=== PATIENT | male | born 1960 | race Caucasian/White ===

== ENCOUNTER 2018-05-17 08:20 | Inpatient (IN) | payer MEDICAID, SELFPAY ==
[2018-05-17] VITALS (22 sets, daily range): BP systolic 118–176; BP diastolic 56–88; PULSE 43–91; RESP 16–23; TEMP 36.3–37.1; O2SAT 90–100; BMI 31.3
--- NOTE | 2018-05-17 08:39 | EKG12_ITS ---
Test Reason : SOB Blood Pressure : / mmHG Vent. Rate : 043 BPM Atrial Rate : 043 BPM P-R Int : 154 ms QRS Dur : 098 ms QT Int : 516 ms P-R-T Axes : 062 030 045 degrees QTc Int : 436 ms Marked sinus bradycardia with 2:[address] abnormality Abnormal ECG Confirmed by IMANI GILLILAND, RADHA ([id number]), story editor MACIEL FOLEY ([id number]) on 05/21/2018 1:29:59 PM Referred By: MIKALA Confirmed By:RADHA DIALLO MD
[2018-05-17] MEDS: Ipratropium/Albuterol Sulfate 3 ML AMPUL.NEB INHALATION (08:52)
[2018-05-17 08:58] LABS: Absolute Lymphocyte Count 1.37 X10^3/ul (0.83-4.51); Absolute Neutrophil Count 6.4 X10^3/uL (2.0-7.7); Basophil# 0.03 X10^3/uL; Basophil% 0.4 % (0-1); Eosinophil# 0.07 X10^3/uL; Eosinophils% 0.8 % (0-5); Hematocrit 31.2 % (40-54); Hemoglobin 11.1 g/dl (13.0-16.5); Lymphocyte # 1.37 X10^3/ul (4.0); Lymphocyte % 16.1 % (19-41); Mean Corp Hgb Conc 35.6 g/gl (32-36); Mean Corpuscular Hgb 31.3 pg (27.0-32.0); Mean Corpuscular Volume 87.9 fL (80-94); Mean Platelet Vol. 10.1 fl (6.2-12.0); Monocyte# 0.55 X10^3/uL; Monocyte% 6.5 % (0-10); Neutrophil # 6.41 X10^3/uL (2.7-7.7); Neutrophil % 75.4 % (47-70); POSITIVE COUNT NO; POSITIVE DIFFERENTIAL NO; POSITIVE MORPHOLOGY NO; Platelet Count 255 K/mm3 (150-450); RBC Distribution Width CV 11.5 % (11.6-14.6); RBC Distribution Width SD 37.2 fl (35.1-43.9); Red Blood Count 3.55 M/mm3 (4.6-6.2); White Blood Count 8.5 K/mm3 (4.4-11.0)
--- NOTE | 2018-05-17 09:10 | RAD_ITS ---
STUDY: X-RAY CHEST REASON FOR EXAM: Male, 57 years old. Dyspnea TECHNIQUE: PA and lateral views of the chest. COMPARISON: None. FINDINGS: Parenchymal airspace process of the right posterior lower lobe. Minimal blunting of the right costophrenic angle. There is mild cardiac enlargement. Normal mediastinum and sg. Mild central pulmonary vascular congestion and interstitial densities suggesting chronic CHF. EKG leads project over the chest. There is atherosclerotic calcification of the aortic arch with tortuosity. There are diffuse degenerative changes of the visualized thoracic spine. Old compression deformity of L1 is noted. There is no demonstrated abnormality of the visualized soft tissue structures of the upper abdomen. RAD/Chest PA and Lateral IMPRESSION: Right lower lobe airspace disease with trace effusion, suggesting pneumonia. Suspect underlying chronic CHF. Electronically Signed: Dylan Garrett MD at 9:28 EST , Service support ,
[2018-05-17 09:19] LABS: Anion Gap 13 (5-15); BUN 21 mg/dL (7-18); BUN/Creat Ratio 15.3 RATIO (10-20); Calcium,Total 7.9 mg/dL (8.5-10.1); Chloride 82 mmol/L (98-107); Creatinine, Serum 1.37 mg/dL (0.70-1.30); EST Glomerular Filtration Rate 56 mL/min (>60); Est Glom Filt Rate - Afr Amer 68 mL/min (>60); Estimated Creatinine Clearance 65.61 ml/min; Glucose 127 mg/dL (74-106); Potassium 4.4 mmol/L (3.5-5.1); Sodium Level 115 mmol/L (136-145)
[2018-05-17 09:20] LABS: D-Dimer Quantitative (DVT/PE) 2.49 FEU/ug/m (0.27-0.49)
--- NOTE | 2018-05-17 09:23 | CT_ITS ---
STUDY: CTA CHEST REASON FOR EXAM: Male, 57 years old. Dyspnea RADIATION DOSAGE (If Supplied By Facility): CTDIvol = ( 18.38 ) mGy, DLP = ( 771.10 ) mGycm TECHNIQUE: The examination was performed with the intravenous administration of 100 ml of Isovue 370 contrast material. Post-processing of the angiographic images was performed, with multiplanar reformation and 3D reconstruction. Individualized dose optimization techniques were used for this CT. COMPARISON: None. FINDINGS: Normal enhancement of the main pulmonary artery and right and left pulmonary arteries. Normal enhancement of the bilateral peripheral pulmonary arteries. There is no demonstrated pulmonary embolism. Mild atherosclerosis without evidence of aneurysm. There is no demonstrated aortic dissection. There is mild cardiomegaly. There are calcifications of the coronary arteries. Normal mediastinum. Mildly prominent lymph nodes of the right hilum likely reactive with largest lymph node measuring 1.4 cm in short axis. There is peribronchial thickening. The lungs are well expanded. There is airspace consolidation involving the right lower lobe, as suggested on x-ray from earlier today. Minimal reticulation and opacity in the posterior left lower lobe may represent atelectasis versus localized pneumonitis/infection. No cavitating process. Small right and trace left pleural effusions are demonstrated. Normal chest wall structures. There are degenerative changes of thoracic spine. Normal visualized upper abdomen. CT/CTA Chest W/WO Contrast IMPRESSION: 1. No central or segmental pulmonary embolism. 2. Right more than left lower lobe infiltrates compatible with pneumonia or localized pulmonary edema or atelectasis. 3. Small right and trace left pleural effusions. Mild cardiomegaly. Suspect chronic CHF. Electronically Signed: Dylan Garrett MD at 10:09 EST , Service support ,
[2018-05-17 09:29] LABS: BNP,B-Type NATRIURETIC PEPTIDE 555.8 pg/mL (0-100)
--- NOTE | 2018-05-17 10:31 | ED.DCSUM_ITS ---
- ER Visit Summary Date of Service: 05/17/18 Chief Complaint: [Shortness of breath] History of Present Illness: The patient is a 57 M [presents to the emergency department with worsening shortness of breath over the last 3 days. Patient states that he has been using his girlfriends inhaler without much relief. Patient's been coughing up some white phlegm at times. He is not had a fever. Patient did have travel to [place] by airplane around Nieves time. Patient denies any chest pain other than just some heaviness from his lungs and feeling like he cannot breathe. Patient does not have a history of asthma or COPD. Patient has not had CHF. He does have a history of diabetes and hypertension.] Physical Examination: [HEENT-PERRLA, EOMI. Cranial nerves II through XII grossly intact. TMs clear. Mucous membranes moist. No adenopathy. Patient is noted to have JVD. Cardiovascular-regular and bradycardic with heart rate in the 40s. No murmurs auscultated. Lungs-few rales noted in the bases. No accessory muscle use or retractions. No wheezing noted. Abdomen-normoactive bowel sounds, soft, nontender, no rebound or rigidity, no peritoneal signs. Extremities-intact ?4, normal range of motion, normal pulses, atraumatic. Patient has +2 edema both lower extremities but symmetric.] Test Results: [EKG obtained showed sinus tachycardia with a ventricular rate of 43 bpm with some nonspecific ST changes. CBC with differential showing of 8.5, hemoglobin 11, hematocrit 31, placed 255. Chemistry showed a sodium of 115, potassium 4.4, chloride 82, CO2 20, BUN 21, creatinine 1.37, glucose 127, d- dimer 2.49, troponin 0.034. Chest x-ray showed some cardiomegaly and suspected chronic CHF. Could not rule out pneumonia. Patient had a CTA given the elevated d-dimer which showed no evidence for PE and again was noted to have increased markings in both lungs and cannot rule out CHF versus pneumonia versus atelectasis.] Emergency Department Course and Treatment: [Given patient's hyponatremia and peripheral edema I suspect CHF as the etiology of his symptomatology.] Treatment Plan: [Admit for diuresis and further evaluation of CHF] Disposition: [Admit] Impression: [CHF Hypoxia Hyponatremia] This note was generated with Dragon dictation software. It may contain incorrect words, spelling, and punctuation that were not noted in review of the chart prior to signing ED Disposition - Plan for ED Patient: Referrals: Delgado Smith [Primary Care Provider] -
--- NOTE | 2018-05-17 10:59 | HP.PCM_ITS ---
Problem List (1) Dyspnea Status: Acute Qualifiers: Dyspnea type: dyspnea on exertion Qualified Code(s): R06.09 - Other forms of dyspnea (2) CHF (congestive heart failure) Status: Acute Qualifiers: Heart failure chronicity: unspecified (3) Essential hypertension Status: Chronic (4) DM2 (diabetes mellitus, type 2) Status: Chronic History of Present Illness Date of Admission: 05/17/18 Chief Complaint: Shortness of breath The patient is a 57 year old M past medical history significant for hypertension, diabetes mellitus type 2 who presented with shortness of breath. Patient symptoms started 4 days prior to his admission. He is noticed increasin g shortness of breath with minimal activity. Patient also did notice swelling involving both lower extremities. Patient did report noticing intermittent swelling involving both lower extremities. On further questioning patient denied any recent travel. Denies any fever no chills had a cough which is nonproductive. In view of worsening symptoms patient presented to the emergency department. She was found to have a an elevated d-dimer CTA of the chest obtained subsequently demonstrated Mo central or segmental pulmonary embolism. Right more than left lower lobe infiltrates compatible with pneumonia or localized pulmonary edema or atelectasis. Small right and trace left pleural effusions. Mild cardiomegaly. Patient was also found to be hyponatremic with sodium level of 127 admitted to a monitored bed for subsequent management. Past Medical History Past Medical History (Chronic Problems): Chronic Problems Essential hypertension (Chronic) DM2 (diabetes mellitus, type 2) (Chronic) Allergies Penicillins [PCN] Allergy (Verified 05/17/18 08:20) Unknown Home Medications: Ambulatory Orders Medication Instructions Recorded Amlodipine [Norvasc] 5 mg PO DAILY 05/17/18 Benazepril/Hydrochlorothiazide 1 each PO BID 05/17/18 [Benazepril-Hctz 10-12.5 mg Tab] Glimepiride [Amaryl] 2 mg PO DAILY 05/17/18 Smoking Status: Never smoker - *Family History Maternal History Items: Diabetes Review of Systems Constitutional: Denies: Anorexia, Chills, Fever, Night Sweats, Weight Change HEENT: Denies: Head Aches, Sinus Congestion, Sinus Drainage Cardiovascular: Reports: Edema. Denies: Chest Pain, Orthopnea Respiratory: Reports: Cough, Shortness of Breath Gastrointestinal: Denies: Abdominal Pain, Hematemesis, Hematochezia, Nausea, Melena, Vomiting Genitourinary: Denies: Dysuria, Frequency, Hematuria, Urgency Musculoskeletal: Denies: Joint Pain, Joint Tenderness Skin: Denies: Rash Neurological: Denies: Focal weakness, Numbness, Tingling Psychiatric: Denies: Homicidal Ideations, Suicidal Ideations Hematologic/ Lymphatic: Denies: Easy Bruising, Easy Bleeding VTE Information - Inpt Only VTE Present on Admission: No VTE Mechan Device Prophylaxis: Knee High OPAL Hose VTE Pharm Prophylaxis ordered?: Yes Patient Problems: Active and Suspected Problems Dyspnea (Acute) CHF (congestive heart failure) (Acute) Objective: GENERAL: cooperative HEENT: Atraumatic; moist oral mucosa EYES; Anicteric, Normal Conjunctiva NECK; supple, normal thyroid, RESPIRATORY: Diminished to auscultation bilaterally, CARDIOVASCULAR: Regular S1 S2, no audible murmurs GI: soft, non-tender, normoactive bowel sounds, : No Renal angle tenderness; EXTREMITIES: 1+ bipedal edema, no clubbing, no cyanosis. MUSCULOSKELETAL: No Joint Tenderness; NEURO: Awake; no lateralizing signs. SKIN: No Rash PSYCH; Normal affect - Physical Exam Vital Signs Temp Pulse Resp BP Pulse Ox 98.3 F 46 L 20 H 174/79 H 96 05/17/18 10:31 05/17/18 10:31 05/17/18 10:31 05/17/18 10:31 05/17/18 10:31 Oxygen Flow Rate (L/min) 4 Oxygen Delivery Method Nasal Cannula Weight: 107.8 kg Body Mass Index (BMI) 31.3 Laboratory Tests Past 24 Hrs 05/17/18 05/17/18 05/17/18 08:40 08:40 08:40 WBC 8.5 RBC 3.55 L Hgb 11.1 L Hct 31.2 L MCV 87.9 MCH 31.3 MCHC 35.6 RDW 11.5 L RDW Differential 37.2 Plt Count 255 MPV 10.1 Immature Gran % (Auto) 0.800 Neut % (Auto) 75.4 H Lymph % (Auto) 16.1 L [place] % (Auto) 6.5 Eos % (Auto) 0.8 Baso % (Auto) 0.4 Absolute Neuts (auto) 6.4 Absolute Lymphs (auto) 1.37 Total Counted Not Reportable D-Dimer Quant (PE/DVT) 2.49 H* Sodium 115 L* Potassium 4.4 Chloride 82 L Carbon Dioxide 20.0 L Anion Gap 13 BUN 21 H Creatinine 1.37 H Estim Creat Clear Calc 65.61 Est GFR (MDRD) Af Amer 68 Est GFR (MDRD) Non-Af 56 L BUN/Creatinine Ratio 15.3 Glucose 127 H Calcium 7.9 L Troponin I 0.034 B-Natriuretic Peptide 05/17/18 08:40 WBC RBC Hgb Hct MCV MCH MCHC RDW RDW Differential Plt Count MPV Immature Gran % (Auto) Neut % (Auto) Lymph % (Auto) [place] % (Auto) Eos % (Auto) Baso % (Auto) Absolute Neuts (auto) Absolute Lymphs (auto) Total Counted D-Dimer Quant (PE/DVT) Sodium Potassium Chloride Carbon Dioxide Anion Gap BUN Creatinine Estim Creat Clear Calc Est GFR (MDRD) Af Amer Est GFR (MDRD) Non-Af BUN/Creatinine Ratio Glucose Calcium Troponin I B-Natriuretic Peptide 555.8 H Assessment/Plan All Active Problems Dyspnea (Acute) CHF (congestive heart failure) (Acute) Patient is a 57-year-old gentleman presented with progressive shortness of breath and peripheral edema 1. Suspected acute congestive heart failure (unspecified at this point). Patient has been admitted to a monitored bed placed on strict input and output, daily weight, fluid restriction and IV Lasix. Echo ordered for EF assessment 2. Essential hypertension: In view of patient peripheral edema his amlodipine was held. Patient also had hyponatremia HCTZ held and did continue with lisinopril 3. Hyponatremia attributed to his fluid overload status as well as patient being on HCTZ. Patient has been placed on fluid restriction, Lasix and HCTZ held as a result 4. History of basal cell carcinoma involving the forehead as well as left cheek with previous excision 5. Diabetes mellitus type II: Controlled, patient's oral hypoglycemics held. Placed ON Accu-Cheks a.c. and at bedtime and covered with sliding scale insulin 6. DVT prophylaxis SC Lovenox Code Visit Inpatient E&M: 53936 Init Hosp L3
--- NOTE | 2018-05-17 11:22 | ECHOD_ITS ---
Reason For Study: CHF Procedure This was a 2D Doppler, Color Flow transthoracic echocardiogram. Exam performed portable in ICU/CCU. Left Ventricle Normal LV size. Moderate concentric left ventricular hypertrophy. Left ventricular systolic function is normal. The estimated ejection fraction is 65 %. Transmitral diastolic flow velocities suggest severe (stage 3) diastolic dysfunction. No regional wall motion abnormalities noted. Right Ventricle Normal RV size. Normal systolic function. Atria The left atrium is moderately enlarged. The right atrium is moderately enlarged. Mitral Valve There is mild mitral annular calcification. Mild (1+) eccentric mitral valve insufficiency. Tricuspid Valve Normal tricuspid valve. Unable to estimate RV systolic pressure due to inadequate jet, pulmonary artery pressure probably normal. Aortic Valve Trisinus/trileaflet aortic valve. Mild focal aortic valve calcification. Pulmonic Valve Normal pulmonic valve. Great Vessels Normal aortic root. The pulmonary artery is normal size. Normal inferior vena cava. Pericardium/Pleural No pericardial effusion. MMode/2D Measurements & Calculations LVIDd: 5.0 cm IVSd: 1.5 cm LVOT diam: 2.1 cm LVIDs: 3.1 cm LVPWd: 1.2 cm LVOT area: 3.4 cm2 RVDd: 4.5 cm FS: 38.5 % Ao root diam: 3.6 cm LAV(MOD-bp): 103.5 ml LA A4 area: 28.8 cm2 LA dimension: 4.9 cm LAV(MOD-bp) Indexed: 44.7 ml/m2 LAV(MOD-sp2): 100.3 ml LAV(MOD-sp4): 90.4 ml RA A4 area: 29.1 cm2 Time Measurements MV dec time: 0.20 sec Doppler Measurements & Calculations MV E max [place]: 186.1 cm/sec Lat Peak E' [place]: 13.6 cm/sec Med Peak E' [place]: 8.1 cm/sec MV A max [place]: 97.3 cm/sec E/E' lat: 13.7 E/E' med: 23.0 MV E/A: 1.9 Ao V2 max: 169.5 cm/sec LV V1 max: 142.3 cm/sec SV(LVOT): 109.2 ml Ao max P.5 mmHg LV V1 max P.1 mmHg Ao V2 mean: 106.2 cm/sec LV V1 mean P.6 mmHg Ao mean P.3 mmHg LV V1 mean: 86.6 cm/sec Ao V2 VTI: 33.9 cm LV V1 VTI: 32.2 cm ROSELINE(I,D): 3.2 cm2 ROSELINE(V,D): 2.8 cm2 PA V2 max: 103.8 cm/sec Interpretation Summary Normal LV size. Moderate concentric left ventricular hypertrophy. Left ventricular systolic function is normal. The estimated ejection fraction is 65 %. Transmitral diastolic flow velocities suggest severe (stage 3) diastolic dysfunction Mild focal aortic valve calcification. Ordering Physician: Ruslan Enciso Referring Physician: Delgado Smith Performed By: Victor Manuel South RCS
[2018-05-17 12:30] LABS: Magnesium 1.3 mg/dL (1.6-2.6); Thyroid Stim Hormone (TSH) 1.62 uIU/mL (0.358-3.74)
[2018-05-17] MEDS: Insulin Lispro 100 UNIT/ML INSULN.PEN SQ ×2 (12:31→21:10)
[2018-05-17 12:32] LABS: BNP,B-Type NATRIURETIC PEPTIDE 615.7 pg/mL (0-100)
[2018-05-17] MEDS: Furosemide 40 MG/4 ML Vial IV ×2 (12:32→21:10)
[2018-05-17 12:41] LABS: Bedside Glucose 158 mg/dL (70-110)
--- NOTE | 2018-05-17 15:23 | CM.UR ---
software developer intern completed. Met face to face with patient, introduced myself and explained my role. They were preparing to transfer him to ICU d/t heart block. He anticipated going home without any needs. Instructed cm will remain available and follow him throughout hosp stay for an needs that may arise. Currently on o2 and has no o2 at home. Manish Collier RN, CCM.
[2018-05-17] MEDS: Sodium Chloride 3% 500 ML 50 ML IV (15:44)
[2018-05-17 15:49] LABS: Anion Gap 13 (5-15); BUN 23 mg/dL (7-18); BUN/Creat Ratio 16.4 RATIO (10-20); Calcium,Total 7.8 mg/dL (8.5-10.1); Chloride 85 mmol/L (98-107); EST Glomerular Filtration Rate 55 mL/min (>60); Est Glom Filt Rate - Afr Amer 67 mL/min (>60); Estimated Creatinine Clearance 64.21 ml/min; Glucose 165 mg/dL (74-106); Potassium 4.5 mmol/L (3.5-5.1); Sodium Level 119 mmol/L (136-145)
--- NOTE | 2018-05-17 16:57 | CON.PCM_ITS ---
Problem List (1) Dyspnea Status: Acute Qualifiers: Dyspnea type: dyspnea on exertion Qualified Code(s): R06.09 - Other forms of dyspnea Reason for Consult Date of Consultation: 05/17/18 History of Present Illness: The patient is a 57 year old M past medical history significant for hypertension and diabetes mellitus. He presented to the emergency room with complaints of increasing shortness of breath over the last 2-3 days. According to the patient, he is also been having some cough with production of whitish phlegm. Has any fevers or chills. Denies any orthopnea however he does report some paroxysmal nocturnal dyspnea. Also complaining of increasing ankle edema. No cold or flulike symptoms. He denies any chest pains. He has occasional pressure with his shortness of breath. According to the patient, he has been feeling increasingly fatigued over the last 6 months. No heat or cold intolerance. Denies any exertional angina. [] Past Medical History Allergies/Adverse Reactions: Allergies Penicillins [PCN] Allergy (Verified 05/17/18 08:20) Unknown Home Medications: Ambulatory Orders Medication Instructions Recorded Amlodipine [Norvasc] 5 mg PO DAILY 05/17/18 Benazepril/Hydrochlorothiazide 1 each PO BID 05/17/18 [Benazepril-Hctz 10-12.5 mg Tab] Glimepiride [Amaryl] 2 mg PO DAILY 05/17/18 Past Medical History (Chronic Problems): Chronic Problems Essential hypertension (Chronic) DM2 (diabetes mellitus, type 2) (Chronic) - *Family History Maternal History Items: Diabetes Smoking Status: Never smoker Tobacco Use: Non-smoker, Secondhand Review of Systems - Review of Systems General: Reports: Fatigue. Denies: Fever, Chills, Weight Loss Cardiovascular: Reports: Chest Pressure, Shortness of Breath, Shortness of Breath at Rest, Shortness of Breath with Exertion, PND, Peripheral Edema. Denies: Orthopnea, Palpitations, Lightheadedness, Dizziness, Near Syncope, Syncope Respiratory: Reports: Cough, Shortness of Breath. Denies: Hemoptysis, Wheezing Gastrointestinal: Denies: Abdominal Discomfort, Jaundice, Nausea, Hematemesis Muscoloskeletal: Denies: Myalgias Skin: Denies: Rash Neurological: Denies: Dizziness, Vertigo, History of TIA, History of CVA Endocrine: Denies: Heat Intolerance, Cold Intolerance Hematologic/ Lymphatic: Denies: Easy Brusing, Easy Bleeding Subjectve: Appears comfortable. No apparent distress. Objective: Vital Signs Temp Pulse Resp BP Pulse Ox 98.5 F 55 L 19 H 173/70 H 92 05/17/18 15:45 05/17/18 16:30 05/17/18 16:30 05/17/18 16:30 05/17/18 16:30 Oxygen Flow Rate (L/min) 2 Oxygen Delivery Method Nasal Cannula Weight: 107.683 kg Body Mass Index (BMI) 31.3 Intake and Output for Last 24 Hours 05/15/18 05/16/18 05/17/18 23:59 23:59 23:59 Output Total 700 / 700 Balance -700 / -700 General: Healthy Appearing, Awake, Alert, Oriented x 3, No Acute Distress HEENT: Atraumatic, Normocephalic Oral: Moist Mucosa Neck: Positive JVD Lungs: Rales - Brian Bases Cardiovascular: Irregular Rhythm, Normal S1, Normal S2 Abdomen: Bowel Sounds Present, Soft, Non Tender Extremities: Bilateral Edema +3 Neurological: No Focal Motor or Sensory Deficit Psych/Mental Status: Appropriate 05/17/18 08:40: WBC 8.5, RBC 3.55 L, Hgb 11.1 L, Hct 31.2 L, MCV 87.9, MCH 31.3, MCHC 35.6, RDW 11.5 L, RDW Differential 37.2, Plt Count 255, MPV 10.1, Immature Gran % (Auto) 0.800, Neut % (Auto) 75.4 H, Lymph % (Auto) 16.1 L, [place] % (Auto) 6.5, Eos % (Auto) 0.8, Baso % (Auto) 0.4, Absolute Neuts (auto) 6.4, Total Counted Not Reportable 05/17/18 08:40: D-Dimer Quant (PE/DVT) 2.49 H* 05/17/18 08:40: Sodium 115 L*, Potassium 4.4, Chloride 82 L, Carbon Dioxide 20.0 L, Anion Gap 13, BUN 21 H, Creatinine 1.37 H, Est GFR (MDRD) Af Amer 68, Est GFR (MDRD) Non-Af 56 L, BUN/Creatinine Ratio 15.3, Glucose 127 H, Calcium 7.9 L, Troponin I 0.034 05/17/18 08:40: B-Natriuretic Peptide 555.8 H 05/17/18 11:51: Magnesium 1.3 L 05/17/18 11:51: B-Natriuretic Peptide 615.7 H 05/17/18 11:51: Troponin I 0.035 05/17/18 14:40: Troponin I 0.033 05/17/18 14:40: Sodium 119 L*, Potassium 4.5, Chloride 85 L, Carbon Dioxide 21.0, Anion Gap 13, BUN 23 H, Creatinine 1.40 H, Est GFR (MDRD) Af Amer 67, Est GFR (MDRD) Non-Af 55 L, BUN/Creatinine Ratio 16.4, Glucose 165 H, Calcium 7.8 L Rhythm: Normal sinus rhythm. Second-degree AV block type I [place]. EKG: Normal sinus rhythm with second-degree type I [place] AV block. Nonspecific ST changes ECHO: Stress Test: Cardiac Cath: PCI: CT Surgery: Holter monitor: EPS: PPM: CXR: Suggestive of chronic CHF. Also right-sided consolidation. Chest CT Scan: Right-sided consolidation. No PE. Assessment/Plan 1. Dyspnea. Multifactorial. CHF with possible pneumonia. Next 2. Congestive heart failure. Agree with diuresis. Echocardiogram already ordered. Further workup in light of echocardiographic results. 3. Sick sinus syndrome. Initial EKG in the emergency room showed second-degree AV block type II. However the conduction has improved to second-degree type I [place] block. Amlodipine could certainly cause conduction abnormalities. Stop amlodipine. Monitor. Check TSH. Correct electrolyte abnormalities. Avoid negative chronotropic agents. 4. Pneumonia. Both x-ray and CT scan suggestive of right-sided consolidation. Consider starting on antibiotics. Follow as per internal medicine. 5. Coronary artery disease. CT scan of the same chest shows coronary arterial calcifications. Start on aspirin. If the LV function is normal on echocardiography, then will recommend a stress test. However if the LV function is compromised, then will consider cardiac catheterization with coronary angiography. 6. Hypertension. Hold amlodipine. Agree with holding hydrochlorothiazide. St arted on furosemide. Monitor sodium. 7. Marked hyponatremia. Could be result of pneumonia versus fluid volume overload with congestive heart failure. Started on furosemide. Monitor potassium. 8. Diabetes mellitus. 9. Start on statins in view of coronary artery disease with coronary calcifications noted on CT scan of the chest. Target LDL cholesterol less than 100 mg/dL. 10. Mild renal insufficiency
--- NOTE | 2018-05-17 17:16 | EKG12_ITS ---
Test Reason : Blood Pressure : / mmHG Vent. Rate : 065 BPM Atrial Rate : 065 BPM P-R Int : 226 ms QRS Dur : 098 ms QT Int : 438 ms P-R-T Axes : 036 029 067 degrees QTc Int : 455 ms Sinus rhythm with 1st degree A-V block Otherwise normal ECG When compared with ECG of 18-MAY-2018 07:38, MANUAL COMPARISON REQUIRED, DATA IS UNCONFIRMED Confirmed by IMANI GILLILAND, RADHA ([id number]), editor dictionary MACIEL FOLEY ([id number]) on 05/21/2018 2:35:53 PM Referred By: Confirmed By:RADHA DIALLO MD
[2018-05-17 17:46] LABS: Bedside Glucose 141 mg/dL (70-110)
[2018-05-17 17:57] LABS: ALB/GLOB Ratio 0.8 RATIO (0.9-2.4); AST(SGOT) 43 U/L (15-37); Alanine Aminotransfer ALT/SGPT 35 U/L (16-61); Alkaline Phosphatase 109 U/L (45-117); Globulin 3.9 g/dL (2.2-4.2); Protein, Total 6.9 g/dL (6.4-8.2)
[2018-05-17] MEDS: Aspirin E.C. 81 MG Tablet PO (18:46)
[2018-05-17] MEDS: 0.9% NaCl Peripheral Flush Adult/Peds IV ×2 (18:46→21:11)
[2018-05-17 19:35] LABS: Anion Gap 10 (5-15); BUN 24 mg/dL (7-18); BUN/Creat Ratio 16.7 RATIO (10-20); Calcium,Total 7.8 mg/dL (8.5-10.1); Chloride 88 mmol/L (98-107); Creatinine, Serum 1.44 mg/dL (0.70-1.30); EST Glomerular Filtration Rate 53 mL/min (>60); Est Glom Filt Rate - Afr Amer 64 mL/min (>60); Estimated Creatinine Clearance 62.42 ml/min; Glucose 175 mg/dL (74-106); Potassium 4.4 mmol/L (3.5-5.1); Sodium Level 121 mmol/L (136-145)
[2018-05-17] MEDS: Lisinopril 5 MG Tablet PO (21:10)
[2018-05-17] MEDS: Atorvastatin Calcium 20 MG Tablet PO (21:10)
[2018-05-17 21:26] LABS: Bedside Glucose 160 mg/dL (70-110)
[2018-05-18] VITALS (35 sets, daily range): BP systolic 132–200; BP diastolic 42–91; PULSE 44–91; RESP 13–67; TEMP 36.8–37; O2SAT 84–98
[2018-05-18 00:06] LABS: Anion Gap 11 (5-15); BUN 23 mg/dL (7-18); BUN/Creat Ratio 18.3 RATIO (10-20); Calcium,Total 6.9 mg/dL (8.5-10.1); Chloride 98 mmol/L (98-107); Creatinine, Serum 1.26 mg/dL (0.70-1.30); EST Glomerular Filtration Rate 62 mL/min (>60); Est Glom Filt Rate - Afr Amer 75 mL/min (>60); Estimated Creatinine Clearance 71.34 ml/min; Glucose 104 mg/dL (74-106); Potassium 3.9 mmol/L (3.5-5.1); Sodium Level 130 mmol/L (136-145)
[2018-05-18 03:34] LABS: Hematocrit 27.8 % (40-54); Mean Corpuscular Volume 89.4 fL (80-94); Mean Platelet Vol. 10.3 fl (6.2-12.0); Platelet Count 247 K/mm3 (150-450); RBC Distribution Width CV 11.2 % (11.6-14.6); RBC Distribution Width SD 35.2 fl (35.1-43.9); Red Blood Count 3.11 M/mm3 (4.6-6.2); White Blood Count 9.3 K/mm3 (4.4-11.0)
[2018-05-18 03:48] LABS: Hemoglobin 10.2 g/dl (13.0-16.5); Mean Corp Hgb Conc 36.7 g/gl (32-36); Mean Corpuscular Hgb 32.8 pg (27.0-32.0); Scan Indicated on CBC? Y/N NO
[2018-05-18 03:57] LABS: Anion Gap 12 (5-15); BUN 25 mg/dL (7-18); BUN/Creat Ratio 18.5 RATIO (10-20); Calcium,Total 8.3 mg/dL (8.5-10.1); Chloride 90 mmol/L (98-107); Creatinine, Serum 1.35 mg/dL (0.70-1.30); EST Glomerular Filtration Rate 57 mL/min (>60); Est Glom Filt Rate - Afr Amer 69 mL/min (>60); Estimated Creatinine Clearance 66.58 ml/min; Glucose 116 mg/dL (74-106); Potassium 4.4 mmol/L (3.5-5.1); Sodium Level 128 mmol/L (136-145)
[2018-05-18] MEDS: 0.9% NaCl Peripheral Flush Adult/Peds IV ×5 (05:54→16:38)
[2018-05-18] MEDS: Furosemide 40 MG/4 ML Vial IV ×3 (05:54→21:20)
[2018-05-18 06:41] LABS: Bedside Glucose 132 mg/dL (70-110)
[2018-05-18 07:56] LABS: Anion Gap 12 (5-15); BUN 22 mg/dL (7-18); BUN/Creat Ratio 16.5 RATIO (10-20); Calcium,Total 8.6 mg/dL (8.5-10.1); Chloride 93 mmol/L (98-107); Creatinine, Serum 1.33 mg/dL (0.70-1.30); EST Glomerular Filtration Rate 58 mL/min (>60); Est Glom Filt Rate - Afr Amer 71 mL/min (>60); Estimated Creatinine Clearance 67.58 ml/min; Glucose 122 mg/dL (74-106); Potassium 4.6 mmol/L (3.5-5.1); Sodium Level 129 mmol/L (136-145)
--- NOTE | 2018-05-18 08:36 | PCM.PN.HOSP ---
Patient Problems: Active and Suspected Problems Dyspnea (Acute) CHF (congestive heart failure) (Acute) Subjective: Patient is a 57-year-old gentleman presented with progressive shortness of breath and peripheral edema. An assessment of acute congestive heart failure was made patient admitted to a monitored bed for subsequent management. Patient was also found to have significant electrolyte abnormalities including hyponatremia with sodium level of 119 which was attributed to patient fluid overload status as well as patient being on HCTZ. Was on telemetry patient was found to have developed high degree AV block cardiology consulted patient transferred to intensive care unit. Plans to initiate hypertonic saline following development of patient high degree AV block was discontinued since patient sodium levels did improve with diuresis. Objective: GENERAL: cooperative HEENT: Atraumatic; moist oral mucosa EYES; Anicteric, Normal Conjunctiva NECK; supple, normal thyroid, RESPIRATORY: Diminished to auscultation bilaterally, CARDIOVASCULAR: Regular S1 S2, no audible murmurs GI: soft, non-tender, normoactive bowel sounds, : No Renal angle tenderness; EXTREMITIES: 1+ bipedal edema, no clubbing, no cyanosis. MUSCULOSKELETAL: No Joint Tenderness; NEURO: Awake; no lateralizing signs. SKIN: No Rash PSYCH; Normal affect Vitals/I&O's: Vital Signs Temp Pulse Resp BP Pulse Ox 98.3 F 44 L 16 147/60 H 98 05/18/18 04:00 05/18/18 07:00 05/18/18 06:00 05/18/18 06:00 05/18/18 06:00 Oxygen Flow Rate (L/min) 2 Oxygen Delivery Method Nasal Cannula Weight: 103.5 kg Body Mass Index (BMI) 31.3 Intake and Output for Last 24 Hours 05/16/18 05/17/18 05/18/18 23:59 23:59 23:59 Intake Total 775 / 775 Output Total 2900 / 2900 1725 / 1725 Balance -2125 / -2125 -1725 / -1725 Laboratory Results 05/17/18 08:40: WBC 8.5, RBC 3.55 L, Hgb 11.1 L, Hct 31.2 L, MCV 87.9, MCH 31.3, MCHC 35.6, RDW 11.5 L, RDW Differential 37.2, Plt Count 255, MPV 10.1, Immature Gran % (Auto) 0.800, Neut % (Auto) 75.4 H, Lymph % (Auto) 16.1 L, [place] % (Auto) 6.5, Eos % (Auto) 0.8, Baso % (Auto) 0.4, Absolute Neuts (auto) 6.4, Absolute Lymphs (auto) 1.37, Total Counted Not Reportable 05/17/18 08:40: D-Dimer Quant (PE/DVT) 2.49 H* 05/17/18 08:40: Sodium 115 L*, Potassium 4.4, Chloride 82 L, Carbon Dioxide 20.0 L, Anion Gap 13, BUN 21 H, Creatinine 1.37 H, Estim Creat Clear Calc 65.61, Est GFR (MDRD) Af Amer 68, Est GFR (MDRD) Non-Af 56 L, BUN/Creatinine Ratio 15.3, Glucose 127 H, Calcium 7.9 L, Troponin I 0.034 05/17/18 08:40: B-Natriuretic Peptide 555.8 H 05/17/18 11:51: Magnesium 1.3 L, TSH 1.62 05/17/18 11:51: B-Natriuretic Peptide 615.7 H 05/17/18 11:51: Troponin I 0.035 05/17/18 12:30: POC Glucose 158 H 05/17/18 14:40: Troponin I 0.033 05/17/18 14:40: Sodium 119 L*, Potassium 4.5, Chloride 85 L, Carbon Dioxide 21.0, Anion Gap 13, BUN 23 H, Creatinine 1.40 H, Estim Creat Clear Calc 64.21, Est GFR (MDRD) Af Amer 67, Est GFR (MDRD) Non-Af 55 L, BUN/Creatinine Ratio 16.4, Glucose 165 H, Calcium 7.8 L, Total Bilirubin 0.60, AST 43 H, ALT 35, Alkaline Phosphatase 109, Total Protein 6.9, Albumin 3.0 L, Globulin 3.9, Albumin/Globulin Ratio 0.8 L 05/17/18 17:42: POC Glucose 141 H 05/17/18 19:00: Sodium 121 L, Potassium 4.4, Chloride 88 L, Carbon Dioxide 23.0, Anion Gap 10, BUN 24 H, Creatinine 1.44 H, Estim Creat Clear Calc 62.42, Est GFR (MDRD) Af Amer 64, Est GFR (MDRD) Non-Af 53 L, BUN/Creatinine Ratio 16.7, Glucose 175 H, Calcium 7.8 L 05/17/18 21:09: POC Glucose 160 H 05/17/18 23:00: Sodium 130 L, Potassium 3.9, Chloride 98, Carbon Dioxide 21.0, Anion Gap 11, BUN 23 H, Creatinine 1.26, Estim Creat Clear Calc 71.34, Est GFR (MDRD) Af Amer 75, Est GFR (MDRD) Non-Af 62, BUN/Creatinine Ratio 18.3, Glucose 104, Calcium 6.9 L 05/18/18 03:05: WBC 9.3, RBC 3.11 L, Hgb 10.2 L, Hct 27.8 L, MCV 89.4, MCH 32.8 H, MCHC 36.7 H, RDW 11.2 L, RDW Differential 35.2, Plt Count 247, MPV 10.3 05/18/18 03:05: Sodium 128 L, Potassium 4.4, Chloride 90 L, Carbon Dioxide 26.0, Anion Gap 12, BUN 25 H, Creatinine 1.35 H, Estim Creat Clear Calc 66.58, Est GFR (MDRD) Af Amer 69, Est GFR (MDRD) Non-Af 57 L, BUN/Creatinine Ratio 18.5, Glucose 116 H, Calcium 8.3 L 05/18/18 06:35: POC Glucose 132 H 05/18/18 07:10: Sodium 129 L, Potassium 4.6, Chloride 93 L, Carbon Dioxide 24.0, Anion Gap 12, BUN 22 H, Creatinine 1.33 H, Estim Creat Clear Calc 67.58, Est GFR (MDRD) Af Amer 71, Est GFR (MDRD) Non-Af 58 L, BUN/Creatinine Ratio 16.5, Glucose 122 H, Calcium 8.6 Current Medications Acetaminophen (Tylenol) 650 mg PO Q6H PRN PRN PRN Reason: Mild Pain (scale 0-3)/T>100.7 Al Hydroxide/Mg Hydroxide (Mylanta Ii) 30 ml PO Q6H PRN PRN PRN Reason: Gastric burning Aspirin (Ecotrin) 81 mg PO DAILY@0800 [facility] Last Admin: 05/17/18 18:46 Dose: 81 mg Atorvastatin Calcium (Lipitor) 20 mg PO QHS [facility] Last Admin: 05/17/18 21:10 Dose: 20 mg Dextrose (D50w Syringe) 0 gm IV X1 PRN; Protocol PRN Reason: Hypoglycemia Enoxaparin Sodium (Lovenox) 40 mg SC DAILY@1000 PENNIE Furosemide (Lasix) 40 mg IV Q8 [facility] Last Admin: 05/18/18 05:54 Dose: 40 mg Glucagon () 1 mg IM .X1 PRN PRN Reason: Hypoglycemia Hydralazine HCl (Apresoline Iv) 10 mg IV Q4H PRN PRN PRN Reason: for SBP > 150 Insulin Human Lispro (Humalog Kwikpen (Bkc)) 0 unit SQ ACHS [facility]; Protocol Last Admin: 05/18/18 08:16 Dose: Not Given Lisinopril (Zestril) 10 mg PO BID [facility] Magnesium Hydroxide (Milk Of Magnesia) 30 ml PO DAILY PRN PRN Reason: Constipation Morphine Sulfate () 2 - 4 mg IV Q3H PRN PRN PRN Reason: Severe Pain (pain scale 6-10) Morphine Sulfate () 2 - 4 mg IV Q3H PRN PRN PRN Reason: Severe Pain (pain scale 6-10) Oxycodone HCl (Oxyir) 5 mg PO Q4H PRN PRN PRN Reason: Moderate Pain (pain scale 4-5) Psyllium Hydrophilic Mucilloid (Metamucil) 1 packet PO DAILY PRN PRN PRN Reason: CONSTIPATION Sodium Chloride () 5 - 15 ml IV UD PRN PRN Reason: SALINE FLUSH Last Admin: 05/18/18 05:54 Dose: 10 ml Zolpidem Tartrate (Ambien (Generic)) 5 mg PO QHS PRN PRN PRN Reason: INSOMNIA Medical Necessity - Tobacco Use Smoking Status: Never smoker Tobacco Use: Non-smoker, Secondhand Assessment/Plan All Active Problems Dyspnea (Acute) CHF (congestive heart failure) (Acute) Patient is a 57-year-old gentleman presented with progressive shortness of breath and peripheral edema 1. Acute congestive heart failure (unspecified at this point). Patient has been admitted to a monitored bed placed on strict input and output, daily weight, fluid restriction and IV Lasix. Echo ordered for EF assessment 2. High degree AV block with 2-1 conduction. This was attributed to patient electrolyte abnormalities. Transferred to the intensive care unit for close monitoring. Consultation was placed to cardiology patient was being seen by Dr. Galvan had his notes and recommendations reviewed. 2. Essential hypertension: In view of patient peripheral edema his amlodipine was held. Patient also had hyponatremia HCTZ held and did continue with lisinopril. Added as needed hydralazine on the morning of 05/18/2018. 4. Hyponatremia attributed to his fluid overload status as well as patient being on HCTZ. Patient has been placed on fluid restriction, Lasix and HCTZ held as a result. Sodium levels improving. 5. History of basal cell carcinoma involving the forehead as well as left cheek with previous excision 6. Diabetes mellitus type II: Controlled, patient's oral hypoglycemics held. Placed ON Accu-Cheks a.c. and at bedtime and covered with sliding scale insulin 7. Renal failure do suspect some chronicity probably from diabetic nephropathy as well as hypertensive nephrosclerosis renal ultrasound ordered for subsequent evaluation. 8. Obesity with BMI of 30.1 lifestyle modification including weight loss advised 9. DVT prophylaxis SC Lovenox Code Visit Inpatient E&M: [id number] [facility] Hosp L3
--- NOTE | 2018-05-18 08:40 | PN_ITS ---
Patient Problems: Active and Suspected Problems Dyspnea (Acute) CHF (congestive heart failure) (Acute) Subjective: Patient is a 57-year-old gentleman presented with progressive shortness of breath and peripheral edema. An assessment of acute congestive heart failure was made patient admitted to a monitored bed for subsequent management. Patient was also found to have significant electrolyte abnormalities including hyponatremia with sodium level of 119 which was attributed to patient fluid overload status as well as patient being on HCTZ. Was on telemetry patient was found to have developed high degree AV block cardiology consulted patient transferred to intensive care unit. Plans to initiate hypertonic saline following development of patient high degree AV block was discontinued since patient sodium levels did improve with diuresis. Objective: GENERAL: cooperative HEENT: Atraumatic; moist oral mucosa EYES; Anicteric, Normal Conjunctiva NECK; supple, normal thyroid, RESPIRATORY: Diminished to auscultation bilaterally, CARDIOVASCULAR: Regular S1 S2, no audible murmurs GI: soft, non-tender, normoactive bowel sounds, : No Renal angle tenderness; EXTREMITIES: 1+ bipedal edema, no clubbing, no cyanosis. MUSCULOSKELETAL: No Joint Tenderness; NEURO: Awake; no lateralizing signs. SKIN: No Rash PSYCH; Normal affect Vitals/I&O's: Vital Signs Temp Pulse Resp BP Pulse Ox 98.3 F 44 L 16 147/60 H 98 05/18/18 04:00 05/18/18 07:00 05/18/18 06:00 05/18/18 06:00 05/18/18 06:00 Oxygen Flow Rate (L/min) 2 Oxygen Delivery Method Nasal Cannula Weight: 103.5 kg Body Mass Index (BMI) 31.3 Intake and Output for Last 24 Hours 05/16/18 05/17/18 05/18/18 23:59 23:59 23:59 Intake Total 775 / 775 Output Total 2900 / 2900 1725 / 1725 Balance -2125 / -2125 -1725 / -1725 Laboratory Results 05/17/18 08:40: WBC 8.5, RBC 3.55 L, Hgb 11.1 L, Hct 31.2 L, MCV 87.9, MCH 31.3, MCHC 35.6, RDW 11.5 L, RDW Differential 37.2, Plt Count 255, MPV 10.1, Immature Gran % (Auto) 0.800, Neut % (Auto) 75.4 H, Lymph % (Auto) 16.1 L, [place] % (Auto) 6.5, Eos % (Auto) 0.8, Baso % (Auto) 0.4, Absolute Neuts (auto) 6.4, Absolute Lymphs (auto) 1.37, Total Counted Not Reportable 05/17/18 08:40: D-Dimer Quant (PE/DVT) 2.49 H* 05/17/18 08:40: Sodium 115 L*, Potassium 4.4, Chloride 82 L, Carbon Dioxide 20.0 L, Anion Gap 13, BUN 21 H, Creatinine 1.37 H, Estim Creat Clear Calc 65.61, Est GFR (MDRD) Af Amer 68, Est GFR (MDRD) Non-Af 56 L, BUN/Creatinine Ratio 15.3, Glucose 127 H, Calcium 7.9 L, Troponin I 0.034 05/17/18 08:40: B-Natriuretic Peptide 555.8 H 05/17/18 11:51: Magnesium 1.3 L, TSH 1.62 05/17/18 11:51: B-Natriuretic Peptide 615.7 H 05/17/18 11:51: Troponin I 0.035 05/17/18 12:30: POC Glucose 158 H 05/17/18 14:40: Troponin I 0.033 05/17/18 14:40: Sodium 119 L*, Potassium 4.5, Chloride 85 L, Carbon Dioxide 21.0, Anion Gap 13, BUN 23 H, Creatinine 1.40 H, Estim Creat Clear Calc 64.21, Est GFR (MDRD) Af Amer 67, Est GFR (MDRD) Non-Af 55 L, BUN/Creatinine Ratio 16.4, Glucose 165 H, Calcium 7.8 L, Total Bilirubin 0.60, AST 43 H, ALT 35, Alkaline Phosphatase 109, Total Protein 6.9, Albumin 3.0 L, Globulin 3.9, Albumin/Globulin Ratio 0.8 L 05/17/18 17:42: POC Glucose 141 H 05/17/18 19:00: Sodium 121 L, Potassium 4.4, Chloride 88 L, Carbon Dioxide 23.0, Anion Gap 10, BUN 24 H, Creatinine 1.44 H, Estim Creat Clear Calc 62.42, Est GFR (MDRD) Af Amer 64, Est GFR (MDRD) Non-Af 53 L, BUN/Creatinine Ratio 16.7, Glucose 175 H, Calcium 7.8 L 05/17/18 21:09: POC Glucose 160 H 05/17/18 23:00: Sodium 130 L, Potassium 3.9, Chloride 98, Carbon Dioxide 21.0, Anion Gap 11, BUN 23 H, Creatinine 1.26, Estim Creat Clear Calc 71.34, Est GFR (MDRD) Af Amer 75, Est GFR (MDRD) Non-Af 62, BUN/Creatinine Ratio 18.3, Glucose 104, Calcium 6.9 L 05/18/18 03:05: WBC 9.3, RBC 3.11 L, Hgb 10.2 L, Hct 27.8 L, MCV 89.4, MCH 32.8 H, MCHC 36.7 H, RDW 11.2 L, RDW Differential 35.2, Plt Count 247, MPV 10.3 05/18/18 03:05: Sodium 128 L, Potassium 4.4, Chloride 90 L, Carbon Dioxide 26.0, Anion Gap 12, BUN 25 H, Creatinine 1.35 H, Estim Creat Clear Calc 66.58, Est GFR (MDRD) Af Amer 69, Est GFR (MDRD) Non-Af 57 L, BUN/Creatinine Ratio 18.5, Glucose 116 H, Calcium 8.3 L 05/18/18 06:35: POC Glucose 132 H 05/18/18 07:10: Sodium 129 L, Potassium 4.6, Chloride 93 L, Carbon Dioxide 24.0, Anion Gap 12, BUN 22 H, Creatinine 1.33 H, Estim Creat Clear Calc 67.58, Est GFR (MDRD) Af Amer 71, Est GFR (MDRD) Non-Af 58 L, BUN/Creatinine Ratio 16.5, Glucose 122 H, Calcium 8.6 Current Medications Acetaminophen (Tylenol) 650 mg PO Q6H PRN PRN PRN Reason: Mild Pain (scale 0-3)/T>100.7 Al Hydroxide/Mg Hydroxide (Mylanta Ii) 30 ml PO Q6H PRN PRN PRN Reason: Gastric burning Aspirin (Ecotrin) 81 mg PO DAILY@0800 [facility] Last Admin: 05/17/18 18:46 Dose: 81 mg Atorvastatin Calcium (Lipitor) 20 mg PO QHS [facility] Last Admin: 05/17/18 21:10 Dose: 20 mg Dextrose (D50w Syringe) 0 gm IV X1 PRN; Protocol PRN Reason: Hypoglycemia Enoxaparin Sodium (Lovenox) 40 mg SC DAILY@1000 PENNIE Furosemide (Lasix) 40 mg IV Q8 [facility] Last Admin: 05/18/18 05:54 Dose: 40 mg Glucagon () 1 mg IM .X1 PRN PRN Reason: Hypoglycemia Hydralazine HCl (Apresoline Iv) 10 mg IV Q4H PRN PRN PRN Reason: for SBP > 150 Insulin Human Lispro (Humalog Kwikpen (Bkc)) 0 unit SQ ACHS [facility]; Protocol Last Admin: 05/18/18 08:16 Dose: Not Given Lisinopril (Zestril) 10 mg PO BID [facility] Magnesium Hydroxide (Milk Of Magnesia) 30 ml PO DAILY PRN PRN Reason: Constipation Morphine Sulfate () 2 - 4 mg IV Q3H PRN PRN PRN Reason: Severe Pain (pain scale 6-10) Morphine Sulfate () 2 - 4 mg IV Q3H PRN PRN PRN Reason: Severe Pain (pain scale 6-10) Oxycodone HCl (Oxyir) 5 mg PO Q4H PRN PRN PRN Reason: Moderate Pain (pain scale 4-5) Psyllium Hydrophilic Mucilloid (Metamucil) 1 packet PO DAILY PRN PRN PRN Reason: CONSTIPATION Sodium Chloride () 5 - 15 ml IV UD PRN PRN Reason: SALINE FLUSH Last Admin: 05/18/18 05:54 Dose: 10 ml Zolpidem Tartrate (Ambien (Generic)) 5 mg PO QHS PRN PRN PRN Reason: INSOMNIA Medical Necessity - Tobacco Use Smoking Status: Never smoker Tobacco Use: Non-smoker, Secondhand Assessment/Plan All Active Problems Dyspnea (Acute) CHF (congestive heart failure) (Acute) Patient is a 57-year-old gentleman presented with progressive shortness of breath and peripheral edema 1. Acute congestive heart failure (unspecified at this point). Patient has been admitted to a monitored bed placed on strict input and output, daily weight, fluid restriction and IV Lasix. Echo ordered for EF assessment 2. High degree AV block with 2-1 conduction. This was attributed to patient electrolyte abnormalities. Transferred to the intensive care unit for close monitoring. Consultation was placed to cardiology patient was being seen by Dr. Galvan had his notes and recommendations reviewed. 2. Essential hypertension: In view of patient peripheral edema his amlodipine was held. Patient also had hyponatremia HCTZ held and did continue with lisinopril. Added as needed hydralazine on the morning of 05/18/2018. 4. Hyponatremia attributed to his fluid overload status as well as patient being on HCTZ. Patient has been placed on fluid restriction, Lasix and HCTZ held as a result. Sodium levels improving. 5. History of basal cell carcinoma involving the forehead as well as left cheek with previous excision 6. Diabetes mellitus type II: Controlled, patient's oral hypoglycemics held. Placed ON Accu-Cheks a.c. and at bedtime and covered with sliding scale insulin 7. Renal failure do suspect some chronicity probably from diabetic nephropathy as well as hypertensive nephrosclerosis renal ultrasound ordered for subsequent evaluation. 8. Obesity with BMI of 30.1 lifestyle modification including weight loss advise d 9. DVT prophylaxis SC Lesvia Code Visit Inpatient E&M: [id number] [facility] Hosp L3
--- NOTE | 2018-05-18 08:40 | US_ITS ---
STUDY: RENAL ULTRASOUND - COMPLETE REASON FOR EXAM: Male, 57 years old. Chronic kidney disease. TECHNIQUE: Ultrasound evaluation of the kidneys was performed with real-time and static bo-scale imaging. COMPARISON: None. FINDINGS: RIGHT KIDNEY: Normal location of the right kidney, which is enlarged in size. The right kidney measures 14.2 cm. There is a normal cortex of the right kidney. The renal cortex measures 2.2 cm. There is no right renal mass or cyst. There are no right renal calculi. There is no right hydronephrosis. DISTAL RIGHT URETER: There is non-visualization of the distal right ureter. There is no demonstrated right ureterovesical junction calculus. There is a visualized right ureteral jet. LEFT KIDNEY: Normal location of the left kidney, which is normal in size. The left kidney measures 12.4 cm. There is a normal cortex of the left kidney. The renal cortex measures 1.8 cm. There is no left renal mass or cyst. There are no left renal calculi. There is no left hydronephrosis. DISTAL LEFT URETER: There is non-visualization of the distal left ureter. There is no demonstrated left ureterovesical junction calculus. There is a visualized left ureteral jet. BLADDER: The distended urinary bladder has a volume of 258 ml. There is a normal wall thickness of the distended urinary bladder. There is no demonstrated mass within the urinary bladder. There are no demonstrated bladder calculi. US/Kidney and Bladder IMPRESSION: 1. Prominent kidneys without other abnormality. 2. Normal urinary bladder. Electronically Signed: Jaswinder Tello DO at 22:32 EST Tel [phone], Service support ,
[2018-05-18 08:54] LABS: Magnesium 1.7 mg/dL (1.6-2.6)
[2018-05-18] MEDS: Enoxaparin 40 MG/0.4 ML Syringe SC (09:06)
[2018-05-18] MEDS: Lisinopril 10 MG Tablet PO ×2 (09:06→21:20)
[2018-05-18] MEDS: Aspirin E.C. 81 MG Tablet PO (09:08)
--- NOTE | 2018-05-18 11:06 | PCM.PN.CARD ---
Subjectve: Feels better. No complaints. Objective: Vital Signs Temp Pulse Resp BP Pulse Ox 98.5 F 61 26 H 150/64 H 93 05/18/18 08:00 05/18/18 10:00 05/18/18 10:00 05/18/18 10:00 05/18/18 10:00 Oxygen Flow Rate (L/min) 2 Oxygen Delivery Method Room Air Weight: 103.5 kg Body Mass Index (BMI) 31.3 Intake and Output for Last 24 Hours 05/16/18 05/17/18 05/18/18 23:59 23:59 23:59 Intake Total 775 / 775 240 / 240 Output Total 2900 / 2900 1725 / 1725 Balance -2125 / -2125 -1485 / -1485 General: Awake, Alert, Oriented x 3, No Acute Distress HEENT: Atraumatic Neck: Positive JVD Lungs: Rales - Brian Bases Cardiovascular: Regular Rhythm, Normal S1, Normal S2 Extremities: Bilateral Edema +2 Psych/Mental Status: Appropriate 05/17/18 11:51: Magnesium 1.3 L 05/17/18 11:51: B-Natriuretic Peptide 615.7 H 05/17/18 11:51: Troponin I 0.035 05/17/18 14:40: Troponin I 0.033 05/17/18 14:40: Sodium 119 L*, Potassium 4.5, Chloride 85 L, Carbon Dioxide 21.0, Anion Gap 13, BUN 23 H, Creatinine 1.40 H, Est GFR (MDRD) Af Amer 67, Est GFR (MDRD) Non-Af 55 L, BUN/Creatinine Ratio 16.4, Glucose 165 H, Calcium 7.8 L, Total Bilirubin 0.60 05/17/18 19:00: Sodium 121 L, Potassium 4.4, Chloride 88 L, Carbon Dioxide 23.0, Anion Gap 10, BUN 24 H, Creatinine 1.44 H, Est GFR (MDRD) Af Amer 64, Est GFR (MDRD) Non-Af 53 L, BUN/Creatinine Ratio 16.7, Glucose 175 H, Calcium 7.8 L 05/17/18 23:00: Sodium 130 L, Potassium 3.9, Chloride 98, Carbon Dioxide 21.0, Anion Gap 11, BUN 23 H, Creatinine 1.26, Est GFR (MDRD) Af Amer 75, Est GFR (MDRD) Non-Af 62, BUN/Creatinine Ratio 18.3, Glucose 104, Calcium 6.9 L 05/18/18 03:05: WBC 9.3, RBC 3.11 L, Hgb 10.2 L, Hct 27.8 L, MCV 89.4, MCH 32.8 H, MCHC 36.7 H, RDW 11.2 L, RDW Differential 35.2, Plt Count 247, MPV 10.3 05/18/18 03:05: Sodium 128 L, Potassium 4.4, Chloride 90 L, Carbon Dioxide 26.0, Anion Gap 12, BUN 25 H, Creatinine 1.35 H, Est GFR (MDRD) Af Amer 69, Est GFR (MDRD) Non-Af 57 L, BUN/Creatinine Ratio 18.5, Glucose 116 H, Calcium 8.3 L 05/18/18 07:10: Sodium 129 L, Potassium 4.6, Chloride 93 L, Carbon Dioxide 24.0, Anion Gap 12, BUN 22 H, Creatinine 1.33 H, Est GFR (MDRD) Af Amer 71, Est GFR (MDRD) Non-Af 58 L, BUN/Creatinine Ratio 16.5, Glucose 122 H, Calcium 8.6 05/18/18 07:10: Magnesium 1.7 Rhythm: Normal sinus rhythm. Second-degree AV block alternating between type I and type II. Likely sick sinus syndrome. EKG: ECHO: Stress Test: Cardiac Cath: PCI: CT Surgery: Holter monitor: EPS: PPM: CXR: Chest CT Scan: Medical Necessity - Tobacco Use Smoking Status: Never smoker Tobacco Use: Non-smoker, Secondhand Assessment/Plan 1. Congestive heart failure. Agree with diuresis. Echocardiogram already ordered. Further workup in light of echocardiographic results. 3. Sick sinus syndrome. Initial EKG in the emergency room showed second-degree AV block type II. However the conduction has improved to second-degree type I Mobitz block. Amlodipine could certainly cause conduction abnormalities. Stop amlodipine. Monitor. Check TSH. Correct electrolyte abnormalities. Avoid negative chronotropic agents. Patient may need a permanent pacemaker in view of his high degree AV block. We will continue to monitor for now. 3. Coronary artery disease. CT scan of the same chest shows coronary arterial calcifications. Start on aspirin. If the LV function is normal on echocardiography, then will recommend a stress test. However if the LV function is compromised, then will consider cardiac catheterization with coronary angiography. 4. Hypertension. Hold amlodipine. Agree with holding hydrochlorothiazide. Started on furosemide. Monitor sodium. 5. Marked hyponatremia. Could be result of pneumonia versus fluid volume overload with congestive heart failure. Started on furosemide. Monitor potassium. 6. Diabetes mellitus. 7. Start on statins in view of coronary artery disease with coronary calcifications noted on CT scan of the chest. Target LDL cholesterol less than 100 mg/dL. 8. Mild renal insufficiency
[2018-05-18 11:31] LABS: Bedside Glucose 192 mg/dL (70-110)
[2018-05-18] MEDS: hydrALAZINE 20 MG/ML Vial 10 MG IV ×3 (12:11→20:07)
[2018-05-18] MEDS: Insulin Lispro 100 UNIT/ML INSULN.PEN SQ ×2 (13:19→21:19)
[2018-05-18] MEDS: Pantoprazole Sodium 40 MG Tablet PO (17:58)
[2018-05-18 18:06] LABS: Bedside Glucose 137 mg/dL (70-110)
[2018-05-18] MEDS: Atorvastatin Calcium 20 MG Tablet PO (21:24)
[2018-05-18 21:36] LABS: Bedside Glucose 164 mg/dL (70-110)
[2018-05-19] VITALS (32 sets, daily range): BP systolic 134–181; BP diastolic 45–113; PULSE 55–93; RESP 11–20; TEMP 36.9–37.7; O2SAT 91–98
[2018-05-19] MEDS: hydrALAZINE 20 MG/ML Vial 10 MG IV ×2 (05:47→15:14)
[2018-05-19] MEDS: Furosemide 40 MG/4 ML Vial IV ×3 (05:47→22:13)
[2018-05-19 06:16] LABS: Hematocrit 29.8 % (40-54); Hemoglobin 10.3 g/dl (13.0-16.5); Mean Corp Hgb Conc 34.6 g/gl (32-36); Mean Corpuscular Volume 92.5 fL (80-94); Mean Platelet Vol. 10.1 fl (6.2-12.0); Platelet Count 246 K/mm3 (150-450); RBC Distribution Width CV 11.6 % (11.6-14.6); RBC Distribution Width SD 38.3 fl (35.1-43.9); Red Blood Count 3.22 M/mm3 (4.6-6.2); White Blood Count 6.7 K/mm3 (4.4-11.0)
[2018-05-19 06:17] LABS: Scan Indicated on CBC? Y/N NO
[2018-05-19 06:18] LABS: Anion Gap 10 (5-15); BUN 20 mg/dL (7-18); BUN/Creat Ratio 17.9 RATIO (10-20); Calcium,Total 8.1 mg/dL (8.5-10.1); Chloride 97 mmol/L (98-107); Creatinine, Serum 1.12 mg/dL (0.70-1.30); EST Glomerular Filtration Rate 71 mL/min (>60); Est Glom Filt Rate - Afr Amer 86 mL/min (>60); Estimated Creatinine Clearance 80.26 ml/min; Glucose 130 mg/dL (74-106); Potassium 4.2 mmol/L (3.5-5.1); Sodium Level 133 mmol/L (136-145)
[2018-05-19 07:06] LABS: Bedside Glucose 105 mg/dL (70-110)
[2018-05-19] MEDS: Lisinopril 10 MG Tablet PO ×2 (09:13→11:58)
[2018-05-19] MEDS: Aspirin E.C. 81 MG Tablet PO (09:17)
[2018-05-19] MEDS: Pantoprazole Sodium 40 MG Tablet PO (09:17)
--- NOTE | 2018-05-19 10:04 | PCM.PN.HOSP ---
Patient Problems: Active and Suspected Problems Dyspnea (Acute) CHF (congestive heart failure) (Acute) Subjective: Feels well. No complaints at this time. Vitals/I&O's: Vital Signs Temp Pulse Resp BP Pulse Ox 36.9 C 66 18 165/74 H 98 05/19/18 09:00 05/19/18 09:00 05/19/18 09:00 05/19/18 09:00 05/19/18 09:00 Oxygen Flow Rate (L/min) 2 Oxygen Delivery Method Room Air Weight: 101.2 kg Body Mass Index (BMI) 31.3 Intake and Output for Last 24 Hours 05/17/18 05/18/18 05/19/18 23:59 23:59 23:59 Intake Total 775 / 775 1000 / 1000 560 / 560 Output Total 2900 / 2900 5725 / 5725 1525 / 1525 Balance -2125 / -2125 -4725 / -4725 -965 / -965 General: Alert, No apparent distress HEENT: Atraumatic, Normocephalic Oral: Moist Mucosa, No Gingival or Mucosal Lesions/ Ulcerations Neck: No Nodes, Thyroid Normal Size and Texture Lungs: Clear to auscultation, Normal air movement, No rhonchi, No wheeze Cardiovascular: Regular rate, Regular Rhythm, Normal S1, Normal S2, No murmurs Abdomen: Bowel Sounds Present, Soft, Non Tender, Non-Distended, No Hepato-splenomegaly Extremities: No edema, No Calf Tenderness Skin: No rashes, No breakdown Psych/Mental Status: Normal Affect, Appropriate Laboratory Results 05/18/18 11:25: POC Glucose 192 H 05/18/18 17:55: POC Glucose 137 H 05/18/18 21:17: POC Glucose 164 H 05/19/18 05:55: WBC 6.7, RBC 3.22 L, Hgb 10.3 L, Hct 29.8 L, MCV 92.5, MCH 32.0, MCHC 34.6, RDW 11.6, RDW Differential 38.3, Plt Count 246, MPV 10.1 05/19/18 05:55: Sodium 133 L, Potassium 4.2, Chloride 97 L, Carbon Dioxide 26.0, Anion Gap 10, BUN 20 H, Creatinine 1.12, Estim Creat Clear Calc 80.26, Est GFR (MDRD) Af Amer 86, Est GFR (MDRD) Non-Af 71, BUN/Creatinine Ratio 17.9, Glucose 130 H, Calcium 8.1 L 05/19/18 06:57: POC Glucose 105 Current Medications Acetaminophen (Tylenol) 650 mg PO Q6H PRN PRN PRN Reason: Mild Pain (scale 0-3)/T>100.7 Al Hydroxide/Mg Hydroxide (Mylanta Ii) 30 ml PO Q6H PRN PRN PRN Reason: Gastric burning Aspirin (Ecotrin) 81 mg PO DAILY@0800 [facility] Last Admin: 05/19/18 09:17 Dose: 81 mg Atorvastatin Calcium (Lipitor) 20 mg PO QHS [facility] Last Admin: 05/18/18 21:24 Dose: 20 mg Dextrose (D50w Syringe) 0 gm IV X1 PRN; Protocol PRN Reason: Hypoglycemia Enoxaparin Sodium (Lovenox) 40 mg SC DAILY@1000 [facility] Last Admin: 05/18/18 09:06 Dose: 40 mg Furosemide (Lasix) 40 mg IV Q8 [facility] Last Admin: 05/19/18 05:47 Dose: 40 mg Glucagon () 1 mg IM .X1 PRN PRN Reason: Hypoglycemia Hydralazine HCl (Apresoline Iv) 10 mg IV Q4H PRN PRN PRN Reason: for SBP > 150 Last Admin: 05/19/18 05:47 Dose: 10 mg Insulin Human Lispro (Humalog Kwikpen (Bkc)) 0 unit SQ ACHS [facility]; Protocol Last Admin: 05/19/18 08:03 Dose: Not Given Lisinopril (Zestril) 10 mg PO BID [facility] Last Admin: 05/19/18 09:13 Dose: 10 mg Magnesium Hydroxide (Milk Of Magnesia) 30 ml PO DAILY PRN PRN Reason: Constipation Morphine Sulfate () 2 - 4 mg IV Q3H PRN PRN PRN Reason: Severe Pain (pain scale 6-10) Morphine Sulfate () 2 - 4 mg IV Q3H PRN PRN PRN Reason: Severe Pain (pain scale 6-10) Oxycodone HCl (Oxyir) 5 mg PO Q4H PRN PRN PRN Reason: Moderate Pain (pain scale 4-5) Pantoprazole Sodium (Protonix) 40 mg PO DAILY [facility] Last Admin: 05/19/18 09:17 Dose: 40 mg Psyllium Hydrophilic Mucilloid (Metamucil) 1 packet PO DAILY PRN PRN PRN Reason: CONSTIPATION Sodium Chloride () 5 - 15 ml IV UD PRN PRN Reason: SALINE FLUSH Last Admin: 05/18/18 16:38 Dose: 10 ml Zolpidem Tartrate (Ambien (Generic)) 5 mg PO QHS PRN PRN PRN Reason: INSOMNIA Medical Necessity - Tobacco Use Smoking Status: Never smoker Tobacco Use: Non-smoker, Secondhand Assessment/Plan All Active Problems Dyspnea (Acute) CHF (congestive heart failure) (Acute) 1. suspected acute HFpEF improved: weight down 6.6kg on IV lasix and lisinopril follow up echocardiogram 2. Second degree AV block initially, appeared type II, now type I cardiology following Amlodipine held No imminent need for PPM 3. Hyponatremia improved suspect due to HCTZ, which has been held. 4. DVT proph: LMWH Code Visit Inpatient E&M: 94587 Subs Hosp L2
--- NOTE | 2018-05-19 10:11 | PN_ITS ---
Patient Problems: Active and Suspected Problems Dyspnea (Acute) CHF (congestive heart failure) (Acute) Subjective: Feels well. No complaints at this time. Vitals/I&O's: Vital Signs Temp Pulse Resp BP Pulse Ox 36.9 C 66 18 165/74 H 98 05/19/18 09:00 05/19/18 09:00 05/19/18 09:00 05/19/18 09:00 05/19/18 09:00 Oxygen Flow Rate (L/min) 2 Oxygen Delivery Method Room Air Weight: 101.2 kg Body Mass Index (BMI) 31.3 Intake and Output for Last 24 Hours 05/17/18 05/18/18 05/19/18 23:59 23:59 23:59 Intake Total 775 / 775 1000 / 1000 560 / 560 Output Total 2900 / 2900 5725 / 5725 1525 / 1525 Balance -2125 / -2125 -4725 / -4725 -965 / -965 General: Alert, No apparent distress HEENT: Atraumatic, Normocephalic Oral: Moist Mucosa, No Gingival or Mucosal Lesions/ Ulcerations Neck: No Nodes, Thyroid Normal Size and Texture Lungs: Clear to auscultation, Normal air movement, No rhonchi, No wheeze Cardiovascular: Regular rate, Regular Rhythm, Normal S1, Normal S2, No murmurs Abdomen: Bowel Sounds Present, Soft, Non Tender, Non-Distended, No Hepato- splenomegaly Extremities: No edema, No Calf Tenderness Skin: No rashes, No breakdown Psych/Mental Status: Normal Affect, Appropriate Laboratory Results 05/18/18 11:25: POC Glucose 192 H 05/18/18 17:55: POC Glucose 137 H 05/18/18 21:17: POC Glucose 164 H 05/19/18 05:55: WBC 6.7, RBC 3.22 L, Hgb 10.3 L, Hct 29.8 L, MCV 92.5, MCH 32.0, MCHC 34.6, RDW 11.6, RDW Differential 38.3, Plt Count 246, MPV 10.1 05/19/18 05:55: Sodium 133 L, Potassium 4.2, Chloride 97 L, Carbon Dioxide 26.0, Anion Gap 10, BUN 20 H, Creatinine 1.12, Estim Creat Clear Calc 80.26, Est GFR (MDRD) Af Amer 86, Est GFR (MDRD) Non-Af 71, BUN/Creatinine Ratio 17.9, Glucose 130 H, Calcium 8.1 L 05/19/18 06:57: POC Glucose 105 Current Medications Acetaminophen (Tylenol) 650 mg PO Q6H PRN PRN PRN Reason: Mild Pain (scale 0-3)/T>100.7 Al Hydroxide/Mg Hydroxide (Mylanta Ii) 30 ml PO Q6H PRN PRN PRN Reason: Gastric burning Aspirin (Ecotrin) 81 mg PO DAILY@0800 [facility] Last Admin: 05/19/18 09:17 Dose: 81 mg Atorvastatin Calcium (Lipitor) 20 mg PO QHS [facility] Last Admin: 05/18/18 21:24 Dose: 20 mg Dextrose (D50w Syringe) 0 gm IV X1 PRN; Protocol PRN Reason: Hypoglycemia Enoxaparin Sodium (Lovenox) 40 mg SC DAILY@1000 [facility] Last Admin: 05/18/18 09:06 Dose: 40 mg Furosemide (Lasix) 40 mg IV Q8 [facility] Last Admin: 05/19/18 05:47 Dose: 40 mg Glucagon () 1 mg IM .X1 PRN PRN Reason: Hypoglycemia Hydralazine HCl (Apresoline Iv) 10 mg IV Q4H PRN PRN PRN Reason: for SBP > 150 Last Admin: 05/19/18 05:47 Dose: 10 mg Insulin Human Lispro (Humalog Kwikpen (Bkc)) 0 unit SQ ACHS [facility]; Protocol Last Admin: 05/19/18 08:03 Dose: Not Given Lisinopril (Zestril) 10 mg PO BID [facility] Last Admin: 05/19/18 09:13 Dose: 10 mg Magnesium Hydroxide (Milk Of Magnesia) 30 ml PO DAILY PRN PRN Reason: Constipation Morphine Sulfate () 2 - 4 mg IV Q3H PRN PRN PRN Reason: Severe Pain (pain scale 6-10) Morphine Sulfate () 2 - 4 mg IV Q3H PRN PRN PRN Reason: Severe Pain (pain scale 6-10) Oxycodone HCl (Oxyir) 5 mg PO Q4H PRN PRN PRN Reason: Moderate Pain (pain scale 4-5) Pantoprazole Sodium (Protonix) 40 mg PO DAILY [facility] Last Admin: 05/19/18 09:17 Dose: 40 mg Psyllium Hydrophilic Mucilloid (Metamucil) 1 packet PO DAILY PRN PRN PRN Reason: CONSTIPATION Sodium Chloride () 5 - 15 ml IV UD PRN PRN Reason: SALINE FLUSH Last Admin: 05/18/18 16:38 Dose: 10 ml Zolpidem Tartrate (Ambien (Generic)) 5 mg PO QHS PRN PRN PRN Reason: INSOMNIA Medical Necessity - Tobacco Use Smoking Status: Never smoker Tobacco Use: Non-smoker, Secondhand Assessment/Plan All Active Problems Dyspnea (Acute) CHF (congestive heart failure) (Acute) 1. suspected acute HFpEF improved: weight down 6.6kg on IV lasix and lisinopril follow up echocardiogram 2. Second degree AV block initially, appeared type II, now type I cardiology following Amlodipine held No imminent need for PPM 3. Hyponatremia improved suspect due to HCTZ, which has been held. 4. DVT proph: LMWH Code Visit Inpatient E&M: 81738 Subs Hosp L2
[2018-05-19 11:56] LABS: Bedside Glucose 149 mg/dL (70-110)
[2018-05-19] MEDS: Enoxaparin 40 MG/0.4 ML Syringe SC (13:18)
[2018-05-19] MEDS: hydrALAZINE 50 MG Tablet PO ×2 (13:18→22:12)
[2018-05-19 17:32] LABS: Bedside Glucose 179 mg/dL (70-110)
[2018-05-19] MEDS: Insulin Lispro 100 UNIT/ML INSULN.PEN SQ ×2 (17:58→22:13)
[2018-05-19] MEDS: Acetaminophen 325 MG Tablet 650 MG PO (22:11)
[2018-05-19] MEDS: Lisinopril 20 MG Tablet PO (22:12)
[2018-05-19] MEDS: Atorvastatin Calcium 20 MG Tablet PO (22:12)
[2018-05-19 22:32] LABS: Bedside Glucose 205 mg/dL (70-110)
[2018-05-20] VITALS (31 sets, daily range): BP systolic 108–189; BP diastolic 57–94; PULSE 54–96; RESP 10–19; TEMP 36.4–37; O2SAT 91–98
--- NOTE | 2018-05-20 05:00 | EKG12_ITS ---
Test Reason : Blood Pressure : / mmHG Vent. Rate : 045 BPM Atrial Rate : 045 BPM P-R Int : 128 ms QRS Dur : 102 ms QT Int : 506 ms P-R-T Axes : 071 025 069 degrees QTc Int : 437 ms Sinus bradycardia with 2:1 heart block Otherwise normal ECG When compared with ECG of 17-MAY-2018 16:45, MANUAL COMPARISON REQUIRED, DATA IS UNCONFIRMED Reconfirmed by IMANI GILLILAND, RADHA ([id number]), newspaper photo editor MAICEL FOLEY ([id number]) on 05/22/2018 8:31:35 AM Referred By: Confirmed By:RADHA DIALLO MD
[2018-05-20] MEDS: Lisinopril 20 MG Tablet PO ×2 (05:10→21:15)
[2018-05-20] MEDS: Aspirin E.C. 81 MG Tablet PO (05:10)
[2018-05-20] MEDS: Pantoprazole Sodium 40 MG Tablet PO (05:10)
[2018-05-20] MEDS: 0.9% NaCl Peripheral Flush Adult/Peds IV ×2 (05:11→18:36)
[2018-05-20 05:16] LABS: Bedside Glucose 130 mg/dL (70-110)
[2018-05-20 08:23] LABS: Absolute Lymphocyte Count 1.36 X10^3/ul (0.83-4.51); Absolute Neutrophil Count 6.4 X10^3/uL (2.0-7.7); Basophil# 0.03 X10^3/uL; Basophil% 0.3 % (0-1); Eosinophil# 0.29 X10^3/uL; Eosinophils% 3.1 % (0-5); Hematocrit 36.8 % (40-54); Lymphocyte # 1.36 X10^3/ul (4.0); Lymphocyte % 14.4 % (19-41); Mean Corp Hgb Conc 32.6 g/gl (32-36); Mean Corpuscular Hgb 30.8 pg (27.0-32.0); Mean Corpuscular Volume 94.6 fL (80-94); Mean Platelet Vol. 10.5 fl (6.2-12.0); Monocyte# 1.36 X10^3/uL; Monocyte% 14.4 % (0-10); Neutrophil # 6.36 X10^3/uL (2.7-7.7); Neutrophil % 67.3 % (47-70); Platelet Count 324 K/mm3 (150-450); RBC Distribution Width CV 11.6 % (11.6-14.6); RBC Distribution Width SD 39.8 fl (35.1-43.9); Red Blood Count 3.89 M/mm3 (4.6-6.2); White Blood Count 9.5 K/mm3 (4.4-11.0)
[2018-05-20 08:24] LABS: POSITIVE COUNT NO; POSITIVE DIFFERENTIAL NO; POSITIVE MORPHOLOGY NO
[2018-05-20 08:36] LABS: Anion Gap 9 (5-15); BUN 18 mg/dL (7-18); BUN/Creat Ratio 15.9 RATIO (10-20); Calcium,Total 8.6 mg/dL (8.5-10.1); Chloride 95 mmol/L (98-107); Creatinine, Serum 1.13 mg/dL (0.70-1.30); EST Glomerular Filtration Rate 70 mL/min (>60); Est Glom Filt Rate - Afr Amer 85 mL/min (>60); Estimated Creatinine Clearance 79.55 ml/min; Glucose 119 mg/dL (74-106); Potassium 3.9 mmol/L (3.5-5.1); Sodium Level 132 mmol/L (136-145)
[2018-05-20 08:42] LABS: Prothrombin Time (Protime)PT. 13.6 SECONDS (11.7-14.9)
--- NOTE | 2018-05-20 08:58 | PCM.PN.HOSP ---
Patient Problems: Active and Suspected Problems Dyspnea (Acute) CHF (congestive heart failure) (Acute) Subjective: Feels good. No shortness of breath. Decreased edema of LE. Vitals/I&O's: Vital Signs Temp Pulse Resp BP Pulse Ox 37.0 C 72 10 L 166/80 H 93 05/20/18 04:00 05/20/18 07:00 05/20/18 05:00 05/20/18 05:00 05/20/18 06:50 Oxygen Flow Rate (L/min) 2 Oxygen Delivery Method Room Air Weight: 98.8 kg Body Mass Index (BMI) 31.3 Intake and Output for Last 24 Hours 05/18/18 05/19/18 05/20/18 23:59 23:59 23:59 Intake Total 1000 / 1000 1557 / 1557 30 / 30 Output Total 5725 / 5725 4600 / 4600 1275 / 1275 Balance -4725 / -4725 -3043 / -3043 -1245 / -1245 General: Alert, No apparent distress HEENT: Atraumatic, Normocephalic Oral: Moist Mucosa, No Gingival or Mucosal Lesions/ Ulcerations Neck: No Nodes, Thyroid Normal Size and Texture Lungs: Clear to auscultation, Normal air movement, No rhonchi, No wheeze Cardiovascular: Regular rate, Regular Rhythm, Normal S1, Normal S2, No murmurs Abdomen: Bowel Sounds Present, Soft, Non Tender, Non-Distended, No Hepato-splenomegaly Extremities: No edema, No Calf Tenderness Laboratory Results 05/19/18 11:53: POC Glucose 149 H 05/19/18 17:20: POC Glucose 179 H 05/19/18 22:04: POC Glucose 205 H 05/20/18 05:04: POC Glucose 130 H 05/20/18 05:35: Sodium 132 L, Potassium 3.9, Chloride 95 L, Carbon Dioxide 28.0, Anion Gap 9, BUN 18, Creatinine 1.13, Estim Creat Clear Calc 79.55, Est GFR (MDRD) Af Amer 85, Est GFR (MDRD) Non-Af 70, BUN/Creatinine Ratio 15.9, Glucose 119 H, Calcium 8.6 05/20/18 05:35: WBC 9.5, RBC 3.89 L, Hgb 12.0 L, Hct 36.8 L, MCV 94.6 H, MCH 30.8, MCHC 32.6, RDW 11.6, RDW Differential 39.8, Plt Count 324, MPV 10.5, Immature Gran % (Auto) 0.500, Neut % (Auto) 67.3, Lymph % (Auto) 14.4 L, [place] % (Auto) 14.4 H, Eos % (Auto) 3.1, Baso % (Auto) 0.3, Absolute Neuts (auto) 6.4, Absolute Lymphs (auto) 1.36, Total Counted Not Reportable 05/20/18 05:35: PT 13.6, INR 1.0, APTT 37.0 H Current Medications Acetaminophen (Tylenol) 650 mg PO Q6H PRN PRN PRN Reason: Mild Pain (scale 0-3)/T>100.7 Last Admin: 05/19/18 22:11 Dose: 650 mg Al Hydroxide/Mg Hydroxide (Mylanta Ii) 30 ml PO Q6H PRN PRN PRN Reason: Gastric burning Aspirin (Ecotrin) 81 mg PO DAILY@0800 [facility] Last Admin: 05/20/18 05:10 Dose: 81 mg Atorvastatin Calcium (Lipitor) 20 mg PO QHS [facility] Last Admin: 05/19/18 22:12 Dose: 20 mg Dextrose (D50w Syringe) 0 gm IV X1 PRN; Protocol PRN Reason: Hypoglycemia Enoxaparin Sodium (Lovenox) 40 mg SC DAILY@1000 [facility] Last Admin: 05/19/18 13:18 Dose: 40 mg Furosemide (Lasix) 40 mg IV Q8 [facility] Last Admin: 05/19/18 22:13 Dose: 40 mg Glucagon () 1 mg IM .X1 PRN PRN Reason: Hypoglycemia Hydralazine HCl (Apresoline Iv) 10 mg IV Q4H PRN PRN PRN Reason: for SBP > 150 Last Admin: 05/19/18 15:14 Dose: 10 mg Hydralazine HCl (Apresoline) 50 mg PO TID [facility] Last Admin: 05/19/18 22:12 Dose: 50 mg Insulin Human Lispro (Humalog Kwikpen (Bkc)) 0 unit SQ ACHS [facility]; Protocol Last Admin: 05/20/18 05:10 Dose: Not Given Lisinopril (Zestril) 20 mg PO BID [facility] Last Admin: 05/20/18 05:10 Dose: 20 mg Magnesium Hydroxide (Milk Of Magnesia) 30 ml PO DAILY PRN PRN Reason: Constipation Morphine Sulfate () 2 - 4 mg IV Q3H PRN PRN PRN Reason: Severe Pain (pain scale 6-10) Morphine Sulfate () 2 - 4 mg IV Q3H PRN PRN PRN Reason: Severe Pain (pain scale 6-10) Oxycodone HCl (Oxyir) 5 mg PO Q4H PRN PRN PRN Reason: Moderate Pain (pain scale 4-5) Pantoprazole Sodium (Protonix) 40 mg PO DAILY [facility] Last Admin: 05/20/18 05:10 Dose: 40 mg Psyllium Hydrophilic Mucilloid (Metamucil) 1 packet PO DAILY PRN PRN PRN Reason: CONSTIPATION Sodium Chloride () 5 - 15 ml IV UD PRN PRN Reason: SALINE FLUSH Last Admin: 05/20/18 05:11 Dose: 10 ml Zolpidem Tartrate (Ambien (Generic)) 5 mg PO QHS PRN PRN PRN Reason: INSOMNIA Medical Necessity - Tobacco Use Smoking Status: Never smoker Tobacco Use: Non-smoker, Secondhand Assessment/Plan All Active Problems Dyspnea (Acute) CHF (congestive heart failure) (Acute) 1. acute HFpEF improved: weight down to 98.8kg on IV lasix and lisinopril change to lasix 40 daily stress test ordered 2. Second degree AV block initially, appeared type II, now type I cardiology following Amlodipine held No imminent need for PPM 3. Hyponatremia improved suspect due to HCTZ, which has been held. 4.Elevated creatinine improved slightly elevated from what may be his baseline (1.1) on admission. Cannot qualify as RAFA, however. Renal US, showed enlarged kidneys but no other acute process. 5. DVT proph: LMWH 6. Dispo: anticipate discharge today Code Visit Inpatient E&M: 16497 Subs Hosp L2
--- NOTE | 2018-05-20 09:02 | PN_ITS ---
Patient Problems: Active and Suspected Problems Dyspnea (Acute) CHF (congestive heart failure) (Acute) Subjective: Feels good. No shortness of breath. Decreased edema of LE. Vitals/I&O's: Vital Signs Temp Pulse Resp BP Pulse Ox 37.0 C 72 10 L 166/80 H 93 05/20/18 04:00 05/20/18 07:00 05/20/18 05:00 05/20/18 05:00 05/20/18 06:50 Oxygen Flow Rate (L/min) 2 Oxygen Delivery Method Room Air Weight: 98.8 kg Body Mass Index (BMI) 31.3 Intake and Output for Last 24 Hours 05/18/18 05/19/18 05/20/18 23:59 23:59 23:59 Intake Total 1000 / 1000 1557 / 1557 30 / 30 Output Total 5725 / 5725 4600 / 4600 1275 / 1275 Balance -4725 / -4725 -3043 / -3043 -1245 / -1245 General: Alert, No apparent distress HEENT: Atraumatic, Normocephalic Oral: Moist Mucosa, No Gingival or Mucosal Lesions/ Ulcerations Neck: No Nodes, Thyroid Normal Size and Texture Lungs: Clear to auscultation, Normal air movement, No rhonchi, No wheeze Cardiovascular: Regular rate, Regular Rhythm, Normal S1, Normal S2, No murmurs Abdomen: Bowel Sounds Present, Soft, Non Tender, Non-Distended, No Hepato-splenomegaly Extremities: No edema, No Calf Tenderness Laboratory Results 05/19/18 11:53: POC Glucose 149 H 05/19/18 17:20: POC Glucose 179 H 05/19/18 22:04: POC Glucose 205 H 05/20/18 05:04: POC Glucose 130 H 05/20/18 05:35: Sodium 132 L, Potassium 3.9, Chloride 95 L, Carbon Dioxide 28.0, Anion Gap 9, BUN 18, Creatinine 1.13, Estim Creat Clear Calc 79.55, Est GFR (MDRD) Af Amer 85, Est GFR (MDRD) Non-Af 70, BUN/Creatinine Ratio 15.9, Glucose 119 H, Calcium 8.6 05/20/18 05:35: WBC 9.5, RBC 3.89 L, Hgb 12.0 L, Hct 36.8 L, MCV 94.6 H, MCH 30.8, MCHC 32.6, RDW 11.6, RDW Differential 39.8, Plt Count 324, MPV 10.5, Immature Gran % (Auto) 0.500, Neut % (Auto) 67.3, Lymph % (Auto) 14.4 L, [place] % (Auto) 14.4 H, Eos % (Auto) 3.1, Baso % (Auto) 0.3, Absolute Neuts (auto) 6.4, Absolute Lymphs (auto) 1.36, Total Counted Not Reportable 05/20/18 05:35: PT 13.6, INR 1.0, APTT 37.0 H Current Medications Acetaminophen (Tylenol) 650 mg PO Q6H PRN PRN PRN Reason: Mild Pain (scale 0-3)/T>100.7 Last Admin: 05/19/18 22:11 Dose: 650 mg Al Hydroxide/Mg Hydroxide (Mylanta Ii) 30 ml PO Q6H PRN PRN PRN Reason: Gastric burning Aspirin (Ecotrin) 81 mg PO DAILY@0800 [facility] Last Admin: 05/20/18 05:10 Dose: 81 mg Atorvastatin Calcium (Lipitor) 20 mg PO QHS [facility] Last Admin: 05/19/18 22:12 Dose: 20 mg Dextrose (D50w Syringe) 0 gm IV X1 PRN; Protocol PRN Reason: Hypoglycemia Enoxaparin Sodium (Lovenox) 40 mg SC DAILY@1000 [facility] Last Admin: 05/19/18 13:18 Dose: 40 mg Furosemide (Lasix) 40 mg IV Q8 [facility] Last Admin: 05/19/18 22:13 Dose: 40 mg Glucagon () 1 mg IM .X1 PRN PRN Reason: Hypoglycemia Hydralazine HCl (Apresoline Iv) 10 mg IV Q4H PRN PRN PRN Reason: for SBP > 150 Last Admin: 05/19/18 15:14 Dose: 10 mg Hydralazine HCl (Apresoline) 50 mg PO TID [facility] Last Admin: 05/19/18 22:12 Dose: 50 mg Insulin Human Lispro (Humalog Kwikpen (Bkc)) 0 unit SQ ACHS [facility]; Protocol Last Admin: 05/20/18 05:10 Dose: Not Given Lisinopril (Zestril) 20 mg PO BID [facility] Last Admin: 05/20/18 05:10 Dose: 20 mg Magnesium Hydroxide (Milk Of Magnesia) 30 ml PO DAILY PRN PRN Reason: Constipation Morphine Sulfate () 2 - 4 mg IV Q3H PRN PRN PRN Reason: Severe Pain (pain scale 6-10) Morphine Sulfate () 2 - 4 mg IV Q3H PRN PRN PRN Reason: Severe Pain (pain scale 6-10) Oxycodone HCl (Oxyir) 5 mg PO Q4H PRN PRN PRN Reason: Moderate Pain (pain scale 4-5) Pantoprazole Sodium (Protonix) 40 mg PO DAILY [facility] Last Admin: 05/20/18 05:10 Dose: 40 mg Psyllium Hydrophilic Mucilloid (Metamucil) 1 packet PO DAILY PRN PRN PRN Reason: CONSTIPATION Sodium Chloride () 5 - 15 ml IV UD PRN PRN Reason: SALINE FLUSH Last Admin: 05/20/18 05:11 Dose: 10 ml Zolpidem Tartrate (Ambien (Generic)) 5 mg PO QHS PRN PRN PRN Reason: INSOMNIA Medical Necessity - Tobacco Use Smoking Status: Never smoker Tobacco Use: Non-smoker, Secondhand Assessment/Plan All Active Problems Dyspnea (Acute) CHF (congestive heart failure) (Acute) 1. acute HFpEF improved: weight down to 98.8kg on IV lasix and lisinopril change to lasix 40 daily stress test ordered 2. Second degree AV block initially, appeared type II, now type I cardiology following Amlodipine held No imminent need for PPM 3. Hyponatremia improved suspect due to HCTZ, which has been held. 4.Elevated creatinine improved slightly elevated from what may be his baseline (1.1) on admission. Cannot qualify as RAFA, however. Renal US, showed enlarged kidneys but no other acute process. 5. DVT proph: LMWH 6. Dispo: anticipate discharge today Code Visit Inpatient E&M: 59365 Subs Hosp L2
[2018-05-20] MEDS: hydrALAZINE 50 MG Tablet PO ×2 (12:24→21:15)
[2018-05-20 12:31] LABS: Bedside Glucose 158 mg/dL (70-110)
--- NOTE | 2018-05-20 12:36 | PCM.PN.BLA ---
Progress Note Patient underwent exercise stress Cardiolite this morning. No heart blocks. No EKG changes suggestive of ischemia. Nuclear imaging shows moderate apical ischemia. Discussed with the patient. With his coronary calcifications on CT scan and risk factors, I recommended cardiac catheterization with coronary angiography and possible revascularization if indicated. Risks benefits and alternatives explained. Patient understands and agrees to proceed with coronary angiography. Further recommendations to follow.
--- NOTE | 2018-05-20 12:41 | STRESSREP_ITS ---
Stress Test Report Exercise myocardial perfusion stress test. 57-year-old man with a history of chest pain and coronary calcification. Stress protocol: Resting EKG demonstrates normal sinus rhythm with a first-degree AV block a rate of 91 bpm is noted. The patient exercised according to the regular Davon protocol for total duration of 4 minutes and 35 seconds. The patient maintained sinus rhythm with a first-degree AV block. There were occasional blocked PACs noted. There was also occasional Wenckebach periodicity noted. At rest there were no ST or T wave changes noted suggest ischemia at peak exercise upsloping ST changes only were noted with normally the criteria for ischemia. The maximum heart rate was 144 bpm which was 89% of maximum predicted heart rate the maximum workload was 6.5 metabolic equivalents. No clinical angina was noted the test was terminated due to leg fatigue. Myocardial perfusion protocol. 14.8 mCi of technetium 99m sestamibi was injected at rest. Patient exercised according to regular Davon protocol for 4 minutes and 35 seconds. At peak exercise 44.4 mg of technetium 99m sestamibi was injected. Stress and rest images were reconstructed and compared in the short axis vertical long horizontal long axis. Gated images were also obtained per Perfusion SPECT analysis: Review of the stress images demonstrate a small to medium sized focal area of apical defect noted on the stress images with near complete reversibility noted on the resting images. The above is likely secondary to apical ischemia presen t. No previous infarct is noted. Gated SPECT analysis: The gated ejection fraction is noted to be normal. Conclusion: Abnormal myocardial perfusion stress test with small to medium apical ischemia noted no clinical angina noted. Preserved ejection fraction
--- NOTE | 2018-05-20 13:30 | CASEMGMT ---
Insurance review for [facility] facilities for [place] [employer] (from their website) [facility], [place], CINDY, , [facility], [facility]
--- NOTE | 2018-05-20 13:45 | EKG12_ITS ---
Test Reason : ARRYTHMIA Blood Pressure : / mmHG Vent. Rate : 055 BPM Atrial Rate : 081 BPM P-R Int : 000 ms QRS Dur : 098 ms QT Int : 474 ms P-R-T Axes : 057 024 073 degrees QTc Int : 453 ms Sinus rhythm with 2nd degree A-V block (Mobitz I) Abnormal ECG When compared with ECG of 17-MAY-2018 08:49, MANUAL COMPARISON REQUIRED, DATA IS UNCONFIRMED Confirmed by IMANI GILLILAND, RADHA ([id number]), video effects editor MACIEL FOLEY ([id number]) on 05/21/2018 2:37:20 PM Referred By: CIARAN GIANG Confirmed By:RADHA DIALLO MD
--- NOTE | 2018-05-20 13:46 | CL.D_ITS ---
Patient Name: CLAY RUBIO Study Date: 05/20/2018 Performing: Apolonia Paul MD Ht: 72.83 inches 185 cm : 1960 Wt: 218.26 lbs 99 kg Age: 57 Gender: male BSA: 2.23 PROCEDURE(S) PERFORMED [id number] CLINICAL PROFILE AND INDICATIONS Heart Failure: NYHA Class: 3, Newly Diagnosed: Yes, Heart Failure Type: Diastolic Stress/Imaging Stress Test w/SPECT MPI: Yes Result: Positive Intermediate RiskStress Test with SP ECT MPI: Positive Intermediate Risk CAD Presentations: No Sxs, no angina. CONCLUSIONS Severe multi-vessel CAD 90% ostial D1 80% Prox OM1 70-80% distal RCA RECOMMENDATIONS CABG DESCRIPTION OF PROCEDURE The patient arrived to the procedure lab. The risks and benefits of the procedure as well as a full d escription of our services here and current unavailability of surgical backup were fully explained to the patient and/or their significant other prior to the catheterization. The Timeout was completed, verifying the correct patient and procedure. The patient's procedural site was prepped and draped in the usual fashion. Local anesthetic was given subcutaneously to right radial region with Lidocaine 2% . Using a modified Seldinger technique, arterial access was obtained via the right radial artery, a 6 Fr sheath was inserted. Right Coronary Artery selective angiography was then performed in multiple v iews using a 5 Fr. 4.0 [place] catheter. Left Coronary Artery selective angiography was performed in mu ltiple views using a 5 Fr. 4.0 [place] catheter.The arterial sheath was pulled and a TR Band was applie d for hemostasis w/ 15ml air CORONARY ANGIOGRAPHY DOMINANCE: Right Dominant LEFT HEART ASSESSMENT Left Ventricular Ejection Fraction: Not assessed LEFT MAIN: 30% distal LEFT ANTERIOR DECENDING ARTERY: Calcified. 80% Proximal. 100% Mid. 90% ostial D1. LAD filling retrogr adely from Right system CIRCUMFLEX ARTERY: 80% Prox OM1 RIGHT CORONARY ARTERY: 30% Mid. 80% distal COLLATERAL FLOW: Collateral flow from Right to Left COMPLICATIONS No Complications PROCEDURE MEDICATIONS Versed 1 mg IV Fentanyl 50 mcg IV Versed 1 mg IV Oxygen: 2 L/min via nasal cannula Heparin 4000 unit(s) IV 05/20/2018 13:12:20 SUMMARY OF HEMODYNAMIC DATA Time AIR REST ECG 12:52:44 AO 151/72 (104) SA 13:13:55 Signed By Apolonia Paul MD On 05/20/2018 13:44:14 Apolonia Paul MD
--- NOTE | 2018-05-20 13:52 | PCM.PN.BLA ---
Progress Note Coronary angiography performed through the right radial artery. Please see cardiac catheterization report for complete details. Severe multivessel coronary artery disease with total occlusion of the mid left anterior descending artery. Filling retrogradely via collaterals from the right coronary artery. Severe RCA and left circumflex disease. Recommend CABG. Patient wishes to follow-up as outpatient with surgery for CABG. If remains stable, may discharge in the morning. Follow-up with cardiothoracic surgery as outpatient.
[2018-05-20] MEDS: Insulin Lispro 100 UNIT/ML INSULN.PEN SQ (15:24)
[2018-05-20] MEDS: Isosorbide Mononitrate 60 MG Tablet PO (15:24)
[2018-05-20 15:31] LABS: Bedside Glucose 199 mg/dL (70-110)
--- NOTE | 2018-05-20 17:15 | NURSING ---
This RN recieved report from Florencia AERIAL ERECTOR.
[2018-05-20] MEDS: Furosemide 40 MG/4 ML Vial IV (18:36)
[2018-05-20] MEDS: Atorvastatin Calcium 20 MG Tablet PO (21:15)
[2018-05-20 21:26] LABS: Bedside Glucose 149 mg/dL (70-110)
[2018-05-21] VITALS (8 sets, daily range): BP systolic 151–166; BP diastolic 69–94; PULSE 74–96; RESP 16–18; TEMP 36.6–37.2; O2SAT 94–95
[2018-05-21] MEDS: hydrALAZINE 50 MG Tablet PO (05:42)
[2018-05-21 05:52] LABS: Anion Gap 10 (5-15); BUN 18 mg/dL (7-18); Calcium,Total 8.4 mg/dL (8.5-10.1); Chloride 96 mmol/L (98-107); Creatinine, Serum 1.06 mg/dL (0.70-1.30); EST Glomerular Filtration Rate 76 mL/min (>60); Est Glom Filt Rate - Afr Amer 92 mL/min (>60); Glucose 130 mg/dL (74-106); Potassium 3.9 mmol/L (3.5-5.1); Sodium Level 134 mmol/L (136-145)
[2018-05-21 07:11] LABS: Bedside Glucose 144 mg/dL (70-110)
--- NOTE | 2018-05-21 08:59 | PCM.PN.CARD ---
Subjectve: Ambulating. No chest pains or shortness of breath. Objective: Vital Signs Temp Pulse Resp BP Pulse Ox 97.9 F 96 16 156/70 H 95 05/21/18 05:40 05/21/18 07:00 05/21/18 05:40 05/21/18 05:42 05/21/18 07:44 Oxygen Flow Rate (L/min) 2 Oxygen Delivery Method Room Air Weight: 96.4 kg Body Mass Index (BMI) 31.3 Intake and Output for Last 24 Hours 05/19/18 05/20/18 05/21/18 23:59 23:59 23:59 Intake Total 1557 / 1557 690 / 690 240 / 240 Output Total 4600 / 4600 2950 / 2950 Balance -3043 / -3043 -2260 / -2260 240 / 240 General: Healthy Appearing, Awake, Alert, Oriented x 3, No Acute Distress HEENT: Atraumatic Neck: No JVD Lungs: Clear to auscultation Cardiovascular: Regular Rhythm, Normal S1, Normal S2 Vascular: - - Right radial pulse 2+ Extremities: Bilateral Edema +1 05/21/18 05:05: Sodium 134 L, Potassium 3.9, Chloride 96 L, Carbon Dioxide 28.0, Anion Gap 10, BUN 18, Creatinine 1.06, Est GFR (MDRD) Af Amer 92, Est GFR (MDRD) Non-Af 76, BUN/Creatinine Ratio 17.0, Glucose 130 H, Calcium 8.4 L Rhythm: EKG: ECHO: Stress Test: Cardiac Cath: PCI: CT Surgery: Holter monitor: EPS: PPM: CXR: Chest CT Scan: Medical Necessity - Tobacco Use Smoking Status: Never smoker Tobacco Use: Non-smoker, Secondhand Assessment/Plan 1. Congestive heart failure. Acute. Diastolic. Improved with diuresis. Asymptomatic. 3. Sick sinus syndrome. Improved after stopping amlodipine. Presently normal sinus rhythm with borderline prolonged CO interval. Avoid negative chronotropic agents. 3. Coronary artery disease. Severe multivessel CAD. For CABG. Patient has appointment to see cardiothoracic surgery early next week. Patient was advised to avoid strenuous physical activity in the interim. Counseled to seek medical help if any chest pain or shortness of breath. 4. Hypertension. Pressure better but still not optimal. Monitor and adjust medications accordingly. 5. Hyponatremia. Resolved. 6. Diabetes mellitus. 7. Started on statins in view of coronary artery disease with coronary calcifications noted on CT scan of the chest. Target LDL cholesterol less than 70 mg/dL. Okay to discharge home from a cardiac standpoint
[2018-05-21] MEDS: Lisinopril 20 MG Tablet PO (09:56)
[2018-05-21] MEDS: Furosemide 40 MG Tablet PO (09:56)
[2018-05-21] MEDS: Enoxaparin 40 MG/0.4 ML Syringe SC (09:56)
[2018-05-21] MEDS: Pantoprazole Sodium 40 MG Tablet PO (09:56)
[2018-05-21] MEDS: Isosorbide Mononitrate 60 MG Tablet PO (09:56)
[2018-05-21] MEDS: Aspirin E.C. 81 MG Tablet PO (09:57)
--- NOTE | 2018-05-21 10:00 | EKG12_ITS ---
Test Reason : AM EKG Blood Pressure : / mmHG Vent. Rate : 074 BPM Atrial Rate : 074 BPM P-R Int : 212 ms QRS Dur : 096 ms QT Int : 430 ms P-R-T Axes : 055 043 043 degrees QTc Int : 477 ms Sinus rhythm with 1st degree A-V block Otherwise normal ECG When compared with ECG of 20-MAY-2018 05:26, MANUAL COMPARISON REQUIRED, DATA IS UNCONFIRMED Confirmed by IMANI GILLILAND, RADHA ([id number]), offline editor MACIEL FOLEY ([id number]) on 05/21/2018 2:26:01 PM Referred By: JERED Confirmed By:RADHA DIALLO MD
--- NOTE | 2018-05-21 10:50 | DCINST_ITS ---
- Discharge Diagnoses Current Active Problems: Current Active and Chronic Problems Dyspnea (Acute) CHF (congestive heart failure) (Acute) Essential hypertension (Chronic) DM2 (diabetes mellitus, type 2) (Chronic) You will use the following diet at home:: Calorie/Carbohydrate Controlled (specify 1200, 1400, etc) - 1800 calories/day, Cardiac Your food should be the consistency of: Regular Discharge Activity: - - walking ok. no lifting weight greater than 20 pounds. Call your doctor if you observe: Fever of 101 or Higher, Shortness of breath, Chest pain Instructions: Taking CAMILA Inhibitors, Taking Medication to Control Heart Failure, Controlling High Blood Pressure, What Is Heart Failure?, Low-Salt Choices, Heart Failure: Tracking Your Weight, Your High Blood Pressure Risk Factors, What Is High Blood Pressure?, Heart Failure: Making Changes to Your Diet, Heart Failure: Evaluating Your Heart, Heart Failure: Medications to Help Your Heart, Discharge Instructions for Heart Failure, Discharge Instructions for High Blood Pressure (Hypertension), Discharge Instructions: Eating a Low-Salt Diet, Discharge Instructions: Limiting Fluids, Discharge Instructions: Taking Blood Pressure Medications, Discharge Instructions: Taking Diuretics, Discharge Instructions: Taking Your Blood Pressure Allergies/Adverse Reactions: Allergies Penicillins [PCN] Allergy (Verified 05/17/18 08:20) Unknown Medications to take at Discharge Glimepiride [Amaryl] 2 mg PO DAILY 05/17/18 Omeprazole [Prilosec] 40 mg PO DAILY 05/18/18 Aspirin E.C. [Ecotrin] 81 mg PO DAILY@0800 tablet 05/21/18 Atorvastatin Calcium [Lipitor] 20 mg PO QHS #30 tablet 05/21/18 Furosemide [Lasix] 40 mg PO DAILY #30 tablet 05/21/18 Isosorbide Mononitrate [Imdur] 60 mg PO DAILY #30 tablet 05/21/18 Lisinopril [Zestril] 20 mg PO BID #60 tablet 05/21/18 Nitroglycerin [Nitrostat] 0.4 mg SUBLINGUAL Q5M PRN #20 tablet 05/21/18 hydrALAZINE [Apresoline] 50 mg PO TID #90 tablet 05/21/18 The following prescriptions were given: Atorvastatin Calcium [Lipitor] 20 mg PO QHS #30 tablet Furosemide [Lasix] 40 mg PO DAILY #30 tablet Isosorbide Mononitrate [Imdur] 60 mg PO DAILY #30 tablet Nitroglycerin [Nitrostat] 0.4 mg SUBLINGUAL Q5M PRN #20 tablet PRN Reason: Cardiac/Chest Pain Lisinopril [Zestril] 20 mg PO BID #60 tablet hydrALAZINE [Apresoline] 50 mg PO TID #90 tablet Primary Care Physician: Delgado Smith [Primary Care Provider] - Within 2 Weeks Test Results: Test results from this visit will be discussed in further detail at your follow- up appointment, if applicable. Please Follow Up With: Fredo Rodriguez MD - Cardiology When: 4 weeks Please Follow Up With: Hang Parker - Cardiothoracic surgery When: 1 week Proposed Discharge Date: 05/21/18
--- NOTE | 2018-05-21 10:50 | PCM.DC.SUM ---
Discharge Date and Diagnosis - Problem List Patient Problems: Active and Suspected Problems CAD (coronary artery disease) (Acute) Dyspnea (Acute) CHF (congestive heart failure) (Acute) Date of Admission: 05/17/18 Date of Discharge: 05/21/18 - Primary Discharge Diagnosis Active and Suspected Problems CAD (coronary artery disease) (Acute) Dyspnea (Acute) CHF (congestive heart failure) (Acute) - Secondary Discharge Diagnosis Chronic Problems Essential hypertension (Chronic) DM2 (diabetes mellitus, type 2) (Chronic) Hospital Course and Treatment Imaging Results: Clinical Impression(s) from Imaging Studies Chest X-Ray 05/17/18 09:10 IMPRESSION: Right lower lobe airspace disease with trace effusion, suggesting pneumonia. Suspect underlying chronic CHF. Electronically Signed: Dylan Garrett MD at 9:28 EST , Service support , Chest CTA 05/17/18 09:23 IMPRESSION: 1. No central or segmental pulmonary embolism. 2. Right more than left lower lobe infiltrates compatible with pneumonia or localized pulmonary edema or atelectasis. 3. Small right and trace left pleural effusions. Mild cardiomegaly. Suspect chronic CHF. Electronically Signed: Dylan Garrett MD at 10:09 EST , Service support , Renal Ultrasound 05/18/18 08:40 IMPRESSION: 1. Prominent kidneys without other abnormality. 2. Normal urinary bladder. Electronically Signed: Jaswinder Tello DO at 22:32 EST Tel [phone], Service support , MD Humberto: cardiology. Procedures: 2-D Echocardiogram, Cardiac catheterization, Stress test Summary of Care Provided: The patient is a 57 year old M presents with shortness of breath. Was found to be in heart failure. He was started on IV lasix. He improved and he lost 11.4 kg with diuresis. Echocardiogram showed an EF of 65%. His CHF was HFpEF. To further evaluate his CHF, he had had a stress test done and it was abnormal. Later, he underwent a LHC by Dr. Paul, and it showed multi-vessel disease: 80% stenosis of the and 100% stenosis of the mid LAD. The mid and distal LAD filled retrogradely via collaterals from the RCA. 90% stenosis of the ostial D1, 80% stenosis of the proximal obtuse marginal, and 78% stenosis of the distal RCA. Cardiology discussed with him and recommended cardiothoracic surgery evaluation. Patient wishes to do that as outpatient. Patient has arranged for follow-up with Dr. Osborne. In the meantime, patient will be on a statin, aspirin, Plavix, lisinopril. Patient also developed and AV block. Initially, it appeared to be a second-degree AV block, type II. But may been a conduction delay associated with amlodipine, which was held. 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 No need for permanent pacemaker. Patient did have some issues with hyponatremia. Patient's initial sodium was 115. Is felt to be related with HCTZ which was discontinued. Today, his sodium is 134. Patient also had issues with hypertension cardiac condition, hydralazine as well as Imdur were added and blood pressure is much improved at this time. [] Patient Problems: Active and Suspected Problems CAD (coronary artery disease) (Acute) Dyspnea (Acute) CHF (congestive heart failure) (Acute) - Physical Exam General: Alert, Cooperative, No apparent distress HEENT: Atraumatic, Normocephalic Oral: Moist Mucosa, No Gingival or Mucosal Lesions/ Ulcerations Neck: No Nodes, Thyroid Normal Size and Texture Lungs: Clear to auscultation, Normal air movement, No rhonchi, No wheeze Cardiovascular: Regular rate, Regular Rhythm, Normal S1, Normal S2, No murmurs Abdomen: Bowel Sounds Present, Soft, Non Tender, Non-Distended, No Hepato-splenomegaly Extremities: No edema, No Calf Tenderness Vital Signs Temp Pulse Resp BP Pulse Ox 37.2 C 88 16 151/69 H 95 05/21/18 09:54 05/21/18 09:54 05/21/18 09:54 05/21/18 09:54 05/21/18 09:54 Oxygen Flow Rate (L/min) 2 Oxygen Delivery Method Room Air Weight: 96.4 kg Body Mass Index (BMI) 31.3 Intake and Output for Last 24 Hours 05/19/18 05/20/18 05/21/18 23:59 23:59 23:59 Intake Total 1557 / 1557 690 / 690 240 / 240 Output Total 4600 / 4600 2950 / 2950 Balance -3043 / -3043 -2260 / -2260 240 / 240 Laboratory Tests Past 24 Hrs 05/21/18 05:05 Sodium 134 L Potassium 3.9 Chloride 96 L Carbon Dioxide 28.0 Anion Gap 10 BUN 18 Creatinine 1.06 Estim Creat Clear Calc 84.80 Est GFR (MDRD) Af Amer 92 Est GFR (MDRD) Non-Af 76 BUN/Creatinine Ratio 17.0 Glucose 130 H Calcium 8.4 L POC Glucose 05/21/18 05/20/18 05/20/18 06:58 21:12 15:20 POC Glucose 144 H 149 H 199 H 05/20/18 12:28 POC Glucose 158 H Discharge Diet: Low fat/ Low Cholesterol, 1800 Calorie Control Diet, 6 Cup Fluid Restriction, 2000 mg Sodium Diet Discharge Activity: - - walking ok. no lifting weight greater than 20 pounds. Call your doctor if you observe: Fever of 101 or Higher, Shortness of breath, Chest pain Home Medications: Medications to take at Discharge Glimepiride [Amaryl] 2 mg PO DAILY 05/17/18 Omeprazole [Prilosec] 40 mg PO DAILY 05/18/18 Aspirin E.C. [Ecotrin] 81 mg PO DAILY@0800 tablet 05/21/18 Atorvastatin Calcium [Lipitor] 20 mg PO QHS #30 tablet 05/21/18 Furosemide [Lasix] 40 mg PO DAILY #30 tablet 05/21/18 Isosorbide Mononitrate [Imdur] 60 mg PO DAILY #30 tablet 05/21/18 Lisinopril [Zestril] 20 mg PO BID #60 tablet 05/21/18 Nitroglycerin [Nitrostat] 0.4 mg SUBLINGUAL Q5M PRN #20 tablet 05/21/18 hydrALAZINE [Apresoline] 50 mg PO TID #90 tablet 05/21/18 Following Prescrptions Were Given to Patient: Atorvastatin Calcium [Lipitor] 20 mg PO QHS #30 tablet Furosemide [Lasix] 40 mg PO DAILY #30 tablet Isosorbide Mononitrate [Imdur] 60 mg PO DAILY #30 tablet Nitroglycerin [Nitrostat] 0.4 mg SUBLINGUAL Q5M PRN #20 tablet PRN Reason: Cardiac/Chest Pain Lisinopril [Zestril] 20 mg PO BID #60 tablet hydrALAZINE [Apresoline] 50 mg PO TID #90 tablet Primary Care Physician: Delgado Smith [Primary Care Provider] - Within 2 Weeks Please Follow Up With: Fredo Rodriguez MD - Cardiology When: 4 weeks Please Follow Up With: Hang Osborne - Cardiothoracic surgery When: 1 week Patient Instructions: Taking CAMILA Inhibitors, Taking Medication to Control Heart Failure, Controlling High Blood Pressure, What Is Heart Failure?, Low-Salt Choices, Heart Failure: Tracking Your Weight, Your High Blood Pressure Risk Factors, What Is High Blood Pressure?, Heart Failure: Making Changes to Your Diet, Heart Failure: Evaluating Your Heart, Heart Failure: Medications to Help Your Heart, Discharge Instructions for Heart Failure, Discharge Instructions for High Blood Pressure (Hypertension), Discharge Instructions: Eating a Low-Salt Diet, Discharge Instructions: Limiting Fluids, Discharge Instructions: Taking Blood Pressure Medications, Discharge Instructions: Taking Diuretics, Discharge Instructions: Taking Your Blood Pressure Disposition: Home Minutes spent on discharge:: 35 Patient Condition:: Fair Medical Necessity - Tobacco Use Smoking Status: Never smoker Tobacco Use: Non-smoker, Secondhand Meaningful Use Info Meaningful Use Diagnoses (Choose all that apply): CHF - CHF CAMILA/ARB ordered at discharge?: Yes Documented LVEF (%): 65 Code Visit Inpatient E&M: 47136 Disch Hosp
--- NOTE | 2018-05-21 10:58 | DS.PCM_ITS ---
Discharge Date and Diagnosis - Problem List Patient Problems: Active and Suspected Problems CAD (coronary artery disease) (Acute) Dyspnea (Acute) CHF (congestive heart failure) (Acute) Date of Admission: 05/17/18 Date of Discharge: 05/21/18 - Primary Discharge Diagnosis Active and Suspected Problems CAD (coronary artery disease) (Acute) Dyspnea (Acute) CHF (congestive heart failure) (Acute) - Secondary Discharge Diagnosis Chronic Problems Essential hypertension (Chronic) DM2 (diabetes mellitus, type 2) (Chronic) Hospital Course and Treatment Imaging Results: Clinical Impression(s) from Imaging Studies Chest X-Ray 05/17/18 09:10 IMPRESSION: Right lower lobe airspace disease with trace effusion, suggesting pneumonia. Suspect underlying chronic CHF. Electronically Signed: Dylan Garrett MD at 9:28 EST , Service support , Chest CTA 05/17/18 09:23 IMPRESSION: 1. No central or segmental pulmonary embolism. 2. Right more than left lower lobe infiltrates compatible with pneumonia or localized pulmonary edema or atelectasis. 3. Small right and trace left pleural effusions. Mild cardiomegaly. Suspect chronic CHF. Electronically Signed: Dylan Garrett MD at 10:09 EST , Service support , Renal Ultrasound 05/18/18 08:40 IMPRESSION: 1. Prominent kidneys without other abnormality. 2. Normal urinary bladder. Electronically Signed: Jaswinder Tello DO at 22:32 EST Tel [phone], Service support , MD Humberto: cardiology. Procedures: 2-D Echocardiogram, Cardiac catheterization, Stress test Summary of Care Provided: The patient is a 57 year old M presents with shortness of breath. Was found to be in heart failure. He was started on IV lasix. He improved and he lost 11.4 kg with diuresis. Echocardiogram showed an EF of 65%. His CHF was HFpEF. To further evaluate his CHF, he had had a stress test done and it was abnormal. Later, he underwent a LHC by Dr. Paul, and it showed multi-vessel disease: 80% stenosis of the and 100% stenosis of the mid LAD. The mid and distal LAD filled retrogradely via collaterals from the RCA. 90% stenosis of the ostial D1, 80% stenosis of the proximal obtuse marginal, and 78% stenosis of the distal RCA. Cardiology discussed with him and recommended cardiothoracic surgery evaluation. Patient wishes to do that as outpatient. Patient has arranged for follow-up with Dr. Osborne. In the meantime, patient will be on a statin, aspirin, Plavix, lisinopril. Patient also developed and AV block. Initially, it appeared to be a second- degree AV block, type II. But may been a conduction delay associated with amlodipine, which was held. 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 No need for permanent pacemaker. Patient did have some issues with hyponatremia. Patient's initial sodium was 115. Is felt to be related with HCTZ which was discontinued. Today, his sodium is 134. Patient also had issues with hypertension cardiac condition, hydralazine as well as Imdur were added and blood pressure is much improved at this time. [] Patient Problems: Active and Suspected Problems CAD (coronary artery disease) (Acute) Dyspnea (Acute) CHF (congestive heart failure) (Acute) - Physical Exam General: Alert, Cooperative, No apparent distress HEENT: Atraumatic, Normocephalic Oral: Moist Mucosa, No Gingival or Mucosal Lesions/ Ulcerations Neck: No Nodes, Thyroid Normal Size and Texture Lungs: Clear to auscultation, Normal air movement, No rhonchi, No wheeze Cardiovascular: Regular rate, Regular Rhythm, Normal S1, Normal S2, No murmurs Abdomen: Bowel Sounds Present, Soft, Non Tender, Non-Distended, No Hepato- splenomegaly Extremities: No edema, No Calf Tenderness Vital Signs Temp Pulse Resp BP Pulse Ox 37.2 C 88 16 151/69 H 95 05/21/18 09:54 05/21/18 09:54 05/21/18 09:54 05/21/18 09:54 05/21/18 09:54 Oxygen Flow Rate (L/min) 2 Oxygen Delivery Method Room Air Weight: 96.4 kg Body Mass Index (BMI) 31.3 Intake and Output for Last 24 Hours 05/19/18 05/20/18 05/21/18 23:59 23:59 23:59 Intake Total 1557 / 1557 690 / 690 240 / 240 Output Total 4600 / 4600 2950 / 2950 Balance -3043 / -3043 -2260 / -2260 240 / 240 Laboratory Tests Past 24 Hrs 05/21/18 05:05 Sodium 134 L Potassium 3.9 Chloride 96 L Carbon Dioxide 28.0 Anion Gap 10 BUN 18 Creatinine 1.06 Estim Creat Clear Calc 84.80 Est GFR (MDRD) Af Amer 92 Est GFR (MDRD) Non-Af 76 BUN/Creatinine Ratio 17.0 Glucose 130 H Calcium 8.4 L POC Glucose 05/21/18 05/20/18 05/20/18 06:58 21:12 15:20 POC Glucose 144 H 149 H 199 H 05/20/18 12:28 POC Glucose 158 H Discharge Diet: Low fat/ Low Cholesterol, 1800 Calorie Control Diet, 6 Cup Fluid Restriction, 2000 mg Sodium Diet Discharge Activity: - - walking ok. no lifting weight greater than 20 pounds. Call your doctor if you observe: Fever of 101 or Higher, Shortness of breath, Chest pain Home Medications: Medications to take at Discharge Glimepiride [Amaryl] 2 mg PO DAILY 05/17/18 Omeprazole [Prilosec] 40 mg PO DAILY 05/18/18 Aspirin E.C. [Ecotrin] 81 mg PO DAILY@0800 tablet 05/21/18 Atorvastatin Calcium [Lipitor] 20 mg PO QHS #30 tablet 05/21/18 Furosemide [Lasix] 40 mg PO DAILY #30 tablet 05/21/18 Isosorbide Mononitrate [Imdur] 60 mg PO DAILY #30 tablet 05/21/18 Lisinopril [Zestril] 20 mg PO BID #60 tablet 05/21/18 Nitroglycerin [Nitrostat] 0.4 mg SUBLINGUAL Q5M PRN #20 tablet 05/21/18 hydrALAZINE [Apresoline] 50 mg PO TID #90 tablet 05/21/18 Following Prescrptions Were Given to Patient: Atorvastatin Calcium [Lipitor] 20 mg PO QHS #30 tablet Furosemide [Lasix] 40 mg PO DAILY #30 tablet Isosorbide Mononitrate [Imdur] 60 mg PO DAILY #30 tablet Nitroglycerin [Nitrostat] 0.4 mg SUBLINGUAL Q5M PRN #20 tablet PRN Reason: Cardiac/Chest Pain Lisinopril [Zestril] 20 mg PO BID #60 tablet hydrALAZINE [Apresoline] 50 mg PO TID #90 tablet Primary Care Physician: Delgado Smith [Primary Care Provider] - Within 2 Weeks Please Follow Up With: Fredo Rodriguez MD - Cardiology When: 4 weeks Please Follow Up With: Hang Osborne - Cardiothoracic surgery When: 1 week Patient Instructions: Taking CAMILA Inhibitors, Taking Medication to Control Heart Failure, Controlling High Blood Pressure, What Is Heart Failure?, Low-Salt Choices, Heart Failure: Tracking Your Weight, Your High Blood Pressure Risk Factors, What Is High Blood Pressure?, Heart Failure: Making Changes to Your Diet, Heart Failure: Evaluating Your Heart, Heart Failure: Medications to Help Your Heart, Discharge Instructions for Heart Failure, Discharge Instructions for High Blood Pressure (Hypertension), Discharge Instructions: Eating a Low-Salt Diet, Discharge Instructions: Limiting Fluids, Discharge Instructions: Taking Blood Pressure Medications, Discharge Instructions: Taking Diuretics, Discharge Instructions: Taking Your Blood Pressure Disposition: Home Minutes spent on discharge:: 35 Patient Condition:: Fair Medical Necessity - Tobacco Use Smoking Status: Never smoker Tobacco Use: Non-smoker, Secondhand Meaningful Use Info Meaningful Use Diagnoses (Choose all that apply): CHF - CHF CAMILA/ARB ordered at discharge?: Yes Documented LVEF (%): 65 Code Visit Inpatient E&M: 99614 Disch Hosp
--- NOTE | 2018-05-21 12:14 | PHA.DC.MC ---
Pharmacy Service has performed discharge medication reconciliation and counseling for this patient. The patient's discharge medication list was reviewed for discrepancies and discrepancies were resolved. The patient was counseled on the following discharge medications and changes in medications for homegoing were reviewed. 1. Aspirin E.C. [Ecotrin] 81 mg PO DAILY@0800 tablet 05/21/18 2. Atorvastatin Calcium [Lipitor] 20 mg PO QHS #30 tablet 05/21/18 3. Furosemide [Lasix] 40 mg PO DAILY #30 tablet 05/21/18 4. Isosorbide Mononitrate [Imdur] 60 mg PO DAILY #30 tablet 05/21/18 5. Lisinopril [Zestril] 20 mg PO BID #60 tablet 05/21/18 6. Nitroglycerin [Nitrostat] 0.4 mg SUBLINGUAL Q5M PRN #20 tablet 05/21/18 7. hydrALAZINE [Apresoline] 50 mg PO TID #90 tablet 05/21/18 The Reason for Use, instructions for use, and potential side effects were reviewed for all new medications. The patient's questions regarding all of their medications were answered. The patient was able to verbally demonstrate an understanding of their discharge medications. Home Medications Glimepiride [Amaryl] 2 mg PO DAILY 05/17/18 Omeprazole [Prilosec] 40 mg PO DAILY 05/18/18 Aspirin E.C. [Ecotrin] 81 mg PO DAILY@0800 tablet 05/21/18 Atorvastatin Calcium [Lipitor] 20 mg PO QHS #30 tablet 05/21/18 Furosemide [Lasix] 40 mg PO DAILY #30 tablet 05/21/18 Isosorbide Mononitrate [Imdur] 60 mg PO DAILY #30 tablet 05/21/18 Lisinopril [Zestril] 20 mg PO BID #60 tablet 05/21/18 Nitroglycerin [Nitrostat] 0.4 mg SUBLINGUAL Q5M PRN #20 tablet 05/21/18 hydrALAZINE [Apresoline] 50 mg PO TID #90 tablet 05/21/18
== END 2018-05-21 12:34 | disposition home or self-care (01) | DRG 192 ==
LOC: ED 09:06 → PCU 11:01 → ICU 15:03 → PCU 05-20 18:07
PROVIDERS: Internal Medicine Cardiovascular Disease; Admitting Provider Internal Medicine; Emergency Provider Emergency Medicine; Family Provider Family Medicine; PCP Family Medicine
DX: I11.0 Hypertensive heart disease with heart failure (principal); I50.31 Acute diastolic (congestive) heart failure; E87.1 Hypo-osmolality and hyponatremia; E66.9 Obesity, unspecified; I44.1 Atrioventricular block, second degree; Z77.22 Contact with and (suspected) exposure to environmental tobacco smoke (acute) (chronic); E11.9 Type 2 diabetes mellitus without complications; I25.10 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of native coronary artery without angina pectoris; Z68.31 Body mass index [BMI] 31.0-31.9, adult; Z85.828 Personal history of other malignant neoplasm of skin; Z79.84 Long term (current) use of oral hypoglycemic drugs
CPT/HCPCS: 36415; 71046; 71275; 76770; 78452; 80048; 80053; 82962; 83735; 83880; 84443; 84484; 85025; 85027; 85379; 85610; 85730; 93005; 93017; 93306; 93454; 94640; 99152; 99153; 99251; 99283; A9500; Q9967; A4216; C1769; C1894; G0463; J1940

== ENCOUNTER → 2018-08-07 | Outpatient (CLI) | payer MEDICAID, SELFPAY ==
[2018-07-25 07:14] VITALS: BMI 27.8
--- NOTE | 2018-08-07 11:57 | CR.ITP_ITS ---
General Information - General Information Admitting Diagnosis: CABG - Education/Goals Barriers to Learning: Vision Impairment - wears glasses Individual Counseling: Initial Assessment: Abnormal Cholesterol Levels, High Blood Pressure, Overweight/Obesity, Diabetes, Hypertension, Stress Cardiac Rehabilitation Goals: 1. Maintain the individual as the primary focus of care. 2. To improve the patient's quality of life. 3. Identification of cardiac risk factors and provide cardiac risk factor management. 4. Enhance the psychosocial status of the patient. 5. Reconditioning enough to allow the patient to resume customary activities. 6. Control symptoms of cardiac disease Scale for measuring improvement of personal goals: Enter appropriate number in Comments. 2 = Unchanged. 3 = Slightly Better. 4 = Moderate Improvement. 5 = Met my Goal Personal Goals: Initial Assessment: Improve management of stress and emotions, Improve energy level, Get back to work, or to resume activities faster, Improve muscle strength and endurance, Improve diet and eating habits (eat healthier), Control risk factors (learn risk factor modification), Other goal: Nutrition - Initial Assessment - Program Goals Nutrition Program Goals: LDL <70. Total Cholesterol <200. HDL >45. Triglycerides <150. HgbA1C <7%. BMI <25 - Visit Date of Assessment:: 08/07/18 - Stages of Change Stages of Change:: Action - Lipids Total Cholesterol (mg/dL) Goal = less than 200 mg/dL: 129 HDL Cholesterol (mg/dL) Goal = less than 45 mg/dL: 63 LDL Cholesterol (mg/dL) Goal = less than 70 mg/dL: 51 Triglycerides (mg/dL) Goal = less than 150 mg/dL: 76 Lipid Medication: Atorvastatin - Diabetes Diabetes:: Yes Fasting blood glucose:: 120 Hgb A1C: 6.1 Insulin: No Non-Insulin Dependent?: Yes Do you monitor your blood sugar at home?: Yes - Weight Management Height: 6 ft 1 in Weight:: 211 lb Weight Goal (kg):: 200 lb Body Fat %:: 27.2 Goal % Body Fat:: 24 - Intervention Referral to dietitian:: Yes Referral to Diabetic Clinic:: Yes Will attend diet classes:: Yes - Education Gave educational materials for:: Signs & symptoms of hypoglycemia, Signs & symptoms of hyperglycemia, Relate diabetes to coronary artery disease, Healthy eating Tobacco - Initial Assessment - Program Goals Tobacco Program Goals: Complete smoking cessation. Attend education classes. Improve Knowledge Test score - Stage of Change Stages of Change:: Maintenance - Learning Barriers Learning Barriers: Vision, Ready to Learn Total Score:: 20 - Family Support Do you have family support?: Yes - Tobacco Use Tobacco Use: Non-smoker - Intervention Smoking Cessation Referral:: No Individual Education/Counseling:: No Education Schedule Given:: Yes - Education Gave educational material for:: Coronary artery disease, Risk factors, Sexuality, Medical compliance, Cardiac A&P, Angina signs & symptoms Psychosocial - Initial Assess - Target Goals Target Goals: Assess presence or absence of depression. Using a valid screening tool, maximizes coping skills. Positive support system - Stages of Change Stages of Change:: Action - Psychosocial Test Tool Used:: HANDS Depression Questionnaire Self-reported stress:: work Tests Completed: SF - 36 survey completed, Mood Scale Test Total Mood Screening Score:: 9 Self-Efficacy Score:: 7 - Intervention PS - Interventions: Yes Attend Stress Management Classes, Yes Uses Stress Management Skills, No Referral to Mental Health, No Referral to [facility] Case Management, No Referral to Physician - Education Gave educational materials for:: Coping techniques, Signs & symptoms of depression, Stress management, Relaxation techniques - Patient/Program Goal Preventative Medication(s):: Aspirin, CAMILA inhibitor, Clopidogrel, Beta leonardo, Statin/lipid - Assistive Devices Assistive Devices:: None Fall Risk Assessed:: Yes Patient Health Questionnaire Initial Assessment 1. Little interest or pleasure in doing things: Several days 2. Feeling down, depressed, or hopeless: Several days 3. Trouble falling or staying asleep, or sleeping too much: More than half the days 4. Feeling tired or having little energy: Several days 5. Poor appetite or overeating: Several days 6. Feeling bad about yourself -- or that you are a failure or have let yourself or your family down: Several days 7. Trouble concentrating on things, such as reading the newspaper or watching television: Several days 8. Moving or speaking so slowly that other people could have noticed. Or the opposite - being so fidgety or restless that you have been moving around a lot more than usual: Several days 9. Thoughts that you would be better off , or of hurting yourself in some way: Not at all How difficult have these problems made it for you to do your work, take care of things at home, or get along with other people?: Somewhat difficult Total Score: 9 DIEGO-Q SV Test - Statements CAD is a disease of the arteries in the heart: False Examples of risk factors for heart disease: True Angina is chest pain or discomfort: True The benefits of resistance training include: True Eating more meat and dairy products: False Anti-platelet medications such as aspirin are important: True The only effective way to manage stress: False An exercise warm-up slowly increases heart rate: True Prepared, processed foods usually have high sodium: True Depression is common after a heart attack: True The statin medications lower cholesterol: True To control blood pressure, lower the amount of sodium: True If someone gets chest discomfort during walking: False Transfats are partially hydrogenated vegetable oils: True Sleep apnea that is not treated increases the risk: False To control cholesterol, one should become a vegetarian: False Someone knows if he/she is exercising at the right level: True Diabetes cannot be prevented with exercise & health eating: False Stress is a large risk for heart attack: True A diet that can help lower blood pressure is rich in: True - Total Score Total Correct Responses: 20 Self-Efficacy Initial Assessment We would like to know how confident you are in doing certain activities. Please select your confidence level for:: Select your confidence level for the following using the scale 1-10 where 1 is not at all confident and 10 is totally confident. Your score is the average of all 6 responses. Fatigue: How confident are you that you can keep the fatigue caused by your disease from interfering with the things you want to do? Select Number: 7 Physical Discomfort or Pain: How confident are you that you can keep the physical discomfort or pain of your disease from interfering with the things you want to do? Select Number: 8 Emotional Distress: How confident are you that you can keep the emotional distress caused by your disease from interfering with the things you want to do? Select Number: 8 Other Symptoms or Health Problems: How confident are you that you can keep other symptoms or health problems from interfering with the things you want to do? Select Number: 6 Different Tasks and Activities: How confident are you that you can do the different tasks and activities needed to manage your health condition so as to reduce your need to see a doctor? Select Number: 8 Medication: How confident are you that you can do things other than just taking medication to reduce how much your illness affects your everyday life? Select Number: 7 Total Score:: 7 Nutrition Survey - Nutrition Survey Instructions Scoring Instructions: Scoring is as follows: Yes = 1 points. No = 0 point. Patient score that is >/=12 is considered to be at potential nutritional risk and could benefit from a referral to a registered dietitian. - Nutrition Survey Initial Have you lost >10 lbs over the past 2 months without trying?: No Are you following a special diet at home for diabetes, low fat, or low salt?: Yes Are you interested in meeting with a dietitian for help understanding your diet?: Yes Do you eat less than 3 meals a day?: No Do you eat fatty meats (lorenzo, sausage, ribs, etc), fried foods, desserts, large amounts of salad dressings, margarine, butter, or cheese most days?: No Do you have food allergies? [Enter types in comment field]: No Do you eat in restaurants more than 3 times a week?: No Do you season food with salt, seasoning salt, or garlic salt?: No Do you used canned, boxed, frozen meals, or soups, seasoning packets?: No Total Score:: 2
--- NOTE | 2018-08-07 12:03 | CR.HP_ITS ---
CR - History & Physical - General Arrival date:: 08/07/18 Arrival time:: 11:53 Date of Referral:: 08/07/18 Date of CR Evaluation:: 08/07/18 Referring Physician: Dr. Sada Rodriguez Primary Diagnosis: CABG - History of Present Cardiac Event Onset Date: Enter Onset Date of cardiac illnesses in Comment field below Current stable Angina Pectoris:: Yes - 05/26/18 Acute Myocardial Infarction within 12 months:: No Coronary Artery Bypass Graft:: Yes - 06/12/18 Heart valve replacement or repair:: No PTCA or coronary stenting:: No Heart or Heart-Lung Transplant:: No Heart Failure EF <35%:: No Type of Symptoms:: SOB and legs swelling, gaining weight. Interventions with present event:: heart cath Were there any complications?: block, afib - Medications Home Medications: Ambulatory Orders Medication Instructions Recorded Aspirin E.C. [Ecotrin] 81 mg PO DAILY@0800 tab 05/21/18 Lisinopril [Zestril] 20 mg PO BID #60 tab 05/21/18 Nitroglycerin [Nitrostat] 0.4 mg SUBLINGUAL Q5M PRN #20 tab 05/21/18 atorvastatin 80 mg tablet 80 mg PO QHS 07/24/18 glimepiride 2 mg tablet 1 mg PO DAILY tab 07/24/18 pantoprazole 40 mg tablet,delayed 40 mg PO DAILY 07/24/18 release amlodipine 5 mg tablet 5 mg PO DAILY #90 tab 07/25/18 furosemide 20 mg tablet 20 mg PO DAILY PRN 07/25/18 - Allergies Allergies/Adverse Reactions: Allergies Penicillins [PCN] Allergy (Verified 07/25/18 07:15) Unknown - Sleep Disorder Evaluation Hx of Sleep Apnea: No Do you snore loudly (louder than talking or can be heard through closed doors)?: Yes Do you often feel tired/ fatigued/ sleepy during daytime?: No Has anyone observed you stop breathing during sleep?: No History of Hypertension (for STOP score): Yes STOP Results: Positive Advanced Directives - Advanced Directives Power of Supportability Engineer: No Living Will: No Advance Directives Information Provided: Yes Advance Directives on File: No DNR Order?:: Yes Past Medical History - Past Medical Illness Medical History: Past Medical History (Last Reviewed 07/25/18 @ 08:52 by Fredo Rodriguez MD) Postoperative atrial fibrillation (Chronic) Onset Date: 06/12/18 I97.89, I48.91 Sinus bradycardia (Chronic) R00.1 Diastolic dysfunction with acute on chronic heart failure (Chronic) I50.33 Atherosclerosis of coronary artery without angina pectoris (Chronic) I25.10 CABG x 3 WALL-LAD, Free MAIK-OM, SVG-RPDA 06/12/18 Essential hypertension (Chronic) I10 Cataracts, both eyes H26.9 Diabetic retinopathy E11.319 GERD (gastroesophageal reflux disease) K21.9 Normocytic anemia D64.9 Obesity (BMI 30.0-34.9) E66.9 Type 2 diabetes mellitus E11.9 - Past Surgical History Surgical History: Past Surgical History (Last Reviewed 07/25/18 @ 08:52 by Fredo Rodriguez MD) H/O coronary artery bypass surgery (Resolved) Onset Date: 06/12/18 Z95.1 CABG x 3 WALL-LAD, Free MAIK-OM, SVG-RPDA 06/12/18 Amputated toe S98.139A History of left heart catheterization Onset Date: 05/20/18 Z98.890 Hx of cholecystectomy Z90.49 S/P meniscectomy Z98.890 Surgical History: cataract, cholecystectomy, coronary bypass surgery, total knee arthroplasty, - - toe partial amputation, skin cancer facial - Family History Summary Family History: Family History (Last Reviewed 07/25/18 @ 08:52 by Fredo Rodriguez MD) Mother Diabetes Social History - Smoking History Smoking Status: Never smoker Hx Tobacco Use: No Hx Smoking Exposure: Yes - friends - Alcohol Use Alcohol Usage: Yes - beers ~10 weekly - Substance Abuse Hx Substance Use: No - Occupation Occupation (List type of work in comments):: 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 Left click = Reports ([place]incon) Review of Present Symptoms: Reports: PVD, Operative Discomfort, Wound Healing, Heart Arrhythmia/Irregularities - occas when blood sugar goes low., Appetite - Normal, Appetite - Special Diet, Sleep - Normal. Denies: Shortness of Breath at Rest, Shortness of Breath with Exertion, Angina, Dizziness/Lightheadedness, Fatigue, Sexual Changes - Pain Is Patient Pain Free?: Yes Previous experience dealing with pain?: pain meds, positional Risk Factor Assessment - Chief Complaint Chief Complaint: CR s/p CABG - Vital Signs Pulse Ox: 100 - Pulse Pulse Rate: 69 Pulse Rhythm: Regular - Hypertension How long have you been treated?: 2002 On medication(s)?: yes Blood Pressure Sitting - Right Arm: 160/84 Blood Pressure Sitting - Left Arm: 142/80 - Stress Stress: Recent, Work-related - Blood Cholesterol/Lipids Total Cholesterol (mg/dL) Goal = less than 200 mg/dL: 129 HDL Cholesterol (mg/dL) Goal = less than 40 mg/dL: 63 LDL Cholesterol (mg/dL) Goal = less than 70 mg/dL: 51 Triglycerides (mg/dL) Goal = less than 150 mg/dL: 76 - Diabetes Diabetic History: Type II, Medication Dependent Nutrition Referral for Diabetes: Yes - Obesity Height: 6 ft 2 in Weight:: 211 lb Weight in Pounds: 211.0 lbs Weight Source: Stated by Patient Body Mass Index (BMI): 27.1 Desired Body Weight: 200 Realistic Weight Goal (Loss of 1-2 lbs/week): 200 Nutritional Referral for Obesity: Yes - Physical Inactivity Physical Inactivity: Reg Exercise 30 min/day - Risk Stratification Risk Guidelines: Lowest Risk: Risk Factor for Smoking, Risk Factor for Dyslipidemia, Risk Factor for Sedentary Lifestyle, Moderate Risk: Risk Factor for Obesity, Risk Factor for Hypertension, Risk Factor for Depression, Highest Risk: Risk Factor for Diabetes - For Smoking Smoking Risk Guidelines: Smoking Low Risk: None or quit greater than 6 months ago. Smoking Moderate Risk: Smoker or quit 6 months or less ago. Smoking High Risk: Smoker - For Dyslipidemia Dyslipidemia Risk Guidelines: Low Risk: Moderate Risk: High Risk: 15-25% fat 25.1-29% fat >/= 30% fat. <7% sat fat 7-9% sat fat >9% sat fat. <150 mg chol 150-299 mg chol >/= 300 mg chol. LDL <100 LDL 100-129 LDL >/= 130. Chol/HDL ratio <5.0 Chol/HDL ratio 5.0-6.0 Chol/HDL ratio >6.0. Triglycerides <100 Triglycerides 100- 149 Triglycerides >/= 150 - For Diabetes Mellitus Diabetes Risk Guidelines: Diabetes Low Risk: HgA1c <6.5% and/or FBG <120. Diabetes Moderate Risk: HgA1c 6.6-7.9% and/or FBG 120-180. Diabetes High Risk: HgA1c >/= 8% and/or FBG >180 - For Obesity/Overweight Obesity/Overweight Risk Guidelines: Obesity Low Risk: BMI <25.0. Obesity Moderate Risk: BMI 25-29.9. Obesity High Risk: BMI >/= 30.0 - For Hypertension Hypertension Risk Guidelines: Hypertension Low Risk: Systolic <120 and Diastolic <80. Hypertension Moderate Risk: Systolic 120-139 and Diastolic 80-89. Hypertension High Risk: Systolic >/= 140 and Diastolic >/= 90 - For Sedentary Lifestyle Sedentary Lifestyle Risk Guidelines: Sedentary Lifestyle Low Risk: >/= 1,500 kcal/week. Sedentary Lifestyle Moderate Risk: 700-1,499 kcal/week. Sedentary Lifestyle High Risk: < 700 kcal/week - For Depression Depression Risk Guidelines: Depression Low Risk: Not clinically depressed. Depression Moderate Risk: Mildly depressed. Depression High Risk: Clinically depressed - Family History Family History: Family History (Last Reviewed 07/25/18 @ 08:52 by Fredo Rodriguez MD) Mother Diabetes Motivation - Motivation to Participate On a scale of 1 to 10, how prepared are you to commit to attending program?: 10
[2018-08-07 13:08] VITALS: BP 142/80; BP 160/84; PULSE 69; O2SAT 100; BMI 27.1
== END | disposition home or self-care (01) ==
LOC: CR 11:46
PROVIDERS: Family Provider Family Medicine; PCP Family Medicine; Referring Provider Internal Medicine Cardiovascular Disease; Visit Provider Internal Medicine Cardiovascular Disease
DX: Z95.1 Presence of aortocoronary bypass graft (principal)

== ENCOUNTER 2018-08-11 06:37 | Outpatient (RCR) | payer MEDICAID, SELFPAY ==
[2018-08-07 13:08] VITALS: BMI 27.1
== END 2018-08-12 23:59 ==
LOC: CR 06:37
PROVIDERS: Family Provider Family Medicine; PCP Family Medicine; Referring Provider Internal Medicine Cardiovascular Disease; Visit Provider Internal Medicine Cardiovascular Disease
DX: I11.0 Hypertensive heart disease with heart failure (principal); I50.33 Acute on chronic diastolic (congestive) heart failure; Z95.1 Presence of aortocoronary bypass graft
CPT/HCPCS: 93798

== ENCOUNTER 2018-09-03 11:30 | Outpatient (RCR) | payer MEDICAID, SELFPAY ==
[2018-08-07 13:08] VITALS: BMI 27.1
--- NOTE | 2018-09-05 08:55 | PCM.CR.ITP ---
Exercise - 30-day Assessment - Visit Date of Eval: 09/05/18 Session #:: 12 - Stages of Change Stages of Change:: Action - Physician Prescribed Exercise Modalities: Treadmill, Rower, Airdyne Frequency (days/week): 3 Duration (Minutes):: 30-45 Intensity: 60-80% age predicted maximum heart rate reserve METs - Progression: 0.5-1.0 MET, RPE 11-14 WEEK: 4.5 Target Heart Rate:: 127-139 - Hypertension Resting Blood Pressure:: 120/70 Peak Exercise Blood Pressure:: 160/70 Medication Changes:: No - Intervention Home Exercise/Activity Goal:: Moderate Exercise 30 min/day x 5 days/wk - Education Goals:: Warm-up, RPE PETER Scale, S/S, Safe Exercise, Self-Monitoring - Exercise Program Goals Exercise Program Goals: Aerobic Activity >30 min Nutrition - Initial Assessment - Program Goals Nutrition Program Goals: LDL <70. Total Cholesterol <200. HDL >45. Triglycerides <150. HgbA1C <7%. BMI <25 - Diabetes Do you monitor your blood sugar at home?: Yes Nutrition - 30-Day Assessment - Program Goals Nutrition Program Goals: LDL <70. Total Cholesterol <200. HDL >45. Triglycerides <150. HgbA1C <7%. BMI <25 - Visit Date of Eval: 09/05/18 - Stages of Change Stages of Change:: Action - Lipids Has the patient seen the dietitian?: No - Diabetes Diabetes:: No Insulin: No Non-Insulin Dependent?: No - Weight Management Weight:: 217 lb - up 6 pounds - Intervention Referral to dietitian:: No Referral to Diabetic Clinic:: No Will attend diet classes:: Yes - Education Attended class for:: Healthy eating Tobacco - Initial Assessment - Program Goals Tobacco Program Goals: Complete smoking cessation. Attend education classes. Improve Knowledge Test score - Learning Barriers Learning Barriers: Vision, Ready to Learn Tobacco - 30-Day Assessment - Program Goals Tobacco Program Goals: Complete smoking cessation. Attend education classes. Improve Knowledge Test score - Stage of Change Stages of Change:: Action - Learning Barriers Learning Barriers: Participates in education - Family Support Do you have family support?: Yes - Tobacco Use Tobacco Use: Non-smoker Do you use smokeless tobacco?: No - Intervention Smoking Cessation Referral:: No Individual Education/Counseling:: No Education Schedule Given:: Yes - Education Attended class for:: Coronary artery disease, Risk factors, Sexuality, Medical compliance, Cardiac A&P, Angina signs & symptoms Psychosocial - Initial Assess - Target Goals Target Goals: Assess presence or absence of depression. Using a valid screening tool, maximizes coping skills. Positive support system - Psychosocial Test Tool Used:: HANDS Depression Questionnaire - Assistive Devices Fall Risk Assessed:: Yes Psychosocial - 30-Day Assess - Target Goals Target Goals: Assess presence or absence of depression. Using a valid screening tool, maximizes coping skills. Positive support system - Stages of Change Stages of Change:: Action - Psychosocial Test Tool Used:: HANDS Depression Questionnaire - Intervention PS - Interventions: Yes Attend Stress Management Classes, Yes Uses Stress Management Skills, No Referral to Mental Health, No Referral to [facility] Case Management, No Referral to Physician - Education Attended classes for:: Coping techniques, Signs & symptoms of depression, Stress management, Relaxation techniques - Patient/Program Goal Preventative Medication(s):: Aspirin, Clopidogrel, Beta leonardo - Assistive Devices Assistive Devices:: None Fall Risk Assessed:: Yes Patient Health Questionnaire 30-Day Re-eval Assessment 1. Little interest or pleasure in doing things: Several days 2. Feeling down, depressed, or hopeless: Several days 3. Trouble falling or staying asleep, or sleeping too much: More than half the days 4. Feeling tired or having little energy: Not at all 5. Poor appetite or overeating: Not at all 6. Feeling bad about yourself -- or that you are a failure or have let yourself or your family down: Several days 7. Trouble concentrating on things, such as reading the newspaper or watching television: Several days 8. Moving or speaking so slowly that other people could have noticed. Or the opposite - being so fidgety or restless that you have been moving around a lot more than usual: Not at all 9. Thoughts that you would be better off , or of hurting yourself in some way: Not at all How difficult have these problems made it for you to do your work, take care of things at home, or get along with other people?: Somewhat difficult Total Score: 6 Self-Efficacy 30-Day Re-eval Assessment We would like to know how confident you are in doing certain activities. Please select your confidence level for:: Select your confidence level for the following using the scale 1-10 where 1 is not at all confident and 10 is totally confident. Your score is the average of all 6 responses. Fatigue: How confident are you that you can keep the fatigue caused by your disease from interfering with the things you want to do? Select Number: 7 Physical Discomfort or Pain: How confident are you that you can keep the physical discomfort or pain of your disease from interfering with the things you want to do? Select Number: 8 Emotional Distress: How confident are you that you can keep the emotional distress caused by your disease from interfering with the things you want to do? Select Number: 8 Other Symptoms or Health Problems: How confident are you that you can keep other symptoms or health problems from interfering with the things you want to do? Select Number: 6 Different Tasks and Activities: How confident are you that you can do the different tasks and activities needed to manage your health condition so as to reduce your need to see a doctor? Select Number: 8 Medication: How confident are you that you can do things other than just taking medication to reduce how much your illness affects your everyday life? Select Number: 7 Total Score:: 7
[2018-09-05 09:00] VITALS: BP 120/70; BP 160/70
== END 2018-09-12 23:59 ==
LOC: CR 11:30
PROVIDERS: Family Provider Family Medicine; PCP Family Medicine; Referring Provider Internal Medicine Cardiovascular Disease; Visit Provider Internal Medicine Cardiovascular Disease
DX: I11.0 Hypertensive heart disease with heart failure (principal); I50.33 Acute on chronic diastolic (congestive) heart failure; I25.10 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of native coronary artery without angina pectoris; Z95.1 Presence of aortocoronary bypass graft
CPT/HCPCS: 93798

== ENCOUNTER 2018-09-09 10:52 | Inpatient (IN) | payer MEDICAID, SELFPAY ==
[2018-08-07 13:08] VITALS: BMI 27.1
[2018-09-09] VITALS (12 sets, daily range): BP systolic 179–197; BP diastolic 85–102; PULSE 85–113; RESP 16–22; TEMP 37.2–39.5; O2SAT 85–98; BMI 28.2; BMI 29.0; BMI 29.1
--- NOTE | 2018-09-09 11:17 | EKG12_ITS ---
Test Reason : FEVER Blood Pressure : / mmHG Vent. Rate : 088 BPM Atrial Rate : 088 BPM P-R Int : 180 ms QRS Dur : 088 ms QT Int : 388 ms P-R-T Axes : 035 032 058 degrees QTc Int : 469 ms Normal sinus rhythm Normal ECG Confirmed by TRESA SPENCER ([id number]), sound editor GALINDO BECKFORD ([id number]) on 09/11/2018 8:38:56 AM Referred By: Fredo Rodriguez Confirmed By:TRESA SPENCER
--- NOTE | 2018-09-09 11:18 | CT_ITS ---
STUDY: CTA CHEST REASON FOR EXAM: Male, 58 years old. Pleuritic chest pain. Recent CABG. RADIATION DOSAGE (If Supplied By Facility): CTDIvol = ( 13.61 ) mGy, DLP = ( 550.88 ) mGycm TECHNIQUE: The examination was performed with the intravenous administration of 100 IV Isovue 370. Post-processing of the angiographic images was performed, with multiplanar reformation and 3D reconstruction. Individualized dose optimization techniques were used for this CT. COMPARISON: Comparison is made with prior study dated May 17, 2018. FINDINGS: Normal enhancement of the main pulmonary artery and right and left pulmonary arteries. Normal enhancement of the bilateral peripheral pulmonary arteries. There is no demonstrated pulmonary embolism. Normal thoracic aorta and visualized great vessels. There is no demonstrated aortic dissection. Sternal cerclage wires and vascular clips are present from a prior sternotomy and coronary artery bypass graft procedure (CABG). Normal mediastinum. Normal hilar regions. Normal visualized trachea and bronchi. The lungs are well expanded. Normal pulmonary parenchyma. Normal pleura. Normal chest wall structures. There are degenerative changes of thoracic spine. Normal visualized upper abdomen. CT/CTA Chest W/WO Contrast IMPRESSION: Mild degree of increased markings at the lung bases suggestive of scarring. Electronically Signed: Emir Kwan, at 12:53 EDT , Service support ,
[2018-09-09] MEDS: Morphine 4 MG/ML Syringe IV (11:49)
[2018-09-09] MEDS: Ondansetron 4 MG/2 ML Vial IV (11:49)
[2018-09-09] MEDS: 0.9% Normal Saline 1,000 ML 150 ML IV (11:49)
[2018-09-09 11:57] LABS: Absolute Lymphocyte Count 0.37 X10^3/ul (0.83-4.51); Absolute Neutrophil Count 7.3 X10^3/uL (2.0-7.7); Basophil# 0.02 X10^3/uL; Basophil% 0.2 % (0-1); Hematocrit 31.5 % (40-54); Hemoglobin 10.9 g/dl (13.0-16.5); Lymphocyte # 0.37 X10^3/ul (4.0); Lymphocyte % 4.2 % (19-41); Mean Corp Hgb Conc 34.6 g/gl (32-36); Mean Corpuscular Hgb 29.8 pg (27.0-32.0); Mean Corpuscular Volume 86.1 fL (80-94); Mean Platelet Vol. 9.5 fl (6.2-12.0); Monocyte# 1.18 X10^3/uL; Monocyte% 13.2 % (0-10); Neutrophil # 7.33 X10^3/uL (2.7-7.7); Neutrophil % 82.3 % (47-70); Platelet Count 219 K/mm3 (150-450); RBC Distribution Width CV 13.2 % (11.6-14.6); RBC Distribution Width SD 41.9 fl (35.1-43.9); Red Blood Count 3.66 M/mm3 (4.6-6.2); White Blood Count 8.9 K/mm3 (4.4-11.0)
[2018-09-09 12:02] LABS: Differential Indicated SCAN CRITERIA MET; POSITIVE COUNT NO; POSITIVE DIFFERENTIAL YES; POSITIVE MORPHOLOGY NO
[2018-09-09 12:06] LABS: ALB/GLOB Ratio 0.8 RATIO (0.9-2.4); AST(SGOT) 29 U/L (15-37); Alanine Aminotransfer ALT/SGPT 27 U/L (16-61); Albumin, Serum 3.5 g/dL (3.2-5.0); Alkaline Phosphatase 117 U/L (45-117); Anion Gap 11 (5-15); BUN 15 mg/dL (7-18); Calcium,Total 8.6 mg/dL (8.5-10.1); Chloride 91 mmol/L (98-107); Creatinine, Serum 1.15 mg/dL (0.70-1.30); EST Glomerular Filtration Rate 69 mL/min (>60); Est Glom Filt Rate - Afr Amer 83 mL/min (>60); Globulin 4.3 g/dL (2.2-4.2); Glucose 164 mg/dL (74-106); Potassium 3.9 mmol/L (3.5-5.1); Protein, Total 7.8 g/dL (6.4-8.2); Sodium Level 127 mmol/L (136-145)
[2018-09-09 12:16] LABS: Lactic Acid 1.2 mmol/L (0.4-2.0)
[2018-09-09 13:27] LABS: Bacteria 0 SEEN /hpf (None Seen); Mucous, Urine 0 SEEN /hpf (<or=2+); White Blood Cells 0 SEEN /hpf (0-5)
--- NOTE | 2018-09-09 13:36 | ED.DCSUM_ITS ---
- ER Visit Summary Date of Service: 09/09/18 Chief Complaint: [Right side pain and shortness of breath] History of Present Illness: The patient is a 58 M [since the emergency department with pain in his right side x2 days. Patient also has a cough with some clear phlegm. Patient developed a fever yesterday. Patient tells me that he had a three-vessel CABG 3 months ago at [facility]. Patient had been on Eliquis but was taken off in mid July. Patient also has noted some swelling in his left lower extremity where they took his veins from. He denies any recent travel.] Physical Examination: [HEENT-PERRLA, EOMI. Cranial nerves II through XII grossly intact. TMs clear. Mucous membranes moist. No adenopathy. Cardiovascular-regular rate and rhythm without murmur or ectopy Lungs-clear to auscultation, chest wall stable without crepitus or subcu emphysema Abdomen-normoactive bowel sounds, soft, nontender, no rebound or rigidity, no peritoneal signs. Extremities-intact ?4, normal range of motion, normal pulses, atraumatic. Left leg edema of +2] Test Results: [EKG obtained showed sinus rhythm with a ventricular rate of 88 bpm. CBC with differential showed a white of 8.9, hemoglobin 10.9, hematocrit 31, placed 219. Chemistry showed a sodium 127, potassium 3.9, chloride 91, CO2 25, glucose 164, BUN 15, creatinine 1.15. Lactate was 1.2. CT scan of the chest with IV contrast showed no evidence for PE but there was some some scarring of both lung bases. Blood cultures were ordered and pending.] Emergency Department Course and Treatment: [Patient was started on Levaquin 7050 mg IV. Patient was medicated with narcotic pain medication.] Treatment Plan: [While in the emergency department patient's O2 saturation dropped into the mid 80s on room air. My concern is patient may be developing a early pneumonia.] Disposition: [Admit] Impression: [Hypoxemia Clinical pneumonia This note was generated with [employer] dictation software. It may contain incorrect words, spelling, and punctuation that were not noted in review of the chart prior to signing ED Disposition - Plan for ED Patient: Referrals: Delgado Smith [Primary Care Provider] -
[2018-09-09 13:41] LABS: Color, Urine Yellow (Yellow); Glucose, Dipstick Normal (Normal); Ketone-Dipstick Negative (Negative); Leukocyte Esterase-Dipstick Negative /ul (Negative); Nitrite-Dipstick Negative (Negative); Occult Blood-Urine 50 /ul (Negative); Protein-Dipstick 500 mg/dl (Negative); Urine Bilirubin Dipstick Negative (Negative); Urine Clarity Clear (Clear); Urine Urobilinogen 1 mg/dl (Normal)
--- NOTE | 2018-09-09 13:41 | PCM.HP.STD ---
Problem List (1) Atherosclerosis of coronary artery without angina pectoris Status: Chronic Qualifiers: Coronary Disease-Associated Artery/Lesion type: [place] artery [place] vs. transplanted heart: [place] heart Qualified Code(s): I25.10 - 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of [place] coronary artery without angina pectoris Comment: CABG x 3 WALL-LAD, Free MAIK-OM, SVG-RPDA 06/12/18 (2) H/O coronary artery bypass surgery Status: Chronic Comment: CABG x 3 WALL-LAD, Free MAIK-OM, SVG-RPDA 06/12/18 (3) Essential hypertension Status: Chronic History of Present Illness Date of Admission: 09/09/18 Chief Complaint: Shortness of breath - 2 days. Chest pain- 2 days The patient is a 58 year old M with recent past medical history of coronary artery bypass surgery x3, complicated by postop atrial fibrillation and hyponatremia who comes in with complaints of shortness of breath and fever. Patient was on Eliquis for 3 weeks and was taken off it. He complains of severe shortness of breath and right lower chest wall/abdominal wall tenderness, which is worse when he lies on his side, with no relieving factors. He has a cough productive of whitish sputum. Denied any orthopnea or PND. No sick contacts. Vitals in the ED show temperature of 100 point 1F, blood pressure is 189/96, respiratory rate was 19, SPO2 was 85% on room air. Admitting blood work showed WBC count of 8.9, hemoglobin 10.9, sodium 127, chloride 91, potassium 3.9, BUN 15, creatinine 1.15, T is unremarkable except for slight elevation in bilirubin to 1.30, UA is unremarkable CTA of the chest shows mild degree of increased marking at the lung bases suggestive of scarring. No PE seen. Past Medical History Past Medical History (Chronic Problems): Chronic Problems (Last Reviewed 07/25/18 @ 08:52 by Fredo Rodriguez MD) Postoperative atrial fibrillation (Chronic 06/12/18) Sinus bradycardia (Chronic) Diastolic dysfunction with acute on chronic heart failure (Chronic) Atherosclerosis of coronary artery without angina pectoris (Chronic) CABG x 3 WALL-LAD, Free MAIK-OM, SVG-RPDA 06/12/18 H/O coronary artery bypass surgery (Chronic 06/12/18) CABG x 3 WALL-LAD, Free MAIK-OM, SVG-RPDA 06/12/18 Essential hypertension (Chronic) Medical History: Medical History (Last Reviewed 07/25/18 @ 08:52 by Fredo Rodriguez MD) Postoperative atrial fibrillation (Chronic) Onset Date: 06/12/18 I97.89, I48.91 Sinus bradycardia (Chronic) R00.1 Diastolic dysfunction with acute on chronic heart failure (Chronic) I50.33 Atherosclerosis of coronary artery without angina pectoris (Chronic) I25.10 CABG x 3 WALL-LAD, Free MAIK-OM, SVG-RPDA 06/12/18 Essential hypertension (Chronic) I10 Cataracts, both eyes H26.9 Diabetic retinopathy E11.319 GERD (gastroesophageal reflux disease) K21.9 Normocytic anemia D64.9 Obesity (BMI 30.0-34.9) E66.9 Type 2 diabetes mellitus E11.9 Allergies Penicillins [PCN] Allergy (Verified 09/09/18 10:52) Unknown Home Medications: Ambulatory Orders Medication Instructions Recorded Nitroglycerin (INPATIENT USE) 0.4 mg SUBLINGUAL Q5M PRN #20 tab 05/21/18 [Nitrostat] atorvastatin 80 mg tablet 80 mg PO QHS 07/24/18 glimepiride 2 mg tablet 1 mg PO DAILY tab 07/24/18 pantoprazole 40 mg tablet,delayed 40 mg PO DAILY 07/24/18 release furosemide 20 mg tablet 20 mg PO DAILY PRN PRN 07/25/18 Amlodipine Besylate 10 mg PO DAILY 09/09/18 Aspirin E.C. [Ecotrin] 81 mg PO DAILY@0800 09/09/18 Lisinopril [Zestril] 20 mg PO BID 09/09/18 Surgical History: Surgical History (Last Reviewed 07/25/18 @ 08:52 by Fredo Rodriguez MD) H/O coronary artery bypass surgery (Resolved) Onset Date: 06/12/18 Z95.1 CABG x 3 WALL-LAD, Free MAIK-OM, SVG-RPDA 06/12/18 Amputated toe S98.139A History of left heart catheterization Onset Date: 05/20/18 Z98.890 Hx of cholecystectomy Z90.49 S/P meniscectomy Z98.890 Surgical History: cataract, cholecystectomy, coronary bypass surgery, total knee arthroplasty, - - toe partial amputation, skin cancer facial Psychiatric History: No pertinent psych hx Lives: With Family Smoking Status: Never smoker Tobacco Use: Non-smoker Alcohol: None - *Family History Maternal Family History: Family History (Last Reviewed 07/25/18 @ 08:52 by Fredo Rodriguez MD) Mother Diabetes History Items: Diabetes Paternal Family History: Family History (Last Reviewed 07/25/18 @ 08:52 by Fredo Rodriguez MD) Mother Diabetes History Items: No pertinent history Review of Systems Constitutional: Reports: Anorexia, Chills, Fever, Weakness, Fatigue. Denies: Night Sweats, Malaise, Weight Change Eyes: Denies: Blurred vision, Cataracts, Conjunctivae Inflammation, Double vision, Pain, Redness, Vision Change HEENT: Denies: Difficulty Hearing, Difficulty Swallowing, Dysphasia Cardiovascular: Reports: Chest Pain. Denies: Claudication Respiratory: Reports: Cough, Shortness of Breath, Shortness of breath at rest, Shortness of breath upon exertion, Sputum production. Denies: Hemoptysis Gastrointestinal: Denies: Abdominal Pain, Constipation, Hematemesis, Hematochezia, Nausea, Vomiting Genitourinary: Denies: Dysuria, Frequency Musculoskeletal: Denies: Joint stiffness, Joint swelling Skin: Denies: Pruritis, Rash Neurological: Denies: Balance problems, Blurred vision, Difficulty swallowing, Focal weakness Psychiatric: Denies: Anxiety, Depression Endocrine: Denies: Change in Body Habitus, Heat/ Cold Intolerance Hematologic/ Lymphatic: Denies: Adenopathy, Anemia VTE Information - Inpt Only VTE Present on Admission: No VTE Pharm Prophylaxis ordered?: Yes - Physical Exam General: Alert, Oriented x3, Cooperative, - - Looks unwell, on 4 L of oxygen HEENT: Atraumatic, PERRLA, EOMI, Normocephalic Oral: Moist Mucosa Neck: Supple Lungs: Clear to auscultation, Normal air movement Cardiovascular: Regular rate, Regular Rhythm, Normal S1, Normal S2, No murmurs, Tachycardic Abdomen: Bowel Sounds Present, Soft, Non Tender, Non-Distended, No Hepato-splenomegaly, Tender - over the right flank and RUQ, with guarding and no rebound tenderness. Extremities: No edema Skin: - - Scarring of the right side of face and forehead Musculoskeletal: No Tenderness to Palpation of Joints or Extremities Lymphatic: No Cervical, Supraclavicular, or Inguinal Adenopathy Neurological: Cranial nerves II-XII grossly intact, Neuro grossly intact Psych/Mental Status: Normal Affect, Appropriate Vital Signs Temp Pulse Resp BP Pulse Ox 100.2 F H 102 H 19 H 195/93 H 95 09/09/18 12:54 09/09/18 12:54 09/09/18 12:54 09/09/18 12:54 09/09/18 12:54 Oxygen Flow Rate (L/min) 4 Oxygen Delivery Method Nasal Cannula Weight: 97.069 kg Body Mass Index (BMI) 28.2 Laboratory Tests Past 24 Hrs 09/09/18 09/09/18 09/09/18 11:35 11:35 11:35 WBC 8.9 RBC 3.66 L Hgb 10.9 L Hct 31.5 L MCV 86.1 MCH 29.8 MCHC 34.6 RDW 13.2 RDW Differential 41.9 Plt Count 219 MPV 9.5 Immature Gran % (Auto) 0.100 Neut % (Auto) 82.3 H Lymph % (Auto) 4.2 L [place] % (Auto) 13.2 H Eos % (Auto) 0.0 Baso % (Auto) 0.2 Absolute Neuts (auto) 7.3 Absolute Lymphs (auto) 0.37 L Total Counted Not Reportable Differential Comment COMMENT Sodium 127 L Potassium 3.9 Chloride 91 L Carbon Dioxide 25.0 Anion Gap 11 BUN 15 Creatinine 1.15 Estim Creat Clear Calc 77.20 Est GFR (MDRD) Af Amer 83 Est GFR (MDRD) Non-Af 69 BUN/Creatinine Ratio 13.0 Glucose 164 H Lactic Acid 1.2 Calcium 8.6 Total Bilirubin 1.30 H AST 29 ALT 27 Alkaline Phosphatase 117 Total Protein 7.8 Albumin 3.5 Globulin 4.3 H Albumin/Globulin Ratio 0.8 L Urine Color Urine Clarity Urine pH Ur Specific [place] Urine Protein Urine Glucose (UA) Urine Ketones Urine Occult Blood Urine Nitrite Urine Bilirubin Urine Urobilinogen Ur Leukocyte Esterase Urine RBC Urine WBC Ur Squamous Epith Cells Urine Bacteria Urine Mucus 09/09/18 13:15 WBC RBC Hgb Hct MCV MCH MCHC RDW RDW Differential Plt Count MPV Immature Gran % (Auto) Neut % (Auto) Lymph % (Auto) [place] % (Auto) Eos % (Auto) Baso % (Auto) Absolute Neuts (auto) Absolute Lymphs (auto) Total Counted Differential Comment Sodium Potassium Chloride Carbon Dioxide Anion Gap BUN Creatinine Estim Creat Clear Calc Est GFR (MDRD) Af Amer Est GFR (MDRD) Non-Af BUN/Creatinine Ratio Glucose Lactic Acid Calcium Total Bilirubin AST ALT Alkaline Phosphatase Total Protein Albumin Globulin Albumin/Globulin Ratio Urine Color Pending Urine Clarity Pending Urine pH Pending Ur Specific [place] Pending Urine Protein Pending Urine Glucose (UA) Pending Urine Ketones Pending Urine Occult Blood Pending Urine Nitrite Pending Urine Bilirubin Pending Urine Urobilinogen Pending Ur Leukocyte Esterase Pending Urine RBC Pending Urine WBC Pending Ur Squamous Epith Cells Pending Urine Bacteria Pending Urine Mucus Pending Assessment/Plan 58 year old M with recent past medical history of coronary artery bypass surgery x3, complicated by postop atrial fibrillation and hyponatremia who comes in with complaints of shortness of breath and fever. 1. Acute hypoxic respiratory failure secondary to possible community-acquired pneumonia, patient is admitting SPO2 was 85% on 4 L of oxygen Plan: Admit patient, continue on oxygen, breathing treatment, incentive spirometer, started empirically on Levaquin, will continue Repeat chest x-ray in a.m. to confirm possible pneumonia, may discontinue antibiotics if there is no pneumonia ID and pulmonology consult 2. Right lower chest wall/flank pain, unclear etiology for now, likely secondary to kidney stones, will get CT of the abdomen without contrast 3. CAD status post recent CABG, stable, continue on aspirin, statin, lisinopril 4. Hyponatremia is secondary to use Lasix, will hold Lasix, recheck BMP in a.m. 5. Type II DM 2, blood sugars are stable, on glimepiride, hold glimepiride for now, will continue with Accu-Cheks with insulin sliding scale 6. Hypertension, controlled, continue on amlodipine, lisinopril, Continue to monitor vitals. 7. Chronic diastolic CHF, no signs of acute exacerbation, will monitor with start of IV fluids 8. DVT PPx - Heparin SC Code Visit Inpatient E&M: 33440 Init Hosp L3
[2018-09-09 13:53] LABS: Red Blood Cells-Urine 0-5 SEEN /hpf (0-5); Squamous Epithelial Cells - UA 0-5 SEEN /hpf (0-5)
[2018-09-09] MEDS: levoFLOXacin IV 750 MG/150 ML BAG 100 MG IV (14:07)
[2018-09-09] MEDS: Acetaminophen 500 MG Tablet 1000 MG PO (14:24)
--- NOTE | 2018-09-09 14:25 | ED.RN ---
SPO2 85 ON ROOM AIR, 90% ON 2L NC, 94 ON 4L NC. AWARE.
[2018-09-09] MEDS: 0.9% Normal Saline 1,000 ML 75 ML IV (15:47)
[2018-09-09] MEDS: Heparin Injection (Vial) 5,000 UNIT/ML VIAL 5000 UNIT SC ×2 (16:11→21:42)
[2018-09-09] MEDS: Insulin Lispro 100 UNIT/ML INSULN.PEN SQ ×2 (16:13→21:41)
[2018-09-09 16:16] LABS: Bedside Glucose 164 mg/dL (70-110)
--- NOTE | 2018-09-09 17:12 | CT_ITS ---
STUDY: CT ABDOMEN AND PELVIS WITHOUT CONTRAST REASON FOR EXAM: Male, 58 years old. Pain RADIATION DOSAGE (If Supplied By Facility): DLP = ( 799.17 ) mGycm TECHNIQUE: Transaxial images were obtained from the dome of the diaphragm to the symphysis pubis without oral contrast, and without intravenous contrast. Sagittal and coronal images were reconstructed. Individualized dose optimization techniques were used for this CT. COMPARISON: None. FINDINGS: Evaluation of the abdominal viscera is limited in the absence of intravenous contrast. Bibasilar atelectasis is present. The visualized portions of the heart and pericardium are within normal limits. The gallbladder has been removed. The liver demonstrates an unremarkable unenhanced appearance. The spleen is normal in size. The pancreas demonstrates an unremarkable unenhanced appearance. The adrenal glands are within normal limits. There are no obstructing renal stones. There is no hydronephrosis. Normal visualized stomach. There is no bowel obstruction or inflammation. The appendix is normal. The aorta is normal in caliber. There is no abdominal or pelvic free air, free fluid, fluid collection or lymphadenopathy. There are no destructive osseous lesions. CT/Abdomen/Pelvis without Cont IMPRESSION: No acute abdominal or pelvic pathology demonstrated on this noncontrast CT. Electronically Signed: Ezekiel Lozano, at 17:57 EDT Tel , Service support ,
[2018-09-09] MEDS: Acetaminophen 325 MG Tablet 650 MG PO (18:26)
[2018-09-09] MEDS: Ipratropium/Albuterol Sulfate 3 ML AMPUL.NEB INHALATION ×2 (18:50→21:50)
[2018-09-09] MEDS: Lisinopril 20 MG Tablet PO (21:43)
[2018-09-09] MEDS: Atorvastatin Calcium 80 MG Tablet PO (21:43)
[2018-09-09] MEDS: MELATONIN 3 MG TABLET PO (21:48)
[2018-09-09] MEDS: 0.9% NaCl Peripheral Flush Adult/Peds IV (22:07)
[2018-09-09 22:26] LABS: Bedside Glucose 166 mg/dL (70-110)
[2018-09-10] VITALS (15 sets, daily range): BP systolic 159–177; BP diastolic 81–96; PULSE 82–103; RESP 16–20; TEMP 36.7–38.2; O2SAT 92–99
[2018-09-10] MEDS: oxyCODONE 5 MG Tablet PO ×2 (01:28→07:51)
[2018-09-10 05:37] LABS: Absolute Lymphocyte Count 0.52 X10^3/ul (0.83-4.51); Absolute Neutrophil Count 9.7 X10^3/uL (2.0-7.7); Basophil# 0.01 X10^3/uL; Basophil% 0.1 % (0-1); Differential Indicated SCAN CRITERIA MET; Hematocrit 27.9 % (40-54); Hemoglobin 9.7 g/dl (13.0-16.5); Lymphocyte # 0.52 X10^3/ul (4.0); Lymphocyte % 4.4 % (19-41); Mean Corp Hgb Conc 34.8 g/gl (32-36); Mean Corpuscular Hgb 29.9 pg (27.0-32.0); Mean Corpuscular Volume 86.1 fL (80-94); Mean Platelet Vol. 9.1 fl (6.2-12.0); Monocyte# 1.69 X10^3/uL; Monocyte% 14.1 % (0-10); Neutrophil # 9.72 X10^3/uL (2.7-7.7); Neutrophil % 81.3 % (47-70); POSITIVE COUNT NO; POSITIVE DIFFERENTIAL YES; POSITIVE MORPHOLOGY NO; Platelet Count 169 K/mm3 (150-450); RBC Distribution Width CV 13.3 % (11.6-14.6); RBC Distribution Width SD 42.5 fl (35.1-43.9); Red Blood Count 3.24 M/mm3 (4.6-6.2)
[2018-09-10 06:11] LABS: Differential Comment SCANNED
[2018-09-10 06:12] LABS: Anion Gap 11 (5-15); BUN 22 mg/dL (7-18); BUN/Creat Ratio 12.6 RATIO (10-20); Calcium,Total 7.8 mg/dL (8.5-10.1); Chloride 90 mmol/L (98-107); Creatinine, Serum 1.74 mg/dL (0.70-1.30); EST Glomerular Filtration Rate 43 mL/min (>60); Est Glom Filt Rate - Afr Amer 52 mL/min (>60); Estimated Creatinine Clearance 51.02 ml/min; Glucose 156 mg/dL (74-106); Potassium 4.1 mmol/L (3.5-5.1); Sodium Level 124 mmol/L (136-145)
[2018-09-10] MEDS: Insulin Lispro 100 UNIT/ML INSULN.PEN SQ ×4 (06:45→22:03)
[2018-09-10] MEDS: Heparin Injection (Vial) 5,000 UNIT/ML VIAL 5000 UNIT SC ×3 (06:46→21:52)
--- NOTE | 2018-09-10 07:02 | PCM.RX.CS ---
Consult Pharmacy has been consulted to manage selected antiobiotic: Vancomycin Type of Consult: New start Suspected Infection: Pneumonia Labs: Sodium 124 mmol/L (136-145) L 09/10/18 05:18 Potassium 4.1 mmol/L (3.5-5.1) 09/10/18 05:18 Chloride 90 mmol/L (98-107) L 09/10/18 05:18 Carbon Dioxide 23.0 mmol/L (21.0-32.0) 09/10/18 05:18 Anion Gap 11 (5-15) 09/10/18 05:18 BUN 22 mg/dL (7-18) H 09/10/18 05:18 Creatinine 1.74 mg/dL (0.70-1.30) H 09/10/18 05:18 Est GFR (MDRD) Af Amer 52 mL/min (>60) L 09/10/18 05:18 Est GFR (MDRD) Non-Af 43 mL/min (>60) L 09/10/18 05:18 BUN/Creatinine Ratio 12.6 RATIO (10-20) 09/10/18 05:18 Glucose 156 mg/dL (74-106) H 09/10/18 05:18 Microbiology: Microbiology 09/09/18 11:45 Blood Culture (Wb) - Anticubital Right Blood Culture - Preliminary 09/09/18 11:35 Blood Culture (Wb) - Left Forearm Blood Culture - Preliminary 09/09/18 13:15 Urine, Clean Catch Legionella Antigen - Final 09/09/18 13:15 Urine, Clean Catch Streptococcus pneumoniae Antigen (M - Final Weight used for dosin kg Estimated Creatinine Clearance: 56 ML/MIN Goal Trough: 15-20 mcg/mL Pharmacy Plan for Drug Dosing: Give initial standard dose of 1500mg IV x1, then continue with 1000mg IV q12h. Note that the patient's CrCl of 56 ml/min was calculated using an adjusted body weight of 87.9 kg. A trough will be ordered to be drawn before the 4th total dose. Pharmacy Service will continue to monitor and adjust dosing as required. Follow-Up Labs: Trough Vancomycin Labs to be done on [date and time ordered]: 09/11/18 16:30
[2018-09-10] MEDS: Ipratropium/Albuterol Sulfate 3 ML AMPUL.NEB INHALATION ×4 (07:09→19:02)
[2018-09-10 07:30] LABS: Bedside Glucose 164 mg/dL (70-110)
[2018-09-10] MEDS: amLODIPine 10 MG Tablet PO (07:46)
[2018-09-10] MEDS: Pantoprazole Sodium 40 MG Tablet PO (07:46)
[2018-09-10] MEDS: Aspirin E.C. 81 MG Tablet PO (07:46)
[2018-09-10] MEDS: Lisinopril 20 MG Tablet PO ×2 (07:47→21:52)
[2018-09-10] MEDS: Acetaminophen 325 MG Tablet 650 MG PO ×3 (07:51→21:15)
--- NOTE | 2018-09-10 09:29 | PCM.CONS.PUL ---
Problem List (1) Postoperative atrial fibrillation Status: Chronic (2) Diastolic dysfunction with acute on chronic heart failure Status: Chronic (3) Atherosclerosis of coronary artery without angina pectoris Status: Chronic Qualifiers: Coronary Disease-Associated Artery/Lesion type: enterprise artery [place] vs. transplanted heart: enterprise heart Qualified Code(s): I25.10 - 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of enterprise coronary artery without angina pectoris Comment: CABG x 3 WALL-LAD, Free MAIK-OM, SVG-RPDA 06/12/18 (4) H/O coronary artery bypass surgery Status: Chronic Comment: CABG x 3 WALL-LAD, Free MAIK-OM, SVG-RPDA 06/12/18 (5) Essential hypertension Status: Chronic Reason for Consult Date of Consultation: 09/10/18 Reason for Consultation: Possible pneumonia History of Present Illness: The patient is a 58 year old M, with past medical history listed below, who presented to [facility] on 09/09/2018 secondary to progressive shortness of breath and right-sided pain. Patient had reported progressive shortness of breath and a cough productive of clear sputum for the last 2 days. Patient did report a history of cardiac bypass surgery in June that was reportedly unremarkable. Patient did state that he was around his grandchildren and thought I caught something from them. In the emergency room, patient was noted to be hypoxic at 84% on room air. Patient's lactate was within normal limits. Patient did have a CAT scan with IV contrast showing no acute pulmonary embolism with possible fibrosis. There was some concern for developing pneumonia, so patient was admitted to the floor and initiated on antibiotics. Overnight, patient did have significant fever and has come back positive for staph aureus in all blood cultures. Patient denies any pulmonary history. Patient denies a history of asthma, COPD or tobacco exposure. Patient does drink approximately 1-12 pack/week. Patient denies any illicit drug use. Patient denies ever being admitted with respiratory complaints before. Patient has never used an inhaler. Patient denies exposure to asbestos or TB. Patient did report a sharp type pain in the right flank. This was not associated with any dysuria. Patient did report lower extremity neuropathy and had recently tore off his nail of the third toe of his left foot. Patient did report some bleeding, but no excessive pain or exudate. Patient states this was done probably 1 week ago. Patient states it is been years since he has been seen by dentist. Past Medical History Past Medical History (Chronic Problems): Chronic Problems (Last Reviewed 07/25/18 @ 08:52 by Fredo Rodriguez MD) Postoperative atrial fibrillation (Chronic 06/12/18) Sinus bradycardia (Chronic) Diastolic dysfunction with acute on chronic heart failure (Chronic) Atherosclerosis of coronary artery without angina pectoris (Chronic) CABG x 3 WALL-LAD, Free MAIK-OM, SVG-RPDA 06/12/18 H/O coronary artery bypass surgery (Chronic 06/12/18) CABG x 3 WALL-LAD, Free MAIK-OM, SVG-RPDA 06/12/18 Essential hypertension (Chronic) Medical History: Medical History (Last Reviewed 07/25/18 @ 08:52 by Fredo Rodriguez MD) Postoperative atrial fibrillation (Chronic) Onset Date: 06/12/18 I97.89, I48.91 Sinus bradycardia (Chronic) R00.1 Diastolic dysfunction with acute on chronic heart failure (Chronic) I50.33 Atherosclerosis of coronary artery without angina pectoris (Chronic) I25.10 CABG x 3 WALL-LAD, Free MAIK-OM, SVG-RPDA 06/12/18 Essential hypertension (Chronic) I10 Cataracts, both eyes H26.9 Diabetic retinopathy E11.319 GERD (gastroesophageal reflux disease) K21.9 Normocytic anemia D64.9 Obesity (BMI 30.0-34.9) E66.9 Type 2 diabetes mellitus E11.9 Allergies Penicillins [PCN] Allergy (Verified 09/09/18 10:52) Unknown Home Medications: Ambulatory Orders Medication Instructions Recorded Nitroglycerin (INPATIENT USE) 0.4 mg SUBLINGUAL Q5M PRN #20 tab 05/21/18 [Nitrostat] atorvastatin 80 mg tablet 80 mg PO QHS 07/24/18 glimepiride 2 mg tablet 1 mg PO DAILY tab 07/24/18 pantoprazole 40 mg tablet,delayed 40 mg PO DAILY 07/24/18 release furosemide 20 mg tablet 20 mg PO DAILY PRN PRN 07/25/18 Amlodipine Besylate 10 mg PO DAILY 09/09/18 Aspirin E.C. [Ecotrin] 81 mg PO DAILY@0800 09/09/18 Lisinopril [Zestril] 20 mg PO BID 09/09/18 Surgical History: Surgical History (Last Reviewed 07/25/18 @ 08:52 by Fredo Rodriguez MD) H/O coronary artery bypass surgery (Chronic) Onset Date: 06/12/18 Z95.1 CABG x 3 WALL-LAD, Free MAIK-OM, SVG-RPDA 06/12/18 Amputated toe S98.139A History of left heart catheterization Onset Date: 05/20/18 Z98.890 Hx of cholecystectomy Z90.49 S/P meniscectomy Z98.890 Surgical History: cataract, cholecystectomy, coronary bypass surgery, total knee arthroplasty, - - toe partial amputation, skin cancer facial Psychiatric History: No pertinent psych hx Lives: With Family Smoking Status: Never smoker Tobacco Use: Non-smoker Alcohol: None - *Family History Maternal Family History: Family History (Last Reviewed 07/25/18 @ 08:52 by Fredo Rodriguez MD) Mother Diabetes History Items: Diabetes Paternal Family History: Family History (Last Reviewed 07/25/18 @ 08:52 by Fredo Rodriguez MD) Mother Diabetes History Items: No pertinent history Review of Systems Comment: See HPI, otherwise negative x10 systems. Objective: CT scan of the chest was personally reviewed. Patient does not have any emphysematous changes. No masses were noted. Patient did have some basilar atelectasis. Patient does have 2+ blood cultures for staph aureus less than 12 hours after drawing. - Physical Exam General: Alert, Oriented x3, Cooperative, No apparent distress, Well developed, Well nourished, - - Speaking in full sentences. HEENT: Atraumatic, PERRLA, EOMI, Normocephalic, - - No scleral icterus or injection noted. Oral: Moist Mucosa, No Gingival or Mucosal Lesions/ Ulcerations, - - Appears to have a broken left mandibular molar. No fluctuance or exudate appreciated. No tenderness to palpation. Neck: Supple, No JVD, No Nodes, Trachea Midline Lungs: No rhonchi, No wheeze, No rales, Diminished, - - Symmetric expansion. No dullness to percussion. Cardiovascular: Regular rate, Regular Rhythm, Normal S1, Normal S2, No murmurs, No rub noted, No Gallop Abdomen: Bowel Sounds Present, Soft, Non Tender, Non-Distended Extremities: No clubbing, No cyanosis, No edema, - - Left third toe does not have any fluctuance or exudate. Some thickened skin noted. Skin: No rashes, No breakdown Musculoskeletal: No Tenderness to Palpation of Joints or Extremities Lymphatic: No Cervical, Supraclavicular, or Inguinal Adenopathy Neurological: Cranial nerves II-XII grossly intact, Neuro grossly intact, Motor Exam 5/5 strength throughout Psych/Mental Status: Alert and oriented to time, place, person, mood and affect Vital Signs Temp Pulse Resp BP Pulse Ox 37.6 C H 102 H 18 165/96 H 93 09/10/18 07:40 09/10/18 08:02 09/10/18 07:40 09/10/18 07:40 09/10/18 07:40 Oxygen Flow Rate (L/min) 5 Oxygen Delivery Method Nasal Cannula Weight: 100 kg Body Mass Index (BMI) 29.0 Intake and Output for Last 24 Hours 09/08/18 09/09/18 09/10/18 23:59 23:59 23:59 Intake Total 1374 / 1374 Output Total 480 / 480 Balance 894 / 894 Microbiology Past 72 Hours 09/09/18 11:35 Bacteria Detection (PCR) - Final Blood Culture (Wb) - Left Forearm Staphylococcus aureus Blood Culture - Preliminary 09/09/18 11:45 Blood Culture - Preliminary Blood Culture (Wb) - Anticubital Right 09/09/18 13:15 Legionella Antigen - Final Urine, Clean Catch 09/09/18 13:15 Streptococcus pneumoniae Antigen (M - Final Urine, Clean Catch Laboratory Tests Past 24 Hrs 09/09/18 09/09/18 09/09/18 11:35 11:35 11:35 WBC 8.9 RBC 3.66 L Hgb 10.9 L Hct 31.5 L MCV 86.1 MCH 29.8 MCHC 34.6 RDW 13.2 RDW Differential 41.9 Plt Count 219 MPV 9.5 Immature Gran % (Auto) 0.100 Neut % (Auto) 82.3 H Lymph % (Auto) 4.2 L [place] % (Auto) 13.2 H Eos % (Auto) 0.0 Baso % (Auto) 0.2 Absolute Neuts (auto) 7.3 Absolute Lymphs (auto) 0.37 L Total Counted Not Reportable Differential Comment COMMENT Diff Path Review Sodium 127 L Potassium 3.9 Chloride 91 L Carbon Dioxide 25.0 Anion Gap 11 BUN 15 Creatinine 1.15 Estim Creat Clear Calc 77.20 Est GFR (MDRD) Af Amer 83 Est GFR (MDRD) Non-Af 69 BUN/Creatinine Ratio 13.0 Glucose 164 H Lactic Acid 1.2 Calcium 8.6 Total Bilirubin 1.30 H AST 29 ALT 27 Alkaline Phosphatase 117 Total Protein 7.8 Albumin 3.5 Globulin 4.3 H Albumin/Globulin Ratio 0.8 L Urine Color Urine Clarity Urine pH Ur Specific [place] Urine Protein Urine Glucose (UA) Urine Ketones Urine Occult Blood Urine Nitrite Urine Bilirubin Urine Urobilinogen Ur Leukocyte Esterase Urine RBC Urine WBC Ur Squamous Epith Cells Urine Bacteria Urine Mucus 09/09/18 09/10/18 09/10/18 13:15 05:18 05:18 WBC 12.0 H RBC 3.24 L Hgb 9.7 L Hct 27.9 L MCV 86.1 MCH 29.9 MCHC 34.8 RDW 13.3 RDW Differential 42.5 Plt Count 169 MPV 9.1 Immature Gran % (Auto) 0.100 Neut % (Auto) 81.3 H Lymph % (Auto) 4.4 L [place] % (Auto) 14.1 H Eos % (Auto) 0.0 Baso % (Auto) 0.1 Absolute Neuts (auto) 9.7 H Absolute Lymphs (auto) 0.52 L Total Counted Not Reportable Differential Comment SCANNED Diff Path Review August foll Sodium 124 L Potassium 4.1 Chloride 90 L Carbon Dioxide 23.0 Anion Gap 11 BUN 22 H Creatinine 1.74 H Estim Creat Clear Calc 51.02 Est GFR (MDRD) Af Amer 52 L Est GFR (MDRD) Non-Af 43 L BUN/Creatinine Ratio 12.6 Glucose 156 H Lactic Acid Calcium 7.8 L Total Bilirubin AST ALT Alkaline Phosphatase Total Protein Albumin Globulin Albumin/Globulin Ratio Urine Color Yellow Urine Clarity Clear Urine pH 7.0 Ur Specific [place] 1.010 Urine Protein 500 H Urine Glucose (UA) Normal Urine Ketones Negative Urine Occult Blood 50 H Urine Nitrite Negative Urine Bilirubin Negative Urine Urobilinogen 1 H Ur Leukocyte Esterase Negative Urine RBC 0-5 SEEN Urine WBC 0 SEEN Ur Squamous Epith Cells 0-5 SEEN Urine Bacteria 0 SEEN Urine Mucus 0 SEEN POC Glucose 09/10/18 09/09/18 09/09/18 06:44 21:39 16:10 POC Glucose 164 H 166 H 164 H Clinical Impression(s) from Imaging Studies Chest CTA 09/09/18 11:18 IMPRESSION: Mild degree of increased markings at the lung bases suggestive of scarring. Electronically Signed: Emir Jorgebacilioamanda, at 12:53 EDT , Service support , Abdomen/Pelvis CT 09/09/18 17:12 IMPRESSION: No acute abdominal or pelvic pathology demonstrated on this noncontrast CT. Electronically Signed: Ezekiel Marta, at 17:57 EDT Tel , Service support , ADDENDUM: 09/09/18 [id number] Assessment/Plan RECOMMENDATIONS: 1. Consider infectious disease consult 2. Monitor blood pressures closely 3. Aggressive incentive spirometer 4. Increase activity as tolerated 5. Outpatient dental evaluation IMPRESSIONS: 1. Severe sepsis secondary to staph aureus Exact nidus is unclear at this time. Patient does appear to have a fractured molar, which may be a source. Patient did have trauma to his left foot, but no fluctuance or erythema is noted. Lab was called and asked for a PCR. Patient should continue on vancomycin. Consider infectious disease evaluation. Low clinical suspicion for acute pneumonia at this time. CT scan appears more consistent with atelectasis in my opinion. Continue to watch blood pressure closely. Patient does not appear to require fluid boluses at this time. 2. Coronary artery disease status post recent CABG/diabetes mellitus type 2/hypertension/chronic diastolic CHF Complicates care, management, recovery and prognosis. Do not believe patient requires any steroids at this time. Reasonable to hold Lasix given positive blood cultures. Agree with sliding scale insulin for blood sugars. Code Visit Inpatient E&M: 98743 Init Hosp L2
[2018-09-10] MEDS: levoFLOXacin IV 750 MG/150 ML BAG 100 MG IV (09:49)
--- NOTE | 2018-09-10 11:07 | CASEMGMT ---
RN CM Assessment Presentation: Pneumonia. Shortness of Breath Intro role of CM and purpose of RN CM assessment to patient in room. Pt is awake, alert, able to participate in assessment. Demographics, PCP and Pharmacy verified. Pt states he is active and starting feeling ill Saturday. Denies any concerns re: returning home. PCP: Dr. Delgado Smith Specialists: Dr. Rodriguez. Pt participates in cardiac rehab @ [facility]. Preferred Pharmacy: [facility] Insurance: [employer] [facility] Prescription Benefit: yes LNOK: Significant Other, Maya Crabtree Living Arrangements: Lives independently in own home. Denies any care needs with ADL's. Transportation: drives DME: Does not use DME, however has: walker, cane, wheelchair, shower bars (from his mother) HHC: none Patient DC goals: Home DC PLAN: Home [facility] RN AC
[2018-09-10 11:51] LABS: Bedside Glucose 220 mg/dL (70-110)
[2018-09-10 12:13] LABS: Pathologist Review Reviewed
--- NOTE | 2018-09-10 12:53 | CHAPLAIN ---
Type of Pastoral Visit _x__ Initial Visit ___ Follow-up Visit ___ On-call Visit ___ General Patient Visit ___ Spiritual Assessment ___ Family Conference ___ Bereavement ___ Rapid Response ___ Code Blue ___ Other (describe below) Pastoral Care Referral From _x__ Patient ___ Family ___ Nurse ___ Physician ___ Civil Laboratory Technician ___ Buggy Man ___ Other (describe below) Sacrament/Intervention _x__ Active listening ___ Anointing ___ Holiness ___ Bereavement ___ Communion _x__ Charlette exploration ___ ___ Life review _x__ Prayer ___ Reconciliation ___ Sacrament of Sick _x__ Supportive presence ___ Wedding ___ Other (describe below) Pastoral Comments
[2018-09-10] MEDS: hydrOXYzine PAM 25 MG Capsule 50 MG PO ×2 (14:30→21:15)
--- NOTE | 2018-09-10 15:26 | PCM.PN.HOSP ---
Subjective: Feeling better. Though later, per RN, was anxious and short of breath. Vitals/I&O's: Vital Signs Temp Pulse Resp BP Pulse Ox 36.8 C 86 20 H 174/81 H 99 09/10/18 13:26 09/10/18 13:26 09/10/18 13:26 09/10/18 13:26 09/10/18 13:26 Oxygen Flow Rate (L/min) 5 Oxygen Delivery Method Nasal Cannula Weight: 100 kg Body Mass Index (BMI) 29.0 Intake and Output for Last 24 Hours 09/08/18 09/09/18 09/10/18 23:59 23:59 23:59 Intake Total 2329 / 2329 Output Total 480 / 480 Balance 1849 / 1849 General: Alert, No apparent distress HEENT: Atraumatic, Normocephalic Oral: Moist Mucosa, No Gingival or Mucosal Lesions/ Ulcerations Neck: No Nodes, Thyroid Normal Size and Texture Lungs: Normal air movement, - - bibasilar crackles. Cardiovascular: Regular rate, Regular Rhythm, Normal S1, Normal S2 Abdomen: Bowel Sounds Present, Soft, Non Tender, Non-Distended Extremities: No edema, No Calf Tenderness Psych/Mental Status: Normal Affect, Appropriate Microbiology Past 72 Hours 09/09/18 11:35 Blood Culture (Wb) - Left Forearm Bacteria Detection (PCR) - Final Staphylococcus aureus 09/09/18 11:35 Blood Culture (Wb) - Left Forearm Blood Culture - Preliminary 09/09/18 11:45 Blood Culture (Wb) - Anticubital Right Blood Culture - Preliminary 09/09/18 13:15 Urine, Clean Catch Legionella Antigen - Final 09/09/18 13:15 Urine, Clean Catch Streptococcus pneumoniae Antigen (M - Final Laboratory Results 09/09/18 16:10: POC Glucose 164 H 09/09/18 21:39: POC Glucose 166 H 09/10/18 05:18: Sodium 124 L, Potassium 4.1, Chloride 90 L, Carbon Dioxide 23.0, Anion Gap 11, BUN 22 H, Creatinine 1.74 H, Estim Creat Clear Calc 51.02, Est GFR (MDRD) Af Amer 52 L, Est GFR (MDRD) Non-Af 43 L, BUN/Creatinine Ratio 12.6, Glucose 156 H, Calcium 7.8 L 09/10/18 05:18: WBC 12.0 H, RBC 3.24 L, Hgb 9.7 L, Hct 27.9 L, MCV 86.1, MCH 29.9, MCHC 34.8, RDW 13.3, RDW Differential 42.5, Plt Count 169, MPV 9.1, Immature Gran % (Auto) 0.100, Neut % (Auto) 81.3 H, Lymph % (Auto) 4.4 L, [place] % (Auto) 14.1 H, Eos % (Auto) 0.0, Baso % (Auto) 0.1, Absolute Neuts (auto) 9.7 H, Absolute Lymphs (auto) 0.52 L, Total Counted Not Reportable, Differential Comment SCANNED, Diff Path Review Reviewed 09/10/18 06:44: POC Glucose 164 H 09/10/18 11:20: POC Glucose 220 H Current Medications Acetaminophen (Tylenol) 650 mg PO Q6H PRN PRN PRN Reason: Mild Pain (1-3)/Temp > 100.7 F Last Admin: 09/10/18 14:33 Dose: 650 mg Albuterol Sulfate (Ventolin Aerosols) 2.5 mg INHALATION Q2H PRN PRN Reason: SOB &/OR WHEEZING Albuterol/Ipratropium (Duoneb) 3 ml INHALATION Q4HWA.RT [facility] Last Admin: 09/10/18 14:58 Dose: 3 ml Amlodipine Besylate (Norvasc) 10 mg PO DAILY [facility] Last Admin: 09/10/18 07:46 Dose: 10 mg Aspirin (Ecotrin) 81 mg PO DAILY@0800 [facility] Last Admin: 09/10/18 07:46 Dose: 81 mg Atorvastatin Calcium (Lipitor) 80 mg PO QHS [facility] Last Admin: 09/09/18 21:43 Dose: 80 mg Dextrose (D50w Syringe) 0 gm IV X1 PRN; Protocol PRN Reason: Hypoglycemia Docusate Sodium (Colace) 200 mg PO BID PRN PRN PRN Reason: Constipation Glucagon () 1 mg IM .X1 PRN PRN Reason: Hypoglycemia Guaifenesin (Mucinex) 1,200 mg PO BID PRN PRN PRN Reason: COUGH Heparin Sodium (Porcine) (Heparin Na) 5,000 unit SC Q8 [facility] Last Admin: 09/10/18 14:40 Dose: 5,000 unit Hydroxyzine Pamoate (Vistaril Pamoate Capsule) 50 mg PO Q6H PRN PRN Reason: ANXIETY Last Admin: 09/10/18 14:30 Dose: 50 mg Vancomycin IV Pharmacy to Dose (1 ea/ Sodium Chloride) 500 mls @ 250 mls/hr IV X1 PRN; Protocol PRN Reason: Rx to Dose Vancomycin HCl (Vancomycin) 1,000 mg in 200 mls @ 200 mls/hr IV Q12H PENNIE Sodium Chloride () 1,000 mls @ 125 mls/hr IV .Q8H PENNIE Stop: 09/10/18 23:24 Insulin Human Lispro (Humalog Kwikpen (Bkc)) 0 unit SQ ACHS PENNIE; Protocol Last Admin: 09/10/18 11:23 Dose: 1 u Lisinopril (Zestril) 20 mg PO BID [facility] Last Admin: 09/10/18 07:47 Dose: 20 mg Melatonin (Melatonin) 3 mg PO QHS PRN PRN Reason: INSOMNIA Last Admin: 09/09/18 21:48 Dose: 3 mg Nitroglycerin (Nitrostat) 0.4 mg SUBLINGUAL Q5M PRN PRN Reason: CARDIAC/CHEST PAIN Ondansetron HCl (Zofran) 4 mg IV Q8H PRN PRN PRN Reason: NAUSEA/VOMITING Pantoprazole Sodium (Protonix) 40 mg PO DAILY [facility] Last Admin: 09/10/18 07:46 Dose: 40 mg Sodium Chloride () 5 - 15 ml IV UD PRN PRN Reason: SALINE FLUSH Last Admin: 09/09/18 22:07 Dose: 10 ml Medical Necessity - Tobacco Use Smoking Status: Never smoker Tobacco Use: Non-smoker Assessment/Plan 1. Sepsis POA 2/2 bacteremia no pneumonia on CT--ruled out improving 2. Bacteremia: S. aureus on Vanc repeat BCx 09/10 check left foot xray (had a cellulitis 3 weeks ago) and has a superficial ulceration on 3rd toe. check TTE given recent CABG 3. RAFA unclear etiology, though may be due to IV contrast from CTA (doubt due to vancomycin as it was given during the blood draw for the lab) IVF reevaluate in AM consider urine studies 4. hyponatremia review of medications shows no obvious culprit monitor IVF (NS) 5. Acute hypoxic respiratory insufficiency still requiring oxygen no PNA, PE monitor wean oxygen as tolerated 6. VTE prophy: SQ heparin. Code Visit Inpatient E&M: 81364 Subs Hosp L2
--- NOTE | 2018-09-10 15:37 | PN_ITS ---
Subjective: Feeling better. Though later, per RN, was anxious and short of breath. Vitals/I&O's: Vital Signs Temp Pulse Resp BP Pulse Ox 36.8 C 86 20 H 174/81 H 99 09/10/18 13:26 09/10/18 13:26 09/10/18 13:26 09/10/18 13:26 09/10/18 13:26 Oxygen Flow Rate (L/min) 5 Oxygen Delivery Method Nasal Cannula Weight: 100 kg Body Mass Index (BMI) 29.0 Intake and Output for Last 24 Hours 09/08/18 09/09/18 09/10/18 23:59 23:59 23:59 Intake Total 2329 / 2329 Output Total 480 / 480 Balance 1849 / 1849 General: Alert, No apparent distress HEENT: Atraumatic, Normocephalic Oral: Moist Mucosa, No Gingival or Mucosal Lesions/ Ulcerations Neck: No Nodes, Thyroid Normal Size and Texture Lungs: Normal air movement, - - bibasilar crackles. Cardiovascular: Regular rate, Regular Rhythm, Normal S1, Normal S2 Abdomen: Bowel Sounds Present, Soft, Non Tender, Non-Distended Extremities: No edema, No Calf Tenderness Psych/Mental Status: Normal Affect, Appropriate Microbiology Past 72 Hours 09/09/18 11:35 Blood Culture (Wb) - Left Forearm Bacteria Detection (PCR) - Final Staphylococcus aureus 09/09/18 11:35 Blood Culture (Wb) - Left Forearm Blood Culture - Preliminary 09/09/18 11:45 Blood Culture (Wb) - Anticubital Right Blood Culture - Preliminary 09/09/18 13:15 Urine, Clean Catch Legionella Antigen - Final 09/09/18 13:15 Urine, Clean Catch Streptococcus pneumoniae Antigen (M - Final Laboratory Results 09/09/18 16:10: POC Glucose 164 H 09/09/18 21:39: POC Glucose 166 H 09/10/18 05:18: Sodium 124 L, Potassium 4.1, Chloride 90 L, Carbon Dioxide 23.0, Anion Gap 11, BUN 22 H, Creatinine 1.74 H, Estim Creat Clear Calc 51.02, Est GFR (MDRD) Af Amer 52 L, Est GFR (MDRD) Non-Af 43 L, BUN/Creatinine Ratio 12.6, Glucose 156 H, Calcium 7.8 L 09/10/18 05:18: WBC 12.0 H, RBC 3.24 L, Hgb 9.7 L, Hct 27.9 L, MCV 86.1, MCH 29.9, MCHC 34.8, RDW 13.3, RDW Differential 42.5, Plt Count 169, MPV 9.1, Immature Gran % (Auto) 0.100, Neut % (Auto) 81.3 H, Lymph % (Auto) 4.4 L, [place] % (Auto) 14.1 H, Eos % (Auto) 0.0, Baso % (Auto) 0.1, Absolute Neuts (auto) 9.7 H, Absolute Lymphs (auto) 0.52 L, Total Counted Not Reportable, Differential Comment SCANNED, Diff Path Review Reviewed 09/10/18 06:44: POC Glucose 164 H 09/10/18 11:20: POC Glucose 220 H Current Medications Acetaminophen (Tylenol) 650 mg PO Q6H PRN PRN PRN Reason: Mild Pain (1-3)/Temp > 100.7 F Last Admin: 09/10/18 14:33 Dose: 650 mg Albuterol Sulfate (Ventolin Aerosols) 2.5 mg INHALATION Q2H PRN PRN Reason: SOB &/OR WHEEZING Albuterol/Ipratropium (Duoneb) 3 ml INHALATION Q4HWA.RT [facility] Last Admin: 09/10/18 14:58 Dose: 3 ml Amlodipine Besylate (Norvasc) 10 mg PO DAILY [facility] Last Admin: 09/10/18 07:46 Dose: 10 mg Aspirin (Ecotrin) 81 mg PO DAILY@0800 [facility] Last Admin: 09/10/18 07:46 Dose: 81 mg Atorvastatin Calcium (Lipitor) 80 mg PO QHS [facility] Last Admin: 09/09/18 21:43 Dose: 80 mg Dextrose (D50w Syringe) 0 gm IV X1 PRN; Protocol PRN Reason: Hypoglycemia Docusate Sodium (Colace) 200 mg PO BID PRN PRN PRN Reason: Constipation Glucagon () 1 mg IM .X1 PRN PRN Reason: Hypoglycemia Guaifenesin (Mucinex) 1,200 mg PO BID PRN PRN PRN Reason: COUGH Heparin Sodium (Porcine) (Heparin Na) 5,000 unit SC Q8 [facility] Last Admin: 09/10/18 14:40 Dose: 5,000 unit Hydroxyzine Pamoate (Vistaril Pamoate Capsule) 50 mg PO Q6H PRN PRN Reason: ANXIETY Last Admin: 09/10/18 14:30 Dose: 50 mg Vancomycin IV Pharmacy to Dose (1 ea/ Sodium Chloride) 500 mls @ 250 mls/hr IV X1 PRN; Protocol PRN Reason: Rx to Dose Vancomycin HCl (Vancomycin) 1,000 mg in 200 mls @ 200 mls/hr IV Q12H PENNIE Sodium Chloride () 1,000 mls @ 125 mls/hr IV .Q8H PENNIE Stop: 09/10/18 23:24 Insulin Human Lispro (Humalog Kwikpen (Bkc)) 0 unit SQ ACHS PENNIE; Protocol Last Admin: 09/10/18 11:23 Dose: 1 u Lisinopril (Zestril) 20 mg PO BID [facility] Last Admin: 09/10/18 07:47 Dose: 20 mg Melatonin (Melatonin) 3 mg PO QHS PRN PRN Reason: INSOMNIA Last Admin: 09/09/18 21:48 Dose: 3 mg Nitroglycerin (Nitrostat) 0.4 mg SUBLINGUAL Q5M PRN PRN Reason: CARDIAC/CHEST PAIN Ondansetron HCl (Zofran) 4 mg IV Q8H PRN PRN PRN Reason: NAUSEA/VOMITING Pantoprazole Sodium (Protonix) 40 mg PO DAILY [facility] Last Admin: 09/10/18 07:46 Dose: 40 mg Sodium Chloride () 5 - 15 ml IV UD PRN PRN Reason: SALINE FLUSH Last Admin: 09/09/18 22:07 Dose: 10 ml Medical Necessity - Tobacco Use Smoking Status: Never smoker Tobacco Use: Non-smoker Assessment/Plan 1. Sepsis * POA * 2/2 bacteremia * no pneumonia on CT--ruled out * improving 2. Bacteremia: * S. aureus * on Vanc * repeat BCx 09/10 * check left foot xray (had a cellulitis 3 weeks ago) and has a superficial ulceration on 3rd toe. * check TTE given recent CABG 3. RAFA * unclear etiology, though may be due to IV contrast from CTA (doubt due to vancomycin as it was given during the blood draw for the lab) * IVF * reevaluate in AM * consider urine studies 4. hyponatremia * review of medications shows no obvious culprit * monitor * IVF (NS) 5. Acute hypoxic respiratory insufficiency * still requiring oxygen * no PNA, PE * monitor * wean oxygen as tolerated 6. VTE prophy: SQ heparin. Code Visit Inpatient E&M: 70318 Subs Hosp L2
--- NOTE | 2018-09-10 15:37 | ECHOD_ITS ---
Reason For Study: Bacteremia Procedure This was a 2D Doppler, Color Flow transthoracic echocardiogram. Exam performed portable in patient room. Left Ventricle Normal size and thickness. The estimated ejection fraction is 65 %. Stage 3 diastolic dysfunction. No regional wall motion abnormalities noted. Right Ventricle Normal size and thickness. Normal systolic function. Atria The left atrium is moderately enlarged. Normal right atrium. Normal atrial septum. Mitral Valve Bileaflet diffuse mitral valve thickening. Moderate mitral annular calcification extending into the posterior leaflet. Tricuspid Valve Normal tricuspid valve. Unable to estimate RV systolic pressure due to inadequate jet, pulmonary artery pressure probably normal. Aortic Valve Trisinus/trileaflet aortic valve. Mild diffuse aortic valve thickening. Cannot exclude aortic valvular vegetation. There is no aortic stenosis. Pulmonic Valve Normal pulmonic valve. Trivial pulmonic valve insufficiency. Great Vessels Calcified aortic root. Normal arch. The inferior vena cava is dilated. Inferior vena cava collapse with sniff. Pericardium/Pleural No pericardial effusion. MMode/2D Measurements & Calculations LVIDd: 5.0 cm IVSd: 1.3 cm Ao root diam: 3.7 cm LVIDs: 3.6 cm LVPWd: 1.5 cm RVDd: 3.9 cm FS: 27.6 % LAV(MOD-bp): 101.4 ml LA A4 area: 26.7 cm2 LA dimension(2D): 4.4 cm LAV(MOD-bp) Indexed: 45.3 ml/m2 LAV(MOD-sp2): 98.1 ml LAV(MOD-sp4): 95.5 ml RA A4 area: 20.6 cm2 Doppler Measurements & Calculations MV E max [place]: 165.7 cm/sec Lat Peak E' [place]: 13.5 cm/sec Med Peak E' [place]: 7.7 cm/sec E/E' lat: 12.3 E/E' med: 21.5 MV V2 max: 175.1 cm/sec MV P1/2t max [place]: 171.7 cm/sec Ao V2 max: 158.4 cm/sec MV max P.3 mmHg MV P1/2t: 82.0 msec Ao max P.0 mmHg MV V2 mean: 101.4 cm/sec MV dec slope: 613.3 cm/sec2 MV mean P.9 mmHg MVA(P1/2t): 2.7 cm2 MV V2 VTI: 33.5 cm LV V1 max: 133.8 cm/sec PA V2 max: 114.4 cm/sec LV V1 max P.2 mmHg Interpretation Summary The estimated ejection fraction is 65 %. Stage 3 diastolic dysfunction. The left atrium is moderately enlarged. Normal right atrium. Unable to estimate RV systolic pressure due to inadequate jet, pulmonary artery pressure probably normal. Cannot exclude aortic valvular vegetation: possible tiny mobile mass noted on right coronary cusp. Compared to echo report dated 05/19/2018, LV function has remained the same. Would consider a transesophageal echocardiogram if clinically indicated. Ordering Physician: Khalif Gaitan Referring Physician: Delgado Smith Performed By: Steph Cali RDCS
--- NOTE | 2018-09-10 15:37 | RAD_ITS ---
STUDY: X-RAY - MANDIBLE (COMPLETE) REASON FOR EXAM: Male, 58 years old. Looking for infection TECHNIQUE: 5 view(s) of the mandible were obtained. COMPARISON: None. FINDINGS: There is no mandibular fracture identified. The paranasal sinuses are clear. There are no radiodense foreign bodies. Moderate degenerative changes with mild subluxation present at the C3-C4 level. RAD/Mandible Min 4 Views IMPRESSION: No mandibular fracture or evidence of infection identified. If indicated, further evaluation with CT can be performed. Moderate degenerative changes with mild subluxation at the C3-C4 level. Correlate clinically. Electronically Signed: Ezekiel Lozano, at 17:39 EDT Tel , Service support ,
--- NOTE | 2018-09-10 15:49 | CON.PCM_ITS ---
Problem List (1) MSSA bacteremia Status: Acute Reason for Consult: bacteremia Consulted by: Dr. Gaitan History of Present Illness: The patient is a 58 year old M with acute onset 09/08 of fever, chills, not feeling well, and some R sided chest pain associated with some SOB. No prior h/o staph aureus infection or skin abscess. Has had L toe swelling and ulceration for several weeks, minimal pain, no drainage. Came to ED, fever to 103.1. CT chest done, admitted on vanc and levaquin. Bcx x2 (+). Pulm following. Reports reaction as a child with PCN, but no issues with amox or augmentin in the past. Full ROS Performed and neg except as noted above. No new joint or back pain. - Medical History Past Medical History (Chronic Problems): Chronic Problems (Last Reviewed 07/25/18 @ 08:52 by Fredo Rodriguez MD) Postoperative atrial fibrillation (Chronic 06/12/18) Sinus bradycardia (Chronic) Diastolic dysfunction with acute on chronic heart failure (Chronic) Atherosclerosis of coronary artery without angina pectoris (Chronic) CABG x 3 WALL-LAD, Free MAIK-OM, SVG-RPDA 06/12/18 H/O coronary artery bypass surgery (Chronic 06/12/18) CABG x 3 WALL-LAD, Free MAIK-OM, SVG-RPDA 06/12/18 Essential hypertension (Chronic) Allergies/Adverse Reactions: Allergies Penicillins [PCN] Allergy (Verified 09/09/18 10:52) Unknown Home Medications: Ambulatory Orders Medication Instructions Recorded Nitroglycerin (INPATIENT USE) 0.4 mg SUBLINGUAL Q5M PRN #20 tab 05/21/18 [Nitrostat] atorvastatin 80 mg tablet 80 mg PO QHS 07/24/18 glimepiride 2 mg tablet 1 mg PO DAILY tab 07/24/18 pantoprazole 40 mg tablet,delayed 40 mg PO DAILY 07/24/18 release furosemide 20 mg tablet 20 mg PO DAILY PRN PRN 07/25/18 Amlodipine Besylate 10 mg PO DAILY 09/09/18 Aspirin E.C. [Ecotrin] 81 mg PO DAILY@0800 09/09/18 Lisinopril [Zestril] 20 mg PO BID 09/09/18 - Social History Tobacco Use: non-smoker Vital Signs Temp Pulse Resp BP Pulse Ox 98.2 F 86 20 H 174/81 H 99 09/10/18 13:26 09/10/18 13:26 09/10/18 13:26 09/10/18 13:26 09/10/18 13:26 Oxygen Flow Rate (L/min) 5 Oxygen Delivery Method Nasal Cannula Weight: 100 kg Body Mass Index (BMI) 29.0 Microbiology Past 72 Hours 09/09/18 11:35 Bacteria Detection (PCR) - Final Blood Culture (Wb) - Left Forearm Staphylococcus aureus Blood Culture - Preliminary 09/09/18 11:45 Blood Culture - Preliminary Blood Culture (Wb) - Anticubital Right 09/09/18 13:15 Legionella Antigen - Final Urine, Clean Catch 09/09/18 13:15 Streptococcus pneumoniae Antigen (M - Final Urine, Clean Catch Laboratory Tests Past 24 Hrs 09/10/18 09/10/18 05:18 05:18 WBC 12.0 H RBC 3.24 L Hgb 9.7 L Hct 27.9 L MCV 86.1 MCH 29.9 MCHC 34.8 RDW 13.3 RDW Differential 42.5 Plt Count 169 MPV 9.1 Immature Gran % (Auto) 0.100 Neut % (Auto) 81.3 H Lymph % (Auto) 4.4 L [place] % (Auto) 14.1 H Eos % (Auto) 0.0 Baso % (Auto) 0.1 Absolute Neuts (auto) 9.7 H Absolute Lymphs (auto) 0.52 L Total Counted Not Reportable Differential Comment SCANNED Diff Path Review Reviewed Sodium 124 L Potassium 4.1 Chloride 90 L Carbon Dioxide 23.0 Anion Gap 11 BUN 22 H Creatinine 1.74 H Estim Creat Clear Calc 51.02 Est GFR (MDRD) Af Amer 52 L Est GFR (MDRD) Non-Af 43 L BUN/Creatinine Ratio 12.6 Glucose 156 H Calcium 7.8 L - Other Studies Radiology: [] reviewed Other Studies: [] Route of nutrition/ use of supplements: [] Nutritional Intake: [] IV Site: [] Zhu Catheter: [] - Physical Exam General: Alert, Oriented x3, Cooperative, No apparent distress HEENT: Atraumatic, PERRLA, EOMI, - - poor dentition Neck: Supple, No Nodes Lungs: Clear to auscultation, Normal air movement Cardiovascular: Regular rate, Regular Rhythm, Murmur Abdomen: Soft, Non Tender, Non-Distended Extremities: No edema Skin: Ulcer/ Wound - L 3rd toe with swelling, redness, ulceration IV Site: Peripheral, without redness Musculoskeletal: No Tenderness to Palpation of Joints or Extremities Neurological: Cranial nerves II-XII grossly intact - Assessment/Plan Antibiotics: [] Assessment/Plan: [] sepsis (fever, tachycardia, leukocytosis) due to mssa bacteremia, likely source is L toe ulcer. Heart murmur raises concern for endocarditis. Will need echo. Foot xray pending. Likely will need podiatry and mri of foot. Repeat bcx. No issues with amoxicillin in the past. Has been on vanc/levaquin. Low suspicion for neumonia; CT chest clear. Unable to reproduce R sided pain on exam. Will narrow abx to cefazolin for better mssa bactericidal effect. Will check panorex given dentition, but staph aureus is unlikely to come from oral source. Will follow, thank you, d/w Dr. Head.
--- NOTE | 2018-09-10 16:00 | RAD_ITS ---
STUDY: X-RAY - LEFT FOOT CLINICAL: Male, 58 years old. Pain TECHNIQUE: 3 view(s) of the foot. COMPARISON: None. FINDINGS: There is no evidence of fracture or dislocation. No osseous erosions are present. Plantar calcaneal spurring is present. Hypertrophic changes are present at the Achilles tendon insertion. There is mild lateral subluxation at the second and third MTP joints. There are no radiodense foreign bodies. RAD/Foot min 3 Views IMPRESSION: No fracture or dislocation. Degenerative changes described above. No evidence of infection. Electronically Signed: Ezekiel Lozano, at 17:18 EDT Tel , Service support ,
[2018-09-10] MEDS: Cefazolin 2 GM in 0.9% Normal Saline 100 ML IV ×2 (16:43→21:53)
[2018-09-10] MEDS: 0.9% Normal Saline 1,000 ML 125 ML IV (16:47)
[2018-09-10 17:06] LABS: Bedside Glucose 180 mg/dL (70-110)
[2018-09-10] MEDS: Atorvastatin Calcium 80 MG Tablet PO (21:52)
[2018-09-10] MEDS: MELATONIN 3 MG TABLET PO (21:52)
[2018-09-10 22:45] LABS: Bedside Glucose 169 mg/dL (70-110)
[2018-09-11] VITALS (15 sets, daily range): BP systolic 122–161; BP diastolic 71–91; PULSE 72–109; RESP 16–20; TEMP 36.8–37.9; O2SAT 93–99
[2018-09-11] MEDS: Acetaminophen 325 MG Tablet 650 MG PO ×2 (03:31→09:59)
[2018-09-11] MEDS: Albuterol 2.5 MG/3 ML VIAL.NEB. INHALATION (04:38)
[2018-09-11 06:26] LABS: Anion Gap 9 (5-15); BUN 33 mg/dL (7-18); BUN/Creat Ratio 19.1 RATIO (10-20); Calcium,Total 7.3 mg/dL (8.5-10.1); Chloride 94 mmol/L (98-107); Creatinine, Serum 1.73 mg/dL (0.70-1.30); EST Glomerular Filtration Rate 43 mL/min (>60); Est Glom Filt Rate - Afr Amer 52 mL/min (>60); Estimated Creatinine Clearance 51.32 ml/min; Glucose 140 mg/dL (74-106); Potassium 3.8 mmol/L (3.5-5.1); Sodium Level 126 mmol/L (136-145)
[2018-09-11] MEDS: Cefazolin 2 GM in 0.9% Normal Saline 100 ML IV ×3 (06:46→22:49)
[2018-09-11] MEDS: Heparin Injection (Vial) 5,000 UNIT/ML VIAL 5000 UNIT SC ×3 (06:50→23:03)
[2018-09-11 06:51] LABS: Absolute Lymphocyte Count 0.67 X10^3/ul (0.83-4.51); Absolute Neutrophil Count 5.8 X10^3/uL (2.0-7.7); Basophil# 0.01 X10^3/uL; Basophil% 0.1 % (0-1); Eosinophil# 0.02 X10^3/uL; Eosinophils% 0.2 % (0-5); Hematocrit 25.9 % (40-54); Hemoglobin 8.9 g/dl (13.0-16.5); Lymphocyte # 0.67 X10^3/ul (4.0); Lymphocyte % 8.2 % (19-41); Mean Corp Hgb Conc 34.4 g/gl (32-36); Mean Corpuscular Hgb 29.6 pg (27.0-32.0); Mean Platelet Vol. 9.6 fl (6.2-12.0); Monocyte# 1.68 X10^3/uL; Monocyte% 20.6 % (0-10); Neutrophil # 5.78 X10^3/uL (2.7-7.7); Neutrophil % 70.8 % (47-70); Platelet Count 167 K/mm3 (150-450); RBC Distribution Width CV 13.6 % (11.6-14.6); RBC Distribution Width SD 43.2 fl (35.1-43.9); Red Blood Count 3.01 M/mm3 (4.6-6.2); White Blood Count 8.2 K/mm3 (4.4-11.0)
[2018-09-11 06:59] LABS: Differential Indicated SCAN CRITERIA MET; POSITIVE COUNT NO; POSITIVE DIFFERENTIAL YES; POSITIVE MORPHOLOGY NO
[2018-09-11 07:16] LABS: Bedside Glucose 142 mg/dL (70-110)
--- NOTE | 2018-09-11 07:27 | MRI_ITS ---
STUDY: MRI LEFT FOREFOOT WITHOUT CONTRAST REASON FOR EXAM: Ulcer left third toe, distal swelling. TECHNIQUE: Standardized fat and water weighted pulse sequences were obtained in all 3 orthogonal planes. COMPARISON: Radiographs 09/10/2018. FINDINGS: Normal metatarsophalangeal joint of the hallux. Normal tibial and fibular sesamoids, with normal sesamoids-first metatarsal articulations. Normal interphalangeal joint of the hallux. Normal proximal and distal phalanges of the great toe. Normal medial and lateral heads of the flexor hallucis brevis tendons. Normal flexor and extensor hallucis longus tendons. Normal second through fifth metatarsophalangeal (MTP) joints. Normal interphalangeal joints of the second through fifth toes. There is bone edema of the third distal phalanx (inversion recovery sagittal images 8, 9) with corresponding decreased T1 bone marrow signal (T1 sagittal images 8, 9), suggestive of osteomyelitis. There is no bone edema of the other phalanges. There is an intermetatarsal neuroma in the second webspace (T1 series 4 image 22) measuring 0.5 cm in AP dimension. Normal flexor and extensor tendons of the second through fifth toes. There is arthropathy with bone edema of the visualized second through fourth tarsometatarsal joints and visualized midfoot (inversion recovery sagittal images 10-23) suggestive of neuropathic osteoarthropathy. There is mild edema in the intrinsic muscles of the forefoot (inversion recovery sagittal images 7-25). There is edema in the subcutis adipose space. There is no discrete fluid collection to suggest soft tissue abscess. MRI/Lower Ext/No Jt/w/o IMPRESSION: Signal alteration of the third distal phalanx suggestive of osteomyelitis. Edema in the subcutis adipose space without demonstrated soft tissue abscess. 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 Mild edema in the intrinsic muscles of the forefoot suggestive of myositis. Intermetatarsal neuroma of the second webspace. Electronically Signed: Arvind Frey MD at 10:13 EDT Tel , Service support ,
[2018-09-11] MEDS: Ipratropium/Albuterol Sulfate 3 ML AMPUL.NEB INHALATION ×4 (07:32→18:59)
[2018-09-11] MEDS: Lisinopril 20 MG Tablet PO ×2 (07:58→23:04)
[2018-09-11] MEDS: Pantoprazole Sodium 40 MG Tablet PO (07:58)
[2018-09-11] MEDS: amLODIPine 10 MG Tablet PO (07:58)
[2018-09-11] MEDS: Aspirin E.C. 81 MG Tablet PO (07:58)
[2018-09-11] MEDS: hydrOXYzine PAM 25 MG Capsule 50 MG PO (08:00)
--- NOTE | 2018-09-11 08:10 | PN_ITS ---
Patient Problems: Active and Suspected Problems (Last Reviewed 07/25/18 @ 08:52 by Fredo Rodriguez MD) MSSA bacteremia (Acute) Subjective: Patient reports generalized body aches, but no specific areas of pain. Patient still requires supplemental oxygen to maintain saturations, but does not report any significant productive cough at this time. Patient is not reporting any allergic reaction to cefazolin. Objective: Repeat blood cultures are preliminary positive for gram positives in clusters - Physical Exam General: Alert, Oriented x3, Cooperative, No apparent distress, - - No conversational dyspnea. HEENT: Atraumatic, PERRLA, EOMI, Normocephalic, - - No scleral icterus or injection noted. Oral: Moist Mucosa, No Gingival or Mucosal Lesions/ Ulcerations Neck: Supple, No JVD, No Nodes, Trachea Midline Lungs: No rhonchi, No wheeze, No rales, Diminished, - - Symmetric expansion. No dullness to percussion. Patient did receive aerosol just prior to my evaluation Cardiovascular: Normal S1, Normal S2, No murmurs, No rub noted, No Gallop, Tachycardic Abdomen: Bowel Sounds Present, Soft, Non Tender, Non-Distended, Obese Extremities: No clubbing, No cyanosis, No edema, Capillary Refill Less than 3 Seconds Skin: No rashes, No breakdown Musculoskeletal: No Tenderness to Palpation of Joints or Extremities Lymphatic: No Cervical, Supraclavicular, or Inguinal Adenopathy Neurological: Cranial nerves II-XII grossly intact, Neuro grossly intact, Motor Exam 5/5 strength throughout Psych/Mental Status: Alert and oriented to time, place, person, mood and affect Vital Signs Temp Pulse Resp BP Pulse Ox 36.8 C 84 18 145/79 H 93 09/11/18 07:00 09/11/18 07:32 09/11/18 07:32 09/11/18 07:00 09/11/18 07:32 Oxygen Flow Rate (L/min) 4 Oxygen Delivery Method Nasal Cannula Weight: 100 kg Body Mass Index (BMI) 29.0 Intake and Output for Last 24 Hours 09/09/18 09/10/18 09/11/18 23:59 23:59 23:59 Intake Total 2729 / 2729 1353 / 1353 Output Total 880 / 880 425 / 425 Balance 1849 / 1849 928 / 928 Microbiology Past 72 Hours 09/10/18 08:50 Blood Culture - Preliminary Blood Culture (Wb) - Right Forearm 09/10/18 08:54 Blood Culture - Preliminary Blood Culture (Wb) - Anticubital Left 09/09/18 11:35 Bacteria Detection (PCR) - Final Blood Culture (Wb) - Left Forearm Staphylococcus aureus Blood Culture - Preliminary 09/09/18 11:45 Blood Culture - Preliminary Blood Culture (Wb) - Anticubital Right 09/09/18 13:15 Legionella Antigen - Final Urine, Clean Catch 09/09/18 13:15 Streptococcus pneumoniae Antigen (M - Final Urine, Clean Catch Laboratory Tests Past 24 Hrs 09/10/18 09/11/18 09/11/18 05:18 05:25 05:25 WBC 8.2 RBC 3.01 L Hgb 8.9 L Hct 25.9 L MCV 86.0 MCH 29.6 MCHC 34.4 RDW 13.6 RDW Differential 43.2 Plt Count 167 MPV 9.6 Immature Gran % (Auto) 0.100 Neut % (Auto) 70.8 H Lymph % (Auto) 8.2 L [place] % (Auto) 20.6 H Eos % (Auto) 0.2 Baso % (Auto) 0.1 Absolute Neuts (auto) 5.8 Absolute Lymphs (auto) 0.67 L Total Counted Not Reportable Differential Comment Diff Path Review Reviewed Sodium 126 L Potassium 3.8 Chloride 94 L Carbon Dioxide 23.0 Anion Gap 9 BUN 33 H Creatinine 1.73 H Estim Creat Clear Calc 51.32 Est GFR (MDRD) Af Amer 52 L Est GFR (MDRD) Non-Af 43 L BUN/Creatinine Ratio 19.1 Glucose 140 H Calcium 7.3 L POC Glucose 09/11/18 09/10/18 09/10/18 06:54 21:59 16:43 POC Glucose 142 H 169 H 180 H 09/10/18 11:20 POC Glucose 220 H Clinical Impression(s) from Imaging Studies Mandible X-Ray 09/10/18 15:37 IMPRESSION: No mandibular fracture or evidence of infection identified. If indicated, further evaluation with CT can be performed. Moderate degenerative changes with mild subluxation at the C3-C4 level. Correlate clinically. Electronically Signed: Ezekiel Lozano, at 17:39 EDT Tel , Service support , Foot X-Ray 09/10/18 16:00 IMPRESSION: No fracture or dislocation. Degenerative changes described above. No evidence of infection. Electronically Signed: Ezekiel Lozano, at 17:18 EDT Tel , Service support , Medical Necessity - Tobacco Use Smoking Status: Never smoker Tobacco Use: Non-smoker Assessment/Plan All Active Problems (Last Reviewed 07/25/18 @ 08:52 by Fredo Rodriguez MD) MSSA bacteremia (Acute) RECOMMENDATIONS: 1. Monitor oxygen status closely 2. Monitor blood pressures closely 3. Aggressive incentive spirometer 4. Await infectious disease recommendations 5. Outpatient dental evaluation IMPRESSIONS: 1. Severe sepsis secondary to MSSA Exact nidus is unclear at this time. Patient does appear to have a fractured molar, which may be a source. Some concern that patient is not clear blood cultures after 24 hours of antibiotics. Infectious disease is currently following. Patient would be at high risk for septic emboli and endocarditis if this were to persist. We will continue to monitor oxygen status closely. Patient may require cardiology evaluation for BRODY. Patient does not have a history of obstructive lung disease in the past, so steroids are likely not indicated. We will continue with mucolytic therapy. 2. Coronary artery disease status post recent CABG/diabetes mellitus type 2/hypertension/chronic diastolic CHF Complicates care, management, recovery and prognosis. Do not believe patient requires any steroids at this time. Reasonable to hold Lasix given positive blood cultures. Agree with sliding scale insulin for blood sugars. Code Visit Inpatient E&M: 77288 Subs Hosp L2
--- NOTE | 2018-09-11 08:42 | NURSING ---
Pt off of floor MRI
--- NOTE | 2018-09-11 10:20 | RAD_ITS ---
STUDY: X-RAY - LUMBAR SPINE REASON FOR EXAM: Male, 58 years old. Back pain. No known injury. TECHNIQUE: 3 view(s) of the lumbar spine were obtained. COMPARISON: None FINDINGS: Normal lumbar lordosis. There is a mild dextroscoliosis of the lumbar spine. There is a normal alignment of the vertebrae. There is multilevel endplate spondylosis of the lumbar vertebrae. There is multi-level degenerative disc disease with multi-level disc space narrowing. Mild degree of loss of height of the superior endplate of the L1 vertebrae. There is atherosclerotic calcification of the abdominal aorta without a demonstrated aneurysm. RAD/Lumbar Spine 2 or 3 Views IMPRESSION: Degenerative changes of the spine, as detailed above. Electronically Signed: Emir Kwan, at 15:30 EDT , Service support ,
--- NOTE | 2018-09-11 10:26 | PCM.PN.ID ---
Patient Problems: Active and Suspected Problems (Last Reviewed 07/25/18 @ 08:52 by Fredo Rodriguez MD) MSSA bacteremia (Acute) Subjective: Feeling ok, still R sided chest pain, no fever, no n/v/d. - Physical Exam General: Alert, Cooperative, No apparent distress Lungs: Clear to auscultation, Normal air movement Cardiovascular: Regular rate, Regular Rhythm Abdomen: Soft, Non Tender, Non-Distended Skin: Ulcer/ Wound - L 3rd toe dry ulcer, some swelling and redness Vital Signs Temp Pulse Resp BP Pulse Ox 98.3 F 82 18 145/79 H 93 09/11/18 07:00 09/11/18 08:10 09/11/18 07:32 09/11/18 07:00 09/11/18 07:32 Oxygen Flow Rate (L/min) 4 Oxygen Delivery Method Nasal Cannula Weight: 100 kg Body Mass Index (BMI) 29.0 Intake and Output for Last 24 Hours 09/09/18 09/10/18 09/11/18 23:59 23:59 23:59 Intake Total 2729 / 2729 2559 / 2559 Output Total 880 / 880 925 / 925 Balance 1849 / 1849 1634 / 1634 Microbiology Past 72 Hours 09/09/18 11:45 Blood Culture - Preliminary Blood Culture (Wb) - Anticubital Right 09/09/18 11:35 Bacteria Detection (PCR) - Final Blood Culture (Wb) - Left Forearm Staphylococcus aureus Blood Culture - Preliminary 09/10/18 08:50 Blood Culture - Preliminary Blood Culture (Wb) - Right Forearm 09/10/18 08:54 Blood Culture - Preliminary Blood Culture (Wb) - Anticubital Left 09/09/18 13:15 Legionella Antigen - Final Urine, Clean Catch 09/09/18 13:15 Streptococcus pneumoniae Antigen (M - Final Urine, Clean Catch Laboratory Tests Past 24 Hrs 09/10/18 09/11/18 09/11/18 05:18 05:25 05:25 WBC 8.2 RBC 3.01 L Hgb 8.9 L Hct 25.9 L MCV 86.0 MCH 29.6 MCHC 34.4 RDW 13.6 RDW Differential 43.2 Plt Count 167 MPV 9.6 Immature Gran % (Auto) 0.100 Neut % (Auto) 70.8 H Lymph % (Auto) 8.2 L [place] % (Auto) 20.6 H Eos % (Auto) 0.2 Baso % (Auto) 0.1 Absolute Neuts (auto) 5.8 Absolute Lymphs (auto) 0.67 L Total Counted Not Reportable Differential Comment Diff Path Review Reviewed Sodium 126 L Potassium 3.8 Chloride 94 L Carbon Dioxide 23.0 Anion Gap 9 BUN 33 H Creatinine 1.73 H Estim Creat Clear Calc 51.32 Est GFR (MDRD) Af Amer 52 L Est GFR (MDRD) Non-Af 43 L BUN/Creatinine Ratio 19.1 Glucose 140 H Calcium 7.3 L POC Glucose 09/11/18 09/10/18 09/10/18 06:54 21:59 16:43 POC Glucose 142 H 169 H 180 H 09/10/18 11:20 POC Glucose 220 H Medical Necessity - Tobacco Use Smoking Status: Never smoker Tobacco Use: Non-smoker Route of nutrition/ use of supplements: [] Nutritional Intake: [] IV Site: [] Zhu Catheter: [] - Assessment/Plan Antibiotics: [] Assessment/Plan: [] sepsis (fever, tachycardia, leukocytosis) due to mssa bacteremia, likely source is L toe ulcer. Heart murmur raises concern for endocarditis. Pending echo. Foot mri pending. Likely will need podiatry eval. Tolerating cefazolin with no issue so far, will continue. Repeat bcx (+) from yesterday. Will follow
--- NOTE | 2018-09-11 10:36 | PCM.PN.HOSP ---
Patient Problems: Active and Suspected Problems (Last Reviewed 07/25/18 @ 08:52 by Fredo Rodriguez MD) MSSA bacteremia (Acute) Subjective: complains of back pain. no radicular pain. no bowel/bladder incontinence. Vitals/I&O's: Vital Signs Temp Pulse Resp BP Pulse Ox 36.8 C 82 18 145/79 H 93 09/11/18 07:00 09/11/18 08:10 09/11/18 07:32 09/11/18 07:00 09/11/18 07:32 Oxygen Flow Rate (L/min) 4 Oxygen Delivery Method Nasal Cannula Weight: 100 kg Body Mass Index (BMI) 29.0 Intake and Output for Last 24 Hours 09/09/18 09/10/18 09/11/18 23:59 23:59 23:59 Intake Total 2729 / 2729 2559 / 2559 Output Total 880 / 880 925 / 925 Balance 1849 / 1849 1634 / 1634 General: Alert, No apparent distress HEENT: Atraumatic, Normocephalic Oral: Moist Mucosa, No Gingival or Mucosal Lesions/ Ulcerations Neck: No Nodes, Thyroid Normal Size and Texture Lungs: Clear to auscultation, Normal air movement, No rhonchi, No wheeze Cardiovascular: Regular rate, Regular Rhythm, Normal S1, Normal S2, No murmurs Abdomen: Bowel Sounds Present, Soft, Non Tender, Non-Distended, No Hepato-splenomegaly Extremities: No edema, No Calf Tenderness Skin: No rashes, No breakdown Musculoskeletal: No Tenderness to Palpation of Joints or Extremities, No Muscle Wasting, - - reproducible lower lumbar paraspinal tenderness. Neurological: Neuro grossly intact, Coordination normal Psych/Mental Status: Normal Affect, Appropriate Microbiology Past 72 Hours 09/09/18 11:45 Blood Culture (Wb) - Anticubital Right Blood Culture - Preliminary 09/09/18 11:35 Blood Culture (Wb) - Left Forearm Bacteria Detection (PCR) - Final Staphylococcus aureus 09/09/18 11:35 Blood Culture (Wb) - Left Forearm Blood Culture - Preliminary 09/10/18 08:50 Blood Culture (Wb) - Right Forearm Blood Culture - Preliminary 09/10/18 08:54 Blood Culture (Wb) - Anticubital Left Blood Culture - Preliminary 09/09/18 13:15 Urine, Clean Catch Legionella Antigen - Final 09/09/18 13:15 Urine, Clean Catch Streptococcus pneumoniae Antigen (M - Final Laboratory Results 09/10/18 05:18: Diff Path Review Reviewed 09/10/18 11:20: POC Glucose 220 H 09/10/18 16:43: POC Glucose 180 H 09/10/18 21:59: POC Glucose 169 H 09/11/18 05:25: WBC 8.2, RBC 3.01 L, Hgb 8.9 L, Hct 25.9 L, MCV 86.0, MCH 29.6, MCHC 34.4, RDW 13.6, RDW Differential 43.2, Plt Count 167, MPV 9.6, Immature Gran % (Auto) 0.100, Neut % (Auto) 70.8 H, Lymph % (Auto) 8.2 L, [place] % (Auto) 20.6 H, Eos % (Auto) 0.2, Baso % (Auto) 0.1, Absolute Neuts (auto) 5.8, Absolute Lymphs (auto) 0.67 L, Total Counted Not Reportable, Differential Comment 09/11/18 05:25: Sodium 126 L, Potassium 3.8, Chloride 94 L, Carbon Dioxide 23.0, Anion Gap 9, BUN 33 H, Creatinine 1.73 H, Estim Creat Clear Calc 51.32, Est GFR (MDRD) Af Amer 52 L, Est GFR (MDRD) Non-Af 43 L, BUN/Creatinine Ratio 19.1, Glucose 140 H, Calcium 7.3 L 09/11/18 06:54: POC Glucose 142 H Current Medications Acetaminophen (Tylenol) 1,000 mg PO Q8 [facility] Albuterol Sulfate (Ventolin Aerosols) 2.5 mg INHALATION Q2H PRN PRN Reason: SOB &/OR WHEEZING Last Admin: 09/11/18 04:38 Dose: 2.5 mg Albuterol/Ipratropium (Duoneb) 3 ml INHALATION Q4HWA.RT PENNIE Last Admin: 09/11/18 07:32 Dose: 3 ml Amlodipine Besylate (Norvasc) 10 mg PO DAILY PENNIE Last Admin: 09/11/18 07:58 Dose: 10 mg Aspirin (Ecotrin) 81 mg PO DAILY@0800 [facility] Last Admin: 09/11/18 07:58 Dose: 81 mg Atorvastatin Calcium (Lipitor) 80 mg PO QHS [facility] Last Admin: 09/10/18 21:52 Dose: 80 mg Cyclobenzaprine HCl (Cyclobenzaprine Hcl) 5 mg PO TID [facility] Dextrose (D50w Syringe) 0 gm IV X1 PRN; Protocol PRN Reason: Hypoglycemia Docusate Sodium (Colace) 200 mg PO BID PRN PRN PRN Reason: Constipation Glucagon () 1 mg IM .X1 PRN PRN Reason: Hypoglycemia Guaifenesin (Mucinex) 1,200 mg PO BID PRN PRN PRN Reason: COUGH Heparin Sodium (Porcine) (Heparin Na) 5,000 unit SC Q8 [facility] Last Admin: 09/11/18 06:50 Dose: 5,000 unit Hydroxyzine Pamoate (Vistaril Pamoate Capsule) 50 mg PO Q6H PRN PRN Reason: ANXIETY Last Admin: 09/11/18 08:00 Dose: 50 mg Cefazolin Sodium 2 gm/ Sodium (Chloride) 110 mls @ 150 mls/hr IV Q8 [facility] Last Admin: 09/11/18 06:46 Dose: 150 mls/hr Sodium Chloride () 1,000 mls @ 125 mls/hr IV .Q8H [facility] Stop: 09/11/18 16:24 Insulin Human Lispro (Humalog Kwikpen (Bkc)) 0 unit SQ ACHS [facility]; Protocol Last Admin: 09/11/18 06:55 Dose: Not Given Lisinopril (Zestril) 20 mg PO BID [facility] Last Admin: 09/11/18 07:58 Dose: 20 mg Melatonin (Melatonin) 3 mg PO QHS PRN PRN Reason: INSOMNIA Last Admin: 09/10/18 21:52 Dose: 3 mg Nitroglycerin (Nitrostat) 0.4 mg SUBLINGUAL Q5M PRN PRN Reason: CARDIAC/CHEST PAIN Ondansetron HCl (Zofran) 4 mg IV Q8H PRN PRN PRN Reason: NAUSEA/VOMITING Oxycodone HCl (Oxyir) 5 mg PO Q4H PRN PRN PRN Reason: SEVERE PAIN (6-10/10) Pantoprazole Sodium (Protonix) 40 mg PO DAILY [facility] Last Admin: 09/11/18 07:58 Dose: 40 mg Sodium Chloride () 5 - 15 ml IV UD PRN PRN Reason: SALINE FLUSH Last Admin: 09/09/18 22:07 Dose: 10 ml Medical Necessity - Tobacco Use Smoking Status: Never smoker Tobacco Use: Non-smoker Assessment/Plan All Active Problems (Last Reviewed 07/25/18 @ 08:52 by Fredo Rodriguez MD) MSSA bacteremia (Acute) 1. Sepsis POA 2/2 bacteremia and osteomyelitis no pneumonia on CT--ruled out improving 2. Bacteremia: S. aureus likely from OM on cefazolin repeat BCx 09/10 still +, repeat again 09/11 check left foot xray (had a cellulitis 3 weeks ago) and has a superficial ulceration on 3rd toe. check TTE given recent CABG 3. Left 3rd toe osteomyelitis likely source of #[address] Barnett of podiatry DW patient about MRI findings and mentioned that he may require an amputation 4. RAFA no change unclear etiology, though may be due to IV contrast from CTA (doubt due to vancomycin as it was given during the blood draw for the lab) continue IVF reevaluate in AM 5. hyponatremia continue IVF review of medications shows no obvious culprit monitor IVF (NS) 6. Acute hypoxic respiratory insufficiency still requiring oxygen no PNA, PE monitor wean oxygen as tolerated 6. VTE prophy: SQ heparin. Code Visit Inpatient E&M: 37980 Subs Hosp L3
[2018-09-11] MEDS: oxyCODONE 5 MG Tablet PO ×3 (10:41→22:47)
--- NOTE | 2018-09-11 10:44 | PN_ITS ---
Patient Problems: Active and Suspected Problems (Last Reviewed 07/25/18 @ 08:52 by Fredo Rodriguez MD) MSSA bacteremia (Acute) Subjective: complains of back pain. no radicular pain. no bowel/bladder incontinence. Vitals/I&O's: Vital Signs Temp Pulse Resp BP Pulse Ox 36.8 C 82 18 145/79 H 93 09/11/18 07:00 09/11/18 08:10 09/11/18 07:32 09/11/18 07:00 09/11/18 07:32 Oxygen Flow Rate (L/min) 4 Oxygen Delivery Method Nasal Cannula Weight: 100 kg Body Mass Index (BMI) 29.0 Intake and Output for Last 24 Hours 09/09/18 09/10/18 09/11/18 23:59 23:59 23:59 Intake Total 2729 / 2729 2559 / 2559 Output Total 880 / 880 925 / 925 Balance 1849 / 1849 1634 / 1634 General: Alert, No apparent distress HEENT: Atraumatic, Normocephalic Oral: Moist Mucosa, No Gingival or Mucosal Lesions/ Ulcerations Neck: No Nodes, Thyroid Normal Size and Texture Lungs: Clear to auscultation, Normal air movement, No rhonchi, No wheeze Cardiovascular: Regular rate, Regular Rhythm, Normal S1, Normal S2, No murmurs Abdomen: Bowel Sounds Present, Soft, Non Tender, Non-Distended, No Hepato-splenomegaly Extremities: No edema, No Calf Tenderness Skin: No rashes, No breakdown Musculoskeletal: No Tenderness to Palpation of Joints or Extremities, No Muscle Wasting, - - reproducible lower lumbar paraspinal tenderness. Neurological: Neuro grossly intact, Coordination normal Psych/Mental Status: Normal Affect, Appropriate Microbiology Past 72 Hours 09/09/18 11:45 Blood Culture (Wb) - Anticubital Right Blood Culture - Preliminary 09/09/18 11:35 Blood Culture (Wb) - Left Forearm Bacteria Detection (PCR) - Final Staphylococcus aureus 09/09/18 11:35 Blood Culture (Wb) - Left Forearm Blood Culture - Preliminary 09/10/18 08:50 Blood Culture (Wb) - Right Forearm Blood Culture - Preliminary 09/10/18 08:54 Blood Culture (Wb) - Anticubital Left Blood Culture - Preliminary 09/09/18 13:15 Urine, Clean Catch Legionella Antigen - Final 09/09/18 13:15 Urine, Clean Catch Streptococcus pneumoniae Antigen (M - Final Laboratory Results 09/10/18 05:18: Diff Path Review Reviewed 09/10/18 11:20: POC Glucose 220 H 09/10/18 16:43: POC Glucose 180 H 09/10/18 21:59: POC Glucose 169 H 09/11/18 05:25: WBC 8.2, RBC 3.01 L, Hgb 8.9 L, Hct 25.9 L, MCV 86.0, MCH 29.6, MCHC 34.4, RDW 13.6, RDW Differential 43.2, Plt Count 167, MPV 9.6, Immature Gran % (Auto) 0.100, Neut % (Auto) 70.8 H, Lymph % (Auto) 8.2 L, [place] % (Auto) 20.6 H, Eos % (Auto) 0.2, Baso % (Auto) 0.1, Absolute Neuts (auto) 5.8, Absolute Lymphs (auto) 0.67 L, Total Counted Not Reportable, Differential Comment 09/11/18 05:25: Sodium 126 L, Potassium 3.8, Chloride 94 L, Carbon Dioxide 23.0, Anion Gap 9, BUN 33 H, Creatinine 1.73 H, Estim Creat Clear Calc 51.32, Est GFR (MDRD) Af Amer 52 L, Est GFR (MDRD) Non-Af 43 L, BUN/Creatinine Ratio 19.1, Glucose 140 H, Calcium 7.3 L 09/11/18 06:54: POC Glucose 142 H Current Medications Acetaminophen (Tylenol) 1,000 mg PO Q8 [facility] Albuterol Sulfate (Ventolin Aerosols) 2.5 mg INHALATION Q2H PRN PRN Reason: SOB &/OR WHEEZING Last Admin: 09/11/18 04:38 Dose: 2.5 mg Albuterol/Ipratropium (Duoneb) 3 ml INHALATION Q4HWA.RT PENNIE Last Admin: 09/11/18 07:32 Dose: 3 ml Amlodipine Besylate (Norvasc) 10 mg PO DAILY PENNIE Last Admin: 09/11/18 07:58 Dose: 10 mg Aspirin (Ecotrin) 81 mg PO DAILY@0800 [facility] Last Admin: 09/11/18 07:58 Dose: 81 mg Atorvastatin Calcium (Lipitor) 80 mg PO QHS [facility] Last Admin: 09/10/18 21:52 Dose: 80 mg Cyclobenzaprine HCl (Cyclobenzaprine Hcl) 5 mg PO TID [facility] Dextrose (D50w Syringe) 0 gm IV X1 PRN; Protocol PRN Reason: Hypoglycemia Docusate Sodium (Colace) 200 mg PO BID PRN PRN PRN Reason: Constipation Glucagon () 1 mg IM .X1 PRN PRN Reason: Hypoglycemia Guaifenesin (Mucinex) 1,200 mg PO BID PRN PRN PRN Reason: COUGH Heparin Sodium (Porcine) (Heparin Na) 5,000 unit SC Q8 [facility] Last Admin: 09/11/18 06:50 Dose: 5,000 unit Hydroxyzine Pamoate (Vistaril Pamoate Capsule) 50 mg PO Q6H PRN PRN Reason: ANXIETY Last Admin: 09/11/18 08:00 Dose: 50 mg Cefazolin Sodium 2 gm/ Sodium (Chloride) 110 mls @ 150 mls/hr IV Q8 [facility] Last Admin: 09/11/18 06:46 Dose: 150 mls/hr Sodium Chloride () 1,000 mls @ 125 mls/hr IV .Q8H [facility] Stop: 09/11/18 16:24 Insulin Human Lispro (Humalog Kwikpen (Bkc)) 0 unit SQ ACHS [facility]; Protocol Last Admin: 09/11/18 06:55 Dose: Not Given Lisinopril (Zestril) 20 mg PO BID [facility] Last Admin: 09/11/18 07:58 Dose: 20 mg Melatonin (Melatonin) 3 mg PO QHS PRN PRN Reason: INSOMNIA Last Admin: 09/10/18 21:52 Dose: 3 mg Nitroglycerin (Nitrostat) 0.4 mg SUBLINGUAL Q5M PRN PRN Reason: CARDIAC/CHEST PAIN Ondansetron HCl (Zofran) 4 mg IV Q8H PRN PRN PRN Reason: NAUSEA/VOMITING Oxycodone HCl (Oxyir) 5 mg PO Q4H PRN PRN PRN Reason: SEVERE PAIN (6-10/10) Pantoprazole Sodium (Protonix) 40 mg PO DAILY [facility] Last Admin: 09/11/18 07:58 Dose: 40 mg Sodium Chloride () 5 - 15 ml IV UD PRN PRN Reason: SALINE FLUSH Last Admin: 09/09/18 22:07 Dose: 10 ml Medical Necessity - Tobacco Use Smoking Status: Never smoker Tobacco Use: Non-smoker Assessment/Plan All Active Problems (Last Reviewed 07/25/18 @ 08:52 by Fredo Rodriguez MD) MSSA bacteremia (Acute) 1. Sepsis * POA * 2/2 bacteremia and osteomyelitis * no pneumonia on CT--ruled out * improving 2. Bacteremia: * S. aureus likely from OM * on cefazolin * repeat BCx 09/10 still +, repeat again 09/11 * check left foot xray (had a cellulitis 3 weeks ago) and has a superficial ulceration on 3rd toe. * check TTE given recent CABG 3. Left 3rd toe osteomyelitis * likely source of #2 * DW Dr. Barnett of podiatry * DW patient about MRI findings and mentioned that he may require an amputation 4. RAFA * no change * unclear etiology, though may be due to IV contrast from CTA (doubt due to vancomycin as it was given during the blood draw for the lab) * continue IVF * reevaluate in AM 5. hyponatremia * continue IVF * review of medications shows no obvious culprit * monitor * IVF (NS) 6. Acute hypoxic respiratory insufficiency * still requiring oxygen * no PNA, PE * monitor * wean oxygen as tolerated 6. VTE prophy: SQ heparin. Code Visit Inpatient E&M: 16347 Subs Hosp L3
[2018-09-11] MEDS: Acetaminophen 500 MG Tablet 1000 MG PO ×2 (11:56→23:03)
[2018-09-11] MEDS: Insulin Lispro 100 UNIT/ML INSULN.PEN SQ ×3 (11:57→23:14)
[2018-09-11 12:06] LABS: Bedside Glucose 162 mg/dL (70-110)
[2018-09-11] MEDS: cycloBENZAPRine HCl 5 MG TABLET PO ×2 (14:09→23:02)
[2018-09-11] MEDS: 0.9% Normal Saline 1,000 ML 125 ML IV (15:42)
--- NOTE | 2018-09-11 15:58 | CPS ---
PLACED PATIENT BACK ON NASAL CANNULA AT 3LPM PER PATIENT REQUEST.
[2018-09-11 17:00] LABS: Bedside Glucose 242 mg/dL (70-110)
--- NOTE | 2018-09-11 17:37 | PCM.CONS.GEN ---
Problem List (1) Hammer toe of left foot Status: Chronic (2) Osteomyelitis Status: Acute (3) Chronic ulcer of left foot with fat layer exposed Status: Chronic (4) MSSA bacteremia Status: Acute Reason for Consult Date of Consultation: 09/11/18 Reason for Consultation: infected left third toe History of Present Illness: The patient is a 58 year old M was seen bedside for left third toe infected ulcer evaluation. He was admitted for bacteremia and has already been started on IV antibiotics. He is also concurrently being worked up for other sources of sepsis and had an echocardiogram performed earlier today. His x-rays are relatively unremarkable except that he has a hammertoe deformity. MRI does suggest osteomyelitis of distal phalanx of the left third toe and given he does have an ulcer that corresponds at this site there is concern. He is fatigue and denies current fever, chill, nausea, vomiting. He does have loss of appetite. The onset of the ulcer was approximately 1 month ago when he saw blood on his sock. He denies any known trauma. Past Medical History Past Medical History (Chronic Problems): Chronic Problems (Last Reviewed 07/25/18 @ 08:52 by Fredo Rodriguez MD) Hammer toe of left foot (Chronic) Chronic ulcer of left foot with fat layer exposed (Chronic) Postoperative atrial fibrillation (Chronic 06/12/18) Sinus bradycardia (Chronic) Diastolic dysfunction with acute on chronic heart failure (Chronic) Atherosclerosis of coronary artery without angina pectoris (Chronic) CABG x 3 WALL-LAD, Free MAIK-OM, SVG-RPDA 06/12/18 H/O coronary artery bypass surgery (Chronic 06/12/18) CABG x 3 WALL-LAD, Free MAIK-OM, SVG-RPDA 06/12/18 Essential hypertension (Chronic) Medical History: Medical History (Last Reviewed 07/25/18 @ 08:52 by Fredo Rodriguez MD) Postoperative atrial fibrillation (Chronic) Onset Date: 06/12/18 I97.89, I48.91 Sinus bradycardia (Chronic) R00.1 Diastolic dysfunction with acute on chronic heart failure (Chronic) I50.33 Atherosclerosis of coronary artery without angina pectoris (Chronic) I25.10 CABG x 3 WALL-LAD, Free MAIK-OM, SVG-RPDA 06/12/18 Essential hypertension (Chronic) I10 Cataracts, both eyes H26.9 Diabetic retinopathy E11.319 GERD (gastroesophageal reflux disease) K21.9 Normocytic anemia D64.9 Obesity (BMI 30.0-34.9) E66.9 Type 2 diabetes mellitus E11.9 Allergies Penicillins [PCN] Allergy (Verified 09/09/18 10:52) Unknown Home Medications: Ambulatory Orders Medication Instructions Recorded Nitroglycerin (INPATIENT USE) 0.4 mg SUBLINGUAL Q5M PRN #20 tab 05/21/18 [Nitrostat] atorvastatin 80 mg tablet 80 mg PO QHS 07/24/18 glimepiride 2 mg tablet 1 mg PO DAILY tab 07/24/18 pantoprazole 40 mg tablet,delayed 40 mg PO DAILY 07/24/18 release furosemide 20 mg tablet 20 mg PO DAILY PRN PRN 07/25/18 Amlodipine Besylate 10 mg PO DAILY 09/09/18 Aspirin E.C. [Ecotrin] 81 mg PO DAILY@0800 09/09/18 Lisinopril [Zestril] 20 mg PO BID 09/09/18 Surgical History: Surgical History (Last Reviewed 07/25/18 @ 08:52 by Fredo Rodriguez MD) H/O coronary artery bypass surgery (Chronic) Onset Date: 06/12/18 Z95.1 CABG x 3 WALL-LAD, Free MAIK-OM, SVG-RPDA 06/12/18 Amputated toe S98.139A History of left heart catheterization Onset Date: 05/20/18 Z98.890 Hx of cholecystectomy Z90.49 S/P meniscectomy Z98.890 Surgical History: cataract, cholecystectomy, coronary bypass surgery, total knee arthroplasty, - - toe partial amputation, skin cancer facial Psychiatric History: No pertinent psych hx Lives: With Family Smoking Status: Never smoker Tobacco Use: Non-smoker Alcohol: None - *Family History Maternal Family History: Family History (Last Reviewed 07/25/18 @ 08:52 by Fredo Rodriguez MD) Mother Diabetes History Items: Diabetes Paternal Family History: Family History (Last Reviewed 07/25/18 @ 08:52 by Fredo Rodriguez MD) Mother Diabetes History Items: No pertinent history Review of Systems Constitutional: Reports: Fatigue. Denies: Chills, Fever Cardiovascular: Denies: Chest Pain, Claudication Respiratory: Denies: Shortness of Breath Gastrointestinal: Denies: Diarrhea, Nausea, Vomiting Musculoskeletal: Reports: Foot Pain. Denies: Leg Pain Skin: Reports: Skin Changes, Wounds Neurological: Reports: Balance problems, Numbness, Tingling Hematologic/ Lymphatic: Denies: Easy Bruising, Easy Bleeding Patient Problems: Active and Suspected Problems (Last Reviewed 07/25/18 @ 08:52 by Fredo Rodriguez MD) MSSA bacteremia (Acute) Osteomyelitis (Acute) - Physical Exam General: Alert, Oriented x3, Cooperative, No apparent distress HEENT: Atraumatic Extremities: No cyanosis, Capillary Refill Less than 3 Seconds - all digits bilateral foot, No Calf Tenderness - negative erwin and crabtree signs bilateral, Peripheral Pulses Normal - 2/4 pt and dp pulses bilateral. Hair noted to midfoot bilateral, - - dorsal contraction left third toe (rigid) . partial left second toe amputation noted. compartment foot remain soft. no fluctuance or bogginess on palpation noted Skin: Ulcer/ Wound - [id number] distal left third toe ulcer noted w/ probe to deep structures; seropurulent drainage noted. no erythema noted. the distal toe is bulbous with edema and inflammation. Musculoskeletal: No Tenderness to Palpation of Joints or Extremities, Muscle Wasting Neurological: - - lack of epicritic sensation note consisted with neuropathy Psych/Mental Status: Normal Affect, Appropriate Vital Signs Temp Pulse Resp BP Pulse Ox 98.2 F 77 16 122/72 H 93 09/11/18 13:48 09/11/18 15:06 09/11/18 15:06 09/11/18 13:48 09/11/18 15:06 Oxygen Flow Rate (L/min) 3 Oxygen Delivery Method Room Air Weight: 100 kg Body Mass Index (BMI) 29.0 Intake and Output for Last 24 Hours 09/09/18 09/10/18 09/11/18 23:59 23:59 23:59 Intake Total 2729 / 2729 3397 / 3397 Output Total 880 / 880 1925 / 1925 Balance 1849 / 1849 1472 / 1472 Microbiology Past 72 Hours 09/09/18 11:45 Blood Culture - Preliminary Blood Culture (Wb) - Anticubital Right 09/09/18 11:35 Bacteria Detection (PCR) - Final Blood Culture (Wb) - Left Forearm Staphylococcus aureus Blood Culture - Preliminary 09/10/18 08:50 Blood Culture - Preliminary Blood Culture (Wb) - Right Forearm 09/10/18 08:54 Blood Culture - Preliminary Blood Culture (Wb) - Anticubital Left 09/09/18 13:15 Legionella Antigen - Final Urine, Clean Catch 09/09/18 13:15 Streptococcus pneumoniae Antigen (M - Final Urine, Clean Catch Laboratory Tests Past 24 Hrs 09/11/18 09/11/18 05:25 05:25 WBC 8.2 RBC 3.01 L Hgb 8.9 L Hct 25.9 L MCV 86.0 MCH 29.6 MCHC 34.4 RDW 13.6 RDW Differential 43.2 Plt Count 167 MPV 9.6 Immature Gran % (Auto) 0.100 Neut % (Auto) 70.8 H Lymph % (Auto) 8.2 L [place] % (Auto) 20.6 H Eos % (Auto) 0.2 Baso % (Auto) 0.1 Absolute Neuts (auto) 5.8 Absolute Lymphs (auto) 0.67 L Total Counted Not Reportable Differential Comment Sodium 126 L Potassium 3.8 Chloride 94 L Carbon Dioxide 23.0 Anion Gap 9 BUN 33 H Creatinine 1.73 H Estim Creat Clear Calc 51.32 Est GFR (MDRD) Af Amer 52 L Est GFR (MDRD) Non-Af 43 L BUN/Creatinine Ratio 19.1 Glucose 140 H Calcium 7.3 L POC Glucose 09/11/18 09/11/18 09/11/18 16:52 11:49 06:54 POC Glucose 242 H 162 H 142 H 09/10/18 21:59 POC Glucose 169 H Assessment/Plan All Active Problems (Last Reviewed 07/25/18 @ 08:52 by Fredo Rodriguez MD) MSSA bacteremia (Acute) Osteomyelitis (Acute) Left third toe distal phalanx osteomyelitis Bacteremia Left third hammertoe Diabetes with neuropathy Multiple other comorbidities I reviewed and discussed his case. His diagnostic data was reviewed including labs and x-rays. His ulcer was debrided with a 15 blade scalpel to excise nonviable devitalized subcutaneous and fibrous tissue, biofilm, and slough (predebridement measurement [id number] with callous). He tolerated this well. Hemostasis was controlled with direct pressure. A deep wound culture was obtained including aerobic, anaerobic. A dressing gauze was applied. It is noted that there is deep probing and seropurulent drainage at the site. His x-rays were reviewed with hammertoe deformity. There is no soft tissue emphysema, acute fracture dislocation, osseous eliot destruction. MRI does demonstrate increased intensity to the distal phalanx which is concerning for osteomyelitis and also as a nidus of infection for his recent bacteremia. We discussed partial toe amputation versus IV antibiotics, and he is amenable to proceed with the removal of part of the left third toe tomorrow. He will continue on IV antibiotics and infectious disease recommendations are greatly appreciated. Medical management per primary team and clearance for surgery is also appreciated and was discussed with Dr. Gaitan this evening. His tentative surgery is scheduled for tomorrow afternoon. Orders will be placed for n.p.o. status and consent. The preoperative indication, planned procedure, possible benefits, risks, complications, and anticipated healing time and management were discussed in detail the patient. He understands and elects to proceed with surgery at this time. No guarantees were made. He understands risks and complications may include but are not limited to the following: Swelling, pain, delayed or nonhealing, continued infection, need for additional surgery, blood clot, allergic reaction, loss of limb, function, life, transfer lesion and further ulceration formation. I answered all his questions. Surgical consents will be signed as well as the surgical limb. Please not hesitate to call if you have any questions. Thank you very much for the consultation. Jemima Barnett DPM, [facility] [phone]
[2018-09-11 20:32] LABS: M R Staph aureus DNA By PCR Negative (Negative); Probe Check PASS; Specimen Processing Control PASS; Staph aureus DNA By PCR POSITIVE (Negative)
[2018-09-11] MEDS: Atorvastatin Calcium 80 MG Tablet PO (23:03)
[2018-09-11 23:56] LABS: Bedside Glucose 182 mg/dL (70-110)
[2018-09-12] VITALS (13 sets, daily range): BP systolic 153–193; BP diastolic 80–110; PULSE 82–98; RESP 16–20; TEMP 36.4–37.7; O2SAT 90–96; BMI 29.0
[2018-09-12] MEDS: oxyCODONE 5 MG Tablet PO ×4 (02:55→22:25)
[2018-09-12] MEDS: Acetaminophen 500 MG Tablet 1000 MG PO ×2 (05:36→22:27)
[2018-09-12] MEDS: Cefazolin 2 GM in 0.9% Normal Saline 100 ML IV ×3 (05:36→23:00)
[2018-09-12] MEDS: cycloBENZAPRine HCl 5 MG TABLET PO ×2 (05:36→23:00)
[2018-09-12 05:42] LABS: Absolute Lymphocyte Count 0.82 X10^3/ul (0.83-4.51); Basophil# 0.02 X10^3/uL; Basophil% 0.2 % (0-1); Eosinophil# 0.11 X10^3/uL; Eosinophils% 1.3 % (0-5); Hematocrit 28.5 % (40-54); Lymphocyte # 0.82 X10^3/ul (4.0); Mean Corp Hgb Conc 35.1 g/gl (32-36); Mean Corpuscular Hgb 30.5 pg (27.0-32.0); Mean Corpuscular Volume 86.9 fL (80-94); Mean Platelet Vol. 9.4 fl (6.2-12.0); Monocyte# 1.28 X10^3/uL; Monocyte% 15.6 % (0-10); Neutrophil # 5.96 X10^3/uL (2.7-7.7); Neutrophil % 72.5 % (47-70); Platelet Count 216 K/mm3 (150-450); RBC Distribution Width CV 13.9 % (11.6-14.6); RBC Distribution Width SD 44.3 fl (35.1-43.9); Red Blood Count 3.28 M/mm3 (4.6-6.2); White Blood Count 8.2 K/mm3 (4.4-11.0)
[2018-09-12 05:44] LABS: POSITIVE COUNT NO; POSITIVE DIFFERENTIAL NO; POSITIVE MORPHOLOGY NO
[2018-09-12 05:47] LABS: International Normalized Ratio 1.2; Prothrombin Time (Protime)PT. 14.9 SECONDS (11.7-14.9)
[2018-09-12 05:49] LABS: Partial Thromboplast Time 51.5 Seconds (24.1-36.2)
[2018-09-12 05:56] LABS: Anion Gap 10 (5-15); BUN 29 mg/dL (7-18); Chloride 98 mmol/L (98-107); Creatinine, Serum 1.45 mg/dL (0.70-1.30); EST Glomerular Filtration Rate 53 mL/min (>60); Est Glom Filt Rate - Afr Amer 64 mL/min (>60); Estimated Creatinine Clearance 61.23 ml/min; Glucose 126 mg/dL (74-106); Potassium 3.9 mmol/L (3.5-5.1); Sodium Level 131 mmol/L (136-145)
[2018-09-12] MEDS: Heparin Injection (Vial) 5,000 UNIT/ML VIAL 5000 UNIT SC ×2 (06:45→23:00)
[2018-09-12 07:05] LABS: Bedside Glucose 137 mg/dL (70-110)
[2018-09-12] MEDS: Ipratropium/Albuterol Sulfate 3 ML AMPUL.NEB INHALATION ×3 (07:29→19:26)
--- NOTE | 2018-09-12 07:30 | BON_PTH ---
PATIENT: CLAY RUBIO LOC: MS3 U#:[id number] AGE/SX: 58/M ROOM: [facility] [place]: Dr. Yisel Cook DO : 1960 BED: 1 DIS: 09/16/2018 SPEC #: [id number] RECD: 09/15/18 10:25 STATUS: ALEJANDRA LO #: [id number] MALLY: 09/12/18 07:[address]: Jemima Barnett DEPT: SURGICAL PATHOLOGY RECD BY: Ubaldo Self ENTERED: 09/15/18 11:14 SP TYPE: Bone OTHR DR: MD Dr. Davon Coats MD Dr. Mary Catherine Sementi, DO Dr. Eugene Petrilla, DO Dr. Paul Moodispaw, MD Dr. Robert Leininger, MD Tissues: A - Bone of foot, NOS B - Bone of foot, NOS Procedures: Decalcification bone/plaque Surgery Specimen Level IV HEADER OPERATION: Partial amputation, left 3rd toe PRE-OP DIAGNOSIS: Osteomyelitis, left third toe TISSUE SUBMITTED: A. Clearance fragment bone, left 3rd toe, B. Soft tissue and bone, left 3rd toe MICROSCOPIC DIAGNOSIS A. Clearance fragment, left third toe, biopsy: Bone with no evidence of osteomyelitis. B. Soft tissue and bone, left third toe: Chronic change of bone. No evidence of acute osteomyelitis. Skin with hyperkeratosis. AM:paloma 09/18/18 COMMENT Case has been reviewed in consultation with Dr. Garcia who concurs with the above diagnosis. IDC:ESTER MICROSCOPIC DESCRIPTION Slides are reviewed. GROSS DESCRIPTION A - Received in fixative is one container labeled with the patient's name and designated clearance fragment bone third toe. The specimen consists of a single irregular fragment of trevino bone measuring 1 x 0.5 x 0.2 cm. The specimen is totally submitted in one cassette after decalcification. B - Received in fixative is one container labeled with the patient's name and designated soft tissue and bone left third toe. The specimen consists of a fragment of bone, skin and soft tissue measuring 2.5 x 1.6 x 1 cm. The cutaneous surface displays a firm trevino lesion measuring 1 cm in greatest dimension. The specimen is sectioned and totally submitted in one cassette after decalcification. / AM:paloma 09/15/18 TC:5 CPT: 98572 x2, 26283 x2
--- NOTE | 2018-09-12 08:24 | PCM.PN.PUL ---
Patient Problems: Active and Suspected Problems (Last Reviewed 07/25/18 @ 08:52 by Fredo Rodriguez MD) MSSA bacteremia (Acute) Osteomyelitis (Acute) Subjective: Patient did okay overnight. Patient reports subjective improvement in overall condition. Patient still having an intermittent cough and requiring supplemental oxygen to maintain saturations. Patient denies any chest pain at this time. Patient currently on clears secondary to a possible amputation of his toe later today. Objective: Echocardiogram shows an EF of 65% with diastolic dysfunction and a possible aortic valve vegetation. - Physical Exam General: Alert, Oriented x3, Cooperative, No apparent distress, - - No conversational dyspnea. HEENT: Atraumatic, PERRLA, EOMI, Normocephalic, - - No scleral icterus or injection noted. Nasal cannula in place. Oral: Moist Mucosa, No Gingival or Mucosal Lesions/ Ulcerations Neck: Supple, No JVD, No Nodes, Trachea Midline Lungs: No rhonchi, No wheeze, No rales, Diminished, - - Symmetric expansion. No dullness to percussion. Cardiovascular: Regular rate, Regular Rhythm, Normal S1, Normal S2, Murmur - Grade 2 out of 6 diastolic murmur at the right sternal border, No rub noted, No Gallop Abdomen: Bowel Sounds Present, Soft, Non Tender, Non-Distended, Obese Extremities: No clubbing, No cyanosis, No edema Skin: - - No significant change compared to previous Musculoskeletal: No Tenderness to Palpation of Joints or Extremities Lymphatic: No Cervical, Supraclavicular, or Inguinal Adenopathy Neurological: Cranial nerves II-XII grossly intact, Neuro grossly intact, Motor Exam 5/5 strength throughout Psych/Mental Status: Alert and oriented to time, place, person, mood and affect Vital Signs Temp Pulse Resp BP Pulse Ox 36.8 C 86 20 H 155/83 H 92 09/12/18 03:00 09/12/18 03:00 09/12/18 03:00 09/12/18 03:00 09/12/18 03:00 Oxygen Flow Rate (L/min) 3.5 Oxygen Delivery Method Nasal Cannula Weight: 100 kg Body Mass Index (BMI) 29.0 Intake and Output for Last 24 Hours 09/10/18 09/11/18 09/12/18 23:59 23:59 23:59 Intake Total 2729 / 2729 4497 / 4497 2906 / 2906 Output Total 880 / 880 1925 / 1925 500 / 500 Balance 1849 / 1849 2572 / 2572 2406 / 2406 Microbiology Past 72 Hours 09/10/18 08:50 Blood Culture - Preliminary Blood Culture (Wb) - Right Forearm Staphylococcus aureus 09/10/18 08:54 Blood Culture - Preliminary Blood Culture (Wb) - Anticubital Left Staphylococcus aureus 09/09/18 11:45 Blood Culture - Final Blood Culture (Wb) - Anticubital Right Staphylococcus aureus 09/09/18 11:35 Bacteria Detection (PCR) - Final Blood Culture (Wb) - Left Forearm Staphylococcus aureus Blood Culture - Final Staphylococcus aureus 09/09/18 13:15 Legionella Antigen - Final Urine, Clean Catch 09/09/18 13:15 Streptococcus pneumoniae Antigen (M - Final Urine, Clean Catch Laboratory Tests Past 24 Hrs 09/11/18 09/12/18 09/12/18 Unknown 05:25 05:25 WBC 8.2 RBC 3.28 L Hgb 10.0 L Hct 28.5 L MCV 86.9 MCH 30.5 MCHC 35.1 RDW 13.9 RDW Differential 44.3 H Plt Count 216 MPV 9.4 Immature Gran % (Auto) 0.400 Neut % (Auto) 72.5 H Lymph % (Auto) 10.0 L [place] % (Auto) 15.6 H Eos % (Auto) 1.3 Baso % (Auto) 0.2 Absolute Neuts (auto) 6.0 Absolute Lymphs (auto) 0.82 L Total Counted Not Reportable PT INR APTT Sodium 131 L Potassium 3.9 Chloride 98 Carbon Dioxide 23.0 Anion Gap 10 BUN 29 H Creatinine 1.45 H Estim Creat Clear Calc 61.23 Est GFR (MDRD) Af Amer 64 Est GFR (MDRD) Non-Af 53 L BUN/Creatinine Ratio 20.0 Glucose 126 H Hemoglobin A1c Calcium 8.0 L S.aureus Protein A PCR POSITIVE H MRSA (PCR) Negative 09/12/18 09/12/18 05:25 05:25 WBC RBC Hgb Hct MCV MCH MCHC RDW RDW Differential Plt Count MPV Immature Gran % (Auto) Neut % (Auto) Lymph % (Auto) [place] % (Auto) Eos % (Auto) Baso % (Auto) Absolute Neuts (auto) Absolute Lymphs (auto) Total Counted PT 14.9 INR 1.2 APTT 51.5 H Sodium Potassium Chloride Carbon Dioxide Anion Gap BUN Creatinine Estim Creat Clear Calc Est GFR (MDRD) Af Amer Est GFR (MDRD) Non-Af BUN/Creatinine Ratio Glucose Hemoglobin A1c 6.0 Calcium S.aureus Protein A PCR MRSA (PCR) POC Glucose 09/12/18 09/11/18 09/11/18 06:54 23:18 16:52 POC Glucose 137 H 182 H 242 H 09/11/18 11:49 POC Glucose 162 H Clinical Impression(s) from Imaging Studies Lower Extremity MRI 09/11/18 07:27 IMPRESSION: Signal alteration of the third distal phalanx suggestive of osteomyelitis. Edema in the subcutis adipose space without demonstrated soft tissue abscess. 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 Mild edema in the intrinsic muscles of the forefoot suggestive of myositis. Intermetatarsal neuroma of the second webspace. Electronically Signed: Arvind Frey MD at 10:13 EDT Tel , Service support , Lumbar Spine X-Ray 09/11/18 10:20 IMPRESSION: Degenerative changes of the spine, as detailed above. Electronically Signed: Emir Kwan, at 15:30 EDT , Service support , Medical Necessity - Tobacco Use Smoking Status: Never smoker Tobacco Use: Non-smoker Assessment/Plan All Active Problems (Last Reviewed 07/25/18 @ 08:52 by Fredo Rodriguez MD) MSSA bacteremia (Acute) Osteomyelitis (Acute) RECOMMENDATIONS: 1. Monitor oxygen status closely 2. Continue to monitor latest blood cultures 3. Aggressive incentive spirometer 4. Surgical amputation of toe later today 5. Outpatient dental evaluation 6. Saw cardiology for possible BRODY IMPRESSIONS: 1. Severe sepsis secondary to MSSA Nidus appears to be patient's toe. Repeat blood cultures have no growth to date, which is encouraging. Patient is to have surgery to amputate toe later today per his report. Echocardiogram did show a possible vegetation of aortic valve. Will consult cardiology to see if the BRODY is necessary or whether transthoracic echo is consistent with endocarditis. Patient's oxygen status has remained stable. Continue to encourage incentive spirometer.. 2. Coronary artery disease status post recent CABG/diabetes mellitus type 2/hypertension/chronic diastolic CHF Complicates care, management, recovery and prognosis. Do not believe patient requires any steroids at this time. Okay to reinitiate baseline Lasix therapy from my perspective given blood cultures not coming back as positive yet. Agree with sliding scale insulin for blood sugars. Code Visit Inpatient E&M: 78305 Subs Hosp L2
--- NOTE | 2018-09-12 08:29 | PN_ITS ---
Patient Problems: Active and Suspected Problems (Last Reviewed 07/25/18 @ 08:52 by Fredo Rodriguez MD) MSSA bacteremia (Acute) Osteomyelitis (Acute) Subjective: Patient did okay overnight. Patient reports subjective improvement in overall condition. Patient still having an intermittent cough and requiring supplemental oxygen to maintain saturations. Patient denies any chest pain at this time. Patient currently on clears secondary to a possible amputation of his toe later today. Objective: Echocardiogram shows an EF of 65% with diastolic dysfunction and a possible aortic valve vegetation. - Physical Exam General: Alert, Oriented x3, Cooperative, No apparent distress, - - No conversational dyspnea. HEENT: Atraumatic, PERRLA, EOMI, Normocephalic, - - No scleral icterus or injection noted. Nasal cannula in place. Oral: Moist Mucosa, No Gingival or Mucosal Lesions/ Ulcerations Neck: Supple, No JVD, No Nodes, Trachea Midline Lungs: No rhonchi, No wheeze, No rales, Diminished, - - Symmetric expansion. No dullness to percussion. Cardiovascular: Regular rate, Regular Rhythm, Normal S1, Normal S2, Murmur - Grade 2 out of 6 diastolic murmur at the right sternal border, No rub noted, No Gallop Abdomen: Bowel Sounds Present, Soft, Non Tender, Non-Distended, Obese Extremities: No clubbing, No cyanosis, No edema Skin: - - No significant change compared to previous Musculoskeletal: No Tenderness to Palpation of Joints or Extremities Lymphatic: No Cervical, Supraclavicular, or Inguinal Adenopathy Neurological: Cranial nerves II-XII grossly intact, Neuro grossly intact, Motor Exam 5/5 strength throughout Psych/Mental Status: Alert and oriented to time, place, person, mood and affect Vital Signs Temp Pulse Resp BP Pulse Ox 36.8 C 86 20 H 155/83 H 92 09/12/18 03:00 09/12/18 03:00 09/12/18 03:00 09/12/18 03:00 09/12/18 03:00 Oxygen Flow Rate (L/min) 3.5 Oxygen Delivery Method Nasal Cannula Weight: 100 kg Body Mass Index (BMI) 29.0 Intake and Output for Last 24 Hours 09/10/18 09/11/18 09/12/18 23:59 23:59 23:59 Intake Total 2729 / 2729 4497 / 4497 2906 / 2906 Output Total 880 / 880 1925 / 1925 500 / 500 Balance 1849 / 1849 2572 / 2572 2406 / 2406 Microbiology Past 72 Hours 09/10/18 08:50 Blood Culture - Preliminary Blood Culture (Wb) - Right Forearm Staphylococcus aureus 09/10/18 08:54 Blood Culture - Preliminary Blood Culture (Wb) - Anticubital Left Staphylococcus aureus 09/09/18 11:45 Blood Culture - Final Blood Culture (Wb) - Anticubital Right Staphylococcus aureus 09/09/18 11:35 Bacteria Detection (PCR) - Final Blood Culture (Wb) - Left Forearm Staphylococcus aureus Blood Culture - Final Staphylococcus aureus 09/09/18 13:15 Legionella Antigen - Final Urine, Clean Catch 09/09/18 13:15 Streptococcus pneumoniae Antigen (M - Final Urine, Clean Catch Laboratory Tests Past 24 Hrs 09/11/18 09/12/18 09/12/18 Unknown 05:25 05:25 WBC 8.2 RBC 3.28 L Hgb 10.0 L Hct 28.5 L MCV 86.9 MCH 30.5 MCHC 35.1 RDW 13.9 RDW Differential 44.3 H Plt Count 216 MPV 9.4 Immature Gran % (Auto) 0.400 Neut % (Auto) 72.5 H Lymph % (Auto) 10.0 L [place] % (Auto) 15.6 H Eos % (Auto) 1.3 Baso % (Auto) 0.2 Absolute Neuts (auto) 6.0 Absolute Lymphs (auto) 0.82 L Total Counted Not Reportable PT INR APTT Sodium 131 L Potassium 3.9 Chloride 98 Carbon Dioxide 23.0 Anion Gap 10 BUN 29 H Creatinine 1.45 H Estim Creat Clear Calc 61.23 Est GFR (MDRD) Af Amer 64 Est GFR (MDRD) Non-Af 53 L BUN/Creatinine Ratio 20.0 Glucose 126 H Hemoglobin A1c Calcium 8.0 L S.aureus Protein A PCR POSITIVE H MRSA (PCR) Negative 09/12/18 09/12/18 05:25 05:25 WBC RBC Hgb Hct MCV MCH MCHC RDW RDW Differential Plt Count MPV Immature Gran % (Auto) Neut % (Auto) Lymph % (Auto) [place] % (Auto) Eos % (Auto) Baso % (Auto) Absolute Neuts (auto) Absolute Lymphs (auto) Total Counted PT 14.9 INR 1.2 APTT 51.5 H Sodium Potassium Chloride Carbon Dioxide Anion Gap BUN Creatinine Estim Creat Clear Calc Est GFR (MDRD) Af Amer Est GFR (MDRD) Non-Af BUN/Creatinine Ratio Glucose Hemoglobin A1c 6.0 Calcium S.aureus Protein A PCR MRSA (PCR) POC Glucose 09/12/18 09/11/18 09/11/18 06:54 23:18 16:52 POC Glucose 137 H 182 H 242 H 09/11/18 11:49 POC Glucose 162 H Clinical Impression(s) from Imaging Studies Lower Extremity MRI 09/11/18 07:27 IMPRESSION: Signal alteration of the third distal phalanx suggestive of osteomyelitis. Edema in the subcutis adipose space without demonstrated soft tissue abscess. 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 Mild edema in the intrinsic muscles of the forefoot suggestive of myositis. Intermetatarsal neuroma of the second webspace. Electronically Signed: Arvind Frey MD at 10:13 EDT Tel , Service support , Lumbar Spine X-Ray 09/11/18 10:20 IMPRESSION: Degenerative changes of the spine, as detailed above. Electronically Signed: Emir Kwan, at 15:30 EDT , Service support , Medical Necessity - Tobacco Use Smoking Status: Never smoker Tobacco Use: Non-smoker Assessment/Plan All Active Problems (Last Reviewed 07/25/18 @ 08:52 by Fredo Rodriguez MD) MSSA bacteremia (Acute) Osteomyelitis (Acute) RECOMMENDATIONS: 1. Monitor oxygen status closely 2. Continue to monitor latest blood cultures 3. Aggressive incentive spirometer 4. Surgical amputation of toe later today 5. Outpatient dental evaluation 6. Saw cardiology for possible BRODY IMPRESSIONS: 1. Severe sepsis secondary to MSSA Nidus appears to be patient's toe. Repeat blood cultures have no growth to date, which is encouraging. Patient is to have surgery to amputate toe later today per his report. Echocardiogram did show a possible vegetation of aortic valve. Will consult cardiology to see if the BRODY is necessary or whether transthoracic echo is consistent with endocarditis. Patient's oxygen status has remained stable. Continue to encourage incentive spirometer.. 2. Coronary artery disease status post recent CABG/diabetes mellitus type 2/hypertension/chronic diastolic CHF Complicates care, management, recovery and prognosis. Do not believe patient requires any steroids at this time. Okay to reinitiate baseline Lasix therapy from my perspective given blood cultures not coming back as positive yet. Agree with sliding scale insulin for blood sugars. Code Visit Inpatient E&M: 02618 Subs Hosp L2
[2018-09-12 11:20] LABS: Bedside Glucose 133 mg/dL (70-110)
--- NOTE | 2018-09-12 13:22 | PN.ID_ITS ---
Patient Problems: Active and Suspected Problems (Last Reviewed 07/25/18 @ 08:52 by Fredo Rodriguez MD) MSSA bacteremia (Acute) Osteomyelitis (Acute) Subjective: Feeling better, no fever, no n/v/d, no rash with iv abx. - Physical Exam General: Alert, Cooperative, No apparent distress Lungs: Clear to auscultation, Normal air movement Cardiovascular: Regular rate, Regular Rhythm, Murmur Abdomen: Soft, Non Tender, Non-Distended Skin: Ulcer/ Wound - L 3rd toe Vital Signs Temp Pulse Resp BP Pulse Ox 97.6 F L 87 18 161/81 H 95 09/12/18 09:31 09/12/18 09:31 09/12/18 09:31 09/12/18 09:31 09/12/18 09:31 Oxygen Flow Rate (L/min) 2 Oxygen Delivery Method Nasal Cannula Weight: 100 kg Body Mass Index (BMI) 29.0 Intake and Output for Last 24 Hours 09/10/18 09/11/18 09/12/18 23:59 23:59 23:59 Intake Total 2729 / 2729 4497 / 4497 2953 / 2953 Output Total 880 / 880 1925 / 1925 500 / 500 Balance 1849 / 1849 2572 / 2572 2453 / 2453 Microbiology Past 72 Hours 09/11/18 Unknown Gram Stain - Final Wound - Toe Wound Culture - Preliminary Staphylococcus aureus 09/10/18 08:50 Blood Culture - Preliminary Blood Culture (Wb) - Right Forearm Staphylococcus aureus 09/10/18 08:54 Blood Culture - Preliminary Blood Culture (Wb) - Anticubital Left Staphylococcus aureus 09/09/18 11:45 Blood Culture - Final Blood Culture (Wb) - Anticubital Right Staphylococcus aureus 09/09/18 11:35 Bacteria Detection (PCR) - Final Blood Culture (Wb) - Left Forearm Staphylococcus aureus Blood Culture - Final Staphylococcus aureus 09/09/18 13:15 Legionella Antigen - Final Urine, Clean Catch 09/09/18 13:15 Streptococcus pneumoniae Antigen (M - Final Urine, Clean Catch Laboratory Tests Past 24 Hrs 09/11/18 09/12/18 09/12/18 Unknown 05:25 05:25 WBC 8.2 RBC 3.28 L Hgb 10.0 L Hct 28.5 L MCV 86.9 MCH 30.5 MCHC 35.1 RDW 13.9 RDW Differential 44.3 H Plt Count 216 MPV 9.4 Immature Gran % (Auto) 0.400 Neut % (Auto) 72.5 H Lymph % (Auto) 10.0 L [place] % (Auto) 15.6 H Eos % (Auto) 1.3 Baso % (Auto) 0.2 Absolute Neuts (auto) 6.0 Absolute Lymphs (auto) 0.82 L Total Counted Not Reportable PT INR APTT Sodium 131 L Potassium 3.9 Chloride 98 Carbon Dioxide 23.0 Anion Gap 10 BUN 29 H Creatinine 1.45 H Estim Creat Clear Calc 61.23 Est GFR (MDRD) Af Amer 64 Est GFR (MDRD) Non-Af 53 L BUN/Creatinine Ratio 20.0 Glucose 126 H Hemoglobin A1c Calcium 8.0 L S.aureus Protein A PCR POSITIVE H MRSA (PCR) Negative 09/12/18 09/12/18 05:25 05:25 WBC RBC Hgb Hct MCV MCH MCHC RDW RDW Differential Plt Count MPV Immature Gran % (Auto) Neut % (Auto) Lymph % (Auto) [place] % (Auto) Eos % (Auto) Baso % (Auto) Absolute Neuts (auto) Absolute Lymphs (auto) Total Counted PT 14.9 INR 1.2 APTT 51.5 H Sodium Potassium Chloride Carbon Dioxide Anion Gap BUN Creatinine Estim Creat Clear Calc Est GFR (MDRD) Af Amer Est GFR (MDRD) Non-Af BUN/Creatinine Ratio Glucose Hemoglobin A1c 6.0 Calcium S.aureus Protein A PCR MRSA (PCR) POC Glucose 09/12/18 09/12/18 09/11/18 11:11 06:54 23:18 POC Glucose 133 H 137 H 182 H 09/11/18 16:52 POC Glucose 242 H Medical Necessity - Tobacco Use Smoking Status: Never smoker Tobacco Use: Non-smoker Route of nutrition/ use of supplements: [] Nutritional Intake: [] IV Site: [] Zhu Catheter: [] - Assessment/Plan Antibiotics: [] Assessment/Plan: [] sepsis (fever, tachycardia, leukocytosis) due to mssa bacteremia from L 3rd toe osteo. Heart murmur raises concern for endocarditis. Small AV veg seen on TTE. Podiatry following, wound cx with staph, MRI showed osteo. Tolerating cefazolin with no issue so far, will continue. Repeat bcx today. Plan will be for picc line once bcx neg x72 hours, then d/c on cefazolin for 6 week course. Will follow
[2018-09-12 13:41] LABS: Bedside Glucose 133 mg/dL (70-110)
--- NOTE | 2018-09-12 14:40 | PCM.PN.HOSP ---
Patient Problems: Active and Suspected Problems (Last Reviewed 07/25/18 @ 08:52 by Fredo Rodriguez MD) MSSA bacteremia (Acute) Osteomyelitis (Acute) Subjective: No new complaints. Vitals/I&O's: Vital Signs Temp Pulse Resp BP Pulse Ox 37.6 C H 98 18 178/87 H 95 09/12/18 13:27 09/12/18 13:27 09/12/18 13:27 09/12/18 13:27 09/12/18 13:27 Oxygen Flow Rate (L/min) 2 Oxygen Delivery Method Nasal Cannula Weight: 100 kg Body Mass Index (BMI) 29.0 Intake and Output for Last 24 Hours 09/10/18 09/11/18 09/12/18 23:59 23:59 23:59 Intake Total 2729 / 2729 4497 / 4497 2953 / 2953 Output Total 880 / 880 1925 / 1925 500 / 500 Balance 1849 / 1849 2572 / 2572 2453 / 2453 General: Alert, No apparent distress HEENT: Atraumatic, Normocephalic Oral: Moist Mucosa, No Gingival or Mucosal Lesions/ Ulcerations Neck: No Nodes, Thyroid Normal Size and Texture Lungs: Clear to auscultation, Normal air movement, No rhonchi, No wheeze Cardiovascular: Regular rate, Regular Rhythm, Normal S1, Normal S2, No murmurs Abdomen: Bowel Sounds Present, Soft, Non Tender, Non-Distended Extremities: No edema, No Calf Tenderness Microbiology Past 72 Hours 09/11/18 Unknown Wound - Toe Gram Stain - Final 09/11/18 Unknown Wound - Toe Wound Culture - Preliminary Staphylococcus aureus 09/10/18 08:50 Blood Culture (Wb) - Right Forearm Blood Culture - Preliminary Staphylococcus aureus 09/10/18 08:54 Blood Culture (Wb) - Anticubital Left Blood Culture - Preliminary Staphylococcus aureus 09/09/18 11:45 Blood Culture (Wb) - Anticubital Right Blood Culture - Final Staphylococcus aureus 09/09/18 11:35 Blood Culture (Wb) - Left Forearm Bacteria Detection (PCR) - Final Staphylococcus aureus 09/09/18 11:35 Blood Culture (Wb) - Left Forearm Blood Culture - Final Staphylococcus aureus 09/09/18 13:15 Urine, Clean Catch Legionella Antigen - Final 09/09/18 13:15 Urine, Clean Catch Streptococcus pneumoniae Antigen (M - Final Laboratory Results 09/11/18 16:52: POC Glucose 242 H 09/11/18 23:18: POC Glucose 182 H 09/11/18 : S.aureus Protein A PCR POSITIVE H, MRSA (PCR) Negative 09/12/18 05:25: WBC 8.2, RBC 3.28 L, Hgb 10.0 L, Hct 28.5 L, MCV 86.9, MCH 30.5, MCHC 35.1, RDW 13.9, RDW Differential 44.3 H, Plt Count 216, MPV 9.4, Immature Gran % (Auto) 0.400, Neut % (Auto) 72.5 H, Lymph % (Auto) 10.0 L, [place] % (Auto) 15.6 H, Eos % (Auto) 1.3, Baso % (Auto) 0.2, Absolute Neuts (auto) 6.0, Absolute Lymphs (auto) 0.82 L, Total Counted Not Reportable 09/12/18 05:25: Sodium 131 L, Potassium 3.9, Chloride 98, Carbon Dioxide 23.0, Anion Gap 10, BUN 29 H, Creatinine 1.45 H, Estim Creat Clear Calc 61.23, Est GFR (MDRD) Af Amer 64, Est GFR (MDRD) Non-Af 53 L, BUN/Creatinine Ratio 20.0, Glucose 126 H, Calcium 8.0 L 09/12/18 05:25: PT 14.9, INR 1.2, APTT 51.5 H 09/12/18 05:25: Hemoglobin A1c 6.0 09/12/18 06:54: POC Glucose 137 H 09/12/18 11:11: POC Glucose 133 H 09/12/18 13:31: POC Glucose 133 H Current Medications Acetaminophen (Tylenol) 1,000 mg PO Q8 [facility] Last Admin: 09/12/18 14:15 Dose: Not Given Albuterol Sulfate (Ventolin Aerosols) 2.5 mg INHALATION Q2H PRN PRN Reason: SOB &/OR WHEEZING Last Admin: 09/11/18 04:38 Dose: 2.5 mg Albuterol/Ipratropium (Duoneb) 3 ml INHALATION Q4HWA.RT [facility] Last Admin: 09/12/18 11:50 Dose: 3 ml Amlodipine Besylate (Norvasc) 10 mg PO DAILY [facility] Last Admin: 09/12/18 11:03 Dose: Not Given Aspirin (Ecotrin) 81 mg PO DAILY@0800 [facility] Last Admin: 09/12/18 08:00 Dose: Not Given Atorvastatin Calcium (Lipitor) 80 mg PO QHS [facility] Last Admin: 09/11/18 23:03 Dose: 80 mg Cyclobenzaprine HCl (Cyclobenzaprine Hcl) 5 mg PO TID [facility] Last Admin: 09/12/18 14:14 Dose: Not Given Dextrose (D50w Syringe) 0 gm IV X1 PRN; Protocol PRN Reason: Hypoglycemia Docusate Sodium (Colace) 200 mg PO BID PRN PRN PRN Reason: Constipation Glucagon () 1 mg IM .X1 PRN PRN Reason: Hypoglycemia Guaifenesin (Mucinex) 1,200 mg PO BID PRN PRN PRN Reason: COUGH Heparin Sodium (Porcine) (Heparin Na) 5,000 unit SC Q8 [facility] Last Admin: 09/12/18 14:14 Dose: Not Given Hydroxyzine Pamoate (Vistaril Pamoate Capsule) 50 mg PO Q6H PRN PRN Reason: ANXIETY Last Admin: 09/11/18 08:00 Dose: 50 mg Cefazolin Sodium 2 gm/ Sodium (Chloride) 110 mls @ 150 mls/hr IV Q8 [facility] Last Admin: 09/12/18 14:14 Dose: 150 mls/hr Insulin Human Lispro (Humalog Kwikpen (Bkc)) 0 unit SQ ACHS [facility]; Protocol Last Admin: 09/12/18 11:54 Dose: Not Given Lisinopril (Zestril) 20 mg PO BID [facility] Last Admin: 09/12/18 11:04 Dose: Not Given Melatonin (Melatonin) 3 mg PO QHS PRN PRN Reason: INSOMNIA Last Admin: 09/10/18 21:52 Dose: 3 mg Nitroglycerin (Nitrostat) 0.4 mg SUBLINGUAL Q5M PRN PRN Reason: CARDIAC/CHEST PAIN Ondansetron HCl (Zofran) 4 mg IV Q8H PRN PRN PRN Reason: NAUSEA/VOMITING Oxycodone HCl (Oxyir) 5 mg PO Q4H PRN PRN PRN Reason: SEVERE PAIN (6-10/10) Last Admin: 09/12/18 07:58 Dose: 5 mg Pantoprazole Sodium (Protonix) 40 mg PO DAILY [facility] Last Admin: 09/12/18 11:03 Dose: Not Given Sodium Chloride () 5 - 15 ml IV UD PRN PRN Reason: SALINE FLUSH Last Admin: 09/09/18 22:07 Dose: 10 ml Medical Necessity - Tobacco Use Smoking Status: Never smoker Tobacco Use: Non-smoker Assessment/Plan All Active Problems (Last Reviewed 07/25/18 @ 08:52 by Fredo Rodriguez MD) MSSA bacteremia (Acute) Osteomyelitis (Acute) 1. Sepsis POA 2/2 bacteremia and osteomyelitis +/- endocarditis no pneumonia on CT--ruled out improving 2. Bacteremia: S. aureus likely from OM on cefazolin repeat BCx 09/10 still +, repeat again 09/11 2/2 3rd toe osteomyelitis +/- endocarditis DW Dr. Yuan, treat empirically for endocarditis with cefazolin for 6 weeks 3. Left 3rd toe osteomyelitis likely source of #[address] Barnett of podiatry DW patient about MRI findings and mentioned that he may require an amputation 4. possible endocarditis mobile mass on right coronary cusp cefazolin for 6 weeks recheck echo in 4 weeks 5. RAFA improving may be due to IV contrast from CTA (doubt due to vancomycin as it was given during the blood draw for the lab) 6. hyponatremia improved review of medications shows no obvious culprit monitor 7. Acute hypoxic respiratory insufficiency still requiring oxygen no PNA, PE monitor wean oxygen as tolerated 8. VTE prophy: SQ heparin. Code Visit Inpatient E&M: 74952 Subs Hosp L2
--- NOTE | 2018-09-12 14:44 | PN_ITS ---
Patient Problems: Active and Suspected Problems (Last Reviewed 07/25/18 @ 08:52 by Fredo Rodriguez MD) MSSA bacteremia (Acute) Osteomyelitis (Acute) Subjective: No new complaints. Vitals/I&O's: Vital Signs Temp Pulse Resp BP Pulse Ox 37.6 C H 98 18 178/87 H 95 09/12/18 13:27 09/12/18 13:27 09/12/18 13:27 09/12/18 13:27 09/12/18 13:27 Oxygen Flow Rate (L/min) 2 Oxygen Delivery Method Nasal Cannula Weight: 100 kg Body Mass Index (BMI) 29.0 Intake and Output for Last 24 Hours 09/10/18 09/11/18 09/12/18 23:59 23:59 23:59 Intake Total 2729 / 2729 4497 / 4497 2953 / 2953 Output Total 880 / 880 1925 / 1925 500 / 500 Balance 1849 / 1849 2572 / 2572 2453 / 2453 General: Alert, No apparent distress HEENT: Atraumatic, Normocephalic Oral: Moist Mucosa, No Gingival or Mucosal Lesions/ Ulcerations Neck: No Nodes, Thyroid Normal Size and Texture Lungs: Clear to auscultation, Normal air movement, No rhonchi, No wheeze Cardiovascular: Regular rate, Regular Rhythm, Normal S1, Normal S2, No murmurs Abdomen: Bowel Sounds Present, Soft, Non Tender, Non-Distended Extremities: No edema, No Calf Tenderness Microbiology Past 72 Hours 09/11/18 Unknown Wound - Toe Gram Stain - Final 09/11/18 Unknown Wound - Toe Wound Culture - Preliminary Staphylococcus aureus 09/10/18 08:50 Blood Culture (Wb) - Right Forearm Blood Culture - Preliminary Staphylococcus aureus 09/10/18 08:54 Blood Culture (Wb) - Anticubital Left Blood Culture - Preliminary Staphylococcus aureus 09/09/18 11:45 Blood Culture (Wb) - Anticubital Right Blood Culture - Final Staphylococcus aureus 09/09/18 11:35 Blood Culture (Wb) - Left Forearm Bacteria Detection (PCR) - Final Staphylococcus aureus 09/09/18 11:35 Blood Culture (Wb) - Left Forearm Blood Culture - Final Staphylococcus aureus 09/09/18 13:15 Urine, Clean Catch Legionella Antigen - Final 09/09/18 13:15 Urine, Clean Catch Streptococcus pneumoniae Antigen (M - Final Laboratory Results 09/11/18 16:52: POC Glucose 242 H 09/11/18 23:18: POC Glucose 182 H 09/11/18 : S.aureus Protein A PCR POSITIVE H, MRSA (PCR) Negative 09/12/18 05:25: WBC 8.2, RBC 3.28 L, Hgb 10.0 L, Hct 28.5 L, MCV 86.9, MCH 30.5, MCHC 35.1, RDW 13.9, RDW Differential 44.3 H, Plt Count 216, MPV 9.4, Immature Gran % (Auto) 0.400, Neut % (Auto) 72.5 H, Lymph % (Auto) 10.0 L, [place] % (Auto) 15.6 H, Eos % (Auto) 1.3, Baso % (Auto) 0.2, Absolute Neuts (auto) 6.0, Absolute Lymphs (auto) 0.82 L, Total Counted Not Reportable 09/12/18 05:25: Sodium 131 L, Potassium 3.9, Chloride 98, Carbon Dioxide 23.0, Anion Gap 10, BUN 29 H, Creatinine 1.45 H, Estim Creat Clear Calc 61.23, Est GFR (MDRD) Af Amer 64, Est GFR (MDRD) Non-Af 53 L, BUN/Creatinine Ratio 20.0, Glucose 126 H, Calcium 8.0 L 09/12/18 05:25: PT 14.9, INR 1.2, APTT 51.5 H 09/12/18 05:25: Hemoglobin A1c 6.0 09/12/18 06:54: POC Glucose 137 H 09/12/18 11:11: POC Glucose 133 H 09/12/18 13:31: POC Glucose 133 H Current Medications Acetaminophen (Tylenol) 1,000 mg PO Q8 [facility] Last Admin: 09/12/18 14:15 Dose: Not Given Albuterol Sulfate (Ventolin Aerosols) 2.5 mg INHALATION Q2H PRN PRN Reason: SOB &/OR WHEEZING Last Admin: 09/11/18 04:38 Dose: 2.5 mg Albuterol/Ipratropium (Duoneb) 3 ml INHALATION Q4HWA.RT [facility] Last Admin: 09/12/18 11:50 Dose: 3 ml Amlodipine Besylate (Norvasc) 10 mg PO DAILY [facility] Last Admin: 09/12/18 11:03 Dose: Not Given Aspirin (Ecotrin) 81 mg PO DAILY@0800 [facility] Last Admin: 09/12/18 08:00 Dose: Not Given Atorvastatin Calcium (Lipitor) 80 mg PO QHS [facility] Last Admin: 09/11/18 23:03 Dose: 80 mg Cyclobenzaprine HCl (Cyclobenzaprine Hcl) 5 mg PO TID [facility] Last Admin: 09/12/18 14:14 Dose: Not Given Dextrose (D50w Syringe) 0 gm IV X1 PRN; Protocol PRN Reason: Hypoglycemia Docusate Sodium (Colace) 200 mg PO BID PRN PRN PRN Reason: Constipation Glucagon () 1 mg IM .X1 PRN PRN Reason: Hypoglycemia Guaifenesin (Mucinex) 1,200 mg PO BID PRN PRN PRN Reason: COUGH Heparin Sodium (Porcine) (Heparin Na) 5,000 unit SC Q8 [facility] Last Admin: 09/12/18 14:14 Dose: Not Given Hydroxyzine Pamoate (Vistaril Pamoate Capsule) 50 mg PO Q6H PRN PRN Reason: ANXIETY Last Admin: 09/11/18 08:00 Dose: 50 mg Cefazolin Sodium 2 gm/ Sodium (Chloride) 110 mls @ 150 mls/hr IV Q8 [facility] Last Admin: 09/12/18 14:14 Dose: 150 mls/hr Insulin Human Lispro (Humalog Kwikpen (Bkc)) 0 unit SQ ACHS [facility]; Protocol Last Admin: 09/12/18 11:54 Dose: Not Given Lisinopril (Zestril) 20 mg PO BID [facility] Last Admin: 09/12/18 11:04 Dose: Not Given Melatonin (Melatonin) 3 mg PO QHS PRN PRN Reason: INSOMNIA Last Admin: 09/10/18 21:52 Dose: 3 mg Nitroglycerin (Nitrostat) 0.4 mg SUBLINGUAL Q5M PRN PRN Reason: CARDIAC/CHEST PAIN Ondansetron HCl (Zofran) 4 mg IV Q8H PRN PRN PRN Reason: NAUSEA/VOMITING Oxycodone HCl (Oxyir) 5 mg PO Q4H PRN PRN PRN Reason: SEVERE PAIN (6-10/10) Last Admin: 09/12/18 07:58 Dose: 5 mg Pantoprazole Sodium (Protonix) 40 mg PO DAILY [facility] Last Admin: 09/12/18 11:03 Dose: Not Given Sodium Chloride () 5 - 15 ml IV UD PRN PRN Reason: SALINE FLUSH Last Admin: 09/09/18 22:07 Dose: 10 ml Medical Necessity - Tobacco Use Smoking Status: Never smoker Tobacco Use: Non-smoker Assessment/Plan All Active Problems (Last Reviewed 07/25/18 @ 08:52 by Fredo Rdoriguez MD) MSSA bacteremia (Acute) Osteomyelitis (Acute) 1. Sepsis * POA * 2/2 bacteremia and osteomyelitis +/- endocarditis * no pneumonia on CT--ruled out * improving 2. Bacteremia: * S. aureus likely from OM * on cefazolin * repeat BCx 09/10 still +, repeat again 09/11 * 2/2 3rd toe osteomyelitis +/- endocarditis * DW Dr. Yuan, treat empirically for endocarditis with cefazolin for 6 weeks 3. Left 3rd toe osteomyelitis * likely source of #2 * DW Dr. Barnett of podiatry * DW patient about MRI findings and mentioned that he may require an amputation 4. possible endocarditis * mobile mass on right coronary cusp * cefazolin for 6 weeks * recheck echo in 4 weeks 5. RAFA * improving * may be due to IV contrast from CTA (doubt due to vancomycin as it was given during the blood draw for the lab) 6. hyponatremia * improved * review of medications shows no obvious culprit * monitor 7. Acute hypoxic respiratory insufficiency * still requiring oxygen * no PNA, PE * monitor * wean oxygen as tolerated 8. VTE prophy: SQ heparin. Code Visit Inpatient E&M: 71760 Subs Hosp L2
--- NOTE | 2018-09-12 15:15 | RAD_ITS ---
STUDY: X-RAY - LEFT FOOT CLINICAL: Male, 58 years old. There is amputation TECHNIQUE: 4 view(s) of the foot. COMPARISON: None. FINDINGS: Intraoperative spot fluoroscopy images demonstrate partial amputation of the distal third digit. RAD/Foot 2 Views IMPRESSION: As above Electronically Signed: Jarred Grant DO at 18:13 EDT Tel , Service support ,
[2018-09-12] MEDS: Bupivacaine Mpf 0.5% 30 ML VIAL (15:49)
--- NOTE | 2018-09-12 16:38 | OP.PCM_ITS ---
Problem List (1) Hammer toe of left foot Status: Chronic (2) Osteomyelitis Status: Acute (3) Chronic ulcer of left foot with fat layer exposed Status: Chronic (4) MSSA bacteremia Status: Acute Report of Operation Date of Procedure: 09/10/18 Pre-Operative Diagnosis: Osteomyelitis with chronic ulcer left third toe. Hammer digit syndrome left third toe Post-Operative Diagnosis: Osteomyelitis with chronic ulcer left third toe. Hammer digit syndrome left third toe Surgery/Procedure Performed:: Partial left third toe amputation Description of Surgical Findings:: Hemostasis: Left well-padded ankle tourniquet pneumatic, 250 mmHg, 11 minutes Materials: 3-0 Vicryl, 2-0 and 3-0 Prolene Specimens were sent Findings: After removal of distal phalanx and toe pulp, there was no purulence, necrosis, or dysvascular tissue identified Complications: None The patient tolerated the procedure and anesthesia well. He was transported to PACU vital signs stable vascular status intact to left lower extremity. He will be transferred back to the regular medical surgical floor for continued management of recently resolved bacteremia and other comorbidities. Postoperative x-ray was reviewed while in the operating room demonstrating adequate resection of the partial amputated toe at the middle phalanx level without acute injuries. Postoperative orders were entered electronically. He will continue on IV antibiotics on the medical floor. I will continue to follow him closely while in house. 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 Soft tissue and bone left third toe sent to microbiology for aerobic, anaerobic, acid-fast, fungal. Clearance fragment bone left third toe sent to pathology. Clearance fragment bone left third toe sent to microbiology for aerobic, anaerobic, acid-fast, fungal Estimated Blood Loss (mL): <50 mL Description of Procedure: Indications: This 58-year-old male With significant past medical history of atrial fibrillation, coronary artery disease status post CABG, hypertension, and diabetes with neuropathy was seen for chronic left third toe ulceration with associated osteomyelitis which is suspected to be the nidus of infection for his recently treated bacteremia and sepsis. He is on 6-week course of cefazolin for MSSA bacteremia. It is also noted he is being worked up for endocarditis which has not been confirmed at this point. Clinically, he does have an ulcer that has devitalized and seropurulent drainage with positive probe to deep structures the distal third toe. X-rays did not demonstrate osseous destruction, acute injury, foreign body, or soft tissue emphysema. There was hammertoe deformity. MRI did have increased signals to the distal phalanx of the left third toe which also supports a diagnosis of osteomyelitis. His preoperative diagnostic data was reviewed including no leukocytosis or other gross abnormalities. His hemoglobin A1c was 6%. Preoperative optimization per medical team is appreciated. The preoperative indications, planned procedure, possible benefits, risks, complications, and anticipated healing time is were discussed in detail the patient. He understands and elects to proceed with surgery at this time. No guarantees made. He understands risks and complications include but are not limited to following: Pain, swelling, scarring, transfer lesion, continued ulceration, delayed or nonhealing, continued infection, allergic reaction, blood clot, loss of limb, function, life. I answered all of his questions. The informed surgical consent and limb were signed. Procedure detail: The patient was transferred to the operating room via cart and placed on the operating table in the supine position. Final verification of the patient, surgery, and limb designation was performed via the timeout procedure. MAC anesthesia was initially by the anesthesia team. Local anesthetic was administered by the podiatry team. A well-padded pneumatic left ankle tourniquet was placed by the podiatry team. The left lower extremity was prepped and draped in the usual aseptic manner and gravity exsanguination was performed. The tourniquet was inflated at this time and surgery proceeded as the following: A fishmouth incision was made with a 15 blade scalpel to the distal aspect of the left third toe in which the distal phalanx was disarticulated and removed from the table in total without difficulty. This fragment was sent to both microbiology and pathology as soft tissue and bone combined specimens. Copious irrigation was performed at this time. It was noted that no necrosis or purulence was seen at this time. Outer gloves, instruments, and drapes were was exchanged to allow a clean field at this time. A rongeur was used to resect a clearance fragment of half of the middle phalanx and this was also sent to microbiology and pathology. This was performed in a beveled manner. This level of resection was selected because it was clinically visualized to be proximal away from the area of infection and this is where the deformity could be corrected as well. A nice parabola of the remaining lesser toes was also achiev ed. Intraoperative fluoroscopy was used to confirm adequate resection of the third toe was performed without acute injuries. The tourniquet was deflated at this time and no pulsatile bleeding was noted. Hemostasis was applied with gentle direct pressure. It is noted there was bleeding tissue at all aspects of the amputation stump site. Saline irrigation was performed again and deep closure was performed with minimal Vicryl. The skin was reapproximated with simple horizontal mattress technique with Prolene sutures. A postoperative dressing consisting of Betadine gauze, gauze, Kerlix, and Abner wrap were applied. It is noted capillary fill time was less than 3 seconds to the dorsal and plantar flap of the recent amputation site. After procedure: The patient tolerated the procedure and anesthesia well. He was transferred to the PACU with vital signs stable and vascular status intact to the left lower extremity. He will be transferred back to the medical surgical floor upon estephanie nued stability. Postoperative x-rays were reviewed as noted. Pathology and microbiology specimens were sent including additional clearance fragments and the results are pending. To heel weightbearing to the left foot with a surgical shoe which was also ordered; to use assistive device only as needed. He was advised to keep the dressing clean, dry, intact until follow-up visit. To continue on IV cefazolin under the management of infectious disease which is appreciated. To continue medical management per hospitalist team which is also appreciated. Ok to continue all anticoagulation medication from a surgical standpoint. To continue nutritional supplementation to optimize healing. I will continue to follow him closely while in house. All postoperative orders were entered electronically. Jemima Barnett DPM, [facility] - Admit VTE Documentation VTE Present on Admission: No VTE Mechan Device Prophylaxis: SCD's VTE Pharm Prophylaxis ordered?: Yes
--- NOTE | 2018-09-12 17:15 | PCM.CONS.C ---
<Ingrid Barraza M - Last Filed: 09/12/18 17:15> Problem List (1) MSSA bacteremia Status: Acute (2) Sinus bradycardia Status: Chronic (3) Atherosclerosis of coronary artery without angina pectoris Status: Chronic Qualifiers: Coronary Disease-Associated Artery/Lesion type: [place] artery [place] vs. transplanted heart: [place] heart Qualified Code(s): I25.10 - 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of [place] coronary artery without angina pectoris Comment: CABG x 3 WALL-LAD, Free MAIK-OM, SVG-RPDA 06/12/18 (4) Essential hypertension Status: Chronic Reason for Consult Date of Consultation: 09/12/18 History of Present Illness: The patient is a 58 year old M [with a history of coronary artery disease with bypass surgery in June 2018. He had an WALL to the LAD, free MAIK to obtuse marginal branch, SVG to the posterior descending. Postoperatively he had sinus node dysfunction with atrial fibrillation RVR. He also has a history of hypertension hyperlipidemia and diabetes. Patient was admitted to [facility] on Saturday, September 09 for shortness of breath and chest pain for the last several days. He was noted to be febrile, hypertensive and hypoxic. He was admitted for bacteremia. During his examination he was noted to have osteomyelitis of his third left toe. Echocardiogram demonstrated possible tiny mobile mass on the right coronary cusp of his aortic valve. Thus we were consulted for evaluation of this. Patient states that prior to last week he had been feeling well. He was attending cardiac rehab and was not having any issues. Last weekend he noted that he started to feel fatigued had a low-grade fever then noted shortness of breath and chest discomfort and decided to come to the emergency room for further evaluation. He is undergoing his left third toe amputation today. Past Medical History Allergies/Adverse Reactions: Allergies Penicillins [PCN] Allergy (Verified 09/09/18 10:52) Unknown Home Medications: Ambulatory Orders Medication Instructions Recorded RX: Nitroglycerin (INPATIENT USE) 0.4 mg SUBLINGUAL Q5M PRN #20 tab 05/21/18 [Nitrostat] atorvastatin 80 mg tablet 80 mg PO QHS 07/24/18 glimepiride 2 mg tablet 1 mg PO DAILY tab 07/24/18 pantoprazole 40 mg tablet,delayed 40 mg PO DAILY 07/24/18 release furosemide 20 mg tablet 20 mg PO DAILY PRN PRN 07/25/18 RX: Amlodipine Besylate 10 mg PO DAILY 09/09/18 RX: Aspirin E.C. [Ecotrin] 81 mg PO DAILY@0800 09/09/18 RX: Lisinopril [Zestril] 20 mg PO BID 09/09/18 Past Medical History (Chronic Problems): Chronic Problems (Last Reviewed 07/25/18 @ 08:52 by Frdeo Rodriguez MD) Hammer toe of left foot (Chronic) Chronic ulcer of left foot with fat layer exposed (Chronic) Postoperative atrial fibrillation (Chronic 06/12/18) Sinus bradycardia (Chronic) Diastolic dysfunction with acute on chronic heart failure (Chronic) Atherosclerosis of coronary artery without angina pectoris (Chronic) CABG x 3 WALL-LAD, Free MAIK-OM, SVG-RPDA 06/12/18 H/O coronary artery bypass surgery (Chronic 06/12/18) CABG x 3 WALL-LAD, Free MAIK-OM, SVG-RPDA 06/12/18 Essential hypertension (Chronic) Surgical History: cataract, cholecystectomy, coronary bypass surgery, total knee arthroplasty, - - toe partial amputation, skin cancer facial Psychiatric History: No pertinent psych hx - *Family History Maternal Family History: Family History (Last Reviewed 07/25/18 @ 08:52 by Fredo Rodriguez MD) Mother Diabetes History Items: Diabetes Paternal Family History: Family History (Last Reviewed 07/25/18 @ 08:52 by Fredo Rodriguez MD) Mother Diabetes History Items: No pertinent history Lives: With Family Smoking Status: Never smoker Tobacco Use: Non-smoker Alcohol: None Review of Systems - Review of Systems General: Reports: Fever, Fatigue. Denies: Night Sweats HEENT: Denies: Vision Change, Blurred Vision Cardiovascular: Reports: Chest Discomfort, Shortness of Breath. Denies: Chest Discomfort at Rest, Chest Discomfort with Exertion, Shortness of Breath with Exertion, Orthopnea, Palpitations, Lightheadedness, Near Syncope, Syncope Respiratory: Denies: Cough Gastrointestinal: Denies: Indigestion, Heart Burn, Nausea, Diarrhea Muscoloskeletal: Reports: - - Swelling of his left foot noted Neurological: Denies: Dizziness, Vertigo Objective: Vital Signs Temp Pulse Resp BP Pulse Ox 99.6 F H 86 16 171/87 H 93 05/31/19 16:50 09/12/18 16:50 09/12/18 16:50 09/12/18 16:50 09/12/18 16:50 Oxygen Flow Rate (L/min) 3 Oxygen Delivery Method Nasal Cannula Weight: 220 lb 7.396 oz Body Mass Index (BMI) 29.0 Intake and Output for Last 24 Hours 09/10/18 09/11/18 09/12/18 23:59 23:59 23:59 Intake Total 2729 / 2729 4497 / 4497 3303 / 3303 Output Total 880 / 880 1925 / 1925 500 / 500 Balance 1849 / 1849 2572 / 2572 2803 / 2803 General: Healthy Appearing, Awake, Alert, Oriented x 3, Cooperative, No Acute Distress HEENT: Atraumatic, Normocephalic, PERRL, EOMI, Sclera Non Icteric Oral: Moist Mucosa Neck: Supple, No JVD Chest Wall: Midline Sternotomy Incision Lungs: Clear to auscultation Cardiovascular: Regular Rhythm, Normal S1, Normal S2 Murmur Murmur: Grade 1/6, Soft Vascular: No Carotid Bruits Abdomen: Bowel Sounds Present, Non Tender Extremities: Mild LLE Edema Neurological: CN II-XII Intact Psych/Mental Status: Appropriate, Normal Affect 09/12/18 05:25: WBC 8.2, RBC 3.28 L, Hgb 10.0 L, Hct 28.5 L, MCV 86.9, MCH 30.5, MCHC 35.1, RDW 13.9, RDW Differential 44.3 H, Plt Count 216, MPV 9.4, Immature Gran % (Auto) 0.400, Neut % (Auto) 72.5 H, Lymph % (Auto) 10.0 L, [place] % (Auto) 15.6 H, Eos % (Auto) 1.3, Baso % (Auto) 0.2, Absolute Neuts (auto) 6.0, Total Counted Not Reportable 09/12/18 05:25: Sodium 131 L, Potassium 3.9, Chloride 98, Carbon Dioxide 23.0, Anion Gap 10, BUN 29 H, Creatinine 1.45 H, Est GFR (MDRD) Af Amer 64, Est GFR (MDRD) Non-Af 53 L, BUN/Creatinine Ratio 20.0, Glucose 126 H, Calcium 8.0 L 09/12/18 05:25: PT 14.9, INR 1.2, APTT 51.5 H 09/12/18 05:25: Hemoglobin A1c 6.0 Rhythm: EKG: Estimated ejection fraction is 65%, stage III diastolic dysfunction. Left atrium is moderately enlarged. Normal right atrium. Unable to estimate RV systolic pressure due to inadequate jet. Pulmonary artery pressure probably normal. Cannot exclude aortic valvular vegetation. Possible tiny mobile mass noted at right coronary cusp. When compared to echocardiogram from May 19, 2018 LV function has remained the same. Would consider BRODY if clinically indicated. ECHO: Stress Test: Cardiac Cath: PCI: CT Surgery: Holter monitor: EPS: PPM: CXR: Chest CT Scan: Assessment/Plan 1. Aortic valvular vegetation: Patient is currently being managed by infectious disease. He is undergoing surgery to have his left third toe amputated. There is concern that his osteomyelitis may have contributed to possible endocarditis. Patient is currently being treated with antibiotics. This is being managed by infectious disease. With concern of endocarditis would like to further evaluate with a BRODY, feel that this could be done after he has his surgery and we will likely do this early next week prior to discharge. 2. Coronary artery disease with recent bypass surgery: Patient is not symptomatic. He will continue with his Norvasc, lisinopril, aspirin and atorvastatin. He should not is not on a beta-leonardo due to his sinus bradycardia postoperatively from his bypass surgery. 3. Hypertension: Patient's blood pressure is elevated, will monitor and adjust medications if need be. 4. Hyperlipidemia: Patient will continue with his current high dose statin. 5. Postoperative atrial fibrillation: Patient is not on any rate limiting medication or anticoagulant at this time as it was felt that this was not necessary. We will continue to monitor for any rhythm changes and reconsider if need be. Case was discussed with Dr. Villasenor <Gavin Villasenor - Last Filed: 09/12/18 22:43> Reason for Consult History of Present Illness: The patient is a 58 year old M [] Past Medical History - *Family History Maternal Family History: Family History (Last Reviewed 07/25/18 @ 08:52 by Fredo Rodriguez MD) Mother Diabetes Paternal Family History: Family History (Last Reviewed 07/25/18 @ 08:52 by Fredo Rodriguez MD) Mother Diabetes Objective: Vital Signs Temp Pulse Resp BP Pulse Ox 98.2 F 90 18 166/110 H 96 09/12/18 17:29 09/12/18 19:27 09/12/18 19:27 09/12/18 17:29 09/12/18 17:29 Oxygen Flow Rate (L/min) 3 Oxygen Delivery Method Nasal Cannula Weight: 220 lb 7.396 oz Body Mass Index (BMI) 29.0 Intake and Output for Last 24 Hours 09/10/18 09/11/18 09/12/18 23:59 23:59 23:59 Intake Total 2729 / 2729 4497 / 4497 4353 / 4353 Output Total 880 / 880 1925 / 1925 850 / 850 Balance 1849 / 1849 2572 / 2572 3503 / 3503 09/12/18 05:25: WBC 8.2, RBC 3.28 L, Hgb 10.0 L, Hct 28.5 L, MCV 86.9, MCH 30.5, MCHC 35.1, RDW 13.9, RDW Differential 44.3 H, Plt Count 216, MPV 9.4, Immature Gran % (Auto) 0.400, Neut % (Auto) 72.5 H, Lymph % (Auto) 10.0 L, [place] % (Auto) 15.6 H, Eos % (Auto) 1.3, Baso % (Auto) 0.2, Absolute Neuts (auto) 6.0, Total Counted Not Reportable 09/12/18 05:25: Sodium 131 L, Potassium 3.9, Chloride 98, Carbon Dioxide 23.0, Anion Gap 10, BUN 29 H, Creatinine 1.45 H, Est GFR (MDRD) Af Amer 64, Est GFR (MDRD) Non-Af 53 L, BUN/Creatinine Ratio 20.0, Glucose 126 H, Calcium 8.0 L 09/12/18 05:25: PT 14.9, INR 1.2, APTT 51.5 H 09/12/18 05:25: Hemoglobin A1c 6.0 Rhythm: EKG: ECHO: Stress Test: Cardiac Cath: PCI: CT Surgery: Holter monitor: EPS: PPM: CXR: Chest CT Scan: Assessment/Plan Addendum: The above was discussed and reviewed with ROBBIN Lai. The patient was independently interviewed and evaluated. The patient appears to be resting comfortably at this time in no acute distress status post his left third toe partial amputation. He describes no ongoing chest discomfort or difficulty breathing. His examination demonstrates his lungs to be clear to auscultation bilaterally and his underlying cardiac rate and rhythm appear to be regular. His laboratory studies and microbiology studies have been reviewed. His previous transthoracic echocardiogram was reviewed and discussed with the interpreting physician-Dr. Damion Chambers. At the present time, as noted above, there is concern as to whether or not he has any involvement of his underlying valvular heart disease from an infectious standpoint. Thus, it was felt reasonable that he be considered for further evaluation with transesophageal echocardiogram. At the moment, as this does not appear to be urgent/emergent, he will continue to recuperate from his surgical procedure and continue with his IV antibiotics. The above was discussed and reviewed with the patient as well as previously with Dr. Head of the pulmonology/critical care medicine staff. This note was generated with [employer]iv[employer] software. It may contain incorrect words, spelling, and punctuation that were not noted in checking the note before signing.
[2018-09-12 17:26] LABS: Bedside Glucose 140 mg/dL (70-110)
[2018-09-12] MEDS: Atorvastatin Calcium 80 MG Tablet PO (23:00)
[2018-09-12] MEDS: Lisinopril 20 MG Tablet PO (23:00)
[2018-09-12] MEDS: Insulin Lispro 100 UNIT/ML INSULN.PEN SQ (23:20)
[2018-09-13] VITALS (14 sets, daily range): BP systolic 160–180; BP diastolic 79–94; PULSE 81–100; RESP 16–20; TEMP 36.8–37.3; O2SAT 90–96
[2018-09-13 00:15] LABS: Bedside Glucose 157 mg/dL (70-110)
[2018-09-13] MEDS: oxyCODONE 5 MG Tablet PO ×4 (05:22→20:27)
[2018-09-13] MEDS: Cefazolin 2 GM in 0.9% Normal Saline 100 ML IV ×3 (05:25→22:10)
[2018-09-13] MEDS: Acetaminophen 500 MG Tablet 1000 MG PO ×3 (05:28→22:11)
[2018-09-13] MEDS: Heparin Injection (Vial) 5,000 UNIT/ML VIAL 5000 UNIT SC ×3 (05:28→22:10)
[2018-09-13] MEDS: cycloBENZAPRine HCl 5 MG TABLET PO ×3 (05:28→22:10)
[2018-09-13] MEDS: hydrALAZINE 20 MG/ML Vial 5 MG IV ×2 (06:29→11:52)
[2018-09-13] MEDS: Ipratropium/Albuterol Sulfate 3 ML AMPUL.NEB INHALATION ×4 (07:03→19:03)
--- NOTE | 2018-09-13 07:33 | PCM.PN.PUL ---
Patient Problems: Active and Suspected Problems (Last Reviewed 07/25/18 @ 08:52 by Fredo Rodriguez MD) MSSA bacteremia (Acute) Osteomyelitis (Acute) Subjective: The patient was seen and examined at the bedside this morning. Events from the last 24 hours have been reviewed. The patient is currently afebrile, hemodynamically stable and maintaining appropriate oxygen saturations on 3 L/min via nasal cannula. Blood pressures have been quite elevated overnight. Objective: The patient's most recent lab work, culture data and imaging studies have all been personally reviewed. Blood and wound cultures were positive for MSSA. Surface echocardiogram revealed evidence of stage III diastolic dysfunction with an ejection fraction of 65%. There was evidence of a possible aortic valve vegetation. Repeat blood cultures are pending. - Physical Exam General: Alert, Cooperative, No apparent distress HEENT: Atraumatic, PERRLA, Normocephalic Oral: No Gingival or Mucosal Lesions/ Ulcerations Neck: Supple, No Nodes, Trachea Midline Lungs: No rhonchi, No wheeze, No rales, Diminished Cardiovascular: Regular rate, Regular Rhythm, Normal S1, Normal S2, Murmur Abdomen: Bowel Sounds Present, Soft, Non Tender Extremities: No clubbing, No cyanosis, No edema Skin: - - No significant change from previous Musculoskeletal: No Tenderness to Palpation of Joints or Extremities Lymphatic: No Cervical, Supraclavicular, or Inguinal Adenopathy Neurological: Neuro grossly intact Psych/Mental Status: Normal Affect, Appropriate Vital Signs Temp Pulse Resp BP Pulse Ox 98.4 F 88 18 180/94 H 93 09/13/18 05:34 09/13/18 06:29 09/13/18 05:34 09/13/18 06:29 09/13/18 05:34 Oxygen Flow Rate (L/min) 3.5 Oxygen Delivery Method Nasal Cannula Weight: 220 lb 7.396 oz Body Mass Index (BMI) 29.0 Intake and Output for Last 24 Hours 09/11/18 09/12/18 09/13/18 23:59 23:59 23:59 Intake Total 4497 / 4497 4353 / 4353 2249 / 2249 Output Total 1925 / 1925 850 / 850 1325 / 1325 Balance 2572 / 2572 3503 / 3503 924 / 924 Microbiology Past 72 Hours 09/11/18 Unknown Gram Stain - Final Wound - Toe Wound Culture - Final Staphylococcus aureus 09/10/18 08:50 Blood Culture - Preliminary Blood Culture (Wb) - Right Forearm Staphylococcus aureus 09/10/18 08:54 Blood Culture - Preliminary Blood Culture (Wb) - Anticubital Left Staphylococcus aureus 09/09/18 11:45 Blood Culture - Final Blood Culture (Wb) - Anticubital Right Staphylococcus aureus 09/09/18 11:35 Bacteria Detection (PCR) - Final Blood Culture (Wb) - Left Forearm Staphylococcus aureus Blood Culture - Final Staphylococcus aureus Laboratory Tests Past 24 Hrs 09/12/18 05:25 Hemoglobin A1c 6.0 POC Glucose 09/12/18 09/12/18 09/12/18 23:16 17:19 13:31 POC Glucose 157 H 140 H 133 H 09/12/18 11:11 POC Glucose 133 H Clinical Impression(s) from Imaging Studies Chest CTA 09/09/18 11:18 IMPRESSION: Mild degree of increased markings at the lung bases suggestive of scarring. Electronically Signed: Emir Kwan, at 12:53 EDT , Service support , Abdomen/Pelvis CT 09/09/18 17:12 IMPRESSION: No acute abdominal or pelvic pathology demonstrated on this noncontrast CT. Electronically Signed: Ezekiel Lozano, at 17:57 EDT Tel , Service support , ADDENDUM: 09/09/18 1808 Mandible X-Ray 09/10/18 15:37 IMPRESSION: No mandibular fracture or evidence of infection identified. If indicated, further evaluation with CT can be performed. Moderate degenerative changes with mild subluxation at the C3-C4 level. Correlate clinically. Electronically Signed: Ezekiel Lozano, at 17:39 EDT Tel , Service support , Foot X-Ray 09/10/18 16:00 IMPRESSION: No fracture or dislocation. Degenerative changes described above. No evidence of infection. Electronically Signed: Ezekiel Lozano, at 17:18 EDT Tel , Service support , Lower Extremity MRI 09/11/18 07:27 IMPRESSION: Signal alteration of the third distal phalanx suggestive of osteomyelitis. Edema in the subcutis adipose space without demonstrated soft tissue abscess. 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 Mild edema in the intrinsic muscles of the forefoot suggestive of myositis. Intermetatarsal neuroma of the second webspace. Electronically Signed: Arvind Frey MD at 10:13 EDT Tel , Service support , Lumbar Spine X-Ray 09/11/18 10:20 IMPRESSION: Degenerative changes of the spine, as detailed above. Electronically Signed: Emir Kwan, at 15:30 EDT , Service support , Foot X-Ray 09/12/18 15:15 IMPRESSION: As above Electronically Signed: Jarred Grant DO at 18:13 EDT Tel , Service support , Medical Necessity - Tobacco Use Smoking Status: Never smoker Tobacco Use: Non-smoker Assessment/Plan All Active Problems (Last Reviewed 07/25/18 @ 08:52 by Fredo Rodriguez MD) MSSA bacteremia (Acute) Osteomyelitis (Acute) RECOMMENDATIONS: 1. Continue antimicrobial coverage per ID recommendations. 2. Await transesophageal echocardiogram. 3. Wean supplemental oxygen as tolerated. 4. Encourage aggressive incentive spirometer use and mobilize patient as tolerated. IMPRESSIONS: 1. Severe sepsis due to MSSA bacteremia from left third toe osteomyelitis Continue current supportive measures, along with antibiotics per infectious diseases recommendations. Continue local wound care. Cardiology following with plans for possible BRODY. 2. Coronary artery disease status post CABG/diabetes mellitus/hypertension/heart failure with preserved ejection fraction Complicates care, management, recovery and prognosis. Continue current supportive measures. This note was generated with Dream[employer]izeation software. It may contain incorrect words, spelling, and punctuation that were not noted in checking the note before signing. Code Visit Inpatient E&M: 07696 Subs Hosp L2
--- NOTE | 2018-09-13 07:38 | PN_ITS ---
Patient Problems: Active and Suspected Problems (Last Reviewed 07/25/18 @ 08:52 by Fredo Rodriguez MD) MSSA bacteremia (Acute) Osteomyelitis (Acute) Subjective: The patient was seen and examined at the bedside this morning. Events from the last 24 hours have been reviewed. The patient is currently afebrile, hemodynamically stable and maintaining appropriate oxygen saturations on 3 L/min via nasal cannula. Blood pressures have been quite elevated overnight. Objective: The patient's most recent lab work, culture data and imaging studies have all been personally reviewed. Blood and wound cultures were positive for MSSA. Surface echocardiogram revealed evidence of stage III diastolic dysfunction with an ejection fraction of 65%. There was evidence of a possible aortic valve vegetation. Repeat blood cultures are pending. - Physical Exam General: Alert, Cooperative, No apparent distress HEENT: Atraumatic, PERRLA, Normocephalic Oral: No Gingival or Mucosal Lesions/ Ulcerations Neck: Supple, No Nodes, Trachea Midline Lungs: No rhonchi, No wheeze, No rales, Diminished Cardiovascular: Regular rate, Regular Rhythm, Normal S1, Normal S2, Murmur Abdomen: Bowel Sounds Present, Soft, Non Tender Extremities: No clubbing, No cyanosis, No edema Skin: - - No significant change from previous Musculoskeletal: No Tenderness to Palpation of Joints or Extremities Lymphatic: No Cervical, Supraclavicular, or Inguinal Adenopathy Neurological: Neuro grossly intact Psych/Mental Status: Normal Affect, Appropriate Vital Signs Temp Pulse Resp BP Pulse Ox 98.4 F 88 18 180/94 H 93 09/13/18 05:34 09/13/18 06:29 09/13/18 05:34 09/13/18 06:29 09/13/18 05:34 Oxygen Flow Rate (L/min) 3.5 Oxygen Delivery Method Nasal Cannula Weight: 220 lb 7.396 oz Body Mass Index (BMI) 29.0 Intake and Output for Last 24 Hours 09/11/18 09/12/18 09/13/18 23:59 23:59 23:59 Intake Total 4497 / 4497 4353 / 4353 2249 / 2249 Output Total 1925 / 1925 850 / 850 1325 / 1325 Balance 2572 / 2572 3503 / 3503 924 / 924 Microbiology Past 72 Hours 09/11/18 Unknown Gram Stain - Final Wound - Toe Wound Culture - Final Staphylococcus aureus 09/10/18 08:50 Blood Culture - Preliminary Blood Culture (Wb) - Right Forearm Staphylococcus aureus 09/10/18 08:54 Blood Culture - Preliminary Blood Culture (Wb) - Anticubital Left Staphylococcus aureus 09/09/18 11:45 Blood Culture - Final Blood Culture (Wb) - Anticubital Right Staphylococcus aureus 09/09/18 11:35 Bacteria Detection (PCR) - Final Blood Culture (Wb) - Left Forearm Staphylococcus aureus Blood Culture - Final Staphylococcus aureus Laboratory Tests Past 24 Hrs 09/12/18 05:25 Hemoglobin A1c 6.0 POC Glucose 09/12/18 09/12/18 09/12/18 23:16 17:19 13:31 POC Glucose 157 H 140 H 133 H 09/12/18 11:11 POC Glucose 133 H Clinical Impression(s) from Imaging Studies Chest CTA 09/09/18 11:18 IMPRESSION: Mild degree of increased markings at the lung bases suggestive of scarring. Electronically Signed: Emir Kwan, at 12:53 EDT , Service support , Abdomen/Pelvis CT 09/09/18 17:12 IMPRESSION: No acute abdominal or pelvic pathology demonstrated on this noncontrast CT. Electronically Signed: Ezekiel Lozano, at 17:57 EDT Tel , Service support , ADDENDUM: 09/09/18 1808 Mandible X-Ray 09/10/18 15:37 IMPRESSION: No mandibular fracture or evidence of infection identified. If indicated, further evaluation with CT can be performed. Moderate degenerative changes with mild subluxation at the C3-C4 level. Correlate clinically. Electronically Signed: Ezekiel Lozano, at 17:39 EDT Tel , Service support , Foot X-Ray 09/10/18 16:00 IMPRESSION: No fracture or dislocation. Degenerative changes described above. No evidence of infection. Electronically Signed: Ezekiel Lozano, at 17:18 EDT Tel , Service support , Lower Extremity MRI 09/11/18 07:27 IMPRESSION: Signal alteration of the third distal phalanx suggestive of osteomyelitis. Edema in the subcutis adipose space without demonstrated soft tissue abscess. 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 Mild edema in the intrinsic muscles of the forefoot suggestive of myositis. Intermetatarsal neuroma of the second webspace. Electronically Signed: Arvind Frey MD at 10:13 EDT Tel , Service support , Lumbar Spine X-Ray 09/11/18 10:20 IMPRESSION: Degenerative changes of the spine, as detailed above. Electronically Signed: Emir Kwan, at 15:30 EDT , Service support , Foot X-Ray 09/12/18 15:15 IMPRESSION: As above Electronically Signed: Jarred Grant DO at 18:13 EDT Tel , Service support , Medical Necessity - Tobacco Use Smoking Status: Never smoker Tobacco Use: Non-smoker Assessment/Plan All Active Problems (Last Reviewed 07/25/18 @ 08:52 by Fredo Rodriguez MD) MSSA bacteremia (Acute) Osteomyelitis (Acute) RECOMMENDATIONS: 1. Continue antimicrobial coverage per ID recommendations. 2. Await transesophageal echocardiogram. 3. Wean supplemental oxygen as tolerated. 4. Encourage aggressive incentive spirometer use and mobilize patient as tolerated. IMPRESSIONS: 1. Severe sepsis due to MSSA bacteremia from left third toe osteomyelitis Continue current supportive measures, along with antibiotics per infectious diseases recommendations. Continue local wound care. Cardiology following with plans for possible BRODY. 2. Coronary artery disease status post CABG/diabetes mellitus/hypertension/heart failure with preserved ejection fraction Complicates care, management, recovery and prognosis. Continue current supportive measures. This note was generated with [employer] software. It may contain incorrect words, spelling, and punctuation that were not noted in checking the note before signing. Code Visit Inpatient E&M: 72377 Subs Hosp L2
[2018-09-13] MEDS: Pantoprazole Sodium 40 MG Tablet PO (07:47)
[2018-09-13] MEDS: Lisinopril 20 MG Tablet PO ×2 (07:47→20:33)
[2018-09-13] MEDS: amLODIPine 10 MG Tablet PO (07:47)
[2018-09-13] MEDS: Aspirin E.C. 81 MG Tablet PO (07:47)
[2018-09-13 08:50] LABS: Anion Gap 9 (5-15); BUN 18 mg/dL (7-18); BUN/Creat Ratio 16.4 RATIO (10-20); Chloride 99 mmol/L (98-107); EST Glomerular Filtration Rate 73 mL/min (>60); Est Glom Filt Rate - Afr Amer 88 mL/min (>60); Estimated Creatinine Clearance 80.71 ml/min; Glucose 122 mg/dL (74-106); Potassium 3.5 mmol/L (3.5-5.1); Sodium Level 132 mmol/L (136-145)
[2018-09-13 09:01] LABS: Bedside Glucose 141 mg/dL (70-110)
--- NOTE | 2018-09-13 10:21 | PN_ITS ---
Patient Problems: Active and Suspected Problems (Last Reviewed 07/25/18 @ 08:52 by Fredo Rodriguez MD) MSSA bacteremia (Acute) Osteomyelitis (Acute) Subjective: feeling better. still with right flank pain. Vitals/I&O's: Vital Signs Temp Pulse Resp BP Pulse Ox 36.9 C 86 20 H 170/79 H 94 09/13/18 07:38 09/13/18 09:57 09/13/18 07:38 09/13/18 09:57 09/13/18 07:38 Oxygen Flow Rate (L/min) 3 Oxygen Delivery Method Room Air Weight: 100 kg Body Mass Index (BMI) 29.0 Intake and Output for Last 24 Hours 09/11/18 09/12/18 09/13/18 23:59 23:59 23:59 Intake Total 4497 / 4497 4353 / 4353 2249 / 2249 Output Total 1925 / 1925 850 / 850 1325 / 1325 Balance 2572 / 2572 3503 / 3503 924 / 924 General: Alert, No apparent distress HEENT: Atraumatic, Normocephalic Oral: Moist Mucosa, No Gingival or Mucosal Lesions/ Ulcerations Neck: No Nodes, Thyroid Normal Size and Texture Lungs: - - crackles RLL. Cardiovascular: Regular rate, Regular Rhythm, Normal S1, Normal S2, No murmurs Abdomen: Bowel Sounds Present, Soft, Non Tender, Non-Distended, No Hepato- splenomegaly Extremities: No edema, No Calf Tenderness, - - left foot wrapped--did not remove. Skin: No rashes, No breakdown Psych/Mental Status: Normal Affect, Appropriate Microbiology Past 72 Hours 09/11/18 08:06 Blood Culture (Wb) - Anticubital Left Blood Culture - Preliminary No growth in 48 hours. 09/11/18 08:02 Blood Culture (Wb) - Right Forearm Blood Culture - Preliminary No growth in 48 hours. 09/11/18 Unknown Wound - Toe Gram Stain - Final 09/11/18 Unknown Wound - Toe Wound Culture - Final Staphylococcus aureus 09/10/18 08:50 Blood Culture (Wb) - Right Forearm Blood Culture - Preliminary Staphylococcus aureus 09/10/18 08:54 Blood Culture (Wb) - Anticubital Left Blood Culture - Preliminary Staphylococcus aureus 09/09/18 11:45 Blood Culture (Wb) - Anticubital Right Blood Culture - Final Staphylococcus aureus 09/09/18 11:35 Blood Culture (Wb) - Left Forearm Bacteria Detection (PCR) - Final Staphylococcus aureus 09/09/18 11:35 Blood Culture (Wb) - Left Forearm Blood Culture - Final Staphylococcus aureus Laboratory Results 09/12/18 11:11: POC Glucose 133 H 09/12/18 13:31: POC Glucose 133 H 09/12/18 17:19: POC Glucose 140 H 09/12/18 23:16: POC Glucose 157 H 09/13/18 06:38: POC Glucose 141 H 09/13/18 08:00: Sodium 132 L, Potassium 3.5, Chloride 99, Carbon Dioxide 24.0, Anion Gap 9, BUN 18, Creatinine 1.10, Estim Creat Clear Calc 80.71, Est GFR (MDRD) Af Amer 88, Est GFR (MDRD) Non-Af 73, BUN/Creatinine Ratio 16.4, Glucose 122 H, Calcium 8.0 L Current Medications Acetaminophen (Tylenol) 1,000 mg PO Q8 [facility] Last Admin: 09/13/18 05:28 Dose: 1,000 mg Albuterol Sulfate (Ventolin Aerosols) 2.5 mg INHALATION Q2H PRN PRN Reason: SOB &/OR WHEEZING Last Admin: 09/11/18 04:38 Dose: 2.5 mg Albuterol/Ipratropium (Duoneb) 3 ml INHALATION Q4HWA.RT [facility] Last Admin: 09/13/18 07:03 Dose: 3 ml Amlodipine Besylate (Norvasc) 10 mg PO DAILY [facility] Last Admin: 09/13/18 07:47 Dose: 10 mg Aspirin (Ecotrin) 81 mg PO DAILY@0800 [facility] Last Admin: 09/13/18 07:47 Dose: 81 mg Atorvastatin Calcium (Lipitor) 80 mg PO QHS [facility] Last Admin: 09/12/18 23:00 Dose: 80 mg Cyclobenzaprine HCl (Cyclobenzaprine Hcl) 5 mg PO TID [facility] Last Admin: 09/13/18 05:28 Dose: 5 mg Dextrose (D50w Syringe) 0 gm IV X1 PRN; Protocol PRN Reason: Hypoglycemia Docusate Sodium (Colace) 200 mg PO BID PRN PRN PRN Reason: Constipation Glucagon () 1 mg IM .X1 PRN PRN Reason: Hypoglycemia Guaifenesin (Mucinex) 1,200 mg PO BID PRN PRN PRN Reason: COUGH Heparin Sodium (Porcine) (Heparin Na) 5,000 unit SC Q8 [facility] Last Admin: 09/13/18 05:28 Dose: 5,000 unit Hydralazine HCl (Apresoline Iv) 5 mg IV Q4H PRN PRN PRN Reason: Systolic BP >160 Last Admin: 09/13/18 06:29 Dose: 5 mg Hydroxyzine Pamoate (Vistaril Pamoate Capsule) 50 mg PO Q6H PRN PRN Reason: ANXIETY Last Admin: 09/11/18 08:00 Dose: 50 mg Cefazolin Sodium 2 gm/ Sodium (Chloride) 110 mls @ 150 mls/hr IV Q8 [facility] Last Admin: 09/13/18 05:25 Dose: 150 mls/hr Insulin Human Lispro (Humalog Kwikpen (Bkc)) 0 unit SQ ACHS [facility]; Protocol Last Admin: 09/13/18 06:40 Dose: Not Given Lisinopril (Zestril) 20 mg PO BID [facility] Last Admin: 09/13/18 07:47 Dose: 20 mg Melatonin (Melatonin) 3 mg PO QHS PRN PRN Reason: INSOMNIA Last Admin: 09/10/18 21:52 Dose: 3 mg Nitroglycerin (Nitrostat) 0.4 mg SUBLINGUAL Q5M PRN PRN Reason: CARDIAC/CHEST PAIN Ondansetron HCl (Zofran) 4 mg IV Q8H PRN PRN PRN Reason: NAUSEA/VOMITING Oxycodone HCl (Oxyir) 5 mg PO Q4H PRN PRN PRN Reason: SEVERE PAIN (6-10/10) Last Admin: 09/13/18 10:04 Dose: 5 mg Pantoprazole Sodium (Protonix) 40 mg PO DAILY [facility] Last Admin: 09/13/18 07:47 Dose: 40 mg Sodium Chloride () 5 - 15 ml IV UD PRN PRN Reason: SALINE FLUSH Last Admin: 09/09/18 22:07 Dose: 10 ml Medical Necessity - Tobacco Use Smoking Status: Never smoker Tobacco Use: Non-smoker Assessment/Plan All Active Problems (Last Reviewed 07/25/18 @ 08:52 by Fredo Rodriguez MD) MSSA bacteremia (Acute) Osteomyelitis (Acute) 1. Sepsis * POA * 2/2 bacteremia and osteomyelitis +/- endocarditis * no pneumonia on CT--ruled out * improving 2. Bacteremia: * S. aureus likely from OM * on cefazolin * repeat BCx 09/10 still +, repeat again 09/11 so far negative. * 2/2 3rd toe osteomyelitis +/- endocarditis * DW Dr. Yuan, treat empirically for endocarditis with cefazolin for 6 weeks 3. Left 3rd toe osteomyelitis * likely source of #2 * DW Dr. Barnett of podiatry * DW patient about MRI findings and mentioned that he may require an amputation 4. possible endocarditis * mobile mass on right coronary cusp * cefazolin for 6 weeks * BRODY for 09/15 5. RAFA * resolved * may be due to IV contrast from CTA (doubt due to vancomycin as it was given during the blood draw for the lab) 6. hyponatremia * improved * review of medications shows no obvious culprit * monitor 7. Acute hypoxic respiratory insufficiency * still requiring oxygen * no PNA, PE * monitor * wean oxygen as tolerated 8. VTE prophy: SQ heparin. Code Visit Inpatient E&M: 49902 Subs Hosp L2
--- NOTE | 2018-09-13 10:57 | PN_ITS ---
Patient Problems: Active and Suspected Problems (Last Reviewed 07/25/18 @ 08:52 by Fredo Rodriguez MD) MSSA bacteremia (Acute) Osteomyelitis (Acute) Subjective: This 58-year-old male with multiple comorbidities was seen bedside postoperative day #1 left third toe partial amputation. He denies pain, fever, chill, nausea, vomiting, calf pain, chest pain. His shortness of breath is consistent with prior status. He has a surgical shoe bedside. He also asked for help trimming his remaining toenails (all right and 1, 4, 5 left) that he is not able to safely perform on his own. He has diabetic neuropathy with continued rest paresthesias and loss of sensation. - Physical Exam General: Alert, Oriented x3, Cooperative Extremities: No cyanosis, Capillary Refill Less than 3 Seconds - Dorsal and plantar third partial toe amputation stump site and remaining digits bilateral foot, No Calf Tenderness - Negative Monica and Renner sign bilateral, Diminished Peripheral Pulses, Edema - Mild left foot Skin: Incision - Amputation stump site on the left third toe incision is well aligned and coapted without gapping, necrosis, infection noted. The peripheral skin is hairless and atrophic and there is no interdigital maceration., - - Toenails right 1, 2, 3, 4, 5 and left 1,4,5 or long thick dystrophic with subungual debris; no skin discontinuity noted upon debridement of the nails. Musculoskeletal: No Tenderness to Palpation of Joints or Extremities, Muscle Wasting, - - partial 2nd (healed) and 3rd toe amputation. Compartments bilateral foot soft. Dorsal contraction consistent with hammertoe deformity all lesser toes in the right and the fourth and fifth digit on the left Neurological: - - Lack of epicritic sensation light touch consistent with neuropathy Psych/Mental Status: Normal Affect, Appropriate Vital Signs Temp Pulse Resp BP Pulse Ox 98.5 F 86 20 H 170/79 H 94 09/13/18 07:38 09/13/18 09:57 09/13/18 07:38 09/13/18 09:57 09/13/18 07:38 Oxygen Flow Rate (L/min) 3 Oxygen Delivery Method Room Air Weight: 100 kg Body Mass Index (BMI) 29.0 Intake and Output for Last 24 Hours 09/11/18 09/12/18 09/13/18 23:59 23:59 23:59 Intake Total 4497 / 4497 4353 / 4353 2249 / 2249 Output Total 1925 / 1925 850 / 850 1325 / 1325 Balance 2572 / 2572 3503 / 3503 924 / 924 Microbiology Past 72 Hours 09/12/18 16:47 Wound Culture - Preliminary Biopsy - Toe No growth-Final to follow 09/12/18 16:47 Wound Culture - Preliminary Biopsy - Toe Staphylococcus aureus 09/11/18 08:06 Blood Culture - Preliminary Blood Culture (Wb) - Anticubital Left No growth in 48 hours. 09/11/18 08:02 Blood Culture - Preliminary Blood Culture (Wb) - Right Forearm No growth in 48 hours. 09/11/18 Unknown Gram Stain - Final Wound - Toe Wound Culture - Final Staphylococcus aureus 09/10/18 08:50 Blood Culture - Preliminary Blood Culture (Wb) - Right Forearm Staphylococcus aureus 09/10/18 08:54 Blood Culture - Preliminary Blood Culture (Wb) - Anticubital Left Staphylococcus aureus 09/09/18 11:45 Blood Culture - Final Blood Culture (Wb) - Anticubital Right Staphylococcus aureus 09/09/18 11:35 Bacteria Detection (PCR) - Final Blood Culture (Wb) - Left Forearm Staphylococcus aureus Blood Culture - Final Staphylococcus aureus Laboratory Tests Past 24 Hrs 09/13/18 08:00 Sodium 132 L Potassium 3.5 Chloride 99 Carbon Dioxide 24.0 Anion Gap 9 BUN 18 Creatinine 1.10 Estim Creat Clear Calc 80.71 Est GFR (MDRD) Af Amer 88 Est GFR (MDRD) Non-Af 73 BUN/Creatinine Ratio 16.4 Glucose 122 H Calcium 8.0 L POC Glucose 09/13/18 09/12/18 09/12/18 06:38 23:16 17:19 POC Glucose 141 H 157 H 140 H 09/12/18 09/12/18 13:31 11:11 POC Glucose 133 H 133 H Medical Necessity - Tobacco Use Smoking Status: Never smoker Tobacco Use: Non-smoker Assessment/Plan All Active Problems (Last Reviewed 07/25/18 @ 08:52 by Fredo Rodriguez MD) MSSA bacteremia (Acute) Osteomyelitis (Acute) Postoperative day #1 partial left third toe amputation, stable without signs of acute infection; procedure was performed secondary to osteomyelitis, chronic ulceration, and hammertoe deformity Diabetes with neuropathy Malnutrition suspected Bacteremia / sepsis resolving Other comorbidities: RAFA, endocarditis work up, acute hypoxic respiratory insufficiency Onychomycosis I reviewed and discussed his case. His vitals are stable and he remains afebrile. He does not have any leukocytosis this morning. His repeat blood cultures are negative so far. Bone clearance fragment from surgery does not demonstrate any bacterial growth so far in the pathology specimen evaluation is pending. The surgical site appears clinically stable with a viable flap. A new dressing of Betadine gauze and Evin roll was applied; to keep this intact until follow-up visit. To heel weight-bear and surgical shoe. To continue on IV cefazolin per infectious disease which is greatly appreciated. Continued proper glycemic control nutritional supplementation to optimize healing. Anticipated healing time management was discussed. To continue anticoagulation medication. I will continue to follow him weekly while in house. Upon discharge, I recommend he follows up at the [facility]; call [phone]. Medical management and DVT prophylaxis per primary team is greatly appreciated. Please not hesitate to call if you have any questions. His long thick dystrophic toenails (right 1, 2, 3, 4, 5 and left 1, 4, 5) were debrided with a nail nipper in length and thickness without incident. He tolerated this well. Nail changes may be secondary to nail fungus or nail m icrotrauma. He elects to proceed only with palliative care at this time because he is not able to perform this safely on his own and he has medical risk factors. Jemima Barnett DPM, [facility] [phone]
--- NOTE | 2018-09-13 11:08 | PCM.DC.POD ---
Weight Bearing Status: Partial weight bearing - heel with left surgical shoe Call your doctor if your incision/area has: Continuous Slow Oozing, Sudden Increased Bleeding, Increased Pain/ Swelling, Increased Redness, Foul Smelling Discharge, Swelling at the incision site Call your doctor if you observe: Fever of 101 or Higher, Calf discomfort, Uncontrolled pain Cleanse incision/area with: Keep Dressing Clean & Dry Allergies/Adverse Reactions: Allergies Penicillins [PCN] Allergy (Verified 09/09/18 10:52) Unknown Medications to take at Discharge Nitroglycerin (INPATIENT USE) [Nitrostat] 0.4 mg SUBLINGUAL Q5M PRN #20 tab 05/21/18 atorvastatin 80 mg tablet 80 mg PO QHS 07/24/18 glimepiride 2 mg tablet 1 mg PO DAILY tab 07/24/18 pantoprazole 40 mg tablet,delayed release 40 mg PO DAILY 07/24/18 furosemide 20 mg tablet 20 mg PO DAILY PRN PRN 07/25/18 Amlodipine Besylate 10 mg PO DAILY 09/09/18 Aspirin E.C. [Ecotrin] 81 mg PO DAILY@0800 09/09/18 Lisinopril [Zestril] 20 mg PO BID 09/09/18 Primary Care Physician: Delgado Smith [Primary Care Provider] - Test Results: Test results from this visit will be discussed in further detail at your follow-up appointment, if applicable. Please Follow Up With: Delgado Smith Please Follow Up With: Jemima Barnett DPM When: [facility] next (09/18/18); call [phone] if concerns.
--- NOTE | 2018-09-13 11:11 | DCINST_ITS ---
Weight Bearing Status: Partial weight bearing - heel with left surgical shoe Call your doctor if your incision/area has: Continuous Slow Oozing, Sudden Increased Bleeding, Increased Pain/ Swelling, Increased Redness, Foul Smelling Discharge, Swelling at the incision site Call your doctor if you observe: Fever of 101 or Higher, Calf discomfort, Uncontrolled pain Cleanse incision/area with: Keep Dressing Clean & Dry Allergies/Adverse Reactions: Allergies Penicillins [PCN] Allergy (Verified 09/09/18 10:52) Unknown Medications to take at Discharge Nitroglycerin (INPATIENT USE) [Nitrostat] 0.4 mg SUBLINGUAL Q5M PRN #20 tab 05/21/18 atorvastatin 80 mg tablet 80 mg PO QHS 07/24/18 glimepiride 2 mg tablet 1 mg PO DAILY tab 07/24/18 pantoprazole 40 mg tablet,delayed release 40 mg PO DAILY 07/24/18 furosemide 20 mg tablet 20 mg PO DAILY PRN PRN 07/25/18 Amlodipine Besylate 10 mg PO DAILY 09/09/18 Aspirin E.C. [Ecotrin] 81 mg PO DAILY@0800 09/09/18 Lisinopril [Zestril] 20 mg PO BID 09/09/18 Primary Care Physician: Dlegado Smith [Primary Care Provider] - Test Results: Test results from this visit will be discussed in further detail at your follow- up appointment, if applicable. Please Follow Up With: Delgado Smith Please Follow Up With: Jemima Barnett DPM When: [facility] (09/18/18); call [phone] if concerns.
[2018-09-13] MEDS: 0.9% NaCl Peripheral Flush Adult/Peds IV (11:53)
[2018-09-13] MEDS: Insulin Lispro 100 UNIT/ML INSULN.PEN SQ ×3 (11:56→22:18)
[2018-09-13 12:36] LABS: Bedside Glucose 160 mg/dL (70-110)
--- NOTE | 2018-09-13 13:34 | PN.CARD_ITS ---
Subjectve: The patient appears to be resting comfortably at this time. He has no acute symptoms and appears to be in no acute distress. Objective: Vital Signs Temp Pulse Resp BP Pulse Ox 98.5 F 87 16 164/79 H 94 09/13/18 07:38 09/13/18 11:52 09/13/18 11:36 09/13/18 11:49 09/13/18 07:38 Oxygen Flow Rate (L/min) 3 Oxygen Delivery Method Room Air Weight: 220 lb 7.396 oz Body Mass Index (BMI) 29.0 Intake and Output for Last 24 Hours 09/11/18 09/12/18 09/13/18 23:59 23:59 23:59 Intake Total 4497 / 4497 4353 / 4353 2249 / 2249 Output Total 1925 / 1925 850 / 850 1325 / 1325 Balance 2572 / 2572 3503 / 3503 924 / 924 General: Awake, Alert, Oriented x 3, Cooperative, No Acute Distress HEENT: Atraumatic, Normocephalic, PERRL, EOMI, Sclera Non Icteric Oral: Moist Mucosa Neck: Supple, Good ROM, No JVD Lungs: Clear to auscultation Cardiovascular: Regular Rhythm, Normal S1, Normal S2 Abdomen: Bowel Sounds Present, Soft, Non Tender Extremities: - - Left foot in a surgical wrap and surgical boot Psych/Mental Status: Appropriate 09/13/18 08:00: Sodium 132 L, Potassium 3.5, Chloride 99, Carbon Dioxide 24.0, Anion Gap 9, BUN 18, Creatinine 1.10, Est GFR (MDRD) Af Amer 88, Est GFR (MDRD) Non-Af 73, BUN/Creatinine Ratio 16.4, Glucose 122 H, Calcium 8.0 L Rhythm: EKG: ECHO: Stress Test: Cardiac Cath: PCI: CT Surgery: Holter monitor: EPS: PPM: CXR: Chest CT Scan: Medical Necessity - Tobacco Use Smoking Status: Never smoker Tobacco Use: Non-smoker Assessment/Plan 1. Bacteremia The patient has been found to have bacteremia. The patient was also found to have an abnormal transthoracic echocardiogram with concerns of a possible aortic valve mobile mass/vegetation. The patient is now status post his left third toe partial amputation. He is continuing postoperative care. The patient is continuing IV antibiotic therapy. The patient will continue to be followed as deemed appropriate. He will be tentatively scheduled for a transesophageal echocardiogram on 09-15-18 to further assess his valvular anatomy for any obvious evidence of vegetative lesions. 2. CAD status post CABG The patient will continue medical management. At the moment that he does not appear he requires further diagnostic studies or therapeutic intervention with respect to his underlying CAD status. 3. Postoperative atrial fibrillation The patient appears to be remaining in a regular rhythm at this time. He will continue to be followed for any obvious adverse rhythm related issues. 4. Hyperlipidemia The patient will continue medical management. 5. Hypertension The patient will continue to have his blood pressure monitored. His medications can be adjusted over time as deemed appropriate. 6. Status post left third toe partial amputation The patient will continue under the care of internal medicine, podiatry, etc. as deemed appropriate. Comment: The patient's case was discussed reviewed with the patient and the [facility] staff. This note was generated with [employer] dictation software. It may contain incorrect words, spelling, and punctuation that were not noted in checking the note before signing.
[2018-09-13 16:36] LABS: Bedside Glucose 174 mg/dL (70-110)
[2018-09-13] MEDS: Atorvastatin Calcium 80 MG Tablet PO (22:11)
[2018-09-13 22:41] LABS: Bedside Glucose 181 mg/dL (70-110)
[2018-09-14] VITALS (8 sets, daily range): BP systolic 150–167; BP diastolic 72–84; PULSE 78–90; RESP 16–18; TEMP 36.8–37.3; O2SAT 94–97
[2018-09-14] MEDS: oxyCODONE 5 MG Tablet PO ×5 (03:12→23:56)
[2018-09-14] MEDS: Heparin Injection (Vial) 5,000 UNIT/ML VIAL 5000 UNIT SC ×3 (06:43→21:45)
[2018-09-14] MEDS: Cefazolin 2 GM in 0.9% Normal Saline 100 ML IV ×3 (06:43→21:51)
[2018-09-14] MEDS: Acetaminophen 500 MG Tablet 1000 MG PO ×3 (06:43→21:47)
[2018-09-14] MEDS: 0.9% NaCl Peripheral Flush Adult/Peds IV ×3 (06:43→23:57)
[2018-09-14] MEDS: cycloBENZAPRine HCl 5 MG TABLET PO ×3 (06:43→21:46)
[2018-09-14 06:56] LABS: Bedside Glucose 136 mg/dL (70-110)
[2018-09-14] MEDS: Ipratropium/Albuterol Sulfate 3 ML AMPUL.NEB INHALATION ×4 (07:04→19:04)
--- NOTE | 2018-09-14 07:32 | PN_ITS ---
Patient Problems: Active and Suspected Problems (Last Reviewed 07/25/18 @ 08:52 by Fredo Rodriguez MD) MSSA bacteremia (Acute) Osteomyelitis (Acute) Subjective: The patient was seen and examined at the bedside this morning. Events from the last 24 hours have been reviewed. The patient is currently afebrile, hemodynamically stable and maintaining appropriate oxygen saturations on room air. Sitting in bedside recliner without any acute complaints. Objective: The patient's most recent lab work, culture data and imaging studies have all been personally reviewed. Blood and wound cultures were positive for MSSA. Surface echocardiogram revealed evidence of stage III diastolic dysfunction with an ejection fraction of 65%. There was evidence of a possible aortic valve vegetation. Repeat blood cultures are pending. - Physical Exam General: Alert, Cooperative, No apparent distress HEENT: Atraumatic, PERRLA, Normocephalic Oral: No Gingival or Mucosal Lesions/ Ulcerations Neck: Supple, No Nodes, Trachea Midline Lungs: No rhonchi, No wheeze, No rales, Diminished Cardiovascular: Regular rate, Regular Rhythm, Normal S1, Normal S2 Abdomen: Bowel Sounds Present, Soft, Non Tender Extremities: No clubbing, No cyanosis, - - Left foot wrap in place Skin: - - No significant change from previous. Musculoskeletal: No Muscle Wasting Lymphatic: No Cervical, Supraclavicular, or Inguinal Adenopathy Neurological: Neuro grossly intact Psych/Mental Status: Normal Affect, Appropriate Vital Signs Temp Pulse Resp BP Pulse Ox 98.2 F 83 18 158/84 H 94 09/14/18 03:05 09/14/18 03:05 09/14/18 03:05 09/14/18 03:05 09/14/18 03:05 Oxygen Flow Rate (L/min) 3 Oxygen Delivery Method Room Air Weight: 220 lb 7.396 oz Body Mass Index (BMI) 29.0 Intake and Output for Last 24 Hours 09/12/18 09/13/18 09/14/18 23:59 23:59 23:59 Intake Total 4353 / 4353 2249 / 2249 1012 / 1012 Output Total 850 / 850 2675 / 2675 1125 / 1125 Balance 3503 / 3503 -426 / -426 -113 / -113 Microbiology Past 72 Hours 09/12/18 16:47 Gram Stain - Final Biopsy - Toe Wound Culture - Final Staphylococcus aureus 09/12/18 16:47 Gram Stain - Final Biopsy - Toe Wound Culture - Preliminary No growth-Final to follow 09/11/18 08:06 Blood Culture - Preliminary Blood Culture (Wb) - Anticubital Left No growth in 48 hours. 09/11/18 08:02 Blood Culture - Preliminary Blood Culture (Wb) - Right Forearm No growth in 48 hours. 09/11/18 Unknown Gram Stain - Final Wound - Toe Wound Culture - Final Staphylococcus aureus 09/10/18 08:50 Blood Culture - Preliminary Blood Culture (Wb) - Right Forearm Staphylococcus aureus 09/10/18 08:54 Blood Culture - Preliminary Blood Culture (Wb) - Anticubital Left Staphylococcus aureus 09/09/18 11:45 Blood Culture - Final Blood Culture (Wb) - Anticubital Right Staphylococcus aureus 09/09/18 11:35 Bacteria Detection (PCR) - Final Blood Culture (Wb) - Left Forearm Staphylococcus aureus Blood Culture - Final Staphylococcus aureus Laboratory Tests Past 24 Hrs 09/13/18 08:00 Sodium 132 L Potassium 3.5 Chloride 99 Carbon Dioxide 24.0 Anion Gap 9 BUN 18 Creatinine 1.10 Estim Creat Clear Calc 80.71 Est GFR (MDRD) Af Amer 88 Est GFR (MDRD) Non-Af 73 BUN/Creatinine Ratio 16.4 Glucose 122 H Calcium 8.0 L POC Glucose 09/14/18 09/13/18 09/13/18 06:50 22:17 16:30 POC Glucose 136 H 181 H 174 H 09/13/18 09/13/18 11:54 06:38 POC Glucose 160 H 141 H Clinical Impression(s) from Imaging Studies Chest CTA 09/09/18 11:18 IMPRESSION: Mild degree of increased markings at the lung bases suggestive of scarring. Electronically Signed: Emir Kwan, at 12:53 EDT , Service support , Abdomen/Pelvis CT 09/09/18 17:12 IMPRESSION: No acute abdominal or pelvic pathology demonstrated on this noncontrast CT. Electronically Signed: Ezekiel Lozano, at 17:57 EDT Tel , Service support , ADDENDUM: 09/09/18 1808 Mandible X-Ray 09/10/18 15:37 IMPRESSION: No mandibular fracture or evidence of infection identified. If indicated, further evaluation with CT can be performed. Moderate degenerative changes with mild subluxation at the C3-C4 level. Correlate clinically. Electronically Signed: Ezekiel Lozano, at 17:39 EDT Tel , Service support , Foot X-Ray 09/10/18 16:00 IMPRESSION: No fracture or dislocation. Degenerative changes described above. No evidence of infection. Electronically Signed: Ezekiel Lozano, at 17:18 EDT Tel , Service support , Lower Extremity MRI 09/11/18 07:27 IMPRESSION: Signal alteration of the third distal phalanx suggestive of osteomyelitis. Edema in the subcutis adipose space without demonstrated soft tissue abscess. 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 Mild edema in the intrinsic muscles of the forefoot suggestive of myositis. Intermetatarsal neuroma of the second webspace. Electronically Signed: Arvind Frey MD at 10:13 EDT Tel , Service support , Lumbar Spine X-Ray 09/11/18 10:20 IMPRESSION: Degenerative changes of the spine, as detailed above. Electronically Signed: Emir Kwan, at 15:30 EDT , Service support , Foot X-Ray 09/12/18 15:15 IMPRESSION: As above Electronically Signed: Jarred Grant DO at 18:13 EDT Tel , Service support , Medical Necessity - Tobacco Use Smoking Status: Never smoker Tobacco Use: Non-smoker Assessment/Plan All Active Problems (Last Reviewed 07/25/18 @ 08:52 by Fredo Rodriguez MD) MSSA bacteremia (Acute) Osteomyelitis (Acute) RECOMMENDATIONS: 1. Continue antimicrobial coverage per ID recommendations. 2. Await transesophageal echocardiogram. 3. Encourage aggressive incentive spirometer use and mobilize patient as tolerated. IMPRESSIONS: 1. Severe sepsis due to MSSA bacteremia from left third toe osteomyelitis Continue current supportive measures, along with antibiotics per infectious diseases recommendations. Continue local wound care. Cardiology following with plans for possible BRODY. 2. Coronary artery disease status post CABG/diabetes mellitus/hypertension/heart failure with preserved ejection fraction Complicates care, management, recovery and prognosis. Continue current supportive measures. This note was generated with [employer] dictation software. It may contain incorrect words, spelling, and punctuation that were not noted in checking the note before signing. DISPOSITION: Given the patient's lack of ICU/pulmonary needs, will sign off. Please call with any additional questions. Code Visit Inpatient E&M: 97403 Subs Hosp L2
[2018-09-14] MEDS: Pantoprazole Sodium 40 MG Tablet PO (09:35)
[2018-09-14] MEDS: amLODIPine 10 MG Tablet PO (09:35)
[2018-09-14] MEDS: Lisinopril 20 MG Tablet PO ×2 (09:36→21:46)
[2018-09-14] MEDS: Aspirin E.C. 81 MG Tablet PO (09:36)
[2018-09-14] MEDS: Docusate Sodium 100 MG Capsule 200 MG PO (10:03)
--- NOTE | 2018-09-14 10:53 | PCM.PN.CARD ---
Subjectve: The patient is awake and alert. He states he is feeling a little better each day. He denies any acute chest discomfort or difficulty breathing. He has been up and ambulating with his surgical boot. Objective: Vital Signs Temp Pulse Resp BP Pulse Ox 98.5 F 88 18 167/76 H 94 09/14/18 09:27 09/14/18 09:27 09/14/18 09:27 09/14/18 09:27 09/14/18 09:27 Oxygen Flow Rate (L/min) 3 Oxygen Delivery Method Room Air Weight: 220 lb 7.396 oz Body Mass Index (BMI) 29.0 Intake and Output for Last 24 Hours 09/12/18 09/13/18 09/14/18 23:59 23:59 23:59 Intake Total 4353 / 4353 2249 / 2249 1012 / 1012 Output Total 850 / 850 2675 / 2675 1125 / 1125 Balance 3503 / 3503 -426 / -426 -113 / -113 General: Awake, Alert, Oriented x 3, Cooperative, No Acute Distress HEENT: Atraumatic, Normocephalic, PERRL, EOMI, Sclera Non Icteric Oral: Moist Mucosa Neck: Supple, Good ROM, No JVD Lungs: Rales - Brian Bases - Mild Cardiovascular: Regular Rhythm, Normal S1, Normal S2 Abdomen: Bowel Sounds Present, Soft, Non Tender Extremities: - - Left foot: Surgical wrapped in surgical boot Psych/Mental Status: Appropriate Medical Necessity - Tobacco Use Smoking Status: Never smoker Tobacco Use: Non-smoker Assessment/Plan 1. Bacteremia The patient has been found to have bacteremia. The patient was also found to have an abnormal transthoracic echocardiogram with concerns of a possible aortic valve mobile mass/vegetation. The patient is now status post his left third toe partial amputation. He is continuing postoperative care. The patient is continuing IV antibiotic therapy. The patient will continue to be followed as deemed appropriate. He will be scheduled for a transesophageal echocardiogram on 09-15-18 to further assess his valvular anatomy for any obvious evidence of vegetative lesions. 2. CAD status post CABG The patient will continue medical management. At the moment that he does not appear he requires further diagnostic studies or therapeutic intervention with respect to his underlying CAD status. 3. Postoperative atrial fibrillation The patient appears to be remaining in a regular rhythm at this time. He will continue to be followed for any obvious adverse rhythm related issues. 4. Hyperlipidemia The patient will continue medical management. 5. Hypertension The patient will continue to have his blood pressure monitored. His medications can be adjusted over time as deemed appropriate. This will include restarting his diuretic therapy which may also benefit what appears to be mild bibasilar rales. 6. Status post left third toe partial amputation The patient will continue under the care of internal medicine, podiatry, etc. as deemed appropriate. Comment: The patient's case was discussed reviewed with the patient and the [facility] staff. This note was generated with [employer] dictation software. It may contain incorrect words, spelling, and punctuation that were not noted in checking the note before signing.
[2018-09-14] MEDS: Insulin Lispro 100 UNIT/ML INSULN.PEN SQ ×3 (12:02→21:48)
[2018-09-14] MEDS: Furosemide 20 MG Tablet PO (12:05)
--- NOTE | 2018-09-14 13:37 | PCM.PN.HOSP ---
Patient Problems: Active and Suspected Problems (Last Reviewed 07/25/18 @ 08:52 by Fredo Rodriguez MD) MSSA bacteremia (Acute) Osteomyelitis (Acute) Subjective: Feels good. No new complaints. Vitals/I&O's: Vital Signs Temp Pulse Resp BP Pulse Ox 36.9 C 90 16 167/76 H 94 09/14/18 09:27 09/14/18 10:42 09/14/18 10:42 09/14/18 09:27 09/14/18 09:27 Oxygen Flow Rate (L/min) 3 Oxygen Delivery Method Room Air Weight: 100 kg Body Mass Index (BMI) 29.0 Intake and Output for Last 24 Hours 09/12/18 09/13/18 09/14/18 23:59 23:59 23:59 Intake Total 4353 / 4353 2249 / 2249 1680 / 1680 Output Total 850 / 850 2675 / 2675 1125 / 1125 Balance 3503 / 3503 -426 / -426 555 / 555 General: Alert, No apparent distress HEENT: Atraumatic, Normocephalic Oral: Moist Mucosa, No Gingival or Mucosal Lesions/ Ulcerations Neck: No Nodes, Thyroid Normal Size and Texture Lungs: Clear to auscultation, Normal air movement Cardiovascular: Regular rate, Regular Rhythm, Normal S1, Normal S2 Abdomen: Bowel Sounds Present, Soft, Non Tender, Non-Distended, No Hepato-splenomegaly Extremities: No edema, No Calf Tenderness Skin: No rashes, No breakdown Psych/Mental Status: Normal Affect, Appropriate Microbiology Past 72 Hours 09/12/18 12:32 Blood Culture (Wb) - Anticubital Left Blood Culture - Preliminary No growth in 48 hours. 09/12/18 16:47 Biopsy - Toe Gram Stain - Final 09/12/18 16:47 Biopsy - Toe Wound Culture - Final Staphylococcus aureus 09/12/18 16:47 Biopsy - Toe Gram Stain - Final 09/12/18 16:47 Biopsy - Toe Wound Culture - Preliminary No growth-Final to follow 09/11/18 08:06 Blood Culture (Wb) - Anticubital Left Blood Culture - Preliminary No growth in 48 hours. 09/11/18 08:02 Blood Culture (Wb) - Right Forearm Blood Culture - Preliminary No growth in 48 hours. 09/11/18 Unknown Wound - Toe Gram Stain - Final 09/11/18 Unknown Wound - Toe Wound Culture - Final Staphylococcus aureus 09/10/18 08:50 Blood Culture (Wb) - Right Forearm Blood Culture - Preliminary Staphylococcus aureus 09/10/18 08:54 Blood Culture (Wb) - Anticubital Left Blood Culture - Preliminary Staphylococcus aureus 09/09/18 11:45 Blood Culture (Wb) - Anticubital Right Blood Culture - Final Staphylococcus aureus 09/09/18 11:35 Blood Culture (Wb) - Left Forearm Bacteria Detection (PCR) - Final Staphylococcus aureus 09/09/18 11:35 Blood Culture (Wb) - Left Forearm Blood Culture - Final Staphylococcus aureus Laboratory Results 09/13/18 16:30: POC Glucose 174 H 09/13/18 22:17: POC Glucose 181 H 09/14/18 06:50: POC Glucose 136 H Current Medications Acetaminophen (Tylenol) 1,000 mg PO Q8 [facility] Last Admin: 09/14/18 06:43 Dose: 1,000 mg Albuterol Sulfate (Ventolin Aerosols) 2.5 mg INHALATION Q2H PRN PRN Reason: SOB &/OR WHEEZING Last Admin: 09/11/18 04:38 Dose: 2.5 mg Albuterol/Ipratropium (Duoneb) 3 ml INHALATION Q4HWA.RT [facility] Last Admin: 09/14/18 10:42 Dose: 3 ml Amlodipine Besylate (Norvasc) 10 mg PO DAILY [facility] Last Admin: 09/14/18 09:35 Dose: 10 mg Aspirin (Ecotrin) 81 mg PO DAILY@0800 [facility] Last Admin: 09/14/18 09:36 Dose: 81 mg Atorvastatin Calcium (Lipitor) 80 mg PO QHS [facility] Last Admin: 09/13/18 22:11 Dose: 80 mg Cyclobenzaprine HCl (Cyclobenzaprine Hcl) 5 mg PO TID [facility] Last Admin: 09/14/18 06:43 Dose: 5 mg Dextrose (D50w Syringe) 0 gm IV X1 PRN; Protocol PRN Reason: Hypoglycemia Docusate Sodium (Colace) 200 mg PO BID PRN PRN PRN Reason: Constipation Last Admin: 09/14/18 10:03 Dose: 200 mg Furosemide (Lasix) 20 mg PO DAILY [facility] Last Admin: 09/14/18 12:05 Dose: 20 mg Glucagon () 1 mg IM .X1 PRN PRN Reason: Hypoglycemia Guaifenesin (Mucinex) 1,200 mg PO BID PRN PRN PRN Reason: COUGH Heparin Sodium (Porcine) (Heparin Na) 5,000 unit SC Q8 [facility] Last Admin: 09/14/18 06:43 Dose: 5,000 unit Hydralazine HCl (Apresoline Iv) 5 mg IV Q4H PRN PRN PRN Reason: Systolic BP >160 Last Admin: 09/13/18 11:52 Dose: 5 mg Hydroxyzine Pamoate (Vistaril Pamoate Capsule) 50 mg PO Q6H PRN PRN Reason: ANXIETY Last Admin: 09/11/18 08:00 Dose: 50 mg Cefazolin Sodium 2 gm/ Sodium (Chloride) 110 mls @ 150 mls/hr IV Q8 [facility] Last Admin: 09/14/18 06:43 Dose: 150 mls/hr Sodium Chloride () 1,000 mls @ 0 mls/hr IV .Q0M [facility] Insulin Human Lispro (Humalog Kwikpen (Bkc)) 0 unit SQ ACHS [facility]; Protocol Last Admin: 09/14/18 12:02 Dose: 1 u Lisinopril (Zestril) 20 mg PO BID [facility] Last Admin: 09/14/18 09:36 Dose: 20 mg Melatonin (Melatonin) 3 mg PO QHS PRN PRN Reason: INSOMNIA Last Admin: 09/10/18 21:52 Dose: 3 mg Nitroglycerin (Nitrostat) 0.4 mg SUBLINGUAL Q5M PRN PRN Reason: CARDIAC/CHEST PAIN Nutritional Formula (Sujit - [place] Flavor) [facility] Last Admin: 09/14/18 09:36 Dose: 1 packet Ondansetron HCl (Zofran) 4 mg IV Q8H PRN PRN PRN Reason: NAUSEA/VOMITING Oxycodone HCl (Oxyir) 5 mg PO Q4H PRN PRN PRN Reason: SEVERE PAIN (6-10/10) Last Admin: 09/14/18 09:35 Dose: 5 mg Pantoprazole Sodium (Protonix) 40 mg PO DAILY [facility] Last Admin: 09/14/18 09:35 Dose: 40 mg Sodium Chloride () 5 - 15 ml IV UD PRN PRN Reason: SALINE FLUSH Last Admin: 09/14/18 06:43 Dose: 10 ml Medical Necessity - Tobacco Use Smoking Status: Never smoker Tobacco Use: Non-smoker Assessment/Plan All Active Problems (Last Reviewed 07/25/18 @ 08:52 by Fredo Rodriguez MD) MSSA bacteremia (Acute) Osteomyelitis (Acute) 1. Sepsis POA 2/2 bacteremia and osteomyelitis +/- endocarditis no pneumonia on CT--ruled out improving 2. Bacteremia: S. aureus likely from OM on cefazolin repeat BCx 09/10 still +, repeat again 09/11 so far negative. 2/2 3rd toe osteomyelitis +/- endocarditis will need PICC 3. Left 3rd toe osteomyelitis likely source of #[address] Barnett of podiatry DW patient about MRI findings and mentioned that he may require an amputation Biopsy showing MSSA from 09/12 4. possible endocarditis mobile mass on right coronary cusp cefazolin for 6 weeks BRODY for 09/15 5. RAFA resolved may be due to IV contrast from CTA (doubt due to vancomycin as it was given during the blood draw for the lab) 6. hyponatremia improved review of medications shows no obvious culprit monitor 7. Acute hypoxic respiratory insufficiency still requiring oxygen no PNA, PE monitor wean oxygen as tolerated 8. VTE prophy: SQ heparin. Code Visit Inpatient E&M: 09780 Subs Hosp L2
--- NOTE | 2018-09-14 13:40 | PN_ITS ---
Patient Problems: Active and Suspected Problems (Last Reviewed 07/25/18 @ 08:52 by Fredo Rodriguez MD) MSSA bacteremia (Acute) Osteomyelitis (Acute) Subjective: Feels good. No new complaints. Vitals/I&O's: Vital Signs Temp Pulse Resp BP Pulse Ox 36.9 C 90 16 167/76 H 94 09/14/18 09:27 09/14/18 10:42 09/14/18 10:42 09/14/18 09:27 09/14/18 09:27 Oxygen Flow Rate (L/min) 3 Oxygen Delivery Method Room Air Weight: 100 kg Body Mass Index (BMI) 29.0 Intake and Output for Last 24 Hours 09/12/18 09/13/18 09/14/18 23:59 23:59 23:59 Intake Total 4353 / 4353 2249 / 2249 1680 / 1680 Output Total 850 / 850 2675 / 2675 1125 / 1125 Balance 3503 / 3503 -426 / -426 555 / 555 General: Alert, No apparent distress HEENT: Atraumatic, Normocephalic Oral: Moist Mucosa, No Gingival or Mucosal Lesions/ Ulcerations Neck: No Nodes, Thyroid Normal Size and Texture Lungs: Clear to auscultation, Normal air movement Cardiovascular: Regular rate, Regular Rhythm, Normal S1, Normal S2 Abdomen: Bowel Sounds Present, Soft, Non Tender, Non-Distended, No Hepato- splenomegaly Extremities: No edema, No Calf Tenderness Skin: No rashes, No breakdown Psych/Mental Status: Normal Affect, Appropriate Microbiology Past 72 Hours 09/12/18 12:32 Blood Culture (Wb) - Anticubital Left Blood Culture - Preliminary No growth in 48 hours. 09/12/18 16:47 Biopsy - Toe Gram Stain - Final 09/12/18 16:47 Biopsy - Toe Wound Culture - Final Staphylococcus aureus 09/12/18 16:47 Biopsy - Toe Gram Stain - Final 09/12/18 16:47 Biopsy - Toe Wound Culture - Preliminary No growth-Final to follow 09/11/18 08:06 Blood Culture (Wb) - Anticubital Left Blood Culture - Preliminary No growth in 48 hours. 09/11/18 08:02 Blood Culture (Wb) - Right Forearm Blood Culture - Preliminary No growth in 48 hours. 09/11/18 Unknown Wound - Toe Gram Stain - Final 09/11/18 Unknown Wound - Toe Wound Culture - Final Staphylococcus aureus 09/10/18 08:50 Blood Culture (Wb) - Right Forearm Blood Culture - Preliminary Staphylococcus aureus 09/10/18 08:54 Blood Culture (Wb) - Anticubital Left Blood Culture - Preliminary Staphylococcus aureus 09/09/18 11:45 Blood Culture (Wb) - Anticubital Right Blood Culture - Final Staphylococcus aureus 09/09/18 11:35 Blood Culture (Wb) - Left Forearm Bacteria Detection (PCR) - Final Staphylococcus aureus 09/09/18 11:35 Blood Culture (Wb) - Left Forearm Blood Culture - Final Staphylococcus aureus Laboratory Results 09/13/18 16:30: POC Glucose 174 H 09/13/18 22:17: POC Glucose 181 H 09/14/18 06:50: POC Glucose 136 H Current Medications Acetaminophen (Tylenol) 1,000 mg PO Q8 [facility] Last Admin: 09/14/18 06:43 Dose: 1,000 mg Albuterol Sulfate (Ventolin Aerosols) 2.5 mg INHALATION Q2H PRN PRN Reason: SOB &/OR WHEEZING Last Admin: 09/11/18 04:38 Dose: 2.5 mg Albuterol/Ipratropium (Duoneb) 3 ml INHALATION Q4HWA.RT [facility] Last Admin: 09/14/18 10:42 Dose: 3 ml Amlodipine Besylate (Norvasc) 10 mg PO DAILY [facility] Last Admin: 09/14/18 09:35 Dose: 10 mg Aspirin (Ecotrin) 81 mg PO DAILY@0800 [facility] Last Admin: 09/14/18 09:36 Dose: 81 mg Atorvastatin Calcium (Lipitor) 80 mg PO QHS [facility] Last Admin: 09/13/18 22:11 Dose: 80 mg Cyclobenzaprine HCl (Cyclobenzaprine Hcl) 5 mg PO TID [facility] Last Admin: 09/14/18 06:43 Dose: 5 mg Dextrose (D50w Syringe) 0 gm IV X1 PRN; Protocol PRN Reason: Hypoglycemia Docusate Sodium (Colace) 200 mg PO BID PRN PRN PRN Reason: Constipation Last Admin: 09/14/18 10:03 Dose: 200 mg Furosemide (Lasix) 20 mg PO DAILY [facility] Last Admin: 09/14/18 12:05 Dose: 20 mg Glucagon () 1 mg IM .X1 PRN PRN Reason: Hypoglycemia Guaifenesin (Mucinex) 1,200 mg PO BID PRN PRN PRN Reason: COUGH Heparin Sodium (Porcine) (Heparin Na) 5,000 unit SC Q8 [facility] Last Admin: 09/14/18 06:43 Dose: 5,000 unit Hydralazine HCl (Apresoline Iv) 5 mg IV Q4H PRN PRN PRN Reason: Systolic BP >160 Last Admin: 09/13/18 11:52 Dose: 5 mg Hydroxyzine Pamoate (Vistaril Pamoate Capsule) 50 mg PO Q6H PRN PRN Reason: ANXIETY Last Admin: 09/11/18 08:00 Dose: 50 mg Cefazolin Sodium 2 gm/ Sodium (Chloride) 110 mls @ 150 mls/hr IV Q8 [facility] Last Admin: 09/14/18 06:43 Dose: 150 mls/hr Sodium Chloride () 1,000 mls @ 0 mls/hr IV .Q0M [facility] Insulin Human Lispro (Humalog Kwikpen (Bkc)) 0 unit SQ ACHS [facility]; Protocol Last Admin: 09/14/18 12:02 Dose: 1 u Lisinopril (Zestril) 20 mg PO BID [facility] Last Admin: 09/14/18 09:36 Dose: 20 mg Melatonin (Melatonin) 3 mg PO QHS PRN PRN Reason: INSOMNIA Last Admin: 09/10/18 21:52 Dose: 3 mg Nitroglycerin (Nitrostat) 0.4 mg SUBLINGUAL Q5M PRN PRN Reason: CARDIAC/CHEST PAIN Nutritional Formula ([facility]it - [place] Fl[facility]) [facility] Last Admin: 09/14/18 09:36 Dose: 1 packet Ondansetron HCl (Zofran) 4 mg IV Q8H PRN PRN PRN Reason: NAUSEA/VOMITING Oxycodone HCl (Oxyir) 5 mg PO Q4H PRN PRN PRN Reason: SEVERE PAIN (6-10/10) Last Admin: 09/14/18 09:35 Dose: 5 mg Pantoprazole Sodium (Protonix) 40 mg PO DAILY [facility] Last Admin: 09/14/18 09:35 Dose: 40 mg Sodium Chloride () 5 - 15 ml IV UD PRN PRN Reason: SALINE FLUSH Last Admin: 09/14/18 06:43 Dose: 10 ml Medical Necessity - Tobacco Use Smoking Status: Never smoker Tobacco Use: Non-smoker Assessment/Plan All Active Problems (Last Reviewed 07/25/18 @ 08:52 by Fredo Rodriguez MD) MSSA bacteremia (Acute) Osteomyelitis (Acute) 1. Sepsis * POA * 2/2 bacteremia and osteomyelitis +/- endocarditis * no pneumonia on CT--ruled out * improving 2. Bacteremia: * S. aureus likely from OM * on cefazolin * repeat BCx 09/10 still +, repeat again 09/11 so far negative. * 2/2 3rd toe osteomyelitis +/- endocarditis * will need PICC 3. Left 3rd toe osteomyelitis * likely source of #2 * DW Dr. Barnett of podiatry * DW patient about MRI findings and mentioned that he may require an amputation * Biopsy showing MSSA from 09/12 4. possible endocarditis * mobile mass on right coronary cusp * cefazolin for 6 weeks * BRODY for 09/15 5. RAFA * resolved * may be due to IV contrast from CTA (doubt due to vancomycin as it was given during the blood draw for the lab) 6. hyponatremia * improved * review of medications shows no obvious culprit * monitor 7. Acute hypoxic respiratory insufficiency * still requiring oxygen * no PNA, PE * monitor * wean oxygen as tolerated 8. VTE prophy: SQ heparin. Code Visit Inpatient E&M: 56460 Subs Hosp L2
[2018-09-14 13:51] LABS: Bedside Glucose 229 mg/dL (70-110)
[2018-09-14 18:25] LABS: Bedside Glucose 180 mg/dL (70-110)
[2018-09-14] MEDS: Atorvastatin Calcium 80 MG Tablet PO (21:46)
[2018-09-14 23:06] LABS: Bedside Glucose 194 mg/dL (70-110)
[2018-09-15] VITALS (12 sets, daily range): BP systolic 149–177; BP diastolic 76–88; PULSE 64–90; RESP 16–20; TEMP 36.7–37.1; O2SAT 93–97
[2018-09-15] MEDS: oxyCODONE 5 MG Tablet PO ×3 (04:12→19:31)
[2018-09-15] MEDS: cycloBENZAPRine HCl 5 MG TABLET PO ×3 (05:17→21:24)
[2018-09-15] MEDS: Acetaminophen 500 MG Tablet 1000 MG PO ×3 (05:17→21:23)
[2018-09-15] MEDS: Cefazolin 2 GM in 0.9% Normal Saline 100 ML IV ×3 (05:18→21:24)
[2018-09-15] MEDS: Heparin Injection (Vial) 5,000 UNIT/ML VIAL 5000 UNIT SC ×3 (05:25→21:24)
[2018-09-15 05:54] LABS: Anion Gap 11 (5-15); BUN 20 mg/dL (7-18); BUN/Creat Ratio 20.3 RATIO (10-20); Calcium,Total 8.7 mg/dL (8.5-10.1); Chloride 100 mmol/L (98-107); Creatinine, Serum 0.99 mg/dL (0.70-1.30); EST Glomerular Filtration Rate 82 mL/min (>60); Est Glom Filt Rate - Afr Amer 100 mL/min (>60); Estimated Creatinine Clearance 89.67 ml/min; Glucose 139 mg/dL (74-106); Potassium 3.6 mmol/L (3.5-5.1); Sodium Level 136 mmol/L (136-145)
[2018-09-15] MEDS: Ipratropium/Albuterol Sulfate 3 ML AMPUL.NEB INHALATION ×4 (06:57→19:16)
[2018-09-15 07:15] LABS: Bedside Glucose 132 mg/dL (70-110)
--- NOTE | 2018-09-15 11:55 | PN.CARD_ITS ---
Subjectve: Patient seen and evaluated. Appears to be stable. Objective: Vital Signs Temp Pulse Resp BP Pulse Ox 98.8 F 74 16 177/88 H 94 09/15/18 07:29 09/15/18 10:37 09/15/18 10:37 09/15/18 07:29 09/15/18 07:29 Oxygen Flow Rate (L/min) 3 Oxygen Delivery Method Room Air Weight: 223 lb 8.78 oz Body Mass Index (BMI) 29.0 Intake and Output for Last 24 Hours 09/13/18 09/14/18 09/15/18 23:59 23:59 23:59 Intake Total 2249 / 2249 2413 / 2413 1063 / 1063 Output Total 2675 / 2675 1475 / 1475 850 / 850 Balance -426 / -426 938 / 938 213 / 213 General: Awake, Alert, Oriented x 3 HEENT: PERRL, EOMI, Sclera Non Icteric Neck: Supple, Good ROM, No Lymph Node Enlargement Lungs: Clear to auscultation Cardiovascular: Regular Rhythm, Normal S1, Normal S2, No Murmurs, No Rubs, No Gallops Vascular: No Carotid Bruits, Normal Femoral Pulses, Normal Radial Pulses, Normal Dorsalis Pedal Pulse, Normal Posterior Tibial Pulses Abdomen: Bowel Sounds Present, Soft, Non Tender, No HSM, No Organomegaly Extremities: No Cyanosis, No Clubbing, No edema Musculoskeletal: No Erythema Lymphatic: No Lymph Node Enlargement Neurological: No Focal Motor or Sensory Deficit 09/15/18 05:18: Sodium 136, Potassium 3.6, Chloride 100, Carbon Dioxide 25.0, Anion Gap 11, BUN 20 H, Creatinine 0.99, Est GFR (MDRD) Af Amer 100, Est GFR (MDRD) Non-Af 82, BUN/Creatinine Ratio 20.3 H, Glucose 139 H, Calcium 8.7 Rhythm: EKG: ECHO: Stress Test: Cardiac Cath: PCI: CT Surgery: Holter monitor: EPS: PPM: CXR: Chest CT Scan: Medical Necessity - Tobacco Use Smoking Status: Never smoker Tobacco Use: Non-smoker Assessment/Plan 1. Bacteremia The patient has been found to have bacteremia. The patient was also found to have an abnormal transthoracic echocardiogram with concerns of a possible aortic valve mobile mass/vegetation. Patient underwent transesophageal echocardiogram today which did not demonstrate any evidence of vegetative lesion. 2. CAD status post CABG The patient will continue medical management. At the moment that he does not appear he requires further diagnostic studies or therapeutic intervention with respect to his underlying CAD status. 3. Postoperative atrial fibrillation The patient appears to be remaining in a regular rhythm at this time. He will continue to be followed for any obvious adverse rhythm related issues. 4. Hyperlipidemia The patient will continue medical management. 5. Hypertension The patient will continue to have his blood pressure monitored. His medications can be adjusted over time as deemed appropriate. This will include restarting his diuretic therapy which may also benefit what appears to be mild bibasilar rales. 6. Status post left third toe partial amputation The patient will continue under the care of internal medicine, podiatry, etc. as deemed appropriate. Comment: The patient's case was discussed reviewed with the patient and the [facility] hospitalist. This note was generated with [employer] dictation software. It may contain incorrect words, spelling, and punctuation that were not noted in checking the note before signing.
--- NOTE | 2018-09-15 12:40 | PN_ITS ---
Patient Problems: Active and Suspected Problems (Last Reviewed 07/25/18 @ 08:52 by Fredo Rodriguez MD) MSSA bacteremia (Acute) Osteomyelitis (Acute) Subjective: The patient is a 58-year-old male with a past medical history of coronary artery disease, CABG x3 vessels complicated by postop atrial fibrillation and hypertension who presented to the emergency department at [facility] on 09/09/2018 complaining of shortness of breath and fever. He additionally complained of right lower chest wall/abdominal wall tenderness and cough productive of white sputum. Temp in the emergency department was 100.6 ?F and the blood pressure was uncontrolled at 189/96. Pulse ox on room air was 85%. White blood cell count was 8.9 with a hemoglobin of 10.9 and normal platelets. Sodium was low at 127 and the BUN was 15 with a creatinine of 1.15. UA was unremarkable. CT scan of the chest showed mild increased markings in the bases which were thought to be secondary to scarring. On physical examination lungs were clear to auscultation and the heart had a regular rate and rhythm. He was admitted to the hospital with suspected community-acquired pneumonia and started on Levaquin and vancomycin. 2 of 2 blood cultures were positive for methicillin sensitive staph aureus on 09/09/2018. Blood cultures on 09/10 and were also positive for staph aureus. Blood culture from 09/12 had no growth in 48 hours and blood culture from 09/[address] Yuan was consulted to participate in management and found a ulceration/wound on the left third toe with swelling, redness and ulceration. An MRI of the left lower extremity showed signal alteration of the third distal phalanx on the left suggestive of osteomyelitis. Patient was seen in consultation by Dr. Barnett and she obtained a deep wound culture which was positive for methicillin sensitive staph aureus. There was deep probing of the wound with seropurulent drainage obtained and she recommended partial amputation of the distal phalanx of the third left toe. He was taken to the OR on 09/12/2018 for partial amputation. The distal phalanx is positive for MSSA but the clearance fragment as no growth after 48 hours. Because of MSSA bacteremia and echocardiogram was obtained on on 09/11/2018 and showed an ejection fraction of 65% with stage III diastolic dysfunction. The left atrium was moderately enlarged. An aortic valvular vegetation could not be ruled out. BRODY on 09/15/2018 was negative for vegetation. Tells me that he is feeling well today. He and his want him to go home today but, the PICC needs to be placed and the IV antibiotics ordered. - Physical Exam General: Alert, Oriented x3, Cooperative, No apparent distress Neck: Supple, No JVD, Negative Carotid Bruits Lungs: Diminished, - - he initially had coarse rales in the bases, L>R, but after several deep breaths these mostly resolved. no wheezes Cardiovascular: Regular rate, Regular Rhythm, Normal S1, Normal S2, No murmurs, No rub noted, No Gallop Abdomen: Bowel Sounds Present, Soft, Non Tender Extremities: No clubbing, No cyanosis, No edema, - - dressing in place Left foot Skin: - - he has several areas of what appears to be excoriation on the face and over the CABG scar.....they are scabbed and do not have any purulent DC. Denies pruritus. admits to having areas of actinic keratosis on the face Neurological: Cranial nerves II-XII grossly intact, Neuro grossly intact Psych/Mental Status: Normal Affect, Appropriate Vital Signs Temp Pulse Resp BP Pulse Ox 98.4 F 87 16 175/86 H 96 09/15/18 12:22 09/15/18 12:22 09/15/18 12:22 09/15/18 12:22 09/15/18 12:22 Oxygen Flow Rate (L/min) 3 Oxygen Delivery Method Room Air Weight: 223 lb 8.78 oz Body Mass Index (BMI) 29.0 Intake and Output for Last 24 Hours 09/13/18 09/14/18 09/15/18 23:59 23:59 23:59 Intake Total 2249 / 2249 2413 / 2413 1063 / 1063 Output Total 2675 / 2675 1475 / 1475 850 / 850 Balance -426 / -426 938 / 938 213 / 213 Microbiology Past 72 Hours 09/10/18 08:54 Blood Culture - Final Blood Culture (Wb) - Anticubital Left Staphylococcus aureus 09/10/18 08:50 Blood Culture - Final Blood Culture (Wb) - Right Forearm Staphylococcus aureus 09/11/18 Unknown Gram Stain - Final Wound - Toe Wound Culture - Final Staphylococcus aureus Anaerobic Culture - Preliminary Checking for anaerobes, further studies to follow. 09/12/18 16:47 Gram Stain - Final Biopsy - Toe Wound Culture - Preliminary No growth-Final to follow Anaerobic Culture - Preliminary No growth in 48 hours. 09/12/18 16:47 Gram Stain - Final Biopsy - Toe Wound Culture - Final Staphylococcus aureus Anaerobic Culture - Preliminary Checking for anaerobes, further studies to follow. 09/12/18 12:32 Blood Culture - Preliminary Blood Culture (Wb) - Anticubital Left No growth in 48 hours. 09/11/18 08:06 Blood Culture - Preliminary Blood Culture (Wb) - Anticubital Left No growth in 48 hours. 09/11/18 08:02 Blood Culture - Preliminary Blood Culture (Wb) - Right Forearm No growth in 48 hours. Laboratory Tests Past 24 Hrs 09/15/18 05:18 Sodium 136 Potassium 3.6 Chloride 100 Carbon Dioxide 25.0 Anion Gap 11 BUN 20 H Creatinine 0.99 Estim Creat Clear Calc 89.67 Est GFR (MDRD) Af Amer 100 Est GFR (MDRD) Non-Af 82 BUN/Creatinine Ratio 20.3 H Glucose 139 H Calcium 8.7 POC Glucose 09/15/18 09/14/18 09/14/18 06:35 21:45 16:30 POC Glucose 132 H 194 H 180 H 09/14/18 11:59 POC Glucose 229 H Medical Necessity - Tobacco Use Smoking Status: Never smoker Tobacco Use: Non-smoker Assessment/Plan All Active Problems (Last Reviewed 07/25/18 @ 08:52 by Fredo Rodriguez MD) MSSA bacteremia (Acute) Osteomyelitis (Acute) Impression 1. Sepsis with MSSA bacteremia from infected left 3rd toe with osteomyelitis in the distal phalanx. Clearance fragment at the time of surgery has no growth 2. possible Aortic valve vegetation on TTE but, not apparent on the BRODY today 3. HTN - not adequately controlled 4. Hyponatremia-resolved 5. Diabetes mellitus type [id number] with a hemoglobin A1c of 6.0 6. Coronary artery disease with history of CABG in May 2018 7. Actinic keratoses Add Lopressor 25 BID to better control the BP Supplement the K to keep the potassium around 4 Restart glimepiride in the a.m. at 2 mg daily PICC line today IV Ancef for a total of 4 weeks from the first negative blood culture Plan discharge 09/16/2018 Code Visit Inpatient E&M: 07580 Subs Hosp L2
[2018-09-15] MEDS: Aspirin E.C. 81 MG Tablet PO (13:17)
[2018-09-15] MEDS: amLODIPine 10 MG Tablet PO ×2 (13:17)
[2018-09-15] MEDS: Lisinopril 20 MG Tablet PO ×2 (13:18→21:23)
[2018-09-15] MEDS: Furosemide 20 MG Tablet PO (13:18)
[2018-09-15] MEDS: Pantoprazole Sodium 40 MG Tablet PO (13:18)
--- NOTE | 2018-09-15 13:25 | PCM.PN.ID ---
Patient Problems: Active and Suspected Problems (Last Reviewed 07/25/18 @ 08:52 by Fredo Rodriguez MD) MSSA bacteremia (Acute) Osteomyelitis (Acute) - Physical Exam Vital Signs Temp Pulse Resp BP Pulse Ox 98.4 F 87 16 175/86 H 96 09/15/18 12:22 09/15/18 12:22 09/15/18 12:22 09/15/18 12:22 09/15/18 12:22 Oxygen Flow Rate (L/min) 3 Oxygen Delivery Method Room Air Weight: 101.4 kg Body Mass Index (BMI) 29.0 Intake and Output for Last 24 Hours 09/13/18 09/14/18 09/15/18 23:59 23:59 23:59 Intake Total 2249 / 2249 2413 / 2413 1063 / 1063 Output Total 2675 / 2675 1475 / 1475 850 / 850 Balance -426 / -426 938 / 938 213 / 213 Microbiology Past 72 Hours 09/10/18 08:54 Blood Culture - Final Blood Culture (Wb) - Anticubital Left Staphylococcus aureus 09/10/18 08:50 Blood Culture - Final Blood Culture (Wb) - Right Forearm Staphylococcus aureus 09/11/18 Unknown Gram Stain - Final Wound - Toe Wound Culture - Final Staphylococcus aureus Anaerobic Culture - Preliminary Checking for anaerobes, further studies to follow. 09/12/18 16:47 Gram Stain - Final Biopsy - Toe Wound Culture - Preliminary No growth-Final to follow Anaerobic Culture - Preliminary No growth in 48 hours. 09/12/18 16:47 Gram Stain - Final Biopsy - Toe Wound Culture - Final Staphylococcus aureus Anaerobic Culture - Preliminary Checking for anaerobes, further studies to follow. 09/12/18 12:32 Blood Culture - Preliminary Blood Culture (Wb) - Anticubital Left No growth in 48 hours. 09/11/18 08:06 Blood Culture - Preliminary Blood Culture (Wb) - Anticubital Left No growth in 48 hours. 09/11/18 08:02 Blood Culture - Preliminary Blood Culture (Wb) - Right Forearm No growth in 48 hours. Laboratory Tests Past 24 Hrs 09/15/18 05:18 Sodium 136 Potassium 3.6 Chloride 100 Carbon Dioxide 25.0 Anion Gap 11 BUN 20 H Creatinine 0.99 Estim Creat Clear Calc 89.67 Est GFR (MDRD) Af Amer 100 Est GFR (MDRD) Non-Af 82 BUN/Creatinine Ratio 20.3 H Glucose 139 H Calcium 8.7 POC Glucose 09/15/18 09/14/18 09/14/18 06:35 21:45 16:30 POC Glucose 132 H 194 H 180 H 09/14/18 11:59 POC Glucose 229 H Medical Necessity - Tobacco Use Smoking Status: Never smoker Tobacco Use: Non-smoker Route of nutrition/ use of supplements: [] Nutritional Intake: [] IV Site: [] Zhu Catheter: [] - Assessment/Plan Antibiotics: [] Assessment/Plan: [] sepsis (fever, tachycardia, leukocytosis) due to mssa bacteremia from L 3rd toe osteo. Heart murmur raises concern for endocarditis. Small AV veg seen on TTE but not on BRODY. Podiatry following, wound cx with staph, MRI showed osteo. He had partial toe amputation done 09/12 with negative clearance fragment so far. Tolerating cefazolin with no issue so far, will continue. Bcx have cleared since 09/11. Will order picc. Plan for discharge, given surgical amputation of osteo and negative BRODY, will be for 4 weeks of iv cefazolin, stop date 10/10 with weekly bmp and cbc while on iv abx. Will follow
[2018-09-15] MEDS: Metoprolol Tartrate 25 MG Tablet PO ×2 (13:28→21:24)
--- NOTE | 2018-09-15 14:00 | CASEMGMT ---
LLOYD GAO received update that patient will need IV ATBs at discharge. LLOYD GAO in to speak with patient. Patient states that he has had [facility] in the past for [facility]. Patient agreeable to I for IV ATBs. Referral made to [facility] and they are unable to accept patient do to staffing. LLOYD GAO looked up in-network [facility] with [facility]. Referral also sent to [facility] and they are unable to accept, as they do not do IV nursing care in [facility]. Referral sent to [facility] and they are reviewing referral and should be able to accept the patient. Referral sent to [facility] for IV ATBs and am awaiting financial coverage and confirm setup. LLOYD GAO will update patient when HHC confirmed. LLOYD GAO will continue to follow this patient and plan for a safe discharge.
[2018-09-15 16:50] LABS: Bedside Glucose 133 mg/dL (70-110)
[2018-09-15] MEDS: Atorvastatin Calcium 80 MG Tablet PO (21:23)
[2018-09-15] MEDS: 0.9% NaCl Peripheral Flush Adult/Peds IV (21:24)
[2018-09-15] MEDS: Insulin Lispro 100 UNIT/ML INSULN.PEN SQ (21:25)
[2018-09-15 21:41] LABS: Bedside Glucose 196 mg/dL (70-110)
[2018-09-16] VITALS (9 sets, daily range): BP systolic 170–180; BP diastolic 82–93; PULSE 58–80; RESP 16–18; TEMP 36.9–37; O2SAT 92–95
[2018-09-16] MEDS: hydrALAZINE 20 MG/ML Vial 5 MG IV (04:25)
[2018-09-16] MEDS: 0.9% NaCl Peripheral Flush Adult/Peds IV ×2 (04:26→06:34)
[2018-09-16] MEDS: oxyCODONE 5 MG Tablet PO ×3 (04:32→12:39)
[2018-09-16] MEDS: Cefazolin 2 GM in 0.9% Normal Saline 100 ML IV (06:34)
[2018-09-16] MEDS: Heparin Injection (Vial) 5,000 UNIT/ML VIAL 5000 UNIT SC (06:35)
[2018-09-16] MEDS: cycloBENZAPRine HCl 5 MG TABLET PO (06:35)
[2018-09-16] MEDS: Acetaminophen 500 MG Tablet 1000 MG PO (06:35)
[2018-09-16 06:45] LABS: Bedside Glucose 146 mg/dL (70-110)
[2018-09-16] MEDS: Ipratropium/Albuterol Sulfate 3 ML AMPUL.NEB INHALATION ×2 (07:14→11:02)
[2018-09-16] MEDS: Aspirin E.C. 81 MG Tablet PO (08:08)
[2018-09-16] MEDS: Glimepiride 2 MG Tablet PO (08:08)
[2018-09-16] MEDS: Metoprolol Tartrate 25 MG Tablet PO (08:09)
[2018-09-16] MEDS: Furosemide 20 MG Tablet PO (08:09)
[2018-09-16] MEDS: Lisinopril 20 MG Tablet PO (08:10)
[2018-09-16] MEDS: Pantoprazole Sodium 40 MG Tablet PO (08:10)
[2018-09-16] MEDS: amLODIPine 10 MG Tablet PO (08:25)
--- NOTE | 2018-09-16 08:40 | CASEMGMT ---
LLOYD GAO received phone call from [facility] that they are able to accept the patient and are requesting start of care for 1600 today. LLOYD GAO updated [facility] regarding request for 1600 start of care and arranged for IV ATBs to be delivered to patient's home by 1600. Hospitalist updated regarding plan for start of care for 1600 with next antibiotic dose. LLOYD GAO updated patient and floor nurse. Discharge instructions to be faxed to [facility] when available.
--- NOTE | 2018-09-16 11:11 | PCM.PN.ID ---
Patient Problems: Active and Suspected Problems (Last Reviewed 07/25/18 @ 08:52 by Fredo Rodriguez MD) MSSA bacteremia (Acute) Osteomyelitis (Acute) Subjective: Feeling well, no fever, no n/v/d, no issues with picc. - Physical Exam General: Alert, Cooperative, No apparent distress Lungs: Clear to auscultation, Normal air movement Cardiovascular: Regular rate, Regular Rhythm Abdomen: Soft, Non Tender, Non-Distended Skin: Incision - foot wrapped Vital Signs Temp Pulse Resp BP Pulse Ox 98.5 F 58 L 18 174/86 H 95 09/16/18 08:04 09/16/18 11:02 09/16/18 11:02 09/16/18 08:09 09/16/18 08:04 Oxygen Flow Rate (L/min) 3 Oxygen Delivery Method Room Air Weight: 101.1 kg Body Mass Index (BMI) 29.0 Intake and Output for Last 24 Hours 09/14/18 09/15/18 09/16/18 23:59 23:59 23:59 Intake Total 2413 / 2413 1563 / 1563 120 / 120 Output Total 1475 / 1475 1700 / 1700 525 / 525 Balance 938 / 938 -137 / -137 -405 / -405 Microbiology Past 72 Hours 09/11/18 08:06 Blood Culture - Final Blood Culture (Wb) - Anticubital Left No growth in 5 days. 09/11/18 08:02 Blood Culture - Final Blood Culture (Wb) - Right Forearm No growth in 5 days. 09/12/18 16:47 Gram Stain - Final Biopsy - Toe Wound Culture - Final No growth aerobically. Anaerobic Culture - Preliminary No growth in 48 hours. 09/12/18 16:47 Acid Fast Bacilli Smear - Final Tissue - Toe 09/13/18 11:40 Blood Culture - Preliminary Blood Culture (Wb) - Anticubital Left No growth in 48 hours. 09/10/18 08:54 Blood Culture - Final Blood Culture (Wb) - Anticubital Left Staphylococcus aureus 09/10/18 08:50 Blood Culture - Final Blood Culture (Wb) - Right Forearm Staphylococcus aureus 09/11/18 Unknown Gram Stain - Final Wound - Toe Wound Culture - Final Staphylococcus aureus Anaerobic Culture - Preliminary Checking for anaerobes, further studies to follow. 09/12/18 16:47 Gram Stain - Final Biopsy - Toe Wound Culture - Final Staphylococcus aureus Anaerobic Culture - Preliminary Checking for anaerobes, further studies to follow. 09/12/18 12:32 Blood Culture - Preliminary Blood Culture (Wb) - Anticubital Left No growth in 48 hours. POC Glucose 09/16/18 09/15/18 09/15/18 06:33 21:23 16:13 POC Glucose 146 H 196 H 133 H Medical Necessity - Tobacco Use Smoking Status: Never smoker Tobacco Use: Non-smoker Route of nutrition/ use of supplements: [] Nutritional Intake: [] IV Site: [] Zhu Catheter: [] - Assessment/Plan Antibiotics: [] Assessment/Plan: [] sepsis (fever, tachycardia, leukocytosis) due to mssa bacteremia from L 3rd toe osteo. Heart murmur raises concern for endocarditis. Small AV veg seen on TTE but not on BRODY. Podiatry following, wound cx with staph, MRI showed osteo. He had partial toe amputation done 09/12 with negative clearance fragment so far. Tolerating cefazolin with no issue so far, will continue. Bcx have cleared since 09/11. Picc placed. Plan for discharge, given surgical amputation of osteo and negative BRODY, will be for 4 weeks of iv cefazolin, stop date 10/10 with weekly bmp and cbc while on iv abx. Will follow, d/w Dr. Cook. ID followup in 3 weeks.
--- NOTE | 2018-09-16 11:13 | DCINST_ITS ---
- Discharge Diagnoses Current Active Problems: Current Active and Chronic Problems (Last Reviewed 07/25/18 @ 08:52 by Fredo Rodriguez MD) MSSA bacteremia (Acute) Hammer toe of left foot (Chronic) Osteomyelitis (Acute) Chronic ulcer of left foot with fat layer exposed (Chronic) You will use the following diet at home:: Other - resume cardiac diabetic diet Your food should be the consistency of: Regular Your liquids should be the consistency of: Regular/Thin Discharge Activity: - - gradually resume your normal activity Weight Bearing Status: Partial weight bearing - heel with left surgical shoe Call your doctor if your incision/area has: Continuous Slow Oozing, Sudden Increased Bleeding, Increased Pain/ Swelling, Increased Redness, Foul Smelling Discharge, Swelling at the incision site Call your doctor if you observe: Fever of 101 or Higher, Shortness of breath, Dizziness, Fainting spells, Swelling in the ankles, Chest pain, Calf discomfort, Uncontrolled pain, - - Call your PCP if severe diarrhea ( > 5 stools a day), painful sores in the mouth, painful swallowing, rash or itching. Taking a probiotic such as Lactobacillus or Kefir can help with loose stools while taking antibiotics. Cleanse incision/area with: Keep Dressing Clean & Dry Additional Instructions: 1. Your BP is not adequately controlled. You were started on a medication called Metoprolol and you will take this twice a day. Your PCP can recheck the BP in 1-2 weeks and adjust the dose if necessary. Allergies/Adverse Reactions: Allergies Penicillins [PCN] Allergy (Verified 09/09/18 10:52) Unknown Medications to take at Discharge Nitroglycerin (INPATIENT USE) [Nitrostat] 0.4 mg SUBLINGUAL Q5M PRN #20 tab 05/21/18 atorvastatin 80 mg tablet 80 mg PO QHS 07/24/18 glimepiride 2 mg tablet 1 mg PO DAILY tab 07/24/18 pantoprazole 40 mg tablet,delayed release 40 mg PO DAILY 07/24/18 furosemide 20 mg tablet 20 mg PO DAILY PRN PRN 07/25/18 Amlodipine Besylate 10 mg PO DAILY 09/09/18 Aspirin E.C. [Ecotrin] 81 mg PO DAILY@0800 09/09/18 Lisinopril [Zestril] 20 mg PO BID 05/28/19 Cefazolin 2 gm IV Q8 25 Days #75 vial 09/15/18 Metoprolol Tartrate [Lopressor (beta leonardo)] 25 mg PO BID #60 tablet 09/16/18 Nutritional Supplement [Sujit - ORANGE FLAVOR] 1 packet PO BIDCM #60 packet 09/16/18 Oxycodone [Oxyir] 5 mg PO Q4H PRN PRN 7 Days #40 tab 09/16/18 The following prescriptions were given: Oxycodone [Oxyir] 5 mg PO Q4H PRN PRN 7 Days #40 tab PRN Reason: Severe Pain (-01/22) Cefazolin 2 gm IV Q8 25 Days #75 vial Metoprolol Tartrate [Lopressor (beta leonardo)] 25 mg PO BID #60 tablet Nutritional Supplement [Sujit - ORANGE FLAVOR] 1 packet PO BIDCM #60 packet Primary Care Physician: Delgado Smith [Primary Care Provider] - Please follow up with your Primary Care Physician in: 1-2 weeks Test Results: Test results from this visit will be discussed in further detail at your follow- up appointment, if applicable. Please Follow Up With: Delgado Smith Please Follow Up With: Jemima Barnett DPM When: [facility] next Th (09/18/18); call [phone] if concerns. Please Follow Up With: Sacha Yuan MD When: 1 month Proposed Discharge Date: 09/16/18
--- NOTE | 2018-09-16 11:28 | PCM.DC.SUM ---
Discharge Date and Diagnosis Date of Admission: 09/09/18 Date of Discharge: 09/16/18 - Primary Discharge Diagnosis Active and Suspected Problems (Last Reviewed 07/25/18 @ 08:52 by Fredo Rodriguez MD) Sepsis (Acute) MSSA bacteremia (Acute) secondary to osteomyelitis of the left third toe Osteomyelitis (Acute) left third toe, distal phalanx Hyponatremia - Secondary Discharge Diagnosis Chronic Problems (Last Reviewed 07/25/18 @ 08:52 by Fredo Rodriguez MD) DM II (diabetes mellitus, type II), controlled (Chronic) Hammer toe of left foot (Chronic) Chronic ulcer of left foot with fat layer exposed (Chronic) Postoperative atrial fibrillation (Chronic 06/12/18) Sinus bradycardia (Chronic) Diastolic dysfunction with acute on chronic heart failure (Chronic) Atherosclerosis of coronary artery without angina pectoris (Chronic) CABG x 3 WALL-LAD, Free MAIK-OM, SVG-RPDA 06/12/18 H/O coronary artery bypass surgery (Chronic 06/12/18) CABG x 3 WALL-LAD, Free MAIK-OM, SVG-RPDA 06/12/18 Essential hypertension (Chronic) - not adequately controlled Hospital Course and Treatment Imaging Results: Clinical Impression(s) from Imaging Studies Chest CTA 09/09/18 11:18 IMPRESSION: Mild degree of increased markings at the lung bases suggestive of scarring. Electronically Signed: Emir Kwan, at 12:53 EDT , Service support , Abdomen/Pelvis CT 09/09/18 17:12 IMPRESSION: No acute abdominal or pelvic pathology demonstrated on this noncontrast CT. Electronically Signed: Ezekiel Lozano, at 17:57 EDT Tel , Service support , ADDENDUM: 09/09/18 1808 Mandible X-Ray 09/10/18 15:37 IMPRESSION: No mandibular fracture or evidence of infection identified. If indicated, further evaluation with CT can be performed. Moderate degenerative changes with mild subluxation at the C3-C4 level. Correlate clinically. Electronically Signed: Ezekiel Lozano, at 17:39 EDT Tel , Service support , Foot X-Ray 09/10/18 16:00 IMPRESSION: No fracture or dislocation. Degenerative changes described above. No evidence of infection. Electronically Signed: Ezekiel Gibsoni, at 17:18 EDT Tel , Service support , Lower Extremity MRI 09/11/18 07:27 IMPRESSION: Signal alteration of the third distal phalanx suggestive of osteomyelitis. Edema in the subcutis adipose space without demonstrated soft tissue abscess. 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 Mild edema in the intrinsic muscles of the forefoot suggestive of myositis. Intermetatarsal neuroma of the second webspace. Electronically Signed: Arvind Frey MD at 10:13 EDT Tel , Service support , Lumbar Spine X-Ray 09/11/18 10:20 IMPRESSION: Degenerative changes of the spine, as detailed above. Electronically Signed: Emir Kwan, at 15:30 EDT , Service support , Foot X-Ray 09/12/18 15:15 IMPRESSION: As above Electronically Signed: Jarred Grant DO at 18:13 EDT Tel , Service support , Microbiology 09/11/18 08:06 Blood Culture (Wb) - Anticubital Left Blood Culture - Final No growth in 5 days. 09/11/18 08:02 Blood Culture (Wb) - Right Forearm Blood Culture - Final No growth in 5 days. 09/12/18 16:47 Biopsy - Toe Gram Stain - Final 09/12/18 16:47 Biopsy - Toe Wound Culture - Final No growth aerobically. 09/12/18 16:47 Biopsy - Toe Anaerobic Culture - Preliminary No growth in 48 hours. 09/12/18 16:47 Tissue - Toe Acid Fast Bacilli Smear - Final 09/13/18 11:40 Blood Culture (Wb) - Anticubital Left Blood Culture - Preliminary No growth in 48 hours. 09/10/18 08:54 Blood Culture (Wb) - Anticubital Left Blood Culture - Final Staphylococcus aureus 09/10/18 08:50 Blood Culture (Wb) - Right Forearm Blood Culture - Final Staphylococcus aureus 09/11/18 Unknown Wound - Toe Gram Stain - Final 09/11/18 Unknown Wound - Toe Wound Culture - Final Staphylococcus aureus 09/11/18 Unknown Wound - Toe Anaerobic Culture - Preliminary Checking for anaerobes, further studies to follow. 09/12/18 16:47 Biopsy - Toe Gram Stain - Final 09/12/18 16:47 Biopsy - Toe Wound Culture - Final Staphylococcus aureus 09/12/18 16:47 Biopsy - Toe Anaerobic Culture - Preliminary Checking for anaerobes, further studies to follow. 09/12/18 12:32 Blood Culture (Wb) - Anticubital Left Blood Culture - Preliminary No growth in 48 hours. 09/09/18 11:45 Blood Culture (Wb) - Anticubital Right Blood Culture - Final Staphylococcus aureus 09/09/18 11:35 Blood Culture (Wb) - Left Forearm Bacteria Detection (PCR) - Final Staphylococcus aureus 09/09/18 11:35 Blood Culture (Wb) - Left Forearm Blood Culture - Final Staphylococcus aureus 09/09/18 13:15 Urine, Clean Catch Legionella Antigen - Final 09/09/18 13:15 Urine, Clean Catch Streptococcus pneumoniae Antigen (M - Final Laboratory Results - last 24 hr 09/15/18 09/15/18 09/16/18 16:13 21:23 06:33 POC Glucose 133 H 196 H 146 H Consultations 09/14/18 09:03 MD to MD Notification of Procedure Routine MD Notified:: [facility] Dr. Nicholas Eugene and Dr. Davon Head-pulmonary medicine/gambling cashier Dr. Jemima Barnett-podiatry Dr. Sacha Yuan-infectious disease Operations: - - Partial left third toe amputation on 09/10/[address] Barnett Procedures: Transesophageal Echo - BRODY was negative for aortic valve vegetation and showed a normal ejection fraction of 65%. There was mild diffuse thickening of the aortic valve., Transthoracic echo - Transthoracic echocardiogram showed a possible aortic valve vegetation. Summary of Care Provided: The patient is a 58-year-old male with a past medical history of coronary artery disease, CABG x3 vessels complicated by postop atrial fibrillation and hypertension who presented to the emergency department at [facility] on 09/09/2018 complaining of shortness of breath and fever. He additionally complained of right lower chest wall/abdominal wall tenderness and cough productive of white sputum. Temp in the emergency department was 100.6 ?F and the blood pressure was uncontrolled at 189/96. Pulse ox on room air was 85%. White blood cell count was 8.9 with a hemoglobin of 10.9 and normal platelets. Sodium was low at 127 and the BUN was 15 with a creatinine of 1.15. UA was unremarkable. CT scan of the chest showed mild increased markings in the bases which were thought to be secondary to scarring. On physical examination the lungs were clear to auscultation and the heart had a regular rate and rhythm. He was admitted to the hospital with suspected community-acquired pneumonia and started on Levaquin and vancomycin. 2 of 2 blood cultures were positive for methicillin sensitive staph aureus on 09/09/2018. Blood cultures on 09/10 and 09/11 were also positive for staph aureus. Blood culture from 09/12 and 09/[address] Yuan was consulted to participate in management and found a ulceration/wound on the left third toe with swelling, redness and ulceration. An MRI of the left lower extremity showed signal alteration of the third distal phalanx on the left suggestive of osteomyelitis. Patient was seen in consultation by Dr. Barnett and she obtained a deep wound culture which was positive for methicillin sensitive staph aureus. There was deep probing of the wound with seropurulent drainage obtained and she recommended partial amputation of the distal phalanx of the third left toe. He was taken to the OR on 09/12/2018 for partial amputation. The distal phalanx bone was positive for MSSA but, the clearance fragment had no growth. Because of MSSA bacteremia an echocardiogram was obtained on on 09/11/2018 and showed an ejection fraction of 65% with stage III diastolic dysfunction. The left atrium was moderately enlarged. An aortic valvular vegetation could not be ruled out. BRODY on 09/15/2018 was negative for vegetation. He was discharged home on IV Ancef for 4 additional weeks on 09/16/18. He will have a weekly BMP and CBC while on IV antibiotics. He will follow up with Dr. Barnett in the office this week and he will follow up with Dr. Yuan at the conclusion of IV antibiotic therapy. He will also follow up with his primary care physician Dr. Delgado Smith. He will follow-up with his machine operator transplanter regarding the scabbing of the face and anterior chest. General: Alert, Oriented x3, Cooperative, No apparent distress, sitting in the bedside chair Neck: Supple, No JVD, Negative Carotid Bruits. He has multiple areas of actinic keratosis with scabbing on his face and has had extensive treatment with laser Lungs: Diminished but clear to auscultation Cardiovascular: Regular rate, Regular Rhythm, Normal S1, Normal S2, No murmurs, No rub noted, No Gallop Abdomen: Bowel Sounds Present, Soft, Non Tender Extremities: No clubbing, No cyanosis, No edema, - - dressing in place Left foot Skin: - - he has several areas of what appears to be excoriation on the face and over the CABG scar.....they are scabbed and do not have any purulent DC. Denies pruritus. admits to having areas of actinic keratosis on the face Neurological: Cranial nerves II-XII grossly intact, Neuro grossly intact Psych/Mental Status: Normal Affect, Appropriate This note was generated with [employer] dictation software. It may contain incorrect words, spelling, and punctuation that were not noted in checking the note before signing. - Physical Exam Vital Signs Temp Pulse Resp BP Pulse Ox 98.5 F 58 L 18 174/86 H 95 09/16/18 08:04 09/16/18 11:02 09/16/18 11:02 09/16/18 08:09 09/16/18 08:04 Oxygen Flow Rate (L/min) 3 Oxygen Delivery Method Room Air Weight: 222 lb 14.197 oz Body Mass Index (BMI) 29.0 Intake and Output for Last 24 Hours 09/14/18 09/15/18 09/16/18 23:59 23:59 23:59 Intake Total 2413 / 2413 1563 / 1563 120 / 120 Output Total 1475 / 1475 1700 / 1700 525 / 525 Balance 938 / 938 -137 / -137 -405 / -405 Microbiology Past 72 Hours 09/11/18 08:06 Blood Culture - Final Blood Culture (Wb) - Anticubital Left No growth in 5 days. 09/11/18 08:02 Blood Culture - Final Blood Culture (Wb) - Right Forearm No growth in 5 days. 09/12/18 16:47 Gram Stain - Final Biopsy - Toe Wound Culture - Final No growth aerobically. Anaerobic Culture - Preliminary No growth in 48 hours. 09/12/18 16:47 Acid Fast Bacilli Smear - Final Tissue - Toe 09/13/18 11:40 Blood Culture - Preliminary Blood Culture (Wb) - Anticubital Left No growth in 48 hours. 09/10/18 08:54 Blood Culture - Final Blood Culture (Wb) - Anticubital Left Staphylococcus aureus 09/10/18 08:50 Blood Culture - Final Blood Culture (Wb) - Right Forearm Staphylococcus aureus 09/11/18 Unknown Gram Stain - Final Wound - Toe Wound Culture - Final Staphylococcus aureus Anaerobic Culture - Preliminary Checking for anaerobes, further studies to follow. 09/12/18 16:47 Gram Stain - Final Biopsy - Toe Wound Culture - Final Staphylococcus aureus Anaerobic Culture - Preliminary Checking for anaerobes, further studies to follow. 09/12/18 12:32 Blood Culture - Preliminary Blood Culture (Wb) - Anticubital Left No growth in 48 hours. POC Glucose 09/16/18 09/15/18 09/15/18 06:33 21:23 16:13 POC Glucose 146 H 196 H 133 H Discharge Activity: - - gradually resume your normal activity Weight Bearing Status: Partial weight bearing - heel with left surgical shoe Call your doctor if your incision/area has: Continuous Slow Oozing, Sudden Increased Bleeding, Increased Pain/ Swelling, Increased Redness, Foul Smelling Discharge, Swelling at the incision site Call your doctor if you observe: Fever of 101 or Higher, Shortness of breath, Dizziness, Fainting spells, Swelling in the ankles, Chest pain, Calf discomfort, Uncontrolled pain, - - Call your PCP if severe diarrhea ( > 5 stools a day), painful sores in the mouth, painful swallowing, rash or itching. Taking a probiotic such as Lactobacillus or Kefir can help with loose stools while taking antibiotics. Cleanse incision/area with: Keep Dressing Clean & Dry Home Medications: Medications to take at Discharge Nitroglycerin (INPATIENT USE) [Nitrostat] 0.4 mg SUBLINGUAL Q5M PRN #20 tab 05/21/18 atorvastatin 80 mg tablet 80 mg PO QHS 07/24/18 glimepiride 2 mg tablet 1 mg PO DAILY tab 07/24/18 pantoprazole 40 mg tablet,delayed release 40 mg PO DAILY 07/24/18 furosemide 20 mg tablet 20 mg PO DAILY PRN PRN 07/25/18 Amlodipine Besylate 10 mg PO DAILY 09/09/18 Aspirin E.C. [Ecotrin] 81 mg PO DAILY@0800 09/09/18 Lisinopril [Zestril] 20 mg PO BID 09/09/18 Cefazolin 2 gm IV Q8 25 Days #75 vial 09/15/18 Metoprolol Tartrate [Lopressor (beta leonardo)] 25 mg PO BID #60 tablet 09/16/18 Nutritional Supplement [Sujit - ORANGE FLAVOR] 1 packet PO BIDCM #60 packet 09/16/18 Oxycodone [Oxyir] 5 mg PO Q4H PRN PRN 7 Days #40 tab 09/16/18 Following Prescrptions Were Given to Patient: Oxycodone [Oxyir] 5 mg PO Q4H PRN PRN 7 Days #40 tab PRN Reason: Severe Pain (-01/22) Cefazolin 2 gm IV Q8 25 Days #75 vial Metoprolol Tartrate [Lopressor (beta leonardo)] 25 mg PO BID #60 tablet Nutritional Supplement [Sujit - ORANGE FLAVOR] 1 packet PO BIDCM #60 packet Primary Care Physician: Delgado Smith [Primary Care Provider] - Please follow up with your Primary Care Physician in: 1-2 weeks Please Follow Up With: Delgado Smith Please Follow Up With: Jemima Barnett DPM When: [facility] (09/18/18); call [phone] if concerns. Please Follow Up With: Sacha Yuan MD When: 1 month Disposition: Home with Home Health Minutes spent on discharge:: 40 Patient Condition:: Good Medical Necessity - Tobacco Use Smoking Status: Never smoker Tobacco Use: Non-smoker Meaningful Use Info Meaningful Use Diagnoses (Choose all that apply): None applicable Code Visit Inpatient E&M: 87972 Disch Hosp
--- NOTE | 2018-09-16 11:33 | DS.PCM_ITS ---
Discharge Date and Diagnosis Date of Admission: 09/09/18 Date of Discharge: 09/16/18 - Primary Discharge Diagnosis Active and Suspected Problems (Last Reviewed 07/25/18 @ 08:52 by Fredo Rodriguez MD) Sepsis (Acute) MSSA bacteremia (Acute) secondary to osteomyelitis of the left third toe Osteomyelitis (Acute) left third toe, distal phalanx Hyponatremia - Secondary Discharge Diagnosis Chronic Problems (Last Reviewed 07/25/18 @ 08:52 by Fredo Rodriguez MD) DM II (diabetes mellitus, type II), controlled (Chronic) Hammer toe of left foot (Chronic) Chronic ulcer of left foot with fat layer exposed (Chronic) Postoperative atrial fibrillation (Chronic 06/12/18) Sinus bradycardia (Chronic) Diastolic dysfunction with acute on chronic heart failure (Chronic) Atherosclerosis of coronary artery without angina pectoris (Chronic) CABG x 3 WALL-LAD, Free MAIK-OM, SVG-RPDA 06/12/18 H/O coronary artery bypass surgery (Chronic 06/12/18) CABG x 3 WALL-LAD, Free MAIK-OM, SVG-RPDA 06/12/18 Essential hypertension (Chronic) - not adequately controlled Hospital Course and Treatment Imaging Results: Clinical Impression(s) from Imaging Studies Chest CTA 09/09/18 11:18 IMPRESSION: Mild degree of increased markings at the lung bases suggestive of scarring. Electronically Signed: Emir Kwan, at 12:53 EDT , Service support , Abdomen/Pelvis CT 09/09/18 17:12 IMPRESSION: No acute abdominal or pelvic pathology demonstrated on this noncontrast CT. Electronically Signed: Ezekiel Lozano, at 17:57 EDT Tel , Service support , ADDENDUM: 09/09/18 1808 Mandible X-Ray 09/10/18 15:37 IMPRESSION: No mandibular fracture or evidence of infection identified. If indicated, further evaluation with CT can be performed. Moderate degenerative changes with mild subluxation at the C3-C4 level. Correlate clinically. Electronically Signed: Ezekiel Lozano, at 17:39 EDT Tel , Service support , Foot X-Ray 09/10/18 16:00 IMPRESSION: No fracture or dislocation. Degenerative changes described above. No evidence of infection. Electronically Signed: Ezekiel Gibsoni, at 17:18 EDT Tel , Service support , Lower Extremity MRI 09/11/18 07:27 IMPRESSION: Signal alteration of the third distal phalanx suggestive of osteomyelitis. Edema in the subcutis adipose space without demonstrated soft tissue abscess. 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 Mild edema in the intrinsic muscles of the forefoot suggestive of myositis. Intermetatarsal neuroma of the second webspace. Electronically Signed: Arvind Frey MD at 10:13 EDT Tel , Service support , Lumbar Spine X-Ray 09/11/18 10:20 IMPRESSION: Degenerative changes of the spine, as detailed above. Electronically Signed: Emir Kwan, at 15:30 EDT , Service support , Foot X-Ray 09/12/18 15:15 IMPRESSION: As above Electronically Signed: Jarred Grant DO at 18:13 EDT Tel , Service support , Microbiology 09/11/18 08:06 Blood Culture (Wb) - Anticubital Left Blood Culture - Final No growth in 5 days. 09/11/18 08:02 Blood Culture (Wb) - Right Forearm Blood Culture - Final No growth in 5 days. 09/12/18 16:47 Biopsy - Toe Gram Stain - Final 09/12/18 16:47 Biopsy - Toe Wound Culture - Final No growth aerobically. 09/12/18 16:47 Biopsy - Toe Anaerobic Culture - Preliminary No growth in 48 hours. 09/12/18 16:47 Tissue - Toe Acid Fast Bacilli Smear - Final 09/13/18 11:40 Blood Culture (Wb) - Anticubital Left Blood Culture - Preliminary No growth in 48 hours. 09/10/18 08:54 Blood Culture (Wb) - Anticubital Left Blood Culture - Final Staphylococcus aureus 09/10/18 08:50 Blood Culture (Wb) - Right Forearm Blood Culture - Final Staphylococcus aureus 09/11/18 Unknown Wound - Toe Gram Stain - Final 09/11/18 Unknown Wound - Toe Wound Culture - Final Staphylococcus aureus 09/11/18 Unknown Wound - Toe Anaerobic Culture - Preliminary Checking for anaerobes, further studies to follow. 09/12/18 16:47 Biopsy - Toe Gram Stain - Final 09/12/18 16:47 Biopsy - Toe Wound Culture - Final Staphylococcus aureus 09/12/18 16:47 Biopsy - Toe Anaerobic Culture - Preliminary Checking for anaerobes, further studies to follow. 09/12/18 12:32 Blood Culture (Wb) - Anticubital Left Blood Culture - Preliminary No growth in 48 hours. 09/09/18 11:45 Blood Culture (Wb) - Anticubital Right Blood Culture - Final Staphylococcus aureus 09/09/18 11:35 Blood Culture (Wb) - Left Forearm Bacteria Detection (PCR) - Final Staphylococcus aureus 09/09/18 11:35 Blood Culture (Wb) - Left Forearm Blood Culture - Final Staphylococcus aureus 09/09/18 13:15 Urine, Clean Catch Legionella Antigen - Final 09/09/18 13:15 Urine, Clean Catch Streptococcus pneumoniae Antigen (M - Final Laboratory Results - last 24 hr 09/15/18 09/15/18 09/16/18 16:13 21:23 06:33 POC Glucose 133 H 196 H 146 H Consultations 09/14/18 09:03 MD to MD Notification of Procedure Routine MD Notified:: [facility] Dr. Nicholas Eugene and Dr. Davon Head-pulmonary medicine/waxer floor Dr. Jemima Barnett-podiatry Dr. Sacha Yuan-infectious disease Operations: - - Partial left third toe amputation on 09/10/[address] Barnett Procedures: Transesophageal Echo - BRODY was negative for aortic valve vegetation and showed a normal ejection fraction of 65%. There was mild diffuse thickening of the aortic valve., Transthoracic echo - Transthoracic echocardiogram showed a possible aortic valve vegetation. Summary of Care Provided: The patient is a 58-year-old male with a past medical history of coronary artery disease, CABG x3 vessels complicated by postop atrial fibrillation and hypertension who presented to the emergency department at [facility] on 09/09/2018 complaining of shortness of breath and fever. He additionally complained of right lower chest wall/abdominal wall tenderness and cough productive of white sputum. Temp in the emergency department was 100.6 ?F and the blood pressure was uncontrolled at 189/96. Pulse ox on room air was 85%. White blood cell count was 8.9 with a hemoglobin of 10.9 and normal platelets. Sodium was low at 127 and the BUN was 15 with a creatinine of 1.15. UA was unremarkable. CT scan of the chest showed mild increased markings in the bases which were thought to be secondary to scarring. On physical examination the lungs were clear to auscultation and the heart had a regular rate and rhythm. He was admitted to the hospital with suspected community-acquired pneumonia and started on Levaquin and vancomycin. 2 of 2 blood cultures were positive for methicillin sensitive staph aureus on 09/09/2018. Blood cultures on 09/10 and 09/11 were also positive for staph aureus. Blood culture from 09/12 and 09/[address] Yuan was consulted to participate in management and found a ulceration/wound on the left third toe with swelling, redness and ulceration. An MRI of the left lower extremity showed signal alteration of the third distal phalanx on the left suggestive of osteomyelitis. Patient was seen in consultation by Dr. Barnett and she obtained a deep wound culture which was positive for methicillin sensitive staph aureus. There was deep probing of the wound with seropurulent drainage obtained and she recommended partial amputation of the distal phalanx of the third left toe. He was taken to the OR on 09/12/2018 for partial amputation. The distal phalanx bone was positive for MSSA but, the clearance fragment had no growth. Because of MSSA bacteremia an echocardiogram was obtained on on 09/11/2018 and showed an ejection fraction of 65% with stage III diastolic dysfunction. The left atrium was moderately enlarged. An aortic valvular vegetation could not be ruled out. BRODY on 09/15/2018 was negative for vegetation. He was discharged home on IV Ancef for 4 additional weeks on 09/16/18. He will have a weekly BMP and CBC while on IV antibiotics. He will follow up with Dr. Barnett in the office this week and he will follow up with Dr. Yuan at the conclusion of IV antibiotic therapy. He will also follow up with his primary care physician Dr. Delgado Smith. 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 General: Alert, Oriented x3, Cooperative, No apparent distress, sitting in the bedside chair Neck: Supple, No JVD, Negative Carotid Bruits. He has multiple areas of actinic keratosis with scabbing on his face and has had extensive treatment with laser Lungs: Diminished but clear to auscultation Cardiovascular: Regular rate, Regular Rhythm, Normal S1, Normal S2, No murmurs, No rub noted, No Gallop Abdomen: Bowel Sounds Present, Soft, Non Tender Extremities: No clubbing, No cyanosis, No edema, - - dressing in place Left foot Skin: - - he has several areas of what appears to be excoriation on the face and over the CABG scar.....they are scabbed and do not have any purulent DC. Denies pruritus. admits to having areas of actinic keratosis on the face Neurological: Cranial nerves II-XII grossly intact, Neuro grossly intact Psych/Mental Status: Normal Affect, Appropriate This note was generated with [employer] dictation software. It may contain incorrect words, spelling, and punctuation that were not noted in checking the note before signing. - Physical Exam Vital Signs Temp Pulse Resp BP Pulse Ox 98.5 F 58 L 18 174/86 H 95 09/16/18 08:04 09/16/18 11:02 09/16/18 11:02 09/16/18 08:09 09/16/18 08:04 Oxygen Flow Rate (L/min) 3 Oxygen Delivery Method Room Air Weight: 222 lb 14.197 oz Body Mass Index (BMI) 29.0 Intake and Output for Last 24 Hours 09/14/18 09/15/18 09/16/18 23:59 23:59 23:59 Intake Total 2413 / 2413 1563 / 1563 120 / 120 Output Total 1475 / 1475 1700 / 1700 525 / 525 Balance 938 / 938 -137 / -137 -405 / -405 Microbiology Past 72 Hours 09/11/18 08:06 Blood Culture - Final Blood Culture (Wb) - Anticubital Left No growth in 5 days. 09/11/18 08:02 Blood Culture - Final Blood Culture (Wb) - Right Forearm No growth in 5 days. 09/12/18 16:47 Gram Stain - Final Biopsy - Toe Wound Culture - Final No growth aerobically. Anaerobic Culture - Preliminary No growth in 48 hours. 09/12/18 16:47 Acid Fast Bacilli Smear - Final Tissue - Toe 09/13/18 11:40 Blood Culture - Preliminary Blood Culture (Wb) - Anticubital Left No growth in 48 hours. 09/10/18 08:54 Blood Culture - Final Blood Culture (Wb) - Anticubital Left Staphylococcus aureus 09/10/18 08:50 Blood Culture - Final Blood Culture (Wb) - Right Forearm Staphylococcus aureus 09/11/18 Unknown Gram Stain - Final Wound - Toe Wound Culture - Final Staphylococcus aureus Anaerobic Culture - Preliminary Checking for anaerobes, further studies to follow. 09/12/18 16:47 Gram Stain - Final Biopsy - Toe Wound Culture - Final Staphylococcus aureus Anaerobic Culture - Preliminary Checking for anaerobes, further studies to follow. 09/12/18 12:32 Blood Culture - Preliminary Blood Culture (Wb) - Anticubital Left No growth in 48 hours. POC Glucose 09/16/18 09/15/18 09/15/18 06:33 21:23 16:13 POC Glucose 146 H 196 H 133 H Discharge Activity: - - gradually resume your normal activity Weight Bearing Status: Partial weight bearing - heel with left surgical shoe Call your doctor if your incision/area has: Continuous Slow Oozing, Sudden Increased Bleeding, Increased Pain/ Swelling, Increased Redness, Foul Smelling Discharge, Swelling at the incision site Call your doctor if you observe: Fever of 101 or Higher, Shortness of breath, Dizziness, Fainting spells, Swelling in the ankles, Chest pain, Calf discomfort, Uncontrolled pain, - - Call your PCP if severe diarrhea ( > 5 stools a day), painful sores in the mouth, painful swallowing, rash or itching. Taking a probiotic such as Lactobacillus or Kefir can help with loose stools while taking antibiotics. Cleanse incision/area with: Keep Dressing Clean & Dry Home Medications: Medications to take at Discharge Nitroglycerin (INPATIENT USE) [Nitrostat] 0.4 mg SUBLINGUAL Q5M PRN #20 tab 05/21/18 atorvastatin 80 mg tablet 80 mg PO QHS 07/24/18 glimepiride 2 mg tablet 1 mg PO DAILY tab 07/24/18 pantoprazole 40 mg tablet,delayed release 40 mg PO DAILY 07/24/18 furosemide 20 mg tablet 20 mg PO DAILY PRN PRN 07/25/18 Amlodipine Besylate 10 mg PO DAILY 09/09/18 Aspirin E.C. [Ecotrin] 81 mg PO DAILY@0800 09/09/18 Lisinopril [Zestril] 20 mg PO BID 09/09/18 Cefazolin 2 gm IV Q8 25 Days #75 vial 09/15/18 Metoprolol Tartrate [Lopressor (beta leonardo)] 25 mg PO BID #60 tablet 09/16/18 Nutritional Supplement [Sujit - ORANGE FLAVOR] 1 packet PO BIDCM #60 packet 09/16/18 Oxycodone [Oxyir] 5 mg PO Q4H PRN PRN 7 Days #40 tab 09/16/18 Following Prescrptions Were Given to Patient: Oxycodone [Oxyir] 5 mg PO Q4H PRN PRN 7 Days #40 tab PRN Reason: Severe Pain (-01/22) Cefazolin 2 gm IV Q8 25 Days #75 vial Metoprolol Tartrate [Lopressor (beta leonardo)] 25 mg PO BID #60 tablet Nutritional Supplement [Sujit - ORANGE FLAVOR] 1 packet PO BIDCM #60 packet Primary Care Physician: Delgado Smith [Primary Care Provider] - Please follow up with your Primary Care Physician in: 1-2 weeks Please Follow Up With: Delgado Smith Please Follow Up With: Jemima Barnett DPM When: [facility] (09/18/18); call [phone] if concerns. Please Follow Up With: Sacha Yuan MD When: 1 month Disposition: Home with Home Health Minutes spent on discharge:: 40 Patient Condition:: Good Medical Necessity - Tobacco Use Smoking Status: Never smoker Tobacco Use: Non-smoker Meaningful Use Info Meaningful Use Diagnoses (Choose all that apply): None applicable Code Visit Inpatient E&M: 15229 Disch Hosp
[2018-09-16 11:35] LABS: Bedside Glucose 150 mg/dL (70-110)
--- NOTE | 2018-09-16 12:20 | CASEMGMT ---
RN CM faxed discharge instructions to [facility] and confirmed start of care for 1600. CM will continue to follow this patient and plan for safe discharge.
--- NOTE | 2018-09-16 12:23 | PCA ---
JACKIE OFFICE ON LUNCH AT TIME TO MAKE APT. PATIENT HAS TO MAKE APT SELF
[2018-09-16] MEDS: Insulin Lispro 100 UNIT/ML INSULN.PEN SQ (12:34)
--- NOTE | 2018-09-17 13:17 | CASEMGMT ---
LLOYD GAO Discharge Follow-Up Phone Call. Lace: 14 Strata: 4 Discharge Date: 09/16/18 Adm Dx: CAP Attempted discharge follow-up phone call. No answer. Message left for pt to return call to [facility] L[facility], if he has any questions/concerns re: discharge instructions, medications, appts, etc. Phone number provided. Cindi RON LLOYD GAO
== END 2018-09-16 13:42 | disposition home health service (06) | DRG 710 ==
LOC: ED 12:38 → MS3 14:25
PROVIDERS: Anesthesiology; Internal Medicine Cardiovascular Disease; Podiatrist; Admitting Provider Internal Medicine; Emergency Provider Emergency Medicine; Family Provider Family Medicine; PCP Family Medicine; Visit Provider Internal Medicine
PROC: 0Y6U0Z3 Detachment at Left 3rd Toe, Low, Open Approach (ICD-10-PCS; principal; 2018-09-12 07:15)
DX: A41.01 Sepsis due to Methicillin susceptible Staphylococcus aureus (principal); M86.172 Other acute osteomyelitis, left ankle and foot; E87.1 Hypo-osmolality and hyponatremia; J96.01 Acute respiratory failure with hypoxia; R65.20 Severe sepsis without septic shock; Z95.1 Presence of aortocoronary bypass graft; I25.10 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of native coronary artery without angina pectoris; I11.0 Hypertensive heart disease with heart failure; I50.32 Chronic diastolic (congestive) heart failure; I48.2 Chronic atrial fibrillation; E11.319 Type 2 diabetes mellitus with unspecified diabetic retinopathy without macular edema; K21.9 Gastro-esophageal reflux disease without esophagitis; E66.9 Obesity, unspecified; Z79.84 Long term (current) use of oral hypoglycemic drugs; Z79.899 Other long term (current) drug therapy; Z79.82 Long term (current) use of aspirin; I97.89 Other postprocedural complications and disorders of the circulatory system, not elsewhere classified; G57.90 Unspecified mononeuropathy of unspecified lower limb; E11.41 Type 2 diabetes mellitus with diabetic mononeuropathy; Z68.29 Body mass index [BMI] 29.0-29.9, adult; N17.9 Acute kidney failure, unspecified; R01.1 Cardiac murmur, unspecified; M20.42 Other hammer toe(s) (acquired), left foot; E11.621 Type 2 diabetes mellitus with foot ulcer; L97.522 Non-pressure chronic ulcer of other part of left foot with fat layer exposed; E78.5 Hyperlipidemia, unspecified; B35.1 Tinea unguium; L57.0 Actinic keratosis
CPT/HCPCS: 36415; 36569; 70110; 71275; 72100; 73620; 73630; 73718; 74176; 76000; 80048; 80053; 81001; 82962; 83036; 83605; 85025; 85610; 85730; 87015; 87040; 87070; 87075; 87077; 87102; 87116; 87149; 87186; 87205; 87206; 87449; 87640; 88304; 88305; 88311; 93005; 93306; 93312; 93320; 93325; 94640; 94762; 97116; 97162; 97530; 97802; 99285; J7030; J7040; Q9967; A4216; J2405

== ENCOUNTER 2018-09-15 07:54 | Outpatient (RCR) | payer MEDICAID, SELFPAY ==
[2018-09-13 01:13] VITALS: BP 120/70; BP 160/70; BMI 27.1
--- NOTE | 2018-10-06 08:13 | CR.ITP_ITS ---
General Information - General Information Admitting Diagnosis: CABG - Education/Goals Barriers to Learning: None - Pt was discharged from CR due to noncompliance. Pt has not attende CR since 09/03/2018. No call no show. Cardiac Rehabilitation Goals: 1. Maintain the individual as the primary focus of care. 2. To improve the patient's quality of life. 3. Identification of cardiac risk factors and provide cardiac risk factor management. 4. Enhance the psychosocial status of the patient. 5. Reconditioning enough to allow the patient to resume customary activities. 6. Control symptoms of cardiac disease Scale for measuring improvement of personal goals: Enter appropriate number in Comments. 2 = Unchanged. 3 = Slightly Better. 4 = Moderate Improvement. 5 = Met my Goal Exercise - Final/Discharge - Visit Date of Eval: 10/06/18 Session #:: 14 - Stages of Change Stages of Change:: Action - Physician Prescribed Exercise Modalities: Treadmill, Rower, Airdyne Frequency (days/week): 3 Duration (Minutes):: 30-45 Intensity: 60-80% age predicted maximum heart rate reserve METs - Progression: 0.5-1.0 MET, RPE 11-14 WEEK: 4.5 Target Heart Rate:: 127-139 Max HR 138 - Hypertension Resting Blood Pressure:: 120/70 Peak Exercise Blood Pressure:: 160/70 - Intervention Home Exercise/Activity Goal:: Moderate Exercise 30 min/day x 5 days/wk - Education Goal Progress: Progressing - Exercise Program Goals Exercise Program Goals: Aerobic Activity >30 min, B/P <130/80 Nutrition - Initial Assessment - Program Goals Nutrition Program Goals: LDL <70. Total Cholesterol <200. HDL >45. Triglycerides <150. HgbA1C <7%. BMI <25 - Diabetes Do you monitor your blood sugar at home?: Yes Nutrition - Final Assessment - Program Goals Nutrition Program Goals: LDL <70. Total Cholesterol <200. HDL >45. Triglycerides <150. HgbA1C <7%. BMI <25 - Visit Date of Eval: 10/06/18 - Stages of Change Stages of Change:: Action - Diabetes Diabetes:: Yes - Weight Management Weight:: 98.43 kg - Education Education Goal Reached?: No Tobacco - Initial Assessment - Program Goals Tobacco Program Goals: Complete smoking cessation. Attend education classes. Improve Knowledge Test score - Learning Barriers Learning Barriers: Vision, Ready to Learn Tobacco - Final Assessment - Program Goals Tobacco Program Goals: Complete smoking cessation. Attend education classes. Improve Knowledge Test score - Stage of Change Stages of Change:: Action - Family Support Do you have family support?: Yes - Intervention Smoking Cessation Referral:: No Individual Education/Counseling:: No Education Schedule Given:: Yes - Education Education Goal Reached?: No Psychosocial - Initial Assess - Target Goals Target Goals: Assess presence or absence of depression. Using a valid screening tool, maximizes coping skills. Positive support system - Psychosocial Test Tool Used:: HANDS Depression Questionnaire - Assistive Devices Fall Risk Assessed:: Yes Psychosocial - Final Assessmen - Target Goals Target Goals: Assess presence or absence of depression. Using a valid screening tool, maximizes coping skills. Positive support system - Stages of Change Stages of Change:: Action - Psychosocial Test Tool Used:: HANDS Depression Questionnaire - Intervention PS - Interventions: Yes Attend Stress Management Classes, Yes Uses Stress Management Skills, No Referral to Mental Health, No Referral to [facility] Case Management, No Referral to Physician - Assistive Devices Assistive Devices:: None Fall Risk Assessed:: Yes Patient Health Questionnaire Discharge Assessment 1. Little interest or pleasure in doing things: Several days 2. Feeling down, depressed, or hopeless: Several days 3. Trouble falling or staying asleep, or sleeping too much: More than half the days 4. Feeling tired or having little energy: Not at all 5. Poor appetite or overeating: Several days 6. Feeling bad about yourself -- or that you are a failure or have let yourself or your family down: Several days 7. Trouble concentrating on things, such as reading the newspaper or watching t elevision: Not at all 8. Moving or speaking so slowly that other people could have noticed. Or the opposite - being so fidgety or restless that you have been moving around a lot more than usual: Not at all 9. Thoughts that you would be better off , or of hurting yourself in some way: Not at all How difficult have these problems made it for you to do your work, take care of things at home, or get along with other people?: Somewhat difficult Total Score: 6 Self-Efficacy Discharge Assessment We would like to know how confident you are in doing certain activities. Please select your confidence level for:: Select your confidence level for the following using the scale 1-10 where 1 is not at all confident and 10 is totally confident. Your score is the average of all 6 responses. Fatigue: How confident are you that you can keep the fatigue caused by your disease from interfering with the things you want to do? Select Number: 7 Physical Discomfort or Pain: How confident are you that you can keep the physical discomfort or pain of your disease from interfering with the things you want to do? Select Number: 8 Emotional Distress: How confident are you that you can keep the emotional distress caused by your disease from interfering with the things you want to do? Select Number: 8 Other Symptoms or Health Problems: How confident are you that you can keep other symptoms or health problems from interfering with the things you want to do? Select Number: 6 Different Tasks and Activities: How confident are you that you can do the different tasks and activities needed to manage your health condition so as to reduce your need to see a doctor? Select Number: 8 Medication: How confident are you that you can do things other than just taking medication to reduce how much your illness affects your everyday life? Select Number: 7 Total Score:: 7
[2018-10-06 08:24] VITALS: BP 120/70; BP 160/70
== END 2018-10-12 23:59 ==
LOC: CR 07:54
PROVIDERS: Family Provider Family Medicine; PCP Family Medicine; Referring Provider Internal Medicine Cardiovascular Disease; Visit Provider Internal Medicine Cardiovascular Disease
DX: I11.0 Hypertensive heart disease with heart failure (principal); I50.33 Acute on chronic diastolic (congestive) heart failure; I25.10 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of native coronary artery without angina pectoris; Z95.1 Presence of aortocoronary bypass graft
CPT/HCPCS: 93798

== ENCOUNTER 2018-09-21 18:21 | Inpatient (IN) | payer MEDICAID, SELFPAY ==
[2018-09-21] VITALS (12 sets, daily range): BP systolic 146–162; BP diastolic 69–82; PULSE 69–76; RESP 16–19; TEMP 37.1–37.4; O2SAT 91–97; BMI 29.0; BMI 30.4; BMI 30.3
--- NOTE | 2018-09-21 19:27 | EKG12_ITS ---
Test Reason : SOB Blood Pressure : / mmHG Vent. Rate : 071 BPM Atrial Rate : 071 BPM P-R Int : 250 ms QRS Dur : 088 ms QT Int : 446 ms P-R-T Axes : 027 031 054 degrees QTc Int : 484 ms Sinus rhythm with 1st degree A-V block with Blocked Premature atrial complexes Nonspecific T wave abnormality Prolonged QT Abnormal ECG Confirmed by IMANI GILLILAND, RADHA ([id number]), subeditor GALINDO BECKFORD ([id number]) on 09/23/2018 8:07:58 AM Referred By: Corine Flores Confirmed By:RADHA DIALLO MD
--- NOTE | 2018-09-21 19:41 | RAD_ITS ---
STUDY: X-RAY CHEST REASON FOR EXAM: Male, 58 years old. Shortness of breath bilateral leg edema TECHNIQUE: Frontal portable view of the chest was performed COMPARISON: 09 Sep 2018 FINDINGS: There is no pneumothorax, pneumonia. There is a small right pleural effusion. There is mild pulmonary edema. There is moderate enlargement of the cardiomediastinal silhouette. Left pleural cavity is clear. Sternotomy wires are present. Osseous structures are unremarkable. Left approximately decline is present terminating with its tip in the SVC right atrial junction. RAD/Chest 1 View (Portable) IMPRESSION: 1. Moderate cardiomegaly, prior open heart surgery. 2. Mild pulmonary edema. 3. Small right pleural effusion. Electronically Signed: Ray Watters, at 20:03 EDT Tel , Service support ,
[2018-09-21] MEDS: Aspirin 81 MG TAB.CHEW 324 MG PO (19:55)
[2018-09-21 19:57] LABS: Absolute Lymphocyte Count 1.33 X10^3/ul (0.83-4.51); Absolute Neutrophil Count 8.8 X10^3/uL (2.0-7.7); Basophil# 0.06 X10^3/uL; Basophil% 0.5 % (0-1); Differential Indicated SCAN CRITERIA MET; Eosinophil# 0.21 X10^3/uL; Eosinophils% 1.7 % (0-5); Hematocrit 24.6 % (40-54); Hemoglobin 8.5 g/dl (13.0-16.5); Lymphocyte # 1.33 X10^3/ul (4.0); Lymphocyte % 10.8 % (19-41); Mean Corp Hgb Conc 34.6 g/gl (32-36); Mean Corpuscular Hgb 29.3 pg (27.0-32.0); Mean Corpuscular Volume 84.8 fL (80-94); Mean Platelet Vol. 9.3 fl (6.2-12.0); Monocyte# 1.69 X10^3/uL; Monocyte% 13.7 % (0-10); Neutrophil # 8.84 X10^3/uL (2.7-7.7); Neutrophil % 71.8 % (47-70); POSITIVE COUNT NO; POSITIVE DIFFERENTIAL YES; POSITIVE MORPHOLOGY NO; Platelet Count 484 K/mm3 (150-450); RBC Distribution Width CV 13.4 % (11.6-14.6); RBC Distribution Width SD 41.1 fl (35.1-43.9); White Blood Count 12.3 K/mm3 (4.4-11.0)
[2018-09-21 20:17] LABS: Anion Gap 9 (5-15); BUN 20 mg/dL (7-18); BUN/Creat Ratio 17.9 RATIO (10-20); Calcium,Total 8.4 mg/dL (8.5-10.1); Chloride 99 mmol/L (98-107); Creatinine, Serum 1.12 mg/dL (0.70-1.30); Differential Comment SCANNED; EST Glomerular Filtration Rate 71 mL/min (>60); Est Glom Filt Rate - Afr Amer 86 mL/min (>60); Estimated Creatinine Clearance 79.27 ml/min; Glucose 114 mg/dL (74-106); Potassium 3.5 mmol/L (3.5-5.1); Sodium Level 132 mmol/L (136-145)
--- NOTE | 2018-09-21 20:28 | ED.VISSUMM ---
- ER Visit Summary Date of Service: 09/21/18 Chief Complaint: [] History of Present Illness: The patient is a 58 M shortness of breath the emergency department shortness of breath that started 2 days ago. Patient complains of exertional dyspnea and more than a 5 pound weight gain. Patient complains of diffuse swelling to his legs. Patient had three-vessel CABG in May of this year. Patient has a history of coronary artery disease, diabetes, hypertension, and hyponatremia. Patient denies any fever or cough. He said some intermittent chest tightness. [] Physical Examination: [HEENT-PERRLA, EOMI. Cranial nerves II through XII grossly intact. TMs clear. Mucous membranes moist. No adenopathy. Cardiovascular-regular rate and rhythm without murmur or ectopy Lungs-good aeration bilaterally. Patient has few rales in the bases. No accessory muscle use or retractions. Abdomen-normoactive bowel sounds, soft, nontender, no rebound or rigidity, no peritoneal signs. Extremities-intact ?4, normal range of motion, normal pulses, atraumatic. Patient has bilateral lower extremity edema +3 pitting.] Test Results: [EKG obtained arrival shows sinus rhythm with a ventricular rate of 71 bpm with some nonspecific ST changes. CBC with differential showed a white count of 12.3, hemoglobin 8.5, hematocrit 25, platelets 484. Chemistry showed a sodium 132, potassium 3.5, chloride 99, CO2 24, BUN 20, creatinine 1.12 and glucose 114. Troponin is less than 0.015. BNP is pending. Chest x-ray obtained showed mild pulmonary edema and small right pleural effusion and some cardiomegaly.] Emergency Department Course and Treatment: [Patient was given Lasix 40 mill grams IV and had an inch of Nitropaste placed to the anterior chest wall.] Treatment Plan: [Admit ] Disposition: [Admit] Impression: [Dyspnea CHF exacerbation Anemia] This note was generated with [employer] dictation software. It may contain incorrect words, spelling, and punctuation that were not noted in review of the chart prior to signing ED Disposition - Plan for ED Patient: Referrals: Delgado Smith [Primary Care Provider] -
--- NOTE | 2018-09-21 20:31 | HP.PCM_ITS ---
Problem List (1) Diastolic dysfunction with acute on chronic heart failure Status: Acute (2) DM II (diabetes mellitus, type II), controlled Status: Chronic Qualifiers: Diabetes mellitus protective officer insulin use: without protective officer use Diabetes mellitus complication status: with other specified complication Qualified Code(s): E11.69 - Type 2 diabetes mellitus with other specified complication (3) MSSA bacteremia Status: Chronic (4) Osteomyelitis Status: Chronic Qualifiers: Osteomyelitis type: unspecified type Osteomyelitis location: unspecified site Qualified Code(s): M86.9 - Osteomyelitis, unspecified (5) Chronic ulcer of left foot with fat layer exposed Status: Chronic (6) H/O coronary artery bypass surgery Status: Chronic Comment: CABG x 3 WALL-LAD, Free MAIK-OM, SVG-RPDA 06/12/18 (7) Essential hypertension Status: Chronic (8) HLD (hyperlipidemia) Status: Chronic Qualifiers: Hyperlipidemia type: unspecified Qualified Code(s): E78.5 - Hyperlipidemia, unspecified (9) GERD (gastroesophageal reflux disease) Status: Chronic Qualifiers: Esophagitis presence: esophagitis presence not specified Qualified Code(s): K21.9 - Gastro-esophageal reflux disease without esophagitis History of Present Illness Date of Admission: 09/21/18 Chief Complaint: Dyspnea, weight gain, edema The patient is a 58 y/o M w/ PMHx: Chronic Normocytic Anemia, Obesity, HTN, HLD, Diastolic CHF, Diabetes mellitus type II, GERD, PAF, CAD s/p CABG x 3 who presents to the [facility] ED on 09/21/18 with history of ~ 2 days of mild exertional dyspnea, worsening lower extremity edema, > 5 lb weight gain (3+ BL LE pitting edema) over the last 48 hours with mild orthopnea and concurrent intermittent chest tightness, midsternal without radiation with no nausea, emesis or diaphoresis associated prompting evaluation. He had recent evaluation per his Equities Analyst the week prior and noted having been stable at that time. He was recently evaluated for infected left middle toe with wound with eventually noted osteomyelitis and MSSA bacteremia, currently continued on IV ancef until 10/10/18 per ED direction following w/ Dr. Barnett. Work-up in the ED included T 98.8, heart rate 71, BP 159/82, respiratory rate 19, 91% on room air with improvement to 97% on room air, CBC with WC 12.3, hemoglobin 8.5, platelet 44 with left shift, BMP with sodium 132, BUN/creatinine 20/1.12, glucose 114, troponin less than 0.015, BNP pending, EKG with SR with no acute evidence of ischemia, CXR w/ moderate cardiomegaly with prior CABG evident, mild pulmonary edema, small right pleural effusion. In the ED patient administered Nitro-Bid, Lasix 40 mg IV x1, aspirin therapy. Past Medical History Past Medical History (Chronic Problems): Chronic Problems (Last Reviewed 07/25/18 @ 08:52 by Fredo Rodriguez MD) HLD (hyperlipidemia) (Chronic) GERD (gastroesophageal reflux disease) (Chronic) DM II (diabetes mellitus, type II), controlled (Chronic) MSSA bacteremia (Chronic) Hammer toe of left foot (Chronic) Osteomyelitis (Chronic) Chronic ulcer of left foot with fat layer exposed (Chronic) Postoperative atrial fibrillation (Chronic 06/12/18) Sinus bradycardia (Chronic) Atherosclerosis of coronary artery without angina pectoris (Chronic) CABG x 3 WALL-LAD, Free MAIK-OM, SVG-RPDA 06/12/18 H/O coronary artery bypass surgery (Chronic 06/12/18) CABG x 3 WALL-LAD, Free MAIK-OM, SVG-RPDA 06/12/18 Essential hypertension (Chronic) Medical History: Medical History (Last Reviewed 07/25/18 @ 08:52 by Fredo Rodriguez MD) Postoperative atrial fibrillation (Chronic) Onset Date: 06/12/18 I97.89, I48.91 Sinus bradycardia (Chronic) R00.1 Diastolic dysfunction with acute on chronic heart failure (Chronic) I50.33 Atherosclerosis of coronary artery without angina pectoris (Chronic) I25.10 CABG x 3 WALL-LAD, Free MAIK-OM, SVG-RPDA 06/12/18 Essential hypertension (Chronic) I10 Cataracts, both eyes H26.9 Diabetic retinopathy E11.319 GERD (gastroesophageal reflux disease) K21.9 Normocytic anemia D64.9 Obesity (BMI 30.0-34.9) E66.9 Type 2 diabetes mellitus E11.9 Allergies Penicillins [PCN] Allergy (Verified 09/21/18 18:23) Unknown Home Medications: Ambulatory Orders Medication Instructions Recorded Nitroglycerin (INPATIENT USE) 0.4 mg SUBLINGUAL Q5M PRN #20 tab 05/21/18 [Nitrostat] atorvastatin 80 mg tablet 80 mg PO QHS 07/24/18 glimepiride 2 mg tablet 2 mg PO DAILY tab 07/24/18 pantoprazole 40 mg tablet,delayed 40 mg PO DAILY 07/24/18 release furosemide 20 mg tablet 20 mg PO DAILY PRN PRN 07/25/18 Amlodipine Besylate 5 mg PO BID 09/09/18 Aspirin E.C. [Ecotrin] 81 mg PO DAILY@0800 09/09/18 Lisinopril [Zestril] 20 mg PO BID 09/09/18 Cefazolin 2 gm IV Q8 25 Days #75 vial 09/15/18 Metoprolol Tartrate [Lopressor 25 mg PO BID #60 tablet 09/16/18 (beta leonardo)] Oxycodone [Oxyir] 5 mg PO Q4H PRN PRN 7 Days #40 tab 09/16/18 Surgical History: Surgical History (Last Reviewed 07/25/18 @ 08:52 by Fredo Rodriguez MD) H/O coronary artery bypass surgery (Chronic) Onset Date: 06/12/18 Z95.1 CABG x 3 WALL-LAD, Free MAIK-OM, SVG-RPDA 06/12/18 Amputated toe S98.139A History of left heart catheterization Onset Date: 05/20/18 Z98.890 Hx of cholecystectomy Z90.49 S/P meniscectomy Z98.890 Surgical History: cataract, cholecystectomy, coronary bypass surgery, total knee arthroplasty, - - Prior and recent toe partial amputation, skin cancer face resection. Psychiatric History: No pertinent psych hx Lives: Spouse/ Significant Other Smoking Status: Never smoker Tobacco Use: Non-smoker Alcohol: Occasional Drugs: None - *Family History Maternal Family History: Family History (Last Reviewed 07/25/18 @ 08:52 by Fredo Rodriguez MD) Mother Diabetes History Items: Diabetes Paternal Family History: Family History (Last Reviewed 07/25/18 @ 08:52 by Fredo Rodriguez MD) Mother Diabetes History Items: Unknown - Patient does not know his paternal family history. Review of Systems Constitutional: Reports: Malaise, Weakness, Fatigue. Denies: Chills, Fever, Weight Change HEENT: Denies: Head Aches, Sinus Congestion, Sinus Drainage Cardiovascular: Reports: Chest Tightness, Edema, Orthopnea. Denies: Chest Pain, Palpitations Respiratory: Reports: Shortness of breath upon exertion. Denies: Cough, Shortness of breath at rest, Sputum production Gastrointestinal: Denies: Abdominal Pain, Nausea, Vomiting Genitourinary: Denies: Dysuria Musculoskeletal: Denies: Joint Pain, Joint Tenderness Skin: Reports: Skin Changes. Denies: Rash, Wounds Neurological: Denies: Numbness, Tingling, Focal weakness Psychiatric: Denies: Anxiety, Depression, Homicidal Ideations, Suicidal Ideations Hematologic/ Lymphatic: Reports: Anemia, Easy Bruising, Easy Bleeding VTE Information - Inpt Only VTE Present on Admission: No VTE Mechan Device Prophylaxis: SCD's VTE Pharm Prophylaxis ordered?: Yes Subjective: Seated upright in ED bed, mildly fatigued appearance otherwise no acute distress. Objective: Physical Examination: General: awake, alert, oriented x 3 and cooperative, seated upright in the ED bed in no apparent distress. Skin: normal color, turgor, no icterus, cyanosis except left middle toe status post distal amputation, sutures in place, well-appearing, pedal edema is present. HEENT: AT/NC, EOMI, PERRLA, MMM, no carotid bruits, minimal JVD noted. Lungs: CTA bilaterally, moderate effort, moderate decrease BL bases, minimal rales, no ronchi or wheezing. Heart: Regular rate and rhythm; no gallop, rub audible. Abdomen: soft, obese, NTTP, ND, normal BS, no HSM. Extremities: no cyanosis, clubbing, BL LE 3+ pitting edema pedal to proximal fisher. Neurological: patient awake, alert, oriented x 3; cognitive function intact; pupils equally reactive to light and accomodation; cranial nerves II-XII grossly normal, moving all 4 extremities, no focal deficits, strength moderately hao bally decreased secondary to acute presentation. Psychiatric: affect appears normal, no acute evidence of depressive or anxiety feelings. - Physical Exam Vital Signs Temp Pulse Resp BP Pulse Ox 98.8 F 72 16 162/78 H 97 09/21/18 20:07 09/21/18 20:07 09/21/18 20:07 09/21/18 20:07 09/21/18 20:07 Oxygen Delivery Method Room Air Weight: 231 lb 0.711 oz Body Mass Index (BMI) 30.4 Laboratory Tests Past 24 Hrs 09/21/18 09/21/18 09/21/18 19:31 19:31 19:31 WBC 12.3 H RBC 2.90 L Hgb 8.5 L Hct 24.6 L MCV 84.8 MCH 29.3 MCHC 34.6 RDW 13.4 RDW Differential 41.1 Plt Count 484 H MPV 9.3 Immature Gran % (Auto) 1.500 H Neut % (Auto) 71.8 H Lymph % (Auto) 10.8 L [place] % (Auto) 13.7 H Eos % (Auto) 1.7 Baso % (Auto) 0.5 Absolute Neuts (auto) 8.8 H Absolute Lymphs (auto) 1.33 Total Counted Not Reportable Differential Comment SCANNED Sodium 132 L Potassium 3.5 Chloride 99 Carbon Dioxide 24.0 Anion Gap 9 BUN 20 H Creatinine 1.12 Estim Creat Clear Calc 79.27 Est GFR (MDRD) Af Amer 86 Est GFR (MDRD) Non-Af 71 BUN/Creatinine Ratio 17.9 Glucose 114 H Calcium 8.4 L Troponin I < 0.015 B-Natriuretic Peptide Pending Assessment/Plan All Active Problems (Last Reviewed 07/25/18 @ 08:52 by Fredo Rodriguez MD) Hyponatremia (Resolved) Aortic valve vegetation (Ruled-out) Sepsis (Acute) Diastolic dysfunction with acute on chronic heart failure (Acute) The patient is a 58 y/o M w/ PMHx: Chronic Normocytic Anemia, Obesity, HTN, HLD, Diastolic CHF, Diabetes mellitus type II, GERD, PAF, CAD s/p CABG x 3 who presents to the [facility] ED on 09/21/18 with history of ~ 2 days of mild exertional dyspnea, worsening lower extremity edema, > 5 lb weight gain over the last 48 hours with mild orthopnea and concurrent intermittent chest tightness, midsternal without radiation with no nausea, emesis or diaphoresis associated prompting evaluation. (1) Acute Decompensated Diastolic CHF: Work-up in the ED included T 98.8, heart rate 71, BP 159/82, respiratory rate 19, 91% on room air with improvement to 97% on room air, CBC with WC 12.3, hemoglobin 8.5, platelet 44 with left shift, BMP with sodium 132, BUN/creatinine 20/1.12, glucose 114, troponin less than 0.015, BNP pending, EKG with SR with no acute evidence of ischemia, CXR w/ moderate cardiomegaly with prior CABG evident, mild pulmonary edema, small right pleural effusion. Patient administered IV lasix in the ED, will admit to PCU, maintain on cardiac telemetry, obtain cardiac enzyme series, obtain serial EKGs, continue IV lasix diuresis, monitor I/Os, maintain on intake restriction, continue medical therapy w/ asa, statin, BB, ACEI, IV lasix as noted. Will obtain TSH and magnesium level. Most recent ECHO noted 09/10/18 with EF 65%, stage III diastolic dysfunction, moderately enlarged LA, normal RA, questionable tiny mobile mass noted on the right coronary cusp with follow-up BRODY without evidence of vegetation. Cardiology consulted, pending. PRN morphine to decrease afterload, continue oxygen supplementation, if necessary will position w/ upright position with legs off bed to decrease preload. (2) Recent L Middle Toe Distal MSSA Infection, Osteomyelitis with associated Bacteremia: Recent evaluation for infected left middle toe with wound with eventually noted osteomyelitis and MSSA bacteremia, s/p distal tip amputation, currently continued on IV ancef until 10/10/18 per ED direction following w/ Dr. Barnett. Wound RN consulted, elevation. (3) CAD: s/p CABG x3 05/2018, will continue home regimen asa, statin, BB, ARB. (4) Hypertension: Continue home regimen including Norvasc, IV Lasix, lisinopril, metoprolol, PRN hydralazine. (5) Hyperlipidemia: Continue home statin regimen. AM FLP. (6) PAF: We will continue on home metoprolol regimen. Not anticoagulated. Maintained on aspirin therapy. (7) Diabetes mellitus type II: Hold oral home regimen, ADA diet, accu checks w/ ISS. (8) Chronic normocytic anemia: Admission Hgb 8.5, baseline prior 8-9 baseline, stable, trend. (9) GERD: PPI. (10) DVT Prophylaxis: SCDs, lovenox. Code Visit Inpatient E&M: 98451 Init Hosp L3
[2018-09-21] MEDS: Nitroglycerin Oint 1 INCH PACKET TRANSDERM. (20:48)
[2018-09-21] MEDS: Furosemide 40 MG/4 ML Vial IV (20:49)
[2018-09-21 20:51] LABS: BNP,B-Type NATRIURETIC PEPTIDE 721.9 pg/mL (0-100)
--- NOTE | 2018-09-21 21:55 | EKG12_ITS ---
Test Reason : NITRO GTT Blood Pressure : / mmHG Vent. Rate : 058 BPM Atrial Rate : 072 BPM P-R Int : 000 ms QRS Dur : 090 ms QT Int : 462 ms P-R-T Axes : 035 019 054 degrees QTc Int : 453 ms Sinus rhythm with 2nd degree A-V block (Mobitz I) Poor R- wave Progression Abnormal ECG Confirmed by THALIA GILLILAND, GUSTAVO ([id number]), industrial editor MYKEL HORTON ([id number]) on 09/24/2018 11:59:09 AM Referred By: Corine Flores Confirmed By:GUSTAVO VÁSQUEZ MD
[2018-09-21 22:18] LABS: Magnesium 1.3 mg/dL (1.6-2.6); Thyroid Stim Hormone (TSH) 2.36 uIU/mL (0.358-3.74)
[2018-09-21] MEDS: Cefazolin 2 GM in 0.9% Normal Saline 100 ML IV (23:27)
[2018-09-21] MEDS: amLODIPine 5 MG Tablet PO (23:34)
[2018-09-21] MEDS: Atorvastatin Calcium 80 MG Tablet PO (23:34)
[2018-09-21] MEDS: Lisinopril 20 MG Tablet PO (23:34)
[2018-09-21] MEDS: 0.9% NaCl Peripheral Flush Adult/Peds IV (23:36)
[2018-09-21 23:46] LABS: Bedside Glucose 109 mg/dL (70-110)
[2018-09-22] VITALS (15 sets, daily range): BP systolic 140–187; BP diastolic 61–88; PULSE 58–81; RESP 16–18; TEMP 36.6–37.4; O2SAT 94–96
[2018-09-22] MEDS: Magnesium Sulfate 4gm/100mL 4 GM/100 ML IV.SOLN. IV (00:45)
[2018-09-22 01:46] LABS: Absolute Lymphocyte Count 1.44 X10^3/ul (0.83-4.51); Absolute Neutrophil Count 7.1 X10^3/uL (2.0-7.7); Basophil# 0.06 X10^3/uL; Basophil% 0.6 % (0-1); Eosinophil# 0.26 X10^3/uL; Eosinophils% 2.4 % (0-5); Hematocrit 23.7 % (40-54); Hemoglobin 8.1 g/dl (13.0-16.5); Lymphocyte # 1.44 X10^3/ul (4.0); Lymphocyte % 13.5 % (19-41); Mean Corp Hgb Conc 34.2 g/gl (32-36); Mean Corpuscular Hgb 29.2 pg (27.0-32.0); Mean Corpuscular Volume 85.6 fL (80-94); Mean Platelet Vol. 9.3 fl (6.2-12.0); Monocyte# 1.59 X10^3/uL; Monocyte% 14.9 % (0-10); Neutrophil # 7.13 X10^3/uL (2.7-7.7); Platelet Count 486 K/mm3 (150-450); RBC Distribution Width CV 13.4 % (11.6-14.6); RBC Distribution Width SD 42.6 fl (35.1-43.9); Red Blood Count 2.77 M/mm3 (4.6-6.2); White Blood Count 10.7 K/mm3 (4.4-11.0)
[2018-09-22 02:03] LABS: Differential Comment SCANNED; Differential Indicated SCAN CRITERIA MET; POSITIVE COUNT NO; POSITIVE DIFFERENTIAL YES; POSITIVE MORPHOLOGY NO; Platelet Estimate SLT INC (ADEQ)
[2018-09-22 02:09] LABS: Anion Gap 8 (5-15); BUN 20 mg/dL (7-18); BUN/Creat Ratio 17.7 RATIO (10-20); Calcium,Total 8.2 mg/dL (8.5-10.1); Chloride 100 mmol/L (98-107); Cholesterol 80 mg/dL (200); Creatinine, Serum 1.13 mg/dL (0.70-1.30); EST Glomerular Filtration Rate 70 mL/min (>60); Est Glom Filt Rate - Afr Amer 85 mL/min (>60); Estimated Creatinine Clearance 78.56 ml/min; Glucose 129 mg/dL (74-106); High Density Lipoprotein 32 mg/dL; Potassium 3.4 mmol/L (3.5-5.1); Sodium Level 133 mmol/L (136-145); Triglycerides 102 mg/dL; Very Low Density Lipoprotein 20 mg/dL (5-40)
[2018-09-22] MEDS: 0.9% NaCl Peripheral Flush Adult/Peds IV ×5 (04:49→22:23)
[2018-09-22] MEDS: Cefazolin 2 GM in 0.9% Normal Saline 100 ML IV ×3 (05:42→22:22)
--- NOTE | 2018-09-22 05:55 | EKG12_ITS ---
Test Reason : AM EKG Blood Pressure : / mmHG Vent. Rate : 067 BPM Atrial Rate : 081 BPM P-R Int : 000 ms QRS Dur : 092 ms QT Int : 446 ms P-R-T Axes : 055 038 058 degrees QTc Int : 471 ms Sinus rhythm with 2nd degree A-V block (Mobitz I) Poor R- Wave Progreession Abnormal ECG Confirmed by THALIA GILLILAND, GUSTAVO ([id number]), school photograph editor MYKEL HORTON ([id number]) on 09/24/2018 11:50:32 AM Referred By: Corine Flores Confirmed By:GUSTAVO VÁSQUEZ MD
[2018-09-22 07:00] LABS: Bedside Glucose 144 mg/dL (70-110)
--- NOTE | 2018-09-22 07:49 | PN_ITS ---
Subjective: Chief complaint: Follow-up after admission for acute on chronic decompensated diastolic CHF. Patient seen and examined. No acute events overnight. He mentioned that his breathing is getting better, has been ambulating without worsening shortness of breath. Leg edema still the same. He mentioned that he gained around 6 pounds in the last couple of days. He denied chest pain. His vital signs are stable, afebrile. - Physical Exam General: Alert, Oriented x3, Cooperative, No apparent distress HEENT: Atraumatic, PERRLA, EOMI, Normocephalic Oral: Moist Mucosa, No Gingival or Mucosal Lesions/ Ulcerations Neck: Supple, No JVD, Negative Carotid Bruits, Trachea Midline, Thyroid Normal Size and Texture Lungs: No rhonchi, No wheeze, No rales, Diminished, - - Decreased breath sounds bilaterally, more the bases, otherwise clear. Cardiovascular: Regular rate, Regular Rhythm, Normal S1, Normal S2, PMI Normal Abdomen: Bowel Sounds Present, Soft, Non Tender, Non-Distended, No Hepato- splenomegaly Extremities: No clubbing, No cyanosis, Edema - ++ Edema. Skin: No rashes, Ulcer/ Wound Lymphatic: No Cervical, Supraclavicular, or Inguinal Adenopathy Neurological: Cranial nerves II-XII grossly intact, Motor Exam 5/5 strength throughout Psych/Mental Status: Normal Affect, Appropriate, Alert and oriented to time, place, person, mood and affect Vital Signs Temp Pulse Resp BP Pulse Ox 99.3 F H 81 18 140/69 H 94 09/22/18 04:47 09/22/18 04:47 09/22/18 04:47 09/22/18 04:47 09/22/18 04:47 Oxygen Delivery Method Room Air Weight: 227 lb 1.218 oz Body Mass Index (BMI) 30.3 Intake and Output for Last 24 Hours 09/20/18 09/21/18 09/22/18 23:59 23:59 23:59 Intake Total 148 / 148 131 / 131 Output Total 625 / 625 1200 / 1200 Balance -477 / -477 -1069 / -1069 Laboratory Tests Past 24 Hrs 09/21/18 09/21/18 09/21/18 19:31 19:31 19:31 WBC 12.3 H RBC 2.90 L Hgb 8.5 L Hct 24.6 L MCV 84.8 MCH 29.3 MCHC 34.6 RDW 13.4 RDW Differential 41.1 Plt Count 484 H MPV 9.3 Immature Gran % (Auto) 1.500 H Neut % (Auto) 71.8 H Lymph % (Auto) 10.8 L [place] % (Auto) 13.7 H Eos % (Auto) 1.7 Baso % (Auto) 0.5 Absolute Neuts (auto) 8.8 H Absolute Lymphs (auto) 1.33 Total Counted Not Reportable Differential Comment SCANNED Platelet Estimate Sodium 132 L Potassium 3.5 Chloride 99 Carbon Dioxide 24.0 Anion Gap 9 BUN 20 H Creatinine 1.12 Estim Creat Clear Calc 79.27 Est GFR (MDRD) Af Amer 86 Est GFR (MDRD) Non-Af 71 BUN/Creatinine Ratio 17.9 Glucose 114 H Calcium 8.4 L Magnesium Troponin I < 0.015 B-Natriuretic Peptide 721.9 H Triglycerides Cholesterol LDL Cholesterol VLDL Cholesterol HDL Cholesterol TSH 09/21/18 09/21/18 09/22/18 19:31 22:46 01:30 WBC RBC Hgb Hct MCV MCH MCHC RDW RDW Differential Plt Count MPV Immature Gran % (Auto) Neut % (Auto) Lymph % (Auto) [place] % (Auto) Eos % (Auto) Baso % (Auto) Absolute Neuts (auto) Absolute Lymphs (auto) Total Counted Differential Comment Platelet Estimate Sodium 133 L Potassium 3.4 L Chloride 100 Carbon Dioxide 25.0 Anion Gap 8 BUN 20 H Creatinine 1.13 Estim Creat Clear Calc 78.56 Est GFR (MDRD) Af Amer 85 Est GFR (MDRD) Non-Af 70 BUN/Creatinine Ratio 17.7 Glucose 129 H Calcium 8.2 L Magnesium 1.3 L Troponin I < 0.015 B-Natriuretic Peptide Triglycerides 102 Cholesterol 80 LDL Cholesterol 28 VLDL Cholesterol 20 HDL Cholesterol 32 L TSH 2.36 09/22/18 09/22/18 01:30 01:30 WBC 10.7 RBC 2.77 L Hgb 8.1 L Hct 23.7 L MCV 85.6 MCH 29.2 MCHC 34.2 RDW 13.4 RDW Differential 42.6 Plt Count 486 H MPV 9.3 Immature Gran % (Auto) 1.600 H Neut % (Auto) 67.0 Lymph % (Auto) 13.5 L [place] % (Auto) 14.9 H Eos % (Auto) 2.4 Baso % (Auto) 0.6 Absolute Neuts (auto) 7.1 Absolute Lymphs (auto) 1.44 Total Counted Not Reportable Differential Comment SCANNED Platelet Estimate SLT INC Sodium Potassium Chloride Carbon Dioxide Anion Gap BUN Creatinine Estim Creat Clear Calc Est GFR (MDRD) Af Amer Est GFR (MDRD) Non-Af BUN/Creatinine Ratio Glucose Calcium Magnesium Troponin I < 0.015 B-Natriuretic Peptide Triglycerides Cholesterol LDL Cholesterol VLDL Cholesterol HDL Cholesterol TSH POC Glucose 09/22/18 09/21/18 06:47 23:40 POC Glucose 144 H 109 Medical Necessity - Tobacco Use Smoking Status: Never smoker Tobacco Use: Non-smoker Assessment/Plan All Active Problems (Last Reviewed 07/25/18 @ 08:52 by Fredo Rodriguez MD) Diastolic dysfunction with acute on chronic heart failure (Acute) This is a 58 years old male patient presented to the emergency room because of exertional shortness of breath, leg edema and weight gain and he was found to have acute on chronic diastolic CHF, had a recent history of left middle toe MSSA infection/osteomyelitis with bacteremia. #1 acute on chronic diastolic CHF: He is on IV Lasix, continued on lisinopril and metoprolol. Symptoms started to improve, still having significant leg edema. EKG revealed sinus rhythm with second-degree AV block Mobitz type I, No acute ischemic changes, troponin is negative. TSH was normal. He had 2D echocardiogram on Aug, 2018 that revealed ejection fraction of 65%, stage III diastolic dysfunction. Today's potassium is 3.4, BUN and creatinine are stable. Plan: Continue same treatment, replace potassium, repeat BMP tomorrow morning. #2 chronic anemia: It is normocytic anemia. Patient denies any bleeding from body orifices, denied blood in stool or black stools. He is aware that he does have chronic anemia. Today's hemoglobin is 8.1 g/dL. Plan: Serum iron, TIBC, serum ferritin, stool for occult blood. #3 recent history of left middle toe MSSA infection/osteomyelitis with bacteremia: Status post distal left middle toe tip amputation. He is on IV cefazolin, complete day is October 10, 2018. #4 CAD status post CABG: Stable, troponin is negative, no acute ischemic changes on EKG. Continue aspirin, statins, lisinopril and metoprolol. #5 type 2 diabetes mellitus: Blood sugar stable, continue sliding scale. Glimepiride held. #6 hypertension: Blood pressure stable, continue Norvasc, lisinopril and metoprolol. #7 paroxysmal atrial fibrillation: Rate is controlled, continue metoprolol for rate control. Patient is not on anticoagulations. #8 hyperlipidemia: Continue statins. #9 GERD: Continue Protonix. #10 DVT prophylaxis: Subcu Lovenox. This note was generated with [employer] dictation software. It may contain incorrect words, spelling, and punctuation that were not noted in checking the note before signing. Code Visit Inpatient E&M: 55915 Subs Hosp L2
[2018-09-22 08:11] LABS: Ferritin 308 ng/mL (26-388); Iron 18 ug/dL (65-175); Iron Binding Capacity,Total 227 ug/dL (250-450); PERCENT IRON SATURATION 7.9 % (15.0-55.0)
[2018-09-22] MEDS: Enoxaparin 40 MG/0.4 ML Syringe SC (09:32)
[2018-09-22] MEDS: Aspirin E.C. 81 MG Tablet PO (09:33)
[2018-09-22] MEDS: Furosemide 40 MG/4 ML Vial IV ×2 (09:33→17:22)
[2018-09-22] MEDS: amLODIPine 5 MG Tablet PO ×2 (09:33→22:32)
[2018-09-22] MEDS: Pantoprazole Sodium 40 MG Tablet PO (09:33)
[2018-09-22] MEDS: Lisinopril 20 MG Tablet PO ×2 (09:33→22:32)
[2018-09-22] MEDS: oxyCODONE 5 MG Tablet PO ×3 (09:41→22:32)
[2018-09-22] MEDS: Metoprolol Tartrate 25 MG Tablet PO ×2 (10:08→22:32)
--- NOTE | 2018-09-22 12:11 | NURSING ---
wound photo: left 3rd toe
[2018-09-22 12:26] LABS: Bedside Glucose 180 mg/dL (70-110)
--- NOTE | 2018-09-22 12:53 | PCM.CONS.C ---
Reason for Consult Date of Consultation: 09/22/18 Reason for Consultation: Shortness of breath and irregular heart rate History of Present Illness: The patient is a 58 year old M with a past medical history significant for coronary artery disease status post coronary artery bypass surgery x3, paroxysmal atrial fibrillation, hypertension, hyperlipidemia, diastolic heart failure. He presented to the emergency room on 09/21/2018 with a 2-day history of mild exertional chest discomfort, worsening lower extremity edema with weight gain. He also had mild orthopnea and intermittent chest tightness and was admitted for further evaluation and management. He was recently admitted to the hospital with noted osteomyelitis and MSSA bacteremia for which she underwent a transesophageal echocardiogram. No significant valvular abnormalities were noted. He was subsequently discharged. He denies any paroxysmal nocturnal dyspnea. He did have some cardiac dysrhythmias and cardiology was called for further evaluation and management. [] Past Medical History Allergies/Adverse Reactions: Allergies Penicillins [PCN] Allergy (Verified 09/21/18 18:23) Unknown Home Medications: Ambulatory Orders Medication Instructions Recorded Nitroglycerin (INPATIENT USE) 0.4 mg SUBLINGUAL Q5M PRN #20 tab 05/21/18 [Nitrostat] atorvastatin 80 mg tablet 80 mg PO QHS 07/24/18 glimepiride 2 mg tablet 2 mg PO DAILY tab 07/24/18 pantoprazole 40 mg tablet,delayed 40 mg PO DAILY 07/24/18 release furosemide 20 mg tablet 20 mg PO DAILY PRN PRN 07/25/18 Amlodipine Besylate 5 mg PO BID 09/09/18 Aspirin E.C. [Ecotrin] 81 mg PO DAILY@0800 09/09/18 Lisinopril [Zestril] 20 mg PO BID 09/09/18 Metoprolol Tartrate [Lopressor 25 mg PO BID #60 tablet 09/16/18 (beta leonardo)] Oxycodone [Oxyir] 5 mg PO Q4H PRN PRN 7 Days #40 tab 09/16/18 Cefazolin 2 gm IV Q8 09/21/18 Past Medical History (Chronic Problems): Chronic Problems (Last Reviewed 07/25/18 @ 08:52 by Fredo Rodriguez MD) HLD (hyperlipidemia) (Chronic) GERD (gastroesophageal reflux disease) (Chronic) DM II (diabetes mellitus, type II), controlled (Chronic) MSSA bacteremia (Chronic) Hammer toe of left foot (Chronic) Osteomyelitis (Chronic) Chronic ulcer of left foot with fat layer exposed (Chronic) Postoperative atrial fibrillation (Chronic 06/12/18) Sinus bradycardia (Chronic) Atherosclerosis of coronary artery without angina pectoris (Chronic) CABG x 3 WALL-LAD, Free MAIK-OM, SVG-RPDA 06/12/18 H/O coronary artery bypass surgery (Chronic 06/12/18) CABG x 3 WALL-LAD, Free MAIK-OM, SVG-RPDA 06/12/18 Essential hypertension (Chronic) Surgical History: cataract, cholecystectomy, coronary bypass surgery, total knee arthroplasty, - - Prior and recent toe partial amputation, skin cancer face resection. Psychiatric History: No pertinent psych hx - *Family History Maternal Family History: Family History (Last Reviewed 07/25/18 @ 08:52 by Fredo Rodriguez MD) Mother Diabetes History Items: Diabetes Paternal Family History: Family History (Last Reviewed 07/25/18 @ 08:52 by Fredo Rodriguez MD) Mother Diabetes History Items: Unknown - Patient does not know his paternal family history. Lives: Spouse/ Significant Other Smoking Status: Never smoker Tobacco Use: Non-smoker Alcohol: Occasional Drugs: None Review of Systems - Review of Systems General: Denies: Fever, Night Sweats, Fatigue HEENT: Denies: Vision Change Cardiovascular: Reports: Chest Discomfort, Chest Heaviness, Shortness of Breath, Peripheral Edema. Denies: Orthopnea, PND, Palpitations, Lightheadedness, Dizziness, Near Syncope, Syncope Respiratory: Denies: Cough, Sputum Production, Hemoptysis Gastrointestinal: Denies: Hematemesis, Hematochezia, Melena Genitourinary: Denies: Dysuria, Hematuria Skin: Denies: Rash Neurological: Denies: Dizziness Psychiatric: Denies: Anxiety Endocrine: Denies: Unexplained Weight Loss Hematologic/ Lymphatic: Reports: Anemia Subjectve: Pleasant elderly man in no distress lying in bed Objective: Vital Signs Temp Pulse Resp BP Pulse Ox 98 F 76 16 153/88 H 94 09/22/18 10:31 09/22/18 10:31 09/22/18 10:31 09/22/18 10:31 09/22/18 10:31 Oxygen Delivery Method Room Air Weight: 227 lb 1.218 oz Body Mass Index (BMI) 30.3 Intake and Output for Last 24 Hours 09/20/18 09/21/18 09/22/18 23:59 23:59 23:59 Intake Total 148 / 148 491 / 491 Output Total 625 / 625 2500 / 2500 Balance -477 / -477 -2008 General: Awake, Alert, Oriented x 3 HEENT: PERRL, EOMI, Sclera Non Icteric Neck: Supple, Good ROM, No Lymph Node Enlargement Lungs: Diminished Brian Bases Cardiovascular: Irregular Rhythm, Normal S1, Normal S2, No Murmurs, No Rubs, No Gallops Vascular: No Carotid Bruits, Normal Femoral Pulses, Normal Radial Pulses, Normal Dorsalis Pedal Pulse, Normal Posterior Tibial Pulses Abdomen: Bowel Sounds Present, Soft, Non Tender, No HSM, No Organomegaly Extremities: No Cyanosis, No Clubbing, No edema Musculoskeletal: No Erythema Skin: No Rashes Lymphatic: No Lymph Node Enlargement Neurological: No Focal Motor or Sensory Deficit Psych/Mental Status: Appropriate 09/21/18 19:31: WBC 12.3 H, RBC 2.90 L, Hgb 8.5 L, Hct 24.6 L, MCV 84.8, MCH 29.3, MCHC 34.6, RDW 13.4, RDW Differential 41.1, Plt Count 484 H, MPV 9.3, Immature Gran % (Auto) 1.500 H, Neut % (Auto) 71.8 H, Lymph % (Auto) 10.8 L, [place] % (Auto) 13.7 H, Eos % (Auto) 1.7, Baso % (Auto) 0.5, Absolute Neuts (auto) 8.8 H, Total Counted Not Reportable 09/21/18 19:31: Sodium 132 L, Potassium 3.5, Chloride 99, Carbon Dioxide 24.0, Anion Gap 9, BUN 20 H, Creatinine 1.12, Est GFR (MDRD) Af Amer 86, Est GFR (MDRD) Non-Af 71, BUN/Creatinine Ratio 17.9, Glucose 114 H, Calcium 8.4 L, Troponin I < 0.015 09/21/18 19:31: B-Natriuretic Peptide 721.9 H 09/21/18 19:31: Magnesium 1.3 L 09/21/18 22:46: Troponin I < 0.015 09/22/18 01:30: Sodium 133 L, Potassium 3.4 L, Chloride 100, Carbon Dioxide 25.0, Anion Gap 8, BUN 20 H, Creatinine 1.13, Est GFR (MDRD) Af Amer 85, Est GFR (MDRD) Non-Af 70, BUN/Creatinine Ratio 17.7, Glucose 129 H, Calcium 8.2 L, Triglycerides 102, Cholesterol 80, LDL Cholesterol 28, VLDL Cholesterol 20, HDL Cholesterol 32 L 09/22/18 01:30: WBC 10.7, RBC 2.77 L, Hgb 8.1 L, Hct 23.7 L, MCV 85.6, MCH 29.2, MCHC 34.2, RDW 13.4, RDW Differential 42.6, Plt Count 486 H, MPV 9.3, Immature Gran % (Auto) 1.600 H, Neut % (Auto) 67.0, Lymph % (Auto) 13.5 L, [place] % (Auto) 14.9 H, Eos % (Auto) 2.4, Baso % (Auto) 0.6, Absolute Neuts (auto) 7.1, Total Counted Not Reportable 09/22/18 01:30: Troponin I < 0.015 09/22/18 01:30: Iron 18 L, TIBC 227 L, Iron Saturation 7.9 L, Ferritin 308 Rhythm: EKG: Normal sinus rhythm with evidence of Wenckebach periodicity. Assessment/Plan 1. Congestive heart failure-acute diastolic Patient presents with congestive heart failure which appears to be diastolic. The above is likely secondary to fluid overload, anemia as well as possible cardiac dysrhythmia. My recommendation will be to initiate IV diuresis He recently underwent an echocardiogram so I do not think this needs to be repeated. His other medications need to be optimized. 2. Hypertension His blood pressure appears to be under suboptimal control at this particular time. We should aggressively control his blood pressure to prevent further episodes. 3. Anemia This needs to be worked up at some point. This may be worsening his symptoms. 4. Coronary artery disease status post coronary bypass surgery And has not had any evidence of angina recently. EKG demonstrates sinus rhythm with Wenckebach and no other changes and in addition cardiac enzymes have been normal. We will continue to monitor the above expectantly. 5. Cardiac dysrhythmias Patient was noted to be in Wenckebach Mobitz type I. This is a benign rhythm and for now no changes will be made. Thank you for allowing me to participate in the care of your patient. Please don't hesitate to call if any issues arise
--- NOTE | 2018-09-22 12:58 | CON.PCM_ITS ---
Reason for Consult Date of Consultation: 09/22/18 Reason for Consultation: Shortness of breath and irregular heart rate History of Present Illness: The patient is a 58 year old M with a past medical history significant for coronary artery disease status post coronary artery bypass surgery x3, paroxysmal atrial fibrillation, hypertension, hyperlipidemia, diastolic heart failure. He presented to the emergency room on 09/21/2018 with a 2-day history of mild exertional chest discomfort, worsening lower extremity edema with weight gain. He also had mild orthopnea and intermittent chest tightness and was admitted for further evaluation and management. He was recently admitted to the hospital with noted osteomyelitis and MSSA bacteremia for which she underwent a transesophageal echocardiogram. No significant valvular abnormalities were noted. He was subsequently discharged. He denies any paroxysmal nocturnal dyspnea. He did have some cardiac dysrhythmias and cardiology was called for further evaluation and management. [] Past Medical History Allergies/Adverse Reactions: Allergies Penicillins [PCN] Allergy (Verified 09/21/18 18:23) Unknown Home Medications: Ambulatory Orders Medication Instructions Recorded Nitroglycerin (INPATIENT USE) 0.4 mg SUBLINGUAL Q5M PRN #20 tab 05/21/18 [Nitrostat] atorvastatin 80 mg tablet 80 mg PO QHS 07/24/18 glimepiride 2 mg tablet 2 mg PO DAILY tab 07/24/18 pantoprazole 40 mg tablet,delayed 40 mg PO DAILY 07/24/18 release furosemide 20 mg tablet 20 mg PO DAILY PRN PRN 07/25/18 Amlodipine Besylate 5 mg PO BID 09/09/18 Aspirin E.C. [Ecotrin] 81 mg PO DAILY@0800 09/09/18 Lisinopril [Zestril] 20 mg PO BID 09/09/18 Metoprolol Tartrate [Lopressor 25 mg PO BID #60 tablet 09/16/18 (beta leonardo)] Oxycodone [Oxyir] 5 mg PO Q4H PRN PRN 7 Days #40 tab 09/16/18 Cefazolin 2 gm IV Q8 09/21/18 Past Medical History (Chronic Problems): Chronic Problems (Last Reviewed 07/25/18 @ 08:52 by Fredo Rodriguez MD) HLD (hyperlipidemia) (Chronic) GERD (gastroesophageal reflux disease) (Chronic) DM II (diabetes mellitus, type II), controlled (Chronic) MSSA bacteremia (Chronic) Hammer toe of left foot (Chronic) Osteomyelitis (Chronic) Chronic ulcer of left foot with fat layer exposed (Chronic) Postoperative atrial fibrillation (Chronic 06/12/18) Sinus bradycardia (Chronic) Atherosclerosis of coronary artery without angina pectoris (Chronic) CABG x 3 WALL-LAD, Free MAIK-OM, SVG-RPDA 06/12/18 H/O coronary artery bypass surgery (Chronic 06/12/18) CABG x 3 WALL-LAD, Free MAIK-OM, SVG-RPDA 06/12/18 Essential hypertension (Chronic) Surgical History: cataract, cholecystectomy, coronary bypass surgery, total knee arthroplasty, - - Prior and recent toe partial amputation, skin cancer face resection. Psychiatric History: No pertinent psych hx - *Family History Maternal Family History: Family History (Last Reviewed 07/25/18 @ 08:52 by Fredo Rodriguez MD) Mother Diabetes History Items: Diabetes Paternal Family History: Family History (Last Reviewed 07/25/18 @ 08:52 by Fredo Rodriguez MD) Mother Diabetes History Items: Unknown - Patient does not know his paternal family history. Lives: Spouse/ Significant Other Smoking Status: Never smoker Tobacco Use: Non-smoker Alcohol: Occasional Drugs: None Review of Systems - Review of Systems General: Denies: Fever, Night Sweats, Fatigue HEENT: Denies: Vision Change Cardiovascular: Reports: Chest Discomfort, Chest Heaviness, Shortness of Breath, Peripheral Edema. Denies: Orthopnea, PND, Palpitations, Lightheadedness, Dizziness, Near Syncope, Syncope Respiratory: Denies: Cough, Sputum Production, Hemoptysis Gastrointestinal: Denies: Hematemesis, Hematochezia, Melena Genitourinary: Denies: Dysuria, Hematuria Skin: Denies: Rash Neurological: Denies: Dizziness Psychiatric: Denies: Anxiety Endocrine: Denies: Unexplained Weight Loss Hematologic/ Lymphatic: Reports: Anemia Subjectve: Pleasant elderly man in no distress lying in bed Objective: Vital Signs Temp Pulse Resp BP Pulse Ox 98 F 76 16 153/88 H 94 09/22/18 10:31 09/22/18 10:31 09/22/18 10:31 09/22/18 10:31 09/22/18 10:31 Oxygen Delivery Method Room Air Weight: 227 lb 1.218 oz Body Mass Index (BMI) 30.3 Intake and Output for Last 24 Hours 09/20/18 09/21/18 09/22/18 23:59 23:59 23:59 Intake Total 148 / 148 491 / 491 Output Total 625 / 625 2500 / 2500 Balance -477 / -477 -2008 General: Awake, Alert, Oriented x 3 HEENT: PERRL, EOMI, Sclera Non Icteric Neck: Supple, Good ROM, No Lymph Node Enlargement Lungs: Diminished Brian Bases Cardiovascular: Irregular Rhythm, Normal S1, Normal S2, No Murmurs, No Rubs, No Gallops Vascular: No Carotid Bruits, Normal Femoral Pulses, Normal Radial Pulses, Normal Dorsalis Pedal Pulse, Normal Posterior Tibial Pulses Abdomen: Bowel Sounds Present, Soft, Non Tender, No HSM, No Organomegaly Extremities: No Cyanosis, No Clubbing, No edema Musculoskeletal: No Erythema Skin: No Rashes Lymphatic: No Lymph Node Enlargement Neurological: No Focal Motor or Sensory Deficit Psych/Mental Status: Appropriate 09/21/18 19:31: WBC 12.3 H, RBC 2.90 L, Hgb 8.5 L, Hct 24.6 L, MCV 84.8, MCH 29.3, MCHC 34.6, RDW 13.4, RDW Differential 41.1, Plt Count 484 H, MPV 9.3, Immature Gran % (Auto) 1.500 H, Neut % (Auto) 71.8 H, Lymph % (Auto) 10.8 L, [place] % (Auto) 13.7 H, Eos % (Auto) 1.7, Baso % (Auto) 0.5, Absolute Neuts (auto) 8.8 H, Total Counted Not Reportable 09/21/18 19:31: Sodium 132 L, Potassium 3.5, Chloride 99, Carbon Dioxide 24.0, Anion Gap 9, BUN 20 H, Creatinine 1.12, Est GFR (MDRD) Af Amer 86, Est GFR (MDRD) Non-Af 71, BUN/Creatinine Ratio 17.9, Glucose 114 H, Calcium 8.4 L, Troponin I < 0.015 09/21/18 19:31: B-Natriuretic Peptide 721.9 H 09/21/18 19:31: Magnesium 1.3 L 09/21/18 22:46: Troponin I < 0.015 09/22/18 01:30: Sodium 133 L, Potassium 3.4 L, Chloride 100, Carbon Dioxide 25.0, Anion Gap 8, BUN 20 H, Creatinine 1.13, Est GFR (MDRD) Af Amer 85, Est GFR (MDRD) Non-Af 70, BUN/Creatinine Ratio 17.7, Glucose 129 H, Calcium 8.2 L, Triglycerides 102, Cholesterol 80, LDL Cholesterol 28, VLDL Cholesterol 20, HDL Cholesterol 32 L 09/22/18 01:30: WBC 10.7, RBC 2.77 L, Hgb 8.1 L, Hct 23.7 L, MCV 85.6, MCH 29.2, MCHC 34.2, RDW 13.4, RDW Differential 42.6, Plt Count 486 H, MPV 9.3, Immature Gran % (Auto) 1.600 H, Neut % (Auto) 67.0, Lymph % (Auto) 13.5 L, [place] % (Auto) 14.9 H, Eos % (Auto) 2.4, Baso % (Auto) 0.6, Absolute Neuts (auto) 7.1, Total Counted Not Reportable 09/22/18 01:30: Troponin I < 0.015 09/22/18 01:30: Iron 18 L, TIBC 227 L, Iron Saturation 7.9 L, Ferritin 308 Rhythm: EKG: Normal sinus rhythm with evidence of Wenckebach periodicity. Assessment/Plan 1. Congestive heart failure-acute diastolic * Patient presents with congestive heart failure which appears to be diastolic. The above is likely secondary to fluid overload, anemia as well as possible cardiac dysrhythmia. * My recommendation will be to initiate IV diuresis * He recently underwent an echocardiogram so I do not think this needs to be repeated. * His other medications need to be optimized. * 2. Hypertension * His blood pressure appears to be under suboptimal control at this particular time. We should aggressively control his blood pressure to prevent further episodes. * 3. Anemia * This needs to be worked up at some point. This may be worsening his symptoms. * 4. Coronary artery disease status post coronary bypass surgery * And has not had any evidence of angina recently. EKG demonstrates sinus rhythm with Wenckebach and no other changes and in addition cardiac enzymes have been normal. We will continue to monitor the above expectantly. * 5. Cardiac dysrhythmias * Patient was noted to be in Wenckebach Mobitz type I. This is a benign rhythm and for now no changes will be made. * * Thank you for allowing me to participate in the care of your patient. Please don't hesitate to call if any issues arise
[2018-09-22] MEDS: Insulin Lispro 100 UNIT/ML INSULN.PEN SQ ×2 (12:59→17:21)
--- NOTE | 2018-09-22 14:53 | CHAPLAIN ---
Type of Pastoral Visit _x__ Initial Visit ___ Follow-up Visit ___ On-call Visit ___ General Patient Visit ___ Spiritual Assessment ___ Family Conference ___ Bereavement ___ Rapid Response ___ Code Blue ___ Other (describe below) Pastoral Care Referral From _x__ Patient ___ Family ___ Nurse ___ Physician ___ Organizational Development Specialist ___ Checker Cashier ___ Other (describe below) Sacrament/Intervention _x__ Active listening ___ Anointing ___ Baptist ___ Bereavement ___ Communion ___ Charlette exploration ___ _x__ Life review _x__ Prayer ___ Reconciliation ___ Sacrament of Sick _x__ Supportive presence ___ Wedding ___ Other (describe below) Pastoral Comments
--- NOTE | 2018-09-22 15:15 | CASEMGMT ---
LLOYD GAO RE-ADMISSION NOTE: Pt admitted to [facility] 09/09/18 and discharged 09/16/18 w/dx of sepsis, MSSA bacteremia secondary to osteomyelitis of lt 3rd toe. Pt discharged home w/[facility] care home services for IV antibioitics. Pt re-admitted 09/21/18 with dx of CHF exacerbation. Pt still currently active with [facility]. Call placed to [facility] and spoke with Yisel. She was made aware pt currently admitted to [facility]. Resumption of [facility] services order placed. [facility] will need notified when pt discharged from [facility]. Discharge instructions and resumption order will need faxed to them as well upon discharge. Cindi HAM RN, CM
[2018-09-22 16:35] LABS: Bedside Glucose 150 mg/dL (70-110)
--- NOTE | 2018-09-22 22:10 | NURSING ---
This RN assessed patients vital signs at this time, he was sating on room air at 88%. Patient was placed on 2L nasal canula and was sating at 91-92%. This RN then put patients on 3L sating at 94%. Patient stated he was having some tightness with his breathing. Upon auscultation lungs were clear and breathing was of normal depth and rate.
[2018-09-22] MEDS: Atorvastatin Calcium 80 MG Tablet PO (22:32)
[2018-09-22 22:41] LABS: Bedside Glucose 124 mg/dL (70-110)
[2018-09-22] MEDS: 0.9% NaCl PICC Flush IV (23:45)
[2018-09-23] VITALS (16 sets, daily range): BP systolic 133–181; BP diastolic 54–79; PULSE 53–77; RESP 16–24; TEMP 36.7–37.3; O2SAT 90–98
[2018-09-23] MEDS: hydrALAZINE 20 MG/ML Vial 10 MG IV (00:10)
[2018-09-23] MEDS: 0.9% NaCl Peripheral Flush Adult/Peds IV ×5 (00:17→22:09)
[2018-09-23] MEDS: 0.9% NaCl PICC Flush IV (05:00)
[2018-09-23 05:14] LABS: Hematocrit 25.5 % (40-54); Hemoglobin 8.5 g/dl (13.0-16.5)
[2018-09-23 05:27] LABS: Anion Gap 9 (5-15); BUN 19 mg/dL (7-18); BUN/Creat Ratio 18.1 RATIO (10-20); Calcium,Total 8.6 mg/dL (8.5-10.1); Chloride 102 mmol/L (98-107); Creatinine, Serum 1.05 mg/dL (0.70-1.30); EST Glomerular Filtration Rate 77 mL/min (>60); Est Glom Filt Rate - Afr Amer 93 mL/min (>60); Estimated Creatinine Clearance 84.55 ml/min; Glucose 121 mg/dL (74-106); Potassium 4.4 mmol/L (3.5-5.1); Sodium Level 138 mmol/L (136-145)
[2018-09-23] MEDS: Cefazolin 2 GM in 0.9% Normal Saline 100 ML IV ×3 (05:44→22:07)
[2018-09-23 06:55] LABS: Bedside Glucose 128 mg/dL (70-110)
--- NOTE | 2018-09-23 08:00 | PN_ITS ---
Subjective: Chief complaint: Follow-up after admission for acute on chronic diastolic CHF and anemia. Patient seen and examined. No acute events overnight. According to nursing staff, patient pulse ox dropped while sleeping and he was put on oxygen. This morning, he denied any worsening shortness of breath. Still having significant bilateral leg edema. Denied chest pain or palpitation. His vital signs are stable. - Physical Exam General: Alert, Oriented x3, Cooperative, No apparent distress HEENT: Atraumatic, PERRLA, EOMI, Normocephalic Oral: Moist Mucosa, No Gingival or Mucosal Lesions/ Ulcerations Neck: Supple, No JVD, Negative Carotid Bruits, Trachea Midline, Thyroid Normal Size and Texture Lungs: No rhonchi, No wheeze, Diminished, Rales, - - Decreased breath sounds bilateral, faint basilar bilateral crackles. Cardiovascular: Regular rate, Regular Rhythm, Normal S1, Normal S2, No murmurs Abdomen: Bowel Sounds Present, Soft, Non Tender, Non-Distended, No Hepato- splenomegaly Extremities: No clubbing, No cyanosis, Edema - ++ Edema. Skin: No rashes, No breakdown Lymphatic: No Cervical, Supraclavicular, or Inguinal Adenopathy Neurological: Cranial nerves II-XII grossly intact, Neuro grossly intact Psych/Mental Status: Normal Affect, Appropriate Vital Signs Temp Pulse Resp BP Pulse Ox 99.1 F 60 16 150/72 H 90 09/23/18 05:40 09/23/18 07:00 09/23/18 05:40 09/23/18 05:40 09/23/18 07:30 Oxygen Flow Rate (L/min) 3 Oxygen Delivery Method Nasal Cannula Weight: 223 lb 12.307 oz Body Mass Index (BMI) 30.3 Intake and Output for Last 24 Hours 09/21/18 09/22/18 09/23/18 23:59 23:59 23:59 Intake Total 148 / 148 829 / 829 129.6 / 129.6 Output Total 625 / 625 3925 / 3925 725 / 725 Balance -477 / -477 -3096 / -3096 -595.4 / -595.4 Laboratory Tests Past 24 Hrs 09/22/18 09/23/18 09/23/18 01:30 05:00 05:00 Hgb 8.5 L Hct 25.5 L Sodium 138 Potassium 4.4 Chloride 102 Carbon Dioxide 27.0 Anion Gap 9 BUN 19 H Creatinine 1.05 Estim Creat Clear Calc 84.55 Est GFR (MDRD) Af Amer 93 Est GFR (MDRD) Non-Af 77 BUN/Creatinine Ratio 18.1 Glucose 121 H Calcium 8.6 Iron 18 L TIBC 227 L Iron Saturation 7.9 L Ferritin 308 POC Glucose 09/23/18 09/22/18 09/22/18 06:46 22:19 16:31 POC Glucose 128 H 124 H 150 H 09/22/18 12:21 POC Glucose 180 H Medical Necessity - Tobacco Use Smoking Status: Never smoker Tobacco Use: Non-smoker Assessment/Plan All Active Problems (Last Reviewed 07/25/18 @ 08:52 by Fredo Rodriguez MD) Diastolic dysfunction with acute on chronic heart failure (Acute) This is a 58 years old male patient presented to the emergency room because of exertional shortness of breath, leg edema and weight gain and he was found to have acute on chronic diastolic CHF, had a recent history of left middle toe MSSA infection/osteomyelitis with bacteremia. #1 acute on chronic diastolic CHF: Remained on IV Lasix, continued on lisinopril and metoprolol. Leg edema minimally improved, required some oxygen because pulse ox dropped while he is sleeping although he denies any worsening shortness of breath. EKG revealed sinus rhythm with second-degree AV block Mobitz type I, No acute ischemic changes, troponin is negative. TSH was normal. He had 2D echocardiogram on Aug, 2018 that revealed ejection fraction of 65%, stage III diastolic dysfunction. Today's potassium is 4.4, BUN and creatinine are stable. Plan: Continue same treatment, repeat CBC and BMP tomorrow morning, possible DC home tomorrow. #2 chronic anemia: It is iron deficiency anemia. Patient denies any bleeding from body orifices, denied blood in stool or black stools. He is aware that he does have chronic anemia. Today's hemoglobin is 8.5 g/dL. Stool for occult blood was not collected. Patient started on iron supplement. Plan as above. #3 recent history of left middle toe MSSA infection/osteomyelitis with bacteremia: Status post distal left middle toe tip amputation. He is on IV cefazolin, complete day is October 10, 2018. #4 CAD status post CABG: Stable, troponin is negative, no acute ischemic changes on EKG. Continue aspirin, statins, lisinopril and metoprolol. #5 type 2 diabetes mellitus: Blood sugar stable, continue sliding scale. Glimepiride held. #6 hypertension: Blood pressure stable, continue Norvasc, lisinopril and metopr olol. #7 paroxysmal atrial fibrillation: Rate is controlled, continue metoprolol for rate control. Patient is not on anticoagulations. #8 hyperlipidemia: Continue statins. #9 GERD: Continue Protonix. #10 DVT prophylaxis: Subcu Lovenox. This note was generated with [employer] dictation software. It may contain incorrect words, spelling, and punctuation that were not noted in checking the note before signing. Code Visit Inpatient E&M: 36665 Subs Hosp L2
[2018-09-23] MEDS: oxyCODONE 5 MG Tablet PO ×3 (08:10→20:44)
--- NOTE | 2018-09-23 08:47 | PN.CARD_ITS ---
Subjectve: Patient seen and evaluated. Appears to be doing better. Still has some pedal edema Objective: Vital Signs Temp Pulse Resp BP Pulse Ox 99.1 F 67 16 150/72 H 96 09/23/18 05:40 09/23/18 08:02 09/23/18 05:40 09/23/18 05:40 09/23/18 08:02 Oxygen Flow Rate (L/min) 3 Oxygen Delivery Method Room Air Weight: 223 lb 12.307 oz Body Mass Index (BMI) 30.3 Intake and Output for Last 24 Hours 09/21/18 09/22/18 09/23/18 23:59 23:59 23:59 Intake Total 148 / 148 829 / 829 129.6 / 129.6 Output Total 625 / 625 3925 / 3925 725 / 725 Balance -477 / -477 -3096 / -3096 -595.4 / -595.4 General: Awake, Alert, Oriented x 3 HEENT: PERRL, EOMI, Sclera Non Icteric Neck: Supple, Good ROM, No Lymph Node Enlargement Lungs: Clear to auscultation Cardiovascular: Regular Rhythm, Normal S1, Normal S2, No Murmurs, No Rubs, No Gallops Vascular: No Carotid Bruits, Normal Femoral Pulses, Normal Radial Pulses, Normal Dorsalis Pedal Pulse, Normal Posterior Tibial Pulses Abdomen: Bowel Sounds Present, Soft, Non Tender, No HSM, No Organomegaly Extremities: No Cyanosis, No Clubbing, Bilateral Edema +1 Neurological: No Focal Motor or Sensory Deficit Psych/Mental Status: Appropriate 09/23/18 05:00: Hgb 8.5 L, Hct 25.5 L 09/23/18 05:00: Sodium 138, Potassium 4.4, Chloride 102, Carbon Dioxide 27.0, Anion Gap 9, BUN 19 H, Creatinine 1.05, Est GFR (MDRD) Af Amer 93, Est GFR (MDRD) Non-Af 77, BUN/Creatinine Ratio 18.1, Glucose 121 H, Calcium 8.6 Rhythm: EKG: ECHO: Stress Test: Cardiac Cath: PCI: CT Surgery: Holter monitor: EPS: PPM: CXR: Chest CT Scan: Medical Necessity - Tobacco Use Smoking Status: Never smoker Tobacco Use: Non-smoker Assessment/Plan 1. Congestive heart failure-acute diastolic * Patient presents with congestive heart failure which appears to be diastolic. The above is likely secondary to fluid overload, anemia as well as possible cardiac dysrhythmia. * My recommendation will be to initiate IV diuresis * He recently underwent an echocardiogram so I do not think this needs to be repeated. * His other medications need to be optimized. * Would recommend continuing with 1 more day of intravenous diuresis 2. Hypertension * His blood pressure appears to be under suboptimal control at this particular time. We should aggressively control his blood pressure to prevent further episodes. * 3. Anemia * This needs to be worked up at some point. This may be worsening his symptoms. * 4. Coronary artery disease status post coronary bypass surgery * And has not had any evidence of angina recently. EKG demonstrates sinus rhythm with Wenckebach and no other changes and in addition cardiac enzymes have been normal. We will continue to monitor the above expectantly. * 5. Cardiac dysrhythmias * Patient was noted to be in Wenckebach Mobitz type I. This is a benign rhythm and for now no changes will be made. * * Thank you for allowing me to participate in the care of your patient. Please don't hesitate to call if any issues arise
[2018-09-23] MEDS: Furosemide 40 MG/4 ML Vial IV ×2 (09:49→16:59)
[2018-09-23] MEDS: Aspirin E.C. 81 MG Tablet PO (09:49)
[2018-09-23] MEDS: Metoprolol Tartrate 25 MG Tablet PO ×2 (09:50→22:08)
[2018-09-23] MEDS: Enoxaparin 40 MG/0.4 ML Syringe SC (09:51)
[2018-09-23] MEDS: Pantoprazole Sodium 40 MG Tablet PO (09:52)
[2018-09-23] MEDS: Lisinopril 20 MG Tablet PO ×2 (09:52→22:08)
[2018-09-23] MEDS: amLODIPine 5 MG Tablet PO ×2 (09:52→22:08)
[2018-09-23 12:01] LABS: Bedside Glucose 177 mg/dL (70-110)
[2018-09-23] MEDS: Ferrous Sulfate 325 MG Tablet PO ×2 (12:12→16:58)
[2018-09-23] MEDS: Insulin Lispro 100 UNIT/ML INSULN.PEN SQ ×2 (12:12→16:58)
[2018-09-23 16:35] LABS: Bedside Glucose 190 mg/dL (70-110)
[2018-09-23] MEDS: Atorvastatin Calcium 80 MG Tablet PO (22:07)
[2018-09-23 23:36] LABS: Bedside Glucose 132 mg/dL (70-110)
[2018-09-24] VITALS (7 sets, daily range): BP systolic 152–165; BP diastolic 63–81; PULSE 62–78; RESP 16; TEMP 36.9–37; O2SAT 92–97
[2018-09-24] MEDS: hydrALAZINE 20 MG/ML Vial 10 MG IV (03:51)
[2018-09-24] MEDS: 0.9% NaCl Peripheral Flush Adult/Peds IV ×6 (03:53→07:02)
[2018-09-24] MEDS: oxyCODONE 5 MG Tablet PO (04:00)
[2018-09-24] MEDS: Cefazolin 2 GM in 0.9% Normal Saline 100 ML IV (05:09)
[2018-09-24 05:18] LABS: Absolute Lymphocyte Count 1.41 X10^3/ul (0.83-4.51); Basophil# 0.07 X10^3/uL; Basophil% 0.6 % (0-1); Eosinophil# 0.35 X10^3/uL; Eosinophils% 3.1 % (0-5); Hematocrit 26.8 % (40-54); Hemoglobin 8.7 g/dl (13.0-16.5); Lymphocyte # 1.41 X10^3/ul (4.0); Lymphocyte % 12.6 % (19-41); Mean Corp Hgb Conc 32.5 g/gl (32-36); Mean Corpuscular Hgb 28.6 pg (27.0-32.0); Mean Corpuscular Volume 88.2 fL (80-94); Mean Platelet Vol. 9.4 fl (6.2-12.0); Monocyte# 1.23 X10^3/uL; Neutrophil # 8.02 X10^3/uL (2.7-7.7); Neutrophil % 71.5 % (47-70); Platelet Count 594 K/mm3 (150-450); RBC Distribution Width CV 13.3 % (11.6-14.6); RBC Distribution Width SD 41.7 fl (35.1-43.9); Red Blood Count 3.04 M/mm3 (4.6-6.2); White Blood Count 11.2 K/mm3 (4.4-11.0)
[2018-09-24 05:19] LABS: POSITIVE COUNT NO; POSITIVE DIFFERENTIAL NO; POSITIVE MORPHOLOGY NO
[2018-09-24 05:28] LABS: Anion Gap 7 (5-15); BUN 19 mg/dL (7-18); BUN/Creat Ratio 20.9 RATIO (10-20); Calcium,Total 8.6 mg/dL (8.5-10.1); Chloride 101 mmol/L (98-107); Creatinine, Serum 0.91 mg/dL (0.70-1.30); EST Glomerular Filtration Rate 90 mL/min (>60); Est Glom Filt Rate - Afr Amer 109 mL/min (>60); Estimated Creatinine Clearance 97.56 ml/min; Glucose 131 mg/dL (74-106); Potassium 4.1 mmol/L (3.5-5.1); Sodium Level 137 mmol/L (136-145)
--- NOTE | 2018-09-24 06:14 | PCA ---
09/24/18 0615 Discussed weight change with Angela DESAI
[2018-09-24 07:10] LABS: Bedside Glucose 127 mg/dL (70-110)
--- NOTE | 2018-09-24 07:54 | DCINST_ITS ---
- Discharge Diagnoses Current Active Problems: Current Active and Chronic Problems (Last Reviewed 07/25/18 @ 08:52 by Fredo Rodriguez MD) HLD (hyperlipidemia) (Chronic) GERD (gastroesophageal reflux disease) (Chronic) You will use the following diet at home:: Calorie/Carbohydrate Controlled (specify 1200, 1400, etc) - 1800 jimmy., Cardiac Your food should be the consistency of: Regular Discharge Activity: Return to Normal Activity Weight Bearing Status: Weight bearing as tolerated Call your doctor if you observe: Fever of 101 or Higher, Shortness of breath, Dizziness, Fainting spells, Chest pain, Increased palpitations (irregular heartbeat), Uncontrolled pain Instructions: Discharge Instructions for Heart Failure Allergies/Adverse Reactions: Allergies Penicillins [PCN] Allergy (Verified 09/21/18 18:23) Unknown Medications to take at Discharge Nitroglycerin (INPATIENT USE) [Nitrostat] 0.4 mg SUBLINGUAL Q5M PRN #20 tab 05/21/18 atorvastatin 80 mg tablet 80 mg PO QHS 07/24/18 glimepiride 2 mg tablet 2 mg PO DAILY tab 07/24/18 pantoprazole 40 mg tablet,delayed release 40 mg PO DAILY 07/24/18 Amlodipine Besylate 5 mg PO BID 09/09/18 Aspirin E.C. [Ecotrin] 81 mg PO DAILY@0800 09/09/18 Lisinopril [Zestril] 20 mg PO BID 09/09/18 Metoprolol Tartrate [Lopressor (beta leonardo)] 25 mg PO BID #60 tablet 09/16/18 Cefazolin 2 gm IV Q8 09/21/18 Ferrous Sulfate 325 mg PO 1200,1700 #90 tablet 09/24/18 Furosemide [Lasix] 40 mg PO DAILY #30 tablet 09/24/18 The following prescriptions were given: Ferrous Sulfate 325 mg PO 1200,1700 #90 tablet Furosemide [Lasix] 40 mg PO DAILY #30 tablet Primary Care Physician: Delgado Smith [Primary Care Provider] - Please follow up with your Primary Care Physician in: 1 week. Test Results: Test results from this visit will be discussed in further detail at your follow- up appointment, if applicable. Please Follow Up With: Fredo Rodriguez MD When: 2-4 weeks.
--- NOTE | 2018-09-24 08:25 | PN.CARD_ITS ---
Subjectve: Patient seen and evaluated. Doing much better. Less swelling. And breathing better Objective: Vital Signs Temp Pulse Resp BP Pulse Ox 98.6 F 78 16 165/81 H 96 09/24/18 03:50 09/24/18 07:00 09/24/18 03:50 09/24/18 03:51 09/24/18 03:50 Oxygen Flow Rate (L/min) 3 Oxygen Delivery Method Room Air Weight: 220 lb 0.341 oz Body Mass Index (BMI) 30.3 Intake and Output for Last 24 Hours 09/22/18 09/23/18 09/24/18 23:59 23:59 23:59 Intake Total 829 / 829 1336.6 / 1336.6 30 30 Output Total 3925 / 3925 3075 / 3075 1000 / 1000 Balance -3096 / -3096 -1738.4 / -1738.4 -970 / -970 General: Awake, Alert, Oriented x 3 HEENT: PERRL, EOMI, Sclera Non Icteric Neck: Supple, Good ROM, No Lymph Node Enlargement Lungs: Clear to auscultation Cardiovascular: Regular Rhythm, Normal S1, Normal S2, No Murmurs, No Rubs, No Gallops Vascular: No Carotid Bruits, Normal Femoral Pulses, Normal Radial Pulses, Normal Dorsalis Pedal Pulse, Normal Posterior Tibial Pulses Abdomen: Bowel Sounds Present, Soft, Non Tender, No HSM, No Organomegaly Extremities: No Cyanosis, No Clubbing, No edema Musculoskeletal: No Erythema Skin: No Rashes Lymphatic: No Lymph Node Enlargement Neurological: No Focal Motor or Sensory Deficit Psych/Mental Status: Appropriate 09/24/18 05:05: WBC 11.2 H, RBC 3.04 L, Hgb 8.7 L, Hct 26.8 L, MCV 88.2, MCH 28.6, MCHC 32.5, RDW 13.3, RDW Differential 41.7, Plt Count 594 H, MPV 9.4, Immature Gran % (Auto) 1.200 H, Neut % (Auto) 71.5 H, Lymph % (Auto) 12.6 L, [place] % (Auto) 11.0 H, Eos % (Auto) 3.1, Baso % (Auto) 0.6, Absolute Neuts (auto) 8.0 H, Total Counted Not Reportable 09/24/18 05:05: Sodium 137, Potassium 4.1, Chloride 101, Carbon Dioxide 29.0, Anion Gap 7, BUN 19 H, Creatinine 0.91, Est GFR (MDRD) Af Amer 109, Est GFR (MDRD) Non-Af 90, BUN/Creatinine Ratio 20.9 H, Glucose 131 H, Calcium 8.6 Rhythm: EKG: ECHO: Stress Test: Cardiac Cath: PCI: CT Surgery: Holter monitor: EPS: PPM: CXR: Chest CT Scan: Medical Necessity - Tobacco Use Smoking Status: Never smoker Tobacco Use: Non-smoker Assessment/Plan 1. Congestive heart failure-acute diastolic * Patient presents with congestive heart failure which appears to be diastolic. The above is likely secondary to fluid overload, anemia as well as possible cardiac dysrhythmia. * * He recently underwent an echocardiogram so I do not think this needs to be repeated. * His other medications need to be optimized. * Would recommend continuing with oral diuresis as an outpatient 2. Hypertension * His blood pressure appears to be under suboptimal control at this particular time. We should aggressively control his blood pressure to prevent further episodes. * 3. Anemia * This needs to be worked up at some point. This may be worsening his symptoms. * 4. Coronary artery disease status post coronary bypass surgery * And has not had any evidence of angina recently. EKG demonstrates sinus rhythm with Wenckebach and no other changes and in addition cardiac enzymes have been normal. We will continue to monitor the above expectantly. * 5. Cardiac dysrhythmias * Patient was noted to be in Wenckebach Mobitz type I. This is a benign rhythm and for now no changes will be made. * * Thank you for allowing me to participate in the care of your patient. Please don't hesitate to call if any issues arise. Discussed with hospitalist and agree with discharge today and follow-up as outpatient with oral Lasix
[2018-09-24] MEDS: Lisinopril 20 MG Tablet PO (08:35)
[2018-09-24] MEDS: Metoprolol Tartrate 25 MG Tablet PO (08:35)
[2018-09-24] MEDS: Furosemide 40 MG/4 ML Vial IV (08:35)
[2018-09-24] MEDS: amLODIPine 5 MG Tablet PO (08:35)
[2018-09-24] MEDS: Pantoprazole Sodium 40 MG Tablet PO (08:35)
[2018-09-24] MEDS: Aspirin E.C. 81 MG Tablet PO (08:35)
[2018-09-24] MEDS: 0.9% NaCl PICC Flush IV (08:36)
--- NOTE | 2018-09-24 08:51 | CASEMGMT ---
Resumption of care order, d/c instructions, and H&P faxed to [facility] with confirmation received. Call to [facility] to notify that pt being discharged today and that all of the above faxed already, Janel voices understanding. Janel voice no further questions/concerns/needs at this time. Therapy did not recommend any further therapy as pt stated he was back to baseline. SStmiranda DESAI CM
--- NOTE | 2018-09-24 14:36 | DS.PCM_ITS ---
Discharge Date and Diagnosis Date of Admission: 09/21/18 Date of Discharge: 09/24/18 - Primary Discharge Diagnosis #1 acute on chronic diastolic CHF. #2 chronic iron deficiency anemia. #3 recent history of left middle toe MSSA infection/osteomyelitis with bacteremia. - Secondary Discharge Diagnosis Chronic Problems (Last Reviewed 07/25/18 @ 08:52 by Fredo Rodriguez MD) HLD (hyperlipidemia) (Chronic) GERD (gastroesophageal reflux disease) (Chronic) DM II (diabetes mellitus, type II), controlled (Chronic) MSSA bacteremia (Chronic) Hammer toe of left foot (Chronic) Osteomyelitis (Chronic) Chronic ulcer of left foot with fat layer exposed (Chronic) Postoperative atrial fibrillation (Chronic 06/12/18) Sinus bradycardia (Chronic) Atherosclerosis of coronary artery without angina pectoris (Chronic) CABG x 3 WALL-LAD, Free MAIK-OM, SVG-RPDA 06/12/18 H/O coronary artery bypass surgery (Chronic 06/12/18) CABG x 3 WALL-LAD, Free MAIK-OM, SVG-RPDA 06/12/18 Essential hypertension (Chronic) Hospital Course and Treatment Imaging Results: Clinical Impression(s) from Imaging Studies Chest X-Ray 09/21/18 19:41 IMPRESSION: 1. Moderate cardiomegaly, prior open heart surgery. 2. Mild pulmonary edema. 3. Small right pleural effusion. Electronically Signed: Ray Watters, at 20:03 EDT Tel , Service support , Consultations 09/21/18 21:42 Consult: Onc/Wound/bank analyst Routine Comment: Dr. Rodriguez, cardiology. Procedures: EKG Summary of Care Provided: Day of discharge and appeared to be stable to be discharged home. Leg edema continued to improve. No shortness of breath or chest pain. His vital signs were stable. This is a 58 years old male patient presented to the emergency room because of exertional shortness of breath, leg edema and weight gain and he was found to have acute on chronic diastolic CHF, had a recent history of left middle toe MSSA infection/osteomyelitis with bacteremia. #1 acute on chronic diastolic CHF: Treated with IV Lasix, continued on lisinopril and metoprolol. EKG revealed sinus rhythm with second-degree AV blo ck Mobitz type I, No acute ischemic changes, troponin was negative x3. TSH was normal. He had 2D echocardiogram on Aug, 2018 that revealed ejection fraction of 65%, stage III diastolic dysfunction. With IV diuresis, patient symptoms improved, shortness of breath improved as well as leg edema. His kidney function remains stable. Patient discharged home in a stable medical condition, discharged on Lasix 40 mg p.o. daily, continued on his previous home medications without any changes. #2 chronic iron deficiency anemia: Patient denies any bleeding from body orifices, denied blood in stool or black stools. He is aware that he does have chronic anemia. His baseline hemoglobin has been around 10 g/dL. During this hospital stay, it has been around 8 grams per deciliter. Stool was negative for occult blood. Iron saturation were very low. Patient was started on ferrous sulfate 325 mg p.o. twice daily. #3 recent history of left middle toe MSSA infection/osteomyelitis with bacteremia: Status post distal left middle toe tip amputation. Continued on IV cefazolin, complete day is October 10, 2018. #4 CAD status post CABG: Continued on aspirin, statins, lisinopril and metoprolol. #5 type 2 diabetes mellitus: Continued on glimepiride upon discharge. #6 hypertension: Blood pressure remained stable, continue ond Norvasc, lisinopril and metoprolol. #7 paroxysmal atrial fibrillation: Rate is controlled, continue metoprolol for rate control. Patient discharged home in a stable medical condition, discharged on Lasix 40 mg p.o. daily, started on ferrous sulfate 25 mg p.o. twice daily, continued on IV cefazolin for left middle toe osteomyelitis with completion date of October 10, 2018, no change made to other previous home medications, recommended follow-up with PCP in 1 week and follow-up with cardiology in 2 to 4 weeks. This note was generated with [employer] dictation software. It may contain incorrect words, spelling, and punctuation that were not noted in checking the note before signing. - Physical Exam General: Alert, Oriented x3, Cooperative, No apparent distress HEENT: Atraumatic, PERRLA, EOMI, Normocephalic Oral: Moist Mucosa, No Gingival or Mucosal Lesions/ Ulcerations Neck: Supple, No JVD, Negative Carotid Bruits, Trachea Midline, Thyroid Normal Size and Texture Lungs: No rhonchi, No wheeze, No rales, Diminished, - - Decreased breath sounds at bases, otherwise clear Cardiovascular: Regular rate, Regular Rhythm, Normal S1, Normal S2, PMI Normal Abdomen: Bowel Sounds Present, Soft, Non Tender, Non-Distended, No Hepato- splenomegaly Extremities: No clubbing, No cyanosis, Edema - + Edema. Skin: No rashes, No breakdown Lymphatic: No Cervical, Supraclavicular, or Inguinal Adenopathy Neurological: Cranial nerves II-XII grossly intact, Neuro grossly intact Psych/Mental Status: Normal Affect, Appropriate Vital Signs Temp Pulse Resp BP Pulse Ox 98.4 F 64 16 152/63 H 97 09/24/18 08:30 09/24/18 08:35 09/24/18 08:30 09/24/18 08:30 09/24/18 08:30 Oxygen Flow Rate (L/min) 3 Oxygen Delivery Method Room Air Weight: 220 lb 0.341 oz Body Mass Index (BMI) 30.3 Intake and Output for Last 24 Hours 09/22/18 09/23/18 09/24/18 23:59 23:59 23:59 Intake Total 829 / 829 1336.6 / 1336.6 30 / 30 Output Total 3925 / 3925 3075 / 3075 1000 / 1000 Balance -3096 / -3096 -1738.4 / -1738.4 -970 / -970 Microbiology Past 72 Hours 09/23/18 11:45 Stool Occult Blood (SULEMAN) - Final Stool Laboratory Tests Past 24 Hrs 09/24/18 09/24/18 05:05 05:05 WBC 11.2 H RBC 3.04 L Hgb 8.7 L Hct 26.8 L MCV 88.2 MCH 28.6 MCHC 32.5 RDW 13.3 RDW Differential 41.7 Plt Count 594 H MPV 9.4 Immature Gran % (Auto) 1.200 H Neut % (Auto) 71.5 H Lymph % (Auto) 12.6 L [place] % (Auto) 11.0 H Eos % (Auto) 3.1 Baso % (Auto) 0.6 Absolute Neuts (auto) 8.0 H Absolute Lymphs (auto) 1.41 Total Counted Not Reportable Sodium 137 Potassium 4.1 Chloride 101 Carbon Dioxide 29.0 Anion Gap 7 BUN 19 H Creatinine 0.91 Estim Creat Clear Calc 97.56 Est GFR (MDRD) Af Amer 109 Est GFR (MDRD) Non-Af 90 BUN/Creatinine Ratio 20.9 H Glucose 131 H Calcium 8.6 POC Glucose 09/24/18 09/23/18 09/23/18 06:59 22:05 16:31 POC Glucose 127 H 132 H 190 H Discharge Activity: Return to Normal Activity Weight Bearing Status: Weight bearing as tolerated Call your doctor if you observe: Fever of 101 or Higher, Shortness of breath, Dizziness, Fainting spells, Chest pain, Increased palpitations (irregular heartbeat), Uncontrolled pain Home Medications: Medications to take at Discharge Nitroglycerin (INPATIENT USE) [Nitrostat] 0.4 mg SUBLINGUAL Q5M PRN #20 tab 05/21/18 atorvastatin 80 mg tablet 80 mg PO QHS 07/24/18 glimepiride 2 mg tablet 2 mg PO DAILY tab 07/24/18 pantoprazole 40 mg tablet,delayed release 40 mg PO DAILY 07/24/18 Amlodipine Besylate 5 mg PO BID 09/09/18 Aspirin E.C. [Ecotrin] 81 mg PO DAILY@0800 09/09/18 Lisinopril [Zestril] 20 mg PO BID 09/09/18 Metoprolol Tartrate [Lopressor (beta leonardo)] 25 mg PO BID #60 tablet 09/16/18 Cefazolin 2 gm IV Q8 09/21/18 Ferrous Sulfate 325 mg PO 1200,1700 #90 tablet 09/24/18 Furosemide [Lasix] 40 mg PO DAILY #30 tablet 09/24/18 Following Prescrptions Were Given to Patient: Ferrous Sulfate 325 mg PO 1200,1700 #90 tablet Furosemide [Lasix] 40 mg PO DAILY #30 tablet Primary Care Physician: Delgado Smith [Primary Care Provider] - Please follow up with your Primary Care Physician in: 1 week. Please Follow Up With: Fredo Rodriguez MD When: 2-4 weeks. Please Follow Up With: Delgado Smith Patient Instructions: Discharge Instructions for Heart Failure Medical Necessity - Tobacco Use Smoking Status: Never smoker Tobacco Use: Non-smoker Meaningful Use Info Meaningful Use Diagnoses (Choose all that apply): CHF - CHF CAMILA/ARB ordered at discharge?: Yes Documented LVEF (%): 65 Code Visit Inpatient E&M: 30664 Disch Hosp
--- NOTE | 2018-09-25 15:17 | CASEMGMT ---
LLOYD CM DC PHONE CALL DC DATE: 09/24/18 DC Disposition: Home LACE/STRATA: 26/07 Attempted call to home phone. No answer and no machine picked up. Rush RON RN ACM
--- NOTE | 2018-10-03 09:42 | CASEMGMT ---
This RN MURRAY received call from Indy GAO at [facility] and she would like updated on pt's discharge plan at this time. Advised Indy that pt was discharged on 09/24/18 with resumption of HHC, voices understanding. MURRAY voices no further questions/concerns/needs at this time. SStaten LLOYD GAO
== END 2018-09-24 10:37 | disposition home or self-care (01) | DRG 194 ==
LOC: ED 19:38 → PCU 20:57
PROVIDERS: Admitting Provider Family Medicine; Emergency Provider Emergency Medicine; Family Provider Family Medicine; PCP Family Medicine; Referring Provider Family Medicine; Visit Provider Hospitalist
DX: I11.0 Hypertensive heart disease with heart failure (principal); I48.0 Paroxysmal atrial fibrillation; E78.5 Hyperlipidemia, unspecified; I50.33 Acute on chronic diastolic (congestive) heart failure; I25.10 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of native coronary artery without angina pectoris; E11.69 Type 2 diabetes mellitus with other specified complication; M86.8X7 Other osteomyelitis, ankle and foot; B95.7 Other staphylococcus as the cause of diseases classified elsewhere; D50.9 Iron deficiency anemia, unspecified; I44.1 Atrioventricular block, second degree; K21.9 Gastro-esophageal reflux disease without esophagitis; Z95.1 Presence of aortocoronary bypass graft; Z79.84 Long term (current) use of oral hypoglycemic drugs
CPT/HCPCS: 71045; 80048; 80061; 82274; 82728; 82962; 83540; 83550; 83735; 83880; 84443; 84484; 85014; 85018; 85025; 93005; 97802; 99284; J7040; A4216; J1940

== ENCOUNTER 2018-09-24 11:58 | Outpatient (RCR) | payer MEDICAID, SELFPAY ==
[2018-08-07 13:08] VITALS: BMI 27.1
[2018-09-21 21:57] VITALS: BMI 30.3
== END 2018-10-12 23:59 ==
LOC: DC 11:58
PROVIDERS: Family Provider Family Medicine; PCP Family Medicine; Visit Provider Internal Medicine Cardiovascular Disease
DX: E11.9 Type 2 diabetes mellitus without complications (principal); E66.9 Obesity, unspecified; Z71.3 Dietary counseling and surveillance
CPT/HCPCS: 97802

== ENCOUNTER → 2018-10-17 | Outpatient (CLI) | payer MEDICAID, SELFPAY ==
[2018-09-21 21:57] VITALS: BMI 30.3
[2018-10-17 09:55] LABS: AST(SGOT) 24 U/L (15-37); Alanine Aminotransfer ALT/SGPT 25 U/L (16-61); Albumin, Serum 3.1 g/dL (3.2-5.0); Alkaline Phosphatase 218 U/L (45-117); Bilirubin, Direct 0.39 mg/dL (0.00-0.30); Cholesterol 80 mg/dL (200); Globulin 4.2 g/dL (2.2-4.2); High Density Lipoprotein 46 mg/dL; Protein, Total 7.3 g/dL (6.4-8.2); Triglycerides 51 mg/dL; Very Low Density Lipoprotein 10 mg/dL (5-40)
== END | disposition home or self-care (01) ==
LOC: LAB 08:44
PROVIDERS: Family Provider Family Medicine; PCP Family Medicine; Referring Provider Internal Medicine Cardiovascular Disease; Visit Provider Internal Medicine Cardiovascular Disease
DX: E78.5 Hyperlipidemia, unspecified (principal)
CPT/HCPCS: 36415; 80061; 80076

== ENCOUNTER → 2018-10-22 | Outpatient (CLI) | payer MEDICAID, SELFPAY ==
[2018-10-17 09:29] VITALS: BMI 29.5
[2018-10-22 10:15] LABS: Absolute Lymphocyte Count 0.87 X10^3/ul (0.83-4.51); Basophil# 0.02 X10^3/uL; Basophil% 0.2 % (0-1); Eosinophil# 0.08 X10^3/uL; Eosinophils% 0.7 % (0-5); Hematocrit 24.8 % (40-54); Hemoglobin 7.9 g/dl (13.0-16.5); Lymphocyte # 0.87 X10^3/ul (4.0); Lymphocyte % 7.7 % (19-41); Mean Corp Hgb Conc 31.9 g/gl (32-36); Mean Corpuscular Hgb 26.5 pg (27.0-32.0); Mean Corpuscular Volume 83.2 fL (80-94); Mean Platelet Vol. 9.8 fl (6.2-12.0); Monocyte# 1.39 X10^3/uL; Monocyte% 12.2 % (0-10); Neutrophil # 8.98 X10^3/uL (2.7-7.7); Neutrophil % 78.9 % (47-70); Platelet Count 384 K/mm3 (150-450); RBC Distribution Width CV 14.2 % (11.6-14.6); RBC Distribution Width SD 41.6 fl (35.1-43.9); Red Blood Count 2.98 M/mm3 (4.6-6.2); White Blood Count 11.4 K/mm3 (4.4-11.0)
[2018-10-22 10:24] LABS: POSITIVE COUNT NO; POSITIVE DIFFERENTIAL NO; POSITIVE MORPHOLOGY NO
[2018-10-22 10:40] LABS: Alkaline Phosphatase 535 U/L (45-117)
[2018-10-22 10:42] LABS: Vitamin D,25 Hydroxy 22.7 ng/mL (29.95-100.01)
== END | disposition home or self-care (01) ==
LOC: LAB 09:41
PROVIDERS: Family Provider Family Medicine; PCP Family Medicine; Referring Provider Podiatrist; Visit Provider Podiatrist
DX: M14.672 Charcot's joint, left ankle and foot (principal); M79.672 Pain in left foot; E55.9 Vitamin D deficiency, unspecified
CPT/HCPCS: 36415; 82306; 84075; 85025

== ENCOUNTER 2018-11-06 18:03 | Inpatient (IN) | payer MEDICAID, SELFPAY ==
[2018-10-17 09:29] VITALS: BMI 29.5
[2018-11-06 18:05] VITALS: BP 162/77; PULSE 71; RESP 16; TEMP 38.1; O2SAT 97; BMI 26.7
[2018-11-06 19:27] LABS: Absolute Lymphocyte Count 1.22 X10^3/uL (0.83-4.51); Absolute Neutrophil Count 10.5 X10^3/uL (2.0-7.7); Basophil# 0.07 X10^3/uL; Basophil% 0.5 % (0-1); Eosinophil# 0.22 X10^3/uL; Eosinophils% 1.6 % (0-5); Hematocrit 28.6 % (40-54); Hemoglobin 9.2 g/dL (13.0-16.5); Lymphocyte # 1.22 X10^3/ul (4.0); Mean Corp Hgb Conc 32.2 g/dL (32-36); Mean Corpuscular Hgb 26.4 pg (27.0-32.0); Mean Corpuscular Volume 81.9 fL (80-94); Mean Platelet Vol. 9.7 fl (6.2-12.0); Monocyte# 1.43 X10^3/uL; Monocyte% 10.5 % (0-10); NRBC Flagged by Analyzer 0 % (0-5); Neutrophil % 77.5 % (47-70); Platelet Count 513 K/mm3 (150-450); RBC Distribution Width CV 14.9 % (11.6-14.6); RBC Distribution Width SD 44.8 fl (35.1-43.9); Red Blood Count 3.49 M/mm3 (4.6-6.2); White Blood Count 13.6 K/mm3 (4.4-11.0)
[2018-11-06 19:28] VITALS: BMI 26.8
[2018-11-06 19:36] LABS: Anion Gap 6 (5-15); BUN 16 mg/dL (7-18); BUN/Creat Ratio 16.8 RATIO (10-20); Calcium,Total 8.5 mg/dL (8.5-10.1); Chloride 96 mmol/L (98-107); Creatinine, Serum 0.95 mg/dL (0.70-1.30); EST Glomerular Filtration Rate 86 mL/min (>60); Est Glom Filt Rate - Afr Amer 103 mL/min (>60); Estimated Creatinine Clearance 93.45 ml/min; Glucose 144 mg/dL (74-106); Potassium 3.3 mmol/L (3.5-5.1); Sodium Level 132 mmol/L (136-145)
--- NOTE | 2018-11-06 19:36 | ED.RN ---
PT PRESENTS WTH KNOWN INFECTION FROM [facility]. POSITIVE SEPSIS SCREEN
[2018-11-06 19:37] VITALS: BP 183/88; PULSE 75; RESP 16; TEMP 38.4; O2SAT 94
[2018-11-06 19:38] VITALS: BP 183/88; RESP 16; TEMP 38.4; O2SAT 94
[2018-11-06] MEDS: Ceftriaxone 1 GM/50 ML BAG IV (19:43)
[2018-11-06] MEDS: Acetaminophen 500 MG Tablet 1000 MG PO (19:43)
--- NOTE | 2018-11-06 20:26 | HP.PCM_ITS ---
Problem List (1) 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[place] coronary artery w/angina pectoris Status: Acute Comment: CABG x 3 WALL-LAD, Free MAIK-OM, SVG-RPDA 06/12/18 (2) Chronic diastolic (congestive) heart failure Status: Chronic (3) HLD (hyperlipidemia) Status: Chronic Qualifiers: (4) MSSA bacteremia Status: Chronic (5) Osteomyelitis Status: Chronic Qualifiers: (6) Postoperative atrial fibrillation Status: Resolved (7) Sinus bradycardia Status: Chronic (8) Atherosclerosis of coronary artery without angina pectoris Status: Chronic Qualifiers: Comment: CABG x 3 WALL-LAD, Free MAIK-OM, SVG-RPDA 06/12/18 (9) H/O coronary artery bypass surgery Status: Chronic Comment: CABG x 3 WALL-LAD, Free MAIK-OM, SVG-RPDA 06/12/18 (10) Essential hypertension Status: Chronic History of Present Illness Date of Admission: 11/06/18 Chief Complaint: Bacteremia The patient is a 58 year old M with PMH as below who presents at the direction of loss prevention specialist oncologist for [facility] who evaluated the patient yesterday for low hemoglobin. He presented to [facility] for blood transfusion and after the transfusion was recommended to have blood test. He has been having fevers for the last 3 weeks that are consistent every day and then break overnight. He had a blood culture obtained at the outside hospital which the PCR demonstrated MSSA and Enterobacter. He left that hospital and came to this hospital because this is where his infectious disease doctor is. He was recently admitted and treated for osteomyelitis with a PICC line and IV antibiotics for 4 to 6 weeks, at that time it was also MSSA. He states that he had been recovering fairly well from his osteomyelitis and previous surgical interventions, and then recently started developing left foot pain and was told that he is developing Charcot foot and is currently in a brace. He did not want the ED physician to take down his brace at this time. In the ER he was found to have an elevated white count as well as platelets secondary to reaction, his hemoglobin was 9.2. Blood cultures were obtained and he was started on Rocephin for his MSSA and Enterobacter. He also had elevated temperatures to 101 ?F. Past Medical History Past Medical History (Chronic Problems): Chronic Problems (Last Reviewed 10/17/18 @ 10:17 by Fredo Rodriguez MD) Chronic diastolic (congestive) heart failure (Chronic) HLD (hyperlipidemia) (Chronic) MSSA bacteremia (Chronic) Osteomyelitis (Chronic) Sinus bradycardia (Chronic) Atherosclerosis of coronary artery without angina pectoris (Chronic) CABG x 3 WALL-LAD, Free MAIK-OM, SVG-RPDA 06/12/18 H/O coronary artery bypass surgery (Chronic 06/12/18) CABG x 3 WALL-LAD, Free MAIK-OM, SVG-RPDA 06/12/18 Essential hypertension (Chronic) Medical History: Medical History (Last Reviewed 10/17/18 @ 10:17 by Fredo Rodriguez MD) 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[place] coronary artery w/angina pectoris (Acute) I25.119 CABG x 3 WALL-LAD, Free MAIK-OM, SVG-RPDA 06/12/18 Chronic diastolic (congestive) heart failure (Chronic) I50.32 HLD (hyperlipidemia) (Chronic) E78.5 MSSA bacteremia (Chronic) R78.81 Osteomyelitis (Chronic) M86.9 Postoperative atrial fibrillation (Resolved) Onset Date: 06/12/18 I97.89, I48.91 Sinus bradycardia (Chronic) R00.1 Atherosclerosis of coronary artery without angina pectoris (Chronic) I25.10 CABG x 3 WALL-LAD, Free MAIK-OM, SVG-RPDA 06/12/18 Essential hypertension (Chronic) I10 Cataracts, both eyes H26.9 Chronic ulcer of left foot with fat layer exposed L97.522 Diabetic retinopathy E11.319 GERD (gastroesophageal reflux disease) K21.9 Hammer toe of left foot M20.42 Iron deficiency anemia D50.9 Normocytic anemia D64.9 Obesity (BMI 30.0-34.9) E66.9 Type 2 diabetes mellitus E11.9 Diastolic dysfunction with acute on chronic heart failure I50.33 Allergies Penicillins [PCN] Allergy (Verified 11/06/18 18:05) Unknown Home Medications: Ambulatory Orders Medication Instructions Recorded atorvastatin 80 mg tablet 40 mg PO QHS 07/24/18 glimepiride 2 mg tablet 2 mg PO DAILY tab 07/24/18 pantoprazole 40 mg tablet,delayed 40 mg PO DAILY 07/24/18 release Aspirin E.C. [Ecotrin] 81 mg PO DAILY@0800 09/09/18 Lisinopril [Zestril] 20 mg PO BID 09/09/18 amlodipine 10 mg tablet 5 mg PO DAILY tab 10/17/18 isosorbide mononitrate ER 30 mg 30 mg PO DAILY #90 tab 10/17/18 tablet,extended release 24 hr metoprolol tartrate 25 mg tablet 25 mg PO BID #180 tab 10/17/18 nitroglycerin 0.4 mg sublingual 0.4 mg SUBLINGUAL Q5M PRN #25 tab 10/17/18 tablet Cholecalciferol (Vitamin D3) 50,000 unit PO FR 11/06/18 [Vitamin D] Furosemide 80 mg PO BID 11/06/18 traMADol [Ultram (G)] 50 mg PO BID 11/06/18 Surgical History: Surgical History (Last Reviewed 10/17/18 @ 10:17 by Fredo Rodriguez MD) H/O coronary artery bypass surgery (Chronic) Onset Date: 06/12/18 Z95.1 CABG x 3 WALL-LAD, Free MAIK-OM, SVG-RPDA 06/12/18 Amputated toe of left foot Onset Date: 08/2018 S98.132A History of left heart catheterization Onset Date: 05/20/18 Z98.890 Hx of cholecystectomy Z90.49 S/P meniscectomy Z98.890 Surgical History: cataract, cholecystectomy, coronary bypass surgery, total knee arthroplasty, - - Prior and recent toe partial amputation, skin cancer face resection. Psychiatric History: No pertinent psych hx Smoking Status: Never smoker Alcohol: None Drugs: None - *Family History Maternal Family History: Family History (Last Reviewed 10/17/18 @ 10:17 by Fredo Rodriguez MD) Mother Diabetes History Items: Diabetes Paternal Family History: Family History (Last Reviewed 10/17/18 @ 10:17 by Fredo Rodriguez MD) Mother Diabetes History Items: Unknown - Patient does not know his paternal family history. Review of Systems Constitutional: Reports: Fever. Denies: Chills, Weight Change HEENT: Denies: Head Aches, Sinus Congestion, Sinus Drainage Cardiovascular: Denies: Chest Pain, Palpitations Respiratory: Denies: Cough, Shortness of breath at rest, Sputum production Gastrointestinal: Denies: Abdominal Pain, Nausea, Vomiting Genitourinary: Denies: Dysuria Musculoskeletal: Reports: Foot Pain. Denies: Joint Pain, Joint Tenderness Skin: Denies: Rash, Wounds Neurological: Denies: Numbness, Tingling, Focal weakness Psychiatric: Denies: Anxiety, Depression Hematologic/ Lymphatic: Denies: Easy Bruising, Easy Bleeding VTE Information - Inpt Only VTE Present on Admission: No - Physical Exam General: Alert, Oriented x3, Cooperative, No apparent distress HEENT: Atraumatic, PERRLA, EOMI, Normocephalic Oral: Moist Mucosa Neck: Supple, No JVD Lungs: Clear to auscultation, Normal air movement, No rhonchi, No wheeze, No rales, Diminished Cardiovascular: Regular rate, Regular Rhythm, Normal S1, Normal S2, No murmurs Abdomen: Soft, Non Tender, Non-Distended, No Hepato-splenomegaly Extremities: No edema, Capillary Refill Less than 3 Seconds Skin: No rashes, No breakdown, - - Boot in place could not evaluate Neurological: Neuro grossly intact, Sensory exam intact to light touch and pain Psych/Mental Status: Normal Affect, Appropriate Vital Signs Temp Pulse Resp BP Pulse Ox 101.1 F H 75 16 183/88 H 94 11/06/18 19:38 11/06/18 19:37 11/06/18 19:38 11/06/18 19:38 11/06/18 19:38 Oxygen Delivery Method Room Air Weight: 203 lb Body Mass Index (BMI) 26.7 Laboratory Tests Past 24 Hrs 11/06/18 11/06/18 19:15 19:15 WBC 13.6 H RBC 3.49 L Hgb 9.2 L Hct 28.6 L MCV 81.9 MCH 26.4 L MCHC 32.2 RDW Std Deviation 44.8 H RDW Coeff of Dipti 14.9 H Plt Count 513 H MPV 9.7 Immature Gran % (Auto) 0.900 Neut % (Auto) 77.5 H Lymph % (Auto) 9.0 L [place] % (Auto) 10.5 H Eos % (Auto) 1.6 Baso % (Auto) 0.5 Absolute Neuts (auto) 10.5 H Absolute Lymphs (auto) 1.22 Absolute Nucleated RBC 0.00 Nucleated RBC % 0 Sodium 132 L Potassium 3.3 L Chloride 96 L Carbon Dioxide 30.0 Anion Gap 6 BUN 16 Creatinine 0.95 Estim Creat Clear Calc 93.45 Est GFR (MDRD) Af Amer 103 Est GFR (MDRD) Non-Af 86 BUN/Creatinine Ratio 16.8 Glucose 144 H Calcium 8.5 Assessment/Plan All Active Problems (Last Reviewed 10/17/18 @ 10:17 by Fredo Rodriguez MD) 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[place] coronary artery w/angina pectoris (Acute) Edema (Acute) Dyspnea (Acute) Postoperative atrial fibrillation (Resolved 06/12/18) 1. Left middle toe distal MSSA infection with osteomyelitis presenting with Charcot's foot and bacteremia -Outside hospital blood cultures with PCR positive MSSA and Enterobacter -Start IV Rocephin, previous BRODY at the end of August did not demonstrate vegetati on -Consult to infectious disease and podiatry for further evaluation -Consult wound care nurse -Follow CBC and provide Tylenol for fever 2. CAD status post CABG/HTN/HLD/paroxysmal A. fib/chronic diastolic CHF not in exacerbation -Continue with aspirin, statin and his home blood pressure medications -Systolic blood pressures are in the 180s, likely secondary to pain will monitor closely -Continue with his Lasix 3. GERD/chronic normocytic anemia -Stable -Continue with PPI -He is to have a colonoscopy as an outpatient for his normocytic anemia, he has had multiple fecal occult blood test that were negative -He was recently transfused for hemoglobin of 7.2 at an outside hospital -Will monitor his anemia closely 4. DM 2 -We will hold his glimepiride and start him on 5 units of Lantus as well as sliding scale insulin -With a carb controlled diet -Accu-Cheks AC at bedtime DVT: Lovenox Code Visit Inpatient E&M: 51818 Init Hosp L3
[2018-11-06 21:33] VITALS: BMI 28.0
[2018-11-06 21:54] VITALS: BP 169/76; PULSE 77; RESP 18; TEMP 38.1; O2SAT 95
[2018-11-06 22:20] LABS: Bedside Glucose 157 mg/dL (70-110)
[2018-11-06] MEDS: Enoxaparin 40 MG/0.4 ML Syringe SC (23:10)
[2018-11-06] MEDS: 0.9% NaCl Peripheral Flush Adult/Peds IV (23:11)
[2018-11-06] MEDS: Insulin Lispro 100 UNIT/ML INSULN.PEN SC (23:11)
[2018-11-07] VITALS (7 sets, daily range): BP systolic 160–172; BP diastolic 68–81; PULSE 67–78; RESP 16–18; TEMP 37.4–37.9; O2SAT 95–98
--- NOTE | 2018-11-07 00:05 | ED.DCSUM_ITS ---
- ER Visit Summary Date of Service: 11/07/18 Chief Complaint: Fever and positive blood cultures History of Present Illness: The patient is a [address] Tam, Dr. Yuan, Dr. Roblero, and Dr. Rodriguez. Patient reports that approximately 2 months ago he was hospitalized for osteomyelitis with bacteremia and was discharged with PICC line for approximately 1 month. He was on Ancef after this. Patient reports that he began developing fever again approximately 3 weeks ago. States that it is 99.5 200 degrees on a daily basis. He has not been on antibiotics over this timeframe. States that he has had left leg pain over the same timeframe. He has had x-rays and ultrasound that were negative. He is seen Dr. mcgovern for this. He was told that he has a Charcot foot. Patient also reports he has had a cough for the past 3 weeks. This is nonproductive. He has had nausea, but no vomiting. He denies abdominal pain or diarrhea. No dysuria frequency. No rash, headache, numbness, or weakness. Does report that he had a poor appetite and a 15 pound weight loss over the past 3 weeks. Patient was seen by a manager roofing/oncologist yesterday and had blood cultures obtained. The PCR for these was positive for MSSA and Enterobacter. He was also found to have a hemoglobin of 7.2. He was transfused 2 units of packed red blood cells at an outlying facility and then came here because his infectious disease specialist is here. Physical Examination: Vitals: 100.5, 162/77, 71, 16, 97% on room air which is hypoxic.. General: Well-nourished and well-developed. Head: Normocephalic atraumatic. Neck: Supple, no lymphadenopathy. No JVD. Nontender. Cardiovascular: Regular rate and rhythm. No murmurs. Respiratory: No respiratory distress. Clear to auscultation bilaterally. Abdominal: Soft, nontender, nondistended, normal bowel sounds. No guarding, rebound, or peritoneal signs. Back: Nontender. Extremities: Nontender, no edema. Left leg is in a walking boot. Skin: Normal color, no rash. Neurologic: Alert and oriented ?3. Cranial nerves II through XII are intact. Normal strength and sensation. Psych: Normal affect. Test Results: CBC shows a white count of 13.6 with 77 neutrophils, 9 lymphocytes, 11 monocytes. H&H is 9.2 and 28.6. Platelets of 513. Chem-7 shows sodium 132, potassium 3.3, chloride 96, glucose 144. Emergency Department Course and Treatment: Patient had repeat blood cultures obtained. He was given a dose of Rocephin IV. Treatment Plan: Patient was discussed with Dr. Jean Baptiste as well as Dr. Yuan. He will be admitted to the hospital for further evaluation and treatment. Disposition: Admitted in improved condition. Impression: 1. MSSA/Enterobacter bacteremia. 2. Anemia. This note was generated with [employer] dictation software. It may contain incorrect words, spelling, and punctuation that were not noted in review of the chart prior to signing ED Disposition - Plan for ED Patient: Disposition: Acute [facility]
[2018-11-07] MEDS: Metoprolol Tartrate 25 MG Tablet PO ×3 (00:11→21:49)
[2018-11-07] MEDS: Lisinopril 20 MG Tablet PO ×3 (00:11→21:50)
[2018-11-07] MEDS: Atorvastatin Calcium 40 MG Tablet PO ×2 (00:12→21:48)
[2018-11-07] MEDS: Furosemide 80 MG Tablet PO ×3 (00:12→18:27)
[2018-11-07 05:29] LABS: Absolute Neutrophil Count 10.5 X10^3/uL (2.0-7.7); Basophil# 0.06 X10^3/uL; Basophil% 0.5 % (0-1); Eosinophil# 0.27 X10^3/uL; Hematocrit 26.3 % (40-54); Hemoglobin 8.7 g/dL (13.0-16.5); Lymphocyte % 8.3 % (19-41); Mean Corp Hgb Conc 33.1 g/dL (32-36); Mean Corpuscular Hgb 27.3 pg (27.0-32.0); Mean Corpuscular Volume 82.4 fL (80-94); Mean Platelet Vol. 10.2 fl (6.2-12.0); Monocyte% 9.8 % (0-10); NRBC Flagged by Analyzer 0 % (0-5); Neutrophil # 10.48 X10^3/uL (2.7-7.7); Neutrophil % 78.5 % (47-70); Platelet Count 475 K/mm3 (150-450); RBC Distribution Width CV 14.8 % (11.6-14.6); RBC Distribution Width SD 44.6 fl (35.1-43.9); Red Blood Count 3.19 M/mm3 (4.6-6.2); White Blood Count 13.3 K/mm3 (4.4-11.0)
[2018-11-07 06:01] LABS: Anion Gap 5 (5-15); BUN 17 mg/dL (7-18); BUN/Creat Ratio 16.7 RATIO (10-20); Calcium,Total 8.2 mg/dL (8.5-10.1); Chloride 98 mmol/L (98-107); Creatinine, Serum 1.02 mg/dL (0.70-1.30); EST Glomerular Filtration Rate 79 mL/min (>60); Est Glom Filt Rate - Afr Amer 96 mL/min (>60); Estimated Creatinine Clearance 87.04 ml/min; Glucose 175 mg/dL (74-106); Potassium 3.3 mmol/L (3.5-5.1); Sodium Level 133 mmol/L (136-145)
[2018-11-07] MEDS: Insulin Lispro 100 UNIT/ML INSULN.PEN SC ×3 (06:31→21:56)
[2018-11-07] MEDS: oxyCODONE 5 MG Tablet PO ×4 (06:31→21:50)
[2018-11-07 06:45] LABS: Bedside Glucose 153 mg/dL (70-110)
--- NOTE | 2018-11-07 09:06 | NURSING ---
wound photo: left 3rd toe
[2018-11-07] MEDS: Glucerna Shake 120 ML LIQUID PO ×4 (09:39→21:45)
[2018-11-07] MEDS: Isosorbide Mononitrate 30 MG Tablet PO (09:40)
[2018-11-07] MEDS: Pantoprazole Sodium 40 MG Tablet PO (09:40)
[2018-11-07] MEDS: Aspirin E.C. 81 MG Tablet PO (09:40)
[2018-11-07] MEDS: amLODIPine 5 MG Tablet PO (09:40)
[2018-11-07] MEDS: Enoxaparin 40 MG/0.4 ML Syringe SC (09:47)
[2018-11-07] MEDS: traMADol 50 MG Tablet PO ×2 (09:47→21:50)
--- NOTE | 2018-11-07 10:08 | PCM.PROGNOTE ---
Subjective: Chief complaint: Follow-up after admission for positive blood culture for MSSA/Enterobacter bacteremia in context of recent history of left middle toe MSSA osteomyelitis with MSSA bacteremia. Patient seen and examined. No acute events overnight. Left foot pain getting better. He still having spikes of fever, blood pressure slightly elevated, other vital signs are stable. - Physical Exam General: Alert, Oriented x3, Cooperative, No apparent distress HEENT: Atraumatic, PERRLA, EOMI, Normocephalic Oral: Moist Mucosa, No Gingival or Mucosal Lesions/ Ulcerations Neck: Supple, No JVD, Negative Carotid Bruits, Trachea Midline, Thyroid Normal Size and Texture Lungs: Clear to auscultation, Normal air movement, No rhonchi, No wheeze, No rales Cardiovascular: Regular rate, Regular Rhythm, Normal S1, Normal S2, PMI Normal Abdomen: Bowel Sounds Present, Soft, Non Tender, Non-Distended, No Hepato-splenomegaly Extremities: No clubbing, No cyanosis, No edema Skin: No rashes, Ulcer/ Wound Lymphatic: No Cervical, Supraclavicular, or Inguinal Adenopathy Neurological: Cranial nerves II-XII grossly intact, Motor Exam 5/5 strength throughout Psych/Mental Status: Normal Affect, Appropriate, Alert and oriented to time, place, person, mood and affect Vital Signs Temp Pulse Resp BP Pulse Ox 99.3 F H 72 18 162/71 H 95 11/07/18 09:27 11/07/18 09:40 11/07/18 09:27 11/07/18 09:27 11/07/18 09:27 Oxygen Delivery Method Room Air Weight: 212 lb 4.882 oz Body Mass Index (BMI) 28.0 Intake and Output for Last 24 Hours 11/05/18 11/06/18 11/07/18 23:59 23:59 23:59 Intake Total 458 / 458 700 / 700 Output Total 1000 / 1000 Balance 458 / 458 -300 / -300 Laboratory Tests Past 24 Hrs 11/06/18 11/06/18 11/07/18 19:15 19:15 04:56 WBC 13.6 H 13.3 H RBC 3.49 L 3.19 L Hgb 9.2 L 8.7 L Hct 28.6 L 26.3 L MCV 81.9 82.4 MCH 26.4 L 27.3 MCHC 32.2 33.1 RDW Std Deviation 44.8 H 44.6 H RDW Coeff of Dipti 14.9 H 14.8 H Plt Count 513 H 475 H MPV 9.7 10.2 Immature Gran % (Auto) 0.900 0.900 Neut % (Auto) 77.5 H 78.5 H Lymph % (Auto) 9.0 L 8.3 L [place] % (Auto) 10.5 H 9.8 Eos % (Auto) 1.6 2.0 Baso % (Auto) 0.5 0.5 Absolute Neuts (auto) 10.5 H 10.5 H Absolute Lymphs (auto) 1.22 1.10 Absolute Nucleated RBC 0.00 0.00 Nucleated RBC % 0 0 Sodium 132 L Potassium 3.3 L Chloride 96 L Carbon Dioxide 30.0 Anion Gap 6 BUN 16 Creatinine 0.95 Estim Creat Clear Calc 93.45 Est GFR (MDRD) Af Amer 103 Est GFR (MDRD) Non-Af 86 BUN/Creatinine Ratio 16.8 Glucose 144 H Calcium 8.5 11/07/18 04:56 WBC RBC Hgb Hct MCV MCH MCHC RDW Std Deviation RDW Coeff of Dipti Plt Count MPV Immature Gran % (Auto) Neut % (Auto) Lymph % (Auto) [place] % (Auto) Eos % (Auto) Baso % (Auto) Absolute Neuts (auto) Absolute Lymphs (auto) Absolute Nucleated RBC Nucleated RBC % Sodium 133 L Potassium 3.3 L Chloride 98 Carbon Dioxide 30.0 Anion Gap 5 BUN 17 Creatinine 1.02 Estim Creat Clear Calc 87.04 Est GFR (MDRD) Af Amer 96 Est GFR (MDRD) Non-Af 79 BUN/Creatinine Ratio 16.7 Glucose 175 H Calcium 8.2 L POC Glucose 11/07/18 11/06/18 06:29 21:58 POC Glucose 153 H 157 H Medical Necessity - Tobacco Use Smoking Status: Never smoker Tobacco Use: Non-smoker Assessment/Plan This is a 58 years old male patient was sent to ED for evaluation after he was found to have positive blood culture that was done for fever that has been going on for 3 weeks in context of recent history of left third toe chronic ulcer with osteomyelitis status post partial amputation that was done on September 10, 2018 and was found to have MSSA bacteremia. #1 MSSA bacteremia: This was reported, blood culture results not available. Patient is on IV Rocephin. He still having spikes of fever. Blood pressure slightly elevated, other vital signs are stable. Blood cultures pending. Probable source is the left third toe osteomyelitis. Infectious disease and podiatry medicine consulted, awaiting recommendations. Plan: We will do chest x-ray, urinalysis, continue IV Rocephin for now, obtain blood culture results from [facility]. #2 recent history of left third toe chronic nonhealing ulcer/osteomyelitis: Status post partial amputation, complicated by MSSA bacteremia, completed 4 weeks weeks of IV cefazolin, was completed on October 10, 2018. Plan as above, continue IV antibiotics, awaiting podiatry medicine recommendations. #3 mild hyponatremia/hypokalemia: Probably due to Lasix. Patient is on IV potassium replacement. Plan to repeat BMP tomorrow morning. #4 chronic iron deficiency anemia: Baseline hemoglobin is been around 8 to 10 g/dL. Patient mentioned that he received 2 units of blood transfusion yesterday. Today's hemoglobin is 8.7 g/dL. No evidence of active bleeding, plan to repeat CBC tomorrow morning. #5 CAD status post CABG: Stable, no acute issues. Continue aspirin, statins, nitrate, lisinopril and metoprolol. #6 type 2 diabetes mellitus: Blood sugar stable, continue Lantus insulin nightly and sliding scale. #7 hypertension: Blood pressure stable, continue Norvasc, Lasix, lisinopril and metoprolol. #8 paroxysmal atrial fibrillation: He is in sinus rhythm, rate is controlled. Continue metoprolol for rate control. He is not on any anti-coagulation. #9 hyperlipidemia: Continue statins. #10 DVT prophylaxis: Subcu Lovenox. This note was generated with [employer] software. It may contain incorrect words, spelling, and punctuation that were not noted in checking the note before signing. Code Visit Inpatient E&M: 34104 Subs Hosp L2
[2018-11-07] MEDS: Potassium Chloride 10mEq/100mL 10 MEQ/100 ML IV.SOLN. 100 MEQ IV BOLUS ×2 (10:28→11:15)
--- NOTE | 2018-11-07 10:40 | RAD_ITS ---
STUDY: X-RAY CHEST REASON FOR EXAM: Male, 58 years old. Fever TECHNIQUE: Single AP portable view of the chest. COMPARISON: 09/21/2018 FINDINGS: The lungs are clear and expanded. There is no demonstrated pleural abnormality. Sternal cerclage wires and vascular clips are present from a prior sternotomy and coronary artery bypass graft procedure (CABG). Normal mediastinum and sg. Normal visualized pulmonary arteries. Normal visualized aortic arch and descending thoracic aorta. Normal visualized thoracic spine. Normal visualized ribs, clavicles, and shoulders. There is no demonstrated abnormality of the visualized soft tissue structures of the upper abdomen. RAD/Chest 1 View (Portable) IMPRESSION: No acute pulmonary process Electronically Signed: Hector Mendes MD at 12:52 EDT , Service support ,
[2018-11-07 11:36] LABS: Bedside Glucose 172 mg/dL (70-110)
--- NOTE | 2018-11-07 11:42 | NURSING ---
Addendum entered by Clara Hernandez 11/07/18 11:44: Correction, Ioana, ADAMARIS/salon receptionist. Original Note: This nurse talked with salon receptionist at Dr. Gavin Martell's office and informed her of order for blood culture report and that this nurse was faxing over consent to release information from patient. Consent faxed at this time per LLOYD Triplett.
--- NOTE | 2018-11-07 13:02 | ECHOD_ITS ---
Reason For Study: Bacteremia, Murmur Procedure This was a 2D Doppler, Color Flow transthoracic echocardiogram. Exam performed portable in patient room. Left Ventricle Normal LV size. Concentric left ventricular hypertrophy. The estimated ejection fraction is 55 %. Stage 3 diastolic dysfunction. No regional wall motion abnormalities noted. Right Ventricle Normal RV size. Normal systolic function. Atria The left atrium is moderately enlarged. Normal right atrium. No doppler evidence for ASD. Mitral Valve Mild diffuse mitral valve thickening. There is mild mitral annular calcification. Mild mitral valve stenosis. Trivial mitral valve insufficiency. Tricuspid Valve There is no tricuspid stenosis. Mild tricuspid valve insufficiency. Pulmonary artery systolic pressure is 55 mmHg. Aortic Valve Aortic sclerosis, no stenosis. Trisinus/trileaflet aortic valve. There is no aortic stenosis. No aortic valve insufficiency. Pulmonic Valve There is no pulmonic valvular stenosis. Trivial pulmonic valve insufficiency. Great Vessels Normal aortic root. Pericardium/Pleural No pericardial effusion. MMode/2D Measurements & Calculations LVIDd: 4.9 cm IVSd: 1.5 cm Ao root diam: 3.6 cm LVIDs: 3.8 cm LVPWd: 1.5 cm RVDd: 4.2 cm FS: 23.1 % LAV(MOD-bp): 83.4 ml LVAd ap4: 33.3 cm2 SV(MOD-sp4): 66.1 ml LAV(MOD-bp) Indexed: 38.5 ml/m2 EDV(MOD-sp4): 116.0 ml LAV(MOD-sp2): 106.2 ml EDV(sp4-el): 121.3 ml LAV(MOD-sp4): 62.9 ml LVAs ap4: 19.7 cm2 ESV(MOD-sp4): 49.8 ml ESV(sp4-el): 50.2 ml EF(MOD-sp4): 57.0 % EF(sp4-el): 58.6 % SV(sp4-el): 71.1 ml LA A4 area: 21.5 cm2 LA dimension(2D): 4.8 cm RA A4 area: 25.7 cm2 Doppler Measurements & Calculations MV E max [place]: 154.4 cm/sec Lat Peak E' [place]: 11.9 cm/sec Med Peak E' [place]: 5.6 cm/sec E/E' lat: 13.0 E/E' med: 27.5 MV V2 max: 190.2 cm/sec Ao V2 max: 145.4 cm/sec LV V1 max: 110.4 cm/sec MV max P.5 mmHg Ao max P.5 mmHg LV V1 max P.9 mmHg MV V2 mean: 88.2 cm/sec Ao V2 mean: 98.9 cm/sec MV mean P.1 mmHg Ao mean P.4 mmHg MV V2 VTI: 41.2 cm Ao V2 VTI: 30.6 cm PA V2 max: 97.3 cm/sec TR max [place]: 338.6 cm/sec TR max P.9 mmHg Interpretation Summary The estimated ejection fraction is 55 %. Stage 3 diastolic dysfunction. Mild mitral valve stenosis. Trivial mitral valve insufficiency. Mild tricuspid valve insufficiency. Pulmonary artery systolic pressure is 55 mmHg. Ordering Physician: Sacha Yuan Referring Physician: Delgado Smith Performed By: Zoe Yi, DEJON, RVT
--- NOTE | 2018-11-07 13:04 | MRI_ITS ---
STUDY: MRI LEFT MIDFOOT REASON FOR EXAM: Male, 58 years old. Foot infection TECHNIQUE: Standardized fat and water weighted pulse sequences were obtained in all 3 orthogonal planes. COMPARISON x-ray earlier today: None. FINDINGS: Normal talonavicular articulation. Normal calcaneocuboid articulation. Markedly abnormal appearance to the midfoot with marrow edema and bony destruction of the tarsal navicular bone, cuboid bone, the cuneiform bones, and the base of the metatarsal bones worrisome for Charcot joint and superimposed infection. There are fluid collection in the surrounding soft tissues of the midfoot worrisome for abscesses. One is plantar and lateral measuring 1 x 3 cm and one is dorsal in the midline measuring 1. 1.5 cm.. Normal tibialis anterior tendon. Normal extensor hallucis longus tendon. Normal extensor digitorum longus tendons. Normal peroneus longus tendon and distal insertion. Normal peroneus brevis tendon and distal insertion. There is diffuse atrophy of the intrinsic muscles of the foot consistent with a peripheral neuropathy. Normal extensor digitorum brevis muscle. Diffuse skin thickening and edema the simultaneous fat and system with cellulitis. Furthermore, there is soft tissue swelling of the third digit with marrow edema and destruction of the distal aspect of the remaining third middle phalanx worrisome for ostial myelitis. MRI/Lower Ext No Joint W/WO Cont IMPRESSION: 1. Osteomyelitis of the third middle phalanx. 2. Charcot foot but suspect superimposed osteomyelitis of the bones of the midfoot and the proximal metatarsal bones with surrounding abscesses. Electronically Signed: Jacobo Torrez MD at 16:52 EDT Tel , Service support ,
--- NOTE | 2018-11-07 13:06 | CON.PCM_ITS ---
Problem List (1) MSSA bacteremia Status: Chronic Reason for Consult: mssa bacteremia Consulted by: Dr. 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 Discharged on cefazolin, stop date a month ago. Reports 3 weeks of chills, sweats, not feeling well, weight loss, and severe progressive L foot pain. No swelling/redness/drainage of L foot. Saw PCP, had bcx sent, called about (+) results, sent to ED. Admitted on ceftriaxone after dose of vanc. Feeling about the same. Full ROS performed and neg except as noted above. - Medical History Past Medical History (Chronic Problems): Chronic Problems (Last Updated 11/07/18 @ 10:30 by Jono Guzman MD) 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[place] coronary artery w/angina pectoris (Chronic) CABG x 3 WALL-LAD, Free MAIK-OM, SVG-RPDA 06/12/18 Chronic diastolic (congestive) heart failure (Chronic) HLD (hyperlipidemia) (Chronic) MSSA bacteremia (Chronic) Osteomyelitis (Chronic) Sinus bradycardia (Chronic) Atherosclerosis of coronary artery without angina pectoris (Chronic) CABG x 3 WALL-LAD, Free MAIK-OM, SVG-RPDA 06/12/18 H/O coronary artery bypass surgery (Chronic 06/12/18) CABG x 3 WALL-LAD, Free MAIK-OM, SVG-RPDA 06/12/18 Essential hypertension (Chronic) Allergies/Adverse Reactions: Allergies Penicillins [PCN] Allergy (Verified 11/06/18 18:05) Unknown Home Medications: Ambulatory Orders Medication Instructions Recorded atorvastatin 80 mg tablet 40 mg PO QHS 07/24/18 glimepiride 2 mg tablet 2 mg PO DAILY tab 07/24/18 pantoprazole 40 mg tablet,delayed 40 mg PO DAILY 07/24/18 release Aspirin E.C. [Ecotrin] 81 mg PO DAILY@0800 09/09/18 Lisinopril [Zestril] 20 mg PO BID 09/09/18 amlodipine 10 mg tablet 5 mg PO DAILY tab 10/17/18 isosorbide mononitrate ER 30 mg 30 mg PO DAILY #90 tab 10/17/18 tablet,extended release 24 hr metoprolol tartrate 25 mg tablet 25 mg PO BID #180 tab 10/17/18 nitroglycerin 0.4 mg sublingual 0.4 mg SUBLINGUAL Q5M PRN #25 tab 10/17/18 tablet Cholecalciferol (Vitamin D3) 50,000 unit PO FR 11/06/18 [Vitamin D] Furosemide 80 mg PO BID 11/06/18 traMADol [Ultram (G)] 50 mg PO BID 11/06/18 - Social History Tobacco Use: non-smoker Vital Signs Temp Pulse Resp BP Pulse Ox 99.3 F H 72 18 162/71 H 95 11/07/18 09:27 11/07/18 09:40 11/07/18 09:27 11/07/18 09:27 11/07/18 09:27 Oxygen Delivery Method Room Air Weight: 96.3 kg Body Mass Index (BMI) 28.0 Laboratory Tests Past 24 Hrs 11/06/18 11/06/18 11/07/18 19:15 19:15 04:56 WBC 13.6 H 13.3 H RBC 3.49 L 3.19 L Hgb 9.2 L 8.7 L Hct 28.6 L 26.3 L MCV 81.9 82.4 MCH 26.4 L 27.3 MCHC 32.2 33.1 RDW Std Deviation 44.8 H 44.6 H RDW Coeff of Dipti 14.9 H 14.8 H Plt Count 513 H 475 H MPV 9.7 10.2 Immature Gran % (Auto) 0.900 0.900 Neut % (Auto) 77.5 H 78.5 H Lymph % (Auto) 9.0 L 8.3 L Emmons % (Auto) 10.5 H 9.8 Eos % (Auto) 1.6 2.0 Baso % (Auto) 0.5 0.5 Absolute Neuts (auto) 10.5 H 10.5 H Absolute Lymphs (auto) 1.22 1.10 Absolute Nucleated RBC 0.00 0.00 Nucleated RBC % 0 0 Sodium 132 L Potassium 3.3 L Chloride 96 L Carbon Dioxide 30.0 Anion Gap 6 BUN 16 Creatinine 0.95 Estim Creat Clear Calc 93.45 Est GFR (MDRD) Af Amer 103 Est GFR (MDRD) Non-Af 86 BUN/Creatinine Ratio 16.8 Glucose 144 H Calcium 8.5 11/07/18 04:56 WBC RBC Hgb Hct MCV MCH MCHC RDW Std Deviation RDW Coeff of Dipti Plt Count MPV Immature Gran % (Auto) Neut % (Auto) Lymph % (Auto) Emmons % (Auto) Eos % (Auto) Baso % (Auto) Absolute Neuts (auto) Absolute Lymphs (auto) Absolute Nucleated RBC Nucleated RBC % Sodium 133 L Potassium 3.3 L Chloride 98 Carbon Dioxide 30.0 Anion Gap 5 BUN 17 Creatinine 1.02 Estim Creat Clear Calc 87.04 Est GFR (MDRD) Af Amer 96 Est GFR (MDRD) Non-Af 79 BUN/Creatinine Ratio 16.7 Glucose 175 H Calcium 8.2 L - Other Studies Radiology: [] reviewed Other Studies: [] Route of nutrition/ use of supplements: [] Nutritional Intake: [] IV Site: [] Zhu Catheter: [] - Physical Exam General: Alert, Oriented x3, Cooperative, No apparent distress HEENT: Atraumatic, PERRLA, EOMI Neck: Supple, No Nodes Lungs: Clear to auscultation, Normal air movement Cardiovascular: Regular rate, Regular Rhythm, Murmur Abdomen: Soft, Non Tender, Non-Distended Extremities: Edema Skin: Ulcer/ Wound - minimal ulceration on L 3rd toe, - - no splinter hemorrhages on hands IV Site: Peripheral, without redness Musculoskeletal: No Tenderness to Palpation of Joints or Extremities, - - no spine tenderness Neurological: Cranial nerves II-XII grossly intact, - - Assessment/Plan Antibiotics: [] Assessment/Plan: [] sepsis due to MSSA bacteremia with recent admit for mssa endocarditis and osteo - repeat bcx. Spoke with [facility] lab, [facility] showed mssa and enterobactericiae, but only GPC and no GNR seen on culture or gram stain. GNR may not be true pathogen. Will broaden abx to cefepime/flagyl until results are finalized. Suspect foot as source vs incompletely treated prior infection. Will check echo and L foot MRI. Will follow, thank you.
--- NOTE | 2018-11-07 13:33 | CASEMGMT ---
RN CM Assessment Presentation: L middle toe distal MSSA infection. Intro role of CM and purpose of RN CM assessment to patient and significant other. Demographics, PCP and Pharmacy verified. PCP: Dr. Smith Specialists: Dr. Yuan Preferred Pharmacy: [facility] Insurance: [employer] [facility] Prescription Benefit: yes LNOK: Maya Crabtree, SO Living Arrangements: Lives independently in own home. Denies any care needs with ADL's. SO Maya is able to assist if needed. Pt is wearing CAM boot and states it gets in the way. SO states they could use shower chair. RN CM let her know these are not covered under insurance but are available at [employer]. Transportation: SO drives DME: Walker, cane, wheelchair HHC: [facility], current with RN. will need Resumption order with any additional instructions (if IV antibiotics, wound care needed). PH: FX: Patient DC goals: Home DC PLAN: Home. MRI pending [facility] RN ACM
--- NOTE | 2018-11-07 14:51 | CHAPLAIN ---
Type of Pastoral Visit _x__ Initial Visit ___ Follow-up Visit ___ On-call Visit ___ General Patient Visit ___ Spiritual Assessment ___ Family Conference ___ Bereavement ___ Rapid Response ___ Code Blue ___ Other (describe below) Pastoral Care Referral From _x__ Patient ___ Family ___ Nurse ___ Physician ___ Functional Skills Tutor ___ [place] Man ___ Other (describe below) Sacrament/Intervention _x__ Active listening ___ Anointing ___ Jain ___ Bereavement ___ Communion _x__ Charlette exploration ___ ___ Life review _x__ Prayer ___ Reconciliation ___ Sacrament of Sick _x__ Supportive presence ___ Wedding ___ Other (describe below) Pastoral Comments patient has many questions about why and related illness to spiritual issues; pt has been seen before in previous admissions; pt requests further support by reel and rewinder operator as needed; pt had scheduled testing to do yet and visit was cut short; prayer given
--- NOTE | 2018-11-07 14:59 | PCA ---
pt off floor
--- NOTE | 2018-11-07 15:24 | RAD_ITS ---
STUDY: X-RAY - LEFT FOOT CLINICAL: Male, 58 years old. Third digit toe infection TECHNIQUE: 4 view(s) of the foot. COMPARISON: None. FINDINGS: Normal talus, ,. There is mildly increased bony sclerosis of the cuneiforms and cuboid of indeterminate etiology possibly due to chronic inflammatory changes or neoplasm. Prominent calcaneal spur and posterior enthesophyte Normal visualized subtalar, talonavicular, calcaneocuboid, tarsal and tarsometatarsal articulations. There is periosteal elevation of the third and fourth metatarsals of indeterminate etiology possibly inflammatory or prior trauma. Normal metatarsophalangeal joint of the great toe. Normal tibial and fibular sesamoid bones. Normal interphalangeal joint of the great toe. Normal phalanges of the great toe. Normal second through fifth metatarsophalangeal joints. Normal interphalangeal joints and phalanges of the lesser toes. Soft tissue swelling of the the distal third toe without definitive evidence for acute osteomyelitis however this may be further assessed with MRI if clinically warranted. RAD/Foot min 3 Views IMPRESSION: Soft tissue swelling of the distal third toe without definitive evidence for acute osteomyelitis Other nonspecific bony changes involving the tarsals and metatarsals of indeterminate etiology possibly due to inflammatory changes however clinical correlation recommended. MRI would be helpful for more definitive evaluation Electronically Signed: Ezekiel Fuentes MD at 16:30 EDT , Service support ,
[2018-11-07] MEDS: metroNIDAZOLE 500 MG Tablet PO ×2 (16:12→21:46)
[2018-11-07 16:25] LABS: Bedside Glucose 123 mg/dL (70-110)
--- NOTE | 2018-11-07 16:55 | NURSING ---
THIS NURSE TEXTED DR. SCHULTZ TO LET HIM KNOW THAT 2ND BOTTLE OF BLOOD CULTURES WERE SHOWING GRAM + COCCI. DR. SCHULTZ SAID TO TEXT AND INFORM DR. MEJIA. THIS NURSE DID SO AT THIS TIME, HE IS AWARE AND NO NEW ORDERS.
[2018-11-07 17:49] LABS: Bacteria 0 SEEN /hpf (None Seen); Mucous, Urine 0 SEEN /hpf (<or=2+); Squamous Epithelial Cells - UA 0 SEEN /hpf (0-5); White Blood Cells 0 SEEN /hpf (0-5)
[2018-11-07 17:53] LABS: Color, Urine Yellow (Yellow); Glucose, Dipstick Normal (Normal); Ketone-Dipstick Negative (Negative); Leukocyte Esterase-Dipstick Negative /ul (Negative); Nitrite-Dipstick Negative (Negative); Occult Blood-Urine 10 /ul (Negative); Protein-Dipstick 100 mg/dl (Negative); Specific Gravity, Urine 1.005 (1.002-1.030); Urine Bilirubin Dipstick Negative (Negative); Urine Clarity Clear (Clear); Urine Urobilinogen 12 mg/dl (Normal)
[2018-11-07 18:06] LABS: Red Blood Cells-Urine 0-5 SEEN /hpf (0-5)
--- NOTE | 2018-11-07 20:09 | CON.PCM_ITS ---
Reason for Consult Date of Consultation: 11/07/18 Reason for Consultation: Left 3rd toe infection History of Present Illness: The patient is a 58 year old gentleman with history of multiple medical problems including diabetes, left foot charcot neuroarthropathy, CAD s/p cardic bypass surgery, endocarditis now with recurrent bacteremia/sepsis with possible source from left 3rd toe. Patient had osteomyelitis to the left 3rd toe and had partial amputation in August [address] Barnett. There is concern source of bacteremia / sepsis is from toe. Patient denies any drainage from foot. He wears a CAM Walker to the left foot and is suppose to be nonweightbearing to the left foot, he re lates he puts some weight on the foot. He relates he is considering a below the knee amputation due to the charcot neuroarthropathy. Patient relates to recent fevers, also noted to have leukocytosis on admission. Past Medical History Past Medical History (Chronic Problems): Chronic Problems (Last Updated 11/07/18 @ 10:30 by Jono Guzman MD) 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[place] coronary artery w/angina pectoris (Chronic) CABG x 3 WALL-LAD, Free MAIK-OM, SVG-RPDA 06/12/18 Chronic diastolic (congestive) heart failure (Chronic) HLD (hyperlipidemia) (Chronic) MSSA bacteremia (Chronic) Osteomyelitis (Chronic) Sinus bradycardia (Chronic) Atherosclerosis of coronary artery without angina pectoris (Chronic) CABG x 3 WALL-LAD, Free MAIK-OM, SVG-RPDA 06/12/18 H/O coronary artery bypass surgery (Chronic 06/12/18) CABG x 3 WALL-LAD, Free MAIK-OM, SVG-RPDA 06/12/18 Essential hypertension (Chronic) Medical History: Medical History (Last Updated 11/07/18 @ 10:30 by Jono Guzman MD) 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[place] coronary artery w/angina pectoris (Chronic) I25.119 CABG x 3 WALL-LAD, Free MAIK-OM, SVG-RPDA 06/12/18 Chronic diastolic (congestive) heart failure (Chronic) I50.32 HLD (hyperlipidemia) (Chronic) E78.5 MSSA bacteremia (Chronic) R78.81 Osteomyelitis (Chronic) M86.9 Sinus bradycardia (Chronic) R00.1 Atherosclerosis of coronary artery without angina pectoris (Chronic) I25.10 CABG x 3 WALL-LAD, Free MAIK-OM, SVG-RPDA 06/12/18 Essential hypertension (Chronic) I10 Cataracts, both eyes H26.9 Chronic ulcer of left foot with fat layer exposed L97.522 Diabetic retinopathy E11.319 GERD (gastroesophageal reflux disease) K21.9 Hammer toe of left foot M20.42 Iron deficiency anemia D50.9 Normocytic anemia D64.9 Obesity (BMI 30.0-34.9) E66.9 Type 2 diabetes mellitus E11.9 Diastolic dysfunction with acute on chronic heart failure I50.33 Postoperative atrial fibrillation (Inactive) Onset Date: 06/12/18 I97.89, I48.91 Allergies Penicillins [PCN] Allergy (Verified 11/06/18 18:05) Unknown Home Medications: Ambulatory Orders Medication Instructions Recorded atorvastatin 80 mg tablet 40 mg PO QHS 07/24/18 glimepiride 2 mg tablet 2 mg PO DAILY tab 07/24/18 pantoprazole 40 mg tablet,delayed 40 mg PO DAILY 07/24/18 release Aspirin E.C. [Ecotrin] 81 mg PO DAILY@0800 09/09/18 Lisinopril [Zestril] 20 mg PO BID 09/09/18 amlodipine 10 mg tablet 5 mg PO DAILY tab 10/17/18 isosorbide mononitrate ER 30 mg 30 mg PO DAILY #90 tab 10/17/18 tablet,extended release 24 hr metoprolol tartrate 25 mg tablet 25 mg PO BID #180 tab 10/17/18 nitroglycerin 0.4 mg sublingual 0.4 mg SUBLINGUAL Q5M PRN #25 tab 10/17/18 tablet Cholecalciferol (Vitamin D3) 50,000 unit PO FR 11/06/18 [Vitamin D] Furosemide 80 mg PO BID 11/06/18 traMADol [Ultram (G)] 50 mg PO BID 11/06/18 Surgical History: Surgical History (Last Reviewed 10/17/18 @ 10:17 by Fredo Rodriguez MD) H/O coronary artery bypass surgery (Chronic) Onset Date: 06/12/18 Z95.1 CABG x 3 WALL-LAD, Free MAIK-OM, SVG-RPDA 06/12/18 Amputated toe of left foot Onset Date: 08/2018 S98.132A History of left heart catheterization Onset Date: 05/20/18 Z98.890 Hx of cholecystectomy Z90.49 S/P meniscectomy Z98.890 Surgical History: cataract, cholecystectomy, coronary bypass surgery, total knee arthroplasty, - - Prior and recent toe partial amputation, skin cancer face resection. Psychiatric History: No pertinent psych hx Smoking Status: Never smoker Tobacco Use: Non-smoker Alcohol: None Drugs: None - *Family History Maternal Family History: Family History (Last Reviewed 10/17/18 @ 10:17 by Fredo Rodriguez MD) Mother Diabetes History Items: Diabetes Paternal Family History: Family History (Last Reviewed 10/17/18 @ 10:17 by Fredo Rodriguez MD) Mother Diabetes History Items: Unknown - Patient does not know his paternal family history. Review of Systems Constitutional: Reports: Fever Gastrointestinal: Denies: Nausea, Vomiting Skin: Reports: Wounds - Physical Exam General: Alert, Oriented x3, Cooperative, No apparent distress Extremities: Capillary Refill Less than 3 Seconds, No Calf Tenderness, - - Left foot s/p partial 3rd toe amputation, incision site healed with excision of lateral aspect which has nonviable tissue, this was debrided using a 15 blade (no anesthesia needed due to patient's peripheral neuropathy). There is noted probe to bone to the ulcer site left 3rd toe consistent with osteomyelitis, there is mild erythema localized to the distal 3rd toe, there is no streaking, no maloder, no fluctuance, no crepitus, no visible abscess, no blistering, no purulence or drainage present to the left 3rd toe or the rest of the left foot/ankle/leg. Chronic edema noted, there is collapsed arch of the left foot consistent with his episode of Charcot neuroarthropathy. Vital Signs Temp Pulse Resp BP Pulse Ox 99.9 F H 78 18 172/68 H 96 11/07/18 15:32 11/07/18 15:32 11/07/18 15:32 11/07/18 15:32 11/07/18 15:32 Oxygen Delivery Method Room Air Weight: 96.3 kg Body Mass Index (BMI) 28.0 Intake and Output for Last 24 Hours 11/05/18 11/06/18 11/07/18 23:59 23:59 23:59 Intake Total 458 / 458 1999 Output Total 1000 / 1000 Balance 458 / 458 1000 / 1000 Microbiology Past 72 Hours 11/06/18 19:15 Blood Culture - Preliminary Blood Culture (Wb) - Anticubital Left Laboratory Tests Past 24 Hrs 11/07/18 11/07/18 11/07/18 04:56 04:56 13:35 WBC 13.3 H RBC 3.19 L Hgb 8.7 L Hct 26.3 L MCV 82.4 MCH 27.3 MCHC 33.1 RDW Std Deviation 44.6 H RDW Coeff of Dipti 14.8 H Plt Count 475 H MPV 10.2 Immature Gran % (Auto) 0.900 Neut % (Auto) 78.5 H Lymph % (Auto) 8.3 L [place] % (Auto) 9.8 Eos % (Auto) 2.0 Baso % (Auto) 0.5 Absolute Neuts (auto) 10.5 H Absolute Lymphs (auto) 1.10 Absolute Nucleated RBC 0.00 Nucleated RBC % 0 Sodium 133 L Potassium 3.3 L Chloride 98 Carbon Dioxide 30.0 Anion Gap 5 BUN 17 Creatinine 1.02 Estim Creat Clear Calc 87.04 Est GFR (MDRD) Af Amer 96 Est GFR (MDRD) Non-Af 79 BUN/Creatinine Ratio 16.7 Glucose 175 H Calcium 8.2 L Urine Color Yellow Urine Clarity Clear Urine pH 7.0 Ur Specific [place] 1.005 Urine Protein 100 H Urine Glucose (UA) Normal Urine Ketones Negative Urine Occult Blood 10 H Urine Nitrite Negative Urine Bilirubin Negative Urine Urobilinogen 12 H Ur Leukocyte Esterase Negative Urine RBC 0-5 SEEN Urine WBC 0 SEEN Ur Squamous Epith Cells 0 SEEN Urine Bacteria 0 SEEN Urine Mucus 0 SEEN POC Glucose 11/07/18 11/07/18 11/07/18 16:17 11:17 06:29 POC Glucose 123 H 172 H 153 H 11/06/18 21:58 POC Glucose 157 H Assessment/Plan Osteomyelitis left 3rd toe Bacteremia/sepsis Charcot neuroarthropathy left foot Diabetes with peripheral neuropathy There is ulceration to the distal latera left 3rd toe, there was nonviable tissue to the site which was debrided using a 15 blade, it was noted there is underlying ulceration which probes to bone consistent with osteomyelitis. There is mild erythema, no visible abscess to the foot, no streaking, no evidence of necrotizing infection. An MRI is pending, and also ordered new foot xray. A culture was obtained of the ulceration and was sent to microbiology for further evaluation. Blood cultures pending. Patient is on IV antibiotics per ID service/Dr. Yuan. We discussed possible further amputation of the left 3rd toe. We will await MRI and xrays for further evaluation at this time. Patient to remain nonweightbearing to the left foot, and keep protected with CAM Walker. Betadine solution was painted to ulcer site and applied gauze dressing. Change daily. Podiatry will continue to follow, thank you for consultation.
[2018-11-07] MEDS: Acetaminophen 325 MG Tablet 650 MG PO (21:51)
[2018-11-07 22:56] LABS: Bedside Glucose 159 mg/dL (70-110)
[2018-11-08] VITALS (21 sets, daily range): BP systolic 147–180; BP diastolic 66–94; PULSE 56–80; RESP 16–18; TEMP 36.6–37.6; O2SAT 92–99; BMI 28.0
[2018-11-08] MEDS: hydrALAZINE 20 MG/ML Vial 10 MG IV (03:06)
[2018-11-08] MEDS: 0.9% NaCl Peripheral Flush Adult/Peds IV (03:06)
[2018-11-08] MEDS: oxyCODONE 5 MG Tablet PO ×3 (06:13→19:53)
[2018-11-08] MEDS: metroNIDAZOLE 500 MG Tablet PO ×3 (06:14→21:18)
[2018-11-08 06:36] LABS: Bedside Glucose 117 mg/dL (70-110)
[2018-11-08 06:42] LABS: Absolute Lymphocyte Count 1.03 X10^3/uL (0.83-4.51); Absolute Neutrophil Count 9.9 X10^3/uL (2.0-7.7); Absolute Nucleated RBC Count 0.02 10^3/uL (0-5); Basophil# 0.07 X10^3/uL; Basophil% 0.5 % (0-1); Eosinophil# 0.34 X10^3/uL; Eosinophils% 2.7 % (0-5); Hematocrit 26.1 % (40-54); Hemoglobin 8.5 g/dL (13.0-16.5); Lymphocyte # 1.03 X10^3/ul (4.0); Lymphocyte % 8.1 % (19-41); Mean Corp Hgb Conc 32.6 g/dL (32-36); Mean Corpuscular Hgb 26.7 pg (27.0-32.0); Mean Corpuscular Volume 82.1 fL (80-94); Mean Platelet Vol. 9.7 fl (6.2-12.0); Monocyte% 10.2 % (0-10); NRBC Flagged by Analyzer 0.2 % (0-5); Neutrophil # 9.85 X10^3/uL (2.7-7.7); Neutrophil % 77.4 % (47-70); Platelet Count 468 K/mm3 (150-450); RBC Distribution Width CV 15.2 % (11.6-14.6); RBC Distribution Width SD 46.1 fl (35.1-43.9); Red Blood Count 3.18 M/mm3 (4.6-6.2); White Blood Count 12.7 K/mm3 (4.4-11.0)
[2018-11-08 07:01] LABS: Anion Gap 10 (5-15); BUN 17 mg/dL (7-18); BUN/Creat Ratio 18.6 RATIO (10-20); Calcium,Total 8.6 mg/dL (8.5-10.1); Chloride 96 mmol/L (98-107); Creatinine, Serum 0.92 mg/dL (0.70-1.30); EST Glomerular Filtration Rate 90 mL/min (>60); Est Glom Filt Rate - Afr Amer 108 mL/min (>60); Glucose 119 mg/dL (74-106); Potassium 3.3 mmol/L (3.5-5.1); Sodium Level 135 mmol/L (136-145)
--- NOTE | 2018-11-08 08:33 | PN_ITS ---
Subjective: Patient was seen this morning for follow up on left foot, patient had MRI and foot xrays. Patient had overnight fever, currently afebrile. Patient relates to chronic pain to left foot ever since onset of charcot. - Physical Exam General: Alert, Oriented x3, Cooperative, No apparent distress Extremities: - - Left foot s/p partial 3rd toe amputation, incision site healed with excision of lateral aspect which has open ulceration, noted probe to bone to the ulcer site left 3rd toe consistent with osteomyelitis, there is no erythema today, there is no streaking, no maloder, no visible abscess, no blistering, no purulence or drainage present to the left 3rd toe or the rest of the left foot/ankle/leg, but there is noted fluctuance to the abscess sites as seen on MRI concerning for deeper abscess. Chronic edema noted, there is collapsed arch of the left foot consistent with his episode of Charcot neuroarthropathy. Vital Signs Temp Pulse Resp BP Pulse Ox 97.8 F 80 16 168/88 H 95 11/08/18 03:09 11/08/18 07:29 11/08/18 03:09 11/08/18 06:39 11/08/18 03:09 Oxygen Delivery Method Room Air Weight: 96.3 kg Body Mass Index (BMI) 28.0 Intake and Output for Last 24 Hours 11/06/18 11/07/18 11/08/18 23:59 23:59 23:59 Intake Total 458 / 458 2000 / 2810 810 / 810 Output Total 1000 / 1900 1500 / 1500 Balance 458 / 458 1000 / 910 -690 / -690 Microbiology Past 72 Hours 11/06/18 19:15 Bacteria Detection (PCR) - Preliminary Blood Culture (Wb) - Anticubital Left Staphylococcus aureus Blood Culture - Preliminary Staphylococcus aureus Laboratory Tests Past 24 Hrs 11/07/18 11/08/18 11/08/18 13:35 06:10 06:10 WBC 12.7 H RBC 3.18 L Hgb 8.5 L Hct 26.1 L MCV 82.1 MCH 26.7 L MCHC 32.6 RDW Std Deviation 46.1 H RDW Coeff of Dipti 15.2 H Plt Count 468 H MPV 9.7 Immature Gran % (Auto) 1.100 H Neut % (Auto) 77.4 H Lymph % (Auto) 8.1 L Bennett % (Auto) 10.2 H Eos % (Auto) 2.7 Baso % (Auto) 0.5 Absolute Neuts (auto) 9.9 H Absolute Lymphs (auto) 1.03 Absolute Nucleated RBC 0.02 Nucleated RBC % 0.2 Sodium 135 L Potassium 3.3 L Chloride 96 L Carbon Dioxide 29.0 Anion Gap 10 BUN 17 Creatinine 0.92 Estim Creat Clear Calc 96.50 Est GFR (MDRD) Af Amer 108 Est GFR (MDRD) Non-Af 90 BUN/Creatinine Ratio 18.6 Glucose 119 H Calcium 8.6 Urine Color Yellow Urine Clarity Clear Urine pH 7.0 Ur Specific [place] 1.005 Urine Protein 100 H Urine Glucose (UA) Normal Urine Ketones Negative Urine Occult Blood 10 H Urine Nitrite Negative Urine Bilirubin Negative Urine Urobilinogen 12 H Ur Leukocyte Esterase Negative Urine RBC 0-5 SEEN Urine WBC 0 SEEN Ur Squamous Epith Cells 0 SEEN Urine Bacteria 0 SEEN Urine Mucus 0 SEEN POC Glucose 11/08/18 11/07/18 11/07/18 06:10 21:55 16:17 POC Glucose 117 H 159 H 123 H 11/07/18 11:17 POC Glucose 172 H Medical Necessity - Tobacco Use Smoking Status: Never smoker Tobacco Use: Non-smoker Assessment/Plan Osteomyelitis left 3rd toe Bacteremia/sepsis, positive blood cultures Charcot neuroarthropathy left foot Diabetes with peripheral neuropathy Reviewed data. WBC trending down, currently patient afebrile. Reviewed left foot xrays and MRI findings. MRI consistent with osteomyelitis to the distal aspect of the 3rd toe, also charcot foot changes to the midfoot but cannot rule out superimposed osteomyelitis, also possible abscesses present. Given the findings we discussed incision and drainage, with debridement of nonviable/infected soft tissue and bone with 3rd toe amputation all left foot. Reviewed the rationale of this with patient in detail, reviewed the possible benefits vs risks, goals, and expectations. We will plan to proceed with this today. Toe culture was obtained of the ulceration and was sent to microbiology for further evaluation - results pending. Patient is on IV antibiotics per ID service/Dr. Yuan. Patient to remain nonweightbearing to the left foot, and keep protected with CAM Walker. Adaptic to ulcer site and applied overlying gauze dressing. Change daily. Podiatry will continue to follow.
--- NOTE | 2018-11-08 08:53 | PCM.PROGNOTE ---
Subjective: Chief complaint: Follow-up after admission for positive blood culture for MSSA/Enterobacter bacteremia in context of recent history of left middle toe MSSA osteomyelitis with MSSA bacteremia. Patient seen and examined. No acute events overnight. Patient still complaining of left foot pain. He has been having spikes of fever, blood pressure is slightly elevated, other vital signs are maintained. - Physical Exam General: Alert, Oriented x3, Cooperative, No apparent distress HEENT: Atraumatic, PERRLA, EOMI, Normocephalic Oral: Moist Mucosa, No Gingival or Mucosal Lesions/ Ulcerations Neck: Supple, No JVD, Negative Carotid Bruits, Trachea Midline, Thyroid Normal Size and Texture Lungs: Clear to auscultation, Normal air movement, No rhonchi, No wheeze, No rales Cardiovascular: Regular rate, Regular Rhythm, Normal S1, Normal S2, PMI Normal Abdomen: Bowel Sounds Present, Soft, Non Tender, Non-Distended, No Hepato-splenomegaly Extremities: No clubbing, No cyanosis, No edema Skin: No rashes, Ulcer/ Wound Lymphatic: No Cervical, Supraclavicular, or Inguinal Adenopathy Neurological: Cranial nerves II-XII grossly intact, Neuro grossly intact Psych/Mental Status: Normal Affect, Appropriate, Alert and oriented to time, place, person, mood and affect Vital Signs Temp Pulse Resp BP Pulse Ox 97.8 F 80 16 168/88 H 95 11/08/18 03:09 11/08/18 07:29 11/08/18 03:09 11/08/18 06:39 11/08/18 03:09 Oxygen Delivery Method Room Air Weight: 212 lb 4.882 oz Body Mass Index (BMI) 28.0 Intake and Output for Last 24 Hours 11/06/18 11/07/18 11/08/18 23:59 23:59 23:59 Intake Total 458 / 458 2000 / 2810 810 / 810 Output Total 1000 / 1900 1500 / 1500 Balance 458 / 458 1000 / 910 -690 / -690 Microbiology Past 72 Hours 11/06/18 19:15 Bacteria Detection (PCR) - Preliminary Blood Culture (Wb) - Anticubital Left Staphylococcus aureus Blood Culture - Preliminary Staphylococcus aureus Laboratory Tests Past 24 Hrs 11/07/18 11/08/18 11/08/18 13:35 06:10 06:10 WBC 12.7 H RBC 3.18 L Hgb 8.5 L Hct 26.1 L MCV 82.1 MCH 26.7 L MCHC 32.6 RDW Std Deviation 46.1 H RDW Coeff of Dipti 15.2 H Plt Count 468 H MPV 9.7 Immature Gran % (Auto) 1.100 H Neut % (Auto) 77.4 H Lymph % (Auto) 8.1 L [place] % (Auto) 10.2 H Eos % (Auto) 2.7 Baso % (Auto) 0.5 Absolute Neuts (auto) 9.9 H Absolute Lymphs (auto) 1.03 Absolute Nucleated RBC 0.02 Nucleated RBC % 0.2 Sodium 135 L Potassium 3.3 L Chloride 96 L Carbon Dioxide 29.0 Anion Gap 10 BUN 17 Creatinine 0.92 Estim Creat Clear Calc 96.50 Est GFR (MDRD) Af Amer 108 Est GFR (MDRD) Non-Af 90 BUN/Creatinine Ratio 18.6 Glucose 119 H Calcium 8.6 Urine Color Yellow Urine Clarity Clear Urine pH 7.0 Ur Specific [place] 1.005 Urine Protein 100 H Urine Glucose (UA) Normal Urine Ketones Negative Urine Occult Blood 10 H Urine Nitrite Negative Urine Bilirubin Negative Urine Urobilinogen 12 H Ur Leukocyte Esterase Negative Urine RBC 0-5 SEEN Urine WBC 0 SEEN Ur Squamous Epith Cells 0 SEEN Urine Bacteria 0 SEEN Urine Mucus 0 SEEN POC Glucose 11/08/18 11/07/18 11/07/18 06:10 21:55 16:17 POC Glucose 117 H 159 H 123 H 11/07/18 11:17 POC Glucose 172 H Microbiology 11/06/18 19:15 Blood Culture (Wb) - Anticubital Left Bacteria Detection (PCR) - Preliminary Staphylococcus aureus 11/06/18 19:15 Blood Culture (Wb) - Anticubital Left Blood Culture - Preliminary Staphylococcus aureus Medical Necessity - Tobacco Use Smoking Status: Never smoker Tobacco Use: Non-smoker Assessment/Plan This is a 58 years old male patient was sent to ED for evaluation after he was found to have positive blood culture that was done for fever that has been going on for 3 weeks in context of recent history of left third toe chronic ulcer with osteomyelitis status post partial amputation that was done on September 10, 2018 and was found to have MSSA bacteremia. #1 MSSA bacteremia: Antibiotics adjusted by infectious disease, patient is on IV cefepime and oral Flagyl. He is still having spike of fever, white blood cell count is trending down. Blood pressure is elevated. Initial blood culture revealed staph aureus, final is pending. Repeat blood cultures pending. Infectious disease on the case. 2D echocardiogram revealed ejection fraction of 55%, stage III diastolic dysfunction, mild mitral stenosis, mild tricuspid insufficiency, no valve vegetations. Plan to continue same treatment. #2 recent/persistent left third toe nonhealing ulcer/osteomyelitis/osteomyelitis of the midfoot bones with surrounding abscesses: Patient underwent partial amputation on September 12, 2018, complicated by MSSA bacteremia, completed 4 weeks weeks of IV cefazolin, was completed on October 10, 2018. Repeat MRI that was done yesterday revealed persistent osteomyelitis of the third middle phalanx, chocolate left foot with superimposed osteomyelitis of the bones of the midfoot and proximal metatarsal bones with surrounding abscesses. Podiatry medicine on the case, plan for surgery today. #3 mild hyponatremia/hypokalemia: Probably due to Lasix. Patient received IV potassium replacement but potassium still low at 3.3 today. Plan to start K. Dur 40 mEq p.o. twice daily. #4 chronic iron deficiency anemia: Baseline hemoglobin is been around 8 to 10 g/dL. Patient mentioned that he received 2 units of blood transfusion the day before admission. Today's hemoglobin is 8.5 g/dL. No evidence of active bleeding. Plan to repeat CBC and BMP tomorrow morning. #5 CAD status post CABG: Stable, no acute issues. Continue aspirin, statins, nitrate, lisinopril and metoprolol. #6 type 2 diabetes mellitus: Blood sugar stable, continue Lantus insulin nightly and sliding scale. #7 hypertension: Blood pressure still elevated, continue Norvasc, Lasix, lisinopril and metoprolol. Plan to increase Norvasc to 10 mg p.o. daily. #8 paroxysmal atrial fibrillation: He is in sinus rhythm, rate is controlled. Continue metoprolol for rate control. He is not on any anti-coagulation. #9 hyperlipidemia: Continue statins. #10 DVT prophylaxis: Subcu Lovenox. This note was generated with [employer] software. It may contain incorrect words, spelling, and punctuation that were not noted in checking the note before signing. Code Visit Inpatient E&M: [id number] [place] [address]
--- NOTE | 2018-11-08 09:10 | EKG12_ITS ---
Test Reason : PRE OP Blood Pressure : / mmHG Vent. Rate : 065 BPM Atrial Rate : 065 BPM P-R Int : 152 ms QRS Dur : 088 ms QT Int : 482 ms P-R-T Axes : 014 033 063 degrees QTc Int : 501 ms Normal sinus rhythm Prolonged QT Abnormal ECG When compared with ECG of 22-SEP-2018 05:35, Sinus rhythm is no longer with 2nd degree A-V block (Mobitz I) Confirmed by TRESA SPENCER ([id number]), book or script editor GALINDO BECKFORD ([id number]) on 11/14/2018 8:58:14 AM Referred By: Jimmy Jean Baptiste Confirmed By:TRESA SPENCER
[2018-11-08 09:31] LABS: Bedside Glucose 114 mg/dL (70-110)
--- NOTE | 2018-11-08 09:40 | NURSING ---
Report called to [facility], said to give Betta leonardo, norvasc and imdur.
[2018-11-08] MEDS: Isosorbide Mononitrate 30 MG Tablet PO (09:44)
[2018-11-08] MEDS: amLODIPine 10 MG Tablet PO (09:47)
[2018-11-08] MEDS: Metoprolol Tartrate 25 MG Tablet PO ×2 (09:47→21:18)
--- NOTE | 2018-11-08 10:11 | RAD_ITS ---
STUDY: X-RAY - LEFT FOOT CLINICAL: Male, 58 years old. Toe amputation TECHNIQUE: 4 fluoroscopic views view(s) of the foot. Dose area product: 0.539 cGycm2 COMPARISON: None. FINDINGS: 4 fluoroscopic views demonstrate placement of a surgical instrument over the third and fifth metacarpals on several images. Significant arthrosis of the midfoot partially visualized. RAD/Foot min 3 Views IMPRESSION: Fluoroscopic guidance for surgical guidance. Electronically Signed: Dylan Garrett MD at 12:43 EDT , Service support ,
[2018-11-08] MEDS: Bupivacaine Mpf 0.5% 30 ML VIAL (10:19)
--- NOTE | 2018-11-08 11:08 | OP.PCM_ITS ---
Report of Operation Date of Procedure: 11/08/18 Pre-Operative Diagnosis: 1. Osteomyelitis left 3rd toe. 2. 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 Deep culture left midfoot sent to microbiology. 2. Bone culture left central midfoot sent to microbiology and pathology. 3. Bone culture left lateral midfoot sent to microbiology and pathology. 4. Amputed portion of left 3rd toe sent to pathology. 5. Clearance fragment left 3rd toe sent to microbiology and pathology Estimated Blood Loss (mL): 20mL Description of Procedure: Indications: The patient is a 58 year old gentleman with multiple medical problems including diabetes, who presented to ER with fevers, found to have bacteremia/sepsis (positive blood cultures), appears source is likely from foot. Left 3rd toe with ulceration probing to bone (patient with hx of osteomyelitis to the left 3rd toe s/p partial amputation by Dr. Barnett August 2018, clearance fragments negative for residual infection at that time) with some erythema and MRI changes c/w osteomyelitis to the distal aspect. Also MRI showed Charcot neuroarthropathy with possible superimposed osteomyelitis and abscess formation. Patient is currently on antibiotics per Infectious Disease. Due to the findings patient elected to proceed with incision, drainage, and debridement of nonviable infected soft tissue and bone, bone biopsies, and removal of distal left 3rd toe - we discussed these procedures in great detail, reviewed the possible benefits vs risks. Patient was advised the risks include, but are not limited to pain, further infections, need for further surgery, nonhealing, delay healing, scarring, poor cosmetic result, numbness, weakness, loss of function, complex regional pain syndrome, worsening charcot foot, blood clots, loss of limb, loss of life. Patient understands he is at high risk of eventual limb loss/BKA or AKA. Patient expressed understanding and agreement, he was able to repeat back, all questions were answered. The consent form was reviewed and it was freely signed. No guarantees were given nor implied. Operative Procedure: The patient was brought into the operating room, and was place on the operating room table in the supine position. He was carefully secured to the operating room table with a safely belt around his waist. A time out was performed, the patient was properly identified and the surgical plan was confirmed. He was already on IV antibiotics per Infectious Disease. A well padd ed pneumatic tourniquet was placed around the left ankle. The patient received MAC anesthesia per the anesthesiologist, then a total of 20mL of 0.5% Marcaine plain was given as a left foot block after the skin was cleansed with 70% isopropyl alcohol. The left foot was scrubbed, prepped and draped in the usual aseptic fashion. The left foot exsanguinated, and the left ankle pneumatic tourniquet was inflated to 250mmHg. There was noted to be some crepitus/fluctuance to the dorsal central and lateral midfoot at site of Charcot changes and abscess formation noted on MRI. Intra operative fluoroscopy was used and the midfoot was identified to plan out the incision/biopsy sites. One incision was made overlying the dorsal central midfoot and another over the dorsal lateral midfoot using a 15 blade. Careful dissection was completed down through the subcutaneous tissue layer to bone. There was noted to be fluid collection to these areas consistent with possible abscess. This was drained using a 15 blade. There was noted to be some purulent looking material from the site, a deep culture was obtained and sent to microbiology. The bone to the midfoot was noted to be fragmented and soft throughout with instability of the joints consistent with Charcot neuroarthropathy. In order to further evaluate for osteomyelitis a bone culture was obtained from the central midfoot and another one from the lateral midfoot - these were sent separately to microbiology and pathology for further evaluation. The sites were flushed out with copious amounts of normal saline solution. The sites were packed with 1/4 inch Iodoform gauze packing. There was noted to be an ulceration to the distal lateral residual left 3rd toe, probing to bone. Using a 15 scalpel blade, an incision was made around the toe at level of the proximal interphalangeal joint, extending around the ulceration in racquet shaped fashion, down to bone. The toe was disarticulated at the distal interphalangeal joint excising the distal toe and ulceration. The middle phalanx was noted to be nonviable and yellow consistent with osteomyelitis. The head of the proximal phalanx was visualized and appeared to be healthy viable and free of infection. Using a powered sagittal saw the head of the proximal phalanx was removed and sent as a clearance fragment to microbiology and pathology. All remaining tissues appeared to be healthy and viable, free of any infection. The site was again flushed out with copious amounts of normal saline solution. A flap was created with the remaining viable skin using a 15 blade, the skin edges were brought together and were reapproximated using 3-0 Prolene. The pneumatic tourniquet was deflated midway through the procedure as it was acting as mostly a venous tourniquet, and there was immediate return of good vascular flow to the left foot, with normal temperature gradient and CFT < 2 seconds to the amputation site and to all remaining toes. Total tourniquet time was 17 minutes. A dressing was applied which consisted of betadine soaked adaptic, 4x4 gauze, surgicel, kerlix and yulissa dressing. Patient tolerated the above procedure well with no complications. He was transferred back to the floor with vital signs stable and in good condition. He will be followed as inpatient. Post op xrays were ordered of the left foot. No weightbearing left foot, keep left foot elevated. Grafts/Implants Used: None - Complications None
--- NOTE | 2018-11-08 11:30 | RAD_ITS ---
STUDY: X-RAY - LEFT FOOT CLINICAL: Male, 58 years old. Postop TECHNIQUE: 3 view(s) of the foot. COMPARISON: 11/07/2018. FINDINGS: Prior exam patient has had amputation of the third digit across the head of the proximal phalanx. No other acute changes. Neuropathic joint of the mid foot is stable. Calcified vessels in the foot again noted. RAD/Foot min 3 Views IMPRESSION: Amputation of the third digit across the head of the third proximal phalanx. Electronically Signed: Donta Causey MD at 20:55 EDT , Service support ,
[2018-11-08] MEDS: Pantoprazole Sodium 40 MG Tablet PO (13:03)
[2018-11-08] MEDS: Furosemide 80 MG Tablet PO ×2 (13:03→16:59)
[2018-11-08 13:11] LABS: Bedside Glucose 102 mg/dL (70-110)
[2018-11-08] MEDS: Glucerna Shake 120 ML LIQUID PO ×3 (14:01→21:18)
[2018-11-08] MEDS: Lisinopril 20 MG Tablet PO ×2 (15:32→21:18)
[2018-11-08 16:41] LABS: Bedside Glucose 151 mg/dL (70-110)
[2018-11-08] MEDS: Insulin Lispro 100 UNIT/ML INSULN.PEN SC ×2 (17:03→21:19)
[2018-11-08] MEDS: Atorvastatin Calcium 40 MG Tablet PO (21:18)
[2018-11-08] MEDS: traMADol 50 MG Tablet PO (21:22)
[2018-11-08 21:56] LABS: Bedside Glucose 183 mg/dL (70-110)
[2018-11-09] VITALS (8 sets, daily range): BP systolic 145–172; BP diastolic 65–89; PULSE 59–71; RESP 16–18; TEMP 36.8–37.7; O2SAT 94–97
[2018-11-09] MEDS: Acetaminophen 325 MG Tablet 650 MG PO (03:43)
[2018-11-09] MEDS: oxyCODONE 5 MG Tablet PO ×5 (06:01→19:12)
[2018-11-09] MEDS: metroNIDAZOLE 500 MG Tablet PO ×3 (06:02→20:57)
[2018-11-09 07:01] LABS: Bedside Glucose 135 mg/dL (70-110)
--- NOTE | 2018-11-09 07:48 | PCM.PROGNOTE ---
Subjective: Patient was seen this morning for follow up on left foot, he was resting in bed, overnight fever of 99.9 F. He relates to some nausea. No complaints of vomiting, chills, shortness of breath, calf pain or chest pains. - Physical Exam General: Alert, Oriented x3, Cooperative, No apparent distress Extremities: Capillary Refill Less than 3 Seconds, No Calf Tenderness, - - s/p partial left 3rd toe amputation with sutures intact, viable tissue/viable flaps, s/p I+D dorsal midfoot, incision sites with viable tissue, there is some blood from the site but no purulence, no maloder, no necrosis, no fluctuance, no crepitus, no visible abscess, no cellulitis present here or to the rest of the left foot/ankle/leg. Vital Signs Temp Pulse Resp BP Pulse Ox 98.2 F 71 18 162/89 H 94 11/09/18 06:01 11/09/18 03:38 11/09/18 03:38 11/09/18 03:38 11/09/18 03:38 Oxygen Flow Rate (L/min) 2 Oxygen Delivery Method Room Air Weight: 96.3 kg Body Mass Index (BMI) 28.0 Intake and Output for Last 24 Hours 11/07/18 11/08/18 11/09/18 23:59 23:59 23:59 Intake Total 1999 / 2809 2272 / 2822 910 / 910 Output Total 999 / 1900 1960 / 2910 1375 / 1375 Balance 1000 / 910 312 / -88 -465 / -465 Microbiology Past 72 Hours 11/08/18 Unknown Gram Stain - Final Tissue - Left Foot 11/08/18 Unknown Gram Stain - Final Tissue - Left Foot 11/08/18 Unknown Gram Stain - Final Tissue - Left Foot 11/08/18 Unknown Gram Stain - Final Tissue - Aerobic & Anaerobic Swabs 11/07/18 14:30 Gram Stain - Final Wound - Left Foot 11/06/18 19:15 Bacteria Detection (PCR) - Preliminary Blood Culture (Wb) - Anticubital Left Staphylococcus aureus Blood Culture - Preliminary Staphylococcus aureus POC Glucose 11/09/18 11/08/18 11/08/18 06:53 21:17 15:47 POC Glucose 135 H 183 H 151 H 11/08/18 11/08/18 12:57 09:22 POC Glucose 102 114 H Medical Necessity - Tobacco Use Smoking Status: Never smoker Tobacco Use: Non-smoker Assessment/Plan Osteomyelitis left 3rd toe; s/p debridement on 11/08/18 Bacteremia/sepsis, positive blood cultures Charcot neuroarthropathy left foot Diabetes with peripheral neuropathy Reviewed data. Clinically foot is stable, healing well, with no noted cellulitis, no visible abscess, no purulence, no necrosis. Continue to follow cultures. Patient is on IV antibiotics per ID service/Dr. Yuan. Repacked midfoot incision sites with gauze packing, painted betadine to stump of left 3rd toe, applied gauze, kerlix and yulissa dressing - keep clean, dry and intact. Patient to remain nonweightbearing to the left foot, and keep protected with CAM Walker. Podiatry will continue to follow.
--- NOTE | 2018-11-09 08:35 | PCM.PROGNOTE ---
Subjective: Chief complaint: Follow-up after admission for MSSA bacteremia, persistent osteomyelitis of the left third toe, Charcot neuroarthropathy of the left foot with probable osteomyelitis/abscess, status post incision and drainage. Patient seen and examined. No acute events overnight. Today, he mentioned his foot pain is manageable, improved. No spikes of fever overnight. Blood pressure still on the higher side, other vital signs are stable. - Physical Exam General: Alert, Oriented x3, Cooperative, No apparent distress HEENT: Atraumatic, PERRLA, EOMI, Normocephalic Oral: Moist Mucosa, No Gingival or Mucosal Lesions/ Ulcerations Neck: Supple, No JVD, Negative Carotid Bruits, Trachea Midline, Thyroid Normal Size and Texture Lungs: Clear to auscultation, Normal air movement, No rhonchi, No wheeze, No rales, Diminished Cardiovascular: Regular rate, Regular Rhythm, Normal S1, Normal S2, PMI Normal Abdomen: Bowel Sounds Present, Soft, Non Tender, Non-Distended, No Hepato-splenomegaly Extremities: No clubbing, No cyanosis, No edema Skin: No rashes, Ulcer/ Wound Lymphatic: No Cervical, Supraclavicular, or Inguinal Adenopathy Neurological: Cranial nerves II-XII grossly intact, Neuro grossly intact Psych/Mental Status: Normal Affect, Appropriate, Alert and oriented to time, place, person, mood and affect Vital Signs Temp Pulse Resp BP Pulse Ox 98.8 F 61 16 172/83 H 96 11/09/18 08:07 11/09/18 08:07 11/09/18 08:07 11/09/18 08:07 11/09/18 08:07 Oxygen Flow Rate (L/min) 2 Oxygen Delivery Method Room Air Weight: 212 lb 4.882 oz Body Mass Index (BMI) 28.0 Intake and Output for Last 24 Hours 11/07/18 11/08/18 11/09/18 23:59 23:59 23:59 Intake Total 1999 227 / 2822 910 / 910 Output Total 999 / 0 1375 / 1375 Balance 999 312 / -88 -465 / -465 Microbiology Past 72 Hours 11/06/18 19:15 Bacteria Detection (PCR) - Preliminary Blood Culture (Wb) - Anticubital Left Staphylococcus aureus Blood Culture - Final Staphylococcus aureus 11/08/18 Unknown Gram Stain - Final Tissue - Left Foot 11/08/18 Unknown Gram Stain - Final Tissue - Left Foot 11/08/18 Unknown Gram Stain - Final Tissue - Left Foot 11/08/18 Unknown Gram Stain - Final Tissue - Aerobic & Anaerobic Swabs 11/07/18 14:30 Gram Stain - Final Wound - Left Foot POC Glucose 11/09/18 11/08/18 11/08/18 06:53 21:17 15:47 POC Glucose 135 H 183 H 151 H 11/08/18 11/08/18 12:57 09:22 POC Glucose 102 114 H Medical Necessity - Tobacco Use Smoking Status: Never smoker Tobacco Use: Non-smoker Assessment/Plan This is a 58 years old male patient was sent to ED for evaluation after he was found to have positive blood culture that was done for fever that has been going on for 3 weeks in context of recent history of left third toe chronic ulcer with osteomyelitis status post partial amputation that was done on September 10, 2018 and was found to have MSSA bacteremia. #1 MSSA bacteremia: Attributed to left foot osteomyelitis. He is on IV cefepime and oral Flagyl. Initial blood culture revealed MSSA, repeat blood cultures pending. His vital signs are stable except slightly elevated blood pressure, no fever overnight. 2D echocardiogram revealed ejection fraction of 55%, stage III diastolic dysfunction, mild mitral stenosis, mild tricuspid insufficiency, no valve vegetations. Infectious disease on the case. Plan to continue same treatment, repeat CBC and BMP tomorrow morning. #2 recent/persistent left third toe nonhealing ulcer/osteomyelitis/osteomyelitis of the midfoot bones with surrounding abscesses: Status post incision and drainage, debridement of the left foot down to the bone with removal of the third toe. Patient is on IV cefepime and Flagyl as above. MRI done during this admission and revealed persistent osteomyelitis of the third middle phalanx, chocolate left foot with superimposed osteomyelitis of the bones of the midfoot and proximal metatarsal bones with surrounding abscesses. Podiatry medicine on the case. Plan as above. #3 mild hyponatremia/hypokalemia: Probably due to Lasix. Patient is on potassium replacement orally. Plan to repeat BMP tomorrow morning. #4 chronic iron deficiency anemia: Baseline hemoglobin is been around 8 to 10 g/dL. Patient mentioned that he received 2 units of blood transfusion the day before admission. Yesterday's hemoglobin is 8.5 g/dL. No evidence of active bleeding. Plan to repeat CBC and BMP tomorrow morning. #5 CAD status post CABG: Stable, no acute issues. Continue aspirin, statins, nitrate, lisinopril and metoprolol. #6 type 2 diabetes mellitus: Blood sugar stable, continue Lantus insulin nightly and sliding scale. #7 hypertension: Blood pressure still running in the higher side, dose of Norvasc adjusted yesterday, continue Lasix, lisinopril and metoprolol. Change IV hydralazine every 4 hours as needed. #8 paroxysmal atrial fibrillation: He is in sinus rhythm, rate is controlled. Continue metoprolol for rate control. He is not on any anti-coagulation. #9 hyperlipidemia: Continue statins. #10 DVT prophylaxis: Subcu Lovenox. This note was generated with [employer] dictation software. It may contain incorrect words, spelling, and punctuation that were not noted in checking the note before signing. Code Visit Inpatient E&M: 92665 Subs Hosp L2
[2018-11-09] MEDS: Pantoprazole Sodium 40 MG Tablet PO (09:41)
[2018-11-09] MEDS: Metoprolol Tartrate 25 MG Tablet PO ×2 (09:41→21:05)
[2018-11-09] MEDS: Aspirin E.C. 81 MG Tablet PO (09:41)
[2018-11-09] MEDS: Isosorbide Mononitrate 30 MG Tablet PO (09:41)
[2018-11-09] MEDS: Furosemide 80 MG Tablet PO ×2 (09:42→17:34)
[2018-11-09] MEDS: Enoxaparin 40 MG/0.4 ML Syringe SC (09:42)
[2018-11-09] MEDS: Lisinopril 20 MG Tablet PO ×2 (09:42→20:57)
[2018-11-09] MEDS: amLODIPine 10 MG Tablet PO (09:44)
[2018-11-09] MEDS: traMADol 50 MG Tablet PO ×2 (09:45→20:57)
[2018-11-09] MEDS: Glucerna Shake 120 ML LIQUID PO ×4 (09:47→21:08)
--- NOTE | 2018-11-09 11:00 | BON_PTH ---
PATIENT: CLAY RUBIO LOC: MS3 U#:[id number] AGE/SX: 58/M ROOM: [facility] RE11/06/[address]: Dr. Jono Guzman MD : 1960 BED: 1 DIS: 11/11/2018 SPEC #: [id number] RECD: 11/10/18 08:53 STATUS: ALEJANDRA RESharmila #: [id number] MALLY: 11/09/18 11:[address]: Ezekiel Stuart DEPT: SURGICAL PATHOLOGY RECD BY: Ayo Link ENTERED: 11/10/18 09:44 SP TYPE: Bone OTHR DR: DO Dr. Jono Andrews MD Dr. Nicholas F Kotsonis, MD Dr. Robert Leininger, MD Tissues: A - Bone of foot, NOS B - Bone of foot, NOS C - Bone of foot, NOS D - Bone of foot, NOS Procedures: Decalcification bone/plaque Surgery Specimen Level III Surgery Specimen Level IV HEADER OPERATION: Left foot I & D, debridement, biopsy, third toe amputation PRE-OP DIAGNOSIS: Osteomyelitis left third toe; bacteremia/sepsis TISSUE SUBMITTED: A - Central mid left foot, B - Lateral mid left foot, C - Amputated third toe, D - Clearance fragment third toe MICROSCOPIC DIAGNOSIS A. Central mid left foot, bone, biopsy: A piece of bone with acute and chronic osteomyelitis and reactive changes. B. Lateral mid left foot, bone, biopsy: Fragments of bone with reactive changes, negative for acute osteomyelitis. C. Third toe, amputation: Focal ulceration and acute and chronic inflammation. Underlying bone with chronic inflammation and reactive changes. Negative for acute osteomyelitis. D. Clearance fragment third toe, bone: A piece of bone with reactive changes. Negative for acute osteomyelitis. SJ:paloma 11/13/18 COMMENT Case has been reviewed in consultation with Dr. Combs who concurs with the above diagnosis. IDC:AM MICROSCOPIC DESCRIPTION Slides are reviewed. GROSS DESCRIPTION A - Received in fixative is one container labeled with the patient's name and designated central mid left foot. The specimen consists of a piece of bone measuring 1 x 0.3 x 0.2 cm. The entire specimen is submitted in one cassette after decalcification. B - Received in fixative is one container labeled with the patient's name and designated lateral mid left foot. The specimen consists of two pieces of bone that in aggregate measure 1 x 0.6 x 0.2 cm. The specimen is totally submitted in one cassette after decalcification. C - Received in fixative is one container labeled with the patient's name and designated amputated third toe. The specimen consists of a portion of toe measuring 2 x 1.8 x 1 cm. Focal area of ulceration is noted at the tip of the toe. Erector Operator sections are submitted in two cassettes as follows: 1 - area of ulceration, 2 - underlying bone. D - Received in fixative is one container labeled with the patient's name and designated clearance fragment third toe. The specimen consists of a piece of bone measuring 1 x 0.5 x 0.3 cm. The entire specimen is submitted in one cassette after decalcification. / ESTER:sp 11/10/18 TC:2 CPT: 47952 x3, 20755, 19543 x4
[2018-11-09] MEDS: Insulin Lispro 100 UNIT/ML INSULN.PEN SC ×3 (11:30→21:04)
[2018-11-09 11:46] LABS: Bedside Glucose 159 mg/dL (70-110)
[2018-11-09] MEDS: Ondansetron 4 MG/2 ML Vial IV (14:18)
[2018-11-09] MEDS: 0.9% NaCl Peripheral Flush Adult/Peds IV ×2 (14:20→20:58)
[2018-11-09 16:16] LABS: Bedside Glucose 160 mg/dL (70-110)
[2018-11-09] MEDS: proMETHazine 25 MG/ML Syringe 12.5 MG IV (17:44)
[2018-11-09] MEDS: Atorvastatin Calcium 40 MG Tablet PO (20:57)
[2018-11-09 21:26] LABS: Bedside Glucose 158 mg/dL (70-110)
[2018-11-10] VITALS (10 sets, daily range): BP systolic 133–173; BP diastolic 57–85; PULSE 60–73; RESP 16–18; TEMP 36.9–37.5; O2SAT 92–96
[2018-11-10] MEDS: oxyCODONE 5 MG Tablet PO ×5 (00:05→21:38)
[2018-11-10] MEDS: Acetaminophen 325 MG Tablet 650 MG PO ×2 (03:02→21:53)
[2018-11-10] MEDS: metroNIDAZOLE 500 MG Tablet PO ×2 (05:24→13:43)
[2018-11-10] MEDS: 0.9% NaCl Peripheral Flush Adult/Peds IV ×2 (05:24→21:39)
[2018-11-10 05:49] LABS: Absolute Lymphocyte Count 1.23 X10^3/uL (0.83-4.51); Absolute Neutrophil Count 10.4 X10^3/uL (2.0-7.7); Basophil# 0.05 X10^3/uL; Basophil% 0.4 % (0-1); Eosinophils% 2.2 % (0-5); Hematocrit 23.5 % (40-54); Hemoglobin 7.7 g/dL (13.0-16.5); Lymphocyte # 1.23 X10^3/ul (4.0); Lymphocyte % 8.9 % (19-41); Mean Corp Hgb Conc 32.8 g/dL (32-36); Mean Corpuscular Hgb 27.1 pg (27.0-32.0); Mean Corpuscular Volume 82.7 fL (80-94); Mean Platelet Vol. 10.2 fl (6.2-12.0); Monocyte# 1.68 X10^3/uL; Monocyte% 12.1 % (0-10); NRBC Flagged by Analyzer 0 % (0-5); Neutrophil # 10.44 X10^3/uL (2.7-7.7); Neutrophil % 75.1 % (47-70); POSITIVE DIFFERENTIAL YES; Platelet Count 428 K/mm3 (150-450); RBC Distribution Width CV 15.7 % (11.6-14.6); RBC Distribution Width SD 47.6 fl (35.1-43.9); Red Blood Count 2.84 M/mm3 (4.6-6.2); White Blood Count 13.9 K/mm3 (4.4-11.0)
[2018-11-10 06:02] LABS: Differential Indicated SCAN CRITERIA MET
[2018-11-10 06:15] LABS: Anion Gap 8 (5-15); BUN 20 mg/dL (7-18); BUN/Creat Ratio 18.9 RATIO (10-20); Calcium,Total 8.6 mg/dL (8.5-10.1); Chloride 96 mmol/L (98-107); Creatinine, Serum 1.06 mg/dL (0.70-1.30); EST Glomerular Filtration Rate 76 mL/min (>60); Est Glom Filt Rate - Afr Amer 92 mL/min (>60); Estimated Creatinine Clearance 83.75 ml/min; Glucose 130 mg/dL (74-106); Potassium 4.2 mmol/L (3.5-5.1); Sodium Level 133 mmol/L (136-145)
[2018-11-10 06:44] LABS: Differential Comment SCANNED; Hypochromasia 3+; Microcytosis 2+; Platelet Estimate SLT INC (ADEQ)
[2018-11-10 06:45] LABS: Bedside Glucose 132 mg/dL (70-110)
[2018-11-10] MEDS: Furosemide 80 MG Tablet PO ×2 (08:25→18:35)
[2018-11-10] MEDS: Glucerna Shake 120 ML LIQUID PO ×4 (08:25→21:41)
[2018-11-10] MEDS: Isosorbide Mononitrate 30 MG Tablet PO (08:25)
[2018-11-10] MEDS: Metoprolol Tartrate 25 MG Tablet PO ×2 (08:25→21:39)
[2018-11-10] MEDS: Aspirin E.C. 81 MG Tablet PO (08:25)
[2018-11-10] MEDS: Lisinopril 20 MG Tablet PO ×2 (08:26→21:39)
[2018-11-10] MEDS: Pantoprazole Sodium 40 MG Tablet PO (08:26)
[2018-11-10] MEDS: traMADol 50 MG Tablet PO ×2 (08:28→21:39)
[2018-11-10] MEDS: amLODIPine 10 MG Tablet PO (08:28)
--- NOTE | 2018-11-10 08:42 | PN_ITS ---
Subjective: Chief complaint: Follow-up after admission for MSSA bacteremia, persistent osteomyelitis of the left third toe, Charcot neuroarthropathy of the left foot with probable osteomyelitis/abscess, status post incision and drainage. Patient seen and examined. No acute events overnight. Left foot pain still there but manageable and started getting better. Maximum temperature overnight was 99.9 Fahrenheit, blood pressure slightly elevated, other vital signs are stable. - Physical Exam General: Alert, Oriented x3, Cooperative, No apparent distress HEENT: Atraumatic, PERRLA, EOMI, Normocephalic Oral: Moist Mucosa, No Gingival or Mucosal Lesions/ Ulcerations Neck: Supple, No JVD, Negative Carotid Bruits, Trachea Midline, Thyroid Normal Size and Texture Lungs: Clear to auscultation, Normal air movement, No rhonchi, No wheeze, No rales, Diminished Cardiovascular: Regular rate, Regular Rhythm, Normal S1, Normal S2, PMI Normal Abdomen: Bowel Sounds Present, Soft, Non Tender, Non-Distended, No Hepato- splenomegaly Extremities: No clubbing, No cyanosis, No edema Skin: No rashes, Ulcer/ Wound Lymphatic: No Cervical, Supraclavicular, or Inguinal Adenopathy Neurological: Cranial nerves II-XII grossly intact, Neuro grossly intact Psych/Mental Status: Normal Affect, Appropriate, Alert and oriented to time, place, person, mood and affect Vital Signs Temp Pulse Resp BP Pulse Ox 98.6 F 72 18 173/85 H 95 11/10/18 08:17 11/10/18 08:25 11/10/18 08:17 11/10/18 08:25 11/10/18 08:17 Oxygen Flow Rate (L/min) 2 Oxygen Delivery Method Room Air Weight: 212 lb 4.882 oz Body Mass Index (BMI) 28.0 Intake and Output for Last 24 Hours 11/08/18 11/09/18 11/10/18 23:59 23:59 23:59 Intake Total 2272 / 2822 1610 / 1610 773 / 773 Output Total 1959 / 2910 2525 / 2525 1450 / 1450 Balance 312 / -88 -915 / -915 -677 / -677 Microbiology Past 72 Hours 11/07/18 14:30 Gram Stain - Final Wound - Left Foot Wound Culture - Final Staphylococcus capitis Anaerobic Culture - Preliminary Checking for anaerobes, further studies to follow. 11/08/18 06:10 Blood Culture - Preliminary Blood Culture (Wb) - Anticubital Left No growth in 48 hours. 11/07/18 13:55 Blood Culture - Preliminary Blood Culture (Wb) - Anticubital Left No growth in 48 hours. 11/06/18 19:32 Blood Culture - Preliminary Blood Culture (Wb) - Right Forearm No growth in 48 hours. 11/08/18 Unknown Gram Stain - Final Tissue - Left Foot Wound Culture - Preliminary Gram positive organism 11/08/18 Unknown Gram Stain - Final Tissue - Aerobic & Anaerobic Swabs Wound Culture - Preliminary Mixed Gram Positive Organisms 11/08/18 Unknown Gram Stain - Final Tissue - Left Foot Wound Culture - Preliminary No growth-Final to follow 11/08/18 Unknown Gram Stain - Final Tissue - Left Foot Wound Culture - Preliminary No growth-Final to follow 11/06/18 19:15 Bacteria Detection (PCR) - Preliminary Blood Culture (Wb) - Anticubital Left Staphylococcus aureus Blood Culture - Final Staphylococcus aureus Laboratory Tests Past 24 Hrs 11/10/18 11/10/18 05:08 05:08 WBC 13.9 H RBC 2.84 L Hgb 7.7 L Hct 23.5 L MCV 82.7 MCH 27.1 MCHC 32.8 RDW Std Deviation 47.6 H RDW Coeff of Dipti 15.7 H Plt Count 428 MPV 10.2 Immature Gran % (Auto) 1.300 H Neut % (Auto) 75.1 H Lymph % (Auto) 8.9 L [place] % (Auto) 12.1 H Eos % (Auto) 2.2 Baso % (Auto) 0.4 Absolute Neuts (auto) 10.4 H Absolute Lymphs (auto) 1.23 Absolute Nucleated RBC 0.00 Nucleated RBC % 0 Differential Comment SCANNED Diff Path Review May foll Platelet Estimate SLT INC Hypochromasia 3+ Microcytosis 2+ Sodium 133 L Potassium 4.2 Chloride 96 L Carbon Dioxide 29.0 Anion Gap 8 BUN 20 H Creatinine 1.06 Estim Creat Clear Calc 83.75 Est GFR (MDRD) Af Amer 92 Est GFR (MDRD) Non-Af 76 BUN/Creatinine Ratio 18.9 Glucose 130 H Calcium 8.6 POC Glucose 11/10/18 11/09/18 11/09/18 06:38 21:01 15:54 POC Glucose 132 H 158 H 160 H 11/09/18 11:27 POC Glucose 159 H Medical Necessity - Tobacco Use Smoking Status: Never smoker Tobacco Use: Non-smoker Assessment/Plan This is a 58 years old male patient was sent to ED for evaluation after he was found to have positive blood culture that was done for fever that has been going on for 3 weeks in context of recent history of left third toe chronic ulcer with osteomyelitis status post partial amputation that was done on September 10, 2018 and was found to have MSSA bacteremia. Also, MRI done and revealed osteomyelitis of the left third middle phalanx, charcot left foot with superimposed osteomyelitis of the bones of the midfoot and proximal metatarsal bones. #1 MSSA bacteremia: Attributed to left foot osteomyelitis. Remains IV cefepime and oral Flagyl. Initial blood culture revealed MSSA, repeat blood cultures showed no growth in 48 hours. Blood pressure still slightly elevated, maximum temperature overnight was 99.9. Other vital signs are stable. 2D echocardiogram revealed ejection fraction of 55%, stage III diastolic dysfunction, mild mitral stenosis, mild tricuspid insufficiency, no valve vegetations. Infectious disease on the case. Plan to continue same treatment. #2 recent/persistent left third toe nonhealing ulcer/osteomyelitis/osteomyelitis of the midfoot bones with surrounding abscesses: Status post incision and drainage, debridement of the left foot down to the bone with removal of the third toe. Patient is on IV cefepime and Flagyl as above. Podiatry medicine on the case. #3 mild hyponatremia/hypokalemia: Probably due to Lasix. Potassium replaced and corrected. Today's sodium is 133, back to baseline. Patient does have history of chronic hyponatremia. #4 Acute on chronic iron deficiency anemia: Baseline hemoglobin is been around 8 to 10 g/dL. Today, hemoglobin is 7.7 g/dL. Patient received 2 units of blood transfusion the day before admission. This is probably due to blood loss during surgery and hemodilution. Plan to transfuse 1 unit of packed RBCs, repeat H&H tomorrow morning. #5 CAD status post CABG: Stable, no acute issues. Continue aspirin, statins, nitrate, lisinopril and metoprolol. #6 type 2 diabetes mellitus: Blood sugar stable, continue Lantus insulin nightly and sliding scale. #7 hypertension: Blood pressure still running in the higher side, dose of Norvasc adjusted yesterday, continue Lasix, lisinopril and metoprolol. IV hydralazine changed to every 4 hours PRN. #8 paroxysmal atrial fibrillation: He is in sinus rhythm, rate is controlled. Continue metoprolol for rate control. He is not on any anti-coagulation. #9 hyperlipidemia: Continue statins. #10 DVT prophylaxis: Subcu Lovenox. This note was generated with [employer] dictation software. It may contain incorrect words, spelling, and punctuation that were not noted in checking the note before signing. Code Visit Inpatient E&M: 60869 Subs Hosp L2
--- NOTE | 2018-11-10 10:16 | NURSING ---
Orders are to leave dressing to left foot D&I. Did not remove at this time.
[2018-11-10] MEDS: Enoxaparin 40 MG/0.4 ML Syringe SC (10:54)
[2018-11-10 11:10] LABS: Bedside Glucose 182 mg/dL (70-110)
[2018-11-10] MEDS: Insulin Lispro 100 UNIT/ML INSULN.PEN SC ×3 (12:19→21:46)
--- NOTE | 2018-11-10 14:21 | PCM.PN.ID ---
Subjective: Feeling better, pain and fever improved. No n/v/d. - Physical Exam General: Alert, Cooperative, No apparent distress Lungs: Clear to auscultation, Normal air movement Cardiovascular: Regular rate, Regular Rhythm Abdomen: Soft, Non Tender, Non-Distended Skin: Ulcer/ Wound - foot wrapped Vital Signs Temp Pulse Resp BP Pulse Ox 98.7 F 63 18 133/72 H 92 11/10/18 13:41 11/10/18 13:41 11/10/18 13:41 11/10/18 13:41 11/10/18 13:41 Oxygen Flow Rate (L/min) 2 Oxygen Delivery Method Room Air Weight: 96.3 kg Body Mass Index (BMI) 28.0 Intake and Output for Last 24 Hours 11/08/18 11/09/18 11/10/18 23:59 23:59 23:59 Intake Total 2272 / 2822 1610 / 1610 1613 / 1613 Output Total 1960 / 2910 2525 / 2525 1999 / 1999 Balance 312 / -88 -915 / -915 -387 / -387 Microbiology Past 72 Hours 11/08/18 Unknown Gram Stain - Final Tissue - Left Foot Wound Culture - Preliminary Coag Negative Staph Anaerobic Culture - Preliminary Checking for anaerobes, further studies to follow. 11/08/18 Unknown Gram Stain - Final Tissue - Aerobic & Anaerobic Swabs Wound Culture - Preliminary Staphylococcus aureus Anaerobic Culture - Preliminary Checking for anaerobes, further studies to follow. 11/08/18 Unknown Gram Stain - Final Tissue - Left Foot Wound Culture - Preliminary No growth-Final to follow Anaerobic Culture - Preliminary No growth in 48 hours. 11/08/18 Unknown Gram Stain - Final Tissue - Left Foot Wound Culture - Preliminary Staphylococcus aureus Anaerobic Culture - Preliminary No growth in 48 hours. 11/07/18 14:30 Gram Stain - Final Wound - Left Foot Wound Culture - Final Staphylococcus capitis Anaerobic Culture - Preliminary Checking for anaerobes, further studies to follow. 11/08/18 06:10 Blood Culture - Preliminary Blood Culture (Wb) - Anticubital Left No growth in 48 hours. 11/07/18 13:55 Blood Culture - Preliminary Blood Culture (Wb) - Anticubital Left No growth in 48 hours. 11/06/18 19:32 Blood Culture - Preliminary Blood Culture (Wb) - Right Forearm No growth in 48 hours. 11/06/18 19:15 Bacteria Detection (PCR) - Preliminary Blood Culture (Wb) - Anticubital Left Staphylococcus aureus Blood Culture - Final Staphylococcus aureus Laboratory Tests Past 24 Hrs 11/10/18 11/10/18 11/10/18 05:08 05:08 08:56 WBC 13.9 H RBC 2.84 L Hgb 7.7 L Hct 23.5 L MCV 82.7 MCH 27.1 MCHC 32.8 RDW Std Deviation 47.6 H RDW Coeff of Dipti 15.7 H Plt Count 428 MPV 10.2 Immature Gran % (Auto) 1.300 H Neut % (Auto) 75.1 H Lymph % (Auto) 8.9 L [place] % (Auto) 12.1 H Eos % (Auto) 2.2 Baso % (Auto) 0.4 Absolute Neuts (auto) 10.4 H Absolute Lymphs (auto) 1.23 Absolute Nucleated RBC 0.00 Nucleated RBC % 0 Differential Comment SCANNED Diff Path Review May foll Platelet Estimate SLT INC Hypochromasia 3+ Microcytosis 2+ Sodium 133 L Potassium 4.2 Chloride 96 L Carbon Dioxide 29.0 Anion Gap 8 BUN 20 H Creatinine 1.06 Estim Creat Clear Calc 83.75 Est GFR (MDRD) Af Amer 92 Est GFR (MDRD) Non-Af 76 BUN/Creatinine Ratio 18.9 Glucose 130 H Calcium 8.6 Blood Type A POSITIVE Antibody Screen NEGATIVE Crossmatch See Detail POC Glucose 11/10/18 11/10/18 11/09/18 10:56 06:38 21:01 POC Glucose 182 H 132 H 158 H 11/09/18 15:54 POC Glucose 160 H Medical Necessity - Tobacco Use Smoking Status: Never smoker Tobacco Use: Non-smoker Route of nutrition/ use of supplements: [] Nutritional Intake: [] IV Site: [] Zhu Catheter: [] - Assessment/Plan Antibiotics: [] Assessment/Plan: [] sepsis due to MSSA bacteremia with recent admit for mssa endocarditis and osteo - Bcx clear since 11/08. Taken to OR 11/[address] Stuart for I&D of abscess and osteo. Surg cxs with MSSA and MR-CoNS. Echo showed no veg. Will order picc. Plan for d/c home will be 6 weeks of iv cefazolin and po doxy, stop date 12/20/18, weekly bmp, cbc, and esr. ID followup with me in 2-3 weeks at wound care center. Will follow, d/w bilingual case manager and Dr. Guzman
[2018-11-10 14:30] LABS: Pathologist Review Reviewed
--- NOTE | 2018-11-10 14:40 | CASEMGMT ---
LLOYD GAO received script for IV ATB at discharge. LLOYD GAO in to discuss with patient and . Patient voiced understanding. Patient is agreeable to [facility] for IV ATB, who he had previously. Patient is current with [facility]. LLOYD GAO sent referral to [facility] and updated [facility] regarding discharge needs.
[2018-11-10 16:46] LABS: Bedside Glucose 151 mg/dL (70-110)
[2018-11-10] MEDS: Doxycycline 100 MG CAPSULE PO (21:39)
[2018-11-10] MEDS: Atorvastatin Calcium 40 MG Tablet PO (21:39)
[2018-11-10] MEDS: Cefazolin 2 GM in 0.9% Normal Saline 100 ML IV (21:41)
--- NOTE | 2018-11-10 21:43 | PN_ITS ---
Subjective: Patient was seen today for follow up left foot. He was resting in bed. Continues to have leukocytosis, currently afebrile. Patient relates he is feeling better. No complaints of chills, nausea or vomiting at this time. - Physical Exam General: Alert, Oriented x3, Cooperative, No apparent distress Extremities: - - s/p partial left 3rd toe amputation with sutures intact, viable tissue/viable flaps, s/p I+D dorsal midfoot, incision sites with viable tissue, there is some blood from the site but no purulence, no maloder, no necrosis, no fluctuance, no crepitus, no visible abscess, no cellulitis present here or to the rest of the left foot/ankle/leg. Vital Signs Temp Pulse Resp BP Pulse Ox 99.5 F H 69 16 140/57 H 96 11/10/18 20:00 11/10/18 20:00 11/10/18 20:00 11/10/18 20:00 11/10/18 20:00 Oxygen Flow Rate (L/min) 2 Oxygen Delivery Method Room Air Weight: 96.3 kg Body Mass Index (BMI) 28.0 Intake and Output for Last 24 Hours 11/08/18 11/09/18 11/10/18 23:59 23:59 23:59 Intake Total 2272 / 2822 1610 / 1610 2093 / 2093 Output Total 1960 / 2910 2525 / 2525 2700 / 2700 Balance 312 / -88 -915 / -915 -607 / -607 Microbiology Past 72 Hours 11/08/18 Unknown Gram Stain - Final Tissue - Left Foot Wound Culture - Preliminary Coag Negative Staph Anaerobic Culture - Preliminary Checking for anaerobes, further studies to follow. 11/08/18 Unknown Gram Stain - Final Tissue - Aerobic & Anaerobic Swabs Wound Culture - Preliminary Staphylococcus aureus Anaerobic Culture - Preliminary Checking for anaerobes, further studies to follow. 11/08/18 Unknown Gram Stain - Final Tissue - Left Foot Wound Culture - Preliminary No growth-Final to follow Anaerobic Culture - Preliminary No growth in 48 hours. 11/08/18 Unknown Gram Stain - Final Tissue - Left Foot Wound Culture - Preliminary Staphylococcus aureus Anaerobic Culture - Preliminary No growth in 48 hours. 11/07/18 14:30 Gram Stain - Final Wound - Left Foot Wound Culture - Final Staphylococcus capitis Anaerobic Culture - Preliminary Checking for anaerobes, further studies to follow. 11/08/18 06:10 Blood Culture - Preliminary Blood Culture (Wb) - Anticubital Left No growth in 48 hours. 11/07/18 13:55 Blood Culture - Preliminary Blood Culture (Wb) - Anticubital Left No growth in 48 hours. 11/06/18 19:32 Blood Culture - Preliminary Blood Culture (Wb) - Right Forearm No growth in 48 hours. 11/06/18 19:15 Bacteria Detection (PCR) - Preliminary Blood Culture (Wb) - Anticubital Left Staphylococcus aureus Blood Culture - Final Staphylococcus aureus Laboratory Tests Past 24 Hrs 11/10/18 11/10/18 11/10/18 05:08 05:08 08:56 WBC 13.9 H RBC 2.84 L Hgb 7.7 L Hct 23.5 L MCV 82.7 MCH 27.1 MCHC 32.8 RDW Std Deviation 47.6 H RDW Coeff of Dipti 15.7 H Plt Count 428 MPV 10.2 Immature Gran % (Auto) 1.300 H Neut % (Auto) 75.1 H Lymph % (Auto) 8.9 L [place] % (Auto) 12.1 H Eos % (Auto) 2.2 Baso % (Auto) 0.4 Absolute Neuts (auto) 10.4 H Absolute Lymphs (auto) 1.23 Absolute Nucleated RBC 0.00 Nucleated RBC % 0 Differential Comment SCANNED Diff Path Review Reviewed Platelet Estimate SLT INC Hypochromasia 3+ Microcytosis 2+ Sodium 133 L Potassium 4.2 Chloride 96 L Carbon Dioxide 29.0 Anion Gap 8 BUN 20 H Creatinine 1.06 Estim Creat Clear Calc 83.75 Est GFR (MDRD) Af Amer 92 Est GFR (MDRD) Non-Af 76 BUN/Creatinine Ratio 18.9 Glucose 130 H Calcium 8.6 Blood Type A POSITIVE Antibody Screen NEGATIVE Crossmatch See Detail POC Glucose 11/10/18 11/10/18 11/10/18 16:35 10:56 06:38 POC Glucose 151 H 182 H 132 H Medical Necessity - Tobacco Use Smoking Status: Never smoker Tobacco Use: Non-smoker Assessment/Plan Osteomyelitis left 3rd toe; s/p debridement on 11/08/18 Bacteremia/sepsis, positive blood cultures Charcot neuroarthropathy left foot Diabetes with peripheral neuropathy Reviewed data. Clinically foot is stable, healing well, with no noted cellulitis, no visible abscess, no purulence, no necrosis. Continue to follow cultures - midfoot culture + staph aureus, clearance fragment left 3rd toe w/ coag neg staph. Patient is on IV antibiotics per ID service/Dr. Yuan. Lightly repacked midfoot incision sites with gauze packing, applied gauze, kerlix and yulissa dressing - keep clean, dry and intact - change daily. Patient to remain nonweightbearing to the left foot, and keep protected with CAM Walker. Appears plan is for patient to be discharged home tomorrow. Educated patient's significant other on dressing changes, but also recommend home health nurse to change dressing when they come out to house - dressing change as noted above. Patient to follow up with Dr. Barnett within 1 week from discharge.
[2018-11-10 21:55] LABS: Bedside Glucose 230 mg/dL (70-110)
[2018-11-11 02:00] VITALS: BP 161/67; PULSE 73; RESP 16; TEMP 36.9; O2SAT 96
[2018-11-11] MEDS: oxyCODONE 5 MG Tablet PO ×3 (05:44→14:08)
[2018-11-11] MEDS: Cefazolin 2 GM in 0.9% Normal Saline 100 ML IV ×2 (05:46→13:57)
[2018-11-11 06:25] LABS: Bedside Glucose 144 mg/dL (70-110)
[2018-11-11 06:33] LABS: Hematocrit 26.4 % (40-54); Hemoglobin 8.6 g/dL (13.0-16.5)
--- NOTE | 2018-11-11 07:49 | PCM.PROGNOTE ---
Subjective: This 58-year-old male was seen bedside this morning for left third toe partial amputation secondary to persistent osteomyelitis, MSSA bacteremia, and left foot Charcot versus osteomyelitis foot. His pain is controlled and improved. He denies current fever, chills, nausea, vomiting. He is eager to work with physical therapy to improve his walking stability. - Physical Exam General: Alert, Oriented x3, Cooperative Extremities: No cyanosis, Capillary Refill Less than 3 Seconds - all digits left foot, No Calf Tenderness - negative erwin and crabtree left lower extremity, Diminished Peripheral Pulses, Edema - mild left foot Skin: Incision - Bone biopsy sites are only draining serosanguineous drainage and the partial third toe amputation site has sutures in place. The skin edges are well aligned and coapted without gapping or necrosis. There is no erythema, purulence, streaking, odor, or gross signs of infection. There is no fluctuance on palpation Musculoskeletal: No Tenderness to Palpation of Joints or Extremities, Muscle Wasting, - - Left rocker-bottom foot. Left third and second partial toe amputations Neurological: - - Lack of normal epicritic sensation is consistent with neuropathy status left foot Psych/Mental Status: Normal Affect, Appropriate Vital Signs Temp Pulse Resp BP Pulse Ox 98.4 F 73 16 161/67 H 96 11/11/18 02:00 11/11/18 02:00 11/11/18 02:00 11/11/18 02:00 11/11/18 02:00 Oxygen Flow Rate (L/min) 2 Oxygen Delivery Method Room Air Weight: 96.3 kg Body Mass Index (BMI) 28.0 Intake and Output for Last 24 Hours 11/09/18 11/10/18 11/11/18 23:59 23:59 23:59 Intake Total 1610 / 1610 2093 / 2739 746 / 746 Output Total 2525 / 2525 2700 / 3300 800 / 800 Balance -915 / -915 -607 / -561 -54 / -54 Microbiology Past 72 Hours 11/08/18 Unknown Gram Stain - Final Tissue - Left Foot Wound Culture - Preliminary Staphylococcus epidermidis Anaerobic Culture - Preliminary Checking for anaerobes, further studies to follow. 11/08/18 Unknown Gram Stain - Final Tissue - Aerobic & Anaerobic Swabs Wound Culture - Final Staphylococcus aureus Anaerobic Culture - Preliminary Checking for anaerobes, further studies to follow. 11/08/18 Unknown Gram Stain - Final Tissue - Left Foot Wound Culture - Preliminary No growth-Final to follow Anaerobic Culture - Preliminary No growth in 48 hours. 11/08/18 Unknown Gram Stain - Final Tissue - Left Foot Wound Culture - Preliminary Staphylococcus aureus Anaerobic Culture - Preliminary No growth in 48 hours. 11/07/18 14:30 Gram Stain - Final Wound - Left Foot Wound Culture - Final Staphylococcus capitis Anaerobic Culture - Preliminary Checking for anaerobes, further studies to follow. 11/08/18 06:10 Blood Culture - Preliminary Blood Culture (Wb) - Anticubital Left No growth in 48 hours. 11/07/18 13:55 Blood Culture - Preliminary Blood Culture (Wb) - Anticubital Left No growth in 48 hours. 11/06/18 19:32 Blood Culture - Preliminary Blood Culture (Wb) - Right Forearm No growth in 48 hours. 11/06/18 19:15 Bacteria Detection (PCR) - Preliminary Blood Culture (Wb) - Anticubital Left Staphylococcus aureus Blood Culture - Final Staphylococcus aureus Laboratory Tests Past 24 Hrs 11/10/18 11/10/18 11/11/18 05:08 08:56 05:40 Hgb 8.6 L Hct 26.4 L Diff Path Review Reviewed Blood Type A POSITIVE Antibody Screen NEGATIVE Crossmatch See Detail POC Glucose 11/11/18 11/10/18 11/10/18 06:17 21:45 16:35 POC Glucose 144 H 230 H 151 H 11/10/18 10:56 POC Glucose 182 H Medical Necessity - Tobacco Use Smoking Status: Never smoker Tobacco Use: Non-smoker Assessment/Plan Osteomyelitis left 3rd toe; s/p debridement on 11/08/18 Bacteremia/sepsis, positive blood cultures. repeat cultures are negative Charcot neuroarthropathy left foot Diabetes with peripheral neuropathy Reviewed data. Clinically foot is stable, healing well, with no noted cellulitis, no visible abscess, no purulence, no necrosis. His vital signs remained stable. It is noted he did have a very low-grade fever yesterday evening and he has persistent leukocytosis. Continue to follow cultures - midfoot culture no growth, clearance fragment left 3rd toe w/ coag neg staph. Pathology findings are still pending. Patient is on IV antibiotics per ID service/Dr. Yuan. He is tentatively on a plan for 6 weeks of IV cefazolin and oral doxycycline until December 20, 2018. Lightly repacked midfoot incision sites with gauze packing, applied gauze, kerlix and yulissa dressing - keep clean, dry and intact - change daily. Patient to remain nonweightbearing to the left foot, and keep protected with CAM Walker. Appears plan is for patient to be discharged home soon. Educated patient's significant other on dressing changes, but also recommend home health nurse to change dressing when they come out to house - dressing change as noted above. Patient to follow up with Dr. Barntet within 1 week from discharge. Medical management and DVT prophylaxis per primary team is greatly appreciated. Please do not hesitate to call with any questions. Jemima Barnett DPM, [facility] [phone]
--- NOTE | 2018-11-11 07:54 | DCINST_ITS ---
Weight Bearing Status: No weight bearing - left with cam walker and assistive device (crutches or walker) Keep extremity elevated above heart level: Left Leg Call your doctor if your incision/area has: Continuous Slow Oozing, Sudden Increased Bleeding, Increased Pain/ Swelling, Increased Redness, Foul Smelling Discharge, Swelling at the incision site Call your doctor if you observe: Fever of 101 or Higher, Calf discomfort, Uncontrolled pain Cleanse incision/area with: - - change every 1 - 2 days with dry gauze and kerlix Allergies/Adverse Reactions: Allergies Penicillins [PCN] Allergy (Verified 11/06/18 18:05) Unknown Medications to take at Discharge atorvastatin 80 mg tablet 40 mg PO QHS 07/24/18 glimepiride 2 mg tablet 2 mg PO DAILY tab 07/24/18 pantoprazole 40 mg tablet,delayed release 40 mg PO DAILY 07/24/18 Aspirin E.C. [Ecotrin] 81 mg PO DAILY@0800 09/09/18 Lisinopril [Zestril] 20 mg PO BID 09/09/18 amlodipine 10 mg tablet 5 mg PO DAILY tab 10/17/18 isosorbide mononitrate ER 30 mg tablet,extended release 24 hr 30 mg PO DAILY #90 tab 10/17/18 metoprolol tartrate 25 mg tablet 25 mg PO BID #180 tab 10/17/18 nitroglycerin 0.4 mg sublingual tablet 0.4 mg SUBLINGUAL Q5M PRN #25 tab 10/17/18 Cholecalciferol (Vitamin D3) [Vitamin D] 50,000 unit PO FR 11/06/18 Furosemide 80 mg PO BID 11/06/18 traMADol [Ultram (G)] 50 mg PO BID 11/06/18 Cefazolin 2 gm IV Q8 40 Days #120 vial 11/10/18 Doxycycline 100 mg PO BID 40 Days #80 cap 11/10/18 The following prescriptions were given: Cefazolin 2 gm IV Q8 40 Days #120 vial Prescription Printed Doxycycline 100 mg PO BID 40 Days #80 cap Prescription Printed Primary Care Physician: Delgado Smith [Primary Care Provider] - Test Results: Test results from this visit will be discussed in further detail at your follow- up appointment, if applicable. Please Follow Up With: Jemima Barnett DPM When: At [facility] in one week. Call [phone]. Proposed Discharge Date: 11/11/18
--- NOTE | 2018-11-11 08:26 | DCINST_ITS ---
You will use the following diet at home:: Calorie/Carbohydrate Controlled (specify 1200, 1400, etc) - 1800 jimmy., Cardiac Your food should be the consistency of: Regular Discharge Activity: Return to Normal Activity Weight Bearing Status: No weight bearing - left with cam walker and assistive device (crutches or walker) Keep extremity elevated above heart level: Left Leg Call your doctor if your incision/area has: Continuous Slow Oozing, Sudden Increased Bleeding, Increased Pain/ Swelling, Increased Redness, Foul Smelling Discharge, Swelling at the incision site Call your doctor if you observe: Fever of 101 or Higher, Shortness of breath, Dizziness, Fainting spells, Chest pain, Increased palpitations (irregular heartbeat), Calf discomfort, Uncontrolled pain Cleanse incision/area with: - - change every 1 - 2 days with dry gauze and kerlix Allergies/Adverse Reactions: Allergies Penicillins [PCN] Allergy (Verified 11/06/18 18:05) Unknown Medications to take at Discharge atorvastatin 80 mg tablet 40 mg PO QHS 07/24/18 glimepiride 2 mg tablet 2 mg PO DAILY tab 07/24/18 pantoprazole 40 mg tablet,delayed release 40 mg PO DAILY 07/24/18 Aspirin E.C. [Ecotrin] 81 mg PO DAILY@0800 09/09/18 Lisinopril [Zestril] 20 mg PO BID 09/09/18 amlodipine 10 mg tablet 5 mg PO DAILY tab 10/17/18 isosorbide mononitrate ER 30 mg tablet,extended release 24 hr 30 mg PO DAILY #90 tab 10/17/18 metoprolol tartrate 25 mg tablet 25 mg PO BID #180 tab 10/17/18 nitroglycerin 0.4 mg sublingual tablet 0.4 mg SUBLINGUAL Q5M PRN #25 tab 10/17/18 Cholecalciferol (Vitamin D3) [Vitamin D3] 50,000 unit PO FR 11/06/18 Furosemide 80 mg PO BID 11/06/18 traMADol [Ultram] 50 mg PO BID 11/06/18 Cefazolin 2 gm IV Q8 40 Days #120 vial 11/10/18 Doxycycline 100 mg PO BID 40 Days #80 cap 11/10/18 Oxycodone [Oxyir] 5 mg PO Q6H PRN PRN 5 Days #20 tab 11/11/18 The following prescriptions were given: Cefazolin 2 gm IV Q8 40 Days #120 vial Prescription Printed Doxycycline 100 mg PO BID 40 Days #80 cap Prescription Printed Oxycodone [Oxyir] 5 mg PO Q6H PRN PRN 5 Days #20 tab PRN Reason: Severe Pain (6-10/10) Prescription Printed Primary Care Physician: Delgado Smith [Primary Care Provider] - Please follow up with your Primary Care Physician in: 2 weeks. Test Results: Test results from this visit will be discussed in further detail at your follow- up appointment, if applicable. Please Follow Up With: Jemima Barnett DPM When: At [facility] in one week. Call [phone]. Proposed Discharge Date: 11/11/18
--- NOTE | 2018-11-11 09:13 | NURSING ---
Dr Barnett changed dressing this am. Pt will be going home with home health today.
[2018-11-11 09:28] VITALS: BP 155/59; PULSE 71; RESP 18; TEMP 36.9; O2SAT 95
[2018-11-11 09:34] VITALS: PULSE 71
[2018-11-11] MEDS: Enoxaparin 40 MG/0.4 ML Syringe SC (09:34)
[2018-11-11] MEDS: Metoprolol Tartrate 25 MG Tablet PO (09:34)
[2018-11-11] MEDS: Furosemide 80 MG Tablet PO (09:34)
[2018-11-11] MEDS: Pantoprazole Sodium 40 MG Tablet PO (09:34)
[2018-11-11] MEDS: Lisinopril 20 MG Tablet PO (09:34)
[2018-11-11] MEDS: amLODIPine 10 MG Tablet PO (09:34)
[2018-11-11] MEDS: Aspirin E.C. 81 MG Tablet PO (09:34)
[2018-11-11] MEDS: Doxycycline 100 MG CAPSULE PO (09:34)
[2018-11-11] MEDS: Glucerna Shake 120 ML LIQUID PO ×2 (09:35→13:58)
[2018-11-11] MEDS: Isosorbide Mononitrate 30 MG Tablet PO (09:35)
[2018-11-11] MEDS: traMADol 50 MG Tablet PO (09:37)
--- NOTE | 2018-11-11 10:00 | CASEMGMT ---
LLOYD GAO confirmed with [facility] setup for IV ATBs. Carmen at [facility] confirmed that patient is covered at 100% and that start of care is for today and next dose is due at 2200 tonight. LLOYD GAO updated [facility] of discharge today and faxed discharge instructions, clinical information, and resumption of HHC order. LLOYD GAO updated patient regarding planned discharge to home today after 1400 dose of ATB. Patient voiced understanding. CM will continue to follow this patient and plan for a safe discharge.
[2018-11-11 11:21] LABS: Bedside Glucose 213 mg/dL (70-110)
--- NOTE | 2018-11-11 11:25 | PCM.PN.ID ---
Subjective: Feeling ok, picc in place, no fever, no n/v/d. - Physical Exam General: Alert, Cooperative, No apparent distress Lungs: Clear to auscultation, Normal air movement Cardiovascular: Regular rate, Regular Rhythm Abdomen: Soft, Non Tender, Non-Distended Skin: No rashes Vital Signs Temp Pulse Resp BP Pulse Ox 98.5 F 71 18 155/59 H 95 11/11/18 09:28 11/11/18 09:34 11/11/18 09:28 11/11/18 09:28 11/11/18 09:28 Oxygen Flow Rate (L/min) 2 Oxygen Delivery Method Room Air Weight: 96.3 kg Body Mass Index (BMI) 28.0 Intake and Output for Last 24 Hours 11/09/18 11/10/18 11/11/18 23:59 23:59 23:59 Intake Total 1610 / 1610 2093 / 2739 746 / 746 Output Total 2525 / 2525 2700 / 3300 800 / 800 Balance -915 / -915 -607 / -561 -54 / -54 Microbiology Past 72 Hours 11/06/18 19:15 Bacteria Detection (PCR) - Final Blood Culture (Wb) - Anticubital Left Staphylococcus aureus Blood Culture - Final Staphylococcus aureus 11/08/18 Unknown Gram Stain - Final Tissue - Left Foot Wound Culture - Preliminary Staphylococcus aureus Anaerobic Culture - Preliminary No growth in 48 hours. 11/08/18 Unknown Gram Stain - Final Tissue - Left Foot Wound Culture - Final Staphylococcus epidermidis Anaerobic Culture - Preliminary Checking for anaerobes, further studies to follow. 11/08/18 Unknown Gram Stain - Final Tissue - Left Foot Wound Culture - Preliminary No growth-Final to follow Anaerobic Culture - Preliminary No growth in 48 hours. 11/08/18 Unknown Gram Stain - Final Tissue - Aerobic & Anaerobic Swabs Wound Culture - Final Staphylococcus aureus Anaerobic Culture - Preliminary Checking for anaerobes, further studies to follow. 11/07/18 14:30 Gram Stain - Final Wound - Left Foot Wound Culture - Final Staphylococcus capitis Anaerobic Culture - Preliminary Checking for anaerobes, further studies to follow. 11/08/18 06:10 Blood Culture - Preliminary Blood Culture (Wb) - Anticubital Left No growth in 48 hours. 11/07/18 13:55 Blood Culture - Preliminary Blood Culture (Wb) - Anticubital Left No growth in 48 hours. 11/06/18 19:32 Blood Culture - Preliminary Blood Culture (Wb) - Right Forearm No growth in 48 hours. Laboratory Tests Past 24 Hrs 11/10/18 11/10/18 11/11/18 05:08 08:56 05:40 Hgb 8.6 L Hct 26.4 L Diff Path Review Reviewed Crossmatch See Detail POC Glucose 11/11/18 11/11/18 11/10/18 11:18 06:17 21:45 POC Glucose 213 H 144 H 230 H 11/10/18 16:35 POC Glucose 151 H Medical Necessity - Tobacco Use Smoking Status: Never smoker Tobacco Use: Non-smoker Route of nutrition/ use of supplements: [] Nutritional Intake: [] IV Site: [] Zhu Catheter: [] - Assessment/Plan Antibiotics: [] Assessment/Plan: [] sepsis due to MSSA bacteremia with recent admit for mssa endocarditis and osteo - Bcx clear since 11/08. Taken to OR 11/[address] Stuart for I&D of abscess and osteo. Surg cxs with MSSA and MRSE. Echo showed no veg. Picc in place. Plan for d/c home will be 6 weeks of iv cefazolin and po doxy, stop date 12/20/18, weekly bmp, cbc, and esr. ID followup with me in 2-3 weeks at wound care center. Will follow
[2018-11-11] MEDS: Insulin Lispro 100 UNIT/ML INSULN.PEN SC (11:38)
[2018-11-11 13:59] VITALS: BP 156/74; PULSE 66; RESP 18; TEMP 36.9; O2SAT 98
--- NOTE | 2018-11-11 15:02 | DS.PCM_ITS ---
Discharge Date and Diagnosis Date of Admission: 11/06/18 Date of Discharge: 11/11/18 - Primary Discharge Diagnosis #1 MSSA bacteremia. #2 MSSA recent/persistent left third toe nonhealing ulcer/osteomyelitis/osteomyelitis of the midfoot bones with surrounding abscesses, status post incision and drainage, status post debridement and removal of the third toe. #3 mild hyponatremia/hypokalemia. #4 acute on chronic iron deficiency anemia. - Secondary Discharge Diagnosis Chronic Problems (Last Updated 11/07/18 @ 10:30 by Jono Guzman MD) 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[place] coronary artery w/angina pectoris (Chronic) CABG x 3 WALL-LAD, Free MAIK-OM, SVG-RPDA 06/12/18 Chronic diastolic (congestive) heart failure (Chronic) HLD (hyperlipidemia) (Chronic) MSSA bacteremia (Chronic) Osteomyelitis (Chronic) Sinus bradycardia (Chronic) Atherosclerosis of coronary artery without angina pectoris (Chronic) CABG x 3 WALL-LAD, Free MAIK-OM, SVG-RPDA 06/12/18 H/O coronary artery bypass surgery (Chronic 06/12/18) CABG x 3 WALL-LAD, Free MAIK-OM, SVG-RPDA 06/12/18 Essential hypertension (Chronic) Hospital Course and Treatment Imaging Results: Clinical Impression(s) from Imaging Studies Chest X-Ray 11/07/18 10:40 IMPRESSION: No acute pulmonary process Electronically Signed: Hector Mendes MD at 12:52 EDT , Service support , Lower Extremity MRI 11/07/18 13:04 IMPRESSION: 1. Osteomyelitis of the third middle phalanx. 2. Charcot foot but suspect superimposed osteomyelitis of the bones of the midfoot and the proximal metatarsal bones with surrounding abscesses. Electronically Signed: Jacobo Torrez MD at 16:52 EDT Tel , Service support , Foot X-Ray 11/07/18 15:24 IMPRESSION: Soft tissue swelling of the distal third toe without definitive evidence for acute osteomyelitis Other nonspecific bony changes involving the tarsals and metatarsals of indeterminate etiology possibly due to inflammatory changes however clinical correlation recommended. MRI would be helpful for more definitive evaluation Electronically Signed: Ezekiel Fuentes MD at 16:30 EDT , Service support , Foot X-Ray 11/08/18 10:11 IMPRESSION: Fluoroscopic guidance for surgical guidance. Electronically Signed: Dylan Garrett MD at 12:43 EDT , Service support , Foot X-Ray 11/08/18 11:30 IMPRESSION: Amputation of the third digit across the head of the third proximal phalanx. Electronically Signed: Donta Causey MD at 20:55 EDT , Service support , Consultations 11/06/18 21:40 Consult: Onc/Wound/dietetics professor Routine Comment: Reason for Consult:: left foot infection Dr. Yuan, infectious disease. Dr. Stuart/Dr. loving, podiatry medicine Operations: - - Incision, drainage and debridement of left foot down to bone with partial removal of the third toe. Procedures: 2-D Echocardiogram Summary of Care Provided: Patient seen and examined on the day of discharge and appeared to be stable to be discharged home. Left foot pain is under control. Denies any fever or chills. Other vital signs are stable. This is a 58 years old male patient was sent to ED for evaluation after he was found to have positive blood culture that was done for fever that has been going on for 3 weeks in context of recent history of left third toe chronic ulcer with osteomyelitis status post partial amputation that was done on September 10, 2018 and was found to have MSSA bacteremia. Also, MRI done and revealed osteomyelitis of the left third middle phalanx, [place] left foot with superimposed osteomyelitis of the bones of the midfoot and proximal metatarsal bones. #1 MSSA bacteremia: Attributed to left foot osteomyelitis. Initially, it was treated with IV Rocephin. Infectious disease consulted and patient was started on IV cefepime and Flagyl. Initial blood culture revealed MSSA, repeat blood cultures showed no growth in 48 hours. 2D echocardiogram revealed ejection fraction of 55%, stage III diastolic dysfunction, mild mitral stenosis, mild tricuspid insufficiency, no valve vegetations. Patient discharged home with home health on IV cefazolin and doxycycline with stop days of December 20, 2018. #2 recent/persistent left third toe nonhealing ulcer/osteomyelitis/osteomyelitis of the midfoot bones with surrounding abscesses: Status post incision and drainage, debridement of the left foot down to the bone with removal of the third toe. Again, treated with IV antibiotics as above. MRI left foot performed and confirmed with the above diagnoses. Wound culture revealed MSSA as well as the surgical specimen culture. Patient was discharged on the above- mentioned antibiotics with the above-mentioned stop date. #3 mild hyponatremia/hypokalemia: Patient does have chronic hyponatremia, sodium level returned back to his baseline, potassium was replaced and corrected. #4 Acute on chronic iron deficiency anemia: Baseline hemoglobin is been around 8 to 10 g/dL. Hemoglobin came down to 7.7 g/dL, patient received 1 unit of packed RBCs. Upon discharge, hemoglobin was 8.6 g/dL. There was no evidence of active bleeding. #5 CAD status post CABG: Continued on aspirin, statins, nitrate, lisinopril and metoprolol. #6 type 2 diabetes mellitus: Blood sugar stable, continued on glimepiride upon discharge. Patient discharged home with home health on IV cefazolin and oral doxycycline, completion date is December 20, 2018, discharged on OxyIR as needed for pain, maintained on his previous home medications without any changes, plan to follow- up with infectious disease in 2 to 3 weeks, follow-up with podiatry medicine in 1 week and recommended follow-up with PCP in 2 weeks. This note was generated with [employer] dictation software. It may contain incorrect words, spelling, and punctuation that were not noted in checking the note before signing. - Physical Exam General: Alert, Oriented x3, Cooperative, No apparent distress HEENT: Atraumatic, PERRLA, EOMI, Normocephalic Oral: Moist Mucosa, No Gingival or Mucosal Lesions/ Ulcerations Neck: Supple, No JVD, Negative Carotid Bruits, Trachea Midline, Thyroid Normal Size and Texture Lungs: Clear to auscultation, Normal air movement, No rhonchi, No wheeze, No rales, Diminished Cardiovascular: Regular rate, Regular Rhythm, Normal S1, Normal S2, PMI Normal Abdomen: Bowel Sounds Present, Soft, Non Tender, Non-Distended, No Hepato- splenomegaly Extremities: No clubbing, No cyanosis, No edema Skin: No rashes, Ulcer/ Wound Lymphatic: No Cervical, Supraclavicular, or Inguinal Adenopathy Neurological: Cranial nerves II-XII grossly intact, Neuro grossly intact Psych/Mental Status: Normal Affect, Appropriate Vital Signs Temp Pulse Resp BP Pulse Ox 98.4 F 66 18 156/74 H 98 11/11/18 13:59 11/11/18 13:59 11/11/18 13:59 11/11/18 13:59 11/11/18 13:59 Oxygen Flow Rate (L/min) 2 Oxygen Delivery Method Room Air Weight: 212 lb 4.882 oz Body Mass Index (BMI) 28.0 Intake and Output for Last 24 Hours 11/09/18 11/10/18 11/11/18 23:59 23:59 23:59 Intake Total 1610 / 1610 2093 / 2739 1546 / 1546 Output Total 2525 / 2525 2700 / 3300 1450 / 1450 Balance -915 / -915 -607 / -561 96 / 96 Microbiology Past 72 Hours 11/08/18 Unknown Gram Stain - Final Tissue - Left Foot Wound Culture - Final Staphylococcus epidermidis Anaerobic Culture - Preliminary Checking for anaerobes, further studies to follow. 11/06/18 19:15 Bacteria Detection (PCR) - Final Blood Culture (Wb) - Anticubital Left Staphylococcus aureus Blood Culture - Final Staphylococcus aureus 11/08/18 Unknown Gram Stain - Final Tissue - Left Foot Wound Culture - Preliminary Staphylococcus aureus Anaerobic Culture - Preliminary No growth in 48 hours. 11/08/18 Unknown Gram Stain - Final Tissue - Left Foot Wound Culture - Preliminary No growth-Final to follow Anaerobic Culture - Preliminary No growth in 48 hours. 11/08/18 Unknown Gram Stain - Final Tissue - Aerobic & Anaerobic Swabs Wound Culture - Final Staphylococcus aureus Anaerobic Culture - Preliminary Checking for anaerobes, further studies to follow. 11/07/18 14:30 Gram Stain - Final Wound - Left Foot Wound Culture - Final Staphylococcus capitis Anaerobic Culture - Preliminary Checking for anaerobes, further studies to follow. 11/08/18 06:10 Blood Culture - Preliminary Blood Culture (Wb) - Anticubital Left No growth in 48 hours. 11/07/18 13:55 Blood Culture - Preliminary Blood Culture (Wb) - Anticubital Left No growth in 48 hours. 11/06/18 19:32 Blood Culture - Preliminary Blood Culture (Wb) - Right Forearm No growth in 48 hours. Laboratory Tests Past 24 Hrs 11/11/18 05:40 Hgb 8.6 L Hct 26.4 L POC Glucose 11/11/18 11/11/18 11/10/18 11:18 06:17 21:45 POC Glucose 213 H 144 H 230 H 11/10/18 16:35 POC Glucose 151 H Discharge Activity: Return to Normal Activity Weight Bearing Status: No weight bearing - left with cam walker and assistive device (crutches or walker) Keep extremity elevated above heart level: Left Leg Call your doctor if your incision/area has: Continuous Slow Oozing, Sudden I ncreased Bleeding, Increased Pain/ Swelling, Increased Redness, Foul Smelling Discharge, Swelling at the incision site Call your doctor if you observe: Fever of 101 or Higher, Shortness of breath, Dizziness, Fainting spells, Chest pain, Increased palpitations (irregular heartbeat), Calf discomfort, Uncontrolled pain Cleanse incision/area with: - - change every 1 - 2 days with dry gauze and kerlix Home Medications: Medications to take at Discharge atorvastatin 80 mg tablet 40 mg PO QHS 07/24/18 glimepiride 2 mg tablet 2 mg PO DAILY tab 07/24/18 pantoprazole 40 mg tablet,delayed release 40 mg PO DAILY 07/24/18 Aspirin E.C. [Ecotrin] 81 mg PO DAILY@0800 09/09/18 Lisinopril [Zestril] 20 mg PO BID 09/09/18 amlodipine 10 mg tablet 5 mg PO DAILY tab 10/17/18 isosorbide mononitrate ER 30 mg tablet,extended release 24 hr 30 mg PO DAILY #90 tab 10/17/18 metoprolol tartrate 25 mg tablet 25 mg PO BID #180 tab 10/17/18 nitroglycerin 0.4 mg sublingual tablet 0.4 mg SUBLINGUAL Q5M PRN #25 tab 10/17/18 Cholecalciferol (Vitamin D3) [Vitamin D3] 50,000 unit PO FR 11/06/18 Furosemide 80 mg PO BID 11/06/18 traMADol [Ultram] 50 mg PO BID 11/06/18 Cefazolin 2 gm IV Q8 40 Days #120 vial 11/10/18 Doxycycline 100 mg PO BID 40 Days #80 cap 11/10/18 Oxycodone [Oxyir] 5 mg PO Q6H PRN PRN 5 Days #20 tab 11/11/18 Following Prescrptions Were Given to Patient: Cefazolin 2 gm IV Q8 40 Days #120 vial Prescription Printed Doxycycline 100 mg PO BID 40 Days #80 cap Prescription Printed Oxycodone [Oxyir] 5 mg PO Q6H PRN PRN 5 Days #20 tab PRN Reason: Severe Pain (6-01/22) Prescription Printed Primary Care Physician: Delgado Smith [Primary Care Provider] - Please follow up with your Primary Care Physician in: 2 weeks. Please Follow Up With: Jemima Loving DPM When: [facility] in one week. Call [phone]. Please Follow Up With: Delgado Smith When: 2 weeks Disposition: Home with Home Health Minutes spent on discharge:: 34 Patient Condition:: Stable Medical Necessity - Tobacco Use Smoking Status: Never smoker Tobacco Use: Non-smoker Meaningful Use Info Meaningful Use Diagnoses (Choose all that apply): None applicable Code Visit Inpatient E&M: 41872 Disch Hosp
--- NOTE | 2018-11-12 15:17 | CASEMGMT ---
Addendum entered by Mendez Pina 11/12/18 15:23: LLOYD GAO placed call to [facility] and spoke with Veda. She states nurse will be going out to pt's home this evening and that they will be calling pt shortly to inform him of this. Original Note: LLOYD GAO Discharge Follow-Up Phone Call. Lace: 15 Strata: 4 Discharge Date: 11/11/18 Adm Dx: Bacteremia. Call to pt to inquire about how he has been doing since being discharged from the hospital. Pt states not too bad. Pt states the antibiotics arrived yesterday and that his has been administering them as scheduled/ordered and that they have not had any difficulty/concerns with IV administration, as she has done them in the past. He states [facility] has not been out to see him yet but that he placed a call to [facility] requesting someone to come change his dressing. He states he does not have any questions re: discharge instructions, medications, or appts. LLOYD GAO thanked pt for choosing [facility] Cindi HAM RN, CM
== END 2018-11-11 15:49 | disposition home health service (06) | DRG 314 ==
LOC: ED 19:27 → MS3 21:40
PROVIDERS: Podiatrist; Admitting Provider Family Medicine; Emergency Provider Emergency Medicine; Family Provider Family Medicine; PCP Family Medicine; Referring Provider Family Medicine; Visit Provider Hospitalist
PROC: 0Y6U0Z1 Detachment at Left 3rd Toe, High, Open Approach (ICD-10-PCS; principal; 2018-11-08 11:00)
DX: E11.69 Type 2 diabetes mellitus with other specified complication (principal); M86.8X7 Other osteomyelitis, ankle and foot; L02.612 Cutaneous abscess of left foot; I11.0 Hypertensive heart disease with heart failure; R78.81 Bacteremia; B95.61 Methicillin susceptible Staphylococcus aureus infection as the cause of diseases classified elsewhere; I25.10 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of native coronary artery without angina pectoris; L97.529 Non-pressure chronic ulcer of other part of left foot with unspecified severity; I50.32 Chronic diastolic (congestive) heart failure; K21.9 Gastro-esophageal reflux disease without esophagitis; E87.6 Hypokalemia; E87.1 Hypo-osmolality and hyponatremia; D50.9 Iron deficiency anemia, unspecified; E78.5 Hyperlipidemia, unspecified; E11.42 Type 2 diabetes mellitus with diabetic polyneuropathy; E11.610 Type 2 diabetes mellitus with diabetic neuropathic arthropathy; E11.319 Type 2 diabetes mellitus with unspecified diabetic retinopathy without macular edema; Z95.1 Presence of aortocoronary bypass graft; Z89.422 Acquired absence of other left toe(s); Z79.84 Long term (current) use of oral hypoglycemic drugs
CPT/HCPCS: 36415; 36569; 71045; 73630; 73720; 76000; 80048; 81001; 82962; 85014; 85018; 85025; 86850; 86900; 86920; 86922; 87015; 87040; 87070; 87075; 87077; 87102; 87116; 87149; 87176; 87186; 87205; 87206; 88304; 88305; 88311; 93005; 93306; 97162; 97166; 97802; 99284; A9575; J7040; J7050; P9016; A4216; J2405

== ENCOUNTER 2019-01-05 09:17 | Outpatient (RCR) | payer MEDICAID, SELFPAY ==
[2018-09-21 21:57] VITALS: BMI 30.3
[2018-11-08 09:17] VITALS: BMI 28.0
== END 2019-01-12 23:59 ==
LOC: DC 09:17
PROVIDERS: Family Provider Family Medicine; PCP Family Medicine; Visit Provider Internal Medicine Cardiovascular Disease
DX: E11.9 Type 2 diabetes mellitus without complications (principal); E66.9 Obesity, unspecified; Z71.3 Dietary counseling and surveillance
CPT/HCPCS: 97803

== ENCOUNTER → 2019-01-28 | Outpatient (CLI) | payer MEDICAID, SELFPAY ==
[2019-01-16 08:52] VITALS: BMI 26.2
--- NOTE | 2019-01-28 10:03 | ART_ITS ---
Reason For Study: PVD/Lt toe ulcer Procedure A bilateral lower extremity continuous wave Doppler with analog waveform analysis,segmental pressures,and ankle brachial indexes without exercise. Left Segmental Pressures Left brachial= 164mmHg. Left posterior tibial artery = >254mmHg. Left dorsalis pedis artery = >254mmHg. Left digit = 51 mmHg. The left dorsalis pedis waveforms are biphasic. The left posterior tibial artery waveforms are biphasic. Right Segmental Pressures Right brachial= 180mmHg. Right posterior tibial artery = >254mmHg. Right dorsalis pedis artery = >254mmHg. Right digit = 141 mmHg. The right dorsalis pedis waveforms are triphasic. The right posterior tibial artery waveforms are triphasic. Indices The right ankle brachial index by the dorsalis pedis is NC. The right ankle brachial index by the posterior tibial artery is NC. The right digital-brachial index is 0.78. The left ankle brachial index by the dorsalis pedis is NC. The left ankle brachial index by the posterior tibial artery is NC. The left digital-brachial index is 0.28. Interpretation Summary Triphasic Doppler waveforms are noted at ankle level on the right. Biphasic Doppler waveforms are noted at ankle level on the left. Pulse-volume recordings appear satisfactory at low-thigh, calf, ankle, and digital level bilaterally. Ankle-brachial indices could not be determined on either side due to the non-compressibility of the vasculature. The right digital-brachial index is normal. The left digital-brachial index is severely diminished. There is evidence of arterial calcification at ankle level bilaterally. Arterial flow at ankle and digital level on the right appear normal. Due to arterial calcification, arterial flow at ankle level on the left is difficult to determine, though it appears as though arterial flow at digital level on the left is severely diminished. Ordering Physician: Jemima Barnett Referring Physician: Delgado Smith Performed By: Willinger, Mirta, RVT
== END | disposition home or self-care (01) ==
LOC: CVS 10:01
PROVIDERS: Family Provider Family Medicine; PCP Family Medicine; Referring Provider Podiatrist; Visit Provider Podiatrist
DX: I73.9 Peripheral vascular disease, unspecified (principal); L97.529 Non-pressure chronic ulcer of other part of left foot with unspecified severity
CPT/HCPCS: 93923

== ENCOUNTER → 2019-02-02 | Outpatient (CLI) | payer MEDICAID, SELFPAY ==
[2018-10-17 09:29] VITALS: BMI 29.5
[2019-01-16 08:52] VITALS: BMI 26.2
--- NOTE | 2019-02-02 12:51 | VDLE_ITS ---
Reason For Study: PVD RIGHT LEFT CFV is compressible, spontaneous, phasic, CFV is compressible, spontaneous, phasic, competent and demonstrates normal competent, and demonstrates normal augmentation. augmentation. FV is compressible, spontaneous, phasic, FV is compressible, spontaneous, phasic, competent and demonstrates normal competent and demonstrates normal augmentation. augmentation. POP V is compressible, spontaneous, phasic, POP V is compressible, spontaneous, phasic, competent and demonstrates normal competent and demonstrates normal augmentation. augmentation. T/P Trunk is compressible. T/P Trunk is compressible. PTV is compressible. PTV is compressible. RT PerV is compressible. LT PerV is compressible. SFJ is competent and measures 0.49 x 0.56 cm. SFJ is competent and measures 0.70 x 0.75 cm. GSV proximal thigh measures 0.41 x 0.42 cm. GSV proximal thigh measures 0.34 x 0.34 cm. GSV at knee measures 0.50 x 0.53 cm. GSV at knee measures 0.27 x 0.28 cm. GSV INCOMPETENT throughout for greater than GSV is competent throughout. 0.5 seconds. SSV at junction is competent and measures SSV at junction is competent and measures 0.13 x 0.15 cm. 0.26 x 0.27 cm. Procedure Exam performed in department. Interpretation Summary Deep veins of the lower extremities are bilaterally patent and compressible segmentally. There is no evidence of deep vein thrombosis on either side. Valvular competence appears intact within the proximal deep venous systems bilaterally. The great saphenous veins appear bilaterally patent and compressible segmentally. Sapheno-femoral junctions are bilaterally competent . The right great saphenous vein appears segmentally incompetent. The left great saphenous vein appears segmentally competent. Small saphenous veins are patent and competent bilaterally. Ordering Physician: Jemima Barnett Referring Physician: Delgado Smith Performed By: Mirta Easton RVT
== END | disposition home or self-care (01) ==
LOC: CVS 12:50
PROVIDERS: Family Provider Family Medicine; PCP Family Medicine; Referring Provider Podiatrist; Visit Provider Podiatrist
DX: I73.9 Peripheral vascular disease, unspecified (principal); I87.2 Venous insufficiency (chronic) (peripheral); R60.0 Localized edema
CPT/HCPCS: 93970

== ENCOUNTER 2019-02-11 10:47 | Emergency (ER) | payer MEDICAID, SELFPAY ==
[2019-01-16 08:52] VITALS: BMI 26.2
[2019-02-11 10:48] VITALS: BP 119/94; PULSE 54; RESP 17; TEMP 36.8; O2SAT 98; BMI 25.2
--- NOTE | 2019-02-11 11:03 | CT_ITS ---
STUDY: CT ABDOMEN AND PELVIS WITHOUT CONTRAST REASON FOR EXAM: Male, 58 years old. RADIATION DOSAGE (If Supplied By Facility): CTDIvol = ( 8.79 ) mGy, DLP = ( 463.30 ) mGycm TECHNIQUE: Transaxial images were obtained from the dome of the diaphragm to the symphysis pubis without oral contrast, and without intravenous contrast. Sagittal and coronal images were reconstructed. Individualized dose optimization techniques were used for this CT. COMPARISON: 09/09/2018. FINDINGS: The visualized lung bases are unremarkable. Extensive coronary artery calcifications are noted. Normal liver. There are surgical clips in the gallbladder fossa consistent with a prior cholecystectomy. Normal spleen. Normal pancreas. Normal bilateral adrenal glands. Normal right kidney. Normal left kidney. No evidence for obstructing stones or hydronephrosis. It is difficult to exclude small nonobstructing stones bilaterally due to the extensive vascular calcifications. Normal visualized stomach. Normal small intestine. Normal colon. The appendix is visualized and appears normal. There is diffuse atherosclerotic calcification of the abdominal aorta and all major arteries, without a demonstrated aneurysm. Normal inferior vena cava. Normal retroperitoneum. Normal urinary bladder. Normal visualized prostate gland. Normal abdominal wall. Since the examination of September 09, 2018 there has been interval sclerosis of endplate destruction at the T10-T11 vertebral bodies. CT/Abdomen/Pelvis without Cont IMPRESSION: Since the examination of September 09, 2018 there has been interval sclerosis of endplate destruction at the T10-T11 vertebral bodies. Correlate clinically to exclude an acute process at this location and consider thoracic spinal MRI for further evaluation. Otherwise no acute intra-abdominal process is identified. Incidental findings as above. Electronically Signed: Castro Appiah, at 12:40 EDT Tel , Service support ,
--- NOTE | 2019-02-11 11:06 | ED.DCSUM_ITS ---
- ER Visit Summary Date of Service: 02/11/19 Chief Complaint: Right flank pain History of Present Illness: The patient is a 58 M who presents with right flank pain that has been constant for the past 2 weeks but became worse over the past 2 days. Patient describes the pain is sharp. Patient states pain is over the right flank area. Patient states nothing makes it better or worse. Patient denies any dysuria or hematuria. Patient denies any nausea or vomiting. Patient denies any fevers but admits to subjective chills. Physical Examination: Vital signs are stable. Patient is afebrile. Patient is in no acute distress. Oral mucosa is pink and moist. Neck is supple. Trachea is midline. There is no JVD noted. Heart was regular rate and rhythm. Lungs are clear and equal bilaterally. Abdomen is soft. There is some mild right upper quadrant and right CVA tenderness. There is no rebound or guarding noted. Cranial nerves II through XII are intact. There are no focal motor or sensory deficits noted. Test Results: CBC shows a slight leukocytosis of 13.5. There is a mild anemia with a hemoglobin of 11.3 and hematocrit 34.6. Basic metabolic profile showed a slightly increased creatinine of 1.39 and BUN of 26. Urinalysis does not show any evidence of urinary tract infection. CT scan of the abdomen pelvis was obtained. There is some arthritic changes at T10 and T11 vertebral bodies. There is no acute intra-abdominal process. Emergency Department Course and Treatment: Patient was given a dose of morphine and Zofran here. Patient was feeling better on reevaluation. Patient was given a prescription for a short course of [place]. Patient was instructed to follow-up with his primary care physician in 3 to 5 days. Patient understood and was agreeable with the plan. All questions were answered. Disposition: Discharge home Impression: Right flank pain This note was generated with [employer] dictation software. It may contain incorrect words, spelling, and punctuation that were not noted in review of the chart prior to signing ED Disposition - Plan for ED Patient: Disposition: Home or Assisted Living Diagnosis: Right flank pain Instructions: FLANK PAIN, Uncertain Cause Prescriptions: Hydrocodone Bitart/Apap 5-325 [[place] 5MG-325MG] 1 tab PO Q6H PRN PRN 3 Days #10 tab PRN Reason: Pain Prescription Printed Referrals: Delgado Smith [Primary Care Provider] - 3-5 Days
[2019-02-11] MEDS: Morphine 4 MG/ML Syringe IV (11:29)
[2019-02-11] MEDS: Ondansetron 4 MG/2 ML Vial IV (11:29)
[2019-02-11] MEDS: 0.9% Normal Saline 1,000 ML 250 ML IV (11:29)
[2019-02-11 11:30] LABS: Absolute Lymphocyte Count 1.62 X10^3/uL (0.83-4.51); Absolute Neutrophil Count 9.8 X10^3/uL (2.0-7.7); Basophil# 0.09 X10^3/uL; Basophil% 0.7 % (0-1); Eosinophil# 0.36 X10^3/uL; Eosinophils% 2.7 % (0-5); Hematocrit 34.6 % (40-54); Hemoglobin 11.3 g/dL (13.0-16.5); Lymphocyte # 1.62 X10^3/ul (4.0); Mean Corp Hgb Conc 32.7 g/dL (32-36); Mean Corpuscular Volume 85.9 fL (80-94); Monocyte# 1.38 X10^3/uL; Monocyte% 10.2 % (0-10); NRBC Flagged by Analyzer 0 % (0-5); Neutrophil # 9.83 X10^3/uL (2.7-7.7); Neutrophil % 72.8 % (47-70); Platelet Count 427 K/mm3 (150-450); RBC Distribution Width CV 15.3 % (11.6-14.6); RBC Distribution Width SD 47.8 fl (35.1-43.9); Red Blood Count 4.03 M/mm3 (4.6-6.2); White Blood Count 13.5 K/mm3 (4.4-11.0)
[2019-02-11 11:44] LABS: Anion Gap 8 (5-15); BUN 26 mg/dL (7-18); BUN/Creat Ratio 18.7 RATIO (10-20); Calcium,Total 9.6 mg/dL (8.5-10.1); Chloride 98 mmol/L (98-107); Creatinine, Serum 1.39 mg/dL (0.70-1.30); EST Glomerular Filtration Rate 55 mL/min (>60); Est Glom Filt Rate - Afr Amer 67 mL/min (>60); Estimated Creatinine Clearance 63.87 ml/min; Glucose 173 mg/dL (74-106); Sodium Level 135 mmol/L (136-145)
[2019-02-11 13:01] LABS: Mucous, Urine 0 SEEN /hpf (<or=2+)
[2019-02-11 13:06] LABS: Color, Urine Yellow (Yellow); Glucose, Dipstick Normal (Normal); Ketone-Dipstick Negative (Negative); Leukocyte Esterase-Dipstick 25 /ul (Negative); Nitrite-Dipstick Negative (Negative); Occult Blood-Urine 25 /ul (Negative); Protein-Dipstick 500 mg/dl (Negative); Specific Gravity, Urine 1.015 (1.002-1.030); Urine Bilirubin Dipstick Negative (Negative); Urine Clarity Sl. Cloudy (Clear); Urine Urobilinogen Normal (Normal)
[2019-02-11 13:13] LABS: Bacteria 1+ /hpf (None Seen); Red Blood Cells-Urine 0-5 SEEN /hpf (0-5); Squamous Epithelial Cells - UA 0-5 SEEN /hpf (0-5); White Blood Cells 0-5 SEEN /hpf (0-5)
[2019-02-11 14:04] VITALS: BP 132/77; PULSE 62; RESP 15; O2SAT 98
== END 2019-02-11 14:14 | disposition home or self-care (01) ==
PROVIDERS: Emergency Provider Emergency Medicine; Family Provider Family Medicine; PCP Family Medicine
DX: R10.11 Right upper quadrant pain (principal); I25.10 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of native coronary artery without angina pectoris; I50.9 Heart failure, unspecified
CPT/HCPCS: 74176; 80048; 81001; 85025; 96361; 96374; 96375; 99284; J7030; J2405

== ENCOUNTER → 2019-02-18 | Outpatient (CLI) | payer MEDICAID, SELFPAY ==
[2019-02-11 10:48] VITALS: BMI 25.2
--- NOTE | 2019-02-18 11:10 | MRI_ITS ---
We are attempting to reach an attending provider to discuss findings. An addendum with communication details will be sent when the communication is complete. STUDY: MRI THORACIC SPINE WITHOUT CONTRAST REASON FOR EXAM: Male, 58 years old. Low back pain for 3 weeks. TECHNIQUE: Standardized fat and water weighted pulse sequences were obtained in the sagittal and axial planes. COMPARISON: CT scan dated February 11, 2019. FINDINGS: Abnormal T1/T2 signal throughout the T10 and T11 vertebral bodies with acute endplate destruction. Prevertebral soft tissue swelling extending from the T9-T12 levels (sagittal image 6) with suspected small contained collection (axial image 17 series 7 and sagittal image 11 series 6). Epidural collection extending from the T10-T11 levels measuring 3.4 cm x 0.7 cm x 1.9 cm (sagittal image 6 series 6 and axial image 16 series 7). Moderate central canal narrowing at the T10-11 level. Subtle abnormal cord signal at the T10-11 level (axial image series 7 and sagittal image 10 series 11). Neuroforamina narrowing at the T9-10, T10-11 and T11-12 levels. Thoracic kyphosis relatively preserved. No significant scoliosis. Multilevel Schmorl's nodes. Multilevel mild endplate spondylosis. No spondylolisthesis. No additional regions of significant central canal or neural foraminal narrowing. No acute fracture. No acute dislocation. Small bilateral pleural effusions (axial image 25 series 7). Right renal cyst. Minimal paraspinal muscle edema at the T9-T12 levels. MRI/Spine Thoracic (Routine) IMPRESSION: Acute T10-11 bone destruction with intervertebral disc fluid favoring acute osteomyelitis Prevertebral and epidural collections most compatible with abscess formation Moderate central canal narrowing at the T10-11 level with focal subtle abnormal T2 cord signal Neural foraminal narrowing at the T9-10, T10-11 and T11-12 levels Mild thoracic spine osteoarthritis Surgical consultation, WBC, ESR/CRP and blood cultures recommended Electronically Signed: Khalif Britt DO at 13:05 EST Tel , Service support ,
[2019-02-18 11:40] LABS: Anion Gap 10 (5-15); BUN 29 mg/dL (7-18); Chloride 95 mmol/L (98-107); Creatinine, Serum 1.38 mg/dL (0.70-1.30); EST Glomerular Filtration Rate 56 mL/min (>60); Est Glom Filt Rate - Afr Amer 68 mL/min (>60); Glucose 180 mg/dL (74-106); Potassium 3.7 mmol/L (3.5-5.1); Sodium Level 133 mmol/L (136-145)
--- NOTE | 2019-02-18 12:54 | US_ITS ---
STUDY: RENAL ULTRASOUND - COMPLETE REASON FOR EXAM: Male, 58 years old. Nephrotic syndrome. TECHNIQUE: Ultrasound evaluation of the kidneys was performed with real-time and static bo-scale imaging. COMPARISON: Prior renal ultrasound of May 19, 2018 and abdomen and pelvic CT exam of February 11, 2019 FINDINGS: RIGHT KIDNEY: Normal location of the right kidney, which is normal in size. The right kidney measures 14.2 x 5.2 x 6.7 cm. There is a normal cortex of the right kidney. The renal cortex measures 1.6 cm. There is no right renal mass or cyst. There are no right renal calculi. There is no right hydronephrosis. DISTAL RIGHT URETER: There is non-visualization of the distal right ureter. There is a visualized right ureteral jet. LEFT KIDNEY: Normal location of the left kidney, which is normal in size. The left kidney measures 13.8 x 5.7 x 7.2 cm. There is a normal cortex of the left kidney. The renal cortex measures 2.2 cm. There is no left renal mass or cyst. There are no left renal calculi. There is no left hydronephrosis. DISTAL LEFT URETER: There is non-visualization of the distal left ureter. There is a visualized left ureteral jet. BLADDER: The nondistended urinary bladder has a volume of 107 ml. The empty urinary bladder has a volume of 91 ml. There is a normal wall thickness of the distended urinary bladder. There is no demonstrated mass within the urinary bladder. There are no demonstrated bladder calculi. US/Kidney and Bladder IMPRESSION: Kidneys are symmetric in size and upper limits of normal in size without hydronephrosis, masses are demonstrated stones. The nondistended urinary volume at the time of the exam was 107 mm with a post void residual of 91 mL. Electronically Signed: Madai Rucker MD at 18:03 EST , Service support ,
== END | disposition home or self-care (01) ==
LOC: US 10:42
PROVIDERS: Family Provider Family Medicine; PCP Family Medicine; Referring Provider Internal Medicine Nephrology; Visit Provider Internal Medicine Nephrology
DX: N04.9 Nephrotic syndrome with unspecified morphologic changes (principal); M54.6 Pain in thoracic spine; R50.9 Fever, unspecified; I10 Essential (primary) hypertension
CPT/HCPCS: 36415; 72146; 76770; 80048; 87015; 87040; 87077; 87116; 87186; 87206

== ENCOUNTER 2019-04-01 06:35 | Day surgery (SDC) | payer MEDICAID, SELFPAY ==
[2019-03-31 08:16] VITALS: BMI 25.2
[2019-04-01 06:58] LABS: Hematocrit 27.1 % (40-54); Hemoglobin 8.6 g/dL (13.0-16.5); Mean Corp Hgb Conc 31.7 g/dL (32-36); Mean Corpuscular Hgb 27.6 pg (27.0-32.0); Mean Corpuscular Volume 86.9 fL (80-94); Mean Platelet Vol. 9.9 fl (6.2-12.0); Platelet Count 318 K/mm3 (150-450); RBC Distribution Width SD 46.4 fl (35.1-43.9); Red Blood Count 3.12 M/mm3 (4.6-6.2); White Blood Count 9.2 K/mm3 (4.4-11.0)
[2019-04-01 07:10] LABS: Albumin, Serum 3.2 g/dL (3.2-5.0); BUN 24 mg/dL (7-18); BUN/Creat Ratio 16.2 RATIO (10-20); Calcium,Total 8.9 mg/dL (8.5-10.1); Chloride 99 mmol/L (98-107); Creatinine, Serum 1.48 mg/dL (0.70-1.30); EST Glomerular Filtration Rate 51 mL/min (>60); Est Glom Filt Rate - Afr Amer 62 mL/min (>60); Estimated Creatinine Clearance 59.98 ml/min; Glucose 127 mg/dL (74-106); Phosphorus 3.9 mg/dL (2.5-4.9); Potassium 4.3 mmol/L (3.5-5.1); Sodium Level 134 mmol/L (136-145)
--- NOTE | 2019-04-01 11:33 | PCM.OPRPT ---
Problem List (1) PAD (peripheral artery disease) Status: Acute Report of Operation Date of Procedure: 04/01/19 Pre-Operative Diagnosis: Slow healing ulcerations with PAD Post-Operative Diagnosis: The same Surgery/Procedure Performed:: 1. Ultrasound-guided access retrograde right common femoral artery. 2. Left lower extremity angiogram with catheter placed into the peroneal artery. 3. Balloon angioplasty the peroneal artery with a 1.5-2mm x 210mm balloon angioplasty. Balloon the proximal peroneal with a 2.5 x 120 mm balloon. 4. Closure with Star close Type of Anesthesia:: Sedation,Conscious Description of Procedure: Patient brought to the operating room. Prepped and draped in a sterile fashion after undergoing the appropriate timeout consent. He underwent sedation. We did ultrasound-guided access retrograde right common femoral artery. We got up and over the bifurcation and placed the catheter to the left external iliac artery. We gave 5000 units of heparin. We did an angiogram that showed the left common femoral artery, profunda, femoral artery were widely patent. Put the catheter down to the popliteal artery and imaged from there. Popliteal was widely patent. We then imaged below the knee and this showed the anterior tibial artery was patent all the way into the dorsalis pedis with flow through the foot. Peroneal artery had a severe stenosis proximally and in the mid to distal segment. Posterior tibial artery was occluded distally with some collateral around this. It appeared the peroneal was more of the collaterals filling the plantars. We brought in a longer 6 [place] sheath and then got the wire through the area of the stenosis. We first try to bring in a 2.5 x 300 balloon but could not get it to cross the occlusion. We then balloon through this segment with a of 1 to 2 mm balloon for over 2 minutes. We still could not get the larger balloon to bring in so we then just balloon that proximal segment with a 2.5 x 120 balloon. This was for over 3-minute inflation. Completion was markedly improved with much better flow through the entire peroneal artery with brisk flow filling the plantar vessels. We then removed out the sheath put a shorter sheath and deployed a Star close with good hemostasis. Did have some bleeding held manual pressure and tolerated this well. No hematoma. Sedation: This 58-year-old gentleman underwent moderate sedation given by Dr. Nick Mandel. He was moderate EKG blood pressure and pulse ox for over the 30 minutes of the procedure. See the EMR for the complete record.
== END 2019-04-01 15:10 | disposition home or self-care (01) ==
LOC: CLSP 06:36
PROVIDERS: Family Provider Family Medicine; PCP Family Medicine; Referring Provider Surgery Vascular Surgery; Visit Provider Surgery Vascular Surgery
DX: E11.51 Type 2 diabetes mellitus with diabetic peripheral angiopathy without gangrene (principal); I70.245 Atherosclerosis of native arteries of left leg with ulceration of other part of foot; L97.929 Non-pressure chronic ulcer of unspecified part of left lower leg with unspecified severity; I77.1 Stricture of artery; I11.9 Hypertensive heart disease without heart failure; E78.00 Pure hypercholesterolemia, unspecified; D64.9 Anemia, unspecified; J45.909 Unspecified asthma, uncomplicated; M19.90 Unspecified osteoarthritis, unspecified site; K21.9 Gastro-esophageal reflux disease without esophagitis; Z79.84 Long term (current) use of oral hypoglycemic drugs; Z79.82 Long term (current) use of aspirin; Z79.899 Other long term (current) drug therapy; Z85.828 Personal history of other malignant neoplasm of skin; Z95.1 Presence of aortocoronary bypass graft
CPT/HCPCS: 36415; 37228; 76937; 80069; 85027; 99152; 99153; J7040; Q9967; C1725; C1760; C1769; C1887; C1894

== ENCOUNTER 2019-08-08 14:25 | Inpatient (IN) | payer MEDICAID, SELFPAY ==
[2019-03-31 08:16] VITALS: BMI 25.2
[2019-08-08] VITALS (11 sets, daily range): BP systolic 102–162; BP diastolic 59–90; PULSE 48–68; RESP 13–20; TEMP 36.8–38.4; O2SAT 92–97; BMI 26.3
--- NOTE | 2019-08-08 15:01 | EKG12_ITS ---
Test Reason : Blood Pressure : / mmHG Vent. Rate : 050 BPM Atrial Rate : 050 BPM P-R Int : 182 ms QRS Dur : 096 ms QT Int : 506 ms P-R-T Axes : 051 058 081 degrees QTc Int : 461 ms Sinus bradycardia Nonspecific ST abnormality Poor R wave progression Abnormal ECG Confirmed by THALIA GILLILAND, GUSTAVO ([id number]), associate entertainment editor MACIEL FOLEY ([id number]) on 08/10/2019 10:03:07 AM Referred By: SONA Confirmed By:GUSTAVO VÁSQUEZ MD
--- NOTE | 2019-08-08 15:02 | ED.DCSUM_ITS ---
- ER Visit Summary Date of Service: 08/08/19 Chief Complaint: Fever with nonproductive cough History of Present Illness: The patient is a 59 M history of diabetes, CAD, triple bypass, Charcot joint with prior partial amputations to his second and third toe of his left foot. Known history of peripheral arterial disease on Plavix. Patient states he developed a fever last night. States has had a nonproductive cough. Denies being short of breath. No dysuria. No abdominal pain. No nausea, vomiting or diarrhea. Physical Examination: Older male no acute distress vital signs stable afebrile. Current temperature 98.2. Pulse ox 96% on room air no hypoxia. H EENT exam unremarkable. Moist with membranes. Neck nontender no lymphadenopathy. Lungs clear to auscultation bilaterally. Heart regular rhythm no murmur. Abdomen soft nontender normal bowel sounds no peritoneal signs. Patient is moving all 4 extremities. His left foot as partial imitation of the second and third toes. Currently there is no cellulitis. He is able to move both upper and lower extremities. Back prior thoracic spine surgery. Well-healed. No redness or warmth. No tenderness. No bruising. He is neurologically is awake and alert. Moving all 4 extremities. Test Results: Chest x-ray shows chronic changes. Status post sternotomy with sternal wires. Prior thoracic spine hardware. But no acute abnormalities read by myself and the radiologist. EKG sinus bradycardia rate of 50. CBC shows elevated white count of 19.7. Hemoglobin 9.5 which is his baseline chronic anemia. No bands. Chemistries show sodium 131. Potassium 3.4. Chronic renal insufficiency of 1.48 which again is baseline. Liver enzymes are slightly elevated. Lactic acid elevated 2.9. UA normal. Repeat exam patient is doing well at 1705 p.m. Emergency Department Course and Treatment: 59-year-old male with fever and nonproductive cough beginning last night. Denies anyone at home being ill. He does not look septic or toxic. This appears to be a respiratory infection. Rule out pneumonia. COVID is definitely a possibility. He has had no known exposure. He has had no recent hospitalizations. No a sepsis work-up. Treatment Plan: Given the patient's white count, fever at home and cough I will be admitted for possible pneumonia. Started on Zithromax and Rocephin. I discussed this with the hospitalist. Disposition: Admit Impression: Acute fever Acute severe sepsis Rule out COVID History of diabetes History of peripheral arterial disease with left foot Charcot joint. History of CAD with triple bypass This note was generated with [employer] dictation software. It may contain incorrect words, spelling, and punctuation that were not noted in review of the chart prio r to signing ED Disposition - Plan for ED Patient: Referrals: Delgado Smith [Primary Care Provider] -
[2019-08-08 15:43] LABS: Absolute Lymphocyte Count 0.77 X10^3/uL (0.83-4.51); Absolute Neutrophil Count 16.5 X10^3/uL (2.0-7.7); Basophil# 0.05 X10^3/uL; Basophil% 0.3 % (0-1); Eosinophil# 0.02 X10^3/uL; Eosinophils% 0.1 % (0-5); Hematocrit 29.4 % (40-54); Hemoglobin 9.5 g/dL (13.0-16.5); Lymphocyte # 0.77 X10^3/ul (4.0); Lymphocyte % 3.9 % (19-41); Mean Corp Hgb Conc 32.3 g/dL (32-36); Mean Corpuscular Hgb 27.7 pg (27.0-32.0); Mean Corpuscular Volume 85.7 fL (80-94); Monocyte# 2.19 X10^3/uL; Monocyte% 11.1 % (0-10); NRBC Flagged by Analyzer 0 % (0-5); Neutrophil % 83.8 % (47-70); POSITIVE DIFFERENTIAL YES; Platelet Count 173 K/mm3 (150-450); RBC Distribution Width CV 15.8 % (11.6-14.6); RBC Distribution Width SD 48.9 fl (35.1-43.9); Red Blood Count 3.43 M/mm3 (4.6-6.2); White Blood Count 19.7 K/mm3 (4.4-11.0)
[2019-08-08 15:44] LABS: Differential Indicated SCAN CRITERIA MET
--- NOTE | 2019-08-08 15:55 | RAD_ITS ---
STUDY: X-RAY CHEST REASON FOR EXAM: Male, 59 years old. eye procedure yesterday, today has fever 101.9, cough TECHNIQUE: Single frontal view of the chest. COMPARISON: November 07, 2018 FINDINGS: Sternotomy wires and new lower thoracic hardware are noted. The lungs are clear and expanded. There is no demonstrated pleural abnormality. Normal size heart. Normal mediastinum and sg. Normal visualized pulmonary arteries. Normal visualized aortic arch and descending thoracic aorta. Normal visualized thoracic spine. Normal visualized ribs, clavicles, and shoulders. There is no demonstrated abnormality of the visualized soft tissue structures of the upper abdomen. RAD/Chest 1 View (Portable) IMPRESSION: Normal x-ray examination of the chest. Electronically Signed: Shiva Red MD at 16:36 EDT , Service support ,
[2019-08-08 15:56] LABS: ALB/GLOB Ratio 0.8 RATIO (0.9-2.4); AST(SGOT) 18 U/L (15-37); Alanine Aminotransfer ALT/SGPT 16 U/L (16-61); Albumin, Serum 2.8 g/dL (3.2-5.0); Alkaline Phosphatase 133 U/L (45-117); Anion Gap 11 (5-15); BUN 23 mg/dL (7-18); BUN/Creat Ratio 15.5 RATIO (10-20); Calcium,Total 8.2 mg/dL (8.5-10.1); Chloride 98 mmol/L (98-107); Creatinine, Serum 1.48 mg/dL (0.70-1.30); EST Glomerular Filtration Rate 51 mL/min (>60); Est Glom Filt Rate - Afr Amer 62 mL/min (>60); Estimated Creatinine Clearance 59.24 ml/min; Globulin 3.7 g/dL (2.2-4.2); Glucose 154 mg/dL (74-106); Potassium 3.4 mmol/L (3.5-5.1); Protein, Total 6.5 g/dL (6.4-8.2); Sodium Level 131 mmol/L (136-145)
[2019-08-08 16:21] LABS: International Normalized Ratio 1.4; Partial Thromboplast Time 44.3 Seconds (24.1-36.2); Prothrombin Time (Protime)PT. 16.7 SECONDS (11.7-14.9)
[2019-08-08 16:23] LABS: Lactic Acid 2.9 mmol/L (0.4-1.9)
[2019-08-08 16:29] LABS: Differential Comment SCANNED
[2019-08-08 16:39] LABS: White Blood Cells 0 SEEN /hpf (0-5)
[2019-08-08 16:51] LABS: Color, Urine Yellow (Yellow); Glucose, Dipstick 50 mg/dl (Normal); Ketone-Dipstick Negative (Negative); Leukocyte Esterase-Dipstick Negative /ul (Negative); Nitrite-Dipstick Negative (Negative); Occult Blood-Urine 50 /ul (Negative); Protein-Dipstick 500 mg/dl (Negative); Specific Gravity, Urine 1.015 (1.002-1.030); Urine Bilirubin Dipstick Negative (Negative); Urine Clarity Sl. Cloudy (Clear); Urine Urobilinogen 1 mg/dl (Normal)
[2019-08-08 16:58] LABS: Bacteria 2+ /hpf (None Seen); Mucous, Urine RARE /hpf (<or=2+); Red Blood Cells-Urine 0-5 SEEN /hpf (0-5); Squamous Epithelial Cells - UA 0-5 SEEN /hpf (0-5)
--- NOTE | 2019-08-08 17:03 | HP.PCM_ITS ---
Problem List (1) Severe sepsis Status: Acute (2) Suspected 2019 novel coronavirus infection Status: Acute (3) Hypokalemia Status: Acute (4) Diabetes mellitus, type II Status: Chronic Qualifiers: Diabetes mellitus intermediate accountant insulin use: without mcc use Diabetes mellitus complication status: with other specified complication Qualified Code(s): E11.69 - Type 2 diabetes mellitus with other specified complication (5) PAD (peripheral artery disease) Status: Chronic (6) 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[place] coronary artery w/angina pectoris Status: Chronic Qualifiers: [place] vs. transplanted heart: unspecified whether [place] or transplanted heart Qualified Code(s): I25.119 - 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of [place] coronary artery with unspecified angina pectoris Comment: CABG x 3 WALL-LAD, Free MAIK-OM, SVG-RPDA 06/12/18 (7) Chronic diastolic (congestive) heart failure Status: Chronic (8) HLD (hyperlipidemia) Status: Chronic Qualifiers: Hyperlipidemia type: unspecified Qualified Code(s): E78.5 - Hyperlipidemia, unspecified (9) Osteomyelitis Status: Resolved Qualifiers: Osteomyelitis type: unspecified type Osteomyelitis location: unspecified site Qualified Code(s): M86.9 - Osteomyelitis, unspecified (10) Sinus bradycardia Status: Chronic (11) H/O coronary artery bypass surgery Status: Chronic Comment: CABG x 3 WALL-LAD, Free MAIK-OM, SVG-RPDA 06/12/18 (12) Essential hypertension Status: Chronic History of Present Illness Date of Admission: 08/08/19 Chief Complaint: Dyspnea, myalgia, fever The patient is a 59 y/o M w/ PMHx: Depression, CKD stage III, CAD s/p CABG x 3, Diabetes mellitus type II, HTN, HLD, Charcot joint s/p prior amputations L foot, PAD, GERD, Diastolic CHF, Fe Deficiency Anemia, 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 ED on 08/08/19 with history of onset of fever, dry cough and dyspnea noting fever up to 101.9 with body aches especially in his lumbar spine prompting ED presentation. He notes he does have a history of prior lumbar osteomyelitis. Work-up in the ED included T 98.2, heart rate 55, BP 102/65, respiratory rate 16, 96% on room air, CBC with WBC 19.7, hemoglobin 9.5, platelet 173 with left shift with concurrent lymphopenia, CMP with sodium 131, potassium 3.4, BUN/creatinine 23/1.48, glucose 154, total bilirubin 2, alk phos 133, blood culture x2 pending per ED, coags with PT 16.7, INR 1.4, PTT 44.3, LA 2.9, CXR w/ no acute cardiopulmonary findings, UA pending, UCx pending per ED. In the ED patient administered rocephin and azithromcyin given COVID suspicion. Past Medical History Past Medical History (Chronic Problems): Chronic Problems (Last Reviewed 01/16/19 @ 09:[address] Fredo Rodriguez MD) PAD (peripheral artery disease) (Chronic) Diabetes mellitus, type II (Chronic) 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[place] coronary artery w/angina pectoris (Chronic) CABG x 3 WALL-LAD, Free MAIK-OM, SVG-RPDA 06/12/18 Chronic diastolic (congestive) heart failure (Chronic) HLD (hyperlipidemia) (Chronic) MSSA bacteremia (Chronic) Sinus bradycardia (Chronic) Atherosclerosis of coronary artery without angina pectoris (Chronic) CABG x 3 WALL-LAD, Free MAIK-OM, SVG-RPDA 06/12/18 H/O coronary artery bypass surgery (Chronic 06/12/18) CABG x 3 WALL-LAD, Free MAIK-OM, SVG-RPDA 06/12/18 Essential hypertension (Chronic) Medical History: Medical History (Last Reviewed 01/16/19 @ 09:[address] Fredo Rodriguez MD) 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[place] coronary artery w/angina pectoris (Chronic) I25.119 CABG x 3 WALL-LAD, Free MAIK-OM, SVG-RPDA 06/12/18 Chronic diastolic (congestive) heart failure (Chronic) I50.32 HLD (hyperlipidemia) (Chronic) E78.5 MSSA bacteremia (Chronic) R78.81 Osteomyelitis (Resolved) M86.9 Sinus bradycardia (Chronic) R00.1 Atherosclerosis of coronary artery without angina pectoris (Chronic) I25.10 CABG x 3 WALL-LAD, Free MAIK-OM, SVG-RPDA 06/12/18 Essential hypertension (Chronic) I10 Cataracts, both eyes H26.9 Chronic ulcer of left foot with fat layer exposed L97.522 Diabetic retinopathy E11.319 GERD (gastroesophageal reflux disease) K21.9 Hammer toe of left foot M20.42 Iron deficiency anemia D50.9 Normocytic anemia D64.9 Obesity (BMI 30.0-34.9) E66.9 Type 2 diabetes mellitus E11.9 Diastolic dysfunction with acute on chronic heart failure I50.33 Postoperative atrial fibrillation (Inactive) Onset Date: 06/12/18 I97.89, I48.91 Allergies Penicillins [PCN] Allergy (Verified 08/08/19 14:26) Unknown Home Medications: Ambulatory Orders Medication Instructions Recorded atorvastatin 80 mg tablet 40 mg PO QHS 07/24/18 pantoprazole 40 mg tablet,delayed 40 mg PO DAILY 07/24/18 release Aspirin E.C. [Ecotrin] 81 mg PO DAILY 09/09/18 Lisinopril [Zestril] 20 mg PO BID 09/09/18 isosorbide mononitrate 30 mg 30 mg PO DAILY #90 tab 10/17/18 tablet,extended release 24 hr metoprolol tartrate 25 mg tablet 25 mg PO BID #180 tab 10/17/18 nitroglycerin 0.4 mg sublingual 0.4 mg SUBLINGUAL Q5M PRN #25 tab 10/17/18 tablet amlodipine 10 mg tablet 10 mg PO DAILY #90 tab 01/16/19 furosemide 40 mg tablet 60 mg PO DAILY tab 01/16/19 glimepiride 2 mg tablet 2 mg PO .qod tab 01/16/19 multivitamin 1 tab PO DAILY 01/16/19 Clopidogrel Bisulfate [Plavix] 75 mg PO DAILY 08/08/19 Gabapentin [Neurontin] 100 mg PO TID 08/08/19 Surgical History: Surgical History (Last Reviewed 01/16/19 @ 09:[address] Fredo Rodriguez MD) H/O coronary artery bypass surgery (Chronic) Onset Date: 06/12/18 Z95.1 CABG x 3 WALL-LAD, Free MAIK-OM, SVG-RPDA 06/12/18 Amputated toe of left foot Onset Date: 08/2018 S98.132A History of left heart catheterization Onset Date: 05/20/18 Z98.890 Hx of cholecystectomy Z90.49 S/P meniscectomy Z98.890 Surgical History: cataract, cholecystectomy, coronary bypass surgery, total knee arthroplasty, - - Prior and recent toe partial amputation, skin cancer face resection, Winter 2018 Thoracic spinal surgery for osteomyelitis. Psychiatric History: Depression Lives: Spouse/ Significant Other Smoking Status: Never smoker Tobacco Use: Non-smoker Alcohol: Occasional Drugs: None - *Family History Maternal Family History: Family History (Last Reviewed 01/16/19 @ 09:[address] Fredo Rodriguez MD) Mother Diabetes History Items: Diabetes Paternal Family History: Family History (Last Reviewed 01/16/19 @ 09:[address] Fredo Rodriguez MD) Mother Diabetes History Items: Unknown - Patient does not know his paternal family history. Review of Systems Constitutional: Reports: Anorexia, Chills, Fever, Malaise, Weakness, Fatigue. Denies: Weight Change HEENT: Reports: Post Nasal Drip, Sinus Congestion, Sinus Drainage. Denies: Head Aches, Sore Throat Cardiovascular: Denies: Chest Pain, Palpitations Respiratory: Reports: Cough, Shortness of Breath, Shortness of breath at rest, Shortness of breath upon exertion. Denies: Sputum production, Wheezing Gastrointestinal: Denies: Abdominal Pain, Nausea, Vomiting Genitourinary: Denies: Dysuria Musculoskeletal: Reports: Back Pain, Joint Pain, Muscle pain. Denies: Joint Tenderness Skin: Denies: Rash, Wounds Neurological: Denies: Numbness, Tingling, Focal weakness Psychiatric: Reports: Depression. Denies: Anxiety, Homicidal Ideations, Suicidal Ideations Hematologic/ Lymphatic: Reports: Anemia, Easy Bruising, Easy Bleeding VTE Information - Inpt Only VTE Present on Admission: No VTE Mechan Device Prophylaxis: SCD's VTE Pharm Prophylaxis ordered?: Yes Patient Problems: Active and Suspected Problems (Last Reviewed 01/16/19 @ 09:[address] Fredo Rodriguez MD) Severe sepsis (Acute) Suspected 2019 novel coronavirus infection (Acute) Hypokalemia (Acute) Subjective: Patient laying in the ED bed, fatigued and ill-appearing, chills evident. Objective: Physical Examination: General: awake, alert, oriented x 3 and cooperative, seated upright in the ED bed, fatigued and ill-appearing, chills evident. Skin: normal color, turgor, no icterus, cyanosis, left foot status post second and third toe amputations, well-healed thoracic spine incision with no erythema. HEENT: AT/NC, EOMI, PERRLA, dry MM, no carotid bruits or JVD noted. Lungs: Diminished breath sounds throughout, greater bases, moderate effort, no obvious distress, no rales, ronchi or wheezing. Heart: Bradycardic with regular rhythm; no gallop, rub audible. Abdomen: soft, NTTP, ND, normal BS, no HSM. Extremities: no cyanosis, clubbing, or edema, no specific focal spinal tenderness. Neurological: patient awake, alert, oriented x 3; cognitive function appears baseline intact; pupils equally reactive to light and accomodation; cranial nerves II-XII grossly normal, moving all 4 extremities although limited active complaints of back discomfort, no focal deficits, strength moderately to severely global decrease secondary to acute presentation. Psychiatric: affect appears fatigued, ill, no acute evidence of depressive or anxiety feelings. - Physical Exam Vitals/I&O's: Vital Signs Temp Pulse Resp BP Pulse Ox 98.8 F 51 L 13 140/64 H 96 08/08/19 16:04 08/08/19 16:04 08/08/19 16:04 08/08/19 16:04 08/08/19 16:04 Oxygen Delivery Method Room Air Weight: 199 lb 6.4 oz Body Mass Index (BMI) 26.3 Laboratory Results 08/08/19 15:31: WBC 19.7 H, RBC 3.43 L, Hgb 9.5 L, Hct 29.4 L, MCV 85.7, MCH 27.7, MCHC 32.3, RDW Std Deviation 48.9 H, RDW Coeff of Dipti 15.8 H, Plt Count 173, MPV 10.0, Immature Gran % (Auto) 0.800, Neut % (Auto) 83.8 H, Lymph % (Auto) 3.9 L, [place] % (Auto) 11.1 H, Eos % (Auto) 0.1, Baso % (Auto) 0.3, Absolute Neuts (auto) 16.5 H, Absolute Lymphs (auto) 0.77 L, Nucleated RBC % 0, Differential Comment SCANNED, Diff Path Review August08/08/19 15:31: PT 16.7 H, INR 1.4, APTT 44.3 H 04/25/20 15:31: Sodium 131 L, Potassium 3.4 L, Chloride 98, Carbon Dioxide 22.0, Anion Gap 11, BUN 23 H, Creatinine 1.48 H, Estim Creat Clear Calc 59.24, Est GFR (MDRD) Af Amer 62, Est GFR (MDRD) Non-Af 51 L, BUN/Creatinine Ratio 15.5, Glucose 154 H, Calcium 8.2 L, Total Bilirubin 2.00 H, AST 18, ALT 16, Alkaline Phosphatase 133 H, Total Protein 6.5, Albumin 2.8 L, Globulin 3.7, Albumin/Globulin Ratio 0.8 L 08/08/19 15:31: Lactic Acid 2.9 H* 08/08/19 16:30: Urine Color Yellow, Urine Clarity Sl. Cloudy, Urine pH 5.0, Ur Specific [place] 1.015, Urine Protein 500 H, Urine Glucose (UA) 50 H, Urine Ketones Negative, Urine Occult Blood 50 H, Urine Nitrite Negative, Urine Bilirubin Negative, Urine Urobilinogen 1 H, Ur Leukocyte Esterase Negative, Urine RBC 0-5 SEEN, Urine WBC 0 SEEN, Ur Squamous Epith Cells 0-5 SEEN, Urine Bacteria 2+, Urine Mucus RARE Assessment/Plan All Active Problems (Last Reviewed 01/16/19 @ 09:[address] Fredo Rodriguez MD) Severe sepsis (Acute) Suspected 2018 novel coronavirus infection (Acute) Hypokalemia (Acute) Neuropathy (Acute) Ulcer of left foot (Acute) Charcot's joint, left ankle and foot (Acute) Infection of left foot (Acute) Osteomyelitis (Resolved) The patient is a 59 y/o M w/ PMHx: Depression, CKD stage III, CAD s/p CABG x 3, Diabetes mellitus type II, HTN, HLD, Charcot joint s/p prior amputations L foot, PAD, GERD, Diastolic CHF, Fe Deficiency Anemia, 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 ED on 08/08/19 with history of onset of fever, dry cough and dyspnea noting fever up to 101.9 with body aches especially in his lumbar spine. 1. Acute Severe Sepsis secondary to Acute Dyspnea, Cough, Fever with Bilateral Pneumonia secondary to CAP versus Acute Viral Syndrome, COVID-19: Will admit to the COVID unit on telemetry, will maintain on oxygen with wean as tolerated to room air, continue ATC duoneb, PRN albuterol, maintain on IV Rocephin and Azithromycin, HOB, IS parameters w/ pending sputum cultures, respiratory viral panel and urine antigens, will obtain D-dimer, procalcitonin, CRP, CPK, Ferritin, LDH, cycle cardiac enzymes, request COVID testing, continue supportive care including q 2 hour turning including prone given no prone bed availability and judicious hydration, closely monitor for worsening status for ARDS and multiorgan failure. If patient worsens with need for oxygen >6 L would plan intubation with ICU physician continued care. If this work-up is unfruitful given patient lumbar spine surgery and history of previous osteomyelitis of the thoracic spine may necessitate back imaging. Bld cx x 2 obtained in the ED. 2. Hypokalemia: Admission K+ 3.4, magnesium level requested, upper mentation administered, repeat CMP in AM. 3. Chronic Hyponatremia: Admission Na 131, chronically appears 123-133, stable, trend CMP, judiciously hydrating given acute presentation as noted #1. 4. Chronic Kidney Disease Stage III: Admission BUN/Cr 23/1.48, baseline renal function 1.3-1.4, stable, repeat CMP in AM. 5. Chronic anemia, iron deficiency new: Admission hemoglobin 9.5, baseline appears 8-9, stable, trend. 6. Diabetes mellitus type II: Hold oral home regimen, ADA diet, accu checks w/ ISS. 7. CAD: Status post CABG x3, continue aspirin, Plavix, statin, metoprolol, lisinopril regimen. 8. PAD: We will continue on aspirin, Plavix, statin, hypertensive regimen and diabetic regimen as noted. 9. Hypertension: Continue home regimen including amlodipine, Lasix, isosorbide, lisinopril, metoprolol with hold parameters, PRN hydralazine. 10. Hyperlipidemia: Continue home statin regimen. 11. Depression: Noted history, not on regimen, encourage continued outpatient follow-up in addition of regimen if necessary. 12. DVT prophylaxis: SCDs, heparin with pending d-dimer and transition to therapeutic regimen if elevated pending COVID lab. 13. 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 Encouraged him following his discharge to work with his to have these items set up and noted that case fitter/social workers could help him here. Discussed CODE status at length including difference between FULL code, DNR-CCA and DNR-CC status. Following discussions about the differences in these status, requested Full Code. Advanced Care Planning Face to Face Time: 16 minutes. Inpatient E&M: 29493 Init Hosp L3 Procedures: 89613 Advncd Care Plan 30 Min
[2019-08-08] MEDS: Ceftriaxone 1 GM/50 ML BAG IV (17:32)
[2019-08-08 18:54] LABS: Procalcitonin 0.15 ng/mL (0.00-0.09)
[2019-08-08 18:55] LABS: D-Dimer Quantitative (DVT/PE) 1.84 FEU/ug/m (0.27-0.49)
[2019-08-08] MEDS: Ondansetron 4 MG/2 ML Vial IV (18:56)
[2019-08-08 18:57] LABS: Ferritin 183 ng/mL (26-388); LDH 269 U/L (87-241); Magnesium 1.1 mg/dL (1.6-2.6)
[2019-08-08] MEDS: oxyCODONE 5 MG Tablet PO ×2 (18:57→23:24)
[2019-08-08] MEDS: 0.9% Normal Saline 1,000 ML 100 ML IV (18:57)
[2019-08-08] MEDS: Acetaminophen 325 MG Tablet 650 MG PO (18:57)
[2019-08-08 19:37] LABS: Reflex Lactate? Y
[2019-08-08] MEDS: Enoxaparin 100 MG/ML Syringe 90 MG SC (19:47)
[2019-08-08] MEDS: Ipratropium/Albuterol Sulfate 3 ML AMPUL.NEB INHALATION (19:50)
[2019-08-08 20:13] LABS: Lactic Acid 1.1 mmol/L (0.4-1.9)
[2019-08-08] MEDS: Ceftriaxone 1 GM/50 mL Premix x1 IV (21:30)
[2019-08-08] MEDS: 0.9% Saline Lock 10 ML Syringe IV (21:31)
[2019-08-08] MEDS: Lisinopril 20 MG Tablet PO (21:32)
[2019-08-08] MEDS: Atorvastatin Calcium 40 MG Tablet PO (21:32)
[2019-08-08] MEDS: Metoprolol Tartrate 25 MG Tablet PO (21:32)
[2019-08-08 21:50] LABS: Bedside Glucose 144 mg/dL (70-110)
[2019-08-09] VITALS (19 sets, daily range): BP systolic 135–175; BP diastolic 69–93; PULSE 61–76; RESP 16–18; TEMP 37.4–39; O2SAT 85–93
[2019-08-09] MEDS: Magnesium Sulfate 4gm/100mL 4 GM/100 ML IV.SOLN. IV (00:36)
[2019-08-09] MEDS: hydrALAZINE 20 MG/ML Vial 10 MG IV ×3 (00:50→23:18)
[2019-08-09] MEDS: 0.9% Saline Lock 10 ML Syringe IV ×3 (00:50→23:19)
[2019-08-09] MEDS: Acetaminophen 325 MG Tablet 650 MG PO ×4 (00:57→22:16)
[2019-08-09] MEDS: 0.9% Normal Saline 1,000 ML 100 ML IV (05:52)
--- NOTE | 2019-08-09 05:55 | RAD_ITS ---
STUDY: X-RAY CHEST REASON FOR EXAM: Male, 59 years old. DYSPNEA and amp; COUGH TECHNIQUE: AP portable COMPARISON: 08/08/2019. FINDINGS: Status post median sternotomy and posterior thoracic spinal fixation. Stable enlargement of the cardiac silhouette. The lungs demonstrate vascular congestion without focal consolidative changes. There is no demonstrated abnormality of the visualized soft tissue structures of the upper abdomen. RAD/Chest 1 View (Portable) IMPRESSION: Stable chest with central vascular congestion. No focal lung consolidative changes or significant interval change. Electronically Signed: Satish Chowdary, at 7:59 EDT Tel , Service support ,
[2019-08-09] MEDS: oxyCODONE 5 MG Tablet PO ×4 (06:44→22:16)
[2019-08-09] MEDS: Enoxaparin 100 MG/ML Syringe 90 MG SC ×2 (06:45→17:24)
--- NOTE | 2019-08-09 07:05 | PN_ITS ---
Patient Problems: Active and Suspected Problems (Last Reviewed 01/16/19 @ 09:[address] 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 Admitted to the COVID unit on telemetry, maintained on oxygen with wean as tolerated to room air, PRN albuterol, initially maintained on IV Rocephin and Azithromycin-->08/09/19 given Bld Cx x 2 with GPC clusters and concern for spinal osteomyelitis transitioned to Vanc and Meropenem given PCN allergy, HOB, IS parameters w/ requested sputum cultures, negative respiratory viral panel, requested urine antigens, D-dimer 1.84 with therapeutic lovenox initiated, ferritin 183, LDH 269, CRP 139, troponin less than 0.015?3, lactic acid initially 2.9 with repeat 1.1, requested COVID testing, 08/09/19 repeat AM CXR w/ mild central vascular congestion otherwise no focal lung consolidation. Lasix 40 mg IV x 1 administered 08/09/19. MRI lumbar spine and thoracic spine ordered STAT. If remarkable findings will need to transfer to [facility]. Admission K+ 3.4, magnesium level 1.1 with 4 gm IV administered, 08/09/19 Mag 2.2, K 4.1, improved. Admission Na 131, chronically appears 123-133, judiciously hydrated given presentation; however, mild congestion on repeat AM film with 92% on RA, lasix 40 mg x 1 administered, holding further IVFs. Patient overnight with increase of hypoxia and ongoing mild cough but notes feeling improved since initial presentation. He notes ongoing mild lumbar discomfort to his back but improved since initial presentation and no focal spinal specific pain region. Patient does report remain intermittently febrile. Discussed current blood cultures which included gram-positive cocci in clusters in 2 of 2 bottles with concern for possible etiology recurrent osteomyelitis to spine and patient is amenable to MRI. Discussed that he could have recurrent osteomyelitis of the spine in addition to possible COVID even his exposure history. Discussed that if there was any concern for osteomyelitis recurrent in the spine he would be transferred back to [facility] and he notes that he is amenable to this if necessary. Patient denies chills, nausea, emesis, abdominal pain, chest pain or worsened dyspnea. Objective: Physical Examination: General: awake, alert, oriented x 3 and cooperative, seated upright in bed in no apparent distress, improved appearance from day prior. Skin: normal color, turgor, no icterus, cyanosis, left foot with Charcot joint with 2 small wounds on the plantar surface, well-appearing, noninfected, no evidence of erythema. HEENT: AT/NC, EOMI, PERRLA, mildly dry MM. Lungs: Diminished breath sounds bilaterally, greater bases, normal effort currently, no rales, ronchi or wheezing. Heart: Regular rate and rhythm; no gallop, rub audible. Abdomen: soft, NTTP, ND, normal BS. Extremities: no cyanosis, clubbing, or edema, see skin, no tenderness with palpation again of the spine but moving in bed with greater ease. Neurological: patient awake, alert, oriented as noted; cognitive function appears baseline intact; pupils equally reactive to light and accomodation; cranial nerves II-XII grossly normal, moving all 4 extremities, strength improved but remains moderately global decrease secondary to acute presentation. Psychiatric: affect appears fatigued otherwise improved, no acute evidence of depressive or anxiety feelings. Vitals/I&O's: Vital Signs Temp Pulse Resp BP Pulse Ox 102.2 F H 74 16 172/83 H 92 08/09/19 05:59 08/09/19 06:43 08/09/19 05:59 08/09/19 06:43 08/09/19 05:59 Oxygen Flow Rate (L/min) 2 Oxygen Delivery Method Nasal Cannula Weight: 199 lb 6.4 oz Body Mass Index (BMI) 26.3 Intake and Output for Last 24 Hours 08/07/19 08/08/19 08/09/19 23:59 23:59 23:59 Intake Total 1130.00 / 1130.00 1125 / 1125 Output Total 200 / 200 200 / 200 Balance 930.00 / 930.00 925 / 925 Microbiology Past 72 Hours 08/08/19 19:50 Mucosa - Nasopharyngeal Respiratory Panel (PCR) - Preliminary Laboratory Results 08/08/19 15:31: WBC 19.7 H, RBC 3.43 L, Hgb 9.5 L, Hct 29.4 L, MCV 85.7, MCH 27.7, MCHC 32.3, RDW Std Deviation 48.9 H, RDW Coeff of Dipti 15.8 H, Plt Count 173, MPV 10.0, Immature Gran % (Auto) 0.800, Neut % (Auto) 83.8 H, Lymph % (Auto) 3.9 L, [place] % (Auto) 11.1 H, Eos % (Auto) 0.1, Baso % (Auto) 0.3, Absolute Neuts (auto) 16.5 H, Absolute Lymphs (auto) 0.77 L, Nucleated RBC % 0, Differential Comment SCANNED, Diff Path Review August foll 08/08/19 15:31: PT 16.7 H, INR 1.4, APTT 44.3 H 08/08/19 15:31: Sodium 131 L, Potassium 3.4 L, Chloride 98, Carbon Dioxide 22.0, Anion Gap 11, BUN 23 H, Creatinine 1.48 H, Estim Creat Clear Calc 59.24, Est GFR (MDRD) Af Amer 62, Est GFR (MDRD) Non-Af 51 L, BUN/Creatinine Ratio 15.5, Glucose 154 H, Calcium 8.2 L, Total Bilirubin 2.00 H, AST 18, ALT 16, Alkaline Phosphatase 133 H, Total Protein 6.5, Albumin 2.8 L, Globulin 3.7, Albumin/Globulin Ratio 0.8 L 08/08/19 15:31: Lactic Acid 2.9 H* 08/08/19 15:31: D-Dimer Quant (PE/DVT) 1.84 H* 08/08/19 15:31: Magnesium 1.1 L, Ferritin 183, Lactate Dehydrogenase 269 H, C- React Prot Ext Range 139.00 H 08/08/19 15:31: Procalcitonin 0.15 H 08/08/19 16:30: Urine Color Yellow, Urine Clarity Sl. Cloudy, Urine pH 5.0, Ur Specific [place] 1.015, Urine Protein 500 H, Urine Glucose (UA) 50 H, Urine Ketones Negative, Urine Occult Blood 50 H, Urine Nitrite Negative, Urine Bilirubin Negative, Urine Urobilinogen 1 H, Ur Leukocyte Esterase Negative, Urine RBC 0-5 SEEN, Urine WBC 0 SEEN, Ur Squamous Epith Cells 0-5 SEEN, Urine Bacteria 2+, Urine Mucus RARE 08/08/19 19:10: Troponin I < 0.015 08/08/19 19:10: Lactic Acid 1.1 08/08/19 19:50: COVID-19 (ORAL) Pending 08/08/19 21:17: POC Glucose 144 H 08/08/19 22:10: Troponin I < 0.015 08/09/19 00:16: Troponin I < 0.015 08/09/19 06:41: POC Glucose Pending Current Medications Acetaminophen (Tylenol) 650 mg PO Q6H PRN PRN PRN Reason: Pain Score 1-10/Temp > 100.7 F Last Admin: 08/09/19 06:44 Dose: 650 mg Documented by: Al Hydroxide/Mg Hydroxide (Mylanta Ii) 30 ml PO Q6H PRN PRN PRN Reason: Gastric Burning Albuterol Sulfate (Ventolin Aerosols) 2.5 mg INHALATION Q2H PRN PRN PRN Reason: Dyspnea, wheezing Albuterol/Ipratropium (Duoneb) 3 ml INHALATION Q4HWA.RT [facility] Last Admin: 08/08/19 19:50 Dose: 3 ml Documented by: Amlodipine Besylate (Norvasc) 10 mg PO DAILY [facility] Aspirin (Ecotrin) 81 mg PO DAILY@0800 [facility] Atorvastatin Calcium (Lipitor) 40 mg PO QHS [facility] Last Admin: 08/08/19 21:32 Dose: 40 mg Documented by: Azithromycin (Zithromax) 500 mg PO Q24 [facility] Clopidogrel Bisulfate (Plavix) 75 mg PO DAILY [facility] Dextrose (D50w Syringe) 0 gm IV X1 PRN; Protocol PRN Reason: Hypoglycemia Enoxaparin Sodium (Lovenox) 90 mg SC Q12@0600,1800 [facility] Last Admin: 08/09/19 06:45 Dose: 90 mg Documented by: Furosemide (Lasix) 60 mg PO DAILY [facility] Gabapentin (Neurontin) 100 mg PO TIDCM [facility] Glucagon () 1 mg IM .X1 PRN PRN Reason: Hypoglycemia Guaifenesin (Robitussin) 20 ml PO Q4H PRN PRN PRN Reason: COUGH Hydralazine HCl (Apresoline Iv) 10 mg IV Q4H PRN PRN PRN Reason: SBP > 160 Last Admin: 08/09/19 06:43 Dose: 10 mg Documented by: Sodium Chloride () 1,000 mls @ 100 mls/hr IV .Q10H [facility] Last Admin: 08/09/19 05:52 Dose: 100 mls/hr Documented by: Ceftriaxone Sodium 2 gm/ (Sodium Chloride) 50 mls @ 100 mls/hr IV Q24 PENNIE Sodium Chloride () 250 mls @ 15 mls/hr IV .[id number] PRN PRN Reason: Saline Flush Sodium Chloride () 250 mls @ 15 mls/hr IV .[id number] PRN PRN Reason: Additional IVPB Infusion Insulin Human Lispro (Humalog Kwikpen (Bkc)) 0 unit [facility]; Protocol Last Admin: 08/09/19 06:42 Dose: Not Given Documented by: Isosorbide Mononitrate (Imdur) 30 mg PO DAILY [facility] Lisinopril (Zestril) 20 mg PO BID [facility] Last Admin: 08/08/19 21:32 Dose: 20 mg Documented by: Magnesium Hydroxide (Milk Of Magnesia) 30 ml PO DAILY PRN PRN PRN Reason: Constipation Melatonin (Melatonin) 3 mg PO QHS PRN PRN PRN Reason: INSOMNIA Metoprolol Tartrate (Lopressor (Beta Monse)) 25 mg PO BID [facility] Last Admin: 08/08/19 21:32 Dose: 25 mg Documented by: Morphine Sulfate () 2 mg IV Q3H PRN PRN PRN Reason: Pain Score 6-10/10 Nitroglycerin (Nitrostat) 0.4 mg SUBLINGUAL Q5M PRN PRN Reason: CARDIAC/CHEST PAIN Ondansetron HCl (Zofran) 4 mg IV Q8H PRN PRN PRN Reason: NAUSEA/VOMITING Last Admin: 08/08/19 18:56 Dose: 4 mg Documented by: Oxycodone HCl (Oxyir) 5 mg PO Q4H PRN PRN PRN Reason: Pain Score 4-5/10 Last Admin: 08/09/19 06:44 Dose: 5 mg Documented by: Pantoprazole Sodium (Protonix) 40 mg PO DAILY PENNIE Prochlorperazine Edisylate (Compazine Iv) 5 mg IV Q4H PRN PRN PRN Reason: Breakthrough Nausea/Vomiting Psyllium Hydrophilic Mucilloid (Metamucil) 1 packet PO DAILY PRN PRN PRN Reason: Constipation Senna/Docusate Sodium (Senokot-S, [place]-Colace) 2 tablet PO BID PRN PRN PRN Reason: Constipation Sodium Chloride () 10 - 40 ml IV UD PRN PRN Reason: SALINE FLUSH Last Admin: 08/09/19 00:50 Dose: 10 ml Documented by: Throat Lozenges (Cepacol Sore Throat Lozenge) 1 lozenge MUCOUS MEM Q2H PRN PRN PRN Reason: SORE THROAT STROKE Vital Signs/Narrative: Vital Signs Temp Pulse Resp BP Pulse Ox 08/09/19 06:43 74 172/83 H 08/09/19 05:59 102.2 F H 76 16 172/83 H 92 08/09/19 03:23 59 Medical Necessity - Tobacco Use Smoking Status: Never smoker Tobacco Use: Non-smoker Assessment/Plan All Active Problems (Last Reviewed 01/16/19 @ 09:[address] 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 1. Acute Severe Sepsis secondary to Acute Gram Positive Cocci Bacteremia secondary to Suspected Recurrent Spinal (Thoracic/Lumbar) Osteomyelitis with possible concurrent Acute Viral Syndrome, COVID-19: Admitted to the COVID unit on telemetry, maintained on oxygen with wean as tolerated to room air, PRN albuterol, initially maintained on IV Rocephin and Azithromycin-->08/09/19 given Bld Cx x 2 with GPC clusters and concern for spinal osteomyelitis transitioned to Vanc and Meropenem given PCN allergy, HOB, IS parameters w/ requested sputum cultures, negative respiratory viral panel, requested urine antigens, D-dimer 1.84 with therapeutic lovenox initiated, ferritin 183, LDH 269, CRP 139, troponin less than 0.015?3, lactic acid initially 2.9 with repeat 1.1, requested COVID testing, 08/09/19 repeat AM CXR w/ mild central vascular congestion otherwise no focal lung consolidation. Lasix 40 mg IV x 1 administered 08/09/19. MRI lumbar spine and thoracic spine ordered STAT. If remarkable findings will need to transfer to [facility]. 2. Hypokalemia: Admission K+ 3.4, magnesium level 1.1 with 4 gm IV administered, 08/09/19 Mag 2.2, K 4.1, improved. 3. Chronic Hyponatremia: Admission Na 131, chronically appears 123-133, judiciously hydrated given presentation; however, mild congestion on repeat AM film with 92% on RA, lasix 40 mg x 1 administered, holding further IVFs. 4. Chronic Kidney Disease Stage III: Admission BUN/Cr 23/1.48, baseline renal function 1.3-1.4, 08/09/19 BUN/Cr 27/1.51, continue to trend. 5. Chronic anemia, iron deficiency new: Admission hemoglobin 9.5, baseline appears 8-9, 08/09/19 Hgb 9.7, stable, trend. 6. Diabetes mellitus type II: Hold oral home regimen, ADA diet, accu checks w/ ISS. 7. CAD: Status post CABG x3, continue aspirin, Plavix, statin, metoprolol, lisinopril regimen. 8. PAD: We will continue on aspirin, Plavix, statin, hypertensive regimen and diabetic regimen as noted. If OR needs then would necessitate plavix hold, but would discussion with [facility]. 9. Hypertension: Continue home regimen including amlodipine, Lasix, isosorbide, lisinopril, metoprolol with hold parameters, PRN hydralazine. 10. Hyperlipidemia: Continue home statin regimen. 11. Depression: Noted history, not on regimen, encourage continued outpatient follow-up in addition of regimen if necessary. 12. DVT prophylaxis: SCDs, therapeutic lovenox. 13. CODE status: Full Code. Inpatient E&M: 34387 Subs Hosp L3
[2019-08-09 07:06] LABS: Bedside Glucose 128 mg/dL (70-110)
[2019-08-09 07:19] LABS: Absolute Lymphocyte Count 0.38 X10^3/uL (0.83-4.51); Absolute Neutrophil Count 13.5 X10^3/uL (2.0-7.7); Basophil# 0.04 X10^3/uL; Basophil% 0.3 % (0-1); Eosinophil# 0.03 X10^3/uL; Eosinophils% 0.2 % (0-5); Hematocrit 30.5 % (40-54); Hemoglobin 9.7 g/dL (13.0-16.5); Lymphocyte # 0.38 X10^3/ul (4.0); Lymphocyte % 2.5 % (19-41); Mean Corp Hgb Conc 31.8 g/dL (32-36); Mean Corpuscular Hgb 27.3 pg (27.0-32.0); Mean Corpuscular Volume 85.9 fL (80-94); Mean Platelet Vol. 10.7 fl (6.2-12.0); Monocyte# 1.02 X10^3/uL; Monocyte% 6.8 % (0-10); NRBC Flagged by Analyzer 0 % (0-5); Neutrophil # 13.54 X10^3/uL (2.7-7.7); Neutrophil % 89.7 % (47-70); POSITIVE DIFFERENTIAL YES; Platelet Count 172 K/mm3 (150-450); RBC Distribution Width SD 50.4 fl (35.1-43.9); Red Blood Count 3.55 M/mm3 (4.6-6.2); White Blood Count 15.1 K/mm3 (4.4-11.0)
[2019-08-09 07:33] LABS: Magnesium 2.2 mg/dL (1.6-2.6)
[2019-08-09 07:38] LABS: ALB/GLOB Ratio 0.7 RATIO (0.9-2.4); AST(SGOT) 20 U/L (15-37); Alanine Aminotransfer ALT/SGPT 14 U/L (16-61); Albumin, Serum 2.7 g/dL (3.2-5.0); Alkaline Phosphatase 140 U/L (45-117); Anion Gap 8 (5-15); BUN 27 mg/dL (7-18); BUN/Creat Ratio 17.9 RATIO (10-20); Calcium,Total 8.2 mg/dL (8.5-10.1); Chloride 97 mmol/L (98-107); Creatinine, Serum 1.51 mg/dL (0.70-1.30); EST Glomerular Filtration Rate 50 mL/min (>60); Est Glom Filt Rate - Afr Amer 61 mL/min (>60); Estimated Creatinine Clearance 58.06 ml/min; Globulin 4.1 g/dL (2.2-4.2); Glucose 127 mg/dL (74-106); Potassium 4.1 mmol/L (3.5-5.1); Protein, Total 6.8 g/dL (6.4-8.2); Sodium Level 129 mmol/L (136-145)
[2019-08-09 07:47] LABS: Differential Indicated SCAN CRITERIA MET
[2019-08-09 07:50] LABS: Differential Comment SCANNED
--- NOTE | 2019-08-09 08:09 | MRI_ITS ---
STUDY: MRI THORACIC SPINE WITHOUT CONTRAST REASON FOR EXAM: Male, 59 years old. Osteomyelitis -- f/u prev mri 2018, thoracic surgery 02/2019 with hardware, now x 5=4 days pain rt side low thoracic, upper lumbar TECHNIQUE: Standardized fat and water weighted pulse sequences were obtained in the sagittal and axial planes. COMPARISON: 02/18/2019. FINDINGS: Normal kyphosis of the thoracic spine. There is no substantial scoliosis. T1-2, T2-3, T3-4, T4-5, T5-6, T6-7, T7-8, T8-9, T9-10, T10-11, T11-12: Pedicular screws and rods and disc implant at T10-T11 with some signal distortion artifacts. The bone edema of the T10 and T11 vertebral bodies have resolved. There is improvement of the ventral extradural defect behind the T10 and T11 vertebral bodies. There is no suspicious osteomyelitis despite the absence of IV contrast. Mild anterior wedge compression fractures of the upper T7 and T8 vertebral bodies are unchanged. Schmorl''s nodes in the vertebral endplates at the T8-T9 disc level are unchanged. No ventral extradural defects. Degenerative anterolisthesis of C7 on T1 with C7-T1 disc space height narrowing is unchanged. Normal visualized thoracic cord. Normal conus medullaris that terminates at the T12-L1 disc level. The soft tissue structures are unremarkable. MRI/Spine Thoracic (Routine) IMPRESSION: 1. No MRI evidence of suspicious osteomyelitis or epidural abscess despite the absence of IV contrast. 2. Interval improvement of the discitis and vertebral body osteomyelitis at T10-T11 disc level with interval posterior decompression and fusion using pedicular screws and rods and interval placement of disc implants at the T10-T11 disc level. 3. Old anterior wedge compression fractures of the upper T7 and T8 vertebral bodies are unchanged. 4. Mild degenerative anterolisthesis of C7 on T1 with disc space height narrowing are unchanged. Electronically Signed: Eduardo Ferrer MD at 12:31 EDT , Service support ,
--- NOTE | 2019-08-09 08:09 | MRI_ITS ---
STUDY: MRI LUMBAR SPINE WITHOUT CONTRAST REASON FOR EXAM: Male, 59 years old. Osteomyelitis -- f/u prev mri 2018, thoracic surgery 02/2019 with hardware, now x 5=4 days pain rt side low thoracic, upper lumbar TECHNIQUE: Standardized fat and water weighted pulse sequences were obtained in the sagittal and axial planes. COMPARISON: MRI of thoracic spine 02/18/2019. FINDINGS: T11-T12: (Sagittal only). Marked improvement of the bone edema in the included portions of the lower T11 vertebral body. Normal T11 inferior endplate. Mild anterior wedging of the upper T12 vertebral body is old and unchanged. Normal disc space height. Normal central canal and bilateral intervertebral neural foramina. T12-L1: (Sagittal only). Normal T12 inferior endplate. Mild anterior wedging of L1 superior endplate is unchanged. This is from remote injury. Normal disc height and morphology. Normal central canal and bilateral intervertebral neural foramina. Normal lumbar lordosis. There is no substantial scoliosis. Normal conus medullaris that terminates at the T12-L1 disc level. L1-2: Mild anterior wedging of the anterior L1 inferior endplate is unchanged. Normal L2 superior endplate. Mild disc space height narrowing. Small posterior bulging disc. Normal central canal and bilateral lateral recesses. Mild the prominent dorsal epidural lipomatosis. Mild degenerative facet arthropathy. Normal bilateral intervertebral neural foramina. L2-3: Normal endplates. Mild disc space height narrowing. Mild central canal stenosis with an AP canal diameter of 11 mm. Prominent dorsal epidural lipomatosis. Normal bilateral lateral recesses. Mild degenerative facet arthropathy. Normal bilateral intervertebral neural foramina. L3-4: Normal endplates. Minimal disc height narrowing and mild loss of disc hydration. Mild central canal stenosis with an AP canal diameter of 11 mm. Mildly prominent dorsal epidural lipomatosis. Normal bilateral lateral recesses. Mild degenerative facet arthropathy. Normal bilateral intervertebral neural foramina. L4-5: Normal endplates. Normal disc height, hydration and morphology. Normal bilateral facet joints. Normal central canal and bilateral lateral recesses. Normal bilateral intervertebral neural foramina. L5-S1: Normal endplates. Mild disc space height. Small right posterior paramedian disc protrusion. Normal central canal and bilateral lateral recesses. Mild degenerative facet arthropathy. Normal bilateral intervertebral neural foramina. Normal visualized sacral ala. Normal visualized paraspinous soft tissue structures. MRI/Spine Lumbar (Routine) IMPRESSION: 1. Improvement of the of bone edema in the included portions of the lower T11 vertebral body. 2. Old anterior wedging of the T12 and L1 vertebral bodies are unchanged. 3. Small right L5-S1 posterior paramedian disc protrusion without suspicious displacement of the right S1 nerve root sleeve. 4. No MRI evidence of lumbar extruded disc fragment or spinal stenosis. 5. No MRI evidence of discitis or vertebral body osteomyelitis of the lumbar spine. Electronically Signed: Eduardo Ferrer MD at 12:41 EDT , Service support ,
[2019-08-09] MEDS: Metoprolol Tartrate 25 MG Tablet PO ×2 (09:01→21:49)
[2019-08-09] MEDS: Azithromycin 250 MG Tablet 500 MG PO (09:02)
[2019-08-09] MEDS: Lisinopril 20 MG Tablet PO ×2 (09:03→21:49)
[2019-08-09] MEDS: Clopidogrel Bisulfate 75 MG Tablet PO (09:03)
[2019-08-09] MEDS: Gabapentin 100 MG Capsule PO ×3 (09:03→17:24)
[2019-08-09] MEDS: amLODIPine 10 MG Tablet PO (09:03)
[2019-08-09] MEDS: Aspirin E.C. 81 MG Tablet PO (09:03)
[2019-08-09] MEDS: Furosemide 20 MG Tablet 60 MG PO (09:03)
[2019-08-09] MEDS: Isosorbide Mononitrate 30 MG Tablet PO (09:03)
[2019-08-09] MEDS: Pantoprazole Sodium 40 MG Tablet PO (09:03)
--- NOTE | 2019-08-09 11:46 | PHA.PHARE_ITS ---
Consult Pharmacy has been consulted to manage selected antiobiotic: Vancomycin Type of Consult: New start Suspected Infection: Sepsis, Osteomyelitis, Bacteremia Labs: Sodium 129 mmol/L (136-145) L 08/09/19 06:34 Potassium 4.1 mmol/L (3.5-5.1) 08/09/19 06:34 Chloride 97 mmol/L (98-107) L 08/09/19 06:34 Carbon Dioxide 24.0 mmol/L (21.0-32.0) 08/09/19 06:34 Anion Gap 8 (5-15) 08/09/19 06:34 BUN 27 mg/dL (7-18) H 08/09/19 06:34 Creatinine 1.51 mg/dL (0.70-1.30) H 08/09/19 06:34 Est GFR (MDRD) Af Amer 61 mL/min (>60) 08/09/19 06:34 Est GFR (MDRD) Non-Af 50 mL/min (>60) L 08/09/19 06:34 BUN/Creatinine Ratio 17.9 RATIO (10-20) 08/09/19 06:34 Glucose 127 mg/dL (74-106) H 08/09/19 06:34 Microbiology: Microbiology 08/08/19 15:30 Blood Culture (Wb) - Right Forearm Blood Culture - Preliminary 08/08/19 15:31 Blood Culture (Wb) - Left Forearm Blood Culture - Preliminary 08/08/19 19:50 Mucosa - Nasopharyngeal Respiratory Panel (PCR) - Final Weight used for dosin.4 kg Estimated Creatinine Clearance: 58 ML/MIN Goal Trough: 15-20 mcg/mL Pharmacy Plan for Drug Dosing: Give initial loading dose of 2000mg IV x1, then continue with 1000mg IV q12h, per [facility] dosing protocol. A vancomycin trough level will be ordered to be drawn before the 4th dose tomorrow evening. Pharmacy Service will continue to monitor and adjust dosing as required. Follow-Up Labs: Trough Vancomycin Labs to be done on [date and time ordered]: 08/10/19 20:30
[2019-08-09] MEDS: Furosemide 40 MG/4 ML Vial IV (12:46)
--- NOTE | 2019-08-09 12:57 | ECHOD_ITS ---
Reason For Study: arrhythmia Procedure This was a 2D Doppler, Color Flow transthoracic echocardiogram. The study was technically difficult. Exam performed portable in patient room. The exam was abbreviated due to the COVID 19 protocol. Left Ventricle Normal LV size. Left ventricular systolic function is normal. The estimated ejection fraction is 60 %. Unable to assess diastolic dysfunction. No regional wall motion abnormalities noted. Right Ventricle Normal RV size. Normal systolic function. Atria The left atrium is mildly enlarged. Normal right atrium. No doppler evidence for ASD. Mitral Valve There is moderate mitral annular calcification. Extension of the mitral annular calcification onto the mitral valve leaflet. Anterior leaflet diffuse mitral valve thickening. Trivial mitral valve insufficiency. Tricuspid Valve Normal tricuspid valve. Mild tricuspid valve insufficiency. Right ventricular systolic pressure estimated to be 43 mmHg. Aortic Valve Trisinus/trileaflet aortic valve. Mild focal aortic valve calcification. Pulmonic Valve Normal pulmonic valve. Trivial pulmonic valve insufficiency. Great Vessels Normal sized aortic root. Pericardium/Pleural No pericardial effusion. MMode/2D Measurements & Calculations LVIDd: 5.3 cm IVSd: 1.4 cm Ao root diam: 3.6 cm LVIDs: 3.1 cm LVPWd: 1.3 cm LA dimension: 4.6 cm RVDd: 3.9 cm FS: 40.5 % LAV(MOD-bp): 74.6 ml LA A4 area: 23.0 cm2 RA A4 area: 23.1 cm2 LAV(MOD-bp) Indexed: 34.8 ml/m2 LAV(MOD-sp2): 73.5 ml LAV(MOD-sp4): 73.7 ml Doppler Measurements & Calculations MV E max ketan: 163.7 cm/sec Ao V2 max: 127.9 cm/sec LV V1 max: 101.8 cm/sec Ao max P.5 mmHg LV V1 max P.1 mmHg PA V2 max: 90.4 cm/sec TR max ketan: 315.1 cm/sec TR max P.7 mmHg Interpretation Summary The study was technically difficult. Left ventricular systolic function is normal. The estimated ejection fraction is 60 %. The left atrium is mildly enlarged. There is moderate mitral annular calcification. Extension of the mitral annular calcification onto the mitral valve leaflet. Anterior leaflet diffuse mitral valve thickening. Trivial mitral valve insufficiency. Mild tricuspid valve insufficiency. Mild focal aortic valve calcification. Trivial pulmonic valve insufficiency. Right ventricular systolic pressure estimated to be 43 mmHg. Unable to assess diastolic dysfunction. Ordering Physician: Corine Flores Referring Physician: Delgado Smith Performed By: Lidia Alejo RDCS, RVT
[2019-08-09 15:35] LABS: Bedside Glucose 150 mg/dL (70-110)
[2019-08-09] MEDS: Albuterol 2.5 MG/3 ML VIAL.NEB. INHALATION (16:16)
[2019-08-09] MEDS: Insulin Lispro 100 UNIT/ML INSULN.PEN SC (17:48)
[2019-08-09 18:01] LABS: Bedside Glucose 170 mg/dL (70-110)
[2019-08-09] MEDS: Vancomycin IV 1,000 MG/200 ML BAG 200 MG IV (21:48)
[2019-08-09] MEDS: Atorvastatin Calcium 40 MG Tablet PO (21:49)
[2019-08-09 22:26] LABS: Bedside Glucose 140 mg/dL (70-110)
[2019-08-10] VITALS (13 sets, daily range): BP systolic 149–182; BP diastolic 70–90; PULSE 60–88; RESP 16–18; TEMP 37.1–38.2; O2SAT 92–95
[2019-08-10] MEDS: hydrALAZINE 20 MG/ML Vial 10 MG IV (06:12)
[2019-08-10] MEDS: Acetaminophen 325 MG Tablet 650 MG PO (06:13)
[2019-08-10] MEDS: oxyCODONE 5 MG Tablet PO ×4 (06:13→22:44)
[2019-08-10] MEDS: Enoxaparin 100 MG/ML Syringe 90 MG SC ×2 (06:14→17:31)
[2019-08-10 06:30] LABS: Bedside Glucose 126 mg/dL (70-110)
[2019-08-10 07:36] LABS: Absolute Lymphocyte Count 0.46 X10^3/uL (0.83-4.51); Basophil# 0.03 X10^3/uL; Basophil% 0.4 % (0-1); Eosinophil# 0.08 X10^3/uL; Eosinophils% 0.9 % (0-5); Hematocrit 27.1 % (40-54); Hemoglobin 8.7 g/dL (13.0-16.5); Lymphocyte # 0.46 X10^3/ul (4.0); Lymphocyte % 5.4 % (19-41); Mean Corp Hgb Conc 32.1 g/dL (32-36); Mean Corpuscular Hgb 27.4 pg (27.0-32.0); Mean Corpuscular Volume 85.5 fL (80-94); Mean Platelet Vol. 10.3 fl (6.2-12.0); Monocyte# 0.91 X10^3/uL; Monocyte% 10.7 % (0-10); NRBC Flagged by Analyzer 0 % (0-5); Neutrophil # 6.99 X10^3/uL (2.7-7.7); Neutrophil % 82.1 % (47-70); POSITIVE DIFFERENTIAL YES; Platelet Count 167 K/mm3 (150-450); RBC Distribution Width CV 15.8 % (11.6-14.6); RBC Distribution Width SD 49.6 fl (35.1-43.9); Red Blood Count 3.17 M/mm3 (4.6-6.2); White Blood Count 8.5 K/mm3 (4.4-11.0)
[2019-08-10 07:39] LABS: Differential Indicated SCAN CRITERIA MET
[2019-08-10 07:58] LABS: ALB/GLOB Ratio 0.7 RATIO (0.9-2.4); AST(SGOT) 24 U/L (15-37); Alanine Aminotransfer ALT/SGPT 17 U/L (16-61); Albumin, Serum 2.7 g/dL (3.2-5.0); Alkaline Phosphatase 147 U/L (45-117); Anion Gap 10 (5-15); BUN 36 mg/dL (7-18); BUN/Creat Ratio 22.4 RATIO (10-20); Calcium,Total 8.2 mg/dL (8.5-10.1); Chloride 97 mmol/L (98-107); Creatinine, Serum 1.61 mg/dL (0.70-1.30); EST Glomerular Filtration Rate 47 mL/min (>60); Est Glom Filt Rate - Afr Amer 56 mL/min (>60); Estimated Creatinine Clearance 54.45 ml/min; Globulin 4.1 g/dL (2.2-4.2); Glucose 124 mg/dL (74-106); Potassium 3.9 mmol/L (3.5-5.1); Protein, Total 6.8 g/dL (6.4-8.2); Sodium Level 129 mmol/L (136-145)
[2019-08-10 08:09] LABS: Acanthocytes 1+; Ovalocyte 1+; Platelet Estimate ADEQUATE (ADEQ); Red Cell Morphology NORM C+C NORMAL (NORM C&C)
[2019-08-10] MEDS: Vancomycin IV 1,000 MG/200 ML BAG 200 MG IV (10:44)
[2019-08-10] MEDS: Aspirin E.C. 81 MG Tablet PO (10:44)
[2019-08-10] MEDS: Gabapentin 100 MG Capsule PO ×3 (10:44→17:27)
[2019-08-10] MEDS: Metoprolol Tartrate 25 MG Tablet PO ×2 (10:45→22:44)
[2019-08-10] MEDS: Furosemide 20 MG Tablet 60 MG PO (10:45)
[2019-08-10] MEDS: Isosorbide Mononitrate 30 MG Tablet PO (10:45)
[2019-08-10] MEDS: amLODIPine 10 MG Tablet PO (10:46)
[2019-08-10] MEDS: Clopidogrel Bisulfate 75 MG Tablet PO (10:47)
[2019-08-10] MEDS: Lisinopril 20 MG Tablet PO ×2 (10:47→22:44)
[2019-08-10] MEDS: Pantoprazole Sodium 40 MG Tablet PO (10:47)
[2019-08-10 10:57] LABS: Pathologist Review Reviewed
[2019-08-10] MEDS: Insulin Lispro 100 UNIT/ML INSULN.PEN SC ×2 (10:57→22:46)
--- NOTE | 2019-08-10 12:17 | PN_ITS ---
Patient Problems: Active and Suspected Problems (Last Reviewed 01/16/19 @ 09:[address] Fredo Rodriguez MD) Severe sepsis (Acute) Suspected 2019 novel coronavirus infection (Acute) Hypokalemia (Acute) Reason for Visit: Bacteremia Subjective: Feels well. Denies any new complaints. Vitals/I&O's: Vital Signs Temp Pulse Resp BP Pulse Ox 37.1 C 60 16 150/77 H 95 08/10/19 12:00 08/10/19 12:00 08/10/19 12:00 08/10/19 12:00 08/10/19 12:00 Oxygen Flow Rate (L/min) 2 Oxygen Delivery Method Room Air Weight: 90.446 kg Body Mass Index (BMI) 26.3 Intake and Output for Last 24 Hours 08/08/19 08/09/19 08/10/19 23:59 23:59 23:59 Intake Total 1130.00 / 1130.00 3597.60 / 3597.60 317.4 / 317.4 Output Total 200 / 200 900 / 900 300 / 300 Balance 930.00 / 930.00 2697.60 / 2697.60 17.4 / 17.4 General: Cooperative, No apparent distress HEENT: Atraumatic, Normocephalic Oral: Moist Mucosa, No Gingival or Mucosal Lesions/ Ulcerations Neck: No Nodes, Trachea Midline Lungs: Clear to auscultation, Normal air movement, No rhonchi, No wheeze, No rales Cardiovascular: Regular rate, Regular Rhythm, Normal S1, Normal S2, No murmurs Abdomen: Bowel Sounds Present, Soft, Non Tender, Non-Distended, No Hepato- splenomegaly Extremities: - - Charcot foot on left with prominence on mid plantar aspect with dry wounds. Skin: No rashes, No breakdown Psych/Mental Status: Normal Affect, Appropriate Microbiology Past 72 Hours 08/09/19 15:31 Sputum, Expectorated/Coughed Gram Stain - Final 08/09/19 15:31 Sputum, Expectorated/Coughed Respiratory Culture - Preliminary Appears to be normal respiratory monica. Further studies to follow. 08/08/19 15:31 Blood Culture (Wb) - Left Forearm Blood Culture - Final Staphylococcus aureus 08/08/19 15:30 Blood Culture (Wb) - Right Forearm Bacteria Detection (PCR) - Final Staphylococcus aureus 08/08/19 15:30 Blood Culture (Wb) - Right Forearm Blood Culture - Preliminary Staphylococcus aureus 08/08/19 16:30 Urine, Clean Catch Streptococcus pneumoniae Antigen (M - Final 08/08/19 16:30 Urine, Clean Catch Legionella Antigen - Final 08/08/19 16:30 Urine, Clean Catch Urine Culture - Preliminary Culture exhibits no growth. 08/08/19 19:50 Mucosa - Nasopharyngeal Respiratory Panel (PCR) - Final Laboratory Results 08/08/19 15:31: Diff Path Review Reviewed 08/09/19 12:45: POC Glucose 150 H 08/09/19 17:23: POC Glucose 170 H 08/09/19 22:14: POC Glucose 140 H 08/10/19 06:16: POC Glucose 126 H 08/10/19 07:00: WBC 8.5, RBC 3.17 L, Hgb 8.7 L, Hct 27.1 L, MCV 85.5, MCH 27.4, MCHC 32.1, RDW Std Deviation 49.6 H, RDW Coeff of Dipti 15.8 H, Plt Count 167, MPV 10.3, Immature Gran % (Auto) 0.500, Neut % (Auto) 82.1 H, Lymph % (Auto) 5.4 L, [place] % (Auto) 10.7 H, Eos % (Auto) 0.9, Baso % (Auto) 0.4, Absolute Neuts (auto) 7.0, Absolute Lymphs (auto) 0.46 L, Nucleated RBC % 0, Differential Comment , Platelet Estimate ADEQUATE, RBC Morphology NORM C+C, Ovalocytes 1+, Acanthocytes (Spur) 1+ 08/10/19 07:00: Sodium 129 L, Potassium 3.9, Chloride 97 L, Carbon Dioxide 22.0, Anion Gap 10, BUN 36 H, Creatinine 1.61 H, Estim Creat Clear Calc 54.45, Est GFR (MDRD) Af Amer 56 L, Est GFR (MDRD) Non-Af 47 L, BUN/Creatinine Ratio 22.4 H, Glucose 124 H, Calcium 8.2 L, Total Bilirubin 1.40 H, AST 24, ALT 17, Alkaline Phosphatase 147 H, Total Protein 6.8, Albumin 2.7 L, Globulin 4.1, Albumin/Globulin Ratio 0.7 L Current Medications Acetaminophen (Tylenol) 650 mg PO Q6H PRN PRN PRN Reason: Pain Score 1-10/Temp > 100.7 F Last Admin: 08/10/19 06:13 Dose: 650 mg Documented by: Al Hydroxide/Mg Hydroxide (Mylanta Ii) 30 ml PO Q6H PRN PRN PRN Reason: Gastric Burning Albuterol Sulfate (Ventolin Aerosols) 2.5 mg INHALATION Q2H PRN PRN PRN Reason: Dyspnea, wheezing Last Admin: 08/09/19 16:16 Dose: 2.5 mg Documented by: Amlodipine Besylate (Norvasc) 10 mg PO DAILY [facility] Last Admin: 08/10/19 10:46 Dose: 10 mg Documented by: Aspirin (Ecotrin) 81 mg PO DAILY@0800 [facility] Last Admin: 08/10/19 10:44 Dose: 81 mg Documented by: Atorvastatin Calcium (Lipitor) 40 mg PO QHS [facility] Last Admin: 08/09/19 21:49 Dose: 40 mg Documented by: Clopidogrel Bisulfate (Plavix) 75 mg PO DAILY [facility] Last Admin: 08/10/19 10:47 Dose: 75 mg Documented by: Dextrose (D50w Syringe) 0 gm IV X1 PRN; Protocol PRN Reason: Hypoglycemia Enoxaparin Sodium (Lovenox) 90 mg SC Q12@0600,1800 [facility] Last Admin: 08/10/19 06:14 Dose: 90 mg Documented by: Furosemide (Lasix) 60 mg PO DAILY [facility] Last Admin: 08/10/19 10:45 Dose: 60 mg Documented by: Gabapentin (Neurontin) 100 mg PO TIDCM [facility] Last Admin: 08/10/19 10:44 Dose: 100 mg Documented by: Glucagon () 1 mg IM .X1 PRN PRN Reason: Hypoglycemia Guaifenesin (Robitussin) 20 ml PO Q4H PRN PRN PRN Reason: COUGH Hydralazine HCl (Apresoline Iv) 10 mg IV Q4H PRN PRN PRN Reason: SBP > 160 Last Admin: 08/10/19 06:12 Dose: 10 mg Documented by: Sodium Chloride () 250 mls @ 15 mls/hr IV .[id number] PRN PRN Reason: Saline Flush Sodium Chloride () 250 mls @ 15 mls/hr IV .[id number] PRN PRN Reason: Additional IVPB Infusion Vancomycin IV Pharmacy to Dose (1 ea/ Sodium Chloride) 500 mls @ 250 mls/hr IV X1 PRN; Protocol PRN Reason: Rx to Dose Meropenem 1 gm/ Sodium (Chloride) 120 mls @ 33 mls/hr IV Q8 [facility] Last Infusion: 08/10/19 09:53 Dose: Infused Documented by: Vancomycin HCl (Vancomycin) 1,000 mg in 200 mls @ 200 mls/hr IV Q12H [facility] Last Admin: 08/10/19 10:44 Dose: 200 mls/hr Documented by: Insulin Human Lispro (Humalog Kwikpen (Bkc)) 0 unit SC ACHS [facility]; Protocol Last Admin: 08/10/19 10:57 Dose: 1 units Documented by: Isosorbide Mononitrate (Imdur) 30 mg PO DAILY [facility] Last Admin: 08/10/19 10:45 Dose: 30 mg Documented by: Lisinopril (Zestril) 20 mg PO BID [facility] Last Admin: 08/10/19 10:47 Dose: 20 mg Documented by: Magnesium Hydroxide (Milk Of Magnesia) 30 ml PO DAILY PRN PRN PRN Reason: Constipation Melatonin (Melatonin) 3 mg PO QHS PRN PRN PRN Reason: INSOMNIA Metoprolol Tartrate (Lopressor (Beta Monse)) 25 mg PO BID [facility] Last Admin: 08/10/19 10:45 Dose: 25 mg Documented by: Morphine Sulfate () 2 mg IV Q3H PRN PRN PRN Reason: Pain Score 6-10/10 Nitroglycerin (Nitrostat) 0.4 mg SUBLINGUAL Q5M PRN PRN Reason: CARDIAC/CHEST PAIN Ondansetron HCl (Zofran) 4 mg IV Q8H PRN PRN PRN Reason: NAUSEA/VOMITING Last Admin: 08/08/19 18:56 Dose: 4 mg Documented by: Oxycodone HCl (Oxyir) 5 mg PO Q4H PRN PRN PRN Reason: Pain Score 4-5/10 Last Admin: 08/10/19 06:13 Dose: 5 mg Documented by: Pantoprazole Sodium (Protonix) 40 mg PO DAILY [facility] Last Admin: 08/10/19 10:47 Dose: 40 mg Documented by: Prochlorperazine Edisylate (Compazine Iv) 5 mg IV Q4H PRN PRN PRN Reason: Breakthrough Nausea/Vomiting Psyllium Hydrophilic Mucilloid (Metamucil) 1 packet PO DAILY PRN PRN PRN Reason: Constipation Senna/Docusate Sodium (Senokot-S, Chica-Colace) 2 tablet PO BID PRN PRN PRN Reason: Constipation Sodium Chloride () 10 - 40 ml IV UD PRN PRN Reason: SALINE FLUSH Last Admin: 08/09/19 23:19 Dose: 10 ml Documented by: Throat Lozenges (Cepacol Sore Throat Lozenge) 1 lozenge MUCOUS MEM Q2H PRN PRN PRN Reason: SORE THROAT STROKE Vital Signs/Narrative: Vital Signs Temp Pulse Resp BP Pulse Ox 08/10/19 12:00 37.1 C 60 16 150/77 H 95 08/10/19 10:45 63 149/71 H Medical Necessity - Tobacco Use Smoking Status: Never smoker Tobacco Use: Non-smoker Assessment/Plan All Active Problems (Last Reviewed 01/16/19 @ 09:[address] Fredo Rodriguez MD) Severe sepsis (Acute) Suspected 2018 novel coronavirus infection (Acute) Hypokalemia (Acute) Neuropathy (Acute) Ulcer of left foot (Acute) Charcot's joint, left ankle and foot (Acute) Infection of left foot (Acute) Osteomyelitis (Resolved) 1. severe sepsis: * 2/2 bacteremia and other source of infection * COVID-19 pending, seems unlikely. 2. Bacteremia * + on the * repeat blood cultures today * S. aureus, sensitivities pending * MRI of T and L spine showed improvement * has had previous OM of foot on MRI from October * check MRI of foot * ID consult 3. VTE prophylaxis: LMWH Inpatient E&M: 01297 Subs Hosp L2
--- NOTE | 2019-08-10 12:36 | MRI_ITS ---
STUDY: MRI LEFT MIDFOOT REASON FOR EXAM: Male, 59 years old. left foot bacteremia, h/o charcot foot sore plantar surface mid foot, diabetic TECHNIQUE: Standardized fat and water weighted pulse sequences were obtained in all 3 orthogonal planes. COMPARISON: None. FINDINGS: Normal talonavicular articulation. There is moderate degenerative arthrosis of the calcaneocuboid articulation. Dorsal subluxation of the navicular cuneiform joints. Associated arthrosis likely consistent with Charcot foot. Normal intercuneiform articulations. Normal first tarsometatarsal articulation. Normal Lisfranc ligament. Normal second and third tarsometatarsal articulations. Normal cuboid fourth and cuboid fifth tarsometatarsal articulation. Normal first through fifth metatarsi. Normal tibialis anterior tendon. Normal extensor hallucis longus tendon. Normal extensor digitorum longus tendons. Normal peroneus longus tendon and distal insertion. Normal peroneus brevis tendon and distal insertion. There is diffuse atrophy of the intrinsic muscles of the foot consistent with a peripheral neuropathy. Normal extensor digitorum brevis muscle. Skin thickening and edema of the subcutaneous fat of the plantar aspect of the foot at the level the mid foot consistent with cellulitis. There is no evidence of bony destruction to suggest osteomyelitis. There is some marrow edema within the cuboid bone likely related arthrosis. MRI/Lower Ext/No Jt/w/o IMPRESSION: Charcot foot but no MR evidence of osteomyelitis. Electronically Signed: Jacobo Torrez MD at 15:15 EDT Tel , Service support ,
[2019-08-10 12:40] LABS: Bedside Glucose 189 mg/dL (70-110)
[2019-08-10] MEDS: 0.9% Saline Lock 10 ML Syringe IV ×2 (14:48→19:32)
--- NOTE | 2019-08-10 14:49 | CON.PCM_ITS ---
Reason for Consult: Staph aureus bacteremia Consulted by: Dr. 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 Patient presents with fever and nonproductive cough since late last week. His admission blood cultures from August 07 growing MSSA. He denies any chest pain. His admission chest x-ray was unremarkable. He did undergo an MRI of the thoracic and lumbar spine with the results I reviewed. He is currently alert responsive in no acute distress he is currently on parenteral vancomycin empirically. His medication list are reviewed. He does have allergy to penicillins was taken cephalosporins in the past before. - Medical History Past Medical History (Chronic Problems): Chronic Problems (Last Reviewed 01/16/19 @ 09:[address] Fredo Rodriguez MD) PAD (peripheral artery disease) (Chronic) Diabetes mellitus, type II (Chronic) 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[place] coronary artery w/angina pectoris (Chronic) CABG x 3 [place], Free MAIK-OM, SVG-RPDA 06/12/18 Chronic diastolic (congestive) heart failure (Chronic) HLD (hyperlipidemia) (Chronic) MSSA bacteremia (Chronic) Sinus bradycardia (Chronic) Atherosclerosis of coronary artery without angina pectoris (Chronic) CABG x 3 [place], Free MAIK-OM, SVG-RPDA 06/12/18 H/O coronary artery bypass surgery (Chronic 06/12/18) CABG x 3 [place], Free MAIK-OM, SVG-RPDA 06/12/18 Essential hypertension (Chronic) Allergies/Adverse Reactions: Allergies Penicillins [PCN] Allergy (Verified 08/08/19 14:26) Unknown Home Medications: Ambulatory Orders Medication Instructions Recorded atorvastatin 80 mg tablet 40 mg PO QHS 07/24/18 pantoprazole 40 mg tablet,delayed 40 mg PO DAILY 07/24/18 release Aspirin E.C. [Ecotrin] 81 mg PO DAILY 09/09/18 Lisinopril [Zestril] 20 mg PO BID 09/09/18 isosorbide mononitrate 30 mg 30 mg PO DAILY #90 tab 10/17/18 tablet,extended release 24 hr metoprolol tartrate 25 mg tablet 25 mg PO BID #180 tab 10/17/18 nitroglycerin 0.4 mg sublingual 0.4 mg SUBLINGUAL Q5M PRN #25 tab 10/17/18 tablet amlodipine 10 mg tablet 10 mg PO DAILY #90 tab 01/16/19 furosemide 40 mg tablet 60 mg PO 1630 tab 01/16/19 glimepiride 2 mg tablet 2 mg PO DAILY tab 01/16/19 multivitamin 1 tab PO DAILY 01/16/19 Clopidogrel Bisulfate [Plavix] 75 mg PO DAILY 08/08/19 Gabapentin [Neurontin] 100 mg PO TID 08/08/19 Vital Signs Temp Pulse Resp BP Pulse Ox 98.7 F 60 16 150/77 H 95 08/10/19 12:00 08/10/19 12:00 08/10/19 12:00 08/10/19 12:00 08/10/19 12:00 Oxygen Flow Rate (L/min) 2 Oxygen Delivery Method Room Air Weight: 90.446 kg Body Mass Index (BMI) 26.3 Patient is alert conversive in no acute distress lungs are clear heart exam S1- S2 no murmurs appreciated abdomen soft nontender he does have a Charcot foot in his left foot. Microbiology Past 72 Hours 08/09/19 15:31 Gram Stain - Final Sputum, Expectorated/Coughed Respiratory Culture - Preliminary Appears to be normal respiratory monica. Further studies to follow. 08/08/19 15:31 Blood Culture - Final Blood Culture (Wb) - Left Forearm Staphylococcus aureus 08/08/19 15:30 Bacteria Detection (PCR) - Final Blood Culture (Wb) - Right Forearm Staphylococcus aureus Blood Culture - Preliminary Staphylococcus aureus 08/08/19 16:30 Streptococcus pneumoniae Antigen (M - Final Urine, Clean Catch 08/08/19 16:30 Legionella Antigen - Final Urine, Clean Catch 08/08/19 16:30 Urine Culture - Preliminary Urine, Clean Catch Culture exhibits no growth. 08/08/19 19:50 Respiratory Panel (PCR) - Final Mucosa - Nasopharyngeal Laboratory Tests Past 24 Hrs 08/08/19 08/10/19 08/10/19 15:31 07:00 07:00 WBC 8.5 RBC 3.17 L Hgb 8.7 L Hct 27.1 L MCV 85.5 MCH 27.4 MCHC 32.1 RDW Std Deviation 49.6 H RDW Coeff of Dipti 15.8 H Plt Count 167 MPV 10.3 Immature Gran % (Auto) 0.500 Neut % (Auto) 82.1 H Lymph % (Auto) 5.4 L [place] % (Auto) 10.7 H Eos % (Auto) 0.9 Baso % (Auto) 0.4 Absolute Neuts (auto) 7.0 Absolute Lymphs (auto) 0.46 L Nucleated RBC % 0 Differential Comment Diff Path Review Reviewed Platelet Estimate ADEQUATE RBC Morphology NORM C+C Ovalocytes 1+ Acanthocytes (Spur) 1+ Sodium 129 L Potassium 3.9 Chloride 97 L Carbon Dioxide 22.0 Anion Gap 10 BUN 36 H Creatinine 1.61 H Estim Creat Clear Calc 54.45 Est GFR (MDRD) Af Amer 56 L Est GFR (MDRD) Non-Af 47 L BUN/Creatinine Ratio 22.4 H Glucose 124 H Calcium 8.2 L Total Bilirubin 1.40 H AST 24 ALT 17 Alkaline Phosphatase 147 H Total Protein 6.8 Albumin 2.7 L Globulin 4.1 Albumin/Globulin Ratio 0.7 L - Other Studies Radiology: [] Other Studies: [] Route of nutrition/ use of supplements: [] Nutritional Intake: [] IV Site: [] Zhu Catheter: [] - Assessment/Plan Antibiotics: [] Assessment/Plan: [] Active and Suspected Problems (Last Reviewed 01/16/19 @ 09:[address] Fredo Rodriguez MD) Severe sepsis (Acute) Suspected 2018 novel coronavirus infection (Acute) Hypokalemia (Acute) Recurrent MSSA bacteremia, at this point will treat with cefazolin 2 g IV every 8 hours and follow his repeat blood cultures from this morning. Continue supportive care.
--- NOTE | 2019-08-10 15:03 | CASEMGMT ---
RN MURRAY has attempted several times to call patient in room to complete assessment. No answer, RN MURRAY also called patient's cell and left voice message with return contact information. RN MURRAY will attempt to complete assessment at later time.
[2019-08-10] MEDS: Cefazolin 2 GM in 0.9% Normal Saline 100 ML IV ×2 (17:18→22:43)
[2019-08-10 17:45] LABS: Bedside Glucose 133 mg/dL (70-110)
[2019-08-10] MEDS: MELATONIN 3 MG TABLET PO (22:44)
[2019-08-10] MEDS: Atorvastatin Calcium 40 MG Tablet PO (22:44)
[2019-08-10 23:05] LABS: Bedside Glucose 154 mg/dL (70-110)
[2019-08-11] VITALS (16 sets, daily range): BP systolic 161–172; BP diastolic 75–85; PULSE 59–96; RESP 16–18; TEMP 37.2–37.8; O2SAT 94–96
[2019-08-11] MEDS: oxyCODONE 5 MG Tablet PO ×3 (06:31→21:18)
[2019-08-11] MEDS: Cefazolin 2 GM in 0.9% Normal Saline 100 ML IV ×3 (06:32→21:19)
[2019-08-11] MEDS: hydrALAZINE 20 MG/ML Vial 10 MG IV ×2 (06:33→17:22)
[2019-08-11] MEDS: 0.9% Saline Lock 10 ML Syringe IV (06:35)
[2019-08-11] MEDS: Enoxaparin 100 MG/ML Syringe 90 MG SC ×2 (06:36→17:10)
[2019-08-11 06:55] LABS: Bedside Glucose 119 mg/dL (70-110)
[2019-08-11 07:35] LABS: Absolute Lymphocyte Count 0.51 X10^3/uL (0.83-4.51); Absolute Neutrophil Count 4.4 X10^3/uL (2.0-7.7); Basophil# 0.02 X10^3/uL; Basophil% 0.3 % (0-1); Eosinophil# 0.12 X10^3/uL; Hematocrit 27.4 % (40-54); Hemoglobin 8.9 g/dL (13.0-16.5); Lymphocyte # 0.51 X10^3/ul (4.0); Lymphocyte % 8.5 % (19-41); Mean Corp Hgb Conc 32.5 g/dL (32-36); Mean Corpuscular Hgb 27.6 pg (27.0-32.0); Mean Corpuscular Volume 84.8 fL (80-94); Monocyte# 0.93 X10^3/uL; Monocyte% 15.5 % (0-10); NRBC Flagged by Analyzer 0 % (0-5); Neutrophil # 4.38 X10^3/uL (2.7-7.7); POSITIVE DIFFERENTIAL YES; Platelet Count 175 K/mm3 (150-450); RBC Distribution Width SD 49.6 fl (35.1-43.9); Red Blood Count 3.23 M/mm3 (4.6-6.2)
[2019-08-11 07:36] LABS: Differential Indicated SCAN CRITERIA MET
[2019-08-11 08:10] LABS: ALB/GLOB Ratio 0.6 RATIO (0.9-2.4); AST(SGOT) 31 U/L (15-37); Alanine Aminotransfer ALT/SGPT 19 U/L (16-61); Albumin, Serum 2.7 g/dL (3.2-5.0); Alkaline Phosphatase 158 U/L (45-117); Anion Gap 9 (5-15); BUN 34 mg/dL (7-18); BUN/Creat Ratio 23.3 RATIO (10-20); Calcium,Total 8.2 mg/dL (8.5-10.1); Chloride 97 mmol/L (98-107); Creatinine, Serum 1.46 mg/dL (0.70-1.30); Differential Comment SCANNED; EST Glomerular Filtration Rate 52 mL/min (>60); Est Glom Filt Rate - Afr Amer 63 mL/min (>60); Estimated Creatinine Clearance 60.05 ml/min; Globulin 4.2 g/dL (2.2-4.2); Glucose 121 mg/dL (74-106); Protein, Total 6.9 g/dL (6.4-8.2); Sodium Level 129 mmol/L (136-145)
[2019-08-11] MEDS: amLODIPine 10 MG Tablet PO (09:40)
[2019-08-11] MEDS: Furosemide 20 MG Tablet 60 MG PO (09:40)
[2019-08-11] MEDS: Aspirin E.C. 81 MG Tablet PO (09:40)
[2019-08-11] MEDS: Gabapentin 100 MG Capsule PO ×3 (09:40→17:09)
[2019-08-11] MEDS: Metoprolol Tartrate 25 MG Tablet PO ×2 (09:40→21:13)
[2019-08-11] MEDS: Isosorbide Mononitrate 30 MG Tablet PO (09:40)
[2019-08-11] MEDS: Pantoprazole Sodium 40 MG Tablet PO (09:41)
[2019-08-11] MEDS: Lisinopril 20 MG Tablet PO ×2 (09:41→21:18)
[2019-08-11] MEDS: Clopidogrel Bisulfate 75 MG Tablet PO (09:41)
--- NOTE | 2019-08-11 10:32 | CASEMGMT ---
RN CM Assessment This consumer loan underwriter called patient bedside, patient answered- this consumer loan underwriter introduced role of RN CM to patient. Patient is alert, oriented and able to participate in RN CM Assessment, agrees to speak at this time. Care providers, pharmacy, and demographics verified. Presentation: Per ER MD note: History of Present Illness: The patient is a 59 M history of diabetes, CAD, triple bypass, Charcot joint with prior partial amputations to his second and third toe of his left foot. Known history of peripheral arterial disease on Plavix. Patient states he developed a fever last night. States has had a nonproductive cough. Denies being short of breath. No dysuria. No abdominal pain. No nausea, vomiting or diarrhea. Admit Dx:Severe Sepsis, possible COVID Re-Admit: No Barriers/Issues: Patient is a r/o COVID. Patient lives with his and there is an 88yo man Ed that lives there- has Alzheimers that his takes care of. Denies having any health issues that would make her immune compromised- however did states she does have a nebulizer that she uses for breathing treatments (this consumer loan underwriter did not delve further). States that he does have a thermometer tat home that he has access to if needed- shared with Ed used as axillary. States that he is able to self isolate at home from the others if needed and states that he would have access with groceries provided to him without leaving home. PCP: Delgado Smith Specialists: States seen by approx 14 different providers Preferred [facility]acy: [facility]. Patient is not opposed to utilizing [facility] pharmacy at [place] if COVID +, however states that his preference is [place]. does drive. Patient drove self to hospital and plans to drive upon DC. Insurance: [employer] Benefit: Yes LNOK: Maya Jones LW/HPOA: States that he has completed a temporary HPOA in the past when he had his triple bypass surgery- HPOA was Maya Jones at that time. Denies further HPOA/LW. Living Arrangements: Lives in a Mobile home with and 88yo male-Ed with Alzheimer in which his cares for. 4 steps to enter home. ADL?s: Independent with ambulation and ADLs Transportation: Patient and both drive, patient drove self to hospital and plans to drive upon DC DME: None HHC: Past with [facility] and current with [facility] SN for Wound care SNF: Past at [facility] Goal: Home and does not think he will have any additional needs. Denies any issues, concerns, needs, or questions with DC planning at this time. Aware RNCM continues to follow for any emerging needs. DC PLAN: Home with resumption of [facility] SN for wound care, no additional needs identified at this time. Maribel Gomez RNCM
--- NOTE | 2019-08-11 10:58 | PCM.PN.ID ---
Patient Problems: Active and Suspected Problems (Last Reviewed 01/16/19 @ 09:[address] Fredo Rodriguez MD) Severe sepsis (Acute) Suspected 2019 novel coronavirus infection (Acute) Hypokalemia (Acute) Subjective: Feeling ok, mild back soreness, no fever, no n/v/d. - Physical Exam Vitals/I&O's: Vital Signs Temp Pulse Resp BP Pulse Ox 98.9 F 66 16 171/82 H 95 08/11/19 09:35 08/11/19 09:40 08/11/19 09:35 08/11/19 09:40 08/11/19 09:35 Oxygen Flow Rate (L/min) 2 Oxygen Delivery Method Room Air Weight: 90.446 kg Body Mass Index (BMI) 26.3 Intake and Output for Last 24 Hours 08/09/19 08/10/19 08/11/19 23:59 23:59 23:59 Intake Total 3597.60 / 3597.60 1797.40 / 1797.40 350 / 350 Output Total 900 / 900 1200 / 1200 Balance 2697.60 / 2697.60 597.40 / 597.40 350 / 350 General: Alert, Cooperative, No apparent distress Lungs: Clear to auscultation, Normal air movement Cardiovascular: Regular rate, Regular Rhythm Abdomen: Soft, Non Tender, Non-Distended Skin: No rashes Microbiology Past 72 Hours 08/09/19 15:31 Sputum, Expectorated/Coughed Gram Stain - Final 08/09/19 15:31 Sputum, Expectorated/Coughed Respiratory Culture - Final Mixed normal respiratory monica. No Streptococcus pneumoniae, beta-hemolytic Streptococcus or Staphylococcus aureus isolated. 08/08/19 16:30 Urine, Clean Catch Urine Culture - Final Culture exhibits no growth. 08/08/19 15:30 Blood Culture (Wb) - Right Forearm Bacteria Detection (PCR) - Final Staphylococcus aureus 08/08/19 15:30 Blood Culture (Wb) - Right Forearm Blood Culture - Final Staphylococcus aureus 08/08/19 15:31 Blood Culture (Wb) - Left Forearm Blood Culture - Final Staphylococcus aureus 08/08/19 16:30 Urine, Clean Catch Streptococcus pneumoniae Antigen (M - Final 08/08/19 16:30 Urine, Clean Catch Legionella Antigen - Final 08/08/19 19:50 Mucosa - Nasopharyngeal Respiratory Panel (PCR) - Final Laboratory Results 08/08/19 19:50: COVID-19 (ORAL) Pending 08/10/19 10:56: POC Glucose 189 H 08/10/19 17:25: POC Glucose 133 H 08/10/19 22:42: POC Glucose 154 H 08/11/19 06:38: POC Glucose 119 H 08/11/19 07:15: WBC 6.0, RBC 3.23 L, Hgb 8.9 L, Hct 27.4 L, MCV 84.8, MCH 27.6, MCHC 32.5, RDW Std Deviation 49.6 H, RDW Coeff of Dipti 16.0 H, Plt Count 175, MPV 10.0, Immature Gran % (Auto) 0.700, Neut % (Auto) 73.0 H, Lymph % (Auto) 8.5 L, Thomas % (Auto) 15.5 H, Eos % (Auto) 2.0, Baso % (Auto) 0.3, Absolute Neuts (auto) 4.4, Absolute Lymphs (auto) 0.51 L, Nucleated RBC % 0, Differential Comment SCANNED 08/11/19 07:15: Sodium 129 L, Potassium 4.0, Chloride 97 L, Carbon Dioxide 23.0, Anion Gap 9, BUN 34 H, Creatinine 1.46 H, Estim Creat Clear Calc 60.05, Est GFR (MDRD) Af Amer 63, Est GFR (MDRD) Non-Af 52 L, BUN/Creatinine Ratio 23.3 H, Glucose 121 H, Calcium 8.2 L, Total Bilirubin 1.10 H, AST 31, ALT 19, Alkaline Phosphatase 158 H, Total Protein 6.9, Albumin 2.7 L, Globulin 4.2, Albumin/Globulin Ratio 0.6 L Current Medications Acetaminophen (Tylenol) 650 mg PO Q6H PRN PRN PRN Reason: Pain Score 1-10/Temp > 100.7 F Last Admin: 08/10/19 06:13 Dose: 650 mg Documented by: Al Hydroxide/Mg Hydroxide (Mylanta Ii) 30 ml PO Q6H PRN PRN PRN Reason: Gastric Burning Albuterol Sulfate (Ventolin Aerosols) 2.5 mg INHALATION Q2H PRN PRN PRN Reason: Dyspnea, wheezing Last Admin: 08/09/19 16:16 Dose: 2.5 mg Documented by: Amlodipine Besylate (Norvasc) 10 mg PO DAILY [facility] Last Admin: 08/11/19 09:40 Dose: 10 mg Documented by: Aspirin (Ecotrin) 81 mg PO DAILY@0800 [facility] Last Admin: 08/11/19 09:40 Dose: 81 mg Documented by: Atorvastatin Calcium (Lipitor) 40 mg PO QHS [facility] Last Admin: 08/10/19 22:44 Dose: 40 mg Documented by: Clopidogrel Bisulfate (Plavix) 75 mg PO DAILY [facility] Last Admin: 08/11/19 09:41 Dose: 75 mg Documented by: Dextrose (D50w Syringe) 0 gm IV X1 PRN; Protocol PRN Reason: Hypoglycemia Enoxaparin Sodium (Lovenox) 90 mg SC Q12@0600,1800 [facility] Last Admin: 08/11/19 06:36 Dose: 90 mg Documented by: Furosemide (Lasix) 60 mg PO DAILY [facility] Last Admin: 08/11/19 09:40 Dose: 60 mg Documented by: Gabapentin (Neurontin) 100 mg PO TIDCM [facility] Last Admin: 08/11/19 09:40 Dose: 100 mg Documented by: Glucagon () 1 mg IM .X1 PRN PRN Reason: Hypoglycemia Guaifenesin (Robitussin) 20 ml PO Q4H PRN PRN PRN Reason: COUGH Hydralazine HCl (Apresoline Iv) 10 mg IV Q4H PRN PRN PRN Reason: SBP > 160 Last Admin: 08/11/19 06:33 Dose: 10 mg Documented by: Sodium Chloride () 250 mls @ 15 mls/hr IV .[id number] PRN PRN Reason: Saline Flush Sodium Chloride () 250 mls @ 15 mls/hr IV .[id number] PRN PRN Reason: Additional IVPB Infusion Cefazolin Sodium 2 gm/ Sodium (Chloride) 110 mls @ 150 mls/hr IV Q8 [facility] Last Infusion: 08/11/19 07:33 Dose: Infused Documented by: Insulin Human Lispro (Humalog Kwikpen (Bkc)) 0 unit SC ACHS [facility]; Protocol Last Admin: 08/11/19 06:38 Dose: Not Given Documented by: Isosorbide Mononitrate (Imdur) 30 mg PO DAILY [facility] Last Admin: 08/11/19 09:40 Dose: 30 mg Documented by: Lisinopril (Zestril) 20 mg PO BID [facility] Last Admin: 08/11/19 09:41 Dose: 20 mg Documented by: Magnesium Hydroxide (Milk Of Magnesia) 30 ml PO DAILY PRN PRN PRN Reason: Constipation Melatonin (Melatonin) 3 mg PO QHS PRN PRN PRN Reason: INSOMNIA Last Admin: 08/10/19 22:44 Dose: 3 mg Documented by: Metoprolol Tartrate (Lopressor (Beta Monse)) 25 mg PO BID [facility] Last Admin: 08/11/19 09:40 Dose: 25 mg Documented by: Morphine Sulfate () 2 mg IV Q3H PRN PRN PRN Reason: Pain Score 6-10/10 Nitroglycerin (Nitrostat) 0.4 mg SUBLINGUAL Q5M PRN PRN Reason: CARDIAC/CHEST PAIN Ondansetron HCl (Zofran) 4 mg IV Q8H PRN PRN PRN Reason: NAUSEA/VOMITING Last Admin: 08/08/19 18:56 Dose: 4 mg Documented by: Oxycodone HCl (Oxyir) 5 mg PO Q4H PRN PRN PRN Reason: Pain Score 4-5/10 Last Admin: 08/11/19 06:31 Dose: 5 mg Documented by: Pantoprazole Sodium (Protonix) 40 mg PO DAILY [facility] Last Admin: 08/11/19 09:41 Dose: 40 mg Documented by: Prochlorperazine Edisylate (Compazine Iv) 5 mg IV Q4H PRN PRN PRN Reason: Breakthrough Nausea/Vomiting Psyllium Hydrophilic Mucilloid (Metamucil) 1 packet PO DAILY PRN PRN PRN Reason: Constipation Senna/Docusate Sodium (Senokot-S, Chica-Colace) 2 tablet PO BID PRN PRN PRN Reason: Constipation Sodium Chloride () 10 - 40 ml IV UD PRN PRN Reason: SALINE FLUSH Last Admin: 08/11/19 06:35 Dose: 10 ml Documented by: Throat Lozenges (Cepacol Sore Throat Lozenge) 1 lozenge MUCOUS MEM Q2H PRN PRN PRN Reason: SORE THROAT Medical Necessity - Tobacco Use Smoking Status: Never smoker Tobacco Use: Non-smoker Route of nutrition/ use of supplements: [] Nutritional Intake: [] IV Site: [] Zhu Catheter: [] - Assessment/Plan Antibiotics: [] Assessment/Plan: [] Active and Suspected Problems (Last Reviewed 01/16/19 @ 09:[address] Fredo Rodriguez MD) Severe sepsis (Acute) Suspected 2018 novel coronavirus infection (Acute) Hypokalemia (Acute) MSSA bacteremia - recurrent infection. Had spine surgery with hardware placement at [facility] 02/2019, followed with Dr. Maurer with ID. After course of iv abx completed , changed to 3 month course of po keflex 500mg bid for suppression. Became bacteremia several weeks after that course stopped. No sign of new infection on MRI of spine, MRI of foot, or TTE. Repeat bcx today. Cont cefazolin, stop meropenem. Once bcx clear, plan will be for discharge on iv cefazolin then indefinite po abx. COVID pending, overall low suspicion for infection. Will follow, d/w Dr. Gaitan.
[2019-08-11] MEDS: Insulin Lispro 100 UNIT/ML INSULN.PEN SC ×2 (11:40→21:20)
[2019-08-11 12:15] LABS: Bedside Glucose 154 mg/dL (70-110)
--- NOTE | 2019-08-11 13:28 | PCM.PN.HOSP ---
Patient Problems: Active and Suspected Problems (Last Reviewed 01/16/19 @ 09:[address] Fredo Rodriguez MD) Severe sepsis (Acute) Suspected 2019 novel coronavirus infection (Acute) Hypokalemia (Acute) Reason for Visit: bacteremia Subjective: feeling well. no new issues. Vitals/I&O's: Vital Signs Temp Pulse Resp BP Pulse Ox 37.2 C 60 16 171/82 H 95 08/11/19 09:35 08/11/19 11:00 08/11/19 09:35 08/11/19 09:40 08/11/19 09:35 Oxygen Flow Rate (L/min) 2 Oxygen Delivery Method Room Air Weight: 90.446 kg Body Mass Index (BMI) 26.3 Intake and Output for Last 24 Hours 08/09/19 08/10/19 08/11/19 23:59 23:59 23:59 Intake Total 3597.60 / 3597.60 1797.40 / 1797.40 470 / 470 Output Total 900 / 900 1200 / 1200 275 / 275 Balance 2697.60 / 2697.60 597.40 / 597.40 195 / 195 General: Alert, Cooperative, No apparent distress HEENT: Atraumatic, Normocephalic Oral: Moist Mucosa, No Gingival or Mucosal Lesions/ Ulcerations Neck: No Nodes, Trachea Midline Lungs: Clear to auscultation, Normal air movement, No rhonchi, No wheeze, No rales Cardiovascular: Regular rate, Regular Rhythm, Normal S1, Normal S2, No murmurs Abdomen: Bowel Sounds Present, Soft, Non Tender, Non-Distended, No Hepato-splenomegaly Extremities: No edema, No Calf Tenderness Skin: No rashes, No breakdown Psych/Mental Status: Normal Affect, Appropriate Microbiology Past 72 Hours 08/09/19 15:31 Sputum, Expectorated/Coughed Gram Stain - Final 08/09/19 15:31 Sputum, Expectorated/Coughed Respiratory Culture - Final Mixed normal respiratory monica. No Streptococcus pneumoniae, beta-hemolytic Streptococcus or Staphylococcus aureus isolated. 08/08/19 16:30 Urine, Clean Catch Urine Culture - Final Culture exhibits no growth. 08/08/19 15:30 Blood Culture (Wb) - Right Forearm Bacteria Detection (PCR) - Final Staphylococcus aureus 08/08/19 15:30 Blood Culture (Wb) - Right Forearm Blood Culture - Final Staphylococcus aureus 08/08/19 15:31 Blood Culture (Wb) - Left Forearm Blood Culture - Final Staphylococcus aureus 08/08/19 16:30 Urine, Clean Catch Streptococcus pneumoniae Antigen (M - Final 08/08/19 16:30 Urine, Clean Catch Legionella Antigen - Final 08/08/19 19:50 Mucosa - Nasopharyngeal Respiratory Panel (PCR) - Final Laboratory Results 08/08/19 19:50: COVID-19 (ORAL) Pending 08/10/19 17:25: POC Glucose 133 H 08/10/19 22:42: POC Glucose 154 H 08/11/19 06:38: POC Glucose 119 H 08/11/19 07:15: WBC 6.0, RBC 3.23 L, Hgb 8.9 L, Hct 27.4 L, MCV 84.8, MCH 27.6, MCHC 32.5, RDW Std Deviation 49.6 H, RDW Coeff of Dipti 16.0 H, Plt Count 175, MPV 10.0, Immature Gran % (Auto) 0.700, Neut % (Auto) 73.0 H, Lymph % (Auto) 8.5 L, Hyde % (Auto) 15.5 H, Eos % (Auto) 2.0, Baso % (Auto) 0.3, Absolute Neuts (auto) 4.4, Absolute Lymphs (auto) 0.51 L, Nucleated RBC % 0, Differential Comment SCANNED 08/11/19 07:15: Sodium 129 L, Potassium 4.0, Chloride 97 L, Carbon Dioxide 23.0, Anion Gap 9, BUN 34 H, Creatinine 1.46 H, Estim Creat Clear Calc 60.05, Est GFR (MDRD) Af Amer 63, Est GFR (MDRD) Non-Af 52 L, BUN/Creatinine Ratio 23.3 H, Glucose 121 H, Calcium 8.2 L, Total Bilirubin 1.10 H, AST 31, ALT 19, Alkaline Phosphatase 158 H, Total Protein 6.9, Albumin 2.7 L, Globulin 4.2, Albumin/Globulin Ratio 0.6 L 08/11/19 11:39: POC Glucose 154 H Current Medications Acetaminophen (Tylenol) 650 mg PO Q6H PRN PRN PRN Reason: Pain Score 1-10/Temp > 100.7 F Last Admin: 08/10/19 06:13 Dose: 650 mg Documented by: Al Hydroxide/Mg Hydroxide (Mylanta Ii) 30 ml PO Q6H PRN PRN PRN Reason: Gastric Burning Albuterol Sulfate (Ventolin Aerosols) 2.5 mg INHALATION Q2H PRN PRN PRN Reason: Dyspnea, wheezing Last Admin: 08/09/19 16:16 Dose: 2.5 mg Documented by: Amlodipine Besylate (Norvasc) 10 mg PO DAILY [facility] Last Admin: 08/11/19 09:40 Dose: 10 mg Documented by: Aspirin (Ecotrin) 81 mg PO DAILY@0800 [facility] Last Admin: 08/11/19 09:40 Dose: 81 mg Documented by: Atorvastatin Calcium (Lipitor) 40 mg PO QHS [facility] Last Admin: 08/10/19 22:44 Dose: 40 mg Documented by: Clopidogrel Bisulfate (Plavix) 75 mg PO DAILY [facility] Last Admin: 08/11/19 09:41 Dose: 75 mg Documented by: Dextrose (D50w Syringe) 0 gm IV X1 PRN; Protocol PRN Reason: Hypoglycemia Enoxaparin Sodium (Lovenox) 90 mg SC Q12@0600,1800 [facility] Last Admin: 08/11/19 06:36 Dose: 90 mg Documented by: Furosemide (Lasix) 60 mg PO DAILY [facility] Last Admin: 08/11/19 09:40 Dose: 60 mg Documented by: Gabapentin (Neurontin) 100 mg PO TIDCM [facility] Last Admin: 08/11/19 11:40 Dose: 100 mg Documented by: Glucagon () 1 mg IM .X1 PRN PRN Reason: Hypoglycemia Guaifenesin (Robitussin) 20 ml PO Q4H PRN PRN PRN Reason: COUGH Hydralazine HCl (Apresoline Iv) 10 mg IV Q4H PRN PRN PRN Reason: SBP > 160 Last Admin: 08/11/19 06:33 Dose: 10 mg Documented by: Sodium Chloride () 250 mls @ 15 mls/hr IV .[id number] PRN PRN Reason: Saline Flush Sodium Chloride () 250 mls @ 15 mls/hr IV .[id number] PRN PRN Reason: Additional IVPB Infusion Cefazolin Sodium 2 gm/ Sodium (Chloride) 110 mls @ 150 mls/hr IV Q8 [facility] Last Infusion: 08/11/19 07:33 Dose: Infused Documented by: Insulin Human Lispro (Humalog Kwikpen (Bkc)) 0 unit SC ACHS [facility]; Protocol Last Admin: 08/11/19 11:40 Dose: 1 units Documented by: Isosorbide Mononitrate (Imdur) 30 mg PO DAILY [facility] Last Admin: 08/11/19 09:40 Dose: 30 mg Documented by: Lisinopril (Zestril) 20 mg PO BID [facility] Last Admin: 08/11/19 09:41 Dose: 20 mg Documented by: Magnesium Hydroxide (Milk Of Magnesia) 30 ml PO DAILY PRN PRN PRN Reason: Constipation Melatonin (Melatonin) 3 mg PO QHS PRN PRN PRN Reason: INSOMNIA Last Admin: 08/10/19 22:44 Dose: 3 mg Documented by: Metoprolol Tartrate (Lopressor (Beta Monse)) 25 mg PO BID [facility] Last Admin: 08/11/19 09:40 Dose: 25 mg Documented by: Morphine Sulfate () 2 mg IV Q3H PRN PRN PRN Reason: Pain Score 6-10/10 Nitroglycerin (Nitrostat) 0.4 mg SUBLINGUAL Q5M PRN PRN Reason: CARDIAC/CHEST PAIN Ondansetron HCl (Zofran) 4 mg IV Q8H PRN PRN PRN Reason: NAUSEA/VOMITING Last Admin: 08/08/19 18:56 Dose: 4 mg Documented by: Oxycodone HCl (Oxyir) 5 mg PO Q4H PRN PRN PRN Reason: Pain Score 4-5/10 Last Admin: 08/11/19 11:40 Dose: 5 mg Documented by: Pantoprazole Sodium (Protonix) 40 mg PO DAILY [facility] Last Admin: 08/11/19 09:41 Dose: 40 mg Documented by: Prochlorperazine Edisylate (Compazine Iv) 5 mg IV Q4H PRN PRN PRN Reason: Breakthrough Nausea/Vomiting Psyllium Hydrophilic Mucilloid (Metamucil) 1 packet PO DAILY PRN PRN PRN Reason: Constipation Senna/Docusate Sodium (Senokot-S, Chica-Colace) 2 tablet PO BID PRN PRN PRN Reason: Constipation Sodium Chloride () 10 - 40 ml IV UD PRN PRN Reason: SALINE FLUSH Last Admin: 08/11/19 06:35 Dose: 10 ml Documented by: Throat Lozenges (Cepacol Sore Throat Lozenge) 1 lozenge MUCOUS MEM Q2H PRN PRN PRN Reason: SORE THROAT STROKE Vital Signs/Narrative: Vital Signs Temp Pulse Resp BP Pulse Ox 08/11/19 11:00 60 08/11/19 09:40 66 171/82 H 08/11/19 09:35 37.2 C 66 16 171/82 H 95 Medical Necessity - Tobacco Use Smoking Status: Never smoker Tobacco Use: Non-smoker Assessment/Plan All Active Problems (Last Reviewed 01/16/19 @ 09:[address] Fredo Rodriguez MD) Severe sepsis (Acute) Suspected 2018 novel coronavirus infection (Acute) Hypokalemia (Acute) Neuropathy (Acute) Ulcer of left foot (Acute) Charcot's joint, left ankle and foot (Acute) Infection of left foot (Acute) Osteomyelitis (Resolved) 1. severe sepsis: 2/2 bacteremia and other source of infection COVID-19 pending, seems unlikely. 2. Bacteremia + on the repeat blood cultures on the MSSA MRI of T and L spine showed improvement has had previous OM of foot on MRI from October MRI foot negative for OM TTE negative for vegetation Discussed with infectious disease, patient will require long-term suppressive antibiotic treatment through the IV and then lifelong suppressive oral medications afterwards. 3. VTE prophylaxis: LMWH Inpatient E&M: [id number] [facility] Hosp L2
[2019-08-11 17:46] LABS: Bedside Glucose 140 mg/dL (70-110)
[2019-08-11] MEDS: Acetaminophen 325 MG Tablet 650 MG PO (21:19)
[2019-08-11] MEDS: Atorvastatin Calcium 40 MG Tablet PO (21:20)
[2019-08-12] VITALS (12 sets, daily range): BP systolic 156–185; BP diastolic 64–94; PULSE 56–75; RESP 16–18; TEMP 36.9–37.2; O2SAT 94–99
[2019-08-12 00:35] LABS: Bedside Glucose 160 mg/dL (70-110)
[2019-08-12] MEDS: Cefazolin 2 GM in 0.9% Normal Saline 100 ML IV ×3 (06:17→21:28)
[2019-08-12] MEDS: Enoxaparin 100 MG/ML Syringe 90 MG SC ×2 (06:18→17:13)
[2019-08-12] MEDS: hydrALAZINE 20 MG/ML Vial 10 MG IV (06:22)
[2019-08-12 07:09] LABS: Absolute Lymphocyte Count 0.47 X10^3/uL (0.83-4.51); Absolute Neutrophil Count 4.2 X10^3/uL (2.0-7.7); Basophil# 0.03 X10^3/uL; Basophil% 0.5 % (0-1); Eosinophil# 0.18 X10^3/uL; Eosinophils% 3.1 % (0-5); Hemoglobin 8.9 g/dL (13.0-16.5); Lymphocyte # 0.47 X10^3/ul (4.0); Mean Corpuscular Hgb 27.5 pg (27.0-32.0); Mean Corpuscular Volume 83.3 fL (80-94); Mean Platelet Vol. 9.6 fl (6.2-12.0); Monocyte# 0.97 X10^3/uL; Monocyte% 16.5 % (0-10); NRBC Flagged by Analyzer 0 % (0-5); Neutrophil # 4.17 X10^3/uL (2.7-7.7); POSITIVE DIFFERENTIAL YES; Platelet Count 178 K/mm3 (150-450); RBC Distribution Width CV 15.9 % (11.6-14.6); RBC Distribution Width SD 48.5 fl (35.1-43.9); Red Blood Count 3.24 M/mm3 (4.6-6.2); White Blood Count 5.9 K/mm3 (4.4-11.0)
[2019-08-12 07:17] LABS: Differential Indicated SCAN CRITERIA MET
[2019-08-12 07:30] LABS: Differential Comment SCANNED
[2019-08-12 07:37] LABS: Anion Gap 6 (5-15); BUN 34 mg/dL (7-18); BUN/Creat Ratio 27.6 RATIO (10-20); Calcium,Total 8.2 mg/dL (8.5-10.1); Chloride 100 mmol/L (98-107); Creatinine, Serum 1.23 mg/dL (0.70-1.30); EST Glomerular Filtration Rate 64 mL/min (>60); Est Glom Filt Rate - Afr Amer 77 mL/min (>60); Estimated Creatinine Clearance 71.27 ml/min; Glucose 138 mg/dL (74-106); Potassium 3.7 mmol/L (3.5-5.1); Sodium Level 130 mmol/L (136-145)
[2019-08-12] MEDS: Pantoprazole Sodium 40 MG Tablet PO (09:11)
[2019-08-12] MEDS: amLODIPine 10 MG Tablet PO (09:11)
[2019-08-12] MEDS: Furosemide 20 MG Tablet 60 MG PO (09:11)
[2019-08-12] MEDS: Clopidogrel Bisulfate 75 MG Tablet PO (09:11)
[2019-08-12] MEDS: Lisinopril 20 MG Tablet PO ×2 (09:12→21:21)
[2019-08-12] MEDS: Gabapentin 100 MG Capsule PO ×3 (09:12→17:13)
[2019-08-12] MEDS: Metoprolol Tartrate 25 MG Tablet PO ×2 (09:12→21:21)
[2019-08-12] MEDS: Aspirin E.C. 81 MG Tablet PO (09:12)
[2019-08-12] MEDS: Isosorbide Mononitrate 30 MG Tablet PO (09:12)
[2019-08-12] MEDS: oxyCODONE 5 MG Tablet PO ×3 (09:16→19:26)
[2019-08-12 09:36] LABS: Bedside Glucose 136 mg/dL (70-110)
[2019-08-12] MEDS: Insulin Lispro 100 UNIT/ML INSULN.PEN SC ×2 (11:48→17:13)
[2019-08-12 12:01] LABS: Bedside Glucose 182 mg/dL (70-110)
--- NOTE | 2019-08-12 12:40 | NURSING ---
Report called to Gaye DESAI for pt transfer
--- NOTE | 2019-08-12 14:15 | PN_ITS ---
Patient Problems: Active and Suspected Problems (Last Reviewed 01/16/19 @ 09:[address] Fredo Rodriguez MD) Severe sepsis (Acute) Suspected 2019 novel coronavirus infection (Acute) Hypokalemia (Acute) Reason for Visit: bacteremia Subjective: feeling well. some back pain making it difficult to sit completely up--this is chronic. Vitals/I&O's: Vital Signs Temp Pulse Resp BP Pulse Ox 36.9 C 61 18 172/77 H 98 08/12/19 09:10 08/12/19 11:00 08/12/19 09:10 08/12/19 09:12 08/12/19 09:10 Oxygen Flow Rate (L/min) 2 Oxygen Delivery Method Room Air Weight: 90.446 kg Body Mass Index (BMI) 26.3 Intake and Output for Last 24 Hours 08/10/19 08/11/19 08/12/19 23:59 23:59 23:59 Intake Total 1797.40 / 1797.40 930 / 1130 670 / 670 Output Total 1200 / 1200 275 / 475 1850 / 1850 Balance 597.40 / 597.40 655 / 655 -1180 / -1180 General: Alert, Cooperative, No apparent distress HEENT: Atraumatic, Normocephalic Oral: Moist Mucosa, No Gingival or Mucosal Lesions/ Ulcerations Neck: No Nodes, Thyroid Normal Size and Texture Lungs: Clear to auscultation, Normal air movement, No rhonchi, No wheeze, No rales Cardiovascular: Regular rate, Regular Rhythm, Normal S1, Normal S2, No murmurs Abdomen: Bowel Sounds Present, Soft, Non Tender, Non-Distended, No Hepato-spl enomegaly Extremities: No edema, No Calf Tenderness Microbiology Past 72 Hours 08/10/19 08:40 Blood Culture (Wb) - Left Hand Blood Culture - Preliminary No growth in 48 hours. 08/10/19 08:35 Blood Culture (Wb) - Anticubital Left Blood Culture - Preliminary No growth in 48 hours. 08/09/19 15:31 Sputum, Expectorated/Coughed Gram Stain - Final 08/09/19 15:31 Sputum, Expectorated/Coughed Respiratory Culture - Final Mixed normal respiratory monica. No Streptococcus pneumoniae, beta-hemolytic Streptococcus or Staphylococcus aureus isolated. 08/08/19 16:30 Urine, Clean Catch Urine Culture - Final Culture exhibits no growth. 08/08/19 15:30 Blood Culture (Wb) - Right Forearm Bacteria Detection (PCR) - Final Staphylococcus aureus 08/08/19 15:30 Blood Culture (Wb) - Right Forearm Blood Culture - Final Staphylococcus aureus 08/08/19 15:31 Blood Culture (Wb) - Left Forearm Blood Culture - Final Staphylococcus aureus 08/08/19 16:30 Urine, Clean Catch Streptococcus pneumoniae Antigen (M - Final 08/08/19 16:30 Urine, Clean Catch Legionella Antigen - Final Laboratory Results 08/08/19 19:50: COVID-19 (ORAL) Not Detected 08/11/19 17:08: POC Glucose 140 H 08/11/19 21:04: POC Glucose 160 H 08/12/19 06:15: POC Glucose 136 H 08/12/19 07:00: WBC 5.9, RBC 3.24 L, Hgb 8.9 L, Hct 27.0 L, MCV 83.3, MCH 27.5, MCHC 33.0, RDW Std Deviation 48.5 H, RDW Coeff of Dipti 15.9 H, Plt Count 178, MPV 9.6, Immature Gran % (Auto) 0.900, Neut % (Auto) 71.0 H, Lymph % (Auto) 8.0 L, [place] % (Auto) 16.5 H, Eos % (Auto) 3.1, Baso % (Auto) 0.5, Absolute Neuts (auto) 4.2, Absolute Lymphs (auto) 0.47 L, Nucleated RBC % 0, Differential Comment SCANNED 08/12/19 07:00: Sodium 130 L, Potassium 3.7, Chloride 100, Carbon Dioxide 24.0, Anion Gap 6, BUN 34 H, Creatinine 1.23, Estim Creat Clear Calc 71.27, Est GFR (MDRD) Af Amer 77, Est GFR (MDRD) Non-Af 64, BUN/Creatinine Ratio 27.6 H, Glucose 138 H, Calcium 8.2 L 08/12/19 11:47: POC Glucose 182 H Current Medications Acetaminophen (Tylenol) 650 mg PO Q6H PRN PRN PRN Reason: Pain Score 1-10/Temp > 100.7 F Last Admin: 08/11/19 21:19 Dose: 650 mg Documented by: Al Hydroxide/Mg Hydroxide (Mylanta Ii) 30 ml PO Q6H PRN PRN PRN Reason: Gastric Burning Albuterol Sulfate (Ventolin Aerosols) 2.5 mg INHALATION Q2H PRN PRN PRN Reason: Dyspnea, wheezing Last Admin: 08/09/19 16:16 Dose: 2.5 mg Documented by: Amlodipine Besylate (Norvasc) 10 mg PO DAILY [facility] Last Admin: 08/12/19 09:11 Dose: 10 mg Documented by: Aspirin (Ecotrin) 81 mg PO DAILY@0800 [facility] Last Admin: 08/12/19 09:12 Dose: 81 mg Documented by: Atorvastatin Calcium (Lipitor) 40 mg PO QHS [facility] Last Admin: 08/11/19 21:20 Dose: 40 mg Documented by: Clopidogrel Bisulfate (Plavix) 75 mg PO DAILY [facility] Last Admin: 08/12/19 09:11 Dose: 75 mg Documented by: Dextrose (D50w Syringe) 0 gm IV X1 PRN; Protocol PRN Reason: Hypoglycemia Enoxaparin Sodium (Lovenox) 90 mg SC Q12@0600,1800 [facility] Last Admin: 08/12/19 06:18 Dose: 90 mg Documented by: Furosemide (Lasix) 60 mg PO DAILY [facility] Last Admin: 08/12/19 09:11 Dose: 60 mg Documented by: Gabapentin (Neurontin) 100 mg PO TIDCM [facility] Last Admin: 08/12/19 11:50 Dose: 100 mg Documented by: Glucagon () 1 mg IM .X1 PRN PRN Reason: Hypoglycemia Guaifenesin (Robitussin) 20 ml PO Q4H PRN PRN PRN Reason: COUGH Hydralazine HCl (Apresoline Iv) 10 mg IV Q4H PRN PRN PRN Reason: SBP > 160 Last Admin: 08/12/19 06:22 Dose: 10 mg Documented by: Sodium Chloride () 250 mls @ 15 mls/hr IV .[id number] PRN PRN Reason: Saline Flush Sodium Chloride () 250 mls @ 15 mls/hr IV .[id number] PRN PRN Reason: Additional IVPB Infusion Cefazolin Sodium 2 gm/ Sodium (Chloride) 110 mls @ 150 mls/hr IV Q8 [facility] Last Infusion: 08/12/19 07:17 Dose: Infused Documented by: Insulin Human Lispro (Humalog Adampen (Bkc)) [address] [facility]; Protocol Last Admin: 08/12/19 11:48 Dose: 1 units Documented by: Isosorbide Mononitrate (Imdur) 30 mg PO DAILY [facility] Last Admin: 08/12/19 09:12 Dose: 30 mg Documented by: Lisinopril (Zestril) 20 mg PO BID [facility] Last Admin: 08/12/19 09:12 Dose: 20 mg Documented by: Magnesium Hydroxide (Milk Of Magnesia) 30 ml PO DAILY PRN PRN PRN Reason: Constipation Melatonin (Melatonin) 3 mg PO QHS PRN PRN PRN Reason: INSOMNIA Last Admin: 08/10/19 22:44 Dose: 3 mg Documented by: Metoprolol Tartrate (Lopressor (Beta Monse)) 25 mg PO BID [facility] Last Admin: 08/12/19 09:12 Dose: 25 mg Documented by: Morphine Sulfate () 2 mg IV Q3H PRN PRN PRN Reason: Pain Score 6-10/10 Nitroglycerin (Nitrostat) 0.4 mg SUBLINGUAL Q5M PRN PRN Reason: CARDIAC/CHEST PAIN Ondansetron HCl (Zofran) 4 mg IV Q8H PRN PRN PRN Reason: NAUSEA/VOMITING Last Admin: 08/08/19 18:56 Dose: 4 mg Documented by: Oxycodone HCl (Oxyir) 5 mg PO Q4H PRN PRN PRN Reason: Pain Score 4-5/10 Last Admin: 08/12/19 09:16 Dose: 5 mg Documented by: Pantoprazole Sodium (Protonix) 40 mg PO DAILY [facility] Last Admin: 08/12/19 09:11 Dose: 40 mg Documented by: Prochlorperazine Edisylate (Compazine Iv) 5 mg IV Q4H PRN PRN PRN Reason: Breakthrough Nausea/Vomiting Psyllium Hydrophilic Mucilloid (Metamucil) 1 packet PO DAILY PRN PRN PRN Reason: Constipation Senna/Docusate Sodium (Senokot-S, Chica-Colace) 2 tablet PO BID PRN PRN PRN Reason: Constipation Sodium Chloride () 10 - 40 ml IV UD PRN PRN Reason: SALINE FLUSH Last Admin: 08/11/19 06:35 Dose: 10 ml Documented by: Throat Lozenges (Cepacol Sore Throat Lozenge) 1 lozenge MUCOUS MEM Q2H PRN PRN PRN Reason: SORE THROAT STROKE Vital Signs/Narrative: Vital Signs Pulse 08/12/19 11:00 61 Medical Necessity - Tobacco Use Smoking Status: Never smoker Tobacco Use: Non-smoker Assessment/Plan All Active Problems (Last Reviewed 01/16/19 @ 09:[address] Fredo Rodriguez MD) Severe sepsis (Acute) Suspected 2018 novel coronavirus infection (Acute) Hypokalemia (Acute) Neuropathy (Acute) Ulcer of left foot (Acute) Charcot's joint, left ankle and foot (Acute) Infection of left foot (Acute) Osteomyelitis (Resolved) 1. severe sepsis: * 2/2 bacteremia and other source of infection * COVID-19 negative 2. Bacteremia * + on the * repeat blood cultures on the and * MSSA * MRI of T and L spine showed improvement * has had previous OM of foot on MRI from October * MRI foot negative for OM * TTE negative for vegetation * Discussed with infectious disease, patient will require long-term suppressive antibiotic treatment through the IV and then lifelong suppressive oral medications afterwards. * Plan is if cultures negative on the , then PICC and DC home with cefazolin. 3. VTE prophylaxis: LMWH Inpatient E&M: [id number] [facility] L2
--- NOTE | 2019-08-12 14:50 | PN.ID_ITS ---
Patient Problems: Active and Suspected Problems (Last Reviewed 01/16/19 @ 09:[address] Fredo Rodriguez MD) Severe sepsis (Acute) Suspected 2019 novel coronavirus infection (Acute) Hypokalemia (Acute) Subjective: Feeling ok, no fever, did have sweats last night. - Physical Exam Vitals/I&O's: Vital Signs Temp Pulse Resp BP Pulse Ox 98.5 F 61 18 172/77 H 98 08/12/19 09:10 08/12/19 11:00 08/12/19 09:10 08/12/19 09:12 08/12/19 09:10 Oxygen Flow Rate (L/min) 2 Oxygen Delivery Method Room Air Weight: 90.446 kg Body Mass Index (BMI) 26.3 Intake and Output for Last 24 Hours 08/10/19 08/11/19 08/12/19 23:59 23:59 23:59 Intake Total 1797.40 / 1797.40 930 / 1130 670 / 670 Output Total 1200 / 1200 275 / 475 1850 / 1850 Balance 597.40 / 597.40 655 / 655 -1180 / -1180 General: Alert, Cooperative, No apparent distress Lungs: Clear to auscultation, Normal air movement Cardiovascular: Regular rate, Regular Rhythm Abdomen: Soft, Non Tender, Non-Distended Skin: No rashes Microbiology Past 72 Hours 08/10/19 08:40 Blood Culture (Wb) - Left Hand Blood Culture - Preliminary No growth in 48 hours. 08/10/19 08:35 Blood Culture (Wb) - Anticubital Left Blood Culture - Preliminary No growth in 48 hours. 08/09/19 15:31 Sputum, Expectorated/Coughed Gram Stain - Final 08/09/19 15:31 Sputum, Expectorated/Coughed Respiratory Culture - Final Mixed normal respiratory monica. No Streptococcus pneumoniae, beta-hemolytic Streptococcus or Staphylococcus aureus isolated. 08/08/19 16:30 Urine, Clean Catch Urine Culture - Final Culture exhibits no growth. 08/08/19 15:30 Blood Culture (Wb) - Right Forearm Bacteria Detection (PCR) - Final Staphylococcus aureus 08/08/19 15:30 Blood Culture (Wb) - Right Forearm Blood Culture - Final Staphylococcus aureus 08/08/19 15:31 Blood Culture (Wb) - Left Forearm Blood Culture - Final Staphylococcus aureus 08/08/19 16:30 Urine, Clean Catch Streptococcus pneumoniae Antigen (M - Final 08/08/19 16:30 Urine, Clean Catch Legionella Antigen - Final Laboratory Results 08/08/19 19:50: COVID-19 (ORAL) Not Detected 08/11/19 17:08: POC Glucose 140 H 08/11/19 21:04: POC Glucose 160 H 08/12/19 06:15: POC Glucose 136 H 08/12/19 07:00: WBC 5.9, RBC 3.24 L, Hgb 8.9 L, Hct 27.0 L, MCV 83.3, MCH 27.5, MCHC 33.0, RDW Std Deviation 48.5 H, RDW Coeff of Dipti 15.9 H, Plt Count 178, MPV 9.6, Immature Gran % (Auto) 0.900, Neut % (Auto) 71.0 H, Lymph % (Auto) 8.0 L, [place] % (Auto) 16.5 H, Eos % (Auto) 3.1, Baso % (Auto) 0.5, Absolute Neuts (auto) 4.2, Absolute Lymphs (auto) 0.47 L, Nucleated RBC % 0, Differential Comment SCANNED 08/12/19 07:00: Sodium 130 L, Potassium 3.7, Chloride 100, Carbon Dioxide 24.0, Anion Gap 6, BUN 34 H, Creatinine 1.23, Estim Creat Clear Calc 71.27, Est GFR (MDRD) Af Amer 77, Est GFR (MDRD) Non-Af 64, BUN/Creatinine Ratio 27.6 H, Glucose 138 H, Calcium 8.2 L 08/12/19 11:47: POC Glucose 182 H Current Medications Acetaminophen (Tylenol) 650 mg PO Q6H PRN PRN PRN Reason: Pain Score 1-10/Temp > 100.7 F Last Admin: 08/11/19 21:19 Dose: 650 mg Documented by: Al Hydroxide/Mg Hydroxide (Mylanta Ii) 30 ml PO Q6H PRN PRN PRN Reason: Gastric Burning Albuterol Sulfate (Ventolin Aerosols) 2.5 mg INHALATION Q2H PRN PRN PRN Reason: Dyspnea, wheezing Last Admin: 08/09/19 16:16 Dose: 2.5 mg Documented by: Amlodipine Besylate (Norvasc) 10 mg PO DAILY [facility] Last Admin: 08/12/19 09:11 Dose: 10 mg Documented by: Aspirin (Ecotrin) 81 mg PO DAILY@0800 [facility] Last Admin: 08/12/19 09:12 Dose: 81 mg Documented by: Atorvastatin Calcium (Lipitor) 40 mg PO QHS [facility] Last Admin: 08/11/19 21:20 Dose: 40 mg Documented by: Clopidogrel Bisulfate (Plavix) 75 mg PO DAILY [facility] Last Admin: 08/12/19 09:11 Dose: 75 mg Documented by: Dextrose (D50w Syringe) 0 gm IV X1 PRN; Protocol PRN Reason: Hypoglycemia Enoxaparin Sodium (Lovenox) 90 mg SC Q12@0600,1800 [facility] Last Admin: 08/12/19 06:18 Dose: 90 mg Documented by: Furosemide (Lasix) 60 mg PO DAILY [facility] Last Admin: 08/12/19 09:11 Dose: 60 mg Documented by: Gabapentin (Neurontin) 100 mg PO TIDCM [facility] Last Admin: 08/12/19 11:50 Dose: 100 mg Documented by: Glucagon () 1 mg IM .X1 PRN PRN Reason: Hypoglycemia Guaifenesin (Robitussin) 20 ml PO Q4H PRN PRN PRN Reason: COUGH Hydralazine HCl (Apresoline Iv) 10 mg IV Q4H PRN PRN PRN Reason: SBP > 160 Last Admin: 08/12/19 06:22 Dose: 10 mg Documented by: Sodium Chloride () 250 mls @ 15 mls/hr IV .[id number] PRN PRN Reason: Saline Flush Sodium Chloride () 250 mls @ 15 mls/hr IV .[id number] PRN PRN Reason: Additional IVPB Infusion Cefazolin Sodium 2 gm/ Sodium (Chloride) 110 mls @ 150 mls/hr IV Q8 [facility] Last Infusion: 08/12/19 07:17 Dose: Infused Documented by: Insulin Human Lispro (Humalog Kwikpen (Bkc)) 0 unit SC ACHS [facility]; Protocol Last Admin: 08/12/19 11:48 Dose: 1 units Documented by: Isosorbide Mononitrate (Imdur) 30 mg PO DAILY [facility] Last Admin: 08/12/19 09:12 Dose: 30 mg Documented by: Lisinopril (Zestril) 20 mg PO BID [facility] Last Admin: 08/12/19 09:12 Dose: 20 mg Documented by: Magnesium Hydroxide (Milk Of Magnesia) 30 ml PO DAILY PRN PRN PRN Reason: Constipation Melatonin (Melatonin) 3 mg PO QHS PRN PRN PRN Reason: INSOMNIA Last Admin: 08/10/19 22:44 Dose: 3 mg Documented by: Metoprolol Tartrate (Lopressor (Beta Monse)) 25 mg PO BID [facility] Last Admin: 08/12/19 09:12 Dose: 25 mg Documented by: Morphine Sulfate () 2 mg IV Q3H PRN PRN PRN Reason: Pain Score 6-10/10 Nitroglycerin (Nitrostat) 0.4 mg SUBLINGUAL Q5M PRN PRN Reason: CARDIAC/CHEST PAIN Ondansetron HCl (Zofran) 4 mg IV Q8H PRN PRN PRN Reason: NAUSEA/VOMITING Last Admin: 08/08/19 18:56 Dose: 4 mg Documented by: Oxycodone HCl (Oxyir) 5 mg PO Q4H PRN PRN PRN Reason: Pain Score 4-5/10 Last Admin: 08/12/19 09:16 Dose: 5 mg Documented by: Pantoprazole Sodium (Protonix) 40 mg PO DAILY [facility] Last Admin: 08/12/19 09:11 Dose: 40 mg Documented by: Prochlorperazine Edisylate (Compazine Iv) 5 mg IV Q4H PRN PRN PRN Reason: Breakthrough Nausea/Vomiting Psyllium Hydrophilic Mucilloid (Metamucil) 1 packet PO DAILY PRN PRN PRN Reason: Constipation Senna/Docusate Sodium (Senokot-S, Chica-Colace) 2 tablet PO BID PRN PRN PRN Reason: Constipation Sodium Chloride () 10 - 40 ml IV UD PRN PRN Reason: SALINE FLUSH Last Admin: 08/11/19 06:35 Dose: 10 ml Documented by: Throat Lozenges (Cepacol Sore Throat Lozenge) 1 lozenge MUCOUS MEM Q2H PRN PRN PRN Reason: SORE THROAT Medical Necessity - Tobacco Use Smoking Status: Never smoker Tobacco Use: Non-smoker Route of nutrition/ use of supplements: [] Nutritional Intake: [] IV Site: [] Zhu Catheter: [] - Assessment/Plan Antibiotics: [] Assessment/Plan: [] Active and Suspected Problems (Last Reviewed 01/16/19 @ 09:[address] Fredo Rodriguez MD) Severe sepsis (Acute) Suspected 2018 novel coronavirus infection (Acute) Hypokalemia (Acute) MSSA bacteremia - recurrent infection. Had spine surgery with hardware placement at [facility] 02/2019, followed with Dr. Maurer with ID. After course of iv abx completed , changed to 3 month course of po keflex 500mg bid for suppression. Became bacteremia several weeks after that course stopped. No sign of new infection on MRI of spine, MRI of foot, or TTE. Repeat bcx remains neg. Cont cefazolin, plan will be for discharge on iv cefazolin for 6 week course with stop date 09/21/19, then indefinite po abx. COVID neg, overall low suspicion for infection, will stop isolation. Wrote rx for labs and abx. Picc in AM. Will follow, d/w Dr. Gaitan.
--- NOTE | 2019-08-12 15:21 | NURSING ---
wound photo: left foot
--- NOTE | 2019-08-12 15:49 | NURSING ---
This RN taking over care at this time
--- NOTE | 2019-08-12 16:33 | CASEMGMT ---
Per Dr. Yuan, pt to be sent home on IV antibx at discharge, Cefazolin 2gm q8hrs. Pt has had IV antibx set up before through [facility]. Pt is current with [facility] for wound care. Referral faxed to [facility]. Call back from Gaye at [facility] and she states that pt is covered at 100% and is inquiring about [facility] company. Gaye's contact info: [phone] Call to Gaye and she is updated that pt current with [facility]. Gaye just requests to be notified of pt discharge plan for tomorrow at that time. Call to [facility] to update on pt need for IV antibx at this time and Clair voices understanding at this time. H&P, Cefazolin order, WENDI, facesheet, and clinicals faxed to [facility] at this time. Clair at [facility] is aware that pt to be discharged tomorrow, voices understanding. PICC line insertion notes to be faxed in am once obtained. Pilar DESAI CM
[2019-08-12 16:51] LABS: Bedside Glucose 168 mg/dL (70-110)
[2019-08-12] MEDS: Atorvastatin Calcium 40 MG Tablet PO (21:21)
[2019-08-12] MEDS: 0.9% Saline Lock 10 ML Syringe IV (21:26)
[2019-08-12 21:31] LABS: Bedside Glucose 120 mg/dL (70-110)
[2019-08-13] VITALS (8 sets, daily range): BP systolic 165–177; BP diastolic 73–79; PULSE 59–71; RESP 16–20; TEMP 36.8–36.9; O2SAT 93–96
[2019-08-13] MEDS: hydrALAZINE 20 MG/ML Vial 10 MG IV (03:07)
[2019-08-13] MEDS: 0.9% Saline Lock 10 ML Syringe IV ×3 (03:07→13:21)
[2019-08-13] MEDS: oxyCODONE 5 MG Tablet PO ×3 (03:07→12:09)
[2019-08-13] MEDS: Enoxaparin 100 MG/ML Syringe 90 MG SC (06:32)
[2019-08-13] MEDS: Cefazolin 2 GM in 0.9% Normal Saline 100 ML IV ×2 (06:32→13:19)
[2019-08-13 06:45] LABS: Bedside Glucose 127 mg/dL (70-110)
[2019-08-13] MEDS: Gabapentin 100 MG Capsule PO ×2 (07:59→12:09)
[2019-08-13] MEDS: Aspirin E.C. 81 MG Tablet PO (07:59)
--- NOTE | 2019-08-13 08:45 | PCM.DC ---
- Discharge Diagnoses Current Active Problems: Current Active and Chronic Problems (Last Reviewed 01/16/19 @ 09:[address] Fredo Rodriguez MD) Severe sepsis (Acute) Suspected 2018 novel coronavirus infection (Acute) Hypokalemia (Acute) Diabetes mellitus, type II (Chronic) You will use the following diet at home:: Cardiac Allergies/Adverse Reactions: Allergies Penicillins [PCN] Allergy (Verified 08/08/19 14:26) Unknown Medications to take at Discharge atorvastatin 80 mg tablet 40 mg PO QHS 07/24/18 pantoprazole 40 mg tablet,delayed release 40 mg PO DAILY 07/24/18 Aspirin E.C. [Ecotrin] 81 mg PO DAILY 09/09/18 Lisinopril [Zestril] 20 mg PO BID 09/09/18 isosorbide mononitrate 30 mg tablet,extended release 24 hr 30 mg PO DAILY #90 tab 10/17/18 metoprolol tartrate 25 mg tablet 25 mg PO BID #180 tab 10/17/18 nitroglycerin 0.4 mg sublingual tablet 0.4 mg SUBLINGUAL Q5M PRN #25 tab 10/17/18 amlodipine 10 mg tablet 10 mg PO DAILY #90 tab 01/16/19 furosemide 40 mg tablet 60 mg PO 1630 tab 01/16/19 glimepiride 2 mg tablet 2 mg PO DAILY tab 01/16/19 multivitamin 1 tab PO DAILY 01/16/19 Clopidogrel Bisulfate [Plavix] 75 mg PO DAILY 08/08/19 Gabapentin [Neurontin] 100 mg PO TID 08/08/19 Cefazolin 2 gm IV Q8 40 Days #120 vial 08/12/19 Oxycodone [Oxyir] 5 mg PO Q6H PRN 3 Days #12 tablet 08/13/19 The following prescriptions were given: Cefazolin 2 gm IV Q8 40 Days #120 vial Prescription Printed Oxycodone [Oxyir] 5 mg PO Q6H PRN 3 Days #12 tablet PRN Reason: Pain Score 4-5/10 Transmission Status: Sent to [id number] Primary Care Physician: Delgado Smith [Primary Care Provider] - Within 2 Weeks Test Results: Test results from this visit will be discussed in further detail at your follow-up appointment, if applicable. Proposed Discharge Date: 08/13/19
--- NOTE | 2019-08-13 08:47 | DS.PCM_ITS ---
Discharge Date and Diagnosis - Problem List Patient Problems: Active and Suspected Problems (Last Reviewed 01/16/19 @ 09:[address] Fredo Rodriguez MD) Severe sepsis (Acute) Hypokalemia (Acute) Bacteremia (Acute) Date of Admission: 08/08/19 Date of Discharge: 08/13/19 - Primary Discharge Diagnosis Active and Suspected Problems (Last Reviewed 01/16/19 @ 09:[address] Fredo Rodriguez MD) 1. severe sepsis: * 2/2 bacteremia and other source of infection * COVID-19 negative 2. Bacteremia * + on the * repeat blood cultures on the and * MSSA * MRI of T and L spine showed improvement * has had previous OM of foot on MRI from October * MRI foot negative for OM * TTE negative for vegetation * Discussed with infectious disease, patient will require long-term suppressive antibiotic treatment through the IV and then lifelong suppressive oral medications afterwards. * Plan is if cultures negative on the , then PICC and DC home with cefazolin. - Secondary Discharge Diagnosis Chronic Problems (Last Reviewed 01/16/19 @ 09:[address] Fredo Rodriguez MD) PAD (peripheral artery disease) (Chronic) Diabetes mellitus, type II (Chronic) 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[place] coronary artery w/angina pectoris (Chronic) CABG x 3 WALL-LAD, Free MAIK-OM, SVG-RPDA 06/12/18 Chronic diastolic (congestive) heart failure (Chronic) HLD (hyperlipidemia) (Chronic) MSSA bacteremia (Chronic) Sinus bradycardia (Chronic) Atherosclerosis of coronary artery without angina pectoris (Chronic) CABG x 3 WALL-LAD, Free MAIK-OM, SVG-RPDA 06/12/18 H/O coronary artery bypass surgery (Chronic 06/12/18) CABG x 3 WALL-LAD, Free MAIK-OM, SVG-RPDA 06/12/18 Essential hypertension (Chronic) Hospital Course and Treatment Imaging Results: Clinical Impression(s) from Imaging Studies Chest X-Ray 08/08/19 15:55 IMPRESSION: Normal x-ray examination of the chest. Electronically Signed: Shiva Red MD at 16:36 EDT , Service support , Chest X-Ray 08/09/19 05:55 IMPRESSION: Stable chest with central vascular congestion. No focal lung consolidative changes or significant interval change. Electronically Signed: Ramoprasanna Epi, at 7:59 EDT Tel , Service support , Lumbar Spine MRI 08/09/19 08:09 IMPRESSION: 1. Improvement of the of bone edema in the included portions of the lower T11 vertebral body. 2. Old anterior wedging of the T12 and L1 vertebral bodies are unchanged. 3. Small right L5-S1 posterior paramedian disc protrusion without suspicious displacement of the right S1 nerve root sleeve. 4. No MRI evidence of lumbar extruded disc fragment or spinal stenosis. 5. No MRI evidence of discitis or vertebral body osteomyelitis of the lumbar spine. Electronically Signed: Eduardo Ferrer MD at 12:41 EDT , Service support , Thoracic Spine MRI 08/09/19 08:09 IMPRESSION: 1. No MRI evidence of suspicious osteomyelitis or epidural abscess despite the absence of IV contrast. 2. Interval improvement of the discitis and vertebral body osteomyelitis at T10-T11 disc level with interval posterior decompression and fusion using pedicular screws and rods and interval placement of disc implants at the T10-T11 disc level. 3. Old anterior wedge compression fractures of the upper T7 and T8 vertebral bodies are unchanged. 4. Mild degenerative anterolisthesis of C7 on T1 with disc space height narrowing are unchanged. Electronically Signed: Eduardo Ferrer MD at 12:31 EDT , Service support , Lower Extremity MRI 08/10/19 12:36 IMPRESSION: Charcot foot but no MR evidence of osteomyelitis. Electronically Signed: Jacobo Torrez MD at 15:15 EDT Tel , Service support , Consultations 04/26/20 14:31 Consult: Onc/Wound/staff counselor Routine Comment: Reason for Consult:: 2 healing wounds to left foot, sees wound center weekly Sacha Yuan MD: ID Operations: - - Incision, drainage and debridement of left foot down to bone with partial removal of the third toe. Procedures: 2-D Echocardiogram - Left ventricular systolic function is normal. The estimated ejection fraction is 60 %. The left atrium is mildly enlarged. There is moderate mitral annular calcification. Extension of the mitral annular calcification onto the mitral valve leaflet. Anterior leaflet diffuse mitral valve thickening. Trivial mitral valve insufficiency. Mild tricuspid valve insufficiency. Mild focal aortic valve calcification. Trivial pulmonic valve insufficiency. Right ventricular systolic pressure estimated to be 43 mmHg. Unable to assess diastolic dysfunction., PICC line placement Summary of Care Provided: The patient is a 59 year old M presents with shortness of breath myalgias and fever. Patient was brought in severe sepsis. Concern was for COVID-19 and testing was sent out but was not sent out initially and was sent out on the and came back on the is negative. Patient was found to be bacteremic with methicillin sensitive staph aureus. Patient had MRI of his lumbar and thoracic spine that showed improvement in MRI of his foot due to Charcot deformity that showed no osteomyelitis. Patient had been on oral suppressive antibiotics prior to this infection but it stopped 2 weeks prior and then symptoms began again. Discussed with infectious disease who feel the source of his infection is from his back and patient will have a PICC line placed today and then he will be on 6 weeks of IV cefazolin. Afterwards, patient will need to be on oral suppressive antibiotics perhaps lifelong. , Patient blood pressure has been elevated. It ranged from the 150s to 170s. Patient is already on metoprolol, amlodipine, lisinopril. Recommend he follow- up with his primary care physician for further management if further modifications are necessary. [] Patient Problems: Active and Suspected Problems (Last Reviewed 01/16/19 @ 09:[address] Fredo Rodriguez MD) Severe sepsis (Acute) Hypokalemia (Acute) Bacteremia (Acute) - Physical Exam Vitals/I&O's: Vital Signs Temp Pulse Resp BP Pulse Ox 36.9 C 67 20 H 177/76 H 93 08/13/19 03:00 08/13/19 06:59 08/13/19 03:00 08/13/19 03:07 08/13/19 07:02 Oxygen Flow Rate (L/min) 2 Oxygen Delivery Method Room Air Weight: 90.446 kg Body Mass Index (BMI) 26.3 Intake and Output for Last 24 Hours 08/11/19 08/12/19 08/13/19 23:59 23:59 23:59 Intake Total 930 / 1130 1130 / 1130 110 / 110 Output Total 275 / 475 1850 / 1850 Balance 655 / 655 -720 / -720 110 / 110 General: Alert, No apparent distress HEENT: Atraumatic, Normocephalic Oral: Moist Mucosa, No Gingival or Mucosal Lesions/ Ulcerations Psych/Mental Status: Normal Affect, Appropriate Microbiology Past 72 Hours 08/11/19 09:54 Blood Culture (Wb) - Anticubital Left Blood Culture - Preliminary No growth in 48 hours. 08/10/19 08:40 Blood Culture (Wb) - Left Hand Blood Culture - Preliminary No growth in 48 hours. 08/10/19 08:35 Blood Culture (Wb) - Anticubital Left Blood Culture - Preliminary No growth in 48 hours. 08/09/19 15:31 Sputum, Expectorated/Coughed Gram Stain - Final 08/09/19 15:31 Sputum, Expectorated/Coughed Respiratory Culture - Final Mixed normal respiratory monica. No Streptococcus pneumoniae, beta-hemolytic Streptococcus or Staphylococcus aureus isolated. 08/08/19 16:30 Urine, Clean Catch Urine Culture - Final Culture exhibits no growth. 08/08/19 15:30 Blood Culture (Wb) - Right Forearm Bacteria Detection (PCR) - Final Staphylococcus aureus 08/08/19 15:30 Blood Culture (Wb) - Right Forearm Blood Culture - Final Staphylococcus aureus 08/08/19 15:31 Blood Culture (Wb) - Left Forearm Blood Culture - Final Staphylococcus aureus Laboratory Results 08/08/19 19:50: COVID-19 (ORAL) Not Detected 08/12/19 06:15: POC Glucose 136 H 08/12/19 11:47: POC Glucose 182 H 08/12/19 16:43: POC Glucose 168 H 08/12/19 21:16: POC Glucose 120 H 08/13/19 06:29: POC Glucose 127 H Current Medications Acetaminophen (Tylenol) 650 mg PO Q6H PRN PRN PRN Reason: Pain Score 1-10/Temp > 100.7 F Last Admin: 08/11/19 21:19 Dose: 650 mg Documented by: Al Hydroxide/Mg Hydroxide (Mylanta Ii) 30 ml PO Q6H PRN PRN PRN Reason: Gastric Burning Albuterol Sulfate (Ventolin Aerosols) 2.5 mg INHALATION Q2H PRN PRN PRN Reason: Dyspnea, wheezing Last Admin: 08/09/19 16:16 Dose: 2.5 mg Documented by: Amlodipine Besylate (Norvasc) 10 mg PO DAILY [facility] Last Admin: 08/12/19 09:11 Dose: 10 mg Documented by: Aspirin (Ecotrin) 81 mg PO DAILY@0800 [facility] Last Admin: 08/13/19 07:59 Dose: 81 mg Documented by: Atorvastatin Calcium (Lipitor) 40 mg PO QHS [facility] Last Admin: 08/12/19 21:21 Dose: 40 mg Documented by: Clopidogrel Bisulfate (Plavix) 75 mg PO DAILY [facility] Last Admin: 08/12/19 09:11 Dose: 75 mg Documented by: Dextrose (D50w Syringe) 0 gm IV X1 PRN; Protocol PRN Reason: Hypoglycemia Enoxaparin Sodium (Lovenox) 90 mg SC Q12@0600,1800 [facility] Last Admin: 08/13/19 06:32 Dose: 90 mg Documented by: Furosemide (Lasix) 60 mg PO DAILY [facility] Last Admin: 08/12/19 09:11 Dose: 60 mg Documented by: Gabapentin (Neurontin) 100 mg PO TIDCM [facility] Last Admin: 08/13/19 07:59 Dose: 100 mg Documented by: Glucagon () 1 mg IM .X1 PRN PRN Reason: Hypoglycemia Guaifenesin (Robitussin) 20 ml PO Q4H PRN PRN PRN Reason: COUGH Hydralazine HCl (Apresoline Iv) 10 mg IV Q4H PRN PRN PRN Reason: SBP > 160 Last Admin: 08/13/19 03:07 Dose: 10 mg Documented by: Sodium Chloride () 250 mls @ 15 mls/hr IV .[id number] PRN PRN Reason: Saline Flush Sodium Chloride () 250 mls @ 15 mls/hr IV .[id number] PRN PRN Reason: Additional IVPB Infusion Cefazolin Sodium 2 gm/ Sodium (Chloride) 110 mls @ 150 mls/hr IV Q8 [facility] Last Infusion: 08/13/19 07:32 Dose: Infused Documented by: Insulin Human Lispro (Humalog Kwikpen (Bkc)) 0 unit SC [facility]; Protocol Last Admin: 08/13/19 06:34 Dose: Not Given Documented by: Isosorbide Mononitrate (Imdur) 30 mg PO DAILY [facility] Last Admin: 08/12/19 09:12 Dose: 30 mg Documented by: Lisinopril (Zestril) 20 mg PO BID [facility] Last Admin: 08/12/19 21:21 Dose: 20 mg Documented by: Magnesium Hydroxide (Milk Of Magnesia) 30 ml PO DAILY PRN PRN PRN Reason: Constipation Melatonin (Melatonin) 3 mg PO QHS PRN PRN PRN Reason: INSOMNIA Last Admin: 08/10/19 22:44 Dose: 3 mg Documented by: Metoprolol Tartrate (Lopressor (Beta Monse)) 25 mg PO BID [facility] Last Admin: 08/12/19 21:21 Dose: 25 mg Documented by: Morphine Sulfate () 2 mg IV Q3H PRN PRN PRN Reason: Pain Score 6-10/10 Nitroglycerin (Nitrostat) 0.4 mg SUBLINGUAL Q5M PRN PRN Reason: CARDIAC/CHEST PAIN Ondansetron HCl (Zofran) 4 mg IV Q8H PRN PRN PRN Reason: NAUSEA/VOMITING Last Admin: 08/08/19 18:56 Dose: 4 mg Documented by: Oxycodone HCl (Oxyir) 5 mg PO Q4H PRN PRN PRN Reason: Pain Score 4-5/10 Last Admin: 08/13/19 07:58 Dose: 5 mg Documented by: Pantoprazole Sodium (Protonix) 40 mg PO DAILY [facility] Last Admin: 08/12/19 09:11 Dose: 40 mg Documented by: Prochlorperazine Edisylate (Compazine Iv) 5 mg IV Q4H PRN PRN PRN Reason: Breakthrough Nausea/Vomiting Psyllium Hydrophilic Mucilloid (Metamucil) 1 packet PO DAILY PRN PRN PRN Reason: Constipation Senna/Docusate Sodium (Senokot-S, Chica-Colace) 2 tablet PO BID PRN PRN PRN Reason: Constipation Sodium Chloride () 10 - 40 ml IV UD PRN PRN Reason: SALINE FLUSH Last Admin: 08/13/19 06:31 Dose: 10 ml Documented by: Throat Lozenges (Cepacol Sore Throat Lozenge) 1 lozenge MUCOUS MEM Q2H PRN PRN PRN Reason: SORE THROAT Discharge Diet: Low fat/ Low Cholesterol Discharge Activity: Return to Normal Activity Home Medications: Medications to take at Discharge atorvastatin 80 mg tablet 40 mg PO QHS 07/24/18 pantoprazole 40 mg tablet,delayed release 40 mg PO DAILY 07/24/18 Aspirin E.C. [Ecotrin] 81 mg PO DAILY 09/09/18 Lisinopril [Zestril] 20 mg PO BID 09/09/18 isosorbide mononitrate 30 mg tablet,extended release 24 hr 30 mg PO DAILY #90 tab 10/17/18 metoprolol tartrate 25 mg tablet 25 mg PO BID #180 tab 10/17/18 nitroglycerin 0.4 mg sublingual tablet 0.4 mg SUBLINGUAL Q5M PRN #25 tab 10/17/18 amlodipine 10 mg tablet 10 mg PO DAILY #90 tab 01/16/19 furosemide 40 mg tablet 60 mg PO 1630 tab 01/16/19 glimepiride 2 mg tablet 2 mg PO DAILY tab 01/16/19 multivitamin 1 tab PO DAILY 01/16/19 Clopidogrel Bisulfate [Plavix] 75 mg PO DAILY 08/08/19 Gabapentin [Neurontin] 100 mg PO TID 08/08/19 Cefazolin 2 gm IV Q8 40 Days #120 vial 08/12/19 Oxycodone [Oxyir] 5 mg PO Q6H PRN 3 Days #12 tablet 08/13/19 Following Prescrptions Were Given to Patient: Cefazolin 2 gm IV Q8 40 Days #120 vial Prescription Printed Oxycodone [Oxyir] 5 mg PO Q6H PRN 3 Days #12 tablet PRN Reason: Pain Score 4-5/10 Transmission Status: Sent to [facility] Primary Care Physician: Delgado Smith [Primary Care Provider] - Within 2 Weeks Disposition: Home with Home Health Minutes spent on discharge:: 32 Patient Condition:: Good Medical Necessity - Tobacco Use Smoking Status: Never smoker Tobacco Use: Non-smoker Meaningful Use Info Meaningful Use Diagnoses (Choose all that apply): None applicable Inpatient E&M: 30875 Disch Hosp
[2019-08-13] MEDS: Isosorbide Mononitrate 30 MG Tablet PO (09:22)
[2019-08-13] MEDS: amLODIPine 10 MG Tablet PO (09:22)
[2019-08-13] MEDS: Metoprolol Tartrate 25 MG Tablet PO (09:22)
[2019-08-13] MEDS: Furosemide 20 MG Tablet 60 MG PO (09:22)
[2019-08-13] MEDS: Pantoprazole Sodium 40 MG Tablet PO (09:22)
[2019-08-13] MEDS: Lisinopril 20 MG Tablet PO (09:22)
[2019-08-13] MEDS: Clopidogrel Bisulfate 75 MG Tablet PO (09:22)
--- NOTE | 2019-08-13 09:49 | CASEMGMT ---
Addendum entered by Mirta Carter 08/13/19 13:30: Picc insertion documentation faxed to [facility] at this time. PICC insertion documentation, D/C summ/instructions, and COVID transfer tool faxed to [facility] at this time. Call to Gaye at [facility] to notify that pt's 2nd dose of Cefazolin is infusing at this time and that pt will be discharged once infused. Pilar DESAI CM Original Note: Pt does not have PICC line yet as they were waiting on blood cultures to be resulted and according to Ioana DESAI, blood cx's are now neg and she is calling for PICC line placement at this time. Pt will get the 1400 dose of Cefazolin here and then be discharged to have evening dose at home. Call to Gaye at [facility] to notify of same, voices understanding. Call to [facility] to notify of same as well at this time, voices understanding. This [facility] to fax PICC line insertion and COVID transfer communication tool to [facility] when obtained. Pt updated on all at this time, voices understanding. Pilar DESAI CM
--- NOTE | 2019-08-13 10:29 | PCM.PN.ID ---
Patient Problems: Active and Suspected Problems (Last Reviewed 01/16/19 @ 09:[address] Fredo Rodriguez MD) Bacteremia (Acute) Severe sepsis (Acute) Hypokalemia (Acute) Subjective: Feeling well, picc today, no fever. Back pain stable. - Physical Exam Vitals/I&O's: Vital Signs Temp Pulse Resp BP Pulse Ox 98.2 F 71 16 165/79 H 96 08/13/19 09:00 08/13/19 09:22 08/13/19 09:00 08/13/19 09:00 08/13/19 09:00 Oxygen Flow Rate (L/min) 2 Oxygen Delivery Method Room Air Weight: 90.446 kg Body Mass Index (BMI) 26.3 Intake and Output for Last 24 Hours 08/11/19 08/12/19 08/13/19 23:59 23:59 23:59 Intake Total 930 / 1130 1130 / 1130 110 / 110 Output Total 275 / 475 1850 / 1850 Balance 655 / 655 -720 / -720 110 / 110 General: Alert, Cooperative, No apparent distress Lungs: Clear to auscultation, Normal air movement Cardiovascular: Regular rate, Regular Rhythm Abdomen: Soft, Non Tender, Non-Distended Skin: No rashes Musculoskeletal: - - no spine tenderness Microbiology Past 72 Hours 08/11/19 09:54 Blood Culture (Wb) - Anticubital Left Blood Culture - Preliminary No growth in 48 hours. 08/10/19 08:40 Blood Culture (Wb) - Left Hand Blood Culture - Preliminary No growth in 48 hours. 08/10/19 08:35 Blood Culture (Wb) - Anticubital Left Blood Culture - Preliminary No growth in 48 hours. 08/09/19 15:31 Sputum, Expectorated/Coughed Gram Stain - Final 08/09/19 15:31 Sputum, Expectorated/Coughed Respiratory Culture - Final Mixed normal respiratory monica. No Streptococcus pneumoniae, beta-hemolytic Streptococcus or Staphylococcus aureus isolated. 08/08/19 16:30 Urine, Clean Catch Urine Culture - Final Culture exhibits no growth. 08/08/19 15:30 Blood Culture (Wb) - Right Forearm Bacteria Detection (PCR) - Final Staphylococcus aureus 08/08/19 15:30 Blood Culture (Wb) - Right Forearm Blood Culture - Final Staphylococcus aureus 08/08/19 15:31 Blood Culture (Wb) - Left Forearm Blood Culture - Final Staphylococcus aureus Laboratory Results 08/12/19 11:47: POC Glucose 182 H 08/12/19 16:43: POC Glucose 168 H 08/12/19 21:16: POC Glucose 120 H 08/13/19 06:29: POC Glucose 127 H Current Medications Acetaminophen (Tylenol) 650 mg PO Q6H PRN PRN PRN Reason: Pain Score 1-10/Temp > 100.7 F Last Admin: 08/11/19 21:19 Dose: 650 mg Documented by: Al Hydroxide/Mg Hydroxide (Mylanta Ii) 30 ml PO Q6H PRN PRN PRN Reason: Gastric Burning Albuterol Sulfate (Ventolin Aerosols) 2.5 mg INHALATION Q2H PRN PRN PRN Reason: Dyspnea, wheezing Last Admin: 08/09/19 16:16 Dose: 2.5 mg Documented by: Amlodipine Besylate (Norvasc) 10 mg PO DAILY [facility] Last Admin: 08/13/19 09:22 Dose: 10 mg Documented by: Aspirin (Ecotrin) 81 mg PO DAILY@0800 [facility] Last Admin: 08/13/19 07:59 Dose: 81 mg Documented by: Atorvastatin Calcium (Lipitor) 40 mg PO QHS [facility] Last Admin: 08/12/19 21:21 Dose: 40 mg Documented by: Clopidogrel Bisulfate (Plavix) 75 mg PO DAILY [facility] Last Admin: 08/13/19 09:22 Dose: 75 mg Documented by: Dextrose (D50w Syringe) 0 gm IV X1 PRN; Protocol PRN Reason: Hypoglycemia Enoxaparin Sodium (Lovenox) 90 mg SC Q12@0600,1800 [facility] Last Admin: 08/13/19 06:32 Dose: 90 mg Documented by: Furosemide (Lasix) 60 mg PO DAILY [facility] Last Admin: 08/13/19 09:22 Dose: 60 mg Documented by: Gabapentin (Neurontin) 100 mg PO TIDCM [facility] Last Admin: 08/13/19 07:59 Dose: 100 mg Documented by: Glucagon () 1 mg IM .X1 PRN PRN Reason: Hypoglycemia Guaifenesin (Robitussin) 20 ml PO Q4H PRN PRN PRN Reason: COUGH Hydralazine HCl (Apresoline Iv) 10 mg IV Q4H PRN PRN PRN Reason: SBP > 160 Last Admin: 08/13/19 03:07 Dose: 10 mg Documented by: Sodium Chloride () 250 mls @ 15 mls/hr IV .[id number] PRN PRN Reason: Saline Flush Sodium Chloride () 250 mls @ 15 mls/hr IV .[id number] PRN PRN Reason: Additional IVPB Infusion Cefazolin Sodium 2 gm/ Sodium (Chloride) 110 mls @ 150 mls/hr IV Q8 [facility] Last Infusion: 08/13/19 07:32 Dose: Infused Documented by: Insulin Human Lispro (Humalog Kwikpen (Bkc)) 0 unit SC [facility]; Protocol Last Admin: 08/13/19 06:34 Dose: Not Given Documented by: Isosorbide Mononitrate (Imdur) 30 mg PO DAILY [facility] Last Admin: 08/13/19 09:22 Dose: 30 mg Documented by: Lisinopril (Zestril) 20 mg PO BID [facility] Last Admin: 08/13/19 09:22 Dose: 20 mg Documented by: Magnesium Hydroxide (Milk Of Magnesia) 30 ml PO DAILY PRN PRN PRN Reason: Constipation Melatonin (Melatonin) 3 mg PO QHS PRN PRN PRN Reason: INSOMNIA Last Admin: 08/10/19 22:44 Dose: 3 mg Documented by: Metoprolol Tartrate (Lopressor (Beta Monse)) 25 mg PO BID [facility] Last Admin: 08/13/19 09:22 Dose: 25 mg Documented by: Morphine Sulfate () 2 mg IV Q3H PRN PRN PRN Reason: Pain Score 6-10/10 Nitroglycerin (Nitrostat) 0.4 mg SUBLINGUAL Q5M PRN PRN Reason: CARDIAC/CHEST PAIN Ondansetron HCl (Zofran) 4 mg IV Q8H PRN PRN PRN Reason: NAUSEA/VOMITING Last Admin: 08/08/19 18:56 Dose: 4 mg Documented by: Oxycodone HCl (Oxyir) 5 mg PO Q4H PRN PRN PRN Reason: Pain Score 4-5/10 Last Admin: 08/13/19 07:58 Dose: 5 mg Documented by: Pantoprazole Sodium (Protonix) 40 mg PO DAILY [facility] Last Admin: 08/13/19 09:22 Dose: 40 mg Documented by: Prochlorperazine Edisylate (Compazine Iv) 5 mg IV Q4H PRN PRN PRN Reason: Breakthrough Nausea/Vomiting Psyllium Hydrophilic Mucilloid (Metamucil) 1 packet PO DAILY PRN PRN PRN Reason: Constipation Senna/Docusate Sodium (Senokot-S, Chica-Colace) 2 tablet PO BID PRN PRN PRN Reason: Constipation Sodium Chloride () 10 - 40 ml IV UD PRN PRN Reason: SALINE FLUSH Last Admin: 08/13/19 06:31 Dose: 10 ml Documented by: Throat Lozenges (Cepacol Sore Throat Lozenge) 1 lozenge MUCOUS MEM Q2H PRN PRN PRN Reason: SORE THROAT Medical Necessity - Tobacco Use Smoking Status: Never smoker Tobacco Use: Non-smoker Route of nutrition/ use of supplements: [] Nutritional Intake: [] IV Site: [] Zhu Catheter: [] - Assessment/Plan Antibiotics: [] Assessment/Plan: [] Active and Suspected Problems (Last Reviewed 01/16/19 @ 09:[address] Fredo Rodriguez MD) Severe sepsis (Acute) Suspected 2018 novel coronavirus infection (Acute) Hypokalemia (Acute) MSSA bacteremia - recurrent infection. Had spine surgery with hardware placement at [facility] 02/2019, followed with Dr. Maurer with ID. After course of iv abx completed , changed to 3 month course of po keflex 500mg bid for suppression. Became bacteremia several weeks after that course stopped. No sign of new infection on MRI of spine, MRI of foot, or TTE. Repeat bcx remains neg. Cont cefazolin, plan will be for discharge on iv cefazolin for 6 week course with stop date 09/21/19, then indefinite po keflex. COVID neg, overall low suspicion for infection, will stop isolation. Wrote rx for labs and abx. Picc today. ID followup in 2-3 weeks. Will follow, d/w Dr. Gaitan.
--- NOTE | 2019-08-13 11:03 | NURSING ---
This RN assumed care of pt at this time.
--- NOTE | 2019-08-13 11:04 | NURSING ---
Gave report to Manish Madison RN
[2019-08-13 12:05] LABS: Bedside Glucose 160 mg/dL (70-110)
[2019-08-13] MEDS: Insulin Lispro 100 UNIT/ML INSULN.PEN SC (12:07)
--- NOTE | 2019-08-14 14:57 | CASEMGMT ---
RN DC PHONE CALL DC DATE: 08.13.2019 DC DISPOSITION: Home with [facility] DC DIAGNOSIS: Bacteremia LACE/STRATA: 25/06 F/U APPTS MADE PRIOR TO DC: yes Call to [facility] to verify pt had start of care yesterday. Verified by their scheduling. No further questions at this time. Rush RON RN AC
== END 2019-08-13 14:58 | disposition home health service (06) | DRG 720 ==
LOC: ED 15:13 → MS2 17:32 → PCU 08-12 14:08
PROVIDERS: Admitting Provider Family Medicine; Emergency Provider Emergency Medicine; PCP Family Medicine
DX: A41.9 Sepsis, unspecified organism (principal); R65.20 Severe sepsis without septic shock; E11.22 Type 2 diabetes mellitus with diabetic chronic kidney disease; E11.51 Type 2 diabetes mellitus with diabetic peripheral angiopathy without gangrene; E78.5 Hyperlipidemia, unspecified; I13.0 Hypertensive heart and chronic kidney disease with heart failure and stage 1 through stage 4 chronic kidney disease, or unspecified chronic kidney disease; I50.32 Chronic diastolic (congestive) heart failure; N18.3 Chronic kidney disease, stage 3 (moderate); I25.10 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of native coronary artery without angina pectoris; E11.610 Type 2 diabetes mellitus with diabetic neuropathic arthropathy; E87.6 Hypokalemia; K21.9 Gastro-esophageal reflux disease without esophagitis; E11.40 Type 2 diabetes mellitus with diabetic neuropathy, unspecified; E87.1 Hypo-osmolality and hyponatremia; D50.9 Iron deficiency anemia, unspecified; B95.61 Methicillin susceptible Staphylococcus aureus infection as the cause of diseases classified elsewhere; F32.9 Major depressive disorder, single episode, unspecified
CPT/HCPCS: 36415; 36569; 71045; 72146; 72148; 73718; 80048; 80053; 81001; 82728; 82962; 83605; 83615; 83735; 84145; 84484; 85025; 85379; 85610; 85730; 86140; 87040; 87070; 87077; 87086; 87149; 87186; 87205; 87449; 87633; 87635; 93005; 93306; 94640; 97162; 97165; 97802; 99251; 99285; J2185; J7030; J7040; J7050; A4216; G0463; J1940; J2405; U0004

== ENCOUNTER → 2019-08-21 09:27 | Outpatient (CLI) | payer MEDICAID, SELFPAY ==
[2019-08-17 08:24] VITALS: BMI 26.9
[2019-08-21 10:12] LABS: Anion Gap 9 (5-15); BUN 20 mg/dL (7-18); BUN/Creat Ratio 18.3 RATIO (10-20); Calcium,Total 8.9 mg/dL (8.5-10.1); Chloride 105 mmol/L (98-107); Creatinine, Serum 1.09 mg/dL (0.70-1.30); EST Glomerular Filtration Rate 73 mL/min (>60); Est Glom Filt Rate - Afr Amer 88 mL/min (>60); Glucose 132 mg/dL (74-106); Sodium Level 138 mmol/L (136-145)
== END ==
PROVIDERS: PCP Family Medicine; Referring Provider Nurse Practitioner Family; Visit Provider Nurse Practitioner Family
DX: I10 Essential (primary) hypertension (principal); I25.119 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of native coronary artery with unspecified angina pectoris; E78.5 Hyperlipidemia, unspecified; E87.1 Hypo-osmolality and hyponatremia; Z95.1 Presence of aortocoronary bypass graft
CPT/HCPCS: 36415; 80048

== ENCOUNTER 2019-09-29 16:40 | Inpatient (IN) | payer MEDICAID, SELFPAY ==
[2019-08-17 08:24] VITALS: BMI 26.9
[2019-09-29] VITALS (16 sets, daily range): BP systolic 117–192; BP diastolic 58–82; PULSE 46–59; RESP 12–17; TEMP 36.2–36.9; O2SAT 94–100; BMI 24.3; BMI 26.1
--- NOTE | 2019-09-29 17:08 | EKG12_ITS ---
Test Reason : ILLNESS Blood Pressure : / mmHG Vent. Rate : 046 BPM Atrial Rate : 046 BPM P-R Int : 190 ms QRS Dur : 096 ms QT Int : 498 ms P-R-T Axes : 040 029 072 degrees QTc Int : 435 ms Sinus bradycardia Nonspecific ST and T wave abnormality Poor R wave progression Abnormal ECG Confirmed by THALIA GILLILAND, GUSTAVO ([id number]), editor publications MACIEL FOLEY ([id number]) on 10/02/2019 11:07:36 AM Referred By: NEDA Confirmed By:GUSTAVO VÁSQUEZ MD
--- NOTE | 2019-09-29 17:45 | RAD_ITS ---
STUDY: X-RAY CHEST REASON FOR EXAM: Male, 59 years old. Fatigue TECHNIQUE: Frontal view of the chest COMPARISON: 08/09/2019 FINDINGS: The lungs are clear. There are no pleural effusions. There is no pneumothorax. The heart is normal in size. Again noted are sternotomy wires. Again noted is spinal fusion hardware. RAD/Chest 1 View (Portable) IMPRESSION: No acute thoracic pathology. Electronically Signed: Ken Nieto, at 18:02 EDT Tel , Service support ,
[2019-09-29] MEDS: 0.9% Normal Saline 1,000 ML 150 ML IV (17:51)
[2019-09-29 18:16] LABS: Bacteria 0 SEEN /hpf (None Seen); Mucous, Urine 0 SEEN /hpf (<or=2+); Squamous Epithelial Cells - UA 0 SEEN /hpf (0-5); White Blood Cells 0 SEEN /hpf (0-5)
[2019-09-29 18:21] LABS: Absolute Lymphocyte Count 1.21 X10^3/uL (0.83-4.51); Absolute Neutrophil Count 4.5 X10^3/uL (2.0-7.7); Basophil# 0.05 X10^3/uL; Basophil% 0.7 % (0-1); Eosinophil# 0.15 X10^3/uL; Eosinophils% 2.2 % (0-5); Hematocrit 33.5 % (40-54); Hemoglobin 11.8 g/dL (13.0-16.5); Lymphocyte # 1.21 X10^3/ul (4.0); Lymphocyte % 17.9 % (19-41); Mean Corp Hgb Conc 35.2 g/dL (32-36); Mean Corpuscular Hgb 29.1 pg (27.0-32.0); Mean Corpuscular Volume 82.5 fL (80-94); Mean Platelet Vol. 10.2 fl (6.2-12.0); Monocyte# 0.81 X10^3/uL; NRBC Flagged by Analyzer 0 % (0-5); Neutrophil # 4.49 X10^3/uL (2.7-7.7); Neutrophil % 66.5 % (47-70); Platelet Count 240 K/mm3 (150-450); RBC Distribution Width CV 13.5 % (11.6-14.6); RBC Distribution Width SD 40.5 fl (35.1-43.9); Red Blood Count 4.06 M/mm3 (4.6-6.2); White Blood Count 6.8 K/mm3 (4.4-11.0)
[2019-09-29 18:27] LABS: Color, Urine Yellow (Yellow); Glucose, Dipstick Normal (Normal); Ketone-Dipstick Negative (Negative); Leukocyte Esterase-Dipstick Negative /ul (Negative); Nitrite-Dipstick Negative (Negative); Occult Blood-Urine 25 /ul (Negative); Protein-Dipstick 100 mg/dl (Negative); Urine Bilirubin Dipstick Negative (Negative); Urine Clarity Sl. Cloudy (Clear); Urine Urobilinogen Normal (Normal)
[2019-09-29 18:36] LABS: Red Blood Cells-Urine 0-5 SEEN /hpf (0-5)
[2019-09-29 18:37] LABS: International Normalized Ratio 1.1; Prothrombin Time (Protime)PT. 13.2 SECONDS (11.7-14.9)
[2019-09-29 18:53] LABS: ALB/GLOB Ratio 0.9 RATIO (0.9-2.4); AST(SGOT) 50 U/L (15-37); Alanine Aminotransfer ALT/SGPT 26 U/L (16-61); Albumin, Serum 3.9 g/dL (3.2-5.0); Alkaline Phosphatase 133 U/L (45-117); Anion Gap 13 (5-15); BUN 63 mg/dL (7-18); BUN/Creat Ratio 36.8 RATIO (10-20); Calcium,Total 8.9 mg/dL (8.5-10.1); Chloride 77 mmol/L (98-107); Creatinine, Serum 1.71 mg/dL (0.70-1.30); EST Glomerular Filtration Rate 43 mL/min (>60); Est Glom Filt Rate - Afr Amer 53 mL/min (>60); Estimated Creatinine Clearance 51.27 ml/min; Globulin 4.2 g/dL (2.2-4.2); Glucose 94 mg/dL (74-106); Potassium 4.1 mmol/L (3.5-5.1); Protein, Total 8.1 g/dL (6.4-8.2); Sodium Level 113 mmol/L (136-145); Thyroid Stim Hormone (TSH) 1.73 uIU/mL (0.358-3.74)
--- NOTE | 2019-09-29 19:29 | HP.PCM_ITS ---
Problem List (1) Hyponatremia Status: Acute (2) Bacteremia Status: Chronic (3) PAD (peripheral artery disease) Status: Chronic (4) Diabetes mellitus, type II Status: Chronic Qualifiers: Diabetes mellitus intermission coordinator insulin use: without intermission coordinator use Diabetes mellitus complication status: with other specified complication Qualified Co de(s): E11.69 - Type 2 diabetes mellitus with other specified complication (5) Neuropathy Status: Chronic (6) Ulcer of left foot Status: Chronic (7) Charcot's joint, left ankle and foot Status: Chronic (8) 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[place] coronary artery w/angina pectoris Status: Chronic Qualifiers: [place] vs. transplanted heart: unspecified whether [place] or transplanted heart Qualified Code(s): I25.119 - 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of [place] coronary artery with unspecified angina pectoris Comment: CABG x 3 WALL-LAD, Free MAIK-OM, SVG-RPDA 06/12/18 (9) Chronic diastolic (congestive) heart failure Status: Chronic (10) HLD (hyperlipidemia) Status: Chronic Qualifiers: Hyperlipidemia type: unspecified Qualified Code(s): E78.5 - Hyperlipidemia, unspecified (11) MSSA bacteremia Status: Chronic (12) Sinus bradycardia Status: Chronic (13) Atherosclerosis of coronary artery without angina pectoris Status: Chronic Qualifiers: Comment: CABG x 3 WALL-LAD, Free MAIK-OM, SVG-RPDA 06/12/18 (14) H/O coronary artery bypass surgery Status: Chronic Comment: CABG x 3 WALL-LAD, Free MAIK-OM, SVG-RPDA 06/12/18 (15) Essential hypertension Status: Chronic History of Present Illness Date of Admission: 09/29/19 Chief Complaint: Fatigue The patient is a 59 year old M with a significant history of chronic diastolic heart failure; hyperlipidemia; postoperative atrial fibrillation; sinus bradycardia; type 2 diabetes mellitus; MSSA bacteremia who presented to the emergency department with 3 days history of progressively worsening fatigue. Further he have muscle aches with walking. At emergency department his sodium was found to be 113. He has a home health nurse who takes care of him at home. Reported at home his pulse has been between 46-48. At emergency department his pulse was predominantly in the lower 50s. Reportedly Emergency Department doctor discussed his hyponatremia with podiatric foot and ankle specialist. Per emergent department doctor podiatric foot and ankle specialist recommended normal saline with admission to the intensive care unit. Past Medical History Past Medical History (Chronic Problems): Chronic Problems (Last Reviewed 09/29/19 @ 21:[address] Hang Neville MD) Bacteremia (Chronic) PAD (peripheral artery disease) (Chronic) Diabetes mellitus, type II (Chronic) Neuropathy (Chronic) Ulcer of left foot (Chronic) Charcot's joint, left ankle and foot (Chronic) 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[place] coronary artery w/angina pectoris (Chronic) CABG x 3 WALL-LAD, Free MAIK-OM, SVG-RPDA 06/12/18 Chronic diastolic (congestive) heart failure (Chronic) HLD (hyperlipidemia) (Chronic) MSSA bacteremia (Chronic) Sinus bradycardia (Chronic) Atherosclerosis of coronary artery without angina pectoris (Chronic) CABG x 3 WALL-LAD, Free MAIK-OM, SVG-RPDA 06/12/18 H/O coronary artery bypass surgery (Chronic 06/12/18) CABG x 3 WALL-LAD, Free MAIK-OM, SVG-RPDA 06/12/18 Essential hypertension (Chronic) Medical History: Medical History (Last Reviewed 09/29/19 @ 21:[address] Hang Neville MD) 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[place] coronary artery w/angina pectoris (Chronic) I25.119 CABG x 3 WALL-LAD, Free MAIK-OM, SVG-RPDA 06/12/18 Chronic diastolic (congestive) heart failure (Chronic) I50.32 HLD (hyperlipidemia) (Chronic) E78.5 MSSA bacteremia (Chronic) R78.81 Osteomyelitis (Resolved) M86.9 Sinus bradycardia (Chronic) R00.1 Atherosclerosis of coronary artery without angina pectoris (Chronic) I25.10 CABG x 3 WALL-LAD, Free MAIK-OM, SVG-RPDA 06/12/18 Essential hypertension (Chronic) I10 Cataracts, both eyes H26.9 Chronic ulcer of left foot with fat layer exposed L97.522 Diabetic retinopathy E11.319 GERD (gastroesophageal reflux disease) K21.9 Hammer toe of left foot M20.42 Iron deficiency anemia D50.9 Normocytic anemia D64.9 Obesity (BMI 30.0-34.9) E66.9 Type 2 diabetes mellitus E11.9 Diastolic dysfunction with acute on chronic heart failure I50.33 Postoperative atrial fibrillation (Inactive) Onset Date: 06/12/18 I97.89, I48.91 Allergies Penicillins [PCN] Allergy (Verified 09/29/19 16:41) Unknown Home Medications: Ambulatory Orders Medication Instructions Recorded pantoprazole 40 mg tablet,delayed 40 mg PO DAILY 07/24/18 release Aspirin E.C. [Ecotrin] 81 mg PO DAILY 09/09/18 Lisinopril [Zestril] 20 mg PO BID 09/09/18 nitroglycerin 0.4 mg sublingual 0.4 mg SUBLINGUAL Q5M PRN #25 tab 10/17/18 tablet amlodipine 10 mg tablet 10 mg PO DAILY #90 tab 01/16/19 glimepiride 2 mg tablet 2 mg PO DAILY tab 01/16/19 Clopidogrel Bisulfate [Plavix] 75 mg PO DAILY 08/08/19 Gabapentin [Neurontin] 100 mg PO TID 08/08/19 furosemide 40 mg tablet 60 mg PO .COMPLEX tab 08/26/19 metoprolol tartrate 25 mg tablet 12.5 mg PO BID #180 tab 08/26/19 Atorvastatin Calcium [Lipitor] 40 mg PO QHS 09/29/19 Cephalexin [Keflex] 500 mg PO TID 09/29/19 Isosorbide Mononitrate [Isosorbide 30 mg PO DAILY 09/29/19 Mononitrate ER] Metolazone 2.5 mg PO TUFR 09/29/19 Surgical History: Surgical History (Last Reviewed 09/29/19 @ 21:[address] Hang Neville MD) H/O coronary artery bypass surgery (Chronic) Onset Date: 06/12/18 Z95.1 CABG x 3 WALL-LAD, Free MAIK-OM, SVG-RPDA 06/12/18 Amputated toe of left foot Onset Date: 08/2018 S98.132A History of left heart catheterization Onset Date: 05/20/18 Z98.890 Hx of cholecystectomy Z90.49 S/P meniscectomy Z98.890 Surgical History: cataract, cholecystectomy, coronary bypass surgery, total knee arthroplasty, - - Prior and recent toe partial amputation, skin cancer face resection, Winter 2018 Thoracic spinal surgery for osteomyelitis. Psychiatric History: Depression Smoking Status: Never smoker Tobacco Use: Secondhand - *Family History Maternal Family History: Family History (Last Reviewed 09/29/19 @ 21:[address] Hang Neville MD) Mother Diabetes History Items: Diabetes Paternal Family History: Family History (Last Reviewed 09/29/19 @ 21:[address] Hang Neville MD) Mother Diabetes History Items: Unknown - Patient does not know his paternal family history. Review of Systems Constitutional: Reports: Fatigue. Denies: Chills, Fever, Weight Change HEENT: Denies: Head Aches, Sinus Congestion, Sinus Drainage Cardiovascular: Denies: Chest Pain, Palpitations Respiratory: Denies: Cough, Shortness of breath at rest, Sputum production Gastrointestinal: Denies: Abdominal Pain, Nausea, Vomiting Genitourinary: Denies: Dysuria Musculoskeletal: Reports: Muscle pain. Denies: Joint Pain, Joint Tenderness Skin: Denies: Rash, Wounds Neurological: Denies: Numbness, Tingling, Focal weakness Psychiatric: Denies: Anxiety, Depression, Homicidal Ideations, Suicidal Ideations Hematologic/ Lymphatic: Denies: Easy Bruising, Easy Bleeding VTE Information - Inpt Only VTE Present on Admission: No VTE Mechan Device Prophylaxis: None VTE Pharm Prophylaxis ordered?: Yes Patient Problems: Active and Suspected Problems (Last Reviewed 09/29/19 @ 21:[address] Hang Neville MD) Hyponatremia (Acute) - Physical Exam Vitals/I&O's: Vital Signs Temp Pulse Resp BP Pulse Ox 98.1 F 50 L 15 174/73 H 96 09/29/19 19:00 09/29/19 19:00 09/29/19 19:00 09/29/19 19:00 09/29/19 19:00 Oxygen Delivery Method Room Air Weight: 83.461 kg Body Mass Index (BMI) 24.3 General: Alert, Oriented x3, Cooperative HEENT: Atraumatic, PERRLA, EOMI, Normocephalic Neck: Supple, No JVD, Negative Carotid Bruits Lungs: Clear to auscultation, Normal air movement, No rhonchi, No wheeze, No rales Cardiovascular: Normal S1, Normal S2, No murmurs, Bradycardic Abdomen: Bowel Sounds Present, Soft, Non Tender Extremities: No edema, Capillary Refill Less than 3 Seconds, - - Deformed left foot. Skin: - - Scabbed area at the plantar side of the left foot. Musculoskeletal: No Tenderness to Palpation of Joints or Extremities Neurological: Cranial nerves II-XII grossly intact Psych/Mental Status: Normal Affect, Appropriate Laboratory Results 09/29/19 15:20: COVID-19 (ORAL) Pending 09/29/19 17:45: WBC 6.8, RBC 4.06 L, Hgb 11.8 L, Hct 33.5 L, MCV 82.5, MCH 29.1, MCHC 35.2, RDW Std Deviation 40.5, RDW Coeff of Dipti 13.5, Plt Count 240, MPV 10.2, Immature Gran % (Auto) 0.700, Neut % (Auto) 66.5, Lymph % (Auto) 17.9 L, [place] % (Auto) 12.0 H, Eos % (Auto) 2.2, Baso % (Auto) 0.7, Absolute Neuts (auto) 4.5, Absolute Lymphs (auto) 1.21, Nucleated RBC % 0 09/29/19 17:45: PT 13.2, INR 1.1, APTT 32.0 09/29/19 17:45: Sodium 113 L*, Potassium 4.1, Chloride 77 L, Carbon Dioxide 23.0, Anion Gap 13, BUN 63 H, Creatinine 1.71 H, Estim Creat Clear Calc 51.27, Est GFR (MDRD) Af Amer 53 L, Est GFR (MDRD) Non-Af 43 L, BUN/Creatinine Ratio 36.8 H, Glucose 94, Calcium 8.9, Total Bilirubin 1.10 H, AST 50 H, ALT 26, Alkal ine Phosphatase 133 H, Troponin I < 0.015, Total Protein 8.1, Albumin 3.9, Globulin 4.2, Albumin/Globulin Ratio 0.9, TSH 1.73 09/29/19 17:45: Lactic Acid 1.0 09/29/19 18:10: Urine Color Yellow, Urine Clarity Sl. Cloudy, Urine pH 5.0, Ur Specific [place] 1.010, Urine Protein 100 H, Urine Glucose (UA) Normal, Urine Ketones Negative, Urine Occult Blood 25 H, Urine Nitrite Negative, Urine Bilirubin Negative, Urine Urobilinogen Normal, Ur Leukocyte Esterase Negative, Urine RBC 0-5 SEEN, Urine WBC 0 SEEN, Ur Squamous Epith Cells 0 SEEN, Urine Bacteria 0 SEEN, Urine Mucus 0 SEEN Current Medications Sodium Chloride () 1,000 mls @ 150 mls/hr IV .Q6H40M [facility] Last Admin: 09/29/19 17:51 Dose: 150 mls/hr Documented by: Sodium Chloride () 1,000 mls @ 999 mls/hr IV .Q1H1M ONE Stop: 09/29/19 20:03 Assessment/Plan All Active Problems (Last Reviewed 09/29/19 @ 21:[address] Hang Neville MD) Hyponatremia (Acute) Osteomyelitis (Resolved) The patient is a 59 year old M with a significant history of chronic diastolic heart failure; hyperlipidemia; postoperative atrial fibrillation; sinus bradycardia; type 2 diabetes mellitus; MSSA bacteremia who presented to the emergency department with 3 days history of progressively worsening fatigue and found to have hyponatremia and bradycardia. Hypoosmolar hyponatremia Review of imaging department labs showed sodium level of 113; chloride level of 77; serum osmolality of 257. Patient report that he had the same presenting symptoms previously when he had hyponatremia. Received normal saline bolus at emergency department and then was started on 150 mL's per hour. Will reduce rate to 100 MS per hour. Trend sodium. Admitted to the ICU. Pharmacist Manager consult. Will do routine hyponatremia labs including a TSH, a.m. cortisol, urine osmolality, urine sodium, urine creatinine. Hold home Lasix and metolazone. Chronic diastolic heart failure Echocardiogram on 08/10/2019 showed left ventricular ejection fraction of 60%. Diastolic function was unable to be assessed. Right ventricular systolic pressure was 43. Lasix and metolazone held secondary to hyponatremia. RAFA Creatinine presentation was 1.71 Review of old record showed baseline creatinine around 1.2 BUN 63. Severely elevated compared to previous. BUN over creatinine is 36.8. Likely prerenal from dehydration. Hold diuretics. Hold lisinopril. Avoid other nephrotoxic's. Decrease frequency of home gabapentin. IV hydration as above. Trend BMP. Bradycardia- Sinus bradycardia with heart rate in the lower 50s. Hold home metoprolol for now. CAD status post CABG Aspirin, Plavix and Lipitor continued. Imdur continued. Lisinopril continued. Hold metoprolol for now because of bradycardia. Hypertension Presentation blood pressure was not within goal. Home amlodipine continued. Imdur continued. Hold diuretics because of hyponatremia and RAFA. Hold metoprolol because of bradycardia.. Hydralazine ordered. Diabetes mellitus with Charcot foot Normal blood glucose on presentation. Glimepiride continue. Accu-Chek QA CHS. Continue home boots for Charcot Foot. Miscellaneous: COVID-19 screen was obtained at the emergency department. Put on covid precautions. MSSA bacteremia. Previously on IV antibiotics. Now on Keflex p.o. Keflex continued. Elevated liver enzymes. Noted AST of 50. ALT of 26. Alcoholic panel. Reports only occasional alcoholism. Alkaline phosphatase 133. Patient can follow-up longitudinally. DVT prophylaxis Subcutaneous Lovenox. Inpatient E&M: 25708 Init Hosp L3
[2019-09-29] MEDS: 0.9% Normal Saline 1,000 ML 999 ML IV (20:20)
[2019-09-29 21:20] LABS: Osmolality, Serum 257 mOsm/KG (280-301)
--- NOTE | 2019-09-29 21:37 | ED.VISSUMM ---
- ER Visit Summary Date of Service: 09/29/19 Chief Complaint: Poor energy and fatigue History of Present Illness: The patient is a [address] Roblero and Dr. Schmitz for he. He reports that over the past 3 days he has not felt well. States that he has had very poor energy and has been fatigued. He complains of nausea and diffuse myalgias. He denies any fever or chills. No sore throat or cough. No chest pain or shortness of breath. He states he is had one episode of diarrhea today. No blood in his stools or black tarry stools. He denies headache, numbness, or weakness. Patient does have a complicated medical history. States that he was in admitted to the hospital for a blood infection (MSSA bacteremia) from August 07 August 12. He was getting Ancef through a PICC line that was removed approximately 1 week ago. He is now on Keflex 500 mg 3 times daily. He has been seeing Dr. Yuan for this. This is actually the third episode that he has had for this. 1 was from osteomyelitis from a Charcot foot. He reports that they were unable to find the source this time. Patient denies any foot pain or evidence of infection to his foot. He does have a Charcot ankle. He denies any back pain. Physical Examination: Vitals: Stable. Afebrile. General: Well-nourished and well-developed. Head: Normocephalic atraumatic. Neck: Supple, no lymphadenopathy. No JVD. Nontender. Cardiovascular: Regular bradycardic rhythm with no murmur. Respiratory: No respiratory distress. Clear to auscultation bilaterally. Abdominal: Soft, nontender, nondistended, normal bowel sounds. No guarding, rebound, or peritoneal signs. Back: Nontender. Extremities: Nontender, no edema. Charcot ankle on the left. He does have a prominent bone on the plantar surface of his foot. There is no skin breakdown. There is overlying callus. There is no erythema or evidence of infection. Skin: Normal color, no rash. Neurologic: Alert and oriented ?3. Cranial nerves II through XII are intact. Normal strength and sensation. Psych: Normal affect. Test Results: EKG is sinus bradycardia at [address] changes. Troponin is negative. UA is marked for blood. Chem-7 shows a sodium of 113, chloride of 77, BUN 63, creatinine 1.71. Last sodium was 138 on August 20. CBC shows an H&H of 11.8 and 33.5, lymphocytes of 18, monocytes of 12. Chest x-ray shows chronic changes. Emergency Department Course and Treatment: Patient had had a prior episode of hyponatremia in May 2018 that was attributed to hydrochlorothiazide. He reports that he is no longer on this. He is really having no severe neurologic symptoms. No confusion. No seizures. He was discussed with Dr. Eugene and we decided not to give 3% normal saline. He was given a liter of normal saline and is resting comfortably. Treatment Plan: Patient was discussed with Dr. Neville. He will be admitted to the ICU for further evaluation and treatment. Disposition: Admitted in improved condition. Impression: 1. Severe hyponatremia. 2. Fatigue. 3. Critical care time 30 minutes. This note was generated with [employer] dictation software. It may contain incorrect words, spelling, and punctuation that were not noted in review of the chart prior to signing ED Disposition - Plan for ED Patient: Disposition: Acute Care [facility]
[2019-09-29 21:38] LABS: Urine Sodium 37 mmol/L (Not Establ.)
[2019-09-29 21:42] LABS: Sodium Level 116 mmol/L (136-145); Thyroid Stim Hormone (TSH) 1.91 uIU/mL (0.358-3.74)
[2019-09-29 21:45] LABS: Osmolality, Urine 193 mOsm/KG
[2019-09-29] MEDS: Enoxaparin 40 MG/0.4 ML Syringe SC (22:12)
[2019-09-29] MEDS: Cephalexin 500 MG Capsule PO (22:12)
[2019-09-29] MEDS: Gabapentin 100 MG Capsule PO (22:12)
[2019-09-29] MEDS: Atorvastatin Calcium 40 MG Tablet PO (22:12)
[2019-09-29] MEDS: hydrALAZINE 20 MG/ML Vial 5 MG IV (22:13)
[2019-09-29] MEDS: 0.9% Normal Saline 1,000 ML 100 ML IV (22:21)
[2019-09-29 22:31] LABS: Bedside Glucose 99 mg/dL (70-110)
[2019-09-30] VITALS (20 sets, daily range): BP systolic 129–181; BP diastolic 55–85; PULSE 46–70; RESP 12–18; TEMP 36.4–36.5; O2SAT 97–100
[2019-09-30 01:28] LABS: Sodium Level 118 mmol/L (136-145)
[2019-09-30] MEDS: Cephalexin 500 MG Capsule PO ×3 (05:08→21:46)
[2019-09-30] MEDS: hydrALAZINE 20 MG/ML Vial 5 MG IV (05:12)
[2019-09-30 05:17] LABS: Absolute Lymphocyte Count 0.91 X10^3/uL (0.83-4.51); Absolute Neutrophil Count 3.8 X10^3/uL (2.0-7.7); Basophil# 0.04 X10^3/uL; Basophil% 0.7 % (0-1); Eosinophil# 0.18 X10^3/uL; Hematocrit 30.7 % (40-54); Hemoglobin 10.9 g/dL (13.0-16.5); Lymphocyte # 0.91 X10^3/ul (4.0); Lymphocyte % 15.2 % (19-41); Mean Corp Hgb Conc 35.5 g/dL (32-36); Mean Corpuscular Hgb 29.1 pg (27.0-32.0); Mean Corpuscular Volume 81.9 fL (80-94); Monocyte% 16.7 % (0-10); NRBC Flagged by Analyzer 0 % (0-5); Neutrophil # 3.83 X10^3/uL (2.7-7.7); Neutrophil % 64.1 % (47-70); Platelet Count 175 K/mm3 (150-450); RBC Distribution Width CV 13.3 % (11.6-14.6); RBC Distribution Width SD 39.8 fl (35.1-43.9); Red Blood Count 3.75 M/mm3 (4.6-6.2)
[2019-09-30 05:39] LABS: Anion Gap 11 (5-15); BUN 59 mg/dL (7-18); Calcium,Total 8.4 mg/dL (8.5-10.1); Chloride 85 mmol/L (98-107); Creatinine, Serum 1.31 mg/dL (0.70-1.30); EST Glomerular Filtration Rate 59 mL/min (>60); Est Glom Filt Rate - Afr Amer 72 mL/min (>60); Estimated Creatinine Clearance 66.92 ml/min; Glucose 102 mg/dL (74-106); Potassium 4.2 mmol/L (3.5-5.1); Sodium Level 121 mmol/L (136-145)
--- NOTE | 2019-09-30 06:47 | PCM.PN.HOSP ---
Patient Problems: Active and Suspected Problems (Last Reviewed 09/29/19 @ 21:[address] Hang Neville MD) Hyponatremia (Acute) Subjective: Patient notes since admission significantly improved with decreased fatigue, less muscle aches and more interactive ability. Discussed current presentation at length and he notes that he had his Lasix and metolazone recently increased over the last several weeks and has been noticing progressive decline over the last several days. Discussed that he has been very sensitive to diuretics prior with similar history following hydrochlorothiazide administration. Given improvement discussed transition to PCU status to which patient was amenable. Also discussed that patient needs to notify his physicians of any medication changes that he makes prior to making these changes. Patient denies fevers, chills, nausea, emesis, abdominal pain, chest pain or dyspnea. Objective: Physical Examination: General: awake, alert, oriented x 3 and cooperative, seated upright in the ICU bed in no apparent distress, notes feeling improved and less fatigued as well as resolution of previous muscle aches. Skin: normal color, turgor, no icterus, cyanosis. HEENT: AT/NC, EOMI, PERRLA, MMM, no carotid bruits or JVD noted. Lungs: CTA bilaterally, moderate effort, moderate decrease BL bases, no rales, ronchi or wheezing. Heart: Regular rate and rhythm; no gallop, rub audible. Abdomen: soft, NTTP, ND, normal BS, no HSM. Extremities: no cyanosis, clubbing, or edema which patient has intermittently had especially when on amlodipine previously, chronic Charcot foot. Neurological: patient awake, alert, oriented x 3; cognitive function intact; pupils equally reactive to light and accomodation; cranial nerves II-XII grossly normal, moving all 4 extremities, no focal deficits, strength moderately global decreased but improving. Psychiatric: affect appears improved, less fatigued, very talkative, no acute evidence of depressive or anxiety feelings. Vitals/I&O's: Vital Signs Temp Pulse Resp BP Pulse Ox 97.7 F L 56 L 12 149/70 H 98 09/30/19 04:00 09/30/19 06:00 09/30/19 06:00 09/30/19 06:00 09/30/19 06:00 Oxygen Delivery Method Room Air Weight: 194 lb 3.636 oz Body Mass Index (BMI) 26.1 Intake and Output for Last 24 Hours 09/28/19 09/29/19 09/30/19 23:59 23:59 23:59 Intake Total 2082.5 / 2082.5 756.67 / 756.67 Output Total 120 / 120 1600 / 1600 Balance 1962.5 / 1962.5 -843.33 / -843.33 Laboratory Results 09/29/19 15:20: COVID-19 (ORAL) Not Detected 09/29/19 17:45: WBC 6.8, RBC 4.06 L, Hgb 11.8 L, Hct 33.5 L, MCV 82.5, MCH 29.1, MCHC 35.2, RDW Std Deviation 40.5, RDW Coeff of Ditpi 13.5, Plt Count 240, MPV 10.2, Immature Gran % (Auto) 0.700, Neut % (Auto) 66.5, Lymph % (Auto) 17.9 L, [place] % (Auto) 12.0 H, Eos % (Auto) 2.2, Baso % (Auto) 0.7, Absolute Neuts (auto) 4.5, Absolute Lymphs (auto) 1.21, Nucleated RBC % 0 09/29/19 17:45: PT 13.2, INR 1.1, APTT 32.0 09/29/19 17:45: Sodium 113 L*, Potassium 4.1, Chloride 77 L, Carbon Dioxide 23.0, Anion Gap 13, BUN 63 H, Creatinine 1.71 H, Estim Creat Clear Calc 51.27, Est GFR (MDRD) Af Amer 53 L, Est GFR (MDRD) Non-Af 43 L, BUN/Creatinine Ratio 36.8 H, Glucose 94, Calcium 8.9, Total Bilirubin 1.10 H, AST 50 H, ALT 26, Alkaline Phosphatase 133 H, Troponin I < 0.015, Total Protein 8.1, Albumin 3.9, Globulin 4.2, Albumin/Globulin Ratio 0.9, TSH 1.73 09/29/19 17:45: Lactic Acid 1.0 09/29/19 17:45: Serum Osmolality 257 L 09/29/19 18:10: Urine Color Yellow, Urine Clarity Sl. Cloudy, Urine pH 5.0, Ur Specific [place] 1.010, Urine Protein 100 H, Urine Glucose (UA) Normal, Urine Ketones Negative, Urine Occult Blood 25 H, Urine Nitrite Negative, Urine Bilirubin Negative, Urine Urobilinogen Normal, Ur Leukocyte Esterase Negative, Urine RBC 0-5 SEEN, Urine WBC 0 SEEN, Ur Squamous Epith Cells 0 SEEN, Urine Bacteria 0 SEEN, Urine Mucus 0 SEEN 09/29/19 21:05: Sodium 116 L*, TSH 1.91 09/29/19 21:20: Urine Osmolality 193 09/29/19 21:20: Ur Random Sodium 37 09/29/19 21:21: POC Glucose 99 09/30/19 00:50: Sodium 118 L* 09/30/19 05:10: WBC 6.0, RBC 3.75 L, Hgb 10.9 L, Hct 30.7 L, MCV 81.9, MCH 29.1, MCHC 35.5, RDW Std Deviation 39.8, RDW Coeff of Dipti 13.3, Plt Count 175, MPV 10.0, Immature Gran % (Auto) 0.300, Neut % (Auto) 64.1, Lymph % (Auto) 15.2 L, [place] % (Auto) 16.7 H, Eos % (Auto) 3.0, Baso % (Auto) 0.7, Absolute Neuts (auto) 3.8, Absolute Lymphs (auto) 0.91, Nucleated RBC % 0 09/30/19 05:10: Cortisol Pending 09/30/19 05:10: Sodium 121 L, Potassium 4.2, Chloride 85 L, Carbon Dioxide 25.0, Anion Gap 11, BUN 59 H, Creatinine 1.31 H, Estim Creat Clear Calc 66.92, Est GFR (MDRD) Af Amer 72, Est GFR (MDRD) Non-Af 59 L, BUN/Creatinine Ratio 45.0 H, Glucose 102, Calcium 8.4 L Current Medications Acetaminophen (Tylenol) 650 mg PO Q6H PRN PRN PRN Reason: Pain Score 1-10/Temp > 100.7 F Amlodipine Besylate (Norvasc) 10 mg PO DAILY [facility] Atorvastatin Calcium (Lipitor) 40 mg PO QHS [facility] Last Admin: 09/29/19 22:12 Dose: 40 mg Documented by: Cephalexin (Keflex) 500 mg PO TID [facility] Last Admin: 09/30/19 05:08 Dose: 500 mg Documented by: Clopidogrel Bisulfate (Plavix) 75 mg PO DAILY [facility] Dextrose (D50w Syringe) 0 gm IV X1 PRN; Protocol PRN Reason: Hypoglycemia Enoxaparin Sodium (Lovenox) 40 mg SC DAILY [facility] Last Admin: 09/29/19 22:12 Dose: 40 mg Documented by: Gabapentin (Neurontin) 100 mg PO BID [facility] Last Admin: 09/29/19 22:12 Dose: 100 mg Documented by: Glimepiride (Amaryl) 2 mg PO DAILYCM [facility] Glucagon () 1 mg IM .X1 PRN PRN Reason: Hypoglycemia Hydralazine HCl (Apresoline Iv) 5 mg IV Q4H PRN PRN PRN Reason: sbp > 160 Last Admin: 09/30/19 05:12 Dose: 5 mg Documented by: Sodium Chloride () 1,000 mls @ 100 mls/hr IV .Q10H [facility] Last Infusion: 09/30/19 04:55 Dose: 100 mls/hr Documented by: Sodium Chloride () 250 mls @ 15 mls/hr IV .[id number] PRN PRN Reason: Saline Flush Sodium Chloride () 250 mls @ 15 mls/hr IV .[id number] PRN PRN Reason: Additional IVPB Infusion Isosorbide Mononitrate (Imdur) 30 mg PO DAILY [facility] Magnesium Hydroxide (Milk Of Magnesia) 30 ml PO DAILY PRN PRN PRN Reason: Constipation Melatonin (Melatonin) 3 mg PO QHS PRN PRN PRN Reason: INSOMNIA Ondansetron HCl (Zofran) 4 mg IV Q8H PRN PRN PRN Reason: NAUSEA/VOMITING Pantoprazole Sodium (Protonix) 40 mg PO DAILY [facility] Sodium Chloride () 10 - 40 ml IV UD PRN PRN Reason: SALINE FLUSH STROKE Vital Signs/Narrative: Vital Signs Temp Pulse Resp BP BP Pulse Ox 09/30/19 06:00 56 L 12 149/70 H 98 09/30/19 05:12 52 L 181/80 H 09/30/19 05:00 54 L 16 181/80 H 97 09/30/19 04:00 97.7 F L 52 L 17 161/73 H 98 09/30/19 03:45 46 L 09/30/19 03:00 51 L 18 157/81 H 98 Medical Necessity - Tobacco Use Smoking Status: Never smoker Tobacco Use: Secondhand Assessment/Plan All Active Problems (Last Reviewed 09/29/19 @ 21:[address] Hang Neville MD) Hyponatremia (Acute) Osteomyelitis (Resolved) The patient is a 59 y/o M w/ PMHx: HTN, HLD, CAD s/p CABG x 3, HTN, HLD, Chronic Diastolic CHF, Chronic sinus bradycardia, Diabetes mellitus type II with neuropathy with Chronic L Charcot foot w/ history of prior infected ulcers following w/ Podiatry with recent MSSA bacteremia possibly associated but well appearing at that time transitioned off PICC/ancef to currently keflex regimen who presents to the [facility] ED on 09/29/19 with history of ongoing fatigue, malaise and muscle cramps with activity over the last several days to weeks. 1. 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 given significant level, only complaint of fatigue and muscle cramping, no neurological symptoms, urine sodium, UFeNa, urine osmolality and history consistent with hypovolemic hyponatremia secondary to losses secondary to diuretics, TSH and magnesium requested, continue judicious hydration, serial BMPs given significant level upon presentation, given improvement and no neurological symptoms will transition to PCU status, discussed case with 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 2. Acute kidney injury: Secondary to aggressive diuresis with recent increase of metolazone and Lasix, history of previous hyponatremia associate with hydrochlorothiazide as well. Admission BUN/Cr 63/1.71, prior baseline creatinine noted to be 0.9-1.1, continued judicious hydration with hold on nephrotoxic medication, repeat 09/30/2019 BUN/creatinine 55/1.35, continue trending. 3. CAD: Status post CABG x3 [place], Free MAIK-OM, SVG-RPDA 06/12/18, will continue aspirin, Plavix, metoprolol, holding patient lisinopril given RAFA, resume once clinically appropriate. 4. Diastolic CHF: We will continue aspirin, Plavix, statin, metoprolol, holding lisinopril, Lasix and metolazone secondary to RAFA and hypovolemic hyponatremia as noted, resume once appropriate and as discussed with cardiology at discharge will discontinue metolazone and transition to Lasix 40 daily only with close cardiology follow-up. 5. Hypertension: Continue home regimen including metoprolol, increase isosorbide, add back lisinopril once RAFA resolved, holding Lasix and metolazone, clarified and patient no longer on amlodipine which will be discontinued, PRN hydralazine. 6. Hyperlipidemia: Continue home statin regimen. 7. Chronic sinus bradycardia: Noted on telemetry monitoring and upon ED presentation, continue metoprolol, stable. 8. Diabetes mellitus type II: Hold oral home regimen, ADA diet, accu checks w/ ISS. 9. Charcot foot with history of diabetic ulcers with recent MSSA bacteremia: Encouraged continued follow-up with podiatry, gomez per their parameters, continued Keflex as patient has been transitioned off Ancef with PICC recently. 10. DVT prophylaxis: SCDs, Lovenox. 11. CODE STATUS: Full code. Inpatient E&M: 52938 Subs Hosp L3
--- NOTE | 2019-09-30 07:02 | CON.PCM_ITS ---
Reason for Consult Date of Consultation: 09/30/19 Reason for Consultation: Hyponatremia History of Present Illness: The patient is a 59-year-old male, with a history as outlined below, who presented to the emergency department on September 28 with complaints of generalized malaise and fatigue. The patient was recently admitted to the hospital August 07 with MSSA bacteremia. The patient is currently followed in the cardiology clinic due to a history of coronary artery disease status post bypass surgery. He was last seen in August, at which time, his diuretic regimen, which includes Lasix was increased. The patient does report that his p.o. intake has been adequate. He denies any nausea, vomiting or diarrhea. On presentation to the emergency department, the patient was noted to be afebrile and hemodynamically stable. He was maintaining appropriate oxygen saturations on room air. Laboratory evaluation revealed evidence of a normal white blood cell count. Coagulation profile was within normal limits. Chemistry profile was notable for a sodium of 113, chloride of 77 and creatinine of 1.71. On August 21, 2019, the patient was noted to have a serum sodium level of 138. Urinalysis was unremarkable. Coronavirus testing was negative. Plain film chest x-ray revealed no acute cardiopulmonary process. The patient was placed on normal saline IV fluids and admitted to the medical intensive care unit for further management. Past Medical History Past Medical History (Chronic Problems): Chronic Problems (Last Reviewed 09/29/19 @ 21:[address] Hang Neville MD) Bacteremia (Chronic) PAD (peripheral artery disease) (Chronic) Diabetes mellitus, type II (Chronic) Neuropathy (Chronic) Ulcer of left foot (Chronic) Charcot's joint, left ankle and foot (Chronic) 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[place] coronary artery w/angina pectoris (Chronic) CABG x 3 WALL-LAD, Free MAIK-OM, SVG-RPDA 06/12/18 Chronic diastolic (congestive) heart failure (Chronic) HLD (hyperlipidemia) (Chronic) MSSA bacteremia (Chronic) Sinus bradycardia (Chronic) Atherosclerosis of coronary artery without angina pectoris (Chronic) CABG x 3 WALL-LAD, Free MAIK-OM, SVG-RPDA 06/12/18 H/O coronary artery bypass surgery (Chronic 06/12/18) CABG x 3 WALL-LAD, Free MAIK-OM, SVG-RPDA 06/12/18 Essential hypertension (Chronic) Medical History: Medical History (Last Reviewed 09/29/19 @ 21:[address] Hang Neville MD) 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[place] coronary artery w/angina pectoris (Chronic) I25.119 CABG x 3 WALL-LAD, Free MAIK-OM, SVG-RPDA 06/12/18 Chronic diastolic (congestive) heart failure (Chronic) I50.32 HLD (hyperlipidemia) (Chronic) E78.5 MSSA bacteremia (Chronic) R78.81 Osteomyelitis (Resolved) M86.9 Sinus bradycardia (Chronic) R00.1 Atherosclerosis of coronary artery without angina pectoris (Chronic) I25.10 CABG x 3 WALL-LAD, Free MAIK-OM, SVG-RPDA 06/12/18 Essential hypertension (Chronic) I10 Cataracts, both eyes H26.9 Chronic ulcer of left foot with fat layer exposed L97.522 Diabetic retinopathy E11.319 GERD (gastroesophageal reflux disease) K21.9 Hammer toe of left foot M20.42 Iron deficiency anemia D50.9 Normocytic anemia D64.9 Obesity (BMI 30.0-34.9) E66.9 Type 2 diabetes mellitus E11.9 Diastolic dysfunction with acute on chronic heart failure I50.33 Postoperative atrial fibrillation (Inactive) Onset Date: 06/12/18 I97.89, I48.91 Allergies Penicillins [PCN] Allergy (Verified 09/29/19 16:41) Unknown Home Medications: Ambulatory Orders Medication Instructions Recorded pantoprazole 40 mg tablet,delayed 40 mg PO DAILY 07/24/18 release Aspirin E.C. [Ecotrin] 81 mg PO DAILY 09/09/18 Lisinopril [Zestril] 20 mg PO BID 09/09/18 nitroglycerin 0.4 mg sublingual 0.4 mg SUBLINGUAL Q5M PRN #25 tab 10/17/18 tablet amlodipine 10 mg tablet 10 mg PO DAILY #90 tab 01/16/19 glimepiride 2 mg tablet 2 mg PO DAILY tab 01/16/19 Clopidogrel Bisulfate [Plavix] 75 mg PO DAILY 08/08/19 Gabapentin [Neurontin] 100 mg PO TID 08/08/19 furosemide 40 mg tablet 60 mg PO .COMPLEX tab 08/26/19 metoprolol tartrate 25 mg tablet 12.5 mg PO BID #180 tab 08/26/19 Atorvastatin Calcium [Lipitor] 40 mg PO QHS 09/29/19 Cephalexin [Keflex] 500 mg PO TID 09/29/19 Isosorbide Mononitrate [Isosorbide 30 mg PO DAILY 09/29/19 Mononitrate ER] Metolazone 2.5 mg PO TUFR 09/29/19 Potassium 99 mg PO DAILY 09/30/19 Surgical History: Surgical History (Last Reviewed 09/29/19 @ 21:[address] Hang Neville MD) H/O coronary artery bypass surgery (Chronic) Onset Date: 06/12/18 Z95.1 CABG x 3 WALL-LAD, Free MAIK-OM, SVG-RPDA 06/12/18 Amputated toe of left foot Onset Date: 08/2018 S98.132A History of left heart catheterization Onset Date: 05/20/18 Z98.890 Hx of cholecystectomy Z90.49 S/P meniscectomy Z98.890 Surgical History: cataract, cholecystectomy, coronary bypass surgery, total knee arthroplasty, - - Prior and recent toe partial amputation, skin cancer face resection, Winter 2018 Thoracic spinal surgery for osteomyelitis. Psychiatric History: Depression Smoking Status: Never smoker Tobacco Use: Secondhand - *Family History Maternal Family History: Family History (Last Reviewed 09/29/19 @ 21:[address] Hang Neville MD) Mother Diabetes History Items: Diabetes Paternal Family History: Family History (Last Reviewed 09/29/19 @ 21:[address] Hang Neville MD) Mother Diabetes History Items: Unknown - Patient does not know his paternal family history. Review of Systems Constitutional: Reports: Malaise, Weakness, Fatigue. Denies: Chills, Fever Eyes: Denies: Blurred vision, Double vision HEENT: Denies: Head Aches, Sinus Congestion, Sinus Drainage Cardiovascular: Denies: Chest Pain, Palpitations Respiratory: Reports: Shortness of Breath Gastrointestinal: Denies: Abdominal Pain, Nausea, Vomiting Genitourinary: Denies: Dysuria Musculoskeletal: Denies: Joint Pain, Joint Tenderness Skin: Denies: Rash, Wounds Neurological: Reports: Balance problems Psychiatric: Denies: Anxiety, Depression, Homicidal Ideations, Suicidal Ideations Hematologic/ Lymphatic: Reports: Anemia Patient Problems: Active and Suspected Problems (Last Reviewed 09/29/19 @ 21:[address] Hang Neville MD) Hyponatremia (Acute) Objective: The patient's most recent lab work, culture data and imaging studies have all been personally reviewed. - Physical Exam Vitals/I&O's: Vital Signs Temp Pulse Resp BP Pulse Ox 97.7 F L 56 L 12 149/70 H 98 09/30/19 04:00 09/30/19 06:00 09/30/19 06:00 09/30/19 06:00 09/30/19 06:00 Oxygen Delivery Method Room Air Weight: 194 lb 3.636 oz Body Mass Index (BMI) 26.1 Intake and Output for Last 24 Hours 09/28/19 09/29/19 09/30/19 23:59 23:59 23:59 Intake Total 2082.5 / 2.5 756.67 / 756.67 Output Total 120 / 120 1600 / 1600 Balance 1962.5 / 2.5 -843.33 / -843.33 General: Alert, Oriented x3, Cooperative, No apparent distress HEENT: Atraumatic, Normocephalic Oral: No Gingival or Mucosal Lesions/ Ulcerations Neck: Supple, No Nodes, Trachea Midline Lungs: Normal air movement, No rhonchi, No wheeze, No rales Cardiovascular: Regular rate, Regular Rhythm Abdomen: Bowel Sounds Present, Soft, Non Tender Extremities: No clubbing, No cyanosis, No edema Skin: No breakdown Musculoskeletal: No Tenderness to Palpation of Joints or Extremities Lymphatic: No Cervical, Supraclavicular, or Inguinal Adenopathy Neurological: Cranial nerves II-XII grossly intact, Neuro grossly intact Psych/Mental Status: Alert and oriented to time, place, person, mood and affect Labs (Last 48 Hours) 09/29/19 09/29/19 09/29/19 15:20 17:45 17:45 WBC 6.8 RBC 4.06 L Hgb 11.8 L Hct 33.5 L MCV 82.5 MCH 29.1 MCHC 35.2 RDW Std Deviation 40.5 RDW Coeff of Dipti 13.5 Plt Count 240 MPV 10.2 Immature Gran % (Auto) 0.700 Neut % (Auto) 66.5 Lymph % (Auto) 17.9 L Beck[place] % (Auto) 12.0 H Eos % (Auto) 2.2 Baso % (Auto) 0.7 Absolute Neuts (auto) 4.5 Absolute Lymphs (auto) 1.21 Nucleated RBC % 0 PT 13.2 INR 1.1 APTT 32.0 Sodium Potassium Chloride Carbon Dioxide Anion Gap BUN Creatinine Estim Creat Clear Calc Est GFR (MDRD) Af Amer Est GFR (MDRD) Non-Af BUN/Creatinine Ratio Glucose Serum Osmolality Lactic Acid Calcium Total Bilirubin AST ALT Alkaline Phosphatase Troponin I Total Protein Albumin Globulin Albumin/Globulin Ratio TSH Cortisol Urine Color Urine Clarity Urine pH Ur Specific [place] Urine Protein Urine Glucose (UA) Urine Ketones Urine Occult Blood Urine Nitrite Urine Bilirubin Urine Urobilinogen Ur Leukocyte Esterase Urine RBC Urine WBC Ur Squamous Epith Cells Urine Bacteria Urine Mucus Urine Osmolality Ur Random Sodium COVID-19 (ORAL) Not Detected POC Glucose 09/29/19 09/29/19 09/29/19 17:45 17:45 17:45 WBC RBC Hgb Hct MCV MCH MCHC RDW Std Deviation RDW Coeff of Dipti Plt Count MPV Immature Gran % (Auto) Neut % (Auto) Lymph % (Auto) Beckham % (Auto) Eos % (Auto) Baso % (Auto) Absolute Neuts (auto) Absolute Lymphs (auto) Nucleated RBC % PT INR APTT Sodium 113 L* Potassium 4.1 Chloride 77 L Carbon Dioxide 23.0 Anion Gap 13 BUN 63 H Creatinine 1.71 H Estim Creat Clear Calc 51.27 Est GFR (MDRD) Af Amer 53 L Est GFR (MDRD) Non-Af 43 L BUN/Creatinine Ratio 36.8 H Glucose 94 Serum Osmolality 257 L Lactic Acid 1.0 Calcium 8.9 Total Bilirubin 1.10 H AST 50 H ALT 26 Alkaline Phosphatase 133 H Troponin I < 0.015 Total Protein 8.1 Albumin 3.9 Globulin 4.2 Albumin/Globulin Ratio 0.9 TSH 1.73 Cortisol Urine Color Urine Clarity Urine pH Ur Specific [place] Urine Protein Urine Glucose (UA) Urine Ketones Urine Occult Blood Urine Nitrite Urine Bilirubin Urine Urobilinogen Ur Leukocyte Esterase Urine RBC Urine WBC Ur Squamous Epith Cells Urine Bacteria Urine Mucus Urine Osmolality Ur Random Sodium COVID-19 (ORAL) POC Glucose 09/29/19 09/29/19 09/29/19 18:10 21:05 21:20 WBC RBC Hgb Hct MCV MCH MCHC RDW Std Deviation RDW Coeff of Dipti Plt Count MPV Immature Gran % (Auto) Neut % (Auto) Lymph % (Auto) Beck[place] % (Auto) Eos % (Auto) Baso % (Auto) Absolute Neuts (auto) Absolute Lymphs (auto) Nucleated RBC % PT INR APTT Sodium 116 L* Potassium Chloride Carbon Dioxide Anion Gap BUN Creatinine Estim Creat Clear Calc Est GFR (MDRD) Af Amer Est GFR (MDRD) Non-Af BUN/Creatinine Ratio Glucose Serum Osmolality Lactic Acid Calcium Total Bilirubin AST ALT Alkaline Phosphatase Troponin I Total Protein Albumin Globulin Albumin/Globulin Ratio TSH 1.91 Cortisol Urine Color Yellow Urine Clarity Sl. Cloudy Urine pH 5.0 Ur Specific [place] 1.010 Urine Protein 100 H Urine Glucose (UA) Normal Urine Ketones Negative Urine Occult Blood 25 H Urine Nitrite Negative Urine Bilirubin Negative Urine Urobilinogen Normal Ur Leukocyte Esterase Negative Urine RBC 0-5 SEEN Urine WBC 0 SEEN Ur Squamous Epith Cells 0 SEEN Urine Bacteria 0 SEEN Urine Mucus 0 SEEN Urine Osmolality 193 Ur Random Sodium COVID-19 (ORAL) POC Glucose 09/29/19 09/29/19 09/30/19 21:20 21:21 00:50 WBC RBC Hgb Hct MCV MCH MCHC RDW Std Deviation RDW Coeff of Dipti Plt Count MPV Immature Gran % (Auto) Neut % (Auto) Lymph % (Auto) [place] % (Auto) Eos % (Auto) Baso % (Auto) Absolute Neuts (auto) Absolute Lymphs (auto) Nucleated RBC % PT INR APTT Sodium 118 L* Potassium Chloride Carbon Dioxide Anion Gap BUN Creatinine Estim Creat Clear Calc Est GFR (MDRD) Af Amer Est GFR (MDRD) Non-Af BUN/Creatinine Ratio Glucose Serum Osmolality Lactic Acid Calcium Total Bilirubin AST ALT Alkaline Phosphatase Troponin I Total Protein Albumin Globulin Albumin/Globulin Ratio TSH Cortisol Urine Color Urine Clarity Urine pH Ur Specific [place] Urine Protein Urine Glucose (UA) Urine Ketones Urine Occult Blood Urine Nitrite Urine Bilirubin Urine Urobilinogen Ur Leukocyte Esterase Urine RBC Urine WBC Ur Squamous Epith Cells Urine Bacteria Urine Mucus Urine Osmolality Ur Random Sodium 37 COVID-19 (ORAL) POC Glucose 99 09/30/19 09/30/19 09/30/19 05:10 05:10 05:10 WBC 6.0 RBC 3.75 L Hgb 10.9 L Hct 30.7 L MCV 81.9 MCH 29.1 MCHC 35.5 RDW Std Deviation 39.8 RDW Coeff of Dipti 13.3 Plt Count 175 MPV 10.0 Immature Gran % (Auto) 0.300 Neut % (Auto) 64.1 Lymph % (Auto) 15.2 L [place] % (Auto) 16.7 H Eos % (Auto) 3.0 Baso % (Auto) 0.7 Absolute Neuts (auto) 3.8 Absolute Lymphs (auto) 0.91 Nucleated RBC % 0 PT INR APTT Sodium 121 L Potassium 4.2 Chloride 85 L Carbon Dioxide 25.0 Anion Gap 11 BUN 59 H Creatinine 1.31 H Estim Creat Clear Calc 66.92 Est GFR (MDRD) Af Amer 72 Est GFR (MDRD) Non-Af 59 L BUN/Creatinine Ratio 45.0 H Glucose 102 Serum Osmolality Lactic Acid Calcium 8.4 L Total Bilirubin AST ALT Alkaline Phosphatase Troponin I Total Protein Albumin Globulin Albumin/Globulin Ratio TSH Cortisol Pending Urine Color Urine Clarity Urine pH Ur Specific [place] Urine Protein Urine Glucose (UA) Urine Ketones Urine Occult Blood Urine Nitrite Urine Bilirubin Urine Urobilinogen Ur Leukocyte Esterase Urine RBC Urine WBC Ur Squamous Epith Cells Urine Bacteria Urine Mucus Urine Osmolality Ur Random Sodium COVID-19 (ORAL) POC Glucose Clinical Impression(s) from Imaging Studies Chest X-Ray 09/29/19 17:45 IMPRESSION: No acute thoracic pathology. Electronically Signed: Ken Nieto, at 18:02 EDT Tel , Service support , Current Medications Acetaminophen (Tylenol) 650 mg PO Q6H PRN PRN PRN Reason: Pain Score 1-10/Temp > 100.7 F Amlodipine Besylate (Norvasc) 10 mg PO DAILY [facility] Aspirin (Ecotrin) 81 mg PO DAILYCM [facility] Atorvastatin Calcium (Lipitor) 40 mg PO QHS [facility] Last Admin: 09/29/19 22:12 Dose: 40 mg Documented by: Cephalexin (Keflex) 500 mg PO TID [facility] Last Admin: 09/30/19 05:08 Dose: 500 mg Documented by: Clopidogrel Bisulfate (Plavix) 75 mg PO DAILY [facility] Dextrose (D50w Syringe) 0 gm IV X1 PRN; Protocol PRN Reason: Hypoglycemia Enoxaparin Sodium (Lovenox) 40 mg SC DAILY [facility] Last Admin: 09/29/19 22:12 Dose: 40 mg Documented by: Gabapentin (Neurontin) 100 mg PO BID [facility] Last Admin: 09/29/19 22:12 Dose: 100 mg Documented by: Glimepiride (Amaryl) 2 mg PO DAILYCM [facility] Glucagon () 1 mg IM .X1 PRN PRN Reason: Hypoglycemia Hydralazine HCl (Apresoline Iv) 5 mg IV Q4H PRN PRN PRN Reason: sbp > 160 Last Admin: 09/30/19 05:12 Dose: 5 mg Documented by: Sodium Chloride () 1,000 mls @ 100 mls/hr IV .Q10H [facility] Last Infusion: 09/30/19 04:55 Dose: 100 mls/hr Documented by: Sodium Chloride () 250 mls @ 15 mls/hr IV .[id number] PRN PRN Reason: Saline Flush Sodium Chloride () 250 mls @ 15 mls/hr IV .[id number] PRN PRN Reason: Additional IVPB Infusion Isosorbide Mononitrate (Imdur) 30 mg PO DAILY [facility] Magnesium Hydroxide (Milk Of Magnesia) 30 ml PO DAILY PRN PRN PRN Reason: Constipation Melatonin (Melatonin) 3 mg PO QHS PRN PRN PRN Reason: INSOMNIA Ondansetron HCl (Zofran) 4 mg IV Q8H PRN PRN PRN Reason: NAUSEA/VOMITING Pantoprazole Sodium (Protonix) 40 mg PO DAILY [facility] Sodium Chloride () 10 - 40 ml IV UD PRN PRN Reason: SALINE FLUSH Assessment/Plan Active and Suspected Problems (Last Reviewed 09/29/19 @ 21:[address] Hang Neville MD) Hyponatremia (Acute) RECOMMENDATIONS: 1. Continue gentle IV fluid hydration with normal saline. No current indication for hypertonic saline. 2. Continue to monitor electrolytes closely. 3. Continue to hold diuretics. 4. The patient is medically stable for transfer out of the intensive care unit. IMPRESSIONS: 1. Hyponatremia, likely hypovolemic in etiology The patient was on a rather healthy diuretic regimen under the discretion of cardiology. The patient's diuretics have been placed on hold and the patient was administered normal saline supplemental IV fluid hydration with subsequent improvement in his sodium levels. Recommend continuing the same and continuing to monitor electrolytes closely. No indication for hypertonic saline at this time. 2. Acute kidney injury Likely prerenal in etiology. Anticipate improvement with volume expansion. Continue to monitor urine output. No current indication for renal replacement therapy. 3. Hypertension/hyperlipidemia/GERD/coronary artery disease status post CABG Complicates care, management, recovery and prognosis. Okay to continue home medications. Recommend continuing to hold diuretic therapy. This note was generated with [employer] dictation software. It may contain incorrect words, spelling, and punctuation that were not noted in checking the note before signing. Inpatient E&M: 90776 Init Hosp L3
[2019-09-30] MEDS: 0.9% Normal Saline 1,000 ML 125 ML IV ×2 (07:49→15:57)
[2019-09-30 08:10] LABS: Bedside Glucose 112 mg/dL (70-110)
[2019-09-30 09:15] LABS: Magnesium 1.2 mg/dL (1.6-2.6)
[2019-09-30] MEDS: Enoxaparin 40 MG/0.4 ML Syringe SC (09:25)
[2019-09-30] MEDS: 0.9% Saline Lock 10 ML Syringe IV (09:25)
[2019-09-30] MEDS: Clopidogrel Bisulfate 75 MG Tablet PO (09:26)
[2019-09-30] MEDS: Pantoprazole Sodium 40 MG Tablet PO (09:26)
[2019-09-30] MEDS: Isosorbide Mononitrate 60 MG Tablet PO (09:26)
[2019-09-30] MEDS: Metoprolol Tartrate 25 MG Tablet 12.5 MG PO (09:26)
[2019-09-30] MEDS: Aspirin E.C. 81 MG Tablet PO (09:26)
[2019-09-30] MEDS: Gabapentin 100 MG Capsule PO ×2 (09:26→21:47)
[2019-09-30 09:33] LABS: Anion Gap 7 (5-15); BUN 55 mg/dL (7-18); BUN/Creat Ratio 40.7 RATIO (10-20); Calcium,Total 8.8 mg/dL (8.5-10.1); Chloride 90 mmol/L (98-107); Creatinine, Serum 1.35 mg/dL (0.70-1.30); EST Glomerular Filtration Rate 57 mL/min (>60); Est Glom Filt Rate - Afr Amer 69 mL/min (>60); Estimated Creatinine Clearance 64.94 ml/min; Glucose 156 mg/dL (74-106); Potassium 4.4 mmol/L (3.5-5.1); Sodium Level 122 mmol/L (136-145)
--- NOTE | 2019-09-30 10:24 | CASEMGMT ---
RN CM Assessment Note Diagnosis: Hyponatremia Intro role of CM to patient in room. COVID-19 testing neg per lab. Pt is sitting @ side of bed, awake, alert and able to participate in assessment. States he is still wearing his boot on L foot and following with physician. Pt has Home Care through [facility] only. Call to [facility] [place] to notify of admission, and H/P and resume order faxed. PCP: Dr. Delgado Smith Specialists: Dr. Rodriguez Insurance: [employer] [facility] Preferred Pharmacy: [email or web address] Prescription Benefit: yes LNOK: , Maya Jones Living Arrangements: One story home with . Independent with ADL's. Tranportation: drives or can drive. DME: wheeled walker, quad cane, shower chair wheel chair HHC: [facility] [place]. PH: [phone] FX: [phone] SNF: no Patient DC Goals: Home DC Plan: Home on dc with resumption of [facility] @ home. CM available for discharge planning coordination. Contact CM for any concerns/needs that may arise. Rush RON RN ACM
[2019-09-30] MEDS: Magnesium Sulfate 4gm/100mL 4 GM/100 ML IV.SOLN. IV (10:34)
[2019-09-30 11:50] LABS: Bedside Glucose 160 mg/dL (70-110)
[2019-09-30 16:32] LABS: Anion Gap 7 (5-15); BUN 60 mg/dL (7-18); BUN/Creat Ratio 36.1 RATIO (10-20); Calcium,Total 8.6 mg/dL (8.5-10.1); Chloride 92 mmol/L (98-107); Creatinine, Serum 1.66 mg/dL (0.70-1.30); EST Glomerular Filtration Rate 45 mL/min (>60); Est Glom Filt Rate - Afr Amer 54 mL/min (>60); Estimated Creatinine Clearance 52.81 ml/min; Glucose 179 mg/dL (74-106); Potassium 4.6 mmol/L (3.5-5.1); Sodium Level 124 mmol/L (136-145)
[2019-09-30 16:40] LABS: Bedside Glucose 172 mg/dL (70-110)
[2019-09-30 20:52] LABS: Anion Gap 10 (5-15); BUN 60 mg/dL (7-18); BUN/Creat Ratio 38.2 RATIO (10-20); Calcium,Total 8.6 mg/dL (8.5-10.1); Chloride 91 mmol/L (98-107); Creatinine, Serum 1.57 mg/dL (0.70-1.30); EST Glomerular Filtration Rate 48 mL/min (>60); Est Glom Filt Rate - Afr Amer 58 mL/min (>60); Estimated Creatinine Clearance 55.84 ml/min; Glucose 127 mg/dL (74-106); Potassium 4.6 mmol/L (3.5-5.1); Sodium Level 125 mmol/L (136-145)
[2019-09-30] MEDS: Atorvastatin Calcium 40 MG Tablet PO (21:46)
[2019-09-30 22:16] LABS: Bedside Glucose 135 mg/dL (70-110)
[2019-10-01] MEDS: 0.9% Normal Saline 1,000 ML 125 ML IV ×2 (00:18→08:16)
--- NOTE | 2019-10-01 01:00 | NURSING ---
This nurse gave report to Rohit Mcallister RN. He will take over care of this patient at this time.
[2019-10-01 03:00] VITALS: BP 182/76; PULSE 66; PULSE 68; RESP 16; TEMP 36.7; O2SAT 97
[2019-10-01] MEDS: Cephalexin 500 MG Capsule PO (05:33)
[2019-10-01 06:48] VITALS: PULSE 66
[2019-10-01 06:50] LABS: Absolute Neutrophil Count 4.4 X10^3/uL (2.0-7.7); Basophil# 0.02 X10^3/uL; Basophil% 0.3 % (0-1); Eosinophil# 0.18 X10^3/uL; Eosinophils% 2.9 % (0-5); Hematocrit 30.3 % (40-54); Hemoglobin 10.2 g/dL (13.0-16.5); Lymphocyte % 11.4 % (19-41); Mean Corp Hgb Conc 33.7 g/dL (32-36); Mean Corpuscular Volume 86.1 fL (80-94); Monocyte# 0.79 X10^3/uL; Monocyte% 12.9 % (0-10); NRBC Flagged by Analyzer 0 % (0-5); Neutrophil # 4.41 X10^3/uL (2.7-7.7); Neutrophil % 72.2 % (47-70); Platelet Count 178 K/mm3 (150-450); Red Blood Count 3.52 M/mm3 (4.6-6.2); White Blood Count 6.1 K/mm3 (4.4-11.0)
[2019-10-01 06:50] LABS: Bedside Glucose 113 mg/dL (70-110)
[2019-10-01 07:23] LABS: Anion Gap 8 (5-15); BUN 51 mg/dL (7-18); BUN/Creat Ratio 38.1 RATIO (10-20); Chloride 99 mmol/L (98-107); Creatinine, Serum 1.34 mg/dL (0.70-1.30); EST Glomerular Filtration Rate 58 mL/min (>60); Est Glom Filt Rate - Afr Amer 70 mL/min (>60); Estimated Creatinine Clearance 65.42 ml/min; Glucose 111 mg/dL (74-106); Magnesium 1.9 mg/dL (1.6-2.6); Potassium 4.4 mmol/L (3.5-5.1); Sodium Level 131 mmol/L (136-145)
--- NOTE | 2019-10-01 07:55 | PN_ITS ---
Patient Problems: Active and Suspected Problems (Last Reviewed 09/29/19 @ 21:[address] Hang Neville MD) Hyponatremia (Acute) Subjective: The patient was seen and examined at the bedside this morning. Events from the last 24 hours have been reviewed. The patient is currently afebrile, hemodynamically stable and maintaining appropriate oxygen saturations on room air. Sodium is improved this morning to 131. The patient remains on normal saline at 125 mL's per hour. Renal function appears baseline. Objective: The patient's most recent lab work, culture data and imaging studies have all been personally reviewed. - Physical Exam Vitals/I&O's: Vital Signs Temp Pulse Resp BP Pulse Ox 98.0 F 66 16 182/76 H 97 10/01/19 03:00 10/01/19 06:48 10/01/19 03:00 10/01/19 03:00 10/01/19 03:00 Oxygen Delivery Method Room Air Weight: 191 lb 5.78 oz Body Mass Index (BMI) 26.1 Intake and Output for Last 24 Hours 09/29/19 09/30/19 10/01/19 23:59 23:59 23:59 Intake Total 2082.5 / 2082.5 2801.50 / 2801.50 1000 / 1000 Output Total 120 / 120 2300 / 2300 1974 / 1974 Balance 1962.5 / 1962.5 501.50 / 501.50 -975 / -975 General: Alert, No apparent distress HEENT: Atraumatic, Normocephalic Oral: No Gingival or Mucosal Lesions/ Ulcerations Neck: Supple, No Nodes, Trachea Midline Lungs: No rhonchi, No wheeze, No rales Cardiovascular: Regular rate, Regular Rhythm, Normal S1, Normal S2, No murmurs Abdomen: Bowel Sounds Present, Soft, Non Tender Extremities: No clubbing, No cyanosis, No edema Skin: No breakdown Musculoskeletal: No Tenderness to Palpation of Joints or Extremities, No Muscle Wasting Lymphatic: No Cervical, Supraclavicular, or Inguinal Adenopathy Neurological: Cranial nerves II-XII grossly intact, Neuro grossly intact Psych/Mental Status: Normal Affect, Appropriate Labs (Last 48 Hours) 09/29/19 09/29/19 09/29/19 15:20 17:45 17:45 WBC 6.8 RBC 4.06 L Hgb 11.8 L Hct 33.5 L MCV 82.5 MCH 29.1 MCHC 35.2 RDW Std Deviation 40.5 RDW Coeff of Dipti 13.5 Plt Count 240 MPV 10.2 Immature Gran % (Auto) 0.700 Neut % (Auto) 66.5 Lymph % (Auto) 17.9 L [place] % (Auto) 12.0 H Eos % (Auto) 2.2 Baso % (Auto) 0.7 Absolute Neuts (auto) 4.5 Absolute Lymphs (auto) 1.21 Nucleated RBC % 0 PT 13.2 INR 1.1 APTT 32.0 Sodium Potassium Chloride Carbon Dioxide Anion Gap BUN Creatinine Estim Creat Clear Calc Est GFR (MDRD) Af Amer Est GFR (MDRD) Non-Af BUN/Creatinine Ratio Glucose Serum Osmolality Lactic Acid Calcium Phosphorus Magnesium Total Bilirubin AST ALT Alkaline Phosphatase Troponin I Total Protein Albumin Globulin Albumin/Globulin Ratio TSH Cortisol Urine Color Urine Clarity Urine pH Ur Specific [place] Urine Protein Urine Glucose (UA) Urine Ketones Urine Occult Blood Urine Nitrite Urine Bilirubin Urine Urobilinogen Ur Leukocyte Esterase Urine RBC Urine WBC Ur Squamous Epith Cells Urine Bacteria Urine Mucus Urine Osmolality Ur Random Sodium COVID-19 (ORAL) Not Detected POC Glucose 09/29/19 09/29/19 09/29/19 17:45 17:45 17:45 WBC RBC Hgb Hct MCV MCH MCHC RDW Std Deviation RDW Coeff of Dipti Plt Count MPV Immature Gran % (Auto) Neut % (Auto) Lymph % (Auto) [place] % (Auto) Eos % (Auto) Baso % (Auto) Absolute Neuts (auto) Absolute Lymphs (auto) Nucleated RBC % PT INR APTT Sodium 113 L* Potassium 4.1 Chloride 77 L Carbon Dioxide 23.0 Anion Gap 13 BUN 63 H Creatinine 1.71 H Estim Creat Clear Calc 51.27 Est GFR (MDRD) Af Amer 53 L Est GFR (MDRD) Non-Af 43 L BUN/Creatinine Ratio 36.8 H Glucose 94 Serum Osmolality 257 L Lactic Acid 1.0 Calcium 8.9 Phosphorus Magnesium Total Bilirubin 1.10 H AST 50 H ALT 26 Alkaline Phosphatase 133 H Troponin I < 0.015 Total Protein 8.1 Albumin 3.9 Globulin 4.2 Albumin/Globulin Ratio 0.9 TSH 1.73 Cortisol Urine Color Urine Clarity Urine pH Ur Specific [place] Urine Protein Urine Glucose (UA) Urine Ketones Urine Occult Blood Urine Nitrite Urine Bilirubin Urine Urobilinogen Ur Leukocyte Esterase Urine RBC Urine WBC Ur Squamous Epith Cells Urine Bacteria Urine Mucus Urine Osmolality Ur Random Sodium COVID-19 (ORAL) POC Glucose 09/29/19 09/29/19 09/29/19 18:10 21:05 21:20 WBC RBC Hgb Hct MCV MCH MCHC RDW Std Deviation RDW Coeff of Dipti Plt Count MPV Immature Gran % (Auto) Neut % (Auto) Lymph % (Auto) [place] % (Auto) Eos % (Auto) Baso % (Auto) Absolute Neuts (auto) Absolute Lymphs (auto) Nucleated RBC % PT INR APTT Sodium 116 L* Potassium Chloride Carbon Dioxide Anion Gap BUN Creatinine Estim Creat Clear Calc Est GFR (MDRD) Af Amer Est GFR (MDRD) Non-Af BUN/Creatinine Ratio Glucose Serum Osmolality Lactic Acid Calcium Phosphorus Magnesium Total Bilirubin AST ALT Alkaline Phosphatase Troponin I Total Protein Albumin Globulin Albumin/Globulin Ratio TSH 1.91 Cortisol Urine Color Yellow Urine Clarity Sl. Cloudy Urine pH 5.0 Ur Specific [place] 1.010 Urine Protein 100 H Urine Glucose (UA) Normal Urine Ketones Negative Urine Occult Blood 25 H Urine Nitrite Negative Urine Bilirubin Negative Urine Urobilinogen Normal Ur Leukocyte Esterase Negative Urine RBC 0-5 SEEN Urine WBC 0 SEEN Ur Squamous Epith Cells 0 SEEN Urine Bacteria 0 SEEN Urine Mucus 0 SEEN Urine Osmolality 193 Ur Random Sodium COVID-19 (ORAL) POC Glucose 09/29/19 09/29/19 09/30/19 21:20 21:21 00:50 WBC RBC Hgb Hct MCV MCH MCHC RDW Std Deviation RDW Coeff of Dipti Plt Count MPV Immature Gran % (Auto) Neut % (Auto) Lymph % (Auto) [place] % (Auto) Eos % (Auto) Baso % (Auto) Absolute Neuts (auto) Absolute Lymphs (auto) Nucleated RBC % PT INR APTT Sodium 118 L* Potassium Chloride Carbon Dioxide Anion Gap BUN Creatinine Estim Creat Clear Calc Est GFR (MDRD) Af Amer Est GFR (MDRD) Non-Af BUN/Creatinine Ratio Glucose Serum Osmolality Lactic Acid Calcium Phosphorus Magnesium Total Bilirubin AST ALT Alkaline Phosphatase Troponin I Total Protein Albumin Globulin Albumin/Globulin Ratio TSH Cortisol Urine Color Urine Clarity Urine pH Ur Specific [place] Urine Protein Urine Glucose (UA) Urine Ketones Urine Occult Blood Urine Nitrite Urine Bilirubin Urine Urobilinogen Ur Leukocyte Esterase Urine RBC Urine WBC Ur Squamous Epith Cells Urine Bacteria Urine Mucus Urine Osmolality Ur Random Sodium 37 COVID-19 (ORAL) POC Glucose 99 09/30/19 09/30/19 09/30/19 05:10 05:10 05:10 WBC 6.0 RBC 3.75 L Hgb 10.9 L Hct 30.7 L MCV 81.9 MCH 29.1 MCHC 35.5 RDW Std Deviation 39.8 RDW Coeff of Dipti 13.3 Plt Count 175 MPV 10.0 Immature Gran % (Auto) 0.300 Neut % (Auto) 64.1 Lymph % (Auto) 15.2 L [place] % (Auto) 16.7 H Eos % (Auto) 3.0 Baso % (Auto) 0.7 Absolute Neuts (auto) 3.8 Absolute Lymphs (auto) 0.91 Nucleated RBC % 0 PT INR APTT Sodium 121 L Potassium 4.2 Chloride 85 L Carbon Dioxide 25.0 Anion Gap 11 BUN 59 H Creatinine 1.31 H Estim Creat Clear Calc 66.92 Est GFR (MDRD) Af Amer 72 Est GFR (MDRD) Non-Af 59 L BUN/Creatinine Ratio 45.0 H Glucose 102 Serum Osmolality Lactic Acid Calcium 8.4 L Phosphorus Magnesium Total Bilirubin AST ALT Alkaline Phosphatase Troponin I Total Protein Albumin Globulin Albumin/Globulin Ratio TSH Cortisol 13.80 Urine Color Urine Clarity Urine pH Ur Specific [place] Urine Protein Urine Glucose (UA) Urine Ketones Urine Occult Blood Urine Nitrite Urine Bilirubin Urine Urobilinogen Ur Leukocyte Esterase Urine RBC Urine WBC Ur Squamous Epith Cells Urine Bacteria Urine Mucus Urine Osmolality Ur Random Sodium COVID-19 (ORAL) POC Glucose 09/30/19 09/30/19 09/30/19 05:10 07:46 09:15 WBC RBC Hgb Hct MCV MCH MCHC RDW Std Deviation RDW Coeff of Dipti Plt Count MPV Immature Gran % (Auto) Neut % (Auto) Lymph % (Auto) [place] % (Auto) Eos % (Auto) Baso % (Auto) Absolute Neuts (auto) Absolute Lymphs (auto) Nucleated RBC % PT INR APTT Sodium 122 L Potassium 4.4 Chloride 90 L Carbon Dioxide 25.0 Anion Gap 7 BUN 55 H Creatinine 1.35 H Estim Creat Clear Calc 64.94 Est GFR (MDRD) Af Amer 69 Est GFR (MDRD) Non-Af 57 L BUN/Creatinine Ratio 40.7 H Glucose 156 H Serum Osmolality Lactic Acid Calcium 8.8 Phosphorus 4.0 Magnesium 1.2 L Total Bilirubin AST ALT Alkaline Phosphatase Troponin I Total Protein Albumin Globulin Albumin/Globulin Ratio TSH Cortisol Urine Color Urine Clarity Urine pH Ur Specific [place] Urine Protein Urine Glucose (UA) Urine Ketones Urine Occult Blood Urine Nitrite Urine Bilirubin Urine Urobilinogen Ur Leukocyte Esterase Urine RBC Urine WBC Ur Squamous Epith Cells Urine Bacteria Urine Mucus Urine Osmolality Ur Random Sodium COVID-19 (ORAL) POC Glucose 112 H 09/30/19 09/30/19 09/30/19 11:27 16:07 16:34 WBC RBC Hgb Hct MCV MCH MCHC RDW Std Deviation RDW Coeff of Dipti Plt Count MPV Immature Gran % (Auto) Neut % (Auto) Lymph % (Auto) [place] % (Auto) Eos % (Auto) Baso % (Auto) Absolute Neuts (auto) Absolute Lymphs (auto) Nucleated RBC % PT INR APTT Sodium 124 L Potassium 4.6 Chloride 92 L Carbon Dioxide 25.0 Anion Gap 7 BUN 60 H Creatinine 1.66 H Estim Creat Clear Calc 52.81 Est GFR (MDRD) Af Amer 54 L Est GFR (MDRD) Non-Af 45 L BUN/Creatinine Ratio 36.1 H Glucose 179 H Serum Osmolality Lactic Acid Calcium 8.6 Phosphorus Magnesium Total Bilirubin AST ALT Alkaline Phosphatase Troponin I Total Protein Albumin Globulin Albumin/Globulin Ratio TSH Cortisol Urine Color Urine Clarity Urine pH Ur Specific [place] Urine Protein Urine Glucose (UA) Urine Ketones Urine Occult Blood Urine Nitrite Urine Bilirubin Urine Urobilinogen Ur Leukocyte Esterase Urine RBC Urine WBC Ur Squamous Epith Cells Urine Bacteria Urine Mucus Urine Osmolality Ur Random Sodium COVID-19 (ORAL) POC Glucose 160 H 172 H 09/30/19 09/30/19 10/01/19 20:15 21:50 06:00 WBC 6.1 RBC 3.52 L Hgb 10.2 L Hct 30.3 L MCV 86.1 D MCH 29.0 MCHC 33.7 D RDW Std Deviation 44.0 H RDW Coeff of Dipti 14.0 Plt Count 178 MPV 10.0 Immature Gran % (Auto) 0.300 Neut % (Auto) 72.2 H Lymph % (Auto) 11.4 L [place] % (Auto) 12.9 H Eos % (Auto) 2.9 Baso % (Auto) 0.3 Absolute Neuts (auto) 4.4 Absolute Lymphs (auto) 0.70 L Nucleated RBC % 0 PT INR APTT Sodium 125 L Potassium 4.6 Chloride 91 L Carbon Dioxide 24.0 Anion Gap 10 BUN 60 H Creatinine 1.57 H Estim Creat Clear Calc 55.84 Est GFR (MDRD) Af Amer 58 L Est GFR (MDRD) Non-Af 48 L BUN/Creatinine Ratio 38.2 H Glucose 127 H Serum Osmolality Lactic Acid Calcium 8.6 Phosphorus Magnesium Total Bilirubin AST ALT Alkaline Phosphatase Troponin I Total Protein Albumin Globulin Albumin/Globulin Ratio TSH Cortisol Urine Color Urine Clarity Urine pH Ur Specific [place] Urine Protein Urine Glucose (UA) Urine Ketones Urine Occult Blood Urine Nitrite Urine Bilirubin Urine Urobilinogen Ur Leukocyte Esterase Urine RBC Urine WBC Ur Squamous Epith Cells Urine Bacteria Urine Mucus Urine Osmolality Ur Random Sodium COVID-19 (ORAL) POC Glucose 135 H 10/01/19 10/01/19 06:00 06:47 WBC RBC Hgb Hct MCV MCH MCHC RDW Std Deviation RDW Coeff of Dipti Plt Count MPV Immature Gran % (Auto) Neut % (Auto) Lymph % (Auto) [place] % (Auto) Eos % (Auto) Baso % (Auto) Absolute Neuts (auto) Absolute Lymphs (auto) Nucleated RBC % PT INR APTT Sodium 131 L Potassium 4.4 Chloride 99 Carbon Dioxide 24.0 Anion Gap 8 BUN 51 H Creatinine 1.34 H Estim Creat Clear Calc 65.42 Est GFR (MDRD) Af Amer 70 Est GFR (MDRD) Non-Af 58 L BUN/Creatinine Ratio 38.1 H Glucose 111 H Serum Osmolality Lactic Acid Calcium 9.0 Phosphorus Magnesium 1.9 Total Bilirubin AST ALT Alkaline Phosphatase Troponin I Total Protein Albumin Globulin Albumin/Globulin Ratio TSH Cortisol Urine Color Urine Clarity Urine pH Ur Specific [place] Urine Protein Urine Glucose (UA) Urine Ketones Urine Occult Blood Urine Nitrite Urine Bilirubin Urine Urobilinogen Ur Leukocyte Esterase Urine RBC Urine WBC Ur Squamous Epith Cells Urine Bacteria Urine Mucus Urine Osmolality Ur Random Sodium COVID-19 (ORAL) POC Glucose 113 H Clinical Impression(s) from Imaging Studies Chest X-Ray 09/29/19 17:45 IMPRESSION: No acute thoracic pathology. Electronically Signed: Ken Nieto, at 18:02 EDT Tel , Service support , Current Medications Acetaminophen (Tylenol) 650 mg PO Q6H PRN PRN PRN Reason: Pain Score 1-10/Temp > 100.7 F Albuterol Sulfate (Ventolin Aerosols) 2.5 mg INHALATION Q2H PRN PRN PRN Reason: Dyspnea, wheezing Aspirin (Ecotrin) 81 mg PO DAILYCM REPLACED BY [facility] Last Admin: 09/30/19 09:26 Dose: 81 mg Documented by: Atorvastatin Calcium (Lipitor) 40 mg PO QHS REPLACED BY [facility] Last Admin: 09/30/19 21:46 Dose: 40 mg Documented by: Cephalexin (Keflex) 500 mg PO TID REPLACED BY [facility] Last Admin: 10/01/19 05:33 Dose: 500 mg Documented by: Clopidogrel Bisulfate (Plavix) 75 mg PO DAILY REPLACED BY [facility] Last Admin: 09/30/19 09:26 Dose: 75 mg Documented by: Dextrose (D50w Syringe) 0 gm IV X1 PRN; Protocol PRN Reason: Hypoglycemia Enoxaparin Sodium (Lovenox) 40 mg SC DAILY REPLACED BY [facility] Last Admin: 09/30/19 09:25 Dose: 40 mg Documented by: Gabapentin (Neurontin) 100 mg PO BID REPLACED BY [facility] Last Admin: 09/30/19 21:47 Dose: 100 mg Documented by: Glucagon () 1 mg IM .X1 PRN PRN Reason: Hypoglycemia Hydralazine HCl (Apresoline Iv) 5 mg IV Q4H PRN PRN PRN Reason: sbp > 160 Last Admin: 09/30/19 05:12 Dose: 5 mg Documented by: Sodium Chloride () 250 mls @ 15 mls/hr IV .[id number] PRN PRN Reason: Saline Flush Last Infusion: 09/30/19 10:40 Dose: 0 mls/hr Documented by: Sodium Chloride () 1,000 mls @ 125 mls/hr IV .Q8H REPLACED BY [facility] Last Admin: 10/01/19 00:18 Dose: 125 mls/hr Documented by: Isosorbide Mononitrate (Imdur) 60 mg PO DAILY REPLACED BY [facility] Last Admin: 09/30/19 09:26 Dose: 60 mg Documented by: Magnesium Hydroxide (Milk Of Magnesia) 30 ml PO DAILY PRN PRN PRN Reason: Constipation Melatonin (Melatonin) 3 mg PO QHS PRN PRN PRN Reason: INSOMNIA Metoprolol Tartrate (Lopressor (Beta Monse)) 12.5 mg PO BID REPLACED BY [facility] Last Admin: 09/30/19 21:46 Dose: Not Given Documented by: Ondansetron HCl (Zofran) 4 mg IV Q8H PRN PRN PRN Reason: NAUSEA/VOMITING Pantoprazole Sodium (Protonix) 40 mg PO DAILY REPLACED BY [facility] Last Admin: 09/30/19 09:26 Dose: 40 mg Documented by: Sodium Chloride () 10 - 40 ml IV UD PRN PRN Reason: SALINE FLUSH Last Admin: 09/30/19 09:25 Dose: 10 ml Documented by: Medical Necessity - Tobacco Use Smoking Status: Never smoker Tobacco Use: Secondhand Assessment/Plan All Active Problems (Last Reviewed 09/29/19 @ 21:[address] Hang Neville MD) Hyponatremia (Acute) Osteomyelitis (Resolved) RECOMMENDATIONS: 1. IV fluids can likely be discontinued. 2. Continue to monitor electrolytes closely. 3. Continue to hold diuretics. 4. Close outpatient follow-up with cardiology. 5. Given the lack of further ICU or pulmonary needs, will sign off. Please call with any additional questions. IMPRESSIONS: 1. Hyponatremia, likely hypovolemic in etiology Improved. The patient was on a rather healthy diuretic regimen under the discretion of cardiology. The patient's diuretics have been placed on hold and the patient was administered normal saline supplemental IV fluid hydration with subsequent improvement in his sodium levels. Fluids can likely be discontinued at this time. The patient will require close outpatient follow-up with cardiology to address his need for diuretic therapy in the future. 2. Acute kidney injury Improved. Likely prerenal in etiology. Continue to monitor urine output. No current indication for renal replacement therapy. 3. Hypertension/hyperlipidemia/GERD/coronary artery disease status post CABG Complicates care, management, recovery and prognosis. Okay to continue home medications. Recommend continuing to hold diuretic therapy. This note was generated with Tray dictation software. It may contain incorrect words, spelling, and punctuation that were not noted in checking the note before signing. Inpatient E&M: 50335 Subs Hosp L2
[2019-10-01 08:09] VITALS: BP 157/78; PULSE 51; RESP 16; TEMP 36.8; O2SAT 98
[2019-10-01] MEDS: Isosorbide Mononitrate 60 MG Tablet PO (08:12)
[2019-10-01] MEDS: Aspirin E.C. 81 MG Tablet PO (08:12)
[2019-10-01] MEDS: Pantoprazole Sodium 40 MG Tablet PO (08:13)
[2019-10-01] MEDS: Gabapentin 100 MG Capsule PO (08:13)
[2019-10-01] MEDS: Clopidogrel Bisulfate 75 MG Tablet PO (08:13)
[2019-10-01 08:14] VITALS: PULSE 51
[2019-10-01] MEDS: Metoprolol Tartrate 25 MG Tablet 12.5 MG PO (08:14)
--- NOTE | 2019-10-01 10:55 | PCM.DC ---
- Discharge Diagnoses Current Active Problems: Current Active and Chronic Problems (Last Reviewed 09/29/19 @ 21:[address] Hang Neville MD) Hyponatremia (Acute) You will use the following diet at home:: No restrictions Discharge Activity: Return to Normal Activity Allergies/Adverse Reactions: Allergies Penicillins [PCN] Allergy (Verified 09/29/19 16:41) Unknown Medications to take at Discharge pantoprazole 40 mg tablet,delayed release 40 mg PO DAILY 07/24/18 Aspirin E.C. [Ecotrin] 81 mg PO DAILY 09/09/18 nitroglycerin 0.4 mg sublingual tablet 0.4 mg SUBLINGUAL Q5M PRN #25 tab 10/17/18 glimepiride 2 mg tablet 2 mg PO DAILY tab 01/16/19 Clopidogrel Bisulfate [Plavix] 75 mg PO DAILY 08/08/19 Gabapentin [Neurontin] 100 mg PO TID 08/08/19 metoprolol tartrate 25 mg tablet 12.5 mg PO BID #180 tab 08/26/19 Atorvastatin Calcium [Lipitor] 40 mg PO QHS 09/29/19 Cephalexin [Keflex] 500 mg PO TID 09/29/19 Potassium 99 mg PO DAILY 09/30/19 Furosemide 40 mg PO DAILY #10 tab 10/01/19 Isosorbide Mononitrate [Imdur] 60 mg PO DAILY #60 tab 10/01/19 Lisinopril [Zestril] 20 mg PO DAILY #30 tab 10/01/19 The following prescriptions were given: Isosorbide Mononitrate [Imdur] 60 mg PO DAILY #60 tab Transmission Status: Pending to [id number] Primary Care Physician: Delgado Smith DO [Primary Care Provider] - Please follow up with your Primary Care Physician in: 1 Week Test Results: Test results from this visit will be discussed in further detail at your follow-up appointment, if applicable. Please Follow Up With: Jimmy Yi NP-C When: As scheduled, 10/04/2019 Please Follow Up With: Primary instructional systems design consultant When: 1 Week Proposed Discharge Date: 10/01/19
--- NOTE | 2019-10-01 10:59 | DS.PCM_ITS ---
Discharge Date and Diagnosis Date of Admission: 09/29/19 Date of Discharge: 10/01/19 - Primary Discharge Diagnosis Acute Problems: Active Problems (Last Reviewed 09/29/19 @ 21:[address] Hang Neville MD) 1. Acute on chronic hypovolemic hyponatremia 2. Acute kidney injury on suspected stage III chronic kidney disease 3. CAD with history of CABG x3 4. Chronic diastolic CHF 5. Hypertension 6. Hyperlipidemia 7. Type 2 diabetes mellitus 8. Charcot foot, history of diabetic ulcers with recent MRSA bacteremia - Secondary Discharge Diagnosis Chronic Problems: Chronic Problems (Last Reviewed 09/29/19 @ 21:[address] Hang Neville MD) Bacteremia (Chronic) PAD (peripheral artery disease) (Chronic) Diabetes mellitus, type II (Chronic) Neuropathy (Chronic) Ulcer of left foot (Chronic) Charcot's joint, left ankle and foot (Chronic) 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[place] coronary artery w/angina pectoris (Chronic) CABG x 3 WALL-LAD, Free MAIK-OM, SVG-RPDA 06/12/18 Chronic diastolic (congestive) heart failure (Chronic) HLD (hyperlipidemia) (Chronic) MSSA bacteremia (Chronic) Sinus bradycardia (Chronic) Atherosclerosis of coronary artery without angina pectoris (Chronic) CABG x 3 WALL-LAD, Free MAIK-OM, SVG-RPDA 06/12/18 H/O coronary artery bypass surgery (Chronic 06/12/18) CABG x 3 WALL-LAD, Free MAIK-OM, SVG-RPDA 06/12/18 Essential hypertension (Chronic) Hospital Course and Treatment Imaging Results: Diagnostic Data Chest X-Ray 09/29/19 17:45 IMPRESSION: No acute thoracic pathology. Electronically Signed: Ken Emilia, at 18:02 EDT Tel , Service support , Operations: None Procedures: None Summary of Care Provided: The patient is a 59 year old M admitted 09/29/2019 due to fatigue. 1. Acute on chronic hypovolemic hyponatremia-sodium on admission 113. Diuretics held on admission. IV fluids. Sodium at discharge 131 which is patient's baseline. Patient will resume Lasix 40 mg daily on 10/03/2019. Follow-up with cardiology as scheduled on Saturday with Jimmy yi with plans for repeat BMP at that time. 2. Acute kidney injury on suspected stage III chronic kidney disease-acute kidney injury resolved. Following aviation technical systems specialist out of town. Continue outpatient follow-up. 3. CAD with history of CABG x3-continue aspirin, statin, Plavix, beta-monse, nitrate. 4. Chronic diastolic CHF-resume Lasix 10/03/2019 at 40 mg daily only. Metolazone discontinued. 5. Hypertension, poorly controlled-previously on amlodipine which was discontinued due to increased lower extremity swelling. Home isosorbide regimen increased to 60 mg daily. Home lisinopril regimen resumed with reduced dose of 20 mg daily. Continue home metoprolol regimen. 6. Hyperlipidemia-continue statin. 7. Type 2 diabetes mellitus-continue home oral regimen. 8. Charcot foot, history of diabetic ulcers with recent MRSA bacteremia- completed course of IV antibiotics. Continue Keflex. Continue outpatient follow-up with podiatry. Patient seen and examined prior to discharge. Physical assessment as noted below. Patient is stable for discharge with follow up recommendations as noted above. This patient was seen by FRANCISCO Bazzi under the supervision of Dr. Flores. - Physical Exam Vitals/I&O's: Vital Signs Temp Pulse Resp BP Pulse Ox 98.2 F 51 L 16 157/78 H 98 10/01/19 08:09 10/01/19 08:14 10/01/19 08:09 10/01/19 08:09 10/01/19 08:09 Oxygen Delivery Method Room Air Weight: 191 lb 5.78 oz Body Mass Index (BMI) 26.1 Intake and Output for Last 24 Hours 09/29/19 09/30/19 10/01/19 23:59 23:59 23:59 Intake Total 2081.5 / 2081.5 2801.50 / 2801.50 / Output Total 120 / 120 2300 / 2300 1974 / 1974 Balance 1962.5 / 1961.5 501.50 / 501.50 / General: Alert, Oriented x3, Cooperative HEENT: Atraumatic, PERRLA, EOMI, Normocephalic Neck: Supple, No JVD, Negative Carotid Bruits Lungs: Clear to auscultation, Normal air movement Cardiovascular: Regular rate, No murmurs Abdomen: Bowel Sounds Present, Soft, Non Tender Extremities: No clubbing, No cyanosis, No edema Skin: No rashes, No breakdown, - - Left plantar foot wound. Left lower extremity boot in place. Musculoskeletal: No Tenderness to Palpation of Joints or Extremities Neurological: Cranial nerves II-XII grossly intact Psych/Mental Status: Normal Affect, Appropriate Microbiology Past 72 Hours 09/29/19 18:10 Urine, Clean Catch Urine Culture - Preliminary Culture exhibits no growth. Laboratory Results 09/30/19 11:27: POC Glucose 160 H 09/30/19 16:07: Sodium 124 L, Potassium 4.6, Chloride 92 L, Carbon Dioxide 25.0, Anion Gap 7, BUN 60 H, Creatinine 1.66 H, Estim Creat Clear Calc 52.81, Est GFR (MDRD) Af Amer 54 L, Est GFR (MDRD) Non-Af 45 L, BUN/Creatinine Ratio 36.1 H, Glucose 179 H, Calcium 8.6 09/30/19 16:34: POC Glucose 172 H 09/30/19 20:15: Sodium 125 L, Potassium 4.6, Chloride 91 L, Carbon Dioxide 24.0, Anion Gap 10, BUN 60 H, Creatinine 1.57 H, Estim Creat Clear Calc 55.84, Est GFR (MDRD) Af Amer 58 L, Est GFR (MDRD) Non-Af 48 L, BUN/Creatinine Ratio 38.2 H, Glucose 127 H, Calcium 8.6 09/30/19 21:50: POC Glucose 135 H 10/01/19 06:00: WBC 6.1, RBC 3.52 L, Hgb 10.2 L, Hct 30.3 L, MCV 86.1 D, MCH 29.0, MCHC 33.7 D, RDW Std Deviation 44.0 H, RDW Coeff of Dipti 14.0, Plt Count 178, MPV 10.0, Immature Gran % (Auto) 0.300, Neut % (Auto) 72.2 H, Lymph % (Auto) 11.4 L, [place] % (Auto) 12.9 H, Eos % (Auto) 2.9, Baso % (Auto) 0.3, Absolute Neuts (auto) 4.4, Absolute Lymphs (auto) 0.70 L, Nucleated RBC % 0 10/01/19 06:00: Sodium 131 L, Potassium 4.4, Chloride 99, Carbon Dioxide 24.0, Anion Gap 8, BUN 51 H, Creatinine 1.34 H, Estim Creat Clear Calc 65.42, Est GFR (MDRD) Af Amer 70, Est GFR (MDRD) Non-Af 58 L, BUN/Creatinine Ratio 38.1 H, Glucose 111 H, Calcium 9.0, Magnesium 1.9 10/01/19 06:47: POC Glucose 113 H Current Medications Acetaminophen (Tylenol) 650 mg PO Q6H PRN PRN PRN Reason: Pain Score 1-10/Temp > 100.7 F Albuterol Sulfate (Ventolin Aerosols) 2.5 mg INHALATION Q2H PRN PRN PRN Reason: Dyspnea, wheezing Aspirin (Ecotrin) 81 mg PO DAILYCM [facility] Last Admin: 10/01/19 08:12 Dose: 81 mg Documented by: Atorvastatin Calcium (Lipitor) 40 mg PO QHS [facility] Last Admin: 09/30/19 21:46 Dose: 40 mg Documented by: Cephalexin (Keflex) 500 mg PO TID [facility] Last Admin: 10/01/19 05:33 Dose: 500 mg Documented by: Clopidogrel Bisulfate (Plavix) 75 mg PO DAILY [facility] Last Admin: 10/01/19 08:13 Dose: 75 mg Documented by: Dextrose (D50w Syringe) 0 gm IV X1 PRN; Protocol PRN Reason: Hypoglycemia Enoxaparin Sodium (Lovenox) 40 mg SC DAILY [facility] Last Admin: 10/01/19 08:13 Dose: Not Given Documented by: Gabapentin (Neurontin) 100 mg PO BID [facility] Last Admin: 10/01/19 08:13 Dose: 100 mg Documented by: Glucagon () 1 mg IM .X1 PRN PRN Reason: Hypoglycemia Hydralazine HCl (Apresoline Iv) 5 mg IV Q4H PRN PRN PRN Reason: sbp > 160 Last Admin: 09/30/19 05:12 Dose: 5 mg Documented by: Sodium Chloride () 250 mls @ 15 mls/hr IV .[id number] PRN PRN Reason: Saline Flush Last Infusion: 09/30/19 10:40 Dose: 0 mls/hr Documented by: Sodium Chloride () 1,000 mls @ 125 mls/hr IV .Q8H PENNIE Last Admin: 10/01/19 08:16 Dose: 125 mls/hr Documented by: Isosorbide Mononitrate (Imdur) 60 mg PO DAILY [facility] Last Admin: 10/01/19 08:12 Dose: 60 mg Documented by: Magnesium Hydroxide (Milk Of Magnesia) 30 ml PO DAILY PRN PRN PRN Reason: Constipation Melatonin (Melatonin) 3 mg PO QHS PRN PRN PRN Reason: INSOMNIA Metoprolol Tartrate (Lopressor (Beta Monse)) 12.5 mg PO BID [facility] Last Admin: 10/01/19 08:14 Dose: 12.5 mg Documented by: Ondansetron HCl (Zofran) 4 mg IV Q8H PRN PRN PRN Reason: NAUSEA/VOMITING Pantoprazole Sodium (Protonix) 40 mg PO DAILY [facility] Last Admin: 10/01/19 08:13 Dose: 40 mg Documented by: Sodium Chloride () 10 - 40 ml IV UD PRN PRN Reason: SALINE FLUSH Last Admin: 09/30/19 09:25 Dose: 10 ml Documented by: Discharge Diet: No Restrictions Discharge Activity: Return to Normal Activity Home Medications: Medications to take at Discharge pantoprazole 40 mg tablet,delayed release 40 mg PO DAILY 07/24/18 Aspirin E.C. [Ecotrin] 81 mg PO DAILY 09/09/18 nitroglycerin 0.4 mg sublingual tablet 0.4 mg SUBLINGUAL Q5M PRN #25 tab 10/17/18 glimepiride 2 mg tablet 2 mg PO DAILY tab 01/16/19 Clopidogrel Bisulfate [Plavix] 75 mg PO DAILY 08/08/19 Gabapentin [Neurontin] 100 mg PO TID 08/08/19 metoprolol tartrate 25 mg tablet 12.5 mg PO BID #180 tab 08/26/19 Atorvastatin Calcium [Lipitor] 40 mg PO QHS 09/29/19 Cephalexin [Keflex] 500 mg PO TID 09/29/19 Potassium 99 mg PO DAILY 09/30/19 Furosemide 40 mg PO DAILY #10 tab 10/01/19 Isosorbide Mononitrate [Imdur] 60 mg PO DAILY #60 tab 10/01/19 Lisinopril [Zestril] 20 mg PO DAILY #30 tab 10/01/19 Following Prescrptions Were Given to Patient: Isosorbide Mononitrate [Imdur] 60 mg PO DAILY #60 tab Transmission Status: Pending to [id number] Primary Care Physician: Delgado Smith DO [Primary Care Provider] - Please follow up with your Primary Care Physician in: 1 Week Please Follow Up With: Jimmy Yi NP-C When: As scheduled, 10/04/2019 Please Follow Up With: Primary aviation technical systems specialist When: 1 Week Please Follow Up With: Jemima Barnett DPM When: 3-5 days Disposition: Home Minutes spent on discharge:: 35 Patient Condition:: Stable Medical Necessity - Tobacco Use Smoking Status: Never smoker Tobacco Use: Secondhand Meaningful Use Info Meaningful Use Diagnoses (Choose all that apply): None applicable
[2019-10-01 11:16] VITALS: BP 139/61; PULSE 48; RESP 16; TEMP 36.7; O2SAT 99
--- NOTE | 2019-10-01 11:18 | CASEMGMT ---
LLOYD GAO NOTE: Pt being discharged home. Call placed to [facility] and spoke with Óscar. He was made aware pt is discharging home today. Discharge instructions and summary faxed to [facility] at this time. LLOYD GAO to room to talk with pt. He was made aware [facility] made aware he is being discharged today. He denies having any concerns w/going home @ discharge and denies further needs at this time. Cindi RON LLOYD CM
--- NOTE | 2019-10-01 11:45 | PHA.DC.MR ---
Pharmacy Service has performed discharge medication reconciliation for this patient. The patient's discharge medication list was reviewed for discrepancies and discrepancies were resolved. Home Medications pantoprazole 40 mg tablet,delayed release 40 mg PO DAILY 07/24/18 Aspirin E.C. [Ecotrin] 81 mg PO DAILY 09/09/18 nitroglycerin 0.4 mg sublingual tablet 0.4 mg SUBLINGUAL Q5M PRN #25 tab 10/17/18 glimepiride 2 mg tablet 2 mg PO DAILY tab 01/16/19 Clopidogrel Bisulfate [Plavix] 75 mg PO DAILY 08/08/19 Gabapentin [Neurontin] 100 mg PO TID 08/08/19 metoprolol tartrate 25 mg tablet 12.5 mg PO BID #180 tab 08/26/19 Atorvastatin Calcium [Lipitor] 40 mg PO QHS 09/29/19 Cephalexin [Keflex] 500 mg PO TID 09/29/19 Potassium 99 mg PO DAILY 09/30/19 Furosemide 40 mg PO DAILY #10 tab 10/01/19 Isosorbide Mononitrate [Imdur] 60 mg PO DAILY #60 tab 10/01/19 Lisinopril [Zestril] 20 mg PO DAILY #30 tab 10/01/19
--- NOTE | 2019-10-05 14:42 | CASEMGMT ---
LLOYD GAO DC PHONE CALL DC DATE: 10/01/2019 DC DISPOSITION: Home with [facility] DC DIAGNOSIS: Hyponatremia, hypovolemia LACE/STRATA: 02/15 F/U APPTS MADE PRIOR TO DC: yes. Pt followed up with cash processor PAINTER HAND today PRESCRIPTIONS ACQUIRED BY PT: yes Intro role of CM to patient via phone. Pt states he does not have questions re: instructions, f/u. States [facility] nurse has contacted him and set up visit. Rush HAM RN ACM
== END 2019-10-01 13:35 | disposition home or self-care (01) | DRG 426 ==
LOC: ED 17:17 → ICU 20:50 → PCU 09-30 11:11
PROVIDERS: Admitting Provider Hospitalist; Emergency Provider Emergency Medicine; PCP Family Medicine; Visit Provider Family Medicine
DX: E87.1 Hypo-osmolality and hyponatremia (principal); E86.1 Hypovolemia; I50.32 Chronic diastolic (congestive) heart failure; N17.9 Acute kidney failure, unspecified; E11.319 Type 2 diabetes mellitus with unspecified diabetic retinopathy without macular edema; R00.1 Bradycardia, unspecified; E11.51 Type 2 diabetes mellitus with diabetic peripheral angiopathy without gangrene; G62.9 Polyneuropathy, unspecified; I13.0 Hypertensive heart and chronic kidney disease with heart failure and stage 1 through stage 4 chronic kidney disease, or unspecified chronic kidney disease; N18.3 Chronic kidney disease, stage 3 (moderate); E78.5 Hyperlipidemia, unspecified; I48.91 Unspecified atrial fibrillation; K21.9 Gastro-esophageal reflux disease without esophagitis; I25.10 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of native coronary artery without angina pectoris; E11.40 Type 2 diabetes mellitus with diabetic neuropathy, unspecified; E11.610 Type 2 diabetes mellitus with diabetic neuropathic arthropathy; E11.69 Type 2 diabetes mellitus with other specified complication; Z95.1 Presence of aortocoronary bypass graft; E11.621 Type 2 diabetes mellitus with foot ulcer; L97.529 Non-pressure chronic ulcer of other part of left foot with unspecified severity; F10.20 Alcohol dependence, uncomplicated; Z79.02 Long term (current) use of antithrombotics/antiplatelets; Z79.82 Long term (current) use of aspirin; Z83.3 Family history of diabetes mellitus; Z85.828 Personal history of other malignant neoplasm of skin; Z86.14 Personal history of Methicillin resistant Staphylococcus aureus infection; Z90.49 Acquired absence of other specified parts of digestive tract; Z96.659 Presence of unspecified artificial knee joint; T50.2X5A Adverse effect of carbonic-anhydrase inhibitors, benzothiadiazides and other diuretics, initial encounter; Z86.19 Personal history of other infectious and parasitic diseases
CPT/HCPCS: 36415; 71045; 80048; 80053; 81001; 82533; 82962; 83605; 83735; 83930; 83935; 84100; 84295; 84300; 84443; 84484; 85025; 85610; 85730; 87040; 87086; 87635; 93005; 97802; 99285; G2023; J7030; J7050; A4216; U0003

== ENCOUNTER → 2019-10-05 08:28 | Outpatient (CLI) | payer MEDICAID, SELFPAY ==
[2019-09-29 20:38] VITALS: BMI 26.1
[2019-10-05 09:40] LABS: Anion Gap 7 (5-15); BUN 31 mg/dL (7-18); BUN/Creat Ratio 27.9 RATIO (10-20); Calcium,Total 9.2 mg/dL (8.5-10.1); Chloride 96 mmol/L (98-107); Creatinine, Serum 1.11 mg/dL (0.70-1.30); EST Glomerular Filtration Rate 72 mL/min (>60); Est Glom Filt Rate - Afr Amer 87 mL/min (>60); Glucose 125 mg/dL (74-106); Potassium 4.7 mmol/L (3.5-5.1); Sodium Level 131 mmol/L (136-145)
== END ==
PROVIDERS: PCP Family Medicine; Referring Provider Nurse Practitioner Family; Visit Provider Nurse Practitioner Family
DX: I50.32 Chronic diastolic (congestive) heart failure (principal)
CPT/HCPCS: 36415; 80048

== ENCOUNTER 2019-10-22 08:55 | Outpatient (RCR) | payer MEDICAID, SELFPAY ==
[2019-10-05 11:27] VITALS: BMI 25.0
[2019-10-22 09:30] LABS: Sodium Level 131 mmol/L (136-145)
== END 2019-10-22 18:00 | disposition home or self-care (01) ==
LOC: LAB 08:55
PROVIDERS: PCP Family Medicine; Referring Provider Nurse Practitioner Family; Visit Provider Nurse Practitioner Family
DX: E87.1 Hypo-osmolality and hyponatremia (principal)
CPT/HCPCS: 36415; 84295

== ENCOUNTER → 2019-11-11 09:20 | Outpatient (CLI) | payer MEDICAID, SELFPAY ==
[2019-08-17 08:24] VITALS: BMI 26.9
[2019-10-23 08:22] VITALS: BMI 25.0
[2019-11-11 10:40] LABS: BUN 30 mg/dL (7-18); Creatinine, Serum 1.17 mg/dL (0.70-1.30); Glucose 111 mg/dL (74-106)
[2019-11-11 10:41] LABS: AST(SGOT) 37 U/L (15-37); Alanine Aminotransfer ALT/SGPT 29 U/L (16-61); Albumin, Serum 3.7 g/dL (3.2-5.0); Alkaline Phosphatase 105 U/L (45-117); Anion Gap 4 (5-15); BUN/Creat Ratio 25.6 RATIO (10-20); Calcium,Total 9.2 mg/dL (8.5-10.1); Chloride 97 mmol/L (98-107); EST Glomerular Filtration Rate 67 mL/min (>60); Est Glom Filt Rate - Afr Amer 81 mL/min (>60); Globulin 3.8 g/dL (2.2-4.2); Magnesium 1.5 mg/dL (1.6-2.6); Potassium 4.1 mmol/L (3.5-5.1); Protein, Total 7.5 g/dL (6.4-8.2); Sodium Level 132 mmol/L (136-145); Uric Acid 8.5 mg/dL (3.5-7.2)
== END ==
PROVIDERS: PCP Family Medicine; Referring Provider Internal Medicine Infectious Disease; Visit Provider Internal Medicine Infectious Disease
DX: R78.81 Bacteremia (principal); M86.9 Osteomyelitis, unspecified; I33.0 Acute and subacute infective endocarditis; N04.9 Nephrotic syndrome with unspecified morphologic changes
CPT/HCPCS: 36415; 80053; 83036; 83735; 84550

== ENCOUNTER → 2019-11-27 17:58 | Outpatient (CLI) | payer MEDICAID, SELFPAY ==
[2019-10-23 08:22] VITALS: BMI 25.0
== END ==
PROVIDERS: PCP Family Medicine; Referring Provider Family Medicine; Visit Provider Family Medicine
DX: Z20.828 Contact with and (suspected) exposure to other viral communicable diseases (principal)
CPT/HCPCS: 87635; 94799; U0003

== ENCOUNTER → 2020-04-22 12:36 | Outpatient (CLI) | payer MEDICAID, SELFPAY ==
[2020-03-22 07:56] VITALS: BMI 25.6
[2020-04-22 13:20] LABS: Absolute Lymphocyte Count 0.72 X10^3/uL (0.83-4.51); Absolute Neutrophil Count 6.1 X10^3/uL (2.0-7.7); Basophil# 0.05 X10^3/uL; Basophil% 0.6 % (0-1); Eosinophil# 0.28 X10^3/uL; Eosinophils% 3.4 % (0-5); Hematocrit 32.8 % (40-54); Hemoglobin 11.1 g/dL (13.0-16.5); Lymphocyte # 0.72 X10^3/ul (4.0); Lymphocyte % 8.7 % (19-41); Mean Corp Hgb Conc 33.8 g/dL (32-36); Mean Corpuscular Hgb 31.9 pg (27.0-32.0); Mean Corpuscular Volume 94.3 fL (80-94); Mean Platelet Vol. 10.4 fl (6.2-12.0); Monocyte# 1.02 X10^3/uL; Monocyte% 12.4 % (0-10); NRBC Flagged by Analyzer 0 % (0-5); Neutrophil # 6.14 X10^3/uL (2.7-7.7); Neutrophil % 74.5 % (47-70); Platelet Count 242 K/mm3 (150-450); RBC Distribution Width CV 12.3 % (11.6-14.6); RBC Distribution Width SD 42.5 fl (35.1-43.9); Red Blood Count 3.48 M/mm3 (4.6-6.2); White Blood Count 8.2 K/mm3 (4.4-11.0)
[2020-04-22 13:35] LABS: ALB/GLOB Ratio 0.9 RATIO (0.9-2.4); AST(SGOT) 35 U/L (15-37); Alanine Aminotransfer ALT/SGPT 38 U/L (16-61); Albumin, Serum 3.2 g/dL (3.2-5.0); Alkaline Phosphatase 104 U/L (45-117); Anion Gap 5 (5-15); BUN 24 mg/dL (7-18); BUN/Creat Ratio 17.4 RATIO (10-20); Calcium,Total 8.5 mg/dL (8.5-10.1); Chloride 102 mmol/L (98-107); Creatinine, Serum 1.38 mg/dL (0.70-1.30); EST Glomerular Filtration Rate 56 mL/min (>60); Est Glom Filt Rate - Afr Amer 67 mL/min (>60); Globulin 3.7 g/dL (2.2-4.2); Glucose 179 mg/dL (74-106); Magnesium 1.3 mg/dL (1.6-2.6); Potassium 3.8 mmol/L (3.5-5.1); Protein, Total 6.9 g/dL (6.4-8.2); Sodium Level 133 mmol/L (136-145)
[2020-04-22 13:36] LABS: Protein, Urine (Random) 276.3 mg/dL (<11.9); Protein:Creat Ratio 2607 mg/g CRE (0-200)
[2020-04-22 13:42] LABS: PTHIN 35.1 pg/mL (18.4-80.1)
== END ==
PROVIDERS: PCP Family Medicine; Visit Provider Internal Medicine Nephrology
DX: N04.9 Nephrotic syndrome with unspecified morphologic changes (principal)
CPT/HCPCS: 36415; 80053; 82306; 82570; 83735; 83970; 84156; 85025

== ENCOUNTER 2020-04-24 15:57 | Emergency (ER) | payer MEDICAID, SELFPAY ==
[2020-03-22 07:56] VITALS: BMI 25.6
[2020-04-24 15:58] VITALS: BP 217/102; PULSE 62; RESP 16; TEMP 35.8; BMI 25.9
--- NOTE | 2020-04-24 16:22 | ED.DCSUM_ITS ---
- ER Visit Summary Date of Service: 04/24/20 Chief Complaint: Laceration History of Present Illness: The patient is a [address] Bhakta. He reports that he tripped over a stool. He hit his head, but did not have a loss of consciousness. Is not on anticoagulants. He hit his left elbow. He has p ain that is 1 out of 10 in severity. Patient denies any neck, back, shoulder, wrist, or hip pain. He is right-hand dominant. His tetanus is up-to-date. Review of systems: General: No fever, chills, cold sweats. Cardiovascular: No chest pain, palpitations. Respiratory: No cough, shortness of breath, dyspnea on exertion. Gastrointestinal: No abdominal pain, nausea, vomiting, diarrhea, melena, or hematochezia. Genitourinary: No dysuria, frequency, hematuria. Skin: No rash. Neuro: No headache, numbness, weakness. Physical Examination: Vitals: Stable. Afebrile. Neck: No vertebral tenderness. Full ROM without difficulty. Cleared by NEXUS criteria. Back: No vertebral tenderness. General: A&O x 3. NAD. Cardiovascular exam: Regular rate and rhythm, no murmur, rub or gallop. Respiratory exam: Chest nontender. No crepitus. Clear to auscultation bilaterally. No wheezes or stridor. Abdominal exam: Soft, nontender, nondistended, normal bowel sounds. No pain in RUQ or LUQ specifically. No peritoneal signs. Extremity: 4 cm laceration over the left olecranon process. He has no pain with flexion, extension, or pronation/supination. He has no tenderness palpation over the radial head. He has no pain with axial load of his forearm. He is neurovascular intact distal to this. Test Results: Patient refused x-rays. Emergency Department Course and Treatment: Patient refused pain medications. He had his wound anesthetized and repaired. He tolerated this well. Treatment Plan: Patient is instructed to watch for signs of infection. Follow- up his primary care physician 10 to 14 days for suture removal. Return to the emergency department for any worsening symptoms. Disposition: To home in improved and stable condition. Impression: 1. Laceration left elbow, 4 cm, repaired. Procedure note: Wound was cleansed with chlorhexidine soap. Anesthetized with 1% lidocaine without epinephrine. Copiously irrigated with normal saline. Wound was explored there is no foreign material present. It was closed with 6 simple interrupted 4- 0 ethilon sutures. The patient tolerated it well. This note was generated with [employer] dictation software. It may contain incorrect words, spelling, and punctuation that were not noted in review of the chart prior to signing ED Disposition - Plan for ED Patient: Instructions: ED Laceration: All Closures Referrals: Delgado Smith DO [Primary Care Provider] - 10-14 Days suture removal
[2020-04-24 16:26] VITALS: BP 199/89
[2020-04-24 16:45] VITALS: BP 186/89; PULSE 69; RESP 15; O2SAT 99
[2020-04-24] MEDS: Lidocaine 1% (20 ml mdv) 20 ML Vial INFILT (17:15)
== END 2020-04-24 17:17 | disposition home or self-care (01) ==
PROVIDERS: Emergency Provider Emergency Medicine; PCP Family Medicine
DX: S51.012A Laceration without foreign body of left elbow, initial encounter (principal); I25.10 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of native coronary artery without angina pectoris; I10 Essential (primary) hypertension; E78.00 Pure hypercholesterolemia, unspecified; W01.10XA Fall on same level from slipping, tripping and stumbling with subsequent striking against unspecified object, initial encounter; Z79.82 Long term (current) use of aspirin
CPT/HCPCS: 12002; 99283

== ENCOUNTER → 2020-06-13 12:59 | Outpatient (CLI) | payer MEDICAID, SELFPAY ==
--- NOTE | 2020-06-13 13:01 | ADUL_ITS ---
Reason For Study: Ulcer Left Velocities Ext Iliac Artery, dist = 135 cm./sec. Common Femoral Artery, mid = 212 cm./sec. Supf. Femoral Artery, prox = 188 cm./sec. Supf. Femoral Artery, mid = 94 cm./sec. Supf. Femoral Artery, dist = 116 cm./sec. Profunda Femoral Artery = 152 cm./sec. Popliteal Artery, proximal, = 109 cm./sec. Popliteal Artery, mid = 86 cm./sec. Popliteal Artery, distal = 81 cm./sec. Post. Tibial Artery, prox = 59 cm./sec. Post Tibial Artery, mid = 43 cm./sec. Post Tibial Artery, dist. = 41 cm./sec. No Flow Lt PeroA. Ant.Tibial Artery, prox = 88 cm./sec. Ant Tibial Artery, mid = 71 cm./sec. Ant. Tibial Artery, distal = 74 cm./sec. Interpretation Summary Left leg widely patent and no stenosis except peroneal occlussion. Ordering Physician: Nick Mandel Referring Physician: Delgado Smith Performed By: Zoe Yi, DEJON, RVT
--- NOTE | 2020-06-13 13:02 | ART_ITS ---
Reason For Study: Ulcer Procedure A bilateral lower extremity continuous wave Doppler with analog waveform analysis and ankle brachial indexes. Left Segmental Pressures Left brachial= 180mmHg. Left posterior tibial artery = >254mmHg. Left dorsalis pedis artery = >254mmHg. Left digit = 94 mmHg. Right Segmental Pressures Right brachial= 180mmHg. Right posterior tibial artery = >254mmHg. Right dorsalis pedis artery = >254mmHg. Right digit = 123 mmHg. Indices The right digital-brachial index is 0.68. Rt CLINICAL PSYCHOLOGIST LICENSED and DPA are Non compressible. The left digital- brachial index is 0.52. Lt CLINICAL PSYCHOLOGIST LICENSED and DPA are Non compressible. Interpretation Summary Bilateral noncompressible with bipasic flow. DBI 0.68 and 0.52. Ordering Physician: Nick Mandel Referring Physician: Nick Mandel Performed By: Zoe Yi RDCS/RVT
== END ==
PROVIDERS: PCP Family Medicine; Referring Provider Surgery Vascular Surgery; Visit Provider Surgery Vascular Surgery
DX: I70.245 Atherosclerosis of native arteries of left leg with ulceration of other part of foot (principal); Z48.812 Encounter for surgical aftercare following surgery on the circulatory system
CPT/HCPCS: 93922; 93926

== ENCOUNTER 2020-06-23 09:48 | Outpatient (RCR) | payer MEDICAID, SELFPAY ==
[2020-06-23] MEDS: COVID-19 VACC, MRNA(PFIZER)/PF 30 MCG/0.3 ML SYRINGE IM (07:42)
[2020-07-14] MEDS: COVID-19 VACC, MRNA(PFIZER)/PF 30 MCG/0.3 ML SYRINGE IM (07:36)
== END 2020-09-20 23:59 ==
LOC: IMMUN 09:48
PROVIDERS: PCP Family Medicine; Visit Provider Family Medicine
DX: Z23 Encounter for immunization (principal)
CPT/HCPCS: 0001A; 0002A; 91300

== ENCOUNTER → 2020-07-28 08:53 | Outpatient (CLI) | payer MEDICAID, SELFPAY ==
[2020-07-28 09:52] LABS: Erythrocyte Sedimentation Rate 11 mm/hr (0-20)
[2020-07-28 09:54] LABS: Hemoglobin 11.8 g/dL (13.0-16.5)
[2020-07-28 10:18] LABS: PTHIN 42.9 pg/mL (18.4-80.1)
[2020-07-28 10:29] LABS: Albumin, Serum 3.6 g/dL (3.2-5.0); BUN 14 mg/dL (7-18); BUN/Creat Ratio 11.1 RATIO (10-20); CRP, High Sensitivity Cardiac 0.94 mg/L; Calcium,Total 8.8 mg/dL (8.5-10.1); Chloride 98 mmol/L (98-107); Creatinine, Serum 1.26 mg/dL (0.70-1.30); EST Glomerular Filtration Rate 62 mL/min (>60); Est Glom Filt Rate - Afr Amer 75 mL/min (>60); Ferritin 149 ng/mL (26-388); Glucose 109 mg/dL (74-106); Iron 77 ug/dL (65-175); Iron Binding Capacity,Total 315 ug/dL (250-450); PERCENT IRON SATURATION 24.4 % (15.0-55.0); Phosphorus 3.3 mg/dL (2.5-4.9); Potassium 4.1 mmol/L (3.5-5.1); Sodium Level 132 mmol/L (136-145); Uric Acid 6.5 mg/dL (3.5-7.2)
[2020-07-28 10:48] LABS: HIV - WCH Non-Reactive (Nonreactive); Syphilis Antibodies Non-reactive; Vitamin D,25 Hydroxy 19.7 ng/mL
[2020-07-29 15:52] LABS: ANTINUCLEAR ANTIBODIES DIRECT Negative (Negative)
[2020-08-01 20:07] LABS: Cytoplasmic Ab (C-ANCA) 1:40 titer (Neg:<1:20); HEPATITIS B SURFACE AG Negative (Negative); Hepatitis A AB, Total Positive (Negative); Hepatitis A IgM Antibody Negative (Negative); Hepatitis B Core AB IgM Negative (Negative); Hepatitis B Core Ab Total Negative (Negative); Hepatitis C Ab <0.1 s/co ratio (0.0-0.9); PROEL- A/G Ratio 1.2 (0.7-1.7); PROEL- Albumin 3.7 g/dL (2.9-4.4); PROEL- Alpha-1 Globulin 0.2 g/dL (0.0-0.4); PROEL- Alpha-2 Globulin 0.8 g/dL (0.4-1.0); PROEL- Beta Globulin 1.2 g/dL (0.7-1.3); PROEL- Gamma Globulin 0.9 g/dL (0.4-1.8); PROEL- Globulin, Total 3.2 g/dL (2.2-3.9); PROEL- TOTAL PROTEIN 6.9 g/dL (6.0-8.5)
[2020-08-01 21:53] LABS: Complement C3 123 mg/dL (82-167); Hep B Surface Antibodies Non Reactive (.); Perinuclear Ab (P-ANCA) <1:20 titer (Neg:<1:20)
== END ==
LOC: MTLAB 08:56 → LAB 08:57
PROVIDERS: PCP Family Medicine
DX: N18.31 Chronic kidney disease, stage 3a (principal)
CPT/HCPCS: 36415; 80069; 82306; 82652; 82728; 83540; 83550; 83970; 84165; 84550; 85014; 85018; 85652; 86038; 86141; 86160; 86256; 86703; 86704; 86705; 86706; 86708; 86709; 86780; 86803; 87340

== ENCOUNTER → 2020-07-29 09:37 | Outpatient (CLI) | payer MEDICAID, SELFPAY ==
[2020-07-29 09:53] LABS: Bacteria 0 SEEN /hpf (None Seen); Mucous, Urine 0 SEEN /hpf (<or=2+); Red Blood Cells-Urine 0 SEEN /hpf (0-5); Squamous Epithelial Cells - UA 0 SEEN /hpf (0-5)
[2020-07-29 10:11] LABS: Color, Urine Straw (Yellow); Glucose, Dipstick Normal (Normal); Ketone-Dipstick Negative (Negative); Leukocyte Esterase-Dipstick Negative /ul (Negative); Nitrite-Dipstick Negative (Negative); Occult Blood-Urine Negative /ul (Negative); Protein-Dipstick 100 mg/dl (Negative); Specific Gravity, Urine 1.005 (1.002-1.030); Urine Bilirubin Dipstick Negative (Negative); Urine Clarity Clear (Clear); Urine Urobilinogen Normal (Normal); Urine pH 6.5 (5.0 - 8.0)
[2020-07-29 10:20] LABS: White Blood Cells 0-5 SEEN /hpf (0-5)
[2020-07-29 10:36] LABS: Protein, Urine (Random) 87.2 mg/dL (<11.9); Protein:Creat Ratio 3230 mg/g CRE (0-200)
== END ==
PROVIDERS: PCP Family Medicine
DX: N18.31 Chronic kidney disease, stage 3a (principal)
CPT/HCPCS: 81001; 82570; 84156

== ENCOUNTER → 2020-08-08 08:54 | Outpatient (CLI) | payer MEDICAID, SELFPAY ==
[2020-08-08 10:33] LABS: Hemoglobin A1c 5.6 % (3.8-5.6)
[2020-08-08 11:12] LABS: Cholesterol 186 mg/dL (200); High Density Lipoprotein 111 mg/dL; Triglycerides 102 mg/dL; Very Low Density Lipoprotein 20 mg/dL (5-40)
== END ==
PROVIDERS: PCP Family Medicine; Visit Provider Family Medicine
DX: E11.621 Type 2 diabetes mellitus with foot ulcer (principal); L97.509 Non-pressure chronic ulcer of other part of unspecified foot with unspecified severity
CPT/HCPCS: 36415; 80061; 83036

== ENCOUNTER 2021-05-10 15:31 | Inpatient (IN) | payer MEDICARE, SELFPAY ==
[2021-05-10] VITALS (10 sets, daily range): BP systolic 153–218; BP diastolic 58–121; PULSE 70–81; RESP 16–20; TEMP 36.2–36.6; O2SAT 96–98; BMI 24.1; BMI 23.3
--- NOTE | 2021-05-10 15:48 | EKG12_ITS ---
Test Reason : ABN LABS Blood Pressure : / mmHG Vent. Rate : 074 BPM Atrial Rate : 074 BPM P-R Int : 172 ms QRS Dur : 088 ms QT Int : 518 ms P-R-T Axes : 053 052 089 degrees QTc Int : 574 ms Sinus rhythm with Premature atrial complexes ST & T wave abnormality, consider anterior ischemia Prolonged QT Abnormal ECG Confirmed by PHYLLIS GILLILAND, WALDO ([id number]), video effects editor GALINDO BECKFORD ([id number]) on 05/12/2021 1:07:26 PM Referred By: COURT Confirmed By:MJ FERGUSON MD
--- NOTE | 2021-05-10 16:07 | EX.ED.DYSGE1 ---
HPI History of Present Illness Chief Complaint: Abn Labs Detail of Chief Complaint: Calcium 5.3 Informant: patient and spouse/S.O. 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 He was admitted earlier this month at [facility] for hypercalcemia. He had blood work drawn by his oncologist. Potassium is 5.3. His alk phos was up as well. He is present on no medicine for his calcium. He denies fever, chills night sweats. He does report back pain. He has no metastasis to his back. He also complains of bone pain. He denies loss of bowel or bladder control. He states he is urinating less. He also has had swelling of his lower extremity. He is seen by podiatry for Charcot foot due to diabetes. He denies headache, visual, ocular auditory symptoms. [place] ringing his ears or decreased hearing. No trouble speech or swallowing. He denies cardiac respiratory symptoms. He denies nausea or vomiting. He denies diarrhea. Prior similar symptoms: No Recent Illness/Hospitalization: Yes (For hypercalcemia) [facility] Medical History (Updated 05/10/21 @ 19:[address] Suki Dasilva, DO) Anemia Atherosclerosis of coronary artery without angina pectoris 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[place] coronary artery w/angina pectoris Bacteremia Cancer Cataracts, both eyes Charcot's joint, left ankle and foot CHF (congestive heart failure) Chronic diastolic (congestive) heart failure (Unknown) Chronic pain Chronic ulcer of left foot with fat layer exposed Diabetes Diabetes mellitus, type II Diabetic retinopathy Diastolic dysfunction with acute on chronic heart failure Essential hypertension GERD (gastroesophageal reflux disease) Hammer toe of left foot High cholesterol HLD (hyperlipidemia) Hypertension Hyponatremia Hyponatremia Infection of left foot Iron deficiency anemia MSSA bacteremia Nephrotic syndrome Neuropathy Non-smoker Normocytic anemia Obesity (BMI 30.0-34.9) Osteomyelitis PAD (peripheral artery disease) Postoperative atrial fibrillation (06/12/18) Sinus bradycardia Type 2 diabetes mellitus Ulcer of left foot Home Medications pantoprazole 40 mg tablet,delayed release 40 mg PO DAILY 07/24/18 [History Last Taken 05/10/21] aspirin 81 mg PO DAILY 09/09/18 [History Last Taken 05/09/21] nitroglycerin 0.4 mg sublingual tablet 0.4 mg SUBLINGUAL Q5M PRN #25 tab 10/17/18 [Rx Last Taken 08/08/19] clopidogrel 75 mg PO DAILY 08/08/19 [History Last Taken 05/09/21] lisinopril 20 mg tablet 20 mg PO DAILY #60 tab 10/07/19 [Rx Last Taken 05/10/21] isosorbide mononitrate 60 mg tablet,extended release 24 hr 60 mg PO BID #180 tab 12/14/19 [Rx Last Taken 05/10/21] gabapentin 100 mg capsule 100 mg PO TID cap 03/22/20 [History Last Taken 05/10/21] cholecalciferol (vitamin D3) 125 mcg (5,000 unit) capsule 125 mcg PO ROGERS cap 01/04/21 [History Last Taken 05/07/21] furosemide 40 mg tablet 20 mg PO DAILY tab 01/04/21 [History Last Taken 05/08/21] hydralazine 25 mg tablet 25 mg PO TID 01/04/21 [History Last Taken 05/10/21] atorvastatin 40 mg tablet 40 mg PO QHS #90 tab 01/18/21 [Rx Last Taken 05/09/21] methadone 5 mg PO QHS 05/10/21 [History Last Taken 05/09/21] metoprolol tartrate 25 mg PO DAILY 05/10/21 [History Last Taken 05/10/21] ondansetron HCl [Zofran] 4 mg PO Q6H PRN 05/10/21 [History Last Taken 05/10/21] oxycodone 10 mg PO 4X/DAY PRN PRN 05/10/21 [History Last Taken 05/10/21] pembrolizumab [Keytruda] 25 mg IV .UD 05/10/21 [History Last Taken 05/03/21] sennosides-docusate sodium [Senexon-S] 1 tab PO BID 05/10/21 [History Last Taken 05/09/21] Allergy/AdvReac Type Severity Reaction Status Date / Time Penicillins [PCN] Allergy Unknown Verified 05/10/21 15:35 Family History Mother Diabetes Surgical History Amputated toe of left foot (08/2018) H/O coronary artery bypass surgery (06/12/18) H/O eye surgery History of left heart catheterization (05/20/18) Hx of cholecystectomy S/P meniscectomy Social History household members: spouse Smoking Status: Never smoker substance use type: does not use ROS ROS ED Constitutional Constitutional ED: Reports weight loss; Denies chills, fever(s), subjective or sweats Eyes Eyes: Denies blurry vision, change in vision or diplopia ENT ENT ED: Denies ear pain, rhinorrhea or sore throat Cardiovascular Cardiovascular: Denies chest pain, orthopnea, palpitations or racing heartbeat Respiratory/Chest Respiratory/Chest: Denies cough, dyspnea, dyspnea on exertion or orthopnea Gastrointestinal Gastrointestinal: Denies abdominal pain, diarrhea, melena, nausea or vomiting Genitourinary Genitourinary ED: Denies dysuria, hematuria or urinary frequency Musculoskeletal Musculoskeletal: Reports back pain; Denies arthralgias, myalgias or neck pain Integumentary Denies rash Neurologic Neurologic: Reports paresthesias and weakness; Denies headache(s) Endocrine Endocrinology: Denies heat intolerance, polydipsia, polyphagia or polyuria EXAM Physical Exam Const Vital Signs: 05/10/21 15:32 05/10/21 15:51 05/10/21 15:52 Temperature 97.2 F L Temperature Source Temporal Pulse Rate 73 73 Respiratory Rate 16 20 H Respiratory Effort Normal Non-Labored Respiratory Pattern Normal Blood Pressure 207/79 H 198/103 H Blood Pressure Mean 121 134 Pulse Ox 97 97 Oxygen Delivery Method Room Air Room Air Positive well nourished and well developed Constitutional Narrative: Blood pressure is elevated. General Appearance ED: well developed, NAD, pallor and other He does appear pale. He has scarsdue to squamous cell carcinoma with resection. ; Negative for cyanotic or diaphoretic HEENT Reports TM's clear and dry mucous membranes HEENT Narrative: Positive's Chvostek sign bilaterally. Negative for trauma or tenderness Tympanic Membrane ED: Yes TM's clear Mouth ED: Yes dry mucous membranes Mouth: dry mucous membranes Eyes PERRL and EOMs intact bilaterally Eyes Narrative: There is no nystagmus. There is no APD. General Eye ED: Negative for pale conjunctiva or scleral icterus Neck no lymphadenopathy, supple and no JVD Chest Wall palpation of chest normal Resp normal respiratory effort and clear to auscultation bilaterally Effort and Inspection: Negative for pain with movement Cardio regular rhythm, S1 normal heart sound, S2 normal heart sound and no murmurs; Negative for regular rate GI normal to inspection, nondistended, normoactive bowel sounds, non-tender and non-distended Palpation: soft Back/Spine no CVA tenderness Cervical Spine: Negative for cervical spine tenderness Thoracic Spine / Upper Back: paraspinal muscle tenderness; Negative for thoracic spinal tenderness Lumbar Spine / Lower Back: lumbar spinal tenderness Extremity Negative for normal to inspection Extremity Narrative: Pitting edema of lower extremity. Boot noted on left side for Charcot's foot. General Extremety ED: Yes edema and tenderness General Extremity: edema Neuro oriented x3, CN's II-XII intact bilaterally and no sensory deficits noted Neuro Narrative: DTR 2+ bicep and tricep as well as patella ankle. There is no clonus on the right side. Negative Babinski sign. He does have a positive Trousseau sign. Sensorium / Orientation: alert Motor Exam: strength 5/5 throughout Psych mental status grossly normal Skin no rashes or lesions noted and no wounds General Skin Exam: pallor; Negative for jaundice MDM MDM MDM Narrative Medical decision making narrative: Will obtain comprehensive metabolic panel to measured total protein, albumin and calcium. Ionized calcium was also obtained. Since the patient has positive's Chvostek sign Trousseau sign suspect he does have hypocalcemia. Will await results prior to initiation of therapy. Records from oncologist office were reviewed. Lab Data Attestation: I reviewed the patient's lab results. Lab results narrative: CBC is remarkable for anemia. Comprehensive metabolic panel is remarkable for calcium of 5.4. Since patient is symptomatic we will treat. Total protein is normal albumin is low at 2.5. Calcium is low even with correction of albumin. Labs: Laboratory Results - last 24 hr 05/10/21 05/10/2105/10/22 16:05 16:05 16:05 WBC 6.4 RBC 3.14 L Hgb 8.7 L Hct 27.8 L MCV 88.5 MCH 27.7 MCHC 31.3 L RDW Std Deviation 47.6 H RDW Coeff of Dipti 14.6 Plt Count 242 MPV 10.4 Immature Gran % (Auto) 4.700 H Neut % (Auto) 71.0 H Lymph % (Auto) 7.8 L [place] % (Auto) 14.4 H Eos % (Auto) 1.6 Baso % (Auto) 0.5 Absolute Neuts (auto) 4.6 Absolute Lymphs (auto) 0.50 L Nucleated RBC % 0 Differential Comment SCANNED Sodium 132 L Potassium 3.7 Chloride 96 L Carbon Dioxide 25.0 Anion Gap 11 BUN 21 H Creatinine 1.02 Estim Creat Clear Calc 84.86 Est GFR (MDRD) Af Amer 95 Est GFR (MDRD) Non-Af 79 BUN/Creatinine Ratio 20.6 H Glucose 109 H Calcium 5.4 L* Total Bilirubin 0.60 AST 29 ALT 19 Alkaline Phosphatase 426 H Total Protein 7.5 Albumin 2.5 L Globulin 5.0 H Albumin/Globulin Ratio 0.5 L Vitamin D 25-Hydroxy 67.7 EKG Initial EKG: Attestation: I personally reviewed and interpreted this EKG as follows: Interpretation: Sinus Rhythm (Ventricular rate is 74. There are premature atrial beats noted. [place] interval is 172 ms. Cures duration 88 ms. QT duration 518 ms with a QTC of 574 ms which is prolonged. 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
[2021-05-10 16:17] LABS: Absolute Neutrophil Count 4.6 X10^3/uL (2.0-7.7); Basophil# 0.03 X10^3/uL; Basophil% 0.5 % (0-1); Eosinophils% 1.6 % (0-5); Hematocrit 27.8 % (40-54); Hemoglobin 8.7 g/dL (13.0-16.5); Lymphocyte % 7.8 % (19-41); Mean Corp Hgb Conc 31.3 g/dL (32-36); Mean Corpuscular Hgb 27.7 pg (27.0-32.0); Mean Corpuscular Volume 88.5 fL (80-94); Mean Platelet Vol. 10.4 fl (6.2-12.0); Monocyte# 0.93 X10^3/uL; Monocyte% 14.4 % (0-10); NRBC Flagged by Analyzer 0 % (0-5); Neutrophil # 4.58 X10^3/uL (2.7-7.7); POSITIVE DIFFERENTIAL YES; Platelet Count 242 K/mm3 (150-450); RBC Distribution Width CV 14.6 % (11.6-14.6); RBC Distribution Width SD 47.6 fl (35.1-43.9); Red Blood Count 3.14 M/mm3 (4.6-6.2); White Blood Count 6.4 K/mm3 (4.4-11.0)
[2021-05-10 16:45] LABS: Differential Indicated SCAN CRITERIA MET
[2021-05-10 16:46] LABS: ALB/GLOB Ratio 0.5 RATIO (0.9-2.4); AST(SGOT) 29 U/L (15-37); Alanine Aminotransfer ALT/SGPT 19 U/L (16-61); Albumin, Serum 2.5 g/dL (3.2-5.0); Alkaline Phosphatase 426 U/L (45-117); Anion Gap 11 (5-15); BUN 21 mg/dL (7-18); BUN/Creat Ratio 20.6 RATIO (10-20); Calcium,Total 5.4 mg/dL (8.5-10.1); Chloride 96 mmol/L (98-107); Creatinine, Serum 1.02 mg/dL (0.70-1.30); Differential Comment SCANNED; EST Glomerular Filtration Rate 79 mL/min (>60); Est Glom Filt Rate - Afr Amer 95 mL/min (>60); Estimated Creatinine Clearance 84.86 ml/min; Glucose 109 mg/dL (74-106); Potassium 3.7 mmol/L (3.5-5.1); Protein, Total 7.5 g/dL (6.4-8.2); Sodium Level 132 mmol/L (136-145)
--- NOTE | 2021-05-10 17:15 | CASEMGMT ---
LLOYD CM to room to meet with patient for initial transition planning/care coordination assessment. LLOYD GAO introduced self and role at [facility]. Patient voices understanding and consents to assessment at this time. Patient's Maya Jones present at bedside. Patient is alert and oriented, sitting up on ER cart in no apparent distress and answers all questions appropriately. Care providers, pharmacy, and demographics verified/updated at this time. PCP: Delgado Smith Specialists: Jennifer- cardiology, Dr. Mami Broderick- oncology ([facility]), Ericka- podiatry Preferred Pharm[facility]: [facility]: yes Living Will/HPOA: Patient denies having a living will or HPOA. LNOK: Maya Jones Living Arrangements: Patient lives with in mobile home with a ramp to enter. Patient states unsteady on feet and requires assistance of for ADLs. Patient ambulates with walker, denies recent falls. Smoking/ETOH: Never smoker, denies ETOH or drug use Transportation: drives patient and they deny transportation concerns. DME/HHC/SNF: Patient wears a Charcot Restraint Orthotic Walker ([place]) boot and ambulates using a walker. Other DME available in home: shower chair, grab bars, raised toilet seat and glucometer. Previous HHC through [facility]. Previous SNF stay at [facility]. Patient and have no concerns with going home at time of discharge. CM to follow for any discharge planning/needs. Patient voices no concerns/needs at this time. Advised patient and to ask for CM if any questions/concerns/needs arise. Voices understanding. Plan: home
[2021-05-10] MEDS: Calcium Gluconate 1 GM/10 ML Vial IVP (17:20)
--- NOTE | 2021-05-10 17:22 | NURSING ---
PCU CHITRA HYPOCALCERNIA
--- NOTE | 2021-05-10 18:06 | PCS.PANDOC ---
PANDEMIC DOCUMENTATION INITIATED: Date: 05/10/2021 Time: 4182
[2021-05-10] MEDS: Metoprolol Tartrate 25 MG Tablet 12.5 MG PO (18:34)
[2021-05-10] MEDS: Isosorbide Mononitrate 60 MG Tablet PO ×2 (18:35→22:36)
[2021-05-10] MEDS: hydrALAZINE 25 MG Tablet PO ×2 (18:35→22:36)
--- NOTE | 2021-05-10 18:55 | PCM.HP.STD ---
HPI - General General Date of Admission: 05/10/21 Date of Service: 05/10/21 Chief Complaint: Abnormal labs HPI Narrative CLAY RUBIO, is a 60 M who presented to [facility] emergency department on 05/10/2021 after he was found to have an abnormal calcium level at his oncologist's office. 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 He evidently had a recent hospitalization at [facility] for hypercalcemia. The patient states this was approximately 2 weeks ago and he has not been started on any new medications at that discharge. It is however unclear how long he has been on Keytruda and there seems to be some literature that documents Keytruda induced hypocalcemia. He was having some numbness and tingling in the perioral area with generalized weakness. He is currently on no medications to increase his calcium and upon review of his med list daily to medications that could possibly lower his potassium would be Keytruda and Lasix. In the emergency department he was afebrile with a normal heart rate, his blood pressure was markedly elevated but he indicates he has not yet taken his antihypertensives today, his respiratory rate is 19-20 and his oxygen saturations are 97% on room air. His CBC shows a normal white count with a normocytic anemia and a normal platelet count with no significant left shift. His sodium is slightly low at 132, his potassium is normal his BUN and creatinine are stable his serum calcium was found to be 5.4 and an ionized is ordered but will likely take several days to result. His serum albumin was 2.5. His AST and ALT were normal but his alk phos was 426. He did have positive such as Chvostek sign. In the emergency department he was given 3 g of IV calcium gluconate and request for admission was made given his marked hypocalcemia. [facility] Medical History (Updated 05/10/21 @ 19:[address] Suki Dasilva DO) Anemia Atherosclerosis of coronary artery without angina pectoris 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[place] coronary artery w/angina pectoris Bacteremia Cancer Cataracts, both eyes Charcot's joint, left ankle and foot CHF (congestive heart failure) Chronic diastolic (congestive) heart failure (Unknown) Chronic pain Chronic ulcer of left foot with fat layer exposed Diabetes Diabetes mellitus, type II Diabetic retinopathy Diastolic dysfunction with acute on chronic heart failure Essential hypertension GERD (gastroesophageal reflux disease) Hammer toe of left foot High cholesterol HLD (hyperlipidemia) Hypertension Hyponatremia Hyponatremia Infection of left foot Iron deficiency anemia MSSA bacteremia Nephrotic syndrome Neuropathy Non-smoker Normocytic anemia Obesity (BMI 30.0-34.9) Osteomyelitis PAD (peripheral artery disease) Postoperative atrial fibrillation (06/12/18) Sinus bradycardia Type 2 diabetes mellitus Ulcer of left foot Home Medications pantoprazole 40 mg tablet,delayed release 40 mg PO DAILY 07/24/18 [History Last Taken 05/10/21] aspirin 81 mg PO DAILY 09/09/18 [History Last Taken 05/09/21] nitroglycerin 0.4 mg sublingual tablet 0.4 mg SUBLINGUAL Q5M PRN #25 tab 10/17/18 [Rx Last Taken 08/08/19] clopidogrel 75 mg PO DAILY 08/08/19 [History Last Taken 05/09/21] lisinopril 20 mg tablet 20 mg PO DAILY #60 tab 10/07/19 [Rx Last Taken 05/10/21] isosorbide mononitrate 60 mg tablet,extended release 24 hr 60 mg PO BID #180 tab 12/14/19 [Rx Last Taken 05/10/21] gabapentin 100 mg capsule 100 mg PO TID cap 03/22/20 [History Last Taken 05/10/21] cholecalciferol (vitamin D3) 125 mcg (5,000 unit) capsule 125 mcg PO ROGERS cap 01/04/21 [History Last Taken 05/07/21] furosemide 40 mg tablet 20 mg PO DAILY tab 01/04/21 [History Last Taken 05/08/21] hydralazine 25 mg tablet 25 mg PO TID 01/04/21 [History Last Taken 05/10/21] atorvastatin 40 mg tablet 40 mg PO QHS #90 tab 01/18/21 [Rx Last Taken 05/09/21] methadone 5 mg PO QHS 05/10/21 [History Last Taken 05/09/21] metoprolol tartrate 25 mg PO DAILY 05/10/21 [History Last Taken 05/10/21] ondansetron HCl [Zofran] 4 mg PO Q6H PRN 05/10/21 [History Last Taken 05/10/21] oxycodone 10 mg PO 4X/DAY PRN PRN 05/10/21 [History Last Taken 05/10/21] pembrolizumab [Keytruda] 25 mg IV .UD 05/10/21 [History Last Taken 05/03/21] sennosides-docusate sodium [Senexon-S] 1 tab PO BID 05/10/21 [History Last Taken 05/09/21] Allergy/AdvReac Type Severity Reaction Status Date / Time Penicillins [PCN] Allergy Unknown Verified 05/10/21 15:35 Family History Mother Diabetes Surgical History Amputated toe of left foot (08/2018) H/O coronary artery bypass surgery (06/12/18) H/O eye surgery History of left heart catheterization (05/20/18) Hx of cholecystectomy S/P meniscectomy Social History household members: spouse Smoking Status: Never smoker substance use type: does not use ROS Constitutional Constitutional: Reports weakness; Denies anorexia, change in weight, chills, fatigue, fever(s), malaise, night sweats or other Eyes Eyes: Denies blurry vision, change in eye color, change in vision, discharge from eye(s), double vision, erythema, eye pain, loss of vision or other ENT HEENT: Denies abnormal hearing, dysphagia, ear pain, epistaxis, headache(s), hearing loss, nasal congestion, nasal discharge, post nasal drip, sinus pressure, sore throat or other Respiratory/Chest Respiratory/Chest: Denies cough, dyspnea, excessive phlegm production, hemoptysis, productive cough, shortness of breath at rest, shortness of breath with exertion, wheezing or other Gastrointestinal Gastrointestinal: Denies abdominal pain, coffee ground emesis, constipation, diarrhea, dyspepsia, hematemesis, hematochezia, loose stools, melena, nausea, vomiting or other Genitourinary Genitourinary: Reports difficulty urinating, nocturia, urinary frequency and urinary hesitancy; Denies burning urination, dysuria, hematuria, urinary incontinence, urinary urgency or other Musculoskeletal Musculoskeletal: Reports back pain; Denies arthralgias, joint pain, joint stiffness, joint swelling, myalgias, neck pain or other Neurologic Neurologic: Reports tingling; Denies abnormal gait, abnormal speech, confusion, disequilibrium, dizziness, focal weakness, headache(s), numbness, paresthesias, seizure-like activity, seizures, syncope, tremor(s) or other Psychiatric Psychiatric: Denies anxiety, depression, homicidal ideation, suicidal ideation or other Endocrine Endocrinology: Denies change in body appearance, cold intolerance, excessive sweating, heat intolerance, polydipsia, polyuria or other Hematologic/Lymphatic Hematologic/Lymphatic: Denies anemia, easy bleeding, easy bruising, lymphadenopathy or other Allergic/Immunologic Allergic/Immunologic: Denies rhinitis, hives, eczemia, asthma or other Vital Signs Vital Signs Vital Signs: 05/10/21 15:32 05/10/21 15:51 05/10/21 15:52 Temperature 97.2 F L Temperature Source Temporal Pulse Rate 73 73 Respiratory Rate 16 20 H Respiratory Effort Normal Non-Labored Respiratory Pattern Normal Blood Pressure 207/79 H 198/103 H Blood Pressure [2nd BP] Blood Pressure Mean 121 134 Blood Pressure Mean [2nd BP] Blood Pressure Source Blood Pressure Source [2nd BP] Blood Pressure Position Blood Pressure Position [2nd BP] Blood Pressure Location Blood Pressure Location [2nd BP] Pulse Ox 97 97 Oxygen Delivery Method Room Air Room Air 05/10/21 17:53 05/10/21 18:00 05/10/21 18:34 Temperature 97.2 F L 97.7 F L Temperature Source Temporal Oral Pulse Rate 73 70 70 Respiratory Rate 20 H 19 H Respiratory Effort Respiratory Pattern Blood Pressure 198/103 H 202/112 H Blood Pressure [2nd BP] 202/112 H Blood Pressure Mean 134 142 Blood Pressure Mean [2nd BP] 142 Blood Pressure Source Monitor Blood Pressure Source [2nd BP] Monitor Blood Pressure Position Semi-Fowlers Blood Pressure Position [2nd BP] Semi-Fowlers Blood Pressure Location Left Arm Blood Pressure Location [2nd BP] Left Arm Pulse Ox 97 98 Oxygen Delivery Method Room Air 05/10/21 18:35 Temperature Temperature Source Pulse Rate 70 Respiratory Rate Respiratory Effort Respiratory Pattern Blood Pressure Blood Pressure [2nd BP] Blood Pressure Mean Blood Pressure Mean [2nd BP] Blood Pressure Source Blood Pressure Source [2nd BP] Blood Pressure Position Blood Pressure Position [2nd BP] Blood Pressure Location Blood Pressure Location [2nd BP] Pulse Ox Oxygen Delivery Method Weight Weight: 80.2 kg Body Mass Index (BMI) 23.3 Physical Exam Const alert, oriented x3, no apparent distress and average body habitus Constitutional Narrative: Very pleasant upper middle-aged white male who appears much older than stated age, sitting up in bed, appears comfortable, nontoxic General Appearance: cooperative HEENT normocephalic, head/scalp atraumatic and moist oral mucous membranes HEENT Narrative: Mild hearing loss Eyes PERRL, EOMs intact bilaterally and conjunctivae normal Eyes Narrative: No scleral icterus Neck no lymphadenopathy, supple, no JVD and no carotid bruits Neck Narrative: Trachea midline without any thyroid enlargement Resp normal respiratory effort, no retractions, no use of accessory muscles and clear to auscultation bilaterally Auscultation: Negative for crackles, rales, rhonchi or wheezes Cardio regular rate, regular rhythm, S1 normal heart sound, S2 normal heart sound, no murmurs, no rub, no gallops, no clicks and no JVD GI normal to inspection, nondistended, normoactive bowel sounds, soft to palpation, non-tender and non-distended Extremity no clubbing, cyanosis or edema Peripheral Pulses: Yes pulses 2+ throughout Skin Skin Narrative: Sun damage noted Neuro oriented x3, CN's II-XII intact bilaterally, moves all extremities and no focal motor deficits Neuro Narrative: Positive Chvostek's, generalized weakness is noted Sensorium / Orientation: awake and alert Speech: speech normal Psych affect normal Results Lab / Micro Data Attestation: I reviewed the patient's lab results. Result Diagrams: 05/10/21 16:05 05/10/21 16:05 Labs: Laboratory Results - last 24 hr 05/10/21 16:05: Sodium 132 L, Potassium 3.7, Chloride 96 L, Carbon Dioxide 25.0, Anion Gap 11, BUN 21 H, Creatinine 1.02, Estim Creat Clear Calc 84.86, Est GFR (MDRD) Af Amer 95, Est GFR (MDRD) Non-Af 79, BUN/Creatinine Ratio 20.6 H, Glucose 109 H, Calcium 5.4 L*, Total Bilirubin 0.60, AST 29, ALT 19, Alkaline Phosphatase 426 H, Total Protein 7.5, Albumin 2.5 L, Globulin 5.0 H, Albumin/Globulin Ratio 0.5 L 05/10/21 16:05: WBC 6.4, RBC 3.14 L, Hgb 8.7 L, Hct 27.8 L, MCV 88.5, MCH 27.7, MCHC 31.3 L, RDW Std Deviation 47.6 H, RDW Coeff of Dipti 14.6, Plt Count 242, MPV 10.4, Immature Gran % (Auto) 4.700 H, Neut % (Auto) 71.0 H, Lymph % (Auto) 7.8 L, [place] % (Auto) 14.4 H, Eos % (Auto) 1.6, Baso % (Auto) 0.5, Absolute Neuts (auto) 4.6, Absolute Lymphs (auto) 0.50 L, Nucleated RBC % 0, Differential Comment SCANNED Assessment & Plan Assessment/Plan (1) Hypocalcemia syndrome: (2) Hyponatremia: PLAN: Hypocalcemia-acute -? If related to Keytruda--> may need to consult oncology -Hold Lasix -Ionized calcium is pending but corrected calcium for albumin is 6.6 -Recheck calcium after calcium gluconate infusions have been completed -Check intact PTH -Check vitamin D level -Recent hospitalization at [facility] for hypercalcemia -Records request is in place Chronic hyponatremia -Hold Lasix -Appears to be a chronic issue when compared to previous labs -Repeat CMP in the a.m. Elevated blood pressure with a history of hypertension -Patient has not yet taken his home medications today -We will dose home medications and trend blood pressure -Continue lisinopril 20 mg daily -Continue isosorbide mononitrate 60 mg p.o. twice daily -Continue metoprolol 25 mg daily -Continue hydralazine 25 mg 3 times daily -Hold Lasix Hyperlipidemia -Continue atorvastatin Metastatic squamous cell carcinoma -Mets to bone -Patient is currently on Keytruda -I am wondering if his Keytruda is possibly implicit in his hypocalcemia -Continue pain medication CAD/compensated diastolic heart failure -History of CABG x3 in 2019 -Continue aspirin -Continue Plavix DM-2 with neuropathy -Continue gabapentin -Patient is strictly diet-controlled -No current need for Accu-Cheks or sliding scale DVT prophylaxis -Lovenox -SCDs CODE STATUS -Full code as per discussion with patient the emergency department on admission Charges/Coding Visit Charges Inpatient E&M: 82514 Init Hosp L3
--- NOTE | 2021-05-10 19:31 | NURSING ---
bladder scanned for 415 mL, longoria catheter placed per orders with 700 mL immediate return
[2021-05-10] MEDS: oxyCODONE 5 MG Tablet 10 MG PO (19:54)
[2021-05-10] MEDS: Tamsulosin HCl 0.4 MG Capsule PO (20:40)
[2021-05-10 20:45] LABS: Vitamin D,25 Hydroxy 67.7 ng/mL
[2021-05-10 20:49] LABS: Bacteria 0 SEEN /hpf (None Seen); Color, Urine Yellow (Yellow); Glucose, Dipstick Normal (Normal); Ketone-Dipstick 5 mg/dl (Negative); Leukocyte Esterase-Dipstick Negative /ul (Negative); Mucous, Urine 0 SEEN /hpf (<or=2+); Nitrite-Dipstick Negative (Negative); Occult Blood-Urine Negative /ul (Negative); Protein-Dipstick 500 mg/dl (Negative); Red Blood Cells-Urine 0 SEEN /hpf (0-5); Specific Gravity, Urine 1.015 (1.002-1.030); Squamous Epithelial Cells - UA 0 SEEN /hpf (0-5); Urine Bilirubin Dipstick Negative (Negative); Urine Clarity Clear (Clear); Urine Urobilinogen 4 mg/dl (Normal)
[2021-05-10 20:55] LABS: White Blood Cells 0-5 SEEN /hpf (0-5)
[2021-05-10 21:14] LABS: Calcium,Total 5.6 mg/dL (8.5-10.1)
[2021-05-10] MEDS: Cephalexin 500 MG Capsule PO (22:36)
[2021-05-10] MEDS: Gabapentin 100 MG Capsule PO (22:36)
[2021-05-10] MEDS: Senna/Docusate Sodium 1 Tablet PO (22:36)
[2021-05-10] MEDS: Atorvastatin Calcium 40 MG Tablet PO (22:37)
[2021-05-11] VITALS (21 sets, daily range): BP systolic 128–196; BP diastolic 64–97; PULSE 64–105; RESP 16–18; TEMP 36.3–37.3; O2SAT 96–100
[2021-05-11] MEDS: oxyCODONE 5 MG Tablet 10 MG PO ×3 (02:05→16:52)
[2021-05-11] MEDS: hydrALAZINE 20 MG/ML Vial 10 MG IV ×2 (03:27→11:06)
[2021-05-11] MEDS: hydrALAZINE 25 MG Tablet PO (06:02)
[2021-05-11] MEDS: Gabapentin 100 MG Capsule PO ×3 (06:02→20:28)
[2021-05-11] MEDS: Cephalexin 500 MG Capsule PO ×3 (06:02→20:25)
[2021-05-11 06:06] LABS: Absolute Lymphocyte Count 0.47 X10^3/uL (0.83-4.51); Absolute Neutrophil Count 3.5 X10^3/uL (2.0-7.7); Basophil# 0.03 X10^3/uL; Basophil% 0.6 % (0-1); Eosinophil# 0.11 X10^3/uL; Eosinophils% 2.2 % (0-5); Hematocrit 24.1 % (40-54); Hemoglobin 7.6 g/dL (13.0-16.5); Lymphocyte # 0.47 X10^3/ul (0.83-4.51); Lymphocyte % 9.5 % (19-41); Mean Corp Hgb Conc 31.5 g/dL (32-36); Mean Corpuscular Hgb 27.9 pg (27.0-32.0); Mean Corpuscular Volume 88.6 fL (80-94); Mean Platelet Vol. 10.3 fl (6.2-12.0); Monocyte# 0.67 X10^3/uL; Monocyte% 13.5 % (0-10); NRBC Flagged by Analyzer 0 % (0-5); Neutrophil # 3.48 X10^3/uL (2.7-7.7); Neutrophil % 70.2 % (47-70); POSITIVE DIFFERENTIAL YES; Platelet Count 201 K/mm3 (150-450); RBC Distribution Width CV 14.5 % (11.6-14.6); RBC Distribution Width SD 46.5 fl (35.1-43.9); Red Blood Count 2.72 M/mm3 (4.6-6.2)
[2021-05-11 06:08] LABS: Differential Indicated SCAN CRITERIA MET
[2021-05-11 07:03] LABS: ALB/GLOB Ratio 0.5 RATIO (0.9-2.4); AST(SGOT) 25 U/L (15-37); Alanine Aminotransfer ALT/SGPT 17 U/L (16-61); Albumin, Serum 2.1 g/dL (3.2-5.0); Alkaline Phosphatase 369 U/L (45-117); Anion Gap 9 (5-15); BUN 19 mg/dL (7-18); BUN/Creat Ratio 21.1 RATIO (10-20); Calcium,Total 5.6 mg/dL (8.5-10.1); Chloride 100 mmol/L (98-107); EST Glomerular Filtration Rate 91 mL/min (>60); Est Glom Filt Rate - Afr Amer 110 mL/min (>60); Estimated Creatinine Clearance 96.18 ml/min; Globulin 4.5 g/dL (2.2-4.2); Glucose 103 mg/dL (74-106); Magnesium 1.1 mg/dL (1.6-2.6); Phosphorus 3.2 mg/dL (2.5-4.9); Potassium 3.6 mmol/L (3.5-5.1); Protein, Total 6.6 g/dL (6.4-8.2); Sodium Level 134 mmol/L (136-145); Thyroid Stim Hormone (TSH) 1.23 uIU/mL (0.358-3.74)
[2021-05-11] MEDS: 0.9% Saline Lock 10 ML Syringe IV ×4 (08:40→19:06)
[2021-05-11 08:44] LABS: PTHIN 90.1 pg/mL (18.4-80.1)
[2021-05-11] MEDS: Magnesium Sulfate 4gm/100mL 4 GM/100 ML IV.SOLN. IV (09:14)
[2021-05-11] MEDS: Calcium Carb/Vitamin D 1 TABLET Tablet PO ×3 (09:15→16:53)
[2021-05-11] MEDS: Aspirin E.C. 81 MG Tablet PO (09:15)
[2021-05-11] MEDS: Metoprolol Tartrate 25 MG Tablet PO (09:16)
[2021-05-11] MEDS: Isosorbide Mononitrate 60 MG Tablet PO ×2 (09:16→20:26)
[2021-05-11] MEDS: Clopidogrel Bisulfate 75 MG Tablet PO (09:17)
[2021-05-11] MEDS: Pantoprazole Sodium 40 MG Tablet PO (09:17)
[2021-05-11] MEDS: Enoxaparin 40 MG/0.4 ML Syringe SC (09:17)
[2021-05-11] MEDS: Lisinopril 20 MG Tablet PO (09:18)
[2021-05-11 10:46] LABS: PSA,Total- Diagnostic 0.43 ng/mL (0.0-4.0)
[2021-05-11] MEDS: Acetaminophen 500 MG Tablet 1000 MG PO (11:06)
--- NOTE | 2021-05-11 11:38 | PN.HOSP_ITS ---
Documented by User: Cheli Ramey NP, DIGITAL SALES REPRESENTATIVE-C 05/11/21 11:59 Subjective Subjective Patient seen and examined. Reports he feels shaky. Reports mild nausea without emesis. Tolerating oral intake without difficulty. Patient did have a Zhu catheter placed overnight due to urinary retention. He denies history of retention. Objective Data Objective Data Vital Signs: Vital Signs Temp Pulse Resp BP Pulse Ox 99.1 F 70 18 178/90 H 97 05/11/21 10:18 05/11/21 11:06 05/11/21 10:37 05/11/21 11:06 05/11/21 10:37 Oxygen Delivery Method Room Air Weight: 176 lb 12.972 oz Body Mass Index (BMI) 23.3 Intake & Output: Intake and Output for Last 24 Hours 05/09/21 05/10/21 05/11/21 23:59 23:59 23:59 Intake Total 360 / 360 430 / 430 Output Total 4400 / 4400 825 / 825 Balance -4040 / -4040 -395 / -395 Lab / Micro Data Result Diagrams: 05/11/21 05:01 05/11/21 05:01 Labs: Laboratory Results - last 24 hr 05/10/21 16:05: Sodium 132 L, Potassium 3.7, Chloride 96 L, Carbon Dioxide 25.0, Anion Gap 11, BUN 21 H, Creatinine 1.02, Estim Creat Clear Calc 84.86, Est GFR (MDRD) Af Amer 95, Est GFR (MDRD) Non-Af 79, BUN/Creatinine Ratio 20.6 H, Glucose 109 H, Calcium 5.4 L*, Total Bilirubin 0.60, AST 29, ALT 19, Alkaline Phosphatase 426 H, Total Protein 7.5, Albumin 2.5 L, Globulin 5.0 H, Albumin/Globulin Ratio 0.5 L 05/10/21 16:05: WBC 6.4, RBC 3.14 L, Hgb 8.7 L, Hct 27.8 L, MCV 88.5, MCH 27.7, MCHC 31.3 L, RDW Std Deviation 47.6 H, RDW Coeff of Dipti 14.6, Plt Count 242, MPV 10.4, Immature Gran % (Auto) 4.700 H, Neut % (Auto) 71.0 H, Lymph % (Auto) 7.8 L , [place] % (Auto) 14.4 H, Eos % (Auto) 1.6, Baso % (Auto) 0.5, Absolute Neuts (auto) 4.6, Absolute Lymphs (auto) 0.50 L, Nucleated RBC % 0, Differential Comment SCANNED 05/10/21 16:05: Vitamin D 25-Hydroxy 67.7 05/10/21 16:05: PTH Intact 90.1 H 05/10/21 19:33: Urine Color Yellow, Urine Clarity Clear, Urine pH 6.0, Ur Specific [place] 1.015, Urine Protein 500 H, Urine Glucose (UA) Normal, Urine Ketones 5 H, Urine Occult Blood Negative, Urine Nitrite Negative, Urine Bilirubin Negative, Urine Urobilinogen 4 H, Ur Leukocyte Esterase Negative, Urine RBC 0 SEEN, Urine WBC 0-5 SEEN, Ur Squamous Epith Cells 0 SEEN, Urine Ba cteria 0 SEEN, Urine Mucus 0 SEEN 05/10/21 20:38: Calcium 5.6 L* 05/11/21 05:01: WBC 5.0, RBC 2.72 L, Hgb 7.6 L, Hct 24.1 L, MCV 88.6, MCH 27.9, MCHC 31.5 L, RDW Std Deviation 46.5 H, RDW Coeff of Dipti 14.5, Plt Count 201, MPV 10.3, Immature Gran % (Auto) 4.000 H, Neut % (Auto) 70.2 H, Lymph % (Auto) 9.5 L , [place] % (Auto) 13.5 H, Eos % (Auto) 2.2, Baso % (Auto) 0.6, Absolute Neuts (auto) 3.5, Absolute Lymphs (auto) 0.47 L, Nucleated RBC % 0 05/11/21 05:01: Sodium 134 L, Potassium 3.6, Chloride 100, Carbon Dioxide 25.0, Anion Gap 9, BUN 19 H, Creatinine 0.90, Estim Creat Clear Calc 96.18, Est GFR (MDRD) Af Amer 110, Est GFR (MDRD) Non-Af 91, BUN/Creatinine Ratio 21.1 H, Glucose 103, Calcium 5.6 L*, Phosphorus 3.2, Magnesium 1.1 L, Total Bilirubin 0.60, AST 25, ALT 17, Alkaline Phosphatase 369 H, Total Protein 6.6, Albumin 2.1 L, Globulin 4.5 H, Albumin/Globulin Ratio 0.5 L, TSH 1.23 05/11/21 05:01: Total PSA 0.43 Physical Exam Const alert, oriented x3 and no apparent distress Orientation / Consciousness: awake, oriented to person, oriented to place and oriented to time HEENT normocephalic and moist oral mucous membranes Eyes PERRL, EOMs intact bilaterally and conjunctivae normal Neck no lymphadenopathy Resp normal respiratory effort and clear to auscultation bilaterally Cardio regular rate, regular rhythm and no murmurs Peripheral Pulses: pulses 2+ throughout GI normal to inspection, nondistended, normoactive bowel sounds, non-tender and non-distended Extremity normal to inspection Skin no rashes or lesions noted Lesions: no lesions Rashes: no rashes Trauma: no lacerations or abrasions Neuro CN's II-XII intact bilaterally, no focal motor deficits, no sensory deficits noted and deep tendon reflexes 2+ bilaterally Psych mental status grossly normal and affect normal Assessment & Plan Assessment/Plan (1) Hypocalcemia syndrome: PLAN: 1. Acute hypocalcemia-suspect related to Keytruda. Discussed with patient's primary oncologist. Replace per protocol and trend labs. Patient will follow up with oncology next week for repeat labs and to discuss ongoing plan/treatment. Ionized calcium pending. PTH mildly elevated, 90. Continue calcium supplement, repeat labs. 2. Chronic hyponatremia-Lasix on hold. Trend labs. 3. Hypomagnesia-replaced per protocol, repeat mag in a.m. 4. Urinary retention-initiated on Flomax. Zhu placed due to retention. Voiding trial prior to discharge. 5. Metastatic squamous cell carcinoma-follows with Dr. Broderick, [facility]. Discussed with patient's primary oncologist. Patient has follow-up next week and will discuss ongoing plan at that time. Per oncology, hospice has been discussed with patient and however they have not been amendable at this time. 6. Chronic normocytic anemia-appears stable. Trend CBC. 7. Hypertension, currently above goal-continue lisinopril, isosorbide, metoprolol. Increase hydralazine to 50 mg 3 times daily. Lasix on hold. 8. Hyperlipidemia-continue statin. 9. CAD/chronic heart failure with preserved ejection fraction-previous CABG in 2019. Continue aspirin, Plavix. Lasix on hold. 10. Type 2 diabetes mellitus-diet controlled. Continue gabapentin for neuropathy. DVT prophylaxis-SCDs, Lovenox This patient was seen by FRANCISCO Bazzi under the supervision of Dr. Enciso. Documented by User: Dr. Ruslan Enciso MD 05/11/21 12:35 Objective Data Lab / Micro Data Result Diagrams: 05/11/21 05:01 05/11/21 05:01 Assessment & Plan Addt'l Comments This patient was seen in conjunction with FRANCISCO Bazzi . I have independently interviewed and examined the patient and reviewed pertinent historical, laboratory, and other data. Please refer to FRANCISCO Bazzi note for details of this patient's presentation, findings, and recommendations. I have reviewed FRANCISCO Bazzi note and concur with documented findings. In brief, patient is a 60-year-old gentleman with history of metastatic squamous cell carcinoma involving the skin on [facility] as outpatient who presented with muscle spasms. Patient was found to have a number of significant electrolyte abnormalities including hypomagnesemia severe hypocalcemia low potassium level. Admitted to a monitored bed for subsequent management Physical Examination: GENERAL: cooperative HEENT: Atraumatic; EYES; Anicteric, Normal Conjunctiva NECK; supple, normal thyroid, RESPIRATORY: Diminished to auscultation CARDIOVASCULAR: Regular S1 S2, GI: soft, normoactive bowel sounds, : No Renal angle tenderness; EXTREMITIES: No edema, no clubbing, MUSCULOSKELETAL: no muscle waisting NEURO: Awake; no lateralizing signs. SKIN: No Rash PSYCH; Flat affect Assessment: 1. Hypocalcemia 2. Hypomagnesemia 3. Hyponatremia 4. Coronary artery disease with history of CABG 5. Essential hypertension 6. Metastatic squamous cell carcinoma 7. Dyslipidemia 8. Chronic congestive heart failure with preserved ejection fraction 9. Diabetes mellitus type 2 with neuropathy 10. Hypoalbuminemia 11. DVT prophylaxis Plan; Patient electrolyte abnormalities being replaced aggressively with subsequent monitoring ordered suspicion is patient electrolyte abnormality due to combination of his medications including Lasix as well as Keytruda which is known to cause hypoalbuminemia with subsequent hypocalcemia Recommendations: 1. I have discussed the results of my overview and impressions with the patient 2. Options for management were reviewed Total time spent by myself and the advanced practice practitioner evaluating patient, reviewing labs, subsequent management decisions, discussion with patient as well as other providers 40 minutes ( 25 of which was spent by myself) Charges/Coding Visit Charges Inpatient E&M: 15293 [facility] Hosp L3
--- NOTE | 2021-05-11 14:13 | CHAPLAIN ---
Type of Pastoral Visit _x__ Initial Visit ___ Follow-up Visit ___ On-call Visit ___ General Patient Visit ___ Spiritual Assessment ___ Family Conference ___ Bereavement ___ Rapid Response ___ Code Blue ___ Other (describe below) Pastoral Care Referral From _x__ Patient ___ Family ___ Nurse ___ Physician ___ Commercial Lender ___ Zoo Keeper ___ Other (describe below) Sacrament/Intervention _x__ Active listening ___ Anointing ___ Gnosticism ___ Bereavement ___ Communion _x__ Charlette exploration ___ _x__ Life review _x__ Prayer ___ Reconciliation ___ Sacrament of Sick _x__ Supportive presence ___ Wedding ___ Other (describe below) Pastoral Comments patient remembers talking to this sugar chipper machine operator in previous admissions and had requested support again at this time; pt is facing cancer and has questions about why and what that lead to more discussion and reviewing of patient's perspective; patient indicates that charlette and family are a big part of his life and his support; pt seeking answers but acknowledges that he may have to all the answers
[2021-05-11] MEDS: hydrALAZINE 50 MG Tablet PO ×2 (14:48→20:26)
[2021-05-11 16:42] LABS: Anion Gap 10 (5-15); BUN 21 mg/dL (7-18); BUN/Creat Ratio 18.3 RATIO (10-20); Calcium,Total 6.1 mg/dL (8.5-10.1); Chloride 99 mmol/L (98-107); Creatinine, Serum 1.15 mg/dL (0.70-1.30); EST Glomerular Filtration Rate 68 mL/min (>60); Est Glom Filt Rate - Afr Amer 83 mL/min (>60); Estimated Creatinine Clearance 75.27 ml/min; Glucose 206 mg/dL (74-106); Magnesium 1.8 mg/dL (1.6-2.6); Potassium 3.6 mmol/L (3.5-5.1); Sodium Level 131 mmol/L (136-145)
[2021-05-11] MEDS: Tamsulosin HCl 0.4 MG Capsule PO (16:53)
[2021-05-11] MEDS: Senna/Docusate Sodium 1 Tablet PO (20:26)
[2021-05-11] MEDS: Atorvastatin Calcium 40 MG Tablet PO (20:26)
[2021-05-12] VITALS (7 sets, daily range): BP systolic 158–183; BP diastolic 72–90; PULSE 68–82; RESP 16–18; TEMP 36.8–37.4; O2SAT 96–98
[2021-05-12] MEDS: oxyCODONE 5 MG Tablet 10 MG PO ×2 (05:06→11:27)
[2021-05-12] MEDS: hydrALAZINE 50 MG Tablet PO ×2 (05:07→13:27)
[2021-05-12] MEDS: Cephalexin 500 MG Capsule PO ×2 (05:07→13:27)
[2021-05-12] MEDS: Gabapentin 100 MG Capsule PO ×2 (05:07→13:27)
[2021-05-12 05:35] LABS: Absolute Lymphocyte Count 0.43 X10^3/uL (0.83-4.51); Absolute Neutrophil Count 2.9 X10^3/uL (2.0-7.7); Basophil# 0.02 X10^3/uL; Basophil% 0.5 % (0-1); Eosinophil# 0.12 X10^3/uL; Eosinophils% 2.7 % (0-5); Hematocrit 23.9 % (40-54); Hemoglobin 7.6 g/dL (13.0-16.5); Lymphocyte # 0.43 X10^3/ul (0.83-4.51); Lymphocyte % 9.8 % (19-41); Mean Corp Hgb Conc 31.8 g/dL (32-36); Mean Corpuscular Hgb 27.9 pg (27.0-32.0); Mean Corpuscular Volume 87.9 fL (80-94); Mean Platelet Vol. 10.1 fl (6.2-12.0); Monocyte% 15.9 % (0-10); NRBC Flagged by Analyzer 0 % (0-5); Neutrophil # 2.92 X10^3/uL (2.7-7.7); Neutrophil % 66.5 % (47-70); POSITIVE DIFFERENTIAL YES; Platelet Count 189 K/mm3 (150-450); RBC Distribution Width CV 14.6 % (11.6-14.6); RBC Distribution Width SD 46.5 fl (35.1-43.9); Red Blood Count 2.72 M/mm3 (4.6-6.2); White Blood Count 4.4 K/mm3 (4.4-11.0)
[2021-05-12 05:44] LABS: Differential Indicated SCAN CRITERIA MET
[2021-05-12 06:10] LABS: Differential Comment SCANNED
[2021-05-12 06:12] LABS: Anion Gap 6 (5-15); BUN 18 mg/dL (7-18); BUN/Creat Ratio 16.4 RATIO (10-20); Calcium,Total 6.6 mg/dL (8.5-10.1); Chloride 100 mmol/L (98-107); EST Glomerular Filtration Rate 72 mL/min (>60); Est Glom Filt Rate - Afr Amer 87 mL/min (>60); Estimated Creatinine Clearance 78.69 ml/min; Glucose 119 mg/dL (74-106); Magnesium 1.8 mg/dL (1.6-2.6); Potassium 3.7 mmol/L (3.5-5.1); Sodium Level 131 mmol/L (136-145)
[2021-05-12] MEDS: Isosorbide Mononitrate 60 MG Tablet PO (09:02)
[2021-05-12] MEDS: Calcium Carb/Vitamin D 1 TABLET Tablet PO ×2 (09:02→11:28)
[2021-05-12] MEDS: Aspirin E.C. 81 MG Tablet PO (09:02)
[2021-05-12] MEDS: Enoxaparin 40 MG/0.4 ML Syringe SC (09:03)
[2021-05-12] MEDS: Lisinopril 20 MG Tablet PO (09:03)
[2021-05-12] MEDS: Pantoprazole Sodium 40 MG Tablet PO (09:03)
[2021-05-12] MEDS: Clopidogrel Bisulfate 75 MG Tablet PO (09:03)
[2021-05-12] MEDS: Senna/Docusate Sodium 1 Tablet PO (09:03)
[2021-05-12] MEDS: Metoprolol Tartrate 50 MG Tablet PO (09:03)
--- NOTE | 2021-05-12 11:58 | PCM.DC ---
Discharge Instructions Diet Discharge Diet: No restrictions Activity Discharge Activity: Return to Normal Activity Dressing / Incision Call your doctor if you observe: Shortness of breath, Dizziness and Chest pain Follow Up Care Test Results: Test results from this visit will be discussed in further detail at your follow-up appointment, if applicable. Discharge Plan Admission Admit Date/Time: 05/10/21 17:19 Primary Reason for Your Visit: Low calcium Attending Provider: Ruslan Enciso Primary Care Provider: Delgado Smith Discharge Orders/Prescriptions Prescriptions: New metoprolol tartrate 50 mg Tablet 50 mg PO DAILY 30 Days Qty: 30 RF: 0 hydralazine 50 mg Tablet 50 mg PO TID 30 Days Qty: 90 RF: 0 calcium carbonate 500 mg calcium (1,250 mg) tablet 1,000 mg PO BID 30 Days Qty: 120 RF: 0 Mag 64 64 mg tablet,delayed release (DR/EC) 64 mg PO DAILY Qty: 30 RF: 0 tamsulosin 0.4 mg capsule 0.4 mg PO QHS Qty: 30 RF: 0 Continued pantoprazole 40 mg tablet,delayed release (DR/EC) 40 mg PO DAILY RF: 0 nitroglycerin 0.4 mg tablet, sublingual 0.4 mg sublingual Q5M PRN (Reason: Cardiac/Chest Pain) Qty: 25 RF: 6 cholecalciferol (vitamin D3) 125 mcg (5,000 unit) capsule 125 mcg PO ROGERS RF: 0 aspirin 81 MG tablet 81 mg PO DAILY RF: 0 clopidogrel 75 MG tablet 75 mg PO DAILY RF: 0 gabapentin 100 mg capsule 100 mg PO TID RF: 0 ondansetron HCl 4 mg Tablet 4 mg PO Q6H PRN (Reason: Nausea) RF: 0 oxycodone 10 mg Tablet 10 mg PO 4X/DAY PRN PRN (Reason: Pain) RF: 0 sennosides-docusate sodium [Senexon-S] 8.6-50 mg tablet 1 tab PO BID RF: 0 methadone 5 mg tablet 5 mg PO QHS RF: 0 Keytruda 25 mg/mL Solution 25 mg IV .UD RF: 0 lisinopril 20 mg tablet 20 mg PO DAILY Qty: 60 RF: 11 isosorbide mononitrate 60 mg tablet extended release 24 hr 60 mg PO BID Qty: 180 RF: 3 atorvastatin 40 mg tablet 40 mg PO QHS Qty: 90 RF: 3 Discontinued hydralazine 25 mg tablet 25 mg PO TID RF: 0 furosemide 40 mg tablet 20 mg PO DAILY RF: 0 metoprolol tartrate 25 mg tablet 25 mg PO DAILY RF: 0 Referrals / Follow Up: Oncology, Dr. Hitchcock [Other] - 05/24/21 (Follow-up as scheduled) Delgado Smith DO [Primary Care Provider] - In 1 Week Disposition Disposition (needs filled in before D/C Order can be placed): Home, Self Care
--- NOTE | 2021-05-12 12:17 | CASEMGMT ---
This RN CM to room to discuss discharge plan with pt/. Pt updated on C therapy and questions answered. Pt declines HHC at this time but is aware that his physician(s) can order once home. Pt frustrated with his age and how weak he is d/t his cancer. Emotional support provided. Pilar DESAI CM
--- NOTE | 2021-05-12 12:18 | DS.PCM_ITS ---
Documented by User: Cheli Ramey NP, SENIOR TELECOMMUNICATIONS SPECIALIST-C 05/12/21 12:23 Providers Date of Admission: 05/10/21 Date of Discharge: 05/12/21 Primary Care Physician: Dr. Delgado Smith DO Reason For Visit: HYPOCALCEMIA Diagnosis Discharge Diagnosis (1) Hypocalcemia syndrome: Status: Acute Code(s): E83.51 - Hypocalcemia Medications at Discharge Home Medications pantoprazole 40 mg tablet,delayed release 40 mg PO DAILY 07/24/18 aspirin 81 mg PO DAILY 09/09/18 nitroglycerin 0.4 mg sublingual tablet 0.4 mg SUBLINGUAL Q5M PRN #25 tab 10/17/18 clopidogrel 75 mg PO DAILY 08/08/19 lisinopril 20 mg tablet 20 mg PO DAILY #60 tab 10/07/19 isosorbide mononitrate 60 mg tablet,extended release 24 hr 60 mg PO BID #180 tab 12/14/19 gabapentin 100 mg capsule 100 mg PO TID cap 03/22/20 cholecalciferol (vitamin D3) 125 mcg (5,000 unit) capsule 125 mcg PO ROGERS cap 01/04/21 atorvastatin 40 mg tablet 40 mg PO QHS #90 tab 01/18/21 Keytruda 25 mg IV .UD 05/10/21 methadone 5 mg PO QHS 05/10/21 ondansetron HCl 4 mg PO Q6H PRN 05/10/21 oxycodone 10 mg PO 4X/DAY PRN PRN 05/10/21 sennosides-docusate sodium [Senexon-S] 1 tab PO BID 05/10/21 calcium carbonate 1,000 mg PO BID 30 Days #120 tab 05/12/21 hydralazine 50 mg PO TID 30 Days #90 tab 05/12/21 magnesium chloride [Mag 64] 64 mg PO DAILY #30 tab 05/12/21 metoprolol tartrate 50 mg PO DAILY 30 Days #30 tab 05/12/21 tamsulosin 0.4 mg PO QHS #30 cap 05/12/21 Hospital Course Operations None Procedures None Summary of Care Provided Hospital Course: Patient is a 60-year-old male admitted 05/10/2021 due to abnormal labs. 1. Acute hypocalcemia-suspect related to Keytruda. Discussed with patient's primary oncologist. Replaced per protocol. Patient will follow up with onc ology 05/24/21 to repeat labs and to discuss ongoing plan/treatment. Ionized calcium pending. PTH mildly elevated, 90. Home calcium supplement increased. Follow-up with PCP and oncology. 2. Chronic hyponatremia-continue to hold Lasix at discharge. Stable. 3. Hypomagnesia-replaced per protocol. Continue magnesium supplement at discharge. 4. Urinary retention-initiated on Flomax. Zhu catheter removed, completed voiding trial prior to discharge. 5. Metastatic squamous cell carcinoma-follows with Dr. Broderick, [facility]. Discussed with patient's primary oncologist. Patient has follow-up 05/24 and will discuss ongoing plan at that time. Per oncology, hospice has been disc ussed with patient and however they have not been amendable at this time. 6. Chronic normocytic anemia-appears stable. 7. Hypertension, currently above goal-continue lisinopril, isosorbide. Increase hydralazine to 50 mg 3 times daily. Increase metoprolol to 50 mg daily. 8. Hyperlipidemia-continue statin. 9. CAD/chronic heart failure with preserved ejection fraction-previous CABG in 2019. Continue aspirin, Plavix. 10. Type 2 diabetes mellitus-diet controlled. Continue gabapentin for neuropathy. Physical Exam Const alert, oriented x3 and no apparent distress Orientation / Consciousness: awake, oriented to person, oriented to place and oriented to time HEENT normocephalic and moist oral mucous membranes Eyes PERRL, EOMs intact bilaterally and conjunctivae normal Neck no lymphadenopathy Resp normal respiratory effort and clear to auscultation bilaterally Cardio regular rate, regular rhythm and no murmurs Peripheral Pulses: pulses 2+ throughout GI normal to inspection, nondistended, normoactive bowel sounds, non-tender and non-distended Extremity normal to inspection Skin no rashes or lesions noted Lesions: no lesions Rashes: no rashes Trauma: no lacerations or abrasions Neuro CN's II-XII intact bilaterally, no focal motor deficits, no sensory deficits noted and deep tendon reflexes 2+ bilaterally Psych mental status grossly normal and affect normal Patient seen and examined prior to discharge. Physical assessment as noted above. Patient is stable for discharge with follow up recommendations as noted above. This patient was seen by FRANCISCO Bazzi under the supervision of Dr. Enciso. Weight / BMI Weight Weight: 176 lb 12.972 oz Body Mass Index (BMI) 23.3 ABG / Lab / Microbiology Data Result Diagrams: 05/12/21 05:10 05/12/21 05:10 Laboratory: Laboratory Results - last 24 hr 05/11/21 14:32: Sodium 131 L, Potassium 3.6, Chloride 99, Carbon Dioxide 22.0, Anion Gap 10, BUN 21 H, Creatinine 1.15, Estim Creat Clear Calc 75.27, Est GFR (MDRD) Af Amer 83, Est GFR (MDRD) Non-Af 68, BUN/Creatinine Ratio 18.3, Glucose 206 H, Calcium 6.1 L*, Magnesium 1.8 05/12/21 05:10: WBC 4.4, RBC 2.72 L, Hgb 7.6 L, Hct 23.9 L, MCV 87.9, MCH 27.9, MCHC 31.8 L, RDW Std Deviation 46.5 H, RDW Coeff of Dipti 14.6, Plt Count 189, MPV 10.1, Immature Gran % (Auto) 4.600 H, Neut % (Auto) 66.5, Lymph % (Auto) 9.8 L, Saline % (Auto) 15.9 H, Eos % (Auto) 2.7, Baso % (Auto) 0.5, Absolute Neuts (auto) 2.9, Absolute Lymphs (auto) 0.43 L, Nucleated RBC % 0, Differential Comment SCANNED 05/12/21 05:10: Sodium 131 L, Potassium 3.7, Chloride 100, Carbon Dioxide 25.0, Anion Gap 6, BUN 18, Creatinine 1.10, Estim Creat Clear Calc 78.69, Est GFR (MDRD) Af Amer 87, Est GFR (MDRD) Non-Af 72, BUN/Creatinine Ratio 16.4, Glucose 119 H, Calcium 6.6 L, Magnesium 1.8 D/C Instructions Discharge Diet: No restrictions Call your doctor if you observe: Shortness of breath, Dizziness and Chest pain Meaningful Use Info Meaningful Use Diagnoses (Choose all that apply): None applicable Discharge Plan Admission Admit Date/Time: 05/10/21 17:19 Primary Reason for Your Visit: Low calcium Attending Provider: Ruslan Enciso Primary Care Provider: Delgado Smith Discharge Orders/Prescriptions Prescriptions: New metoprolol tartrate 50 mg Tablet 50 mg PO DAILY 30 Days Qty: 30 RF: 0 hydralazine 50 mg Tablet 50 mg PO TID 30 Days Qty: 90 RF: 0 calcium carbonate 500 mg calcium (1,250 mg) tablet 1,000 mg PO BID 30 Days Qty: 120 RF: 0 Mag 64 64 mg tablet,delayed release (DR/EC) 64 mg PO DAILY Qty: 30 RF: 0 tamsulosin 0.4 mg capsule 0.4 mg PO QHS Qty: 30 RF: 0 Continued pantoprazole 40 mg tablet,delayed release (DR/EC) 40 mg PO DAILY RF: 0 nitroglycerin 0.4 mg tablet, sublingual 0.4 mg sublingual Q5M PRN (Reason: Cardiac/Chest Pain) Qty: 25 RF: 6 cholecalciferol (vitamin D3) 125 mcg (5,000 unit) capsule 125 mcg PO ROGERS RF: 0 aspirin 81 MG tablet 81 mg PO DAILY RF: 0 clopidogrel 75 MG tablet 75 mg PO DAILY RF: 0 gabapentin 100 mg capsule 100 mg PO TID RF: 0 ondansetron HCl 4 mg Tablet 4 mg PO Q6H PRN (Reason: Nausea) RF: 0 oxycodone 10 mg Tablet 10 mg PO 4X/DAY PRN PRN (Reason: Pain) RF: 0 sennosides-docusate sodium [Senexon-S] 8.6-50 mg tablet 1 tab PO BID RF: 0 methadone 5 mg tablet 5 mg PO QHS RF: 0 Keytruda 25 mg/mL Solution 25 mg IV .UD RF: 0 lisinopril 20 mg tablet 20 mg PO DAILY Qty: 60 RF: 11 isosorbide mononitrate 60 mg tablet extended release 24 hr 60 mg PO BID Qty: 180 RF: 3 atorvastatin 40 mg tablet 40 mg PO QHS Qty: 90 RF: 3 Discontinued hydralazine 25 mg tablet 25 mg PO TID RF: 0 furosemide 40 mg tablet 20 mg PO DAILY RF: 0 metoprolol tartrate 25 mg tablet 25 mg PO DAILY RF: 0 Referrals / Follow Up: Oncology, Dr. Hitchcock [Other] - 05/24/21 (Follow-up as scheduled) Delgado Smith DO [Primary Care Provider] - In 1 Week Disposition Disposition (needs filled in before D/C Order can be placed): Home, Self Care Documented by User: Dr. Rusaln Enciso MD 05/12/21 12:50 Providers Date of Admission: 05/10/21 Reason For Visit: HYPOCALCEMIA Medications at Discharge Home Medications pantoprazole 40 mg tablet,delayed release 40 mg PO DAILY 07/24/18 aspirin 81 mg PO DAILY 09/09/18 nitroglycerin 0.4 mg sublingual tablet 0.4 mg SUBLINGUAL Q5M PRN #25 tab 10/17/18 clopidogrel 75 mg PO DAILY 08/08/19 lisinopril 20 mg tablet 20 mg PO DAILY #60 tab 10/07/19 isosorbide mononitrate 60 mg tablet,extended release 24 hr 60 mg PO BID #180 tab 12/14/19 gabapentin 100 mg capsule 100 mg PO TID cap 03/22/20 cholecalciferol (vitamin D3) 125 mcg (5,000 unit) capsule 125 mcg PO ROGERS cap 01/04/21 atorvastatin 40 mg tablet 40 mg PO QHS #90 tab 01/18/21 Keytruda 25 mg IV .UD 05/10/21 methadone 5 mg PO QHS 05/10/21 ondansetron HCl 4 mg PO Q6H PRN 05/10/21 oxycodone 10 mg PO 4X/DAY PRN PRN 05/10/21 sennosides-docusate sodium [Senexon-S] 1 tab PO BID 05/10/21 calcium carbonate 1,000 mg PO BID 30 Days #120 tab 05/12/21 hydralazine 50 mg PO TID 30 Days #90 tab 05/12/21 magnesium chloride [Mag 64] 64 mg PO DAILY #30 tab 05/12/21 metoprolol tartrate 50 mg PO DAILY 30 Days #30 tab 05/12/21 tamsulosin 0.4 mg PO QHS #30 cap 05/12/21 Hospital Course Operations None Summary of Care Provided Minutes Spent on Discharge: 35 Hospital Course: This patient was seen in conjunction with ANNAMARIE Bazzi . I have independently interviewed and examined the patient and reviewed pertinent historical, laboratory, and other data. Please refer to FRANCISCO Bazzi note for details of this patient's presentation, findings, and recommendations. I have reviewed FRANCISCO Bazzi note and concur with documented findings. In brief, patient is a 60-year-old gentleman with history of metastatic squamous cell carcinoma involving the skin on Keytruda as outpatient who presented with muscle spasms. Patient was found to have a number of significant electrolyte abnormalities including hypomagnesemia severe hypocalcemia low potassium level. Admitted to a monitored bed for subsequent management Physical Examination: GENERAL: cooperative HEENT: Atraumatic; EYES; Anicteric, Normal Conjunctiva NECK; supple, normal thyroid, RESPIRATORY: Diminished to auscultation CARDIOVASCULAR: Regular S1 S2, GI: soft, normoactive bowel sounds, : No Renal angle tenderness; EXTREMITIES: No edema, no clubbing, MUSCULOSKELETAL: no muscle waisting NEURO: Awake; no lateralizing signs. SKIN: No Rash PSYCH; Flat affect Assessment: 1. Hypocalcemia 2. Hypomagnesemia 3. Hyponatremia 4. Coronary artery disease with history of CABG 5. Essential hypertension 6. Metastatic squamous cell carcinoma 7. Dyslipidemia 8. Chronic congestive heart failure with preserved ejection fraction 9. Diabetes mellitus type 2 with neuropathy 10. Hypoalbuminemia 11. DVT prophylaxis Hospital course; as documented above Total time spent by myself and the advanced practice practitioner evaluating patient, reviewing labs, subsequent management decisions, discussion with patient as well as other providers 35 minutes ( 20 of which was spent by myself) ABG / Lab / Microbiology Data Result Diagrams: 05/12/21 05:10 05/12/21 05:10 Discharge Plan Admission Admit Date/Time: 05/10/21 17:19 Primary Reason for Your Visit: Low calcium Attending Provider: Ruslan Enciso Primary Care Provider: Delgado Smith Discharge Orders/Prescriptions Prescriptions: New metoprolol tartrate 50 mg Tablet 50 mg PO DAILY 30 Days Qty: 30 RF: 0 hydralazine 50 mg Tablet 50 mg PO TID 30 Days Qty: 90 RF: 0 calcium carbonate 500 mg calcium (1,250 mg) tablet 1,000 mg PO BID 30 Days Qty: 120 RF: 0 Mag 64 64 mg tablet,delayed release (DR/EC) 64 mg PO DAILY Qty: 30 RF: 0 tamsulosin 0.4 mg capsule 0.4 mg PO QHS Qty: 30 RF: 0 Continued pantoprazole 40 mg tablet,delayed release (DR/EC) 40 mg PO DAILY RF: 0 nitroglycerin 0.4 mg tablet, sublingual 0.4 mg sublingual Q5M PRN (Reason: Cardiac/Chest Pain) Qty: 25 RF: 6 cholecalciferol (vitamin D3) 125 mcg (5,000 unit) capsule 125 mcg PO ROGERS RF: 0 aspirin 81 MG tablet 81 mg PO DAILY RF: 0 clopidogrel 75 MG tablet 75 mg PO DAILY RF: 0 gabapentin 100 mg capsule 100 mg PO TID RF: 0 ondansetron HCl 4 mg Tablet 4 mg PO Q6H PRN (Reason: Nausea) RF: 0 oxycodone 10 mg Tablet 10 mg PO 4X/DAY PRN PRN (Reason: Pain) RF: 0 sennosides-docusate sodium [Senexon-S] 8.6-50 mg tablet 1 tab PO BID RF: 0 methadone 5 mg tablet 5 mg PO QHS RF: 0 Keytruda 25 mg/mL Solution 25 mg IV .UD RF: 0 lisinopril 20 mg tablet 20 mg PO DAILY Qty: 60 RF: 11 isosorbide mononitrate 60 mg tablet extended release 24 hr 60 mg PO BID Qty: 180 RF: 3 atorvastatin 40 mg tablet 40 mg PO QHS Qty: 90 RF: 3 Discontinued hydralazine 25 mg tablet 25 mg PO TID RF: 0 furosemide 40 mg tablet 20 mg PO DAILY RF: 0 metoprolol tartrate 25 mg tablet 25 mg PO DAILY RF: 0 Referrals / Follow Up: Oncology, Dr. Hitchcock [Other] - 05/24/21 (Follow-up as scheduled) Delgado Smith DO [Primary Care Provider] - In 1 Week Disposition Disposition (needs filled in before D/C Order can be placed): Home, Self Care Charges/Coding Visit Charges Inpatient E&M: 36258 Disch Hosp Hospital Course Operations None
== END 2021-05-12 14:02 | disposition home or self-care (01) | DRG 641 ==
LOC: ED 17:01 → PCU 17:34
PROVIDERS: Nurse Practitioner Family; Admitting Provider Internal Medicine; Emergency Provider Emergency Medicine; PCP Family Medicine; Visit Provider Internal Medicine
DX: E83.51 Hypocalcemia (principal); C79.51 Secondary malignant neoplasm of bone; E87.1 Hypo-osmolality and hyponatremia; I50.32 Chronic diastolic (congestive) heart failure; E11.610 Type 2 diabetes mellitus with diabetic neuropathic arthropathy; I11.0 Hypertensive heart disease with heart failure; E11.40 Type 2 diabetes mellitus with diabetic neuropathy, unspecified; D64.9 Anemia, unspecified; E11.51 Type 2 diabetes mellitus with diabetic peripheral angiopathy without gangrene; E78.00 Pure hypercholesterolemia, unspecified; E78.5 Hyperlipidemia, unspecified; I25.10 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of native coronary artery without angina pectoris; E88.09 Other disorders of plasma-protein metabolism, not elsewhere classified; E83.42 Hypomagnesemia; T45.1X5A Adverse effect of antineoplastic and immunosuppressive drugs, initial encounter; Z79.82 Long term (current) use of aspirin; Z79.02 Long term (current) use of antithrombotics/antiplatelets; G89.29 Other chronic pain; R33.9 Retention of urine, unspecified; Z95.1 Presence of aortocoronary bypass graft
CPT/HCPCS: 36415; 80048; 80053; 81001; 82306; 82310; 82330; 83735; 83970; 84100; 84153; 84443; 85025; 93005; 97110; 97162; 97166; 97530; 97535; 97802; 99251; 99283; J7050; A4216; G0463; J0610

== ENCOUNTER 2021-05-26 17:08 | Outpatient (CLI) | payer MEDICARE, SELFPAY ==
[2021-05-26 20:24] LABS: M R Staph aureus DNA By PCR POSITIVE (Negative); Probe Check PASS; Staph aureus DNA By PCR POSITIVE (Negative)
== END 2021-05-26 23:59 | disposition home or self-care (01) ==
PROVIDERS: PCP Family Medicine; Referring Provider Podiatrist; Visit Provider Podiatrist
DX: L03.032 Cellulitis of left toe (principal)
CPT/HCPCS: 87070; 87075; 87077; 87186; 87205; 87640

== ENCOUNTER 2021-06-05 08:16 | Outpatient (CLI) | payer MEDICARE, SELFPAY ==
[2021-06-05 08:37] LABS: Hematocrit 21.1 % (40-54); Hemoglobin 6.5 g/dL (13.0-16.5); Mean Corp Hgb Conc 30.8 g/dL (32-36); Mean Corpuscular Hgb 28.6 pg (27.0-32.0); Mean Platelet Vol. 9.2 fl (6.2-12.0); POSITIVE COUNT YES; POSITIVE DIFFERENTIAL YES; POSITIVE MORPHOLOGY YES; Platelet Count 213 K/mm3 (150-450); Red Blood Count 2.27 M/mm3 (4.6-6.2); White Blood Count 6.1 K/mm3 (4.4-11.0)
[2021-06-05 08:38] LABS: Differential Indicated MANUAL DIFF
[2021-06-05 09:08] LABS: Anion Gap 7 (5-15); BUN 19 mg/dL (7-18); BUN/Creat Ratio 18.3 RATIO (10-20); Calcium,Total 7.2 mg/dL (8.5-10.1); Chloride 105 mmol/L (98-107); Creatinine, Serum 1.04 mg/dL (0.70-1.30); EST Glomerular Filtration Rate 77 mL/min (>60); Est Glom Filt Rate - Afr Amer 93 mL/min (>60); Glucose 113 mg/dL (74-106); Potassium 4.4 mmol/L (3.5-5.1); Sodium Level 136 mmol/L (136-145)
[2021-06-05 09:17] LABS: BNP,B-Type NATRIURETIC PEPTIDE 1170.5 pg/mL (0-100)
[2021-06-05 09:32] LABS: Absolute Neutrophil Count 4.6 X10^3/uL (2.0-7.7); Eosinophil 2 % (0-5); Lymphocyte 9 % (19-41); Metamyelocyte 4 % (0-1); Monocyte 4 % (0-10); Neutrophil-Segmented 75 % (47-70); Platelet Estimate ADEQUATE (ADEQ); Promyelocyte 6 % (0-0); Red Cell Morphology NORM C+C NORMAL (NORM C&C); Total Cells Counted 100 (MANUAL DIFF)
[2021-06-05 09:33] LABS: Absolute Lymphocyte Count 0.55 X10^3/uL (0.83-4.51); Lymphocyte # 0.55 X10^3/ul (0.83-4.51)
[2021-06-05 14:24] LABS: Pathologist Review Reviewed
== END 2021-06-05 23:59 | disposition home or self-care (01) ==
LOC: LAB 08:17
PROVIDERS: PCP Family Medicine; Referring Provider Physician Assistant Medical; Visit Provider Physician Assistant Medical
DX: I11.0 Hypertensive heart disease with heart failure (principal); C79.9 Secondary malignant neoplasm of unspecified site; I50.32 Chronic diastolic (congestive) heart failure; E87.1 Hypo-osmolality and hyponatremia; I25.10 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of native coronary artery without angina pectoris; E78.5 Hyperlipidemia, unspecified; R60.9 Edema, unspecified; D64.9 Anemia, unspecified; Z95.1 Presence of aortocoronary bypass graft
CPT/HCPCS: 36415; 80048; 83880; 85025

== ENCOUNTER 2021-06-06 08:21 | Outpatient (CLI) | payer MEDICARE, SELFPAY ==
[2021-06-06] VITALS (7 sets, daily range): BP systolic 148–172; BP diastolic 67–84; PULSE 50–56; RESP 16; TEMP 36.3–36.7; O2SAT 99; BMI 23.2
[2021-06-06] MEDS: Furosemide 40 MG/4 ML Vial IV (11:56)
== END 2021-06-06 23:59 | disposition home or self-care (01) ==
LOC: MEDOUTP 08:21
PROVIDERS: PCP Family Medicine; Referring Provider Physician Assistant Medical; Visit Provider Physician Assistant Medical
DX: D64.9 Anemia, unspecified (principal); I50.9 Heart failure, unspecified; C80.1 Malignant (primary) neoplasm, unspecified
CPT/HCPCS: 36415; 36430; 86850; 86900; 86901; 86920; 86922; J7040; P9016; A4216; J1940

== ENCOUNTER 2021-06-08 08:57 | Outpatient (CLI) | payer MEDICARE, SELFPAY ==
[2021-06-08 10:18] LABS: Hemoglobin 8.3 g/dL (13.0-16.5)
[2021-06-08 10:38] LABS: Anion Gap 5 (5-15); BUN 20 mg/dL (7-18); BUN/Creat Ratio 19.4 RATIO (10-20); Calcium,Total 6.6 mg/dL (8.5-10.1); Chloride 105 mmol/L (98-107); Creatinine, Serum 1.03 mg/dL (0.70-1.30); EST Glomerular Filtration Rate 78 mL/min (>60); Est Glom Filt Rate - Afr Amer 94 mL/min (>60); Glucose 105 mg/dL (74-106); Potassium 4.3 mmol/L (3.5-5.1); Sodium Level 135 mmol/L (136-145)
[2021-06-08 11:36] LABS: BNP,B-Type NATRIURETIC PEPTIDE 1006.6 pg/mL (0-100)
== END 2021-06-08 23:59 | disposition home or self-care (01) ==
LOC: LAB 08:58
PROVIDERS: PCP Family Medicine; Referring Provider Physician Assistant Medical; Visit Provider Physician Assistant Medical
DX: I50.32 Chronic diastolic (congestive) heart failure (principal); C79.51 Secondary malignant neoplasm of bone; C07 Malignant neoplasm of parotid gland; M14.672 Charcot's joint, left ankle and foot; R06.00 Dyspnea, unspecified; I25.10 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of native coronary artery without angina pectoris
CPT/HCPCS: 36415; 80048; 83880; 85018

== ENCOUNTER → 2021-08-24 | Outpatient (CLI) | payer MEDICARE, SELFPAY ==
--- NOTE | 2021-08-24 07:25 | CT_ITS ---
STUDY: CT SOFT TISSUE NECK WITH CONTRAST REASON FOR EXAM: Male, 61 years old. Evaluate metastatic cancer RADIATION DOSAGE (If Supplied By Facility): CTDIvol = ( 18.13 ) mGy, DLP = ( 1599.36 ) mGycm TECHNIQUE: The patient was scanned in a multi-detector CT scanner. High resolution transaxial imaging was performed following intravenous administration of IV 100mL Isovue-300. Sagittal and coronal images were reconstructed. Individualized dose optimization techniques were used for this CT. COMPARISON: None. FINDINGS: Normal bilateral parotid glands. Normal bilateral stonecutter assistant spaces. Normal bilateral parapharyngeal spaces. Normal bilateral carotid spaces. Atherosclerotic plaque formation of the carotid bifurcations bilaterally. Small supraclavicular lymphadenopathy. Normal bilateral sublingual and submandibular glands and spaces. Normal visualized nasopharynx. Normal retropharyngeal space. Normal perivertebral space. Normal visualized bilateral faucial tonsils. The visualized tongue, tongue base and oropharynx are normal. The visualized cervical lymph nodes (levels I-) are within normal size limits, and maintain normal morphology. There is no demonstrated solid or cystic mass lesion. There is no abnormal contrast enhancement. Normal epiglottis, bilateral vallecula and hypopharynx. The pre-epiglottic and paraglottic adipose spaces are normal. Normal visualized bilateral piriform sinuses, aryepiglottic folds, vocal cords, and arytenoid-cricoid articulations. Normal subglottic trachea. Normal bilateral lobes of the thyroid gland. Normal visualized pulmonary apices. Normal visualized paranasal sinuses. There is evidence of diffuse sclerotic metastasis involving the cervical vertebrae. There is also evidence of a metastatic deposits involving both visualized portions of the clavicles. CT/Soft Tissue Neck WITH Contrast IMPRESSION: Skeletal metastasis. Small supraclavicular lymph nodes. Electronically Signed: Emir Kwan MD at 10:28 EDT ,
--- NOTE | 2021-08-24 07:25 | CT_ITS ---
STUDY: CT CHEST, ABDOMEN T PELVIS WITH CONTRAST REASON FOR EXAM: Male, 61 years old. Met squamous cell ca, lower quad abd pain RADIATION DOSAGE (If Supplied By Facility): CTDIvol = ( 18.13 ) mGy, DLP = ( 1599.26 ) mGycm TECHNIQUE: Transaxial imaging was performed following intravenous administration of IV 100mL Isovue-300. Multiplanar coronal and sagittal images were reformatted. Individualized dose optimization techniques were used for this CT. COMPARISON: Comparison is made with prior study dated 09/09/2018. FINDINGS: CHEST Small linear pleural-based density in the peripheral posterior aspect of the right upper lobe suggestive of possible scarring. There is no demonstrated pleural abnormality. There are calcifications of the coronary arteries. There are multiple small lymph nodes within the mediastinum, which are normal in size and morphology most compatible with reactive lymph hyperplasia. Mildly enlarged right hilar lymph node measuring 2.2 cm. Normal unenhanced pulmonary arteries. There is atherosclerotic calcification of the aortic arch with tortuosity and elongation of the aortic arch and descending thoracic aorta. There are multi-level degenerative changes of the thoracic spine. Diffuse bony metastasis with loss of height of mid dorsal vertebrae. Prior fusion in the lower dorsal spine with disc replacement. Altered appearance of the right scapula and proximal right humerus suggests probable metastasis. Heterogeneous appearance of the left scapula and proximal left humerus as well suggestive of a bony metastasis. ABDOMEN Hepatomegaly. Diffuse metastatic disease involving the right and left lobes of the liver. Normal gallbladder and extrahepatic biliary system. Normal spleen. Normal pancreas. Normal bilateral adrenal glands. Normal right kidney. Normal left kidney. Normal visualized stomach. Normal small intestine. There are multiple colonic diverticula consistent with diverticulosis. The appendix is visualized and appears normal. There is diffuse , extensive atherosclerotic calcification of the abdominal aorta, without a demonstrated aneurysm. Normal inferior vena cava. Normal retroperitoneum. Normal abdominal wall. There is evidence of diffuse metastatic disease involving the axial and appendicular skeletons of the lumbar spine as well as the pelvic bones. There is almost complete collapse of the L2 vertebral body. Loss of height of the L1 vertebral body. PELVIS Normal urinary bladder. here is no pelvic fluid. There is no pelvic lymphadenopathy or mass lesion. There is diffuse atherosclerotic calcification of the pelvic arteries. CT/CT Chest, Abd, Pel w/Contrast IMPRESSION: Diffuse hepatic metastasis. Diffuse metastasis involving the appendicular as well as the axial skeleton. Electronically Signed: Emir Kwan MD at 9:33 EDT ,
== END | disposition home or self-care (01) ==
LOC: CT 07:23
PROVIDERS: PCP Family Medicine; Referring Provider Nurse Practitioner Family; Visit Provider Nurse Practitioner Family
DX: R10.30 Lower abdominal pain, unspecified (principal); C07 Malignant neoplasm of parotid gland
CPT/HCPCS: 70491; 71260; 74177; Q9967

== ENCOUNTER → 2021-08-31 | Outpatient (CLI) | payer MEDICARE, SELFPAY ==
--- NOTE | 2021-08-31 08:01 | NM_ITS ---
EXAM: NM BONE SCAN CLINICAL INDICATION: assess response to teatment; met squamous cell ca TECHNIQUE: Anterior and posterior 3 hour delayed images of the whole body were obtained following the intravenous administration of Tc99m MDP. This report was created using [employer] report Media[employer] technology. COMPARISON: No priors FINDINGS: SKULL/FACIAL BONES: See below. Unremarkable. No suspicious osseous lesions to suggest metastatic disease. Anterior and posterior whole-body imaging demonstrates multiple foci of increased activity within the ribs, thoracic and lumbar spine, both humeri, right frontal region and both shoulders consistent with extensive metastatic bone disease. Areas of increased activity noted within the upper and lower extremity joints which may be related to arthritic change. SOFT TISSUES: Unremarkable. RENAL/BLADDER: Unremarkable. Prompt symmetric renal uptake. Urinary bladder partially filled with radiopharmaceutical. NM/Bone Scan Whole Body IMPRESSION: Extensive metastatic bone disease as described. Electronically Signed: Nain Soto MD at 14:09 EDT Reading Location ID and State: [facility] / [place] Tel , Service support ,
== END | disposition home or self-care (01) ==
LOC: NM 08:01
PROVIDERS: PCP Family Medicine; Referring Provider Nurse Practitioner Family; Visit Provider Nurse Practitioner Family
DX: C80.1 Malignant (primary) neoplasm, unspecified (principal); C79.51 Secondary malignant neoplasm of bone
CPT/HCPCS: 78306; A9503

== ENCOUNTER 2021-12-30 21:05 | Emergency (ER) | payer MEDICARE, SELFPAY ==
[2021-12-30 21:06] VITALS: BP 173/76; PULSE 56; RESP 18; TEMP 36.4; O2SAT 100; BMI 22.3
--- NOTE | 2021-12-30 21:25 | EDS_ITS ---
HPI HPI - Fall History of Present Illness Chief Complaint: Fall Informant: patient and family Narrative Narrative: Patient presents after a fall with head injury. History is from patient and family. Patient states he was actually having a very good day today. He has been feeling well. He does have multiple medical problems including bone cancer that is metastatic. He states he was just checking doors before he went to bed. He does wear a boot orthosis on his left foot due to Charcot joint. He has had this for 4 years. Because of this his mobility is a little decreased. He states he was stepping over a couple items on the floor to check the back door. The door his latch is not the best. He states it opened and he fell forward down about 3 wooden steps. He hit his head. He scraped a little bit of the left side of his back. He states he does not hurt. He is not having headache. He has no nausea vomiting. No numbness tingling. He was able to get himself up. There is also concerned that he has had a lesion on his back for some weeks. He has a bone scan coming up evidently this week to evaluate this. His daughter states that his oncologist has not seen it. He states that his oncologist is aware of it and has seen it. They think it is part of the cancer. He states the area does not bother him. He will sleeps on his back and he has a very prominent bony structure back there so there is some compression sore but there is concerned that there may be underlying bony lesions. This has some mild clear weepage. But no fevers chills sweats. It is not acutely worsening. They are not really concerned about this as there are doctors are aware and it is being evaluated. Her primary concern is the head injury on Plavix. He is acting normally though. [facility] Medical History Abdominal pain Anemia Atherosclerosis of coronary artery without angina pectoris 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[place] coronary artery w/angina pectoris Bacteremia Cataracts, both eyes Charcot's joint, left ankle and foot Chronic diastolic (congestive) heart failure Chronic pain Diabetes mellitus, type II Diabetic retinopathy Diastolic dysfunction with acute on chronic heart failure Essential hypertension GERD (gastroesophageal reflux disease) Hammer toe of left foot HLD (hyperlipidemia) Hyponatremia Hyponatremia Hyponatremia Infection of left foot Iron deficiency anemia 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 MSSA bacteremia Nephrotic syndrome Neuropathy Non-smoker Normocytic anemia Obesity (BMI 30.0-34.9) Osteomyelitis PAD (peripheral artery disease) Postoperative atrial fibrillation (06/12/18) 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) Secondary pulmonary arterial hypertension Sinus bradycardia Type 2 diabetes mellitus Ulcer of left foot Home Medications aspirin 81 mg tablet,delayed release 81 mg PO DAILY heart health 09/09/18 [History Last Taken 05/09/21] nitroglycerin 0.4 mg sublingual tablet 0.4 mg sublingual Q5M PRN Cardiac/Chest Pain #25 tabs 10/17/18 [Rx Last Taken 08/08/19] clopidogrel 75 mg tablet 75 mg PO DAILY ANTIPLATELET 08/08/19 [History Last Taken 05/09/21] isosorbide mononitrate 60 mg tablet,extended release 24 hr 60 mg PO BID #180 tabs 12/14/19 [Rx Last Taken 05/10/21] cholecalciferol (vitamin D3) 125 mcg (5,000 unit) capsule 125 mcg PO ROGERS SUPPLEMENT 01/04/21 [History Last Taken 05/07/21] atorvastatin 40 mg tablet 40 mg PO QHS cholesterol #90 tabs 01/18/21 [Rx Last Taken 05/09/21] methadone 5 mg tablet 5 mg PO QHS PAIN 05/10/21 [History Last Taken 05/09/21] ondansetron HCl 4 mg tablet 4 mg PO Q6H PRN Nausea 05/10/21 [History Last Taken 05/10/21] sennosides 8.6 mg-docusate sodium 50 mg tablet (Senexon-S) 1 tab 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 05/10/21 [History Last Taken 05/09/21] tamsulosin 0.4 mg capsule 0.4 mg PO QHS #30 caps 05/12/21 [Rx Last Taken Unknown] acetaminophen 500 mg oral powder packet (Tylenol Extra Strength) 500 mg PO Q6H PRN Pain 06/06/21 [History Last Taken Unknown] blood ketone glucose monitor #1 ea 06/06/21 [History Last Taken Unknown] lancets #100 ea 06/06/21 [History Last Taken Unknown] lisinopril 20 mg tablet 40 mg PO DAILY bp 06/13/21 [History Last Taken Unknown] furosemide 40 mg tablet 40 mg PO DAILY #90 tabs 06/22/21 [Rx Last Taken Unknown] allopurinol 100 mg tablet 100 mg PO DAILY 09/06/21 [History Last Taken Unknown] famotidine 40 mg tablet 40 mg PO DAILY 09/13/21 [History Last Taken Unknown] gabapentin 100 mg capsule 200 mg PO TID NEUROPATHY 09/13/21 [History Last Taken Unknown] magnesium chloride 64 mg (magnesium chloride) tablet,delayed release (Mag 64) 64 mg PO 2XW 09/13/21 [History Last Taken Unknown] oxycodone 10 mg tablet 10 mg PO Q4H PRN Pain 09/13/21 [History Last Taken Unknown] pembrolizumab 25 mg/mL intravenous solution (Keytruda) 25 mg IV .UD CANCER 05/06 [History Last Taken Unknown] temazepam 15 mg capsule 15 mg PO QHS PRN Insomnia 09/13/21 [History Last Taken Unknown] cephalexin 500 mg capsule 500 mg PO TID 10/26/21 [History Last Taken Unknown] metoprolol tartrate 25 mg tablet 25 mg PO BID #180 tabs 11/27/21 [Rx Last Taken Unknown] sodium chloride 1 gram tablet 1,000 mg PO QD-QID PRN electrolyte replenishment #30 tabs 12/20/21 [Rx Last Taken Unknown] Allergy/AdvReac Type Severity Reaction Status Date / Time Penicillins [PCN] Allergy Unknown Verified 12/30/21 21:08 morphine AdvReac Mild confusion Verified 12/30/21 21:08 Family History Mother Diabetes Parkinson disease Grandmother Cancer Surgical History Amputated toe of left foot (08/2018) H/O coronary artery bypass surgery (06/12/18) H/O eye surgery History of left heart catheterization (05/20/18) Hx of cholecystectomy S/P meniscectomy Social History household members: spouse Smoking Status: Never smoker alcohol intake: current alcohol intake frequency: a few times a week substance use type: does not use caffeine: No ROS ROS ED Constitutional Constitutional ED: Denies chills, fever(s) or subjective Eyes Eyes: Denies change in vision ENT ENT ED: Denies rhinorrhea or sore throat Cardiovascular Cardiovascular: Denies chest pain, palpitations or racing heartbeat Respiratory/Chest Respiratory/Chest: Denies cough or dyspnea Gastrointestinal Gastrointestinal: Denies abdominal pain, nausea or vomiting Genitourinary Genitourinary ED: Denies dysuria Musculoskeletal Musculoskeletal: Denies arthralgias, back pain, myalgias or neck pain Integumentary Reports other Details: Lesion on back as in history of present illness. Neurologic Neurologic: Reports other Details: Although he did hit his head, he is denying any headache or symptoms. ; Denies headache(s) Endocrine Endocrinology: Reports other Details: Patient has a history of diet-controlled diabetes. ; Denies polydipsia or polyuria Hematologic/Lymphatic Hematologic/Lymphatic: Reports easy bleeding and easy bruising Allergic/Immunologic Allergic/Immunologic ED: Denies urticaria EXAM Physical Exam Const Vital Signs: 12/30/21 21:06 12/30/21 21:38 Temperature 97.6 F L Temperature Source Temporal Pulse Rate 56 L Respiratory Rate 18 Respiratory Effort Normal Respiratory Depth Normal Respiratory Pattern Normal Blood Pressure 173/76 H Blood Pressure Mean 108 Pulse Ox 100 Oxygen Delivery Method Room Air Room Air Positive well nourished and well developed Constitutional Narrative: Patient is awake alert calm. He is a very detailed informant as to the events. General Appearance ED: well developed and NAD HEENT HEENT Narrative: There are abrasions on the right cheek and forehead. But no bony tenderness. No step-off. No lacerations. Eyes EOMs intact bilaterally Neck full ROM Neck Narrative: No tenderness or range of motion pain. General: Negative for tenderness Chest Wall Chest Narrative: There is some slight abrasions along the left side of the chest wall. But no crepitance. No subcu air. No dyspnea. His lungs are clear. He states it does not even hurt. Resp normal respiratory effort and clear to auscultation bilaterally Auscultation: Negative for rales, rhonchi or wheezes Cardio regular rate and regular rhythm GI non-tender and non-distended Back/Spine Back/Spine Narrative: Patient has a area that is open and slightly moist at's about 1-1/2 x 2-1/2 cm overlying his mid lower back. He does have kyphoscoliosis in that area. He also has prior surgery. This does appear to be in an area that would be caused by pressure ulcer from sleeping on his back. There is minimal erythema around it. There is no abscess. There is no tenderness. This does not look cellulitic or acutely infected. Patient states is not bothering him, his physician is aware of it, and they are doing work-up for this. Extremity Extremity Narrative: No sign of tenderness or pain with range of motion. Patient does have a boot on his lower left leg and ankle. This was not removed. Neuro oriented x3 and no sensory deficits noted Sensorium / Orientation: alert, oriented to person, oriented to place and oriented to time Motor Exam: strength 5/5 throughout Psych mental status grossly normal and thought process normal Skin Skin Narrative: See above. MDM MDM MDM Narrative Medical decision making narrative: Patient CT shows no acute process. There were chronic changes consistent with age. Family is comfortable going home as is patient. They are following up about the lesion on the spine. This is ongoing and already being worked up. Hi s fall was mechanical not syncopal. He has no new complaints or areas of discomfort. Radiography Diagnostic Testing: Clinical Impression(s) from Imaging Studies Brain CT 12/30/21 22:09 IMPRESSION: Chronic involutional changes of the brain. Electronically Signed: Jarred Grant DO at 22:41 EDT Reading Location ID and State: [address] [place] [address] Tel , Service support , Discharge Plan Triage Chief Complaint: Fall ED Provider: Rosalio Echevarria Dx/Rx/DC Orders Clinical Impression: Closed head injury, Fall at home Instructions: ED Head Injury (Adult) Prescriptions: No Action nitroglycerin 0.4 mg tablet, sublingual 0.4 mg sublingual Q5M PRN (Reason: Cardiac/Chest Pain) Qty: 25 6RF cholecalciferol (vitamin D3) 125 mcg (5,000 unit) capsule 125 mcg PO RGOERS cephalexin 500 mg capsule 500 mg PO TID lisinopril 20 mg tablet 40 mg PO DAILY (DME) lancets Misc See Rx Instructions .ROUTE .MEDSUPPLY Qty: 100 Rx Instructions: As directed (DME) blood ketone glucose monitor Device See Rx Instructions .ROUTE .MEDSUPPLY Qty: 1 Rx Instructions: As directed Tylenol Extra Strength 500 mg powder in packet 500 mg PO Q6H PRN (Reason: Pain) Mag 64 64 mg tablet,delayed release (DR/EC) 64 mg PO 2XW temazepam 15 mg capsule 15 mg PO QHS PRN (Reason: Insomnia) allopurinol 100 mg tablet 100 mg PO DAILY famotidine 40 mg tablet 40 mg PO DAILY Label Comments: TAKE 1 TABLET BY MOUTH EVERY DAY AT BEDTIME FOR 90 DAYS sodium chloride 1 gram tablet 1,000 mg PO QD-QID PRN (Reason: electrolyte replenishment) Qty: 30 3RF aspirin 81 MG tablet 81 mg PO DAILY clopidogrel 75 MG tablet 75 mg PO DAILY gabapentin 100 mg capsule 200 mg PO TID ondansetron HCl 4 mg Tablet 4 mg PO Q6H PRN (Reason: Nausea) sennosides-docusate sodium [Senexon-S] 8.6-50 mg tablet 1 tab PO BID methadone 5 mg tablet 5 mg PO QHS tamsulosin 0.4 mg capsule 0.4 mg PO QHS Qty: 30 0RF oxycodone 10 mg tablet 10 mg PO Q4H PRN (Reason: Pain) Keytruda 25 mg/mL solution 25 mg IV .UD isosorbide mononitrate 60 mg tablet extended release 24 hr 60 mg PO BID Qty: 180 3RF atorvastatin 40 mg tablet 40 mg PO QHS Qty: 90 3RF furosemide 40 mg tablet 40 mg PO DAILY Qty: 90 3RF metoprolol tartrate 25 mg tablet 25 mg PO BID Qty: 180 3RF Primary Care Provider: Delgado Smith Referrals: Delgado Smith DO [Primary Care Provider] - As Needed Hang Carrera MD [Med Staff - Active Staff] - Keep Radha appointment Disposition Disposition: Home, Self Care
--- NOTE | 2021-12-30 22:09 | CT_ITS ---
STUDY: CT BRAIN WITHOUT CONTRAST REASON FOR EXAM: Male, 61 years old. Trauma RADIATION DOSAGE (If Supplied By Facility): CTDIvol = ( 44.99 ) mGy, DLP = ( 846.73 ) mGycm TECHNIQUE: Transaxial CT imaging of the brain was performed without administration of intravenous contrast material. Individualized dose optimization techniques were used for this CT. COMPARISON: No relevant priors. FINDINGS: Normal soft tissue structures. Normal calvarium. There is mild cerebral atrophy with widening of the extra-axial spaces and ventricular dilatation. There are areas of decreased attenuation within the white matter tracts of the supratentorial brain, consistent with microvascular disease changes. Normal basal ganglia and thalami. Normal brainstem. Normal cerebellum. There is no intracranial hemorrhage. There are no findings of an acute ischemic infarction. There is mucoperiosteal inflammatory disease of the paranasal sinuses consistent with moderate chronic sinusitis. Near-complete opacification of the left maxillary sinus. CT/Brain/Head without Contrast IMPRESSION: Chronic involutional changes of the brain. Electronically Signed: Jarred Grant DO at 22:41 EDT ,
[2021-12-30 23:05] VITALS: BP 154/68; PULSE 52; RESP 16; O2SAT 99
[2021-12-30 23:06] VITALS: BP 154/68; PULSE 52; RESP 15; O2SAT 99
== END 2021-12-30 23:30 | disposition home or self-care (01) ==
PROVIDERS: Emergency Provider Emergency Medicine; PCP Family Medicine; Visit Provider Emergency Medicine
DX: S09.90XA Unspecified injury of head, initial encounter (principal); I25.10 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of native coronary artery without angina pectoris; Z95.1 Presence of aortocoronary bypass graft; W10.9XXA Fall (on) (from) unspecified stairs and steps, initial encounter
CPT/HCPCS: 70450; 99282

== ENCOUNTER → 2022-01-03 | Outpatient (CLI) | payer MEDICARE, SELFPAY ==
--- NOTE | 2022-01-03 09:35 | BD_ITS ---
STUDY: DUAL ENERGY X-RAY ABSORPTIOMETRY / DXA REASON FOR EXAM: Male, 61 years old. Hx osteoporosis, evaluate TECHNIQUE: Bone Mineral Density (BMD) measurements of lumbar spine and bilateral hips were obtained. COMPARISON: None. FINDINGS: Lumbar Spine (L1-L4): g/cm2 (1.651) / T-score (5.2) / Z-score (5.9) Findings are suggestive of normal bone density with a low fracture risk. Left Femur Total: g/cm2 (1.078) / T-score (0.3) / Z-score (0.8) Left Femoral Neck: g/cm2 (0.868) / T-score (-0.5) / Z-score (0.5) Right Femur Total: g/cm2 (1.103) / T-score (0.5) / Z-score (0.9) Right Femoral Neck: g/cm2 (0.877) / T-score (-0.4) / Z-score (0.6) BD/Dexa Bone Density Study IMPRESSION: The patient is considered normal as outlined below according to World [employer] Organization (WHO) criteria with a low fracture risk. Reference Information: The T-score is the number of standard deviations above or below the standard which is normal for young adults at their peak bone mineral density. The World Health Organization (WHO) interprets the T-scores as follows: Above -1 Normal bone density Between -1 and -2.5 Osteopenia Equal to / or below -2.5 Osteoporosis As a practical clinical guideline, osteopenia may be graded as follows: Mild -1 through -1.5 Moderate -1.6 through -2.0 Severe -2.1 through -2.4 The Z-score is the number of standard deviations above or below age-matched controls. A Z-score of less than -1.5 would be considered abnormal. References: 1. NIH Osteoporosis and Related Bone Diseases www osteo.org 2. International Society for Clinical Densitometry www iscd.org 3. National Osteoporosis Foundation www nof.org Electronically Signed: Emir Kwan MD at 13:30 EDT ,
== END | disposition home or self-care (01) ==
LOC: OPBD 09:19
PROVIDERS: PCP Family Medicine; Visit Provider Internal Medicine Medical Oncology
DX: M81.0 Age-related osteoporosis without current pathological fracture (principal)
CPT/HCPCS: 77080

== ENCOUNTER 2022-01-12 09:32 | Outpatient (RCR) | payer MEDICARE, SELFPAY ==
[2022-01-12 10:12] VITALS: BP 187/71; PULSE 45; RESP 20; TEMP 36.6; BMI 21.9
--- NOTE | 2022-01-12 12:40 | HP.PCM_ITS ---
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 He believes it to be from pressure because his spine protrudes there and he sleeps on his back. He has been treating the ulcer with padding it with gauze and occasionally using an ointment to it. He states that over the last week there hasn't been much drainage but it had drained off and on and bled over the last month. He has also been trying to keep pressure off of his back by putting a pillow or his fist behind his back to avoid pressure. He is currently receiving chemotherapy for metastatic squamous cell CA to his bone. He denies fever, chills, nausea, vomiting. [facility] Medical History Abdominal pain Anemia Atherosclerosis of coronary artery without angina pectoris 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[place] coronary artery w/angina pectoris Bacteremia Cataracts, both eyes Charcot's joint, left ankle and foot Chronic diastolic (congestive) heart failure Chronic pain Diabetes mellitus, type II Diabetic retinopathy Diastolic dysfunction with acute on chronic heart failure Essential hypertension GERD (gastroesophageal reflux disease) Hammer toe of left foot HLD (hyperlipidemia) Hyponatremia Hyponatremia Hyponatremia Infection of left foot Iron deficiency anemia 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 MSSA bacteremia Nephrotic syndrome Neuropathy Non-smoker Normocytic anemia Obesity (BMI 30.0-34.9) Osteomyelitis PAD (peripheral artery disease) Postoperative atrial fibrillation (06/12/18) 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) Secondary pulmonary arterial hypertension Sinus bradycardia Type 2 diabetes mellitus Ulcer of left foot Home Medications aspirin 81 mg tablet,delayed release 81 mg PO DAILY heart health 09/09/18 [History Last Taken 05/09/21] nitroglycerin 0.4 mg sublingual tablet 0.4 mg sublingual Q5M PRN Cardiac/Chest Pain #25 tabs 10/17/18 [Rx Last Taken 08/08/19] clopidogrel 75 mg tablet 75 mg PO DAILY ANTIPLATELET 08/08/19 [History Last Taken 05/09/21] isosorbide mononitrate 60 mg tablet,extended release 24 hr 60 mg PO BID #180 tabs 12/14/19 [Rx Last Taken 05/10/21] cholecalciferol (vitamin D3) 125 mcg (5,000 unit) capsule 125 mcg PO ROGERS SUPPLEMENT 01/04/21 [History Last Taken 05/07/21] atorvastatin 40 mg tablet 40 mg PO QHS cholesterol #90 tabs 01/18/21 [Rx Last Taken 05/09/21] methadone 5 mg tablet 5 mg PO QHS PAIN 05/10/21 [History Last Taken 05/09/21] ondansetron HCl 4 mg tablet 4 mg PO Q6H PRN Nausea 05/10/21 [History Last Taken 05/10/21] sennosides 8.6 mg-docusate sodium 50 mg tablet (Senexon-S) 1 tab 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 05/10/21 [History Last Taken 05/09/21] tamsulosin 0.4 mg capsule 0.4 mg PO QHS #30 caps 05/12/21 [Rx Last Taken Unknown] acetaminophen 500 mg oral powder packet (Tylenol Extra Strength) 500 mg PO Q6H PRN Pain 06/06/21 [History Last Taken Unknown] blood ketone glucose monitor #1 ea 06/06/21 [History Last Taken Unknown] lancets #100 ea 06/06/21 [History Last Taken Unknown] lisinopril 20 mg tablet 40 mg PO DAILY bp 06/13/21 [History Last Taken Unknown] furosemide 40 mg tablet 40 mg PO DAILY #90 tabs 06/22/21 [Rx Last Taken Unknown] allopurinol 100 mg tablet 100 mg PO DAILY 09/06/21 [History Last Taken Unknown] famotidine 40 mg tablet 40 mg PO DAILY 09/13/21 [History Last Taken Unknown] gabapentin 100 mg capsule 200 mg PO TID NEUROPATHY 09/13/21 [History Last Taken Unknown] magnesium chloride 64 mg (magnesium chloride) tablet,delayed release (Mag 64) 64 mg PO 2XW 09/13/21 [History Last Taken Unknown] oxycodone 10 mg tablet 10 mg PO Q4H PRN Pain 09/13/21 [History Last Taken Unknown] pembrolizumab 25 mg/mL intravenous solution (Keytruda) 25 mg IV .UD CANCER 09/13/21 [History Last Taken Unknown] temazepam 15 mg capsule 15 mg PO QHS PRN Insomnia 09/13/21 [History Last Taken Unknown] cephalexin 500 mg capsule 500 mg PO TID 10/26/21 [History Last Taken Unknown] metoprolol tartrate 25 mg tablet 25 mg PO BID #180 tabs 11/27/21 [Rx Last Taken Unknown] sodium chloride 1 gram tablet 1,000 mg PO QD-QID PRN electrolyte replenishment #30 tabs 12/20/21 [Rx Last Taken Unknown] Allergy/AdvReac Type Severity Reaction Status Date / Time Penicillins [PCN] Allergy Unknown Verified 12/30/21 21:08 morphine AdvReac Mild confusion Verified 12/30/21 21:08 Family History Mother Diabetes Parkinson disease Grandmother Cancer Surgical History Amputated toe of left foot (08/2018) H/O coronary artery bypass surgery (06/12/18) H/O eye surgery History of left heart catheterization (05/20/18) Hx of cholecystectomy S/P meniscectomy Social History household members: spouse Smoking Status: Never smoker alcohol intake: current alcohol intake frequency: a few times a week substance use type: does not use caffeine: No Vital Signs Vital Signs Vital Signs: 01/12/22 10:12 Temperature 97.8 F Temperature Source Temporal Pulse Rate 45 L Respiratory Rate 20 H Blood Pressure 187/71 H Blood Pressure Mean 109 Weight Weight: 73.482 kg Body Mass Index (BMI) 21.9 Physical Exam Const alert, oriented x3 and no apparent distress General Appearance: cooperative and comfortable HEENT normocephalic and head/scalp atraumatic Resp normal respiratory effort Effort and Inspection: able to speak in complete sentences Cardio regular rate and regular rhythm Skin Wounds: wounds noted Wound Narrative: as in clinical panel Psych mental status grossly normal, thought process normal, cooperative and affect normal Debridement Note Debridement Note Wound debrided: lumbar spine Laterality: Not Applicable Wound Grade/Stage: Stage II Type of Debridement: Selective debridement Anesthesia Used: 4% Lidocaine Solution Depth: Down to and including healthy tissue Percentage of wound debrided: 100 Instrument Used: - (gauze) Tissue Removed: Yellow slough, devitalized tissue Severity: Fat Layer Exposed Amount of bleeding with debridement: Mild Bleeding Controlled with: Compression and gauze Patient tolerated procedure: Patient tolerated procedure well Post-Debridement Measurements and Additional Note: Post-Debridement Measurements/Treatment - Nurse 1 - General Ulcer Assessment Start: 01/12/22 10:10 Freq: Status: Active Protocol: LILLIAN Activity Type Activity Date Activity User E-sign Co-sign Detail Recorded Client Recorded Date Recorded By Document 01/12/22 10:12 PL [id number] 01/12/22 10:20 PL 01/12/22 10:12 - Today's Visit Information Type of service Initial Visit Arrival Mode Cane Transfer Assistance None Patient Identification Verified (Name & Yes ) Patient Requires Transmission-Based No Precautions Safety Precautions NA Height and Weight Height 6 ft Weight 73.482 kg Weight in Pounds 162.0 lbs Body Mass Index (BMI) 21.9 BMI Classification Normal BSA - Michel 1.95 Vital Signs Temperature (97.8 F-99.1 F) 97.8 F Temperature Source Temporal Pulse Rate (60-100) 45 L Respiratory Rate (12-18) 20 H Blood Pressure (90/60-120/80) 187/71 H Blood Pressure Mean 109 History Since Last Visit- (Skip if this is Patient's initial visit) Have you changed medications since your No last visit? Any new allergies or adverse reactions No Had a fall/change in ADL's that may No increase risk of falls Signs or symptoms of abuse and/or No neglect since last visit Have you been in the hospital since your No last visit? Has dressing in place as prescribed Yes Has compression in place as prescribed N/A Has offloadiing in place as prescribed N/A Experienced any changes in pain level or No management Pain Scale: 0-10 Numeric Is Patient Pain Free? Yes - Nurse 2 - General Ulcer CM Notes Start: 01/12/22 10:10 Freq: Status: Active Protocol: Activity Type Activity Date Activity User E-sign Co-sign Detail Recorded Client Recorded Date Recorded By Document 01/12/22 10:37 MW [id number] 01/12/22 10:40 MW 01/12/22 10:37 Wound Center Nurse 2 #1 Lumbar spine -Time 10:38 -Correct Patient Yes -Correct Side, Site, Position Yes -Correct Procedure Yes -Procedure Performed Yes -Type of Procedure Debridement -Clinical Debridement Epidermis / Dermis -Tissue Removed Epidermis -Post Debridement (cm) - Length 2.3 -Post Debridement (cm) - Width 1.8 -Post Debridement (cm) - Depth 0.1 -Total Square (Post) (cm) 4.14 -Area of Debridement (cm) - Length 2.3 -Area of Debridement (cm) - Width 1.8 -Total Square (Area) (cm) 4.14 -Tunneling No -Undermining/Tunneling No -Circular Undermining No -Wound/Ulcer Outcome Not Healed -Ulcer Cleansing Rinsed/ Irrigated with Saline -Foul Odor after Cleansing No -Bioengineered Tissue No -Bleeding Controlled with Pressure -Treatment Response Procedure Tolerated Well -Offloading No -Debridement - Open, 1st 20sq cm Yes Pain Scale: 0-10 Numeric Is Patient Pain Free? Yes WC - Nurse 3 - General Ulcer D/C NN Start: 01/12/22 10:10 Freq: Status: Active Protocol: Activity Type Activity Date Activity User E-sign Co-sign Detail Recorded Client Recorded Date Recorded By Document 01/12/22 10:41 MW [id number] 01/12/22 10:42 MW Edit Result 01/12/22 10:41 MW (1) [id number] 01/12/22 10:43 MW (1) #1 Lumbar spine - Mepilex Border 1 => 2 01/12/22 10:41 Wound Care Nurse 3 #1 Lumbar spine -Ulcer Cleansing Rinsed/ Irrigated with Saline -Foul Odor after Cleansing No -Negative Pressure Wound Therapy N/A -Primary Dressing Applied C Hydrogel ($), Mepilex Border, NonAdherent Contact Layer -Mepilex Border 2 Treatment Response Procedure Tolerated Well Pain Scale: 0-10 Numeric Is Patient Pain Free? Yes Teaching: Wound Center Dressing Your Wound -Person Taught Patient -Teaching Method Discussion, Demonstration -Response to teaching Verbalize understanding WC - Visit Discharge Discharge Condition Stable Ambulatory Status Ambulatory Transportation Private Auto Accompanied by self Medication Reconcilliation completed & No provided to patient/care provider Clinical Summary of Care Provided Yes Notes: return to wound center if needed Assessment/Plan Assessment/Plan (1) Metastatic squamous cell carcinoma: CODE(S): C79.9 - Secondary malignant neoplasm of unspecified site (2) Osteoporosis: CODE(S): M81.0 - Age-related osteoporosis without current pathological fracture QUALIFIERS: Osteoporosis type: unspecified Presence of current pathological fracture: without current pathological fracture Qualified Code(s): M81.0 - Age-related osteoporosis without current pathological fracture (3) Diabetes mellitus, type II: CODE(S): E11.9 - Type 2 diabetes mellitus without complications QUALIFIERS: Diabetes mellitus director of market intelligence insulin use: without director of market intelligence use Diabetes mellitus complication status: with other specified complication Qualified Code(s): E11.69 - Type 2 diabetes mellitus with other specified complication (4) Stage II pressure ulcer of back: CODE(S): L89.102 - Pressure ulcer of unspecified part of back, stage 2 PLAN: Plan Debridement performed today in clinic as annotated above. At home wound-care instructions: Clean wound with antibacterial soap and water. Pat dry. Apply small amount of hydrogel and cover with silicone bordered foam dressing daily or every other day for padding and offloading and light drainage. Keep dressing clean and dry. Off-loading: The patient was instructed to avoid pressure and friction on the affected areas. Reposition every 2 hours at minimum. Avoid prolonged standing and/or dangling of legs. When seated, feet should be elevated at chest level. Frequent ambulation is encouraged. Diet: Patient encouraged to increase protein intake while taking caution to avoid high carbohydrate and/or sugar intake. Labs/cultures/imaging:N/A Follow-up: Will discharge him for follow up as needed if he has not healed in 2 weeks. Return sooner or report to the emergency room should symptoms worsen, or new symptoms arise. Note: [employer] speech recognition energy efficient site manager software was used to create portions of this document. Sound-alike and misspelled words, as well as other energy efficient site manager errors may be contained in the documentation.
== END 2022-01-12 23:59 | disposition home or self-care (01) ==
LOC: WC 09:32
PROVIDERS: PCP Family Medicine; Visit Provider Family Medicine
DX: L89.102 Pressure ulcer of unspecified part of back, stage 2 (principal); C79.51 Secondary malignant neoplasm of bone; E11.51 Type 2 diabetes mellitus with diabetic peripheral angiopathy without gangrene; I11.0 Hypertensive heart disease with heart failure; I50.32 Chronic diastolic (congestive) heart failure; E11.40 Type 2 diabetes mellitus with diabetic neuropathy, unspecified; C80.1 Malignant (primary) neoplasm, unspecified; M81.0 Age-related osteoporosis without current pathological fracture; Z79.82 Long term (current) use of aspirin; G89.29 Other chronic pain; Z79.02 Long term (current) use of antithrombotics/antiplatelets; I25.10 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of native coronary artery without angina pectoris; E78.5 Hyperlipidemia, unspecified; Z79.899 Other long term (current) drug therapy
CPT/HCPCS: 97597; 99213; G0463

== ENCOUNTER → 2022-02-07 | Outpatient (CLI) | payer MEDICARE, SELFPAY ==
--- NOTE | 2022-02-07 09:49 | ART_ITS ---
Reason For Study: LLE Ulceration Procedure A bilateral lower extremity continuous wave Doppler with analog waveform analysis and ankle brachial indexes. Left Segmental Pressures Left brachial= 211mmHg. Left posterior tibial artery = >254mmHg. Left dorsalis pedis artery = >254mmHg. Left digit = >254 mmHg. The left posterior tibial artery waveforms are biphasic. The left dorsalis pedis waveforms are biphasic. Right Segmental Pressures Right brachial= 213mmHg. Right posterior tibial artery = >254mmHg. Right dorsalis pedis artery = >254mmHg. Right digit = >254 mmHg. The right posterior tibial artery waveforms are biphasic. The right dorsalis pedis waveforms are biphasic. Elevated BP noted. Contacted Dr. Smith's office at [facility] to make aware of finding. Indices The right ankle brachial index by the posterior tibial artery is N/C. The right ankle brachial index by the dorsalis pedis is N/C. The right digital-brachial index is N/C. The left ankle brachial index by the posterior tibial artery is N/C. The left ankle brachial index by the dorsalis pedis is N/C. The left digital-brachial index is N/C. VL/Ankle Brachial Index Interpretation Summary Bilateral ankle and toe with noncompressibility. Biphasic flow with normals wav eforms. Ordering Physician: Nick Mandel Referring Physician: DOM SMITH MD Performed By: Asher Jung RVT
--- NOTE | 2022-02-07 09:50 | ADUL_ITS ---
Reason For Study: LLE ULCERATION Left Velocities Ext Iliac Artery, dist = 187.3 cm./sec. Common Femoral Artery, mid = 187.3 cm./sec. Supf. Femoral Artery, prox = 255.6 cm./sec. Supf. Femoral Artery, mid = 57.4 cm./sec. Supf. Femoral Artery, dist = 82.6 cm./sec. Profunda Femoral Artery = 335.0 cm./sec. Popliteal Artery, proximal, = 72.8 cm./sec. Popliteal Artery, distal = 51.9 cm./sec. Post. Tibial Artery, prox = 31.0 cm./sec. Post Tibial Artery, mid = 48.2 cm./sec. Post Tibial Artery, dist. = 47.0 cm./sec. Peroneal Artery, prox = 29.8 cm./sec. Peroneal Artery, mid = 29.8 cm./sec. Peroneal Artery,dist. = 81.4 cm./sec. Ant.Tibial Artery, prox = 74.0 cm./sec. Ant Tibial Artery, mid = 53.1 cm./sec. Ant. Tibial Artery, distal = 69.1 cm./sec. Procedure The exam was diagnostic. Exam performed in department. /US Art Duplex Unilat Lower Ext Interpretation Summary Left leg with severe stenosis profunda and femoral artery. Ordering Physician: Nick Mandel Referring Physician: MD Nick Mandel Performed By: Asher Jung RVT
== END | disposition home or self-care (01) ==
LOC: CVS 09:48
PROVIDERS: PCP Family Medicine; Referring Provider Surgery Vascular Surgery; Visit Provider Surgery Vascular Surgery
DX: Z48.812 Encounter for surgical aftercare following surgery on the circulatory system (principal); I70.245 Atherosclerosis of native arteries of left leg with ulceration of other part of foot
CPT/HCPCS: 93922; 93926

== ENCOUNTER 2022-04-05 10:00 | Outpatient (RCR) | payer MEDICARE, SELFPAY ==
--- NOTE | 2022-03-01 10:39 | HP.PTEVAL ---
Patient's Visit Information CLAY RUBIO is a 61 year old M referred to Physical Therapy by Dr. Hang Carrera MD with a diagnosis of squamous cell carcinoma, malignant neoplasm, bad posture. Date of Evaluation: 03/01/22 Physical Therapist: Khalif Donnelly, DPT, OCS, CSCS - Visit Plan Frequency: 2x /Week Duration: 4-6 Weeks Plan: 2x/week for 4 weeks for. 1. rollout and stetch quad and HS and gluts B LE. 2. NS focus, increase pelvic and LB movement and core strengthening with NS emphasis. 3. Walking up tall as an exercise. progress HEP aggressiveness of ROM, stretching and core strength to tolerance. Pt has mets to bone so slow progression as toelrated. - Subjective I have stage 4 bone Cancer. Has a hard time standing up straight as the pain in LB is bad when he stand up tall. Uses cane to get around. Wants to be able to stand up and walk without cane. Uses cane for steadiness. has charcot foot and wears L boot for 4 years and it is permanent. Walks hunched over and is progressively worsening. has infusion therapy which helps a little bit. LBP is for the last year due to degeneration and OP. Could not walk earlier in the year after they ODd him on pain meds. 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 Has lots of customers that he would want to do in security. He is not efficient at it. No regular exercises, walks. basic ADLs are getting done, shower is a chore and has a chair for steadiness and due to pain. - Pain LBP Pain Intensity (Out of 10): 2 Pain Intensity Range: 2, 7 - Objective Ambulatesinto PT I with cane R UE. Can go without it but is slightly more hunched over. I trasnfers, I steps with rail preferring to use L up and R down. Weaker on R. Posture is kyphotic in thoracic spine likely structurally and flat lordosis. Very stiff in gluts, HS, quads and hip rotation, functional but much effort to move out of neutral rotation and 90/90 test is -45 B. reflexes 0/3 patella and achilles. Sensation LE WNL to gross light touch. Boot on L ankle but has contractions of all those muscles. Does not walk without boot. Strength ankles and knees 4/5, hips abd and extension 3+, flexion 4-. Core strength 3+ abduction, 3 extension and difficult due to limited lumbar extension. L/S AROM extension not even to neutral, flexion slow and hesitant but able with mod deficits, SB max deficits. Pain mostly with extension. Pelvic mobiity is poor and hard time with posterior pelvic tilt disassociating from thoracic/rib cage movement. - Balance/Special Test Scores Functional Gait Assessment Score: 25 % Disability: 16.6700 Lower Extremity Functional Score: 24 - Goals Goal 1:: Patient feel back pain 50% better to 3/10 at worst Goal Time Frame: 4-6 Weeks Goal 2:: Pt able to stand up tall in NS position and walk 200 feet without pain in LB Goal Time Frame: 4-6 Weeks Goal 3:: I ex to manage condition Goal Time Frame: 4-6 Weeks Goal 4:: LEFS 44 Goal Time Frame: 4-6 Weeks - Rehabilitation Potential Physical Therapy Diagnosis: Pt is hunched over, weak and tight which may be causing pain limiting his function Rehabilitation Potential: Questionable - Anticipated Interventions Patient/Client Instruction: Educate patient on: Condition, Plan of Care For the Purpose of:: To decrease pain, To increase ROM, To improve muscle performance and motor function, To increase tolerance to activity/condition/position, To improve gait and locomotor functions Therapeutic Exercise to Include: Strength training, Postural training, Flexibilty training, Gait and locomotor training, Passive ROM, Active ROM, Dynamic Lumbar Stabilization For the Purpose of:: To decrease pain, To increase ROM, To improve nutrient delivery to tissue, To improve muscle performance and motor function, To increase tolerance to activity/condition/position, To improve ability of physical actions for home/community/work/leisure, To improve gait and locomotor functions Manual Therapy Techniques to Include: Passive ROM, Soft tissue mobilization For the Purpose of:: To decrease pain, To increase ROM Thank you for the opportunity to evaluate your patient. For Medicare and Medicare HMO plans, please review the plan of care and approve it. It will need to be FAXED BACK to us at [phone] for Medicare purposes. For Medicare only, by signing this I certify the plan of care. Please let me know if there are questions or concerns regarding this plan of care. Physician Signature: Date:
--- NOTE | 2022-04-05 10:24 | HP.PTDCSUM ---
It has been my pleasure to treat CLAY RUBIO referred by Dr. Hang Carrera MD, with the diagnosis of squamous cell carcinoma, malignant neoplasm, bad posture for a total of 8 visit(s). Discharge Date: Please see the following information for a summary of their discharge status. Subjective: Definitely better. Standing up straighter, still hard to get down to floor. Feels more mobile. Still being treated for Cancer. Pain improving but will always be there. Forgets about pain when on task. HEP is getting done at home. Got massage gun at home. Has boot on L foot and uses cane for longer walks. LBP Pain Intensity (Out of 10): 2 % Improvement: 60 Objective/Function: Stand up tall with about 4 degrees of forward bend. Hurts to stand up taller. Walking I with can and boot easily and safely Goal 1:: Patient feel back pain 50% better to 3/10 at worst Goal Progress: Goal Met Goal 2:: Pt able to stand up tall in NS position and walk 200 feet without pain in LB Goal Progress: Progressing Goal 3:: I ex to manage condition Goal Progress: Goal Met Goal 4:: LEFS 44 Goal Progress: Goal Met Plan: d/c to HEP, pt choice. If there are questions or concerns regarding this patient's physical therapy, please feel free to call me at [phone]. Thank you for the referral of this patient. Sincerely, Khalif Donnelly, DPT, OCS, CSCS Balance/Gait/Functional tests - Balance/Special Test Scores Functional Gait Assessment Score: 25 % Disability: 16.6700 Lower Extremity Functional Score: 47
== END 2022-04-05 13:24 | disposition home or self-care (01) ==
LOC: PT 10:00
PROVIDERS: PCP Family Medicine; Referring Provider Internal Medicine Medical Oncology; Visit Provider Internal Medicine Medical Oncology
DX: R29.3 Abnormal posture (principal); M14.672 Charcot's joint, left ankle and foot; C79.51 Secondary malignant neoplasm of bone; C07 Malignant neoplasm of parotid gland
CPT/HCPCS: 97110; 97162; 97164

== ENCOUNTER 2022-04-16 12:24 | Observation (INO) | payer MEDICARE, SELFPAY ==
[2022-04-16] VITALS (12 sets, daily range): BP systolic 141–241; BP diastolic 66–85; PULSE 46–79; RESP 12–16; TEMP 36.2–36.8; O2SAT 96–99; BMI 27.5; BMI 25.5
--- NOTE | 2022-04-16 13:49 | EKG12_ITS ---
Test Reason : POSS SYNCOPE Blood Pressure : / mmHG Vent. Rate : 055 BPM Atrial Rate : 055 BPM P-R Int : 188 ms QRS Dur : 086 ms QT Int : 490 ms P-R-T Axes : 056 040 065 degrees QTc Int : 468 ms Sinus bradycardia Poor R wave progression Confirmed by THALIA GILLILAND, GUSTAVO ([id number]), fan mail editor GALINDO BECKFORD ([id number]) on 04/18/2022 9:21:12 AM Referred By: SABRINA/LARRY Confirmed By:GUSTAVO VÁSQUEZ MD
--- NOTE | 2022-04-16 13:49 | CT_ITS ---
EXAM: CT HEAD WITHOUT INTRAVENOUS CONTRAST CLINICAL INDICATION: headache WITH HISTORY OF PAROTID CANCER/BONE METS TECHNIQUE: Multiple axial images were obtained of the head without intravenous contrast. This CT exam was performed using one or more of the following dose reduction techniques: automated exposure control, adjustment of the mA and/or kV according to patient size, and/or use of iterative reconstruction technique. This report was created using [employer] report generation technology. COMPARISON: CT Head dated 12/30/2021 FINDINGS: BRAIN AND EXTRA-AXIAL SPACES: Areas of diminished white matter density noted within both cerebral hemispheres suggestive of chronic microvascular change. Prominence of the cortical sulci and ventricles related to volume loss change. No intra- or extra-axial hemorrhage. No evidence of acute infarct. No intracranial mass or mass effect. There is preservation of the patton/white matter interface. Posterior fossa structures are unremarkable. Basal cisterns are patent. BONES/JOINTS: Normal. No discrete lytic or blastic abnormalities. SINUSES: Mucosal thickening of the paranasal sinuses noted. Interval improvement in the left maxillary sinus opacification. MASTOID AIR CELLS: Normal. Clear. ORBITS: Visualized globes, extraocular muscles, optic nerves and retrobulbar fat appear unremarkable. CT/Brain/Head without Contrast IMPRESSION: 1. No acute intracranial abnormality. 2. Senescent changes. Electronically Signed: Nain Soto MD at 15:16 EST ,
--- NOTE | 2022-04-16 13:49 | CT_ITS ---
EXAM: CT ANGIOGRAPHY CHEST WITHOUT AND WITH INTRAVENOUS CONTRAST CLINICAL INDICATION: chest pain AND HISTORY OF PAROTID CANCER WITH BONE METS TECHNIQUE: Helically acquired angiography images were obtained of the chest without and with intravenous contrast. This CT exam was performed using one or more of the following dose reduction techniques: automated exposure control, adjustment of the mA and/or kV according to patient size, and/or use of iterative reconstruction technique. This report was created using [employer] report generation technology. MIP reconstructed images were created and reviewed. CONTRAST: IV 100mL [id number] COMPARISON: CT chest 08/24/2021. FINDINGS: PULMONARY ARTERIES: Normal. Normal in caliber. No evidence of pulmonary embolism. AORTA: Normal. Normal in caliber. No evidence of dissection. GREAT VESSELS OF AORTIC ARCH: Normal. Normal in caliber. No evidence of dissection. LUNGS AND PLEURAL SPACES: Normal. No mass. No consolidation or edema. No pleural effusion or thickening. No pneumothorax. HEART: Prominent coronary artery calcification. Heart is mildly prominent in size. No pericardial effusion. No signs of right heart strain, ratio of right ventricle to left ventricle measures less than 1. MEDIASTINUM: Normal. No mediastinal or hilar adenopathy. Esophagus is unremarkable. No hiatal hernia. THYROID: Normal. No thyroid lesions. BONES/JOINTS: Diffuse osteoblastic changes of the osseous structures again noted fracture of the superior portion of the sternal body again seen as well as the coracoid and acromial processes of the left scapula. Nonhealed fracture of the base of the acromion process of the right scapula. CT/CTA Chest W/WO Contrast IMPRESSION: 1. No evidence of acute pulmonary embolism. 2. No acute pulmonary abnormality. 3. Mild cardiomegaly. 4. Diffuse metastatic bone disease. 5. Chronic bilateral scapular and sternal fractures Electronically Signed: Nain Soto MD at 15:35 EST ,
--- NOTE | 2022-04-16 13:49 | RAD_ITS ---
EXAM: XR CHEST, 1 VIEW CLINICAL INDICATION: cpr TECHNIQUE: Frontal view of the chest. This report was created using [employer] report generation technology. COMPARISON: XR Chest dated 09/29/2019 FINDINGS: LUNGS AND PLEURAL SPACES: Normal. No consolidation or edema. No pneumothorax. No effusion. HEART: Top normal heart size with left ventricular prominence. MEDIASTINUM: No mediastinal or hilar mass. BONES/JOINTS: Cephalic drift of both humeral heads consistent with chronic rotator cuff deformity. Sternotomy wires are in place. Surgical fixation of the lower thoracic spine. SOFT TISSUES: Normal. RAD/Chest 1 View (Portable) IMPRESSION: No acute cardiopulmonary abnormality. No interval change. Electronically Signed: Nain Soto MD at 15:24 EST ,
--- NOTE | 2022-04-16 13:51 | CT_ITS ---
EXAM: CT CERVICAL SPINE WITHOUT INTRAVENOUS CONTRAST CLINICAL INDICATION: neck pain WITH HISTORY OF PAROTID CANCER AND BONE METS TECHNIQUE: Helically acquired images were obtained of the cervical spine without intravenous contrast. 2D reformatted images were reviewed. This CT exam was performed using one or more of the following dose reduction techniques: automated exposure control, adjustment of the mA and/or kV according to patient size, and/or use of iterative reconstruction technique. This report was created using [email or web address] report generation technology. COMPARISON: None. FINDINGS: VERTEBRAE: Mild retrolisthesis of the C3 on C4. Chronic compression deformity of the T2 vertebral body. DISCS/SPINAL CANAL/NEURAL FORAMINA: Prominent multilevel disc degeneration and facet arthropathy. Disc osteophyte complex and prominent posterior ligamentous redundancy causes mild to moderate spinal stenosis at the C3-4 level. SOFT TISSUES: Normal. No prevertebral soft tissue swelling. LYMPH NODES: Normal. No cervical adenopathy. LUNG APICES: Unremarkable as visualized. Clear. CT/Spine Cervical without Contras IMPRESSION: 1. No acute abnormality of the cervical spine. 2. Prominent diffuse spondylosis. 3. Chronic fracture deformity of the T2 vertebral body. Electronically Signed: Nain Soto MD at 15:20 EST ,
--- NOTE | 2022-04-16 13:53 | EX.ED.DYSGE1 ---
HPI History of Present Illness Chief Complaint: Syncope Narrative Narrative: 60-year-old male presents for evaluation. His states that he was sitting at his desk and she had told him that they were going to leave, and he said okay. About 5 minutes later she came back and he was laying on his desk with his head down. He was not responding to her. She states she started to shake him and he still did not wake up. She states at that point he was initially breathing and then she noted that his chest stopped moving. She called 911 and they instructed her to put him on the floor. She states she was able to get him down to the floor and she was instructed to do CPR. She reports that about 30 seconds later the patient took a huge gasp of air and was initially combative. He is now at his baseline. He is complaining of neck pain. He did not have this prior to this event. He has a mild headache. Patient does state that he takes pain medication at home. He is on gabapentin 100 mg 3 times daily, oxycodone 10 mg every 4 hours as needed pain, methadone 5 mg nightly. Prior to this he was feeling otherwise well. He is denying chest pain at this time. He cannot recall the events that his is describing. She states he was not eating or drinking anything and she does not think he choked on anything. They do state that he has a history of metastatic bone cancer. [facility] Medical History Abdominal pain Alcohol abuse Anemia Atherosclerosis of coronary artery without angina pectoris 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[place] coronary artery w/angina pectoris Bacteremia Cataracts, both eyes Charcot's joint, left ankle and foot Chronic diastolic (congestive) heart failure Chronic pain Diabetes mellitus, type II Diabetic retinopathy Diastolic dysfunction with acute on chronic heart failure Essential hypertension GERD (gastroesophageal reflux disease) Hammer toe of left foot HLD (hyperlipidemia) Hyponatremia Hyponatremia Hyponatremia Infection of left foot Iron deficiency anemia 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 MSSA bacteremia Nephrotic syndrome Neuropathy Non-smoker Normocytic anemia Obesity (BMI 30.0-34.9) Osteomyelitis PAD (peripheral artery disease) Postoperative atrial fibrillation (06/12/18) 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) Secondary pulmonary arterial hypertension Sinus bradycardia Type 2 diabetes mellitus Ulcer of left foot Home Medications aspirin 81 mg tablet,delayed release 81 mg PO DAILY heart health 09/09/18 [History Last Taken 04/15/22] nitroglycerin 0.4 mg sublingual tablet 0.4 mg sublingual Q5M PRN Cardiac/Chest Pain #25 tabs 10/17/18 [Rx Last Taken 08/08/19] clopidogrel 75 mg tablet 75 mg PO DAILY ANTIPLATELET 08/08/19 [History Last Taken 04/15/22] cholecalciferol (vitamin D3) 125 mcg (5,000 unit) capsule 125 mcg PO ROGERS SUPPLEMENT 01/04/21 [History Last Taken 04/15/22] atorvastatin 40 mg tablet 40 mg PO QHS cholesterol #90 tabs 01/18/21 [Rx Last Taken 1 Week Ago ~04/09/22] methadone 5 mg tablet 5 mg PO QHS PAIN 05/10/21 [History Last Taken 04/15/22] ondansetron HCl 4 mg tablet 4 mg PO Q6H PRN Nausea 05/10/21 [History Last Taken 05/10/21] sennosides 8.6 mg-docusate sodium 50 mg tablet (Senexon-S) 1 tab 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 05/10/21 [History Last Taken 04/16/22] acetaminophen 500 mg oral powder packet (Tylenol Extra Strength) 500 mg PO Q6H PRN Pain 06/06/21 [History Last Taken 04/15/22] blood ketone glucose monitor #1 ea 06/06/21 [History Last Taken Unknown] lancets #100 ea 06/06/21 [History Last Taken Unknown] lisinopril 20 mg tablet 40 mg PO BID bp 06/13/21 [History Last Taken 04/16/22] allopurinol 100 mg tablet 100 mg PO DAILY gout 09/06/21 [History Last Taken 04/15/22] famotidine 40 mg tablet 40 mg PO DAILY GERD 09/13/21 [History Last Taken 04/15/22] gabapentin 100 mg capsule 200 mg PO TID NEUROPATHY 09/13/21 [History Last Taken 04/16/22] magnesium chloride 64 mg (magnesium chloride) tablet,delayed release (Mag 64) 64 mg PO 2XW supplement 09/13/21 [History Last Taken 3 Days Ago ~04/13/22] oxycodone 10 mg tablet 10 mg PO Q4H PRN Pain 09/13/21 [History Last Taken 04/16/22] pembrolizumab 25 mg/mL intravenous solution (Keytruda) 25 mg IV .UD CANCER 09/13/21 [History Last Taken 04/11/22] temazepam 15 mg capsule 15 mg PO QHS PRN Insomnia 09/13/21 [History Last Taken 04/15/22] cephalexin 500 mg capsule 500 mg PO TID infection 10/26/21 [History Last Taken 04/16/22] sodium chloride 1 gram tablet 1,000 mg PO QD-QID PRN electrolyte replenishment #30 tabs 01/31/22 [Rx Last Taken 04/15/22] amlodipine 5 mg tablet 5 mg PO DAILY bp 03/14/22 [History Last Taken 2 Weeks Ago ~04/02/22] ferrous fumarate 324 mg (106 mg iron) tablet 324 mg PO BID supplement 04/16/22 [History Last Taken 04/16/22] furosemide 40 mg tablet 40 mg PO QHS water 04/16/22 [History Last Taken 04/15/22] isosorbide mononitrate 60 mg tablet,extended release 24 hr 60 mg PO BID cp 04/16/22 [History Last Taken 04/16/22] metoprolol tartrate 25 mg tablet 25 mg PO BID bp 04/16/22 [History Last Taken 04/16/22] tamsulosin 0.4 mg capsule 0.4 mg PO QHS prostate 04/16/22 [History Last Taken 04/16/22] Allergy/AdvReac Type Severity Reaction Status Date / Time Penicillins [PCN] Allergy Unknown Verified 04/16/22 12:30 morphine AdvReac Mild confusion Verified 04/16/22 12:30 Family History Mother Diabetes Parkinson disease Grandmother Cancer Surgical History Amputated toe of left foot (08/2018) H/O coronary artery bypass surgery (06/12/18) H/O eye surgery History of left heart catheterization (05/20/18) Hx of cholecystectomy S/P meniscectomy Social History household members: spouse Smoking Status: Never smoker alcohol intake: current alcohol intake frequency: a few times a week substance use type: does not use caffeine: No ROS ROS ED Constitutional Constitutional ED: Denies chills or fever(s) Eyes Eyes: Denies change in vision or diplopia ENT ENT ED: Denies rhinorrhea or sore throat Cardiovascular Cardiovascular: Denies chest pain or palpitations Respiratory/Chest Respiratory/Chest: Denies cough or dyspnea Gastrointestinal Gastrointestinal: Denies nausea or vomiting Genitourinary Genitourinary ED: Denies dysuria or hematuria Musculoskeletal Musculoskeletal: Reports neck pain Integumentary Denies abscess Neurologic Neurologic: Reports headache(s) Psychiatric Psychiatric: Denies anxiety or depression EXAM Physical Exam Const Vital Signs: 04/16/22 12:25 04/16/22 12:30 04/16/22 12:24 Temperature 97.2 F L Temperature Source Temporal Pulse Rate 52 L 55 L Respiratory Rate 12 16 Respiratory Effort Normal Non-Labored Respiratory Pattern Normal Blood Pressure 230/83 H 226/85 H Blood Pressure Mean 132 132 Pulse Ox 97 99 Oxygen Delivery Method Room Air Room Air 04/16/22 14:24 Temperature Temperature Source Pulse Rate 46 L Respiratory Rate 15 Respiratory Effort Respiratory Pattern Blood Pressure 141/66 H Blood Pressure Mean 91 Pulse Ox 96 Oxygen Delivery Method Room Air Positive well nourished General Appearance ED: NAD; Negative for pallor HEENT Reports moist mucous membranes Negative for trauma Eyes PERRL and EOMs intact bilaterally Neck no lymphadenopathy and supple Resp normal respiratory effort and clear to auscultation bilaterally Cardio regular rhythm Rate: bradycardia GI normal to inspection, nondistended, normoactive bowel sounds Neuro oriented x3 and CN's II-XII intact bilaterally Sensorium / Orientation: alert Motor Exam: strength 5/5 throughout Psych mental status grossly normal Skin no rashes or lesions noted and no wounds General Skin Exam: Negative for jaundice or pallor MDM MDM MDM Narrative Medical decision making narrative: Patient presenting for evaluation. states that he was not arousable and stopped breathing. He did not check his pulse. She admits to about 30 seconds of CPR. Her then took a deep breath and started breathing on his own. Initially he was combative. He is alert and awake now and at his baseline. He denies any chest pain at this point. He states that he does have neck pain. states that he may have hit his head or injured himself when she put him on the ground. Patient medicated with morphine and Zofran. EKG was obtained which shows sinus bradycardia with a ventricular 55 bpm without sign of ischemic change. Chest x-ray my interpretation shows no acute cardiopulmonary process. Radiologist represents agrees. Patient CBC shows normal white blood count of 7. Hemoglobin stable at 10.8 near his baseline. Platelets are normal. Creatinine is elevated today at 1.48. Patient is also noted to be hypertensive. He hospitalist request orthostatic vital signs prior to giving any IV fluids. These are going to be obtained and that he will get IV fluids. I recommended admission and the hospitalist agree. Of note the patient's stated that there was an empty bottle of Seroquel on the desk. The patient himself states he did not take any Seroquel and that the bottle has been empty. The does not know if its been empty. He cannot recall the events surrounding when he fell but is pretty adamant that he did not take any Seroquel which would cause him to be confused. CT of the brain shows no acute intracranial process. CT of the cervical spine shows chronic fractures likely related to his metastatic cancer. CTA of the chest shows chronic fractures of the sternum and the scapula bilaterally. No evidence of PE or dissection. Impression: 1. Syncope 2. Neck pain 3. RAFA 4. Respiratory arrest 5. Altered mental status resolved Lab Data Attestation: I reviewed the patient's lab results. Labs: Laboratory Results - last 24 hr 04/16/22 04/16/22 04/16/22 14:18 14:18 14:18 WBC 7.0 RBC 3.35 L Hgb 10.8 L Hct 32.3 L MCV 96.4 H MCH 32.2 H MCHC 33.4 RDW Std Deviation 41.8 RDW Coeff of Dipti 11.9 Plt Count 198 MPV 9.6 Immature Gran % (Auto) 1.000 H Neut % (Auto) 80.0 H Lymph % (Auto) 7.0 L [place] % (Auto) 8.1 Eos % (Auto) 3.8 Baso % (Auto) 0.1 Absolute Neuts (auto) 5.6 Absolute Lymphs (auto) 0.49 L Nucleated RBC % 0 Differential Comment SCANNED Anisocytosis HAIR SAMPLE MATCHER Microcytosis HAIR SAMPLE MATCHER Macrocytosis HAIR SAMPLE MATCHER Sodium 132 L Potassium 4.0 Chloride 97 L Carbon Dioxide 28.0 Anion Gap 7 BUN 34 H Creatinine 1.48 H Estim Creat Clear Calc 49.43 Est GFR (MDRD) Af Amer 62 Est GFR (MDRD) Non-Af 51 L BUN/Creatinine Ratio 23.0 H Glucose 100 Calcium 9.2 Total Bilirubin 0.50 AST 26 ALT 23 Alkaline Phosphatase 137 H Troponin I High Sens 17 B-Natriuretic Peptide 297.5 H Total Protein 7.2 Albumin 3.3 Globulin 3.9 Albumin/Globulin Ratio 0.8 L Radiography Diagnostic Testing: Clinical Impression(s) from Imaging Studies Brain CT 04/16/22 13:49 IMPRESSION: 1. No acute intracranial abnormality. 2. Senescent changes. Electronically Signed: Nain Soto MD at 15:16 EST , Chest CTA 04/16/22 13:49 IMPRESSION: 1. No evidence of acute pulmonary embolism. 2. No acute pulmonary abnormality. 3. Mild cardiomegaly. 4. Diffuse metastatic bone disease. 5. Chronic bilateral scapular and sternal fractures Electronically Signed: Nain Soto MD at 15:35 EST , Chest X-Ray 04/16/22 13:49 IMPRESSION: No acute cardiopulmonary abnormality. No interval change. Electronically Signed: Nain Soto MD at 15:24 EST , Cervical Spine CT 04/16/22 13:51 IMPRESSION: 1. No acute abnormality of the cervical spine. 2. Prominent diffuse spondylosis. 3. Chronic fracture deformity of the T2 vertebral body. Electronically Signed: Nain Soto MD at 15:20 EST , Discharge Plan Triage Chief Complaint: Syncope ED Provider: Hemant Perez Dx/Rx/DC Orders Primary Care Provider: Delgado Smith
[2022-04-16 14:26] LABS: Absolute Lymphocyte Count 0.49 X10^3/uL (0.83-4.51); Absolute Neutrophil Count 5.6 X10^3/uL (2.0-7.7); Basophil# 0.01 X10^3/uL; Basophil% 0.1 % (0-1); Eosinophil# 0.27 X10^3/uL; Eosinophils% 3.8 % (0-5); Hematocrit 32.3 % (40-54); Hemoglobin 10.8 g/dL (13.0-16.5); Lymphocyte # 0.49 X10^3/ul (0.83-4.51); Mean Corp Hgb Conc 33.4 g/dL (32-36); Mean Corpuscular Hgb 32.2 pg (27.0-32.0); Mean Corpuscular Volume 96.4 fL (80-94); Mean Platelet Vol. 9.6 fl (6.2-12.0); Monocyte# 0.57 X10^3/uL; Monocyte% 8.1 % (0-10); NRBC Flagged by Analyzer 0 % (0-5); Neutrophil # 5.63 X10^3/uL (2.7-7.7); POSITIVE DIFFERENTIAL YES; Platelet Count 198 K/mm3 (150-450); RBC Distribution Width CV 11.9 % (11.6-14.6); RBC Distribution Width SD 41.8 fl (35.1-43.9); Red Blood Count 3.35 M/mm3 (4.6-6.2)
[2022-04-16 14:27] LABS: Differential Indicated SCAN CRITERIA MET
[2022-04-16 14:41] LABS: BNP,B-Type NATRIURETIC PEPTIDE 297.5 pg/mL (0-100)
[2022-04-16 14:45] LABS: ALB/GLOB Ratio 0.8 RATIO (0.9-2.4); AST(SGOT) 26 U/L (15-37); Alanine Aminotransfer ALT/SGPT 23 U/L (16-61); Albumin, Serum 3.3 g/dL (3.2-5.0); Alkaline Phosphatase 137 U/L (45-117); Anion Gap 7 (5-15); BUN 34 mg/dL (7-18); Calcium,Total 9.2 mg/dL (8.5-10.1); Chloride 97 mmol/L (98-107); Creatinine, Serum 1.48 mg/dL (0.70-1.30); EST Glomerular Filtration Rate 51 mL/min (>60); Est Glom Filt Rate - Afr Amer 62 mL/min (>60); Estimated Creatinine Clearance 49.43 ml/min; Globulin 3.9 g/dL (2.2-4.2); Glucose 100 mg/dL (74-106); Protein, Total 7.2 g/dL (6.4-8.2); Sodium Level 132 mmol/L (136-145); Troponin-I HS (w/2H Reflex) 17 pg/mL (3.0-78.0)
[2022-04-16 15:13] LABS: Differential Comment SCANNED
--- NOTE | 2022-04-16 15:56 | NURSING ---
DR BUENROSTRO FOR DR ORTEGA
--- NOTE | 2022-04-16 16:05 | NURSING ---
PCU OBS CHITRA RAFA, SYNCOPE
--- NOTE | 2022-04-16 16:08 | PCM.HP.STD ---
HPI - General General Date of Admission: 04/16/22 Date of Service: 04/16/22 Chief Complaint: Syncope HPI Narrative CLAY RUBIO, is a 61 M who presented to the emergency department I was coming hospital on 04/16/2022 after experiencing a syncopal episode. His reported most of his history as he does not remember a lot of what happened. His reported that he was sitting at his desk and she had told him that they were going to leave and he said okay. About 5 minutes later she came back and he was lying on his desk with his head down and not responding. She indicated she started to shake him but he did not wake up. She reported that he was noted to be breathing but at some point during this his chap stop moving. She called 911 and they instructed her to put him on the floor and started CPR. She reported that about 30 seconds later he took a huge gasp of air and came to. She states he was initially combative and he was brought to the emergency department. 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 He was complaining of neck pain upon presentation that he did not have prior to this event. He also had a mild headache which at the time of my evaluation was resolving. He denied any other symptoms. There is no pulse check prior to the CPR being initiated. At the time of my evaluation he has no complaints other than pain. On presentation the emergency department his temperature was 97.2, heart rate 52 (baseline is typically in the 40s to 50s when I review previous admissions), blood pressure was 177/52, respiratory rate 16, oxygen saturation was 96% on room air. His CBC shows a chronic stable anemia with a hemoglobin of 10.8 his chemistry panel shows hyponatremia and hypochloremia his serum creatinine is elevated from baseline at 1.48 (baseline 1-1.25), his liver enzymes are normal her troponin was 17. His BNP was elevated but it is significantly lower than his previous. Toxicology screen was normal. Extensive imaging was performed including brain CT, CTA chest, cervical spine CT and chest x-ray with the above events but no acute abnormalities were noted. His EKG was reviewed and showed sinus bradycardia without any ectopy, intervals are all normal, no ST-T wave changes consistent with acute ischemia. [facility] Medical History Abdominal pain Alcohol abuse Anemia Atherosclerosis of coronary artery without angina pectoris 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[place] coronary artery w/angina pectoris Bacteremia Cataracts, both eyes Charcot's joint, left ankle and foot Chronic diastolic (congestive) heart failure Chronic pain Diabetes mellitus, type II Diabetic retinopathy Diastolic dysfunction with acute on chronic heart failure Essential hypertension GERD (gastroesophageal reflux disease) Hammer toe of left foot HLD (hyperlipidemia) Hyponatremia Hyponatremia Hyponatremia Hyponatremia Infection of left foot Iron deficiency anemia 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 MSSA bacteremia Nephrotic syndrome Neuropathy Non-smoker Normocytic anemia Obesity (BMI 30.0-34.9) Osteomyelitis PAD (peripheral artery disease) Postoperative atrial fibrillation (06/12/18) 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) Secondary pulmonary arterial hypertension Sinus bradycardia Type 2 diabetes mellitus Ulcer of left foot Home Medications aspirin 81 mg tablet,delayed release 81 mg PO DAILY heart health 09/09/18 [History Last Taken 04/15/22] nitroglycerin 0.4 mg sublingual tablet 0.4 mg sublingual Q5M PRN Cardiac/Chest Pain #25 tabs 10/17/18 [Rx Last Taken 08/08/19] clopidogrel 75 mg tablet 75 mg PO DAILY ANTIPLATELET 08/08/19 [History Last Taken 04/15/22] cholecalciferol (vitamin D3) 125 mcg (5,000 unit) capsule 125 mcg PO ROGERS SUPPLEMENT 01/04/21 [History Last Taken 04/15/22] atorvastatin 40 mg tablet 40 mg PO QHS cholesterol #90 tabs 01/18/21 [Rx Last Taken 1 Week Ago ~04/09/22] methadone 5 mg tablet 5 mg PO QHS PAIN 05/10/21 [History Last Taken 04/15/22] ondansetron HCl 4 mg tablet 4 mg PO Q6H PRN Nausea 05/10/21 [History Last Taken 05/10/21] sennosides 8.6 mg-docusate sodium 50 mg tablet (Senexon-S) 1 tab 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 05/10/21 [History Last Taken 04/16/22] acetaminophen 500 mg oral powder packet (Tylenol Extra Strength) 500 mg PO Q6H PRN Pain 06/06/21 [History Last Taken 04/15/22] blood ketone glucose monitor #1 ea 06/06/21 [History Last Taken Unknown] lancets #100 ea 06/06/21 [History Last Taken Unknown] lisinopril 20 mg tablet 40 mg PO BID bp 06/13/21 [History Last Taken 04/16/22] allopurinol 100 mg tablet 100 mg PO DAILY gout 09/06/21 [History Last Taken 04/15/22] famotidine 40 mg tablet 40 mg PO DAILY GERD 09/13/21 [History Last Taken 04/15/22] gabapentin 100 mg capsule 200 mg PO TID NEUROPATHY 09/13/21 [History Last Taken 04/16/22] magnesium chloride 64 mg (magnesium chloride) tablet,delayed release (Mag 64) 64 mg PO 2XW supplement 09/13/21 [History Last Taken 3 Days Ago ~04/13/22] oxycodone 10 mg tablet 10 mg PO Q4H PRN Pain 09/13/21 [History Last Taken 04/16/22] pembrolizumab 25 mg/mL intravenous solution (Keytruda) 25 mg IV .UD CANCER 09/13/21 [History Last Taken 04/11/22] temazepam 15 mg capsule 15 mg PO QHS PRN Insomnia 09/13/21 [History Last Taken 04/15/22] cephalexin 500 mg capsule 500 mg PO TID infection 10/26/21 [History Last Taken 04/16/22] sodium chloride 1 gram tablet 1,000 mg PO QD-QID PRN electrolyte replenishment #30 tabs 01/31/22 [Rx Last Taken 04/15/22] amlodipine 5 mg tablet 5 mg PO DAILY bp 03/14/22 [History Last Taken 2 Weeks Ago ~04/02/22] ferrous fumarate 324 mg (106 mg iron) tablet 324 mg PO BID supplement 04/16/22 [History Last Taken 04/16/22] furosemide 40 mg tablet 40 mg PO QHS water 04/16/22 [History Last Taken 04/15/22] isosorbide mononitrate 60 mg tablet,extended release 24 hr 60 mg PO BID cp 04/16/22 [History Last Taken 04/16/22] metoprolol tartrate 25 mg tablet 25 mg PO BID bp 04/16/22 [History Last Taken 04/16/22] tamsulosin 0.4 mg capsule 0.4 mg PO QHS prostate 04/16/22 [History Last Taken 04/16/22] Allergy/AdvReac Type Severity Reaction Status Date / Time Penicillins [PCN] Allergy Unknown Verified 04/16/22 12:30 morphine AdvReac Mild confusion Verified 04/16/22 12:30 Family History Mother Diabetes Parkinson disease Grandmother Cancer Surgical History Amputated toe of left foot (08/2018) H/O coronary artery bypass surgery (06/12/18) H/O eye surgery History of left heart catheterization (05/20/18) Hx of cholecystectomy S/P meniscectomy Social History household members: spouse Smoking Status: Never smoker alcohol intake: current alcohol intake frequency: a few times a week substance use type: does not use caffeine: No ROS Constitutional Constitutional: Denies anorexia, change in weight, chills, fatigue, fever(s), malaise, night sweats, weakness or other Eyes Eyes: Denies blurry vision, change in eye color, change in vision, discharge from eye(s), double vision, erythema, eye pain, loss of vision or other ENT HEENT: Denies abnormal hearing, dysphagia, ear pain, epistaxis, headache(s), hearing loss, nasal congestion, nasal discharge, post nasal drip, sinus pressure, sore throat or other Cardiovascular Cardiovascular: Denies chest pain, claudication, dyspnea on exertion, edema, lightheadedness, orthopnea, palpitations, paroxysmal nocturnal dyspnea, rapid heart rate, syncope or other Respiratory/Chest Respiratory/Chest: Denies cough, dyspnea, excessive phlegm production, hemoptysis, productive cough, shortness of breath at rest, shortness of breath with exertion, wheezing or other Gastrointestinal Gastrointestinal: Denies abdominal pain, coffee ground emesis, constipation, diarrhea, dyspepsia, hematemesis, hematochezia, loose stools, melena, nausea, vomiting or other Genitourinary Genitourinary: Denies burning urination, difficulty urinating, dysuria, hematuria, nocturia, urinary frequency, urinary hesitancy, urinary incontinence, urinary urgency or other Musculoskeletal Musculoskeletal: Reports arthralgias, back pain, joint pain, joint stiffness and neck pain Neurologic Neurologic: Denies abnormal gait, abnormal speech, confusion, disequilibrium, dizziness, focal weakness, headache(s), numbness, paresthesias, seizure-like activity, seizures, syncope, tingling, tremor(s) or other Psychiatric Psychiatric: Denies anxiety, depression, homicidal ideation, suicidal ideation or other Endocrine Endocrinology: Denies change in body appearance, cold intolerance, excessive sweating, heat intolerance, polydipsia, polyuria or other Hematologic/Lymphatic Hematologic/Lymphatic: Denies anemia, easy bleeding, easy bruising, lymphadenopathy or other Allergic/Immunologic Allergic/Immunologic: Denies rhinitis, hives, eczemia, asthma or other Vital Signs Vital Signs Vital Signs: 04/16/22 12:25 04/16/22 12:30 04/16/22 12:24 Temperature 97.2 F L Temperature Source Temporal Pulse Rate 52 L 55 L Respiratory Rate 12 16 Respiratory Effort Normal Non-Labored Respiratory Pattern Normal Blood Pressure 230/83 H 226/85 H Blood Pressure Mean 132 132 Pulse Ox 97 99 Oxygen Delivery Method Room Air Room Air 04/16/22 14:24 Temperature Temperature Source Pulse Rate 46 L Respiratory Rate 15 Respiratory Effort Respiratory Pattern Blood Pressure 141/66 H Blood Pressure Mean 91 Pulse Ox 96 Oxygen Delivery Method Room Air Weight Weight: 82.2 kg Body Mass Index (BMI) 27.5 Physical Exam Const alert, oriented x3 and no apparent distress Constitutional Narrative: Thin, upper middle-aged, white male sitting up in bed, at bedside, appears comfortable nontoxic no mental deficits General Appearance: cooperative HEENT normocephalic, head/scalp atraumatic and moist oral mucous membranes HEENT Narrative: Mild hearing loss Eyes PERRL, EOMs intact bilaterally and conjunctivae normal Eyes Narrative: Scleral icterus Neck no lymphadenopathy, supple and no carotid bruits Neck Narrative: Trachea midline, no thyroid enlargement Resp normal respiratory effort, no retractions, no use of accessory muscles and clear to auscultation bilaterally Resp Narrative: Diminished but clear Auscultation: Negative for crackles, rhonchi or wheezes Cardio regular rhythm, S1 normal heart sound, S2 normal heart sound, no murmurs, no rub, no gallops and no clicks Cardio Narrative: Bradycardic GI normal to inspection, nondistended, normoactive bowel sounds, soft to palpation, non-tender and non-distended Extremity no clubbing, cyanosis or edema Extremity Narrative: 2+ pedal pulses Neuro oriented x3, CN's II-XII intact bilaterally, moves all extremities and no focal motor deficits Speech: speech normal Psych affect normal Psych Narrative: Very pleasant and appropriately interactive Results Medical Records Data Attestation: I reviewed the patient's medical records Lab / Micro Data Result Diagrams: 04/16/22 14:18 04/16/22 14:18 Labs: Laboratory Results - last 24 hr 04/16/22 14:18: WBC 7.0, RBC 3.35 L, Hgb 10.8 L, Hct 32.3 L, MCV 96.4 H, MCH 32.2 H, MCHC 33.4, RDW Std Deviation 41.8, RDW Coeff of Dipti 11.9, Plt Count 198, MPV 9.6, Immature Gran % (Auto) 1.000 H, Neut % (Auto) 80.0 H, Lymph % (Auto) 7.0 L, [place] % (Auto) 8.1, Eos % (Auto) 3.8, Baso % (Auto) 0.1, Absolute Neuts (auto) 5.6, Absolute Lymphs (auto) 0.49 L, Nucleated RBC % 0, Differential Comment SCANNED, Anisocytosis [employer], Microcytosis [employer]GER, Macrocytosis [employer] MA[employer]GER 04/16/22 14:18: Sodium 132 L, Potassium 4.0, Chloride 97 L, Carbon Dioxide 28.0, Anion Gap 7, BUN 34 H, Creatinine 1.48 H, Estim Creat Clear Calc 49.43, Est GFR (MDRD) Af Amer 62, Est GFR (MDRD) Non-Af 51 L, BUN/Creatinine Ratio 23.0 H, Glucose 100, Calcium 9.2, Total Bilirubin 0.50, AST 26, ALT 23, Alkaline Phosphatase 137 H, Troponin I High Sens 17, Total Protein 7.2, Albumin 3.3, Globulin 3.9, Albumin/Globulin Ratio 0.8 L 04/16/22 14:18: B-Natriuretic Peptide 297.5 H Radiology Impression Brain CT 04/16/22 13:49 IMPRESSION: 1. No acute intracranial abnormality. 2. Senescent changes. Electronically Signed: Nain Soto MD at 15:16 EST , Chest CTA 04/16/22 13:49 IMPRESSION: 1. No evidence of acute pulmonary embolism. 2. No acute pulmonary abnormality. 3. Mild cardiomegaly. 4. Diffuse metastatic bone disease. 5. Chronic bilateral scapular and sternal fractures Electronically Signed: Nain Soto MD at 15:35 EST , Chest X-Ray 04/16/22 13:49 IMPRESSION: No acute cardiopulmonary abnormality. No interval change. Electronically Signed: Nain Soto MD at 15:24 EST , Cervical Spine CT 04/16/22 13:51 IMPRESSION: 1. No acute abnormality of the cervical spine. 2. Prominent diffuse spondylosis. 3. Chronic fracture deformity of the T2 vertebral body. Electronically Signed: Nain Soto MD at 15:20 EST , Assessment & Plan Assessment/Plan (1) Syncope: (2) RAFA (acute kidney injury): PLAN: Plan Syncope -Etiology is unclear at this time however I would be most suspicious for cardiac arrhythmia -Check echocardiogram -Cycle cardiac enzymes -Monitor on telemetry -Patient may need either a event monitor or loop recorder if we are not able to capture anything during his hospital course -Check TSH -Patient is bradycardic but upon review of previous admissions it appears his heart rate runs anywhere from the 40s to 60 range so this is not a new finding -Patient had extensive imaging to rule out any fractures or injuries related to the above RAFA -Baseline serum creatinine appears to be between 0.9 and 1.1 -Current serum creatinine 1.48 -Appears dry with hyponatremia and hypochloremia along with an elevated BUN -Hold home Lasix Chronic bradycardia -Baseline heart rate appears to be between 40 and 60 is -We will continue home medications as this is not new -Monitor on telemetry -Check TSH Elevated blood pressure with a history of hypertension -Continue lisinopril 40 mg daily -Continue isosorbide mononitrate 60 mg p.o. twice daily -Continue metoprolol 25 mg twice daily -Continue 5 mg daily -Hold Lasix with RAFA Hyperlipidemia -Continue atorvastatin Metastatic squamous cell carcinoma -Mets to bone--> extensive mets noted -Patient is currently on Keytruda -Continue pain medication CAD/compensated diastolic heart failure -History of CABG x3 in 2019 -Continue aspirin -Continue Plavix DM-2 with neuropathy -Continue gabapentin -Patient is strictly diet-controlled -No current need for Accu-Cheks or sliding scale DVT prophylaxis -Lovenox -SCDs CODE STATUS -Full code as per discussion with patient the emergency department on admission Charges/Coding Visit Charges Inpatient E&M: 79424 Init Hosp L2
[2022-04-16 16:21] LABS: Reflex Troponin-HS? (from REC) Y
[2022-04-16 16:51] LABS: Amphetamine Urine VISTA NEGATIVE (<1000 ng/mL); Barbiturate Urine VISTA NEGATIVE (< 200 ng/mL); Benzodiazepine Urine VISTA NEGATIVE (< 200 ng/mL); Cocaine Urine VISTA NEGATIVE (< 300 ng/mL); Ecstacy Urine VISTA NEGATIVE (< 500 ng/mL); Methadone Urine VISTA NEGATIVE (< 300 ng/mL); PCP Urine VISTA NEGATIVE (< 25 ng/mL); THC Urine VISTA NEGATIVE (< 50 ng/mL); Vista UDS pH Range 5
[2022-04-16 16:56] LABS: Troponin-I HS 17 pg/mL (3.0-78.0)
--- NOTE | 2022-04-16 17:28 | ECHOD_ITS ---
Reason For Study: syncope/near syncope Procedure This was a 2D Doppler, Color Flow transthoracic echocardiogram. The study was technically difficult. Exam performed supine due to pain from bone cancer. Exam performed portable in patient room. Left Ventricle Normal LV size. Mild concentric left ventricular hypertrophy. Left ventricular systolic function is normal. The estimated ejection fraction is 65 %. Diastolic function is indeterminate. No regional wall motion abnormalities noted. Right Ventricle Normal RV size. Normal systolic function. Atria The left atrium is mildly enlarged. Normal right atrium. No doppler evidence for ASD. Mitral Valve There is moderate mitral annular calcification. Extension of the mitral annular calcification onto the posterior mitral valve leaflet. Mild focal mitral valve calcification of the anterior leaflet. The mitral papillary muscle appears thickened and/or calcified. Trivial mitral valve insufficiency. Tricuspid Valve Normal tricuspid valve. Trivial tricuspid valve insufficiency. Unable to estimate RV systolic pressure/pulmonary artery pressure due to technically difficult study. Aortic Valve Trisinus/trileaflet aortic valve. Mild focal aortic valve calcification. Pulmonic Valve The pulmonic valve is not well visualized. Great Vessels Normal sized aortic root. Calcified aortic root. Pericardium/Pleural No pericardial effusion. MMode/2D Measurements & Calculations LVIDd: 4.9 cm IVSd: 1.3 cm Ao root diam: 3.0 cm LVIDs: 3.4 cm LVPWd: 1.4 cm RVDd: 4.2 cm FS: 30.2 % LAV(MOD-bp): 79.5 ml LVAd ap4: 33.0 cm2 LVAd ap2: 29.3 cm2 LAV(MOD-bp) Indexed: 41.9 ml/m2 LVLd ap4: 7.8 cm LVLd ap2: 7.4 cm LAV(MOD-sp2): 74.3 ml EDV(MOD-sp4): 118.0 ml EDV(MOD-sp2): 98.1 ml LAV(MOD-sp4): 74.2 ml EDV(sp4-el): 119.3 ml EDV(sp2-el): 98.6 ml LVAs ap4: 18.1 cm2 LVAs ap2: 16.5 cm2 LVLs ap4: 6.6 cm LVLs ap2: 6.3 cm ESV(MOD-sp4): 46.1 ml ESV(MOD-sp2): 38.1 ml ESV(sp4-el): 42.2 ml ESV(sp2-el): 36.5 ml EF(MOD-sp4): 60.9 % EF(MOD-sp2): 61.2 % EF(sp4-el): 64.6 % SV(MOD-sp4): 71.9 ml SV(MOD-sp2): 60.0 ml SV(sp4-el): 77.1 ml LA dimension(2D): 5.1 cm LA A4 area: 22.9 cm2 Time Measurements MV dec time: 0.29 sec Doppler Measurements & Calculations MV E max [place]: 109.8 cm/sec Lat Peak E' [place]: 9.2 cm/sec Med Peak E' [place]: 8.8 cm/sec MV A max [place]: 67.7 cm/sec E/E' lat: 12.0 E/E' med: 12.5 MV E/A: 1.6 MV dec slope: 376.5 cm/sec2 Ao V2 max: 111.1 cm/sec LV V1 max: 107.1 cm/sec Ao max P.0 mmHg LV V1 max P.6 mmHg Ao V2 mean: 68.6 cm/sec LV V1 mean P.0 mmHg Ao mean P.3 mmHg LV V1 mean: 64.9 cm/sec Ao V2 VTI: 23.0 cm LV V1 VTI: 22.5 cm AV (velocity ratio): 0.98 PA V2 max: 98.5 cm/sec ECHO/Echo Complete Interpretation Summary The study was technically difficult. Left ventricular systolic function is normal. The estimated ejection fraction is 65 %. Mild concentric left ventricular hypertrophy. The left atrium is mildly enlarged. There is moderate mitral annular calcification. Extension of the mitral annular calcification onto the posterior mitral valve l eaf[place]. Mild focal mitral valve calcification of the anterior leaflet. The mitral papillary muscle appears thickened and/or calcified. Trivial mitral valve insufficiency. Trivial tricuspid valve insufficiency. Mild focal aortic valve calcification. Calcified aortic root. Unable to estimate RV systolic pressure/pulmonary artery pressure due to techni [place] difficult study. Diastolic function is indeterminate. Ordering Physician: Suki Dasilva Referring Physician: Delgado Smith Performed By: Lidia Alejo RDCS, RVT
[2022-04-16] MEDS: HYDROmorphone 0.5 MG/0.5 ML SYRINGE IV (17:47)
[2022-04-16] MEDS: Lactated Ringers 1,000 ML 75 ML IV (20:00)
[2022-04-16 20:43] LABS: Troponin-I HS 24 pg/mL (3.0-78.0)
[2022-04-16] MEDS: Tamsulosin HCl 0.4 MG Capsule PO (21:18)
[2022-04-16] MEDS: Isosorbide Mononitrate 60 MG Tablet PO (21:19)
[2022-04-16] MEDS: Gabapentin 100 MG Capsule 200 MG PO (21:20)
[2022-04-16] MEDS: Metoprolol Tartrate 25 MG Tablet PO (21:20)
[2022-04-16] MEDS: oxyCODONE 5 MG Tablet 10 MG PO (21:25)
[2022-04-16] MEDS: Clopidogrel Bisulfate 75 MG Tablet PO (22:00)
[2022-04-17] VITALS (9 sets, daily range): BP systolic 159–215; BP diastolic 73–76; PULSE 47–62; RESP 16–18; TEMP 36.6–37.2; O2SAT 92–98
[2022-04-17 06:09] LABS: Absolute Lymphocyte Count 0.63 X10^3/uL (0.83-4.51); Absolute Neutrophil Count 3.8 X10^3/uL (2.0-7.7); Basophil# 0.04 X10^3/uL; Basophil% 0.7 % (0-1); Eosinophils% 7.1 % (0-5); Hematocrit 31.2 % (40-54); Hemoglobin 10.2 g/dL (13.0-16.5); Lymphocyte # 0.63 X10^3/ul (0.83-4.51); Lymphocyte % 11.2 % (19-41); Mean Corp Hgb Conc 32.7 g/dL (32-36); Mean Corpuscular Hgb 32.2 pg (27.0-32.0); Mean Corpuscular Volume 98.4 fL (80-94); Mean Platelet Vol. 10.2 fl (6.2-12.0); Monocyte# 0.66 X10^3/uL; Monocyte% 11.7 % (0-10); NRBC Flagged by Analyzer 0 % (0-5); Neutrophil % 67.3 % (47-70); Platelet Count 200 K/mm3 (150-450); RBC Distribution Width SD 43.9 fl (35.1-43.9); Red Blood Count 3.17 M/mm3 (4.6-6.2); White Blood Count 5.6 K/mm3 (4.4-11.0)
[2022-04-17] MEDS: Gabapentin 100 MG Capsule 200 MG PO ×2 (06:21→14:44)
[2022-04-17 06:51] LABS: ALB/GLOB Ratio 0.8 RATIO (0.9-2.4); AST(SGOT) 20 U/L (15-37); Alanine Aminotransfer ALT/SGPT 22 U/L (16-61); Albumin, Serum 2.8 g/dL (3.2-5.0); Alkaline Phosphatase 115 U/L (45-117); Anion Gap 7 (5-15); BUN 31 mg/dL (7-18); BUN/Creat Ratio 21.8 RATIO (10-20); Calcium,Total 8.7 mg/dL (8.5-10.1); Chloride 102 mmol/L (98-107); Creatinine, Serum 1.42 mg/dL (0.70-1.30); EST Glomerular Filtration Rate 53 mL/min (>60); Est Glom Filt Rate - Afr Amer 65 mL/min (>60); Estimated Creatinine Clearance 51.51 ml/min; Globulin 3.6 g/dL (2.2-4.2); Glucose 85 mg/dL (74-106); Magnesium 1.7 mg/dL (1.6-2.6); Phosphorus 3.9 mg/dL (2.5-4.9); Potassium 3.9 mmol/L (3.5-5.1); Protein, Total 6.4 g/dL (6.4-8.2); Sodium Level 137 mmol/L (136-145); Thyroid Stim Hormone (TSH) 0.88 uIU/mL (0.358-3.74)
--- NOTE | 2022-04-17 10:14 | PN.HOSP_ITS ---
Subjective Subjective Follow-up for syncope. Patient was admitted with syncope first-time in life. As per the he was unconscious for about 5 to 10 minutes and after that he was groggy until EMS brought to ED. As per EMS, GCS was 11. He was alert oriented x1 to self. Was mildly agitated, swinging his legs. He denies any focal acute neurological symptoms including visual changes/blurry vision, hemianopia, diplopia, new weakness or sensory changes or dysarthria or dysphagia or language deficit. Objective Data Objective Data Vital Signs: Vital Signs Temp Pulse Resp BP Pulse Ox O2 Del Method 97.9 F 47 L 16 215/76 H 98 Room Air 04/17/22 02:00 04/17/22 02:01 04/17/22 02:00 04/17/22 02:00 04/17/22 07:48 04/17/22 07:48 Oxygen Delivery Method Room Air Weight: 168 lb 3.2 oz Body Mass Index (BMI) 25.5 Intake & Output: Intake and Output for Last 24 Hours 04/15/22 04/16/22 04/17/22 23:59 23:59 23:59 Intake Total 500 / 500 796.25 / 796.25 Output Total 400 / 400 200 / 200 Balance 100 / 100 596.25 / 596.25 Lab / Micro Data Result Diagrams: 04/17/22 05:20 04/17/22 05:20 Labs: Laboratory Results - last 24 hr 04/16/22 14:18: WBC 7.0, RBC 3.35 L, Hgb 10.8 L, Hct 32.3 L, MCV 96.4 H, MCH 32.2 H, MCHC 33.4, RDW Std Deviation 41.8, RDW Coeff of Dipti 11.9, Plt Count 198, MPV 9.6, Immature Gran % (Auto) 1.000 H, Neut % (Auto) 80.0 H, Lymph % (Auto) 7.0 L, [place] % (Auto) 8.1, Eos % (Auto) 3.8, Baso % (Auto) 0.1, Absolute Neuts (auto) 5.6, Absolute Lymphs (auto) 0.49 L, Nucleated RBC % 0, Differential Comment SCANNED, Anisocytosis PRODUCTION CONTROL SUPERVISOR, Microcytosis PRODUCTION CONTROL SUPERVISOR, Macrocytosis PRODUCTION CONTROL SUPERVISOR 04/16/22 14:18: Sodium 132 L, Potassium 4.0, Chloride 97 L, Carbon Dioxide 28.0, Anion Gap 7, BUN 34 H, Creatinine 1.48 H, Estim Creat Clear Calc 49.43, Est GFR (MDRD) Af Amer 62, Est GFR (MDRD) Non-Af 51 L, BUN/Creatinine Ratio 23.0 H, Glucose 100, Calcium 9.2, Total Bilirubin 0.50, AST 26, ALT 23, Alkaline Phosphatase 137 H, Troponin I High Sens 17, Total Protein 7.2, Albumin 3.3, Globulin 3.9, Albumin/Globulin Ratio 0.8 L 04/16/22 14:18: B-Natriuretic Peptide 297.5 H 04/16/22 16:25: Urine Opiates Screen NEGATIVE, Urine Methadone Screen NEGATIVE, Ur Barbiturates Screen NEGATIVE, Ur Phencyclidine Scrn NEGATIVE, Ur Amphetamines Screen NEGATIVE, MDMA (Ecstasy) Screen NEGATIVE, U Benzodiazepines Scrn NEGATIVE, Urine Cocaine Screen NEGATIVE, U Cannabinoids Screen NEGATIVE, Ur Drug Screen Comment 04/16/22 16:30: Ethyl Alcohol 5.0 04/16/22 16:30: Troponin I High Sens 17 04/16/22 20:13: Troponin I High Sens 24 04/17/22 05:20: WBC 5.6, RBC 3.17 L, Hgb 10.2 L, Hct 31.2 L, MCV 98.4 H, MCH 32.2 H, MCHC 32.7, RDW Std Deviation 43.9, RDW Coeff of Dipti 12.0, Plt Count 200, MPV 10.2, Immature Gran % (Auto) 2.000 H, Neut % (Auto) 67.3, Lymph % (Auto) 11.2 L, [place] % (Auto) 11.7 H, Eos % (Auto) 7.1 H, Baso % (Auto) 0.7, Absolute Neuts (auto) 3.8, Absolute Lymphs (auto) 0.63 L, Nucleated RBC % 0 04/17/22 05:20: Sodium 137, Potassium 3.9, Chloride 102, Carbon Dioxide 28.0, Anion Gap 7, BUN 31 H, Creatinine 1.42 H, Estim Creat Clear Calc 51.51, Est GFR (MDRD) Af Amer 65, Est GFR (MDRD) Non-Af 53 L, BUN/Creatinine Ratio 21.8 H, Glucose 85, Calcium 8.7, Phosphorus 3.9, Magnesium 1.7, Total Bilirubin 0.30, AST 20, ALT 22, Alkaline Phosphatase 115, Total Protein 6.4, Albumin 2.8 L, Globulin 3.6, Albumin/Globulin Ratio 0.8 L, TSH 0.88 Radiography Diagnostic Testing: Radiology Impression Brain CT 04/16/22 13:49 IMPRESSION: 1. No acute intracranial abnormality. 2. Senescent changes. Electronically Signed: Nain Soto MD at 15:16 EST , Chest CTA 04/16/22 13:49 IMPRESSION: 1. No evidence of acute pulmonary embolism. 2. No acute pulmonary abnormality. 3. Mild cardiomegaly. 4. Diffuse metastatic bone disease. 5. Chronic bilateral scapular and sternal fractures Electronically Signed: Nain Soto MD at 15:35 EST , Chest X-Ray 04/16/22 13:49 IMPRESSION: No acute cardiopulmonary abnormality. No interval change. Electronically Signed: Nain Soto MD at 15:24 EST , Cervical Spine CT 04/16/22 13:51 IMPRESSION: 1. No acute abnormality of the cervical spine. 2. Prominent diffuse spondylosis. 3. Chronic fracture deformity of the T2 vertebral body. Electronically Signed: Nain Soto MD at 15:20 EST , Physical Exam Narrative Physical exam General: Alert, Oriented x3, Cooperative HEENT: Atraumatic, PERRLA, EOMI, Normocephalic Oral: No Gingival or Mucosal Lesions/ Ulcerations Neck: Supple, No JVD, Negative Carotid Bruits Lungs: Air entry diminished in bilateral lung bases. No crepitation/rhonchi Cardiovascular: CABG surgery scar. Sinus bradycardia, Normal S1, Normal S2, No murmurs/gallops/rub. Abdomen: Bowel Sounds Present, Soft, Non Tender, Non-Distended : No renal angle tenderness. No suprapubic tenderness. Extremities: No edema, Capillary Refill Less than 3 Seconds Skin: No rashes, No breakdown Musculoskeletal: No Tenderness to Palpation of Joints or Extremities. Left foot Charcot joint UVJs boot Neurological: Cranial nerves II-XII grossly intact, DTR 2+/4 and Symmetrical, no dysarthria and dysphonia/language deficit. Psych/Mental Status: Normal Affect, Appropriate. Assessment & Plan Assessment/Plan (1) Syncope: (2) RAFA (acute kidney injury): PLAN: Plan This is a 61-year-old gentleman was brought by EMS for first-time syncope. No prior history of syncope or stroke. 1. Syncope most likely cardiac syncope: Patient is admitted on telemetry. Patient currently on baseline. pill packer shows sinus bradycardia. Twe lve-lead EKG sinus bradycardia 55 beats minute, QTC 468. Previous EKG on May 10, 2021, normal sinus rhythm 74 beats per serial troponins are negative. 2D echo was done. Serum magnesium and phosphorus level and TSH normal. CPK ordered. Patient might need event monitor at the time of discharg e. I gave the option of MRI although probability of a stroke is very less as patient's history and circumstances of syncope does not go along with stroke but patient and his wanted to wait until echo is reported. He has a titanium plate in the back but he had MRI after that. -Patient had extensive imaging to rule out any fractures or injuries related to the above RAFA exact etiology unclear possible prerenal: Improvement in creatinine. Continue IV fluid Chronic bradycardia -Baseline heart rate appears to be between 40 and 60 currently in 60s. BP is high. Patient on lisinopril 40 mg, isosorbide mononitrate 60 mg twice daily, metoprolol 25 mg twice daily and amlodipine 5 mg daily. Hydralazine 50 mg twice daily added along with hydralazine 10 mg IV q 4 hourly as needed for SBP greater than 180 mmHg. 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 Patient follows Dr. Carrera -Patient is currently on Keytruda -Continue pain medication CAD/compensated diastolic heart failure -History of CABG x3 in 2018. Previous echo in July 2019 showed EF 60%, mild TR trivial MR and mitral valve thickening with moderate annular calcification pulmonary hypertension. RVSP 43 mmHg suggestive of secondary moderate pulmonary hold for SBP less than 130 mmHg -Continue aspirin -Continue Plavix DM-2 with neuropathy -Continue gabapentin -Patient is strictly diet-controlled -No current need for Accu-Cheks or sliding scale DVT prophylaxis -Lovenox -SCDs CODE STATUS -Full code as per discussion with patient the emergency department on admission Total time of the visit including total time spent in counseling or coordination of care, (more than 50% of the total time, spent in obtaining medical information from nurses and other ancillary care providers,explaining to the patient about labs, imaging, diagnosis and management of active complex medical conditions), discussion with patient and , previous echo, review of labs and imaging is 40 minutes. Charges/Coding Visit Charges Inpatient E&M: 05190 Subs Hosp L2
[2022-04-17] MEDS: Aspirin E.C. 81 MG Tablet PO (11:18)
[2022-04-17] MEDS: Metoprolol Tartrate 25 MG Tablet PO (11:20)
[2022-04-17] MEDS: Isosorbide Mononitrate 60 MG Tablet PO (11:20)
[2022-04-17] MEDS: Enoxaparin 40 MG/0.4 ML Syringe SC (11:21)
[2022-04-17] MEDS: amLODIPine 5 MG Tablet PO (11:21)
[2022-04-17] MEDS: Famotidine 20 MG Tablet 40 MG PO (11:22)
[2022-04-17] MEDS: Senna/Docusate Sodium 1 Tablet PO (11:23)
[2022-04-17] MEDS: Allopurinol 100 MG Tablet PO (11:23)
[2022-04-17] MEDS: hydrALAZINE 50 MG Tablet PO (11:23)
[2022-04-17] MEDS: Lisinopril 40 MG Tablet PO (11:23)
[2022-04-17] MEDS: Ferrous Gluconate 324 MG Tablet PO ×2 (11:24→17:05)
[2022-04-17] MEDS: oxyCODONE 5 MG Tablet 10 MG PO (11:48)
[2022-04-17 11:52] LABS: CPK Total, Creatine Kinase 78 U/L (39-308)
--- NOTE | 2022-04-17 13:50 | CASEMGMT ---
LLOYD GOA DIRECTOR OF CHILD WELFARE SERVICES CM to room to meet with patient for initial transition planning/care coordination assessment. LLOYD GAO introduced self and role at [facility].? Pt voices understanding and consents to assessment at this time.? Pt resting in bed in no distress at this time.? @ bedside. Pt is A/O at this time and answers all questions appropriately.?? Care providers, pharmacy, and demographics verified/updated at this time. PCP: Sarah Specialists: Jennifer-cardiology, Kiko-oncology Preferred Pharmacy: [facility] Retail Insurance: [employer] Prescription Benefit:? yes Living Will/HPOA:? Pt does not currently have LW/HCPOA. LNOK: , Maya Living Arrangements: Lives w/his and pt's mother lives w/them, as they take care of her. They live in a on-story home w/ramp entrance. Mother currently @ SNF, but will be returning to their home soon. Pt is independent. Transportation: Pt states drives self and states no transportation concerns at this time.? also drives. DME: ?States has the following DME:? cane, medial boot left foot. Pt also has walker and W/C available, but does not use them. Pt states no need for further DME at this time.? HHC/SNF: No hx SNF, has had HHC in the past. Denies need for HHC @ d/c and no needs identified. Pt wishes to return home and states has no concerns with going home at time of discharge.? CM to follow for any discharge planning/needs.? Pt and voice no further concerns/needs at this time.? Advised them to ask for CM if any further questions/concerns/needs arise.? They voice understanding. PLAN: ?Home Cindi HAM RN, CM
[2022-04-17] MEDS: Lactated Ringers 1,000 ML 100 ML IV (14:42)
[2022-04-17] MEDS: Juven (unflavored) Packet 1 PACKET PO (17:06)
--- NOTE | 2022-04-17 17:25 | CON.PCM.CA_ITS ---
Assessment & Plan Assessment/Plan (1) Syncope: PLAN: The patient experienced syncope. The etiology is unclear at this time. Thus far his rule out [place] protocol has been negative. His cardiac rhythm is been monitored and is demonstrated sinus rhythm/sinus bradycardia. His CT scan was considered negative for great vessel disease or thromboembolic disease such as PE. At the present time from a cardiac standpoint based upon his bradycardia his beta-leonardo dose will be decreased to metoprolol tartrate 12.5 mg p.o. twice daily. He will be asked as an outpatient to wear a 30-day ambulatory event monitor to evaluate for any other obvious cardiac dysrhythmia or conduction system disease it may contribute to his event. He was asked to consider further evaluation, based upon his history of CAD and CABG for any coronary ischemia that may contribute to ischemic mediated cardiac dysrhythmias, with a pharmacologic stress nuclear imaging study. The procedure and risk were discussed with him. He declined this evaluation at this time. (2) Atherosclerosis of coronary artery without angina pectoris: QUALIFIERS: Coronary Disease-Associated Artery/Lesion type: [place] artery [place] vs. transplanted heart: [place] heart Qualified Code(s): I25.10 - 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of [place] coronary artery without angina pectoris PLAN: He does have a history of CAD. At the moment he denies any symptoms suspicious for ongoing angina pectoris. His cardiac enzymes have been negative. His ECG is demonstrated no acute changes. He will continue medical management. This would include agent such as aspirin, antiplatelets as deemed appropriate, nitrates as deemed appropriate, beta- blockers with adjustment of dose as noted, and lipid-lowering agents with statins-he is on atorvastatin 40 mg p.o. daily. (3) H/O coronary artery bypass surgery: PLAN: His CABG history was reviewed with him. Again he was offered further evaluation for any ischemic mediated changes that would contribute to his event with a pharmacologic stress nuclear imaging study. He declined at this time. He also did not want to proceed with any invasive cardiovascular evaluation such as diagnostic cardiac catheterization. Thus he will continue medical therapy as described. (4) Chronic diastolic (congestive) heart failure: PLAN: He has a history of chronic diastolic mediated CHF. The moment appears without any obvious symptoms. His left ventricle was reassessed with an echocardiogram as noted. At the present time we will continue medical therapy as described above. His medications will also include afterload reducing agents such as CAMILA inhibitor's. He is currently on lisinopril at 40 mg p.o. daily. (5) HLD (hyperlipidemia): QUALIFIERS: Hyperlipidemia type: unspecified Qualified Code(s): E78.5 - Hyperlipidemia, unspecified PLAN: He will continue his lipid-lowering therapy with his atorvastatin. (6) Essential hypertension: PLAN: He states he is no longer taking his amlodipine therapy. Thus his other medications may need to be adjusted to compensate for his blood pressure. This may include adjusting the dose of medication such as Apresoline/hydralazine. This could be increasing his dose to 50 mg p.o. 3 times daily. (7) Bradycardia: PLAN: He does have a history of bradycardia. His metoprolol dose will be decreased to 12.5 mg p.o. twice daily. Based upon his history of bradycardia on his event he will undergo further evaluation with a 30-day ambulatory event monitor. 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 He states this does factor into his decision-making process. He will continue evaluation care per his other physicians. Addt'l Comments The patient's case was discussed and reviewed with the patient, his spouse, and Dr. Caal. This note was generated using a voice recognition system and there may be incorrect words, spelling or punctuation that were not noted when reviewing the office note prior to saving. Comment: Time spent in the patient's evaluation, examination, documentation, dis cussion, etc.: 60 minutes HPI Consult Data Date of Consult: 04/17/22 HPI Narrative HPI Narrative: CLAY RUBIO, is a 61 year old white male who presents for cardiovascular consultation based upon concerns of syncope superimposed upon his history of un derlying history of CAD, CABG, CHF-diastolic, conduction system disorder with a history of second-degree AV block [place] 1, hyperlipidemia, and hypertension. He states he was at home, sitting in the chair, reviewing his mother's medicine bottles, when he apparently lost consciousness. He states he awoke on the floor with people standing around him. He states he found out later that his mov ed him from the chair to the floor. He states when he awoke he felt transiently nauseated and somewhat groggy . Prior to his event he does not recall any chest discomfort or difficulty breathing. He denied any nausea at that time or emesis. There was no report of diaphoresis. He does not recall sensing any type of palpitations. He notes afterwards he did not lose consciousness nor did he lose control of his bladder or bowels. He states he was assisted by the EMS system. He was brought to the hospital for further evaluation and care. Since being in the hospital he is undergone cardia c enzymes x3 which have been negative. He had an ECG performed that demonstrated sinus bradycardia with poor R wave progression and no acute ECG changes. A chest x-ray was performed. Based upon review of the chest x-ray film and it. He demonstrated good inspiratory effort, post open heart surgery changes/sternotomy wires, and no acute cardiopulmonary disease process. He also had a chest CTA performed. There was no evidence of acute great vessel disease or thromboembolic disease. According to radiology he did have diffuse metastatic bone disease. He has been on a awake overnight monitor. He has demonstrated sinus rhythm/sinus bradycardia. He has had no other ectopy/cardiac dysrhythmias reported. He underwent further evaluation with a transthoracic echocardiogram. The results are as noted below. He has denied other episodes of orthopnea or PND. He states on amlodipine therapy that he had lower extremity edema. He states it was discontinued in the past. It was restarted. He started to have lower extremity edema again. Thus he discontinued this himself. [facility] Medical History Abdominal pain Alcohol abuse Anemia Atherosclerosis of coronary artery without angina pectoris 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[place] coronary artery w/angina pectoris Bacteremia Cataracts, both eyes Charcot's joint, left ankle and foot Chronic diastolic (congestive) heart failure Chronic pain Diabetes mellitus, type II Diabetic retinopathy Diastolic dysfunction with acute on chronic heart failure Essential hypertension GERD (gastroesophageal reflux disease) Hammer toe of left foot HLD (hyperlipidemia) Hyponatremia Hyponatremia Hyponatremia Hyponatremia Infection of left foot Iron deficiency anemia 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 MSSA bacteremia Nephrotic syndrome Neuropathy Non-smoker Normocytic anemia Obesity (BMI 30.0-34.9) Osteomyelitis PAD (peripheral artery disease) Postoperative atrial fibrillation (06/12/18) 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) Secondary pulmonary arterial hypertension Sinus bradycardia Type 2 diabetes mellitus Ulcer of left foot Home Medications aspirin 81 mg tablet,delayed release 81 mg PO DAILY heart health 09/09/18 [History Last Taken 04/15/22] nitroglycerin 0.4 mg sublingual tablet 0.4 mg sublingual Q5M PRN Cardiac/Chest Pain #25 tabs 10/17/18 [Rx Last Taken 08/08/19] clopidogrel 75 mg tablet 75 mg PO QHS ANTIPLATELET 08/08/19 [History Last Taken 04/15/22] cholecalciferol (vitamin D3) 125 mcg (5,000 unit) capsule 125 mcg PO ROGERS SUPPLEMENT 01/04/21 [History Last Taken 04/15/22] atorvastatin 40 mg tablet 40 mg PO QHS cholesterol #90 tabs 01/18/21 [Rx Last Taken 1 Week Ago ~04/09/22] methadone 5 mg tablet 5 mg PO QHS PAIN 05/10/21 [History Last Taken 04/15/22] ondansetron HCl 4 mg tablet 4 mg PO Q6H PRN Nausea 05/10/21 [History Last Taken 05/10/21] sennosides 8.6 mg-docusate sodium 50 mg tablet (Senexon-S) 1 tab 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 05/10/21 [History Last Taken 04/16/22] acetaminophen 500 mg oral powder packet (Tylenol Extra Strength) 500 mg PO Q6H PRN Pain 06/06/21 [History Last Taken 04/15/22] blood ketone glucose monitor #1 ea 06/06/21 [History Last Taken Unknown] lancets #100 ea 06/06/21 [History Last Taken Unknown] lisinopril 20 mg tablet 40 mg PO BID bp 06/13/21 [History Last Taken 04/16/22] allopurinol 100 mg tablet 100 mg PO DAILY gout 09/06/21 [History Last Taken 04/15/22] famotidine 40 mg tablet 40 mg PO DAILY GERD 09/13/21 [History Last Taken 04/15/22] gabapentin 100 mg capsule 200 mg PO TID NEUROPATHY 09/13/21 [History Last Taken 04/16/22] magnesium chloride 64 mg (magnesium chloride) tablet,delayed release (Mag 64) 64 mg PO 2XW supplement 09/13/21 [History Last Taken 3 Days Ago ~04/13/22] oxycodone 10 mg tablet 10 mg PO Q4H PRN Pain 09/13/21 [History Last Taken 04/16/22] pembrolizumab 25 mg/mL intravenous solution (Keytruda) 25 mg IV .UD CANCER 09/13/21 [History Last Taken 04/11/22] temazepam 15 mg capsule 15 mg PO QHS PRN Insomnia 09/13/21 [History Last Taken 04/15/22] cephalexin 500 mg capsule 500 mg PO TID infection 10/26/21 [History Last Taken 04/16/22] sodium chloride 1 gram tablet 1,000 mg PO QD-QID PRN electrolyte replenishment #30 tabs 01/31/22 [Rx Last Taken 04/15/22] ferrous fumarate 324 mg (106 mg iron) tablet 324 mg PO BID supplement 04/16/22 [History Last Taken 04/16/22] furosemide 40 mg tablet 40 mg PO QHS water 04/16/22 [History Last Taken 04/15/22] isosorbide mononitrate 60 mg tablet,extended release 24 hr 60 mg PO BID cp 04/16/22 [History Last Taken 04/16/22] tamsulosin 0.4 mg capsule 0.4 mg PO QHS prostate 04/16/22 [History Last Taken 04/16/22] hydralazine 50 mg tablet 50 mg PO TID #90 tabs 04/17/22 [Rx Last Taken Unknown] metoprolol tartrate 25 mg tablet 12.5 mg PO BID bp #1 TAB 04/17/22 [Rx Last Taken 04/16/22] Allergy/AdvReac Type Severity Reaction Status Date / Time Penicillins [PCN] Allergy Unknown Verified 04/16/22 12:30 morphine AdvReac Mild confusion Verified 04/16/22 12:30 Family History Mother Diabetes Parkinson disease Grandmother Cancer Surgical History Amputated toe of left foot (08/2018) H/O coronary artery bypass surgery (06/12/18) H/O eye surgery History of left heart catheterization (05/20/18) Hx of cholecystectomy S/P meniscectomy Social History household members: spouse Smoking Status: Never smoker alcohol intake: current alcohol intake frequency: a few times a week substance use type: does not use caffeine: No ROS Constitutional Constitutional: Reports as per HPI Eyes Eyes: Reports as per HPI ENT HEENT: Reports as per HPI Cardiovascular Cardiovascular: Reports syncope Respiratory/Chest Respiratory/Chest: Reports as per HPI Gastrointestinal Gastrointestinal: Reports as per HPI Genitourinary Genitourinary: Reports as per HPI Musculoskeletal Musculoskeletal: Reports as per HPI Integumentary Integumentary: Reports as per HPI Neurologic Neurologic: Reports syncope Physical Exam Const alert, oriented x3 and no apparent distress Orientation / Consciousness: awake HEENT normocephalic, head/scalp atraumatic and hearing grossly normal bilaterally Eyes PERRL, EOMs intact bilaterally, conjunctivae normal and no scleral icterus Neck full ROM, supple and no JVD Carotids: normal carotid upstroke Chest Chest: midline sternotomy incision Resp normal respiratory effort and clear to auscultation bilaterally Cardio regular rhythm, S1 normal heart sound and S2 normal heart sound Rate: bradycardia GI normal to inspection, nondistended, normoactive bowel sounds Extremity Extremity Narrative: Left lower extremity: Positive boot in place Skin no rashes or lesions noted Psych mental status grossly normal Risk Stratification Risk Stratification Applicable: Yes Age >/= 65: No >/= 3 CAD Risk Factors (HTN, HLD, DM, family hx of CAD, or current smoker): Yes Aspirin Use in the Past 7 Days: Yes Severe Angina (>/= episodes in 24 hours): No EKG ST Changes >/= 0.5mm: No Positive Cardiac Marker: No ELYSIA Risk Stratification Score: 2 ELYSIA % Risk: 8% Risk Procedure Criteria Type of Procedure Procedure Type: Elective Elective Risks - COVID COVID Risk Discussion: The surgeon/proceduralist and patient have discussed in detail the risk of exposure to and/or potential harm posed by the COVID-19 virus with having a surgery/procedure at this time versus the risk of delaying the surgery/procedure. It is not possible to know either the risk of delaying the surgery or procedure or chance of getting an infection with perfect accuracy, but a joint decision was made between the patient and the surgeon/proceduralist to proceed at this time with the scheduled surgery/procedure as indicated on the consent form. Objective Data Vital Signs: Vital Signs Temp Pulse Resp BP Pulse Ox O2 Del Method 98.6 F 62 18 159/73 H 97 Room Air 04/17/22 14:26 04/17/22 14:26 04/17/22 14:26 04/17/22 14:04/17/22 14:04/17/22 14:26 Oxygen Delivery Method Room Air Weight: 168 lb 3.192 oz Body Mass Index (BMI) 25.5 Intake & Output: Intake and Output for Last 24 Hours 04/15/22 04/16/22 04/17/22 23:59 23:59 23:59 Intake Total 500 / 500 796.25 / 796.25 Output Total 400 / 400 200 / 200 Balance 100 / 100 596.25 / 596.25 Lab / Micro Data Result Diagrams: 04/17/22 05:20 04/17/22 05:20 Labs: Laboratory Results - last 24 hr 04/16/22 20:13: Troponin I High Sens 24 04/17/22 05:20: WBC 5.6, RBC 3.17 L, Hgb 10.2 L, Hct 31.2 L, MCV 98.4 H, MCH 32.2 H, MCHC 32.7, RDW Std Deviation 43.9, RDW Coeff of Dipti 12.0, Plt Count 200, MPV 10.2, Immature Gran % (Auto) 2.000 H, Neut % (Auto) 67.3, Lymph % (Auto) 11.2 L, Patrick % (Auto) 11.7 H, Eos % (Auto) 7.1 H, Baso % (Auto) 0.7, Absolute Neuts (auto) 3.8, Absolute Lymphs (auto) 0.63 L, Nucleated RBC % 0 04/17/22 05:20: Sodium 137, Potassium 3.9, Chloride 102, Carbon Dioxide 28.0, Anion Gap 7, BUN 31 H, Creatinine 1.42 H, Estim Creat Clear Calc 51.51, Est GFR (MDRD) Af Amer 65, Est GFR (MDRD) Non-Af 53 L, BUN/Creatinine Ratio 21.8 H, Glucose 85, Calcium 8.7, Phosphorus 3.9, Magnesium 1.7, Total Bilirubin 0.30, AST 20, ALT 22, Alkaline Phosphatase 115, Total Protein 6.4, Albumin 2.8 L, Globulin 3.6, Albumin/Globulin Ratio 0.8 L, TSH 0.88 04/17/22 05:20: Total Creatine Kinase 78 Cardiology Labs/Tests 04/17/22 05:20: WBC 5.6, RBC 3.17 L, Hgb 10.2 L, Hct 31.2 L, MCV 98.4 H, MCH 32.2 H, MCHC 32.7, Plt Count 200, MPV 10.2, Immature Gran % (Auto) 2.000 H, Neut % (Auto) 67.3, Lymph % (Auto) 11.2 L, Patrick % (Auto) 11.7 H, Eos % (Auto) 7.1 H, Baso % (Auto) 0.7, Absolute Neuts (auto) 3.8, Nucleated RBC % 0 04/17/22 05:20: Sodium 137, Potassium 3.9, Chloride 102, Carbon Dioxide 28.0, Anion Gap 7, BUN 31 H, Creatinine 1.42 H, Est GFR (MDRD) Af Amer 65, Est GFR (MDRD) Non-Af 53 L, BUN/Creatinine Ratio 21.8 H, Glucose 85, Calcium 8.7, Phosphorus 3.9, Magnesium 1.7, Total Bilirubin 0.30 Rhythm: Sinus rhythm/sinus bradycardia EKG: As noted above ECHO: See below Stress Test: 05-20-2018 Stress Test Report Exercise myocardial perfusion stress test. 57-year-old man with a history of chest pain and coronary calcification. Stress protocol: Resting EKG demonstrates normal sinus rhythm with a first-degree AV block a rate of 91 bpm is noted.? The patient exercised according to the regular [place] protocol for total duration of 4 minutes and 35 seconds.? The patient maintained sinus rhythm with a first-degree AV block.? There were occasional blocked PACs noted.? There was also occasional Wenckebach periodicity noted.? At rest there were no ST or T wave changes noted suggest ischemia at peak exercise upsloping ST changes only were noted with normally the criteria for ischemia.? The maximum heart rate was 144 bpm which was 89% of maximum predicted heart rate the maximum workload was 6.5 metabolic equivalents.? No clinical angina was noted the test was terminated due to leg fatigue. Myocardial perfusion protocol. 14.8 mCi of technetium 99m sestamibi was injected at rest.? Patient exercised according to regular [place] protocol for 4 minutes and 35 seconds.? At peak exercise 44.4 mg of technetium 99m sestamibi was injected.? Stress and rest images were reconstructed and compared in the short axis vertical long horizontal long axis.? Gated images were also obtained per Perfusion SPECT analysis: Review of the stress images demonstrate a small to medium sized focal area of apical defect noted on the stress images with near complete reversibility noted on the resting images.? The above is likely secondary to apical ischemia p resent.? No previous infarct is noted. Gated SPECT analysis: The gated ejection fraction is noted to be normal. Conclusion: Abnormal myocardial perfusion stress test with small to medium apical ischemia noted no clinical angina noted. Preserved ejection fraction Cardiac Cath: 05-20-2018 CONCLUSIONS Severe multi-vessel CAD 90% ostial D1 80% Prox OM1 70-80% distal RCA RECOMMENDATIONS CABG DESCRIPTION OF? PROCEDURE The patient arrived to the procedure lab. The risks and benefits of the procedure as well as a full description of our services here and current unavailability of surgical backup were fully explained to the patient and/or their significant other prior to the catheterization. The Timeout was completed, verifying the correct patient and procedure. The patient's procedural site was prepped and draped in the usual fashion. Local anesthetic was given subcutaneously to right radial region with Lidocaine 2%. Using a modified Seldinger technique, arterial access was obtained via the right radial artery, a 6Fr sheath was inserted.? Right Coronary Artery selective angiography was then performed in multiple views using a 5 Fr. 4.0 [place] catheter. Left Coronary Artery selective angiography was performed in multiple views using a 5 Fr. 4.0 [place] catheter.The arterial sheath was pulled and a TR Band was applied for hemostasis w/ 15ml air CORONARY ANGIOGRAPHY DOMINANCE:? Right Dominant LEFT HEART ASSESSMENT Left Ventricular Ejection Fraction: Not assessed LEFT MAIN: 30% distal LEFT ANTERIOR DECENDING ARTERY: Calcified. 80% Proximal. 100% Mid. 90% ostial D1. LAD filling retrogradely from Right system CIRCUMFLEX ARTERY: 80% Prox OM1 RIGHT CORONARY ARTERY: 30% Mid. 80% distal COLLATERAL FLOW: Collateral flow from Right to Left COMPLICATIONS No Complications CT Surgery: 06-12-2018: [facility] WALL to the LAD Free MAIK to the OM, SVG to the PDA Radiography Diagnostic Testing: Radiology Impression Echocardiogram 04/16/22 17:28 Interpretation Summary The study was technically difficult. Left ventricular systolic function is normal. The estimated ejection fraction is 65 %. Mild concentric left ventricular hypertrophy. The left atrium is mildly enlarged. There is moderate mitral annular calcification. Extension of the mitral annular calcification onto the posterior mitral valve leaflet. Mild focal mitral valve calcification of the anterior leaflet. The mitral papillary muscle appears thickened and/or calcified. Trivial mitral valve insufficiency. Trivial tricuspid valve insufficiency. Mild focal aortic valve calcification. Calcified aortic root. Unable to estimate RV systolic pressure/pulmonary artery pressure due to technically difficult study. Diastolic function is indeterminate. Ordering Physician: Suki Dasilva Referring Physician: Delgado Smith Performed By: Lidia Alejo, DEJON, RVT
--- NOTE | 2022-04-17 17:30 | DCINST_ITS ---
Discharge Instructions Diet Discharge Diet: - (resume previous diet) Activity Discharge Activity: Return to Normal Activity and [address] Weight Bearing Status: Full weight bearing Follow Up Care Test Results: Test results from this visit will be discussed in further detail at your follow- up appointment, if applicable. Discharge Plan Admission Admit Date/Time: 04/16/22 15:57 Primary Reason for Your Visit: syncope Attending Provider: Carrillo Caal Primary Care Provider: Delgado Smith Consulting Providers: Suki Dasilva ; Gavin Villasenor Instructions Additional Instructions / Restrictions: Get your 30 day monitor ordered through Dr. Villasenor's office-take the prescription there this week Discharge Orders/Prescriptions Prescriptions: New hydralazine 50 mg Tablet 50 mg PO TID Qty: 90 0RF Continued nitroglycerin 0.4 mg tablet, sublingual 0.4 mg sublingual Q5M PRN (Reason: Cardiac/Chest Pain) Qty: 25 6RF cholecalciferol (vitamin D3) 125 mcg (5,000 unit) capsule 125 mcg PO ROGERS cephalexin 500 mg capsule 500 mg PO TID lisinopril 20 mg tablet 40 mg PO BID (DME) lancets Misc See Rx Instructions .ROUTE .MEDSUPPLY Qty: 100 Rx Instructions: As directed (DME) blood ketone glucose monitor Device See Rx Instructions .ROUTE .MEDSUPPLY Qty: 1 Rx Instructions: As directed Tylenol Extra Strength 500 mg powder in packet 500 mg PO Q6H PRN (Reason: Pain) Mag 64 64 mg tablet,delayed release (DR/EC) 64 mg PO 2XW temazepam 15 mg capsule 15 mg PO QHS PRN (Reason: Insomnia) allopurinol 100 mg tablet 100 mg PO DAILY famotidine 40 mg tablet 40 mg PO DAILY Label Comments: TAKE 1 TABLET BY MOUTH EVERY DAY AT BEDTIME FOR 90 DAYS sodium chloride 1 gram tablet 1,000 mg PO QD-QID PRN (Reason: electrolyte replenishment) Qty: 30 3RF aspirin 81 MG tablet 81 mg PO DAILY clopidogrel 75 MG tablet 75 mg PO QHS gabapentin 100 mg capsule 200 mg PO TID ondansetron HCl 4 mg Tablet 4 mg PO Q6H PRN (Reason: Nausea) sennosides-docusate sodium [Senexon-S] 8.6-50 mg tablet 1 tab PO BID methadone 5 mg tablet 5 mg PO QHS oxycodone 10 mg tablet 10 mg PO Q4H PRN (Reason: Pain) Keytruda 25 mg/mL solution 25 mg IV .UD furosemide 40 mg tablet 40 mg PO QHS isosorbide mononitrate 60 mg tablet extended release 24 hr 60 mg PO BID tamsulosin 0.4 mg capsule 0.4 mg PO QHS ferrous fumarate 324 mg (106 mg iron) tablet 324 mg PO BID atorvastatin 40 mg tablet 40 mg PO QHS Qty: 90 3RF Label Comments: have not been taking since 04/10--was told not to for 10 day since getting the covid vaccination Changed metoprolol tartrate 25 mg tablet 12.5 mg PO BID Qty: 1 0RF Discontinued amlodipine 5 mg tablet 5 mg PO DAILY Label Comments: TAKE 1 TABLET BY MOUTH EVERY DAY IN THE EVENING Referrals / Follow Up: Delgado Smith DO [Primary Care Provider] - Within 2 Weeks Disposition Disposition (needs filled in before D/C Order can be placed): Home, Self Care
--- NOTE | 2022-04-17 17:35 | CASEMGMT ---
LLOYD GAO NOTE: [facility] form explained re: Observation status for treatment of syncope. Explained hospitalization will be paid per his insurance policy for Outpatient billing and condition will continue to be evaluated for Inpt necessity. Also let pt and know that [facility] sends paper in the billing packet with their phone number if questions arise. Discussed Pharmacy section of [facility] form and self administered medication guideline. Pt verbalizes understanding and does not have further questions. Form signed, copy made and placed in chart, and original given to pt. Cindi HAM RN CM
--- NOTE | 2022-04-17 17:48 | PCM.DC.SUM ---
Providers Date of Admission: 04/16/22 Date of Discharge: 04/17/22 Primary Care Physician: Dr. Delgado Smith DO Consultations 04/17/22 16:12 Consult: Cardiology Routine Consulting Provider: Gavin Villasenor Reason for Consult: syncope EMERGENT Consult: No MD Notified: Yes Date Notified: 04/17/22 Time Notified: 16:12 Method of Notification: Verbal Method of Consult:: In-Person Reason For Visit: SYNCOPE Diagnosis Discharge Diagnosis (1) Syncope: Status: Acute Code(s): R55 - Syncope and collapse (2) Atherosclerosis of coronary artery without angina pectoris: Status: Chronic Code(s): I25.10 - 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of [place] coronary artery without angina pectoris Qualifiers: Coronary Disease-Associated Artery/Lesion type: [place] artery [place] vs. transplanted heart: [place] heart Qualified Code(s): I25.10 - 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of [place] coronary artery without angina pectoris (3) H/O coronary artery bypass surgery: Status: Chronic Code(s): Z95.1 - Presence of aortocoronary bypass graft (4) Chronic diastolic (congestive) heart failure: Status: Chronic Code(s): I50.32 - Chronic diastolic (congestive) heart failure (5) HLD (hyperlipidemia): Status: Chronic Code(s): E78.5 - Hyperlipidemia, unspecified Qualifiers: Hyperlipidemia type: unspecified Qualified Code(s): E78.5 - Hyperlipidemia, unspecified (6) Essential hypertension: Status: Chronic Code(s): I10 - Essential (primary) hypertension (7) Bradycardia: Status: Acute Code(s): R00.1 - Bradycardia, unspecified (8) 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 Syncope-etiology unclear #2 dehydration #3 type 2 diabetes #4 uncontrolled hypertension Acute kidney injury was ruled out Medications at Discharge Home Medications aspirin 81 mg tablet,delayed release 81 mg PO DAILY heart [facility] 09/09/18 nitroglycerin 0.4 mg sublingual tablet 0.4 mg sublingual Q5M PRN Cardiac/Chest Pain #25 tabs 10/17/18 clopidogrel 75 mg tablet 75 mg PO QHS ANTIPLATELET 08/08/19 cholecalciferol (vitamin D3) 125 mcg (5,000 unit) capsule 125 mcg PO ROGERS SUPPLEMENT 01/04/21 atorvastatin 40 mg tablet 40 mg PO QHS cholesterol #90 tabs 01/18/21 methadone 5 mg tablet 5 mg PO QHS PAIN 05/10/21 ondansetron HCl 4 mg tablet 4 mg PO Q6H PRN Nausea 05/10/21 sennosides 8.6 mg-docusate sodium 50 mg tablet (Senexon-S) 1 tab 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 05/10/21 acetaminophen 500 mg oral powder packet (Tylenol Extra Strength) 500 mg PO Q6H PRN Pain 06/06/21 blood ketone glucose monitor #1 ea 06/06/21 lancets #100 ea 06/06/21 lisinopril 20 mg tablet 40 mg PO BID bp 06/13/21 allopurinol 100 mg tablet 100 mg PO DAILY gout 09/06/21 famotidine 40 mg tablet 40 mg PO DAILY GERD 09/13/21 gabapentin 100 mg capsule 200 mg PO TID NEUROPATHY 09/13/21 magnesium chloride 64 mg (magnesium chloride) tablet,delayed release (Mag 64) 64 mg PO 2XW supplement 09/13/21 oxycodone 10 mg tablet 10 mg PO Q4H PRN Pain 09/13/21 pembrolizumab 25 mg/mL intravenous solution (Keytruda) 25 mg IV .UD CANCER 09/13/21 temazepam 15 mg capsule 15 mg PO QHS PRN Insomnia 09/13/21 cephalexin 500 mg capsule 500 mg PO TID infection 10/26/21 sodium chloride 1 gram tablet 1,000 mg PO QD-QID PRN electrolyte replenishment #30 tabs 01/31/22 ferrous fumarate 324 mg (106 mg iron) tablet 324 mg PO BID supplement 04/16/22 furosemide 40 mg tablet 40 mg PO QHS water 04/16/22 isosorbide mononitrate 60 mg tablet,extended release 24 hr 60 mg PO BID cp 04/16/22 tamsulosin 0.4 mg capsule 0.4 mg PO QHS prostate 04/16/22 hydralazine 50 mg tablet 50 mg PO TID #90 tabs 04/17/22 metoprolol tartrate 25 mg tablet 12.5 mg PO BID bp #1 TAB 04/17/22 Hospital Course Procedures 2-D Echocardiogram Summary of Care Provided Minutes Spent on Discharge: 31 Hospital Course: This 61-year-old white male was seen in the emergency room at [facility] after having a syncopal episode at home which was brief. Work-up in the emergency room including EKGs, chest x-ray, and cardiac enzymes were unremarkable. Patient was noticed to have a sinus bradycardia. Patient was placed in observation status on MedSurg 2, he was monitored on telemetry and underwent an echocardiogram which showed a normal ejection fraction. Due to concerns of possible cardiac disease as the patient had a past history of coronary artery disease, he was seen in consultation by cardiology who discussed a plan of medical care which would include a stress test. Patient opted not to proceed in this manner however and wanted to be discharged home, he understood the ramifications of not undergoing a stress test but did not want to undergo a stress test. On 04/17/2022, patient was seen and examined: On examination he appeared in good health and spirits. Vital signs as documented. Skin warm and dry and without overt rashes. Neck without JVD, neck was supple, trachea midline, thyroid was normal. Lungs clear bilaterally, normal air movement was noted. Heart exam notable for regular rhythm, normal sounds and absence of murmurs, rubs or gallops. Abdomen unremarkable and without evidence of organomegaly, masses, or abdominal aortic enlargement. Bowel sounds are present, abdomen is not distended. Extremities nonedematous, no cyanosis was noted, no clubbing was noted. Neuro: Cranial nerves II through XII are grossly intact, no focal motor deficits were noted, sensation to light touch and pinprick intact, motor exam 5/5 throughout. Psych: Patient is alert and oriented x3, he does not appear anxious or depressed, he does not appear agitated. Patient was discharged home in stable condition, his blood pressure medication was increased due to hypertension during his hospitalization, his rate limiting medications were also reduced at the direction of cardiology. Patient was in stable condition and discharged home on 04/17/2022. Weight / BMI Weight Weight: 76.294 kg Body Mass Index (BMI) 25.5 ABG / Lab / Microbiology Data Result Diagrams: 04/17/22 05:20 04/17/22 05:20 Laboratory: Laboratory Results - last 24 hr 04/16/22 20:13: Troponin I High Sens 24 04/17/22 05:20: WBC 5.6, RBC 3.17 L, Hgb 10.2 L, Hct 31.2 L, MCV 98.4 H, MCH 32.2 H, MCHC 32.7, RDW Std Deviation 43.9, RDW Coeff of Dipti 12.0, Plt Count 200, MPV 10.2, Immature Gran % (Auto) 2.000 H, Neut % (Auto) 67.3, Lymph % (Auto) 11.2 L, Hughes % (Auto) 11.7 H, Eos % (Auto) 7.1 H, Baso % (Auto) 0.7, Absolute Neuts (auto) 3.8, Absolute Lymphs (auto) 0.63 L, Nucleated RBC % 0 04/17/22 05:20: Sodium 137, Potassium 3.9, Chloride 102, Carbon Dioxide 28.0, Anion Gap 7, BUN 31 H, Creatinine 1.42 H, Estim Creat Clear Calc 51.51, Est GFR (MDRD) Af Amer 65, Est GFR (MDRD) Non-Af 53 L, BUN/Creatinine Ratio 21.8 H, Glucose 85, Calcium 8.7, Phosphorus 3.9, Magnesium 1.7, Total Bilirubin 0.30, AST 20, ALT 22, Alkaline Phosphatase 115, Total Protein 6.4, Albumin 2.8 L, Globulin 3.6, Albumin/Globulin Ratio 0.8 L, TSH 0.88 04/17/22 05:20: Total Creatine Kinase 78 Radiography Diagnostic Testing: Radiology Impression Echocardiogram 04/16/22 17:28 Interpretation Summary The study was technically difficult. Left ventricular systolic function is normal. The estimated ejection fraction is 65 %. Mild concentric left ventricular hypertrophy. The left atrium is mildly enlarged. There is moderate mitral annular calcification. Extension of the mitral annular calcification onto the posterior mitral valve leaflet. Mild focal mitral valve calcification of the anterior leaflet. The mitral papillary muscle appears thickened and/or calcified. Trivial mitral valve insufficiency. Trivial tricuspid valve insufficiency. Mild focal aortic valve calcification. Calcified aortic root. Unable to estimate RV systolic pressure/pulmonary artery pressure due to technically difficult study. Diastolic function is indeterminate. Ordering Physician: Suki Dasilva Referring Physician: Delgado Smith Performed By: Lidia Alejo RDCS, RVT D/C Instructions Discharge Diet: - (resume previous diet) Weight Bearing Status: Full weight bearing Meaningful Use Info Meaningful Use Diagnoses (Choose all that apply): None applicable Discharge Plan Admission Admit Date/Time: 04/16/22 15:57 Primary Reason for Your Visit: syncope Attending Provider: Carrillo Caal Primary Care Provider: Delgado Smith Consulting Providers: Suki Dasilva ; Gavin Villasenor Instructions Additional Instructions / Restrictions: Get your 30 day monitor ordered through Dr. Villasenor's office-take the prescription there this week Discharge Orders/Prescriptions Prescriptions: New hydralazine 50 mg Tablet 50 mg PO TID Qty: 90 0RF Continued nitroglycerin 0.4 mg tablet, sublingual 0.4 mg sublingual Q5M PRN (Reason: Cardiac/Chest Pain) Qty: 25 6RF cholecalciferol (vitamin D3) 125 mcg (5,000 unit) capsule 125 mcg PO ROGERS cephalexin 500 mg capsule 500 mg PO TID lisinopril 20 mg tablet 40 mg PO BID (DME) lancets Misc See Rx Instructions .ROUTE .MEDSUPPLY Qty: 100 Rx Instructions: As directed (DME) blood ketone glucose monitor Device See Rx Instructions .ROUTE .MEDSUPPLY Qty: 1 Rx Instructions: As directed Tylenol Extra Strength 500 mg powder in packet 500 mg PO Q6H PRN (Reason: Pain) Mag 64 64 mg tablet,delayed release (DR/EC) 64 mg PO 2XW temazepam 15 mg capsule 15 mg PO QHS PRN (Reason: Insomnia) allopurinol 100 mg tablet 100 mg PO DAILY famotidine 40 mg tablet 40 mg PO DAILY Label Comments: TAKE 1 TABLET BY MOUTH EVERY DAY AT BEDTIME FOR 90 DAYS sodium chloride 1 gram tablet 1,000 mg PO QD-QID PRN (Reason: electrolyte replenishment) Qty: 30 3RF aspirin 81 MG tablet 81 mg PO DAILY clopidogrel 75 MG tablet 75 mg PO QHS gabapentin 100 mg capsule 200 mg PO TID ondansetron HCl 4 mg Tablet 4 mg PO Q6H PRN (Reason: Nausea) sennosides-docusate sodium [Senexon-S] 8.6-50 mg tablet 1 tab PO BID methadone 5 mg tablet 5 mg PO QHS oxycodone 10 mg tablet 10 mg PO Q4H PRN (Reason: Pain) Keytruda 25 mg/mL solution 25 mg IV .UD furosemide 40 mg tablet 40 mg PO QHS isosorbide mononitrate 60 mg tablet extended release 24 hr 60 mg PO BID tamsulosin 0.4 mg capsule 0.4 mg PO QHS ferrous fumarate 324 mg (106 mg iron) tablet 324 mg PO BID atorvastatin 40 mg tablet 40 mg PO QHS Qty: 90 3RF Label Comments: have not been taking since 04/10--was told not to for 10 day since getting the covid vaccination Changed metoprolol tartrate 25 mg tablet 12.5 mg PO BID Qty: 1 0RF Discontinued amlodipine 5 mg tablet 5 mg PO DAILY Label Comments: TAKE 1 TABLET BY MOUTH EVERY DAY IN THE EVENING Referrals / Follow Up: Delgado Smith DO [Primary Care Provider] - Within 2 Weeks Disposition Disposition (needs filled in before D/C Order can be placed): Home, Self Care Charges/Coding Visit Charges Inpatient E&M: 61250 Disch Hosp >30min
== END 2022-04-17 19:01 | disposition home or self-care (01) ==
LOC: ED 15:13 → MS2 16:56
PROVIDERS: Internal Medicine; Admitting Provider Internal Medicine; Emergency Provider Student in an Organized Health Care Education/Training Program; PCP Family Medicine; Visit Provider Internal Medicine
DX: R55 Syncope and collapse (principal); C79.51 Secondary malignant neoplasm of bone; E11.51 Type 2 diabetes mellitus with diabetic peripheral angiopathy without gangrene; R09.2 Respiratory arrest; I11.0 Hypertensive heart disease with heart failure; I50.32 Chronic diastolic (congestive) heart failure; E11.40 Type 2 diabetes mellitus with diabetic neuropathy, unspecified; C80.1 Malignant (primary) neoplasm, unspecified; R00.1 Bradycardia, unspecified; Z79.891 Long term (current) use of opiate analgesic; D50.9 Iron deficiency anemia, unspecified; G89.29 Other chronic pain; I25.10 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of native coronary artery without angina pectoris; Z79.02 Long term (current) use of antithrombotics/antiplatelets; Z79.82 Long term (current) use of aspirin; E78.5 Hyperlipidemia, unspecified; E87.1 Hypo-osmolality and hyponatremia; E86.0 Dehydration; Z79.899 Other long term (current) drug therapy; M54.2 Cervicalgia
CPT/HCPCS: 36415; 70450; 71045; 71275; 72125; 80053; 80307; 82077; 82550; 83735; 83880; 84100; 84443; 84484; 85025; 93005; 93306; 96361; 96372; 96374; 97802; 99221; 99285; J7040; J7120; Q9967; A4216; G0378

== ENCOUNTER → 2022-05-11 | Outpatient (CLI) | payer MEDICARE, SELFPAY ==
--- NOTE | 2022-05-11 18:58 | STRESSREP ---
Stress Test Report Pharmacologic myocardial perfusion stress test. 61-year-old man with a history of wide-complex tachycardia Resting EKG demonstrates sinus bradycardia with a rate of 45 bpm. Resting blood pressure is 128/74 mmHg. 0.4 mg of regadenoson was infused per usual protocol followed by rapid intravenous saline flush injection. Continuous EKG monitoring was performed. The maximum heart rate was 60 bpm which was 38% of max impacted heart rate the maximum workload was 1 metabolic equivalent. At rest there were no ST or T wave changes noted to suggest ischemia and at peak infusion nonspecific ST changes were noted which did not meet the criteria for ischemia. No clinical angina is noted. The final blood pressure was 122/70 mmHg. Myocardial perfusion protocol. 14.6 mCi of technetium 99m sestamibi was injected at rest. 0.4 mg of regadenoson was infused per usual protocol. At peak infusion 44.5 mCi of technetium 99m sestamibi was injected stress images were obtained stress and rest images were reconstructed and compared in the short axis vertical long and horizontal long axis. Gated images were also obtained. Perfusion SPECT analysis: Review of the stress images demonstrate normal uptake of tracer noted in all areas of the myocardium. The resting images similar demonstrated normal uptake of tracer noted in all areas of the myocardium. No areas of reversibility are noted to suggest ischemia and no previous infarct is noted. Gated SPECT analysis: The gated ejection fraction is 63%. Conclusion: Normal pharmacologic myocardial perfusion stress test. Preserved ejection fraction.
== END | disposition home or self-care (01) ==
LOC: CVS 06:22
PROVIDERS: PCP Family Medicine; Visit Provider Nurse Practitioner Gerontology
DX: I47.20 Ventricular tachycardia, unspecified (principal); Z95.1 Presence of aortocoronary bypass graft
CPT/HCPCS: 78452; 93017; A9500; A4216; J2785

== ENCOUNTER → 2022-05-24 | Outpatient (CLI) | payer MEDICARE, SELFPAY | END | disposition home or self-care (01) | PROVIDERS: PCP Family Medicine; Visit Provider Podiatrist | DX: Z00.01 Encounter for general adult medical examination with abnormal findings (principal) | CPT/HCPCS: 87070; 87077; 87186; 87205 ==

== ENCOUNTER 2022-06-14 10:33 | Inpatient (IN) | payer MEDICARE, MEDICAID, SELFPAY ==
[2022-06-14] VITALS (14 sets, daily range): BP systolic 111–170; BP diastolic 70–83; PULSE 68–94; RESP 14–18; TEMP 37.1–39.4; O2SAT 95–98; BMI 25.9; BMI 24.4
--- NOTE | 2022-06-14 11:08 | EKG12_ITS ---
Test Reason : GENERAL Blood Pressure : / mmHG Vent. Rate : 086 BPM Atrial Rate : 086 BPM P-R Int : 158 ms QRS Dur : 082 ms QT Int : 384 ms P-R-T Axes : 037 065 029 degrees QTc Int : 459 ms Normal sinus rhythm Nonspecific ST and T wave abnormality Confirmed by THALIA GILLILAND, GUSTAVO ([id number]), technical writer and editor GALINDO BECKFORD ([id number]) on 06/18/2022 11:03:05 AM Referred By: Confirmed By:GUSTAVO VÁSQUEZ MD
[2022-06-14] MEDS: 0.9% Normal Saline 1,000 ML 999 ML IV (11:15)
--- NOTE | 2022-06-14 11:16 | EDS_ITS ---
HPI History of Present Illness Chief Complaint: General Illness Informant: patient and spouse/S.O. Onset/Context/Timing Onset: Days (3) Context: Gradual Onset Timing: Continuous Narrative Narrative: Patient with fevers, cough for the last 3 days, couple episodes of diarrhea over that time, nausea and some vomiting today. Very poor appetite with poor p.o. food and fluid intake over the last 3 days, with associated decreased urine output, and when he does urinate it is dark. He has felt a little short of breath today. Feels like he has some chest congestion but no chest pain or abdominal pain. No known sick contacts. Presents by EMS because he was unable to get up on his own today due to being very weak and having a high fever of 102. He states 3 to 4 days ago he had a routine appointment/follow-up with cardiology, does not remember feeling sick then. He has a history of stents and a CABG, he is on aspirin and clopidogrel. No bleeding from anywhere recently. No leg pain or swelling. No recent travel out of the area. [facility] Medical History Abdominal pain RAFA (acute kidney injury) Alcohol abuse Anemia Atherosclerosis of coronary artery without angina pectoris 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[place] coronary artery w/angina pectoris Bacteremia Bone cancer Bradycardia Cataracts, both eyes Charcot's joint, left ankle and foot Chronic diastolic (congestive) heart failure Chronic pain Diabetes mellitus, type II Diabetic retinopathy Diastolic dysfunction with acute on chronic heart failure Essential hypertension GERD (gastroesophageal reflux disease) Hammer toe of left foot HLD (hyperlipidemia) Hyponatremia Infection of left foot Iron deficiency anemia 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 MSSA bacteremia Nephrotic syndrome Neuropathy Non-smoker Normocytic anemia Obesity (BMI 30.0-34.9) Osteomyelitis PAD (peripheral artery disease) Postoperative atrial fibrillation (06/12/18) 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) Secondary pulmonary arterial hypertension Sinus bradycardia Syncope Type 2 diabetes mellitus Ulcer of left foot Home Medications aspirin 81 mg tablet,delayed release 81 mg PO DAILY heart health 09/09/18 [History Last Taken 06/13/22] nitroglycerin 0.4 mg sublingual tablet 0.4 mg sublingual Q5M PRN Cardiac/Chest Pain #25 tabs 10/17/18 [Rx Last Taken 08/08/19] clopidogrel 75 mg tablet 75 mg PO QHS ANTIPLATELET 08/08/19 [History Last Taken 06/13/22] atorvastatin 40 mg tablet 40 mg PO QHS cholesterol #90 tabs 01/18/21 [Rx Last Taken 06/13/22] methadone 5 mg tablet 5 mg PO QHS PAIN 05/10/21 [History Last Taken 06/13/22] ondansetron HCl 4 mg tablet 4 mg PO Q6H PRN Nausea 05/10/21 [History Last Taken 05/10/21] sennosides 8.6 mg-docusate sodium 50 mg tablet (Senexon-S) 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 05/10/21 [History Last Taken 06/13/22] blood ketone glucose monitor #1 ea 06/06/21 [History Last Taken Unknown] lancets #100 ea 06/06/21 [History Last Taken Unknown] lisinopril 20 mg tablet 20 mg PO BID bp 06/13/21 [History Last Taken 06/13/22] allopurinol 100 mg tablet 100 mg PO DAILY gout 09/06/21 [History Last Taken 06/13/22] famotidine 40 mg tablet 40 mg PO DAILY GERD 09/13/21 [History Last Taken 06/13/22] gabapentin 100 mg capsule 200 mg PO TID NEUROPATHY 09/13/21 [History Last Taken 06/13/22] oxycodone 10 mg tablet 10 mg PO Q4H PRN Pain 09/13/21 [History Last Taken 06/14/22 06:00] pembrolizumab 25 mg/mL intravenous solution (Keytruda) 25 mg IV .UD CANCER 09/13/21 [History Last Taken 06/06/22] temazepam 15 mg capsule 15 mg PO QHS PRN Insomnia 09/13/21 [History Last Taken 06/13/22] ferrous fumarate 324 mg (106 mg iron) tablet (Ferrocite) 324 mg PO BID supplement 04/16/22 [History Last Taken 06/13/22] isosorbide mononitrate 60 mg tablet,extended release 24 hr 60 mg PO BID cp 04/16/22 [History Last Taken 06/13/22] tamsulosin 0.4 mg capsule 0.4 mg PO QHS prostate 04/16/22 [History Last Taken 06/13/22] hydralazine 50 mg tablet 50 mg PO TID 90 days #270 tabs 04/23/22 [Rx Last Taken 06/13/22] cephalexin 500 mg capsule 500 mg PO TID infection 05/16/22 [History Last Taken 06/13/22] furosemide 40 mg tablet 40 mg PO QHS water #90 tabs 06/12/22 [Rx Last Taken 06/13/22] acetaminophen 500 mg tablet (Acetaminophen Extra Strength) 500 mg PO Q6H PRN Pain 06/14/22 [History Last Taken 06/13/22] ergocalciferol (vitamin D2) 1,250 mcg (50,000 unit) capsule 1,250 mcg PO SA SUPPLEMENT 06/14/22 [History Last Taken 06/09/22] metoprolol tartrate 25 mg tablet 25 mg PO BID bp 06/14/22 [History Last Taken 06/13/22] pantoprazole 40 mg tablet,delayed release 40 mg PO DAILY GERD 06/14/22 [History Last Taken 06/13/22] Allergy/AdvReac Type Severity Reaction Status Date / Time Penicillins [PCN] Allergy Unknown Verified 06/14/22 10:35 morphine AdvReac Mild confusion Verified 06/14/22 10:35 Family History Mother Diabetes Parkinson disease Grandmother Cancer Surgical History Amputated toe of left foot (08/2018) H/O coronary artery bypass surgery (06/12/18) H/O eye surgery History of left heart catheterization (05/20/18) Hx of cholecystectomy S/P meniscectomy Social History household members: spouse Smoking Status: Never smoker alcohol intake: current alcohol intake frequency: a few times a week substance use type: does not use caffeine: No ROS ROS ED Constitutional Constitutional ED: Reports anorexia, chills, fever(s), malaise and weakness Eyes Eyes: Denies change in vision or diplopia ENT ENT ED: Denies rhinorrhea or sore throat Cardiovascular Cardiovascular: Denies chest pain or palpitations Respiratory/Chest Respiratory/Chest: Reports chest congestion, cough and dyspnea Gastrointestinal Gastrointestinal: Reports diarrhea, nausea and vomiting; Denies abdominal pain Genitourinary Genitourinary ED: Denies dysuria or hematuria Musculoskeletal Musculoskeletal: Denies back pain or neck pain Integumentary Denies abscess or rash Neurologic Neurologic: Denies headache(s), paresthesias or weakness Psychiatric Psychiatric: Denies anxiety or suicidal thoughts EXAM Physical Exam Const Vital Signs: 06/14/22 10:35 06/14/22 10:51 06/14/22 11:11 Temperature 101.3 F H Temperature Source Oral Pulse Rate 94 Respiratory Rate 18 Respiratory Effort Normal Non-Labored Respiratory Pattern Normal Blood Pressure 136/73 H Blood Pressure Mean 94 Pulse Ox 95 Oxygen Delivery Method Room Air Room Air Oxygen Flow Rate (L/min) 06/14/22 11:56 06/14/22 11:59 Temperature 99.3 F H Temperature Source Temporal Pulse Rate 85 85 Respiratory Rate 18 18 Respiratory Effort Respiratory Pattern Blood Pressure 170/75 H 170/75 H Blood Pressure Mean 106 106 Pulse Ox 98 98 Oxygen Delivery Method Nasal Cannula Nasal Cannula Oxygen Flow Rate (L/min) 2 2 Positive well nourished and well developed General Appearance ED: well developed and NAD HEENT Reports moist mucous membranes normocephalic and atraumatic Eyes PERRL and EOMs intact bilaterally Neck full ROM and supple Chest Wall inspection of chest normal and palpation of chest normal Resp normal respiratory effort Resp Narrative: Few Rales and wheezes left base Effort and Inspection: able to speak in complete sentences Cardio regular rate, regular rhythm and no murmurs GI non-tender and non-distended Auscultation: normoactive bowel sounds Palpation: soft Back/Spine no CVA tenderness General Back: other FROM Extremity normal to inspection General Extremety ED: Negative for edema, pulses abnormal or tenderness General Extremity: Negative for edema or pulses abnormal Neuro oriented x3, CN's II-XII intact bilaterally and no sensory deficits noted Neuro Narrative: Symmetrically weak all 4 extremities, needs help to pull himself to a sitting position even while holding the rails. Sensorium / Orientation: awake and alert Motor Exam: general weakness Psych mental status grossly normal Skin no rashes or lesions noted and no wounds Sepsis Attestation Sepsis Alert: Yes Sepsis Attestation: Agree w/Sepsis Date exam was performed: 06/14/22 Time exam was performed: 12:00 Possible Source of Sepsis: Pulmonary Sepsis Organ Dysfunction Criteria Present: Creatinine > 2.0 mg/dL and Lactic Acid > 2 mmol/L Fluid Resuscitation Fluid Resuscitation ordered: Fluids not indicated MDM MDM MDM Narrative Medical decision making narrative: Patient has some sepsis criteria but no obvious infection. Chest x-ray shows no pneumonia, still awaiting urinalysis, my concern is that he is in acute renal failure. He states he has been drinking fluids very well for the past 3 days since he has been ill, just not eating food. Therefore my concern is that this is not necessarily just dehydration/prerenal. He has been given IV fluids here but he still has not urinated. He is breathing well. His temperature has come down. He appears well clinically. He has seen nephrology before, 4 or [address] [facility], but he states that that program assistant is no longer practicing and he has not seen anyone else since. We will discuss with hospitalist for admission. Discussed with Dr. Dasilva. She agrees with holding off on antibiotics since nothing seen objectively at this time and wit hout sepsis criteria being met. Lab Data Attestation: I reviewed the patient's lab results. Labs: Laboratory Results - last 24 hr 06/14/22 06/14/22 06/14/22 11:13 11:13 11:13 WBC 7.9 RBC 3.36 L Hgb 10.9 L Hct 33.0 L MCV 98.2 H MCH 32.4 H MCHC 33.0 RDW Std Deviation 46.2 H RDW Coeff of Dipti 12.9 Plt Count 142 L MPV 10.8 Immature Gran % (Auto) 0.900 Neut % (Auto) 83.4 H Lymph % (Auto) 4.3 L Cameron % (Auto) 11.3 H Eos % (Auto) 0.0 Baso % (Auto) 0.1 Absolute Neuts (auto) 6.6 Absolute Lymphs (auto) 0.34 L Nucleated RBC % 0 Differential Comment SCANNED PT 15.8 H INR 1.3 APTT 40.9 H Sodium 132 L Potassium 3.9 Chloride 94 L Carbon Dioxide 23.0 Anion Gap 15 BUN 55 H Creatinine 3.04 H Estim Creat Clear Calc 24.06 Est GFR (MDRD) Af Amer 27 L Est GFR (MDRD) Non-Af 22 L BUN/Creatinine Ratio 18.1 Glucose 114 H Lactic Acid Calcium 8.5 Total Bilirubin 0.60 AST 43 H ALT 28 Alkaline Phosphatase 106 Total Protein 7.7 Albumin 3.2 Globulin 4.5 H Albumin/Globulin Ratio 0.7 L 06/14/22 11:13 WBC RBC Hgb Hct MCV MCH MCHC RDW Std Deviation RDW Coeff of Dipti Plt Count MPV Immature Gran % (Auto) Neut % (Auto) Lymph % (Auto) [place] % (Auto) Eos % (Auto) Baso % (Auto) Absolute Neuts (auto) Absolute Lymphs (auto) Nucleated RBC % Differential Comment PT INR APTT Sodium Potassium Chloride Carbon Dioxide Anion Gap BUN Creatinine Estim Creat Clear Calc Est GFR (MDRD) Af Amer Est GFR (MDRD) Non-Af BUN/Creatinine Ratio Glucose Lactic Acid 2.5 H* Calcium Total Bilirubin AST ALT Alkaline Phosphatase Total Protein Albumin Globulin Albumin/Globulin Ratio Radiography Diagnostic Testing: Clinical Impression(s) from Imaging Studies Chest X-Ray 06/14/22 11:25 IMPRESSION: No acute abnormality is seen. Electronically Signed: Emir Kwan MD at 12:11 EST , Rhythm Strip Rhythm Strip: Sinus Rhythm Rate: 90 Ectopy: None EKG Initial EKG: Attestation: I personally reviewed and interpreted this EKG as follows: Interpretation: Sinus Rhythm and No Acute Injury Pattern (nml EKG) Discharge Plan Dx/Rx/DC Orders Clinical Impression: Acute renal failure (ARF), Generalized weakness, Acute bronchitis Disposition Disposition: Acute Care [facility]
[2022-06-14] MEDS: Acetaminophen 500 MG Tablet 1000 MG PO (11:20)
[2022-06-14 11:22] LABS: Absolute Lymphocyte Count 0.34 X10^3/uL (0.83-4.51); Absolute Neutrophil Count 6.6 X10^3/uL (2.0-7.7); Basophil# 0.01 X10^3/uL; Basophil% 0.1 % (0-1); Hemoglobin 10.9 g/dL (13.0-16.5); Lymphocyte # 0.34 X10^3/ul (0.83-4.51); Lymphocyte % 4.3 % (19-41); Mean Corpuscular Hgb 32.4 pg (27.0-32.0); Mean Corpuscular Volume 98.2 fL (80-94); Mean Platelet Vol. 10.8 fl (6.2-12.0); Monocyte% 11.3 % (0-10); NRBC Flagged by Analyzer 0 % (0-5); Neutrophil # 6.61 X10^3/uL (2.7-7.7); Neutrophil % 83.4 % (47-70); POSITIVE DIFFERENTIAL YES; Platelet Count 142 K/mm3 (150-450); RBC Distribution Width CV 12.9 % (11.6-14.6); RBC Distribution Width SD 46.2 fl (35.1-43.9); Red Blood Count 3.36 M/mm3 (4.6-6.2); White Blood Count 7.9 K/mm3 (4.4-11.0)
[2022-06-14 11:23] LABS: Differential Indicated SCAN CRITERIA MET
--- NOTE | 2022-06-14 11:25 | RAD_ITS ---
STUDY: X-RAY CHEST REASON FOR EXAM: Male, 61 years old. Cough sob fever TECHNIQUE: AP and lateral views of the chest. COMPARISON: Comparison is made with prior study dated April 16, 2022. FINDINGS: EKG lead and are seen. The lungs are clear and expanded. There is no demonstrated pleural abnormality. Sternal cerclage wires and vascular clips are present from a prior sternotomy and coronary artery bypass graft procedure (CABG). Normal mediastinum and sg. Normal visualized pulmonary arteries. There is atherosclerotic calcification of the aortic arch with tortuosity. Prior fusion and disc placement in the lower dorsal spine. There is degenerative osteoarthritis of the bilateral shoulders. There is no demonstrated abnormality of the visualized soft tissue structures of the upper abdomen. RAD/Chest PA and Lateral IMPRESSION: No acute abnormality is seen. Electronically Signed: Emir Kwan MD at 12:11 EST ,
[2022-06-14 11:29] LABS: Differential Comment SCANNED
[2022-06-14 11:31] LABS: International Normalized Ratio 1.3; Prothrombin Time (Protime)PT. 15.8 SECONDS (11.7-14.9)
[2022-06-14 11:33] LABS: Partial Thromboplast Time 40.9 Seconds (24.1-36.2)
[2022-06-14 11:37] LABS: ALB/GLOB Ratio 0.7 RATIO (0.9-2.4); AST(SGOT) 43 U/L (15-37); Alanine Aminotransfer ALT/SGPT 28 U/L (16-61); Albumin, Serum 3.2 g/dL (3.2-5.0); Alkaline Phosphatase 106 U/L (45-117); Anion Gap 15 (5-15); BUN 55 mg/dL (7-18); BUN/Creat Ratio 18.1 RATIO (10-20); Calcium,Total 8.5 mg/dL (8.5-10.1); Chloride 94 mmol/L (98-107); Creatinine, Serum 3.04 mg/dL (0.70-1.30); EST Glomerular Filtration Rate 22 mL/min (>60); Est Glom Filt Rate - Afr Amer 27 mL/min (>60); Estimated Creatinine Clearance 24.06 ml/min; Globulin 4.5 g/dL (2.2-4.2); Glucose 114 mg/dL (74-106); Potassium 3.9 mmol/L (3.5-5.1); Protein, Total 7.7 g/dL (6.4-8.2); Sodium Level 132 mmol/L (136-145)
[2022-06-14 11:39] LABS: Lactic Acid 2.5 mmol/L (0.4-1.9)
--- NOTE | 2022-06-14 13:49 | PCM.HP.STD ---
HPI - General General Date of Admission: 06/14/22 Date of Service: 06/14/22 Chief Complaint: Generalized weakness/poor appetite HPI Narrative CLAY RUBIO, is a 61 M who presented to the emergency department at [facility] on 06/14/2022 with a chief complaint of generalized weakness. The patient states that on Saturday he started having a cough with some mild sputum production, by Saturday he developed a fever of 102.9 max for about 48 hours (Tmax yesterday was 101.4), generalized weakness, nausea with 1 episode of emesis, diarrhea and decreased oral intake/appetite. He has no known sick contacts. His most recent hospitalization was early April 2022. He denies any significant chest pain but he does report of some wheezing that is audible when he breathes. He does not have a history of tobacco abuse. He states he has been taking his medication. He feels like he has been drinking plenty of water but his urine production has decreased. His reports that he was so weak today he was unable to ambulate independently and asked to come to the hospital. She stated she has been trying to get him to come to the emergency department over the last 2 days. Vital signs at time of presentation emergency department demonstrated temperature 101.3, heart rate 94, blood pressure is 136/73, respiratory to 18, sats were 95% on room air. CBC shows a normal white count at 7.9, hemoglobin was stable at 10.9, his platelet count is slightly down at 142,000, he has a left shift with an 83.4% neutrophilia. Coags show slight elevation with an INR of 1.3. His sodium slightly low 132 with a chloride of 94. His BUN is 55 with a serum creatinine of 3.04 (baseline serum creatinine is anywhere from a 1.0-1.4). When last checked on 06/06/2022 serum creatinine is 1.45. Serum glucose was 114. Lactic acid was 2.5. His AST was mildly elevated 4.3. Chest x-ray showed no acute abnormality. EKG showed normal sinus rhythm with a rate of 90 and normal intervals without any ST-T wave changes consistent with acute ischemia. The emergency department history of IV fluids, Zofran, and acetaminophen. Request for admission was made based on his decreased functional status and dehydration. [facility] Medical History Abdominal pain RAFA (acute kidney injury) Alcohol abuse Anemia Atherosclerosis of coronary artery without angina pectoris 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torres martinez coronary artery w/angina pectoris Bacteremia Bone cancer Bradycardia Cataracts, both eyes Charcot's joint, left ankle and foot Chronic diastolic (congestive) heart failure Chronic pain Diabetes mellitus, type II Diabetic retinopathy Diastolic dysfunction with acute on chronic heart failure Essential hypertension GERD (gastroesophageal reflux disease) Hammer toe of left foot HLD (hyperlipidemia) Hyponatremia Infection of left foot Iron deficiency anemia 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 MSSA bacteremia Nephrotic syndrome Neuropathy Non-smoker Normocytic anemia Obesity (BMI 30.0-34.9) Osteomyelitis PAD (peripheral artery disease) Postoperative atrial fibrillation (06/12/18) 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) Secondary pulmonary arterial hypertension Sinus bradycardia Syncope Type 2 diabetes mellitus Ulcer of left foot Home Medications aspirin 81 mg tablet,delayed release 81 mg PO DAILY heart health 09/09/18 [History Last Taken 06/13/22] nitroglycerin 0.4 mg sublingual tablet 0.4 mg sublingual Q5M PRN Cardiac/Chest Pain #25 tabs 10/17/18 [Rx Last Taken 08/08/19] clopidogrel 75 mg tablet 75 mg PO QHS ANTIPLATELET 08/08/19 [History Last Taken 06/13/22] atorvastatin 40 mg tablet 40 mg PO QHS cholesterol #90 tabs 01/18/21 [Rx Last Taken 06/13/22] methadone 5 mg tablet 5 mg PO QHS PAIN 05/10/21 [History Last Taken 06/13/22] ondansetron HCl 4 mg tablet 4 mg PO Q6H PRN Nausea 05/10/21 [History Last Taken 05/10/21] sennosides 8.6 mg-docusate sodium 50 mg tablet (Senexon-S) 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 05/10/21 [History Last Taken 06/13/22] blood ketone glucose monitor #1 ea 06/06/21 [History Last Taken Unknown] lancets #100 ea 06/06/21 [History Last Taken Unknown] lisinopril 20 mg tablet 20 mg PO BID bp 06/13/21 [History Last Taken 06/13/22] allopurinol 100 mg tablet 100 mg PO DAILY gout 09/06/21 [History Last Taken 06/13/22] famotidine 40 mg tablet 40 mg PO DAILY GERD 09/13/21 [History Last Taken 06/13/22] gabapentin 100 mg capsule 200 mg PO TID NEUROPATHY 09/13/21 [History Last Taken 06/13/22] oxycodone 10 mg tablet 10 mg PO Q4H PRN Pain 09/13/21 [History Last Taken 06/14/22 06:00] pembrolizumab 25 mg/mL intravenous solution (Keytruda) 25 mg IV .UD CANCER 09/13/21 [History Last Taken 06/06/22] temazepam 15 mg capsule 15 mg PO QHS PRN Insomnia 09/13/21 [History Last Taken 06/13/22] ferrous fumarate 324 mg (106 mg iron) tablet (Ferrocite) 324 mg PO BID supplement 04/16/22 [History Last Taken 06/13/22] isosorbide mononitrate 60 mg tablet,extended release 24 hr 60 mg PO BID cp 04/16/22 [History Last Taken 06/13/22] tamsulosin 0.4 mg capsule 0.4 mg PO QHS prostate 04/16/22 [History Last Taken 06/13/22] hydralazine 50 mg tablet 50 mg PO TID 90 days #270 tabs 04/23/22 [Rx Last Taken 06/13/22] cephalexin 500 mg capsule 500 mg PO TID infection 05/16/22 [History Last Taken 06/13/22] furosemide 40 mg tablet 40 mg PO QHS water #90 tabs 06/12/22 [Rx Last Taken 06/13/22] acetaminophen 500 mg tablet (Acetaminophen Extra Strength) 500 mg PO Q6H PRN Pain 06/14/22 [History Last Taken 06/13/22] ergocalciferol (vitamin D2) 1,250 mcg (50,000 unit) capsule 1,250 mcg PO SA SUPPLEMENT 06/14/22 [History Last Taken 06/09/22] metoprolol tartrate 25 mg tablet 25 mg PO BID bp 06/14/22 [History Last Taken 06/13/22] pantoprazole 40 mg tablet,delayed release 40 mg PO DAILY GERD 06/14/22 [History Last Taken 06/13/22] Allergy/AdvReac Type Severity Reaction Status Date / Time Penicillins [PCN] Allergy Unknown Verified 06/14/22 10:35 morphine AdvReac Mild confusion Verified 06/14/22 10:35 Family History Mother Diabetes Parkinson disease Grandmother Cancer Surgical History Amputated toe of left foot (08/2018) H/O coronary artery bypass surgery (06/12/18) H/O eye surgery History of left heart catheterization (05/20/18) Hx of cholecystectomy S/P meniscectomy Social History household members: spouse Smoking Status: Never smoker alcohol intake: current alcohol intake frequency: a few times a week substance use type: does not use caffeine: No ROS Constitutional Constitutional: Reports anorexia, chills, fatigue, fever(s), malaise and weakness; Denies change in weight, night sweats or other Eyes Eyes: Denies blurry vision, change in eye color, change in vision, discharge from eye(s), double vision, erythema, eye pain, loss of vision or other ENT HEENT: Reports sore throat; Denies abnormal hearing, dysphagia, ear pain, epistaxis, headache(s), hearing loss, nasal congestion, nasal discharge, post nasal drip, sinus pressure or other Cardiovascular Cardiovascular: Reports dyspnea on exertion; Denies chest pain, claudication, edema, lightheadedness, orthopnea, palpitations, paroxysmal nocturnal dyspnea, rapid heart rate, syncope or other Respiratory/Chest Respiratory/Chest: Reports cough, dyspnea, excessive phlegm production, productive cough, shortness of breath at rest, shortness of breath with exertion and wheezing; Denies hemoptysis Gastrointestinal Gastrointestinal: Reports diarrhea, loose stools, nausea and vomiting; Denies abdominal pain, coffee ground emesis, constipation, dyspepsia, hematemesis, hematochezia, melena or other Genitourinary Genitourinary: Reports other Details: Decreased urine output ; Denies burning urination, difficulty urinating, dysuria, hematuria, nocturia, urinary frequency, urinary hesitancy, urinary incontinence or urinary urgency Musculoskeletal Musculoskeletal: Reports myalgias; Denies arthralgias, back pain, joint pain, joint stiffness, joint swelling, neck pain or other Neurologic Neurologic: Reports other Details: Nonfocal generalized weakness ; Denies abnormal gait, abnormal speech, confusion, disequilibrium, dizziness, focal weakness, headache(s), numbness, paresthesias, seizure-like activity, seizures, syncope, tingling or tremor(s) Psychiatric Psychiatric: Denies anxiety, depression, homicidal ideation, suicidal ideation or other Hematologic/Lymphatic Hematologic/Lymphatic: Denies anemia, easy bleeding, easy bruising, lymphadenopathy or other Allergic/Immunologic Allergic/Immunologic: Denies rhinitis, hives, eczemia, asthma or other Vital Signs Vital Signs Vital Signs: 06/14/22 10:35 06/14/22 10:51 06/14/22 11:11 Temperature 101.3 F H Temperature Source Oral Pulse Rate 94 Respiratory Rate 18 Respiratory Effort Normal Non-Labored Respiratory Pattern Normal Blood Pressure 136/73 H Blood Pressure Mean 94 Pulse Ox 95 Oxygen Delivery Method Room Air Room Air Oxygen Flow Rate (L/min) 06/14/22 11:56 06/14/22 11:59 Temperature 99.3 F H Temperature Source Temporal Pulse Rate 85 85 Respiratory Rate 18 18 Respiratory Effort Respiratory Pattern Blood Pressure 170/75 H 170/75 H Blood Pressure Mean 106 106 Pulse Ox 98 98 Oxygen Delivery Method Nasal Cannula Nasal Cannula Oxygen Flow Rate (L/min) 2 2 Weight Weight: 77.2 kg Body Mass Index (BMI) 25.9 Physical Exam Const alert, oriented x3 and no apparent distress Constitutional Narrative: Very pleasant upper middle-aged white male who appears older than stated age, sitting up in bed, at bedside, appears ill but nontoxic, appears comfortable at this time General Appearance: cooperative HEENT normocephalic, head/scalp atraumatic and hearing grossly normal bilaterally HEENT Narrative: Mucous membranes are dry, dentition is fair, Mallampati is 2-3, no thrush Eyes PERRL, EOMs intact bilaterally and conjunctivae normal Eyes Narrative: No scleral icterus Neck no lymphadenopathy, supple, no JVD and no carotid bruits Neck Narrative: Trachea midline, no thyroid enlargement Resp normal respiratory effort, no retractions and no use of accessory muscles Resp Narrative: Scattered wheezes and rhonchi rhonchi were worse at the left base, intermittent cough that sounded loose and bronchial Auscultation: rhonchi and wheezes; Negative for rales Cardio regular rate, regular rhythm, S1 normal heart sound, S2 normal heart sound, no murmurs, no rub, no gallops and no clicks GI normal to inspection, nondistended, normoactive bowel sounds, soft to palpation and non-tender Extremity no clubbing, cyanosis or edema Extremity Narrative: 2+ pedal pulses Skin skin turgor normal, no jaundice, no petechiae and no mottling Skin Narrative: Wound on tip of second toe on left foot appears clean dry and intact without any drainage, skin is pale, actinic keratoses noted, left foot with Charcot malformation, corn on the plantar surface just anterior to the heel laterally Neuro oriented x3, CN's II-XII intact bilaterally, moves all extremities and no focal motor deficits Neuro Narrative: Decreased sensation bilateral lower extremities due to neuropathy, significant generalized weakness Speech: speech normal Psych affect normal Psych Narrative: Very pleasant, appropriately interactive Results Lab / Micro Data Attestation: I reviewed the patient's lab results. Result Diagrams: 06/14/22 11:13 06/14/22 11:13 Labs: Laboratory Results - last 24 hr 06/14/22 11:13: WBC 7.9, RBC 3.36 L, Hgb 10.9 L, Hct 33.0 L, MCV 98.2 H, MCH 32.4 H, MCHC 33.0, RDW Std Deviation 46.2 H, RDW Coeff of Dipti 12.9, Plt Count 142 L, MPV 10.8, Immature Gran % (Auto) 0.900, Neut % (Auto) 83.4 H, Lymph % (Auto) 4.3 L, Thayer % (Auto) 11.3 H, Eos % (Auto) 0.0, Baso % (Auto) 0.1, Absolute Neuts (auto) 6.6, Absolute Lymphs (auto) 0.34 L, Nucleated RBC % 0, Differential Comment SCANNED 06/14/22 11:13: PT 15.8 H, INR 1.3, APTT 40.9 H 06/14/22 11:13: Sodium 132 L, Potassium 3.9, Chloride 94 L, Carbon Dioxide 23.0, Anion Gap 15, BUN 55 H, Creatinine 3.04 H, Estim Creat Clear Calc 24.06, Est GFR (MDRD) Af Amer 27 L, Est GFR (MDRD) Non-Af 22 L, BUN/Creatinine Ratio 18.1, Glucose 114 H, Calcium 8.5, Total Bilirubin 0.60, AST 43 H, ALT 28, Alkaline Phosphatase 106, Total Protein 7.7, Albumin 3.2, Globulin 4.5 H, Albumin/Globulin Ratio 0.7 L 06/14/22 11:13: Lactic Acid 2.5 H* Micro: Microbiology 06/14/22 11:22 Nasal Secretion SARS-CoV-2 & FLU Antigen (Rapid) - Final Rhythm Strip Rhythm Strip: Sinus Rhythm Rate: 90 Ectopy: None Radiology Impression Chest X-Ray 06/14/22 11:25 IMPRESSION: No acute abnormality is seen. Electronically Signed: Emir Kwan MD at 12:11 EST , Assessment & Plan Assessment/Plan (1) Hyponatremia: (2) Generalized weakness: (3) Acute renal failure (ARF): (4) Lactic acidosis: (5) Thrombocytopenia: PLAN: Plan RAFA -Baseline serum creatinine appears to be between 1.1 and 1.5 -Current serum creatinine 3.04 -Appears dry with hyponatremia and hypochloremia along with an elevated BUN -Hold home Lasix -Hold home lisinopril -Decrease famotidine dose Lactic acidosis -Does not appear to be from sepsis -Suspect related to dehydration as he does appear markedly dehydration on presentation -Should resolve with IV fluids Hyponatremia -Acute on chronic -Patient had been on salt tablets and doing better -Patient has been noncompliant with salt tablets lately -Acute worsening is likely related to hypovolemic hyponatremia -We will treat with IV fluids and recheck BMP in a.m. -Salt tablets are not on his current med rec however it appears he was on 1 g daily to 4 times daily as needed -We will dose 1 g daily while hospitalized - patient will need a prescription for salt tablets at discharge as well Elevated blood pressure with a history of hypertension -Hold home lisinopril with RAFA -Hold Lasix with RAFA -Continue isosorbide mononitrate 60 mg p.o. twice daily -Continue metoprolol 25 mg twice daily -Continue home hydralazine 50 mg 3 times daily -As needed hydralazine for systolic pressure greater than 160 Thrombocytopenia -Likely related to acute issues -Repeat CBC in a.m. -Count is 142,000 Chronic bradycardia -Patient had a 30-day event monitor that showed an average heart rate of 55 bpm -I suspect he is not bradycardic at this point because of acute illness -Continue to monitor -No need for telemetry as this is chronic Hyperlipidemia -Continue atorvastatin Metastatic squamous cell carcinoma -Mets to bone--> extensive mets noted -Patient is currently on Keytruda -Continue pain medication CAD/compensated diastolic heart failure -CABG x 3 WALL-LAD, Free MAIK-OM, SVG-RPDA 06/12/18 -30-day event monitor in April 2022 that showed a 7 beat run of VT--> stress test performed and was negative for ischemia -Continue aspirin -Continue Plavix -Hold diuretics DM-2 with neuropathy/left Charcot foot abnormality -Continue gabapentin -Patient is strictly diet-controlled -With acute infection we will start sliding scale and Accu-Cheks Chronic anemia -Continue iron supplementation -Hemoglobin is stable when compared to previous data History of gout -Continue home allopurinol DVT prophylaxis -Heparin 3 times daily CODE STATUS -Full code as per discussion with patient the emergency department on admission Charges/Coding Visit Charges Inpatient E&M: 58904 Init Hosp L3
[2022-06-14 15:22] LABS: Reflex Lactate? Y
[2022-06-14] MEDS: Lactated Ringers 1,000 ML 125 ML IV ×2 (15:30→23:42)
[2022-06-14 15:32] LABS: CPK Total, Creatine Kinase 220 U/L (39-308)
[2022-06-14] MEDS: Vancomycin IV 1,000 MG/200 ML BAG 200 MG IV (16:04)
--- NOTE | 2022-06-14 16:24 | PCM.RX.CS ---
Consult Pharmacy has been consulted to manage selected antiobiotic: Vancomycin Type of Consult: New start Prior Doses of Antibiotics Received/Current Regimen: Medications Vancomycin HCl (Vancomycin) 1,000 mg in 200 mls @ 200 mls/hr IV X1 ONE Stop: 06/14/22 16:59 Last Admin: 06/14/22 16:04 Dose: 200 mls/hr Labs: Sodium 132 mmol/L (136-145) L 06/14/22 11:13 Potassium 3.9 mmol/L (3.5-5.1) 06/14/22 11:13 Chloride 94 mmol/L (98-107) L 06/14/22 11:13 Carbon Dioxide 23.0 mmol/L (21.0-32.0) 06/14/22 11:13 Anion Gap 15 (5-15) 06/14/22 11:13 BUN 55 mg/dL (7-18) H 06/14/22 11:13 Creatinine 3.04 mg/dL (0.70-1.30) H 06/14/22 11:13 Est GFR (MDRD) Af Amer 27 mL/min (>60) L 06/14/22 11:13 Est GFR (MDRD) Non-Af 22 mL/min (>60) L 06/14/22 11:13 BUN/Creatinine Ratio 18.1 RATIO (10-20) 06/14/22 11:13 Glucose 114 mg/dL (74-106) H 06/14/22 11:13 Microbiology: Microbiology 06/14/22 11:22 Nasal Secretion SARS-CoV-2 & FLU Antigen (Rapid) - Final Weight used for dosin kg Estimated Creatinine Clearance: 24 Goal Trough: 15-20 mcg/mL Pharmacy Plan for Drug Dosing: Vancomycin 1000mg IV x1 given, 500mg IV q24h with trough prior to 3rd dose per policy. Pharmacy Service will continue to monitor and adjust dosing as required. Follow-Up Labs: Trough Vancomycin - 06/16 @ 1530
[2022-06-14] MEDS: oxyCODONE 5 MG Tablet 10 MG PO ×2 (16:29→21:27)
[2022-06-14 16:30] LABS: Bedside Glucose 105 mg/dL (74-106)
[2022-06-14] MEDS: Sodium Chloride 1 GM Tablet PO (17:24)
[2022-06-14 17:55] LABS: Lactic Acid 1.2 mmol/L (0.4-1.9)
[2022-06-14 19:39] LABS: Bacteria 0 SEEN /hpf (None Seen); Mucous, Urine 0 SEEN /hpf (<or=2+); Red Blood Cells-Urine 0 SEEN /hpf (0-5); White Blood Cells 0 SEEN /hpf (0-5)
[2022-06-14 19:41] LABS: Color, Urine Yellow (Yellow); Glucose, Dipstick Normal (Normal); Ketone-Dipstick Negative (Negative); Leukocyte Esterase-Dipstick Negative /ul (Negative); Nitrite-Dipstick Negative (Negative); Occult Blood-Urine 25 /ul (Negative); Protein-Dipstick 100 mg/dl (Negative); Urine Bilirubin Dipstick Negative (Negative); Urine Clarity Clear (Clear); Urine Urobilinogen Normal (Normal)
[2022-06-14 19:47] LABS: Squamous Epithelial Cells - UA 0-5 SEEN /hpf (0-5)
[2022-06-14] MEDS: Acetaminophen 325 MG Tablet 650 MG PO (20:14)
[2022-06-14] MEDS: Isosorbide Mononitrate 60 MG Tablet PO (21:28)
[2022-06-14] MEDS: Gabapentin 100 MG Capsule 200 MG PO (21:28)
[2022-06-14] MEDS: Metoprolol Tartrate 25 MG Tablet PO (21:28)
[2022-06-14] MEDS: Famotidine 20 MG Tablet PO (21:28)
[2022-06-14] MEDS: Atorvastatin Calcium 40 MG Tablet PO (21:28)
[2022-06-14] MEDS: Tamsulosin HCl 0.4 MG Capsule PO (21:28)
[2022-06-14] MEDS: Pantoprazole Sodium 40 MG Tablet PO (21:28)
[2022-06-14] MEDS: Clopidogrel Bisulfate 75 MG Tablet PO (21:29)
[2022-06-14] MEDS: hydrALAZINE 50 MG Tablet PO (21:29)
[2022-06-14] MEDS: Senna/Docusate Sodium 1 Tablet 2 TABLET PO (21:29)
[2022-06-14] MEDS: guaiFENesin 10 ML UDC (200MG/10ML) 20 ML PO (22:31)
[2022-06-14 22:51] LABS: Bedside Glucose 109 mg/dL (74-106)
[2022-06-14] MEDS: Albuterol 2.5 MG/3 ML VIAL.NEB. INHALATION (23:48)
[2022-06-15] VITALS (18 sets, daily range): BP systolic 111–167; BP diastolic 63–81; PULSE 66–106; RESP 16–24; TEMP 36.8–38.8; O2SAT 90–98
[2022-06-15] MEDS: oxyCODONE 5 MG Tablet 10 MG PO ×3 (02:12→11:26)
[2022-06-15] MEDS: Acetaminophen 325 MG Tablet 650 MG PO ×2 (02:14→09:20)
[2022-06-15] MEDS: Temazepam 15 MG Capsule PO (03:02)
[2022-06-15] MEDS: hydrALAZINE 50 MG Tablet PO ×3 (05:14→21:39)
[2022-06-15] MEDS: Gabapentin 100 MG Capsule 200 MG PO ×3 (05:14→21:29)
[2022-06-15] MEDS: Lactated Ringers 1,000 ML 125 ML IV ×2 (06:19→19:31)
[2022-06-15 06:30] LABS: Bedside Glucose 115 mg/dL (74-106)
[2022-06-15 06:55] LABS: Absolute Lymphocyte Count 0.45 X10^3/uL (0.83-4.51); Absolute Neutrophil Count 5.6 X10^3/uL (2.0-7.7); Basophil# 0.01 X10^3/uL; Basophil% 0.1 % (0-1); Eosinophil# 0.01 X10^3/uL; Eosinophils% 0.1 % (0-5); Hematocrit 28.2 % (40-54); Hemoglobin 9.2 g/dL (13.0-16.5); Lymphocyte # 0.45 X10^3/ul (0.83-4.51); Lymphocyte % 6.6 % (19-41); Mean Corp Hgb Conc 32.6 g/dL (32-36); Mean Corpuscular Hgb 31.6 pg (27.0-32.0); Mean Corpuscular Volume 96.9 fL (80-94); Mean Platelet Vol. 11.1 fl (6.2-12.0); Monocyte# 0.65 X10^3/uL; Monocyte% 9.6 % (0-10); NRBC Flagged by Analyzer 0 % (0-5); Neutrophil # 5.58 X10^3/uL (2.7-7.7); Neutrophil % 82.4 % (47-70); POSITIVE DIFFERENTIAL YES; POSITIVE MORPHOLOGY YES; Platelet Count 117 K/mm3 (150-450); RBC Distribution Width CV 12.8 % (11.6-14.6); RBC Distribution Width SD 45.9 fl (35.1-43.9); Red Blood Count 2.91 M/mm3 (4.6-6.2); White Blood Count 6.8 K/mm3 (4.4-11.0)
[2022-06-15 07:05] LABS: Differential Indicated SCAN CRITERIA MET
[2022-06-15 07:21] LABS: Differential Comment SCANNED
[2022-06-15 07:37] LABS: ALB/GLOB Ratio 0.7 RATIO (0.9-2.4); AST(SGOT) 65 U/L (15-37); Alanine Aminotransfer ALT/SGPT 25 U/L (16-61); Albumin, Serum 2.7 g/dL (3.2-5.0); Alkaline Phosphatase 86 U/L (45-117); Anion Gap 10 (5-15); BUN 54 mg/dL (7-18); BUN/Creat Ratio 24.2 RATIO (10-20); Calcium,Total 7.9 mg/dL (8.5-10.1); Chloride 101 mmol/L (98-107); Creatinine, Serum 2.23 mg/dL (0.70-1.30); EST Glomerular Filtration Rate 32 mL/min (>60); Est Glom Filt Rate - Afr Amer 38 mL/min (>60); Globulin 3.7 g/dL (2.2-4.2); Glucose 118 mg/dL (74-106); Magnesium 1.4 mg/dL (1.6-2.6); Phosphorus 3.8 mg/dL (2.5-4.9); Potassium 3.5 mmol/L (3.5-5.1); Protein, Total 6.4 g/dL (6.4-8.2); Sodium Level 132 mmol/L (136-145)
--- NOTE | 2022-06-15 08:50 | PCM.RX.CS ---
Consult Pharmacy has been consulted to manage selected antiobiotic: Vancomycin Type of Consult: Follow-up Labs: Sodium 132 mmol/L (136-145) L 06/15/22 06:10 Potassium 3.5 mmol/L (3.5-5.1) 06/15/22 06:10 Chloride 101 mmol/L (98-107) 06/15/22 06:10 Carbon Dioxide 21.0 mmol/L (21.0-32.0) 06/15/22 06:10 Anion Gap 10 (5-15) 06/15/22 06:10 BUN 54 mg/dL (7-18) H 06/15/22 06:10 Creatinine 2.23 mg/dL (0.70-1.30) H 06/15/22 06:10 Est GFR (MDRD) Af Amer 38 mL/min (>60) L 06/15/22 06:10 Est GFR (MDRD) Non-Af 32 mL/min (>60) L 06/15/22 06:10 BUN/Creatinine Ratio 24.2 RATIO (10-20) H 06/15/22 06:10 Glucose 118 mg/dL (74-106) H 06/15/22 06:10 Microbiology: Microbiology 06/15/22 00:53 Mucosa - Nasopharyngeal Respiratory Panel (PCR) - Final Adenovirus 06/14/22 18:32 Urine, Clean Catch Legionella Antigen - Final 06/14/22 18:32 Urine, Clean Catch Streptococcus pneumoniae Antigen (M - Final 06/14/22 11:22 Nasal Secretion SARS-CoV-2 & FLU Antigen (Rapid) - Final Weight used for dosin kg Estimated Creatinine Clearance: 32.8ml/min Goal Trough: 15-20 mcg/mL Pharmacy Plan for Drug Dosing: The patient's SCr improved to 2.23 (CrCl 32.8) from 3.04 so will increase the starting dose later this afternoon to 1000mg q24h from 500mg q24h. The patient received 1000mg x1 yesterday at 16:00. Keep trough the same time. Pharmacy Service will continue to monitor and adjust dosing as required. Follow-Up Labs: Trough Vancomycin Labs to be done on [date and time ordered]: 06/16/22 3572
[2022-06-15] MEDS: Aspirin E.C. 81 MG Tablet PO (09:20)
[2022-06-15] MEDS: Metoprolol Tartrate 25 MG Tablet PO ×2 (09:20→21:29)
[2022-06-15] MEDS: Pantoprazole Sodium 40 MG Tablet PO (09:20)
[2022-06-15] MEDS: Isosorbide Mononitrate 60 MG Tablet PO ×2 (09:20→21:29)
[2022-06-15] MEDS: Famotidine 20 MG Tablet PO (09:20)
[2022-06-15] MEDS: Sodium Chloride 1 GM Tablet PO (09:21)
[2022-06-15] MEDS: Enoxaparin 40 MG/0.4 ML Syringe SC (09:21)
[2022-06-15] MEDS: Allopurinol 100 MG Tablet PO (09:21)
[2022-06-15 11:50] LABS: Bedside Glucose 129 mg/dL (74-106)
[2022-06-15] MEDS: Glucerna Shake 120 ML LIQUID PO ×2 (14:05→17:33)
--- NOTE | 2022-06-15 14:30 | CASEMGMT ---
LLOYD GAO DC Planning Assessment: Face to Face with patient for initial transition planning/care coordination assessment. LLOYD GAO introduced self and role at [facility], pt voices understanding. Pt alert, oriented x4, and agreeable to participating in assessment with at bedside. Care providers, pharmacy, and demographics verified. Admission Dx: RAFA PCP: Sarah Specialists: Jennifer (cardiology), Narciso (podiatry), Debi (oncology), [facility], and a cigarette paper tester Preferred Pharmacy: [facility] Retail Insurance: [employer] Prescription Benefit: yes Living Will/HPOA: none LNOK: Maya Living Arrangements: Pt lives in a single story home with a ramp entrance with his . Pt states he is independent with ADLs including self care and household tasks. Pt states he no longer can do major household tasks but does wash the dishes and does laundry. Transportation: pt drives and spouse can drive if needed DME: cane, walker, w/c, shower chair, grab bars, hand held shower, lift chair, nebulizer and pulse oximeter. States he does not have a hospital bed but they do have an adjustable bed frame. SNF: [facility] for one week after his spinal surgery HHC: [facility] for PICC line dressing changes Plan: Pt states he plans to return home at discharge with the support of his . Pt explained that his is a home health aide and is able to assist pt with any ADLs. Pt's states she is not currently working and will be available 05/11 to assist pt as needed. Pt's expressed concern of pt's ability to ambulate. Explained that will ensure PT/OT are ordered. Discussed home health services at discharge including PT/OT which pt and pt's were agreeable to. Pt's also requested detention services. Pt and his declined a list of home health care providers and stated he would like [facility] since they had this provider in the past. Referral sent to [facility] via [facility]. Pt also expressed interest in changing nephrologists to one located in [place]. Information provided for [facility] and Dr. Dasilva's offices Will continue to monitor for acceptance and any additional DC needs. Jose Cerda RN CM
--- NOTE | 2022-06-15 14:52 | CHAPLAIN ---
Type of Pastoral Visit _x__ Initial Visit ___ Follow-up Visit ___ On-call Visit ___ General Patient Visit ___ Spiritual Assessment ___ Family Conference ___ Bereavement ___ Rapid Response ___ Code Blue ___ Other (describe below) Pastoral Care Referral From _x__ Patient ___ Family ___ Nurse ___ Physician ___ Digital Technician ___ Assistant Maintenance Manager ___ Other (describe below) Sacrament/Intervention _x__ Active listening ___ Anointing ___ Jew ___ Bereavement ___ Communion ___ Charlette exploration ___ _x__ Life review _x__ Prayer ___ Reconciliation ___ Sacrament of Sick _x__ Supportive presence ___ Wedding ___ Other (describe below) Pastoral Comments patient is welcoming and states that he remembers this biometrics instructor from previous admissions and asks about life of this biometrics instructor; pt gives some life review and current updates and thoughts about his health; pt states I'm not dying, but other people act like I am; pt states that wants him to consider halfway but he does not want to do so; pt requests prayer; pt is expressive of appreciation for the spiritual care support given
[2022-06-15] MEDS: oxyCODONE 5 MG Tablet 15 MG PO ×2 (15:25→19:31)
[2022-06-15 15:46] LABS: Bedside Glucose 110 mg/dL (74-106)
--- NOTE | 2022-06-15 18:07 | PN.HOSP_ITS ---
Reason for Visit Reason for Visit: Diagnoses Thrombocytopenia, unspecified (06/14/22) Hypo-osmolality and hyponatremia (06/14/22) Acidosis, unspecified (06/14/22) Acute kidney failure, unspecified (06/14/22) Weakness (06/14/22) Subjective Subjective Patient was seen and examined today, I talked with his was in the room at the time my examination, he resulted positive for adenovirus, I have decided to stop his IV vancomycin and cefepime. Patient chronically takes Keflex, I have left him on this medication. Patient's creatinine is improved today, he is on no IV maintenance fluids however, I have elected to place him on fluids overnigh t at 125 an hour Objective Data Objective Data Vital Signs: Vital Signs Temp Pulse Resp BP Pulse Ox O2 Del Method O2 Flow Rate 98.2 F 78 16 141/81 H 98 Nasal Cannula 2 06/15/22 17:35 06/15/22 17:35 06/15/22 17:35 06/15/22 17:35 06/15/22 17:35 06/15/22 17:35 06/15/22 17:35 Oxygen Flow Rate (L/min) 2 Oxygen Delivery Method Nasal Cannula Weight: 72.892 kg Body Mass Index (BMI) 24.4 Intake & Output: Intake and Output for Last 24 Hours 06/13/22 06/14/22 06/15/22 23:59 23:59 23:59 Intake Total 2075.0 / 2075.0 2388.75 / 2388.75 Output Total 550 / 550 Balance 2075.0 / 2075.0 1838.75 / 1838.75 Medical Nutrition Assessment Dietitian: Malnutrition Criteria Met Start: 06/15/22 11:34 Freq: Status: Active Protocol: Document 06/15/22 11:35 SLA (Rec: 06/15/22 11:35 SLA Desktop) Nutrition Malnutrition Evidence of Malnutrition Exists Yes Malnutrition (severe): Acute Illness/Injury Evidenced By Suboptimal Energy Intake ( Severe),Weight Loss (Severe) Clinical Problem Acute Disease or Injury Related Malnutrition Etiology related to acute illness and inadequate energy intake Signs/Symptoms as evidenced by meeting <50% of est nutritional needs and 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 Problem Recommendation Dietitian Recommendations/Changes Will continue 1800 jimmy Consistent CHO diet - consider liberalize to Regular if po intake fails to improve Will order 4 oz glucerna shake 4x/day w/ medpass Lab / Micro Data Result Diagrams: 06/15/22 06:10 06/15/22 06:10 Labs: Laboratory Results - last 24 hr 06/14/22 16:41: COVID-19 (ORAL) Not Detected 06/14/22 18:32: Urine Color Yellow, Urine Clarity Clear, Urine pH 5.0, Ur Specific [place] 1.020, Urine Protein 100 H, Urine Glucose (UA) Normal, Urine Ketones Negative, Urine Occult Blood 25 H, Urine Nitrite Negative, Urine Bilirubin Negative, Urine Urobilinogen Normal, Ur Leukocyte Esterase Negative, Urine RBC 0 SEEN, Urine WBC 0 SEEN, Ur Squamous Epith Cells 0-5 SEEN, Urine Bacteria 0 SEEN, Urine Mucus 0 SEEN 06/14/22 22:27: POC Glucose 109 H 06/15/22 06:09: POC Glucose 115 H 06/15/22 06:10: WBC 6.8, RBC 2.91 L, Hgb 9.2 L, Hct 28.2 L, MCV 96.9 H, MCH 31.6, MCHC 32.6, RDW Std Deviation 45.9 H, RDW Coeff of Dipti 12.8, Plt Count 117 L, MPV 11.1, Immature Gran % (Auto) 1.200 H, Neut % (Auto) 82.4 H, Lymph % (Auto) 6.6 L, [place] % (Auto) 9.6, Eos % (Auto) 0.1, Baso % (Auto) 0.1, Absolute Neuts (auto) 5.6, Absolute Lymphs (auto) 0.45 L, Nucleated RBC % 0, Differential Comment SCANNED 06/15/22 06:10: Sodium 132 L, Potassium 3.5, Chloride 101, Carbon Dioxide 21.0, Anion Gap 10, BUN 54 H, Creatinine 2.23 H, Estim Creat Clear Calc 32.80, Est GFR (MDRD) Af Amer 38 L, Est GFR (MDRD) Non-Af 32 L, BUN/Creatinine Ratio 24.2 H, Glucose 118 H, Calcium 7.9 L, Phosphorus 3.8, Magnesium 1.4 L, Total Bilirubin 0.60, AST 65 H, ALT 25, Alkaline Phosphatase 86, Total Protein 6.4, Albumin 2.7 L, Globulin 3.7, Albumin/Globulin Ratio 0.7 L 06/15/22 11:16: POC Glucose 129 H 06/15/22 15:23: POC Glucose 110 H Micro: Microbiology 06/15/22 09:20 Stool C. difficile DNA Amplification - Final 06/14/22 20:10 Sputum, Expectorated/Coughed Gram Stain - Final 06/14/22 20:10 Sputum, Expectorated/Coughed Respiratory Culture - Preliminary Appears to be normal respiratory monica. Further studies to follow. 06/15/22 09:20 Stool Enteric Bacteriology - Final 06/14/22 18:32 Urine, Clean Catch Urine Culture - Preliminary Culture exhibits no growth. 06/15/22 00:53 Mucosa - Nasopharyngeal Respiratory Panel (PCR) - Final Adenovirus 06/14/22 18:32 Urine, Clean Catch Legionella Antigen - Final 06/14/22 18:32 Urine, Clean Catch Streptococcus pneumoniae Antigen (M - Final 06/14/22 11:22 Nasal Secretion SARS-CoV-2 & FLU Antigen (Rapid) - Final Rhythm Strip Rhythm Strip: Sinus Rhythm Rate: 90 Ectopy: None Physical Exam Const alert, oriented x3, no apparent distress and average body habitus General Appearance: cooperative, well kempt and well developed Orientation / Consciousness: awake, oriented to person, oriented to place and oriented to time HEENT normocephalic, head/scalp atraumatic and moist oral mucous membranes Eyes PERRL, EOMs intact bilaterally and conjunctivae normal Neck supple, no JVD, thyroid normal and no carotid bruits General: trachea midline Resp normal respiratory effort, no retractions, no use of accessory muscles and clear to auscultation bilaterally Resp Narrative: Expiratory wheezing was scattered over both lungs. Auscultation: wheezes; Negative for rales or rhonchi Cardio regular rate, regular rhythm, S1 normal heart sound, S2 normal heart sound, no murmurs, no rub and no gallops GI normal to inspection, nondistended, normoactive bowel sounds, soft to palpation, non-tender and non-distended Extremity no clubbing, cyanosis or edema Skin Skin Narrative: Patient has a skin lesion approximately 1 cm round on his right upper shoulder area, it appears to be eroding through the skin surface-he states it is a squamous cell cancer Neuro oriented x3, CN's II-XII intact bilaterally, moves all extremities, no focal motor deficits and no sensory deficits noted Sensorium / Orientation: awake, alert, oriented to person, oriented to place and oriented to time Speech: speech normal Psych affect normal Assessment & Plan Assessment/Plan (1) Dyspnea on exertion: PLAN: Plan 1. Adenovirus tracheobronchitis-again I have made decisions to stop the patient's IV antibiotics and place the patient back on his Keflex which he takes at home. 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 #4 chronic bone pain secondary to #3-I have elected to increase the patient's methadone to 5 mg 3 times daily, I have increased his Oxy IR to 15 mg every 4 hours as needed #5 coronary artery disease-patient is on metoprolol currently as well as aspirin, Plavix, Lipitor, and Imdur. #6 hyperlipidemia-patient is on Lipitor Total clinical time spent by myself addressing the patient's medical issues, reviewing all of his data, and collaborating with patient's care team: 35 minutes Charges/Coding Visit Charges Inpatient E&M: 83386 Subs Hosp L2
[2022-06-15] MEDS: Albuterol 2.5 MG/3 ML VIAL.NEB. INHALATION (19:29)
[2022-06-15] MEDS: 0.9% Saline Lock 10 ML Syringe IV (21:38)
[2022-06-15] MEDS: Atorvastatin Calcium 40 MG Tablet PO (21:39)
[2022-06-15] MEDS: Senna/Docusate Sodium 1 Tablet 2 TABLET PO (21:39)
[2022-06-15] MEDS: Cephalexin 500 MG Capsule PO (21:39)
[2022-06-15] MEDS: Clopidogrel Bisulfate 75 MG Tablet PO (21:39)
[2022-06-15] MEDS: Tamsulosin HCl 0.4 MG Capsule PO (21:39)
[2022-06-15 22:10] LABS: Bedside Glucose 130 mg/dL (74-106)
[2022-06-16] VITALS (17 sets, daily range): BP systolic 103–194; BP diastolic 60–96; PULSE 56–82; RESP 16–20; TEMP 36.3–38; O2SAT 85–99
[2022-06-16] MEDS: Temazepam 15 MG Capsule PO (00:29)
[2022-06-16] MEDS: Acetaminophen 325 MG Tablet 650 MG PO ×2 (00:29→23:23)
[2022-06-16] MEDS: oxyCODONE 5 MG Tablet 15 MG PO ×3 (00:30→23:24)
[2022-06-16] MEDS: Lactated Ringers 1,000 ML 125 ML IV ×2 (02:17→11:06)
[2022-06-16] MEDS: 0.9% Saline Lock 10 ML Syringe IV (05:50)
[2022-06-16] MEDS: hydrALAZINE 50 MG Tablet PO ×3 (05:50→22:52)
[2022-06-16] MEDS: Cephalexin 500 MG Capsule PO ×3 (05:51→22:46)
[2022-06-16] MEDS: Gabapentin 100 MG Capsule 200 MG PO ×3 (05:51→22:46)
[2022-06-16] MEDS: Insulin Lispro 100 UNIT/ML INSULN.PEN SC ×3 (06:23→16:11)
[2022-06-16 06:40] LABS: Bedside Glucose 162 mg/dL (74-106)
[2022-06-16 07:14] LABS: Absolute Neutrophil Count 5.7 X10^3/uL (2.0-7.7); Basophil# 0.02 X10^3/uL; Basophil% 0.3 % (0-1); Hematocrit 29.1 % (40-54); Hemoglobin 9.8 g/dL (13.0-16.5); Lymphocyte % 4.8 % (19-41); Mean Corp Hgb Conc 33.7 g/dL (32-36); Mean Corpuscular Hgb 32.3 pg (27.0-32.0); Mean Platelet Vol. 10.8 fl (6.2-12.0); Monocyte% 3.2 % (0-10); NRBC Flagged by Analyzer 0 % (0-5); Neutrophil # 5.66 X10^3/uL (2.7-7.7); Neutrophil % 90.9 % (47-70); POSITIVE DIFFERENTIAL YES; POSITIVE MORPHOLOGY YES; Platelet Count 138 K/mm3 (150-450); RBC Distribution Width CV 12.9 % (11.6-14.6); RBC Distribution Width SD 45.2 fl (35.1-43.9); Red Blood Count 3.03 M/mm3 (4.6-6.2); White Blood Count 6.2 K/mm3 (4.4-11.0)
[2022-06-16 07:18] LABS: Differential Indicated SCAN CRITERIA MET
[2022-06-16] MEDS: Albuterol 2.5 MG/3 ML VIAL.NEB. INHALATION ×3 (07:29→20:38)
[2022-06-16 07:39] LABS: Anion Gap 11 (5-15); BUN 55 mg/dL (7-18); BUN/Creat Ratio 31.8 RATIO (10-20); Calcium,Total 8.1 mg/dL (8.5-10.1); Chloride 99 mmol/L (98-107); Creatinine, Serum 1.73 mg/dL (0.70-1.30); EST Glomerular Filtration Rate 43 mL/min (>60); Est Glom Filt Rate - Afr Amer 51 mL/min (>60); Estimated Creatinine Clearance 42.28 ml/min; Glucose 200 mg/dL (74-106); Potassium 3.9 mmol/L (3.5-5.1); Sodium Level 131 mmol/L (136-145)
[2022-06-16] MEDS: Allopurinol 100 MG Tablet PO (07:51)
[2022-06-16] MEDS: Aspirin E.C. 81 MG Tablet PO (07:51)
[2022-06-16] MEDS: Sodium Chloride 1 GM Tablet PO (07:51)
[2022-06-16] MEDS: Metoprolol Tartrate 25 MG Tablet PO ×2 (07:51→22:52)
[2022-06-16] MEDS: Enoxaparin 40 MG/0.4 ML Syringe SC (07:51)
[2022-06-16] MEDS: Glucerna Shake 120 ML LIQUID PO ×2 (07:51→23:24)
[2022-06-16] MEDS: Famotidine 20 MG Tablet PO (07:51)
[2022-06-16] MEDS: Pantoprazole Sodium 40 MG Tablet PO (07:51)
[2022-06-16] MEDS: Isosorbide Mononitrate 60 MG Tablet PO ×2 (07:51→22:45)
[2022-06-16 09:34] LABS: Differential Comment SCANNED
[2022-06-16 11:45] LABS: Bedside Glucose 231 mg/dL (74-106)
--- NOTE | 2022-06-16 12:59 | CASEMGMT ---
[facility] is unable to accept pt. RN CM into pt room to make aware. Patient was provided a list of [facility] providers including quality and resource use data and consistent with the patient?s preferred geographic region, medical needs, and insurance network were provided from the [employer] Guide. Pt chose [facility] followed by [facility]. Referral sent to [facility] at this time via careport. Will await acceptance. Pt aware that should he dc prior to acceptance RN CM will call him at home to make aware of accepting agency. Pt verbalizes understanding.
--- NOTE | 2022-06-16 15:53 | PCM.PN.HOSP ---
Reason for Visit Reason for Visit: Diagnoses Thrombocytopenia, unspecified (06/14/22) Hypo-osmolality and hyponatremia (06/14/22) Acidosis, unspecified (06/14/22) Acute kidney failure, unspecified (06/14/22) Dyspnea, unspecified (06/14/22) Weakness (06/14/22) Subjective Subjective Patient was seen and examined in August, on examination, he had expiratory rhonchi scattered over both lungs. Patient was walked on room air but his oxygen sat dropped below 88%. Objective Data Objective Data Vital Signs: Vital Signs Temp Pulse Resp BP Pulse Ox O2 Del Method O2 Flow Rate 97.6 F L 65 19 H 194/80 H 98 Nasal Cannula 2 06/16/22 11:13 06/16/22 13:35 06/16/22 13:35 06/16/22 11:13 06/16/22 13:35 06/16/22 14:07 06/16/22 14:07 Oxygen Flow Rate (L/min) [ 2 AMBULATING with Oxygen #2] Oxygen Flow Rate (L/min) [At 2 REST with Oxygen] Oxygen Flow Rate (L/min) 2 Oxygen Delivery Method Nasal Cannula Weight: 72.892 kg Body Mass Index (BMI) 24.4 Intake & Output: Intake and Output for Last 24 Hours 06/14/22 06/15/22 06/16/22 23:59 23:59 23:59 Intake Total 2075.0 / 2075.0 2877.08 / 2877.08 2379.16 / 2379.16 Output Total 550 / 900 650 / 650 Balance 2075.0 / 2075.0 2327.08 / 1977.08 1729.16 / 1729.16 Medical Nutrition Assessment Dietitian: Malnutrition Criteria Met Start: 06/15/22 11:34 Freq: Status: Active Protocol: Document 06/15/22 11:35 SLA (Rec: 06/15/22 11:35 SLA Desktop) Nutrition Malnutrition Evidence of Malnutrition Exists Yes Malnutrition (severe): Acute Illness/Injury Evidenced By Suboptimal Energy Intake ( Severe),Weight Loss (Severe) Clinical Problem Acute Disease or Injury Related Malnutrition Etiology related to acute illness and inadequate energy intake Signs/Symptoms as evidenced by meeting <50% of est nutritional needs and 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 Problem Recommendation Dietitian Recommendations/Changes Will continue 1800 jimmy Consistent CHO diet - consider liberalize to Regular if po intake fails to improve Will order 4 oz glucerna shake 4x/day w/ medpass Lab / Micro Data Result Diagrams: 06/16/22 06:54 06/16/22 06:54 Labs: Laboratory Results - last 24 hr 06/15/22 21:53: POC Glucose 130 H 06/16/22 06:11: POC Glucose 162 H 06/16/22 06:54: WBC 6.2, RBC 3.03 L, Hgb 9.8 L, Hct 29.1 L, MCV 96.0 H, MCH 32.3 H, MCHC 33.7, RDW Std Deviation 45.2 H, RDW Coeff of Dipti 12.9, Plt Count 138 L, MPV 10.8, Immature Gran % (Auto) 0.800, Neut % (Auto) 90.9 H, Lymph % (Auto) 4.8 L, [place] % (Auto) 3.2, Eos % (Auto) 0.0, Baso % (Auto) 0.3, Absolute Neuts (auto) 5.7, Absolute Lymphs (auto) 0.30 L, Nucleated RBC % 0, Differential Comment SCANNED 06/16/22 06:54: Sodium 131 L, Potassium 3.9, Chloride 99, Carbon Dioxide 21.0, Anion Gap 11, BUN 55 H, Creatinine 1.73 H, Estim Creat Clear Calc 42.28, Est GFR (MDRD) Af Amer 51 L, Est GFR (MDRD) Non-Af 43 L, BUN/Creatinine Ratio 31.8 H, Glucose 200 H, Calcium 8.1 L 06/16/22 10:50: POC Glucose 231 H Micro: Microbiology 06/14/22 11:22 Blood Culture (Wb) - Right Forearm Blood Culture - Preliminary No growth in 48 hours. 06/14/22 11:13 Blood Culture (Wb) - Venous Blood Culture - Preliminary No growth in 48 hours. 06/14/22 20:10 Sputum, Expectorated/Coughed Gram Stain - Final 06/14/22 20:10 Sputum, Expectorated/Coughed Respiratory Culture - Final Mixed normal respiratory monica. No Streptococcus pneumoniae, beta-hemolytic Streptococcus or Staphylococcus aureus isolated. 06/14/22 18:32 Urine, Clean Catch Urine Culture - Final Culture exhibits no growth. 06/15/22 09:20 Stool C. difficile DNA Amplification - Final 06/15/22 09:20 Stool Enteric Bacteriology - Final 06/15/22 00:53 Mucosa - Nasopharyngeal Respiratory Panel (PCR) - Final Adenovirus 06/14/22 18:32 Urine, Clean Catch Legionella Antigen - Final 06/14/22 18:32 Urine, Clean Catch Streptococcus pneumoniae Antigen (M - Final 06/14/22 11:22 Nasal Secretion SARS-CoV-2 & FLU Antigen (Rapid) - Final Rhythm Strip Rhythm Strip: Sinus Rhythm Rate: 90 Ectopy: None Physical Exam Const alert, oriented x3, no apparent distress and healthy appearing General Appearance: cooperative, well kempt and well developed Orientation / Consciousness: awake, oriented to person, oriented to place and oriented to time HEENT normocephalic, head/scalp atraumatic and moist oral mucous membranes Eyes PERRL, EOMs intact bilaterally and conjunctivae normal Neck supple, no JVD and thyroid normal General: trachea midline Resp normal respiratory effort, no retractions and no use of accessory muscles Resp Narrative: Expiratory rhonchi were noted bilaterally Auscultation: rhonchi throughout; Negative for rales or wheezes Cardio regular rate, regular rhythm, S1 normal heart sound, S2 normal heart sound, no murmurs, no rub and no gallops GI normal to inspection, nondistended, normoactive bowel sounds, soft to palpation, non-tender and non-distended Extremity no clubbing, cyanosis or edema Skin no rashes or lesions noted General Skin Exam: no breakdown Neuro oriented x3, CN's II-XII intact bilaterally, no focal motor deficits and no sensory deficits noted Sensorium / Orientation: awake, alert, oriented to person, oriented to place and oriented to time Speech: speech normal Psych affect normal Assessment & Plan Assessment/Plan (1) Dyspnea on exertion: PLAN: Plan 1. 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 #4 chronic bone pain secondary to #3-patient is on methadone for chronic pain #5 coronary artery disease-patient is on metoprolol currently as well as aspirin, Plavix, Lipitor, and Imdur. #6 hyperlipidemia-patient is on Lipitor Total clinical time spent by myself addressing the patient's medical issues, reviewing all of his data, and collaborating with patient's care team: 35 minutes Charges/Coding Visit Charges Inpatient E&M: 38467 Subs Hosp L2
[2022-06-16 16:31] LABS: Bedside Glucose 297 mg/dL (74-106)
[2022-06-16] MEDS: Lactated Ringers 1,000 ML 100 ML IV (21:41)
[2022-06-16] MEDS: Atorvastatin Calcium 40 MG Tablet PO (22:45)
[2022-06-16] MEDS: Senna/Docusate Sodium 1 Tablet 2 TABLET PO (22:45)
[2022-06-16] MEDS: Tamsulosin HCl 0.4 MG Capsule PO (22:45)
[2022-06-16] MEDS: Clopidogrel Bisulfate 75 MG Tablet PO (22:46)
[2022-06-17] VITALS (10 sets, daily range): BP systolic 133–195; BP diastolic 70–99; PULSE 61–80; RESP 16–19; TEMP 36.6–37.1; O2SAT 93–98
[2022-06-17] MEDS: hydrALAZINE 50 MG Tablet PO ×2 (05:09→14:40)
[2022-06-17] MEDS: Cephalexin 500 MG Capsule PO ×2 (05:09→14:34)
[2022-06-17] MEDS: Lactated Ringers 1,000 ML 100 ML IV (05:10)
[2022-06-17] MEDS: Gabapentin 100 MG Capsule 200 MG PO ×2 (05:10→14:34)
[2022-06-17] MEDS: Insulin Lispro 100 UNIT/ML INSULN.PEN SC ×2 (06:17→12:36)
[2022-06-17] MEDS: Acetaminophen 325 MG Tablet 650 MG PO ×2 (06:19→12:37)
[2022-06-17] MEDS: oxyCODONE 5 MG Tablet 15 MG PO ×3 (06:19→14:51)
[2022-06-17 07:06] LABS: Bedside Glucose 304 mg/dL (74-106)
[2022-06-17] MEDS: Aspirin E.C. 81 MG Tablet PO (08:53)
--- NOTE | 2022-06-17 09:07 | PN.HOSP_ITS ---
Reason for Visit Reason for Visit: Diagnoses Thrombocytopenia, unspecified (06/14/22) Hypo-osmolality and hyponatremia (06/14/22) Acidosis, unspecified (06/14/22) Acute kidney failure, unspecified (06/14/22) Dyspnea, unspecified (06/14/22) Weakness (06/14/22) Subjective Subjective Patient was seen and examined, I do not feel he needs continued IV fluids, I ordered labs on him today. Patient's blood pressure medications were adjusted today, he has been running high. I told the patient that if we could get him off oxygen today he might be able to go home. Objective Data Objective Data Vital Signs: Vital Signs Temp Pulse Resp BP Pulse Ox O2 Del Method O2 Flow Rate 98.8 F 78 16 195/86 H 95 Nasal Cannula 2 06/17/22 05:30 06/17/22 05:30 06/17/22 05:30 06/17/22 05:30 06/17/22 08:00 06/17/22 05:30 06/17/22 08:00 Oxygen Flow Rate (L/min) [ 2 AMBULATING with Oxygen #2] Oxygen Flow Rate (L/min) [At 2 REST with Oxygen] Oxygen Flow Rate (L/min) 2 Oxygen Delivery Method Nasal Cannula Weight: 72.892 kg Body Mass Index (BMI) 24.4 Intake & Output: Intake and Output for Last 24 Hours 06/15/22 06/16/22 06/17/22 23:59 23:59 23:59 Intake Total 2877.08 / 2877.08 3695.83 / 4095.83 1148.33 / 1148.33 Output Total 550 / 900 650 / 650 900 / 900 Balance 2327.08 / 1977.08 3045.83 / 3445.83 248.33 / 248.33 Medical Nutrition Assessment Dietitian: Malnutrition Criteria Met Start: 06/15/22 11:34 Freq: Status: Active Protocol: Document 06/15/22 11:35 SLA (Rec: 06/15/22 11:35 SLA Desktop) Nutrition Malnutrition Evidence of Malnutrition Exists Yes Malnutrition (severe): Acute Illness/Injury Evidenced By Suboptimal Energy Intake ( Severe),Weight Loss (Severe) Clinical Problem Acute Disease or Injury Related Malnutrition Etiology related to acute illness and inadequate energy intake Signs/Symptoms as evidenced by meeting <50% of est nutritional needs and 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 06/14/22 11:13 Blood Culture (Wb) - Venous Blood Culture - Preliminary No growth in 48 hours. 06/14/22 20:10 Sputum, Expectorated/Coughed Gram Stain - Final 06/14/22 20:10 Sputum, Expectorated/Coughed Respiratory Culture - Final Mixed normal respiratory monica. No Streptococcus pneumoniae, beta-hemolytic Streptococcus or Staphylococcus aureus isolated. 06/14/22 18:32 Urine, Clean Catch Urine Culture - Final Culture exhibits no growth. 06/15/22 09:20 Stool C. difficile DNA Amplification - Final 06/15/22 09:20 Stool Enteric Bacteriology - Final 06/15/22 00:53 Mucosa - Nasopharyngeal Respiratory Panel (PCR) - Final Adenovirus 06/14/22 18:32 Urine, Clean Catch Legionella Antigen - Final 06/14/22 18:32 Urine, Clean Catch Streptococcus pneumoniae Antigen (M - Final 06/14/22 11:22 Nasal Secretion SARS-CoV-2 & FLU Antigen (Rapid) - Final Rhythm Strip Rhythm Strip: Sinus Rhythm Rate: 90 Ectopy: None Physical Exam Narrative alert, oriented x3, no apparent distress and average body habitus General Appearance: cooperative, well kempt and well developed Orientation / Consciousness: awake, oriented to person, oriented to place and oriented to time HEENT normocephalic, head/scalp atraumatic and moist oral mucous membranes Eyes PERRL, EOMs intact bilaterally and conjunctivae normal Neck supple, no JVD, thyroid normal and no carotid bruits General: trachea midline Resp normal respiratory effort, no retractions, no use of accessory muscles and clear to auscultation bilaterally Resp Narrative: Expiratory wheezing was scattered over both lungs. Auscultation: wheezes; Negative for rales or rhonchi Cardio regular rate, regular rhythm, S1 normal heart sound, S2 normal heart sound, no murmurs, no rub and no gallops GI normal to inspection, nondistended, normoactive bowel sounds, soft to palpation, non-tender and non-distended Extremity no clubbing, cyanosis or edema Skin Skin Narrative: Patient has a skin lesion approximately 1 cm round on his right upper shoulder area, it appears to be eroding through the skin surface-he states it is a squamous cell cancer Neuro oriented x3, CN's II-XII intact bilaterally, moves all extremities, no focal motor deficits and no sensory deficits noted Sensorium / Orientation: awake, alert, oriented to person, oriented to place and oriented to time Speech: speech normal Psych affect normal Assessment & Plan Assessment/Plan (1) Acute bronchitis: (2) Dyspnea on exertion: PLAN: Plan 1. 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 #4 chronic bone pain secondary to #3-patient is on methadone for chronic pain #5 coronary artery disease-patient is on metoprolol currently as well as aspirin, Plavix, Lipitor, and Imdur. #6 hyperlipidemia-patient is on Lipitor #7 acute protein and caloric malnutrition-related to acute illness and an adequate energy intake as evidenced by meeting less than 50% of estimated nutritional needs and unintentional weight loss x1 week, 1800-calorie diet will be continued, 4 ounces of Glucerna shake 4 times a day with med Pass is being given #8 essential hypertension-poorly controlled at this time, I have added losartan today and increase the patient's metoprolol to 50 mg twice daily. He may need further adjustments of his medications at the time of discharge Total clinical time spent by myself addressing the patient's medical issues, reviewing all of his data, and collaborating with patient's care team: 35 minutes Charges/Coding Visit Charges Inpatient E&M: 10441 Subs Hosp L2
[2022-06-17 10:26] LABS: Anion Gap 7 (5-15); BUN 48 mg/dL (7-18); BUN/Creat Ratio 38.1 RATIO (10-20); Calcium,Total 8.4 mg/dL (8.5-10.1); Chloride 102 mmol/L (98-107); Creatinine, Serum 1.26 mg/dL (0.70-1.30); EST Glomerular Filtration Rate 61 mL/min (>60); Est Glom Filt Rate - Afr Amer 74 mL/min (>60); Estimated Creatinine Clearance 58.06 ml/min; Glucose 260 mg/dL (74-106); Potassium 3.8 mmol/L (3.5-5.1); Sodium Level 133 mmol/L (136-145)
[2022-06-17] MEDS: Metoprolol Tartrate 50 MG Tablet PO (11:35)
[2022-06-17] MEDS: Losartan Potassium 100 MG Tablet PO (11:35)
[2022-06-17] MEDS: Enoxaparin 40 MG/0.4 ML Syringe SC (11:35)
[2022-06-17] MEDS: Pantoprazole Sodium 40 MG Tablet PO (11:36)
[2022-06-17] MEDS: Sodium Chloride 1 GM Tablet PO (11:36)
[2022-06-17] MEDS: Allopurinol 100 MG Tablet PO (11:36)
[2022-06-17] MEDS: Isosorbide Mononitrate 60 MG Tablet PO (11:36)
[2022-06-17] MEDS: Famotidine 20 MG Tablet PO (11:36)
[2022-06-17 13:20] LABS: Bedside Glucose 242 mg/dL (74-106)
[2022-06-17] MEDS: Albuterol 2.5 MG/3 ML VIAL.NEB. INHALATION (14:01)
[2022-06-17] MEDS: 0.9% Saline Lock 10 ML Syringe IV (14:50)
--- NOTE | 2022-06-17 15:14 | PCM.DC ---
Discharge Instructions Diet Discharge Diet: No restrictions Activity Discharge Activity: Return to Normal Activity Weight Bearing Status: Weight bearing as tolerated Follow Up Care Test Results: Test results from this visit will be discussed in further detail at your follow-up appointment, if applicable. 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 20 mg tablet 20 mg PO BID (DME) lancets Misc See Rx Instructions .ROUTE .MEDSUPPLY Qty: 100 Rx Instructions: As directed (DME) blood ketone glucose monitor Device See Rx Instructions .ROUTE .MEDSUPPLY Qty: 1 Rx Instructions: As directed temazepam 15 mg capsule 15 mg PO QHS PRN (Reason: Insomnia) allopurinol 100 mg tablet 100 mg PO DAILY famotidine 40 mg tablet 40 mg PO DAILY Label Comments: TAKE 1 TABLET BY MOUTH EVERY DAY AT BEDTIME FOR 90 DAYS hydralazine 50 mg tablet 50 mg PO TID 90 Days Qty: 270 3RF aspirin 81 MG tablet 81 mg PO DAILY clopidogrel 75 MG tablet 75 mg PO QHS gabapentin 100 mg capsule 200 mg PO TID ondansetron HCl 4 mg Tablet 4 mg PO Q6H PRN (Reason: Nausea) sennosides-docusate sodium [Senexon-S] 8.6-50 mg tablet 2 tab PO QHS methadone 5 mg tablet 5 mg PO QHS oxycodone 10 mg tablet 10 mg PO Q4H PRN (Reason: Pain) Keytruda 25 mg/mL solution 25 mg IV .UD isosorbide mononitrate 60 mg tablet extended release 24 hr 60 mg PO BID tamsulosin 0.4 mg capsule 0.4 mg PO QHS ferrous fumarate [Ferrocite] 324 mg (106 mg iron) tablet 324 mg PO BID acetaminophen [Acetaminophen Extra Strength] 500 mg Tablet 500 mg PO Q6H PRN (Reason: Pain) pantoprazole 40 mg tablet,delayed release (DR/EC) 40 mg PO DAILY Label Comments: TAKE 1 TABLET BY MOUTH EVERY DAY ergocalciferol (vitamin D2) 1,250 mcg (50,000 unit) capsule 1,250 mcg PO SA Label Comments: TAKE 1 CAPSULE BY MOUTH WEEKLY FOR 90 DAYS atorvastatin 40 mg tablet 40 mg PO QHS Qty: 90 3RF Label Comments: have not been taking since 04/10--was told not to for 10 day since getting the covid vaccination furosemide 40 mg tablet 40 mg PO QHS Qty: 90 3RF Discontinued metoprolol tartrate 25 mg tablet 25 mg PO BID Referrals / Follow Up: Delgado Smith DO [Primary Care Provider] - Within 2 Weeks Disposition Disposition (needs filled in before D/C Order can be placed): Home Health Service
--- NOTE | 2022-06-17 15:24 | PCM.DC.SUM ---
Providers Date of Admission: 06/14/22 Date of Discharge: 06/17/22 Primary Care Physician: Dr. Delgado Smith DO Reason For Visit: RAFA DEHYDRATION FEVER Diagnosis Discharge Diagnosis (1) Acute bronchitis: Status: Acute Code(s): J20.9 - Acute bronchitis, unspecified (2) Dyspnea on exertion: Status: Acute Code(s): R06.00 - Dyspnea, unspecified Plan 1. 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 #4 chronic bone pain secondary to #3-patient is on methadone for chronic pain #5 coronary artery disease-patient is on metoprolol currently as well as aspirin, Plavix, Lipitor, and Imdur. #6 hyperlipidemia-patient is on Lipitor #7 acute protein and caloric malnutrition-related to acute illness and an adequate energy intake as evidenced by meeting less than 50% of estimated nutritional needs and unintentional weight loss x1 week, 1800-calorie diet will be continued, 4 ounces of Glucerna shake 4 times a day with med Pass is being given #8 essential hypertension-poorly controlled at this time, I have added losartan today and increase the patient's metoprolol to 50 mg twice daily. He may need further adjustments of his medications at the time of discharge Total clinical time spent by myself addressing the patient's medical issues, reviewing all of his data, and collaborating with patient's care team: 35 minutes Medications at Discharge Home Medications aspirin 81 mg tablet,delayed release 81 mg PO DAILY heart health 09/09/18 nitroglycerin 0.4 mg sublingual tablet 0.4 mg sublingual Q5M PRN Cardiac/Chest Pain #25 tabs 10/17/18 clopidogrel 75 mg tablet 75 mg PO QHS ANTIPLATELET 08/08/19 atorvastatin 40 mg tablet 40 mg PO QHS cholesterol #90 tabs 01/18/21 methadone 5 mg tablet 5 mg PO QHS PAIN 05/10/21 ondansetron HCl 4 mg tablet 4 mg PO Q6H PRN Nausea 05/10/21 sennosides 8.6 mg-docusate sodium 50 mg tablet (Senexon-S) 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 05/10/21 blood ketone glucose monitor #1 ea 06/06/21 lancets #100 ea 06/06/21 lisinopril 20 mg tablet 20 mg PO BID bp 06/13/21 allopurinol 100 mg tablet 100 mg PO DAILY gout 09/06/21 famotidine 40 mg tablet 40 mg PO DAILY GERD 09/13/21 gabapentin 100 mg capsule 200 mg PO TID NEUROPATHY 09/13/21 oxycodone 10 mg tablet 10 mg PO Q4H PRN Pain 09/13/21 pembrolizumab 25 mg/mL intravenous solution (Keytruda) 25 mg IV .UD CANCER 09/13/21 temazepam 15 mg capsule 15 mg PO QHS PRN Insomnia 09/13/21 ferrous fumarate 324 mg (106 mg iron) tablet (Ferrocite) 324 mg PO BID supplement 04/16/22 isosorbide mononitrate 60 mg tablet,extended release 24 hr 60 mg PO BID cp 04/16/22 tamsulosin 0.4 mg capsule 0.4 mg PO QHS prostate 04/16/22 hydralazine 50 mg tablet 50 mg PO TID 90 days #270 tabs 04/23/22 cephalexin 500 mg capsule 500 mg PO TID infection 05/16/22 furosemide 40 mg tablet 40 mg PO QHS water #90 tabs 06/12/22 acetaminophen 500 mg tablet (Acetaminophen Extra Strength) 500 mg PO Q6H PRN Pain 06/14/22 ergocalciferol (vitamin D2) 1,250 mcg (50,000 unit) capsule 1,250 mcg PO SA SUPPLEMENT 06/14/22 pantoprazole 40 mg tablet,delayed release 40 mg PO DAILY GERD 06/14/22 metoprolol tartrate 50 mg tablet 50 mg PO BID #60 tabs 06/17/22 prednisone 20 mg tablet 20 mg PO DAILY #5 tabs 06/17/22 Hospital Course Operations None Procedures None Summary of Care Provided Minutes Spent on Discharge: 32 Hospital Course: This 61-year-old white male was seen in the emergency room at [facility] with complaints of shortness of breath, fevers, and cough x3 days. Patient also complained of poor oral intake over 3 days prior and decreased urine output. Patient was extremely weak and not able to get up on his own, he had a fever of 102. Work-up in the emergency room included a chest x-ray which showed no pneumonia, patient's white blood cell count was normal at 7.9, he did require supplemental oxygen via nasal cannula to maintain his pulse ox above 90%. Patient's creatinine was elevated at 3.04 and BUN was elevated at 55. Patient was admitted for acute renal failure, generalized debility, and acute bronchitis as well as hypoxia. Patient received aerosol treatments, he was initially started on IV antibiotics but his respiratory panel resulted positive for adenovirus and his antibiotics were stopped. He was placed back on his maintenance Keflex which he takes 3 times daily chronically. Patient regained his strength over the next several days, he was weaned off oxygen. Patient's blood pressure medications were adjusted due to severe hypertension. On 06/17/2022, patient was seen and examined: On examination he appeared cachectic and older than his stated age. Vital signs as documented. Skin warm and dry and without overt rashes. Neck without JVD, neck was supple, trachea midline, thyroid was normal. Lungs clear bilaterally, normal air movement was noted. Heart exam notable for regular rhythm, normal sounds and absence of murmurs, rubs or gallops. Abdomen unremarkable and without evidence of organomegaly, masses, or abdominal aortic enlargement. Bowel sounds are present, abdomen is not distended. Extremities nonedematous, no cyanosis was noted, no clubbing was noted. Neuro: Cranial nerves II through XII are grossly intact, no focal motor deficits were noted, sensation to light touch and pinprick intact, motor exam 5/5 throughout. Psych: Patient is alert and oriented x3, he does not appear anxious or depressed, he does not appear agitated. On 06/17/2022, patient was seen and examined and felt to be in stable condition for discharge home Medical Records Data Medical Nutrition Assessment Dietitian: Malnutrition Criteria Met Start: 06/15/22 11:34 Freq: Status: Active Protocol: Document 06/15/22 11:35 SLA (Rec: 06/15/22 11:35 SLA Desktop) Nutrition Malnutrition Evidence of Malnutrition Exists Yes Malnutrition (severe): Acute Illness/Injury Evidenced By Suboptimal Energy Intake ( Severe),Weight Loss (Severe) Clinical Problem Acute Disease or Injury Related Malnutrition Etiology related to acute illness and inadequate energy intake Signs/Symptoms as evidenced by meeting <50% of est nutritional needs and 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 Status Active Problem Recommendation Dietitian Recommendations/Changes Will continue 1800 jimmy Consistent CHO diet - consider liberalize to Regular if po intake fails to improve Will order 4 oz glucerna shake 4x/day w/ medpass Weight / BMI Weight Weight: 72.892 kg Body Mass Index (BMI) 24.4 ABG / Lab / Microbiology Data Result Diagrams: 06/16/22 06:54 06/17/22 09:35 Laboratory: Laboratory Results - last 24 hr 06/16/22 16:09: POC Glucose 297 H 06/17/22 06:09: POC Glucose 304 H 06/17/22 09:35: Sodium 133 L, Potassium 3.8, Chloride 102, Carbon Dioxide 24.0, Anion Gap 7, BUN 48 H, Creatinine 1.26, Estim Creat Clear Calc 58.06, Est GFR (MDRD) Af Amer 74, Est GFR (MDRD) Non-Af 61, BUN/Creatinine Ratio 38.1 H, Glucose 260 H, Calcium 8.4 L 06/17/22 12:34: POC Glucose 242 H Microbiology: Microbiology 06/14/22 11:22 Blood Culture (Wb) - Right Forearm Blood Culture - Preliminary No growth in 48 hours. 06/14/22 11:13 Blood Culture (Wb) - Venous Blood Culture - Preliminary No growth in 48 hours. 06/14/22 20:10 Sputum, Expectorated/Coughed Gram Stain - Final 06/14/22 20:10 Sputum, Expectorated/Coughed Respiratory Culture - Final Mixed normal respiratory monica. No Streptococcus pneumoniae, beta-hemolytic Streptococcus or Staphylococcus aureus isolated. 06/14/22 18:32 Urine, Clean Catch Urine Culture - Final Culture exhibits no growth. 06/15/22 09:20 Stool C. difficile DNA Amplification - Final 06/15/22 09:20 Stool Enteric Bacteriology - Final 06/15/22 00:53 Mucosa - Nasopharyngeal Respiratory Panel (PCR) - Final Adenovirus 06/14/22 18:32 Urine, Clean Catch Legionella Antigen - Final 06/14/22 18:32 Urine, Clean Catch Streptococcus pneumoniae Antigen (M - Final 06/14/22 11:22 Nasal Secretion SARS-CoV-2 & FLU Antigen (Rapid) - Final D/C Instructions Discharge Diet: No restrictions Weight Bearing Status: Weight bearing as tolerated Meaningful Use Info Meaningful Use Diagnoses (Choose all that apply): None applicable Discharge Plan Admission Admit Date/Time: 06/14/22 14:25 Primary Reason for Your Visit: hypoxia, adenoviral bronchitis, acute kidney injury Attending Provider: Carrillo Caal Primary Care Provider: Delgado Smith Consulting Providers: Suki Dasilva Discharge Orders/Prescriptions Prescriptions: New metoprolol tartrate 50 mg Tablet 50 mg PO BID Qty: 60 0RF prednisone 20 mg tablet 20 mg PO DAILY Qty: 5 0RF Continued nitroglycerin 0.4 mg tablet, sublingual 0.4 mg sublingual Q5M PRN (Reason: Cardiac/Chest Pain) Qty: 25 6RF cephalexin 500 mg capsule 500 mg PO TID Label Comments: 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 lisinopril 20 mg tablet 20 mg PO BID (DME) lancets Misc See Rx Instructions .ROUTE .MEDSUPPLY Qty: 100 Rx Instructions: As directed (DME) blood ketone glucose monitor Device See Rx Instructions .ROUTE .MEDSUPPLY Qty: 1 Rx Instructions: As directed temazepam 15 mg capsule 15 mg PO QHS PRN (Reason: Insomnia) allopurinol 100 mg tablet 100 mg PO DAILY famotidine 40 mg tablet 40 mg PO DAILY Label Comments: TAKE 1 TABLET BY MOUTH EVERY DAY AT BEDTIME FOR 90 DAYS hydralazine 50 mg tablet 50 mg PO TID 90 Days Qty: 270 3RF aspirin 81 MG tablet 81 mg PO DAILY clopidogrel 75 MG tablet 75 mg PO QHS gabapentin 100 mg capsule 200 mg PO TID ondansetron HCl 4 mg Tablet 4 mg PO Q6H PRN (Reason: Nausea) sennosides-docusate sodium [Senexon-S] 8.6-50 mg tablet 2 tab PO QHS methadone 5 mg tablet 5 mg PO QHS oxycodone 10 mg tablet 10 mg PO Q4H PRN (Reason: Pain) Keytruda 25 mg/mL solution 25 mg IV .UD isosorbide mononitrate 60 mg tablet extended release 24 hr 60 mg PO BID tamsulosin 0.4 mg capsule 0.4 mg PO QHS ferrous fumarate [Ferrocite] 324 mg (106 mg iron) tablet 324 mg PO BID acetaminophen [Acetaminophen Extra Strength] 500 mg Tablet 500 mg PO Q6H PRN (Reason: Pain) pantoprazole 40 mg tablet,delayed release (DR/EC) 40 mg PO DAILY Label Comments: TAKE 1 TABLET BY MOUTH EVERY DAY ergocalciferol (vitamin D2) 1,250 mcg (50,000 unit) capsule 1,250 mcg PO SA Label Comments: TAKE 1 CAPSULE BY MOUTH WEEKLY FOR 90 DAYS atorvastatin 40 mg tablet 40 mg PO QHS Qty: 90 3RF Label Comments: have not been taking since 04/10--was told not to for 10 day since getting the covid vaccination furosemide 40 mg tablet 40 mg PO QHS Qty: 90 3RF Discontinued metoprolol tartrate 25 mg tablet 25 mg PO BID Referrals / Follow Up: Delgado Smith DO [Primary Care Provider] - Within 2 Weeks Disposition Disposition (needs filled in before D/C Order can be placed): Home Health Service Charges/Coding Visit Charges Inpatient E&M: 24641 Disch Hosp >30min
--- NOTE | 2022-06-18 11:38 | CASEMGMT ---
Received message from [facility] via [facility], they are able to accept pt. Attached dc instructions in careport. TC to pt, he is aware that [facility] has accepted and will in touch with him soon.
== END 2022-06-17 17:39 | disposition home health service (06) | DRG 683 ==
LOC: ED 13:45 → MS3 14:26
PROVIDERS: Admitting Provider Internal Medicine; Emergency Provider Emergency Medicine; PCP Family Medicine; Visit Provider Internal Medicine
DX: N17.9 Acute kidney failure, unspecified (principal); E46 Unspecified protein-calorie malnutrition; C79.51 Secondary malignant neoplasm of bone; E87.1 Hypo-osmolality and hyponatremia; E87.20 Acidosis, unspecified; I50.32 Chronic diastolic (congestive) heart failure; E11.610 Type 2 diabetes mellitus with diabetic neuropathic arthropathy; B97.0 Adenovirus as the cause of diseases classified elsewhere; C76.0 Malignant neoplasm of head, face and neck; I11.0 Hypertensive heart disease with heart failure; E11.40 Type 2 diabetes mellitus with diabetic neuropathy, unspecified; D69.59 Other secondary thrombocytopenia; E78.5 Hyperlipidemia, unspecified; I25.10 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of native coronary artery without angina pectoris; J20.9 Acute bronchitis, unspecified; R00.1 Bradycardia, unspecified; D64.9 Anemia, unspecified; M10.9 Gout, unspecified; G89.3 Neoplasm related pain (acute) (chronic); R09.02 Hypoxemia; Z68.24 Body mass index [BMI] 24.0-24.9, adult; Z95.1 Presence of aortocoronary bypass graft; Z95.5 Presence of coronary angioplasty implant and graft; Z91.14 Patient's other noncompliance with medication regimen; Z79.02 Long term (current) use of antithrombotics/antiplatelets; Z79.82 Long term (current) use of aspirin; Z79.891 Long term (current) use of opiate analgesic; Z79.899 Other long term (current) drug therapy
CPT/HCPCS: 36415; 71046; 80048; 80053; 81001; 82550; 82962; 83605; 83735; 84100; 85025; 85610; 85730; 87040; 87070; 87086; 87205; 87428; 87449; 87493; 87506; 87633; 87635; 93005; 94640; 94668; 97110; 97162; 97530; 97802; 99252; 99285; J7030; J7120; A4216; G0463; U0003; U0005

== ENCOUNTER 2022-06-29 14:48 | Emergency (ER) | payer MEDICARE, SELFPAY ==
[2022-06-29] VITALS (11 sets, daily range): BP systolic 137–214; BP diastolic 60–101; PULSE 73–90; RESP 17–27; TEMP 36.8; O2SAT 92–98; BMI 27.5
--- NOTE | 2022-06-29 15:00 | ED.RN ---
Went to physicians room to let the physicians know I was concerned for this pt and needed a doctor. physicians aware.
--- NOTE | 2022-06-29 15:15 | ED.RN ---
Addendum entered by Raquel Ott 06/29/22 17:38: that is to say pt is not verbal Original Note: pt know verbal, unable to follow command. unable to perform tasks on nih
--- NOTE | 2022-06-29 15:19 | CT_ITS ---
STUDY: CT BRAIN WITHOUT CONTRAST REASON FOR EXAM: Male, 61 years old. Neuro deficit, acute, stroke suspected RADIATION DOSAGE (If Supplied By Facility): CTDIvol = ( ) mGy, DLP = ( 1886 ) mGycm TECHNIQUE: Transaxial CT imaging of the brain was performed without administration of intravenous contrast material. Individualized dose optimization techniques were used for this CT. COMPARISON: April 16, 2022. FINDINGS: Normal soft tissue structures. Normal calvarium. There is moderate cerebral atrophy with widening of the extra-axial spaces and ventricular dilatation. There are areas of decreased attenuation within the white matter tracts of the supratentorial brain, consistent with microvascular disease changes. Normal basal ganglia and thalami. Normal brainstem. Normal cerebellum. There is no intracranial hemorrhage. There is increased density of the left middle cerebral artery consistent with thrombus. Mucosal thickening of the left maxillary sinus. CT/STROKE Brain/Head without Cont IMPRESSION: Chronic involutional changes of the brain. Dense left middle cerebral artery sign consistent with thrombus. N.B. : The above Results were Read Back by Jewel Ho MD to Hemant Perez DO, and understanding confirmed on 06/29/2022 15:47:25 (ET). Electronically Signed: Jewel Ho MD at 15:48 EDT ,
--- NOTE | 2022-06-29 15:19 | EKG12_ITS ---
Test Reason : STROKE Blood Pressure : / mmHG Vent. Rate : 083 BPM Atrial Rate : 083 BPM P-R Int : 174 ms QRS Dur : 082 ms QT Int : 414 ms P-R-T Axes : 074 050 -02 degrees QTc Int : 486 ms Normal sinus rhythm with sinus arrhythmia Prolonged QT Abnormal ECG Confirmed by PHYLLIS GILLILAND, WALDO ([id number]), newspaper copy editor GALINDO BECKFORD ([id number]) on 07/02/2022 12:23:27 P M Referred By: KENYATTA/CHOCO Confirmed By:MJ FERGUSON MD
--- NOTE | 2022-06-29 15:19 | CT_ITS ---
STUDY: CTA HEAD AND NECK WITH CONTRAST REASON FOR EXAM: Male, 61 years old. Neuro deficit, acute, stroke suspected RADIATION DOSAGE (If Supplied By Facility): CTDIvol = ( 24.04 ) mGy, DLP = ( 978.64 ) mGycm TECHNIQUE: CT angiography was performed with a multi-detector CT scanner. Data acquisition was obtained from the skull base through the vertex following intravenous administration of 100mL Isovue-370. MIP images were reconstructed from the axial data set. Post-processing of the angiographic images was performed, with multiplanar reformation and 3D reconstruction. Individualized dose optimization techniques were used for this CT. COMPARISON: No relevant priors. FINDINGS: Normal bilateral petrous carotid arteries. There is calcified plaque formation of the right cavernous carotid artery, without a cross-sectional luminal stenosis. There is calcified plaque formation of the left cavernous carotid artery, without a cross-sectional luminal stenosis. Normal right A1 segments of the anterior cerebral artery. Normal left A1 segments of the anterior cerebral artery. Normal intact anterior communicating artery (ACOM). Normal bilateral A2 segments of the anterior cerebral arteries. Normal right M1 and M2 segments of the middle cerebral arteries, with a normal M1 bifurcation. There is occlusion of the left M1 segment of the middle cerebral artery with partial reconstitution of flow distally.. There is non-visualization of the right posterior communicating artery (PCOM). There is a persistent origin of the left posterior cerebral artery with absence of the posterior communicating artery (PCOM). Normal bilateral vertebral arteries. Normal basilar artery with a normal basilar bifurcation. The visualized bilateral superior cerebellar (SCA) arteries are normal. Normal bilateral P1, P2 and visualized P3 segments of the posterior cerebral arteries. There is no demonstrated aneurysm of the [place] of [place]. There is no acute abnormality of the visualized brain. AORTIC ARCH: There is atherosclerotic calcific plaque formation of the aortic arch and great vessels arising from the aortic arch, without a hemodynamically significant stenosis. There is a normal origin of the brachiocephalic, left common carotid, and left subclavian arteries. RIGHT CAROTID ARTERIES: There is atherosclerotic plaque formation of the common carotid artery, but without a hemodynamically significant stenosis. There is mild atherosclerotic plaque formation with minimal narrowing of the right carotid bulb. There is mild atherosclerotic plaque formation of the origin of the right internal carotid artery with less than 50% cross sectional diameter stenosis. Normal visualized cervical portion of the right internal carotid artery. Normal origin of the right external carotid artery (ECA). LEFT CAROTID ARTERIES: There is atherosclerotic plaque formation of the common carotid artery, but without a hemodynamically significant stenosis. There is mild atherosclerotic plaque formation with minimal narrowing of the left carotid bulb. There is mild atherosclerotic plaque formation of the origin of the left internal carotid artery with less than 50% cross sectional diameter stenosis. Normal visualized cervical portion of the left internal carotid artery. Normal origin of the left external carotid artery (ECA). VERTEBRAL ARTERIES: Normal bilateral vertebral arteries. CT/STROKE CTA Head AND Neck W/Con IMPRESSION: Left middle cerebral artery occlusion. Mild, less than 50%, narrowing of the internal carotid arteries. N.B. : The above Results were Read Back by Jewel Ho MD to Hemant Perez and understanding confirmed on 06/29/2022 15:54:19 (ET). Electronically Signed: Jewel Ho MD at 15:55 EDT ,
--- NOTE | 2022-06-29 15:21 | EDS_ITS ---
HPI History of Present Illness Chief Complaint: Alt LOC Narrative Narrative: 61-year-old male presenting with altered mental status. states she was talking to him on the phone at 1305. He had told her to come home because there was some kind of car issue. When she came home he was at his desk laying down with his head on the desk. He was confused. Patient's called 911. This was about 1400. When they arrived they gave him 2 rounds of Narcan because he is on 10 mg of oxycodone every 4 hours as needed pain and also receives methadone 5 mg nightly. He is also on gabapentin. This is for chronic pain. Patient has metastatic squamous cell carcinoma. He sees Dr. Carrera. He is unable to speak. He does not follow commands. His eyes are open and he is mumbling incoherently. Of note the patient did present similarly in April. At that point his had given him CPR and he was admitted to the hospital [facility] Medical History Abdominal pain Acute bronchitis RAFA (acute kidney injury) Alcohol abuse Anemia Atherosclerosis of coronary artery without angina pectoris 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[place] coronary artery w/angina pectoris Bacteremia Bone cancer Bradycardia Cataracts, both eyes Charcot's joint, left ankle and foot Chronic diastolic (congestive) heart failure Chronic pain Diabetes mellitus, type II Diabetic retinopathy Diastolic dysfunction with acute on chronic heart failure Essential hypertension GERD (gastroesophageal reflux disease) Hammer toe of left foot HLD (hyperlipidemia) Hyponatremia Infection of left foot Iron deficiency anemia 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 MSSA bacteremia Nephrotic syndrome Neuropathy Non-smoker Normocytic anemia Obesity (BMI 30.0-34.9) Osteomyelitis PAD (peripheral artery disease) Postoperative atrial fibrillation (06/12/18) 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) Secondary pulmonary arterial hypertension Sinus bradycardia Syncope Type 2 diabetes mellitus Ulcer of left foot Home Medications aspirin 81 mg tablet,delayed release 81 mg PO DAILY heart health 09/09/18 [History Last Taken 06/13/22] nitroglycerin 0.4 mg sublingual tablet 0.4 mg sublingual Q5M PRN Cardiac/Chest Pain #25 tabs 10/17/18 [Rx Last Taken 08/08/19] clopidogrel 75 mg tablet 75 mg PO QHS ANTIPLATELET 08/08/19 [History Last Taken 06/13/22] atorvastatin 40 mg tablet 40 mg PO QHS cholesterol #90 tabs 01/18/21 [Rx Last Taken 06/13/22] methadone 5 mg tablet 5 mg PO QHS PAIN 05/10/21 [History Last Taken 06/13/22] ondansetron HCl 4 mg tablet 4 mg PO Q6H PRN Nausea 05/10/21 [History Last Taken 05/10/21] sennosides 8.6 mg-docusate sodium 50 mg tablet (Senexon-S) 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 05/10/21 [History Last Taken 06/13/22] blood ketone glucose monitor #1 ea 06/06/21 [History Last Taken Unknown] lancets #100 ea 06/06/21 [History Last Taken Unknown] lisinopril 20 mg tablet 20 mg PO BID bp 06/13/21 [History Last Taken 06/13/22] allopurinol 100 mg tablet 100 mg PO DAILY gout 09/06/21 [History Last Taken 06/13/22] famotidine 40 mg tablet 40 mg PO DAILY GERD 09/13/21 [History Last Taken 06/13/22] gabapentin 100 mg capsule 200 mg PO TID NEUROPATHY 09/13/21 [History Last Taken 06/13/22] oxycodone 10 mg tablet 10 mg PO Q4H PRN Pain 09/13/21 [History Last Taken 06/14/22 06:00] pembrolizumab 25 mg/mL intravenous solution (Keytruda) 25 mg IV .UD CANCER 09/13/21 [History Last Taken 06/06/22] temazepam 15 mg capsule 15 mg PO QHS PRN Insomnia 09/13/21 [History Last Taken 06/13/22] ferrous fumarate 324 mg (106 mg iron) tablet (Ferrocite) 324 mg PO BID supplement 04/16/22 [History Last Taken 06/13/22] isosorbide mononitrate 60 mg tablet,extended release 24 hr 60 mg PO BID cp 04/16/22 [History Last Taken 06/13/22] tamsulosin 0.4 mg capsule 0.4 mg PO QHS prostate 04/16/22 [History Last Taken 06/13/22] hydralazine 50 mg tablet 50 mg PO TID 90 days #270 tabs 04/23/22 [Rx Last Taken 06/13/22] cephalexin 500 mg capsule 500 mg PO TID infection 05/16/22 [History Last Taken 06/13/22] furosemide 40 mg tablet 40 mg PO QHS water #90 tabs 06/12/22 [Rx Last Taken 06/13/22] acetaminophen 500 mg tablet (Acetaminophen Extra Strength) 500 mg PO Q6H PRN Pain 06/14/22 [History Last Taken 06/13/22] ergocalciferol (vitamin D2) 1,250 mcg (50,000 unit) capsule 1,250 mcg PO SA SUPPLEMENT 06/14/22 [History Last Taken 06/09/22] pantoprazole 40 mg tablet,delayed release 40 mg PO DAILY GERD 06/14/22 [History Last Taken 06/13/22] metoprolol tartrate 50 mg tablet 50 mg PO BID #60 tabs 06/17/22 [Rx Last Taken Unknown] prednisone 20 mg tablet 20 mg PO DAILY #5 tabs 06/17/22 [Rx Last Taken Unknown] sodium chloride 1,000 mg soluble tablet ea PO 06/27/22 [History Last Taken Unknown] Allergy/AdvReac Type Severity Reaction Status Date / Time Penicillins [PCN] Allergy Unknown Verified 06/29/22 15:08 morphine AdvReac Mild confusion Verified 06/29/22 15:08 Family History Mother Diabetes Parkinson disease Grandmother Cancer Surgical History Amputated toe of left foot (08/2018) H/O coronary artery bypass surgery (06/12/18) H/O eye surgery History of left heart catheterization (05/20/18) Hx of cholecystectomy S/P meniscectomy Social History household members: spouse Smoking Status: Never smoker alcohol intake: current alcohol intake frequency: a few times a week substance use type: does not use caffeine: No ROS ROS ED Review of Systems ROS Unobtainable: due to mental condition and due to mental status EXAM Physical Exam Const Vital Signs: 06/29/22 14:56 06/29/22 15:21 06/29/22 15:49 Temperature 98.2 F Temperature Source Temporal Pulse Rate 88 85 Respiratory Rate 24 H 21 H Blood Pressure 214/95 H 203/92 H Blood Pressure Mean 134 129 Blood Pressure Source Blood Pressure Position Blood Pressure Location Pulse Ox 97 97 Oxygen Delivery Method Nasal Cannula Nasal Cannula Nasal Cannula Oxygen Flow Rate (L/min) 8 6 06/29/22 15:49 06/29/22 16:03 06/29/22 16:00 Temperature Temperature Source Pulse Rate 85 90 Respiratory Rate 17 24 H Blood Pressure 193/85 H 183/101 H 183/101 H Blood Pressure Mean 121 128 Blood Pressure Source Blood Pressure Position Blood Pressure Location Pulse Ox 94 98 Oxygen Delivery Method Nasal Cannula Nasal Cannula Oxygen Flow Rate (L/min) 4 4 06/29/22 15:45 06/29/22 16:00 06/29/22 16:15 Temperature Temperature Source Pulse Rate 86 80 84 Respiratory Rate 19 H 19 H 20 H Blood Pressure 192/96 H 183/101 H 161/75 H Blood Pressure Mean 128 128 103 Blood Pressure Source Monitor Blood Pressure Position Semi-Fowlers Blood Pressure Location Left Arm Pulse Ox 98 98 97 Oxygen Delivery Method Nasal Cannula Nasal Cannula Nasal Cannula Oxygen Flow Rate (L/min) 4 4 4 06/29/22 16:30 06/29/22 16:45 06/29/22 16:43 Temperature Temperature Source Pulse Rate 74 73 73 Respiratory Rate 20 H 27 H 27 H Blood Pressure 139/68 H 137/60 H 137/60 H Blood Pressure Mean 91 85 85 Blood Pressure Source Monitor Blood Pressure Position Semi-Fowlers Blood Pressure Location Left Arm Pulse Ox 93 96 96 Oxygen Delivery Method Nasal Cannula Simple Mask Nasal Cannula Oxygen Flow Rate (L/min) 4 8 4 06/29/22 17:00 Temperature Temperature Source Pulse Rate 73 Respiratory Rate 18 Blood Pressure 142/64 H Blood Pressure Mean 90 Blood Pressure Source Blood Pressure Position Blood Pressure Location Pulse Ox 92 Oxygen Delivery Method Oxygen Flow Rate (L/min) Positive well nourished General Appearance ED: NAD HEENT Reports moist mucous membranes Eyes PERRL and EOMs intact bilaterally Resp normal respiratory effort Extremity Extremity Narrative: Deformity of the left foot with known history of Charcot foot Skin Skin Narrative: Facial abrasion overlying right tibia distally. NIHSS NIHSS Initial: 1a Level of Consciousness: 2 1b LOC Questions (Score 2 if aphasic/stupor): 2 1c LOC Commands (Only score 1st attempt): 2 2 Best Gaze (If aphasic, use reflexive mvmts.): 1 3 Visual: 0 4 Facial Palsy: 0 5 Motor Arm Right (UN = amputation/fusion): 2 5 Motor Arm Left: 2 6 Motor Leg Right: 2 6 Motor Leg Left: 2 7 Limb ataxia (Only + if out of proportion): 0 8 Sensory (Aphasia/stupor=0 or 1, coma=2): 0 9 Best Language: 2 10 Dysarthria (mute, coma=2, intubated=UN): 2 11 Extinction and Inattention (only scored if +): 0 Total Score: 19 MDM MDM MDM Narrative Medical decision making narrative: Patient presenting with altered mental status. NIH stroke scale score of 19. The patient had received Narcan prior to coming into the ER and his states that it has not changed anything. He is exactly the same as he was when she found him. Arrival blood pressure 214/95. After my exam stroke team was called. Patient was taken over to CT. Labetalol was ordered because his blood pressure was elevated. Nurse instructed to give this upon return. Repeat blood pressure is 193/85. Patient has no change in his exam. Review the medical record does show that he came in the past with altered mental status which had resolved on its own. He also sees Dr. Carrera for metastatic squamous cell carcinoma. No known mets to the brain. I was informed after the patient returned from CT that the neurologist from [facility] was in his car and would be calling in 5 to 10 minutes. During this timeframe the radiologist called me to tell me it looks like he has a dense region on the left in the MCA. He had stated to me at this time that the CTA had come through it it does look like a MCA occlusion. Risk benefits were discussed with the , her sister, neurologist all in the room. Patient's states that she does want the tenecteplase to be given. She understands the risk that he could possibly have bleeding. Patient's blood pressure was improved to 183/101. Tenecteplase will be given. We will control his blood pressure was Cardene for now. CBC was obtained and shows white blood cell count of 7.5. Hemoglobin 10.0 which slight ly elevated for him. Platelets are normal at 225. Total bilirubin 1.10 which is slightly elevated. His alkaline phosphatase 130, AST 43, direct bilirubin 1.33, total bilirubin. Renal function and electrolytes are normal. EKG is sinus rhythm with a ventricular of 83 bpm with prolonged QTc of 414/QTc 486. MT interval 104 ms, QRS 82 ms. High-sensitivity troponin returned 6742. [facility] returned my phone call at approximately 1605. They stated that midflight was not flying and we are currently looking for transport. Patient does appear to be improving. He is now answering to his name he does turn his head. Was informed that transport was found and would arrive in about 15 minutes. I was called to the room because the patient had seen like he was more tired. He is less responsive. He still does kind of arouse to his name but it is definitely decreased. He was sent to CT for repeat CT scan to make sure he did not have an acute bleed. The radiologist thinks this point interpreted this as no acute process. The CT does not look much changed to me and the first 1 was interpreted as an MCA infarct. Transport was finally here. I gave him instructions for Cardene to be given if his blood pressure is elevated during the route but his blood pressure has been traumatically improved. Patient's family was given instructions on where to go. Impression: 1. Acute left MCA occlusion 2. Altered mental status 3. NSTEMI Lab Data Labs: Laboratory Results - last 24 hr 06/29/22 06/29/22 06/29/22 14:58 14:58 14:58 WBC 7.5 RBC 3.12 L Hgb 10.0 L Hct 29.8 L MCV 95.5 H MCH 32.1 H MCHC 33.6 D RDW Std Deviation 44.2 H RDW Coeff of Dipti 12.7 Plt Count 225 MPV 10.7 Immature Gran % (Auto) 1.200 H Neut % (Auto) 73.4 H Lymph % (Auto) 10.4 L [place] % (Auto) 13.4 H Eos % (Auto) 1.3 Baso % (Auto) 0.3 Absolute Neuts (auto) 5.5 Absolute Lymphs (auto) 0.78 L Nucleated RBC % 0 PT 13.8 INR 1.1 APTT 39.3 H Sodium 137 Potassium 3.7 Chloride 101 Carbon Dioxide 27.0 Anion Gap 9 BUN 18 Creatinine 1.13 Estim Creat Clear Calc 64.73 Est GFR (MDRD) Af Amer 84 Est GFR (MDRD) Non-Af 70 BUN/Creatinine Ratio 15.9 Glucose 139 H Calcium 8.7 Total Bilirubin 1.10 H Direct Bilirubin 0.33 H AST 43 H ALT 22 Alkaline Phosphatase 130 H Troponin I High Sens 6742 H* Total Protein 7.4 Albumin 3.2 Globulin 4.2 Radiography Diagnostic Testing: Clinical Impression(s) from Imaging Studies Brain CT 06/29/22 15:19 IMPRESSION: Chronic involutional changes of the brain. Dense left middle cerebral artery sign consistent with thrombus. N.B. : The above Results were Read Back by Jewel Ho MD to Hemant Perez DO, and understanding confirmed on 06/29/2022 15:47:25 (ET). Electronically Signed: Jewel Ho MD at 15:48 EDT Reading Location ID and State: [facility] / [place] , Service support , ADDENDUM: 06/29/22 1555 IMPRESSION: Chronic involutional changes of the brain. Dense left middle cerebral artery sign consistent with thrombus. N.B. : The above Results were Read Back by Jewel Ho MD to Hemant Perez DO, and understanding confirmed on 06/29/2022 15:47:25 (ET). Electronically Signed: Jewel Ho MD at 15:48 EDT , Head/Neck CTA 06/29/22 15:19 IMPRESSION: Left middle cerebral artery occlusion. Mild, less than 50%, narrowing of the internal carotid arteries. N.B. : The above Results were Read Back by Jewel Ho MD to Hemant Perez and understanding confirmed on 06/29/2022 15:54:19 (ET). Electronically Signed: Jewel Ho MD at 15:55 EDT , ADDENDUM: 06/29/22 1602 IMPRESSION: Left middle cerebral artery occlusion. Mild, less than 50%, narrowing of the internal carotid arteries. N.B. : The above Results were Read Back by Jewel Ho MD to Hemant Perez and understanding confirmed on 06/29/2022 15:54:19 (ET). Electronically Signed: Jewel Ho MD at 15:55 EDT , Brain CT 06/29/22 16:54 IMPRESSION: No acute intracranial abnormality. Chronic involutional and ischemic changes of the brain. 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 lisinopril 20 mg tablet 20 mg PO BID (DME) lancets Misc See Rx Instructions .ROUTE .MEDSUPPLY Qty: 100 Rx Instructions: As directed (DME) blood ketone glucose monitor Device See Rx Instructions .ROUTE .MEDSUPPLY Qty: 1 Rx Instructions: As directed temazepam 15 mg capsule 15 mg PO QHS PRN (Reason: Insomnia) allopurinol 100 mg tablet 100 mg PO DAILY famotidine 40 mg tablet 40 mg PO DAILY Label Comments: TAKE 1 TABLET BY MOUTH EVERY DAY AT BEDTIME FOR 90 DAYS hydralazine 50 mg tablet 50 mg PO TID 90 Days Qty: 270 3RF sodium chloride 1,000 mg tablet,soluble PO Label Comments: TAKE 1 TABLET BY MOUTH 1 TO 4 TIMES DAILY NEEDED FOR ELECTROLYTE REPLENISHMENT aspirin 81 MG tablet 81 mg PO DAILY clopidogrel 75 MG tablet 75 mg PO QHS gabapentin 100 mg capsule 200 mg PO TID ondansetron HCl 4 mg Tablet 4 mg PO Q6H PRN (Reason: Nausea) sennosides-docusate sodium [Senexon-S] 8.6-50 mg tablet 2 tab PO QHS methadone 5 mg tablet 5 mg PO QHS oxycodone 10 mg tablet 10 mg PO Q4H PRN (Reason: Pain) Keytruda 25 mg/mL solution 25 mg IV .UD isosorbide mononitrate 60 mg tablet extended release 24 hr 60 mg PO BID tamsulosin 0.4 mg capsule 0.4 mg PO QHS ferrous fumarate [Ferrocite] 324 mg (106 mg iron) tablet 324 mg PO BID acetaminophen [Acetaminophen Extra Strength] 500 mg Tablet 500 mg PO Q6H PRN (Reason: Pain) pantoprazole 40 mg tablet,delayed release (DR/EC) 40 mg PO DAILY Label Comments: TAKE 1 TABLET BY MOUTH EVERY DAY ergocalciferol (vitamin D2) 1,250 mcg (50,000 unit) capsule 1,250 mcg PO SA Label Comments: TAKE 1 CAPSULE BY MOUTH WEEKLY FOR 90 DAYS metoprolol tartrate 50 mg Tablet 50 mg PO BID Qty: 60 0RF prednisone 20 mg tablet 20 mg PO DAILY Qty: 5 0RF atorvastatin 40 mg tablet 40 mg PO QHS Qty: 90 3RF Label Comments: have not been taking since 04/10--was told not to for 10 day since getting the covid vaccination furosemide 40 mg tablet 40 mg PO QHS Qty: 90 3RF Primary Care Provider: Delgado Smith Referrals: Delgado Smith DO [Primary Care Provider] - Disposition Disposition: Acute Care Hospital Discharge Location: [facility] Discharge Date/Time: 06/29/22 17:15
[2022-06-29] MEDS: Labetalol (Prefilled) 20 MG/4 ML IV (15:38)
[2022-06-29 15:39] LABS: Absolute Lymphocyte Count 0.78 X10^3/uL (0.83-4.51); Absolute Neutrophil Count 5.5 X10^3/uL (2.0-7.7); Basophil# 0.02 X10^3/uL; Basophil% 0.3 % (0-1); Eosinophils% 1.3 % (0-5); Hematocrit 29.8 % (40-54); Lymphocyte # 0.78 X10^3/ul (0.83-4.51); Lymphocyte % 10.4 % (19-41); Mean Corp Hgb Conc 33.6 g/dL (32-36); Mean Corpuscular Hgb 32.1 pg (27.0-32.0); Mean Corpuscular Volume 95.5 fL (80-94); Mean Platelet Vol. 10.7 fl (6.2-12.0); Monocyte# 1.01 X10^3/uL; Monocyte% 13.4 % (0-10); NRBC Flagged by Analyzer 0 % (0-5); Neutrophil # 5.52 X10^3/uL (2.7-7.7); Neutrophil % 73.4 % (47-70); Platelet Count 225 K/mm3 (150-450); RBC Distribution Width CV 12.7 % (11.6-14.6); RBC Distribution Width SD 44.2 fl (35.1-43.9); Red Blood Count 3.12 M/mm3 (4.6-6.2); White Blood Count 7.5 K/mm3 (4.4-11.0)
--- NOTE | 2022-06-29 15:57 | CM.ED ---
Social Work Note Referral Source: Stroke alert Referral Reason: emotional support SW responded to stroke alert and introduced herself and role as [facility] Health Information Managers to patient's and patient's 's sister. SW briefly reviewed procedures after a stroke alert is called and provided patient's with emotional support. Patient's reviewed medical history with RN and inquired about patient needing to be transferred to another hospital. SW explained the ED MD will consult with [facility] for recommendations regarding patient's care. Patient's voiced no other needs at this time and has her sister present for support. SW remains available if needs arise. Haritha Hernandez SHAREPOINT CONSULTANT, CINTHYA
[2022-06-29] MEDS: Nicardipine HCl-0.9% Sod Chlor 20 MG/200 ML IV.SOLN 50 MG CONT INF (16:00)
[2022-06-29 16:01] LABS: AST(SGOT) 43 U/L (15-37); Alanine Aminotransfer ALT/SGPT 22 U/L (16-61); Albumin, Serum 3.2 g/dL (3.2-5.0); Alkaline Phosphatase 130 U/L (45-117); Anion Gap 9 (5-15); BUN 18 mg/dL (7-18); BUN/Creat Ratio 15.9 RATIO (10-20); Bilirubin, Direct 0.33 mg/dL (0.00-0.30); Calcium,Total 8.7 mg/dL (8.5-10.1); Chloride 101 mmol/L (98-107); Creatinine, Serum 1.13 mg/dL (0.70-1.30); EST Glomerular Filtration Rate 70 mL/min (>60); Est Glom Filt Rate - Afr Amer 84 mL/min (>60); Estimated Creatinine Clearance 64.73 ml/min; Globulin 4.2 g/dL (2.2-4.2); Glucose 139 mg/dL (74-106); Potassium 3.7 mmol/L (3.5-5.1); Protein, Total 7.4 g/dL (6.4-8.2); Sodium Level 137 mmol/L (136-145); Troponin-I HS 6742 pg/mL (3.0-78.0)
[2022-06-29] MEDS: TENECTEPLASE 2966.4 MG IV (16:03)
[2022-06-29 16:12] LABS: International Normalized Ratio 1.1; Prothrombin Time (Protime)PT. 13.8 SECONDS (11.7-14.9)
[2022-06-29 16:13] LABS: Partial Thromboplast Time 39.3 Seconds (24.1-36.2)
--- NOTE | 2022-06-29 16:43 | ED.RN ---
pt's bp dropped to 130's systolic, per Dr. Perez turn off nicardipine.
--- NOTE | 2022-06-29 16:54 | CT_ITS ---
EXAMINATION : Head CT w/out contrast HISTORY : ams COMPARISON : 06/29/2022. TECHNIQUE : Multiple contiguous axial images were obtained from the skull base to the vertex without intravenous contrast. A radiation dose optimization technique was used for this scan. FINDINGS : There is no evidence for acute intracranial hemorrhage, mass effect, or midline shift. There is no extra-axial fluid collection. There are periventricular white matter changes consistent with chronic microvascular ischemic disease. There is sulcal widening and ventricular enlargement consistent with cerebral atrophy. There is normal bo-white differentiation, without CT evidence of acute ischemia or infarct. The skull base and calvarium are unremarkable. The orbits are unremarkable. The paranasal sinuses are clear. The mastoid air cells are well-aerated. The soft tissues are unremarkable. CT/Brain/Head without Contrast IMPRESSION: No acute intracranial abnormality. Chronic involutional and ischemic changes of the brain. Electronically Signed: Satish Pathak MD at 17:18 EDT ,
--- NOTE | 2022-06-29 16:55 | ED.RN ---
called Dr. Perez to room due to pt was less responsive, responds to painful stimuli. prior pt would open eyes when name was called. order for repeat CT was given. order will be entered by Dr. Perez. this nurse and jesus manuel Pedro transfported pt to Ct. pt's oxygen saturation also was decreasing while on NC. placed on simple mask.
--- NOTE | 2022-06-29 17:15 | ED.RN ---
Addendum entered by Raquel Ott 06/29/22 17:31: this was at 1700 Original Note: pt brought back for repeat ct scan, EMS was at bedside, ready to disconnect pt was monitors and move to their bed. EMS asked for written order to give nicardipine if Dr. Perez would like due to the drive is long to [facility]. written order given to EMS per Dr. Perez with parameters.
== END 2022-06-29 17:15 | disposition short-term general hospital (02) ==
PROVIDERS: Emergency Provider Student in an Organized Health Care Education/Training Program; PCP Family Medicine; Visit Provider Student in an Organized Health Care Education/Training Program
DX: I63.512 Cerebral infarction due to unspecified occlusion or stenosis of left middle cerebral artery (principal); I50.32 Chronic diastolic (congestive) heart failure; I21.4 Non-ST elevation (NSTEMI) myocardial infarction; R41.82 Altered mental status, unspecified; I25.10 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of native coronary artery without angina pectoris; G89.29 Other chronic pain; Z95.1 Presence of aortocoronary bypass graft; Z79.899 Other long term (current) drug therapy
CPT/HCPCS: 51702; 70450; 70496; 70498; 80048; 80076; 84484; 85025; 85610; 85730; 93005; 96365; 99285; J3101; Q9967; A4216; J3490

== ENCOUNTER 2022-08-10 23:02 | Inpatient (IN) | payer MEDICARE, MEDICAID, SELFPAY ==
--- NOTE | 2022-08-10 00:40 | RAD_ITS ---
INDICATION: cough EXAMINATION/TECHNIQUE: X-RAY - XR Chest 1 View AP portable. 12:38 AM COMPARISON: 06/14/2022 FINDINGS: LINES/DEVICES: None. LUNGS: No consolidation. No pneumothorax. MEDIASTINUM: Aorta is atherosclerotic. CARDIAC SILHOUETTE: Not enlarged. Sternal wires. BONES AND SOFT TISSUES: Surgical hardware in the thoracic spine. Degenerative changes of the right shoulder. RAD/Chest 1 View (Portable) IMPRESSION: No evidence of active intrathoracic disease. Electronically Signed: Indy Thomas MD at 1:29 EDT ,
[2022-08-10 23:03] VITALS: BP 109/60; PULSE 77; RESP 18; TEMP 38.2; O2SAT 92; BMI 29.2
[2022-08-10 23:07] VITALS: BP 109/60; PULSE 72; RESP 23; TEMP 38.3; O2SAT 93
[2022-08-10 23:30] VITALS: PULSE 78
[2022-08-10 23:48] LABS: Absolute Lymphocyte Count 0.56 X10^3/uL (0.83-4.51); Basophil# 0.02 X10^3/uL; Basophil% 0.2 % (0-1); Eosinophil# 0.05 X10^3/uL; Eosinophils% 0.4 % (0-5); Hematocrit 23.1 % (40-54); Hemoglobin 6.8 g/dL (13.0-16.5); Lymphocyte # 0.56 X10^3/ul (0.83-4.51); Lymphocyte % 4.8 % (19-41); Mean Corp Hgb Conc 29.4 g/dL (32-36); Mean Corpuscular Hgb 28.3 pg (27.0-32.0); Mean Corpuscular Volume 96.3 fL (80-94); Mean Platelet Vol. 11.5 fl (6.2-12.0); Monocyte# 1.04 X10^3/uL; Monocyte% 8.8 % (0-10); NRBC Flagged by Analyzer 0 % (0-5); Neutrophil # 10.02 X10^3/uL (2.7-7.7); Neutrophil % 85.2 % (47-70); POSITIVE DIFFERENTIAL YES; Platelet Count 198 K/mm3 (150-450); RBC Distribution Width CV 15.1 % (11.6-14.6); RBC Distribution Width SD 52.9 fl (35.1-43.9); White Blood Count 11.8 K/mm3 (4.4-11.0)
[2022-08-10] MEDS: 0.9% Normal Saline 1,000 ML 999 ML IV (23:50)
[2022-08-10 23:53] VITALS: BP 107/60; PULSE 70; RESP 18; TEMP 37.4; O2SAT 95
[2022-08-10 23:54] LABS: Differential Indicated SCAN CRITERIA MET
[2022-08-10 23:59] LABS: International Normalized Ratio 2.1; Prothrombin Time (Protime)PT. 23.4 SECONDS (11.7-14.9)
[2022-08-11] VITALS (34 sets, daily range): BP systolic 103–143; BP diastolic 53–100; PULSE 56–73; RESP 14–27; TEMP 36.9–37.7; O2SAT 84–100; BMI 20.9
[2022-08-11] LABS: Partial Thromboplast Time 55.7 Seconds (24.1-36.2)
[2022-08-11 00:01] LABS: Base Excess -1 mmol/L (-2 to +2); Bicarbonate 23.3 mmol/L (22-26); Blood Gas Specimen Type ART; O2 Delivery Device Room Air; PO2 69 mmHG (75-100); SITE R Radial; SO2 94 % (95-99); Total Carbon Dioxide 24 mmol/L; pCO2 35.6 mmHg (35-45); pH 7.42 (7.35-7.45)
[2022-08-11 00:16] LABS: Lactic Acid 1.5 mmol/L (0.4-1.9)
[2022-08-11 00:24] LABS: AST(SGOT) 60 U/L (15-37); Alanine Aminotransfer ALT/SGPT 64 U/L (16-61); Albumin, Serum 2.1 g/dL (3.2-5.0); Alkaline Phosphatase 180 U/L (45-117); Anion Gap 5 (5-15); BUN 90 mg/dL (7-18); BUN/Creat Ratio 46.4 RATIO (10-20); Bilirubin, Direct 0.27 mg/dL (0.00-0.30); Calcium,Total 8.4 mg/dL (8.5-10.1); Chloride 111 mmol/L (98-107); Creatinine, Serum 1.94 mg/dL (0.70-1.30); EST Glomerular Filtration Rate 37 mL/min (>60); Est Glom Filt Rate - Afr Amer 45 mL/min (>60); Estimated Creatinine Clearance 42.22 ml/min; Glucose 160 mg/dL (74-106); Potassium 4.6 mmol/L (3.5-5.1); Procalcitonin 0.22 ng/mL (0.00-0.09); Protein, Total 7.1 g/dL (6.4-8.2); Sodium Level 140 mmol/L (136-145); Thyroid Stim Hormone (TSH) 1.81 uIU/mL (0.358-3.74)
[2022-08-11] MEDS: 0.9% Normal Saline 1,000 ML 999 ML IV (00:54)
[2022-08-11 01:01] LABS: Differential Comment SCANNED
--- NOTE | 2022-08-11 02:39 | HP.PCM.HOS_ITS ---
HPI - General General Date of Admission: 08/11/22 Date of Service: 08/11/22 Chief Complaint: Unresponsiveness HPI Narrative CLAY RUBIO, is a 62 M with a significant history of a CVA who per spent 34 days at [facility] because of CVA and was transferred to [facility] 2 days ago for rehabilitation presents to the emergency department with unresponsiveness. Associated with his symptoms is temperature of 103.5 Fahrenheit at the group home. Also patient was noted to have blood in his mouth and by his teeth. Emergency doctor reports that at the ED a thick yellow secretion was suctioned from patient's mouth. Patient's stroke affected his right upper extremity and his right lower extremity. In regard to his recent stroke reportedly he was intubated for about a week; extubated and then reintubated for another week. He subsequently had a PEG tube placed. His reported that a day before presentation she did not see patient move either his right side or his left side. [facility] Medical History Abdominal pain Acute bronchitis RAFA (acute kidney injury) Alcohol abuse Anemia Atherosclerosis of coronary artery without angina pectoris 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[place] coronary artery w/angina pectoris Bacteremia Bone cancer Bradycardia Cataracts, both eyes Charcot's joint, left ankle and foot Chronic diastolic (congestive) heart failure Chronic pain Diabetes mellitus, type II Diabetic retinopathy Diastolic dysfunction with acute on chronic heart failure Essential hypertension GERD (gastroesophageal reflux disease) Hammer toe of left foot HLD (hyperlipidemia) Hyponatremia Infection of left foot Iron deficiency anemia 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 MSSA bacteremia Nephrotic syndrome Neuropathy Non-smoker Normocytic anemia Obesity (BMI 30.0-34.9) Osteomyelitis PAD (peripheral artery disease) Postoperative atrial fibrillation (06/12/18) 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) Secondary pulmonary arterial hypertension Sinus bradycardia Syncope Type 2 diabetes mellitus Ulcer of left foot Home Medications aspirin 81 mg tablet,delayed release 81 mg PO DAILY heart health 09/09/18 [History Last Taken 06/13/22] nitroglycerin 0.4 mg sublingual tablet 0.4 mg sublingual Q5M PRN Cardiac/Chest Pain #25 tabs 10/17/18 [Rx Last Taken 08/08/19] atorvastatin 40 mg tablet 40 mg PO QHS cholesterol #90 tabs 01/18/21 [Rx Last Taken 06/13/22] methadone 5 mg tablet 5 mg PO QHS PAIN 05/10/21 [History Last Taken 06/13/22] ondansetron HCl 4 mg tablet 4 mg PO Q6H PRN Nausea 05/10/21 [History Last Taken 05/10/21] sennosides 8.6 mg-docusate sodium 50 mg tablet (Senexon-S) 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 05/10/21 [History Last Taken 06/13/22] blood ketone glucose monitor #1 ea 06/06/21 [History Last Taken Unknown] lancets #100 ea 06/06/21 [History Last Taken Unknown] lisinopril 20 mg tablet 40 mg PO BID bp 06/13/21 [History Last Taken 06/13/22] allopurinol 100 mg tablet 100 mg PO DAILY gout 09/06/21 [History Last Taken 06/13/22] famotidine 40 mg tablet 40 mg PO DAILY GERD 09/13/21 [History Last Taken 06/13/22] gabapentin 100 mg capsule 200 mg PO TID NEUROPATHY 09/13/21 [History Last Taken 06/13/22] oxycodone 10 mg tablet 10 mg PO Q4H PRN Pain 09/13/21 [History Last Taken 06/14/22 06:00] pembrolizumab 25 mg/mL intravenous solution (Keytruda) 25 mg IV .UD CANCER 09/13/21 [History Last Taken 06/06/22] temazepam 15 mg capsule 15 mg PO QHS PRN Insomnia 09/13/21 [History Last Taken 06/13/22] ferrous fumarate 324 mg (106 mg iron) tablet (Ferrocite) 324 mg PO BID supplement 04/16/22 [History Last Taken 06/13/22] isosorbide mononitrate 60 mg tablet,extended release 24 hr 60 mg PO BID cp 04/16/22 [History Last Taken 06/13/22] tamsulosin 0.4 mg capsule 0.4 mg PO QHS prostate 04/16/22 [History Last Taken 06/13/22] hydralazine 50 mg tablet 50 mg PO TID 90 days #270 tabs 04/23/22 [Rx Last Taken 06/13/22] cephalexin 500 mg capsule 500 mg PO TID infection 05/16/22 [History Last Taken 06/13/22] furosemide 40 mg tablet 40 mg PO QHS water #90 tabs 06/12/22 [Rx Last Taken 06/13/22] acetaminophen 500 mg tablet (Acetaminophen Extra Strength) 500 mg PO Q6H PRN Pain 06/14/22 [History Last Taken 06/13/22] ergocalciferol (vitamin D2) 1,250 mcg (50,000 unit) capsule 1,250 mcg PO SA SUPPLEMENT 06/14/22 [History Last Taken 06/09/22] pantoprazole 40 mg tablet,delayed release 40 mg PO DAILY GERD 06/14/22 [History Last Taken 06/13/22] metoprolol tartrate 50 mg tablet 50 mg PO BID #60 tabs 06/17/22 [Rx Last Taken Unknown] prednisone 20 mg tablet 20 mg PO DAILY #5 tabs 06/17/22 [Rx Last Taken Unknown] sodium chloride 1,000 mg soluble tablet ea PO 06/27/22 [History Last Taken Unknown] acetaminophen 650 mg rectal suppository 650 mg DC PRN PRN Fever 08/10/22 [History Last Taken Unknown] amlodipine 10 mg tablet 10 mg PO DAILY 08/10/22 [History Last Taken Unknown] apixaban 5 mg tablet 5 mg PO BID 08/10/22 [History Last Taken Unknown] baclofen 5 mg oral granules in packet 5 mg PO TID 08/10/22 [History Last Taken Unknown] bisacodyl 10 mg rectal suppository 10 mg DC DAILY PRN Constipation 08/10/22 [History Last Taken Unknown] carvedilol 25 mg tablet 25 mg PO BID 08/10/22 [History Last Taken Unknown] doxazosin 4 mg tablet 4 mg PO QHS 08/10/22 [History Last Taken Unknown] Allergy/AdvReac Type Severity Reaction Status Date / Time Penicillins [PCN] Allergy Unknown Verified 06/29/22 15:08 morphine AdvReac Mild confusion Verified 06/29/22 15:08 Family History Mother Diabetes Parkinson disease Grandmother Cancer Surgical History Amputated toe of left foot (08/2018) H/O coronary artery bypass surgery (06/12/18) H/O eye surgery History of left heart catheterization (05/20/18) Hx of cholecystectomy S/P meniscectomy Social History household members: spouse Smoking Status: Never smoker alcohol intake: current alcohol intake frequency: a few times a week substance use type: does not use caffeine: No ROS Review of Systems ROS Unobtainable: other Details: Pertinent positives and pertinent negatives that could be provided by patient's family is as noted in HPI. All other systems were reviewed patient's family did not know or they were negative. Vital Signs Vital Signs Vital Signs: 08/10/22 23:03 08/10/22 23:07 08/10/22 23:53 Temperature 100.7 F H 100.9 F H 99.4 F H Temperature Source Temporal Temporal Temporal Pulse Rate 77 72 70 Respiratory Rate 18 23 H 18 Blood Pressure 109/60 109/60 107/60 Blood Pressure Mean 76 76 75 Pulse Ox 92 93 95 Oxygen Delivery Method Room Air Room Air Room Air 08/11/22 00:55 Temperature 99.9 F H Temperature Source Temporal Pulse Rate 64 Respiratory Rate 18 Blood Pressure 118/59 L Blood Pressure Mean 78 Pulse Ox 92 Oxygen Delivery Method Room Air Weight Weight: 97.6 kg Body Mass Index (BMI) 29.2 Physical Exam Narrative Physical exam: General: Looks chronically ill. Head: Normocephalic, atraumatic, no tenderness Eyes: No conjunctival injection. EOMI ENT: Thick bloody secretions at the back of throat. Neck: Nontender, No thyromegaly. CVS: Regular rate and rhythm. S1-S2 present. No murmur, gallop or rub. Respiratory : Rales and rhonchi, chest wall nontender Abdomen: PEG tube in place. Soft, nontender, nondistended, normal bowel sounds, no masses : Deferred Back: Nontender, no CVA tenderness, no midline spinal tenderness Extremities: Nontender; Lost of some phalanges of left foot. Skin: Deep ulcer at middle spine, excoriation at right scapular region. Neuro: Obtunded. Does not follow commands. Psychiatry: Obtunded. Results Lab / Micro Data Result Diagrams: 08/10/22 23:30 08/10/22 23:30 Labs: Laboratory Results - last 24 hr 08/10/22 23:30: WBC 11.8 H, RBC 2.40 L, Hgb 6.8 L, Hct 23.1 L, MCV 96.3 H, MCH 28.3, MCHC 29.4 L, RDW Std Deviation 52.9 H, RDW Coeff of Dipti 15.1 H, Plt Count 198, MPV 11.5, Immature Gran % (Auto) 0.600, Neut % (Auto) 85.2 H, Lymph % (Auto) 4.8 L, [place] % (Auto) 8.8, Eos % (Auto) 0.4, Baso % (Auto) 0.2, Absolute Neuts (auto) 10.0 H, Absolute Lymphs (auto) 0.56 L, Nucleated RBC % 0, Differential Comment SCANNED 08/10/22 23:30: Sodium 140, Potassium 4.6, Chloride 111 H, Carbon Dioxide 24.0, Anion Gap 5, BUN 90 H, Creatinine 1.94 H, Estim Creat Clear Calc 42.22, Est GFR (MDRD) Af Amer 45 L, Est GFR (MDRD) Non-Af 37 L, BUN/Creatinine Ratio 46.4 H, Glucose 160 H, Calcium 8.4 L, Total Bilirubin 0.60, Direct Bilirubin 0.27, AST 60 H, ALT 64 H, Alkaline Phosphatase 180 H, Total Protein 7.1, Albumin 2.1 L, G lobulin 5.0 H, TSH 1.81 08/10/22 23:30: Procalcitonin 0.22 H 08/10/22 23:30: Lactic Acid 1.5 08/10/22 23:30: PT 23.4 H, INR 2.1, APTT 55.7 H 08/10/22 23:30: Ammonia 32.0 Micro: Microbiology 08/11/22 00:20 Nasal Secretion SARS-CoV-2 & FLU Antigen (Rapid) - Final ABG Data ABG results: ABG 08/10/22 23:54 Specimen Type ART Sample Site R Radial pH 7.42 Bicarbonate Actual 23.3 Total CO2 24 Base Excess -1 O2 Saturation 94 L ABG pCO2 35.6 ABG pO2 69 L [place] Test N/A O2 Delivery Device Room Air Radiology Impression Chest X-Ray 08/10/22 00:40 IMPRESSION: No evidence of active intrathoracic disease. Electronically Signed: Indy Thomas MD at 1:29 EDT , Assessment & Plan Assessment/Plan (1) Encephalopathy: (2) Aspiration into airway: PLAN: Plan Acute encephalopathy Etiology unclear We will check a TSH, vitamin B12. Brain CT ordered. Urine culture ordered emergency department, trend Aspiration pneumonia Patient with fever, somnolence and thick secretions in throat. Unasyn started emergency department continued. Sputum culture ordered. Impression of chest x-ray by radiologist: No evidence of active intrathoracic disease. Independent interpretation of chest x-ray by hospitalist: Agrees with radiology interpretation. Blood culture ordered. CBC with white count of 11,800, trend. Urinary retention At the emergency department patient received 2 L of normal saline and he made no urine. Bladder scan showed more than [address] Zhu catheter. Hypotension Review of squad paperwork on presentation showed patient was hypotensive at the group home. Hold home antihypertensive medications. Trend blood pressures. Hold Lasix. Stage II pressure ulcer of buttock Wound care consult. DVT prophylaxis: Hold Eliquis. SCDs ordered. Charges/Coding Visit Charges Inpatient E&M: 91540 Init Hosp L3
--- NOTE | 2022-08-11 03:52 | CT_ITS ---
INDICATION: weakness EXAMINATION: CT BRAIN - CT Head or Brain W/O Contrast Injection TECHNIQUE: Multiple axial images were obtained of the head without intravenous contrast. A radiation dose optimization technique was used for this scan. IV Contrast dosage and agent: None. RADIATION DOSAGE (If Supplied By Facility): CTDIvol = ( 44.99 ) mGy, DLP = ( 914.22 ) mGycm COMPARISON: CT head 06/29/2022 FINDINGS: BRAIN: Large area of encephalomalacia in the left frontoparietal temporal region consistent with old infarct which was not present on the prior study. Curvilinear several areas of slightly increased attenuation especially in the temporal region may be calcification with cortical laminar necrosis, petechial hemorrhage. No large parenchymal hemorrhage. No mass effect or midline shift. VENTRICLES AND SULCI: The ventricles are prominent. The sulci are prominent. EXTRA-AXIAL: No hemorrhage, fluid collection, or mass. CALVARIUM / SKULL BASE: Unremarkable. FACE/SINUSES: Mucosal thickening in maxillary sinuses. Mastoid air cells on the right are partially opacified, minimally opacified on the left new compared to prior. SOFT TISSUES: Unremarkable. CT/Brain/Head without Contrast IMPRESSION: 1. Old left MCA territory infarct which has developed since the prior study. Subtle curvilinear hyperdensities in the region likely related to cortical laminar necrosis, petechial hemorrhage difficult to exclude but felt to be less likely. Consider follow-up or MRI. 2. No definite acute intracranial findings. 3. New mastoid opacification greater on the right. Electronically Signed: Indy Thomas MD at 4:37 EDT ,
[2022-08-11 04:08] LABS: Mucous, Urine 0 SEEN /hpf (<or=2+)
[2022-08-11 04:09] LABS: Color, Urine Yellow (Yellow); Glucose, Dipstick Normal (Normal); Ketone-Dipstick Negative (Negative); Leukocyte Esterase-Dipstick 500 /ul (Negative); Nitrite-Dipstick Positive (Negative); Occult Blood-Urine 25 /ul (Negative); Protein-Dipstick 100 mg/dl (Negative); Urine Bilirubin Dipstick Negative (Negative); Urine Clarity Sl. Cloudy (Clear); Urine Urobilinogen 1 mg/dl (Normal)
[2022-08-11 04:56] LABS: Bacteria 3+ /hpf (None Seen); Red Blood Cells-Urine 0-5 SEEN /hpf (0-5); Squamous Epithelial Cells - UA 0-5 SEEN /hpf (0-5); White Blood Cells >100 SEEN /hpf (0-5)
--- NOTE | 2022-08-11 06:28 | NURSING ---
called at home to fill out MRI questionnaire. She did not answer.
--- NOTE | 2022-08-11 06:46 | NURSING ---
127 AGYEPONG ASPIRATION PNEUMONIA
--- NOTE | 2022-08-11 07:31 | ED.RN ---
PT PLACED BACK ON NON-REBREATHER. PT NOT ABLE TO COUGH OUT SECRETIONS. PT LESS RESPONSIVE AT THIS TIME
--- NOTE | 2022-08-11 07:41 | ED.RN ---
PT PLACED ON HIGH FLOW O2
--- NOTE | 2022-08-11 08:41 | EDS_ITS ---
HPI History of Present Illness Chief Complaint: Unresponsive Narrative Narrative: Patient is a 62-year-old male with past medical history of hypertension hyperlipidemia type 2 diabetes and recent CVA for which she was at [facility]. According to he spent over a month at [facility] and was recently transitioned to the custodial center. states that she has noticed bleeding in his mouth and around his PEG tube which was inserted while he was at [facility] and that this evening he spiked a fever up to almost 104. She states she feels his mental status has been more depressed and with these changes he was sent to the hospital for further evaluation. The patient cannot offer any history based on his altered mental status [facility] Medical History Abdominal pain Acute bronchitis RAFA (acute kidney injury) Alcohol abuse Anemia Atherosclerosis of coronary artery without angina pectoris 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[place] coronary artery w/angina pectoris Bacteremia Bone cancer Bradycardia Cataracts, both eyes Charcot's joint, left ankle and foot Chronic diastolic (congestive) heart failure Chronic pain Diabetes mellitus, type II Diabetic retinopathy Diastolic dysfunction with acute on chronic heart failure Essential hypertension GERD (gastroesophageal reflux disease) Hammer toe of left foot HLD (hyperlipidemia) Hyponatremia Infection of left foot Iron deficiency anemia 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 MSSA bacteremia Nephrotic syndrome Neuropathy Non-smoker Normocytic anemia Obesity (BMI 30.0-34.9) Osteomyelitis PAD (peripheral artery disease) Postoperative atrial fibrillation (06/12/18) 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) Secondary pulmonary arterial hypertension Sinus bradycardia Syncope Type 2 diabetes mellitus Ulcer of left foot Home Medications aspirin 81 mg tablet,delayed release 81 mg PO DAILY heart health 09/09/18 [History Last Taken 06/13/22] nitroglycerin 0.4 mg sublingual tablet 0.4 mg sublingual Q5M PRN Cardiac/Chest Pain #25 tabs 10/17/18 [Rx Last Taken 08/08/19] atorvastatin 40 mg tablet 40 mg PO QHS cholesterol #90 tabs 01/18/21 [Rx Last Taken 06/13/22] methadone 5 mg tablet 5 mg PO QHS PAIN 05/10/21 [History Last Taken 06/13/22] ondansetron HCl 4 mg tablet 4 mg PO Q6H PRN Nausea 05/10/21 [History Last Taken 05/10/21] sennosides 8.6 mg-docusate sodium 50 mg tablet (Senexon-S) 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 05/10/21 [History Last Taken 06/13/22] blood ketone glucose monitor #1 ea 06/06/21 [History Last Taken Unknown] lancets #100 ea 06/06/21 [History Last Taken Unknown] lisinopril 20 mg tablet 40 mg PO BID bp 06/13/21 [History Last Taken 06/13/22] allopurinol 100 mg tablet 100 mg PO DAILY gout 09/06/21 [History Last Taken 06/13/22] famotidine 40 mg tablet 40 mg PO DAILY GERD 09/13/21 [History Last Taken 06/13/22] gabapentin 100 mg capsule 200 mg PO TID NEUROPATHY 09/13/21 [History Last Taken 06/13/22] oxycodone 10 mg tablet 10 mg PO Q4H PRN Pain 09/13/21 [History Last Taken 06/14/22 06:00] pembrolizumab 25 mg/mL intravenous solution (Keytruda) 25 mg IV .UD CANCER 09/13/21 [History Last Taken 06/06/22] temazepam 15 mg capsule 15 mg PO QHS PRN Insomnia 09/13/21 [History Last Taken 06/13/22] ferrous fumarate 324 mg (106 mg iron) tablet (Ferrocite) 324 mg PO BID supplement 04/16/22 [History Last Taken 06/13/22] isosorbide mononitrate 60 mg tablet,extended release 24 hr 60 mg PO BID cp 04/16/22 [History Last Taken 06/13/22] tamsulosin 0.4 mg capsule 0.4 mg PO QHS prostate 04/16/22 [History Last Taken 06/13/22] hydralazine 50 mg tablet 50 mg PO TID 90 days #270 tabs 04/23/22 [Rx Last Taken 06/13/22] cephalexin 500 mg capsule 500 mg PO TID infection 05/16/22 [History Last Taken 06/13/22] furosemide 40 mg tablet 40 mg PO QHS water #90 tabs 06/12/22 [Rx Last Taken 06/13/22] acetaminophen 500 mg tablet (Acetaminophen Extra Strength) 500 mg PO Q6H PRN Pain 06/14/22 [History Last Taken 06/13/22] ergocalciferol (vitamin D2) 1,250 mcg (50,000 unit) capsule 1,250 mcg PO SA SUPPLEMENT 06/14/22 [History Last Taken 06/09/22] pantoprazole 40 mg tablet,delayed release 40 mg PO DAILY GERD 06/14/22 [History Last Taken 06/13/22] metoprolol tartrate 50 mg tablet 50 mg PO BID #60 tabs 06/17/22 [Rx Last Taken Unknown] prednisone 20 mg tablet 20 mg PO DAILY #5 tabs 06/17/22 [Rx Last Taken Unknown] sodium chloride 1,000 mg soluble tablet ea PO 06/27/22 [History Last Taken Unknown] acetaminophen 650 mg rectal suppository 650 mg RI PRN PRN Fever 08/10/22 [History Last Taken Unknown] amlodipine 10 mg tablet 10 mg PO DAILY 08/10/22 [History Last Taken Unknown] apixaban 5 mg tablet 5 mg PO BID 08/10/22 [History Last Taken Unknown] baclofen 5 mg oral granules in packet 5 mg PO TID 08/10/22 [History Last Taken Unknown] bisacodyl 10 mg rectal suppository 10 mg RI DAILY PRN Constipation 08/10/22 [History Last Taken Unknown] carvedilol 25 mg tablet 25 mg PO BID 08/10/22 [History Last Taken Unknown] doxazosin 4 mg tablet 4 mg PO QHS 08/10/22 [History Last Taken Unknown] Allergy/AdvReac Type Severity Reaction Status Date / Time Penicillins [PCN] Allergy Unknown Verified 06/29/22 15:08 morphine AdvReac Mild confusion Verified 06/29/22 15:08 Family History Mother Diabetes Parkinson disease Grandmother Cancer Surgical History Amputated toe of left foot (08/2018) H/O coronary artery bypass surgery (06/12/18) H/O eye surgery History of left heart catheterization (05/20/18) Hx of cholecystectomy S/P meniscectomy Social History household members: spouse Smoking Status: Never smoker alcohol intake: current alcohol intake frequency: a few times a week substance use type: does not use caffeine: No ROS ROS ED Review of Systems ROS Unobtainable: due to mental status EXAM Physical Exam Const Vital Signs: 08/10/22 23:03 08/10/22 23:07 08/10/22 23:53 Temperature 100.7 F H 100.9 F H 99.4 F H Temperature Source Temporal Temporal Temporal Pulse Rate 77 72 70 Respiratory Rate 18 23 H 18 Blood Pressure 109/60 109/60 107/60 Blood Pressure Mean 76 76 75 Pulse Ox 92 93 95 Oxygen Delivery Method Room Air Room Air Room Air 08/11/22 00:55 08/11/22 02:00 08/11/22 02:44 Temperature 99.9 F H 98.9 F 98.8 F Temperature Source Temporal Temporal Temporal Pulse Rate 64 67 66 Respiratory Rate 18 14 16 Blood Pressure 118/59 L 122/58 H 119/62 Blood Pressure Mean 78 79 81 Pulse Ox 92 92 94 Oxygen Delivery Method Room Air Room Air Room Air 08/10/22 23:30 Temperature Temperature Source Pulse Rate 78 Respiratory Rate Blood Pressure Blood Pressure Mean Pulse Ox Oxygen Delivery Method Positive well nourished and well developed Constitutional Narrative: Patient is obtunded with GCS of 11 but maintains a gag and is protecting his airway General Appearance ED: well developed HEENT HEENT Narrative: Patient has multiple dental caries and missing teeth there is dried blood along multiple areas of the gumline. Patient has sinus drainage in the posterior pharynx as well but no tongue or lip swelling. Eyes PERRL and EOMs intact bilaterally Neck supple and no JVD Neck Narrative: No nuchal rigidity or meningeal signs noted Chest Wall palpation of chest normal Chest Narrative: No bony deformity or crepitus noted Resp Resp Narrative: Breath sounds are diminished throughout. There is rhonchi noted along the right lower lobe. Patient will have bouts of apnea that improved with stimulation and/or time. Cardio regular rate and regular rhythm GI normal to inspection, nondistended, normoactive bowel sounds, non-tender, non- distended and no masses GI Narrative: PEG tube in place there is small amount of bright red blood around the PEG tube insertion site. However there is no active hemorrhage noted or signs of secondary infection. Abdomen is soft and nondistended no voluntary guarding or rigidity or pulsatile mass. Auscultation: normoactive bowel sounds Palpation: soft Extremity Extremity Narrative: Patient has trace to +1 pitting edema to the bilateral lower extremities Neuro Neuro Narrative: Patient is obtunded with GCS of 11 however he does have a gag reflex and there are chronic findings from his recent CVA but no obvious new findings Psych Psych Narrative: Patient has a lethargic/depressed affect Skin Skin Narrative: Chronic wounds are noted without obvious secondary soft tissue changes to suggest infection MDM MDM MDM Narrative Medical decision making narrative: Patient presented to the ER febrile but much improved from what reported at home was 104 at the group home the patient was given Tylenol prior to arrival. At this point he has chronic findings from previous CVA that is not appear to be new findings and therefore do not feel the need to activate a stro ke alert. With the patient's fever there is concern for infectious process such as pneumonia or UTI leading to worsening of his mental status. Of note the patient had drainage in the posterior pharynx and even no gag was present his cough reflex was minimal and we were able to suction a large amount of thick yellow/green secretions out of the tracheal region concerning for aspiration pneumonia. Therefore he was started on Unasyn. After 2 L of fluid patient still had no bouts of urination and creatinine is elevated 1.94 but this is near baseline. On repeat exam he did have mild organomegaly in the suprapubic region concerning for retention so a Zhu catheter was placed. Urine sample from this does show changes consistent with infection but Unasyn should cover both lung and urine. The patient's mental status did improve after being in the ER for a while and he seemed more awake and alert and talkative. However the patient's mental status then returned to his initial arrival where he was obtunded and only waking to stimulation with quick return to sleep. A blood gas was obtained upon his arrival because of the depressed mental status and it shows a normal pH of 7.42 with normal CO2 at 36 and PO2 only slightly hypoxic at 69. At this point with the patient's fluctuating mental status the fact that he has had a high fever and a elevation to his white blood cell count and the need for suctioning multiple secretions out of his posterior pharynx there is high concern that he has aspiration pneumonia. I feel he would benefit from inpatient and IV antibiotics based on his depressed mental status as there is concern that he would only worsen in the group home setting. Secondary to this the case was discussed with medicine on-call. They evaluated the patient in the ER and do agree with admission but feels like his mental status is more depressed than it has been and with that they ordered a CT scan of the head. This scan showed a questionable area of new bleed versus cortical laminar necrosis. We attempted to obtain records from outside hospital/[facility] indicating that these changes are old but were unable to do so. Therefore we attempted to order the MRI which the radiologist recommended. As the patient has difficulty answering questions based on his mental status and the is unsure of exactly what was done at [facility] and MRI cannot be performed. I was able to evaluate the CT from [facility] on August 06 and the questionable area on today's CT scan was present at that time as well. Therefore I do not feel there is necessity to undergo MRI. The case will be discussed with medicine once again to confirm patient is safe for admission at this time. Medicine was informed of the previous images from [facility] showing similar hamlet nges to today CT scan and they were also able to review them. They agree based on these findings there is no need for MRI and therefore patient can be admitted but as he is now requiring high flow nasal cannula and his have been having difficulty managing his secretions to be admitted to the ICU to continue to monitor his breathing status History & Record Review Discussion w/independent historian: EMS personnel and Family Lab Data Attestation: I reviewed the patient's lab results. Labs: Laboratory Results - last 24 hr 08/10/22 08/10/22 08/10/22 23:30 23:30 23:30 WBC 11.8 H RBC 2.40 L Hgb 6.8 L Hct 23.1 L MCV 96.3 H MCH 28.3 MCHC 29.4 L RDW Std Deviation 52.9 H RDW Coeff of Dipti 15.1 H Plt Count 198 MPV 11.5 Immature Gran % (Auto) 0.600 Neut % (Auto) 85.2 H Lymph % (Auto) 4.8 L K[place] % (Auto) 8.8 Eos % (Auto) 0.4 Baso % (Auto) 0.2 Absolute Neuts (auto) 10.0 H Absolute Lymphs (auto) 0.56 L Nucleated RBC % 0 Differential Comment SCANNED PT INR APTT Sodium 140 Potassium 4.6 Chloride 111 H Carbon Dioxide 24.0 Anion Gap 5 BUN 90 H Creatinine 1.94 H Estim Creat Clear Calc 42.22 Est GFR (MDRD) Af Amer 45 L Est GFR (MDRD) Non-Af 37 L BUN/Creatinine Ratio 46.4 H Glucose 160 H Lactic Acid Calcium 8.4 L Total Bilirubin 0.60 Direct Bilirubin 0.27 AST 60 H ALT 64 H Alkaline Phosphatase 180 H Ammonia Total Protein 7.1 Albumin 2.1 L Globulin 5.0 H Procalcitonin 0.22 H TSH 1.81 08/10/22 08/10/22 08/10/22 23:30 23:30 23:30 WBC RBC Hgb Hct MCV MCH MCHC RDW Std Deviation RDW Coeff of Dipti Plt Count MPV Immature Gran % (Auto) Neut % (Auto) Lymph % (Auto) Knott % (Auto) Eos % (Auto) Baso % (Auto) Absolute Neuts (auto) Absolute Lymphs (auto) Nucleated RBC % Differential Comment PT 23.4 H INR 2.1 APTT 55.7 H Sodium Potassium Chloride Carbon Dioxide Anion Gap BUN Creatinine Estim Creat Clear Calc Est GFR (MDRD) Af Amer Est GFR (MDRD) Non-Af BUN/Creatinine Ratio Glucose Lactic Acid 1.5 Calcium Total Bilirubin Direct Bilirubin AST ALT Alkaline Phosphatase Ammonia 32.0 Total Protein Albumin Globulin Procalcitonin TSH ABG Data ABG results: ABG 08/10/22 23:54 Specimen Type ART Sample Site R Radial pH 7.42 Bicarbonate Actual 23.3 Total CO2 24 Base Excess -1 O2 Saturation 94 L ABG pCO2 35.6 ABG pO2 69 L [place]quille Test N/A O2 Delivery Device Room Air Radiography Diagnostic Testing: Clinical Impression(s) from Imaging Studies Chest X-Ray 08/10/22 00:40 IMPRESSION: No evidence of active intrathoracic disease. Electronically Signed: Indy Thomas MD at 1:29 EDT , Chest x-ray as interpreted by the emergency medicine physician reveals no acute infiltrate pneumothorax or pleural effusion Management Discussion w/another healthcare provider: Hospitalist Critical Care Time Critical Care Time: Yes Critical care time (excluding procedures): Discussing w/Patient &/or Family/[place] Manager, Discussing w/Consultants and - (Critical care time of 33 minutes) Discharge Plan Dx/Rx/DC Orders Clinical Impression: Diabetes mellitus, type II, Essential hypertension, Aspiration into airway, UTI (urinary tract infection), Cerebral arteriosclerosis with history of previous cerebrovascular accident, Altered mental status Disposition Disposition: Acute Care [facility]
--- NOTE | 2022-08-11 09:01 | NURSING ---
DR KNIGHT FOR DR KLEIN
--- NOTE | 2022-08-11 10:05 | NURSING ---
CV ICU 202
--- NOTE | 2022-08-11 11:00 | EX.PCM.CONCC ---
Assessment & Plan Assessment/Plan (1) UTI (urinary tract infection): (2) Altered mental status: PLAN: Plan RECOMMENDATIONS: 1. Titrate oxygen to keep saturations between 90 and 94% 2. Fluid boluses as necessary for hypotension 3. Continue empiric antibiotics. Monitor for allergic response 4. Consult wound nurse for evaluation of skin tears 5. Hold apixaban for now 6. Transfuse blood if hypotensive IMPRESSIONS: 1. Metabolic encephalopathy secondary to sepsis Patient does not appear to have CO2 retention, but is very lethargic compared to previous documentation. Patient was febrile, tachypneic and had a leukocytosis. Endorgan damage was demonstrated by respiratory failure and acute kidney injury. We will keep patient n.p.o. for now until things improved. Patient does appear to have findings consistent with a UTI 2. Acute kidney injury with probable UTI Patient's baseline appears to be approximately 1.3 and creatinine today is 1.94. Patient does have a relative uremia, but this may be secondary to bleeding from the PEG site and mouth. No indication for renal replacement therapy at this time. Patient did also have findings of possible postobstructive injury that is responding to Zhu catheter placement. We will continue to support blood pressure and monitor daily labs. 3. Acute hypoxic respiratory failure Patient was saturating well on room air, but does have an oxygen requirement after fluid boluses for sepsis. This does appear to be improving at this time. Would not recommend BiPAP therapy, but saturations should be maintained between 90 and 94% to avoid complicating problem #1. There is a concern for aspiration, but Unasyn would be sufficient. 4. Debility/pressure injury Patient with significant debility and recent protracted hospitalization. We will consult wound care in addition to therapies. Dietitian will see patient, but would likely benefit from additional augmentation. 5. Squamous cell carcinoma/hypertension/hyperlipidemia/diabetes mellitus/Charcot joint/anemia Complicates care, management, recovery and prognosis. Consider holding antihypertensive medications for now as patient is at risk for need of pressors. There is a question of aspiration, so patient should be seen by speech therapy prior to any p.o. intake. Clinical suspicion for an element of blood loss secondary to Eliquis with PEG tube. Sliding scale insulin would be appropriate. Patient has been verified as a full code. HPI Consult Data Date of Consult: 04/29/23 HPI Narrative Reason for Consultation: Change in mental status HPI Narrative: CLAY RUBIO is a 62 M, with past medical history listed below, who presents to [facility] on 08/11/2022 from a local custodial center secondary to decreased responsiveness, fever and hypoxia. Patient reportedly was admitted at [facility] for an extended period of time secondary to his CVA resulting in a PEG tube. Patient reportedly had had some bleeding in his mouth and around his PEG site and was sent in for evaluation. Patient reportedly had been less responsive and had a fever as high as 104 ?F, but this cannot be verified. In the ER, patient was noted to have a temperature of 100.9 ?F and tachypneic at 23 breaths/min. Patient initially was doing well on room air without significant tachycardia. Laboratory work-up showed a white blood cell count of 11.8, hemoglobin of 6.8 and platelets of 198. Chemistry showed an elevated creatinine of 1.94, BUN of 90 and a chloride of 111. LFTs were relatively unremarkable except for an elevated alkaline phosphatase. Procalcitonin was elevated at 0.22 and an INR was at 2.1. Initial lactate was within normal limits, but pneumonia was slightly elevated. An ABG showed adequate acid-base within increased AA gradient. Chest x-ray showed no obvious infiltrates. There was some concern for urinary retention, so a Zhu was placed patient did have a CT scan showing no acute bleeds. Patient was treated with antibiotics. Patient was placed on high flow nasal cannula and admitted to the intensive care unit for further evaluation. On my evaluation, patient was a very cachectic debilitated individual. Patient was making eye contact and tracking appropriately. However, patient was not really able to bring any additional information. No family members are at the bedside at this time. [facility] Medical History Abdominal pain Acute bronchitis RAFA (acute kidney injury) Alcohol abuse Anemia Atherosclerosis of coronary artery without angina pectoris 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[place] coronary artery w/angina pectoris Bacteremia Bone cancer Bradycardia Cataracts, both eyes Charcot's joint, left ankle and foot Chronic diastolic (congestive) heart failure Chronic pain Diabetes mellitus, type II Diabetic retinopathy Diastolic dysfunction with acute on chronic heart failure Essential hypertension GERD (gastroesophageal reflux disease) Hammer toe of left foot HLD (hyperlipidemia) Hyponatremia Infection of left foot Iron deficiency anemia 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 MSSA bacteremia Nephrotic syndrome Neuropathy Non-smoker Normocytic anemia Obesity (BMI 30.0-34.9) Osteomyelitis PAD (peripheral artery disease) Postoperative atrial fibrillation (06/12/18) 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) Secondary pulmonary arterial hypertension Sinus bradycardia Syncope Type 2 diabetes mellitus Ulcer of left foot Home Medications aspirin 81 mg tablet,delayed release 81 mg PO DAILY heart health 09/09/18 [History Last Taken 06/13/22] nitroglycerin 0.4 mg sublingual tablet 0.4 mg sublingual Q5M PRN Cardiac/Chest Pain #25 tabs 10/17/18 [Rx Last Taken 08/08/19] atorvastatin 40 mg tablet 40 mg PO QHS cholesterol #90 tabs 01/18/21 [Rx Last Taken 06/13/22] methadone 5 mg tablet 5 mg PO QHS PAIN 05/10/21 [History Last Taken 06/13/22] ondansetron HCl 4 mg tablet 4 mg PO Q6H PRN Nausea 05/10/21 [History Last Taken 05/10/21] sennosides 8.6 mg-docusate sodium 50 mg tablet (Senexon-S) 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 05/10/21 [History Last Taken 06/13/22] blood ketone glucose monitor #1 ea 06/06/21 [History Last Taken Unknown] lancets #100 ea 06/06/21 [History Last Taken Unknown] lisinopril 20 mg tablet 40 mg PO BID bp 06/13/21 [History Last Taken 06/13/22] allopurinol 100 mg tablet 100 mg PO DAILY gout 09/06/21 [History Last Taken 06/13/22] famotidine 40 mg tablet 40 mg PO DAILY GERD 09/13/21 [History Last Taken 06/13/22] gabapentin 100 mg capsule 200 mg PO TID NEUROPATHY 09/13/21 [History Last Taken 06/13/22] oxycodone 10 mg tablet 10 mg PO Q4H PRN Pain 09/13/21 [History Last Taken 06/14/22 06:00] pembrolizumab 25 mg/mL intravenous solution (Keytruda) 25 mg IV .UD CANCER 09/13/21 [History Last Taken 06/06/22] temazepam 15 mg capsule 15 mg PO QHS PRN Insomnia 09/13/21 [History Last Taken 06/13/22] ferrous fumarate 324 mg (106 mg iron) tablet (Ferrocite) 324 mg PO BID supplement 04/16/22 [History Last Taken 06/13/22] isosorbide mononitrate 60 mg tablet,extended release 24 hr 60 mg PO BID cp 04/16/22 [History Last Taken 06/13/22] tamsulosin 0.4 mg capsule 0.4 mg PO QHS prostate 04/16/22 [History Last Taken 06/13/22] hydralazine 50 mg tablet 50 mg PO TID 90 days #270 tabs 04/23/22 [Rx Last Taken 06/13/22] cephalexin 500 mg capsule 500 mg PO TID infection 05/16/22 [History Last Taken 06/13/22] furosemide 40 mg tablet 40 mg PO QHS water #90 tabs 06/12/22 [Rx Last Taken 06/13/22] acetaminophen 500 mg tablet (Acetaminophen Extra Strength) 500 mg PO Q6H PRN Pain 06/14/22 [History Last Taken 06/13/22] ergocalciferol (vitamin D2) 1,250 mcg (50,000 unit) capsule 1,250 mcg PO SA SUPPLEMENT 06/14/22 [History Last Taken 06/09/22] pantoprazole 40 mg tablet,delayed release 40 mg PO DAILY GERD 06/14/22 [History Last Taken 06/13/22] metoprolol tartrate 50 mg tablet 50 mg PO BID #60 tabs 06/17/22 [Rx Last Taken Unknown] prednisone 20 mg tablet 20 mg PO DAILY #5 tabs 06/17/22 [Rx Last Taken Unknown] sodium chloride 1,000 mg soluble tablet ea PO 06/27/22 [History Last Taken Unknown] acetaminophen 650 mg rectal suppository 650 mg MN PRN PRN Fever 08/10/22 [History Last Taken Unknown] amlodipine 10 mg tablet 10 mg PO DAILY 08/10/22 [History Last Taken Unknown] apixaban 5 mg tablet 5 mg PO BID 08/10/22 [History Last Taken Unknown] baclofen 5 mg oral granules in packet 5 mg PO TID 08/10/22 [History Last Taken Unknown] bisacodyl 10 mg rectal suppository 10 mg MN DAILY PRN Constipation 08/10/22 [History Last Taken Unknown] carvedilol 25 mg tablet 25 mg PO BID 08/10/22 [History Last Taken Unknown] doxazosin 4 mg tablet 4 mg PO QHS 08/10/22 [History Last Taken Unknown] Allergy/AdvReac Type Severity Reaction Status Date / Time Penicillins [PCN] Allergy Unknown Verified 06/29/22 15:08 morphine AdvReac Mild confusion Verified 06/29/22 15:08 Family History Mother Diabetes Parkinson disease Grandmother Cancer Surgical History Amputated toe of left foot (08/2018) H/O coronary artery bypass surgery (06/12/18) H/O eye surgery History of left heart catheterization (05/20/18) Hx of cholecystectomy S/P meniscectomy Social History household members: spouse Smoking Status: Never smoker alcohol intake: current alcohol intake frequency: a few times a week substance use type: does not use caffeine: No ROS Review of Systems ROS Unobtainable: due to mental status Physical Exam Const no apparent distress Constitutional Narrative: Oriented to self. Appears older than stated age and chronically ill. General Appearance: cooperative and lethargic HEENT normocephalic, head/scalp atraumatic and hearing grossly normal bilaterally Eyes PERRL, EOMs intact bilaterally and conjunctivae normal Eyes Narrative: No scleral icterus Neck no lymphadenopathy, supple, no JVD and no carotid bruits Resp no retractions and no use of accessory muscles Resp Narrative: Fair effort Auscultation: rhonchi and diminished lung sounds; Negative for rales or wheezes Cardio regular rate, regular rhythm, S1 normal heart sound, S2 normal heart sound, no murmurs, no rub, no gallops and no clicks GI normal to inspection, nondistended, normoactive bowel sounds, soft to palpation and non-tender GI Narrative: PEG tube with surrounding erythema and bleeding Inspection: GI tube present Narrative: Concentrated urine Extremity no clubbing, cyanosis or edema Extremity Narrative: 2+ pedal pulses Skin skin turgor normal, no jaundice, no petechiae and no mottling Skin Narrative: Wound on tip of second toe on left foot appears clean dry and intact without any drainage. Pressure injury noted on the spine. Charcot ankle joint noted. Neuro Neuro Narrative: Decreased sensation bilateral lower extremities due to neuropathy, significant generalized weakness. Right upper extremity in a brace Speech: speech normal Psych Mood & Affect: flat affect Medical Records Data Attestation: I reviewed the patient's medical records Lab / Micro Data Attestation: I reviewed the patient's lab results. Result Diagrams: 08/10/22 23:30 08/10/22 23:30 Labs: Laboratory Results - last 24 hr 08/10/22 23:30: WBC 11.8 H, RBC 2.40 L, Hgb 6.8 L, Hct 23.1 L, MCV 96.3 H, MCH 28.3, MCHC 29.4 L, RDW Std Deviation 52.9 H, RDW Coeff of Dipti 15.1 H, Plt Count 198, MPV 11.5, Immature Gran % (Auto) 0.600, Neut % (Auto) 85.2 H, Lymph % (Auto) 4.8 L, [place] % (Auto) 8.8, Eos % (Auto) 0.4, Baso % (Auto) 0.2, Absolute Neuts (auto) 10.0 H, Absolute Lymphs (auto) 0.56 L, Nucleated RBC % 0, Differential Comment SCANNED 08/10/22 23:30: Sodium 140, Potassium 4.6, Chloride 111 H, Carbon Dioxide 24.0, Anion Gap 5, BUN 90 H, Creatinine 1.94 H, Estim Creat Clear Calc 42.22, Est GFR (MDRD) Af Amer 45 L, Est GFR (MDRD) Non-Af 37 L, BUN/Creatinine Ratio 46.4 H, Glucose 160 H, Calcium 8.4 L, Total Bilirubin 0.60, Direct Bilirubin 0.27, AST 60 H, ALT 64 H, Alkaline Phosphatase 180 H, Total Protein 7.1, Albumin 2.1 L, Globulin 5.0 H, TSH 1.81 08/10/22 23:30: Procalcitonin 0.22 H 08/10/22 23:30: Lactic Acid 1.5 08/10/22 23:30: PT 23.4 H, INR 2.1, APTT 55.7 H 08/10/22 23:30: Ammonia 32.0 08/11/22 04:00: Urine Color Yellow, Urine Clarity Sl. Cloudy, Urine pH 6.0, Ur Specific [place] 1.010, Urine Protein 100 H, Urine Glucose (UA) Normal, Urine Ketones Negative, Urine Occult Blood 25 H, Urine Nitrite Positive H, Urine Bilirubin Negative, Urine Urobilinogen 1 H, Ur Leukocyte Esterase 500 H, Urine RBC 0-5 SEEN, Urine WBC >100 SEEN, Ur Squamous Epith Cells 0-5 SEEN, Urine Bacteria 3+, Urine Mucus 0 SEEN Micro: Microbiology 08/11/22 00:20 Nasal Secretion SARS-CoV-2 & FLU Antigen (Rapid) - Final ABG Data ABG results: ABG 08/10/22 23:54 Specimen Type ART Sample Site R Radial pH 7.42 Bicarbonate Actual 23.3 Total CO2 24 Base Excess -1 O2 Saturation 94 L ABG pCO2 35.6 ABG pO2 69 L [place] Test N/A O2 Delivery Device Room Air Attestation: I personally reviewed and interpreted this ABG as follows: (Normal acid-base with increased AA gradient) Radiology Impression Chest X-Ray 08/10/22 00:40 IMPRESSION: No evidence of active intrathoracic disease. Electronically Signed: Indy Thomas MD at 1:29 EDT , Brain CT 08/11/22 03:52 IMPRESSION: 1. Old left MCA territory infarct which has developed since the prior study. Subtle curvilinear hyperdensities in the region likely related to cortical laminar necrosis, petechial hemorrhage difficult to exclude but felt to be less likely. Consider follow-up or MRI. 2. No definite acute intracranial findings. 3. New mastoid opacification greater on the right. Electronically Signed: Indy Thomas MD at 4:37 EDT , Charges/Coding Visit Charges Inpatient E&M: 50138 Init Hosp L3
[2022-08-11 11:54] LABS: Thyroid Stim Hormone (TSH) 1.38 uIU/mL (0.358-3.74)
[2022-08-11] MEDS: Aspirin E.C. 81 MG Tablet PO (12:25)
[2022-08-11] MEDS: Acetaminophen 500 MG Tablet PO ×2 (12:25→19:52)
[2022-08-11] MEDS: Famotidine 20 MG Tablet 40 MG PO (12:26)
[2022-08-11] MEDS: Baclofen 10 MG Tablet 5 MG PO ×2 (12:26→21:07)
[2022-08-11] MEDS: Allopurinol 100 MG Tablet PO (12:27)
--- NOTE | 2022-08-11 13:24 | CASEMGMT ---
Social Work SW met w/pt's at the bedside. Pt was at [facility] for 34 days, and went to [facility] two days ago. states pt is not going back there. described everything that happened yesterday. Support offered, and SW gave the ombudsman's office to call. SW provided to a list of nursing home facilities in pt's insurance network, preferred geographic area, and with quality and resource use measures. states she [facility] to [facility], she does not want to even consider any other facilities. states if [facility] cannot take pt, she will take pt home. SW explained will make referral and follow up on Saturday. SW called [facility], message left regarding pt. SW to follow up on Saturday. LIZZ Mar
[2022-08-11 17:06] LABS: Bedside Glucose 121 mg/dL (74-106)
[2022-08-11] MEDS: 0.9% Saline Lock 10 ML Syringe IV (17:10)
[2022-08-11] MEDS: Atorvastatin Calcium 40 MG Tablet PO (21:07)
[2022-08-12] VITALS (18 sets, daily range): BP systolic 119–167; BP diastolic 61–82; PULSE 57–73; RESP 16–25; TEMP 36.3–37.4; O2SAT 94–99; BMI 20.2
[2022-08-12 01:06] LABS: Bedside Glucose 116 mg/dL (74-106)
[2022-08-12 03:39] LABS: Absolute Lymphocyte Count 0.55 X10^3/uL (0.83-4.51); Absolute Neutrophil Count 5.3 X10^3/uL (2.0-7.7); Basophil# 0.01 X10^3/uL; Basophil% 0.1 % (0-1); Eosinophil# 0.14 X10^3/uL; Eosinophils% 2.1 % (0-5); Hematocrit 22.2 % (40-54); Hemoglobin 6.5 g/dL (13.0-16.5); Lymphocyte # 0.55 X10^3/ul (0.83-4.51); Lymphocyte % 8.2 % (19-41); Mean Corp Hgb Conc 29.3 g/dL (32-36); Mean Corpuscular Hgb 28.6 pg (27.0-32.0); Mean Corpuscular Volume 97.8 fL (80-94); Mean Platelet Vol. 11.2 fl (6.2-12.0); Monocyte# 0.66 X10^3/uL; Monocyte% 9.8 % (0-10); NRBC Flagged by Analyzer 0 % (0-5); Neutrophil # 5.32 X10^3/uL (2.7-7.7); Neutrophil % 79.1 % (47-70); POSITIVE DIFFERENTIAL YES; Platelet Count 177 K/mm3 (150-450); RBC Distribution Width CV 15.1 % (11.6-14.6); RBC Distribution Width SD 54.3 fl (35.1-43.9); Red Blood Count 2.27 M/mm3 (4.6-6.2); White Blood Count 6.7 K/mm3 (4.4-11.0)
[2022-08-12 03:46] LABS: Differential Indicated SCAN CRITERIA MET
[2022-08-12 04:01] LABS: Anion Gap 6 (5-15); BUN 64 mg/dL (7-18); BUN/Creat Ratio 50.4 RATIO (10-20); Calcium,Total 8.3 mg/dL (8.5-10.1); Chloride 117 mmol/L (98-107); Creatinine, Serum 1.27 mg/dL (0.70-1.30); EST Glomerular Filtration Rate 61 mL/min (>60); Est Glom Filt Rate - Afr Amer 73 mL/min (>60); Estimated Creatinine Clearance 58.43 ml/min; Glucose 114 mg/dL (74-106); Potassium 4.6 mmol/L (3.5-5.1); Sodium Level 147 mmol/L (136-145)
[2022-08-12 04:19] LABS: Anisocytosis 1+; Macrocytosis 1+
[2022-08-12 04:34] LABS: Magnesium 2.9 mg/dL (1.6-2.6)
[2022-08-12] MEDS: Baclofen 10 MG Tablet 5 MG PO (05:14)
[2022-08-12] MEDS: Allopurinol 100 MG Tablet GT (08:08)
[2022-08-12] MEDS: Famotidine 20 MG Tablet 40 MG GT (08:08)
[2022-08-12] MEDS: Aspirin 81 MG TAB.CHEW GT (08:11)
[2022-08-12] MEDS: Acetaminophen 650 MG/20 ML UDC 500 MG GT ×2 (08:11→20:22)
--- NOTE | 2022-08-12 09:28 | PCM.PN.HOSP ---
Subjective Subjective Oxygen requirements are significantly improved. Hemoglobin did drop and he is being transfused today Objective Data Objective Data Vital Signs: Vital Signs Temp Pulse Resp BP Pulse Ox O2 Del Method O2 Flow Rate 99 F 60 25 H 136/66 H 98 Nasal Cannula 2 08/12/22 09:24 08/12/22 09:24 08/12/22 09:24 08/12/22 09:24 08/12/22 09:24 08/12/22 09:24 08/12/22 09:24 Oxygen Flow Rate (L/min) 2 Oxygen Delivery Method Nasal Cannula Weight: 149 lb 11.102 oz Body Mass Index (BMI) 20.2 Intake & Output: Intake and Output for Last 24 Hours 08/11/22 08/12/22 08/13/22 03:59 03:59 03:59 Intake Total 2111 / 2111 506 / 506 572 / 572 Output Total 3000 / 3000 250 / 250 Balance 2111 -2494 / -2494 322 / 322 Lab / Micro Data Result Diagrams: 08/12/22 03:25 08/12/22 03:25 Labs: Laboratory Results - last 24 hr 08/11/22 11:10: TSH 1.38 08/11/22 16:44: POC Glucose 121 H 08/12/22 00:47: POC Glucose 116 H 08/12/22 03:25: WBC 6.7, RBC 2.27 L, Hgb 6.5 L, Hct 22.2 L, MCV 97.8 H, MCH 28.6, MCHC 29.3 L, RDW Std Deviation 54.3 H, RDW Coeff of Dipti 15.1 H, Plt Count 177, MPV 11.2, Immature Gran % (Auto) 0.700, Neut % (Auto) 79.1 H, Lymph % (Auto) 8.2 L, [place] % (Auto) 9.8, Eos % (Auto) 2.1, Baso % (Auto) 0.1, Absolute Neuts (auto) 5.3, Absolute Lymphs (auto) 0.55 L, Nucleated RBC % 0, Anisocytosis 1+, Macrocytosis 1+ 08/12/22 03:25: Sodium 147 H, Potassium 4.6, Chloride 117 H, Carbon Dioxide 24.0, Anion Gap 6, BUN 64 H, Creatinine 1.27, Estim Creat Clear Calc 58.43, Est GFR (MDRD) Af Amer 73, Est GFR (MDRD) Non-Af 61, BUN/Creatinine Ratio 50.4 H, Glucose 114 H, Calcium 8.3 L 08/12/22 03:25: Phosphorus 4.0, Magnesium 2.9 H 08/12/22 04:14: Blood Type A POSITIVE, Antibody Screen NEGATIVE, Crossmatch See Detail Micro: Microbiology 08/11/22 07:22 Sputum, Induced/[place] Gram Stain - Final 08/11/22 07:22 Sputum, Induced/[place] Respiratory Culture - Preliminary GNR 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 08/11/22 04:00 Urine Catheter - Zhu Urine Culture - Preliminary GNR 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 08/11/22 00:20 Nasal Secretion SARS-CoV-2 & FLU Antigen (Rapid) - Final Physical Exam Narrative General: Alert, Cooperative, No apparent distress HEENT: Atraumatic, PERRLA, EOMI, Normocephalic Oral: Moist Mucosa Neck: Supple, No JVD Lungs: Diminished, Normal air movement, rhonchi, No wheeze, No rales Cardiovascular: Regular rate, Regular Rhythm, Normal S1, Normal S2, No murmurs Abdomen: Soft, Non Tender, Non-Distended, No Hepato-splenomegaly, PEG tube in place Extremities: No edema, Capillary Refill Less than 3 Seconds Skin: No rashes, No breakdown Musculoskeletal: No Tenderness to Palpation of Joints or Extremities Neurological: He does move his left arm but cannot move his right arm, he is alert but speech is difficult this morning, this appears to wax and wane Psych/Mental Status: Flat affect Assessment & Plan Assessment/Plan (1) Encephalopathy: (2) Aspiration into airway: PLAN: Plan 1. Metabolic encephalopathy secondary to UTI and possible aspiration pneumonia ? Both sputum cultures and urine cultures are coming back with a gram-negative james ? Continue broad-spectrum antibiotics ? Does not meet sepsis criteria ? Part of his mental status is confounded by his large left hemispheric stroke that he was in [place] for over a month ? TSH is unremarkable and B12 is pending ? Zhu in place 2. CAD status post stent/HTN/HLD/chronic diastolic ? Given his hypotension on admission and his anemia we will hold his blood pressure medications ? Can continue with his Lipitor but will hold his Eliquis ? Can give him a dose of Lasix between his blood products if he becomes short of breath and has increasing oxygen requirements 3. Left hemispheric CVA/dysphagia ? He had a large stroke about a month ago and he was in the hospital for about a month and had a PEG tube placed ? Can continue with tube feeds 4. Anemia ? Unknown etiology ? We will transfuse 2 units and obtain a fecal occult ? B12 is pending as he is slightly macrocytic ? Continue with Pepcid 5. 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 He is on Keytruda DVT: SCDs Charges/Coding Visit Charges Inpatient E&M: 97640 Subs Hosp L2
[2022-08-12] MEDS: Jevity 1.5 1,000 ML 20 ML GT (10:42)
[2022-08-12] MEDS: Baclofen 10 MG Tablet 5 MG GT ×2 (12:36→20:27)
[2022-08-12] MEDS: fentaNYL 100 MCG/2 ML Ampul 25 MCG IV ×2 (14:38→20:22)
[2022-08-12] MEDS: 0.9% Saline Lock 10 ML Syringe IV (20:24)
[2022-08-12] MEDS: Atorvastatin Calcium 40 MG Tablet GT (20:27)
[2022-08-13] VITALS (11 sets, daily range): BP systolic 144–186; BP diastolic 72–85; PULSE 63–82; RESP 15–18; TEMP 36.6–36.8; O2SAT 95–97; BMI 20.4
[2022-08-13] MEDS: hydrALAZINE 20 MG/ML Vial 5 MG IV ×2 (03:24→17:53)
[2022-08-13] MEDS: Baclofen 10 MG Tablet 5 MG GT ×3 (05:09→22:00)
[2022-08-13 06:57] LABS: Absolute Lymphocyte Count 0.45 X10^3/uL (0.83-4.51); Absolute Neutrophil Count 4.2 X10^3/uL (2.0-7.7); Basophil# 0.02 X10^3/uL; Basophil% 0.3 % (0-1); Eosinophil# 0.15 X10^3/uL; Eosinophils% 2.6 % (0-5); Hematocrit 26.7 % (40-54); Lymphocyte # 0.45 X10^3/ul (0.83-4.51); Lymphocyte % 7.8 % (19-41); Mean Corpuscular Hgb 28.2 pg (27.0-32.0); Monocyte# 0.86 X10^3/uL; Monocyte% 14.8 % (0-10); NRBC Flagged by Analyzer 0 % (0-5); Neutrophil # 4.24 X10^3/uL (2.7-7.7); Neutrophil % 73.1 % (47-70); POSITIVE DIFFERENTIAL YES; Platelet Count 208 K/mm3 (150-450); RBC Distribution Width CV 15.9 % (11.6-14.6); RBC Distribution Width SD 55.3 fl (35.1-43.9); Red Blood Count 2.84 M/mm3 (4.6-6.2); White Blood Count 5.8 K/mm3 (4.4-11.0)
[2022-08-13 07:06] LABS: Differential Indicated SCAN CRITERIA MET
--- NOTE | 2022-08-13 07:40 | PN.HOSP_ITS ---
Reason for Visit Reason for Visit: Diagnoses Encephalopathy, unspecified (08/11/22) Urinary tract infection, site not specified (08/11/22) Altered mental status, unspecified (08/11/22) Unspecified foreign body in respiratory tract, part unspecified causing other injury, initial encounter (08/11/22) Objective Data Objective Data Vital Signs: Vital Signs Temp Pulse Resp BP Pulse Ox O2 Del Method O2 Flow Rate 97.9 F 67 18 174/74 H 97 Room Air 2 08/13/22 02:40 08/13/22 03:24 08/13/22 02:40 08/13/22 04:46 08/13/22 02:40 08/13/22 02:48 08/12/22 12:00 Oxygen Flow Rate (L/min) 2 Oxygen Delivery Method Room Air Weight: 150 lb 9.211 oz Body Mass Index (BMI) 20.4 Intake & Output: Intake and Output for Last 24 Hours 08/11/22 08/12/22 08/13/22 23:59 23:59 23:59 Intake Total 2506 / 2506 1591.00 / 1741.00 824 / 824 Output Total 3000 / 3000 1500 / 2250 1550 / 1550 Balance -494 / -494 91.00 / -509.00 -726 / -726 Lab / Micro Data Result Diagrams: 08/13/22 05:55 08/13/22 05:55 Labs: Laboratory Results - last 24 hr 08/12/22 04:14: Crossmatch See Detail 08/13/22 05:55: WBC 5.8, RBC 2.84 L, Hgb 8.0 L, Hct 26.7 L, MCV 94.0, MCH 28.2, MCHC 30.0 L, RDW Std Deviation 55.3 H, RDW Coeff of Dipti 15.9 H, Plt Count 208, MPV 11.0, Immature Gran % (Auto) 1.400 H, Neut % (Auto) 73.1 H, Lymph % (Auto) 7.8 L, Letcher % (Auto) 14.8 H, Eos % (Auto) 2.6, Baso % (Auto) 0.3, Absolute Neuts (auto) 4.2, Absolute Lymphs (auto) 0.45 L, Nucleated RBC % 0 Micro: Microbiology 08/11/22 07:22 Sputum, Induced/Lukens Gram Stain - Final 08/11/22 07:22 Sputum, Induced/Lukens Respiratory Culture - Preliminary GNR lactose guidance director 08/11/22 04:00 Urine Catheter - Zhu Urine Culture - Preliminary GNR lactose guidance director 08/11/22 00:20 Nasal Secretion SARS-CoV-2 & FLU Antigen (Rapid) - Final Physical Exam Narrative Seen and examined. Patient was sleepy and lethargic but he woke up blood drawn. was also present during my exam. She is stated that the patient was coughing blood from mouth but the nursing was started she has to wait on weekend. She is not happy with [facility]. Physical exam General: Awake, language deficit from her stroke. Has eye contact. HEENT: Atraumatic, PERRLA, EOMI, Normocephalic Oral: Oral mucosa moist. No Gingival or Mucosal Lesions/ Ulcerations Neck: Supple, No JVD, Negative Carotid Bruits Lungs: Air entry diminished in bilateral lung bases. No crepitation/rhonchi Cardiovascular: Regular rate, Regular Rhythm, Normal S1, Normal S2, No murmurs Abdomen: PEG tube. On Jevity tube feed.Bowel Sounds Present, Soft, Non Tender, Non-Distended : Zhu catheter in draining clear urine. Urinary retention No renal angle tenderness. No suprapubic tenderness. Extremities: No edema, Capillary Refill Less than 3 Seconds Skin: No rashes, No breakdown Musculoskeletal: No Tenderness to Palpation of Joints or Extremities Neurological: Massive stroke in April. Moderate to severe language deficit. Right-sided weakness. DTR 2+. Psych/Mental Status: Flat affect. Assessment & Plan Assessment/Plan (1) Encephalopathy: (2) Aspiration into airway: PLAN: Plan 1. Metabolic encephalopathy secondary to UTI and aspiration pneumonia and stroke in the past: Patient is admitted on PCU. Prelim sputum culture growing ESBL Klebsiella pneumoniae, Staph aureus and haemophilus influenza. Urine culture ESBL Klebsiella pneumoniae. ID consulted and reviewed. The patient antibiotic regimen Unasyn changed to meropenem. ID added vancomycin. Earlier, sepsis was ruled out. Patient has large left hemispheric stroke in April 2022 and was in [facility] for over a month. TSH unremarkable. B12 normal 720. Patient also with retention and has Zhu catheter. 2. CAD status post stent/HTN/HLD/chronic diastolic heart failure: Antihypertensive medications were held in the beginning. Blood pressure slowly went up mostly 140s to 160s systolic ? On Lipitor. Eliquis on hold. 3. Left hemispheric CVA/dysphagia ? He had a large stroke about a month ago and he was in the hospital for about a month and had a PEG tube placed ? Can continue with tube feeds 4. Anemia ? Unknown etiology. Patient was transfused PRBC. Stool for occult blood pending. On IV PPI. ? 5. 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 He is on Keytruda DVT: SCDs Microbiology Past 72 Hours 08/11/22 07:22 Sputum, Induced/Lukens Gram Stain - Final 08/11/22 07:22 Sputum, Induced/Lukens Respiratory Culture - Preliminary ESBL Klebsiella pneumoniae pne Staphylococcus aureus Haemophilus influenzae 08/11/22 04:00 Urine Catheter - Zhu Urine Culture - Preliminary ESBL Klebsiella pneumoniae pne 08/10/22 23:00 Blood Culture (Wb) - Left Hand Blood Culture - Preliminary No growth in 48 hours. 08/10/22 23:30 Blood Culture (Wb) - Right Hand Blood Culture - Preliminary No growth in 48 hours. 08/11/22 00:20 Nasal Secretion SARS-CoV-2 & FLU Antigen (Rapid) - Final Laboratory Results 08/11/22 11:10: Vitamin B12 720 08/13/22 05:55: WBC 5.8, RBC 2.84 L, Hgb 8.0 L, Hct 26.7 L, MCV 94.0, MCH 28.2, MCHC 30.0 L, RDW Std Deviation 55.3 H, RDW Coeff of Dipti 15.9 H, Plt Count 208, MPV 11.0, Immature Gran % (Auto) 1.400 H, Neut % (Auto) 73.1 H, Lymph % (Auto) 7.8 L, Letcher % (Auto) 14.8 H, Eos % (Auto) 2.6, Baso % (Auto) 0.3, Absolute Neuts (auto) 4.2, Absolute Lymphs (auto) 0.45 L, Nucleated RBC % 0, Differential Comment SCANNED 08/13/22 05:55: Sodium 149 H, Potassium 3.8, Chloride 121 H, Carbon Dioxide 24.0, Anion Gap 4 L, BUN 42 H, Creatinine 1.03, Estim Creat Clear Calc 69.99, Est GFR (MDRD) Af Amer 94, Est GFR (MDRD) Non-Af 77, BUN/Creatinine Ratio 40.8 H , Glucose 208 H, Calcium 8.4 L Charges/Coding Visit Charges Inpatient E&M: 02982 Subs Hosp L2
[2022-08-13 07:41] LABS: Anion Gap 4 (5-15); BUN 42 mg/dL (7-18); BUN/Creat Ratio 40.8 RATIO (10-20); Calcium,Total 8.4 mg/dL (8.5-10.1); Chloride 121 mmol/L (98-107); Creatinine, Serum 1.03 mg/dL (0.70-1.30); EST Glomerular Filtration Rate 77 mL/min (>60); Est Glom Filt Rate - Afr Amer 94 mL/min (>60); Estimated Creatinine Clearance 69.99 ml/min; Glucose 208 mg/dL (74-106); Potassium 3.8 mmol/L (3.5-5.1); Sodium Level 149 mmol/L (136-145)
[2022-08-13] MEDS: Aspirin 81 MG TAB.CHEW GT (07:59)
[2022-08-13] MEDS: Famotidine 20 MG Tablet 40 MG GT (07:59)
[2022-08-13] MEDS: Allopurinol 100 MG Tablet GT (07:59)
[2022-08-13 08:31] LABS: Differential Comment SCANNED
[2022-08-13 09:08] LABS: Vitamin B12 720 pg/mL (211-911)
--- NOTE | 2022-08-13 09:33 | CASEMGMT ---
Social Work SW spoke w/Ayana in TCU, they cannot take him. SW met w/pt's in room, spoke w/her about discharge plan. SW let know that TCU cannot take pt. SW inquired where else she would like referral sent. states she is taking pt home, is politely insistent she will take pt home. SW inquired how she will manage as pt is a two person assist. states her daughter lives in front of them, states her sister and other daughter can help. wants pt to take pt home w/home health care, and DME. SW explained we can try another facility with a better rating, still insisting she will take pt home. SW explained will let CM know. CM is aware, SW/CM will continue to follow for discharge planning. LIZZ Mar
--- NOTE | 2022-08-13 10:31 | WOUNDNOTE ---
present in room while assessing wounds. very upset with [facility]. states she turned them into state because of how bad the care was. states they let him choke on his own blood from his teeth. states she plans to take patient home from the hospital and care for him at home herself. states she has family that are nurses and some friends who will assist her with therapy for patient. states patient was only at [facility] for 2 days. Pt had been in [place] for approx 1 month before that.
[2022-08-13] MEDS: Acetaminophen 650 MG/20 ML UDC 500 MG GT (10:36)
[2022-08-13] MEDS: Jevity 1.5 1,000 ML 50 ML GT (10:36)
--- NOTE | 2022-08-13 11:50 | WOUNDNOTE ---
wound photo: left foot
--- NOTE | 2022-08-13 11:51 | WOUNDNOTE ---
wound photo: right foot
--- NOTE | 2022-08-13 11:52 | WOUNDNOTE ---
wound photo: mid back
--- NOTE | 2022-08-13 11:53 | WOUNDNOTE ---
wound photo: sacrum
--- NOTE | 2022-08-13 12:55 | CASEMGMT ---
Social Work SW spoke w/ again about her taking pt home, SW expressed concern about taking pt home. 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 She states she has a lot of family and they will all help, they all love this man. states she wants [facility] as home health for pt. states there is nothing anybody will be able to say to convince her to have pt go to a SNF. 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 LIZZ Mar
--- NOTE | 2022-08-13 14:08 | PCM.CONS.GEN ---
Assessment & Plan Assessment/Plan (1) UTI (urinary tract infection): (2) Encephalopathy: PLAN: Ucx with esbl klebs. Sputum cx with heavy staph aureus and esbl klebs. Prior MRSA pcr (+). On maureen, will add vanc empirically. Will follow, thank you (3) Aspiration into airway: HPI Consult Data Date of Consult: 08/13/22 HPI Narrative Reason for Consultation: esbl infection HPI Narrative: CLAY RUBIO, is a 62 M with recent stroke, was at [facility] for 2 days, sent to ED due to unresponsiveness, fever, thick sputum. Admitted 08/11 on unasyn, changed to meropenem once sputum and ucx with ESBL. Full ROS performed, pt says no to all questions. [facility] Medical History Abdominal pain Acute bronchitis RAFA (acute kidney injury) Alcohol abuse Anemia Atherosclerosis of coronary artery without angina pectoris 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[place] coronary artery w/angina pectoris Bacteremia Bone cancer Bradycardia Cataracts, both eyes Charcot's joint, left ankle and foot Chronic diastolic (congestive) heart failure Chronic pain Diabetes mellitus, type II Diabetic retinopathy Diastolic dysfunction with acute on chronic heart failure Essential hypertension GERD (gastroesophageal reflux disease) Hammer toe of left foot HLD (hyperlipidemia) Hyponatremia Infection of left foot Iron deficiency anemia 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 MSSA bacteremia Nephrotic syndrome Neuropathy Non-smoker Normocytic anemia Obesity (BMI 30.0-34.9) Osteomyelitis PAD (peripheral artery disease) Postoperative atrial fibrillation (06/12/18) 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) Secondary pulmonary arterial hypertension Sinus bradycardia Syncope Type 2 diabetes mellitus Ulcer of left foot Home Medications aspirin 81 mg tablet,delayed release 81 mg PO DAILY heart health 09/09/18 [History Last Taken 06/13/22] nitroglycerin 0.4 mg sublingual tablet 0.4 mg sublingual Q5M PRN Cardiac/Chest Pain #25 tabs 10/17/18 [Rx Last Taken 08/08/19] atorvastatin 40 mg tablet 40 mg PO QHS cholesterol #90 tabs 01/18/21 [Rx Last Taken 06/13/22] methadone 5 mg tablet 5 mg PO QHS PAIN 05/10/21 [History Last Taken 06/13/22] sennosides 8.6 mg-docusate sodium 50 mg tablet (Senexon-S) 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 05/10/21 [History Last Taken 06/13/22] blood ketone glucose monitor #1 ea 06/06/21 [History Last Taken Unknown] lancets #100 ea 06/06/21 [History Last Taken Unknown] lisinopril 20 mg tablet 40 mg PO BID bp 06/13/21 [History Last Taken 06/13/22] allopurinol 100 mg tablet 100 mg feeding tube DAILY gout 09/06/21 [History Last Taken 06/13/22] famotidine 40 mg tablet 20 mg PO DAILY GERD 09/13/21 [History Last Taken 06/13/22] gabapentin 100 mg capsule 200 mg PO TID NEUROPATHY 09/13/21 [History Last Taken 06/13/22] oxycodone 10 mg tablet 10 mg PO Q4H PRN Pain 09/13/21 [History Last Taken 06/14/22 06:00] pembrolizumab 25 mg/mL intravenous solution (Keytruda) 25 mg IV .UD CANCER 09/13/21 [History Last Taken 06/06/22] ferrous fumarate 324 mg (106 mg iron) tablet (Ferrocite) 324 mg PO BID supplement 04/16/22 [History Last Taken 06/13/22] tamsulosin 0.4 mg capsule 0.4 mg PO QHS prostate 04/16/22 [History Last Taken 06/13/22] hydralazine 50 mg tablet 50 mg PO TID 90 days #270 tabs 04/23/22 [Rx Last Taken 06/13/22] cephalexin 500 mg capsule 500 mg PO TID infection 05/16/22 [History Last Taken 06/13/22] furosemide 40 mg tablet 40 mg PO QHS water #90 tabs 06/12/22 [Rx Last Taken 06/13/22] acetaminophen 500 mg tablet (Acetaminophen Extra Strength) 500 mg PO Q6H PRN Pain 06/14/22 [History Last Taken 06/13/22] ergocalciferol (vitamin D2) 1,250 mcg (50,000 unit) capsule 1,250 mcg PO SA SUPPLEMENT 06/14/22 [History Last Taken 06/09/22] acetaminophen 650 mg rectal suppository 650 mg NE Q4H PRN PRN Fever 08/10/22 [History Last Taken Unknown] amlodipine 10 mg tablet 10 mg feeding tube DAILY bp 08/10/22 [History Last Taken Unknown] apixaban 5 mg tablet 5 mg PO BID blood thinner 08/10/22 [History Last Taken Unknown] baclofen 5 mg oral granules in packet 5 mg PO TID muscle spasm 08/10/22 [History Last Taken Unknown] bisacodyl 10 mg rectal suppository 10 mg NE DAILY PRN Constipation 08/10/22 [History Last Taken Unknown] carvedilol 25 mg tablet 25 mg PO BID BP 08/10/22 [History Last Taken Unknown] doxazosin 4 mg tablet 4 mg PO QHS BPH 08/10/22 [History Last Taken Unknown] Allergy/AdvReac Type Severity Reaction Status Date / Time Penicillins [PCN] Allergy Unknown Verified 06/29/22 15:08 morphine AdvReac Mild confusion Verified 06/29/22 15:08 Family History Mother Diabetes Parkinson disease Grandmother Cancer Surgical History Amputated toe of left foot (08/2018) H/O coronary artery bypass surgery (06/12/18) H/O eye surgery History of left heart catheterization (05/20/18) Hx of cholecystectomy S/P meniscectomy Social History household members: spouse Smoking Status: Unknown if ever smoked alcohol intake: current alcohol intake frequency: a few times a week substance use type: does not use caffeine: No Physical Exam Const Constitutional Narrative: oriented x0 General Appearance: lethargic HEENT normocephalic and head/scalp atraumatic Eyes PERRL and EOMs intact bilaterally Neck supple and No nodes Resp Auscultation: diminished lung sounds Cardio regular rate and regular rhythm GI soft to palpation, non-tender and non-distended Extremity General Extremity: Negative for edema Skin no rashes or lesions noted Neuro Neuro Narrative: Right sided weakness Lab / Micro Data Attestation: I reviewed the patient's lab results. Result Diagrams: 08/13/22 05:55 08/13/22 05:55 Labs: Laboratory Results - last 24 hr 08/11/22 11:10: Vitamin B12 720 08/13/22 05:55: WBC 5.8, RBC 2.84 L, Hgb 8.0 L, Hct 26.7 L, MCV 94.0, MCH 28.2, MCHC 30.0 L, RDW Std Deviation 55.3 H, RDW Coeff of Dipti 15.9 H, Plt Count 208, MPV 11.0, Immature Gran % (Auto) 1.400 H, Neut % (Auto) 73.1 H, Lymph % (Auto) 7.8 L, Nicholas % (Auto) 14.8 H, Eos % (Auto) 2.6, Baso % (Auto) 0.3, Absolute Neuts (auto) 4.2, Absolute Lymphs (auto) 0.45 L, Nucleated RBC % 0, Differential Comment SCANNED 08/13/22 05:55: Sodium 149 H, Potassium 3.8, Chloride 121 H, Carbon Dioxide 24.0, Anion Gap 4 L, BUN 42 H, Creatinine 1.03, Estim Creat Clear Calc 69.99, Est GFR (MDRD) Af Amer 94, Est GFR (MDRD) Non-Af 77, BUN/Creatinine Ratio 40.8 H, Glucose 208 H, Calcium 8.4 L Micro: Microbiology 08/11/22 07:22 Sputum, Induced/Lukens Gram Stain - Final 08/11/22 07:22 Sputum, Induced/Lukens Respiratory Culture - Preliminary ESBL Klebsiella pneumoniae pne Staphylococcus aureus 08/11/22 04:00 Urine Catheter - Zhu Urine Culture - Preliminary ESBL Klebsiella pneumoniae pne 08/10/22 23:00 Blood Culture (Wb) - Left Hand Blood Culture - Preliminary No growth in 48 hours. 08/10/22 23:30 Blood Culture (Wb) - Right Hand Blood Culture - Preliminary No growth in 48 hours.
[2022-08-13] MEDS: Juven (unflavored) Packet 1 PACKET PO (16:01)
--- NOTE | 2022-08-13 16:15 | PCM.RX.CS ---
Consult Pharmacy has been consulted to manage selected antiobiotic: Vancomycin Type of Consult: Follow-up Prior Doses of Antibiotics Received/Current Regimen: Medications Vancomycin HCl 1,750 mg/ (Sodium Chloride) 535 mls @ 250 mls/hr IV X1 ONE Stop: 08/13/22 17:08 Last Admin: 08/13/22 16:00 Dose: 250 mls/hr Labs: Sodium 149 mmol/L (136-145) H 08/13/22 05:55 Potassium 3.8 mmol/L (3.5-5.1) 08/13/22 05:55 Chloride 121 mmol/L (98-107) H 08/13/22 05:55 Carbon Dioxide 24.0 mmol/L (21.0-32.0) 08/13/22 05:55 Anion Gap 4 (5-15) L 08/13/22 05:55 BUN 42 mg/dL (7-18) H 08/13/22 05:55 Creatinine 1.03 mg/dL (0.70-1.30) 08/13/22 05:55 Est GFR (MDRD) Af Amer 94 mL/min (>60) 08/13/22 05:55 Est GFR (MDRD) Non-Af 77 mL/min (>60) 08/13/22 05:55 BUN/Creatinine Ratio 40.8 RATIO (10-20) H 08/13/22 05:55 Glucose 208 mg/dL (74-106) H 08/13/22 05:55 Microbiology: Microbiology 08/11/22 07:22 Sputum, Induced/Lukens Gram Stain - Final 08/11/22 07:22 Sputum, Induced/Lukens Respiratory Culture - Preliminary ESBL Klebsiella pneumoniae pne Staphylococcus aureus Haemophilus influenzae 08/11/22 04:00 Urine Catheter - Zhu Urine Culture - Preliminary ESBL Klebsiella pneumoniae pne 08/10/22 23:00 Blood Culture (Wb) - Left Hand Blood Culture - Preliminary No growth in 48 hours. 08/10/22 23:30 Blood Culture (Wb) - Right Hand Blood Culture - Preliminary No growth in 48 hours. 08/11/22 00:20 Nasal Secretion SARS-CoV-2 & FLU Antigen (Rapid) - Final Weight used for dosin kg Estimated Creatinine Clearance: 70 Goal Trough: 15-20 mcg/mL Pharmacy Plan for Drug Dosinmg x1, 1000mg IV q12h with trough prior to 4th dose. Pharmacy Service will continue to monitor and adjust dosing as required. Follow-Up Labs: Trough Vancomycin - 08/15 @ 6288
[2022-08-13] MEDS: Carvedilol 25 MG Tablet 12.5 MG PO (17:34)
[2022-08-13] MEDS: Doxazosin 4 MG Tablet PO (21:59)
[2022-08-13] MEDS: Atorvastatin Calcium 40 MG Tablet GT (22:00)
[2022-08-14] VITALS (7 sets, daily range): BP systolic 145–179; BP diastolic 68–84; PULSE 67–77; RESP 14–18; TEMP 36.1–37.3; O2SAT 97–99; BMI 20.7
[2022-08-14] MEDS: 0.9% Saline Lock 10 ML Syringe IV ×2 (00:50→21:26)
[2022-08-14] MEDS: hydrALAZINE 20 MG/ML Vial 5 MG IV (00:50)
[2022-08-14] MEDS: Vancomycin IV 1,000 MG/200 ML BAG 200 MG IV ×2 (03:48→16:47)
[2022-08-14] MEDS: Baclofen 10 MG Tablet 5 MG GT ×3 (06:14→23:40)
[2022-08-14] MEDS: Jevity 1.5 1,000 ML 50 ML GT (06:15)
[2022-08-14 07:22] LABS: Absolute Lymphocyte Count 0.54 X10^3/uL (0.83-4.51); Absolute Neutrophil Count 3.9 X10^3/uL (2.0-7.7); Basophil# 0.02 X10^3/uL; Basophil% 0.4 % (0-1); Eosinophil# 0.19 X10^3/uL; Eosinophils% 3.4 % (0-5); Hematocrit 27.5 % (40-54); Hemoglobin 8.5 g/dL (13.0-16.5); Lymphocyte # 0.54 X10^3/ul (0.83-4.51); Lymphocyte % 9.6 % (19-41); Mean Corp Hgb Conc 30.9 g/dL (32-36); Mean Corpuscular Hgb 29.3 pg (27.0-32.0); Mean Corpuscular Volume 94.8 fL (80-94); Mean Platelet Vol. 10.4 fl (6.2-12.0); Monocyte# 0.91 X10^3/uL; Monocyte% 16.2 % (0-10); NRBC Flagged by Analyzer 0 % (0-5); Neutrophil # 3.86 X10^3/uL (2.7-7.7); Neutrophil % 68.6 % (47-70); POSITIVE DIFFERENTIAL YES; Platelet Count 205 K/mm3 (150-450); RBC Distribution Width CV 15.6 % (11.6-14.6); RBC Distribution Width SD 54.5 fl (35.1-43.9); White Blood Count 5.6 K/mm3 (4.4-11.0)
[2022-08-14 07:25] LABS: Differential Indicated SCAN CRITERIA MET
[2022-08-14] MEDS: Carvedilol 25 MG Tablet 12.5 MG PO ×2 (07:36→16:47)
[2022-08-14] MEDS: Allopurinol 100 MG Tablet GT (07:36)
[2022-08-14] MEDS: Aspirin 81 MG TAB.CHEW GT (07:37)
[2022-08-14] MEDS: Famotidine 20 MG Tablet 40 MG GT (07:37)
[2022-08-14] MEDS: Juven (unflavored) Packet 1 PACKET PO ×2 (07:37→16:47)
[2022-08-14 07:59] LABS: Differential Comment SCANNED
[2022-08-14 08:00] LABS: Anion Gap 5 (5-15); BUN 33 mg/dL (7-18); BUN/Creat Ratio 34.7 RATIO (10-20); Calcium,Total 8.4 mg/dL (8.5-10.1); Chloride 123 mmol/L (98-107); Creatinine, Serum 0.95 mg/dL (0.70-1.30); EST Glomerular Filtration Rate 85 mL/min (>60); Est Glom Filt Rate - Afr Amer 103 mL/min (>60); Estimated Creatinine Clearance 77.33 ml/min; Glucose 233 mg/dL (74-106); Potassium 3.8 mmol/L (3.5-5.1); Sodium Level 151 mmol/L (136-145)
--- NOTE | 2022-08-14 09:15 | PN.HOSP_ITS ---
Reason for Visit Reason for Visit: Diagnoses Encephalopathy, unspecified (08/11/22) Urinary tract infection, site not specified (08/11/22) Altered mental status, unspecified (08/11/22) Unspecified foreign body in respiratory tract, part unspecified causing other injury, initial encounter (08/11/22) Objective Data Objective Data Vital Signs: Vital Signs Temp Pulse Resp BP Pulse Ox O2 Del Method O2 Flow Rate 96.9 F L 75 18 154/84 H 97 Room Air 2 08/14/22 07:40 08/14/22 07:40 08/14/22 07:40 08/14/22 07:40 08/14/22 07:40 08/14/22 07:40 08/12/22 12:00 Oxygen Flow Rate (L/min) 2 Oxygen Delivery Method Room Air Weight: 153 lb 7.068 oz Body Mass Index (BMI) 20.7 Intake & Output: Intake and Output for Last 24 Hours 08/12/22 08/13/22 08/14/22 23:59 23:59 23:59 Intake Total 1591.00 / 1741.00 2721.5 / 2721.5 4325.5 / 4325.5 Output Total 1500 / 2250 3250 / 3250 850 / 850 Balance 91.00 / -509.00 -528.5 / -528.5 3475.5 / 3475.5 Lab / Micro Data Result Diagrams: 08/14/22 07:10 08/14/22 07:10 Labs: Laboratory Results - last 24 hr 08/14/22 07:10: WBC 5.6, RBC 2.90 L, Hgb 8.5 L, Hct 27.5 L, MCV 94.8 H, MCH 29.3, MCHC 30.9 L, RDW Std Deviation 54.5 H, RDW Coeff of Dipti 15.6 H, Plt Count 205, MPV 10.4, Immature Gran % (Auto) 1.800 H, Neut % (Auto) 68.6, Lymph % (Auto) 9.6 L, Mckinley % (Auto) 16.2 H, Eos % (Auto) 3.4, Baso % (Auto) 0.4, Absolute Neuts (auto) 3.9, Absolute Lymphs (auto) 0.54 L, Nucleated RBC % 0, Differential Comment SCANNED 08/14/22 07:10: Sodium 151 H, Potassium 3.8, Chloride 123 H, Carbon Dioxide 23.0, Anion Gap 5, BUN 33 H, Creatinine 0.95, Estim Creat Clear Calc 77.33, Est GFR (MDRD) Af Amer 103, Est GFR (MDRD) Non-Af 85, BUN/Creatinine Ratio 34.7 H, Glucose 233 H, Calcium 8.4 L Micro: Microbiology 08/11/22 07:22 Sputum, Induced/Lukens Gram Stain - Final 08/11/22 07:22 Sputum, Induced/Lukens Respiratory Culture - Preliminary ESBL Klebsiella pneumoniae pne Staphylococcus aureus Haemophilus influenzae 08/11/22 04:00 Urine Catheter - Zhu Urine Culture - Final ESBL Klebsiella pneumoniae pne 08/10/22 23:00 Blood Culture (Wb) - Left Hand Blood Culture - Preliminary No growth in 48 hours. 08/10/22 23:30 Blood Culture (Wb) - Right Hand Blood Culture - Preliminary No growth in 48 hours. 08/11/22 00:20 Nasal Secretion SARS-CoV-2 & FLU Antigen (Rapid) - Final Physical Exam Narrative Seen and examined. Patient sleepy and lethargic in the morning. His sodium and chloride are high. No fever. Pulse ox 97% on room air. Physical exam General: Awake unremarkable, sleepy and lethargic. Language deficit from pre vious stroke. Has eye contact. HEENT: Atraumatic, PERRLA, EOMI, Normocephalic Oral: Oral mucosa moist. No Gingival or Mucosal Lesions/ Ulcerations Neck: Supple, No JVD, Negative Carotid Bruits Lungs: Air entry diminished in bilateral lung bases. No crepitation/rhonchi Cardiovascular: Regular rate, Regular Rhythm, Normal S1, Normal S2, No murmurs Abdomen: PEG tube. On Jevity tube feed.Bowel Sounds Present, Soft, Non Tender, Non-Distended : Zhu catheter in draining clear urine. Urinary retention. No renal angle tenderness. No suprapubic tenderness. Extremities: No edema, Capillary Refill Less than 3 Seconds Skin: No rashes, No breakdown Musculoskeletal: No Tenderness to Palpation of Joints or Extremities Neurological: Massive stroke in April. Moderate to severe language deficit. Right-sided weakness. DTR 2+. Psych/Mental Status: Flat affect. Assessment & Plan Assessment/Plan (1) Encephalopathy: (2) Aspiration into airway: PLAN: Plan 1. Metabolic encephalopathy secondary to UTI and aspiration pneumonia and stroke in the past: Patient is admitted on PCU. Prelim sputum culture growing ESBL Klebsiella pneumoniae, Staph aureus and haemophilus influenza. Urine culture ESBL Klebsiella pneumoniae. ID consulted and reviewed. The patient antibiotic regimen Unasyn changed to meropenem. ID added vancomycin. Earlier, sepsis was ruled out. Patient has large left hemispheric stroke in April 2022 and was in [facility] for over a month. TSH unremarkable. B12 normal 720. Patient also with retention and has Zhu catheter. 2: Patient is still sleepy and lethargic and encephalopathy. Multiple etiologies including metabolic, infectious UTI aspiration pneumonia and previous stroke. Patient has hypernatremia, hyperchloremia, bicarb normal at 23. Free water about 2 L in 24 hours, 350 mL every 4 hours. Sputum culture positive of ESBL, MRSA and haemophilus influenza. Patient on vancomycin and meropenem. Urine retention, most likely due to BPH: Patient has Zhu catheter. Cardura resumed. On DC Zhu catheter and a spontaneous voiding trial tomorrow AM. 2. CAD status post stent/HTN/HLD/chronic diastolic heart failure and post CABG A-fib: Antihypertensive medications were held in the beginning. Blood pressure slowly went up mostly 140s to 160s systolic ? On Lipitor. Eliquis on hold. 08/14: The patient's stated that the patient was coughing blood from mouth but the nursing was started she has to wait on weekend. She is not happy with [facility]. Patient was on Eliquis 5 mg twice daily which is decreased to 2.5 mg twice daily, first dose tonight. Monitor CBC. 3. Left hemispheric CVA/dysphagia ? He had a large stroke about a month ago and he was in the hospital for about a month and had a PEG tube placed ? Can continue with tube feeds 4. Anemia ? Unknown etiology. Patient was transfused PRBC. Stool for occult blood pending. On IV PPI. 5. 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 He is on Keytruda DVT: SCDs Charges/Coding Visit Charges Inpatient E&M: 23969 Subs Hosp L2
--- NOTE | 2022-08-14 09:59 | PCM.PN.ID ---
Physical Exam Narrative Sleeping, no fever Const no apparent distress Resp normal air movement and clear to auscultation bilaterally Cardio regular rate and regular rhythm GI soft to palpation, non-tender and non-distended Skin no rashes or lesions noted ID ID: Route of nutrition/ use of supplements: [] Nutritional Intake: [] IV Site: [] Zhu Catheter: [] Assessment & Plan Assessment/Plan (1) UTI (urinary tract infection): (2) Encephalopathy: PLAN: Ucx with esbl klebs. Sputum cx with heavy staph aureus and esbl klebs. Prior MRSA pcr (+). On maureen, 08/13 added vanc empirically. Will follow (3) Aspiration into airway:
[2022-08-14] MEDS: Jevity 1.5. 1,000 ML Bottle 250 ML GT ×2 (16:51→23:39)
[2022-08-14] MEDS: Atorvastatin Calcium 40 MG Tablet GT (23:35)
[2022-08-14] MEDS: APIXABAN 2.5 MG TABLET (WCH) PO (23:35)
[2022-08-14] MEDS: Doxazosin 4 MG Tablet PO (23:35)
[2022-08-15 01:18] VITALS: BMI 20.7
[2022-08-15 01:40] VITALS: BP 155/82; PULSE 73; RESP 17; TEMP 37.2; O2SAT 97
[2022-08-15 03:42] VITALS: BMI 21.4
[2022-08-15] MEDS: Vancomycin IV 1,000 MG/200 ML BAG 200 MG IV ×2 (03:56→17:30)
[2022-08-15 04:00] VITALS: BP 147/52; PULSE 69; RESP 18; TEMP 36.9; O2SAT 97
[2022-08-15 05:59] LABS: Absolute Lymphocyte Count 0.65 X10^3/uL (0.83-4.51); Absolute Neutrophil Count 4.1 X10^3/uL (2.0-7.7); Basophil# 0.03 X10^3/uL; Basophil% 0.5 % (0-1); Eosinophil# 0.19 X10^3/uL; Eosinophils% 3.3 % (0-5); Hematocrit 27.1 % (40-54); Hemoglobin 8.4 g/dL (13.0-16.5); Lymphocyte # 0.65 X10^3/ul (0.83-4.51); Lymphocyte % 11.1 % (19-41); Mean Corpuscular Hgb 29.1 pg (27.0-32.0); Mean Corpuscular Volume 93.8 fL (80-94); Mean Platelet Vol. 10.9 fl (6.2-12.0); Monocyte# 0.83 X10^3/uL; Monocyte% 14.2 % (0-10); NRBC Flagged by Analyzer 0 % (0-5); Neutrophil # 4.05 X10^3/uL (2.7-7.7); Neutrophil % 69.5 % (47-70); Platelet Count 208 K/mm3 (150-450); RBC Distribution Width CV 15.4 % (11.6-14.6); RBC Distribution Width SD 53.5 fl (35.1-43.9); Red Blood Count 2.89 M/mm3 (4.6-6.2); White Blood Count 5.8 K/mm3 (4.4-11.0)
[2022-08-15] MEDS: Acetaminophen 650 MG/20 ML UDC 500 MG GT (06:21)
[2022-08-15] MEDS: Baclofen 10 MG Tablet 5 MG GT ×2 (06:22→15:55)
[2022-08-15] MEDS: Jevity 1.5. 1,000 ML Bottle 250 ML GT ×5 (06:28→21:42)
[2022-08-15 06:57] LABS: Anion Gap 6 (5-15); BUN 41 mg/dL (7-18); BUN/Creat Ratio 47.5 RATIO (10-20); Calcium,Total 8.5 mg/dL (8.5-10.1); Chloride 122 mmol/L (98-107); Creatinine, Serum 0.86 mg/dL (0.70-1.30); EST Glomerular Filtration Rate 95 mL/min (>60); Est Glom Filt Rate - Afr Amer 115 mL/min (>60); Estimated Creatinine Clearance 88.13 ml/min; Glucose 159 mg/dL (74-106); Potassium 3.8 mmol/L (3.5-5.1); Sodium Level 153 mmol/L (136-145)
[2022-08-15 10:21] VITALS: BP 171/88; PULSE 65; RESP 16; TEMP 36.7; O2SAT 96
[2022-08-15] MEDS: Aspirin 81 MG TAB.CHEW GT (10:26)
[2022-08-15] MEDS: Carvedilol 25 MG Tablet 12.5 MG PO ×2 (10:26→16:13)
[2022-08-15] MEDS: Famotidine 20 MG Tablet 40 MG GT (10:26)
[2022-08-15] MEDS: Allopurinol 100 MG Tablet GT (10:26)
[2022-08-15] MEDS: APIXABAN 2.5 MG TABLET (WCH) PO ×2 (10:26→21:42)
--- NOTE | 2022-08-15 10:53 | CASEMGMT ---
Addendum entered by Mirta Montiel 08/15/22 14:29: LLOYD GAO received call back from PCP office and PCP is willing to follow for tube feeds. LLOYD GAO received script and referral sent to [facility]. LLOYD GAO called [facility] to inquire about delivery time. Per marketing representative, [employer] is shipped from supplier directly to patient with delivery within 2-5 business days. LLOYD GAO received response from [facility] and they are able to accept the patient. CM will continue to follow this patient and plan for a safe discharge. Original Note: LLOYD GAO in to discuss discharge planning with at bedside. Per , she would like [facility] and palliative care setup for patient. states she prefers [facility]. A list of [facility] providers including quality and resource use data and consistent with the patient?s preferred geographical region, medical needs, and insurance network were provided from the [facility] Guide. states she prefers [facility] as they have had him in the past. LLOYD GAO reviewed DME agencies for tube feeds and would like [facility]. states she has adjustable bed and ordered side rail for at home. Patient also has walker, wheelchair, shower chair, lift chair at home. states she is purchasing BSC. denied other needs at this time. Script received from contact assembler for tube feeds. LLOYD GAO called PCP Dr. Smith's office to inquire if he would sign script for tube feeds, message left awaiting return call. LLOYD GAO called [place] liaison at [facility], regarding HHC referral, clinical inforamtion sent via [facility]. LLOYD GAO updated hospitalist regarding 's request for palliative consult. Order received from hospitalist. Palliative screening tool completed and referral sent to [facility] via email. CM will continue to follow this patient and plan for a safe discharge.
--- NOTE | 2022-08-15 10:58 | CASEMGMT ---
Discharge Planning Referral sent to [facility] via [facility] for PT/[place]/ST/[place] [facility]. Priscila Gee
--- NOTE | 2022-08-15 14:05 | SP.MBSS_ITS ---
Modified Barium Swallow - Patient Information Study Date: 08/15/22 Study Time: 13:00 Direct Billable Minutes: 120 Total Minutes procedure & reportin Diagnosis: Cerebral arteriosclerosis w/hx of CVA I67.2, Aspiration T17.908A Referring Physician: Luis Antonio Mak Reason for Referral: Objectively assess swallow function, assess risk for aspiration, and determine recommendations for least restrictive diet textures and compensatory strategies to improve safety of swallow. Medical History: Sacha Jones is a 62-year-old male with PMH of CVA who per spent 34 days at [facility] because of CVA and was transferred to [facility] 2 days ago for rehabilitation presents to the emergency department 08/11/2022 with unresponsiveness. Associated with his symptoms is temperature [facility] 103.5 F[facility]. Also, patient was noted to have blood in his mouth and by his teeth. Emergency doctor reports that at the ED a thick yellow secretion was suctioned from patient's mouth. Patient's stroke affected his right upper extremity and his right lower extremity. Regarding his recent stroke, reportedly he was intubated for about a week, extubated, and then reintubated for another week. He subsequently had a PEG tube placed. His reported that a day before presentation she did not see patient move either his right side or his left side. 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 BSE completed during admission recommending NPO. INDUSTRIAL MAINTENANCE ELECTRICIAN did advance patient to NPO with sips and chips as alertness improved and has recommended the patient for MBSS to objectively assess swallow function and aspiration risk. Current Diet Ordered: NPO w/ sips and chips Dentition: Natural Teeth Mental Status: Impaired Respiratory Status: Oxygenating on Room Air - Penetration-Aspiration Scale Penetration-Aspiration Scale: OBJECTIVE ASSESSMENT OF SWALLOW FUNCTION (QUANTITATIVE ? PER TRIAL): PENETRATION / ASPIRATION SCALE (GARCES): 1 = does not enter airway 2 = enters airway/above vocal folds/ejected 3 = enters airway/above vocal folds/not ejected 4 = enters airway/contacts vocal folds/ejected 5 = enters airway/contacts vocal folds/not ejected 6 = enters airway/below vocal folds/ejected 7 = enters airway/below vocal folds/not ejected despite effort 8 = enters airway/below vocal folds/no effort VIDEOFLOROSCOPIC SCALE SCORE (GARCES): Grade I = aspiration of material that has penetrated into the laryngeal vestibule, intact cough reflex Grade II = aspiration < 10 % of the bolus, intact cough reflex Grade III = aspiration of < 10 % of the bolus, reduced cough reflex or aspiration of > 10 % of the bolus, intact cough reflex Grade IV = aspiration of > 10 % of the bolus, reduced cough reflex - Penetration-Aspiration Scale Score Thin Liquid via teaspoon Result: 7= enters airways/below vocal folds/not ejected despite effort - delayed cough Thin Liquid via teaspoon Trial 2 Result: 7= enters airways/below vocal folds/not ejected despite effort - immediate coughing Dunellen Thick Liquid via teaspoon Result: 1= does not enter airway Dunellen Thick Liquid via small single sip from cup Result: 2= enter airway/above vocal folds/ejected Pudding via teaspoon w/esophageal screen Result: 1= does not enter airway - Post prandial penetration of nectar by cup Dunellen Thick Liquid via teaspoon Trial 2 Result: 1= does not enter airway - Oral Phase Labial Seal: Escape beyond mid-chin Tongue Control During Bolus Hold: Posterior escape of greater than half of bolus Bolus Transport/Lingual Motion: Repetitive/disorganized tongue motion Oral Residue: Trace residue lining oral structures - Pharyngeal Phase Initiation of Pharyngeal Swallow: Bolus head in pyriforms Soft Palate Elevation: No bolus between soft palate and pharyngeal wall Laryngeal Elevation: Partial superior movement thyroid cart/partial apprx aryt- epig petiole Anterior Hyoid Excursion: Partial anterior movement Epiglottic Movement: Complete inversion Laryngeal Vestibule Closure at Height of Swallow: Incomplete; narrow column of air/contrast in laryngeal vestibule Pharyngeal Stripping Wave: Present - diminished Pharyngoesophageal Segment Opening: Parital distension and partial duration; parital obstruction of flow Tongue Base Retraction: Narrow column of contrast between tongue base & post. pharyngeal wall Pharyngeal Residue: Collection of residue within or on pharyngeal structures - Esophageal Phase Esophageal Clearance: Complete clearance - Diagnosis/Impression Diagnosis: Moderate-severe oropharyngeal phase dysphagia (R13.12) Impression: The oral phase is primarily marked by... -Decreased bolus control with >1/2 of the bolus spilling posteriorly to the pyriforms prior to swallow onset observed with thin liquids especially. -Prolonged tongue motion for A-P transport, repetitive disorganized tongue movement throughout all trials. -Decreased lingual movement/control, leading to delayed swallow onset, despite verbal and visual cues from INDUSTRIAL MAINTENANCE ELECTRICIAN to initiate swallow.?? ? The pharyngeal phase is primarily marked by... -Moderately decreased airway closure during the swallow due to partial anterior hyoid excursion and decreased laryngeal elevation. -Moderately decreased tongue base retraction, mildly decreased UES opening/d uration, and mildly reduced pharyngeal stripping wave with resulting moderate pharyngeal residues after the swallow. -Laryngeal penetration of nectar/mildly thick liquids by cup, staying above the vocal folds, which did not reliably eject placing patient at risk for post prandial aspiration. -Both immediate and delayed cough in response to aspiration during swallow with thin liquids, which did not reliably eject. ? The esophageal phase was grossly within normal limits. - Recommendations Diet: Puree Textures, Dunellen-thick Liquids Comment: FOOD AND DRINK ONLY IF FULLY ALERT Compensatory Strategies: Small Bites, Liquid by Teaspoon Only, Slow Rate, Sitting upright, Minimize/decrease distractions Supervision: Total Feed Recommend Repeat Modified Barium Swallow: Yes - 4-8 weeks Need for Skilled Speech Therapy Services: Yes Comment: Recommend dysphagia therapy to follow for diet tolerance and train pt's family in safe swallowing strategies to decrease risk for aspiration. When patient is able to, will recommend oropharyngeal and oral motor exercises (lingual resistance and coordination exercises, labial strength/ROM exercises, effortful swallows, CTAR, and Sandra). Education Completed: 1. Described result of evaluation., 7. Pt requires further education on strategies & risks. - Status Active ST Patient: Active - Contact Information [facility] Speech Therapy:: Princess Goldberg M.A. [facility]-INDUSTRIAL MAINTENANCE ELECTRICIAN Speech-Language Pathologist [facility] [address] [place] [address] [email or web address] [phone] 08/15/22 14:39
[2022-08-15 15:07] VITALS: BP 153/77; PULSE 65; RESP 18; TEMP 36.6; O2SAT 98
--- NOTE | 2022-08-15 15:27 | PCM.PN.HOSP ---
Reason for Visit Reason for Visit: Diagnoses Encephalopathy, unspecified (08/11/22) Urinary tract infection, site not specified (08/11/22) Altered mental status, unspecified (08/11/22) Unspecified foreign body in respiratory tract, part unspecified causing other injury, initial encounter (08/11/22) Objective Data Objective Data Vital Signs: Vital Signs Temp Pulse Resp BP Pulse Ox O2 Del Method O2 Flow Rate 97.9 F 65 18 153/77 H 98 Room Air 2 08/15/22 15:07 08/15/22 15:07 08/15/22 15:07 08/15/22 15:07 08/15/22 15:07 08/15/22 15:07 08/12/22 12:00 Oxygen Flow Rate (L/min) 2 Oxygen Delivery Method Room Air Weight: 158 lb 4.67 oz Body Mass Index (BMI) 21.4 Intake & Output: Intake and Output for Last 24 Hours 08/13/22 08/14/22 08/15/22 23:59 23:59 23:59 Intake Total 2721.5 / 2721.5 5525.5 / 5525.5 1940 / 1940 Output Total 3250 / 3250 2400 / 2400 350 / 350 Balance -528.5 / -528.5 3125.5 / 3125.5 1590 / 1590 Medical Nutrition Assessment Dietitian: Malnutrition Criteria Met Start: 08/15/22 14:22 Freq: Status: Active Protocol: Document 08/15/22 14:22 AG (Rec: 08/15/22 14:22 AG [id number]) Nutrition Malnutrition Evidence of Malnutrition Exists No Intake Problem Increased Nutrient Needs (specify) Etiology protein related to skin status Signs/Symptoms as evidenced by PI to buttock/ midback and L 2nd toe and R 5th toe, lateral R foot Status Active Problem Inadequate Oral Intake Etiology related to aspiration pneumonia Signs/Symptoms as evidenced by NPO status Status Active Problem Recommendation Dietitian Recommendations/Changes NPO per MONUMENT MASON; continue via PEG- Jevity 1.5 250mL bolus 5x/day to provide 1875 calories, 79 g protein. Will increase flushes to 120mL before and after each bolus to provide 2150mL fluid/day given hypernatremia. Sujit BID via PEG for wounds. Will monitor ability to resume PO diet and adjust EN as indicated. Lab / Micro Data Result Diagrams: 08/15/22 04:18 08/15/22 04:18 Labs: Laboratory Results - last 24 hr 08/15/22 04:18: WBC 5.8, RBC 2.89 L, Hgb 8.4 L, Hct 27.1 L, MCV 93.8, MCH 29.1, MCHC 31.0 L, RDW Std Deviation 53.5 H, RDW Coeff of Dipti 15.4 H, Plt Count 208, MPV 10.9, Immature Gran % (Auto) 1.400 H, Neut % (Auto) 69.5, Lymph % (Auto) 11.1 L, [place] % (Auto) 14.2 H, Eos % (Auto) 3.3, Baso % (Auto) 0.5, Absolute Neuts (auto) 4.1, Absolute Lymphs (auto) 0.65 L, Nucleated RBC % 0 08/15/22 04:18: Sodium 153 H, Potassium 3.8, Chloride 122 H, Carbon Dioxide 25.0, Anion Gap 6, BUN 41 H, Creatinine 0.86, Estim Creat Clear Calc 88.13, Est GFR (MDRD) Af Amer 115, Est GFR (MDRD) Non-Af 95, BUN/Creatinine Ratio 47.5 H, Glucose 159 H, Calcium 8.5 Micro: Microbiology 08/11/22 07:22 Sputum, Induced/Lukens Gram Stain - Final 08/11/22 07:22 Sputum, Induced/Lukens Respiratory Culture - Final ESBL Klebsiella pneumoniae pne Meth. resistant Staph. aureus Haemophilus influenzae 08/11/22 04:00 Urine Catheter - Zhu Urine Culture - Final ESBL Klebsiella pneumoniae pne 08/10/22 23:00 Blood Culture (Wb) - Left Hand Blood Culture - Preliminary No growth in 48 hours. 08/10/22 23:30 Blood Culture (Wb) - Right Hand Blood Culture - Preliminary No growth in 48 hours. 08/11/22 00:20 Nasal Secretion SARS-CoV-2 & FLU Antigen (Rapid) - Final Physical Exam Narrative Seen and examined. Patient awakes on verbal command. Otherwise he nods and sleeps. His sodium and chloride are high. No fever. Pulse ox 97% on room air. Physical exam General: Awake. Lethargy.. Language deficit from previous stroke. Has eye contact. HEENT: Atraumatic, PERRLA, EOMI, Normocephalic Oral: Oral mucosa moist. No Gingival or Mucosal Lesions/ Ulcerations Neck: Supple, No JVD, Negative Carotid Bruits Lungs: Air entry diminished in bilateral lung bases. No crepitation/rhonchi no oxygen. Cardiovascular: Regular rate, Regular Rhythm, Normal S1, Normal S2, No murmurs Abdomen: PEG tube. On Jevity tube feed.Bowel Sounds Present, Soft, Non Tender, Non-Distended : Zhu catheter discontinued. Urinary incontinence. No renal angle tenderness. No suprapubic tenderness. Extremities: No edema, Capillary Refill Less than 3 Seconds Skin: No rashes, No breakdown Musculoskeletal: No Tenderness to Palpation of Joints or Extremities Neurological: Massive stroke in April. Moderate to severe language deficit. Right-sided weakness. DTR 2+. Psych/Mental Status: Flat affect. Assessment & Plan Assessment/Plan (1) Encephalopathy: (2) Aspiration into airway: PLAN: Plan 1. Metabolic encephalopathy secondary to UTI and aspiration pneumonia and stroke in the past: Patient is admitted on PCU. Prelim sputum culture growing ESBL Klebsiella pneumoniae, Staph aureus and haemophilus influenza. Urine culture ESBL Klebsiella pneumoniae. ID consulted and reviewed. The patient antibiotic regimen Unasyn changed to meropenem. ID added vancomycin. Earlier, sepsis was ruled out. Patient has large left hemispheric stroke in April 2022 and was in [facility] for over a month. TSH unremarkable. B12 normal 720. Patient also with retention and has Zhu catheter. 08/14: Patient is still sleepy and lethargic and encephalopathy. Multiple etiologies including metabolic, infectious UTI aspiration pneumonia and previous stroke. Patient has hypernatremia, hyperchloremia, bicarb normal at 23. Free water about 2 L in 24 hours, 350 mL every 4 hours. Sputum culture positive of ESBL, MRSA and haemophilus influenza. Patient on vancomycin and meropenem. 08/15: Not significant change in mental status. Discussed with to change the tube feed and add free water to correct hypernatremia and hyperchloremia. Patient on appropriate antibiotics. Prescription signed for tube feed for home discharge Urine retention, most likely due to BPH: Patient has Zhu catheter. Cardura resumed. On DC Zhu catheter and a spontaneous voiding trial tomorrow AM. 08/15: Patient voided urine after Zhu catheter removal. 2. CAD status post stent/HTN/HLD/chronic diastolic heart failure and post CABG A-fib: Antihypertensive medications were held in the beginning. Blood pressure slowly went up mostly 140s to 160s systolic ? On Lipitor. Eliquis on hold. 08/14: The patient's stated that the patient was coughing blood from mouth but the nursing was started she has to wait on weekend. She is not happy with [facility]. Patient was on Eliquis 5 mg twice daily which is decreased to 2.5 mg twice daily, first dose tonight. Monitor CBC. 3. Left hemispheric CVA/dysphagia ? He had a large stroke about a month ago and he was in the hospital for about a month and had a PEG tube placed ? Can continue with tube feeds 08/15: Patient's want to take him to home. 4. Anemia ? Unknown etiology. Patient was transfused PRBC. Stool for occult blood pending. On IV PPI. 5. 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 He is on Keytruda DVT: SCDs Discharge planning Home with home health. Charges/Coding Visit Charges Inpatient E&M: 57692 Subs Hosp L2
--- NOTE | 2022-08-15 15:37 | CASEMGMT ---
Addendum entered by Jennifer Aaron 08/16/22 11:38: Patient's declined list of Acute Rehab Units as she would like patient to go to [facility] Rehab as her mother went there and she was more than pleased with her care. Jennifer MENDES Original Note: Therapy mentioned to SW that patient's is interested in [facility] 4th floor Rehab Unit. SW made referral to [facility]. [facility] will review referral in am. SW spoke with patient's Maya. Introduced self and role at [facility]. SW let Maya know SW made a referral to Acute Rehab. They will review referral in am and let SW know. Plan: [facility] Acute Rehab vs home with home health. Jennifer MENDES
[2022-08-15 15:50] VITALS: O2SAT 97
[2022-08-15] MEDS: Juven (unflavored) Packet 1 PACKET GT (16:13)
[2022-08-15 17:00] VITALS: BMI 21.4
--- NOTE | 2022-08-15 19:06 | PCM.RX.CS ---
Consult Pharmacy has been consulted to manage selected antiobiotic: Vancomycin Type of Consult: Follow-up Labs: Sodium 153 mmol/L (136-145) H 08/15/22 04:18 Potassium 3.8 mmol/L (3.5-5.1) 08/15/22 04:18 Chloride 122 mmol/L (98-107) H 08/15/22 04:18 Carbon Dioxide 25.0 mmol/L (21.0-32.0) 08/15/22 04:18 Anion Gap 6 (5-15) 08/15/22 04:18 BUN 41 mg/dL (7-18) H 08/15/22 04:18 Creatinine 0.86 mg/dL (0.70-1.30) 08/15/22 04:18 Est GFR (MDRD) Af Amer 115 mL/min (>60) 08/15/22 04:18 Est GFR (MDRD) Non-Af 95 mL/min (>60) 08/15/22 04:18 BUN/Creatinine Ratio 47.5 RATIO (10-20) H 08/15/22 04:18 Glucose 159 mg/dL (74-106) H 08/15/22 04:18 Vancomycin Trough 24.0 ug/mL (5.0-15.0) H 08/15/22 15:26 Microbiology: Microbiology 08/11/22 07:22 Sputum, Induced/Lukens Gram Stain - Final 08/11/22 07:22 Sputum, Induced/Lukens Respiratory Culture - Final ESBL Klebsiella pneumoniae pne Meth. resistant Staph. aureus Haemophilus influenzae 08/11/22 04:00 Urine Catheter - Zhu Urine Culture - Final ESBL Klebsiella pneumoniae pne 08/10/22 23:00 Blood Culture (Wb) - Left Hand Blood Culture - Preliminary No growth in 48 hours. 08/10/22 23:30 Blood Culture (Wb) - Right Hand Blood Culture - Preliminary No growth in 48 hours. 08/11/22 00:20 Nasal Secretion SARS-CoV-2 & FLU Antigen (Rapid) - Final Goal Trough: 15-20 mcg/mL Pharmacy Plan for Drug Dosing: VANCOMYCIN LEVEL RECEIVED Current Vancomycin Dose: 1000MG IV Q12H Number of Doses Received:5 (4 prior to trough draw) Vancomycin Level: 24 Hours Since Last Dose: 11.5hr Renal Function: 0.86 Renal Function Trend: improvement from yesterday Lab/Micro: Scx (+) MRSA, other bacteria Vancomycin Plan/Comments: Patient had a trough drawn which resulted in a value of 24 (goal 15-20). Patient already had this evening's dose infused. In light of this, will hold subsequent doses of vancomycin and obtain a level in 24hrs. Will plan to resume vancomycin once trough is <20. Pending Level:*RANDOM* level 08/16/22 @8474 Pharmacy Service will continue to monitor and adjust dosing as required.
[2022-08-15 21:07] VITALS: BP 177/86; PULSE 87; RESP 18; TEMP 36.4; O2SAT 98
[2022-08-15] MEDS: Baclofen 10 MG Tablet 5 MG PO (21:41)
[2022-08-15] MEDS: Atorvastatin Calcium 40 MG Tablet PO (21:42)
[2022-08-15] MEDS: Doxazosin 4 MG Tablet PO (21:42)
[2022-08-15 23:15] VITALS: BMI 21.4
[2022-08-16] VITALS (9 sets, daily range): BP systolic 156–205; BP diastolic 74–101; PULSE 62–77; RESP 16–18; TEMP 36.1–37.1; O2SAT 97–99; BMI 20.6
[2022-08-16 05:50] LABS: Absolute Lymphocyte Count 0.63 X10^3/uL (0.83-4.51); Absolute Neutrophil Count 4.3 X10^3/uL (2.0-7.7); Basophil# 0.03 X10^3/uL; Basophil% 0.5 % (0-1); Eosinophil# 0.44 X10^3/uL; Hematocrit 27.2 % (40-54); Hemoglobin 8.2 g/dL (13.0-16.5); Lymphocyte # 0.63 X10^3/ul (0.83-4.51); Mean Corp Hgb Conc 30.1 g/dL (32-36); Mean Corpuscular Hgb 28.4 pg (27.0-32.0); Mean Corpuscular Volume 94.1 fL (80-94); Mean Platelet Vol. 10.1 fl (6.2-12.0); Monocyte% 12.7 % (0-10); NRBC Flagged by Analyzer 0 % (0-5); Neutrophil % 68.5 % (47-70); Platelet Count 193 K/mm3 (150-450); RBC Distribution Width CV 14.7 % (11.6-14.6); RBC Distribution Width SD 50.8 fl (35.1-43.9); Red Blood Count 2.89 M/mm3 (4.6-6.2); White Blood Count 6.3 K/mm3 (4.4-11.0)
[2022-08-16] MEDS: Baclofen 10 MG Tablet 5 MG PO ×2 (06:04→14:40)
[2022-08-16] MEDS: Jevity 1.5. 1,000 ML Bottle 250 ML GT ×5 (06:05→21:10)
[2022-08-16 06:24] LABS: Anion Gap 8 (5-15); BUN 37 mg/dL (7-18); BUN/Creat Ratio 48.2 RATIO (10-20); Calcium,Total 8.5 mg/dL (8.5-10.1); Chloride 118 mmol/L (98-107); Creatinine, Serum 0.77 mg/dL (0.70-1.30); EST Glomerular Filtration Rate 109 mL/min (>60); Est Glom Filt Rate - Afr Amer 131 mL/min (>60); Estimated Creatinine Clearance 94.59 ml/min; Glucose 126 mg/dL (74-106); Potassium 3.8 mmol/L (3.5-5.1); Sodium Level 150 mmol/L (136-145)
[2022-08-16] MEDS: Ferrous Sulfate 325 MG Tablet PO ×2 (08:28→17:08)
[2022-08-16] MEDS: Juven (unflavored) Packet 1 PACKET PO (08:29)
[2022-08-16] MEDS: Carvedilol 25 MG Tablet 12.5 MG PO ×2 (08:35→17:08)
[2022-08-16] MEDS: Aspirin 81 MG TAB.CHEW PO (08:35)
--- NOTE | 2022-08-16 10:05 | PCM.PN.ID ---
Physical Exam Narrative Sleeping this AM, no fever Const no apparent distress Resp normal air movement and clear to auscultation bilaterally Cardio regular rate and regular rhythm GI soft to palpation, non-tender and non-distended Skin no rashes or lesions noted ID ID: Route of nutrition/ use of supplements: [] Nutritional Intake: [] IV Site: [] Zhu Catheter: [] Assessment & Plan Assessment/Plan (1) UTI (urinary tract infection): (2) Encephalopathy: PLAN: Ucx with esbl klebs. Sputum cx with MRSA, h. flu, and esbl klebs. Prior MRSA pcr (+). On maureen, 08/13 added vanc empirically. Will change to po levaquin, plan on 3 more days, stop date 08/19/22. Will follow as needed (3) Aspiration into airway:
[2022-08-16] MEDS: APIXABAN 2.5 MG TABLET (WCH) PO ×2 (10:15→21:10)
[2022-08-16] MEDS: Famotidine 20 MG Tablet 40 MG PO (10:16)
[2022-08-16] MEDS: Allopurinol 100 MG Tablet PO (10:17)
[2022-08-16] MEDS: levoFLOXacin 500 MG Tablet PO (10:26)
[2022-08-16 12:10] LABS: Phosphorus 3.3 mg/dL (2.5-4.9)
[2022-08-16] MEDS: fentaNYL 100 MCG/2 ML Ampul 25 MCG IV (15:19)
--- NOTE | 2022-08-16 15:31 | PCM.PN.HOSP ---
Reason for Visit Reason for Visit: Diagnoses Encephalopathy, unspecified (08/11/22) Urinary tract infection, site not specified (08/11/22) Altered mental status, unspecified (08/11/22) Unspecified foreign body in respiratory tract, part unspecified causing other injury, initial encounter (08/11/22) Subjective Subjective Follow-up for complicated UTI and aspiration pneumonia. Objective Data Objective Data Vital Signs: Vital Signs Temp Pulse Resp BP Pulse Ox O2 Del Method O2 Flow Rate 97.9 F 64 18 188/88 H 99 Room Air 2 08/16/22 10:00 08/16/22 10:00 08/16/22 10:00 08/16/22 10:00 08/16/22 10:00 08/16/22 10:00 08/12/22 12:00 Oxygen Flow Rate (L/min) 2 Oxygen Delivery Method Room Air Weight: 152 lb 1.903 oz Body Mass Index (BMI) 20.6 Intake & Output: Intake and Output for Last 24 Hours 08/14/22 08/15/22 08/16/22 23:59 23:59 23:59 Intake Total 5525.5 / 5525.5 2925 / 2925 965 / 965 Output Total 2400 / 2400 1600 / 1600 650 / 650 Balance 3125.5 / 3125.5 1325 / 1325 315 / 315 Medical Nutrition Assessment Dietitian: Malnutrition Criteria Met Start: 08/15/22 14:22 Freq: Status: Active Protocol: Document 08/15/22 14:22 AG (Rec: 08/15/22 14:22 AG [id number]) Nutrition Malnutrition Evidence of Malnutrition Exists No Intake Problem Increased Nutrient Needs (specify) Etiology protein related to skin status Signs/Symptoms as evidenced by PI to buttock/ midback and L 2nd toe and R 5th toe, lateral R foot Status Active Problem Inadequate Oral Intake Etiology related to aspiration pneumonia Signs/Symptoms as evidenced by NPO status Status Active Problem Recommendation Dietitian Recommendations/Changes NPO per [employer]; continue via PEG- Jevity 1.5 250mL bolus 5x/day to provide 1875 calories, 79 g protein. Will increase flushes to 120mL before and after each bolus to provide 2150mL fluid/day given hypernatremia. Sujit BID via PEG for wounds. Will monitor ability to resume PO diet and adjust EN as indicated. Lab / Micro Data Result Diagrams: 08/16/22 05:40 08/16/22 05:40 Labs: Laboratory Results - last 24 hr 08/15/22 15:26: Vancomycin Trough 24.0 H 08/16/22 05:40: WBC 6.3, RBC 2.89 L, Hgb 8.2 L, Hct 27.2 L, MCV 94.1 H, MCH 28.4, MCHC 30.1 L, RDW Std Deviation 50.8 H, RDW Coeff of Dipti 14.7 H, Plt Count 193, MPV 10.1, Immature Gran % (Auto) 1.300 H, Neut % (Auto) 68.5, Lymph % (Auto) 10.0 L, [place] % (Auto) 12.7 H, Eos % (Auto) 7.0 H, Baso % (Auto) 0.5, Absolute Neuts (auto) 4.3, Absolute Lymphs (auto) 0.63 L, Nucleated RBC % 0 08/16/22 05:40: Sodium 150 H, Potassium 3.8, Chloride 118 H, Carbon Dioxide 24.0, Anion Gap 8, BUN 37 H, Creatinine 0.77, Estim Creat Clear Calc 94.59, Est GFR (MDRD) Af Amer 131, Est GFR (MDRD) Non-Af 109, BUN/Creatinine Ratio 48.2 H, Glucose 126 H, Calcium 8.5 08/16/22 05:40: Phosphorus 3.3, Magnesium 2.0 Micro: Microbiology 08/10/22 23:00 Blood Culture (Wb) - Left Hand Blood Culture - Final No growth in 5 days. 08/10/22 23:30 Blood Culture (Wb) - Right Hand Blood Culture - Final No growth in 5 days. 08/11/22 07:22 Sputum, Induced/Lukens Gram Stain - Final 08/11/22 07:22 Sputum, Induced/Lukens Respiratory Culture - Final ESBL Klebsiella pneumoniae pne Meth. resistant Staph. aureus Haemophilus influenzae 08/11/22 04:00 Urine Catheter - Zhu Urine Culture - Final ESBL Klebsiella pneumoniae pne 08/11/22 00:20 Nasal Secretion SARS-CoV-2 & FLU Antigen (Rapid) - Final Physical Exam Narrative Patient was awake in the morning. In afternoon as per his nursing staff, he is grimacing with pain although patient is nonverbal. Patient on fentanyl and muscle relaxant. Seen and examined. Physical exam General: Awake. Intermittent lethargy. Severe language deficit from previous stroke/aphasia. Has eye contact. HEENT: Atraumatic, PERRLA, EOMI, Normocephalic Oral: Oral mucosa moist. No Gingival or Mucosal Lesions/ Ulcerations Neck: Supple, No JVD, Negative Carotid Bruits Lungs: Air entry diminished in bilateral lung bases. No crepitation/rhonchi no oxygen. Cardiovascular: Regular rate, Regular Rhythm, Normal S1, Normal S2, No murmurs Abdomen: PEG tube. On Jevity tube feed.Bowel Sounds Present, Soft, Non Tender, Non-Distended : Zhu catheter was discontinued. Urinary incontinence. No renal angle tenderness. No suprapubic tenderness. Extremities: No edema, Capillary Refill Less than 3 Seconds Skin: No rashes, No breakdown Musculoskeletal: No Tenderness to Palpation of Joints or Extremities Neurological: Massive stroke in April. Moderate to severe language deficit. Right-sided weakness. DTR 2+. Psych/Mental Status: Flat affect. Assessment & Plan Assessment/Plan (1) Encephalopathy: (2) Aspiration into airway: PLAN: Plan 1. Metabolic encephalopathy secondary to UTI and aspiration pneumonia and stroke in the past: Patient is admitted on PCU. Prelim sputum culture growing ESBL Klebsiella pneumoniae, Staph aureus and haemophilus influenza. Urine culture ESBL Klebsiella pneumoniae. ID consulted and reviewed. The patient antibiotic regimen Unasyn changed to meropenem. ID added vancomycin. Earlier, sepsis was ruled out. Patient has large left hemispheric stroke in April 2022 and was in [facility] for over a month. TSH unremarkable. B12 normal 720. Patient also with retention and has Zhu catheter. 08/14: Patient is still sleepy and lethargic and encephalopathy. Multiple etiologies including metabolic, infectious UTI aspiration pneumonia and previous stroke. Patient has hypernatremia, hyperchloremia, bicarb normal at 23. Free water about 2 L in 24 hours, 350 mL every 4 hours. Sputum culture positive of ESBL, MRSA and haemophilus influenza. Patient on vancomycin and meropenem. 08/15: Not significant change in mental status. Discussed with to change the tube feed and add free water to correct hypernatremia and hyperchloremia. Patient on appropriate antibiotics. Prescription signed for tube feed for home discharge 08/16: Patient more grimacing with pain. On fentanyl and baclofen. Baclofen dose increased to 10 mg 3 times daily with holding parameters. PT, OT, speech and swallow assessment and evaluation is that patient might be benefited for acute rehab as it has potential to improve. Patient is on antibiotic regimen as per ID, changed to Levaquin. Urine retention, most likely due to BPH: Patient has Zhu catheter. Cardura resumed. On DC Zhu catheter and a spontaneous voiding trial tomorrow AM. 08/15: Patient voided urine after Zhu catheter removal. 2. CAD status post stent/HTN/HLD/chronic diastolic heart failure and post CABG A-fib: Antihypertensive medications were held in the beginning. Blood pressure slowly went up mostly 140s to 160s systolic ? On Lipitor. Eliquis on hold. 08/14: The patient's stated that the patient was coughing blood from mouth but the nursing was started she has to wait on weekend. She is not happy with [facility]. Patient was on Eliquis 5 mg twice daily which is decreased to 2.5 mg twice daily, first dose tonight. Monitor CBC. 3. Left hemispheric CVA/dysphagia ? He had a large stroke about a month ago and he was in the hospital for about a month and had a PEG tube placed ? Can continue with tube feeds 08/15: Patient's want to take him to home. 4. Anemia ? Unknown etiology. Patient was transfused PRBC. Stool for occult blood pending. On IV PPI. 5. 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 He is on Keytruda DVT: SCDs Charges/Coding Visit Charges Inpatient E&M: 96584 Subs Hosp L2
[2022-08-16 15:55] LABS: Vancomycin, Random Level 19.9 ug/mL (0.0-15.0)
[2022-08-16] MEDS: 0.9% Saline Lock 10 ML Syringe IV (18:49)
[2022-08-16] MEDS: hydrALAZINE 20 MG/ML Vial 5 MG IV (18:51)
[2022-08-16] MEDS: Atorvastatin Calcium 40 MG Tablet PO (21:10)
[2022-08-16] MEDS: Baclofen 10 MG Tablet PO (21:10)
[2022-08-16] MEDS: Doxazosin 4 MG Tablet PO (21:10)
[2022-08-16] MEDS: hydrALAZINE 50 MG Tablet PO (21:45)
[2022-08-16] MEDS: Lisinopril 40 MG Tablet PO (21:46)
[2022-08-16] MEDS: Furosemide 40 MG Tablet PO (21:46)
[2022-08-17] VITALS (9 sets, daily range): BP systolic 122–190; BP diastolic 65–87; PULSE 60–73; RESP 16–18; TEMP 36.3–36.9; O2SAT 97–98; BMI 20.9
[2022-08-17] MEDS: hydrALAZINE 20 MG/ML Vial 10 MG IV (00:09)
[2022-08-17] MEDS: hydrALAZINE 50 MG Tablet PO ×2 (05:19→15:34)
[2022-08-17] MEDS: Jevity 1.5. 1,000 ML Bottle 250 ML GT ×3 (05:19→15:35)
[2022-08-17] MEDS: levoFLOXacin 500 MG Tablet PO (05:20)
[2022-08-17] MEDS: Baclofen 10 MG Tablet PO ×2 (05:21→15:34)
[2022-08-17 07:00] LABS: Absolute Lymphocyte Count 0.73 X10^3/uL (0.83-4.51); Absolute Neutrophil Count 5.6 X10^3/uL (2.0-7.7); Basophil# 0.03 X10^3/uL; Basophil% 0.4 % (0-1); Eosinophils% 6.5 % (0-5); Hemoglobin 8.9 g/dL (13.0-16.5); Lymphocyte # 0.73 X10^3/ul (0.83-4.51); Lymphocyte % 9.6 % (19-41); Mean Corp Hgb Conc 30.7 g/dL (32-36); Mean Corpuscular Hgb 28.9 pg (27.0-32.0); Mean Corpuscular Volume 94.2 fL (80-94); Mean Platelet Vol. 10.9 fl (6.2-12.0); Monocyte# 0.66 X10^3/uL; Monocyte% 8.6 % (0-10); NRBC Flagged by Analyzer 0 % (0-5); Neutrophil # 5.61 X10^3/uL (2.7-7.7); Neutrophil % 73.5 % (47-70); Platelet Count 212 K/mm3 (150-450); RBC Distribution Width CV 14.6 % (11.6-14.6); RBC Distribution Width SD 50.4 fl (35.1-43.9); Red Blood Count 3.08 M/mm3 (4.6-6.2); White Blood Count 7.6 K/mm3 (4.4-11.0)
[2022-08-17 07:26] LABS: Anion Gap 7 (5-15); BUN 32 mg/dL (7-18); BUN/Creat Ratio 37.8 RATIO (10-20); Calcium,Total 8.6 mg/dL (8.5-10.1); Chloride 112 mmol/L (98-107); Creatinine, Serum 0.85 mg/dL (0.70-1.30); EST Glomerular Filtration Rate 97 mL/min (>60); Est Glom Filt Rate - Afr Amer 117 mL/min (>60); Estimated Creatinine Clearance 87.05 ml/min; Glucose 149 mg/dL (74-106); Potassium 3.6 mmol/L (3.5-5.1); Sodium Level 146 mmol/L (136-145)
--- NOTE | 2022-08-17 10:00 | CASEMGMT ---
SW spoke with patient's and let her know [facility]patient [facility] is not willing to take patient. She thanked SW for letting her know. Jennifer MENDES
--- NOTE | 2022-08-17 10:48 | CASEMGMT ---
Discharge Planning Notified [facility] of anticipated discharge date via Elysia. Requested start of service date. Priscila Gee
--- NOTE | 2022-08-17 11:07 | PCM.DC ---
Discharge Instructions Diet Discharge Diet: - (tube feed) Activity Discharge Activity: May Not Drive and - (Home health.) Weight Bearing Status: Weight bearing as tolerated Dressing / Incision Call your doctor if you observe: Fever of 101 or Higher, Coldness, Increased Pain, Numbness or Tingling, Change in Color, Inability to urinate, Inability to have a bowel movement, Shortness of breath, Dizziness, Fainting spells, Swelling in the ankles, Chest pain, Prolonged hiccupping, Increased palpitations (irregular heartbeat) and Calf discomfort Follow Up Care When: IN 2 WEEKS Test Results: Test results from this visit will be discussed in further detail at your follow-up appointment, if applicable. Discharge Plan Admission Admit Date/Time: 08/11/22 03:11 Primary Reason for Your Visit: aspiration ESBL Pneumonia and UTI Attending Provider: Luis Antonio Mak Primary Care Provider: Delgado Smith Consulting Providers: Hang Neville ; Jimmy Jean Baptiste ; Sacha Yuan Discharge Orders/Prescriptions Prescriptions: New levofloxacin 500 mg Tablet 500 mg PO DAILY@0600 2 Days Qty: 2 0RF Eliquis 5 mg Tablet 2.5 mg PO BID Qty: 0 0RF Rx Instructions: 5 mg twice daily changed to 2.5 mg twice daily for increased risk of bleeding and anemia lansoprazole 30 mg capsule,delayed release(DR/EC) 30 mg feeding tube DAILY Qty: 30 2RF Jevity 1.5 Minor 0.06 gram-1.5 kcal/mL Liquid 250 ml G-tube 5X/DAY Qty: 0 0RF Continued nitroglycerin 0.4 mg tablet, sublingual 0.4 mg sublingual Q5M PRN (Reason: Cardiac/Chest Pain) Qty: 25 6RF (DME) lancets Misc See Rx Instructions .ROUTE .MEDSUPPLY Qty: 100 Rx Instructions: As directed (DME) blood ketone glucose monitor Device See Rx Instructions .ROUTE .MEDSUPPLY Qty: 1 Rx Instructions: As directed allopurinol 100 mg tablet 100 mg feeding tube DAILY hydralazine 50 mg tablet 50 mg PO TID 90 Days Qty: 270 3RF aspirin 81 MG tablet 81 mg PO DAILY gabapentin 100 mg capsule 200 mg PO TID sennosides-docusate sodium [Senexon-S] 8.6-50 mg tablet 2 tab PO QHS methadone 5 mg tablet 5 mg PO QHS oxycodone 10 mg tablet 10 mg PO Q4H PRN (Reason: Pain) Keytruda 25 mg/mL solution 25 mg IV .UD tamsulosin 0.4 mg capsule 0.4 mg PO QHS ferrous fumarate [Ferrocite] 324 mg (106 mg iron) tablet 324 mg PO BID acetaminophen [Acetaminophen Extra Strength] 500 mg Tablet 500 mg PO Q6H PRN (Reason: Pain) ergocalciferol (vitamin D2) 1,250 mcg (50,000 unit) capsule 1,250 mcg PO SA Label Comments: TAKE 1 CAPSULE BY MOUTH WEEKLY FOR 90 DAYS carvedilol 25 mg Tablet 25 mg PO BID Rx Instructions: must administer with a meal/food acetaminophen 650 mg Suppository 650 mg SD Q4H PRN PRN (Reason: Fever) amlodipine 10 mg Tablet 10 mg feeding tube DAILY bisacodyl 10 mg Suppository 10 mg SD DAILY PRN (Reason: Constipation) doxazosin 4 mg Tablet 4 mg PO QHS baclofen 5 mg Granules In Packet 5 mg PO TID atorvastatin 40 mg tablet 40 mg PO QHS Qty: 90 3RF Label Comments: have not been taking since 04/10--was told not to for 10 day since getting the covid vaccination furosemide 40 mg tablet 40 mg PO QHS Qty: 90 3RF Changed lisinopril 20 mg tablet 40 mg PO DAILY 30 Days Qty: 0 0RF Discontinued cephalexin 500 mg capsule 500 mg PO TID Label Comments: On half-way famotidine 40 mg tablet 20 mg PO DAILY Label Comments: TAKE 1 TABLET BY MOUTH EVERY DAY AT BEDTIME FOR 90 DAYS apixaban 5 mg Tablet 5 mg PO BID Referrals / Follow Up: Delgado Smith DO [Primary Care Provider] - Hang Carrera MD [Med Staff - Active Staff] - Within 1 Month Sacha Yuan MD [Med Staff - Active Staff] - Within 1 Month Jimmy Yi NP, [facility] [Med Staff - Adv Practice Prof] - Within 1 Month Disposition Disposition (needs filled in before D/C Order can be placed): Home Health Service
[2022-08-17] MEDS: Aspirin 81 MG TAB.CHEW PO (11:28)
[2022-08-17] MEDS: Carvedilol 25 MG Tablet 12.5 MG PO (11:28)
[2022-08-17] MEDS: APIXABAN 2.5 MG TABLET (WCH) PO (11:31)
[2022-08-17] MEDS: Famotidine 20 MG Tablet 40 MG PO (11:32)
[2022-08-17] MEDS: Lisinopril 40 MG Tablet PO (11:32)
[2022-08-17] MEDS: Allopurinol 100 MG Tablet PO (11:33)
--- NOTE | 2022-08-17 11:39 | CASEMGMT ---
Addendum entered by Mirta Montiel 08/17/22 12:11: LLOYD GAO received call back from Berto at [facility] and they are able to see patient tomorrow. LLOYD GAO updated hospitalist and discharge is planned for today. LLOYD GAO called to confirm [facility] start of care. states that patient will need transport home and requested 1630 transport time. LLOYD GAO updated PCU community educator regarding transport. LLOYD GAO updated CM Director to arrange for 3 bottles of tube feed to be sent home with patient. LLOYD GAO will send discharge summary and instructions to [facility] when available. CM will continue to follow this patient and plan for a safe discharge. Original Note: LLOYD GAO updated by Dr. Cook that patient was not accepted at IRU. LLOYD GAO called [facility] and updated regarding potential discharge pending start of care date. Berto to call back with update. LLOYD GAO called [facility] regarding tube feed setup. Per Taylor, she can ship today with delivery tomorrow and she will call to confirm address. LLOYD GAO will continue to follow this patient and plan for a safe discharge.
--- NOTE | 2022-08-17 12:16 | PCM.DC.SUM ---
Providers Date of Admission: 08/11/22 Date of Discharge: 08/17/22 Primary Care Physician: Dr. Delgado Smith, Consultations 08/11/22 10:59 Consult: Onc/Wound/clinical geneticist Routine Comment: Reason for Consult:: wound to back, feet 08/13/22 10:31 Consult: Infectious Disease Routine Consulting Provider: Sacha Yuan Reason for Consult: ESBL in sputum, aspiration pneumonia EMERGENT Consult: No MD Notified: Yes Date Notified: 08/13/22 Time Notified: 10:31 Method of Notification: Text Reason For Visit: ASPIRATION PNEUMONIA Diagnosis Discharge Diagnosis (1) Encephalopathy: Status: Acute Code(s): G93.40 - Encephalopathy, unspecified (2) Aspiration into airway: Status: Acute Code(s): T17.908A - Unspecified foreign body in respiratory tract, part unspecified causing other injury, initial encounter Plan 1. Metabolic encephalopathy secondary to UTI and aspiration pneumonia and stroke in the past: Patient is admitted on PCU. Prelim sputum culture growing ESBL Klebsiella pneumoniae, Staph aureus and haemophilus influenza. Urine culture ESBL Klebsiella pneumoniae. ID consulted and reviewed. The patient antibiotic regimen Unasyn changed to meropenem. ID added vancomycin. Earlier, sepsis was ruled out. Patient has large left hemispheric stroke in April 2022 and was in [facility] for over a month. TSH unremarkable. B12 normal 720. Patient also with retention and has Zhu catheter. 08/14: Patient is still sleepy and lethargic and encephalopathy. Multiple etiologies including metabolic, infectious UTI aspiration pneumonia and previous stroke. Patient has hypernatremia, hyperchloremia, bicarb normal at 23. Free water about 2 L in 24 hours, 350 mL every 4 hours. Sputum culture positive of ESBL, MRSA and haemophilus influenza. Patient on vancomycin and meropenem. 08/15: Not significant change in mental status. Discussed with to change the tube feed and add free water to correct hypernatremia and hyperchloremia. Patient on appropriate antibiotics. Prescription signed for tube feed for home discharge 08/16: Patient more grimacing with pain. On fentanyl and baclofen. Baclofen dose increased to 10 mg 3 times daily with holding parameters. PT, OT, speech and swallow assessment and evaluation is that patient might be benefited for acute rehab as it has potential to improve. Patient is on antibiotic regimen as per ID, changed to Levaquin. 08/17: Patient on baseline. Acute encephalopathy has resolved. Patient had large left MCA stroke with unresponsiveness. 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 Urine retention, most likely due to BPH: Patient has Zhu catheter. Cardura resumed. On DC Zhu catheter and a spontaneous voiding trial tomorrow AM. 08/15: Patient voided urine after Zhu catheter removal. 08/17: Acute retention resolved. 2. CAD status post stent/HTN/HLD/chronic diastolic heart failure and post CABG/postoperative A-fib: Antihypertensive medications were held in the beginning. Blood pressure slowly went up mostly 140s to 160s systolic ? On Lipitor. Eliquis on hold. 08/14: The patient's stated that the patient was coughing blood from mouth but the nursing was started she has to wait on weekend. She is not happy with [facility]. Patient was on Eliquis 5 mg twice daily which is decreased to 2.5 mg twice daily, first dose tonight. Monitor CBC. 08/17 on baseline. Eliquis resumed on lower dose. Follow-up in cardiology clinic with Jimmy YI and Dr. Paul. 3. Left hemispheric CVA/moderate to severe oropharyngeal dysphagia ? He had a large stroke about a month ago and he was in the hospital for about a month and had a PEG tube placed ? Can continue with tube feeds 08/15: Patient's want to take him to home. 08/16: Modified barium swallow shows moderate to severe oropharyngeal dysphagia and patient is on tube feed. Pur?ed texture nectar thick liquid recommended by speech therapist. Patient on tube feed 4. Anemia ? Unknown etiology. Patient was transfused PRBC. Stool for occult blood pending. On IV PPI. 5. 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 He is on Keytruda DVT: SCDs Discharge medication reconciliation done. Discharge follow-up instructions completed. Discharge process discussed with the patient and all questions were answered to patient's satisfaction. Total time spent, exact 35 minutes on discharge meds reconciliation, examination, coordination of care with nurses and ancillary staff, review of imaging and blood test and discussion with the patient on follow-up instructions. 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 05/10/21 blood ketone glucose monitor #1 ea 06/06/21 lancets #100 ea 06/06/21 allopurinol 100 mg tablet 100 mg feeding tube DAILY gout 09/06/21 gabapentin 100 mg capsule 200 mg PO TID NEUROPATHY 09/13/21 oxycodone 10 mg tablet 10 mg PO Q4H PRN Pain 09/13/21 pembrolizumab 25 mg/mL intravenous solution (Keytruda) 25 mg IV .UD CANCER 09/13/21 ferrous fumarate 324 mg (106 mg iron) tablet (Ferrocite) 324 mg PO BID supplement 04/16/22 tamsulosin 0.4 mg capsule 0.4 mg PO QHS prostate 04/16/22 hydralazine 50 mg tablet 50 mg PO TID 90 days #270 tabs 04/23/22 furosemide 40 mg tablet 40 mg PO QHS water #90 tabs 06/12/22 acetaminophen 500 mg tablet (Acetaminophen Extra Strength) 500 mg PO Q6H PRN Pain 06/14/22 ergocalciferol (vitamin D2) 1,250 mcg (50,000 unit) capsule 1,250 mcg PO SA SUPPLEMENT 06/14/22 acetaminophen 650 mg rectal suppository 650 mg WV Q4H PRN PRN Fever 08/10/22 amlodipine 10 mg tablet 10 mg feeding tube DAILY bp 08/10/22 baclofen 5 mg oral granules in packet 5 mg PO TID muscle spasm 08/10/22 bisacodyl 10 mg rectal suppository 10 mg WV DAILY PRN Constipation 08/10/22 carvedilol 25 mg tablet 25 mg PO BID BP 08/10/22 doxazosin 4 mg tablet 4 mg PO QHS BPH 08/10/22 apixaban 5 mg tablet (Eliquis) 2.5 mg PO BID #0 tabs 08/17/22 lactose-reduced food with fiber 0.06 gram-1.5 kcal/mL oral liquid (Jevity 1.5 Minor) 250 ml G-tube 5X/DAY #0 mL 08/17/22 lansoprazole 30 mg capsule,delayed release 30 mg feeding tube DAILY #30 caps 08/17/22 levofloxacin 500 mg tablet 500 mg PO DAILY@0600 2 days #2 tabs 08/17/22 lisinopril 20 mg tablet 40 mg PO DAILY bp 30 days #0 tabs 08/17/22 Physical Exam Narrative Patient was awake in the morning. Patient and demanding pain medication. Patient on methadone and oxycodone and baclofen as per home medications. Seen and examined. Physical exam General: Awake. Intermittent variable degree of alertness sometimes lethargy. Baseline. Severe language deficit from previous stroke/aphasia. Has eye contact. HEENT: Atraumatic, PERRLA, EOMI, Normocephalic Oral: Oral mucosa moist. No Gingival or Mucosal Lesions/ Ulcerations Neck: Supple, No JVD, Negative Carotid Bruits Lungs: Air entry diminished in bilateral lung bases. No crepitation/rhonchi no oxygen. Cardiovascular: Regular rate, Regular Rhythm, Normal S1, Normal S2, No murmurs Abdomen: PEG tube. On Jevity tube feed.Bowel Sounds Present, Soft, Non Tender, Non-Distended : Zhu catheter was discontinued. Urinary incontinence. No renal angle tenderness. No suprapubic tenderness. Extremities: No edema, Capillary Refill Less than 3 Seconds Skin: No rashes, No breakdown Musculoskeletal: No Tenderness to Palpation of Joints or Extremities Neurological: Massive stroke in April. Moderate to severe language deficit. Right-sided weakness. DTR 2+. Psych/Mental Status: Flat affect. Medical Records Data Medical Nutrition Assessment Dietitian: Malnutrition Criteria Met Start: 08/15/22 14:22 Freq: Status: Active Protocol: Document 08/16/22 09:15 AG (Rec: 08/16/22 16:15 [id number]) Nutrition Malnutrition Evidence of Malnutrition Exists No Intake Problem Increased Nutrient Needs (specify) Etiology protein related to skin status Signs/Symptoms as evidenced by PI to buttock/ midback and L 2nd toe and R 5th toe, lateral R foot Status Active Problem Inadequate Oral Intake Etiology related to aspiration pneumonia Signs/Symptoms as evidenced by NPO status Status Active Problem Recommendation Dietitian Recommendations/Changes 1) Via PEG- Jevity 1.5 250mL bolus 5x/day w/ 120mL H2O flush before and after each bolus to provide 1875 calories , 79 g protein, and 2150mL fluid/day. Will also add 150mL H2O flush via PEG TID to bring total fluid/day to 2600mL from tube feeds/flushes . 2) Regular diet as tolerated- texture/consistency per SENIOR ASIC ENGINEER. Will monitor PO intake at meals and adjust EN as indicated. 3) Sujit BID via PEG for wounds. Weight / BMI Weight Weight: 154 lb 8.705 oz Body Mass Index (BMI) 20.9 ABG / Lab / Microbiology Data Result Diagrams: 08/17/22 05:47 08/17/22 05:47 Laboratory: Laboratory Results - last 24 hr 08/16/22 15:20: Random Vancomycin 19.9 H 08/17/22 05:47: WBC 7.6, RBC 3.08 L, Hgb 8.9 L, Hct 29.0 L, MCV 94.2 H, MCH 28.9, MCHC 30.7 L, RDW Std Deviation 50.4 H, RDW Coeff of Dipti 14.6, Plt Count 212, MPV 10.9, Immature Gran % (Auto) 1.400 H, Neut % (Auto) 73.5 H, Lymph % (Auto) 9.6 L, Barber % (Auto) 8.6, Eos % (Auto) 6.5 H, Baso % (Auto) 0.4, Absolute Neuts (auto) 5.6, Absolute Lymphs (auto) 0.73 L, Nucleated RBC % 0 08/17/22 05:47: Sodium 146 H, Potassium 3.6, Chloride 112 H, Carbon Dioxide 27.0, Anion Gap 7, BUN 32 H, Creatinine 0.85, Estim Creat Clear Calc 87.05, Est GFR (MDRD) Af Amer 117, Est GFR (MDRD) Non-Af 97, BUN/Creatinine Ratio 37.8 H, Glucose 149 H, Calcium 8.6 Microbiology: Microbiology 08/10/22 23:00 Blood Culture (Wb) - Left Hand Blood Culture - Final No growth in 5 days. 08/10/22 23:30 Blood Culture (Wb) - Right Hand Blood Culture - Final No growth in 5 days. 08/11/22 07:22 Sputum, Induced/Lukens Gram Stain - Final 08/11/22 07:22 Sputum, Induced/Lukens Respiratory Culture - Final ESBL Klebsiella pneumoniae pne Meth. resistant Staph. aureus Haemophilus influenzae 08/11/22 04:00 Urine Catheter - Zhu Urine Culture - Final ESBL Klebsiella pneumoniae pne 08/11/22 00:20 Nasal Secretion SARS-CoV-2 & FLU Antigen (Rapid) - Final D/C Instructions Discharge Diet: - (tube feed) Weight Bearing Status: Weight bearing as tolerated Call your doctor if you observe: Fever of 101 or Higher, Coldness, Increased Pain, Numbness or Tingling, Change in Color, Inability to urinate, Inability to have a bowel movement, Shortness of breath, Dizziness, Fainting spells, Swelling in the ankles, Chest pain, Prolonged hiccupping, Increased palpitations (irregular heartbeat) and Calf discomfort When: IN 2 WEEKS Meaningful Use Info Meaningful Use Diagnoses (Choose all that apply): None applicable Discharge Plan Admission Admit Date/Time: 08/11/22 03:11 Primary Reason for Your Visit: aspiration ESBL Pneumonia and UTI Attending Provider: Luis Antonio Mak Primary Care Provider: Delgado Smith Consulting Providers: Hang Neville ; Jimmy Jean Baptiste ; Sacha Yuan Discharge Orders/Prescriptions Prescriptions: New levofloxacin 500 mg Tablet 500 mg PO DAILY@0600 2 Days Qty: 2 0RF Eliquis 5 mg Tablet 2.5 mg PO BID Qty: 0 0RF Rx Instructions: 5 mg twice daily changed to 2.5 mg twice daily for increased risk of bleeding and anemia lansoprazole 30 mg capsule,delayed release(DR/EC) 30 mg feeding tube DAILY Qty: 30 2RF Jevity 1.5 Minor 0.06 gram-1.5 kcal/mL Liquid 250 ml G-tube 5X/DAY Qty: 0 0RF Continued nitroglycerin 0.4 mg tablet, sublingual 0.4 mg sublingual Q5M PRN (Reason: Cardiac/Chest Pain) Qty: 25 6RF (DME) lancets Misc See Rx Instructions .ROUTE .MEDSUPPLY Qty: 100 Rx Instructions: As directed (DME) blood ketone glucose monitor Device See Rx Instructions .ROUTE .MEDSUPPLY Qty: 1 Rx Instructions: As directed allopurinol 100 mg tablet 100 mg feeding tube DAILY hydralazine 50 mg tablet 50 mg PO TID 90 Days Qty: 270 3RF aspirin 81 MG tablet 81 mg PO DAILY gabapentin 100 mg capsule 200 mg PO TID sennosides-docusate sodium [Senexon-S] 8.6-50 mg tablet 2 tab PO QHS methadone 5 mg tablet 5 mg PO QHS oxycodone 10 mg tablet 10 mg PO Q4H PRN (Reason: Pain) Keytruda 25 mg/mL solution 25 mg IV .UD tamsulosin 0.4 mg capsule 0.4 mg PO QHS ferrous fumarate [Ferrocite] 324 mg (106 mg iron) tablet 324 mg PO BID acetaminophen [Acetaminophen Extra Strength] 500 mg Tablet 500 mg PO Q6H PRN (Reason: Pain) ergocalciferol (vitamin D2) 1,250 mcg (50,000 unit) capsule 1,250 mcg PO SA Label Comments: TAKE 1 CAPSULE BY MOUTH WEEKLY FOR 90 DAYS carvedilol 25 mg Tablet 25 mg PO BID Rx Instructions: must administer with a meal/food acetaminophen 650 mg Suppository 650 mg WV Q4H PRN PRN (Reason: Fever) amlodipine 10 mg Tablet 10 mg feeding tube DAILY bisacodyl 10 mg Suppository 10 mg WV DAILY PRN (Reason: Constipation) doxazosin 4 mg Tablet 4 mg PO QHS baclofen 5 mg Granules In Packet 5 mg PO TID atorvastatin 40 mg tablet 40 mg PO QHS Qty: 90 3RF Label Comments: have not been taking since 04/10--was told not to for 10 day since getting the covid vaccination furosemide 40 mg tablet 40 mg PO QHS Qty: 90 3RF Changed lisinopril 20 mg tablet 40 mg PO DAILY 30 Days Qty: 0 0RF Discontinued cephalexin 500 mg capsule 500 mg PO TID Label Comments: On physicist cryogenics famotidine 40 mg tablet 20 mg PO DAILY Label Comments: TAKE 1 TABLET BY MOUTH EVERY DAY AT BEDTIME FOR 90 DAYS apixaban 5 mg Tablet 5 mg PO BID Referrals / Follow Up: Delgado Smith DO [Primary Care Provider] - 08/30/22 12:00 pm (This is a virtual visit, office will call you.) Hang Carrera MD [Med Staff - Active Staff] - 09/12/22 2:00 pm Sacha Yuan MD [Med Staff - Active Staff] - Within 1 Month Jimmy Yi NP, HEAD TELLER-C [Med Staff - Adv Practice Prof] - Within 1 Month Disposition Disposition (needs filled in before D/C Order can be placed): Home Health Service Charges/Coding Visit Charges Inpatient E&M: 64396 Disch Hosp >30min
--- NOTE | 2022-08-17 14:14 | NS ---
Plans for discharge home with home health today. Enteral nutrition supplies to be sent from [place]. For home enteral nutrition: Isosource 1.5 via PEG-- 250mL (1 carton) five times per day. 120mL water flush before and after each bolus. Provides 1875 calories per day. Recommended feeding schedule-- 0600, 1000, 1400, 1800, 2200. Times can be adjusted based on patient and family preference. Sacha has had high sodium levels during his hospital stay, so we've recommended additional 150mL water flushes three times per day at 0800, 1200, and 2000. Speech therapy has deemed him appropriate for pureed food with nectar (mildly) thick liquids. He has not been eating much by mouth. However, if his oral intake increases, his tube feeds will need adjusted. Your Enteral Nutrition guide reviewed with Maya via phone. Nursing has been providing teaching re: PEG tube use this admission. Encouraged to contact [facility] Nutrition Services with questions. Contact info provided. aBrb Rodriguez MS, RDN, LD
--- NOTE | 2022-08-17 14:23 | CASEMGMT ---
Discharge instructions, summary, tube feed order, and electronics assembler and tester note sent to [facility] at this time.
== END 2022-08-17 17:17 | disposition home health service (06) | DRG 177 ==
LOC: ED 08-11 00:02 → PCU 08-11 04:24 → ICU 08-11 11:41 → PCU 08-13 07:16 → ICU 08-13 11:37 → PCU 08-13 11:54 → ICU 08-13 12:38 → PCU 08-13 12:39
PROVIDERS: Family Medicine; Internal Medicine Infectious Disease; Admitting Provider Hospitalist; Emergency Provider Emergency Medicine; PCP Family Medicine; Visit Provider Internal Medicine
DX: J69.0 Pneumonitis due to inhalation of food and vomit (principal); G93.41 Metabolic encephalopathy; E87.0 Hyperosmolality and hypernatremia; N17.9 Acute kidney failure, unspecified; I50.32 Chronic diastolic (congestive) heart failure; I69.351 Hemiplegia and hemiparesis following cerebral infarction affecting right dominant side; N39.0 Urinary tract infection, site not specified; Z16.12 Extended spectrum beta lactamase (ESBL) resistance; E11.610 Type 2 diabetes mellitus with diabetic neuropathic arthropathy; E11.319 Type 2 diabetes mellitus with unspecified diabetic retinopathy without macular edema; I27.21 Secondary pulmonary arterial hypertension; C07 Malignant neoplasm of parotid gland; B95.62 Methicillin resistant Staphylococcus aureus infection as the cause of diseases classified elsewhere; B96.1 Klebsiella pneumoniae [K. pneumoniae] as the cause of diseases classified elsewhere; I95.9 Hypotension, unspecified; L89.302 Pressure ulcer of unspecified buttock, stage 2; E11.40 Type 2 diabetes mellitus with diabetic neuropathy, unspecified; E11.51 Type 2 diabetes mellitus with diabetic peripheral angiopathy without gangrene; I11.0 Hypertensive heart disease with heart failure; Z93.1 Gastrostomy status; I25.10 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of native coronary artery without angina pectoris; E78.5 Hyperlipidemia, unspecified; E87.8 Other disorders of electrolyte and fluid balance, not elsewhere classified; I69.320 Aphasia following cerebral infarction; D64.9 Anemia, unspecified; N40.1 Benign prostatic hyperplasia with lower urinary tract symptoms; R33.8 Other retention of urine; G89.29 Other chronic pain; R53.81 Other malaise; Z79.01 Long term (current) use of anticoagulants; Z79.82 Long term (current) use of aspirin; Z79.899 Other long term (current) drug therapy
CPT/HCPCS: 31720; 36415; 36600; 51702; 70450; 71045; 74230; 80048; 80076; 80202; 81001; 82140; 82607; 82803; 82962; 83605; 83735; 84100; 84145; 84443; 85025; 85610; 85730; 86850; 86900; 86901; 86920; 86922; 87040; 87070; 87077; 87086; 87088; 87186; 87205; 87428; 92523; 92526; 92610; 92611; 93005; 97110; 97163; 97166; 97530; 97535; 97803; 99285; J2185; J7030; J7040; J7050; P9016; A4216; J0295

== ENCOUNTER 2022-08-21 09:35 | Emergency (ER) | payer MEDICARE, MEDICAID, SELFPAY ==
[2022-08-21] VITALS (14 sets, daily range): BP systolic 100–129; BP diastolic 51–62; PULSE 54–63; RESP 16–18; TEMP 36.6–37.6; O2SAT 95–98; BMI 23.7
--- NOTE | 2022-08-21 09:39 | EX.ED.DYSGE1 ---
HPI History of Present Illness Chief Complaint: Complaint [facility] Medical History Abdominal pain Acute bronchitis RAFA (acute kidney injury) Alcohol abuse Anemia Atherosclerosis of coronary artery without angina pectoris 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burns paiute coronary artery w/angina pectoris Bacteremia Bone cancer Bradycardia Cataracts, both eyes Charcot's joint, left ankle and foot Chronic diastolic (congestive) heart failure Chronic pain Diabetes mellitus, type II Diabetic retinopathy Diastolic dysfunction with acute on chronic heart failure Essential hypertension GERD (gastroesophageal reflux disease) Hammer toe of left foot HLD (hyperlipidemia) Hyponatremia Infection of left foot Iron deficiency anemia 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 MSSA bacteremia Nephrotic syndrome Neuropathy Non-smoker Normocytic anemia Obesity (BMI 30.0-34.9) Osteomyelitis PAD (peripheral artery disease) Postoperative atrial fibrillation (06/12/18) 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) Secondary pulmonary arterial hypertension Sinus bradycardia Syncope Type 2 diabetes mellitus Ulcer of left foot Home Medications aspirin 81 mg tablet,delayed release 81 mg PO DAILY heart health 09/09/18 [History Last Taken 06/13/22] nitroglycerin 0.4 mg sublingual tablet 0.4 mg sublingual Q5M PRN Cardiac/Chest Pain #25 tabs 10/17/18 [Rx Last Taken 08/08/19] atorvastatin 40 mg tablet 40 mg PO QHS cholesterol #90 tabs 01/18/21 [Rx Last Taken 06/13/22] sennosides 8.6 mg-docusate sodium 50 mg tablet (Senexon-S) 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 05/10/21 [History Last Taken 06/13/22] blood ketone glucose monitor #1 ea 06/06/21 [History Last Taken Unknown] lancets #100 ea 06/06/21 [History Last Taken Unknown] allopurinol 100 mg tablet 100 mg feeding tube DAILY gout 09/06/21 [History Last Taken 06/13/22] gabapentin 100 mg capsule 200 mg PO TID NEUROPATHY 09/13/21 [History Last Taken 06/13/22] oxycodone 10 mg tablet 10 mg PO Q4H PRN Pain 09/13/21 [History Last Taken 06/14/22 06:00] pembrolizumab 25 mg/mL intravenous solution (Keytruda) 25 mg IV .UD CANCER 09/13/21 [History Last Taken 06/06/22] ferrous fumarate 324 mg (106 mg iron) tablet (Ferrocite) 324 mg PO BID supplement 04/16/22 [History Last Taken 06/13/22] hydralazine 50 mg tablet 50 mg PO TID 90 days #270 tabs 04/23/22 [Rx Last Taken 06/13/22] acetaminophen 500 mg tablet (Acetaminophen Extra Strength) 500 mg PO Q6H PRN Pain 06/14/22 [History Last Taken 06/13/22] ergocalciferol (vitamin D2) 1,250 mcg (50,000 unit) capsule 1,250 mcg PO SA SUPPLEMENT 06/14/22 [History Last Taken 06/09/22] acetaminophen 650 mg rectal suppository 650 mg PA Q4H PRN PRN Fever 08/10/22 [History Last Taken Unknown] baclofen 5 mg oral granules in packet 5 mg PO TID muscle spasm 08/10/22 [History Last Taken Unknown] bisacodyl 10 mg rectal suppository 10 mg PA DAILY PRN Constipation 08/10/22 [History Last Taken Unknown] carvedilol 25 mg tablet 25 mg PO BID BP 30 days #60 tabs 08/17/22 [Rx Last Taken Unknown] doxazosin 4 mg tablet 4 mg PO QHS BPH 30 days #30 tabs 08/17/22 [Rx Last Taken Unknown] furosemide 40 mg tablet 40 mg PO QHS water 30 days #30 tabs 08/17/22 [Rx Last Taken 06/13/22] lactose-reduced food with fiber 0.06 gram-1.5 kcal/mL oral liquid (Jevity 1.5 Minor) 250 ml G-tube 5X/DAY #0 mL 08/17/22 [Rx Last Taken Unknown] lansoprazole 30 mg capsule,delayed release 30 mg feeding tube DAILY #30 caps 08/17/22 [Rx Last Taken Unknown] levofloxacin 500 mg tablet 500 mg PO DAILY@0600 2 days #2 tabs 08/17/22 [Rx Last Taken Unknown] lisinopril 20 mg tablet 40 mg PO DAILY bp 30 days #0 tabs 08/17/22 [Rx Last Taken 06/13/22] methadone 5 mg tablet 5 mg PO QHS PAIN, metastatic CA 5 days #5 tabs 08/17/22 [Rx Last Taken 06/13/22] tamsulosin 0.4 mg capsule 0.4 mg PO QHS prostate 30 days #30 caps 08/17/22 [Rx Last Taken 06/13/22] amlodipine 10 mg tablet 10 mg feeding tube DAILY bp 30 days #30 tabs 08/19/22 [Rx Last Taken Unknown] apixaban 2.5 mg tablet (Eliquis) 2.5 mg PO BID 30 days #60 tabs 08/19/22 [Rx Last Taken Unknown] acetaminophen 120 mg-codeine 12 mg/5 mL (5 mL) oral solution 5 ml PO Q6H PRN cough #500 mL 08/21/22 [Rx Last Taken Unknown] levofloxacin 500 mg tablet 500 mg PO BID #90 tabs 08/21/22 [Rx Last Taken Unknown] Allergy/AdvReac Type Severity Reaction Status Date / Time banana Allergy Intermediate Swelling Verified 08/16/22 17:48 Penicillins [PCN] Allergy Unknown Verified 06/29/22 15:08 morphine AdvReac Mild confusion Verified 06/29/22 15:08 Family History Mother Diabetes Parkinson disease Grandmother Cancer Surgical History Amputated toe of left foot (08/2018) H/O coronary artery bypass surgery (06/12/18) H/O eye surgery History of left heart catheterization (05/20/18) Hx of cholecystectomy S/P meniscectomy Social History household members: spouse Smoking Status: Never smoker alcohol intake: current alcohol intake frequency: a few times a week substance use type: does not use caffeine: No EXAM Physical Exam Const Vital Signs: 08/21/22 09:36 08/21/22 09:40 08/21/22 10:40 Temperature 99.7 F H 99.7 F H 99.6 F H Temperature Source Oral Temporal Temporal Pulse Rate 62 60 59 L Respiratory Rate 16 18 16 Blood Pressure 112/58 L 100/52 L 104/58 L Blood Pressure Mean 76 68 73 Pulse Ox 98 98 97 Oxygen Delivery Method Room Air Room Air Room Air 08/21/22 11:12 08/21/22 11:45 08/21/22 12:20 Temperature 98.6 F 97.9 F Temperature Source Oral Oral Pulse Rate 59 L 58 L 58 L Respiratory Rate 17 18 18 Blood Pressure 105/54 L 102/52 L 104/51 L Blood Pressure Mean 71 68 68 Pulse Ox 98 98 98 Oxygen Delivery Method Room Air Room Air Room Air 08/21/22 13:01 08/21/22 13:02 08/21/22 14:05 Temperature Temperature Source Pulse Rate 54 L 55 L Respiratory Rate 18 16 18 Blood Pressure 108/52 L 108/52 L 111/53 L Blood Pressure Mean 70 72 Pulse Ox 97 97 Oxygen Delivery Method Room Air Room Air 08/21/22 15:05 Temperature Temperature Source Pulse Rate 60 Respiratory Rate 18 Blood Pressure 118/53 L Blood Pressure Mean 74 Pulse Ox 97 Oxygen Delivery Method Room Air MDM MDM MDM Narrative Medical decision making narrative: HISTORY OF PRESENT ILLNESS: 62-year-old male here for concern for not urinating. Patient does not provide a history secondary to baseline mental status changes. Per the patient's he has not urinated for the last several hours. She did note a transient fever at home with a temperature of 99. REVIEW OF SYMPTOMS: Unable to obtain secondary to the patient underlying mental status PHYSICAL EXAM: Nursing triage notes reviewed, Vital signs reviewed Constitutional: please see mdm HENT: MMM Eyes: Pupils equal round and reactive to light, Extraocular muscles intact Neck: No stridor, no JVD, full neck ROM Lungs: Clear to auscultation, No wheezing or rales. No increased work of breathing, no conversational dyspnea, no accessory muscle use, no nasal flaring. No respiratory distress noted Heart: Regular rate and rhythm, No murmurs, No rubs and No gallops, 2+ distal pulses (radial, femoral, posterior tibial) in all extremities Abdomen: Soft, there is no tenderness, rigidity, rebound or guarding, no obvious peritoneal signs, no palpable pulsatile abdominal masses, no auscultated abdominal bruit : No CVAT, Zhu in place Extremities: No edema Neuro: Alert but oriented to 0 (baseline per the patient's ). cranial nerves II through XII intact, 5/5 strength in all extremities. Intact sensation to light touch in all extremities, 2+ reflexes bilateral patella tendons. Skin: No rash or lesions noted MEDICAL DECISION MAKING: Chief Complaint: urinary retetion Zhu cath removed on 08/15/2022 External records reviewed: Admitted for encephalopathy in August 2022, this was thought to be secondary to UTI and aspiration pneumonia. Patient was admitted to the PCU. Sputum culture grew ESBL, Klebsiella, staph and haemophilus influenza, urine grew Klebsiella patient was started on meropenem and vancomycin. Eventually this was changed to Levaquin. Per last ED note on 08/11/2022 patient was obtunded at that time. Baseline mental status is alert but not oriented person place or time. MDM Narrative: The patient was hemodynamically stable, afebrile, nontoxic-appearing. Exam without obvious focus of neurologic deficit, infection or focal cardiopulmonary abnormalities I considered the following differential diagnosis: Urinary retention, electrolyte abnormality, kidney dysfunction. I obtained basic labs to rule out kidney dysfunction, Zhu was placed to relieve urinary retention. Voided approximately 1 L of urine right after Zhu was placed. No signs of kidney dysfunction. Of note patient had baseline significant anemia however did not qualify for transfusion at this time. I did discuss the case with the patient's . I informed her of his reassuring physical exam, his draining Zhu and importance of following up with urology. I did prescribe the patient codeine for chronic cough the endorsed. I also prescribed the patient levofloxacin the that he is out of yet he supposed to be on per ID recommendations. Factors affecting care: CVA, hyperlipidemia, type 2 diabetes, malignant cancer Social determinants of health: Poor health literacy History obtained from others: EMS, patient's Shared decision making: I will have a discussion with the patient and or visitors regarding risk/benefits of further testing or admission. They will be made aware of of the risk/benefits inherent in this decision they will be given the opportunity to voice understanding. Consults: none Lab Data Attestation: I reviewed the patient's lab results. Lab results narrative: CBC with no leukocytosis to suggest systemic inflammation, severe anemia however this is very close to the patient's baseline, no thrombocytopenia BMP with mild hyponatremia, no significant anion gap, no RAFA, no significant electrolyte abnormalities Labs: Laboratory Results - last 24 hr 08/21/22 08/21/22 10:40 10:40 WBC 10.5 RBC 2.44 L Hgb 7.0 L Hct 23.0 L MCV 94.3 H MCH 28.7 MCHC 30.4 L RDW Std Deviation 52.0 H RDW Coeff of Dipti 15.1 H Plt Count 173 MPV 11.4 Sodium 135 L Potassium 4.5 Chloride 103 Carbon Dioxide 26.0 Anion Gap 6 BUN 51 H Creatinine 1.19 Estim Creat Clear Calc 68.83 Est GFR (MDRD) Af Amer 79 Est GFR (MDRD) Non-Af 65 BUN/Creatinine Ratio 42.9 H Glucose 167 H Calcium 8.1 L Discharge Plan Triage Chief Complaint: Complaint ED Provider: Eduardo Vasquez Dx/Rx/DC Orders Clinical Impression: Urinary retention, Anemia Instructions: ED Zhu Catheter, Care Prescriptions: New levofloxacin 500 mg tablet 500 mg PO BID Qty: 90 0RF acetaminophen-codeine 120 mg-12 mg /5 mL (5 mL) solution 5 ml PO Q6H PRN (Reason: cough) Qty: 500 0RF Rx Instructions: Please discontinue taking oxycodone. Please replace oxycodone with this medicine No Action nitroglycerin 0.4 mg tablet, sublingual 0.4 mg sublingual Q5M PRN (Reason: Cardiac/Chest Pain) Qty: 25 6RF (DME) lancets Misc See Rx Instructions .ROUTE .MEDSUPPLY Qty: 100 Rx Instructions: As directed (DME) blood ketone glucose monitor Device See Rx Instructions .ROUTE .MEDSUPPLY Qty: 1 Rx Instructions: As directed allopurinol 100 mg tablet 100 mg feeding tube DAILY hydralazine 50 mg tablet 50 mg PO TID 90 Days Qty: 270 3RF aspirin 81 MG tablet 81 mg PO DAILY gabapentin 100 mg capsule 200 mg PO TID sennosides-docusate sodium [Senexon-S] 8.6-50 mg tablet 2 tab PO QHS oxycodone 10 mg tablet 10 mg PO Q4H PRN (Reason: Pain) Keytruda 25 mg/mL solution 25 mg IV .UD ferrous fumarate [Ferrocite] 324 mg (106 mg iron) tablet 324 mg PO BID acetaminophen [Acetaminophen Extra Strength] 500 mg Tablet 500 mg PO Q6H PRN (Reason: Pain) ergocalciferol (vitamin D2) 1,250 mcg (50,000 unit) capsule 1,250 mcg PO SA Label Comments: TAKE 1 CAPSULE BY MOUTH WEEKLY FOR 90 DAYS acetaminophen 650 mg Suppository 650 mg PA Q4H PRN PRN (Reason: Fever) bisacodyl 10 mg Suppository 10 mg PA DAILY PRN (Reason: Constipation) baclofen 5 mg Granules In Packet 5 mg PO TID levofloxacin 500 mg Tablet 500 mg PO DAILY@0600 2 Days Qty: 2 0RF lansoprazole 30 mg capsule,delayed release(DR/EC) 30 mg feeding tube DAILY Qty: 30 2RF Jevity 1.5 Minor 0.06 gram-1.5 kcal/mL Liquid 250 ml G-tube 5X/DAY Qty: 0 0RF lisinopril 20 mg tablet 40 mg PO DAILY 30 Days Qty: 0 0RF furosemide 40 mg tablet 40 mg PO QHS 30 Days Qty: 30 0RF carvedilol 25 mg Tablet 25 mg PO BID 30 Days Qty: 60 0RF Rx Instructions: must administer with a meal/food tamsulosin 0.4 mg capsule 0.4 mg PO QHS 30 Days Qty: 30 0RF methadone 5 mg tablet 5 mg PO QHS 5 Days Qty: 5 0RF doxazosin 4 mg Tablet 4 mg PO QHS 30 Days Qty: 30 0RF Eliquis 2.5 mg tablet 2.5 mg PO BID 30 Days Qty: 60 1RF amlodipine 10 mg Tablet 10 mg feeding tube DAILY 30 Days Qty: 30 0RF Rx Instructions: Hold for SBP less than 130 mmHg atorvastatin 40 mg tablet 40 mg PO QHS Qty: 90 3RF Label Comments: have not been taking since 04/10--was told not to for 10 day since getting the covid vaccination Primary Care Provider: Delgado Smith Referrals: Delgado Smith DO [Primary Care Provider] - Activity Restrictions/Additional Instructions: Thank you for trusting us with your care today! Please take Tylenol (2 pills, 650 mg), ibuprofen (2 pills, 400 mg) every 6 hours as needed for pain and fever control. Please discontinue taking oxycodone. Please replace oxycodone with codeine. Codeine is also narcotic pain medicine but does control cough effectively. Use this medicine every 6 hours as needed for cough and pain control. Please return to the emergency department if your symptoms change or worsen. Please follow with your primary care physician for further outpatient evaluation and management. Disposition Disposition: Home, Self Care
--- NOTE | 2022-08-21 10:28 | NURSING ---
PT NEEDS RIDE BACK TO HOME- [facility]-- ETA GIVEN 45MIN-1HOUR-- ([id number])
[2022-08-21 10:48] LABS: Mean Corp Hgb Conc 30.4 g/dL (32-36); Mean Corpuscular Hgb 28.7 pg (27.0-32.0); Mean Corpuscular Volume 94.3 fL (80-94); Mean Platelet Vol. 11.4 fl (6.2-12.0); Platelet Count 173 K/mm3 (150-450); RBC Distribution Width CV 15.1 % (11.6-14.6); Red Blood Count 2.44 M/mm3 (4.6-6.2); White Blood Count 10.5 K/mm3 (4.4-11.0)
[2022-08-21 11:02] LABS: Anion Gap 6 (5-15); BUN 51 mg/dL (7-18); BUN/Creat Ratio 42.9 RATIO (10-20); Calcium,Total 8.1 mg/dL (8.5-10.1); Chloride 103 mmol/L (98-107); Creatinine, Serum 1.19 mg/dL (0.70-1.30); EST Glomerular Filtration Rate 65 mL/min (>60); Est Glom Filt Rate - Afr Amer 79 mL/min (>60); Estimated Creatinine Clearance 68.83 ml/min; Glucose 167 mg/dL (74-106); Potassium 4.5 mmol/L (3.5-5.1); Sodium Level 135 mmol/L (136-145)
--- NOTE | 2022-08-21 13:03 | ED.RN ---
THIS RN CONTACTED PT AND INFORMED HER OF PT DISCHARGE INSTRUCTIONS AND ETA FOR TRANSPORT HOME. PT EDUCATED ON HOME GOING PRESCRIPTIONS AND CARE AT HOME. INFORMED OF CATHETER CARE. PT RESTING COMFORTABLY IN BED AT THIS TIME.
--- NOTE | 2022-08-21 14:29 | ED.RN ---
THIS RN CALLED PT TO UPDATE HER THAT THERE HAS BEEN A DELAY IN TRANSPORT ETA FOR PT TO HOME. PT VERBALIZES UNDERSTANDING AND DENIES ANY FURTHER QUESTIONS.
--- NOTE | 2022-08-21 14:36 | ED.RN ---
THIS RN CALLED PT TO UPDATE HER ON NEW ETA OF 1600. THIS RN ASKED PT IF SHE USUALLY CHECKS PT SUGAR AND WHAT TIME HE USUALLY EATS. PT STATES SHE DOES NOT NORMALLY CHECK SUGAR AND PT USUALLY GETS ALL FOOD THROUGH HIS FEEDING TUBE. PT TO CALL FAMILY MEMBER TO BRING FEED TO HOSPITAL TO ADMINISTER FEED OF 1438.
--- NOTE | 2022-08-21 15:21 | ED.RN ---
PER DR. RAMOS VERBAL ORDER, PT OKAY TO GET HOME TUBE FEED THROUGH FEEDING TUBE BROUGHT IN BY FAMILY. TUBE FEED ADMINISTERED BY THIS RN AND Maribel RUIZ RN. PT UPRIGHT IN BED PRIOR TO, DURING, AND FOLLOWING FEEDING. VITAL SIGNS FOLLOWING FEED 112/56, HEART RATE 60, SPO2 95 ON ROOM AIR, RESPIRATIONS 18.
--- NOTE | 2022-08-21 18:43 | ED.RN ---
REPORT GIVEN TO [facility] AT 1843.
--- NOTE | 2022-08-21 18:51 | ED.RN ---
THIS RN CALLED PT AT 1850 TO LET HER KNOW PT IS RETURNING HOME. PT ASKED THIS RN WHETHER OR NOT TO HOLD HOME AFTER NOON MEDICATIONS BUT WAS UNSURE OF WHAT HE GETS. THIS RN RECOMMENDED SHE CONTACT PHARMACIST AND PCP WHO PRESCRIBED MEDICATIONS TO DETERMINE WHAT MEDICATIONS HE IS SUPPOSED TO HAVE AND WHETHER OR NOT IT IS APPROPRIATE TO ADMINISTER THEM WHEN HE RETURNS HOME.
== END 2022-08-21 18:53 | disposition home or self-care (01) ==
PROVIDERS: Emergency Provider Emergency Medicine; PCP Family Medicine; Visit Provider Emergency Medicine
DX: R33.9 Retention of urine, unspecified (principal); I50.32 Chronic diastolic (congestive) heart failure; D64.9 Anemia, unspecified; I25.10 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of native coronary artery without angina pectoris; Z95.1 Presence of aortocoronary bypass graft
CPT/HCPCS: 36415; 51702; 80048; 85027; 99283; A4216

== ENCOUNTER 2022-08-25 22:13 | Observation (INO) | payer MEDICARE, MEDICAID, SELFPAY ==
[2022-08-25 22:19] VITALS: BP 121/65; PULSE 68; RESP 16; TEMP 36.6; O2SAT 94; BMI 22.6
--- NOTE | 2022-08-25 22:19 | EX.ED.DYSGE1 ---
HPI History of Present Illness Chief Complaint: Cough Detail of Chief Complaint: Choked at home Informant: EMS Onset/Context/Timing Onset: Today Context: Sudden Onset Timing: Intermittent Current Severity: Mild Maximum Severity: Mild Narrative Narrative: 62-year-old male with extensive past medical history including diabetes, hypertension and prior stroke with right-sided hemiparesis and significant difficulty with speech. Reportedly was choking tonight at home. He is really unable to give me much of a history at all. Currently and there is no family with him. This is what was reported by EMS. Recent Illness/Hospitalization: Yes [facility] Medical History Abdominal pain Acute bronchitis RAFA (acute kidney injury) Alcohol abuse Anemia Atherosclerosis of coronary artery without angina pectoris 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creek coronary artery w/angina pectoris Bacteremia Bone cancer Bradycardia Cataracts, both eyes Cerebral arteriosclerosis with history of previous cerebrovascular accident Charcot's joint, left ankle and foot Chronic diastolic (congestive) heart failure Chronic pain Diabetes mellitus, type II Diabetic retinopathy Diastolic dysfunction with acute on chronic heart failure Essential hypertension GERD (gastroesophageal reflux disease) Hammer toe of left foot HLD (hyperlipidemia) Hyponatremia Infection of left foot Iron deficiency anemia 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 MSSA bacteremia Nephrotic syndrome Neuropathy Non-smoker Normocytic anemia Obesity (BMI 30.0-34.9) Osteomyelitis PAD (peripheral artery disease) Postoperative atrial fibrillation (06/12/18) 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) Secondary pulmonary arterial hypertension Sinus bradycardia Syncope Type 2 diabetes mellitus Ulcer of left foot UTI (urinary tract infection) Home Medications aspirin 81 mg tablet,delayed release 81 mg PO DAILY heart health 09/09/18 [History Last Taken 06/13/22] nitroglycerin 0.4 mg sublingual tablet 0.4 mg sublingual Q5M PRN Cardiac/Chest Pain #25 tabs 10/17/18 [Rx Last Taken 08/08/19] atorvastatin 40 mg tablet 40 mg PO QHS cholesterol #90 tabs 01/18/21 [Rx Last Taken 06/13/22] sennosides 8.6 mg-docusate sodium 50 mg tablet (Senexon-S) 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 05/10/21 [History Last Taken 06/13/22] blood ketone glucose monitor #1 ea 06/06/21 [History Last Taken Unknown] lancets #100 ea 06/06/21 [History Last Taken Unknown] allopurinol 100 mg tablet 100 mg PO DAILY gout 09/06/21 [History Last Taken 06/13/22] gabapentin 100 mg capsule 200 mg PO TID NEUROPATHY 09/13/21 [History Last Taken 06/13/22] oxycodone 10 mg tablet 10 mg PO Q4H PRN Pain 09/13/21 [History Last Taken 06/14/22 06:00] pembrolizumab 25 mg/mL intravenous solution (Keytruda) 25 mg IV .UD CANCER 09/13/21 [History Last Taken 06/06/22] ferrous fumarate 324 mg (106 mg iron) tablet (Ferrocite) 324 mg PO BID supplement 04/16/22 [History Last Taken 06/13/22] hydralazine 50 mg tablet 50 mg PO TID 90 days #270 tabs 04/23/22 [Rx Last Taken 06/13/22] acetaminophen 500 mg tablet (Acetaminophen Extra Strength) 500 mg PO Q6H PRN Pain 06/14/22 [History Last Taken 06/13/22] ergocalciferol (vitamin D2) 1,250 mcg (50,000 unit) capsule 1,250 mcg PO SA SUPPLEMENT 06/14/22 [History Last Taken 06/09/22] acetaminophen 650 mg rectal suppository 650 mg IL Q4H PRN PRN Fever 08/10/22 [History Last Taken Unknown] baclofen 5 mg oral granules in packet 5 mg PO TID muscle spasm 08/10/22 [History Last Taken Unknown] bisacodyl 10 mg rectal suppository 10 mg [place] DAILY PRN Constipation 08/10/22 [History Last Taken Unknown] carvedilol 25 mg tablet 25 mg PO BID BP 30 days #60 tabs 08/17/22 [Rx Last Taken Unknown] doxazosin 4 mg tablet 4 mg PO QHS BPH 30 days #30 tabs 08/17/22 [Rx Last Taken Unknown] furosemide 40 mg tablet 40 mg PO QHS water 30 days #30 tabs 08/17/22 [Rx Last Taken 06/13/22] lactose-reduced food with fiber 0.06 gram-1.5 kcal/mL oral liquid (Jevity 1.5 Minor) 250 ml G-tube 5X/DAY #0 mL 08/17/22 [Rx Last Taken Unknown] levofloxacin 500 mg tablet 500 mg PO DAILY@0600 2 days #2 tabs 08/17/22 [Rx Last Taken Unknown] lisinopril 20 mg tablet 40 mg PO DAILY bp 30 days #0 tabs 08/17/22 [Rx Last Taken 06/13/22] methadone 5 mg tablet 5 mg PO QHS PAIN, metastatic CA 5 days #5 tabs 08/17/22 [Rx Last Taken 06/13/22] tamsulosin 0.4 mg capsule 0.4 mg PO QHS prostate 30 days #30 caps 08/17/22 [Rx Last Taken 06/13/22] apixaban 2.5 mg tablet (Eliquis) 2.5 mg PO BID 30 days #60 tabs 08/19/22 [Rx Last Taken Unknown] acetaminophen 120 mg-codeine 12 mg/5 mL (5 mL) oral solution 5 ml PO Q6H PRN pain 3 days #500 mL 08/21/22 [Rx Last Taken Unknown] amlodipine 10 mg tablet 10 mg PO DAILY bp 08/26/22 [History Last Taken Unknown] lansoprazole 30 mg capsule,delayed release 30 mg PO DAILY 08/26/22 [History Last Taken Unknown] Allergy/AdvReac Type Severity Reaction Status Date / Time banana Allergy Intermediate Swelling Verified 08/16/22 17:48 Penicillins [PCN] Allergy Unknown Verified 06/29/22 15:08 morphine AdvReac Mild confusion Verified 06/29/22 15:08 Family History Mother Diabetes Parkinson disease Grandmother Cancer Surgical History Amputated toe of left foot (08/2018) H/O coronary artery bypass surgery (06/12/18) H/O eye surgery History of left heart catheterization (05/20/18) Hx of cholecystectomy S/P meniscectomy Social History household members: spouse Smoking Status: Never smoker alcohol intake: current alcohol intake frequency: a few times a week substance use type: does not use caffeine: No ROS ROS ED ROS Narrative Patient unable to give any past medical history. Review of Systems ROS Unobtainable: due to mental status EXAM Physical Exam Narrative Exam Narrative: 62-year-old male no acute distress. Vital signs are stable afebrile. Pulse ox is 94% on. H EENT exam unremarkable. Moist mucous membranes. He has very limited speech due to a prior stroke. Neck nontender no lymphadenopathy. Lungs clear to auscultation bilaterally. Heart regular rate and rhythm rate about 70. Abdomen soft nontender, nondistended normal bowel sounds no peritoneal signs. Midepigastric feeding tube. Patient has flaccid paralysis of his right arm and right leg from reported prior stroke. He is significantly weak in his left leg and is holding an emesis bag in his left hand. Neurologically he is awake. He will open his eyes. He will only follow extremely limited commands. He speaks in one-word very limited phrases. Currently there is no one with him. Const Vital Signs: 08/25/22 22:19 08/26/22 00:14 Temperature 97.8 F Temperature Source Temporal Pulse Rate 68 63 Respiratory Rate 16 17 Blood Pressure 121/65 H 112/59 L Blood Pressure Mean 83 76 Pulse Ox 94 90 Oxygen Delivery Method Room Air Room Air Positive well nourished and well developed; Negative for cachectic, contractures or unkempt General Appearance ED: well developed and NAD; Negative for unkempt, cachectic, contractures, cyanotic, diaphoretic or pallor Nutritional Appearance: Negative for cachectic HEENT Reports moist mucous membranes; Denies dry mucous membranes Negative for trauma or tenderness Mouth ED: No dry mucous membranes Mouth: No dry mucous membranes Eyes PERRL and EOMs intact bilaterally General Eye ED: Negative for pale conjunctiva or scleral icterus Neck no lymphadenopathy, supple and no JVD General: Negative for tenderness Lymph Lymphatic: Negative for other Chest Wall inspection of chest normal and palpation of chest normal Chest: Negative for other Resp normal respiratory effort and clear to auscultation bilaterally Effort and Inspection: Negative for retractions Auscultation: Negative for rales, rhonchi or wheezes Cardio regular rate, regular rhythm, S1 normal heart sound, S2 normal heart sound and no murmurs Rate: Negative for bradycardia or tachycardic Rhythm: Negative for abnormal rhythm GI normal to inspection, nondistended, normoactive bowel sounds, non-tender, non-distended and no masses GI Narrative: Feeding tube. Inspection: Negative for abdominal distention Auscultation: normoactive bowel sounds Palpation: soft; Negative for tender or guarding Back/Spine no CVA tenderness Psych Appearance: Negative for unkempt Skin no rashes or lesions noted and no wounds General Skin Exam: elasticity normal; Negative for jaundice or pallor Lesions: No lesion noted Rashes: No rashes noted Trauma: Negative for abrasion Wounds: Negative for wounds noted MDM MDM MDM Narrative Medical decision making narrative: 62-year-old male with extensive past medical history primarily based around a stroke with right-sided paralysis. Reportedly choked tonight at home. I will attempt to get a hold of family at home to see if I get additional history. His exam is benign his vital signs are stable and his pulse ox is 94. I will obtain a chest x-ray. Just prior to my repeat exam nurses informed me that the patient had bright red blood per rectum consistent with a lower GI bleed. He is on the blood thinner Eliquis. He does have acute on chronic anemia. He was typed and crossed for 2 units. He will be transfused a unit when it is available. His most recent hemoglobin was 7 prior to that he was around 8. Repeat exam patient is resting comfortably. I do long discussion about the patient and his . absolutely does not want the patient transferred. He has been in both adult hospitals in [place] and she prefers not to go to either one of them. She understands that we do not have GI coronary clinical specialist this weekend. She understands her may be procedures that we cannot do at this time and at this signs of facility. She understands the risk and benefits. I will discuss admission with the hospitalist. History & Record Review Discussion w/independent historian: EMS personnel and Patient Additional record(s) reviewed:: Prior inpatient record, Prior outpatient record, Prior ED visit and Prior labs Lab Data Attestation: I reviewed the patient's lab results. Lab results narrative: CBC shows a white count 10.9. H&H of 6.2 and 20.4. He has a chronic anemia but there is about a unit of blood lower than his most recent blood count. Platelets are 199. Chemistries show sodium 129. Potassium of 5.7. Gap of 8. BUN of 66 and creatinine 1.56. Elevated from prior. Glucose 169. Lactic acid is normal at 1.9. Liver enzymes are unremarkable. Urinalysis is negative other than 2+ bacteria. Chest x-ray shows chronic changes no acute process. Flu and COVID are both negative. Blood cultures are pending. Labs: Laboratory Results - last 24 hr 08/25/22 08/25/22 08/25/22 00:02 00:02 23:18 WBC 10.9 RBC 2.22 L Hgb 6.2 L Hct 20.4 L MCV 91.9 MCH 27.9 MCHC 30.4 L RDW Std Deviation 51.2 H RDW Coeff of Dipti 15.2 H Plt Count 199 MPV 11.2 Immature Gran % (Auto) 1.200 H Neut % (Auto) 81.3 H Lymph % (Auto) 3.9 L [place] % (Auto) 12.6 H Eos % (Auto) 0.8 Baso % (Auto) 0.2 Absolute Neuts (auto) 8.9 H Absolute Lymphs (auto) 0.43 L Nucleated RBC % 0 Differential Comment SCANNED Retic Count Immature Retic Fraction Retic Hgb Equivalent PT INR APTT Sodium 129 L Potassium 5.7 H Chloride 97 L Carbon Dioxide 24.0 Anion Gap 8 BUN 66 H Creatinine 1.56 H Estim Creat Clear Calc 51.15 Est GFR (MDRD) Af Amer 58 L Est GFR (MDRD) Non-Af 48 L BUN/Creatinine Ratio 42.3 H Glucose 169 H Lactic Acid 1.9 Calcium 7.8 L Iron TIBC Iron Saturation Ferritin Total Bilirubin 0.50 AST 32 ALT 39 Alkaline Phosphatase 198 H Total Protein 6.7 Albumin 2.0 L Globulin 4.7 H Albumin/Globulin Ratio 0.4 L Urine Color Urine Clarity Urine pH Ur Specific [place] Urine Protein Urine Glucose (UA) Urine Ketones Urine Occult Blood Urine Nitrite Urine Bilirubin Urine Urobilinogen Ur Leukocyte Esterase Urine RBC Urine WBC Ur Squamous Epith Cells Urine Bacteria Urine Mucus Blood Type Antibody Screen Crossmatch 08/25/22 08/26/22 08/26/22 23:18 00:02 00:02 WBC RBC Hgb Hct MCV MCH MCHC RDW Std Deviation RDW Coeff of Dipti Plt Count MPV Immature Gran % (Auto) Neut % (Auto) Lymph % (Auto) [place] % (Auto) Eos % (Auto) Baso % (Auto) Absolute Neuts (auto) Absolute Lymphs (auto) Nucleated RBC % Differential Comment Retic Count 1.97 H Immature Retic Fraction 17.50 H Retic Hgb Equivalent 25.3 L PT INR APTT Sodium Potassium Chloride Carbon Dioxide Anion Gap BUN Creatinine Estim Creat Clear Calc Est GFR (MDRD) Af Amer Est GFR (MDRD) Non-Af BUN/Creatinine Ratio Glucose Lactic Acid Calcium Iron 18 L TIBC 132 L Iron Saturation 13.6 L Ferritin 1203 H Total Bilirubin AST ALT Alkaline Phosphatase Total Protein Albumin Globulin Albumin/Globulin Ratio Urine Color Yellow Urine Clarity Clear Urine pH 6.0 Ur Specific [place] 1.010 Urine Protein 30 H Urine Glucose (UA) Normal Urine Ketones Negative Urine Occult Blood 10 H Urine Nitrite Negative Urine Bilirubin Negative Urine Urobilinogen Normal Ur Leukocyte Esterase 25 H Urine RBC 0-5 SEEN Urine WBC 0 SEEN Ur Squamous Epith Cells 0 SEEN Urine Bacteria 2+ Urine Mucus 0 SEEN Blood Type Antibody Screen Crossmatch 08/26/22 08/26/22 00:23 01:00 WBC RBC Hgb Hct MCV MCH MCHC RDW Std Deviation RDW Coeff of Dipti Plt Count MPV Immature Gran % (Auto) Neut % (Auto) Lymph % (Auto) [place] % (Auto) Eos % (Auto) Baso % (Auto) Absolute Neuts (auto) Absolute Lymphs (auto) Nucleated RBC % Differential Comment Retic Count Immature Retic Fraction Retic Hgb Equivalent PT 20.0 H INR 1.7 APTT 56.0 H Sodium Potassium Chloride Carbon Dioxide Anion Gap BUN Creatinine Estim Creat Clear Calc Est GFR (MDRD) Af Amer Est GFR (MDRD) Non-Af BUN/Creatinine Ratio Glucose Lactic Acid Calcium Iron TIBC Iron Saturation Ferritin Total Bilirubin AST ALT Alkaline Phosphatase Total Protein Albumin Globulin Albumin/Globulin Ratio Urine Color Urine Clarity Urine pH Ur Specific [place] Urine Protein Urine Glucose (UA) Urine Ketones Urine Occult Blood Urine Nitrite Urine Bilirubin Urine Urobilinogen Ur Leukocyte Esterase Urine RBC Urine WBC Ur Squamous Epith Cells Urine Bacteria Urine Mucus Blood Type A POSITIVE Antibody Screen NEGATIVE Crossmatch See Detail Radiography Chest X-Ray - ED: 1 View, Read by ED Physician, Heart, Lungs, Mediastinum, Bony Structures, No Acute Disease and Chronic Changes Diagnostic Testing: Clinical Impression(s) from Imaging Studies Chest X-Ray 08/25/22 22:25 IMPRESSION: Stable chest with the exception of a small linear band of atelectasis in the right lung base. Diffuse bone findings consistent with the patient''s known metastatic disease. Electronically Signed: Hannah Fan MD at 23:03 EDT , Chest x-ray, portable, single view, interpreted by myself shows no acute process. Normal cardiac silhouette. Normal lung pena. Lotta chronic degenerative changes. Prior sternotomy with wiring. Prior thoracic spine orthopedic hardware surgery. When compared to chest x-ray about 2 weeks ago the very similar. Known history of bony metastases. Discharge Plan Dx/Rx/DC Orders Clinical Impression: Fever, Hx of CABG, Acute lower gastrointestinal bleeding, Chronic anemia, Chronic anticoagulation, History of embolic stroke Disposition Disposition: Acute Care Hospital [facility]
--- NOTE | 2022-08-25 22:25 | RAD_ITS ---
EXAM: XR CHEST, 1 VIEW CLINICAL INDICATION: choked . According to prior report of CTA chest April 16, 2022 there is also a history of parotid neoplasm and bone metastases with diffuse metastatic bone disease. Mention of chronic bilateral scapular and sternal fractures. TECHNIQUE: Frontal view of the chest. COMPARISON: August 11, 2022, April 16, 2022, CTA chest April 16, 2022 FINDINGS: LUNGS AND PLEURAL SPACES: Stable slightly increased interstitial markings in the lungs and a thin band of right basilar atelectasis. No significant infiltrate or effusions. No pneumothorax. HEART: Stable upper limits of normal heart size. MEDIASTINUM: Central airways and mediastinal contour are unremarkable. BONES/JOINTS: Sclerosis of right glenoid and bilateral proximal acromium is and sclerosis of multiple ribs and spine levels with postoperative changes at the lower thoracic spine appears similar. Median sternotomy wires are again noted. SOFT TISSUES: Unremarkable. RAD/Chest 1 View (Portable) IMPRESSION: Stable chest with the exception of a small linear band of atelectasis in the right lung base. Diffuse bone findings consistent with the patient''s known metastatic disease. Electronically Signed: Hannah Fan MD at 23:03 EDT ,
[2022-08-25 23:26] LABS: Mucous, Urine 0 SEEN /hpf (<or=2+); Squamous Epithelial Cells - UA 0 SEEN /hpf (0-5); White Blood Cells 0 SEEN /hpf (0-5)
[2022-08-25 23:31] LABS: Color, Urine Yellow (Yellow); Glucose, Dipstick Normal (Normal); Ketone-Dipstick Negative (Negative); Leukocyte Esterase-Dipstick 25 /ul (Negative); Nitrite-Dipstick Negative (Negative); Occult Blood-Urine 10 /ul (Negative); Protein-Dipstick 30 mg/dl (Negative); Urine Bilirubin Dipstick Negative (Negative); Urine Clarity Clear (Clear); Urine Urobilinogen Normal (Normal)
[2022-08-25 23:57] LABS: Bacteria 2+ /hpf (None Seen); Lactic Acid 1.9 mmol/L (0.4-1.9); Red Blood Cells-Urine 0-5 SEEN /hpf (0-5)
[2022-08-26] VITALS (19 sets, daily range): BP systolic 110–135; BP diastolic 47–65; PULSE 60–103; RESP 13–19; TEMP 36.6–37.7; O2SAT 88–98; BMI 22.2
[2022-08-26 00:13] LABS: Absolute Lymphocyte Count 0.43 X10^3/uL (0.83-4.51); Absolute Neutrophil Count 8.9 X10^3/uL (2.0-7.7); Basophil# 0.02 X10^3/uL; Basophil% 0.2 % (0-1); Eosinophil# 0.09 X10^3/uL; Eosinophils% 0.8 % (0-5); Hematocrit 20.4 % (40-54); Hemoglobin 6.2 g/dL (13.0-16.5); Lymphocyte # 0.43 X10^3/ul (0.83-4.51); Lymphocyte % 3.9 % (19-41); Mean Corp Hgb Conc 30.4 g/dL (32-36); Mean Corpuscular Hgb 27.9 pg (27.0-32.0); Mean Corpuscular Volume 91.9 fL (80-94); Mean Platelet Vol. 11.2 fl (6.2-12.0); Monocyte# 1.37 X10^3/uL; Monocyte% 12.6 % (0-10); NRBC Flagged by Analyzer 0 % (0-5); Neutrophil # 8.86 X10^3/uL (2.7-7.7); Neutrophil % 81.3 % (47-70); POSITIVE DIFFERENTIAL YES; Platelet Count 199 K/mm3 (150-450); RBC Distribution Width CV 15.2 % (11.6-14.6); RBC Distribution Width SD 51.2 fl (35.1-43.9); Red Blood Count 2.22 M/mm3 (4.6-6.2); White Blood Count 10.9 K/mm3 (4.4-11.0)
[2022-08-26 00:14] LABS: Differential Indicated SCAN CRITERIA MET
[2022-08-26 00:36] LABS: ALB/GLOB Ratio 0.4 RATIO (0.9-2.4); AST(SGOT) 32 U/L (15-37); Alanine Aminotransfer ALT/SGPT 39 U/L (16-61); Alkaline Phosphatase 198 U/L (45-117); Anion Gap 8 (5-15); BUN 66 mg/dL (7-18); BUN/Creat Ratio 42.3 RATIO (10-20); Calcium,Total 7.8 mg/dL (8.5-10.1); Chloride 97 mmol/L (98-107); Creatinine, Serum 1.56 mg/dL (0.70-1.30); EST Glomerular Filtration Rate 48 mL/min (>60); Est Glom Filt Rate - Afr Amer 58 mL/min (>60); Estimated Creatinine Clearance 51.15 ml/min; Globulin 4.7 g/dL (2.2-4.2); Glucose 169 mg/dL (74-106); Potassium 5.7 mmol/L (3.5-5.1); Protein, Total 6.7 g/dL (6.4-8.2); Sodium Level 129 mmol/L (136-145)
[2022-08-26] MEDS: Ondansetron 4 MG/2 ML Vial IV (00:36)
[2022-08-26] MEDS: fentaNYL 100 MCG/2 ML Ampul 25 MCG IV (00:40)
[2022-08-26 01:15] LABS: Differential Comment SCANNED
[2022-08-26 01:17] LABS: International Normalized Ratio 1.7
--- NOTE | 2022-08-26 01:22 | HP.PCM.HOS_ITS ---
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 At baseline patient can only stand up with therapy. About two and a half hours before presentation patient was found to be coughing and vomiting. report that this occurred after she changed patient. It Lasted for about 15 to 20 minutes. And patient was found to have stopped breathing secondary to the coughing and vomiting. report that the patient has had a fever in the past 2 days with temperature ranging between 99.8 Fahrenheit to 100.4 Fahrenheit. Patient's reports that patient was at the ED and dislocation and had a Fole y catheter placed. Per patient's , patient completed a course of antibiotics and antibiotics was resumed again because patient had urinary retention [facility] Medical History Abdominal pain Acute bronchitis RAFA (acute kidney injury) Alcohol abuse Anemia Atherosclerosis of coronary artery without angina pectoris 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[place] coronary artery w/angina pectoris Bacteremia Bone cancer Bradycardia Cataracts, both eyes Cerebral arteriosclerosis with history of previous cerebrovascular accident Charcot's joint, left ankle and foot Chronic diastolic (congestive) heart failure Chronic pain Diabetes mellitus, type II Diabetic retinopathy Diastolic dysfunction with acute on chronic heart failure Essential hypertension GERD (gastroesophageal reflux disease) Hammer toe of left foot HLD (hyperlipidemia) Hyponatremia Infection of left foot Iron deficiency anemia 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 MSSA bacteremia Nephrotic syndrome Neuropathy Non-smoker Normocytic anemia Obesity (BMI 30.0-34.9) Osteomyelitis PAD (peripheral artery disease) Postoperative atrial fibrillation (06/12/18) 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) Secondary pulmonary arterial hypertension Sinus bradycardia Syncope Type 2 diabetes mellitus Ulcer of left foot UTI (urinary tract infection) Home Medications aspirin 81 mg tablet,delayed release 81 mg PO DAILY heart health 09/09/18 [History Last Taken 06/13/22] nitroglycerin 0.4 mg sublingual tablet 0.4 mg sublingual Q5M PRN Cardiac/Chest Pain #25 tabs 10/17/18 [Rx Last Taken 08/08/19] atorvastatin 40 mg tablet 40 mg PO QHS cholesterol #90 tabs 01/18/21 [Rx Last Taken 06/13/22] sennosides 8.6 mg-docusate sodium 50 mg tablet ([place]-S) 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 05/10/21 [History Last Taken 06/13/22] blood ketone glucose monitor #1 ea 06/06/21 [History Last Taken Unknown] lancets #100 ea 06/06/21 [History Last Taken Unknown] allopurinol 100 mg tablet 100 mg PO DAILY gout 09/06/21 [History Last Taken 06/13/22] gabapentin 100 mg capsule 200 mg PO TID NEUROPATHY 09/13/21 [History Last Taken 06/13/22] oxycodone 10 mg tablet 10 mg PO Q4H PRN Pain 09/13/21 [History Last Taken 06/14/22 06:00] pembrolizumab 25 mg/mL intravenous solution (Keytruda) 25 mg IV .UD CANCER 09/13/21 [History Last Taken 06/06/22] ferrous fumarate 324 mg (106 mg iron) tablet (Ferrocite) 324 mg PO BID supplem ent 04/16/22 [History Last Taken 06/13/22] hydralazine 50 mg tablet 50 mg PO TID 90 days #270 tabs 04/23/22 [Rx Last Taken 06/13/22] acetaminophen 500 mg tablet (Acetaminophen Extra Strength) 500 mg PO Q6H PRN Pain 06/14/22 [History Last Taken 06/13/22] ergocalciferol (vitamin D2) 1,250 mcg (50,000 unit) capsule 1,250 mcg PO SA SUPPLEMENT 06/14/22 [History Last Taken 06/09/22] acetaminophen 650 mg rectal suppository 650 mg WA Q4H PRN PRN Fever 08/10/22 [History Last Taken Unknown] baclofen 5 mg oral granules in packet 5 mg PO TID muscle spasm 08/10/22 [History Last Taken Unknown] bisacodyl 10 mg rectal suppository 10 mg WA DAILY PRN Constipation 08/10/22 [History Last Taken Unknown] carvedilol 25 mg tablet 25 mg PO BID BP 30 days #60 tabs 08/17/22 [Rx Last Taken Unknown] doxazosin 4 mg tablet 4 mg PO QHS BPH 30 days #30 tabs 08/17/22 [Rx Last Taken Unknown] furosemide 40 mg tablet 40 mg PO QHS water 30 days #30 tabs 08/17/22 [Rx Last Taken 06/13/22] lactose-reduced food with fiber 0.06 gram-1.5 kcal/mL oral liquid (Jevity 1.5 Minor) 250 ml G-tube 5X/DAY #0 mL 08/17/22 [Rx Last Taken Unknown] levofloxacin 500 mg tablet 500 mg PO DAILY@0600 2 days #2 tabs 08/17/22 [Rx Last Taken Unknown] lisinopril 20 mg tablet 40 mg PO DAILY bp 30 days #0 tabs 08/17/22 [Rx Last Taken 06/13/22] methadone 5 mg tablet 5 mg PO QHS PAIN, metastatic CA 5 days #5 tabs 08/17/22 [Rx Last Taken 06/13/22] tamsulosin 0.4 mg capsule 0.4 mg PO QHS prostate 30 days #30 caps 08/17/22 [Rx Last Taken 06/13/22] apixaban 2.5 mg tablet (Eliquis) 2.5 mg PO BID 30 days #60 tabs 08/19/22 [Rx Last Taken Unknown] acetaminophen 120 mg-codeine 12 mg/5 mL (5 mL) oral solution 5 ml PO Q6H PRN pain 3 days #500 mL 08/21/22 [Rx Last Taken Unknown] amlodipine 10 mg tablet 10 mg PO DAILY bp 08/26/22 [History Last Taken Unknown] lansoprazole 30 mg capsule,delayed release 30 mg PO DAILY 08/26/22 [History Last Taken Unknown] Allergy/AdvReac Type Severity Reaction Status Date / Time banana Allergy Intermediate Swelling Verified 08/16/22 17:48 Penicillins [PCN] Allergy Unknown Verified 06/29/22 15:08 morphine AdvReac Mild confusion Verified 06/29/22 15:08 Family History Mother Diabetes Parkinson disease Grandmother Cancer Surgical History Amputated toe of left foot (08/2018) H/O coronary artery bypass surgery (06/12/18) H/O eye surgery History of left heart catheterization (05/20/18) Hx of cholecystectomy S/P meniscectomy Social History household members: spouse Smoking Status: Never smoker alcohol intake: current alcohol intake frequency: a few times a week substance use type: does not use caffeine: No ROS ROS Narrative Pertinent positives and pertinent negatives as noted in HPI. All other systems were reviewed and are negative Vital Signs Vital Signs Vital Signs: 08/25/22 22:19 08/26/22 00:14 Temperature 97.8 F Temperature Source Temporal Pulse Rate 68 63 Respiratory Rate 16 17 Blood Pressure 121/65 H 112/59 L Blood Pressure Mean 83 76 Pulse Ox 94 90 Oxygen Delivery Method Room Air Room Air Weight Weight: 75.6 kg Body Mass Index (BMI) 22.6 Physical Exam Narrative Physical exam: General: Looks chronically ill. Head: Normocephalic, atraumatic, no tenderness Eyes: Open eyes upon command. No conjunctival injection.? ENT: Moist mucous membrane Neck: Nontender, No thyromegaly. CVS:? Irregular irregular rate and rhythm.? Diminished heart sounds Respiratory : Rales at right base. chest wall nontender Abdomen: PEG tube in place.? Soft, nontender, nondistended, normal bowel sounds, no masses : Zhu catheter in place Back: Nontender, no CVA tenderness, no midline spinal tenderness Extremities: Nontender; Lost of some phalanges of left foot. Skin: Deep ulcer at middle to lower spine, ulcer at coccyx. Neuro: Lethargic. Follow commands to open eyes. Does not follow many commands. Answers no to whether he knows why he is at the hospital. Psychiatry: Lethargic Results Lab / Micro Data Result Diagrams: 08/25/22 00:02 08/25/22 00:02 Labs: Laboratory Results - last 24 hr 08/25/22 00:02: WBC 10.9, RBC 2.22 L, Hgb 6.2 L, Hct 20.4 L, MCV 91.9, MCH 27.9, MCHC 30.4 L, RDW Std Deviation 51.2 H, RDW Coeff of Dipti 15.2 H, Plt Count 199, MPV 11.2, Immature Gran % (Auto) 1.200 H, Neut % (Auto) 81.3 H, Lymph % (Auto) 3.9 L, Cecil % (Auto) 12.6 H, Eos % (Auto) 0.8, Baso % (Auto) 0.2, Absolute Neuts (auto) 8.9 H, Absolute Lymphs (auto) 0.43 L, Nucleated RBC % 0, Differential Comment SCANNED 08/25/22 00:02: Sodium 129 L, Potassium 5.7 H, Chloride 97 L, Carbon Dioxide 24.0, Anion Gap 8, BUN 66 H, Creatinine 1.56 H, Estim Creat Clear Calc 51.15, Est GFR (MDRD) Af Amer 58 L, Est GFR (MDRD) Non-Af 48 L, BUN/Creatinine Ratio 42.3 H, Glucose 169 H, Calcium 7.8 L, Total Bilirubin 0.50, AST 32, ALT 39, Alkaline Phosphatase 198 H, Total Protein 6.7, Albumin 2.0 L, Globulin 4.7 H, Albumin/Globulin Ratio 0.4 L 08/25/22 23:18: Lactic Acid 1.9 08/25/22 23:18: Urine Color Yellow, Urine Clarity Clear, Urine pH 6.0, Ur Specific [place] 1.010, Urine Protein 30 H, Urine Glucose (UA) Normal, Urine Ketones Negative, Urine Occult Blood 10 H, Urine Nitrite Negative, Urine Bili santana Negative, Urine Urobilinogen Normal, Ur Leukocyte Esterase 25 H, Urine RBC 0-5 SEEN, Urine WBC 0 SEEN, Ur Squamous Epith Cells 0 SEEN, Urine Bacteria 2+, Urine Mucus 0 SEEN 08/26/22 00:23: Crossmatch See Detail 08/26/22 01:00: PT 20.0 H, INR 1.7, APTT 56.0 H Micro: Microbiology 08/25/22 23:10 Nasal Secretion SARS-CoV-2 & FLU Antigen (Rapid) - Final Radiology Impression Chest X-Ray 08/25/22 22:25 IMPRESSION: Stable chest with the exception of a small linear band of atelectasis in the right lung base. Diffuse bone findings consistent with the patient''s known metastatic disease. Electronically Signed: Hannah Fan MD at 23:03 EDT , Assessment & Plan Assessment/Plan (1) ABLA (acute blood loss anemia): (2) Diabetes mellitus, type II: QUALIFIERS: Diabetes mellitus intermediate manager insulin use: without intermediate manager use Diabetes mellitus complication status: with other specified complication Qualified Code(s): E11.69 - Type 2 diabetes mellitus with other specified complication (3) Metastatic squamous cell carcinoma: (4) Aspiration into airway: (5) Acute lower gastrointestinal bleeding: PLAN: Plan Acute blood loss anemia Hemoglobin on presentation was 6.2. His hemoglobin before presentation was 7.0. Baseline hemoglobin is around 8.4. One unit of blood ordered to be transfused at the ED and another unit ordered to be on hold. Will check H&H 1 hour after transfusion. We will check ferritin level, reticulocytes, iron profile, vitamin B12 and folate acid. Emergency Department discussed the case with general surgery who will be consulted. Likely lower GI bleed. However patient is on home Lansoprazole. Will order IV Protonix. We will keep patient n.p.o. Hold aspirin and Eliquis. Will hold Lasix and other essential meds. Possible aspiration pneumonia Patient with radiologist at right base. Temperature of 99.8 F to 100.4F at home. A Tmax of 99.8F on presentation. Impression of chest x-ray by radiology: Stable chest with the exception of a small linear band of atelectasis in the right lung base. Diffuse bone findings consistent with the patient''s known metastatic disease. Chest x-ray was independently interpreted and I agree with radiology interpretation. Review of sputum microbiology shows that patient had ESBL Klebsiella pneumoniae; MRSA and haemophilus influenza on sputum culture. Per family patient has a couple of doses more of Levaquin left. We will hold p.o. Levaquin. IV Levaquin ordered. Will add Flagyl IV to her regimen. Hyponatremia Sodium of 129 on presentation. Likely secondary to hypovolemia and prerenal injury from blood loss. Also home diuretic use could be contributing. Blood transfusion ordered. Trend BMP Hyperkalemia Potassium 5.7 on presentation. Neck secondary to hypovolemia and prerenal injury from blood loss. Blood transfusion ordered. Trend BMP RAFA on CKD stage II Creatinine on presentation was 1.56. Baseline creatinine is less than 1. BUN is 66. BUN over creatinine is 42.3. Likely prerenal. Hold home Lasix. Blood transfusion as above. Trend BMP. Avoid nephrotoxic's Diabetic mellitus Not on home insulin. Blood glucose on presentation was stable. Accu-Chek aroun d-the-clock ordered. Stage III pressure ulcer on Lower to middle spine; and stage II pressure ulcer on coccyx Avelyn ordered. Wound care consult. Chronic heart failure with preserved ejection fraction Review of records with echocardiogram 1 04/16/2022 showed ejection fraction of 55% with diastolic dysfunction indeterminate and mild concentric left ventricular hypertrophy. Home Lasix on hold secondary to RAFA . Cautious use of fluids. Atrial fibrillation. Stable Home Eliquis held secondary to hematochezia. Urinary retention/UTI Urine culture on 08/11/2022 was positive for ESBL E. coli. Levaquin p.o. changed to IV and continued. DVT prophylaxis: SCDs ordered. Charges/Coding Visit Charges Inpatient E&M: 00565 Init Hosp L3
--- NOTE | 2022-08-26 01:43 | NURSING ---
MED SURG AGYEPONG LOWER GI BLEED, ANEMIA, FEVER, OLD CVA, METASTATIC MELANOMA
[2022-08-26 02:05] LABS: Platelet Count 197 K/mm3 (150-450); RET-HE 25.3 pg (30-35); Reticulocyte Count 1.97 % (0.5-1.5)
[2022-08-26 02:18] LABS: Ferritin 1203 ng/mL (26-388); Iron 18 ug/dL (65-175); Iron Binding Capacity,Total 132 ug/dL (250-450); PERCENT IRON SATURATION 13.6 % (15.0-55.0)
--- NOTE | 2022-08-26 03:36 | NURSING ---
Patient is a poor historian unable to get information from him. He replies No to every question then when if asked if he always says No . Patient then said Yes .
[2022-08-26] MEDS: metroNIDAZOLE 500 MG/100 ML BAG 100 MG IV ×3 (04:08→21:52)
[2022-08-26] MEDS: 0.9% Saline Lock 10 ML Syringe IV (04:08)
[2022-08-26 04:46] LABS: Bedside Glucose 132 mg/dL (74-106)
[2022-08-26 06:55] LABS: Hematocrit 20.3 % (40-54); Hemoglobin 6.4 g/dL (13.0-16.5)
[2022-08-26 07:19] LABS: Anion Gap 6 (5-15); BUN 63 mg/dL (7-18); BUN/Creat Ratio 44.1 RATIO (10-20); Calcium,Total 7.8 mg/dL (8.5-10.1); Chloride 100 mmol/L (98-107); Creatinine, Serum 1.43 mg/dL (0.70-1.30); EST Glomerular Filtration Rate 53 mL/min (>60); Est Glom Filt Rate - Afr Amer 64 mL/min (>60); Estimated Creatinine Clearance 54.99 ml/min; Glucose 128 mg/dL (74-106); Potassium 5.5 mmol/L (3.5-5.1); Sodium Level 129 mmol/L (136-145)
--- NOTE | 2022-08-26 07:52 | CT_ITS ---
STUDY: CT ABDOMEN AND PELVIS WITHOUT CONTRAST REASON FOR EXAM: Male, 62 years old. Vomiting. Anemia. RADIATION DOSAGE (If Supplied By Facility): CTDIvol = ( 16.90 ) mGy, DLP = ( 815.81 ) mGycm TECHNIQUE: Transaxial images were obtained from the dome of the diaphragm to the symphysis pubis with oral contrast, and without intravenous contrast. Sagittal and coronal images were reconstructed. Individualized dose optimization techniques were used for this CT. COMPARISON: 02/11/2019 FINDINGS: Evaluation of the abdominal viscera is limited in the absence of intravenous contrast. Evaluation is further limited by patient motion and by streak artifact due to the patient''s arms being at his sides. LOWER THORAX: There is patchy airspace opacity at the lung bases. There are trace bilateral pleural effusions. The patient is status post sternotomy. The heart is enlarged. The [place] coronary arteries are calcified. GALLBLADDER / BILE DUCTS: The patient is status post cholecystectomy. There is no intrahepatic biliary duct dilatation. The common bile duct is normal in caliber. There are no calcified ductal stones. LIVER: The liver demonstrates an unremarkable unenhanced appearance. SPLEEN: The spleen is normal in size. PANCREAS: The pancreas demonstrates an unremarkable unenhanced appearance. ADRENAL GLANDS: The adrenal glands are within normal limits. KIDNEYS / BLADDER: There are extensive vascular calcifications in the renal sg bilaterally. There are no renal or ureteral stones. There is no hydronephrosis. There are no focal renal lesions identified on this noncontrast exam. Urinary bladder is collapsed due to a Zhu catheter. STOMACH / BOWEL: There is a gastrostomy tube in place. There is no bowel obstruction or inflammation. There is a large amount of stool in the colon and in the rectal vault, consistent with constipation and fecal impaction. The appendix is visualized and appears normal. PERITONEUM / RETROPERITONEUM: There is no abdominal or pelvic free air, free fluid or fluid collection. There is no abnormal soft tissue mass identified. There is no abdominal or pelvic lymphadenopathy. VESSELS: There are extensive atherosclerotic calcifications in the aorta and its branches. The aorta is normal in caliber. The IVC is unremarkable. BONES: There is diffuse sclerosis of the visualized osseous structures. There is a moderate age-indeterminate compression deformity of the L2 vertebral body which is new when compared with 02/11/2019. SOFT TISSUES: The visualized soft tissues are within normal limits. CT/Abdomen/Pel W ORAL Cont Only IMPRESSION: Limited study. No bowel obstruction or inflammation. Constipation and fecal impaction. Normal appendix. No urinary calculi. No hydronephrosis. Patchy airspace opacities at the lung bases. Trace bilateral pleural effusions. Diffuse sclerosis of the visualized osseous structures which may be due to renal osteodystrophy, but metastatic disease cannot be excluded. Age indeterminate moderate compression deformity of L2 which is new when compared with 02/11/2019. No free air, free fluid or fluid collection. Extensive atherosclerotic disease. Electronically Signed: Ken Nieto MD at 12:38 EDT ,
--- NOTE | 2022-08-26 07:53 | EX.PCM.CON.S ---
Assessment & Plan Assessment/Plan (1) ABLA (acute blood loss anemia): PLAN: The patient was noted to have bright red blood from his rectum in the emergency room. His hemoglobin was 6.2 yesterday. He was given a unit of blood and it only came up to 6.7. He is being given another unit this morning. He also has new electrolyte abnormalities of hyponatremia and hyperkalemia. Both of these numbers were normal when he was admitted last week. Patient has metastatic parotid cancer. Patient also recently had a stroke. Patient is also on Eliquis for A-fib. Patient's last colonoscopy was 5 years ago and was normal per the patient's . As the patient is seeing bile in the PEG tube and had projectile vomiting I would like to start with ordering an oral contrast CT scan to ensure that there is no metastatic lesions causing bowel obstruction. As long as a CT scan of the abdomen pelvis is normal I will likely bowel prep tomorrow for a scope on Saturday to allow for more time for electrolyte correction and transfusion to an appropriate hemoglobin. Likely perform upper and lower endoscopy on Saturday. Jose Carlos Winters MD Pager: [facility] [address] [place] [address], [address] [place] [address] Office: HPI Consult Data Date of Consult: 08/26/22 HPI Narrative HPI Narrative: CLAY RUBIO, is a 62 M who presents for several reasons. The patient was just discharged last week after being treated for pneumonia and UTI. Patient has been home for about a week and the patient's reports that he came home and was participating in therapy and tolerating diet and then things changed a few days ago when he started becoming more lethargic and seem to be in pain. She says that yesterday he started having projectile vomiting before his tube feeds were even given and that he was started choking and was coughing for a good 20 minutes. Patient was brought in in the emergency room nurse noted blood in his stool. The blood was bright red. Patient's has not noticed any blood in his stool. She does say that when she gives him tube feeds she notices bile refluxing into the PEG tube. 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 Bacteremia Bone cancer Bradycardia Cataracts, both eyes Cerebral arteriosclerosis with history of previous cerebrovascular accident Charcot's joint, left ankle and foot Chronic diastolic (congestive) heart failure Chronic pain Diabetes mellitus, type II Diabetic retinopathy Diastolic dysfunction with acute on chronic heart failure Essential hypertension GERD (gastroesophageal reflux disease) Hammer toe of left foot HLD (hyperlipidemia) Hyponatremia Infection of left foot Iron deficiency anemia 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 MSSA bacteremia Nephrotic syndrome Neuropathy Non-smoker Normocytic anemia Obesity (BMI 30.0-34.9) Osteomyelitis PAD (peripheral artery disease) Postoperative atrial fibrillation (06/12/18) 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) Secondary pulmonary arterial hypertension Sinus bradycardia Syncope Type 2 diabetes mellitus Ulcer of left foot UTI (urinary tract infection) Home Medications aspirin 81 mg tablet,delayed release 81 mg PO DAILY heart health 09/09/18 [History Last Taken 06/13/22] nitroglycerin 0.4 mg sublingual tablet 0.4 mg sublingual Q5M PRN Cardiac/Chest Pain #25 tabs 10/17/18 [Rx Last Taken 08/08/19] atorvastatin 40 mg tablet 40 mg PO QHS cholesterol #90 tabs 01/18/21 [Rx Last Taken 06/13/22] sennosides 8.6 mg-docusate sodium 50 mg tablet (Senexon-S) 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 05/10/21 [History Last Taken 06/13/22] blood ketone glucose monitor #1 ea 06/06/21 [History Last Taken Unknown] lancets #100 ea 06/06/21 [History Last Taken Unknown] allopurinol 100 mg tablet 100 mg PO DAILY gout 09/06/21 [History Last Taken 06/13/22] gabapentin 100 mg capsule 200 mg PO TID NEUROPATHY 09/13/21 [History Last Taken 06/13/22] oxycodone 10 mg tablet 10 mg PO Q4H PRN Pain 09/13/21 [History Last Taken 06/14/22 06:00] pembrolizumab 25 mg/mL intravenous solution (Keytruda) 25 mg IV .UD CANCER 09/13/21 [History Last Taken 06/06/22] ferrous fumarate 324 mg (106 mg iron) tablet (Ferrocite) 324 mg PO BID supplement 04/16/22 [History Last Taken 06/13/22] hydralazine 50 mg tablet 50 mg PO TID 90 days #270 tabs 04/23/22 [Rx Last Taken 06/13/22] acetaminophen 500 mg tablet (Acetaminophen Extra Strength) 500 mg PO Q6H PRN Pain 06/14/22 [History Last Taken 06/13/22] ergocalciferol (vitamin D2) 1,250 mcg (50,000 unit) capsule 1,250 mcg PO SA SUPPLEMENT 06/14/22 [History Last Taken 06/09/22] acetaminophen 650 mg rectal suppository 650 mg OK Q4H PRN PRN Fever 08/10/22 [History Last Taken Unknown] baclofen 5 mg oral granules in packet 5 mg PO TID muscle spasm 08/10/22 [History Last Taken Unknown] bisacodyl 10 mg rectal suppository 10 mg OK DAILY PRN Constipation 08/10/22 [History Last Taken Unknown] carvedilol 25 mg tablet 25 mg PO BID BP 30 days #60 tabs 08/17/22 [Rx Last Taken Unknown] doxazosin 4 mg tablet 4 mg PO QHS BPH 30 days #30 tabs 08/17/22 [Rx Last Taken Unknown] furosemide 40 mg tablet 40 mg PO QHS water 30 days #30 tabs 08/17/22 [Rx Last Taken 06/13/22] lactose-reduced food with fiber 0.06 gram-1.5 kcal/mL oral liquid (Jevity 1.5 Minor) 250 ml G-tube 5X/DAY #0 mL 08/17/22 [Rx Last Taken Unknown] levofloxacin 500 mg tablet 500 mg PO DAILY@0600 2 days #2 tabs 08/17/22 [Rx Last Taken Unknown] lisinopril 20 mg tablet 40 mg PO DAILY bp 30 days #0 tabs 08/17/22 [Rx Last Taken 06/13/22] methadone 5 mg tablet 5 mg PO QHS PAIN, metastatic CA 5 days #5 tabs 08/17/22 [Rx Last Taken 06/13/22] tamsulosin 0.4 mg capsule 0.4 mg PO QHS prostate 30 days #30 caps 08/17/22 [Rx Last Taken 06/13/22] apixaban 2.5 mg tablet (Eliquis) 2.5 mg PO BID 30 days #60 tabs 08/19/22 [Rx Last Taken Unknown] acetaminophen 120 mg-codeine 12 mg/5 mL (5 mL) oral solution 5 ml PO Q6H PRN pain 3 days #500 mL 08/21/22 [Rx Last Taken Unknown] amlodipine 10 mg tablet 10 mg PO DAILY bp 08/26/22 [History Last Taken Unknown] lansoprazole 30 mg capsule,delayed release 30 mg PO DAILY 08/26/22 [History Last Taken Unknown] Allergy/AdvReac Type Severity Reaction Status Date / Time banana Allergy Intermediate Swelling Verified 08/16/22 17:48 Penicillins [PCN] Allergy Unknown Verified 06/29/22 15:08 morphine AdvReac Mild confusion Verified 06/29/22 15:08 Family History Mother Diabetes Parkinson disease Grandmother Cancer Surgical History Amputated toe of left foot (08/2018) H/O coronary artery bypass surgery (06/12/18) H/O eye surgery History of left heart catheterization (05/20/18) Hx of cholecystectomy S/P meniscectomy Social History household members: spouse Smoking Status: Never smoker alcohol intake: current alcohol intake frequency: a few times a week substance use type: does not use caffeine: No ROS Review of Systems ROS Unobtainable: due to mental status Eyes Eyes: Denies blurry vision Physical Exam Const no apparent distress HEENT normocephalic Resp normal respiratory effort Cardio Rate: regular rate GI soft to palpation, non-tender and non-distended Extremity normal to inspection Lab / Micro Data Result Diagrams: 08/26/22 06:45 08/26/22 06:45 Labs: Laboratory Results - last 24 hr 08/25/22 00:02: WBC 10.9, RBC 2.22 L, Hgb 6.2 L, Hct 20.4 L, MCV 91.9, MCH 27.9, MCHC 30.4 L, RDW Std Deviation 51.2 H, RDW Coeff of Dipti 15.2 H, Plt Count 199, MPV 11.2, Immature Gran % (Auto) 1.200 H, Neut % (Auto) 81.3 H, Lymph % (Auto) 3.9 L, [place] % (Auto) 12.6 H, Eos % (Auto) 0.8, Baso % (Auto) 0.2, Absolute Neuts (auto) 8.9 H, Absolute Lymphs (auto) 0.43 L, Nucleated RBC % 0, Differential Comment SCANNED 08/25/22 00:02: Sodium 129 L, Potassium 5.7 H, Chloride 97 L, Carbon Dioxide 24.0, Anion Gap 8, BUN 66 H, Creatinine 1.56 H, Estim Creat Clear Calc 51.15, Est GFR (MDRD) Af Amer 58 L, Est GFR (MDRD) Non-Af 48 L, BUN/Creatinine Ratio 42.3 H, Glucose 169 H, Calcium 7.8 L, Total Bilirubin 0.50, AST 32, ALT 39, Alkaline Phosphatase 198 H, Total Protein 6.7, Albumin 2.0 L, Globulin 4.7 H, Albumin/Globulin Ratio 0.4 L 08/25/22 23:18: Lactic Acid 1.9 08/25/22 23:18: Urine Color Yellow, Urine Clarity Clear, Urine pH 6.0, Ur Specific Vinson 1.010, Urine Protein 30 H, Urine Glucose (UA) Normal, Urine Ketones Negative, Urine Occult Blood 10 H, Urine Nitrite Negative, Urine Bilirubin Negative, Urine Urobilinogen Normal, Ur Leukocyte Esterase 25 H, Urine RBC 0-5 SEEN, Urine WBC 0 SEEN, Ur Squamous Epith Cells 0 SEEN, Urine Bacteria 2+, Urine Mucus 0 SEEN 08/26/22 00:02: Retic Count 1.97 H, Immature Retic Fraction 17.50 H, Retic Hgb Equivalent 25.3 L 08/26/22 00:02: Iron 18 L, TIBC 132 L, Iron Saturation 13.6 L, Ferritin 1203 H 08/26/22 00:23: Blood Type A POSITIVE, Antibody Screen NEGATIVE, Crossmatch See Detail 08/26/22 01:00: PT 20.0 H, INR 1.7, APTT 56.0 H 08/26/22 04:26: POC Glucose 132 H 08/26/22 06:45: Sodium 129 L, Potassium 5.5 H, Chloride 100, Carbon Dioxide 23.0, Anion Gap 6, BUN 63 H, Creatinine 1.43 H, Estim Creat Clear Calc 54.99, Est GFR (MDRD) Af Amer 64, Est GFR (MDRD) Non-Af 53 L, BUN/Creatinine Ratio 44.1 H, Glucose 128 H, Calcium 7.8 L 08/26/22 06:45: Hgb 6.4 L, Hct 20.3 L Micro: Microbiology 08/25/22 23:10 Nasal Secretion SARS-CoV-2 & FLU Antigen (Rapid) - Final Radiology Impression Chest X-Ray 08/25/22 22:25 IMPRESSION: Stable chest with the exception of a small linear band of atelectasis in the right lung base. Diffuse bone findings consistent with the patient''s known metastatic disease. Electronically Signed: Hannah Fan MD at 23:03 EDT ,
--- NOTE | 2022-08-26 08:51 | PCM.HOSP.N ---
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 #ABLA -hgb 6.2 on presentation with baseline around 8.4 and BRBPR in ED -has required 2u prbc at this time -IV PPI -Hold asa and eliquis -Surgery for ABLA eval -Endoscopy and colonoscopy on Saturday w/ bowel prep tomorrow -Hemoglobin 8.2 after 2 units, continue to monitor #n/v -CT w/ contrast ordered by surgery to assess for blockage -NPO #hyponatremia/hyperkalemia -Repeat BMP #Poss aspiration PNA -CXR R base infiltrate -Tmax at home of 100.4 -Pt has had sputum cx recently with multiple organisms -On levaquin and flagyl #RAFA on CKDII -Cr presentation was 1.56 w/ baseline of 1 -home lasix held #Poor functional baseline/hx cva w/ R side involvement and PEG tube -pt/ot #hx urinary retention w/ longoria w/ recent UTI on levquin -Levaquin continued -Longoria care #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
[2022-08-26] MEDS: levoFLOXacin IV 750 MG/150 ML BAG 100 MG IV (08:57)
[2022-08-26 12:01] LABS: Bedside Glucose 118 mg/dL (74-106)
[2022-08-26 12:33] LABS: Hematocrit 24.7 % (40-54); Hemoglobin 8.2 g/dL (13.0-16.5)
[2022-08-26] MEDS: Fleet Enema 1 ML RC (13:02)
[2022-08-26 13:04] LABS: Absolute Lymphocyte Count 0.35 X10^3/uL (0.83-4.51); Basophil# 0.04 X10^3/uL; Basophil% 0.5 % (0-1); Eosinophil# 0.19 X10^3/uL; Eosinophils% 2.5 % (0-5); Lymphocyte # 0.35 X10^3/ul (0.83-4.51); Lymphocyte % 4.6 % (19-41); Mean Corpuscular Hgb 28.7 pg (27.0-32.0); Mean Corpuscular Volume 89.8 fL (80-94); Mean Platelet Vol. 11.8 fl (6.2-12.0); Monocyte# 1.02 X10^3/uL; Monocyte% 13.3 % (0-10); NRBC Flagged by Analyzer 0 % (0-5); Neutrophil # 5.95 X10^3/uL (2.7-7.7); Neutrophil % 77.7 % (47-70); POSITIVE DIFFERENTIAL YES; Platelet Count 177 K/mm3 (150-450); RBC Distribution Width CV 14.6 % (11.6-14.6); RBC Distribution Width SD 47.5 fl (35.1-43.9); Red Blood Count 2.75 M/mm3 (4.6-6.2); White Blood Count 7.7 K/mm3 (4.4-11.0)
[2022-08-26 13:07] LABS: Differential Indicated SCAN CRITERIA MET
--- NOTE | 2022-08-26 13:08 | PN_ITS ---
Progress Note CT scan does not show any signs of obstruction. The patient has fecal impaction with constipation. I will order MiraLAX through G-tube and resume tube feeds if desired by hospitalist. I will also order Fleet enema. Jose Carlos Winters MD Pager: [facility] [address] [place] [address], [address] [place] [address] Office:
--- NOTE | 2022-08-26 13:08 | PCM.PN.BLA ---
Progress Note CT scan does not show any signs of obstruction. The patient has fecal impaction with constipation. I will order MiraLAX through G-tube and resume tube feeds if desired by hospitalist. I will also order Fleet enema. Jose Carlos Winters MD Pager: [facility] [address] [place] [address], [address] [place] [address] Office:
[2022-08-26 14:04] LABS: CPK Total, Creatine Kinase 159 U/L (39-308)
[2022-08-26 14:10] LABS: ALB/GLOB Ratio 0.4 RATIO (0.9-2.4); AST(SGOT) 35 U/L (15-37); Alanine Aminotransfer ALT/SGPT 39 U/L (16-61); Albumin, Serum 1.9 g/dL (3.2-5.0); Alkaline Phosphatase 207 U/L (45-117); Anion Gap 7 (5-15); BUN 57 mg/dL (7-18); Calcium,Total 7.9 mg/dL (8.5-10.1); Chloride 100 mmol/L (98-107); Creatinine, Serum 1.39 mg/dL (0.70-1.30); EST Glomerular Filtration Rate 55 mL/min (>60); Est Glom Filt Rate - Afr Amer 66 mL/min (>60); Estimated Creatinine Clearance 56.57 ml/min; Globulin 4.7 g/dL (2.2-4.2); Glucose 132 mg/dL (74-106); Potassium 5.1 mmol/L (3.5-5.1); Protein, Total 6.6 g/dL (6.4-8.2); Sodium Level 131 mmol/L (136-145)
[2022-08-26 14:13] LABS: Differential Comment SCANNED
[2022-08-26 14:39] LABS: Lactic Acid 0.7 mmol/L (0.4-1.9)
[2022-08-26] MEDS: Nystatin Powder 15gm Bottle 1 APPLIC TOPICAL ×2 (15:00→21:53)
[2022-08-26] MEDS: Polyethylene Glycol 3350 17 GM PACKET GT ×2 (15:00→21:54)
[2022-08-26] MEDS: Gabapentin 100 MG Capsule 200 MG GT (21:52)
[2022-08-26] MEDS: Baclofen 10 MG Tablet 5 MG GT (21:53)
[2022-08-26] MEDS: Carvedilol 12.5 MG Tablet GT (21:53)
[2022-08-26] MEDS: Senna/Docusate Sodium 1 Tablet 2 TABLET GT (21:53)
[2022-08-26] MEDS: Doxazosin 4 MG Tablet GT (21:54)
[2022-08-26] MEDS: Atorvastatin Calcium 40 MG Tablet GT (21:54)
[2022-08-26 22:45] LABS: Bedside Glucose 117 mg/dL (74-106)
[2022-08-27 03:18] VITALS: BMI 21.8
[2022-08-27 03:45] VITALS: BP 134/59; PULSE 66; RESP 18; TEMP 36.8; O2SAT 95
[2022-08-27 04:34] LABS: Absolute Lymphocyte Count 0.47 X10^3/uL (0.83-4.51); Absolute Neutrophil Count 5.9 X10^3/uL (2.0-7.7); Basophil# 0.04 X10^3/uL; Basophil% 0.5 % (0-1); Eosinophil# 0.13 X10^3/uL; Eosinophils% 1.7 % (0-5); Hematocrit 24.8 % (40-54); Hemoglobin 7.9 g/dL (13.0-16.5); Lymphocyte # 0.47 X10^3/ul (0.83-4.51); Lymphocyte % 6.3 % (19-41); Mean Corp Hgb Conc 31.9 g/dL (32-36); Mean Corpuscular Hgb 28.7 pg (27.0-32.0); Mean Corpuscular Volume 90.2 fL (80-94); Mean Platelet Vol. 11.7 fl (6.2-12.0); Monocyte% 10.8 % (0-10); NRBC Flagged by Analyzer 0 % (0-5); Neutrophil # 5.94 X10^3/uL (2.7-7.7); Neutrophil % 79.9 % (47-70); POSITIVE DIFFERENTIAL YES; Platelet Count 192 K/mm3 (150-450); RBC Distribution Width CV 14.8 % (11.6-14.6); RBC Distribution Width SD 48.9 fl (35.1-43.9); Red Blood Count 2.75 M/mm3 (4.6-6.2); White Blood Count 7.4 K/mm3 (4.4-11.0)
[2022-08-27 04:36] LABS: Differential Indicated SCAN CRITERIA MET
[2022-08-27 05:20] LABS: ALB/GLOB Ratio 0.4 RATIO (0.9-2.4); AST(SGOT) 33 U/L (15-37); Alanine Aminotransfer ALT/SGPT 33 U/L (16-61); Albumin, Serum 1.9 g/dL (3.2-5.0); Alkaline Phosphatase 202 U/L (45-117); Anion Gap 8 (5-15); BUN 45 mg/dL (7-18); BUN/Creat Ratio 38.1 RATIO (10-20); Calcium,Total 8.2 mg/dL (8.5-10.1); Chloride 104 mmol/L (98-107); Creatinine, Serum 1.18 mg/dL (0.70-1.30); EST Glomerular Filtration Rate 66 mL/min (>60); Est Glom Filt Rate - Afr Amer 80 mL/min (>60); Estimated Creatinine Clearance 65.39 ml/min; Globulin 4.4 g/dL (2.2-4.2); Glucose 104 mg/dL (74-106); Potassium 4.6 mmol/L (3.5-5.1); Protein, Total 6.3 g/dL (6.4-8.2); Sodium Level 135 mmol/L (136-145)
[2022-08-27 05:25] LABS: Anisocytosis 1+
[2022-08-27] MEDS: Baclofen 10 MG Tablet 5 MG GT ×3 (05:39→21:26)
[2022-08-27] MEDS: Gabapentin 100 MG Capsule 200 MG GT ×3 (05:39→21:26)
[2022-08-27] MEDS: Nystatin Powder 15gm Bottle 1 APPLIC TOPICAL ×3 (05:40→21:27)
[2022-08-27] MEDS: metroNIDAZOLE 500 MG/100 ML BAG 100 MG IV ×3 (05:40→21:28)
[2022-08-27] MEDS: Jevity 1.5. 1,000 ML Bottle 250 ML GT ×3 (05:49→14:44)
[2022-08-27] MEDS: oxyCODONE 5 MG Tablet 10 MG GT ×2 (06:09→21:26)
[2022-08-27 06:55] LABS: Bedside Glucose 85 mg/dL (74-106)
[2022-08-27 07:34] VITALS: O2SAT 96
--- NOTE | 2022-08-27 07:48 | PN.HOSP_ITS ---
Reason for Visit Reason for Visit: Diagnoses Secondary malignant neoplasm of unspecified site (08/26/22) Acute posthemorrhagic anemia (08/26/22) Type 2 diabetes mellitus with other specified complication (08/26/22) Gastrointestinal hemorrhage, unspecified (08/26/22) Unspecified foreign body in respiratory tract, part unspecified causing other injury, initial encounter (08/26/22) Subjective Subjective No new events overnight. Has lost 30 pounds since June, when he had his CVA. Objective Data Objective Data Vital Signs: Vital Signs Temp Pulse Resp BP Pulse Ox O2 Del Method O2 Flow Rate 36.8 C 66 18 134/59 H 95 Nasal Cannula 2 08/27/22 03:45 08/27/22 03:45 08/27/22 03:45 08/27/22 03:45 08/27/22 03:45 08/27/22 03:45 08/27/22 03:45 Oxygen Flow Rate (L/min) 2 Oxygen Delivery Method Nasal Cannula Weight: 73.1 kg Body Mass Index (BMI) 21.8 Intake & Output: Intake and Output for Last 24 Hours 08/25/22 08/26/22 08/27/22 23:59 23:59 23:59 Intake Total 1155.00 / 1155.00 91.67 / 91.67 Output Total 2650 / 4050 2300 / 2300 Balance -1495.00 / -2895.00 -2208.33 / -2208.33 Lab / Micro Data Result Diagrams: 08/27/22 03:50 08/27/22 03:50 Labs: Laboratory Results - last 24 hr 08/26/22 00:23: Blood Type A POSITIVE, Antibody Screen NEGATIVE, Crossmatch See Detail 08/26/22 11:35: POC Glucose 118 H 08/26/22 12:00: WBC 7.7, RBC 2.75 L, Hgb 8.2 L, Hct 24.7 L, MCV 89.8, MCH 28.7, MCHC 32.0 D, RDW Std Deviation 47.5 H, RDW Coeff of Dipti 14.6, Plt Count 177, MPV 11.8, Immature Gran % (Auto) 1.400 H, Neut % (Auto) 77.7 H, Lymph % (Auto) 4.6 L, Williams % (Auto) 13.3 H, Eos % (Auto) 2.5, Baso % (Auto) 0.5, Absolute Neuts (auto) 6.0, Absolute Lymphs (auto) 0.35 L, Nucleated RBC % 0, Differential Comment SCANNED 08/26/22 12:00: WBC Cancelled, Corrected WBC Cancelled, RBC Cancelled, Hgb Cancelled, Hct Cancelled, MCV Cancelled, MCH Cancelled, MCHC Cancelled, RDW Std Deviation Cancelled, RDW Coeff of Dipti Cancelled, Plt Count Cancelled, MPV Cancelled, Immature Gran % (Auto) Cancelled, Neut % (Auto) Cancelled, Lymph % (Auto) Cancelled, Williams % (Auto) Cancelled, Eos % (Auto) Cancelled, Baso % (Auto) Cancelled, Absolute Neuts (auto) Cancelled, Absolute Lymphs (auto) Cancelled, Total Counted Cancelled, Neutrophils % (Manual) Cancelled, Band Neutrophils % Cancelled, Lymphocytes % (Manual) Cancelled, Monocytes % (Manual) Cancelled, Eosinophils % (Manual) Cancelled, Basophils % (Manual) Cancelled, Metamyelocytes % Cancelled, Myelocytes % Cancelled, Promyelocytes % Cancelled, Blast Cells % Ca ncelled, Plasma Cell % (Manual) Cancelled, Other Cells % Cancelled, Nucleated RBC % Cancelled, Nucleated RBCs/100 WBC Cancelled, Differential Comment Cancelled, Diff Path Review Cancelled, Hypersegmented Neuts Cancelled, Atypical Lymphocytes Cancelled, Reactive Lymphocytes Cancelled, Smudge Cells Cancelled, Toxic Granulation Cancelled, Toxic Vacuolation Cancelled, Dohle Bodies Cancelled, Efrem Rods Cancelled, Platelet Estimate Cancelled, Plt Morphology Comment Cancelled, RBC Morphology Cancelled, Polychromasia Cancelled, Hypochromasia Cancelled, Poikilocytosis Cancelled, Basophilic Stippling Ca ncelled, Anisocytosis Cancelled, Microcytosis Cancelled, Macrocytosis Cancelled, Spherocytes Cancelled, Sickle Cells Cancelled, Target Cells Cancelled, Tear Drop Cells Cancelled, Ovalocytes Cancelled, Stomatocytes Cancelled, Dillard-Atwood Bodies Cancelled, Hatley Cells Cancelled, Bite Cells Cancelled, Crenated Cell Cancelled, Acanthocytes (Spur) Cancelled, Rouleaux Cancelled, Schistocytes Cancelled 08/26/22 13:35: Sodium 131 L, Potassium 5.1, Chloride 100, Carbon Dioxide 24.0, Anion Gap 7, BUN 57 H, Creatinine 1.39 H, Estim Creat Clear Calc 56.57, Est GFR (MDRD) Af Amer 66, Est GFR (MDRD) Non-Af 55 L, BUN/Creatinine Ratio 41.0 H, Glucose 132 H, Calcium 7.9 L, Total Bilirubin 1.40 H, AST 35, ALT 39, Alkaline Phosphatase 207 H, Total Protein 6.6, Albumin 1.9 L, Globulin 4.7 H, Albumin/Globulin Ratio 0.4 L 08/26/22 13:35: Total Creatine Kinase 159 08/26/22 14:05: Lactic Acid 0.7 08/26/22 22:10: POC Glucose 117 H 08/27/22 03:50: WBC 7.4, RBC 2.75 L, Hgb 7.9 L, Hct 24.8 L, MCV 90.2, MCH 28.7, MCHC 31.9 L, RDW Std Deviation 48.9 H, RDW Coeff of Dipti 14.8 H, Plt Count 192, MPV 11.7, Immature Gran % (Auto) 0.800, Neut % (Auto) 79.9 H, Lymph % (Auto) 6.3 L, Williams % (Auto) 10.8 H, Eos % (Auto) 1.7, Baso % (Auto) 0.5, Absolute Neuts (auto) 5.9, Absolute Lymphs (auto) 0.47 L, Nucleated RBC % 0, Anisocytosis 1+ 08/27/22 03:50: Sodium 135 L, Potassium 4.6, Chloride 104, Carbon Dioxide 23.0, Anion Gap 8, BUN 45 H, Creatinine 1.18, Estim Creat Clear Calc 65.39, Est GFR (MDRD) Af Amer 80, Est GFR (MDRD) Non-Af 66, BUN/Creatinine Ratio 38.1 H, Glucose 104, Calcium 8.2 L, Total Bilirubin 1.00, AST 33, ALT 33, Alkaline Phosphatase 202 H, Total Protein 6.3 L, Albumin 1.9 L, Globulin 4.4 H, Albumin/Globulin Ratio 0.4 L 08/27/22 05:38: POC Glucose 85 Micro: Microbiology 08/25/22 23:10 Nasal Secretion SARS-CoV-2 & FLU Antigen (Rapid) - Final Radiography Diagnostic Testing: Radiology Impression Abdomen CT 08/26/22 07:52 IMPRESSION: Limited study. No bowel obstruction or inflammation. Constipation and fecal impaction. Normal appendix. No urinary calculi. No hydronephrosis. Patchy airspace opacities at the lung bases. Trace bilateral pleural effusions. Diffuse sclerosis of the visualized osseous structures which may be due to renal osteodystrophy, but metastatic disease cannot be excluded. Age indeterminate moderate compression deformity of L2 which is new when compared with 02/11/2019. No free air, free fluid or fluid collection. Extensive atherosclerotic disease. Electronically Signed: Ken Nieto MD at 12:38 EDT , Physical Exam Const alert and no apparent distress HEENT head/scalp atraumatic and moist oral mucous membranes Resp normal respiratory effort, no retractions, no use of accessory muscles and clear to auscultation bilaterally Cardio regular rate, regular rhythm, S1 normal heart sound and S2 normal heart sound GI normal to inspection, nondistended, normoactive bowel sounds and soft to palpation Assessment & Plan Assessment/Plan (1) ABLA (acute blood loss anemia): PLAN: hgb 6.2 on presentation with baseline around 8.4 and BRBPR in ED has required 2u prbc at this time IV PPI Hold asa and eliquis Surgery for Endoscopy and colonoscopy on Saturday w/ bowel prep tomorrow Hemoglobin 8.2 after 2 units, continue to monitor CT showed no obstruction. (2) Aspiration into airway: PLAN: Possible aspiration pneumonia Patient with radiologist at right base. Temperature of 99.8 F to 100.4F at home. A Tmax of 99.8F on presentation. Impression of chest x-ray by radiology: Stable chest with the exception of a small linear band of atelectasis in the right lung base. Diffuse bone findings consistent with the patient''s known metastatic disease. Chest x-ray was independently interpreted and I agree with radiology interpretation. Review of sputum microbiology shows that patient had ESBL Klebsiella pneumoniae; MRSA and haemophilus influenza on sputum culture. Per family patient has a couple of doses more of Levaquin left. We will hold p.o. Levaquin. IV Levaquin ordered. Will add Flagyl IV to her regimen. (3) Acute lower gastrointestinal bleeding: PLAN: Endoscopy for 08/28 (4) Hyponatremia: PLAN: Na 129 on admission. Now 135 Monitor (5) Hyperkalemia: PLAN: 5.7 on admission resolved monitor (6) RAFA (acute kidney injury): PLAN: resolved RAFA on CKD stage II Creatinine on presentation was 1.56. Baseline creatinine is less than 1. BUN is 66. BUN over creatinine is 42.3. Likely prerenal. Hold home Lasix. Blood transfusion as above. Trend BMP. Avoid nephrotoxic's (7) UTI (urinary tract infection): PLAN: Urinary retention/UTI Urine culture on 08/11/2022 was positive for ESBL E. coli. Levaquin p.o. changed to IV and continued. PLAN: Plan Chronic conditions: * Diabetic mellitusNot on home insulin. Blood glucose on presentation was stable. Accu-Chek [id number] ordered. * Stage III pressure ulcer on Lower to middle spine; and stage II pressure ulcer on coccyx Avelyn ordered. Wound care consult. * Chronic heart failure with preserved ejection fractionReview of records with echocardiogram 1 04/16/2022 showed ejection fraction of 55% with diastolic dysfunction indeterminate and mild concentric left ventricular hypertrophy. Home Lasix on hold secondary to RAFA . Cautious use of fluids. * Atrial fibrillation.StableHome Eliquis held secondary to hematochezia. DVT prophylaxis: SCDs ordered. Charges/Coding Visit Charges Inpatient E&M: 83995 Subs Hosp L2
--- NOTE | 2022-08-27 08:22 | PCM.PN.SRG ---
Subjective Subjective Patient had a large bowel movement after enema yesterday Objective Data Objective Data Vital Signs: Vital Signs Temp Pulse Resp BP Pulse Ox O2 Del Method O2 Flow Rate 98.3 F 66 18 134/59 H 95 Nasal Cannula 2 08/27/22 03:45 08/27/22 03:45 08/27/22 03:45 08/27/22 03:45 08/27/22 03:45 08/27/22 03:45 08/27/22 03:45 Oxygen Flow Rate (L/min) 2 Oxygen Delivery Method Nasal Cannula Weight: 161 lb 2.526 oz Body Mass Index (BMI) 21.8 Intake & Output: Intake and Output for Last 24 Hours 08/25/22 08/26/22 08/27/22 23:59 23:59 23:59 Intake Total 1155.00 / 1155.00 91.67 / 91.67 Output Total 2650 / 4050 2300 / 2300 Balance -1495.00 / -2895.00 -2208.33 / -2208.33 Lab / Micro Data Result Diagrams: 08/27/22 03:50 08/27/22 03:50 Labs: Laboratory Results - last 24 hr 08/26/22 00:23: Blood Type A POSITIVE, Antibody Screen NEGATIVE, Crossmatch See Detail 08/26/22 11:35: POC Glucose 118 H 08/26/22 12:00: WBC 7.7, RBC 2.75 L, Hgb 8.2 L, Hct 24.7 L, MCV 89.8, MCH 28.7, MCHC 32.0 D, RDW Std Deviation 47.5 H, RDW Coeff of Dipti 14.6, Plt Count 177, MPV 11.8, Immature Gran % (Auto) 1.400 H, Neut % (Auto) 77.7 H, Lymph % (Auto) 4.6 L, [place] % (Auto) 13.3 H, Eos % (Auto) 2.5, Baso % (Auto) 0.5, Absolute Neuts (auto) 6.0, Absolute Lymphs (auto) 0.35 L, Nucleated RBC % 0, Differential Comment SCANNED 08/26/22 12:00: WBC Cancelled, Corrected WBC Cancelled, RBC Cancelled, Hgb Cancelled, Hct Cancelled, MCV Cancelled, MCH Cancelled, MCHC Cancelled, RDW Std Deviation Cancelled, RDW Coeff of Dipti Cancelled, Plt Count Cancelled, MPV Cancelled, Immature Gran % (Auto) Cancelled, Neut % (Auto) Cancelled, Lymph % (Auto) Cancelled, [place] % (Auto) Cancelled, Eos % (Auto) Cancelled, Baso % (Auto) Cancelled, Absolute Neuts (auto) Cancelled, Absolute Lymphs (auto) Cancelled, Total Counted Cancelled, Neutrophils % (Manual) Cancelled, Band Neutrophils % Cancelled, Lymphocytes % (Manual) Cancelled, Monocytes % (Manual) Cancelled, Eosinophils % (Manual) Cancelled, Basophils % (Manual) Cancelled, Metamyelocytes % Cancelled, Myelocytes % Cancelled, Promyelocytes % Cancelled, Blast Cells % Cancelled, Plasma Cell % (Manual) Cancelled, Other Cells % Cancelled, Nucleated RBC % Cancelled, Nucleated RBCs/100 WBC Cancelled, Differential Comment Cancelled, Diff Path Review Cancelled, Hypersegmented Neuts Cancelled, Atypical Lymphocytes Cancelled, Reactive Lymphocytes Cancelled, Smudge Cells Cancelled, Toxic Granulation Cancelled, Toxic Vacuolation Cancelled, Dohle Bodies Cancelled, Efrem Rods Cancelled, Platelet Estimate Cancelled, Plt Morphology Comment Cancelled, RBC Morphology Cancelled, Polychromasia Cancelled, Hypochromasia Cancelled, Poikilocytosis Cancelled, Basophilic Stippling Cancelled, Anisocytosis Cancelled, Microcytosis Cancelled, Macrocytosis Cancelled, Spherocytes Cancelled, Sickle Cells Cancelled, Target Cells Cancelled, Tear Drop Cells Cancelled, Ovalocytes Cancelled, Stomatocytes Cancelled, [place] Bodies Cancelled, Gene Cells Cancelled, Bite Cells Cancelled, Crenated Cell Cancelled, Acanthocytes (Spur) Cancelled, Rouleaux Cancelled, Schistocytes Cancelled 08/26/22 13:35: Sodium 131 L, Potassium 5.1, Chloride 100, Carbon Dioxide 24.0, Anion Gap 7, BUN 57 H, Creatinine 1.39 H, Estim Creat Clear Calc 56.57, Est GFR (MDRD) Af Amer 66, Est GFR (MDRD) Non-Af 55 L, BUN/Creatinine Ratio 41.0 H, Glucose 132 H, Calcium 7.9 L, Total Bilirubin 1.40 H, AST 35, ALT 39, Alkaline Phosphatase 207 H, Total Protein 6.6, Albumin 1.9 L, Globulin 4.7 H, Albumin/Globulin Ratio 0.4 L 08/26/22 13:35: Total Creatine Kinase 159 08/26/22 14:05: Lactic Acid 0.7 08/26/22 22:10: POC Glucose 117 H 08/27/22 03:50: WBC 7.4, RBC 2.75 L, Hgb 7.9 L, Hct 24.8 L, MCV 90.2, MCH 28.7, MCHC 31.9 L, RDW Std Deviation 48.9 H, RDW Coeff of Dipti 14.8 H, Plt Count 192, MPV 11.7, Immature Gran % (Auto) 0.800, Neut % (Auto) 79.9 H, Lymph % (Auto) 6.3 L, [place] % (Auto) 10.8 H, Eos % (Auto) 1.7, Baso % (Auto) 0.5, Absolute Neuts (auto) 5.9, Absolute Lymphs (auto) 0.47 L, Nucleated RBC % 0, Anisocytosis 1+ 08/27/22 03:50: Sodium 135 L, Potassium 4.6, Chloride 104, Carbon Dioxide 23.0, Anion Gap 8, BUN 45 H, Creatinine 1.18, Estim Creat Clear Calc 65.39, Est GFR (MDRD) Af Amer 80, Est GFR (MDRD) Non-Af 66, BUN/Creatinine Ratio 38.1 H, Glucose 104, Calcium 8.2 L, Total Bilirubin 1.00, AST 33, ALT 33, Alkaline Phosphatase 202 H, Total Protein 6.3 L, Albumin 1.9 L, Globulin 4.4 H, Albumin/Globulin Ratio 0.4 L 08/27/22 05:38: POC Glucose 85 Micro: Microbiology 08/25/22 23:10 Nasal Secretion SARS-CoV-2 & FLU Antigen (Rapid) - Final Radiography Diagnostic Testing: Radiology Impression Abdomen CT 08/26/22 07:52 IMPRESSION: Limited study. No bowel obstruction or inflammation. Constipation and fecal impaction. Normal appendix. No urinary calculi. No hydronephrosis. Patchy airspace opacities at the lung bases. Trace bilateral pleural effusions. Diffuse sclerosis of the visualized osseous structures which may be due to renal osteodystrophy, but metastatic disease cannot be excluded. Age indeterminate moderate compression deformity of L2 which is new when compared with 02/11/2019. No free air, free fluid or fluid collection. Extensive atherosclerotic disease. Electronically Signed: Ken Nieto MD at 12:38 EDT , Physical Exam Const no apparent distress Resp normal respiratory effort GI soft to palpation and non-tender Assessment & Plan Assessment/Plan (1) ABLA (acute blood loss anemia): PLAN: Patient had a very large bowel movement after enema yesterday. It did include some blood clots. I will order bowel prep today and plan for EGD and colonoscopy tomorrow as the patient's sodium and potassium are better. I explained endoscopy in detail to the patient. I explained the risks including but not limited to stroke or heart attack with anesthesia, perforation of the GI tract, bleeding, infection. I explained that any of these could necessitate further emergency surgery. The patient understands and all questions were answered sufficiently. The patient wishes to proceed with procedure. Jose Carlos Winters MD Pager: [facility] [address] [place] [address], [address] [place] [address] Office:
[2022-08-27 09:28] LABS: Vitamin B12 531 pg/mL (211-911)
[2022-08-27 10:55] VITALS: O2SAT 97
[2022-08-27 10:56] VITALS: BP 142/72; PULSE 69; RESP 18; TEMP 37.1; O2SAT 97
[2022-08-27] MEDS: Bisacodyl 5 MG Tablet 20 MG PO (11:03)
[2022-08-27] MEDS: Polyethylene Glycol 3350 17 GM PACKET GT ×2 (11:03→21:25)
[2022-08-27] MEDS: Carvedilol 12.5 MG Tablet GT ×2 (11:04→21:25)
[2022-08-27] MEDS: Allopurinol 100 MG Tablet GT (11:04)
[2022-08-27] MEDS: Polyethylene Glycol 3350 BOWEL PREP PO ×2 (11:04→17:30)
[2022-08-27] MEDS: levoFLOXacin IV 750 MG/150 ML BAG 100 MG IV (11:25)
--- NOTE | 2022-08-27 11:30 | WOUNDNOTE ---
wound photo: right posterior thigh/hip
--- NOTE | 2022-08-27 11:31 | WOUNDNOTE ---
wound photo: sacrum
--- NOTE | 2022-08-27 11:32 | WOUNDNOTE ---
wound photo: mid back
--- NOTE | 2022-08-27 11:33 | WOUNDNOTE ---
wound photo: right lateral foot
[2022-08-27 12:16] LABS: Bedside Glucose 136 mg/dL (74-106)
--- NOTE | 2022-08-27 13:53 | CASEMGMT ---
Discharge Planning Referral for resumption of services sent to [facility] via [facility]. Priscila Gee
--- NOTE | 2022-08-27 15:35 | CASEMGMT ---
LLOYD GAO chart review: patient was admitted 08/11-08/17/22 for aspiration pneumonia. Patient was discharged to home with [facility] and support of . Patient returned to [facility] ED on 08/25/22 for choking episode was going to discharge to home but was noted to have GI Bleed in ED. Patient was admitted with hgb on 6.2 and has received 3 units of PRBC. Patient is planned to have scopes completed on Saturday. Patient is confused, CM to follow up with with discharge plan. Anticipate discharge to home with resumption of HHC. CM will continue to follow this patient and plan for a safe discharge.
[2022-08-27 16:40] VITALS: BP 133/72; PULSE 70; RESP 16; TEMP 37.7; O2SAT 97
[2022-08-27 18:41] LABS: Bedside Glucose 129 mg/dL (74-106)
[2022-08-27 20:01] VITALS: BP 149/73; PULSE 71; RESP 18; TEMP 37.6; O2SAT 95
[2022-08-27] MEDS: Doxazosin 4 MG Tablet GT (21:25)
[2022-08-27] MEDS: Atorvastatin Calcium 40 MG Tablet GT (21:25)
[2022-08-27] MEDS: Senna/Docusate Sodium 1 Tablet 2 TABLET GT (21:27)
[2022-08-28] VITALS (12 sets, daily range): BP systolic 136–169; BP diastolic 67–97; PULSE 63–83; RESP 15–18; TEMP 36.6–37.9; O2SAT 90–98; BMI 22.0
[2022-08-28 00:26] LABS: Bedside Glucose 123 mg/dL (74-106)
[2022-08-28] MEDS: Menthol/Lanolin/Calamine/Znox 113 GM Tube 1 APPLIC TOPICAL ×4 (00:53→21:42)
[2022-08-28] MEDS: Nystatin Powder 15gm Bottle 1 APPLIC TOPICAL ×3 (05:08→22:25)
[2022-08-28] MEDS: metroNIDAZOLE 500 MG/100 ML BAG 100 MG IV ×2 (05:08→21:43)
--- NOTE | 2022-08-28 05:55 | EKG12_ITS ---
Test Reason : AM EKG Blood Pressure : / mmHG Vent. Rate : 069 BPM Atrial Rate : 069 BPM P-R Int : 186 ms QRS Dur : 082 ms QT Int : 432 ms P-R-T Axes : 070 003 011 degrees QTc Int : 462 ms Normal sinus rhythm Normal ECG When compared with ECG of 11-AUG-2022 01:12, No significant change was found Confirmed by IMANI GILLILAND, RADHA ([id number]), senior editor GALINDO BECKFORD ([id number]) on 08/29/2022 8:40:09 AM Referred By: MIKAYLA Confirmed By:RADHA DIALLO MD
[2022-08-28 06:45] LABS: Bedside Glucose 108 mg/dL (74-106)
[2022-08-28 06:53] LABS: Absolute Lymphocyte Count 0.44 X10^3/uL (0.83-4.51); Absolute Neutrophil Count 6.7 X10^3/uL (2.0-7.7); Basophil# 0.03 X10^3/uL; Basophil% 0.4 % (0-1); Eosinophil# 0.08 X10^3/uL; Hematocrit 24.6 % (40-54); Hemoglobin 7.9 g/dL (13.0-16.5); Lymphocyte # 0.44 X10^3/ul (0.83-4.51); Lymphocyte % 5.3 % (19-41); Mean Corp Hgb Conc 32.1 g/dL (32-36); Mean Corpuscular Hgb 28.8 pg (27.0-32.0); Mean Corpuscular Volume 89.8 fL (80-94); Mean Platelet Vol. 10.8 fl (6.2-12.0); Monocyte% 10.9 % (0-10); NRBC Flagged by Analyzer 0 % (0-5); Neutrophil # 6.74 X10^3/uL (2.7-7.7); Neutrophil % 81.4 % (47-70); POSITIVE DIFFERENTIAL YES; Platelet Count 203 K/mm3 (150-450); RBC Distribution Width CV 14.7 % (11.6-14.6); RBC Distribution Width SD 48.1 fl (35.1-43.9); Red Blood Count 2.74 M/mm3 (4.6-6.2); White Blood Count 8.3 K/mm3 (4.4-11.0)
[2022-08-28 07:11] LABS: International Normalized Ratio 1.5; Prothrombin Time (Protime)PT. 17.7 SECONDS (11.7-14.9)
--- NOTE | 2022-08-28 07:16 | PN.SURG_ITS ---
Subjective Subjective Patient is having low-grade fevers this morning. He is also having coughing. Objective Data Objective Data Vital Signs: Vital Signs Temp Pulse Resp BP Pulse Ox O2 Del Method O2 Flow Rate 100.2 F H 71 18 158/67 H 90 Room Air 2 08/28/22 06:38 08/28/22 06:38 08/28/22 06:38 08/28/22 06:38 08/28/22 07:01 08/28/22 07:01 08/27/22 14:45 Oxygen Flow Rate (L/min) 2 Oxygen Delivery Method Room Air Weight: 162 lb 7.691 oz Body Mass Index (BMI) 22.0 Intake & Output: Intake and Output for Last 24 Hours 08/26/22 08/27/22 08/28/22 23:59 23:59 23:59 Intake Total 1155.00 / 1155.00 2801.67 / 2801.67 100 / 100 Output Total 2650 / 4050 3900 / 3900 1000 / 1000 Balance -1495.00 / -2895.00 -1098.33 / -1098.33 -900 / -900 Lab / Micro Data Result Diagrams: 08/27/22 03:50 08/27/22 03:50 Labs: Laboratory Results - last 24 hr 08/26/22 01:00: Vitamin B12 531 08/27/22 11:40: POC Glucose 136 H 08/27/22 18:22: POC Glucose 129 H 08/28/22 00:06: POC Glucose 123 H 08/28/22 05:22: PT 17.7 H, INR 1.5 08/28/22 06:00: POC Glucose 108 H Micro: Microbiology 08/25/22 23:10 Blood Culture (Wb) - Left Hand Blood Culture - Preliminary No growth in 48 hours. 08/25/22 23:30 Blood Culture (Wb) - Left Forearm Blood Culture - Preliminary No growth in 48 hours. 08/25/22 23:10 Nasal Secretion SARS-CoV-2 & FLU Antigen (Rapid) - Final Physical Exam Const no apparent distress Cardio regular rate and regular rhythm GI soft to palpation and non-tender Assessment & Plan Assessment/Plan (1) ABLA (acute blood loss anemia): PLAN: Patient is having coughing and a low-grade fever. He is on Levaquin for aspiration pneumonia. Patient had bowel prep overnight. Plan on EGD and co lonoscopy this afternoon. Jose Carlos Winters MD Pager: [facility] [address] [place] [address] [address] [place] [address] Office:
[2022-08-28 07:19] LABS: Differential Indicated SCAN CRITERIA MET
[2022-08-28 07:33] LABS: ALB/GLOB Ratio 0.4 RATIO (0.9-2.4); AST(SGOT) 28 U/L (15-37); Alanine Aminotransfer ALT/SGPT 30 U/L (16-61); Albumin, Serum 1.8 g/dL (3.2-5.0); Alkaline Phosphatase 196 U/L (45-117); Anion Gap 9 (5-15); BUN 30 mg/dL (7-18); BUN/Creat Ratio 33.1 RATIO (10-20); Calcium,Total 7.9 mg/dL (8.5-10.1); Chloride 102 mmol/L (98-107); EST Glomerular Filtration Rate 90 mL/min (>60); Est Glom Filt Rate - Afr Amer 109 mL/min (>60); Estimated Creatinine Clearance 86.44 ml/min; Globulin 4.5 g/dL (2.2-4.2); Glucose 110 mg/dL (74-106); Potassium 3.8 mmol/L (3.5-5.1); Protein, Total 6.3 g/dL (6.4-8.2); Sodium Level 132 mmol/L (136-145)
--- NOTE | 2022-08-28 07:56 | PN.HOSP_ITS ---
Reason for Visit Reason for Visit: Diagnoses Secondary malignant neoplasm of unspecified site (08/26/22) Acute posthemorrhagic anemia (08/26/22) Type 2 diabetes mellitus with other specified complication (08/26/22) Hypo-osmolality and hyponatremia (08/26/22) Hyperkalemia (08/26/22) Gastrointestinal hemorrhage, unspecified (08/26/22) Acute kidney failure, unspecified (08/26/22) Urinary tract infection, site not specified (08/26/22) Unspecified foreign body in respiratory tract, part unspecified causing other injury, initial encounter (08/26/22) Subjective Subjective No new events. Objective Data Objective Data Vital Signs: Vital Signs Temp Pulse Resp BP Pulse Ox O2 Del Method O2 Flow Rate 37.9 C H 71 18 158/67 H 90 Room Air 2 08/28/22 06:38 08/28/22 06:38 08/28/22 06:38 08/28/22 06:38 08/28/22 07:01 08/28/22 07:01 08/27/22 14:45 Oxygen Flow Rate (L/min) 2 Oxygen Delivery Method Room Air Weight: 73.7 kg Body Mass Index (BMI) 22.0 Intake & Output: Intake and Output for Last 24 Hours 08/26/22 08/27/22 08/28/22 23:59 23:59 23:59 Intake Total 1155.00 / 1155.00 2801.67 / 2801.67 100 / 100 Output Total 2650 / 4050 3900 / 3900 1000 / 1000 Balance -1495.00 / -2895.00 -1098.33 / -1098.33 -900 / -900 Lab / Micro Data Result Diagrams: 08/28/22 05:22 08/28/22 05:22 Labs: Laboratory Results - last 24 hr 08/26/22 01:00: Vitamin B12 531 08/27/22 11:40: POC Glucose 136 H 08/27/22 18:22: POC Glucose 129 H 08/28/22 00:06: POC Glucose 123 H 08/28/22 05:22: WBC 8.3, RBC 2.74 L, Hgb 7.9 L, Hct 24.6 L, MCV 89.8, MCH 28.8, MCHC 32.1, RDW Std Deviation 48.1 H, RDW Coeff of Dipti 14.7 H, Plt Count 203, MPV 10.8, Immature Gran % (Auto) 1.000 H, Neut % (Auto) 81.4 H, Lymph % (Auto) 5.3 L , [place] % (Auto) 10.9 H, Eos % (Auto) 1.0, Baso % (Auto) 0.4, Absolute Neuts (auto) 6.7, Absolute Lymphs (auto) 0.44 L, Nucleated RBC % 0 08/28/22 05:22: Sodium 132 L, Potassium 3.8, Chloride 102, Carbon Dioxide 21.0, Anion Gap 9, BUN 30 H, Creatinine 0.90, Estim Creat Clear Calc 86.44, Est GFR (MDRD) Af Amer 109, Est GFR (MDRD) Non-Af 90, BUN/Creatinine Ratio 33.1 H, Glucose 110 H, Calcium 7.9 L, Total Bilirubin 0.80, AST 28, ALT 30, Alkaline Phosphatase 196 H, Total Protein 6.3 L, Albumin 1.8 L, Globulin 4.5 H, Albumin/Globulin Ratio 0.4 L 08/28/22 05:22: PT 17.7 H, INR 1.5 08/28/22 06:00: POC Glucose 108 H Micro: Microbiology 08/25/22 23:10 Blood Culture (Wb) - Left Hand Blood Culture - Preliminary No growth in 48 hours. 08/25/22 23:30 Blood Culture (Wb) - Left Forearm Blood Culture - Preliminary No growth in 48 hours. 08/25/22 23:10 Nasal Secretion SARS-CoV-2 & FLU Antigen (Rapid) - Final Physical Exam Const no apparent distress Constitutional Narrative: sleeping. awakes slightly, but then dozes off shortly afterwards. HEENT head/scalp atraumatic and moist oral mucous membranes Resp normal respiratory effort, no retractions, no use of accessory muscles and clear to auscultation bilaterally Cardio regular rate, regular rhythm, S1 normal heart sound and S2 normal heart sound GI normal to inspection, nondistended, normoactive bowel sounds, soft to palpation, non-tender and non-distended Extremity normal to inspection Assessment & Plan Assessment/Plan (1) ABLA (acute blood loss anemia): PLAN: hgb 6.2 on presentation with baseline around 8.4 and BRBPR in ED has required 2u prbc IV PPI Hold asa and eliquis Surgery for Endoscopy and colonoscopy on Saturday Hemoglobin 8.2 after 2 units, continue to monitor CT showed no obstruction. (2) Acute lower gastrointestinal bleeding: PLAN: Endoscopy for 08/28 (3) Pneumonia: QUALIFIERS: Laterality: unspecified laterality Lung location: unspecified part of lung Pneumonia type: due to Klebsiella pneumoniae Qualif ied Code(s): J15.0 - Pneumonia due to Klebsiella pneumoniae PLAN: resolved SCx from 08/11: ESBL Klebsiella pneumoniae; MRSA and haemophilus influenza on sputum culture. Will discontinue levofloxacin as has been on abx since 08/11 CXR from 08/25 showed RLL atx. (4) UTI (urinary tract infection): PLAN: resolved Urinary retention/UTI Urine culture on 08/11/2022 was positive for ESBL Klebsiella (not E. coli)i. Levaquin p.o. changed to IV and continued. UA unremarkable on 08/25. DC levofloxacin (5) Hyponatremia: PLAN: Na 129 on admission. improved Monitor (6) Hyperkalemia: PLAN: 5.7 on admission resolved monitor (7) RAFA (acute kidney injury): PLAN: resolved RAFA on CKD stage II Creatinine on presentation was 1.56. Baseline creatinine is less than 1. BUN is 66. BUN over creatinine is 42.3. Likely prerenal. Hold home Lasix. Blood transfusion as above. Trend BMP. Avoid nephrotoxic's (8) Dysphagia: PLAN: chronic. s/p CVA. s/p PEG. speech therapy diet texture: nectar-thick liquids w HOB 90 degrees and remain sitting upright for 30 minutes afterwards PLAN: Plan Chronic conditions: * Diabetic mellitus Not on home insulin. Blood glucose on presentation was stable. Accu-Chek avffgh-yzu-jeosd ordered. * Stage III pressure ulcer on Lower to middle spine; and stage II pressure ulcer on coccyx Avelyn ordered. Wound care consult. * Chronic heart failure with preserved ejection fractionReview of records with echocardiogram 1 04/16/2022 showed ejection fraction of 55% with diastolic dysfunction indeterminate and mild concentric left ventricular hypertrophy. Home Lasix on hold secondary to RAFA . Cautious use of fluids. * Atrial fibrillation.Stable Home Eliquis held secondary to hematochezia. * metastatic squamous cell carcinoma. Per oncology note 06/27, most likely from skin of face to right parotid gland and bones. On Keytruda. No evidence of progressive dz. 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 Transferred to [facility] and was hospitalized for 34-days at that time. DVT prophylaxis: SCDs ordered. Charges/Coding Visit Charges Inpatient E&M: 46537 Subs Hosp L2
[2022-08-28 08:04] LABS: Polychromasia RARE
--- NOTE | 2022-08-28 10:08 | WOUNDNOTE ---
Pt has been getting bowel prep through the night. the Mepilex was removed from sacrum d/t stool contamination. calmoseptine being applied.
[2022-08-28 11:45] LABS: Bedside Glucose 118 mg/dL (74-106)
[2022-08-28] MEDS: Lactated Ringers 1,000 ML 15 ML IV (15:06)
--- NOTE | 2022-08-28 15:41 | NURSING ---
1453: Report called to Norma in Endo.
--- NOTE | 2022-08-28 17:28 | OP.EGD_ITS ---
Patient Name: Sacha Jones Procedure Date: 08/28/2022 4:30 PM Date of : 1960 Age: 62 Procedure: Upper GI endoscopy Indications: Iron deficiency anemia, Hematochezia Providers: Jose Carlos Winters MD Medicines: Monitored Anesthesia Care Complications: No immediate complications. Procedure: Pre-Anesthesia Assessment: - Prior to the procedure, a History and Physical was performed, and patient medications and allergies were reviewed. The patient's tolerance of previous anesthesia was also reviewed. The risks and benefits of the procedure and the sedation options and risks were discussed with the patient. All questions were answered, and informed consent was obtained. Prior Anticoagulants: The patient has taken Eliquis (apixaban), last dose was 2 days prior to procedure. [ASA Grade]. After reviewing the risks and benefits, the patient was deemed in satisfactory condition to undergo the procedure. After obtaining informed consent, the endoscope was passed under direct vision. Throughout the procedure, the patient's blood pressure, pulse, and oxygen saturations were monitored continuously. The gastroscope was introduced through the mouth, and advanced to the second part of duodenum. The patient tolerated the procedure well. The upper GI endoscopy was accomplished without difficulty. Scope In: 4:45:41 PM Scope Out: 4:46:59 PM Total Procedure Duration Time 0 hours 1 minute 18 seconds Findings: The esophagus was normal. The stomach was normal. The examined duodenum was normal. Impression: - Normal esophagus. - Normal stomach. - Normal examined duodenum. - No specimens collected. Recommendation: - Return patient to hospital [facility] for ongoing care. - Resume previous diet. - Continue present medications. Procedure Code(s): --- Professional --- 45344, Esophagogastroduodenoscopy, flexible, transoral; diagnostic, including collection of specimen(s) by brushing or washing, when performed (separate procedure) Diagnosis Code(s): --- Professional --- D50.9, Iron deficiency anemia, unspecified K92.1, Melena (includes Hematochezia) CPT copyright 2017 [employer]. All rights reserved. The codes documented in this report are preliminary and upon road test examiner review may be revised to meet current compliance requirements. Jose Carlos Winters MD 08/28/2022 5:27:56 PM This report has been signed electronically. Number of Addenda: 0 Note Initiated On: 08/28/2022 4:30 PM
--- NOTE | 2022-08-28 17:28 | OP.CCLET_ITS ---
08/28/2022 Delgado Smith Re : Upper GI endoscopy procedure for Sacha Jones Slimer Sarah This procedure was performed on Sunday, August 28, 2022. My impressions and recommendations are as follows: Impressions : - Normal esophagus. - Normal stomach. - Normal examined duodenum. - No specimens collected. Recommendations : - Return patient to hospital [facility] for ongoing care. - Resume previous diet. - Continue present medications. My findings are described in the full procedure note, which is enclosed. If I can be of further assistance, please feel free to contact me at Doctor phone number(s): , Work: . Sincerely, Jose Carlos Winters MD 08/28/2022 5:27:56 PM This report has been signed electronically.
--- NOTE | 2022-08-28 17:32 | PN_ITS ---
Progress Note Patient had normal EGD with no signs of blood or stigmata of bleeding. Colonoscopy was complicated with a difficult prep. There was a large impacted stool ball in the rectum. The proximal colon was actually cleaned out enough that I was able to wash and perform a fairly good inspection. I was able to circumferentially see around the impacted stool ball in the rectum and did not see any stigmata of bleeding or masses or polyps. I was able to examine the anal canal and there were no fissures or hemorrhoids. Unsure as to the etiology of the GI bleed. Patient did have some mild diverticulosis. The patient may need a scope on blood thinners if there is any further bleeding to see what the bleeding may be coming from. At this time I would like to resume tube feeds. Continue to monitor hemoglobin. Jose Carlos Winters MD Pager: [facility] [address] [place] [address] [address] [place] [address] Office:
--- NOTE | 2022-08-28 17:32 | OP.COLON_ITS ---
Patient Name: Sacha Jones Procedure Date: 08/28/2022 4:48 PM Date of : 1960 Age: 62 Procedure: Colonoscopy Indications: Hematochezia Providers: Jose Carlos Winters MD Medicines: Monitored Anesthesia Care Patient Profile: Last Colonoscopy: date unknown. Complications: No immediate complications. Procedure: Pre-Anesthesia Assessment: - Prior to the procedure, a History and Physical was performed, and patient medications and allergies were reviewed. The patient's tolerance of previous anesthesia was also reviewed. The risks and benefits of the procedure and the sedation options and risks were discussed with the patient. All questions were answered, and informed consent was obtained. Prior Anticoagulants: The patient has taken Eliquis (apixaban), last dose was 2 days prior to procedure. [ASA Grade]. After reviewing the risks and benefits, the patient was deemed in satisfactory condition to undergo the procedure. After I obtained informed consent, the scope was passed under direct vision. Throughout the procedure, the patient's blood pressure, pulse, and oxygen saturations were monitored continuously. The colonoscope was introduced through the anus and advanced to the cecum, identified by appendiceal orifice and ileocecal valve. The colonoscopy was performed with difficulty due to poor bowel prep. The patient tolerated the procedure well. The quality of the bowel preparation was poor. Scope In: 4:50:25 PM Scope Withdrawal Time 0 hours 10 minutes 31 seconds Scope Out: 5:15:46 PM Total Procedure Duration Time 0 hours 25 minutes 21 seconds Findings: The entire examined colon appeared normal on direct and retroflexion views. Impression: - Preparation of the colon was poor. - The entire examined colon is normal on direct and retroflexion views. - No specimens collected. Recommendation: - Return patient to hospital [facility] for ongoing care. - Resume previous diet. - Continue present medications. - Repeat colonoscopy in 6 months because the bowel preparation was suboptimal. Procedure Code(s): --- Professional --- 10937, Colonoscopy, flexible; diagnostic, including collection of specimen(s) by brushing or washing, when performed (separate procedure) Diagnosis Code(s): --- Professional --- K92.1, Melena (includes Hematochezia) CPT copyright 2017 [employer]. All rights reserved. The codes documented in this report are preliminary and upon credit administration specialist review may be revised to meet current compliance requirements. Jose Carlos Winters MD 08/28/2022 5:32:32 PM This report has been signed electronically. Number of Addenda: 0 Note Initiated On: 08/28/2022 4:48 PM
--- NOTE | 2022-08-28 17:33 | OP.CCLET_ITS ---
08/28/2022 Delgado Smith Re : Colonoscopy procedure for Sacha Jones Dear Sarah This procedure was performed on Sunday, August 28, 2022. My impressions and recommendations are as follows: Impressions : - Preparation of the colon was poor. - The entire examined colon is normal on direct and retroflexion views. - No specimens collected. Recommendations : - Return patient to hospital [facility] for ongoing care. - Resume previous diet. - Continue present medications. - Repeat colonoscopy in 6 months because the bowel preparation was suboptimal. My findings are described in the full procedure note, which is enclosed. If I can be of further assistance, please feel free to contact me at Doctor phone number(s): , Work: . Sincerely, Jose Carlos Winters MD 08/28/2022 5:32:32 PM This report has been signed electronically.
--- NOTE | 2022-08-28 18:04 | NURSING ---
Returns from procedure. Resting comfortably in bed. No distress noted.
[2022-08-28] MEDS: Jevity 1.5. 1,000 ML Bottle 250 ML GT ×2 (18:24→22:26)
[2022-08-28 19:20] LABS: Bedside Glucose 108 mg/dL (74-106)
[2022-08-28] MEDS: 0.9% Saline Lock 10 ML Syringe IV (20:35)
[2022-08-28] MEDS: Doxazosin 4 MG Tablet GT (21:42)
[2022-08-28] MEDS: Carvedilol 12.5 MG Tablet GT (21:43)
[2022-08-28] MEDS: Baclofen 10 MG Tablet 5 MG GT (21:43)
[2022-08-28] MEDS: Polyethylene Glycol 3350 17 GM PACKET GT (21:44)
[2022-08-28] MEDS: Atorvastatin Calcium 40 MG Tablet GT (21:44)
[2022-08-28] MEDS: oxyCODONE 5 MG Tablet 10 MG GT (21:44)
[2022-08-28] MEDS: Gabapentin 100 MG Capsule 200 MG GT (21:45)
[2022-08-28] MEDS: Senna/Docusate Sodium 1 Tablet 2 TABLET GT (21:46)
[2022-08-28 23:56] LABS: Bedside Glucose 142 mg/dL (74-106)
[2022-08-29 04:23] VITALS: BP 156/65; PULSE 63; RESP 18; TEMP 36.7; O2SAT 97
[2022-08-29 04:35] VITALS: BMI 21.9
[2022-08-29] MEDS: Gabapentin 100 MG Capsule 200 MG GT ×3 (04:38→22:16)
[2022-08-29] MEDS: Nystatin Powder 15gm Bottle 1 APPLIC TOPICAL ×3 (04:38→22:17)
[2022-08-29] MEDS: metroNIDAZOLE 500 MG/100 ML BAG 100 MG IV ×3 (04:38→22:43)
[2022-08-29] MEDS: Baclofen 10 MG Tablet 5 MG GT ×3 (04:38→22:19)
[2022-08-29] MEDS: Jevity 1.5. 1,000 ML Bottle 250 ML GT ×5 (04:39→22:32)
[2022-08-29] MEDS: Menthol/Lanolin/Calamine/Znox 113 GM Tube 1 APPLIC TOPICAL ×2 (04:39→22:17)
[2022-08-29 04:58] LABS: Absolute Lymphocyte Count 0.47 X10^3/uL (0.83-4.51); Basophil# 0.04 X10^3/uL; Basophil% 0.5 % (0-1); Eosinophil# 0.12 X10^3/uL; Eosinophils% 1.4 % (0-5); Hematocrit 26.6 % (40-54); Hemoglobin 8.4 g/dL (13.0-16.5); Lymphocyte # 0.47 X10^3/ul (0.83-4.51); Lymphocyte % 5.5 % (19-41); Mean Corp Hgb Conc 31.6 g/dL (32-36); Mean Corpuscular Hgb 28.2 pg (27.0-32.0); Mean Corpuscular Volume 89.3 fL (80-94); Mean Platelet Vol. 10.2 fl (6.2-12.0); Monocyte# 0.89 X10^3/uL; Monocyte% 10.3 % (0-10); NRBC Flagged by Analyzer 0 % (0-5); Neutrophil # 6.98 X10^3/uL (2.7-7.7); POSITIVE DIFFERENTIAL YES; Platelet Count 219 K/mm3 (150-450); RBC Distribution Width CV 14.7 % (11.6-14.6); RBC Distribution Width SD 47.6 fl (35.1-43.9); Red Blood Count 2.98 M/mm3 (4.6-6.2); White Blood Count 8.6 K/mm3 (4.4-11.0)
[2022-08-29 05:27] LABS: ALB/GLOB Ratio 0.4 RATIO (0.9-2.4); AST(SGOT) 23 U/L (15-37); Alanine Aminotransfer ALT/SGPT 26 U/L (16-61); Albumin, Serum 1.9 g/dL (3.2-5.0); Alkaline Phosphatase 176 U/L (45-117); Anion Gap 6 (5-15); BUN 22 mg/dL (7-18); BUN/Creat Ratio 29.6 RATIO (10-20); Calcium,Total 7.9 mg/dL (8.5-10.1); Chloride 105 mmol/L (98-107); Creatinine, Serum 0.74 mg/dL (0.70-1.30); EST Glomerular Filtration Rate 113 mL/min (>60); Est Glom Filt Rate - Afr Amer 136 mL/min (>60); Globulin 4.3 g/dL (2.2-4.2); Glucose 115 mg/dL (74-106); Potassium 3.7 mmol/L (3.5-5.1); Protein, Total 6.2 g/dL (6.4-8.2); Sodium Level 134 mmol/L (136-145)
[2022-08-29 05:30] LABS: Differential Indicated SCAN CRITERIA MET
[2022-08-29 06:18] LABS: Anisocytosis 1+
[2022-08-29 06:21] LABS: Bedside Glucose 124 mg/dL (74-106)
--- NOTE | 2022-08-29 08:13 | PN.HOSP_ITS ---
Reason for Visit Reason for Visit: Diagnoses Secondary malignant neoplasm of unspecified site (08/26/22) Acute posthemorrhagic anemia (08/26/22) Type 2 diabetes mellitus with other specified complication (08/26/22) Hypo-osmolality and hyponatremia (08/26/22) Hyperkalemia (08/26/22) Pneumonia due to Klebsiella pneumoniae (08/26/22) Gastrointestinal hemorrhage, unspecified (08/26/22) Acute kidney failure, unspecified (08/26/22) Urinary tract infection, site not specified (08/26/22) Dysphagia, unspecified (08/26/22) Unspecified foreign body in respiratory tract, part unspecified causing other injury, initial encounter (08/26/22) Subjective Subjective Minimally verbal. Though does awake to voice. Was a max assist with rolling in bed today. Objective Data Objective Data Vital Signs: Vital Signs Temp Pulse Resp BP Pulse Ox O2 Del Method O2 Flow Rate 36.7 C 63 18 156/65 H 97 Room Air 2 08/29/22 04:23 08/29/22 04:23 08/29/22 04:23 08/29/22 04:23 08/29/22 04:23 08/29/22 04:23 08/27/22 14:45 Oxygen Flow Rate (L/min) 2 Oxygen Delivery Method Room Air Weight: 73.4 kg Body Mass Index (BMI) 21.9 Intake & Output: Intake and Output for Last 24 Hours 08/27/22 08/28/22 08/29/22 23:59 23:59 23:59 Intake Total 2801.67 / 2801.67 1023.5 / 1023.5 100 / 100 Output Total 3900 / 3900 2350 / 2350 Balance -1098.33 / -1098.33 -1326.5 / -1326.5 100 / 100 Lab / Micro Data Result Diagrams: 08/29/22 04:13 08/29/22 04:13 Labs: Laboratory Results - last 24 hr 08/28/22 11:25: POC Glucose 118 H 08/28/22 18:15: POC Glucose 108 H 08/28/22 23:33: POC Glucose 142 H 08/29/22 04:13: WBC 8.6, RBC 2.98 L, Hgb 8.4 L, Hct 26.6 L, MCV 89.3, MCH 28.2, MCHC 31.6 L, RDW Std Deviation 47.6 H, RDW Coeff of Dipti 14.7 H, Plt Count 219, MPV 10.2, Immature Gran % (Auto) 1.300 H, Neut % (Auto) 81.0 H, Lymph % (Auto) 5.5 L, Eddy % (Auto) 10.3 H, Eos % (Auto) 1.4, Baso % (Auto) 0.5, Absolute Neuts (auto) 7.0, Absolute Lymphs (auto) 0.47 L, Nucleated RBC % 0, Anisocytosis 1+ 08/29/22 04:13: Sodium 134 L, Potassium 3.7, Chloride 105, Carbon Dioxide 23.0, Anion Gap 6, BUN 22 H, Creatinine 0.74, Estim Creat Clear Calc 104.70, Est GFR (MDRD) Af Amer 136, Est GFR (MDRD) Non-Af 113, BUN/Creatinine Ratio 29.6 H, Glucose 115 H, Calcium 7.9 L, Total Bilirubin 0.60, AST 23, ALT 26, Alkaline Phosphatase 176 H, Total Protein 6.2 L, Albumin 1.9 L, Globulin 4.3 H, Albumin/Globulin Ratio 0.4 L 08/29/22 06:00: POC Glucose 124 H Micro: Microbiology 08/25/22 23:10 Blood Culture (Wb) - Left Hand Blood Culture - Preliminary No growth in 48 hours. 08/25/22 23:30 Blood Culture (Wb) - Left Forearm Blood Culture - Preliminary No growth in 48 hours. 08/25/22 23:10 Nasal Secretion SARS-CoV-2 & FLU Antigen (Rapid) - Final Physical Exam Const alert and no apparent distress HEENT head/scalp atraumatic and moist oral mucous membranes Resp normal respiratory effort, no retractions, no use of accessory muscles and clear to auscultation bilaterally Cardio regular rate, regular rhythm, S1 normal heart sound and S2 normal heart sound GI normal to inspection, nondistended, normoactive bowel sounds, soft to palpation, non-tender and non-distended Assessment & Plan Assessment/Plan (1) ABLA (acute blood loss anemia): PLAN: hgb 6.2 on presentation with baseline around 8.4 and BRBPR in ED has required 2u prbc IV PPI Hold asa and eliquis Surgery performed EGD on 08/28 that was unremarkable and colonoscopy on 08/28 that was unremarkable (though poor prep) Hemoglobin 8.2 after 2 units, continue to monitor CT showed no obstruction. iron low, but ferritin high. start ferrous sulfate Per general surgery, ok to resume anticoagulation. Would rescope if rebleeds. (2) Acute lower gastrointestinal bleeding: PLAN: Endoscopy for 08/28 Transient episode of hematochezia. (3) Pneumonia: QUALIFIERS: Laterality: unspecified laterality Lung location: unspecified part of lung Pneumonia type: due to Klebsiella pneumoniae Qualified Code(s): J15.0 - Pneumonia due to Klebsiella pneumoniae PLAN: resolved SCx from 08/11: ESBL Klebsiella pneumoniae; MRSA and haemophilus influenza on sputum culture. Will discontinue levofloxacin as has been on abx since 08/11 CXR from 08/25 showed RLL atx. (4) UTI (urinary tract infection): PLAN: resolved Urinary retention/UTI Urine culture on 08/11/2022 was positive for ESBL Klebsiella (not E. coli)i. Levaquin p.o. changed to IV and continued. UA unremarkable on 08/25. DC levofloxacin (5) Hyponatremia: PLAN: Na 129 on admission. improved Monitor (6) Hyperkalemia: PLAN: 5.7 on admission resolved monitor (7) RAFA (acute kidney injury): PLAN: resolved RAFA on CKD stage II Creatinine on presentation was 1.56. Baseline creatinine is less than 1. BUN is 66. BUN over creatinine is 42.3. Likely prerenal. Hold home Lasix. Blood transfusion as above. Trend BMP. Avoid nephrotoxic's (8) Dysphagia: PLAN: chronic. s/p CVA. s/p PEG. speech therapy diet texture: nectar-thick liquids w HOB 90 degrees and remain sitting upright for 30 minutes afterwards PLAN: Plan Chronic conditions: * Diabetic mellitus Not on home insulin. Blood glucose on presentation was stable. Accu-Chek [id number] ordered. * Stage III pressure ulcer on Lower to middle spine; and stage II pressure ulcer on coccyx Avelyn ordered. Wound care consult. * Chronic heart failure with preserved ejection fractionReview of records with echocardiogram 1 04/16/2022 showed ejection fraction of 55% with diastolic dysfunction indeterminate and mild concentric left ventricular hypertrophy. Home Lasix on hold secondary to RAFA . Cautious use of fluids. * Atrial fibrillation.Stable Home Eliquis held secondary to hematochezia. * metastatic squamous cell carcinoma. Per oncology note 06/27, most likely from s kin of face to right parotid gland and bones. On Keytruda. No evidence of progressive dz. 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 Transferred to [facility] and was hospitalized for 34-days at that time. DVT prophylaxis: SCDs ordered. Disposition: To be determined. Patient is a max assist with turning in bed. Discussed with the patient's , Maya, who would like to see the patient could be seen at transitional care unit. Spoke with case management to rule sent this off. With patient is not a candidate for transitional care unit she does not want the patient to go to any other residential facility and will take him home with home care. Charges/Coding Visit Charges Inpatient E&M: 24889 Subs Hosp L2
[2022-08-29 08:45] VITALS: BP 176/79; PULSE 70; RESP 16; TEMP 36.4; O2SAT 99
[2022-08-29] MEDS: Allopurinol 100 MG Tablet GT (08:54)
[2022-08-29] MEDS: Carvedilol 12.5 MG Tablet GT ×2 (08:54→22:18)
[2022-08-29] MEDS: Polyethylene Glycol 3350 17 GM PACKET GT ×2 (08:54→22:20)
[2022-08-29] MEDS: Ferrous Sulfate 300 MG/5 ML UDC PO (13:22)
[2022-08-29 14:03] VITALS: O2SAT 96
[2022-08-29 14:26] LABS: Bedside Glucose 233 mg/dL (74-106)
--- NOTE | 2022-08-29 14:50 | CASEMGMT ---
Patient's expressed interest in TCU. SW made a referral to TCU. However, TCU is unable to accept patient. SW notified physician who notified patient's . Jennifer MENDES
[2022-08-29 15:00] VITALS: BP 156/76; PULSE 70; RESP 16; TEMP 36.7; O2SAT 96
[2022-08-29] MEDS: Furosemide 40 MG Tablet PO (18:38)
[2022-08-29] MEDS: Juven (unflavored) Packet 1 PACKET PO (18:38)
[2022-08-29 19:16] LABS: Bedside Glucose 191 mg/dL (74-106)
[2022-08-29 21:57] VITALS: BP 158/78; PULSE 71; RESP 18; TEMP 37.1; O2SAT 96
[2022-08-29] MEDS: Atorvastatin Calcium 40 MG Tablet GT (22:18)
[2022-08-29] MEDS: APIXABAN 2.5 MG TABLET (WCH) PO (22:19)
[2022-08-29] MEDS: Senna/Docusate Sodium 1 Tablet 2 TABLET GT (22:19)
[2022-08-29] MEDS: Doxazosin 4 MG Tablet GT (22:19)
[2022-08-30 00:26] LABS: Bedside Glucose 197 mg/dL (74-106)
[2022-08-30 04:32] VITALS: BP 153/65; PULSE 76; RESP 18; TEMP 36.8; O2SAT 96
[2022-08-30 05:04] LABS: Absolute Lymphocyte Count 0.48 X10^3/uL (0.83-4.51); Absolute Neutrophil Count 8.3 X10^3/uL (2.0-7.7); Basophil# 0.03 X10^3/uL; Basophil% 0.3 % (0-1); Eosinophil# 0.08 X10^3/uL; Eosinophils% 0.8 % (0-5); Hematocrit 28.2 % (40-54); Hemoglobin 8.8 g/dL (13.0-16.5); Lymphocyte # 0.48 X10^3/ul (0.83-4.51); Lymphocyte % 4.8 % (19-41); Mean Corp Hgb Conc 31.2 g/dL (32-36); Mean Corpuscular Hgb 28.7 pg (27.0-32.0); Mean Corpuscular Volume 91.9 fL (80-94); Mean Platelet Vol. 10.2 fl (6.2-12.0); Monocyte# 0.96 X10^3/uL; Monocyte% 9.7 % (0-10); NRBC Flagged by Analyzer 0 % (0-5); Neutrophil # 8.25 X10^3/uL (2.7-7.7); Neutrophil % 83.4 % (47-70); POSITIVE DIFFERENTIAL YES; Platelet Count 247 K/mm3 (150-450); RBC Distribution Width CV 14.6 % (11.6-14.6); RBC Distribution Width SD 49.1 fl (35.1-43.9); Red Blood Count 3.07 M/mm3 (4.6-6.2); White Blood Count 9.9 K/mm3 (4.4-11.0)
[2022-08-30 05:12] LABS: Differential Indicated SCAN CRITERIA MET
[2022-08-30 05:29] LABS: ALB/GLOB Ratio 0.4 RATIO (0.9-2.4); AST(SGOT) 19 U/L (15-37); Alanine Aminotransfer ALT/SGPT 22 U/L (16-61); Albumin, Serum 1.9 g/dL (3.2-5.0); Alkaline Phosphatase 181 U/L (45-117); Anion Gap 6 (5-15); BUN 23 mg/dL (7-18); BUN/Creat Ratio 30.9 RATIO (10-20); Calcium,Total 7.7 mg/dL (8.5-10.1); Chloride 105 mmol/L (98-107); Creatinine, Serum 0.74 mg/dL (0.70-1.30); EST Glomerular Filtration Rate 112 mL/min (>60); Est Glom Filt Rate - Afr Amer 136 mL/min (>60); Globulin 4.4 g/dL (2.2-4.2); Glucose 143 mg/dL (74-106); Potassium 4.1 mmol/L (3.5-5.1); Protein, Total 6.3 g/dL (6.4-8.2); Sodium Level 136 mmol/L (136-145)
[2022-08-30] MEDS: metroNIDAZOLE 500 MG/100 ML BAG 100 MG IV (05:59)
[2022-08-30] MEDS: Gabapentin 100 MG Capsule 200 MG GT (06:02)
[2022-08-30] MEDS: Jevity 1.5. 1,000 ML Bottle 250 ML GT ×2 (06:02→10:24)
[2022-08-30] MEDS: Menthol/Lanolin/Calamine/Znox 113 GM Tube 1 APPLIC TOPICAL (06:02)
[2022-08-30] MEDS: Nystatin Powder 15gm Bottle 1 APPLIC TOPICAL (06:02)
[2022-08-30] MEDS: Baclofen 10 MG Tablet 5 MG GT (06:03)
[2022-08-30] MEDS: 0.9% Saline Lock 10 ML Syringe IV (06:16)
[2022-08-30 06:27] VITALS: BMI 22.3
[2022-08-30 07:00] LABS: Bedside Glucose 149 mg/dL (74-106)
--- NOTE | 2022-08-30 09:44 | PCM.DC ---
Discharge Instructions Diet Discharge Diet: Swallowing Precautions (NPO with trial s of pureed textures and nectar thickened liquids. ) Activity Discharge Activity: - (activity as tolerated with assistance. ) Dressing / Incision Call your doctor if you observe: Fever of 101 or Higher, Shortness of breath and - (blood in stools. Dark tarry stools. ) Follow Up Care Test Results: Test results from this visit will be discussed in further detail at your follow-up appointment, if applicable. Discharge Plan Admission Admit Date/Time: 08/26/22 01:39 Primary Reason for Your Visit: anemia Attending Provider: Khalif Gaitan Primary Care Provider: Delgado Smith Consulting Providers: Hang Neville ; Jose Carlos Winters ; Ashley Nowak Instructions Additional Instructions / Restrictions: Colonoscopy and EGD were negative for any active source of bleeding. If you notice any rectal bleeding or dark tarry stools, please let someone know. Follow up with [facility] at next scheduled appointment. Speech therapy recommending nothing by mouth, though may trial pureed foods with nectar thick liquids in small quantities. Discharge Orders/Prescriptions Prescriptions: New pantoprazole [address] for susp in packet 40 mg feeding tube BID Qty: 60 0RF carvedilol 12.5 mg Tablet 12.5 mg G-tube BID Qty: 60 0RF polyethylene glycol 3350 17 gram Powder In Packet 17 g G-tube BID 30 Days Qty: 30 0RF Rx Instructions: hold for loose stools Continued nitroglycerin 0.4 mg tablet, sublingual 0.4 mg sublingual Q5M PRN (Reason: Cardiac/Chest Pain) Qty: 25 6RF (DME) lancets Misc See Rx Instructions .ROUTE .MEDSUPPLY Qty: 100 Rx Instructions: As directed (DME) blood ketone glucose monitor Device See Rx Instructions .ROUTE .MEDSUPPLY Qty: 1 Rx Instructions: As directed Keytruda 25 mg/mL solution 25 mg IV .UD acetaminophen 650 mg Suppository 650 mg TN Q4H PRN PRN (Reason: Fever) Jevity 1.5 Minor 0.06 gram-1.5 kcal/mL Liquid 250 ml G-tube 5X/DAY Qty: 0 0RF tamsulosin 0.4 mg capsule 0.4 mg PO QHS 30 Days Qty: 30 0RF methadone 5 mg tablet 5 mg PO QHS 5 Days Qty: 5 0RF sennosides-docusate sodium [Senexon-S] 8.6-50 mg tablet 2 tab PO QHS Qty: 30 0RF amlodipine 10 mg tablet 10 mg feeding tube DAILY Qty: 30 0RF Rx Instructions: Hold for SBP less than 130 mmHg bisacodyl 10 mg Suppository 10 mg TN DAILY PRN (Reason: Constipation) Qty: 12 0RF Changed furosemide 40 mg tablet 40 mg feeding tube QHS 30 Days Qty: 30 0RF atorvastatin 40 mg tablet 40 mg feeding tube QHS Qty: 90 3RF Label Comments: have not been taking since 04/10--was told not to for 10 day since getting the covid vaccination allopurinol 100 mg tablet 100 mg feeding tube DAILY Qty: 30 0RF aspirin 81 MG tablet 81 mg feeding tube DAILY Qty: 30 0RF doxazosin 4 mg Tablet 4 mg feeding tube QHS 30 Days Qty: 30 0RF hydralazine 50 mg tablet 50 mg feeding tube TID 90 Days Qty: 270 3RF ergocalciferol (vitamin D2) 1,250 mcg (50,000 unit) capsule 1,250 mcg feeding tube SA Qty: 7 0RF Label Comments: TAKE 1 CAPSULE BY MOUTH WEEKLY FOR 90 DAYS ferrous fumarate [Ferrocite] 324 mg (106 mg iron) tablet 324 mg feeding tube BID Qty: 60 0RF oxycodone 10 mg tablet 10 mg feeding tube Q4H PRN (Reason: Pain) 3 Days Qty: 1 0RF Eliquis 2.5 mg tablet 2.5 mg feeding tube BID 30 Days Qty: 60 1RF baclofen 5 mg Granules In Packet 5 mg feeding tube TID PRN (Reason: Muscle Spasm) Qty: 90 0RF Discontinued gabapentin 100 mg capsule 200 mg PO TID acetaminophen [Acetaminophen Extra Strength] 500 mg Tablet 500 mg PO Q6H PRN (Reason: Pain) levofloxacin 500 mg Tablet 500 mg PO DAILY@0600 2 Days Qty: 2 0RF lisinopril 20 mg tablet 40 mg PO DAILY 30 Days Qty: 0 0RF carvedilol 25 mg Tablet 25 mg PO BID 30 Days Qty: 60 0RF Rx Instructions: must administer with a meal/food acetaminophen-codeine 120 mg-12 mg /5 mL (5 mL) solution 5 ml PO Q6H PRN (Reason: pain) 3 Days Qty: 500 0RF lansoprazole 30 mg capsule,delayed release(DR/EC) 30 mg PO DAILY Referrals / Follow Up: *[facility] ([facility]) [Provider Group] - 09/12/22 2:00 pm Delgado Smith DO [Primary Care Provider] - Within 2 Weeks Disposition Disposition (needs filled in before D/C Order can be placed): Home Health Service
[2022-08-30 09:49] VITALS: BP 158/82; PULSE 69; RESP 16; TEMP 37.1; O2SAT 98
[2022-08-30] MEDS: Juven (unflavored) Packet 1 PACKET PO (09:52)
[2022-08-30] MEDS: Polyethylene Glycol 3350 17 GM PACKET GT (09:52)
[2022-08-30] MEDS: APIXABAN 2.5 MG TABLET (WCH) PO (09:53)
[2022-08-30] MEDS: amLODIPine 10 MG Tablet PO (09:53)
[2022-08-30] MEDS: Carvedilol 12.5 MG Tablet GT (09:53)
[2022-08-30] MEDS: Allopurinol 100 MG Tablet GT (09:53)
--- NOTE | 2022-08-30 10:11 | DS.PCM_ITS ---
Providers Date of Admission: 08/26/22 Primary Care Physician: Dr. Delgado Smith, Consultations 08/26/22 03:07 Consult: General Surgery Routine Consulting Provider: Jose Carlos Winters Reason for Consult: ABLA EMERGENT Consult: No MD Notified: Yes Date Notified: 08/26/22 Time Notified: 06:44 Method of Notification: Text 08/26/22 04:15 Consult: Onc/Wound/fender finisher Routine Comment: Reason for Consult:: Pressure ulcer at back and coccyx Reason For Visit: ABLA Diagnosis Discharge Diagnosis (1) ABLA (acute blood loss anemia): Status: Acute Code(s): D62 - Acute posthemorrhagic anemia (2) Acute lower gastrointestinal bleeding: Status: Acute Code(s): K92.2 - Gastrointestinal hemorrhage, unspecified (3) Pneumonia: Status: Acute Code(s): J18.9 - Pneumonia, unspecified organism Qualifiers: Pneumonia type: due to Klebsiella pneumoniae Laterality: unspecified laterality Lung location: unspecified part of lung Qualified Code(s): J15.0 - Pneumonia due to Klebsiella pneumoniae (4) UTI (urinary tract infection): Status: Acute Code(s): N39.0 - Urinary tract infection, site not specified (5) Hyponatremia: Status: Acute Code(s): E87.1 - Hypo-osmolality and hyponatremia (6) Hyperkalemia: Status: Acute Code(s): E87.5 - Hyperkalemia (7) RAFA (acute kidney injury): Status: Acute Code(s): N17.9 - Acute kidney failure, unspecified (8) Dysphagia: Status: Acute Code(s): R13.10 - Dysphagia, unspecified Medications at Discharge Home Medications nitroglycerin 0.4 mg sublingual tablet 0.4 mg sublingual Q5M PRN Cardiac/Chest Pain #25 tabs 10/17/18 blood ketone glucose monitor #1 ea 06/06/21 lancets #100 ea 06/06/21 pembrolizumab 25 mg/mL intravenous solution (Keytruda) 25 mg IV .UD CANCER 09/13/21 acetaminophen 650 mg rectal suppository 650 mg IA Q4H PRN PRN Fever 08/10/22 lactose-reduced food with fiber 0.06 gram-1.5 kcal/mL oral liquid (Jevity 1.5 Minor) 250 ml G-tube 5X/DAY #0 mL 08/17/22 methadone 5 mg tablet 5 mg PO QHS PAIN, metastatic CA 5 days #5 tabs 08/17/22 tamsulosin 0.4 mg capsule 0.4 mg PO QHS prostate 30 days #30 caps 08/17/22 allopurinol 100 mg tablet 100 mg feeding tube DAILY gout #30 tabs 08/30/22 amlodipine 10 mg tablet 10 mg feeding tube DAILY bp #30 tabs 08/30/22 apixaban 2.5 mg tablet (Eliquis) 2.5 mg feeding tube BID 30 days #60 tabs 08/30/22 aspirin 81 mg tablet,delayed release 81 mg feeding tube DAILY heart health #30 tabs 08/30/22 atorvastatin 40 mg tablet 40 mg feeding tube QHS cholesterol #90 tabs 08/30/22 baclofen 5 mg oral granules in packet 5 mg feeding tube TID PRN Muscle Spasm #90 ea 08/30/22 bisacodyl 10 mg rectal suppository 10 mg IA DAILY PRN Constipation #12 ea 08/30/22 carvedilol 12.5 mg tablet 12.5 mg G-tube BID #60 tabs 08/30/22 doxazosin 4 mg tablet 4 mg feeding tube QHS BPH 30 days #30 tabs 08/30/22 ergocalciferol (vitamin D2) 1,250 mcg (50,000 unit) capsule 1,250 mcg feeding tube SA SUPPLEMENT #7 caps 08/30/22 ferrous fumarate 324 mg (106 mg iron) tablet (Ferrocite) 324 mg feeding tube BID supplement #60 tabs 08/30/22 furosemide 40 mg tablet 40 mg feeding tube QHS water 30 days #30 tabs 08/30/22 hydralazine 50 mg tablet 50 mg feeding tube TID 90 days #270 tabs 08/30/22 oxycodone 10 mg tablet 10 mg feeding tube Q4H PRN Pain 3 days #1 TAB 08/30/22 pantoprazole 40 mg granules delayed-release for susp in packet 40 mg feeding tube BID #60 ea 08/30/22 polyethylene glycol 3350 17 gram oral powder packet 17 g G-tube BID 30 days #30 ea 08/30/22 sennosides 8.6 mg-docusate sodium 50 mg tablet (Senexon-S) 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 Patient underwent endoscopy with colonoscopy EGD on that were unremarkable. Though was noted the patient did have poor prep. Patient did receive 2 units of packed red blood cells upon admission. Hemoglobin has remained stable. Patient does take iron as outpatient and will continue with that. Patient does have issues with constipation and is already on Dulcolax and Senokot. We will add MiraLAX to his regimen. Patient is very debilitated and requiring max assist just to turn in bed. Discussed with the patient's on the . She wanted evaluation for transitional care unit. I was informed that due to his insurance, he would not be approved for the TCU. She did not want a other facility and would rather take him home so the patient will be discharged today to continue with home health care. Patient is very debilitated also has issues in regards to swallowing. Speech therapy recommending nothing by mouth but did recommend trials of. Foods and nectar thickened liquids. (1) ABLA (acute blood loss anemia): PLAN: hgb 6.2 on presentation with baseline around 8.4 and BRBPR in ED has required 2u prbc IV PPI Hold asa and eliquis Surgery performed EGD on 08/28 that was unremarkable and colonoscopy on 08/28 that was unremarkable (though poor prep) Hemoglobin 8.2 after 2 units, continue to monitor CT showed no obstruction. iron low, but ferritin high. start ferrous sulfate Per general surgery, ok to resume anticoagulation. Would rescope if rebleeds. (2) Acute lower gastrointestinal bleeding: PLAN: Endoscopy for 08/28 Transient episode of hematochezia. (3) Pneumonia: QUALIFIERS: ?Laterality:?unspecified laterality??Lung location:? unspecified part of lung??Pneumonia type:?due to Klebsiella pneumoniae? Qualified Code(s):?J15.0 - Pneumonia due to Klebsiella pneumoniae PLAN:?resolved SCx from 08/11:? ESBL Klebsiella pneumoniae; MRSA and haemophilus influenza on sputum culture. Will discontinue levofloxacin as has been on abx since 08/11 CXR from 08/25 showed RLL atx. (4) UTI (urinary tract infection): PLAN:?resolved Urinary retention/UTI Urine culture on 08/11/2022 was positive for ESBL Klebsiella (not E. coli)i.? Levaquin p.o. changed to IV and continued. UA unremarkable on 08/25. DC levofloxacin (5) Hyponatremia: PLAN: Na 129 on admission. improved Monitor (6) Hyperkalemia: PLAN: 5.7 on admission resolved monitor (7) RAFA (acute kidney injury): PLAN: resolved RAFA on CKD stage II Creatinine on presentation was 1.56.? Baseline creatinine is less than 1.? BUN is 66.? BUN over creatinine is 42.3.? Likely prerenal. Hold home Lasix.? Blood transfusion as above.? Trend BMP.? Avoid nephrotoxic's (8) Dysphagia: PLAN: chronic. s/p CVA. s/p PEG. speech therapy diet texture: nectar-thick liquids w HOB 90 degrees and remain sitting upright for 30 minutes afterwards PLAN: Plan Chronic conditions: * Diabetic mellitus Not on home insulin.? Blood glucose on presentation was stable.? Accu-Chek [id number] ordered. * Stage III pressure ulcer on Lower to middle spine; and stage II pressure ulcer on coccyx Avelyn ordered.? Wound care consult. * Chronic heart failure with preserved ejection fractionReview of records with echocardiogram 1 04/16/2022 showed ejection fraction of 55% with diastolic dysfunction indeterminate and mild concentric left ventricular hypertrophy.? Home Lasix on hold secondary to RAFA .? Cautious use of fluids. * Atrial fibrillation.Stable Home Eliquis held secondary to hematochezia. * metastatic squamous cell carcinoma. Per oncology note 06/27, most likely from skin of face to right parotid gland and bones. On Keytruda. No evidence of progressive dz. 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 Transferred to [facility] and was hospitalized for 34-days at that time. Weight / BMI Weight Weight: 74.6 kg Body Mass Index (BMI) 22.3 ABG / Lab / Microbiology Data Result Diagrams: 08/30/22 04:20 08/30/22 04:20 Laboratory: Laboratory Results - last 24 hr 08/29/22 14:06: POC Glucose 233 H 08/29/22 18:55: POC Glucose 191 H 08/29/22 23:47: POC Glucose 197 H 08/30/22 04:20: WBC 9.9, RBC 3.07 L, Hgb 8.8 L, Hct 28.2 L, MCV 91.9, MCH 28.7, MCHC 31.2 L, RDW Std Deviation 49.1 H, RDW Coeff of Dipti 14.6, Plt Count 247, MPV 10.2, Immature Gran % (Auto) 1.000 H, Neut % (Auto) 83.4 H, Lymph % (Auto) 4.8 L , Rankin % (Auto) 9.7, Eos % (Auto) 0.8, Baso % (Auto) 0.3, Absolute Neuts (auto) 8.3 H, Absolute Lymphs (auto) 0.48 L, Nucleated RBC % 0 08/30/22 04:20: Sodium 136, Potassium 4.1, Chloride 105, Carbon Dioxide 25.0, Anion Gap 6, BUN 23 H, Creatinine 0.74, Estim Creat Clear Calc 104.70, Est GFR (MDRD) Af Amer 136, Est GFR (MDRD) Non-Af 112, BUN/Creatinine Ratio 30.9 H, Glucose 143 H, Calcium 7.7 L, Total Bilirubin 0.50, AST 19, ALT 22, Alkaline Phosphatase 181 H, Total Protein 6.3 L, Albumin 1.9 L, Globulin 4.4 H, Albumin/Globulin Ratio 0.4 L 08/30/22 06:19: POC Glucose 149 H Microbiology: Microbiology 08/25/22 23:10 Blood Culture (Wb) - Left Hand Blood Culture - Preliminary No growth in 48 hours. 08/25/22 23:30 Blood Culture (Wb) - Left Forearm Blood Culture - Preliminary No growth in 48 hours. 08/25/22 23:10 Nasal Secretion SARS-CoV-2 & FLU Antigen (Rapid) - Final D/C Instructions Discharge Diet: Swallowing Precautions (NPO with trial s of pureed textures and nectar thickened liquids. ) Call your doctor if you observe: Fever of 101 or Higher, Shortness of breath and - (blood in stools. Dark tarry stools. ) Meaningful Use Info Meaningful Use Diagnoses (Choose all that apply): None applicable Discharge Plan Admission Admit Date/Time: 08/26/22 01:39 Primary Reason for Your Visit: anemia Attending Provider: Khalif Gaitan Primary Care Provider: Delgado Smith Consulting Providers: Hang Neville ; Jose Carlos Winters ; Ashley Nowak Instructions Additional Instructions / Restrictions: Colonoscopy and EGD were negative for any active source of bleeding. If you notice any rectal bleeding or dark tarry stools, please let someone know. Follow up with [facility] at next scheduled appointment. Speech therapy recommending nothing by mouth, though may trial pureed foods with nectar thick liquids in small quantities. Discharge Orders/Prescriptions Prescriptions: New pantoprazole [address] for susp in packet 40 mg feeding tube BID Qty: 60 0RF carvedilol 12.5 mg Tablet 12.5 mg G-tube BID Qty: 60 0RF polyethylene glycol 3350 17 gram Powder In Packet 17 g G-tube BID 30 Days Qty: 30 0RF Rx Instructions: hold for loose stools Continued nitroglycerin 0.4 mg tablet, sublingual 0.4 mg sublingual Q5M PRN (Reason: Cardiac/Chest Pain) Qty: 25 6RF (DME) lancets Misc See Rx Instructions .ROUTE .MEDSUPPLY Qty: 100 Rx Instructions: As directed (DME) blood ketone glucose monitor Device See Rx Instructions .ROUTE .MEDSUPPLY Qty: 1 Rx Instructions: As directed Keytruda 25 mg/mL solution 25 mg IV .UD acetaminophen 650 mg Suppository 650 mg IA Q4H PRN PRN (Reason: Fever) Jevity 1.5 Minor 0.06 gram-1.5 kcal/mL Liquid 250 ml G-tube 5X/DAY Qty: 0 0RF tamsulosin 0.4 mg capsule 0.4 mg PO QHS 30 Days Qty: 30 0RF methadone 5 mg tablet 5 mg PO QHS 5 Days Qty: 5 0RF sennosides-docusate sodium [Senexon-S] 8.6-50 mg tablet 2 tab PO QHS Qty: 30 0RF amlodipine 10 mg tablet 10 mg feeding tube DAILY Qty: 30 0RF Rx Instructions: Hold for SBP less than 130 mmHg bisacodyl 10 mg Suppository 10 mg IA DAILY PRN (Reason: Constipation) Qty: 12 0RF Changed furosemide 40 mg tablet 40 mg feeding tube QHS 30 Days Qty: 30 0RF atorvastatin 40 mg tablet 40 mg feeding tube QHS Qty: 90 3RF Label Comments: have not been taking since 12/27--was told not to for 10 day since getting the covid vaccination allopurinol 100 mg tablet 100 mg feeding tube DAILY Qty: 30 0RF aspirin 81 MG tablet 81 mg feeding tube DAILY Qty: 30 0RF doxazosin 4 mg Tablet 4 mg feeding tube QHS 30 Days Qty: 30 0RF hydralazine 50 mg tablet 50 mg feeding tube TID 90 Days Qty: 270 3RF ergocalciferol (vitamin D2) 1,250 mcg (50,000 unit) capsule 1,250 mcg feeding tube SA Qty: 7 0RF Label Comments: TAKE 1 CAPSULE BY MOUTH WEEKLY FOR 90 DAYS ferrous fumarate [Ferrocite] 324 mg (106 mg iron) tablet 324 mg feeding tube BID Qty: 60 0RF oxycodone 10 mg tablet 10 mg feeding tube Q4H PRN (Reason: Pain) 3 Days Qty: 1 0RF Eliquis 2.5 mg tablet 2.5 mg feeding tube BID 30 Days Qty: 60 1RF baclofen 5 mg Granules In Packet 5 mg feeding tube TID PRN (Reason: Muscle Spasm) Qty: 90 0RF Discontinued gabapentin 100 mg capsule 200 mg PO TID acetaminophen [Acetaminophen Extra Strength] 500 mg Tablet 500 mg PO Q6H PRN (Reason: Pain) levofloxacin 500 mg Tablet 500 mg PO DAILY@0600 2 Days Qty: 2 0RF lisinopril 20 mg tablet 40 mg PO DAILY 30 Days Qty: 0 0RF carvedilol 25 mg Tablet 25 mg PO BID 30 Days Qty: 60 0RF Rx Instructions: must administer with a meal/food acetaminophen-codeine 120 mg-12 mg /5 mL (5 mL) solution 5 ml PO Q6H PRN (Reason: pain) 3 Days Qty: 500 0RF lansoprazole 30 mg capsule,delayed release(DR/EC) 30 mg PO DAILY Referrals / Follow Up: *[facility] ([facility]) [Provider Group] - 09/12/22 2:00 pm Delgado Smith DO [Primary Care Provider] - Within 2 Weeks Disposition Disposition (needs filled in before D/C Order can be placed): Home Health Service Charges/Coding Visit Charges Inpatient E&M: 75906 Disch Hosp >30min
--- NOTE | 2022-08-30 10:16 | CASEMGMT ---
Discharge Planning [employer]vantage updated on discharge date and nutrition assessment sent via [facility]. Priscila Gee
--- NOTE | 2022-08-30 10:20 | NS ---
Addendum entered and electronically signed by Yvonne Rodriguez 08/30/22 11:32: Able to speak w/ Maya at bedside. Escorted to cafeteria to purchase Sujit for pt. Reviewed updated recommendations including slightly decreased flushes (from 120 to 90mL before and after) given hyponatremia. states pt has always had issues w/ sodium and was on PO salt tablets previously. Discussed monitoring hydration status (edema, urine color) and recommended routine labs reviewed by physician for monitoring. states pt did have significant constipation that was not improved w/ meds CUT OUT MARKER so she requested hospitalist order enemas for d/c. Explained that current formula contains fiber so additional fiber supplement may not be necessary. worried that pt is NPO and will not be getting enough calories. She is worried pt has been losing a significant amount of wt this admission however daily wts do not support this claim. She thinks pt has lost >100#, however review of EMR wt history again does not support significant wt loss since 2022 or since stroke in June 2022. Encouraged to follow-up w/ [facility] if wt loss does occur and home EN can be adjusted/increased. unsure if she will be able to weigh pt at home- may need to come in for nutrition appointment to get wt. Also suggested to she take arm/waist measurements at home if able that may help to determine if wt loss is occurring. requesting to speak w/ speech therapy prior to discharge. RDN left message for ASSISTANT ACCOUNT MANAGER. Barb Rodriguez MS, RDN, LD Original Note: For home going enteral nutrition via PEG: Isosource 1.5, 250mL bolus 5x/day w/ 90mL H2O flush before and after each bolus to provide 1875 calories, 85 g protein, and 1855mL fluid/day. Recommended feeding times are 0600, 1000, 1400, 1800, and 2200. 1 packet Sujit mixed in 8oz water twice daily via PEG for wound healing. Speech therapy recommending continued NPO at this time time with trials of puree textures / mildly/nectar thick liquids with ASSISTANT ACCOUNT MANAGER only. Updated tube feeding instructions and Sujit purchasing information left w/ RN for . Encouraged outpatient follow-up w/ [facility] for ongoing management. Barb Rodriguez MS, RDN, LD
[2022-08-30] MEDS: Ferrous Sulfate 300 MG/5 ML UDC PO (11:33)
[2022-08-30 12:20] LABS: Bedside Glucose 192 mg/dL (74-106)
[2022-08-30] MEDS: oxyCODONE 5 MG Tablet 10 MG GT (12:24)
--- NOTE | 2022-08-30 13:56 | CASEMGMT ---
LLOYD GAO NOTE: LLOYD GAO informed pt's requesting hospital bed for pt. LLOYD GAO to room. has went home and pt is being transferred to cot at this time to be transported home from the hospital. Call placed to at this time. She verifies she would like a hospital bed and wants one where the height adjusts, as she needs to assist pt in/out of bed. informed this would be a full-electric bed and that insurance coverage is different for semi vs full, and explained the differences in the beds. She verifies she does want the full-electric bed and inquired about bond differences. denies having preference of DME co, made aware [facility] [place] [facility], and states is okay w[place] [facility] and spoke w/Juancho. He states for the full-electric beds a one-time $150 payment is needed up-front that insurance does not cover. Then $79.64 will be billed monthly to insurance. If pt's deductible is met, pt will most likely owe $15-16/month after insurance goes through. If deductible is not met, pt could owe up to $79.64/month. Call placed back to pt's and she was made aware of above. Also discussed different mattresses for the bed, as pt has a Stage II pressure ulcer to his back. Per Juancho, they have low air-loss and alternating pressure mattresses. was made aware of these and chose the alternating pressure mattress. Per Juancho they do not have any full-electric beds in stock, he can order one today, but it will not be in until some time next week. made aware of this and states this is okay for delivery of this next week. She states will work on getting the money for the payment. She was made aware [facility] [place] be reaching out to her to discuss cost/payments. Call was also placed to [facility] earlier--they do not carry full-electric beds nor are they able to order them and [facility] would also not be able to get full electric bed until next week. Script obtained from Dr Gaitan for electric bed. Referral for bed [place] [facility] [place] [facility]. Cindi HAM RN CM
== END 2022-08-30 13:38 | disposition home health service (06) | DRG 377 ==
LOC: ED 08-26 01:39 → PCU 08-26 06:13
PROVIDERS: Anesthesiology; Internal Medicine; Surgery; Admitting Provider Hospitalist; Emergency Provider Emergency Medicine; PCP Family Medicine
PROC: 0DJD8ZZ Inspection of Lower Intestinal Tract, Via Natural or Artificial Opening Endoscopic (ICD-10-PCS; CPT 45378; principal; 2022-08-28 15:55)
DX: D62 Acute posthemorrhagic anemia (principal); C79.51 Secondary malignant neoplasm of bone; C79.89 Secondary malignant neoplasm of other specified sites; L89.103 Pressure ulcer of unspecified part of back, stage 3; L89.152 Pressure ulcer of sacral region, stage 2; E11.51 Type 2 diabetes mellitus with diabetic peripheral angiopathy without gangrene; Z93.1 Gastrostomy status; Z89.422 Acquired absence of other left toe(s); J15.0 Pneumonia due to Klebsiella pneumoniae; J15.212 Pneumonia due to Methicillin resistant Staphylococcus aureus; I69.351 Hemiplegia and hemiparesis following cerebral infarction affecting right dominant side; N17.9 Acute kidney failure, unspecified; I13.0 Hypertensive heart and chronic kidney disease with heart failure and stage 1 through stage 4 chronic kidney disease, or unspecified chronic kidney disease; I50.32 Chronic diastolic (congestive) heart failure; E11.22 Type 2 diabetes mellitus with diabetic chronic kidney disease; E11.40 Type 2 diabetes mellitus with diabetic neuropathy, unspecified; I48.91 Unspecified atrial fibrillation; K56.41 Fecal impaction; C43.30 Malignant melanoma of unspecified part of face; J14 Pneumonia due to Hemophilus influenzae; E87.1 Hypo-osmolality and hyponatremia; N39.0 Urinary tract infection, site not specified; I25.10 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of native coronary artery without angina pectoris; E87.5 Hyperkalemia; E78.5 Hyperlipidemia, unspecified; N18.2 Chronic kidney disease, stage 2 (mild); K21.9 Gastro-esophageal reflux disease without esophagitis; I69.391 Dysphagia following cerebral infarction; I69.320 Aphasia following cerebral infarction; D63.1 Anemia in chronic kidney disease; T17.918A Gastric contents in respiratory tract, part unspecified causing other injury, initial encounter; X58.XXXA Exposure to other specified factors, initial encounter; B96.1 Klebsiella pneumoniae [K. pneumoniae] as the cause of diseases classified elsewhere; Z95.1 Presence of aortocoronary bypass graft; Z79.01 Long term (current) use of anticoagulants; Z79.82 Long term (current) use of aspirin; Z79.891 Long term (current) use of opiate analgesic; Z79.899 Other long term (current) drug therapy; R13.10 Dysphagia, unspecified; K92.1 Melena
CPT/HCPCS: 43235; 45378; 36415; 36430; 71045; 74176; 80048; 80053; 81001; 82550; 82607; 82728; 82962; 83540; 83550; 83605; 85014; 85018; 85025; 85045; 85610; 85730; 86850; 86900; 86901; 86920; 86922; 87040; 87428; 92526; 92610; 93005; 96365; 96366; 96367; 96375; 97110; 97162; 97166; 97530; 97535; 97802; 97803; 99221; 99285; J7040; J7050; J7120; P9016; A4216; G0378; J2405

== ENCOUNTER 2022-09-09 10:21 | Inpatient (IN) | payer MEDICARE, MEDICAID, SELFPAY ==
[2022-09-09 10:22] VITALS: BP 140/76; PULSE 51; RESP 12; TEMP 36.6; O2SAT 97; BMI 20.8
[2022-09-09 11:07] LABS: Absolute Lymphocyte Count 0.59 X10^3/uL (0.83-4.51); Absolute Neutrophil Count 7.3 X10^3/uL (2.0-7.7); Basophil# 0.05 X10^3/uL; Basophil% 0.5 % (0-1); Eosinophil# 0.35 X10^3/uL; Eosinophils% 3.7 % (0-5); Hematocrit 27.7 % (40-54); Hemoglobin 9.2 g/dL (13.0-16.5); Lymphocyte # 0.59 X10^3/ul (0.83-4.51); Lymphocyte % 6.2 % (19-41); Mean Corp Hgb Conc 33.2 g/dL (32-36); Mean Corpuscular Hgb 29.1 pg (27.0-32.0); Mean Corpuscular Volume 87.7 fL (80-94); Mean Platelet Vol. 10.4 fl (6.2-12.0); Monocyte# 1.12 X10^3/uL; Monocyte% 11.7 % (0-10); NRBC Flagged by Analyzer 0 % (0-5); Neutrophil # 7.31 X10^3/uL (2.7-7.7); Neutrophil % 76.2 % (47-70); POSITIVE DIFFERENTIAL YES; Platelet Count 326 K/mm3 (150-450); RBC Distribution Width CV 14.8 % (11.6-14.6); RBC Distribution Width SD 47.6 fl (35.1-43.9); Red Blood Count 3.16 M/mm3 (4.6-6.2); White Blood Count 9.6 K/mm3 (4.4-11.0)
[2022-09-09 11:08] LABS: Differential Indicated SCAN CRITERIA MET
[2022-09-09 11:16] LABS: International Normalized Ratio 1.3; Prothrombin Time (Protime)PT. 15.9 SECONDS (11.7-14.9)
[2022-09-09 11:17] LABS: Partial Thromboplast Time 38.4 Seconds (24.1-36.2)
[2022-09-09 11:25] LABS: BUN 53 mg/dL (7-18); BUN/Creat Ratio 68.1 RATIO (10-20); Creatinine, Serum 0.78 mg/dL (0.70-1.30); EST Glomerular Filtration Rate 107 mL/min (>60); Est Glom Filt Rate - Afr Amer 129 mL/min (>60); Estimated Creatinine Clearance 91.62 ml/min; Glucose 187 mg/dL (74-106)
--- NOTE | 2022-09-09 11:25 | EDS_ITS ---
HPI History of Present Illness Chief Complaint: GI Bleed Detail of Chief Complaint: Blood mixed with stool Informant: SNF Onset/Context/Timing Onset: - (Uncertain) Context: - (Unknown) Timing: - (Unknown) Quality: Maroon-red blood mixed with stool Location: GI Current Severity: Unknown Maximum Severity: Unknown Worsened by: Patient is on a baby aspirin and reduced dose of apixaban Relieved by: Presumed nothing Associated Symptoms Associated Symptoms: Unable to determine Narrative Narrative: Patient is a 62-year-old male who presents from nursing facility. Patient answers yes to every question asked. He does not know his age, month, date of etc. [facility] Medical History Abdominal pain Acute bronchitis RAFA (acute kidney injury) Alcohol abuse Anemia Aspiration into airway Atherosclerosis of coronary artery without angina pectoris 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[place] coronary artery w/angina pectoris Bacteremia Bone cancer Bradycardia Cataracts, both eyes Cerebral arteriosclerosis with history of previous cerebrovascular accident Charcot's joint, left ankle and foot Chronic anemia Chronic anticoagulation Chronic diastolic (congestive) heart failure Chronic pain Diabetes mellitus, type II Diabetic retinopathy Diastolic dysfunction with acute on chronic heart failure Dysphagia Essential hypertension GERD (gastroesophageal reflux disease) Hammer toe of left foot History of embolic stroke HLD (hyperlipidemia) Hyponatremia Infection of left foot Iron deficiency anemia Malignant neoplasm of parotid gland Metastatic squamous cell carcinoma 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 MSSA bacteremia Nephrotic syndrome Neuropathy Non-smoker Normocytic anemia Obesity (BMI 30.0-34.9) Osteomyelitis PAD (peripheral artery disease) Postoperative atrial fibrillation (06/12/18) 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) Secondary pulmonary arterial hypertension Sinus bradycardia Syncope Type 2 diabetes mellitus Ulcer of left foot UTI (urinary tract infection) Home Medications nitroglycerin 0.4 mg sublingual tablet 0.4 mg sublingual Q5M PRN Cardiac/Chest Pain #25 tabs 10/17/18 [Rx Last Taken 08/08/19] blood ketone glucose monitor #1 ea 06/06/21 [History Last Taken Unknown] lancets #100 ea 06/06/21 [History Last Taken Unknown] pembrolizumab 25 mg/mL intravenous solution (Keytruda) 25 mg IV .UD CANCER 09/13/21 [History Last Taken 06/06/22] acetaminophen 650 mg rectal suppository 650 mg [place] Q4H PRN PRN Fever 08/10/22 [History Last Taken Unknown] lactose-reduced food with fiber 0.06 gram-1.5 kcal/mL oral liquid (Jevity 1.5 Minor) 250 ml G-tube 5X/DAY #0 mL 08/17/22 [Rx Last Taken Unknown] methadone 5 mg tablet 5 mg PO QHS PAIN, metastatic CA 5 days #5 tabs 08/17/22 [Rx Last Taken 06/13/22] tamsulosin 0.4 mg capsule 0.4 mg PO QHS prostate 30 days #30 caps 08/17/22 [Rx Last Taken 06/13/22] allopurinol 100 mg tablet 100 mg feeding tube DAILY gout #30 tabs 08/30/22 [Rx Last Taken 06/13/22] amlodipine 10 mg tablet 10 mg feeding tube DAILY bp #30 tabs 08/30/22 [Rx Last Taken Unknown] apixaban 2.5 mg tablet (Eliquis) 2.5 mg feeding tube BID 30 days #60 tabs 08/30/22 [Rx Last Taken Unknown] aspirin 81 mg tablet,delayed release 81 mg feeding tube DAILY heart health #30 tabs 08/30/22 [Rx Last Taken 06/13/22] atorvastatin 40 mg tablet 40 mg feeding tube QHS cholesterol #90 tabs 08/30/22 [Rx Last Taken 06/13/22] baclofen 5 mg oral granules in packet 5 mg feeding tube TID PRN Muscle Spasm #90 ea 08/30/22 [Rx Last Taken Unknown] bisacodyl 10 mg rectal suppository 10 mg [place] DAILY PRN Constipation #12 ea 08/30/22 [Rx Last Taken Unknown] carvedilol 12.5 mg tablet 12.5 mg G-tube BID #60 tabs 08/30/22 [Rx Last Taken Unknown] doxazosin 4 mg tablet 4 mg feeding tube QHS BPH 30 days #30 tabs 08/30/22 [Rx Last Taken Unknown] ergocalciferol (vitamin D2) 1,250 mcg (50,000 unit) capsule 1,250 mcg feeding tube SA SUPPLEMENT #7 caps 08/30/22 [Rx Last Taken 06/09/22] ferrous fumarate 324 mg (106 mg iron) tablet (Ferrocite) 324 mg feeding tube BID supplement #60 tabs 08/30/22 [Rx Last Taken 06/13/22] furosemide 40 mg tablet 40 mg feeding tube QHS water 30 days #30 tabs 08/30/22 [Rx Last Taken 06/13/22] hydralazine 50 mg tablet 50 mg feeding tube TID 90 days #270 tabs 08/30/22 [Rx Last Taken 06/13/22] lansoprazole 30 mg capsule,delayed release 30 mg feeding tube DAILY #60 caps 08/30/22 [Rx Last Taken Unknown] oxycodone 10 mg tablet 10 mg feeding tube Q4H PRN Pain 3 days #1 TAB 08/30/22 [Rx Last Taken 06/14/22 06:00] polyethylene glycol 3350 17 gram oral powder packet 17 g G-tube BID 30 days #30 ea 08/30/22 [Rx Last Taken Unknown] sennosides 8.6 mg-docusate sodium 50 mg tablet (Senexon-S) 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 #30 tabs 08/30/22 [Rx Last Taken Unknown] Allergy/AdvReac Type Severity Reaction Status Date / Time banana Allergy Intermediate Swelling Verified 08/16/22 17:48 Penicillins [PCN] Allergy Unknown Verified 06/29/22 15:08 morphine AdvReac Mild confusion Verified 06/29/22 15:08 Family History Mother Diabetes Parkinson disease Grandmother Cancer Surgical History Amputated toe of left foot (08/2018) H/O coronary artery bypass surgery (06/12/18) H/O eye surgery History of left heart catheterization (05/20/18) Hx of CABG Hx of cholecystectomy S/P meniscectomy Social History household members: spouse Smoking Status: Never smoker alcohol intake: current alcohol intake frequency: a few times a week substance use type: does not use caffeine: No ROS ROS ED Review of Systems ROS Unobtainable: due to mental status EXAM Physical Exam Const Vital Signs: 09/09/22 10:22 Temperature 98 F Temperature Source Temporal Pulse Rate 51 L Respiratory Rate 12 Blood Pressure 140/76 H Blood Pressure Mean 97 Pulse Ox 97 Oxygen Delivery Method Room Air Positive well nourished and well developed General Appearance ED: well developed, NAD and pallor; Negative for cyanotic or diaphoretic HEENT Reports moist mucous membranes HEENT Narrative: Head is atraumatic normocephalic. Ears are normal. Nares patent without discharge. Uvula is midline. Eyes PERRL and EOMs intact bilaterally General Eye ED: Negative for pale conjunctiva or scleral icterus Neck no lymphadenopathy, supple and no JVD Resp normal respiratory effort and clear to auscultation bilaterally Cardio regular rhythm, S1 normal heart sound, S2 normal heart sound and no murmurs Rate: bradycardia GI normal to inspection, nondistended, normoactive bowel sounds, non-tender, non- distended and no masses; Negative for hepatosplenomegaly GI Narrative: There are no visible hemorrhoids or fissures. There were no palpable masses on rectal exam. Patient has red-maroon blood mixed with his stool. Anoscopy was performed. There is blood coming above the scope suspect this is a lower GI bleed. Because of the amount of stool in his rectum unable to determine if he does have internal or external hemorrhoids, which have not prolapse. Palpation: soft Rectal Exam: normal sphincter tone and prostate normal Narrative: Normal external genitalia. Patient has indwelling Zhu. Back/Spine no CVA tenderness Extremity General Extremety ED: Negative for edema or tenderness General Extremity: Negative for edema Neuro No oriented x3 and CN's II-XII intact bilaterally Neuro Narrative: He moves all extremities. Sensorium / Orientation: Negative for alert Psych Psych Narrative: Mood and affect are flat and depressed respectively. Skin no rashes or lesions noted, no wounds and No skin turgor normal General Skin Exam: pallor; Negative for elasticity normal or jaundice MDM MDM MDM Narrative Medical decision making narrative: Patient with GI bleed on aspirin and anticoagulant. CBC, coags and BMP were obtained. He was typed and screened. Heart rate is slow. EKG confirms he is bradycardic. Will obtain EKG to rule out ischemia. He is not hypotensive. History & Record Review Discussion w/independent historian: Unable to obtain Additional record(s) reviewed:: Prior inpatient record (Patient's had multiple admissions for GI bleed.) Lab Data Attestation: I reviewed the patient's lab results. Lab results narrative: H&H is 9.2 and 27.7 which is baseline. Patient's BUN to creatinine ratio is markedly elevated and abnormal compared to prior. Coags are elevated since he is on a Bactroban. Labs: Laboratory Results - last 24 hr 09/09/22 09/09/22 09/09/22 10:35 10:35 10:35 WBC 9.6 RBC 3.16 L Hgb 9.2 L Hct 27.7 L MCV 87.7 MCH 29.1 MCHC 33.2 RDW Std Deviation 47.6 H RDW Coeff of Dipti 14.8 H Plt Count 326 MPV 10.4 Immature Gran % (Auto) 1.700 H Neut % (Auto) 76.2 H Lymph % (Auto) 6.2 L [place] % (Auto) 11.7 H Eos % (Auto) 3.7 Baso % (Auto) 0.5 Absolute Neuts (auto) 7.3 Absolute Lymphs (auto) 0.59 L Nucleated RBC % 0 PT 15.9 H INR 1.3 APTT 38.4 H Sodium 137 Potassium 4.1 Chloride 106 Carbon Dioxide 25.0 Anion Gap 6 BUN 53 H Creatinine 0.78 Estim Creat Clear Calc 91.62 Est GFR (MDRD) Af Amer 129 Est GFR (MDRD) Non-Af 107 BUN/Creatinine Ratio 68.1 H Glucose 187 H Calcium 7.5 L Total Bilirubin 0.30 AST 17 ALT 30 Alkaline Phosphatase 149 H Total Protein 6.2 L Albumin 2.1 L Globulin 4.1 Albumin/Globulin Ratio 0.5 L Blood Type Antibody Screen 09/09/22 10:35 WBC RBC Hgb Hct MCV MCH MCHC RDW Std Deviation RDW Coeff of Dipti Plt Count MPV Immature Gran % (Auto) Neut % (Auto) Lymph % (Auto) [place] % (Auto) Eos % (Auto) Baso % (Auto) Absolute Neuts (auto) Absolute Lymphs (auto) Nucleated RBC % PT INR APTT Sodium Potassium Chloride Carbon Dioxide Anion Gap BUN Creatinine Estim Creat Clear Calc Est GFR (MDRD) Af Amer Est GFR (MDRD) Non-Af BUN/Creatinine Ratio Glucose Calcium Total Bilirubin AST ALT Alkaline Phosphatase Total Protein Albumin Globulin Albumin/Globulin Ratio Blood Type A POSITIVE Antibody Screen NEGATIVE EKG Initial EKG: Interpretation: Sinus Bradycardia (Rate is 56. Other than the sinus bradycardia the EKG is normal. [place] interval is 196 ms. QRS duration 80 ms. QT duration 474 ms. [place] is normal.) Treatment and Re-Evaluation :: Patient require admission and his aspirin and Eliquis will need to be held. He has seen general surgery as well as GI for prior admissions. Procedures Other Procedures Procedure(s): Anoscopy was performed. The findings were noted in the MDM portion of the chart Discharge Plan Dx/Rx/DC Orders Clinical Impression: Acute gastrointestinal bleeding, Altered mental status, Essential hypertension, HLD (hyperlipidemia), H/O coronary artery bypass surgery, Anticoagulant long- term use, Bradycardia, sinus Disposition Disposition: Acute Care Hospital [facility]
[2022-09-09 11:26] LABS: ALB/GLOB Ratio 0.5 RATIO (0.9-2.4); AST(SGOT) 17 U/L (15-37); Alanine Aminotransfer ALT/SGPT 30 U/L (16-61); Albumin, Serum 2.1 g/dL (3.2-5.0); Alkaline Phosphatase 149 U/L (45-117); Anion Gap 6 (5-15); Calcium,Total 7.5 mg/dL (8.5-10.1); Chloride 106 mmol/L (98-107); Globulin 4.1 g/dL (2.2-4.2); Potassium 4.1 mmol/L (3.5-5.1); Protein, Total 6.2 g/dL (6.4-8.2); Sodium Level 137 mmol/L (136-145)
[2022-09-09] MEDS: 0.9% Normal Saline 1,000 ML 150 ML IV ×2 (11:51→16:34)
[2022-09-09 11:53] VITALS: BP 155/75; PULSE 54; RESP 18; TEMP 36.6; O2SAT 96
--- NOTE | 2022-09-09 12:33 | PCM.HP.STD ---
HPI - General General Date of Admission: 09/09/22 Date of Service: 09/09/22 Chief Complaint: BRBPR HPI Narrative CLAY RUBIO, is a 62 M with metastatic renal cell carcinoma to the bone, A-fib, CAD status post CABG, CVA who presented to [facility] 09/09/2022 with BRBPR. He was recently admitted 2 weeks ago and discharged 08/30 after a similar presentation where he had upper and lower endoscopy with surgery but no bleeding diathesis was found. Given he was stable and hemoglobin stable he was discharged back on his Eliquis and aspirin. He had been in his usual health until about 9:00 when his noted bright red blood on his buttock and pad, she is unable to quantify this but endorses there is no stool and it was just blood. He was brought to the ED and his hemoglobin at this time is stable but has elevated BUN and there was maroon stool seen on anoscope with no bleeding diathesis seen in the ED and is likely too soon to see an effect on hemoglobin. Given his blood per rectum with history of recent bleed requiring transfusion hospitalist consulted for admission. In ED he was vitally stable and in no acute distress. Difficult to assess ROS as patient said yes to almost all questions without anything localized but possibly some lower abdominal pain. Prior to this does not note any acute changes, did receive his Eliquis this morning for bleeding was noted. COUNTS INCLUDE 234 BEDS AT THE [facility] Medical History Abdominal pain Acute bronchitis RAFA (acute kidney injury) Alcohol abuse Anemia Aspiration into airway Atherosclerosis of coronary artery without angina pectoris 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[place] coronary artery w/angina pectoris Bacteremia Bone cancer Bradycardia Cataracts, both eyes Cerebral arteriosclerosis with history of previous cerebrovascular accident Charcot's joint, left ankle and foot Chronic anemia Chronic anticoagulation Chronic diastolic (congestive) heart failure Chronic pain Diabetes mellitus, type II Diabetic retinopathy Diastolic dysfunction with acute on chronic heart failure Dysphagia Essential hypertension GERD (gastroesophageal reflux disease) Hammer toe of left foot History of embolic stroke HLD (hyperlipidemia) Hyponatremia Infection of left foot Iron deficiency anemia Malignant neoplasm of parotid gland Metastatic squamous cell carcinoma 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 MSSA bacteremia Nephrotic syndrome Neuropathy Non-smoker Normocytic anemia Obesity (BMI 30.0-34.9) Osteomyelitis PAD (peripheral artery disease) Postoperative atrial fibrillation (06/12/18) 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) Secondary pulmonary arterial hypertension Sinus bradycardia Syncope Type 2 diabetes mellitus Ulcer of left foot UTI (urinary tract infection) Home Medications nitroglycerin 0.4 mg sublingual tablet 0.4 mg sublingual Q5M PRN Cardiac/Chest Pain #25 tabs 10/17/18 [Rx Last Taken 08/08/19] pembrolizumab 25 mg/mL intravenous solution (Keytruda) 25 mg IV .UD CANCER 09/13/21 [History Last Taken 06/06/22] acetaminophen 650 mg rectal suppository 650 mg CO Q4H PRN PRN Fever 08/10/22 [History Last Taken Unknown] tamsulosin 0.4 mg capsule 0.4 mg PO QHS prostate 30 days #30 caps 08/17/22 [Rx Last Taken 09/08/22] allopurinol 100 mg tablet 100 mg feeding tube DAILY gout #30 tabs 08/30/22 [Rx Last Taken 09/08/22] amlodipine 10 mg tablet 10 mg feeding tube DAILY bp #30 tabs 08/30/22 [Rx Last Taken 09/09/22] apixaban 2.5 mg tablet (Eliquis) 2.5 mg feeding tube BID 30 days #60 tabs 08/30/22 [Rx Last Taken 09/09/22] aspirin 81 mg tablet,delayed release 81 mg feeding tube DAILY heart health #30 tabs 08/30/22 [Rx Last Taken 09/09/22] atorvastatin 40 mg tablet 40 mg feeding tube QHS cholesterol #90 tabs 08/30/22 [Rx Last Taken 09/08/22] baclofen 5 mg oral granules in packet 5 mg feeding tube TID PRN Muscle Spasm #90 ea 08/30/22 [Rx Last Taken Unknown] bisacodyl 10 mg rectal suppository 10 mg CO DAILY PRN Constipation #12 ea 08/30/22 [Rx Last Taken 1 Week Ago ~09/02/22] carvedilol 12.5 mg tablet 12.5 mg G-tube BID #60 tabs 08/30/22 [Rx Last Taken 09/09/22] doxazosin 4 mg tablet 4 mg feeding tube QHS BPH 30 days #30 tabs 08/30/22 [Rx Last Taken 09/08/22] ergocalciferol (vitamin D2) 1,250 mcg (50,000 unit) capsule 1,250 mcg feeding tube SA SUPPLEMENT #7 caps 08/30/22 [Rx Last Taken 09/08/22] furosemide 40 mg tablet 40 mg feeding tube QHS water 30 days #30 tabs 08/30/22 [Rx Last Taken 09/08/22] hydralazine 50 mg tablet 50 mg feeding tube TID 90 days #270 tabs 08/30/22 [Rx Last Taken 09/09/22] lansoprazole 30 mg capsule,delayed release 30 mg feeding tube DAILY #60 caps 08/30/22 [Rx Last Taken 09/09/22] oxycodone 10 mg tablet 10 mg feeding tube Q4H PRN Pain 3 days #1 TAB 08/30/22 [Rx Last Taken 09/09/22] polyethylene glycol 3350 17 gram oral powder packet 17 g G-tube BID 30 days #30 ea 08/30/22 [Rx Last Taken 09/08/22] sennosides 8.6 mg-docusate sodium 50 mg tablet (Senexon-S) 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 #30 tabs 08/30/22 [Rx Last Taken 09/08/22] lisinopril 20 mg tablet 20 mg PO BID HTN 09/09/22 [History Last Taken 09/09/22] methadone 5 mg tablet 5 mg PO BID PAIN, metastatic CA 09/09/22 [History Last Taken 09/09/22] metoprolol tartrate 25 mg tablet 25 mg PO BID HTN 09/09/22 [History Last Taken 09/09/22] Allergy/AdvReac Type Severity Reaction Status Date / Time banana Allergy Intermediate Swelling Verified 08/16/22 17:48 Penicillins [PCN] Allergy Unknown Verified 06/29/22 15:08 morphine AdvReac Mild confusion Verified 06/29/22 15:08 Family History Mother Diabetes Parkinson disease Grandmother Cancer Surgical History Amputated toe of left foot (08/2018) H/O coronary artery bypass surgery (06/12/18) H/O eye surgery History of left heart catheterization (05/20/18) Hx of CABG Hx of cholecystectomy S/P meniscectomy Social History household members: spouse Smoking Status: Never smoker alcohol intake: current alcohol intake frequency: a few times a week substance use type: does not use caffeine: No ROS ROS Narrative Unable to obtain ROS as patient said yes to almost all questions but was unable to expand, possibly some abdominal pain but not localized. Vital Signs Vital Signs Vital Signs: 09/09/22 10:22 09/09/22 11:53 Temperature 98 F 97.8 F Temperature Source Temporal Temporal Pulse Rate 51 L 54 L Respiratory Rate 12 18 Blood Pressure 140/76 H 155/75 H Blood Pressure Mean 97 101 Pulse Ox 97 96 Oxygen Delivery Method Room Air Room Air Weight Weight: 67.7 kg Body Mass Index (BMI) 20.8 Physical Exam Narrative General: Awake, has difficulty answering questions which per 's baseline HEENT: Atraumatic, normocephalic Eyes: Anicteric, normal conjunctiva, extraocular movements grossly intact Neck: Supple Respiratory: Clear to auscultation bilaterally, normal respiratory effort Cardiovascular: Regular rate and rhythm GI: Soft, nondistended, does not seem to be tender to palpation, no rebound guarding or rigidity, rolled patient with help of and no blood on his depends or bottom appreciated Extremities: No edema Musculoskeletal: Moving extremities in bed Neuro: No overt focal neurological deficits Skin: No rashes appreciated Psych: Attempts to be cooperative Results Lab / Micro Data Result Diagrams: 09/09/22 10:35 09/09/22 10:35 Labs: Laboratory Results - last 24 hr 09/09/22 10:35: WBC 9.6, RBC 3.16 L, Hgb 9.2 L, Hct 27.7 L, MCV 87.7, MCH 29.1, MCHC 33.2, RDW Std Deviation 47.6 H, RDW Coeff of Dipti 14.8 H, Plt Count 326, MPV 10.4, Immature Gran % (Auto) 1.700 H, Neut % (Auto) 76.2 H, Lymph % (Auto) 6.2 L, [place] % (Auto) 11.7 H, Eos % (Auto) 3.7, Baso % (Auto) 0.5, Absolute Neuts (auto) 7.3, Absolute Lymphs (auto) 0.59 L, Nucleated RBC % 0 09/09/22 10:35: PT 15.9 H, INR 1.3, APTT 38.4 H 09/09/22 10:35: Sodium 137, Potassium 4.1, Chloride 106, Carbon Dioxide 25.0, Anion Gap 6, BUN 53 H, Creatinine 0.78, Estim Creat Clear Calc 91.62, Est GFR (MDRD) Af Amer 129, Est GFR (MDRD) Non-Af 107, BUN/Creatinine Ratio 68.1 H, Glucose 187 H, Calcium 7.5 L, Total Bilirubin 0.30, AST 17, ALT 30, Alkaline Phosphatase 149 H, Total Protein 6.2 L, Albumin 2.1 L, Globulin 4.1, Albumin/Globulin Ratio 0.5 L 09/09/22 10:35: Blood Type A POSITIVE, Antibody Screen NEGATIVE Assessment & Plan Assessment/Plan (1) ABLA (acute blood loss anemia): PLAN: Plan #Bright red blood per rectum/GI bleed -Hemoglobin 9.2 which is similar to discharge on 08/30 when it was 8.8 however had episode of bleeding 2 hours before this was drawn, anticipate it would be lower on recheck. -Unclear upper or lower, given it was red and not dark suspect could be lower but BUN is elevated so cannot rule out upper bleed either -Was recently admitted and had upper endoscopy by surgery that did not note diathesis of bleeding, lower endoscopy did not note any source of bleeding however prep was poor -Given patient's frailty do not think he would tolerate orthostats but is hypertensive while supine and vitally stable -GI consult as I suspect he will need repeat evaluation -2 units packed red blood cells placed on hold -H&H every 4 -IV PPI -Has tube feeds for nutrition, will hold -Hold Eliquis and aspirin -Did not check fecal occult as in ED maroon stool was seen on anoscope and given eliot blood earlier do not feel there is utility in checking this #Chronic dysphagia -On tube feeds -Given possible need for intervention holding at this time -Dietitian consult #Atrial fibrillation -Eliquis held #History of CAD status post CABG/left MCA CVA on 06/29 -Continue statin, holding aspirin and Eliquis -Continue beta-leonardo with holding parameters -Held lisinopril at this time in the event blood pressure drops but can resume if he remains stable #metastatic squamous cell carcinoma -Per oncology note 06/27, most likely from skin of face to right parotid gland and bones. #DVT ppx: SCDs Ashley Nowak MD Time spent in the patient's overall evaluation,decision-making process, review of diagnostic data, adjustment of management, discussion with other providers, nursing nursing and ancillary staff involved in patient's care documentation, 60 Minutes Charges/Coding Visit Charges Inpatient E&M: 40441 Init Hosp L2
[2022-09-09 13:32] VITALS: BP 138/62; PULSE 61; RESP 16; TEMP 36.4; O2SAT 98; BMI 25.0
[2022-09-09 14:13] LABS: Hemoglobin 9.1 g/dL (13.0-16.5)
[2022-09-09 16:36] VITALS: BP 120/56; PULSE 59; RESP 16; TEMP 36.6; O2SAT 94
[2022-09-09 17:37] LABS: Hemoglobin 8.3 g/dL (13.0-16.5)
[2022-09-09 21:19] LABS: Hemoglobin 8.7 g/dL (13.0-16.5)
[2022-09-09 21:39] VITALS: BP 139/57; PULSE 55; RESP 16; TEMP 36.7; O2SAT 97
[2022-09-09] MEDS: Atorvastatin Calcium 40 MG Tablet GT (22:01)
[2022-09-10] MEDS: 0.9% Normal Saline 1,000 ML 150 ML IV ×4 (00:07→21:42)
[2022-09-10 01:43] LABS: Hemoglobin 8.2 g/dL (13.0-16.5)
[2022-09-10 03:31] VITALS: BP 139/56; PULSE 57; RESP 12; TEMP 36.5; O2SAT 98
[2022-09-10 06:00] VITALS: BMI 25.0
[2022-09-10 06:20] LABS: Absolute Lymphocyte Count 0.59 X10^3/uL (0.83-4.51); Absolute Neutrophil Count 6.7 X10^3/uL (2.0-7.7); Basophil# 0.06 X10^3/uL; Basophil% 0.7 % (0-1); Eosinophil# 0.25 X10^3/uL; Eosinophils% 2.9 % (0-5); Hematocrit 27.7 % (40-54); Hemoglobin 8.4 g/dL (13.0-16.5); Lymphocyte # 0.59 X10^3/ul (0.83-4.51); Lymphocyte % 6.8 % (19-41); Mean Corp Hgb Conc 30.3 g/dL (32-36); Mean Corpuscular Volume 92.3 fL (80-94); Mean Platelet Vol. 10.2 fl (6.2-12.0); Monocyte# 0.99 X10^3/uL; Monocyte% 11.4 % (0-10); NRBC Flagged by Analyzer 0 % (0-5); Neutrophil # 6.65 X10^3/uL (2.7-7.7); Neutrophil % 76.5 % (47-70); POSITIVE DIFFERENTIAL YES; Platelet Count 318 K/mm3 (150-450); RBC Distribution Width CV 15.1 % (11.6-14.6); RBC Distribution Width SD 50.9 fl (35.1-43.9); White Blood Count 8.7 K/mm3 (4.4-11.0)
[2022-09-10 06:25] LABS: Differential Indicated SCAN CRITERIA MET
[2022-09-10 06:49] LABS: BUN 43 mg/dL (7-18); Estimated Creatinine Clearance 87.22 ml/min; Glucose 129 mg/dL (74-106)
[2022-09-10 06:50] LABS: ALB/GLOB Ratio 0.5 RATIO (0.9-2.4); AST(SGOT) 28 U/L (15-37); Alanine Aminotransfer ALT/SGPT 34 U/L (16-61); Albumin, Serum 2.4 g/dL (3.2-5.0); Alkaline Phosphatase 181 U/L (45-117); Anion Gap 7 (5-15); Anisocytosis 1+; BUN/Creat Ratio 54.1 RATIO (10-20); Calcium,Total 8.7 mg/dL (8.5-10.1); Chloride 105 mmol/L (98-107); EST Glomerular Filtration Rate 104 mL/min (>60); Est Glom Filt Rate - Afr Amer 126 mL/min (>60); Globulin 4.5 g/dL (2.2-4.2); Potassium 4.1 mmol/L (3.5-5.1); Protein, Total 6.9 g/dL (6.4-8.2); Sodium Level 138 mmol/L (136-145)
--- NOTE | 2022-09-10 07:35 | PN.HOSP_ITS ---
Reason for Visit Reason for Visit: Diagnoses Acute posthemorrhagic anemia (09/09/22) Subjective Subjective Patient per self and nursing staff although some difficulty given his aphasia but able to understand completely with lessening of bright red blood per rectum overnight but does state discomfort and points to the back and following clarification with patient's spouse he is supposed to be on not only scheduled methadone but on also scheduled oxycodone which had been placed initially at admission in the medication reconciliation section as as needed only therefore this was corrected with improvement. Did have endoscopies 2 weeks prior s econdary to similar presentation 2 weeks prior with no obvious source of bleeding with eventual resumption of both Eliquis and aspirin until recurrent bright red blood again. Patient denies fevers, chills, nausea, emesis, abdominal pain, chest pain or dyspnea. Objective Data Objective Data Vital Signs: Vital Signs Temp Pulse Resp BP Pulse Ox O2 Del Method 97.7 F L 57 L 12 139/56 H 98 Room Air 09/10/22 03:31 09/10/22 03:31 09/10/22 03:31 09/10/22 03:31 09/10/22 03:31 09/10/22 03:31 Oxygen Delivery Method Room Air Weight: 159 lb 2.78 oz Body Mass Index (BMI) 25.0 Intake & Output: Intake and Output for Last 24 Hours 09/08/22 09/09/22 09/10/22 23:59 23:59 23:59 Intake Total 1852.5 / 1912.5 1060 / 1060 Output Total 500 / 1025 1025 / 1025 Balance 1352.5 / 887.5 35 / 35 Lab / Micro Data Result Diagrams: 09/10/22 05:56 09/10/22 05:56 Labs: Laboratory Results - last 24 hr 09/09/22 10:35: WBC 9.6, RBC 3.16 L, Hgb 9.2 L, Hct 27.7 L, MCV 87.7, MCH 29.1, MCHC 33.2, RDW Std Deviation 47.6 H, RDW Coeff of Dipti 14.8 H, Plt Count 326, MPV 10.4, Immature Gran % (Auto) 1.700 H, Neut % (Auto) 76.2 H, Lymph % (Auto) 6.2 L , [place] % (Auto) 11.7 H, Eos % (Auto) 3.7, Baso % (Auto) 0.5, Absolute Neuts (auto) 7.3, Absolute Lymphs (auto) 0.59 L, Nucleated RBC % 0 09/09/22 10:35: PT 15.9 H, INR 1.3, APTT 38.4 H 09/09/22 10:35: Sodium 137, Potassium 4.1, Chloride 106, Carbon Dioxide 25.0, Anion Gap 6, BUN 53 H, Creatinine 0.78, Estim Creat Clear Calc 91.62, Est GFR (MDRD) Af Amer 129, Est GFR (MDRD) Non-Af 107, BUN/Creatinine Ratio 68.1 H, Glucose 187 H, Calcium 7.5 L, Total Bilirubin 0.30, AST 17, ALT 30, Alkaline Phosphatase 149 H, Total Protein 6.2 L, Albumin 2.1 L, Globulin 4.1, Albumin/Globulin Ratio 0.5 L 09/09/22 10:35: Blood Type A POSITIVE, Antibody Screen NEGATIVE 09/09/22 10:35: Crossmatch See Detail 09/09/22 13:55: Hgb 9.1 L 09/09/22 17:12: Hgb 8.3 L 09/09/22 21:13: Hgb 8.7 L 09/10/22 01:17: Hgb 8.2 L 09/10/22 05:56: WBC 8.7, RBC 3.00 L, Hgb 8.4 L, Hct 27.7 L, MCV 92.3 D, MCH 28.0, MCHC 30.3 L D, RDW Std Deviation 50.9 H, RDW Coeff of Dipti 15.1 H, Plt Count 318, MPV 10.2, Immature Gran % (Auto) 1.700 H, Neut % (Auto) 76.5 H, Lymph % (Auto) 6.8 L, [place] % (Auto) 11.4 H, Eos % (Auto) 2.9, Baso % (Auto) 0.7, Absolute Neuts (auto) 6.7, Absolute Lymphs (auto) 0.59 L, Nucleated RBC % 0, Anisocytosis 1+ 09/10/22 05:56: Sodium 138, Potassium 4.1, Chloride 105, Carbon Dioxide 26.0, Anion Gap 7, BUN 43 H, Creatinine 0.80, Estim Creat Clear Calc 87.22, Est GFR (MDRD) Af Amer 126, Est GFR (MDRD) Non-Af 104, BUN/Creatinine Ratio 54.1 H, Glucose 129 H, Calcium 8.7, Total Bilirubin 0.60, AST 28, ALT 34, Alkaline Phosphatase 181 H, Total Protein 6.9, Albumin 2.4 L, Globulin 4.5 H, Albumin/Globulin Ratio 0.5 L Physical Exam Narrative Physical Examination: General: Awake, alert, difficult orientation given patient prior stroke history with chronic aphasia but able to interact and understands, remains cooperative, laying in the PCU bed, reporting he does have pain to his back at this time. Skin: Normal color, normal turgor, no icterus, no cyanosis except for stasis ulcer to the coccyx as well as left lower back and right upper shoulder and in addition to right lateral plantar foot with no specific erythema or infected appearance HEENT: AT/NC, EOMI, PERRLA, mild dry MM. Lungs: Mildly diminished, greater bases, appropriate effort, no rales, ronchi or wheezing. Heart: Regular rate and rhythm; no gallop, rub audible. Abdomen: Soft, PEG tube in place NTTP, ND, mildly hyperactive BS Extremities: No cyanosis, clubbing, or edema. Neurological: Patient awake, alert, oriented as noted, cognitive function difficult to assess given aphasia but appears likely baseline intact; pupils equally reactive to light and accommodation, cranial nerves appear grossly normal, chronic right-sided hemiplegia status post prior CVA, chronic indwelling catheter as well as PEG tube as previously noted, strength accordingly severely globally decreased. Psychiatric: Affect appears fatigued otherwise normal, no acute evidence of depressive or anxiety feelings. Assessment & Plan Assessment/Plan (1) Acute gastrointestinal bleeding: PLAN: Plan The patient is a 62 y/o M w/ PMHx: Former EtOH abuse, PAD, Hx CVA w/ chronic aphasia/chronic dysphagia/R sided hemiplegia, Chronic Diastolic CHF, HTN, HLD, C AD, Hx post-operative PAF prior, Chronic normocytic anemia/Fe deficiency anemia, Chronic pain syndrome on chronic BID methadone and scheduled oxycodone, Diabetes mellitus type II, recent discharge 08/30/22 following admission for GI bleed without obvious source identified who now re-presents to the [facility] ED on 09/09/22 with recurrent bright red blood per rectum with ED initial evaluation with stable hemoglobin however he had elevated BUN and maroon stool on anoscope in the ED. #1. Acute GI Bleed w/ resultant Acute on Chronic Normocytic anemia/Fe deficiency anemia: Recent discharge 08/30/2022 with evaluation at that time per general surgery with endoscopies with no obvious source of bleeding, readmitted to PCU, 2 unit PRBC ordered and placed on hold at admission, cycling H&H's but has remained stable with admission Hgb 9.2-->09/10/22 Hgb most recent 8.4, IV PPI initiated, tube feeds held as well as patient aspirin and Eliquis transiently held, gastroenterology consulted and aware with planned evaluation. Of note given prior reported history of alcohol abuse most recent imaging 08/26/2022 d emonstrates an unremarkable and an unenhanced appearance of the liver, held immediate administration of IV Rocephin as also no noted aggressive findings on most recent endoscopies but will defer to gastroenterology. #2. History CVA with chronic aphasia/chronic dysphagia/right-sided hemiplegia: Patient chronically on tube feeds which have been held, dietitian consulted given history, holding aspirin, Eliquis, continue home hypertensive regimen as BP allows given presentation and continue statin therapy, maintain on fall and aspiration precautions, PT/OT/speech therapy consulted as well as case management for discharge planning. #3. Chronic stasis 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: Discussed with staff and orders placed for aggressive offloading, barrier cream as well as dressings as needed and attempting to obtain soft protective sponge heel boots. #4. Chronic diastolic CHF: 04/17/2022 echocardiogram with normal LV systolic function, EF 65%, mild concentric LVH, mildly enlarged LA, trivial MVI, trivial TVI, RVSP unable to be assessed during that study secondary to technical difficulties and diastolic function was indeterminate. Judiciously hydrate g iven history, holding aspirin and patient Eliquis, continue patient home Coreg, lisinopril, metoprolol, hydralazine and Lasix regimen as well as statin therapy, adjust BP regimen as needed. #5. Chart reported history of Diabetes mellitus type II: Per medication regimen not on any diabetic medications, will obtain hemoglobin A1c and hold off on insulin sliding scale with Accu-Cheks pending these results. Currently tube feeds are held. #6. Chronic pain syndrome: We will continue patient home chronic methadone as well as scheduled short acting oxycodone, encourage offloading and positional c hanges to assist in pain. #7. Hypertension: Continue home regimen including amlodipine, Coreg, Lasix, hydralazine, lisinopril, metoprolol home regimen with low threshold to hold if hypotensive given presentation, PRN hydralazine. #8. Hyperlipidemia: We will continue patient on statin therapy. #9. Hx Post-operative PAF: We will continue metoprolol, holding home Eliquis given presentation as noted. #10. Chart reported history former alcohol use: Reportedly sober, certainly could complicate presentation, encourage sobriety continuation #11. CAD, PAD: Status post prior bypass surgery, holding aspirin, Eliquis, continue lisinopril and metoprolol as BP allows as well as home statin therapy. #12. Gout: We will continue patient home allopurinol regimen. #13. BPH: We will continue patient home Flomax and doxazosin regimen. #14. DVT prophylaxis: SCDs. Holding home eliquis given presentation as noted. #15. CODE status: Full Code. Admission Evaluation Time spent evaluating chart, patient history, patient evaluation, care planning and discussion with specialists: 30 minutes. Charges/Coding Visit Charges Inpatient E&M: 96951 Init Hosp L2
[2022-09-10 09:45] VITALS: BP 173/70; PULSE 60; RESP 18; TEMP 37.1; O2SAT 97
[2022-09-10 09:47] VITALS: PULSE 60
[2022-09-10] MEDS: Metoprolol Tartrate 25 MG Tablet 12.5 MG GT (09:47)
[2022-09-10] MEDS: Allopurinol 100 MG Tablet GT (09:47)
[2022-09-10] MEDS: oxyCODONE 5 MG Tablet 10 MG GT ×3 (12:38→21:46)
[2022-09-10 12:53] VITALS: BP 163/67; PULSE 66; RESP 18; TEMP 36.9; O2SAT 97
[2022-09-10 16:45] VITALS: BP 133/55; PULSE 72; RESP 16; TEMP 36.6; O2SAT 97
--- NOTE | 2022-09-10 19:07 | CON.PCM.GI_ITS ---
HPI Consult Data Date of Consult: 09/10/22 HPI Narrative Reason for Consultation: GI bleed HPI Narrative: CLAY RUBIO, is a 62 M who presents back to the ED with lower GI bleed. He was recently admitted 2 weeks ago and discharged 08/30 after a similar presentation where he had upper and lower endoscopy with surgery but no bleeding diathesis was found.? Given he was stable and hemoglobin stable he was discharged back on his Eliquis and aspirin.? He had been in his usual health until about 9:00 when his noted bright red blood on his buttock and pad, she is unable to quantify this but endorses there is no stool and it was just blood.? I was asked to see him for lower GI bleeding. He was brought to the ED and his hemoglobin at this time is stable but has elevated BUN and there was maroon stool seen on anoscope with no bleeding diathesis seen in the ED and is likely too soon to see an effect on hemoglobin.? He also has a history of head and neck skin cancer. He was found to have diffuse bony metastasis on bone scan done on December 23, 2020.? Biopsy of the right acetabulum on 01/12/2021 showed metastatic squamous cell carcinoma.? CT chest abdomen and pelvis with IV contrast obtained 01/20/2021 at [facility] demonstrated numerous osseous lytic lesions, (particularly in the right scapula right ischial ramus, proximal left femur), poorly defined hypoattenuating lesions within the liver and spleen, several scattered irregular subpleural nodular opacities in the lung more pronounced in the right upper lobe right lung apex measuring up to 8 mm (described as indeterminate), diffuse urinary bladder wall thickening most pronounced anteriorly. A PET scan on 03/16/2021 showed hypermetabolic activity in the right parotid mass with extensive metastatic disease in the bones.? Biopsy of right parotid gland on 03/27/2021 confirmed squamous cell carcinoma with high tumor mutational burden and PD-L1 positive.? He received palliative radiation to right hip in March 2021, finished on 04/12/2021. He started Keytruda on 05/03/2021 and received the third cycle on 06/15/2021 at [facility].? He transferred his therapy to [facility] prior to the fourth cycle of pembrolizumab, received the 4th cycle on 07/05/2021.? CT soft tissue neck, chest, abdomen and pelvis with contrast obtained August 24, 2021 at [facility] demonstrated diffuse hepatic metastasis, diffuse metastasis involving appendicular as well as axial skeleton, and small supraclavicular lymph nodes.? PET/CT performed 11/01/2021 showed partial response to treatment evidenced by hypodense lesions throughout the liver and diffuse osseous sclerosis of axial skeleton- both without hypermetabolic activity.? Completed 3 doses of weekly Venofer 300 mg 01/10/22-01/24/22.? He remains on Keytruda, comes for C21. Feels well, saw PT for back pain and problems with posture, helping. Was in [facility] for adenovirus infection from 06/14/2022-06/17/2022. [facility] Medical History Abdominal pain Acute bronchitis RAFA (acute kidney injury) Alcohol abuse Anemia Aspiration into airway Atherosclerosis of coronary artery without angina pectoris 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[place] coronary artery w/angina pectoris Bacteremia Bone cancer Bradycardia Cataracts, both eyes Cerebral arteriosclerosis with history of previous cerebrovascular accident Charcot's joint, left ankle and foot Chronic anemia Chronic anticoagulation Chronic diastolic (congestive) heart failure Chronic pain Diabetes mellitus, type II Diabetic retinopathy Diastolic dysfunction with acute on chronic heart failure Dysphagia Essential hypertension GERD (gastroesophageal reflux disease) Hammer toe of left foot History of embolic stroke HLD (hyperlipidemia) Hyponatremia Infection of left foot Iron deficiency anemia Malignant neoplasm of parotid gland Metastatic squamous cell carcinoma 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 MSSA bacteremia Nephrotic syndrome Neuropathy Non-smoker Normocytic anemia Obesity (BMI 30.0-34.9) Osteomyelitis PAD (peripheral artery disease) Postoperative atrial fibrillation (06/12/18) 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) Secondary pulmonary arterial hypertension Sinus bradycardia Syncope Type 2 diabetes mellitus Ulcer of left foot UTI (urinary tract infection) Home Medications nitroglycerin 0.4 mg sublingual tablet 0.4 mg sublingual Q5M PRN Cardiac/Chest Pain #25 tabs 10/17/18 [Rx Last Taken 08/08/19] pembrolizumab 25 mg/mL intravenous solution (Keytruda) 25 mg IV .UD CANCER 09/13/21 [History Last Taken 06/06/22] acetaminophen 650 mg rectal suppository 650 mg AK Q4H PRN PRN Fever 08/10/22 [History Last Taken Unknown] tamsulosin 0.4 mg capsule 0.4 mg PO QHS prostate 30 days #30 caps 08/17/22 [Rx Last Taken 09/08/22] allopurinol 100 mg tablet 100 mg feeding tube DAILY gout #30 tabs 08/30/22 [Rx Last Taken 09/08/22] amlodipine 10 mg tablet 10 mg feeding tube DAILY bp #30 tabs 08/30/22 [Rx Last Taken 09/09/22] apixaban 2.5 mg tablet (Eliquis) 2.5 mg feeding tube BID 30 days #60 tabs 08/30/22 [Rx Last Taken 09/09/22] aspirin 81 mg tablet,delayed release 81 mg feeding tube DAILY heart health #30 tabs 08/30/22 [Rx Last Taken 09/09/22] atorvastatin 40 mg tablet 40 mg feeding tube QHS cholesterol #90 tabs 08/30/22 [Rx Last Taken 09/08/22] baclofen 5 mg oral granules in packet 5 mg feeding tube TID PRN Muscle Spasm #90 ea 08/30/22 [Rx Last Taken Unknown] bisacodyl 10 mg rectal suppository 10 mg AK DAILY PRN Constipation #12 ea 08/30/22 [Rx Last Taken 1 Week Ago ~09/02/22] carvedilol 12.5 mg tablet 12.5 mg G-tube BID #60 tabs 08/30/22 [Rx Last Taken 09/09/22] doxazosin 4 mg tablet 4 mg feeding tube QHS BPH 30 days #30 tabs 08/30/22 [Rx Last Taken 09/08/22] ergocalciferol (vitamin D2) 1,250 mcg (50,000 unit) capsule 1,250 mcg feeding tube SA SUPPLEMENT #7 caps 08/30/22 [Rx Last Taken 09/08/22] furosemide 40 mg tablet 40 mg feeding tube QHS water 30 days #30 tabs 08/30/22 [Rx Last Taken 09/08/22] hydralazine 50 mg tablet 50 mg feeding tube TID 90 days #270 tabs 08/30/22 [Rx Last Taken 09/09/22] lansoprazole 30 mg capsule,delayed release 30 mg feeding tube DAILY #60 caps 08/30/22 [Rx Last Taken 09/09/22] oxycodone 10 mg tablet 10 mg feeding tube Q4H PRN Pain 3 days #1 TAB 08/30/22 [Rx Last Taken 09/09/22] polyethylene glycol 3350 17 gram oral powder packet 17 g G-tube BID 30 days #30 ea 08/30/22 [Rx Last Taken 09/08/22] sennosides 8.6 mg-docusate sodium 50 mg tablet (Senexon-S) 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 #30 tabs 08/30/22 [Rx Last Taken 09/08/22] lisinopril 20 mg tablet 20 mg PO BID HTN 09/09/22 [History Last Taken 09/09/22] methadone 5 mg tablet 5 mg PO BID PAIN, metastatic CA 09/09/22 [History Last Taken 09/09/22] metoprolol tartrate 25 mg tablet 25 mg PO BID HTN 09/09/22 [History Last Taken 09/09/22] Allergy/AdvReac Type Severity Reaction Status Date / Time banana Allergy Intermediate Swelling Verified 08/16/22 17:48 Penicillins [PCN] Allergy Unknown Verified 06/29/22 15:08 morphine AdvReac Mild confusion Verified 06/29/22 15:08 Family History Mother Diabetes Parkinson disease Grandmother Cancer Surgical History Amputated toe of left foot (08/2018) H/O coronary artery bypass surgery (06/12/18) H/O eye surgery History of left heart catheterization (05/20/18) Hx of CABG Hx of cholecystectomy S/P meniscectomy Social History household members: spouse Smoking Status: Never smoker alcohol intake: current alcohol intake frequency: a few times a week substance use type: does not use caffeine: No ROS ROS Narrative Unable to obtain ROS as patient said yes to almost all questions but was unable to expand, possibly some abdominal pain but not localized. Physical Exam Narrative General: Awake, has difficulty answering questions which per 's baseline HEENT: Atraumatic, normocephalic Eyes: Anicteric, normal conjunctiva, extraocular movements grossly intact Neck: Supple Respiratory: Clear to auscultation bilaterally, normal respiratory effort Cardiovascular: Regular rate and rhythm GI: Soft, nondistended, does not seem to be tender to palpation, no rebound guarding or rigidity, rolled patient with help of and no blood on his depends or bottom appreciated Extremities: No edema Musculoskeletal: Moving extremities in bed Neuro: No overt focal neurological deficits Skin: No rashes appreciated Psych: Attempts to be cooperative Lab / Micro Data Result Diagrams: 09/10/22 05:56 09/10/22 05:56 Labs: Laboratory Results - last 24 hr 09/09/22 21:13: Hgb 8.7 L 09/10/22 01:17: Hgb 8.2 L 09/10/22 05:56: WBC 8.7, RBC 3.00 L, Hgb 8.4 L, Hct 27.7 L, MCV 92.3 D, MCH 28.0, MCHC 30.3 L D, RDW Std Deviation 50.9 H, RDW Coeff of Dipti 15.1 H, Plt Count 318, MPV 10.2, Immature Gran % (Auto) 1.700 H, Neut % (Auto) 76.5 H, Lymph % (Auto) 6.8 L, [place] % (Auto) 11.4 H, Eos % (Auto) 2.9, Baso % (Auto) 0.7, Absolute Neuts (auto) 6.7, Absolute Lymphs (auto) 0.59 L, Nucleated RBC % 0, Anisocytosis 1+ 09/10/22 05:56: Sodium 138, Potassium 4.1, Chloride 105, Carbon Dioxide 26.0, Anion Gap 7, BUN 43 H, Creatinine 0.80, Estim Creat Clear Calc 87.22, Est GFR (MDRD) Af Amer 126, Est GFR (MDRD) Non-Af 104, BUN/Creatinine Ratio 54.1 H, Glucose 129 H, Calcium 8.7, Total Bilirubin 0.60, AST 28, ALT 34, Alkaline Phosphatase 181 H, Total Protein 6.9, Albumin 2.4 L, Globulin 4.5 H, Albumin/Globulin Ratio 0.5 L Assessment & Plan Assessment/Plan (1) ABLA (acute blood loss anemia): PLAN: Plan Bright red blood per rectum/GI bleed -The differential diagnosis includes hemorrhoidal, diverticular or ischemic disease. His hemoglobin is similar to when he was discharged from the hospital. He has been off of Eliquis. I do not know if he wants to undergo repeat upper or lower endoscopies to determine the source of bleeding. His tube feeds are on hold and his Eliquis and aspirin on hold. Chronic dysphagia -On tube feeds -Given possible need for intervention holding at this time Atrial fibrillation -Eliquis held Charges/Coding
[2022-09-10] MEDS: Electrolyte Solution/Peg's 4000 ML NG (20:24)
[2022-09-10] MEDS: Atorvastatin Calcium 40 MG Tablet GT (21:44)
[2022-09-10] MEDS: Doxazosin 4 MG Tablet GT (21:46)
[2022-09-10 21:48] VITALS: BP 170/79; PULSE 63; RESP 18; TEMP 36.6; O2SAT 97
[2022-09-10 22:02] LABS: Hematocrit 28.8 % (40-54); Hemoglobin 9.2 g/dL (13.0-16.5)
[2022-09-11] VITALS (8 sets, daily range): BP systolic 135–163; BP diastolic 60–69; PULSE 64–79; RESP 16–18; TEMP 36.3–37.1; O2SAT 97–98; BMI 24.9; BMI 25.2; BMI 21.8
[2022-09-11] MEDS: 0.9% Saline Lock 10 ML Syringe IV (01:44)
[2022-09-11] MEDS: oxyCODONE 5 MG Tablet 10 MG GT ×6 (01:44→21:05)
[2022-09-11] MEDS: 0.9% Normal Saline 1,000 ML 150 ML IV ×3 (04:44→18:45)
[2022-09-11 05:19] LABS: Absolute Lymphocyte Count 0.67 X10^3/uL (0.83-4.51); Absolute Neutrophil Count 5.9 X10^3/uL (2.0-7.7); Basophil# 0.05 X10^3/uL; Basophil% 0.6 % (0-1); Eosinophils% 2.5 % (0-5); Hematocrit 26.2 % (40-54); Hemoglobin 8.2 g/dL (13.0-16.5); Lymphocyte # 0.67 X10^3/ul (0.83-4.51); Lymphocyte % 8.3 % (19-41); Mean Corp Hgb Conc 31.3 g/dL (32-36); Mean Corpuscular Hgb 28.7 pg (27.0-32.0); Mean Corpuscular Volume 91.6 fL (80-94); Mean Platelet Vol. 10.1 fl (6.2-12.0); Monocyte# 1.08 X10^3/uL; Monocyte% 13.4 % (0-10); NRBC Flagged by Analyzer 0 % (0-5); Neutrophil # 5.92 X10^3/uL (2.7-7.7); Neutrophil % 73.8 % (47-70); Platelet Count 281 K/mm3 (150-450); RBC Distribution Width SD 50.1 fl (35.1-43.9); Red Blood Count 2.86 M/mm3 (4.6-6.2)
[2022-09-11 05:43] LABS: ALB/GLOB Ratio 0.5 RATIO (0.9-2.4); AST(SGOT) 28 U/L (15-37); Alanine Aminotransfer ALT/SGPT 28 U/L (16-61); Albumin, Serum 2.3 g/dL (3.2-5.0); Alkaline Phosphatase 182 U/L (45-117); Anion Gap 9 (5-15); BUN 24 mg/dL (7-18); BUN/Creat Ratio 37.3 RATIO (10-20); Calcium,Total 8.4 mg/dL (8.5-10.1); Chloride 110 mmol/L (98-107); Creatinine, Serum 0.64 mg/dL (0.70-1.30); EST Glomerular Filtration Rate 133 mL/min (>60); Est Glom Filt Rate - Afr Amer 161 mL/min (>60); Estimated Creatinine Clearance 109.02 ml/min; Globulin 4.5 g/dL (2.2-4.2); Glucose 96 mg/dL (74-106); Potassium 3.9 mmol/L (3.5-5.1); Protein, Total 6.8 g/dL (6.4-8.2); Sodium Level 142 mmol/L (136-145)
--- NOTE | 2022-09-11 06:36 | PN.HOSP_ITS ---
Reason for Visit Reason for Visit: Diagnoses Acute posthemorrhagic anemia (09/09/22) Gastrointestinal hemorrhage, unspecified (09/09/22) Subjective Subjective Overnight with no acute events per self and per nursing staff. He unfortunately had no bowel movement despite the bowel prep therefore following discussion with gastroenterology will continue more prep until patient does run clear. Patient's a.m. Hgb 8.2 which was reviewed with him. He also notes that his pain is better controlled now that he is back on his methadone and his scheduled oxycodone. Patient denies fevers, chills, nausea, emesis, abdominal pain, chest pain or dyspnea. Objective Data Objective Data Vital Signs: Vital Signs Temp Pulse Resp BP Pulse Ox O2 Del Method 97.4 F L 69 16 153/60 H 97 Room Air 09/11/22 03:28 09/11/22 03:28 09/11/22 03:28 09/11/22 03:28 09/11/22 03:28 09/11/22 03:32 Oxygen Delivery Method Room Air Weight: 161 lb 2.526 oz Body Mass Index (BMI) 25.2 Intake & Output: Intake and Output for Last 24 Hours 09/09/22 09/10/22 09/11/22 23:59 23:59 23:59 Intake Total 1852.5 / 1912.5 3280.0 / 3280.0 1030 / 1030 Output Total 500 / 1025 3050 / 3050 575 / 575 Balance 1352.5 / 887.5 230.0 / 230.0 455 / 455 Lab / Micro Data Result Diagrams: 09/11/22 04:55 09/11/22 04:55 Labs: Laboratory Results - last 24 hr 09/10/22 05:56: Anisocytosis 1+ 09/10/22 05:56: Sodium 138, Potassium 4.1, Chloride 105, Carbon Dioxide 26.0, Anion Gap 7, BUN 43 H, Creatinine 0.80, Estim Creat Clear Calc 87.22, Est GFR (MDRD) Af Amer 126, Est GFR (MDRD) Non-Af 104, BUN/Creatinine Ratio 54.1 H, G lucose 129 H, Calcium 8.7, Total Bilirubin 0.60, AST 28, ALT 34, Alkaline Jon[place] sphatase 181 H, Total Protein 6.9, Albumin 2.4 L, Globulin 4.5 H, Albumin/Globulin Ratio 0.5 L 09/10/22 21:55: Hgb 9.2 L, Hct 28.8 L 09/11/22 04:55: WBC 8.0, RBC 2.86 L, Hgb 8.2 L, Hct 26.2 L, MCV 91.6, MCH 28.7, MCHC 31.3 L, RDW Std Deviation 50.1 H, RDW Coeff of Dipti 15.0 H, Plt Count 281, MPV 10.1, Immature Gran % (Auto) 1.400 H, Neut % (Auto) 73.8 H, Lymph % (Auto) 8.3 L, [place] % (Auto) 13.4 H, Eos % (Auto) 2.5, Baso % (Auto) 0.6, Absolute Neuts (auto) 5.9, Absolute Lymphs (auto) 0.67 L, Nucleated RBC % 0 09/11/22 04:55: Sodium 142, Potassium 3.9, Chloride 110 H, Carbon Dioxide 23.0, Anion Gap 9, BUN 24 H, Creatinine 0.64 L, Estim Creat Clear Calc 109.02, Est GFR (MDRD) Af Amer 161, Est GFR (MDRD) Non-Af 133, BUN/Creatinine Ratio 37.3 H, Glucose 96, Calcium 8.4 L, Total Bilirubin 0.70, AST 28, ALT 28, Alkaline P hosphatase 182 H, Total Protein 6.8, Albumin 2.3 L, Globulin 4.5 H, Albumin/Globulin Ratio 0.5 L Physical Exam Narrative Physical Examination: General: Awake, alert, difficult orientation given patient prior stroke history with chronic aphasia but able to interact and understands, remains cooperative, laying in the PCU bed, notes pain is better controlled following his medication resumption per his home protocol. Skin: Normal color, normal turgor, no icterus, no cyanosis except for stasis ulcer to the coccyx as well as left lower back and right upper shoulder and in addition to right lateral plantar foot with no specific erythema or infected appearance HEENT: AT/NC, EOMI, PERRLA, MMM. Lungs: Mildly diminished, greater bases, appropriate effort, no rales, ronchi or wheezing. Heart: Regular rate and rhythm; no gallop, rub audible. Abdomen: Soft, PEG tube in place NTTP, ND, mildly hyperactive BS Extremities: No cyanosis, clubbing, or edema. Neurological: Patient awake, alert, oriented as noted, cognitive function difficult to assess given aphasia but appears likely baseline intact; pupils equally reactive to light and accommodation, cranial nerves appear grossly normal, chronic right-sided hemiplegia status post prior CVA, chronic indwelling catheter as well as PEG tube as previously noted, strength accordingly severely globally decreased. Psychiatric: Affect appears fatigued but still interactive, no acute evidence of depressive or anxiety feelings. Assessment & Plan Assessment/Plan (1) Acute gastrointestinal bleeding: PLAN: Plan The patient is a 62 y/o M w/ PMHx: Former EtOH abuse, PAD, Hx CVA w/ chronic aphasia/chronic dysphagia/R sided hemiplegia, Chronic Diastolic CHF, HTN, HLD, CAD, Hx post-operative PAF prior, Chronic normocytic anemia/Fe deficiency anemia, Chronic pain syndrome on chronic BID methadone and scheduled oxycodone, Diabetes mellitus type II, recent discharge 08/30/22 following admission for GI bleed without obvious source identified who now re-presents to the [facility] ED on 09/09/22 with recurrent bright red blood per rectum with ED initial evaluation with stable hemoglobin however he had elevated BUN and maroon stool on anoscope in the ED. #1. Acute GI Bleed w/ resultant Acute on Chronic Normocytic anemia/Fe deficiency anemia: Recent discharge 08/30/2022 with evaluation at that time per g eneral surgery with endoscopies with no obvious source of bleeding, readmitted to PCU, 2 unit PRBC ordered and placed on hold at admission, cycling H&H's but has remained stable with admission Hgb 9.2-->09/11/22 Hgb most recent 8.2, IV PPI initiated and continued, tube feeds held as well as patient aspirin and Eliquis transiently held, gastroenterology following w/ bowel prep started 09/10/22, unfortunately no BM, will continue additional bowel prep which was amenable per GI. Of note given prior reported history of alcohol abuse most recent imaging 08/26/2022 demonstrates an unremarkable and an unenhanced appearance of the liver, held immediate administration of IV Rocephin. #2. History CVA with chronic aphasia/chronic dysphagia/right-sided hemiplegia: Patient chronically on tube feeds which have been held, dietitian consulted given history, holding aspirin/Eliquis, continue home hypertensive regimen as BP allows given presentation and continue statin therapy, maintain on fall and aspiration precautions, PT/OT/speech therapy consulted as well as case management for discharge planning. Restart antiplt therapy/chronic anticoagulation once cleared per GI. #3. Chronic stasis 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: Continue with aggressive offloading, barrier cream as well as dressings as needed and attempting to obtain soft protective sponge heel boots. #4. Chronic diastolic CHF: 04/17/2022 echocardiogram with normal LV systolic function, EF 65%, mild concentric LVH, mildly enlarged LA, trivial MVI, trivial TVI, RVSP unable to be assessed during that study secondary to technical difficulties and diastolic function was indeterminate. Judiciously hydrate given history, holding aspirin and patient Eliquis, continue patient home Coreg, lisinopril, metoprolol, hydralazine and Lasix regimen as well as statin therapy, adjust BP regimen as needed. Restart antiplt therapy/chronic anticoagulation once cleared per GI. #5. Chart reported history of Diabetes mellitus type II: Per medication regimen not on any diabetic medications, HgBA1c 5.8% c/w prediabetic status, BS have remained completely within normal range but not currently on TFs given held for endoscopies. Will hold on insulin sliding scale with Accu-Cheks but low threshold to add if BS rise with TF restart. #6. Chronic pain syndrome: We will continue patient home chronic methadone as w ell as scheduled short acting oxycodone, encourage offloading and positional changes to assist in pain. #7. Hypertension: Continue home regimen including amlodipine, Coreg, Lasix, hydralazine, lisinopril, metoprolol home regimen with low threshold to hold if hypotensive given presentation, PRN hydralazine. #8. Hyperlipidemia: We will continue patient on statin therapy. #9. Hx Post-operative PAF: We will continue metoprolol, holding home Eliquis given presentation as noted. Restart anticoagulation once cleared per GI. #10. Chart reported history former alcohol use: Reportedly sober, certainly could complicate presentation, encourage sobriety continuation #11. CAD, PAD: Status post prior bypass surgery, holding aspirin, Eliquis, continue lisinopril and metoprolol as BP allows as well as home statin therapy. Restart antiplt therapy/chronic anticoagulation once cleared per GI. #12. Gout: We will continue patient home allopurinol regimen. #13. BPH: We will continue patient home Flomax and doxazosin regimen. #14. DVT prophylaxis: SCDs. Holding home eliquis given presentation as Restart antiplt therapy/chronic anticoagulation once cleared per GI. #15. CODE status: Full Code. Admission Evaluation Time spent evaluating chart, patient history, patient evalu ation, care planning and discussion with specialists: 35 minutes. Charges/Coding Visit Charges Inpatient E&M: 63045 Subs Hosp L2
[2022-09-11 08:11] LABS: Hemoglobin A1c 5.8 % (3.8-5.6)
[2022-09-11] MEDS: hydrALAZINE 50 MG Tablet GT ×3 (08:42→17:28)
[2022-09-11] MEDS: Carvedilol 12.5 MG Tablet GT ×2 (08:42→17:28)
[2022-09-11] MEDS: Polyethylene Glycol 3350 BOWEL PREP PO (08:43)
[2022-09-11] MEDS: Allopurinol 100 MG Tablet GT (10:26)
[2022-09-11] MEDS: Furosemide 40 MG Tablet GT ×2 (10:26→21:06)
--- NOTE | 2022-09-11 11:54 | CASEMGMT ---
LLOYD GAO chart review: Patient was admitted 08/26-08/30/22 for acute GI bleed. Patient had upper and lower scopes that were unremarkable. Patient was discharged home with resumption of [facility] and was setup with hospital bed from [facility]. Patient had follow-up scheduled with PCP on 09/06/22. Patient returned to [facility] ED 09/09/22 for GI bleed. Hgb was 9.1 on admission. Patient has GI consult. CM will continue to follow this patient and plan for a safe discharge.
[2022-09-11] MEDS: amLODIPine 10 MG Tablet GT (13:09)
--- NOTE | 2022-09-11 16:41 | PN.GI_ITS ---
Subjective Subjective Patient was given the prep but he did not have any bowel movements from his prep. Currently he is undergoing repeat prep. He denies any abdominal pain. He denies any bloating. Objective Data Objective Data Vital Signs: Vital Signs Temp Pulse Resp BP Pulse Ox O2 Del Method 98.4 F 79 17 151/69 H 98 Room Air 09/11/22 08:33 09/11/22 13:07 09/11/22 08:33 09/11/22 10:24 09/11/22 08:33 09/11/22 08:33 Oxygen Delivery Method Room Air Weight: 161 lb 2.526 oz Body Mass Index (BMI) 25.2 Intake & Output: Intake and Output for Last 24 Hours 09/09/22 09/10/22 09/11/22 23:59 23:59 23:59 Intake Total 1852.5 / 1912.5 3280.0 / 3280.0 2300 / 2300 Output Total 500 / 1025 3050 / 3050 1425 / 1425 Balance 1352.5 / 887.5 230.0 / 230.0 875 / 875 Lab / Micro Data Result Diagrams: 09/11/22 04:55 09/11/22 04:55 Labs: Laboratory Results - last 24 hr 09/10/22 21:55: Hgb 9.2 L, Hct 28.8 L 09/11/22 04:55: WBC 8.0, RBC 2.86 L, Hgb 8.2 L, Hct 26.2 L, MCV 91.6, MCH 28.7, MCHC 31.3 L, RDW Std Deviation 50.1 H, RDW Coeff of Dipti 15.0 H, Plt Count 281, MPV 10.1, Immature Gran % (Auto) 1.400 H, Neut % (Auto) 73.8 H, Lymph % (Auto) 8.3 L, [place] % (Auto) 13.4 H, Eos % (Auto) 2.5, Baso % (Auto) 0.6, Absolute Neuts (auto) 5.9, Absolute Lymphs (auto) 0.67 L, Nucleated RBC % 0 09/11/22 04:55: Sodium 142, Potassium 3.9, Chloride 110 H, Carbon Dioxide 23.0, Anion Gap 9, BUN 24 H, Creatinine 0.64 L, Estim Creat Clear Calc 109.02, Est GFR (MDRD) Af Amer 161, Est GFR (MDRD) Non-Af 133, BUN/Creatinine Ratio 37.3 H, Glucose 96, Calcium 8.4 L, Total Bilirubin 0.70, AST 28, ALT 28, Alkaline Phosphatase 182 H, Total Protein 6.8, Albumin 2.3 L, Globulin 4.5 H, Albumin/Globulin Ratio 0.5 L 09/11/22 04:55: Hemoglobin A1c 5.8 H Physical Exam Narrative Physical Examination: General: Awake, alert, difficult orientation given patient prior stroke history with chronic aphasia but able to interact and understands, remains cooperative, laying in the PCU bed, notes pain is better controlled following his medication resumption per his home protocol. Skin: Normal color, normal turgor, no icterus, no cyanosis except for stasis ulcer to the coccyx as well as left lower back and right upper shoulder and in addition to right lateral plantar foot with no specific erythema or infected appearance HEENT: AT/NC, EOMI, PERRLA, MMM. Lungs: Mildly diminished, greater bases, appropriate effort, no rales, ronchi or wheezing. Heart: Regular rate and rhythm; no gallop, rub audible. Abdomen: Soft, PEG tube in place NTTP, ND, mildly hyperactive BS Extremities: No cyanosis, clubbing, or edema. Neurological: Patient awake, alert, oriented as noted, cognitive function difficult to assess given aphasia but appears likely baseline intact; pupils equally reactive to light and accommodation, cranial nerves appear grossly normal, chronic right-sided hemiplegia status post prior CVA, chronic indwelling catheter as well as PEG tube as previously noted, strength accordingly severely globally decreased. Psychiatric: Affect appears fatigued but still interactive, no acute evidence of depressive or anxiety feelings. Assessment & Plan Assessment/Plan (1) ABLA (acute blood loss anemia): PLAN: Plan Bright red blood per rectum/GI bleed -The differential diagnosis includes hemorrhoidal, diverticular or ischemic disease. His hemoglobin is similar to when he was discharged from the hospital. He has been off of Eliquis. I do not know if he wants to undergo repeat upper or lower endoscopies to determine the source of bleeding. His tube feeds are on hold and his Eliquis and aspirin on hold. Chronic dysphagia -On tube feeds -Given possible need for intervention holding at this time Atrial fibrillation -Eliquis held 09/11: The plan is for an EGD and colonoscopy tomorrow if he is clear. If he is not clear tomorrow then we will continue to prep him with GoLytely through the PEG tube in we will attempt on . Charges/Coding Visit Charges Inpatient E&M: 60298 [facility] Hosp L3
[2022-09-11] MEDS: Ensure Clear 120 ML Liquid PO ×2 (17:27→21:11)
[2022-09-11] MEDS: Electrolyte Solution/Peg's 4000 ML PO (18:45)
[2022-09-11] MEDS: Doxazosin 4 MG Tablet GT (21:05)
[2022-09-11] MEDS: Atorvastatin Calcium 40 MG Tablet GT (21:06)
[2022-09-11] MEDS: Baclofen 10 MG Tablet 5 MG GT (21:06)
[2022-09-11] MEDS: Menthol/Lanolin/Calamine/Znox 113 GM Tube 1 APPLIC TOPICAL (21:07)
[2022-09-12] VITALS (17 sets, daily range): BP systolic 90–183; BP diastolic 61–91; PULSE 64–82; RESP 14–18; TEMP 36.6–37.4; O2SAT 95–99; BMI 21.9
[2022-09-12] MEDS: oxyCODONE 5 MG Tablet 10 MG GT ×4 (00:35→21:36)
[2022-09-12] MEDS: 0.9% Normal Saline 1,000 ML 150 ML IV ×3 (01:42→15:28)
[2022-09-12] MEDS: Menthol/Lanolin/Calamine/Znox 113 GM Tube 1 APPLIC TOPICAL (04:06)
[2022-09-12 06:23] LABS: Absolute Lymphocyte Count 0.61 X10^3/uL (0.83-4.51); Absolute Neutrophil Count 5.6 X10^3/uL (2.0-7.7); Basophil# 0.03 X10^3/uL; Basophil% 0.4 % (0-1); Eosinophil# 0.14 X10^3/uL; Eosinophils% 1.8 % (0-5); Hematocrit 24.1 % (40-54); Hemoglobin 7.5 g/dL (13.0-16.5); Lymphocyte # 0.61 X10^3/ul (0.83-4.51); Mean Corp Hgb Conc 31.1 g/dL (32-36); Mean Corpuscular Hgb 28.4 pg (27.0-32.0); Mean Corpuscular Volume 91.3 fL (80-94); Monocyte# 1.17 X10^3/uL; Monocyte% 15.3 % (0-10); NRBC Flagged by Analyzer 0 % (0-5); Neutrophil # 5.62 X10^3/uL (2.7-7.7); Neutrophil % 73.3 % (47-70); Platelet Count 256 K/mm3 (150-450); RBC Distribution Width CV 15.2 % (11.6-14.6); RBC Distribution Width SD 50.3 fl (35.1-43.9); Red Blood Count 2.64 M/mm3 (4.6-6.2); White Blood Count 7.7 K/mm3 (4.4-11.0)
--- NOTE | 2022-09-12 06:39 | PN.HOSP_ITS ---
Reason for Visit Reason for Visit: Diagnoses Acute posthemorrhagic anemia (09/09/22) Gastrointestinal hemorrhage, unspecified (09/09/22) Subjective Subjective No acute events overnight however patient did eventually have onset of bowel movements with serial bowel prep needed and did have some bright red clots but continues to deny any abdominal cramping or pain. Vital signs remained stable. Repeat hemoglobin this morning 7.5 with 1 unit PRBC ordered. Given difficulties with achieving appropriate prep patient endoscopy delayed until 09/12/2022. Patient denies fevers, chills, nausea, emesis, abdominal pain, chest pain or dyspnea. Objective Data Objective Data Vital Signs: Vital Signs Temp Pulse Resp BP Pulse Ox O2 Del Method O2 Flow Rate 98.1 F 76 18 167/76 H 96 Room Air 0 09/12/22 03:55 09/12/22 03:55 09/12/22 03:55 09/12/22 03:55 09/12/22 03:55 09/12/22 03:55 09/11/22 16:42 Oxygen Flow Rate (L/min) 0 Oxygen Delivery Method Room Air Weight: 161 lb 13.109 oz Body Mass Index (BMI) 21.9 Intake & Output: Intake and Output for Last 24 Hours 09/10/22 09/11/22 09/12/22 23:59 23:59 23:59 Intake Total 3280.0 / 3280.0 3655 / 3655 1060 / 1060 Output Total 3050 / 3050 2275 / 2275 900 / 900 Balance 230.0 / 230.0 1380 / 1380 160 / 160 Lab / Micro Data Result Diagrams: 09/12/22 06:14 09/12/22 06:14 Labs: Laboratory Results - last 24 hr 09/11/22 04:55: Hemoglobin A1c 5.8 H 09/12/22 06:14: WBC 7.7, RBC 2.64 L, Hgb 7.5 L, Hct 24.1 L, MCV 91.3, MCH 28.4, MCHC 31.1 L, RDW Std Deviation 50.3 H, RDW Coeff of Dipti 15.2 H, Plt Count 256, MPV 10.0, Immature Gran % (Auto) 1.200 H, Neut % (Auto) 73.3 H, Lymph % (Auto) 8.0 L, [place] % (Auto) 15.3 H, Eos % (Auto) 1.8, Baso % (Auto) 0.4, Absolute Neuts (auto) 5.6, Absolute Lymphs (auto) 0.61 L, Nucleated RBC % 0 Physical Exam Narrative Physical Examination: General: Awake, alert, chronic aphasia but able to interact and understands, remains cooperative, laying in the PCU bed, no acute distress. Skin: Normal color, normal turgor, no icterus, no cyanosis except for stasis ulcer to the coccyx as well as left lower back and right upper shoulder and in addition to right lateral plantar foot with no specific erythema or infected appearance HEENT: AT/NC, EOMI, PERRLA, MMM. Lungs: Mildly diminished, greater bases, appropriate effort, no rales, ronchi or wheezing. Heart: Regular rate and rhythm; no gallop, rub audible. Abdomen: Soft, PEG tube in place, NTTP, ND, hyperactive BS Extremities: No cyanosis, clubbing, or edema. Neurological: Patient awake, alert, oriented as noted, cognitive function difficult to assess given aphasia but appears likely baseline intact; pupils equally reactive to light and accommodation, cranial nerves appear grossly normal, chronic right-sided hemiplegia status post prior CVA, chronic indwelling catheter as well as PEG tube as previously noted, strength accordingly severely globally decreased. Psychiatric: Affect appears mildly flat but still interactive this a.m., no acute evidence of depressive or anxiety feelings. Assessment & Plan Assessment/Plan (1) Acute gastrointestinal bleeding: PLAN: Plan The patient is a 62 y/o M w/ PMHx: Former EtOH abuse, PAD, Hx CVA w/ chronic aphasia/chronic dysphagia/R sided hemiplegia, Chronic Diastolic CHF, HTN, HLD, CAD, Hx post-operative PAF prior, Chronic normocytic anemia/Fe deficiency anemia, Chronic pain syndrome on chronic BID methadone and scheduled oxycodone, Diabetes mellitus type II, recent discharge 08/30/22 following admission for GI bleed without obvious source identified who now re-presents to the [facility] ED on 09/09/22 with recurrent bright red blood per rectum with ED initial evaluation with stable hemoglobin however he had elevated BUN and maroon stool on anoscope in the ED. #1. Acute GI Bleed w/ resultant Acute on Chronic Normocytic anemia/Fe deficiency anemia: Recent discharge 08/30/2022 with evaluation at that time per general surgery with endoscopies with no obvious source of bleeding, readmitted to PCU, 2 unit PRBC ordered and placed on hold at admission, cycling H&H's but has remained stable with admission Hgb 9.2-->09/12/22 Hgb 7.5, IV PPI initiated and continued, tube feeds held as well as patient aspirin and Eliquis transiently held, gastroenterology following w/ bowel prep started 09/10/22, unfortunately no BM, continued additional bowel prep with bailey malhotra with planned scope 09/12/22. Patient did have noted BRB clots w/ his BM/prep. 09/12/22 Hgb 7.5, 1 u PRBC ordered with repeat HH 1-2 hours following administration ordered. Continue to trend CBC. Of note given prior reported history of alcohol abuse most recent imaging 08/26/2022 demonstrates an unremarkable and an unenhanced appearance of the liver, held immediate administration of IV Rocephin. #2. History CVA with chronic aphasia/chronic dysphagia/right-sided hemiplegia: Patient chronically on tube feeds which have been held, dietitian consulted given history, holding aspirin/Eliquis, continue home hypertensive regimen as BP allows given presentation and continue statin therapy, maintain on fall and aspiration precautions, PT/OT/speech therapy consulted as well as case management for discharge planning. Restart antiplt therapy/chronic anticoagulation once cleared per GI. #3. Chronic stasis 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: Continue with aggressive offloading, barrier cream as well as dressings as needed and attempting to obtain soft protective sponge heel boots. #4. Chronic diastolic CHF: 04/17/2022 echocardiogram with normal LV systolic function, EF 65%, mild concentric LVH, mildly enlarged LA, trivial MVI, trivial TVI, RVSP unable to be assessed during that study secondary to technical difficulties and diastolic function was indeterminate. Judiciously hydrate given history, holding aspirin and patient Eliquis, continue patient home Coreg, lisinopril, metoprolol, hydralazine and Lasix regimen as well as statin therapy, adjust BP regimen as needed. Restart antiplt therapy/chronic anticoagulation once cleared per GI. #5. Chart reported history of Diabetes mellitus type II: Per medication regimen not on any diabetic medications, HgBA1c 5.8% c/w prediabetic status, BS have remained completely within normal range but not currently on TFs given held for endoscopies. Will hold on insulin sliding scale with Accu-Cheks but low thres hold to add if BS rise with TF restart. #6. Chronic pain syndrome: We will continue patient home chronic methadone as well as scheduled short acting oxycodone, encourage offloading and positional ch anges to assist in pain. #7. Hypertension: Continue home regimen including amlodipine, Coreg, Lasix, hydralazine, lisinopril, metoprolol home regimen with low threshold to hold if hypotensive given presentation, PRN hydralazine. #8. Hyperlipidemia: We will continue patient on statin therapy. #9. Hx Post-operative PAF: We will continue metoprolol, holding home Eliquis given presentation as noted. Restart anticoagulation once cleared per GI. #10. Chart reported history former alcohol use: Reportedly sober, certainly could complicate presentation, encourage sobriety continuation #11. CAD, PAD: Status post prior bypass surgery, holding aspirin, Eliquis, continue lisinopril and metoprolol as BP allows as well as home statin therapy. Restart antiplt therapy/chronic anticoagulation once cleared per GI. #12. Gout: We will continue patient home allopurinol regimen. #13. BPH: We will continue patient home Flomax and doxazosin regimen. #14. DVT prophylaxis: SCDs. Holding home eliquis given presentation as Restart antiplt therapy/chronic anticoagulation once cleared per GI. #15. CODE status: Full Code. Admission Evaluation Time spent evaluating chart, patient history, patient evaluation, care planning and discussion with specialists: 35 minutes. Charges/Coding Visit Charges Inpatient E&M: 64826 Subs Hosp L2
[2022-09-12 07:07] LABS: ALB/GLOB Ratio 0.5 RATIO (0.9-2.4); AST(SGOT) 24 U/L (15-37); Alanine Aminotransfer ALT/SGPT 24 U/L (16-61); Albumin, Serum 2.2 g/dL (3.2-5.0); Alkaline Phosphatase 169 U/L (45-117); Anion Gap 8 (5-15); BUN 12 mg/dL (7-18); Calcium,Total 7.7 mg/dL (8.5-10.1); Chloride 109 mmol/L (98-107); Creatinine, Serum 0.55 mg/dL (0.70-1.30); EST Glomerular Filtration Rate 161 mL/min (>60); Est Glom Filt Rate - Afr Amer 194 mL/min (>60); Estimated Creatinine Clearance 140.87 ml/min; Globulin 4.2 g/dL (2.2-4.2); Glucose 96 mg/dL (74-106); Potassium 3.1 mmol/L (3.5-5.1); Protein, Total 6.4 g/dL (6.4-8.2); Sodium Level 140 mmol/L (136-145)
[2022-09-12] MEDS: hydrALAZINE 20 MG/ML Vial 10 MG IV (11:38)
[2022-09-12] MEDS: Lactated Ringers 1,000 ML 15 ML IV (13:00)
--- NOTE | 2022-09-12 13:30 | COLBX_PTH ---
PATIENT: CLAY RUBIO LOC: [facility] U#:[id number] AGE/SX: 62/M ROOM: [facility] RE09/09/[address]: Dr. Ashley Nowak MD : 1960 BED: 1 DIS: 09/15/2022 SPEC #: [id number] RECD: 09/12/22 14:23 STATUS: ALEJANDRA REQ #: [id number] MALLY: 09/12/22 13:[address]: Abel Flores DEPT: SURGICAL PATHOLOGY RECD BY: Jena Quiroga ENTERED: 09/13/22 09:07 SP TYPE: COLON BX OTHR DR: MD Dr. Delgado Hernández DO Dr. Paige Pierce, MD Tissues: Rectum, NOS Procedures: Surgery Specimen Level IV Comments: @ Ordering doctor for SUIV edited from to @ by RGOOD at 09/13/22 1500 @ Submitting doctor edited from to @ by RGOOD at 09/13/22 1500 HEADER OPERATION: Colonoscopy (MAC) with biopsies and electrohemostasis PRE-OP DIAGNOSIS: Acute blood loss anemia TISSUE SUBMITTED: Rectal ulcer biopsy MICROSCOPIC DIAGNOSIS Rectal ulcer, biopsy: Ulceration with associated acute and chronic inflammation, fibrinopurulent material and granulation. AM:paloma 09/14/2022 MICROSCOPIC DESCRIPTION Slides are reviewed. GROSS DESCRIPTION Received in fixative is one container labeled with the patient's name and designated rectal ulcer biopsy. The specimen consists of multiple irregular fragments of light trevino soft tissue that in aggregate measure 1.5 x 0.3 x 0.1 cm. The specimen is totally submitted in one cassette. / SJ:paloma 09/13/2022 TC:2 CPT: 74257
--- NOTE | 2022-09-12 13:52 | OP.CCLET_ITS ---
09/12/2022 Delgado Smith Re : Colonoscopy procedure for Sacha Jones Dear Sarah This procedure was performed on Monday, September 12, 2022. My impressions and recommendations are as follows: Impressions : - Mucosal ulceration. Biopsied. Injected. Treated with a heater probe. - Stool in the recto-sigmoid colon, in the sigmoid colon, in the transverse colon and in the cecum. Recommendations : - Return patient to hospital [facility] for ongoing care. - Resume previous diet. - Continue present medications. - Await pathology results. - Repeat colonoscopy is recommended. The colonoscopy date will be determined after pathology results from today's exam become available for review. My findings are described in the full procedure note, which is enclosed. If I can be of further assistance, please feel free to contact me at . Sincerely, Abel Flores, 09/12/2022 1:51:49 PM This report has been signed electronically.
--- NOTE | 2022-09-12 13:52 | OP.COLON_ITS ---
Patient Name: Sacha Jones Procedure Date: 09/12/2022 1:06 PM Date of : 1960 Age: 62 Procedure: Colonoscopy Indications: Hematochezia Providers: Abel Flores DO Medicines: Monitored Anesthesia Care Patient Profile: This is a 62 year old male. Refer to note in patient chart for documentation of history and physical. Last Colonoscopy: within the past 3 months. Complications: No immediate complications. Procedure: Pre-Anesthesia Assessment: - Prior to the procedure, a History and Physical was performed, and patient medications and allergies were reviewed. The patient is competent. The risks and benefits of the procedure and the sedation options and risks were discussed with the patient. All questions were answered and informed consent was obtained. Patient identification and proposed procedure were verified by the physician. Mental Status Examination: normal. Respiratory Examination: clear to auscultation. Prophylactic Antibiotics: The patient does not require prophylactic antibiotics. Prior Anticoagulants: The patient has taken no previous anticoagulant or antiplatelet agents. After reviewing the risks and benefits, the patient was deemed in satisfactory condition to undergo the procedure. The anesthesia plan was to use minimal sedation / analgesia (anxiolysis). Immediately prior to administration of medications, the patient was re-assessed for adequacy to receive sedatives. The heart rate, respiratory rate, oxygen saturations, blood pressure, adequacy of pulmonary ventilation, and response to care were monitored throughout the procedure. The physical status of the patient was re-assessed after the procedure. After I obtained informed consent, the scope was passed under direct vision. Throughout the procedure, the patient's blood pressure, pulse, and oxygen saturations were monitored continuously. The colonoscope was introduced through the anus and advanced to the terminal ileum. The quality of the bowel preparation was adequate. Scope In: 1:24:11 PM Scope Withdrawal Time 0 hours 14 minutes 1 second Scope Out: 1:47:11 PM Total Procedure Duration Time 0 hours 23 minutes 0 seconds Findings: The perianal and digital rectal examinations were normal. Discontinuous areas of bleeding ulcerated mucosa with stigmata of recent bleeding were present in the rectum. Biopsies were taken with a cold forceps for histology. Verification of patient identification for the specimen was done. Estimated blood loss was minimal. Area was successfully injected with 10 mL of a 1:10,000 solution of epinephrine for drug delivery. Coagulation for hemostasis using heater probe was successful. Estimated blood loss was minimal. A small amount of stool was found in the recto-sigmoid colon, in the sigmoid colon, in the transverse colon and in the cecum. Impression: - Mucosal ulceration. Biopsied. Injected. Treated with a heater probe. - Stool in the recto-sigmoid colon, in the sigmoid colon, in the transverse colon and in the cecum. Recommendation: - Return patient to hospital [facility] for ongoing care. - Resume previous diet. - Continue present medications. - Await pathology results. - Repeat colonoscopy is recommended. The colonoscopy date will be determined after pathology results from today's exam become available for review. Procedure Code(s): --- Professional --- 61893, Colonoscopy, flexible; with control of bleeding, any method CPT copyright 2017 [employer]. All rights reserved. The codes documented in this report are preliminary and upon director of catering sales review may be revised to meet current compliance requirements. Abel Flores DO 09/12/2022 1:51:49 PM This report has been signed electronically. Number of Addenda: 0 Note Initiated On: 09/12/2022 1:06 PM
[2022-09-12] MEDS: 0.9% Normal Saline 1,000 ML 100 ML IV (15:55)
[2022-09-12] MEDS: hydrALAZINE 50 MG Tablet GT (16:57)
[2022-09-12] MEDS: Carvedilol 12.5 MG Tablet GT (16:58)
[2022-09-12] MEDS: Ensure Clear 120 ML Liquid PO ×2 (17:40→21:47)
[2022-09-12] MEDS: Atorvastatin Calcium 40 MG Tablet GT (21:36)
[2022-09-12] MEDS: 0.9% Saline Lock 10 ML Syringe IV (21:36)
[2022-09-12] MEDS: Doxazosin 4 MG Tablet GT (21:36)
[2022-09-12] MEDS: Furosemide 40 MG Tablet GT (21:36)
[2022-09-12] MEDS: Tamsulosin HCl 0.4 MG Capsule PO (21:36)
[2022-09-12 23:35] LABS: Hematocrit 24.6 % (40-54); Hemoglobin 7.9 g/dL (13.0-16.5)
[2022-09-13] VITALS (12 sets, daily range): BP systolic 147–177; BP diastolic 61–73; PULSE 64–77; RESP 16–18; TEMP 36.3–37.4; O2SAT 95–97
[2022-09-13] MEDS: oxyCODONE 5 MG Tablet 10 MG GT ×6 (01:08→21:23)
[2022-09-13] MEDS: hydrALAZINE 20 MG/ML Vial 10 MG IV (01:21)
[2022-09-13] MEDS: 0.9% Normal Saline 1,000 ML 100 ML IV ×3 (02:02→22:39)
[2022-09-13 06:19] LABS: Absolute Lymphocyte Count 0.49 X10^3/uL (0.83-4.51); Absolute Neutrophil Count 6.6 X10^3/uL (2.0-7.7); Basophil# 0.04 X10^3/uL; Basophil% 0.5 % (0-1); Eosinophil# 0.11 X10^3/uL; Eosinophils% 1.3 % (0-5); Hematocrit 25.6 % (40-54); Hemoglobin 8.4 g/dL (13.0-16.5); Lymphocyte # 0.49 X10^3/ul (0.83-4.51); Lymphocyte % 5.7 % (19-41); Mean Corp Hgb Conc 32.8 g/dL (32-36); Mean Corpuscular Hgb 29.3 pg (27.0-32.0); Mean Corpuscular Volume 89.2 fL (80-94); Mean Platelet Vol. 10.3 fl (6.2-12.0); Monocyte% 14.1 % (0-10); NRBC Flagged by Analyzer 0 % (0-5); Neutrophil # 6.61 X10^3/uL (2.7-7.7); Neutrophil % 77.3 % (47-70); POSITIVE DIFFERENTIAL YES; Platelet Count 226 K/mm3 (150-450); RBC Distribution Width SD 48.9 fl (35.1-43.9); Red Blood Count 2.87 M/mm3 (4.6-6.2); White Blood Count 8.5 K/mm3 (4.4-11.0)
[2022-09-13 06:21] LABS: Differential Indicated SCAN CRITERIA MET
[2022-09-13 06:55] LABS: ALB/GLOB Ratio 0.5 RATIO (0.9-2.4); AST(SGOT) 19 U/L (15-37); Alanine Aminotransfer ALT/SGPT 18 U/L (16-61); Albumin, Serum 2.1 g/dL (3.2-5.0); Alkaline Phosphatase 154 U/L (45-117); Anion Gap 8 (5-15); Anisocytosis 1+; BUN 8 mg/dL (7-18); Calcium,Total 7.6 mg/dL (8.5-10.1); Chloride 108 mmol/L (98-107); EST Glomerular Filtration Rate 178 mL/min (>60); Est Glom Filt Rate - Afr Amer 215 mL/min (>60); Estimated Creatinine Clearance 154.96 ml/min; Glucose 98 mg/dL (74-106); Potassium 2.8 mmol/L (3.5-5.1); Protein, Total 6.1 g/dL (6.4-8.2); Sodium Level 138 mmol/L (136-145)
[2022-09-13] MEDS: Allopurinol 100 MG Tablet GT (09:51)
[2022-09-13] MEDS: hydrALAZINE 50 MG Tablet GT ×3 (09:51→17:42)
[2022-09-13] MEDS: Carvedilol 12.5 MG Tablet GT ×2 (09:51→17:42)
--- NOTE | 2022-09-13 10:00 | PCM.PN.HOSP ---
Reason for Visit Reason for Visit: Diagnoses Acute posthemorrhagic anemia (09/09/22) Gastrointestinal hemorrhage, unspecified (09/09/22) Subjective Subjective Resting in bed, still unable to answer questions. No bleeding reported Objective Data Objective Data Vital Signs: Vital Signs Temp Pulse Resp BP Pulse Ox O2 Del Method O2 Flow Rate 98.7 F 73 18 173/72 H 95 Room Air 0 09/13/22 09:35 09/13/22 09:51 09/13/22 09:35 09/13/22 09:35 09/13/22 09:35 09/13/22 09:35 09/11/22 16:42 Oxygen Flow Rate (L/min) 0 Oxygen Delivery Method Room Air Weight: 73.4 kg Body Mass Index (BMI) 21.9 Intake & Output: Intake and Output for Last 24 Hours 09/11/22 09/12/22 09/13/22 23:59 23:59 23:59 Intake Total 3655 / 3655 4715.75 / 4715.75 1000 / 1000 Output Total 2275 / 2275 2050 / 2050 1100 / 1100 Balance 1380 / 1380 2665.75 / 2665.75 -100 / -100 Lab / Micro Data Result Diagrams: 09/13/22 05:35 09/13/22 05:35 Labs: Laboratory Results - last 24 hr 09/09/22 10:35: Crossmatch See Detail 09/12/22 16:47: Blood Type A POSITIVE, Antibody Screen NEGATIVE, Crossmatch See Detail 09/12/22 23:00: Hgb 7.9 L, Hct 24.6 L 09/13/22 05:35: WBC 8.5, RBC 2.87 L, Hgb 8.4 L, Hct 25.6 L, MCV 89.2, MCH 29.3, MCHC 32.8 D, RDW Std Deviation 48.9 H, RDW Coeff of Dipti 15.0 H, Plt Count 226, MPV 10.3, Immature Gran % (Auto) 1.100 H, Neut % (Auto) 77.3 H, Lymph % (Auto) 5.7 L, [place] % (Auto) 14.1 H, Eos % (Auto) 1.3, Baso % (Auto) 0.5, Absolute Neuts (auto) 6.6, Absolute Lymphs (auto) 0.49 L, Nucleated RBC % 0, Anisocytosis 1+ 09/13/22 05:35: Sodium 138, Potassium 2.8 L, Chloride 108 H, Carbon Dioxide 22.0, Anion Gap 8, BUN 8, Creatinine 0.50 L, Estim Creat Clear Calc 154.96, Est GFR (MDRD) Af Amer 215, Est GFR (MDRD) Non-Af 178, BUN/Creatinine Ratio 16.0, Glucose 98, Calcium 7.6 L, Total Bilirubin 0.80, AST 19, ALT 18, Alkaline Phosphatase 154 H, Total Protein 6.1 L, Albumin 2.1 L, Globulin 4.0, Albumin/Globulin Ratio 0.5 L Physical Exam Narrative General: Awake, difficulty answering orientation questions HEENT: Atraumatic, normocephalic Eyes: Anicteric, normal conjunctiva, extraocular movements grossly intact Neck: Supple Respiratory: Clear to auscultation bilaterally, normal respiratory effort Cardiovascular: Regular rate and rhythm GI: Soft, nondistended, does not seem to be tender to palpation, no rebound guarding or rigidity, Extremities: Some right upper extremity edema greater than left Musculoskeletal: Moving extremities in bed Neuro: No new overt focal neurological deficits Skin: No rashes appreciated Psych: Attempts to be cooperative Assessment & Plan Assessment/Plan (1) Acute gastrointestinal bleeding: PLAN: Plan #Acute GIB/Bright red blood per rectum/GI bleed -Recent discharge 08/30/2022 with evaluation at that time per general surgery with endoscopies with no obvious source of bleeding Represented 09/09 w/ BRBPR- -Hemoglobin 9.2 on admission which is similar to discharge on 08/30 when it was 8.8 however had episode of bleeding 2 hours before this was drawn -IV PPI -ASA and eliquis held -GI c/s, had lower prep w/ plan for colonoscopy -Passed bright red clots w/ bowel prep and hgb trended to 7.5 and had 1u prbc given -Colonoscopy 09/12 demonstrating mucosal ulceration which was biopsied and treated -Hemoglobin stable this a.m. -Continue to trend hemoglobin, aspirin and Eliquis held. Will resume once cleared to do so by GI #Chronic dysphagia 2/2 hx cva -On tube feeds but these were held for scopes #Atrial fibrillation -Eliquis held, restart once cleared to do so by GI -Cont metoprolol #History of CAD status post CABG/left MCA CVA on 06/29 -Continue statin, holding aspirin and Eliquis -Continue beta-leonardo with holding parameters #metastatic squamous cell carcinoma -Per oncology note 06/27, most likely from skin of face to right parotid gland and bones. #Hypertension -Continue to adjust regimen #Chronic stasis 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: Continue with aggressive offloading, barrier cream as well as dressings as needed and attempting to obtain soft protective sponge heel boots. #DVT ppx: SCDs Ashley Nowak MD Time spent in the patient's overall evaluation,decision-making process, review of diagnostic data, adjustment of management, discussion with other providers, nursing nursing and ancillary staff involved in patient's care documentation, 30 Minutes Charges/Coding Visit Charges Inpatient E&M: 61706 Subs Hosp L2
--- NOTE | 2022-09-13 11:03 | VDUE_ITS ---
Reason For Study: right arm swelling Right Proximal Right jugular vein is pulsatile, competent, compressible and demonstrates augmentation. Right subclavian vein is pulsatile, competent, compressible and demonstrates augmentation. Right Lower Arm Right radial vein is compressible. Right ulnar vein is compressible. Right Arm Right axillary vein is spontaneous, patent, phasic, competent, compressible and demonstrates augmentation. Right brachial vein is compressible. Right cephalic vein is compressible. Right basilic vein is compressible. Limited study due to pt inability to position. VL/Venous Duplex US, Unilateral Interpretation Summary Deep veins of the right upper extremity are patent and compressible segmentally . There is no evidence of deep vein thrombosis. Superficial veins of the right upper extremity are patent and compressible segm entally. There is no evidence of superficial vein thrombosis. Ordering Physician: Ashley Nowak Performed By: Cuate Valenzuela RVT ???
[2022-09-13] MEDS: Potassium Chloride 10mEq/100mL 10 MEQ/100 ML IV.SOLN. 100 MEQ IV BOLUS ×5 (11:41→21:12)
[2022-09-13] MEDS: amLODIPine 10 MG Tablet GT (13:50)
--- NOTE | 2022-09-13 14:59 | CASEMGMT ---
Addendum entered by Mirta Montiel 09/13/22 15:37: LLOYD GAO received call back from [facility] that they are not able to accept patient back as they feel he is appropriate for hospice. LLOYD GAO requested Berto at [facility] call and update regarding discharge from their services. LLOYD GAO called discharge planning assistance to work on HHC list and new HHC referrals. CM will continue to follow this patient and plan for a safe discharge. Original Note: LLOYD GAO called Maya to discuss needs at discharge. Per Maya, plan is for patient to return home with resumption of HHC with [facility]. LLOYD GAO sent referral to [facility] via [facility]. CM will continue to follow this patient and plan for a safe discharge.
--- NOTE | 2022-09-13 16:16 | CASEMGMT ---
Discharge Planning Previous agency unable to resume care. Referrals sent via [facility] to [facility], [facility], [facility], [facility], and [facility]. Priscila Gee
--- NOTE | 2022-09-13 18:43 | PN.GI_ITS ---
Subjective Subjective Patient underwent colonoscopy yesterday was discovered to have a large stercoral ulcer that was treated endoscopically. I had a long conversation with his and I thought this was secondary to chronic constipation although biopsies were taken. Objective Data Objective Data Vital Signs: Vital Signs Temp Pulse Resp BP Pulse Ox O2 Del Method O2 Flow Rate 99.1 F 77 18 154/70 H 96 Room Air 0 09/13/22 17:35 09/13/22 17:42 09/13/22 17:35 09/13/22 17:35 09/13/22 17:35 09/13/22 17:35 09/11/22 16:42 Oxygen Flow Rate (L/min) 0 Oxygen Delivery Method Room Air Weight: 161 lb 13.109 oz Body Mass Index (BMI) 21.9 Intake & Output: Intake and Output for Last 24 Hours 09/11/22 09/12/22 09/13/22 23:59 23:59 23:59 Intake Total 3655 / 3655 4715.75 / 4715.75 2588.33 / 2588.33 Output Total 2275 / 2275 2050 / 2050 2775 / 2775 Balance 1380 / 1380 2665.75 / 2665.75 -186.67 / -186.67 Lab / Micro Data Result Diagrams: 09/13/22 05:35 09/13/22 05:35 Labs: Laboratory Results - last 24 hr 09/09/22 10:35: Crossmatch See Detail 09/12/22 16:47: Crossmatch See Detail 09/12/22 23:00: Hgb 7.9 L, Hct 24.6 L 09/13/22 05:35: WBC 8.5, RBC 2.87 L, Hgb 8.4 L, Hct 25.6 L, MCV 89.2, MCH 29.3, MCHC 32.8 D, RDW Std Deviation 48.9 H, RDW Coeff of Dipti 15.0 H, Plt Count 226, MPV 10.3, Immature Gran % (Auto) 1.100 H, Neut % (Auto) 77.3 H, Lymph % (Auto) 5.7 L, [place] % (Auto) 14.1 H, Eos % (Auto) 1.3, Baso % (Auto) 0.5, Absolute Neuts (auto) 6.6, Absolute Lymphs (auto) 0.49 L, Nucleated RBC % 0, Anisocytosis 1+ 09/13/22 05:35: Sodium 138, Potassium 2.8 L, Chloride 108 H, Carbon Dioxide 22.0, Anion Gap 8, BUN 8, Creatinine 0.50 L, Estim Creat Clear Calc 154.96, Est GFR (MDRD) Af Amer 215, Est GFR (MDRD) Non-Af 178, BUN/Creatinine Ratio 16.0, Glucose 98, Calcium 7.6 L, Total Bilirubin 0.80, AST 19, ALT 18, Alkaline Phosphatase 154 H, Total Protein 6.1 L, Albumin 2.1 L, Globulin 4.0, Albumin/Globulin Ratio 0.5 L Radiography Diagnostic Testing: Radiology Impression Venous Doppler Study 09/13/22 11:03 Interpretation Summary Deep veins of the right upper extremity are patent and compressible segmentally. There is no evidence of deep vein thrombosis. Superficial veins of the right upper extremity are patent and compressible segmentally. There is no evidence of superficial vein thrombosis. Ordering Physician: Ashley Nowak Performed By: Cuate Valenzuela RVJoss ??? Physical Exam Narrative General: Awake, difficulty answering orientation questions HEENT: Atraumatic, normocephalic Eyes: Anicteric, normal conjunctiva, extraocular movements grossly intact Neck: Supple Respiratory: Clear to auscultation bilaterally, normal respiratory effort Cardiovascular: Regular rate and rhythm GI: Soft, nondistended, does not seem to be tender to palpation, no rebound guarding or rigidity, Extremities: Some right upper extremity edema greater than left Musculoskeletal: Moving extremities in bed Neuro: No new overt focal neurological deficits Skin: No rashes appreciated Psych: Attempts to be cooperative Assessment & Plan Assessment/Plan (1) ABLA (acute blood loss anemia): PLAN: Plan Bright red blood per rectum/GI bleed -The differential diagnosis includes hemorrhoidal, diverticular or ischemic disease. His hemoglobin is similar to when he was discharged from the hospital. He has been off of Eliquis. I do not know if he wants to undergo repeat upper or lower endoscopies to determine the source of bleeding. His tube feeds are on hold and his Eliquis and aspirin on hold. Chronic dysphagia -On tube feeds -Given possible need for intervention holding at this time Atrial fibrillation -Eliquis held 09/11: The plan is for an EGD and colonoscopy tomorrow if he is clear. If he is not clear tomorrow then we will continue to prep him with GoLytely through the PEG tube in we will attempt on . 09/13: Solitary rectal ulcer syndrome secondary to inability to move and constipation causing acute GI bleeding in the setting of Eliquis and aspirin. Await biopsies. I am okay with him going back on anticoagulation. Charges/Coding Visit Charges Inpatient E&M: 93123 Subs Hosp L3
[2022-09-13 19:10] LABS: Anion Gap 9 (5-15); BUN 8 mg/dL (7-18); BUN/Creat Ratio 13.8 RATIO (10-20); Calcium,Total 7.9 mg/dL (8.5-10.1); Chloride 106 mmol/L (98-107); Creatinine, Serum 0.58 mg/dL (0.70-1.30); EST Glomerular Filtration Rate 150 mL/min (>60); Est Glom Filt Rate - Afr Amer 181 mL/min (>60); Estimated Creatinine Clearance 133.58 ml/min; Glucose 93 mg/dL (74-106); Potassium 3.2 mmol/L (3.5-5.1); Sodium Level 137 mmol/L (136-145)
[2022-09-13] MEDS: Furosemide 40 MG Tablet GT (21:23)
[2022-09-13] MEDS: Tamsulosin HCl 0.4 MG Capsule PO (21:23)
[2022-09-13] MEDS: Jevity 1.5. 1,000 ML Bottle 250 ML GT (21:24)
[2022-09-13] MEDS: Doxazosin 4 MG Tablet GT (21:24)
[2022-09-13] MEDS: Atorvastatin Calcium 40 MG Tablet GT (21:24)
[2022-09-13] MEDS: 0.9% Saline Lock 10 ML Syringe IV (21:25)
[2022-09-14] VITALS (7 sets, daily range): BP systolic 146–168; BP diastolic 66–79; PULSE 68–72; RESP 16–18; TEMP 36.7–37.5; O2SAT 96–97; BMI 22.0
[2022-09-14] MEDS: oxyCODONE 5 MG Tablet 10 MG GT ×5 (01:38→20:59)
[2022-09-14] MEDS: Jevity 1.5. 1,000 ML Bottle 250 ML GT ×5 (05:47→21:02)
[2022-09-14 06:03] LABS: Absolute Neutrophil Count 7.5 X10^3/uL (2.0-7.7); Basophil# 0.03 X10^3/uL; Basophil% 0.3 % (0-1); Eosinophil# 0.09 X10^3/uL; Eosinophils% 0.9 % (0-5); Hematocrit 26.3 % (40-54); Hemoglobin 8.3 g/dL (13.0-16.5); Lymphocyte % 5.2 % (19-41); Mean Corp Hgb Conc 31.6 g/dL (32-36); Mean Corpuscular Hgb 28.1 pg (27.0-32.0); Mean Corpuscular Volume 89.2 fL (80-94); Mean Platelet Vol. 10.1 fl (6.2-12.0); Monocyte# 1.45 X10^3/uL; Monocyte% 15.1 % (0-10); NRBC Flagged by Analyzer 0 % (0-5); Neutrophil # 7.46 X10^3/uL (2.7-7.7); Neutrophil % 77.7 % (47-70); POSITIVE DIFFERENTIAL YES; Platelet Count 230 K/mm3 (150-450); RBC Distribution Width CV 14.8 % (11.6-14.6); RBC Distribution Width SD 47.9 fl (35.1-43.9); Red Blood Count 2.95 M/mm3 (4.6-6.2); White Blood Count 9.6 K/mm3 (4.4-11.0)
[2022-09-14 06:19] LABS: Differential Indicated SCAN CRITERIA MET
[2022-09-14 06:25] LABS: Anisocytosis 1+
[2022-09-14 06:44] LABS: ALB/GLOB Ratio 0.5 RATIO (0.9-2.4); AST(SGOT) 18 U/L (15-37); Alanine Aminotransfer ALT/SGPT 16 U/L (16-61); Albumin, Serum 2.1 g/dL (3.2-5.0); Alkaline Phosphatase 152 U/L (45-117); Anion Gap 7 (5-15); BUN 9 mg/dL (7-18); BUN/Creat Ratio 15.6 RATIO (10-20); Calcium,Total 7.5 mg/dL (8.5-10.1); Chloride 106 mmol/L (98-107); Creatinine, Serum 0.58 mg/dL (0.70-1.30); EST Glomerular Filtration Rate 151 mL/min (>60); Est Glom Filt Rate - Afr Amer 182 mL/min (>60); Estimated Creatinine Clearance 133.58 ml/min; Globulin 4.1 g/dL (2.2-4.2); Glucose 102 mg/dL (74-106); Potassium 3.2 mmol/L (3.5-5.1); Protein, Total 6.2 g/dL (6.4-8.2); Sodium Level 136 mmol/L (136-145)
[2022-09-14] MEDS: amLODIPine 10 MG Tablet GT (11:33)
[2022-09-14] MEDS: Carvedilol 12.5 MG Tablet GT ×2 (11:34→16:25)
[2022-09-14] MEDS: Lisinopril 20 MG Tablet GT (11:34)
[2022-09-14] MEDS: hydrALAZINE 50 MG Tablet GT ×2 (11:34→16:25)
[2022-09-14] MEDS: Allopurinol 100 MG Tablet GT (11:34)
[2022-09-14] MEDS: Polyethylene Glycol 3350 17 GM PACKET PO ×2 (11:42→21:01)
[2022-09-14] MEDS: APIXABAN 2.5 MG TABLET (WCH) PO ×2 (11:42→21:01)
[2022-09-14] MEDS: Potassium Chloride 10mEq/100mL 10 MEQ/100 ML IV.SOLN. 100 MEQ IV BOLUS ×2 (12:32→15:56)
--- NOTE | 2022-09-14 14:30 | CASEMGMT ---
LLOYD GAO in to discuss discharge needs and levels of care with . states that she is not ready for hospice and still want HHC setup. LLOYD GAO was notified after several referrals that [facility] is able to accept the patient. LLOYD GAO updated patient's . voiced appreciation. had no further questions or concerns at this time.
--- NOTE | 2022-09-14 14:43 | PCM.PN.HOSP ---
Reason for Visit Reason for Visit: Diagnoses Acute posthemorrhagic anemia (09/09/22) Gastrointestinal hemorrhage, unspecified (09/09/22) Subjective Subjective Patient resting in bed, still significant difficulty answering questions which is his baseline Objective Data Objective Data Vital Signs: Vital Signs Temp Pulse Resp BP Pulse Ox O2 Del Method O2 Flow Rate 98.7 F 69 16 168/66 H 97 Room Air 0 09/14/22 11:28 09/14/22 11:34 09/14/22 11:28 09/14/22 11:34 09/14/22 11:28 09/14/22 11:28 09/11/22 16:42 Oxygen Flow Rate (L/min) 0 Oxygen Delivery Method Room Air Weight: 73.7 kg Body Mass Index (BMI) 22.0 Intake & Output: Intake and Output for Last 24 Hours 09/12/22 09/13/22 09/14/22 23:59 23:59 23:59 Intake Total 4715.75 / 4715.75 4071.66 / 4071.66 1110 / 1110 Output Total 2049 / 2049 3275 / 3275 550 / 550 Balance 2665.75 / 2665.75 796.66 / 796.66 560 / 560 Lab / Micro Data Result Diagrams: 09/14/22 05:41 09/14/22 05:41 Labs: Laboratory Results - last 24 hr 09/13/22 18:30: Sodium 137, Potassium 3.2 L, Chloride 106, Carbon Dioxide 22.0, Anion Gap 9, BUN 8, Creatinine 0.58 L, Estim Creat Clear Calc 133.58, Est GFR (MDRD) Af Amer 181, Est GFR (MDRD) Non-Af 150, BUN/Creatinine Ratio 13.8, Glucose 93, Calcium 7.9 L 09/14/22 05:41: WBC 9.6, RBC 2.95 L, Hgb 8.3 L, Hct 26.3 L, MCV 89.2, MCH 28.1, MCHC 31.6 L, RDW Std Deviation 47.9 H, RDW Coeff of Dipti 14.8 H, Plt Count 230, MPV 10.1, Immature Gran % (Auto) 0.800, Neut % (Auto) 77.7 H, Lymph % (Auto) 5.2 L, [place] % (Auto) 15.1 H, Eos % (Auto) 0.9, Baso % (Auto) 0.3, Absolute Neuts (auto) 7.5, Absolute Lymphs (auto) 0.50 L, Nucleated RBC % 0, Anisocytosis 1+ 09/14/22 05:41: Sodium 136, Potassium 3.2 L, Chloride 106, Carbon Dioxide 23.0, Anion Gap 7, BUN 9, Creatinine 0.58 L, Estim Creat Clear Calc 133.58, Est GFR (MDRD) Af Amer 182, Est GFR (MDRD) Non-Af 151, BUN/Creatinine Ratio 15.6, Glucose 102, Calcium 7.5 L, Total Bilirubin 1.00, AST 18, ALT 16, Alkaline Phosphatase 152 H, Total Protein 6.2 L, Albumin 2.1 L, Globulin 4.1, Albumin/Globulin Ratio 0.5 L Physical Exam Narrative General: Awake, difficulty answering orientation questions HEENT: Atraumatic, normocephalic Eyes: Anicteric, normal conjunctiva, extraocular movements grossly intact Neck: Supple Respiratory: Clear to auscultation bilaterally, normal respiratory effort Cardiovascular: Regular rate and rhythm GI: Soft, nondistended, does not seem to be tender to palpation, no rebound guarding or rigidity, Extremities: Some right upper extremity edema greater than left but improving Musculoskeletal: Moving extremities in bed Neuro: Expressive aphasia Skin: No rashes appreciated Psych: Attempts to be cooperative Assessment & Plan Assessment/Plan (1) Acute gastrointestinal bleeding: PLAN: Plan #Acute GIB/Bright red blood per rectum/GI bleed -Recent discharge 08/30/2022 with evaluation at that time per general surgery with endoscopies with no obvious source of bleeding Represented 09/09 w/ [facility]- -Hemoglobin 9.2 on admission which is similar to discharge on 08/30 when it was 8.8 however had episode of bleeding 2 hours before this was drawn -IV PPI -ASA and eliquis held -GI c/s, had lower prep w/ plan for colonoscopy -Passed bright red clots w/ bowel prep and hgb trended to 7.5 and had 1u prbc given -Colonoscopy 09/12 demonstrating mucosal ulceration which was biopsied and treated -Hemoglobin stable this a.m. -Continue to trend hemoglobin, aspirin and Eliquis held. Will resume once cleared to do so by GI -09/14: Colonoscopy revealed the large stercoral ulcer that was treated endoscopically, this was biopsied but it is felt that this was likely due to constipation in setting of anticoagulation. We will start on bowel regimen scheduled and escalate as needed to avoid constipation. Anticoagulation resumed today, if hemoglobin stable in a.m. 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 #DVT ppx: Resuming Eliquis Ashley Nowak MD Time spent in the patient's overall evaluation,decision-making process, review of diagnostic data, adjustment of management, discussion with other providers, nursing nursing and ancillary staff involved in patient's care documentation, 40 minutes Charges/Coding Visit Charges Inpatient E&M: 77617 [facility] Hosp L3
--- NOTE | 2022-09-14 15:28 | CASEMGMT ---
Discharge Planning HH referral sent via [facility] to 25+ agencies. [facility] accepted. Priscila Gee
[2022-09-14] MEDS: Potassium Chloride Oral Soln 20 MEQ/15 ML UDC 40 MEQ GT (16:30)
--- NOTE | 2022-09-14 16:47 | EX.PCM.PN.GI ---
Subjective Subjective Patient in bed without any new complaints. Objective Data Objective Data Vital Signs: Vital Signs Temp Pulse Resp BP Pulse Ox O2 Del Method O2 Flow Rate 98.1 F 68 16 147/71 H 97 Room Air 0 09/14/22 16:18 09/14/22 16:25 09/14/22 16:18 09/14/22 16:25 09/14/22 16:18 09/14/22 16:18 09/11/22 16:42 Oxygen Flow Rate (L/min) 0 Oxygen Delivery Method Room Air Weight: 162 lb 7.691 oz Body Mass Index (BMI) 22.0 Intake & Output: Intake and Output for Last 24 Hours 09/12/22 09/13/22 09/14/22 23:59 23:59 23:59 Intake Total 4715.75 / 4715.75 4071.66 / 4071.66 1300 / 1300 Output Total 2049 / 2049 3275 / 3275 550 / 550 Balance 2665.75 / 2665.75 796.66 / 796.66 750 / 750 Lab / Micro Data Result Diagrams: 09/14/22 05:41 09/14/22 05:41 Labs: Laboratory Results - last 24 hr 09/13/22 18:30: Sodium 137, Potassium 3.2 L, Chloride 106, Carbon Dioxide 22.0, Anion Gap 9, BUN 8, Creatinine 0.58 L, Estim Creat Clear Calc 133.58, Est GFR (MDRD) Af Amer 181, Est GFR (MDRD) Non-Af 150, BUN/Creatinine Ratio 13.8, Glucose 93, Calcium 7.9 L 09/14/22 05:41: WBC 9.6, RBC 2.95 L, Hgb 8.3 L, Hct 26.3 L, MCV 89.2, MCH 28.1, MCHC 31.6 L, RDW Std Deviation 47.9 H, RDW Coeff of Dipti 14.8 H, Plt Count 230, MPV 10.1, Immature Gran % (Auto) 0.800, Neut % (Auto) 77.7 H, Lymph % (Auto) 5.2 L, [place] % (Auto) 15.1 H, Eos % (Auto) 0.9, Baso % (Auto) 0.3, Absolute Neuts (auto) 7.5, Absolute Lymphs (auto) 0.50 L, Nucleated RBC % 0, Anisocytosis 1+ 09/14/22 05:41: Sodium 136, Potassium 3.2 L, Chloride 106, Carbon Dioxide 23.0, Anion Gap 7, BUN 9, Creatinine 0.58 L, Estim Creat Clear Calc 133.58, Est GFR (MDRD) Af Amer 182, Est GFR (MDRD) Non-Af 151, BUN/Creatinine Ratio 15.6, Glucose 102, Calcium 7.5 L, Total Bilirubin 1.00, AST 18, ALT 16, Alkaline Phosphatase 152 H, Total Protein 6.2 L, Albumin 2.1 L, Globulin 4.1, Albumin/Globulin Ratio 0.5 L Physical Exam Narrative General: Awake, difficulty answering orientation questions HEENT: Atraumatic, normocephalic Eyes: Anicteric, normal conjunctiva, extraocular movements grossly intact Neck: Supple Respiratory: Clear to auscultation bilaterally, normal respiratory effort Cardiovascular: Regular rate and rhythm GI: Soft, nondistended, does not seem to be tender to palpation, no rebound guarding or rigidity, Extremities: Some right upper extremity edema greater than left but improving Musculoskeletal: Moving extremities in bed Neuro: Expressive aphasia Skin: No rashes appreciated Psych: Attempts to be cooperative Assessment & Plan Assessment/Plan (1) ABLA (acute blood loss anemia): PLAN: Plan Bright red blood per rectum/GI bleed -The differential diagnosis includes hemorrhoidal, diverticular or ischemic disease. His hemoglobin is similar to when he was discharged from the hospital. He has been off of Eliquis. I do not know if he wants to undergo repeat upper or lower endoscopies to determine the source of bleeding. His tube feeds are on hold and his Eliquis and aspirin on hold. Chronic dysphagia -On tube feeds -Given possible need for intervention holding at this time Atrial fibrillation -Eliquis held 09/11: The plan is for an EGD and colonoscopy tomorrow if he is clear. If he is not clear tomorrow then we will continue to prep him with GoLytely through the PEG tube in we will attempt on . 09/13: Solitary rectal ulcer syndrome secondary to inability to move and constipation causing acute GI bleeding in the setting of Eliquis and aspirin. Await biopsies. I am okay with him going back on anticoagulation. 09/14: There has been no more signs of bleeding. He will need a repeat colonoscopy or flexible sigmoidoscopy as an outpatient to ensure that the ulcer is healing. Recommend Colace 100 mg via PEG twice daily and lactulose 30 cc via PEG twice a day. Charges/Coding Visit Charges Inpatient E&M: 92856 Subs Hosp L3
[2022-09-14] MEDS: Tamsulosin HCl 0.4 MG Capsule PO (21:01)
[2022-09-14] MEDS: Furosemide 40 MG Tablet GT (21:01)
[2022-09-14] MEDS: Atorvastatin Calcium 40 MG Tablet GT (21:01)
[2022-09-14] MEDS: Doxazosin 4 MG Tablet GT (21:01)
[2022-09-14] MEDS: Docusate Sodium 100 MG/10 ML UDC GT (21:05)
[2022-09-14] MEDS: Lactulose 20 GM/30 ML UDC 30 GM GT (21:06)
[2022-09-15] VITALS (8 sets, daily range): BP systolic 143–157; BP diastolic 63–81; PULSE 68–73; RESP 16–18; TEMP 36.5–37.4; O2SAT 97–98; BMI 22.1
[2022-09-15] MEDS: oxyCODONE 5 MG Tablet 10 MG GT ×3 (00:01→08:21)
[2022-09-15] MEDS: MELATONIN 3 MG TABLET GT (00:01)
[2022-09-15] MEDS: Jevity 1.5. 1,000 ML Bottle 250 ML GT ×3 (06:31→14:24)
[2022-09-15 06:36] LABS: Absolute Lymphocyte Count 0.51 X10^3/uL (0.83-4.51); Absolute Neutrophil Count 6.3 X10^3/uL (2.0-7.7); Basophil# 0.03 X10^3/uL; Basophil% 0.4 % (0-1); Eosinophils% 1.2 % (0-5); Hematocrit 23.9 % (40-54); Hemoglobin 7.6 g/dL (13.0-16.5); Lymphocyte # 0.51 X10^3/ul (0.83-4.51); Lymphocyte % 6.4 % (19-41); Mean Corp Hgb Conc 31.8 g/dL (32-36); Mean Corpuscular Hgb 28.3 pg (27.0-32.0); Mean Corpuscular Volume 88.8 fL (80-94); Mean Platelet Vol. 9.9 fl (6.2-12.0); Monocyte# 1.05 X10^3/uL; Monocyte% 13.1 % (0-10); NRBC Flagged by Analyzer 0 % (0-5); Neutrophil # 6.28 X10^3/uL (2.7-7.7); Neutrophil % 78.4 % (47-70); POSITIVE DIFFERENTIAL YES; Platelet Count 217 K/mm3 (150-450); RBC Distribution Width CV 14.9 % (11.6-14.6); RBC Distribution Width SD 48.4 fl (35.1-43.9); Red Blood Count 2.69 M/mm3 (4.6-6.2)
[2022-09-15 06:50] LABS: Differential Indicated SCAN CRITERIA MET
[2022-09-15 06:59] LABS: Differential Comment SCANNED
[2022-09-15 07:12] LABS: Anion Gap 6 (5-15); BUN 10 mg/dL (7-18); BUN/Creat Ratio 16.2 RATIO (10-20); Calcium,Total 7.3 mg/dL (8.5-10.1); Chloride 105 mmol/L (98-107); Creatinine, Serum 0.62 mg/dL (0.70-1.30); EST Glomerular Filtration Rate 140 mL/min (>60); Est Glom Filt Rate - Afr Amer 169 mL/min (>60); Estimated Creatinine Clearance 126.16 ml/min; Glucose 113 mg/dL (74-106); Potassium 3.4 mmol/L (3.5-5.1); Sodium Level 135 mmol/L (136-145)
[2022-09-15] MEDS: Potassium Chloride Oral Soln 20 MEQ/15 ML UDC 40 MEQ GT (08:20)
[2022-09-15] MEDS: Docusate Sodium 100 MG/10 ML UDC GT (08:21)
[2022-09-15] MEDS: hydrALAZINE 50 MG Tablet GT ×2 (08:21→14:24)
[2022-09-15] MEDS: APIXABAN 2.5 MG TABLET (WCH) PO (08:21)
[2022-09-15] MEDS: Polyethylene Glycol 3350 17 GM PACKET PO (08:21)
[2022-09-15] MEDS: Lactulose 20 GM/30 ML UDC 30 GM GT (08:21)
[2022-09-15] MEDS: Aspirin 81 MG TAB.CHEW PO (08:21)
[2022-09-15] MEDS: Carvedilol 12.5 MG Tablet GT (08:21)
[2022-09-15] MEDS: Lisinopril 20 MG Tablet GT (08:21)
[2022-09-15] MEDS: Allopurinol 100 MG Tablet GT (08:21)
--- NOTE | 2022-09-15 10:04 | DCINST_ITS ---
Discharge Instructions Diet Discharge Diet: - (Resume tube feeds) Activity Discharge Activity: - (Return to previous level activity) Follow Up Care Test Results: Test results from this visit will be discussed in further detail at your follow- up appointment, if applicable. Discharge Plan Admission Admit Date/Time: 09/09/22 12:31 Primary Reason for Your Visit: GI bleed Attending Provider: Ashley Nowak Primary Care Provider: Delgado Smith Consulting Providers: Ashley Nowak ; Corine Flores Instructions Patient Instructions: Treating Constipation, Cancer Constipation Tips, ED Constipation (Adult) Additional Instructions / Restrictions: DISCHARGE INSTRUCTIONS PLEASE READ *Please take this with you to your next doctors appointment* -It will be important to avoid constipation to help decrease risk of bleeding moving forward. Advised lactulose twice daily and docusate twice daily down gtube, may need an additional agent added to help keep bowel movements regular if this is not sufficient -Would recommend lab work (CBC) to check your hemoglobin in 3 to 5 days and a BMP to check your potassium in 3 to 5 days through your primary care physician's office. Please call their office upon discharge to obtain order for lab work. -You will need to follow-up with Dr. Flores with GI in his office upon discharge. Please call his office to schedule your hospital follow-up appointment (ph. [phone]) -Please follow-up with oncology upon discharge. It was indicated that you have an appointment next week, I will be important for you to keep this appointment -Please continue taking your carvedilol, metoprolol tartrate was still on her ho me medication list, it is important that you do not take both of these together. -Continue home tube feeds as previously prescribed, Jevity 1.5, 250 mL through G-tube 5 times per day with 90 mL flushes before and after -Please call your primary care provider's office upon discharge to schedule a hospital follow up within 1 week. -For any concerning signs or symptoms please call 911 or proceed to the nearest emergency department Discharge Orders/Prescriptions Prescriptions: New docusate sodium 50 mg/5 mL Liquid 100 mg G-tube BID 30 Days Qty: 600 0RF lactulose 20 gram/30 mL Solution 30 g G-tube BID 30 Days Qty: 2700 0RF Continued nitroglycerin 0.4 mg tablet, sublingual 0.4 mg sublingual Q5M PRN (Reason: Cardiac/Chest Pain) Qty: 25 6RF Keytruda 25 mg/mL solution 25 mg IV .UD acetaminophen 650 mg Suppository 650 mg KS Q4H PRN PRN (Reason: Fever) tamsulosin 0.4 mg capsule 0.4 mg PO QHS 30 Days Qty: 30 0RF carvedilol 12.5 mg Tablet 12.5 mg G-tube BID Qty: 60 0RF polyethylene glycol 3350 17 gram Powder In Packet 17 g G-tube BID 30 Days Qty: 30 0RF Rx Instructions: hold for loose stools furosemide 40 mg tablet 40 mg feeding tube QHS 30 Days Qty: 30 0RF atorvastatin 40 mg tablet 40 mg feeding tube QHS Qty: 90 3RF allopurinol 100 mg tablet 100 mg feeding tube DAILY Qty: 30 0RF aspirin 81 MG tablet 81 mg feeding tube DAILY Qty: 30 0RF amlodipine 10 mg tablet 10 mg feeding tube DAILY Qty: 30 0RF Rx Instructions: Hold for SBP less than 130 mmHg bisacodyl 10 mg Suppository 10 mg KS DAILY PRN (Reason: Constipation) Qty: 12 0RF doxazosin 4 mg Tablet 4 mg feeding tube QHS 30 Days Qty: 30 0RF hydralazine 50 mg tablet 50 mg feeding tube TID 90 Days Qty: 270 3RF ergocalciferol (vitamin D2) 1,250 mcg (50,000 unit) capsule 1,250 mcg feeding tube SA Qty: 7 0RF Label Comments: TAKE 1 CAPSULE BY MOUTH WEEKLY FOR 90 DAYS oxycodone 10 mg tablet 10 mg feeding tube Q4H PRN (Reason: Pain) 3 Days Qty: 1 0RF Eliquis 2.5 mg tablet 2.5 mg feeding tube BID 30 Days Qty: 60 1RF baclofen 5 mg Granules In Packet 5 mg feeding tube TID PRN (Reason: Muscle Spasm) Qty: 90 0RF lansoprazole 30 mg capsule,delayed release(DR/EC) 30 mg feeding tube DAILY Qty: 60 0RF lisinopril 20 mg tablet 20 mg PO BID Label Comments: TAKE 1 TABLET BY MOUTH IN THE MORNING AND IN THE EVENING methadone 5 mg tablet 5 mg PO BID Discontinued sennosides-docusate sodium [Senexon-S] 8.6-50 mg tablet 2 tab PO QHS Qty: 30 0RF metoprolol tartrate 25 mg tablet 25 mg PO BID Label Comments: TAKE 1 TAB BY MOUTH TWICE A DAY Referrals / Follow Up: Delgado Smith DO [Primary Care Provider] - Within 1 Week Hang Carrera MD [Med Staff - Active Staff] - See Referral Note (Please follow-up with your cancer doctor next week as scheduled) Abel Flores DO [Med Staff - Active Staff] - See Referral Note (You will need to follow-up with Dr. Flores with GI in his office upon discharge. Please call his office to schedule your hospital follow-up appointment (ph. [phone])) Disposition Disposition (needs filled in before D/C Order can be placed): Home Health Service
--- NOTE | 2022-09-15 10:11 | DS.PCM_ITS ---
Providers Date of Admission: 09/09/22 Date of Discharge: 09/15/22 Primary Care Physician: Dr. Delgado Smith, Consultations 09/10/22 05:55 Consult: Gastroenterology AM (NON MEDS) Consulting Provider: [facility] Reason for Consult: GIB, BRBPR, recent scope w/ surgery without located source, rebleeding EMERGENT Consult: No MD Notified: Yes Date Notified: 09/09/22 Time Notified: 12:47 Method of Notification: Text Reason For Visit: ACUTE GI BLEED, ALTERED MENTAL STATUS Diagnosis Discharge Diagnosis (1) ABLA (acute blood loss anemia): Status: Resolved Code(s): D62 - Acute posthemorrhagic anemia Plan #Lower GI bleed secondary to stercoral ulcer #Chronic constipation #Acute GIB/Bright red blood per rectum/GI bleed #Chronic dysphagia 2/2 hx cva #Atrial fibrillation #History of CAD status post CABG/left MCA CVA on 06/29 #metastatic squamous cell carcinoma #Hypertension #Chronic stasis 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 Medications at Discharge Home Medications nitroglycerin 0.4 mg sublingual tablet 0.4 mg sublingual Q5M PRN Cardiac/Chest Pain #25 tabs 10/17/18 pembrolizumab 25 mg/mL intravenous solution (Keytruda) 25 mg IV .UD CANCER 09/13/21 acetaminophen 650 mg rectal suppository 650 mg VA Q4H PRN PRN Fever 08/10/22 tamsulosin 0.4 mg capsule 0.4 mg PO QHS prostate 30 days #30 caps 08/17/22 allopurinol 100 mg tablet 100 mg feeding tube DAILY gout #30 tabs 08/30/22 amlodipine 10 mg tablet 10 mg feeding tube DAILY bp #30 tabs 08/30/22 apixaban 2.5 mg tablet (Eliquis) 2.5 mg feeding tube BID 30 days #60 tabs 08/30/22 aspirin 81 mg tablet,delayed release 81 mg feeding tube DAILY heart health #30 tabs 08/30/22 atorvastatin 40 mg tablet 40 mg feeding tube QHS cholesterol #90 tabs 08/30/22 baclofen 5 mg oral granules in packet 5 mg feeding tube TID PRN Muscle Spasm #90 ea 08/30/22 bisacodyl 10 mg rectal suppository 10 mg VA DAILY PRN Constipation #12 ea 08/30/22 carvedilol 12.5 mg tablet 12.5 mg G-tube BID #60 tabs 08/30/22 doxazosin 4 mg tablet 4 mg feeding tube QHS BPH 30 days #30 tabs 08/30/22 ergocalciferol (vitamin D2) 1,250 mcg (50,000 unit) capsule 1,250 mcg feeding tube SA SUPPLEMENT #7 caps 08/30/22 furosemide 40 mg tablet 40 mg feeding tube QHS water 30 days #30 tabs 08/30/22 hydralazine 50 mg tablet 50 mg feeding tube TID 90 days #270 tabs 08/30/22 lansoprazole 30 mg capsule,delayed release 30 mg feeding tube DAILY #60 caps 08/30/22 oxycodone 10 mg tablet 10 mg feeding tube Q4H PRN Pain 3 days #1 TAB 08/30/22 polyethylene glycol 3350 17 gram oral powder packet 17 g G-tube BID 30 days #30 ea 08/30/22 lisinopril 20 mg tablet 20 mg PO BID HTN 09/09/22 methadone 5 mg tablet 5 mg PO BID PAIN, metastatic CA 09/09/22 docusate sodium 50 mg/5 mL oral liquid 100 mg (10 mL) G-tube BID 30 days #600 mL 09/15/22 lactulose 20 gram/30 mL oral solution 30 g (45 mL) G-tube BID 30 days #2,700 mL 09/15/22 Hospital Course Procedures - (Colonoscopy) Summary of Care Provided Minutes Spent on Discharge: 36 Hospital Course: CLAY RUBIO, is a 62 M with metastatic renal cell carcinoma to the bone, A-fib, CAD status post CABG, CVA who presented to [facility] 09/09/2022 with BRBPR.? He was recently admitted 2 weeks ago and discharged 08/30 after a similar presentation where he had upper and lower endoscopy with surgery but no bleeding diathesis was found.? Given he was stable and hemoglobin stable he was discharged back on his Eliquis and aspirin. He Re-presented with episode of bright red blood per rectum noted by his when she went to roll/change him and there is no stool, only blood. His aspirin and Eliquis were held and GI was consulted. He underwent a bowel prep and had colonoscopy completed 08/13 which demonstrated mucosal alteration which was biopsied and treated and felt to be a large stercoral ulcer secondary to his chronic constipation exacerbated by his chronic opioid use. Hemoglobin was stable and he was cleared to resume his anticoagulation. Eliquis and aspirin were resumed and hemoglobin monitored overnight. Slightly lower than the day previous but no bleeding noted and no significant drop and likely within the margin of error of lab analysis in addition to his multiple lab draws. Feel he stable for home with outpatient follow-up with GI and oncology. On day of discharge patient still with expr essive aphasia but also spoke with his who verbalized understanding of discharge. Patient had not had any bleeding per rectum or blood from anywhere else per report and was tolerating tube feeds. Additionally did have some swelling in his right arm greater than left but duplex negative for any thrombus and swelling did slowly start to improve. Of note SNF was recommended by physical therapy but patient/ only agreeable to [facility] who do not feel he is appropriate for the unit and they do not want to pursue other placement. They wanted to go home with home health, multiple referral sent and they were denied by 25 home health agencies due to them not feeling they could meet their needs. Had discussed hospice with patient and his , patient unable to give input consistently due to his expressive aphasia and patient's refused. Ultimately home health agency was agreeable and will start next week. Discharge instructions as followed: DISCHARGE INSTRUCTIONS PLEASE READ *Please take this with you to your next doctors appointment* -It will be important to avoid constipation to help decrease risk of bleeding moving forward.? Advised lactulose twice daily and docusate twice daily down gtube, may need an additional agent added to help keep bowel movements regular if this is not sufficient -Would recommend lab work (CBC) to check your hemoglobin in 3 to 5 days and a BMP to check your potassium in 3 to 5 days through your primary care physician's office.? Please call their office upon discharge to obtain order for lab work. -You will need to follow-up with Dr. Flores with GI in his office upon discharge.? Please call his office to schedule your hospital follow-up appointment (ph. [phone]) -Please follow-up with oncology upon discharge.? It was indicated that you have an appointment next week, I will be important for you to keep this appointment -Please continue taking your carvedilol, metoprolol tartrate was still on her home medication list, it is important that you do not take both of these together. -Continue home tube feeds as previously prescribed, Jevity 1.5, 250 mL through G-tube 5 times per day with 90 mL flushes before and after -Please call your primary care provider's office upon discharge to schedule a hospital follow up within 1 week. -For any concerning signs or symptoms please call 911 or proceed to the nearest emergency department Physical Exam Narrative General: Awake, difficulty answering orientation questions HEENT: Atraumatic, normocephalic Eyes: Anicteric, normal conjunctiva, extraocular movements grossly intact Neck: Supple Respiratory: Clear to auscultation bilaterally, normal respiratory effort Cardiovascular: Regular rate and rhythm GI: Soft, nondistended, does not seem to be tender to palpation, no rebound guarding or rigidity, Extremities: Some right upper extremity edema greater than left but improving Musculoskeletal: Moving extremities in bed Neuro: Expressive aphasia Skin: No rashes appreciated Psych: Attempts to be cooperative Weight / BMI Weight Weight: 74.1 kg Body Mass Index (BMI) 22.1 ABG / Lab / Microbiology Data Result Diagrams: 09/15/22 06:19 09/15/22 06:19 Laboratory: Laboratory Results - last 24 hr 09/15/22 06:19: WBC 8.0, RBC 2.69 L, Hgb 7.6 L, Hct 23.9 L, MCV 88.8, MCH 28.3, MCHC 31.8 L, RDW Std Deviation 48.4 H, RDW Coeff of Dipti 14.9 H, Plt Count 217, MPV 9.9, Immature Gran % (Auto) 0.500, Neut % (Auto) 78.4 H, Lymph % (Auto) 6.4 L, [place] % (Auto) 13.1 H, Eos % (Auto) 1.2, Baso % (Auto) 0.4, Absolute Neuts (auto) 6.3, Absolute Lymphs (auto) 0.51 L, Nucleated RBC % 0, Differential Comment SCANNED 09/15/22 06:19: Sodium 135 L, Potassium 3.4 L, Chloride 105, Carbon Dioxide 24.0, Anion Gap 6, BUN 10, Creatinine 0.62 L, Estim Creat Clear Calc 126.16, Est GFR (MDRD) Af Amer 169, Est GFR (MDRD) Non-Af 140, BUN/Creatinine Ratio 16.2, Glucose 113 H, Calcium 7.3 L D/C Instructions Discharge Diet: - (Resume tube feeds) Meaningful Use Info Meaningful Use Diagnoses (Choose all that apply): None applicable Discharge Plan Admission Admit Date/Time: 09/09/22 12:31 Primary Reason for Your Visit: GI bleed Attending Provider: Ashley Nowak Primary Care Provider: Delgado Smith Consulting Providers: Ashley Nowak ; Corine Flores Instructions Patient Instructions: Treating Constipation, Cancer Constipation Tips, ED Constipation (Adult) Additional Instructions / Restrictions: DISCHARGE INSTRUCTIONS PLEASE READ *Please take this with you to your next doctors appointment* -It will be important to avoid constipation to help decrease risk of bleeding moving forward. Advised lactulose twice daily and docusate twice daily down gtu be, may need an additional agent added to help keep bowel movements regular if this is not sufficient -Would recommend lab work (CBC) to check your hemoglobin in 3 to 5 days and a BMP to check your potassium in 3 to 5 days through your primary care physician's office. Please call their office upon discharge to obtain order for lab work. -You will need to follow-up with Dr. Flores with GI in his office upon discharge. Please call his office to schedule your hospital follow-up appointment (ph. [phone]) -Please follow-up with oncology upon discharge. It was indicated that you have an appointment next week, I will be important for you to keep this appointment -Please continue taking your carvedilol, metoprolol tartrate was still on her home medication list, it is important that you do not take both of these together. -Continue home tube feeds as previously prescribed, Jevity 1.5, 250 mL through G-tube 5 times per day with 90 mL flushes before and after -Please call your primary care provider's office upon discharge to schedule a hospital follow up within 1 week. -For any concerning signs or symptoms please call 911 or proceed to the nearest emergency department Discharge Orders/Prescriptions Prescriptions: New docusate sodium 50 mg/5 mL Liquid 100 mg G-tube BID 30 Days Qty: 600 0RF lactulose 20 gram/30 mL Solution 30 g G-tube BID 30 Days Qty: 2700 0RF Continued nitroglycerin 0.4 mg tablet, sublingual 0.4 mg sublingual Q5M PRN (Reason: Cardiac/Chest Pain) Qty: 25 6RF Keytruda 25 mg/mL solution 25 mg IV .UD acetaminophen 650 mg Suppository 650 mg VA Q4H PRN PRN (Reason: Fever) tamsulosin 0.4 mg capsule 0.4 mg PO QHS 30 Days Qty: 30 0RF carvedilol 12.5 mg Tablet 12.5 mg G-tube BID Qty: 60 0RF polyethylene glycol 3350 17 gram Powder In Packet 17 g G-tube BID 30 Days Qty: 30 0RF Rx Instructions: hold for loose stools furosemide 40 mg tablet 40 mg feeding tube QHS 30 Days Qty: 30 0RF atorvastatin 40 mg tablet 40 mg feeding tube QHS Qty: 90 3RF allopurinol 100 mg tablet 100 mg feeding tube DAILY Qty: 30 0RF aspirin 81 MG tablet 81 mg feeding tube DAILY Qty: 30 0RF amlodipine 10 mg tablet 10 mg feeding tube DAILY Qty: 30 0RF Rx Instructions: Hold for SBP less than 130 mmHg bisacodyl 10 mg Suppository 10 mg VA DAILY PRN (Reason: Constipation) Qty: 12 0RF doxazosin 4 mg Tablet 4 mg feeding tube QHS 30 Days Qty: 30 0RF hydralazine 50 mg tablet 50 mg feeding tube TID 90 Days Qty: 270 3RF ergocalciferol (vitamin D2) 1,250 mcg (50,000 unit) capsule 1,250 mcg feeding tube SA Qty: 7 0RF Label Comments: TAKE 1 CAPSULE BY MOUTH WEEKLY FOR 90 DAYS oxycodone 10 mg tablet 10 mg feeding tube Q4H PRN (Reason: Pain) 3 Days Qty: 1 0RF Eliquis 2.5 mg tablet 2.5 mg feeding tube BID 30 Days Qty: 60 1RF baclofen 5 mg Granules In Packet 5 mg feeding tube TID PRN (Reason: Muscle Spasm) Qty: 90 0RF lansoprazole 30 mg capsule,delayed release(DR/EC) 30 mg feeding tube DAILY Qty: 60 0RF lisinopril 20 mg tablet 20 mg PO BID Label Comments: TAKE 1 TABLET BY MOUTH IN THE MORNING AND IN THE EVENING methadone 5 mg tablet 5 mg PO BID Discontinued sennosides-docusate sodium [Senexon-S] 8.6-50 mg tablet 2 tab PO QHS Qty: 30 0RF metoprolol tartrate 25 mg tablet 25 mg PO BID Label Comments: TAKE 1 TAB BY MOUTH TWICE A DAY Referrals / Follow Up: Delgado Smith DO [Primary Care Provider] - Within 1 Week Hang Carrera MD [Med Staff - Active Staff] - See Referral Note (Please follow-up with your cancer doctor next week as scheduled) Abel Flores DO [Med Staff - Active Staff] - See Referral Note (You will need to follow-up with Dr. Flores with GI in his office upon discharge. Please call his office to schedule your hospital follow-up appointment (ph. [phone])) Disposition Disposition (needs filled in before D/C Order can be placed): Home Health Service Charges/Coding Visit Charges Inpatient E&M: 46049 Disch Hosp >30min
[2022-09-15] MEDS: 0.9% Saline Lock 10 ML Syringe IV (10:56)
[2022-09-15] MEDS: amLODIPine 10 MG Tablet GT (14:24)
== END 2022-09-15 17:24 | disposition home health service (06) | DRG 394 ==
LOC: ED 12:04 → PCU 12:44
PROVIDERS: Family Medicine; Internal Medicine Gastroenterology; Admitting Provider Internal Medicine; Emergency Provider Emergency Medicine; PCP Family Medicine; Visit Provider Internal Medicine
PROC: 0DJD8ZZ Inspection of Lower Intestinal Tract, Via Natural or Artificial Opening Endoscopic (ICD-10-PCS; CPT 45378; principal; 2022-09-12 13:25)
DX: K62.6 Ulcer of anus and rectum (principal); C79.51 Secondary malignant neoplasm of bone; I69.351 Hemiplegia and hemiparesis following cerebral infarction affecting right dominant side; I50.32 Chronic diastolic (congestive) heart failure; D62 Acute posthemorrhagic anemia; K62.5 Hemorrhage of anus and rectum; E11.40 Type 2 diabetes mellitus with diabetic neuropathy, unspecified; E11.51 Type 2 diabetes mellitus with diabetic peripheral angiopathy without gangrene; I48.91 Unspecified atrial fibrillation; I11.0 Hypertensive heart disease with heart failure; Z93.1 Gastrostomy status; I69.391 Dysphagia following cerebral infarction; E78.5 Hyperlipidemia, unspecified; I25.10 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of native coronary artery without angina pectoris; K59.09 Other constipation; M79.89 Other specified soft tissue disorders; I69.320 Aphasia following cerebral infarction; M10.9 Gout, unspecified; F10.10 Alcohol abuse, uncomplicated; C44.42 Squamous cell carcinoma of skin of scalp and neck; G89.4 Chronic pain syndrome; N40.0 Benign prostatic hyperplasia without lower urinary tract symptoms; Y90.9 Presence of alcohol in blood, level not specified; Z95.1 Presence of aortocoronary bypass graft; Z79.01 Long term (current) use of anticoagulants; Z79.82 Long term (current) use of aspirin; Z79.891 Long term (current) use of opiate analgesic; Z79.899 Other long term (current) drug therapy
CPT/HCPCS: 36415; 80048; 80053; 83036; 85014; 85018; 85025; 85610; 85730; 86850; 86900; 86901; 86920; 86922; 88305; 93005; 93971; 97110; 97163; 97167; 97530; 97535; 97802; 97803; 99285; J7030; J7040; J7120; P9016; A4216; J2405; J3490

== ENCOUNTER 2022-09-17 18:08 | Inpatient (IN) | payer MEDICARE, MEDICAID, SELFPAY ==
[2022-09-17 18:08] VITALS: BP 142/58; PULSE 66; RESP 16; TEMP 37.2; O2SAT 96; BMI 23.1
--- NOTE | 2022-09-17 18:35 | EDS_ITS ---
HPI HPI - GI History of Present Illness Chief Complaint: GI Bleed Detail of Chief Complaint: Concern for rectal bleeding Informant: EMS Narrative Narrative: Patient presents with rectal bleeding. Patient presents from home. Patient has had prior stroke and cannot give history but answers yes to every question. Per EMS apparently was concerned that he may be having rectal bleeding again. Family is not with him here at this time. History very limited. [facility] Medical History Abdominal pain Acute bronchitis RAFA (acute kidney injury) Alcohol abuse Anemia Aspiration into airway Atherosclerosis of coronary artery without angina pectoris 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[place] coronary artery w/angina pectoris Bacteremia Bone cancer Bradycardia Cataracts, both eyes Cerebral arteriosclerosis with history of previous cerebrovascular accident Charcot's joint, left ankle and foot Chronic anemia Chronic anticoagulation Chronic diastolic (congestive) heart failure Chronic pain Diabetes mellitus, type II Diabetic retinopathy Diastolic dysfunction with acute on chronic heart failure Dysphagia Essential hypertension GERD (gastroesophageal reflux disease) Hammer toe of left foot History of embolic stroke HLD (hyperlipidemia) Hyponatremia Infection of left foot Iron deficiency anemia Malignant neoplasm of parotid gland Metastatic squamous cell carcinoma 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 MSSA bacteremia Nephrotic syndrome Neuropathy Non-smoker Normocytic anemia Obesity (BMI 30.0-34.9) Osteomyelitis PAD (peripheral artery disease) Postoperative atrial fibrillation (06/12/18) 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) Secondary pulmonary arterial hypertension Sinus bradycardia Syncope Type 2 diabetes mellitus Ulcer of left foot UTI (urinary tract infection) Home Medications nitroglycerin 0.4 mg sublingual tablet 0.4 mg sublingual Q5M PRN Cardiac/Chest Pain #25 tabs 10/17/18 [Rx Last Taken 08/08/19] pembrolizumab 25 mg/mL intravenous solution (Keytruda) 25 mg IV .UD CANCER 09/13/21 [History Last Taken 06/06/22] acetaminophen 650 mg rectal suppository 650 mg NM Q4H PRN PRN Fever 08/10/22 [History Last Taken Unknown] tamsulosin 0.4 mg capsule 0.4 mg PO QHS prostate 30 days #30 caps 08/17/22 [Rx Last Taken 09/08/22] allopurinol 100 mg tablet 100 mg feeding tube DAILY gout #30 tabs 08/30/22 [Rx Last Taken 09/08/22] amlodipine 10 mg tablet 10 mg feeding tube DAILY bp #30 tabs 08/30/22 [Rx Last Taken 09/09/22] apixaban 2.5 mg tablet (Eliquis) 2.5 mg feeding tube BID 30 days #60 tabs 08/30/22 [Rx Last Taken 09/09/22] aspirin 81 mg tablet,delayed release 81 mg feeding tube DAILY heart health #30 tabs 08/30/22 [Rx Last Taken 09/09/22] atorvastatin 40 mg tablet 40 mg feeding tube QHS cholesterol #90 tabs 08/30/22 [Rx Last Taken 09/08/22] baclofen 5 mg oral granules in packet 5 mg feeding tube TID PRN Muscle Spasm #90 ea 08/30/22 [Rx Last Taken Unknown] bisacodyl 10 mg rectal suppository 10 mg NM DAILY PRN Constipation #12 ea 08/30/22 [Rx Last Taken 1 Week Ago ~09/02/22] carvedilol 12.5 mg tablet 12.5 mg G-tube BID #60 tabs 08/30/22 [Rx Last Taken 09/09/22] doxazosin 4 mg tablet 4 mg feeding tube QHS BPH 30 days #30 tabs 08/30/22 [Rx Last Taken 09/08/22] ergocalciferol (vitamin D2) 1,250 mcg (50,000 unit) capsule 1,250 mcg feeding tube SA SUPPLEMENT #7 caps 08/30/22 [Rx Last Taken 09/08/22] furosemide 40 mg tablet 40 mg feeding tube QHS water 30 days #30 tabs 08/30/22 [Rx Last Taken 09/08/22] hydralazine 50 mg tablet 50 mg feeding tube TID 90 days #270 tabs 08/30/22 [Rx Last Taken 09/09/22] lansoprazole 30 mg capsule,delayed release 30 mg feeding tube DAILY #60 caps 08/30/22 [Rx Last Taken 09/09/22] oxycodone 10 mg tablet 10 mg feeding tube Q4H PRN Pain 3 days #1 TAB 08/30/22 [Rx Last Taken 09/09/22] polyethylene glycol 3350 17 gram oral powder packet 17 g G-tube BID 30 days #30 ea 08/30/22 [Rx Last Taken 09/08/22] lisinopril 20 mg tablet 20 mg PO BID HTN 09/09/22 [History Last Taken 09/09/22] methadone 5 mg tablet 5 mg PO BID PAIN, metastatic CA 09/09/22 [History Last Taken 09/09/22] docusate sodium 50 mg/5 mL oral liquid 100 mg (10 mL) G-tube BID 30 days #600 mL 09/15/22 [Rx Last Taken Unknown] lactulose 20 gram/30 mL oral solution 30 g (45 mL) G-tube BID 30 days #2,700 mL 09/15/22 [Rx Last Taken Unknown] Allergy/AdvReac Type Severity Reaction Status Date / Time banana Allergy Intermediate Swelling Verified 09/17/22 18:16 Penicillins [PCN] Allergy Unknown Verified 09/17/22 18:16 morphine AdvReac Mild confusion Verified 09/17/22 18:16 Family History Mother Diabetes Parkinson disease Grandmother Cancer Surgical History Amputated toe of left foot (08/2018) H/O coronary artery bypass surgery (06/12/18) H/O eye surgery History of left heart catheterization (05/20/18) Hx of CABG Hx of cholecystectomy S/P meniscectomy Social History household members: spouse Smoking Status: Never smoker alcohol intake: current alcohol intake frequency: a few times a week substance use type: does not use caffeine: No ROS ROS ED Review of Systems ROS Unobtainable: due to encephalopathy and due to mental status EXAM Physical Exam Const Vital Signs: 09/17/22 18:08 09/17/22 19:08 09/17/22 20:08 Temperature 98.9 F Temperature Source Temporal Pulse Rate 66 70 72 Respiratory Rate 16 18 18 Blood Pressure 142/58 H 157/79 H 166/77 H Blood Pressure Mean 86 105 106 Pulse Ox 96 97 96 Oxygen Delivery Method Room Air Room Air Room Air Positive well nourished and well developed General Appearance ED: well developed and NAD HEENT Reports TM's clear and moist mucous membranes normocephalic and atraumatic; Negative for trauma or tenderness Tympanic Membrane ED: Yes TM's clear Eyes PERRL and EOMs intact bilaterally General Eye ED: Negative for pale conjunctiva or scleral icterus Neck no lymphadenopathy, supple and no JVD General: Negative for tenderness Chest Wall inspection of chest normal and palpation of chest normal Chest: Negative for tenderness Resp normal respiratory effort and clear to auscultation bilaterally Effort and Inspection: Negative for respiratory distress or pain with movement Auscultation: Negative for rhonchi, wheezes or diminished lung sounds Cardio regular rate, regular rhythm, S1 normal heart sound, S2 normal heart sound and no murmurs Peripheral Pulses: pulses 2+ throughout GI normal to inspection, nondistended, normoactive bowel sounds, soft to palpation, non-tender, non-distended and no masses GI Narrative: On rectal exam patient has bright red blood per rectum/maroon stool. No hemorrhoids noted. No obvious fissures. No masses palpated in the rectal vault Back/Spine no CVA tenderness and no thoracic nor lumbar tenderness Extremity normal to inspection General Extremety ED: Negative for edema General Extremity: Negative for edema Neuro oriented x3, CN's II-XII intact bilaterally, no sensory deficits noted and gait normal Sensorium / Orientation: awake, alert, oriented to person, oriented to place and oriented to time Motor Exam: strength 5/5 throughout and strength abnormal Psych mental status grossly normal Skin no rashes or lesions noted and no wounds MDM MDM MDM Narrative Medical decision making narrative: Patient presents with bright red blood per rectum with recent admission for same. IV line established on arrival. CBC with differential obtained showed a white count of 8.4 with hemoglobin of 8.2 and hematocrit of 26. Platelet count 247. Chemistries unremarkable. Lactate was 1.2. Patient had a type and screen. Case discussed with Dr. Flores who saw patient during last admission and is known that patient has a rectal ulcer that required cauterization in the past. It was recommended that patient's stool be Soft as he does have some chronic constipation issues. Case discussed with hospitalist who will evaluate patient for admission. Lab Data Attestation: I reviewed the patient's lab results. Labs: Laboratory Results - last 24 hr 09/17/22 09/17/22 09/17/22 19:00 19:00 19:00 WBC 8.4 RBC 2.90 L Hgb 8.2 L Hct 25.9 L MCV 89.3 MCH 28.3 MCHC 31.7 L RDW Std Deviation 47.5 H RDW Coeff of Dipti 14.5 Plt Count 247 MPV 9.9 Immature Gran % (Auto) 0.800 Neut % (Auto) 77.3 H Lymph % (Auto) 6.8 L [place] % (Auto) 11.7 H Eos % (Auto) 3.0 Baso % (Auto) 0.4 Absolute Neuts (auto) 6.5 Absolute Lymphs (auto) 0.57 L Nucleated RBC % 0 Differential Comment SEE COMMENT Platelet Estimate ADEQUATE RBC Morphology N CHROM Hypochromasia 1+ Anisocytosis 1+ Macrocytosis 1+ Sodium 131 L Potassium 4.2 Chloride 101 Carbon Dioxide 29.0 Anion Gap 1 L BUN 29 H Creatinine 0.63 L Estim Creat Clear Calc 129.68 Est GFR (MDRD) Af Amer 164 Est GFR (MDRD) Non-Af 135 BUN/Creatinine Ratio 45.7 H Glucose 151 H Lactic Acid 1.2 Calcium 8.1 L Blood Type Antibody Screen 09/17/22 19:00 WBC RBC Hgb Hct MCV MCH MCHC RDW Std Deviation RDW Coeff of Dipti Plt Count MPV Immature Gran % (Auto) Neut % (Auto) Lymph % (Auto) [place] % (Auto) Eos % (Auto) Baso % (Auto) Absolute Neuts (auto) Absolute Lymphs (auto) Nucleated RBC % Differential Comment Platelet Estimate RBC Morphology Hypochromasia Anisocytosis Macrocytosis Sodium Potassium Chloride Carbon Dioxide Anion Gap BUN Creatinine Estim Creat Clear Calc Est GFR (MDRD) Af Amer Est GFR (MDRD) Non-Af BUN/Creatinine Ratio Glucose Lactic Acid Calcium Blood Type A POSITIVE Antibody Screen NEGATIVE Discharge Plan Triage Chief Complaint: GI Bleed ED Provider: Dmitry Joya Dx/Rx/DC Orders Clinical Impression: Acute lower GI bleeding, Chronic anticoagulation, Anemia, History of hyp ertension Prescriptions: No Action nitroglycerin 0.4 mg tablet, sublingual 0.4 mg sublingual Q5M PRN (Reason: Cardiac/Chest Pain) Qty: 25 6RF Keytruda 25 mg/mL solution 25 mg IV .UD acetaminophen 650 mg Suppository 650 mg NM Q4H PRN PRN (Reason: Fever) tamsulosin 0.4 mg capsule 0.4 mg PO QHS 30 Days Qty: 30 0RF carvedilol 12.5 mg Tablet 12.5 mg G-tube BID Qty: 60 0RF polyethylene glycol 3350 17 gram Powder In Packet 17 g G-tube BID 30 Days Qty: 30 0RF Rx Instructions: hold for loose stools furosemide 40 mg tablet 40 mg feeding tube QHS 30 Days Qty: 30 0RF atorvastatin 40 mg tablet 40 mg feeding tube QHS Qty: 90 3RF allopurinol 100 mg tablet 100 mg feeding tube DAILY Qty: 30 0RF aspirin 81 MG tablet 81 mg feeding tube DAILY Qty: 30 0RF amlodipine 10 mg tablet 10 mg feeding tube DAILY Qty: 30 0RF Rx Instructions: Hold for SBP less than 130 mmHg bisacodyl 10 mg Suppository 10 mg NM DAILY PRN (Reason: Constipation) Qty: 12 0RF doxazosin 4 mg Tablet 4 mg feeding tube QHS 30 Days Qty: 30 0RF hydralazine 50 mg tablet 50 mg feeding tube TID 90 Days Qty: 270 3RF ergocalciferol (vitamin D2) 1,250 mcg (50,000 unit) capsule 1,250 mcg feeding tube SA Qty: 7 0RF Label Comments: TAKE 1 CAPSULE BY MOUTH WEEKLY FOR 90 DAYS oxycodone 10 mg tablet 10 mg feeding tube Q4H PRN (Reason: Pain) 3 Days Qty: 1 0RF Eliquis 2.5 mg tablet 2.5 mg feeding tube BID 30 Days Qty: 60 1RF baclofen 5 mg Granules In Packet 5 mg feeding tube TID PRN (Reason: Muscle Spasm) Qty: 90 0RF lansoprazole 30 mg capsule,delayed release(DR/EC) 30 mg feeding tube DAILY Qty: 60 0RF lisinopril 20 mg tablet 20 mg PO BID Label Comments: TAKE 1 TABLET BY MOUTH IN THE MORNING AND IN THE EVENING methadone 5 mg tablet 5 mg PO BID docusate sodium 50 mg/5 mL Liquid 100 mg G-tube BID 30 Days Qty: 600 0RF lactulose 20 gram/30 mL Solution 30 g G-tube BID 30 Days Qty: 2700 0RF Primary Care Provider: Delgado Smith Referrals: Delgado Smith DO [Primary Care Provider] - Disposition Disposition: [facility]
[2022-09-17 19:08] VITALS: BP 157/79; PULSE 70; RESP 18; O2SAT 97
[2022-09-17] MEDS: 0.9% Normal Saline 1,000 ML 125 ML IV (19:08)
[2022-09-17 19:22] LABS: Absolute Lymphocyte Count 0.57 X10^3/uL (0.83-4.51); Absolute Neutrophil Count 6.5 X10^3/uL (2.0-7.7); Basophil# 0.03 X10^3/uL; Basophil% 0.4 % (0-1); Eosinophil# 0.25 X10^3/uL; Hematocrit 25.9 % (40-54); Hemoglobin 8.2 g/dL (13.0-16.5); Lymphocyte # 0.57 X10^3/ul (0.83-4.51); Lymphocyte % 6.8 % (19-41); Mean Corp Hgb Conc 31.7 g/dL (32-36); Mean Corpuscular Hgb 28.3 pg (27.0-32.0); Mean Corpuscular Volume 89.3 fL (80-94); Mean Platelet Vol. 9.9 fl (6.2-12.0); Monocyte# 0.98 X10^3/uL; Monocyte% 11.7 % (0-10); NRBC Flagged by Analyzer 0 % (0-5); Neutrophil # 6.49 X10^3/uL (2.7-7.7); Neutrophil % 77.3 % (47-70); POSITIVE DIFFERENTIAL YES; Platelet Count 247 K/mm3 (150-450); RBC Distribution Width CV 14.5 % (11.6-14.6); RBC Distribution Width SD 47.5 fl (35.1-43.9); White Blood Count 8.4 K/mm3 (4.4-11.0)
[2022-09-17 19:26] LABS: Differential Indicated SCAN CRITERIA MET
[2022-09-17 19:35] LABS: Anion Gap 1 (5-15); BUN 29 mg/dL (7-18); BUN/Creat Ratio 45.7 RATIO (10-20); Calcium,Total 8.1 mg/dL (8.5-10.1); Chloride 101 mmol/L (98-107); Creatinine, Serum 0.63 mg/dL (0.70-1.30); EST Glomerular Filtration Rate 135 mL/min (>60); Est Glom Filt Rate - Afr Amer 164 mL/min (>60); Estimated Creatinine Clearance 129.68 ml/min; Glucose 151 mg/dL (74-106); Potassium 4.2 mmol/L (3.5-5.1); Sodium Level 131 mmol/L (136-145)
[2022-09-17 19:43] LABS: Lactic Acid 1.2 mmol/L (0.4-1.9)
--- NOTE | 2022-09-17 19:59 | HP.PCM.HOS_ITS ---
HPI - General General Date of Admission: 09/17/22 Date of Service: 09/17/22 Chief Complaint: Bright red blood per rectum HPI Narrative CLAY RUBIO, is a 62 M with a significant history of CVA with expressive aphasia; CAD status post stents who presents to the emergency department with bright red blood per rectum. History was not able to obtain from patient secondary to expressive aphasia. Reportedly about 45 before presentation, patie nt's changed him and noticed that patient had bright red blood per rectum. The blood was in his diaper. About 10 minutes after was patient checked on patient again and blood was pouring off of his rectum. Of note patient was discharged from the hospital on September 15, 2022 for what is symptoms and where he was noted to have a stercoral ulcer. Patient reports that patient has been on medication given to him for his bowels to move.However, since discharge patient has not had any appreciable stool. He has had only a little smear. Patient is on both aspirin and Eliquis. Emergency Department doctor discussed the case with director sales and marketing who saw patient on the patient recent admission and recommend the patient reports on stool softeners and H&H trended. [facility] Medical History Abdominal pain Acute bronchitis RAFA (acute kidney injury) Alcohol abuse Anemia Aspiration into airway Atherosclerosis of coronary artery without angina pectoris 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[place] coronary artery w/angina pectoris Bacteremia Bone cancer Bradycardia Cataracts, both eyes Cerebral arteriosclerosis with history of previous cerebrovascular accident Charcot's joint, left ankle and foot Chronic anemia Chronic anticoagulation Chronic diastolic (congestive) heart failure Chronic pain Diabetes mellitus, type II Diabetic retinopathy Diastolic dysfunction with acute on chronic heart failure Dysphagia Essential hypertension GERD (gastroesophageal reflux disease) Hammer toe of left foot History of embolic stroke HLD (hyperlipidemia) Hyponatremia Infection of left foot Iron deficiency anemia Malignant neoplasm of parotid gland Metastatic squamous cell carcinoma 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 MSSA bacteremia Nephrotic syndrome Neuropathy Non-smoker Normocytic anemia Obesity (BMI 30.0-34.9) Osteomyelitis PAD (peripheral artery disease) Postoperative atrial fibrillation (06/12/18) 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) Secondary pulmonary arterial hypertension Sinus bradycardia Syncope Type 2 diabetes mellitus Ulcer of left foot UTI (urinary tract infection) Home Medications nitroglycerin 0.4 mg sublingual tablet 0.4 mg sublingual Q5M PRN Cardiac/Chest Pain #25 tabs 10/17/18 [Rx Last Taken 08/08/19] pembrolizumab 25 mg/mL intravenous solution (Keytruda) 25 mg IV .UD CANCER 09/13/21 [History Last Taken 06/06/22] acetaminophen 650 mg rectal suppository 650 mg GA Q4H PRN PRN Fever 08/10/22 [History Last Taken Unknown] tamsulosin 0.4 mg capsule 0.4 mg PO QHS prostate 30 days #30 caps 08/17/22 [Rx Last Taken 09/08/22] allopurinol 100 mg tablet 100 mg feeding tube DAILY gout #30 tabs 08/30/22 [Rx Last Taken 09/08/22] amlodipine 10 mg tablet 10 mg feeding tube DAILY bp #30 tabs 08/30/22 [Rx Last Taken 09/09/22] apixaban 2.5 mg tablet (Eliquis) 2.5 mg feeding tube BID 30 days #60 tabs 08/30/22 [Rx Last Taken 09/09/22] aspirin 81 mg tablet,delayed release 81 mg feeding tube DAILY heart health #30 tabs 08/30/22 [Rx Last Taken 09/09/22] atorvastatin 40 mg tablet 40 mg feeding tube QHS cholesterol #90 tabs 08/30/22 [Rx Last Taken 09/08/22] baclofen 5 mg oral granules in packet 5 mg feeding tube TID PRN Muscle Spasm #90 ea 08/30/22 [Rx Last Taken Unknown] bisacodyl 10 mg rectal suppository 10 mg GA DAILY PRN Constipation #12 ea 08/30/22 [Rx Last Taken 1 Week Ago ~09/02/22] carvedilol 12.5 mg tablet 12.5 mg G-tube BID #60 tabs 08/30/22 [Rx Last Taken 09/09/22] doxazosin 4 mg tablet 4 mg feeding tube QHS BPH 30 days #30 tabs 08/30/22 [Rx Last Taken 09/08/22] ergocalciferol (vitamin D2) 1,250 mcg (50,000 unit) capsule 1,250 mcg feeding tube SA SUPPLEMENT #7 caps 08/30/22 [Rx Last Taken 09/08/22] furosemide 40 mg tablet 40 mg feeding tube QHS water 30 days #30 tabs 08/30/22 [Rx Last Taken 09/08/22] hydralazine 50 mg tablet 50 mg feeding tube TID 90 days #270 tabs 08/30/22 [Rx Last Taken 09/09/22] lansoprazole 30 mg capsule,delayed release 30 mg feeding tube DAILY #60 caps 08/30/22 [Rx Last Taken 09/09/22] oxycodone 10 mg tablet 10 mg feeding tube Q4H PRN Pain 3 days #1 TAB 08/30/22 [Rx Last Taken 09/09/22] polyethylene glycol 3350 17 gram oral powder packet 17 g G-tube BID 30 days #30 ea 08/30/22 [Rx Last Taken 09/08/22] lisinopril 20 mg tablet 20 mg PO BID HTN 09/09/22 [History Last Taken 09/09/22] methadone 5 mg tablet 5 mg PO BID PAIN, metastatic CA 09/09/22 [History Last Taken 09/09/22] docusate sodium 50 mg/5 mL oral liquid 100 mg (10 mL) G-tube BID 30 days #600 mL 09/15/22 [Rx Last Taken Unknown] lactulose 20 gram/30 mL oral solution 30 g (45 mL) G-tube BID 30 days #2,700 mL 09/15/22 [Rx Last Taken Unknown] Allergy/AdvReac Type Severity Reaction Status Date / Time banana Allergy Intermediate Swelling Verified 09/17/22 18:16 Penicillins [PCN] Allergy Unknown Verified 09/17/22 18:16 morphine AdvReac Mild confusion Verified 09/17/22 18:16 Family History Mother Diabetes Parkinson disease Grandmother Cancer Surgical History Amputated toe of left foot (08/2018) H/O coronary artery bypass surgery (06/12/18) H/O eye surgery History of left heart catheterization (05/20/18) Hx of CABG Hx of cholecystectomy S/P meniscectomy Social History household members: spouse Smoking Status: Never smoker alcohol intake: current alcohol intake frequency: a few times a week substance use type: does not use caffeine: No ROS Review of Systems ROS Unobtainable: other Details: Review of system could not be obtained from patient secondary to expressive aphasia. Pertinent positives and pertinent n egatives that could be provided by patient's family is as noted in HPI. All other systems were reviewed patient's family did not know or they were negative. Vital Signs Vital Signs Vital Signs: 09/17/22 18:08 Temperature 98.9 F Temperature Source Temporal Pulse Rate 66 Respiratory Rate 16 Blood Pressure 142/58 H Blood Pressure Mean 86 Pulse Ox 96 Oxygen Delivery Method Room Air Weight Weight: 77.4 kg Body Mass Index (BMI) 23.1 Physical Exam Narrative Physical exam: General: Well-nourished, well-developed. Head: Normocephalic, atraumatic, no tenderness Eyes: Vision is grossly intact. Miotic pupils. ENT, no trauma, moist mucous membranes, no rhinorrhea Neck: Nontender, No thyromegaly. CVS: Regular rate and rhythm. S1-S2 present. No murmur, gallop or rub. Respiratory : clear to auscultation bilaterally, chest wall nontender Abdomen: Soft, nontender, nondistended, normal bowel sounds, no masses : Deferred Back: Nontender, no CVA tenderness, no midline spinal tenderness, deformities, step-offs Extremities: Nontender full range of motion, no trauma Skin: Middle back with ulcer. Mild erythema on sacrococcygeal area. Neuro: Alert, expressive aphasia. Psychiatry: Normal mood. Normal affect. Not depressed. Not anxious. Results Lab / Micro Data Result Diagrams: 09/17/22 19:00 09/17/22 19:00 Labs: Laboratory Results - last 24 hr 09/17/22 19:00: WBC 8.4, RBC 2.90 L, Hgb 8.2 L, Hct 25.9 L, MCV 89.3, MCH 28.3, MCHC 31.7 L, RDW Std Deviation 47.5 H, RDW Coeff of Dipti 14.5, Plt Count 247, MPV 9.9, Immature Gran % (Auto) 0.800, Neut % (Auto) 77.3 H, Lymph % (Auto) 6.8 L, [place] % (Auto) 11.7 H, Eos % (Auto) 3.0, Baso % (Auto) 0.4, Absolute Neuts (auto) 6.5, Absolute Lymphs (auto) 0.57 L, Nucleated RBC % 0 09/17/22 19:00: Sodium 131 L, Potassium 4.2, Chloride 101, Carbon Dioxide 29.0, Anion Gap 1 L, BUN 29 H, Creatinine 0.63 L, Estim Creat Clear Calc 129.68, Est GFR (MDRD) Af Amer 164, Est GFR (MDRD) Non-Af 135, BUN/Creatinine Ratio 45.7 H, Glucose 151 H, Calcium 8.1 L 09/17/22 19:00: Lactic Acid 1.2 Assessment & Plan Assessment/Plan (1) Acute lower GI bleeding: (2) Stercoral ulcer of rectum: (3) Stage I pressure ulcer: (4) Open back wound: PLAN: Plan Acute lower GI bleeding/Hematochezia/sacral ulcer His hemoglobin presentation was 8.2. Review of records show that hemoglobin on 09/15/2022 was 7.6. His hemoglobin in June and May of this year 2022 was around 10.5. But in the past 1 to 2 months his hemoglobin has been around 8.5. We will continue patient on his home lactulose. Trend H&H. Blood pressure is stable. Gentle IV hydration. NPO after midnight. Hold home aspirin and Eliquis. Review of records shows that patient had a colonoscopy with Dr. Flores, director sales and marketing on 09/12/2022. Impressions were as below: - Mucosal ulceration.? Biopsied.? Injected.? Treated with a heater probe. - Stool in the recto-sigmoid colon, in the sigmoid colon, in the transverse ?colon and in the cecum. Also on 08/28/2022 patient had a colonoscopy with Dr. Winters, general surgery. At that time preparation for colon was poor. The entire examined colon was normal. EGD was also done at that time. An EGD was unremarkable. GI consult. Hyponatremia Sodium 131 presentation. Gentle IV hydration ordered. Trend. Elevated BUN BUN of 29 on presentation. Review of labs showed baseline BUN and single digits. I will is more likely lower GI bleed because of patient history. Treatment as above. Gentle IV hydration as above. Trend BMP. Hypertension Blood pressure is not within goal Home blood pressure medication continued. As needed hydralazine ordered. Trend blood pressure and adjust blood pressure medications. History of A-fib Stable Hold home Eliquis. Ad[facility] to [facility] on telemetry. Stage I pressure ulcer on sacrococcygeal area Calmoseptine ordered Open back wound Allevyn dressing ordered. DVT prophylaxis: SCDs ordered. Charges/Coding Visit Charges Inpatient E&M: 27281 Init Hosp L3
[2022-09-17 20:08] VITALS: BP 166/77; PULSE 72; RESP 18; O2SAT 96
[2022-09-17 20:15] LABS: Anisocytosis 1+; Platelet Estimate ADEQUATE (ADEQ); Red Cell Morphology N CHROM NORMAL (NORM C&C)
[2022-09-17 20:16] LABS: Hypochromasia 1+; Macrocytosis 1+
[2022-09-17 21:00] VITALS: BP 153/80; PULSE 71; RESP 16; O2SAT 97
[2022-09-17 21:13] VITALS: BP 157/83; PULSE 72; RESP 16; TEMP 36.8; O2SAT 96
--- NOTE | 2022-09-17 21:43 | NURSING ---
09/17/22@ 3120 PT HAD TOTAL OF X2 MEDIUM BLOODY BMS WHILE IN ER.
[2022-09-17 22:26] VITALS: BMI 24.2
[2022-09-17 23:30] VITALS: BP 139/71; PULSE 68; RESP 16; TEMP 37.5; O2SAT 98
[2022-09-17] MEDS: 0.9% Normal Saline 1,000 ML 100 ML IV (23:37)
[2022-09-17 23:38] LABS: Hematocrit 24.9 % (40-54); Hemoglobin 7.9 g/dL (13.0-16.5)
--- NOTE | 2022-09-17 23:45 | EX.PCM.CON.G ---
HPI Consult Data Date of Consult: 09/17/22 HPI Narrative Reason for Consultation: Lower GI bleeding HPI Narrative: CLAY RUBIO, is a 62 M who presents to the hospital with lower GI bleeding after being recently discharged with a diagnosis of acute GI bleeding from a large stercoral ulcer. Prior to that he was discharged 08/30 after a similar presentation where he had upper and lower endoscopy with surgery but no bleeding diathesis was found.? Given he was stable and hemoglobin stable he was discharged back on his Eliquis and aspirin.? He had been in his usual health until about 9:00 when his noted bright red blood on his buttock and pad, she is unable to quantify this but endorses there is no stool and it was just blood.? I was asked to see him for lower GI bleeding. I was called this morning and alerted about the consult for lower GI bleeding and I requested a CT angiography of the abdomen pelvis to hopefully isolate active GI bleeding. He also has a history of head and neck skin cancer. He was found to have diffuse bony metastasis on bone scan done on December 23, 2020.? Biopsy of the right acetabulum on 01/12/2021 showed metastatic squamous cell carcinoma.? ?CT chest abdomen and pelvis with IV contrast obtained 01/20/2021 at [facility] demonstrated numerous osseous lytic lesions, (particularly in the right scapula right ischial ramus, proximal left femur), poorly defined hypoattenuating lesions within the liver and spleen, several scattered irregular subpleural nodular opacities in the lung more pronounced in the right upper lobe right lung apex measuring up to 8 mm (described as indeterminate), diffuse urinary bladder wall thickening most pronounced anteriorly. A PET scan on 03/16/2021 showed hypermetabolic activity in the right parotid mass with extensive metastatic disease in the bones.? Biopsy of right parotid gland on 03/27/2021 confirmed squamous cell carcinoma with high tumor mutational burden and PD-L1 positive.? He received palliative radiation to right hip in March 2021, finished on 04/12/2021. He started Keytruda on 05/03/2021 and received the third cycle on 06/15/2021 at [facility].? He transferred his therapy to [facility] prior to the fourth cycle of pembrolizumab, received the 4th cycle on 07/05/2021.? CT soft tissue neck, chest, abdomen and pelvis with contrast obtained August 24, 2021 at [facility] demonstrated?diffuse hepatic metastasis, diffuse metastasis involving appendicular as well as axial skeleton, and small supraclavicular lymph nodes.?? PET/CT performed 11/01/2021 showed partial response to treatment evidenced by hypodense lesions throughout the liver and diffuse osseous sclerosis of axial skeleton- both without hypermetabolic activity.? Completed 3 doses of weekly Venofer 300 mg 01/10/22-01/24/22.? He remains on Keytruda, comes for C21. Feels well, saw PT for back pain and problems with posture, helping. Was in [facility] for adenovirus infection from 06/14/2022-06/17/2022. [facility] Medical History Abdominal pain Acute bronchitis RAFA (acute kidney injury) Alcohol abuse Anemia Aspiration into airway Atherosclerosis of coronary artery without angina pectoris 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[place] coronary artery w/angina pectoris Bacteremia Bone cancer Bradycardia Cataracts, both eyes Cerebral arteriosclerosis with history of previous cerebrovascular accident Charcot's joint, left ankle and foot Chronic anemia Chronic anticoagulation Chronic diastolic (congestive) heart failure Chronic pain Diabetes mellitus, type II Diabetic retinopathy Diastolic dysfunction with acute on chronic heart failure Dysphagia Essential hypertension GERD (gastroesophageal reflux disease) Hammer toe of left foot History of embolic stroke HLD (hyperlipidemia) Hyponatremia Infection of left foot Iron deficiency anemia Malignant neoplasm of parotid gland Metastatic squamous cell carcinoma 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 MSSA bacteremia Nephrotic syndrome Neuropathy Non-smoker Normocytic anemia Obesity (BMI 30.0-34.9) Osteomyelitis PAD (peripheral artery disease) Postoperative atrial fibrillation (06/12/18) 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) Secondary pulmonary arterial hypertension Sinus bradycardia Syncope Type 2 diabetes mellitus Ulcer of left foot UTI (urinary tract infection) Home Medications nitroglycerin 0.4 mg sublingual tablet 0.4 mg sublingual Q5M PRN Cardiac/Chest Pain #25 tabs 10/17/18 [Rx Last Taken 08/08/19] pembrolizumab 25 mg/mL intravenous solution (Keytruda) 25 mg IV .UD CANCER 09/13/21 [History Last Taken 06/06/22] acetaminophen 650 mg rectal suppository 650 mg MS Q4H PRN PRN Fever 08/10/22 [History Last Taken Unknown] tamsulosin 0.4 mg capsule 0.4 mg PO QHS prostate 30 days #30 caps 08/17/22 [Rx Last Taken 09/08/22] allopurinol 100 mg tablet 100 mg feeding tube DAILY gout #30 tabs 08/30/22 [Rx Last Taken 09/08/22] amlodipine 10 mg tablet 10 mg feeding tube DAILY bp #30 tabs 08/30/22 [Rx Last Taken 09/09/22] aspirin 81 mg tablet,delayed release 81 mg feeding tube DAILY heart health #30 tabs 08/30/22 [Rx Last Taken 09/09/22] atorvastatin 40 mg tablet 40 mg feeding tube QHS cholesterol #90 tabs 08/30/22 [Rx Last Taken 09/08/22] baclofen 5 mg oral granules in packet 5 mg feeding tube TID PRN Muscle Spasm #90 ea 08/30/22 [Rx Last Taken Unknown] bisacodyl 10 mg rectal suppository 10 mg MS DAILY PRN Constipation #12 ea 08/30/22 [Rx Last Taken 1 Week Ago ~09/02/22] doxazosin 4 mg tablet 4 mg feeding tube QHS BPH 30 days #30 tabs 08/30/22 [Rx Last Taken 09/08/22] ergocalciferol (vitamin D2) 1,250 mcg (50,000 unit) capsule 1,250 mcg feeding tube SA SUPPLEMENT #7 caps 08/30/22 [Rx Last Taken 09/08/22] furosemide 40 mg tablet 40 mg feeding tube QHS water 30 days #30 tabs 08/30/22 [Rx Last Taken 09/08/22] oxycodone 10 mg tablet 10 mg feeding tube Q4H PRN Pain 3 days #1 TAB 08/30/22 [Rx Last Taken 09/09/22] lisinopril 20 mg tablet 20 mg PO BID HTN 09/09/22 [History Last Taken 09/09/22] methadone 5 mg tablet 5 mg PO BID PAIN, metastatic CA 09/09/22 [History Last Taken 09/09/22] apixaban 2.5 mg tablet (Eliquis) 2.5 mg feeding tube BID Check with primary doctor 09/17/22 [History Last Taken Unknown] carvedilol 12.5 mg tablet 12.5 mg G-tube BID Check with primary doctor 09/17/22 [History Last Taken Unknown] docusate sodium 50 mg/5 mL oral liquid 100 mg G-tube BID Check with primary doctor 09/17/22 [History Last Taken Unknown] hydralazine 50 mg tablet 50 mg feeding tube TID Check with primary doctor 09/17/22 [History Last Taken Unknown] lactulose 20 gram/30 mL oral solution 30 g G-tube BID Check with primary doctor 09/17/22 [History Last Taken Unknown] lansoprazole 30 mg capsule,delayed release 30 mg feeding tube DAILY Check with primary doctor 09/17/22 [History Last Taken Unknown] polyethylene glycol 3350 17 gram oral powder packet 17 g G-tube BID Check with primary doctor 09/17/22 [History Last Taken Unknown] Allergy/AdvReac Type Severity Reaction Status Date / Time banana Allergy Intermediate Swelling Verified 09/17/22 18:16 Penicillins [PCN] Allergy Unknown Verified 09/17/22 18:16 morphine AdvReac Mild confusion Verified 09/17/22 18:16 Family History Mother Diabetes Parkinson disease Grandmother Cancer Surgical History Amputated toe of left foot (08/2018) H/O coronary artery bypass surgery (06/12/18) H/O eye surgery History of left heart catheterization (05/20/18) Hx of CABG Hx of cholecystectomy S/P meniscectomy Social History household members: spouse Smoking Status: Never smoker alcohol intake: current alcohol intake frequency: a few times a week substance use type: does not use caffeine: No ROS Review of Systems ROS Unobtainable: other Details: Review of system could not be obtained from patient secondary to expressive aphasia. Pertinent positives and pertinent negatives that could be provided by patient's family is as noted in HPI. All other systems were reviewed patient's family did not know or they were negative. Physical Exam Narrative Physical exam: General: Well-nourished, well-developed. Head: Normocephalic, atraumatic, no tenderness Eyes: Vision is grossly intact. Miotic pupils. ENT, no trauma, moist mucous membranes, no rhinorrhea Neck: Nontender, No thyromegaly. CVS: Regular rate and rhythm. S1-S2 present. No murmur, gallop or rub. Respiratory : clear to auscultation bilaterally, chest wall nontender Abdomen: Soft, nontender, nondistended, normal bowel sounds, no masses : Deferred Back: Nontender, no CVA tenderness, no midline spinal tenderness, deformities, step-offs Extremities: Nontender full range of motion, no trauma Skin: Middle back with ulcer. Mild erythema on sacrococcygeal area. Neuro: Alert, expressive aphasia. Psychiatry: Normal mood. Normal affect. Not depressed. Not anxious. Lab / Micro Data Result Diagrams: 09/18/22 05:05 09/18/22 05:05 Labs: Laboratory Results - last 24 hr 09/17/22 19:00: WBC 8.4, RBC 2.90 L, Hgb 8.2 L, Hct 25.9 L, MCV 89.3, MCH 28.3, MCHC 31.7 L, RDW Std Deviation 47.5 H, RDW Coeff of Dipti 14.5, Plt Count 247, MPV 9.9, Immature Gran % (Auto) 0.800, Neut % (Auto) 77.3 H, Lymph % (Auto) 6.8 L, [place] % (Auto) 11.7 H, Eos % (Auto) 3.0, Baso % (Auto) 0.4, Absolute Neuts (auto) 6.5, Absolute Lymphs (auto) 0.57 L, Nucleated RBC % 0, Differential Comment SEE COMMENT, Platelet Estimate ADEQUATE, RBC Morphology N CHROM, Hypochromasia 1+, Anisocytosis 1+, Macrocytosis 1+ 09/17/22 19:00: Sodium 131 L, Potassium 4.2, Chloride 101, Carbon Dioxide 29.0, Anion Gap 1 L, BUN 29 H, Creatinine 0.63 L, Estim Creat Clear Calc 129.68, Est GFR (MDRD) Af Amer 164, Est GFR (MDRD) Non-Af 135, BUN/Creatinine Ratio 45.7 H, Glucose 151 H, Calcium 8.1 L 09/17/22 19:00: Lactic Acid 1.2 09/17/22 19:00: Blood Type A POSITIVE, Antibody Screen NEGATIVE 09/17/22 19:00: Crossmatch See Detail 09/17/22 23:25: Hgb 7.9 L, Hct 24.9 L 09/18/22 05:05: Hgb 7.2 L, Hct 22.8 L 09/18/22 05:05: Sodium 133 L, Potassium 3.8, Chloride 102, Carbon Dioxide 25.0, Anion Gap 6, BUN 27 H, Creatinine 0.58 L, Estim Creat Clear Calc 124.48, Est GFR (MDRD) Af Amer 180, Est GFR (MDRD) Non-Af 148, BUN/Creatinine Ratio 46.2 H, Glucose 122 H, Calcium 8.3 L 09/18/22 05:45: PT 16.4 H, INR 1.3, APTT 49.3 H 09/18/22 05:45: TSH 1.14 Assessment & Plan Assessment/Plan (1) ABLA (acute blood loss anemia): PLAN: Plan Bright red blood per rectum/GI bleed likely secondary to repeat bleed from stercoral ulcer. However he will need a CT angiography to see if there is any active bleeding to be treated at this time. -Also on the differential diagnosis includes hemorrhoidal, diverticular or ischemic disease. Chronic dysphagia -On tube feeds -Given possible need for intervention holding at this time Atrial fibrillation -Eliquis held Await the results of the CT angiography. Likely colonoscopy or flexible sigmoidoscopy in the near future. Charges/Coding Visit Charges Inpatient E&M: 47518 Init Hosp L3
[2022-09-18] VITALS (20 sets, daily range): BP systolic 141–176; BP diastolic 63–79; PULSE 59–74; RESP 16–20; TEMP 36.6–37.3; O2SAT 95–100; BMI 24.2
--- NOTE | 2022-09-18 | CT_ITS ---
STUDY: CTA ABDOMEN AND PELVIS WITH CONTRAST REASON FOR EXAM: Male, 62 years old. Lower GI bleed. History of metastatic squamous cell carcinoma with parotid carcinoma and bone carcinoma. RADIATION DOSAGE (If Supplied By Facility): CTDIvol = ( 49.38 ) mGy, DLP = ( 1063.05 ) mGycm TECHNIQUE: Transaxial images were obtained from the dome of the diaphragm to the symphysis pubis without oral contrast. IV 100mL Isovue-370 was administered. Sagittal and coronal images were reconstructed. Individualized dose optimization techniques were used for this CT. COMPARISON: Comparison is made with prior study of August 26, 2022. FINDINGS: Small bilateral pleural effusions with bibasilar atelectasis and/or infiltrate. Coronary artery calcification. Normal liver. There are surgical clips in the gallbladder fossa consistent with a prior cholecystectomy. Normal spleen. Normal pancreas. Normal bilateral adrenal glands. Normal right kidney. Normal left kidney. Normal visualized stomach. Normal small intestine. Large amount of fecal material is seen in the colon worse in the rectosigmoid colon. Sigmoid diverticulosis. The appendix is visualized and appears normal. There is diffuse atherosclerotic calcification of the abdominal aorta and its major visceral branches, without a demonstrated aneurysm. Normal inferior vena cava. Normal retroperitoneum. The Zhu catheter is seen with a partially opacified urinary bladder. Diffuse urinary bladder wall thickening. Normal abdominal wall. There is evidence of diffuse osteoblastic and osteolytic metastasis involving the visualized vertebrae with multiple collapsed vertebrae involving the L1-L2 and L5 vertebral bodies. There is also evidence of a osteolytic and osteophytic blastic metastasis to the pelvic bones as well as the visualized ribs. Prior fusion of the lower thoracic spine. CT/CTA Abd/Pelvis W/WO Contrast IMPRESSION: Small bilateral pleural effusions with bibasilar atelectasis. Large amount of fecal material is seen in the rectosigmoid colon. Sigmoid diverticulosis. Diffuse urinary bladder wall thickening. Diffuse bony metastasis as described. Extensive atherosclerotic changes of the abdominal aorta and the major visceral branches. Electronically Signed: Emir Kwan MD at 8:48 EDT ,
[2022-09-18] MEDS: Menthol/Lanolin/Calamine/Znox 113 GM Tube 1 APPLIC TOPICAL ×3 (03:19→22:48)
[2022-09-18] MEDS: Acetaminophen 325 MG Tablet 650 MG PO ×2 (04:43→22:52)
[2022-09-18] MEDS: Ondansetron 4 MG/2 ML Vial IV (04:49)
[2022-09-18] MEDS: 0.9% Saline Lock 10 ML Syringe IV (04:49)
[2022-09-18 05:15] LABS: Hematocrit 22.8 % (40-54); Hemoglobin 7.2 g/dL (13.0-16.5)
[2022-09-18 05:42] LABS: Anion Gap 6 (5-15); BUN 27 mg/dL (7-18); BUN/Creat Ratio 46.2 RATIO (10-20); Calcium,Total 8.3 mg/dL (8.5-10.1); Chloride 102 mmol/L (98-107); Creatinine, Serum 0.58 mg/dL (0.70-1.30); EST Glomerular Filtration Rate 148 mL/min (>60); Est Glom Filt Rate - Afr Amer 180 mL/min (>60); Estimated Creatinine Clearance 124.48 ml/min; Glucose 122 mg/dL (74-106); Potassium 3.8 mmol/L (3.5-5.1); Sodium Level 133 mmol/L (136-145)
--- NOTE | 2022-09-18 07:00 | EKG12_ITS ---
Test Reason : PRE OP Blood Pressure : / mmHG Vent. Rate : 070 BPM Atrial Rate : 070 BPM P-R Int : 170 ms QRS Dur : 076 ms QT Int : 434 ms P-R-T Axes : 085 016 024 degrees QTc Int : 468 ms Normal sinus rhythm with PAC Otherwise normal ECG When compared with ECG of 09-SEP-2022 11:06, Current undetermined rhythm precludes rhythm comparison, needs review Nonspecific T wave abnormality now evident in Inferior leads T wave amplitude has decreased in Anterior leads Confirmed by RADHA DIALLO MD ([id number]), technical writer and editor GALINDO BECKFORD ([id number]) on 09/21/2022 8:15:39 AM Referred By: MIKAYLA Confirmed By:RADHA DIALLO MD
[2022-09-18 07:01] LABS: International Normalized Ratio 1.3; Prothrombin Time (Protime)PT. 16.4 SECONDS (11.7-14.9)
[2022-09-18 07:03] LABS: Partial Thromboplast Time 49.3 Seconds (24.1-36.2)
[2022-09-18 07:39] LABS: Thyroid Stim Hormone (TSH) 1.14 uIU/mL (0.358-3.74)
--- NOTE | 2022-09-18 08:15 | PN.HOSP_ITS ---
Reason for Visit Reason for Visit: Diagnoses Acute posthemorrhagic anemia (09/17/22) Ulcer of anus and rectum (09/17/22) Gastrointestinal hemorrhage, unspecified (09/17/22) Pressure ulcer of unspecified site, stage 1 (09/17/22) Unspecified open wound of unspecified back wall of thorax without penetration into thoracic cavity, initial encounter (09/17/22) Subjective Subjective Patient seen at bedside with present, patient with expressive aphasia, discussed extensively goals of care and hospice and presently they want to continue full code and aggressive intervention Objective Data Objective Data Vital Signs: Vital Signs Temp Pulse Resp BP Pulse Ox O2 Del Method 98.7 F 69 16 141/74 H 95 Room Air 09/18/22 05:06 09/18/22 05:06 09/18/22 05:06 09/18/22 05:06 09/18/22 07:10 09/18/22 07:10 Oxygen Delivery Method Room Air Weight: 72.212 kg Body Mass Index (BMI) 24.2 Intake & Output: Intake and Output for Last 24 Hours 09/16/22 09/17/22 09/18/22 23:59 23:59 23:59 Intake Total 560.42 / 560.42 30 / 30 Output Total 2600 / 2600 Balance 560.42 / 560.42 -2570 / -2570 Lab / Micro Data Result Diagrams: 09/18/22 05:05 09/18/22 05:05 Labs: Laboratory Results - last 24 hr 09/17/22 19:00: WBC 8.4, RBC 2.90 L, Hgb 8.2 L, Hct 25.9 L, MCV 89.3, MCH 28.3, MCHC 31.7 L, RDW Std Deviation 47.5 H, RDW Coeff of Dipti 14.5, Plt Count 247, MPV 9.9, Immature Gran % (Auto) 0.800, Neut % (Auto) 77.3 H, Lymph % (Auto) 6.8 L, [place] % (Auto) 11.7 H, Eos % (Auto) 3.0, Baso % (Auto) 0.4, Absolute Neuts (auto) 6.5, Absolute Lymphs (auto) 0.57 L, Nucleated RBC % 0, Differential Comment SEE COMMENT, Platelet Estimate ADEQUATE, RBC Morphology N CHROM, Hypochromasia 1+, Anisocytosis 1+, Macrocytosis 1+ 09/17/22 19:00: Sodium 131 L, Potassium 4.2, Chloride 101, Carbon Dioxide 29.0, Anion Gap 1 L, BUN 29 H, Creatinine 0.63 L, Estim Creat Clear Calc 129.68, Est GFR (MDRD) Af Amer 164, Est GFR (MDRD) Non-Af 135, BUN/Creatinine Ratio 45.7 H, Glucose 151 H, Calcium 8.1 L 09/17/22 19:00: Lactic Acid 1.2 09/17/22 19:00: Blood Type A POSITIVE, Antibody Screen NEGATIVE 09/17/22 19:00: Crossmatch See Detail 09/17/22 23:25: Hgb 7.9 L, Hct 24.9 L 09/18/22 05:05: Hgb 7.2 L, Hct 22.8 L 09/18/22 05:05: Sodium 133 L, Potassium 3.8, Chloride 102, Carbon Dioxide 25.0, Anion Gap 6, BUN 27 H, Creatinine 0.58 L, Estim Creat Clear Calc 124.48, Est GFR (MDRD) Af Amer 180, Est GFR (MDRD) Non-Af 148, BUN/Creatinine Ratio 46.2 H, Glucose 122 H, Calcium 8.3 L 09/18/22 05:45: PT 16.4 H, INR 1.3, APTT 49.3 H 09/18/22 05:45: TSH 1.14 Physical Exam Narrative General: Awake, difficulty answering orientation questions HEENT: Atraumatic, normocephalic Eyes: Anicteric, normal conjunctiva, extraocular movements grossly intact Neck: Supple Respiratory: Clear to auscultation bilaterally, normal respiratory effort Cardiovascular: Regular rate and rhythm GI: Soft, nondistended, does not seem to be tender to palpation, no rebound guarding or rigidity, Extremities: Some right upper extremity edema Musculoskeletal: Moving extremities in bed Neuro: Expressive aphasia Skin: No rashes appreciated Psych: Attempts to be cooperative Assessment & Plan Assessment/Plan (1) ABLA (acute blood loss anemia): PLAN: Plan #Bright red blood per rectum/GI bleed -Recent discharge 09/15 after admission with colonoscopy that demonstrated large stercoral ulcer that was treated endoscopically and felt it was due to his significant constipation in the setting of anticoagulation. He was started on a bowel regimen. did not want placement last visit TCU and patient was denied from TCU and was taken home with home health but history presenting with bright red blood per rectum -CTA obtained to assess for any active bleeding, this demonstrated large amount of stool in the colon and diffuse bony metastasis -Most recently had stercoral ulcer seen on colonoscopy, this time does have elevated BUN but unclear if this can indicate upper bleed but given recently normal EGD with a colonoscopy positive for stercoral ulcer more likely lower bleed, will have lower endoscopy at 2 PM -GI c/s -Trending H&H -Hold Eliquis and aspirin #Chronic dysphagia secondary to CVA -On tube feeds -Given possible need for intervention holding at this time #History of CAD status post CABG/left MCA CVA on 06/29 -Continue statin, held aspirin and Eliquis -Continue beta-leonardo #metastatic squamous cell carcinoma -Per oncology note 06/27, most likely from skin of face to right parotid gland and bones. -Has appointment with oncology in the office this week -Given patient's frequent hospitalizations and missing his treatment suspect poor prognosis. Have discussed with regarding hospice and CODE STATUS several times but strongly not agreeable at this time -Today 09/18 discussed extensively hospice and prognosis and plans moving forward. Presently want to continue aggressive intervention, will reassess after patient's colonoscopy and intervention today #Hypertension -Continue to adjust regimen #Chronic stasis 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: -Continue with aggressive offloading #DVT ppx: SCDs Ashley Nowak MD Time spent in the patient's overall evaluation,decision-making process, review of diagnostic data, adjustment of management, discussion with other providers, nursing nursing and ancillary staff involved in patient's care documentation, 30 Minutes Charges/Coding Visit Charges Inpatient E&M: 19952 Subs Hosp L2
--- NOTE | 2022-09-18 09:28 | WOUNDNOTE ---
wound photo: left great toe
--- NOTE | 2022-09-18 09:29 | WOUNDNOTE ---
wound photo: left heel
--- NOTE | 2022-09-18 09:29 | WOUNDNOTE ---
wound photo: right lateral foot
--- NOTE | 2022-09-18 09:30 | WOUNDNOTE ---
wound photo: right heel
--- NOTE | 2022-09-18 09:31 | WOUNDNOTE ---
wound photo: back
--- NOTE | 2022-09-18 09:31 | WOUNDNOTE ---
wound photo: right upper shoulder
--- NOTE | 2022-09-18 09:32 | WOUNDNOTE ---
wound photo: right hip
--- NOTE | 2022-09-18 09:32 | WOUNDNOTE ---
wound photo: sacrum
[2022-09-18] MEDS: Electrolyte Solution/Peg's 4000 ML NG (09:33)
[2022-09-18] MEDS: oxyCODONE 5 MG Tablet 10 MG GT (09:34)
--- NOTE | 2022-09-18 10:37 | NURSING ---
pt with 14beat run wide complex vent rhthym. dr. shields aware and charger operator helper. went home for a minute to take borrowed car back.
--- NOTE | 2022-09-18 10:38 | NURSING ---
[id number]-dr. shields in to discuss pt's poor prognosis with . tearful and said well im not making any decisions. i just want him to stop bleeding
[2022-09-18] MEDS: Carvedilol 12.5 MG Tablet GT ×2 (10:57→22:47)
[2022-09-18] MEDS: Contrast Allergy Safety Check IV (10:57)
--- NOTE | 2022-09-18 11:06 | NURSING ---
DR KNIGHT AWARE OF 14 BEAT RUN OF V-TACH- WILL REVIEW CHART AND NO NEW ORDERS AT THIS TIME -SHE IS AWARE THAT PT HAD BLOOD RUNNING AT THIS TIME- VS OBTAINED
[2022-09-18 11:56] LABS: Magnesium 1.6 mg/dL (1.6-2.6); Phosphorus 2.9 mg/dL (2.5-4.9)
--- NOTE | 2022-09-18 13:33 | WOUNDNOTE ---
Blood transfusion complete. present at bedside. more Golytely given per order. small smeary clot noted in attends. no stool noted. yana care provided and new attends placed.
[2022-09-18] MEDS: 0.9% Normal Saline 1,000 ML 100 ML IV (13:41)
--- NOTE | 2022-09-18 13:50 | CASEMGMT ---
LLOYD GOA Readmission Note Previous Admission:?09/09/22-09/15/22? Diagnosis:?altered mental status, acute GIB DC Disposition: Home with?[facility] and palliative care Current Admission? Current Diagnosis: Bright red blood per rectum Pt is a 62 M with a significant history of CVA with expressive aphasia; CAD status post stents who presents to the emergency department with bright red blood per rectum. Hgb on admission 8.2. Pt dc'd 2 days ago with same diagnosis, pt had stercoral ulcer and had been restarted back on aspirin and eliquis. Spoke with Shani from [facility], who states that they were scheduled to start services today with patient. LLOYD GAO into pt room, pt at bedside. Pt provided information that pt has not yet had any appts set up from last dc. She states that the oncology appt has been rescheduled until November 08 so pt is able to get therapy to be able to be stronger to go into the office. Pt states does phone visits with pt and . Pt has been receiving the lactulose as ordered but is unsure about the docusate. Palliative Care is active with pt and the next visit is in October. Pt states that pt does want to complete therapy and the plan is for HHC at me again through [facility] and palliative care. Updated palliative care that pt is admitted. Pt to go for colonoscopy this date.
--- NOTE | 2022-09-18 13:57 | CHAPLAIN ---
Type of Pastoral Visit _x__ Initial Visit ___ Follow-up Visit ___ On-call Visit ___ General Patient Visit ___ Spiritual Assessment ___ Family Conference ___ Bereavement ___ Rapid Response ___ Code Blue ___ Other (describe below) Pastoral Care Referral From _x__ Patient ___ Family ___ Nurse ___ Physician ___ [employer] Driver ___ Associate Merchant ___ Other (describe below) Sacrament/Intervention ___ Active listening ___ Anointing ___ Episcopal ___ Bereavement ___ Communion ___ Charlette exploration ___ ___ Life review ___ Prayer ___ Reconciliation ___ Sacrament of Sick _x__ Supportive presence ___ Wedding ___ Other (describe below) Pastoral Comments patient immediately recognizes this project control officer from previous admissions; spouse is with him; RN is getting him prepared for his scope; pt appears lethargic and is unable to clearly communicates answers and words at this time; offer to return later is acknowledged by spouse
--- NOTE | 2022-09-18 16:39 | OP.COLON_ITS ---
Patient Name: Sacha Jones Procedure Date: 09/18/2022 4:02 PM Date of : 1960 Age: 62 Procedure: Colonoscopy Indications: Hematochezia Providers: Abel Flores DO Medicines: Monitored Anesthesia Care Patient Profile: This is a 62 year old male. Refer to note in patient chart for documentation of history and physical. Last Colonoscopy: 1 week ago. Complications: No immediate complications. Procedure: Pre-Anesthesia Assessment: - Prior to the procedure, a History and Physical was performed, and patient medications and allergies were reviewed. The risks and benefits of the procedure and the sedation options and risks were discussed with the patient. All questions were answered and informed consent was obtained. Patient identification and proposed procedure were verified by the physician in the pre-procedure area. Mental Status Examination: alert and oriented. Airway Examination: normal oropharyngeal airway and neck mobility. Respiratory Examination: clear to auscultation. CV Examination: normal. Prophylactic Antibiotics: The patient does not require prophylactic antibiotics. Prior Anticoagulants: The patient has taken no previous anticoagulant or antiplatelet agents. ASA Grade Assessment: II - A patient with mild systemic disease. After reviewing the risks and benefits, the patient was deemed in satisfactory condition to undergo the procedure. The anesthesia plan was to use monitored anesthesia care (MAC). This assessment was completed before the administration of sedation. After I obtained informed consent, the scope was passed under direct vision. Throughout the procedure, the patient's blood pressure, pulse, and oxygen saturations were monitored continuously. The colonoscope was introduced through the anus and advanced to the splenic flexure. The colonoscopy was performed without difficulty. The patient tolerated the procedure well. The quality of the bowel preparation was 90 percent obscured. Scope In: 4:16:37 PM Scope Out: 4:28:17 PM Total Procedure Duration Time 0 hours 11 minutes 40 seconds Findings: The perianal and digital rectal examinations were normal. A single (solitary) six mm ulcer was found in the rectum. Oozing was present. Stigmata of recent bleeding were present. Area was successfully injected with 5 mL of a 1:10,000 solution of epinephrine for drug delivery. Coagulation for hemostasis using heater probe was successful. Estimated blood loss: 15 mL requiring treatment with electrocautery. Impression: - A single (solitary) ulcer in the rectum. Injected. Treated with a heater probe. - No specimens collected. Recommendation: - Return patient to [facility] for ongoing care. - Resume previous diet. - Continue present medications. - No repeat colonoscopy due to age. Procedure Code(s): --- Professional --- 49813, 52, Colonoscopy, flexible; with control of bleeding, any method CPT copyright 2017 [employer]. All rights reserved. The codes documented in this report are preliminary and upon analyst microbiology lab review may be revised to meet current compliance requirements. Abel Flores DO 09/18/2022 4:38:25 PM This report has been signed electronically. Number of Addenda: 0 Note Initiated On: 09/18/2022 4:02 PM
--- NOTE | 2022-09-18 16:39 | OP.CCLET_ITS ---
09/18/2022 Delgado Smith Re : Colonoscopy procedure for Sacha Jones Dear Sarah This procedure was performed on Sunday, September 18, 2022. My impressions and recommendations are as follows: Impressions : - A single (solitary) ulcer in the rectum. Injected. Treated with a heater probe. - No specimens collected. Recommendations : - Return patient to [facility] for ongoing care. - Resume previous diet. - Continue present medications. - No repeat colonoscopy due to age. My findings are described in the full procedure note, which is enclosed. If I can be of further assistance, please feel free to contact me at . Sincerely, Abel Flores, 09/18/2022 4:38:25 PM This report has been signed electronically.
[2022-09-18 17:05] LABS: Hematocrit 25.6 % (40-54); Hemoglobin 8.6 g/dL (13.0-16.5)
[2022-09-18] MEDS: hydrALAZINE 50 MG Tablet GT ×2 (17:33→22:47)
[2022-09-18] MEDS: Magnesium Sulfate 4gm/100mL 4 GM/100 ML IV.SOLN. IV (18:04)
[2022-09-18] MEDS: Atorvastatin Calcium 40 MG Tablet GT (22:47)
[2022-09-18] MEDS: Lactulose 20 GM/30 ML UDC 30 GM GT (22:47)
[2022-09-18] MEDS: Lisinopril 20 MG Tablet GT (22:47)
[2022-09-18] MEDS: Docusate Sodium 100 MG/10 ML UDC GT (22:47)
[2022-09-18] MEDS: Polyethylene Glycol 3350 17 GM PACKET GT (22:47)
[2022-09-18] MEDS: Doxazosin 4 MG Tablet GT (22:47)
[2022-09-18] MEDS: Jevity 1.5. 1,000 ML Bottle 250 ML GT (22:48)
[2022-09-18] MEDS: MELATONIN 3 MG TABLET GT (22:52)
[2022-09-18 23:10] LABS: Hematocrit 27.8 % (40-54)
[2022-09-19] VITALS (8 sets, daily range): BP systolic 135–149; BP diastolic 54–77; PULSE 63–99; RESP 18–20; TEMP 36.8–37.3; O2SAT 97–99; BMI 20.5
[2022-09-19] MEDS: 0.9% Saline Lock 10 ML Syringe IV ×3 (06:10→23:01)
[2022-09-19] MEDS: hydrALAZINE 50 MG Tablet GT ×3 (06:10→23:00)
[2022-09-19] MEDS: Jevity 1.5. 1,000 ML Bottle 250 ML GT ×5 (06:11→23:01)
[2022-09-19 06:43] LABS: Absolute Lymphocyte Count 0.46 X10^3/uL (0.83-4.51); Absolute Neutrophil Count 9.6 X10^3/uL (2.0-7.7); Basophil# 0.06 X10^3/uL; Basophil% 0.5 % (0-1); Eosinophil# 0.27 X10^3/uL; Eosinophils% 2.3 % (0-5); Hemoglobin 10.3 g/dL (13.0-16.5); Lymphocyte # 0.46 X10^3/ul (0.83-4.51); Lymphocyte % 3.9 % (19-41); Mean Corp Hgb Conc 32.2 g/dL (32-36); Mean Corpuscular Hgb 28.9 pg (27.0-32.0); Mean Corpuscular Volume 89.6 fL (80-94); Mean Platelet Vol. 9.7 fl (6.2-12.0); Monocyte# 1.19 X10^3/uL; Monocyte% 10.2 % (0-10); NRBC Flagged by Analyzer 0 % (0-5); Neutrophil # 9.64 X10^3/uL (2.7-7.7); Neutrophil % 82.3 % (47-70); POSITIVE DIFFERENTIAL YES; Platelet Count 251 K/mm3 (150-450); RBC Distribution Width CV 14.5 % (11.6-14.6); Red Blood Count 3.57 M/mm3 (4.6-6.2); White Blood Count 11.7 K/mm3 (4.4-11.0)
[2022-09-19 06:52] LABS: Differential Indicated SCAN CRITERIA MET
[2022-09-19 07:13] LABS: Differential Comment SCANNED
[2022-09-19 07:14] LABS: ALB/GLOB Ratio 0.5 RATIO (0.9-2.4); AST(SGOT) 27 U/L (15-37); Alanine Aminotransfer ALT/SGPT 26 U/L (16-61); Albumin, Serum 2.4 g/dL (3.2-5.0); Alkaline Phosphatase 178 U/L (45-117); Anion Gap 6 (5-15); BUN 18 mg/dL (7-18); BUN/Creat Ratio 25.8 RATIO (10-20); Calcium,Total 8.7 mg/dL (8.5-10.1); Chloride 105 mmol/L (98-107); EST Glomerular Filtration Rate 121 mL/min (>60); Est Glom Filt Rate - Afr Amer 146 mL/min (>60); Estimated Creatinine Clearance 103.75 ml/min; Globulin 4.8 g/dL (2.2-4.2); Glucose 150 mg/dL (74-106); Potassium 3.2 mmol/L (3.5-5.1); Protein, Total 7.2 g/dL (6.4-8.2); Sodium Level 138 mmol/L (136-145)
[2022-09-19] MEDS: Carvedilol 12.5 MG Tablet GT ×2 (09:24→23:00)
[2022-09-19] MEDS: amLODIPine 10 MG Tablet GT (09:24)
[2022-09-19] MEDS: Allopurinol 100 MG Tablet GT (09:24)
[2022-09-19] MEDS: Lisinopril 20 MG Tablet GT ×2 (09:24→23:00)
[2022-09-19] MEDS: Lansoprazole 15 MG Capsule.DR 30 MG GT (09:24)
[2022-09-19] MEDS: Menthol/Lanolin/Calamine/Znox 113 GM Tube 1 APPLIC TOPICAL ×2 (09:25→23:02)
[2022-09-19] MEDS: Potassium Chloride Oral Soln 20 MEQ/15 ML UDC 40 MEQ GT (09:40)
--- NOTE | 2022-09-19 12:09 | CHAPLAIN ---
Type of Pastoral Visit ___ Initial Visit _x__ Follow-up Visit ___ On-call Visit ___ General Patient Visit ___ Spiritual Assessment ___ Family Conference ___ Bereavement ___ Rapid Response ___ Code Blue ___ Other (describe below) Pastoral Care Referral From _x__ Patient _x__ Family ___ Nurse ___ Physician ___ Offset Printer ___ Night Club Manager ___ Other (describe below) Sacrament/Intervention ___ Active listening ___ Anointing ___ Worship ___ Bereavement ___ Communion ___ Charlette exploration ___ ___ Life review _x__ Prayer ___ Reconciliation ___ Sacrament of Sick _x__ Supportive presence ___ Wedding ___ Other (describe below) Pastoral Comments patient is resting in bed and available today for a more focused time of support and presence; asks to step out for something to eat while this steam conditioner operator visits; pt is alert but has difficulty in responding much to the conversation; he gives yes, no, and don't ask as his verbal responses; pt does follow this steam conditioner operator with his eyes; calm presence, reassuring words, honest questions given to determine emotional needs at this time; time given in silence to offer companionship; pt welcomes prayer support
--- NOTE | 2022-09-19 13:47 | PCM.PN.HOSP ---
Reason for Visit Reason for Visit: Diagnoses Acute posthemorrhagic anemia (09/17/22) Ulcer of anus and rectum (09/17/22) Gastrointestinal hemorrhage, unspecified (09/17/22) Pressure ulcer of unspecified site, stage 1 (09/17/22) Unspecified open wound of unspecified back wall of thorax without penetration into thoracic cavity, initial encounter (09/17/22) Subjective Subjective Had repeat colonoscopy yesterday which redemonstrated a single solitary ulcer in the rectum which was injected and treated with a heater probe. Patient somewhat tired and worn down today, possible speech eval tomorrow Objective Data Objective Data Vital Signs: Vital Signs Temp Pulse Resp BP Pulse Ox O2 Del Method 98.2 F 77 20 H 148/59 H 99 Room Air 09/19/22 05:45 09/19/22 06:10 09/19/22 05:45 09/19/22 06:10 09/19/22 08:00 09/19/22 08:00 Oxygen Delivery Method Room Air Weight: 68.8 kg Body Mass Index (BMI) 20.5 Intake & Output: Intake and Output for Last 24 Hours 09/17/22 09/18/22 09/19/22 23:59 23:59 23:59 Intake Total 560.42 / 560.42 3613.33 / 4043.33 2150 / 2150 Output Total 4200 / 5275 1875 / 1875 Balance 560.42 / 560.42 -586.67 / -1231.67 275 / 275 Medical Nutrition Assessment Dietitian: Malnutrition Criteria Met Start: 09/18/22 08:40 Freq: Status: Active Protocol: Document 09/18/22 08:40 AG (Rec: 09/18/22 08:40 [id number]) Nutrition Malnutrition Evidence of Malnutrition Exists Yes Malnutrition (severe): Acute Illness/Injury Evidenced By Suboptimal Energy Intake ( Severe),Weight Loss (Severe) Clinical Problem Acute Disease or Injury Related Malnutrition Etiology severe, acute malnutrition r/t inadequate energy intake d/t recurrent GI bleed Signs/Symptoms as evidenced by unintentional 1.8kg/2.5% wt loss < 1 week; estimated energy needs meeting <50% of estimated energy needs x 5 days Status Active Problem Recommendation Dietitian Recommendations/Changes 1) When medically indicated- Jevity 1.5 250mL bolus 5x/day w/ 90mL H2O flush before and after each bolus to provide 1875 calories, 79 g protein, and 1850mL fluid/day. 1 packet Sujit mixed in 8oz water BID via PEG. 2) Would not advance PO diet without MANAGER QUALITY evaluation. Noted MANAGER QUALITY consulted. Regular diet- textures/consistency per MANAGER QUALITY if appropriate. 3) Daily wts. Lab / Micro Data Result Diagrams: 09/19/22 06:36 09/19/22 06:36 Labs: Laboratory Results - last 24 hr 09/18/22 16:44: Hgb 8.6 L, Hct 25.6 L 09/18/22 22:58: Hgb 9.0 L, Hct 27.8 L 09/19/22 06:36: WBC 11.7 H, RBC 3.57 L, Hgb 10.3 L, Hct 32.0 L, MCV 89.6, MCH 28.9, MCHC 32.2, RDW Std Deviation 47.0 H, RDW Coeff of Dipti 14.5, Plt Count 251, MPV 9.7, Immature Gran % (Auto) 0.800, Neut % (Auto) 82.3 H, Lymph % (Auto) 3.9 L, [place] % (Auto) 10.2 H, Eos % (Auto) 2.3, Baso % (Auto) 0.5, Absolute Neuts (auto) 9.6 H, Absolute Lymphs (auto) 0.46 L, Nucleated RBC % 0, Differential Comment SCANNED 09/19/22 06:36: Sodium 138, Potassium 3.2 L, Chloride 105, Carbon Dioxide 27.0, Anion Gap 6, BUN 18, Creatinine 0.70, Estim Creat Clear Calc 103.75, Est GFR (MDRD) Af Amer 146, Est GFR (MDRD) Non-Af 121, BUN/Creatinine Ratio 25.8 H, Glucose 150 H, Calcium 8.7, Total Bilirubin 0.80, AST 27, ALT 26, Alkaline Phosphatase 178 H, Total Protein 7.2, Albumin 2.4 L, Globulin 4.8 H, Albumin/Globulin Ratio 0.5 L Physical Exam Narrative General: Resting in bed, speech at bedside to assess swallowing, expressive aphasia HEENT: Atraumatic Eyes: extraocular movements grossly intact Neck: Supple Respiratory: normal respiratory effort Cardiovascular: Has had the somewhat edematous right arm GI: nondistended Extremities: History of stroke, requires significant support for movement Neuro: History of stroke, requires significant support for movement Psych: Attempts to be cooperative Assessment & Plan Assessment/Plan (1) ABLA (acute blood loss anemia): PLAN: Plan #Bright red blood per rectum/GI bleed/bleeding ulcer in rectum -Recent discharge 09/15 after admission with colonoscopy that demonstrated large stercoral ulcer that was treated endoscopically and felt it was due to his significant constipation in the setting of anticoagulation. He was started on a bowel regimen. did not want placement last visit TCU and patient was denied from TCU and was taken home with home health but history presenting with bright red blood per rectum -CTA obtained to assess for any active bleeding, this demonstrated large amount of stool in the colon and diffuse bony metastasis -Most recently had stercoral ulcer seen on colonoscopy, this time does have elevated BUN but unclear if this can indicate upper bleed but given recently normal EGD with a colonoscopy positive for stercoral ulcer more likely lower bleed, will have lower endoscopy at 2 PM -GI c/s -Trending H&H -Hold Eliquis and aspirin -09/19: Patient had colonoscopy 09/18 which redemonstrated a single bleeding ulcer in the rectum which was injected and treated with heater probe, continue aggressive bowel regimen, discussed with GI and given 3 bleeds in the last 1 month resuming anticoagulation not recommended. We will again discuss goals of care with today #Chronic dysphagia secondary to CVA -On tube feeds -Given possible need for intervention holding at this time -09/19: Resume tube feeds, may have repeat formal swallow eval tomorrow #History of CAD status post CABG/left MCA CVA on 06/29 -Continue statin, held aspirin and Eliquis -Continue beta-leonardo #metastatic squamous cell carcinoma -Per oncology note 06/27, most likely from skin of face to right parotid gland and bones. -Has appointment with oncology in the office this week -Given patient's frequent hospitalizations and missing his treatment suspect poor prognosis. Have discussed with regarding hospice and CODE STATUS several times but strongly not agreeable at this time -Today 09/18 discussed extensively hospice and prognosis and plans moving forward. Presently want to continue aggressive intervention, will reassess after patient's colonoscopy and intervention today -09/19: We will discuss goals of care/discharge planning with again today #Hypertension -Continue to adjust regimen #Chronic stasis 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: -Continue with aggressive offloading #DVT ppx: SCDs Ashley Nowak MD Time spent in the patient's overall evaluation,decision-making process, review of diagnostic data, adjustment of management, discussion with other providers, nursing nursing and ancillary staff involved in patient's care documentation, 30 Minutes Charges/Coding Visit Charges Inpatient E&M: 44657 Subs Hosp L2
--- NOTE | 2022-09-19 15:49 | PN.GI_ITS ---
Subjective Subjective Patient has not had signs or symptoms of GI bleeding today. He flexible sigmoidoscopy yesterday for lower GI bleeding suspected to have bleeding at the site of stercoral ulcer. He was treated endoscopically. His hemoglobin seems to be stable today. Objective Data Objective Data Vital Signs: Vital Signs Temp Pulse Resp BP Pulse Ox O2 Del Method 98.2 F 63 20 H 135/64 H 99 Room Air 09/19/22 05:45 09/19/22 15:04 09/19/22 05:45 09/19/22 15:04 09/19/22 08:00 09/19/22 08:00 Oxygen Delivery Method Room Air Weight: 151 lb 10.848 oz Body Mass Index (BMI) 20.5 Intake & Output: Intake and Output for Last 24 Hours 09/17/22 09/18/22 09/19/22 23:59 23:59 23:59 Intake Total 560.42 / 560.42 3613.33 / 4043.33 2150 / 2150 Output Total 4200 / 5275 1875 / 1875 Balance 560.42 / 560.42 -586.67 / -1231.67 275 / 275 Medical Nutrition Assessment Dietitian: Malnutrition Criteria Met Start: 09/18/22 08:40 Freq: Status: Active Protocol: Document 09/18/22 08:40 AG (Rec: 09/18/22 08:40 AG [id number]) Nutrition Malnutrition Evidence of Malnutrition Exists Yes Malnutrition (severe): Acute Illness/Injury Evidenced By Suboptimal Energy Intake ( Severe),Weight Loss (Severe) Clinical Problem Acute Disease or Injury Related Malnutrition Etiology severe, acute malnutrition r/t inadequate energy intake d/t recurrent GI bleed Signs/Symptoms as evidenced by unintentional 1.8kg/2.5% wt loss < 1 week; estimated energy needs meeting <50% of estimated energy needs x 5 days Status Active Problem Recommendation Dietitian Recommendations/Changes 1) When medically indicated- Jevity 1.5 250mL bolus 5x/day w/ 90mL H2O flush before and after each bolus to provide 1875 calories, 79 g protein, and 1850mL fluid/day. 1 packet Sujit mixed in 8oz water BID via PEG. 2) Would not advance PO diet without RESEARCH INSTRUMENTATION TECHNICIAN evaluation. Noted RESEARCH INSTRUMENTATION TECHNICIAN consulted. Regular diet- textures/consistency per RESEARCH INSTRUMENTATION TECHNICIAN if appropriate. 3) Daily wts. Lab / Micro Data Result Diagrams: 09/19/22:36 09/19/22 06:36 Labs: Laboratory Results - last 24 hr 09/18/22 16:44: Hgb 8.6 L, Hct 25.6 L 09/18/22 22:58: Hgb 9.0 L, Hct 27.8 L 09/19/22 06:36: WBC 11.7 H, RBC 3.57 L, Hgb 10.3 L, Hct 32.0 L, MCV 89.6, MCH 28.9, MCHC 32.2, RDW Std Deviation 47.0 H, RDW Coeff of Dipti 14.5, Plt Count 251, MPV 9.7, Immature Gran % (Auto) 0.800, Neut % (Auto) 82.3 H, Lymph % (Auto) 3.9 L, [place] % (Auto) 10.2 H, Eos % (Auto) 2.3, Baso % (Auto) 0.5, Absolute Neuts (auto) 9.6 H, Absolute Lymphs (auto) 0.46 L, Nucleated RBC % 0, Differential Comment SCANNED 09/19/22 06:36: Sodium 138, Potassium 3.2 L, Chloride 105, Carbon Dioxide 27.0, Anion Gap 6, BUN 18, Creatinine 0.70, Estim Creat Clear Calc 103.75, Est GFR (MDRD) Af Amer 146, Est GFR (MDRD) Non-Af 121, BUN/Creatinine Ratio 25.8 H, Glucose 150 H, Calcium 8.7, Total Bilirubin 0.80, AST 27, ALT 26, Alkaline Phosphatase 178 H, Total Protein 7.2, Albumin 2.4 L, Globulin 4.8 H, Albumin/Globulin Ratio 0.5 L Physical Exam Narrative General: Resting in bed, speech at bedside to assess swallowing, expressive aphasia HEENT: Atraumatic Eyes: extraocular movements grossly intact Neck: Supple Respiratory: normal respiratory effort Cardiovascular: Has had the somewhat edematous right arm GI: nondistended Extremities: History of stroke, requires significant support for movement Neuro: History of stroke, requires significant support for movement Psych: Attempts to be cooperative Assessment & Plan Assessment/Plan (1) ABLA (acute blood loss anemia): PLAN: Plan Bright red blood per rectum/GI bleed -The differential diagnosis includes hemorrhoidal, diverticular or ischemic d isease. His hemoglobin is similar to when he was discharged from the hospital. He has been off of Eliquis. Stercoral ulcer secondary to chronic constipation. Recommend lactulose 20ml TID via PEG tube. Since he has had so many episodes of lower GI bleeding secondary to nonhealing stercoral ulcer I would not recommend restarting anticoagulation. I would only do SCDs for DVT prophylaxis. Chronic dysphagia -On tube feeds Atrial fibrillation -Eliquis held Charges/Coding Visit Charges Inpatient E&M: 31400 [facility] Hosp L3
--- NOTE | 2022-09-19 15:55 | CASEMGMT ---
Spoke with hospitalist, pt is not agreeable to hospice at this time. Referral sent to [facility] with orders for SN, PT, OT, ST, CONCESSION SUPERVISOR and BLUING OVEN TENDER via [facility].
[2022-09-19] MEDS: Juven (unflavored) Packet 1 PACKET GT (18:14)
[2022-09-19] MEDS: Doxazosin 4 MG Tablet GT (23:00)
[2022-09-19] MEDS: Acetaminophen 325 MG Tablet 650 MG PO (23:00)
[2022-09-19] MEDS: Atorvastatin Calcium 40 MG Tablet GT (23:00)
[2022-09-19] MEDS: MELATONIN 3 MG TABLET GT (23:00)
[2022-09-19] MEDS: Polyethylene Glycol 3350 17 GM PACKET GT (23:01)
[2022-09-19] MEDS: Docusate Sodium 100 MG/10 ML UDC GT (23:01)
[2022-09-19] MEDS: Lactulose 20 GM/30 ML UDC 30 GM GT (23:01)
[2022-09-20 03:43] VITALS: BMI 20.2
[2022-09-20 03:56] VITALS: BP 162/32; PULSE 58; RESP 18; TEMP 36.9; O2SAT 99
[2022-09-20 06:41] LABS: Absolute Lymphocyte Count 0.66 X10^3/uL (0.83-4.51); Basophil# 0.03 X10^3/uL; Basophil% 0.4 % (0-1); Eosinophil# 0.18 X10^3/uL; Eosinophils% 2.3 % (0-5); Hematocrit 26.6 % (40-54); Hemoglobin 8.5 g/dL (13.0-16.5); Lymphocyte # 0.66 X10^3/ul (0.83-4.51); Lymphocyte % 8.4 % (19-41); Mean Corpuscular Hgb 28.6 pg (27.0-32.0); Mean Corpuscular Volume 89.6 fL (80-94); Mean Platelet Vol. 9.9 fl (6.2-12.0); Monocyte# 0.93 X10^3/uL; Monocyte% 11.9 % (0-10); NRBC Flagged by Analyzer 0 % (0-5); Neutrophil # 5.97 X10^3/uL (2.7-7.7); Neutrophil % 76.1 % (47-70); Platelet Count 226 K/mm3 (150-450); RBC Distribution Width CV 14.6 % (11.6-14.6); RBC Distribution Width SD 47.2 fl (35.1-43.9); Red Blood Count 2.97 M/mm3 (4.6-6.2); White Blood Count 7.8 K/mm3 (4.4-11.0)
[2022-09-20 06:48] VITALS: BP 162/32; PULSE 58
[2022-09-20] MEDS: Lactulose 20 GM/30 ML UDC 30 GM GT (06:48)
[2022-09-20] MEDS: hydrALAZINE 50 MG Tablet GT (06:48)
[2022-09-20] MEDS: Jevity 1.5. 1,000 ML Bottle 250 ML GT ×2 (06:48→10:13)
--- NOTE | 2022-09-20 07:00 | PN.GI_ITS ---
Subjective Subjective There was no signs or symptoms of lower GI bleeding as per nursing. Objective Data Objective Data Vital Signs: Vital Signs Temp Pulse Resp BP Pulse Ox O2 Del Method 98.2 F 67 18 139/72 H 99 Room Air 09/20/22 14:20 09/20/22 14:20 09/20/22 14:20 09/20/22 14:20 09/20/22 14:20 09/20/22 14:20 Oxygen Delivery Method Room Air Weight: 149 lb 11.102 oz Body Mass Index (BMI) 20.2 Intake & Output: Intake and Output for Last 24 Hours 09/18/22 09/19/22 09/20/22 23:59 23:59 23:59 Intake Total 3613.33 / 4043.33 3440 / 3440 1130 / 1130 Output Total 4200 / 5275 2175 / 2625 1050 / 1050 Balance -586.67 / -1231.67 1265 / 815 80 / 80 Lab / Micro Data Result Diagrams: 09/20/22 06:15 09/20/22 06:15 Labs: Laboratory Results - last 24 hr 09/20/22 06:15: WBC 7.8, RBC 2.97 L, Hgb 8.5 L, Hct 26.6 L, MCV 89.6, MCH 28.6, MCHC 32.0, RDW Std Deviation 47.2 H, RDW Coeff of Dipti 14.6, Plt Count 226, MPV 9.9, Immature Gran % (Auto) 0.900, Neut % (Auto) 76.1 H, Lymph % (Auto) 8.4 L, [place] % (Auto) 11.9 H, Eos % (Auto) 2.3, Baso % (Auto) 0.4, Absolute Neuts (auto) 6.0, Absolute Lymphs (auto) 0.66 L, Nucleated RBC % 0 09/20/22 06:15: Sodium 138, Potassium 3.8, Chloride 105, Carbon Dioxide 27.0, Anion Gap 6, BUN 19 H, Creatinine 0.60 L, Estim Creat Clear Calc 119.45, Est GFR (MDRD) Af Amer 173, Est GFR (MDRD) Non-Af 143, BUN/Creatinine Ratio 31.5 H, G lucose 119 H, Calcium 8.5, Total Bilirubin 0.40, AST 18, ALT 24, Alkaline Jonnathan sphatase 145 H, Total Protein 6.5, Albumin 2.2 L, Globulin 4.3 H, Albumin/Globulin Ratio 0.5 L Physical Exam Narrative General: Resting in bed, expressive aphasia HEENT: Atraumatic Eyes: extraocular movements grossly intact Neck: Supple Respiratory: normal respiratory effort Cardiovascular: Has had the somewhat edematous right arm GI: nondistended Extremities: History of stroke, requires significant support for movement Neuro: History of stroke, requires significant support for movement Psych: Attempts to be cooperative Assessment & Plan Assessment/Plan (1) ABLA (acute blood loss anemia): PLAN: Plan Bright red blood per rectum/GI bleed -The differential diagnosis includes hemorrhoidal, diverticular or ischemic disease. His hemoglobin is similar to when he was discharged from the hospital. He has been off of Eliquis. Stercoral ulcer secondary to chronic constipation. Recommend lactulose 20ml TID via PEG tube. Since he has had so many episodes of lower GI bleeding secondary to nonhealing stercoral ulcer I would not amita mmend restarting anticoagulation. I would only do SCDs for DVT prophylaxis. Chronic dysphagia -On tube feeds Atrial fibrillation -Eliquis held Charges/Coding Visit Charges Inpatient E&M: 70272 Subs Hosp L2
[2022-09-20 07:19] VITALS: O2SAT 97
[2022-09-20 07:19] LABS: ALB/GLOB Ratio 0.5 RATIO (0.9-2.4); AST(SGOT) 18 U/L (15-37); Alanine Aminotransfer ALT/SGPT 24 U/L (16-61); Albumin, Serum 2.2 g/dL (3.2-5.0); Alkaline Phosphatase 145 U/L (45-117); Anion Gap 6 (5-15); BUN 19 mg/dL (7-18); BUN/Creat Ratio 31.5 RATIO (10-20); Calcium,Total 8.5 mg/dL (8.5-10.1); Chloride 105 mmol/L (98-107); EST Glomerular Filtration Rate 143 mL/min (>60); Est Glom Filt Rate - Afr Amer 173 mL/min (>60); Estimated Creatinine Clearance 119.45 ml/min; Globulin 4.3 g/dL (2.2-4.2); Glucose 119 mg/dL (74-106); Potassium 3.8 mmol/L (3.5-5.1); Protein, Total 6.5 g/dL (6.4-8.2); Sodium Level 138 mmol/L (136-145)
[2022-09-20] MEDS: Lansoprazole 15 MG Capsule.DR 30 MG GT (10:11)
[2022-09-20] MEDS: Docusate Sodium 100 MG/10 ML UDC GT (10:11)
[2022-09-20] MEDS: Polyethylene Glycol 3350 17 GM PACKET GT (10:11)
[2022-09-20] MEDS: amLODIPine 10 MG Tablet GT (10:12)
[2022-09-20] MEDS: Allopurinol 100 MG Tablet GT (10:12)
[2022-09-20] MEDS: Lisinopril 20 MG Tablet GT (10:12)
[2022-09-20] MEDS: Acetaminophen 325 MG Tablet 650 MG PO (10:12)
[2022-09-20] MEDS: Juven (unflavored) Packet 1 PACKET GT (10:12)
[2022-09-20] MEDS: Carvedilol 12.5 MG Tablet GT (10:12)
--- NOTE | 2022-09-20 10:12 | SP.MBSS_ITS ---
Modified Barium Swallow - Patient Information Study Date: 09/20/22 Study Time: 09:00 Direct Billable Minutes: 135 Total Minutes procedure & reportin Diagnosis: Dysphagia secondary to CVA Referring Physician: Ashley Nowak Reason for Referral: Objectively assess swallow function, assess risk for aspiration, and determine recommendations for least restrictive diet textures and compensatory strategies to improve safety of swallow. Medical History: Sacha Jones is a 62 M with a PMH re: CVA (affecting R side w/ PEG), RAFA, alc ohol abuse, aspiration into airway, bone cancer, atherosclerotic heart disease, CHF, DM type II, HTN, GERD, malignant neoplasm of parotid gland. He presented to [facility] ED 09/17/2022 w/ blood in his rectum. Colonoscopy completed 09/18/2022 and ulcer was treated. ST consulted d/t hx of oropharyngeal dysphagia w/ recent MBSS on 08/15/22 w/ recommendations for puree/mildly thick liquids w/ PEG to meet nutritio n/hydration needs. Patient has been NPO w/ all oral intake via PEG per [employer] since previous hospitalization 08/26/2022-08/30/2022 as he was not tolerating puree/mildly thick liquids at that time. During this admission, the Pt has been tolerating trials of purees and mildly thick liquids at bedside and a repeat MBS was recommended per [employer]. Current Diet Ordered: NPO w/ PEG Dentition: Natural Teeth Mental Status: Impaired Respiratory Status: Oxygenating on Room Air - Penetration-Aspiration Scale Penetration-Aspiration Scale: OBJECTIVE ASSESSMENT OF SWALLOW FUNCTION (QUANTITATIVE ? PER TRIAL): PENETRATION / ASPIRATION SCALE (GARCES): 1 = does not enter airway 2 = enters airway/above vocal folds/ejected 3 = enters airway/above vocal folds/not ejected 4 = enters airway/contacts vocal folds/ejected 5 = enters airway/contacts vocal folds/not ejected 6 = enters airway/below vocal folds/ejected 7 = enters airway/below vocal folds/not ejected despite effort 8 = enters airway/below vocal folds/no effort - Penetration-Aspiration Scale Score Marceline Thick Liquid via teaspoon Result: 1= does not enter airway Marceline Thick Liquid via teaspoon Trial 2 Result: 1= does not enter airway Marceline Thick Liquid via sequential sips from cup Result: 2= enter airway/above vocal folds/ejected Pudding Result: 1= does not enter airway Thin Liquid via teaspoon Result: 2= enter airway/above vocal folds/ejected Thin Liquid via teaspoon Trial 2 Result: 1= does not enter airway Thin liquid via small single sip from cup - self administered Result: 2= enter airway/above vocal folds/ejected Thin liquid via small single sip from cup - administered by [employer] Result: 7= enters airways/below vocal folds/not ejected despite effort Cookie Result: 1= does not enter airway Marceline Thick Liquid via teaspoon Trial 3 Result: 2= enter airway/above vocal folds/ejected Marceline Thick Liquid via teaspoon Trial 4 Result: 1= does not enter airway - Oral Phase Labial Seal: Escape beyond mid-chin Tongue Control During Bolus Hold: Posterior escape of greater than half of bolus Bolus Preparation/Mastication: Slow prolonged chewing/mashing with complete recollection Bolus Transport/Lingual Motion: Repetitive/disorganized tongue motion Oral Residue: Residue collection on oral structures - Pharyngeal Phase Initiation of Pharyngeal Swallow: Bolus head in pyriforms Soft Palate Elevation: No bolus between soft palate and pharyngeal wall Laryngeal Elevation: Partial superior movement thyroid cart/partial apprx aryt- epig petiole Anterior Hyoid Excursion: Complete anterior movement Epiglottic Movement: Complete inversion Laryngeal Vestibule Closure at Height of Swallow: Incomplete; narrow column of air/contrast in laryngeal vestibule Pharyngeal Stripping Wave: Present - diminished Pharyngoesophageal Segment Opening: Parital distension and partial duration; parital obstruction of flow Tongue Base Retraction: Trace column of contrast between tongue base & post. pharyngeal wall Pharyngeal Residue: Collection of residue within or on pharyngeal structures - Diagnosis/Impression Diagnosis: mild to moderate oropharyngeal Impression: The oral phase is characterized by: * anterior bolus loss from the L labial commissure extending beyond mid chin * decreased bolus control w/ more than 1/2 of liquid boluses spilling into the pharynx to the level of the pyriforms prior to swallow onset w/ liquids and to the valleculae w pudding/cookie * slowed lingual motion for A-P bolus transportation * prolonged and somewhat disorganized mastication of solids The pharyngeal phase is characterized by: * mild delay in pharyngeal swallow onset timing, resulting in liquid spilling over the valleculae and into the laryngeal vestibule w/ thin liquid via cup administered by this [employer], resulting in aspiration w/ delayed cough response * cough was weak and due to body habitus/positioning, the vocal folds/trachea were not consistently visible although cough not likely to ejecteco aspirate * incomplete laryngeal vestibule closure w/ reduced thyrohyoid elevation * diminished lower 1/2 pharyngeal stripping wave, decreased pharyngeal contraction and mildly reduced PES distention/duration resulting in a collection of residue w/in the valleculae, aryepiglottic folds and pyriforms, which was successfully reduced w/ a second swallow The esophageal phase was unable to be assessed d/t body habitus/positioning limitations. Recommendations Diet: pureed textures/mildly thick liquids w/ supplementation via PEG as needed Compensatory Strategies: all liquids by teaspoon, small bites, double swallow as needed, slow rate of intake, seated upright for intake Supervision: patient will require 1:1 assistance/total feed via tsp d/t upper extremity limitations Need for Skilled Speech Therapy Services: Yes Treatment to Include: * Assessment of diet tolerance * Education to patient/caregivers re: swallowing strategies to decrease aspiration risk * Oropharyngeal strengthening exercises to improve labial closure, lingual strength/coordination, swallow onset timing, laryngeal vestibule closure and pharyngeal contraction. Consider implementation oral motor exercises, effortful swallow, CTAR and horacio pending patient ability to complete * Would consider trials of thin liquids via teaspoon under [employer] supervision and after thorough oral hygiene is completed * Potential for diet advancement to thin liquids via tsp w/out a repeat MBS, pending tolerance and with close monitoring of pulmonary status, as he demonstrated appropriate sensation w/ cough response to aspiration of thin liquid Education: Educated patient re: results and recommendations immediately follow ing MBS completion. Pt will require further education/reinforcement d/t cognitive limitation s/p CVA. Contact Information [facility] Speech Therapy: Nery Faria M.A. [facility]-[employer] Speech-Language Pathologist [id number] [place] [address] [email or web address] [phone] - Status Active ST Patient: Active
[2022-09-20] MEDS: Menthol/Lanolin/Calamine/Znox 113 GM Tube 1 APPLIC TOPICAL (10:13)
[2022-09-20 10:15] VITALS: BP 166/74; PULSE 66; RESP 18; TEMP 36.9; O2SAT 98
--- NOTE | 2022-09-20 11:21 | WOUNDNOTE ---
Pt incontinent of very large unformed trevino stool. yana care provided. linens changed and new attends placed. patient tolerated well.
[2022-09-20] MEDS: 0.9% Saline Lock 10 ML Syringe IV (11:40)
--- NOTE | 2022-09-20 12:43 | DCINST_ITS ---
Discharge Instructions Diet Discharge Diet: - (CT discharge instructions for recommendations) Activity Discharge Activity: - (Activity as tolerated) Follow Up Care Test Results: Test results from this visit will be discussed in further detail at your follow- up appointment, if applicable. Discharge Plan Admission Admit Date/Time: 09/17/22 20:05 Primary Reason for Your Visit: GI bleed Attending Provider: Ashley Nowak Primary Care Provider: Delgado Smith Consulting Providers: Abel Flores ; Hang Neville Instructions Patient Instructions: Cancer Constipation Tips, ED Lower GI Bleeding (Stable) Additional Instructions / Restrictions: DISCHARGE INSTRUCTIONS PLEASE READ *Please take this with you to your next doctors appointment* -It is advised you do not continue your aspirin or Eliquis due to recurrent bleeds and high risk of rebleeding -You will need to follow-up with Dr. Flores with GI in his office upon discharge. Please call his office to schedule your hospital follow-up appointment (ph. [phone]) -Would recommend lab work (CBC) to check your hemoglobin in 2 to 3 days through your primary care physician's office. Please call their office upon discharge to obtain order for lab work. -Would recommend decreasing your furosemide to 20 mg as he did not appear to be retaining a significant amount of fluid -Lactulose has been increased to 3 times daily through G-tube -Please continue tube feeds. -Diet recommendations: pureed textures/mildly thick liquids w/ supplementation via PEG as needed. -All liquids by teaspoon, small bites, double swallow as needed, slow rate of intake, seated upright for intake. -Will require 1:1 assistance/total feed via tsp d/t upper extremity limitations -Decision to continue Keytruda per oncology -Continue urinary catheter management and wound care -Please call your primary care provider's office upon discharge to schedule a hospital follow up within 1 week. -For any concerning signs or symptoms please call 911 or proceed to the nearest emergency department Discharge Orders/Prescriptions Prescriptions: Continued nitroglycerin 0.4 mg tablet, sublingual 0.4 mg sublingual Q5M PRN (Reason: Cardiac/Chest Pain) Qty: 25 6RF Keytruda 25 mg/mL solution 25 mg IV .UD Rx Instructions: WILL RESTART 11/08/22 acetaminophen 650 mg Suppository 650 mg LA Q4H PRN PRN (Reason: Fever) tamsulosin 0.4 mg capsule 0.4 mg PO QHS 30 Days Qty: 30 0RF atorvastatin 40 mg tablet 40 mg feeding tube QHS Qty: 90 3RF allopurinol 100 mg tablet 100 mg feeding tube DAILY Qty: 30 0RF amlodipine 10 mg tablet 10 mg feeding tube DAILY Qty: 30 0RF Rx Instructions: Hold for SBP less than 130 mmHg bisacodyl 10 mg Suppository 10 mg LA DAILY PRN (Reason: Constipation) Qty: 12 0RF doxazosin 4 mg Tablet 4 mg feeding tube QHS 30 Days Qty: 30 0RF ergocalciferol (vitamin D2) 1,250 mcg (50,000 unit) capsule 1,250 mcg feeding tube SA Qty: 7 0RF Label Comments: TAKE 1 CAPSULE BY MOUTH WEEKLY FOR 90 DAYS Rx Instructions: ONCE A WEEK ON SATURDAYS oxycodone 10 mg tablet 10 mg feeding tube Q4H PRN (Reason: Pain) 3 Days Qty: 1 0RF baclofen 5 mg Granules In Packet 5 mg feeding tube TID PRN (Reason: Muscle Spasm) Qty: 90 0RF lisinopril 20 mg tablet 20 mg PO BID Label Comments: TAKE 1 TABLET BY MOUTH IN THE MORNING AND IN THE EVENING methadone 5 mg tablet 5 mg PO BID docusate sodium 50 mg/5 mL liquid 100 mg G-tube BID carvedilol 12.5 mg tablet 12.5 mg G-tube BID polyethylene glycol 3350 17 gram powder in packet 17 g G-tube BID Rx Instructions: hold for loose stools lansoprazole 30 mg capsule,delayed release(DR/EC) 30 mg feeding tube DAILY hydralazine 50 mg tablet 50 mg feeding tube TID Changed furosemide 40 mg tablet 20 mg feeding tube QHS 30 Days Qty: 30 0RF lactulose 20 gram/30 mL solution 30 g G-tube TID 30 Days Qty: 4050 0RF Discontinued aspirin 81 MG tablet 81 mg feeding tube DAILY Qty: 30 0RF Eliquis 2.5 mg tablet 2.5 mg feeding tube BID Referrals / Follow Up: Delgado Smith DO [Primary Care Provider] - Within 1 Week Abel Flores DO [Med Staff - Active Staff] - 11/13/22 11:00 am (-You will need to follow-up with Dr. Flores with GI in his office upon discharge. Please call his office to schedule your hospital follow-up appointment (ph. [phone])) Disposition Disposition (needs filled in before D/C Order can be placed): Home Health Service
--- NOTE | 2022-09-20 12:46 | DS.PCM_ITS ---
Providers Date of Admission: 09/17/22 Date of Discharge: 09/20/22 Primary Care Physician: Dr. Delgado Smith, Consultations 09/17/22 22:23 Consult: Gastroenterology Routine Consulting Provider: Abel Flores Reason for Consult: Bright red blood per rectum EMERGENT Consult: No MD Notified: Yes Date Notified: 09/17/22 Time Notified: 20:13 Method of Notification: Verbal Comments:: ER DR TALKED TO 09/17/22 23:31 Consult: Onc/Wound/electronics computer mechanic Routine Comment: Reason for Consult:: BACK, HIP, FEET WOUNDS Reason For Visit: BRIGHT RED BLOOD PER RECTUM Diagnosis Discharge Diagnosis (1) ABLA (acute blood loss anemia): Status: Resolved Code(s): D62 - Acute posthemorrhagic anemia (2) Stercoral ulcer of rectum: Status: Acute Code(s): K62.6 - Ulcer of anus and rectum (3) History of hypertension: Status: Acute Code(s): Z86.79 - Personal history of other diseases of the circulatory system (4) H/O coronary artery bypass surgery: Status: Chronic Code(s): Z95.1 - Presence of aortocoronary bypass graft (5) Malignant neoplasm of parotid gland: Status: Acute Code(s): C07 - Malignant neoplasm of parotid gland (6) 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 #Hypertension #Chronic stasis 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: Medications at Discharge Home Medications nitroglycerin 0.4 mg sublingual tablet 0.4 mg sublingual Q5M PRN Cardiac/Chest Pain #25 tabs 10/17/18 pembrolizumab 25 mg/mL intravenous solution (Keytruda) 25 mg IV .UD CANCER 09/13/21 acetaminophen 650 mg rectal suppository 650 mg MT Q4H PRN PRN Fever 08/10/22 tamsulosin 0.4 mg capsule 0.4 mg PO QHS prostate 30 days #30 caps 08/17/22 allopurinol 100 mg tablet 100 mg feeding tube DAILY gout #30 tabs 08/30/22 amlodipine 10 mg tablet 10 mg feeding tube DAILY bp #30 tabs 08/30/22 atorvastatin 40 mg tablet 40 mg feeding tube QHS cholesterol #90 tabs 08/30/22 baclofen 5 mg oral granules in packet 5 mg feeding tube TID PRN Muscle Spasm #90 ea 08/30/22 bisacodyl 10 mg rectal suppository 10 mg MT DAILY PRN Constipation #12 ea 08/30/22 doxazosin 4 mg tablet 4 mg feeding tube QHS BPH 30 days #30 tabs 08/30/22 ergocalciferol (vitamin D2) 1,250 mcg (50,000 unit) capsule 1,250 mcg feeding tube SA SUPPLEMENT #7 caps 08/30/22 oxycodone 10 mg tablet 10 mg feeding tube Q4H PRN Pain 3 days #1 TAB 08/30/22 lisinopril 20 mg tablet 20 mg PO BID HTN 09/09/22 methadone 5 mg tablet 5 mg PO BID PAIN, metastatic CA 09/09/22 carvedilol 12.5 mg tablet 12.5 mg G-tube BID Check with primary doctor 09/17/22 docusate sodium 50 mg/5 mL oral liquid 100 mg G-tube BID Check with primary doctor 09/17/22 hydralazine 50 mg tablet 50 mg feeding tube TID Check with primary doctor 09/17/22 lansoprazole 30 mg capsule,delayed release 30 mg feeding tube DAILY Check with primary doctor 09/17/22 polyethylene glycol 3350 17 gram oral powder packet 17 g G-tube BID Check with primary doctor 09/17/22 furosemide 40 mg tablet 20 mg feeding tube QHS water 30 days #30 tabs 09/20/22 lactulose 20 gram/30 mL oral solution 30 g (45 mL) G-tube TID Check with primary doctor 30 days #4,050 mL 09/20/22 Hospital Course Procedures EGD Summary of Care Provided Minutes Spent on Discharge: 40 Hospital Course: 62y/o M with a significant history of CVA with expressive aphasia; CAD status post stents who presents to the emergency department 09/17/22 w/ [facility]BPR. Recent discharge 09/15 after admission with colonoscopy that demonstrated large stercoral ulcer that was treated endoscopically and felt it was due to his significant constipation in the setting of anticoagulation. He was started on a bowel regimen. did not want placement last visit TCU and patient was denied from TCU and was taken home with home health but history presenting with bright red blood per rectum. He represented with report of significant blood per rectum and GI reconsulted. Additionally CTA obtained to assess for any active bleeding, this demonstrated large amount of stool in the colon and diffuse bony metastasis but was otherwise unrevealing. Aspirin and Eliquis held. Patient had colonoscopy 09/18 which redemonstrated a single bleeding ulcer in the rectum which was injected and treated with heater probe, continue aggressive bowel regimen, discussed with GI and given 3 bleeds in the last 1 month resuming anticoagulation not recommended. Patient's hemoglobin was stable, had 1 spurious hemoglobin of 10.3 with the following 8.5 but the 8.5 was consistent with previous values and no bleeding had been noted, discussed with GI and do not feel patient has new or acute bleed. During his hospitalization I had conversations with his about goals of care and hospice but after extensive discussion she opted for home with home health. Discharge instructions as followed: DISCHARGE INSTRUCTIONS PLEASE READ *Please take this with you to your next doctors appointment* -It is advised you do not continue your aspirin or Eliquis due to recurrent bleeds and high risk of rebleeding -You will need to follow-up with Dr. Flores with GI in his office upon discharge.? Please call his office to schedule your hospital follow-up appointment (ph. [phone]) -Would recommend lab work (CBC) to check your hemoglobin in 2 to 3 days through your primary care physician's office.? Please call their office upon discharge to obtain order for lab work. -Would recommend decreasing your furosemide to 20 mg as he did not appear to be retaining a significant amount of fluid -Lactulose has been increased to 3 times daily through G-tube -Please continue tube feeds. -Diet recommendations: pureed textures/mildly thick liquids w/ supplementation via PEG as needed. -All liquids by teaspoon, small bites, double swallow as needed, slow rate of intake, seated upright for intake. -Will require 1:1 assistance/total feed via tsp d/t upper extremity limitations -Decision to continue Keytruda per oncology -Continue urinary catheter management and wound care -Please call your primary care provider's office upon discharge to schedule a hospital follow up within 1 week. -For any concerning signs or symptoms please call 911 or proceed to the nearest emergency department Physical Exam Narrative General: Resting in bed, expressive aphasia HEENT: Atraumatic Eyes: extraocular movements grossly intact Neck: Supple Respiratory: normal respiratory effort Cardiovascular: Has had the somewhat edematous right arm GI: nondistended Extremities: History of stroke, requires significant support for movement Neuro: History of stroke, requires significant support for movement Psych: Attempts to be cooperative Medical Records Data Medical Nutrition Assessment Dietitian: Malnutrition Criteria Met Start: 09/18/22 08:40 Freq: Status: Active Protocol: Document 09/18/22 08:40 AG (Rec: 09/18/22 08:40 AG [id number]) Nutrition Malnutrition Evidence of Malnutrition Exists Yes Malnutrition (severe): Acute Illness/Injury Evidenced By Suboptimal Energy Intake ( Severe),Weight Loss (Severe) Clinical Problem Acute Disease or Injury Related Malnutrition Etiology severe, acute malnutrition r/t inadequate energy intake d/t recurrent GI bleed Signs/Symptoms as evidenced by unintentional 1.8kg/2.5% wt loss < 1 week; estimated energy needs meeting <50% of estimated energy needs x 5 days Status Active Problem Recommendation Dietitian Recommendations/Changes 1) When medically indicated- Jevity 1.5 250mL bolus 5x/day w/ 90mL H2O flush before and after each bolus to provide 1875 calories, 79 g protein, and 1850mL fluid/day. 1 packet Sujit mixed in 8oz water BID via PEG. 2) Would not advance PO diet without INSPECTING MACHINE ADJUSTER evaluation. Noted INSPECTING MACHINE ADJUSTER consulted. Regular diet- textures/consistency per INSPECTING MACHINE ADJUSTER if appropriate. 3) Daily wts. Weight / BMI Weight Weight: 67.9 kg Body Mass Index (BMI) 20.2 ABG / Lab / Microbiology Data Result Diagrams: 09/20/22 06:15 09/20/22 06:15 Laboratory: Laboratory Results - last 24 hr 09/20/22 06:15: WBC 7.8, RBC 2.97 L, Hgb 8.5 L, Hct 26.6 L, MCV 89.6, MCH 28.6, MCHC 32.0, RDW Std Deviation 47.2 H, RDW Coeff of Dipti 14.6, Plt Count 226, MPV 9.9, Immature Gran % (Auto) 0.900, Neut % (Auto) 76.1 H, Lymph % (Auto) 8.4 L, Cobb % (Auto) 11.9 H, Eos % (Auto) 2.3, Baso % (Auto) 0.4, Absolute Neuts (auto) 6.0, Absolute Lymphs (auto) 0.66 L, Nucleated RBC % 0 09/20/22 06:15: Sodium 138, Potassium 3.8, Chloride 105, Carbon Dioxide 27.0, Anion Gap 6, BUN 19 H, Creatinine 0.60 L, Estim Creat Clear Calc 119.45, Est GFR (MDRD) Af Amer 173, Est GFR (MDRD) Non-Af 143, BUN/Creatinine Ratio 31.5 H, Glucose 119 H, Calcium 8.5, Total Bilirubin 0.40, AST 18, ALT 24, Alkaline Phosphatase 145 H, Total Protein 6.5, Albumin 2.2 L, Globulin 4.3 H, Albumin/Globulin Ratio 0.5 L D/C Instructions Discharge Diet: - (CT discharge instructions for recommendations) Meaningful Use Info Meaningful Use Diagnoses (Choose all that apply): None applicable Discharge Plan Admission Admit Date/Time: 09/17/22 20:05 Primary Reason for Your Visit: GI bleed Attending Provider: Ashley Nowak Primary Care Provider: Delgado Smith Consulting Providers: Abel Flores ; Hang Neville Instructions Patient Instructions: Cancer Constipation Tips, ED Lower GI Bleeding (Stable) Additional Instructions / Restrictions: DISCHARGE INSTRUCTIONS PLEASE READ *Please take this with you to your next doctors appointment* -It is advised you do not continue your aspirin or Eliquis due to recurrent bleeds and high risk of rebleeding -You will need to follow-up with Dr. Flores with GI in his office upon discharge. Please call his office to schedule your hospital follow-up appointment (ph. [phone]) -Would recommend lab work (CBC) to check your hemoglobin in 2 to 3 days through your primary care physician's office. Please call their office upon discharge to obtain order for lab work. -Would recommend decreasing your furosemide to 20 mg as he did not appear to be retaining a significant amount of fluid -Lactulose has been increased to 3 times daily through G-tube -Please continue tube feeds. -Diet recommendations: pureed textures/mildly thick liquids w/ supplementation via PEG as needed. -All liquids by teaspoon, small bites, double swallow as needed, slow rate of intake, seated upright for intake. -Will require 1:1 assistance/total feed via tsp d/t upper extremity limitations -Decision to continue Keytruda per oncology -Continue urinary catheter management and wound care -Please call your primary care provider's office upon discharge to schedule a hospital follow up within 1 week. -For any concerning signs or symptoms please call 911 or proceed to the nearest emergency department Discharge Orders/Prescriptions Prescriptions: Continued nitroglycerin 0.4 mg tablet, sublingual 0.4 mg sublingual Q5M PRN (Reason: Cardiac/Chest Pain) Qty: 25 6RF Keytruda 25 mg/mL solution 25 mg IV .UD Rx Instructions: WILL RESTART 11/08/22 acetaminophen 650 mg Suppository 650 mg MT Q4H PRN PRN (Reason: Fever) tamsulosin 0.4 mg capsule 0.4 mg PO QHS 30 Days Qty: 30 0RF atorvastatin 40 mg tablet 40 mg feeding tube QHS Qty: 90 3RF allopurinol 100 mg tablet 100 mg feeding tube DAILY Qty: 30 0RF amlodipine 10 mg tablet 10 mg feeding tube DAILY Qty: 30 0RF Rx Instructions: Hold for SBP less than 130 mmHg bisacodyl 10 mg Suppository 10 mg MT DAILY PRN (Reason: Constipation) Qty: 12 0RF doxazosin 4 mg Tablet 4 mg feeding tube QHS 30 Days Qty: 30 0RF ergocalciferol (vitamin D2) 1,250 mcg (50,000 unit) capsule 1,250 mcg feeding tube SA Qty: 7 0RF Label Comments: TAKE 1 CAPSULE BY MOUTH WEEKLY FOR 90 DAYS Rx Instructions: ONCE A WEEK ON SATURDAYS oxycodone 10 mg tablet 10 mg feeding tube Q4H PRN (Reason: Pain) 3 Days Qty: 1 0RF baclofen 5 mg Granules In Packet 5 mg feeding tube TID PRN (Reason: Muscle Spasm) Qty: 90 0RF lisinopril 20 mg tablet 20 mg PO BID Label Comments: TAKE 1 TABLET BY MOUTH IN THE MORNING AND IN THE EVENING methadone 5 mg tablet 5 mg PO BID docusate sodium 50 mg/5 mL liquid 100 mg G-tube BID carvedilol 12.5 mg tablet 12.5 mg G-tube BID polyethylene glycol 3350 17 gram powder in packet 17 g G-tube BID Rx Instructions: hold for loose stools lansoprazole 30 mg capsule,delayed release(DR/EC) 30 mg feeding tube DAILY hydralazine 50 mg tablet 50 mg feeding tube TID Changed furosemide 40 mg tablet 20 mg feeding tube QHS 30 Days Qty: 30 0RF lactulose 20 gram/30 mL solution 30 g G-tube TID 30 Days Qty: 4050 0RF Discontinued aspirin 81 MG tablet 81 mg feeding tube DAILY Qty: 30 0RF Eliquis 2.5 mg tablet 2.5 mg feeding tube BID Referrals / Follow Up: Delgado Smith DO [Primary Care Provider] - Within 1 Week Abel Flores DO [Med Staff - Active Staff] - 11/13/22 11:00 am (-You will need to follow-up with Dr. Flores with GI in his office upon discharge. Please call his office to schedule your hospital follow-up appointment (ph. [phone])) Disposition Disposition (needs filled in before D/C Order can be placed): Home Health Service Charges/Coding Visit Charges Inpatient E&M: 37637 Disch Hosp >30min
--- NOTE | 2022-09-20 13:51 | CASEMGMT ---
Addendum entered by Erna Shannon 09/20/22 13:57: Pt gave insurance card and states it changed as of 09/13/22. Made copy of card, tc to registration, spoke with Erika requested copies be tubed. Tubed at this time. Original Note: DC instructions and DC summary [facility] to Attentive at this time. RN CM into pt room, provided transportation information given from for medical appts. Pt thankful for this. Ultrasonographer states pt will be picked up at 3:30pm, pt and aware.
[2022-09-20 14:20] VITALS: BP 139/72; PULSE 67; RESP 18; TEMP 36.8; O2SAT 99
== END 2022-09-20 15:28 | disposition home health service (06) | DRG 394 ==
LOC: ED 20:27 → MS3 20:38
PROVIDERS: Anesthesiology; Internal Medicine Gastroenterology; Admitting Provider Hospitalist; Emergency Provider Emergency Medicine; PCP Family Medicine; Visit Provider Internal Medicine
PROC: 0DJD8ZZ Inspection of Lower Intestinal Tract, Via Natural or Artificial Opening Endoscopic (ICD-10-PCS; CPT 45378; principal; 2022-09-18 15:40)
DX: K62.6 Ulcer of anus and rectum (principal); C79.51 Secondary malignant neoplasm of bone; C79.89 Secondary malignant neoplasm of other specified sites; I50.32 Chronic diastolic (congestive) heart failure; I69.351 Hemiplegia and hemiparesis following cerebral infarction affecting right dominant side; E87.1 Hypo-osmolality and hyponatremia; K62.5 Hemorrhage of anus and rectum; L89.102 Pressure ulcer of unspecified part of back, stage 2; I48.91 Unspecified atrial fibrillation; I11.0 Hypertensive heart disease with heart failure; F10.10 Alcohol abuse, uncomplicated; Z93.1 Gastrostomy status; L89.151 Pressure ulcer of sacral region, stage 1; E78.5 Hyperlipidemia, unspecified; I25.10 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of native coronary artery without angina pectoris; I69.391 Dysphagia following cerebral infarction; I87.2 Venous insufficiency (chronic) (peripheral); I69.320 Aphasia following cerebral infarction; K59.09 Other constipation; C44.320 Squamous cell carcinoma of skin of unspecified parts of face; Y90.9 Presence of alcohol in blood, level not specified; R79.89 Other specified abnormal findings of blood chemistry; R13.12 Dysphagia, oropharyngeal phase; Z95.1 Presence of aortocoronary bypass graft; Z68.20 Body mass index [BMI] 20.0-20.9, adult; Z79.01 Long term (current) use of anticoagulants; Z79.82 Long term (current) use of aspirin; Z79.891 Long term (current) use of opiate analgesic; Z79.899 Other long term (current) drug therapy
CPT/HCPCS: 36415; 74174; 74230; 80048; 80053; 83036; 83605; 83735; 84100; 84443; 85014; 85018; 85025; 85610; 85730; 86850; 86900; 86901; 86920; 92526; 92610; 92611; 93005; 97163; 97166; 97802; 99285; J7030; J7040; J7050; P9016; Q9967; A4216; J0612; J2405; J2916

== ENCOUNTER 2022-12-05 11:18 | Emergency (ER) | payer MEDICARE, MEDICAID, SELFPAY ==
[2022-12-05 11:20] VITALS: BP 138/38; PULSE 74; RESP 16; TEMP 36.8; O2SAT 98; BMI 22.6
--- NOTE | 2022-12-05 11:58 | CT_ITS ---
STUDY: CT ABDOMEN AND PELVIS WITH CONTRAST - URINARY TRACT REASON FOR EXAM: Male, 62 years old. Pain, constipation, question right hip osteomyelitis. RADIATION DOSAGE (If Supplied By Facility): CTDIvol = ( 14.86 ) mGy, DLP = ( 1002.06 ) mGycm TECHNIQUE: IV 100mL Isovue-300 was administered. Transaxial images were obtained from the dome of the diaphragm to the symphysis pubis subsequent to intravenous contrast administration. Multiplanar coronal and sagittal images were reformatted. Individualized Dose Optimization Techniques Were Used For This CT. COMPARISON: Prior studies dated: August 26, 2022 and September 18, 2022 FINDINGS: The visualized lung bases are unremarkable. There are coronary artery calcifications. Normal liver. There is non-visualization of the gallbladder, which may be secondary to either contraction or a prior cholecystectomy. Normal spleen. Normal pancreas. Normal bilateral adrenal glands. Normal visualized stomach. Normal small intestine. There is a moderate amount of stool throughout the colon and rectum. The appendix is visualized and appears normal. There is diffuse atherosclerotic calcification of the abdominal aorta, without a demonstrated aneurysm. There are extensive vascular calcifications. No retroperitoneal adenopathy. Normal right kidney. Normal left kidney. There is a Zhu catheter within the urinary bladder which is incompletely distended. There is bladder wall thickening. There is a focus of air within the urinary bladder likely secondary to instrumentation. There are scattered radiolucencies and sclerotic foci throughout the bones. There are stable postsurgical changes of the visualized lower thoracic spine. There are stable anterior compression deformities of L1 and L2. There is a stable L5 superior endplate fracture. There are degenerative changes of the hips. There is soft tissue fullness posterior to the right greater trochanter. CT/Abdomen/Pelvis W IV Cont ONLY IMPRESSION: Diffuse bone metastases. Stable L1, L2 and L5 compression deformities, may be pathologic fractures. Moderate amount of stool throughout the colon and rectum. Diffuse atherosclerosis. Subcutaneous soft tissue fullness dorsal to the right greater trochanter. Degenerative changes of the hips. Bladder wall thickening, this may be partially secondary to its incompletely distended state however cannot exclude cystitis. Electronically Signed: Carmen Sanders MD at 13:58 EDT ,
--- NOTE | 2022-12-05 12:01 | EX.ED.DYSGE1 ---
HPI History of Present Illness Chief Complaint: Constipation Informant: family Narrative Narrative: History is really through her daughter. Patient/daughter have multiple complaints. The main reason for coming in is that this patient has not had a bowel movement for 2 weeks. He evidently has history of chronic constipation he has small firm bowel movements only. No blood. No report of abdominal pain. No report of intolerance of tube feeds. No vomiting. No fevers. He is on a bowel regimen. She has tried multiple medicines both [id number] and prescription as well as enemas at home with no success other than small amounts of firm stool. Of note, he is also on Lasix. He is also on oxycodone 30 mg 3 times a day now. This is for cancer pain. She is not exactly sure what type of cancer but it started on the right side of his face. It is evidently spread to other areas although those areas are unknown. She is also concerned about decubitus ulcers. He has 1 on the shoulder in the back and 1 on each hip area. The one on the right hip seems to be getting bigger despite care. It sounds like she is providing excellent care at home and really trying to roll him frequently and keep these covered and protected. They were doing well. About a month ago he went to respite care and got a new decubitus on his left hip although that was not as bad. He is cared for at home. He had a very significant stroke earlier this year and has been bedbound since. [facility] Medical History Abdominal pain Acute bronchitis RAFA (acute kidney injury) Alcohol abuse Anemia Aspiration into airway Atherosclerosis of coronary artery without angina pectoris 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galena coronary artery w/angina pectoris Bacteremia Bone cancer Bradycardia Cataracts, both eyes Cerebral arteriosclerosis with history of previous cerebrovascular accident Charcot's joint, left ankle and foot Chronic anemia Chronic anticoagulation Chronic diastolic (congestive) heart failure Chronic pain Diabetes mellitus, type II Diabetic retinopathy Diastolic dysfunction with acute on chronic heart failure Dysphagia Essential hypertension GERD (gastroesophageal reflux disease) Hammer toe of left foot History of embolic stroke HLD (hyperlipidemia) Hyponatremia Infection of left foot Iron deficiency anemia Malignant neoplasm of parotid gland Metastatic squamous cell carcinoma 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 MSSA bacteremia Nephrotic syndrome Neuropathy Non-smoker Normocytic anemia Obesity (BMI 30.0-34.9) Osteomyelitis PAD (peripheral artery disease) Postoperative atrial fibrillation (06/12/18) 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) Secondary pulmonary arterial hypertension Sinus bradycardia Syncope Type 2 diabetes mellitus Ulcer of left foot UTI (urinary tract infection) Home Medications nitroglycerin 0.4 mg sublingual tablet 0.4 mg sublingual Q5M PRN Cardiac/Chest Pain #25 tabs 10/17/18 [Rx Last Taken 08/08/19] pembrolizumab 25 mg/mL intravenous solution (Keytruda) 25 mg IV .UD CANCER 09/13/21 [History Last Taken 06/06/22] acetaminophen 650 mg rectal suppository 650 mg CO Q4H PRN PRN Fever 08/10/22 [History Last Taken Unknown] tamsulosin 0.4 mg capsule 0.4 mg PO QHS prostate 30 days #30 caps 08/17/22 [Rx Last Taken 09/08/22] allopurinol 100 mg tablet 100 mg feeding tube DAILY gout #30 tabs 08/30/22 [Rx Last Taken 09/08/22] amlodipine 10 mg tablet 10 mg feeding tube DAILY bp #30 tabs 08/30/22 [Rx Last Taken 09/09/22] atorvastatin 40 mg tablet 40 mg feeding tube QHS cholesterol #90 tabs 08/30/22 [Rx Last Taken 09/08/22] bisacodyl 10 mg rectal suppository 10 mg CO DAILY PRN Constipation #12 ea 08/30/22 [Rx Last Taken 1 Week Ago ~09/02/22] doxazosin 4 mg tablet 4 mg feeding tube QHS BPH 30 days #30 tabs 08/30/22 [Rx Last Taken 09/08/22] ergocalciferol (vitamin D2) 1,250 mcg (50,000 unit) capsule 1,250 mcg feeding tube SA SUPPLEMENT #7 caps 08/30/22 [Rx Last Taken 09/08/22] oxycodone 10 mg tablet 10 mg feeding tube Q4H PRN Pain 3 days #1 TAB 08/30/22 [Rx Last Taken 09/09/22] methadone 5 mg tablet 5 mg PO BID PAIN, metastatic CA 09/09/22 [History Last Taken 09/09/22] carvedilol 12.5 mg tablet 12.5 mg G-tube BID Check with primary doctor 09/17/22 [History Last Taken Unknown] docusate sodium 50 mg/5 mL oral liquid 100 mg G-tube BID Check with primary doctor 09/17/22 [History Last Taken Unknown] hydralazine 50 mg tablet 50 mg feeding tube TID Check with primary doctor 09/17/22 [History Last Taken Unknown] polyethylene glycol 3350 17 gram oral powder packet 17 g G-tube BID Check with primary doctor 09/17/22 [History Last Taken Unknown] furosemide 40 mg tablet 20 mg (1/2 x 40 mg) feeding tube QHS water 30 days #30 tabs 09/20/22 [Rx Last Taken 09/08/22] lactulose 20 gram/30 mL oral solution 30 g (45 mL) G-tube TID Check with primary doctor 30 days #4,050 mL 09/20/22 [Rx Last Taken Unknown] levofloxacin 750 mg tablet 750 mg PO DAILY #7 tabs 12/05/22 [Rx Last Taken Unknown] lorazepam 0.5 mg tablet 0.5 mg PO Q4H PRN RESTLESSNESS 12/05/22 [History Last Taken Unknown] omeprazole 40 mg capsule,delayed release 40 mg PO DAILY 12/05/22 [History Last Taken Unknown] peg 3350-electrolytes 236 gram-22.74 gram-6.74 gram-5.86 gram solution (Golytely) 240 ml PO Q10M PRN #4,000 mL 12/05/22 [Rx Last Taken Unknown] Allergy/AdvReac Type Severity Reaction Status Date / Time banana Allergy Intermediate Swelling Verified 12/05/22 11:22 Penicillins [PCN] Allergy Unknown Verified 12/05/22 11:22 morphine AdvReac Mild confusion Verified 12/05/22 11:22 Family History Mother Diabetes Parkinson disease Grandmother Cancer Surgical History Amputated toe of left foot (08/2018) H/O coronary artery bypass surgery (06/12/18) H/O eye surgery History of left heart catheterization (05/20/18) Hx of CABG Hx of cholecystectomy S/P meniscectomy Social History household members: spouse Smoking Status: Never smoker alcohol intake: current alcohol intake frequency: a few times a week substance use type: does not use caffeine: No ROS ROS ED ROS Narrative A complete review of systems was performed and is negative except as documented in the history of present illness. Some specific details below. Constitutional: No recent fevers or chills. EYE: No discharge. ENT: No reported major swallowing issues. He still does take some applesauce and meds orally. CV: No chest pain Respiratory: No dyspnea. No coughing. GI: Please see history of present illness. He does have a PEG tube. : No frequency dysuria or hematuria. He has Zhu. Musculoskeletal: No recent trauma. He does have decubitus ulcers as in history of present illness. Skin: No rash. Decubitus ulcers as in HPI Neuro: No new weakness or numbness. Endocrine: No polyuria or polydipsia. EXAM Physical Exam Narrative Exam Narrative: Patient is awake laying in bed calm quiet nontoxic in appearance. HEENT shows no trauma. He does have signs of likely prior excision of skin lesions. Mucous membranes do look a bit dry. Neck is supple Lungs do sound clear. Saturation is 98% on room air showing no hypoxia. Heart is regular. Good peripheral pulses. I hear no murmur. Abdomen is soft it is not distended. It is not tender. He has a PEG tube that looks clean. Urine in the Zhu looks minimally cloudy but no blood. Extremities show edema on the right which has been there a long time. This is the side most affected by a stroke. He has necrotic tip of his left great toe. No apparent deformities. Skin does show dressings with some stage I and II decubitus ulcers near his right shoulder mid spine and left hip area. It is a bit deeper in the spine and the right hip. The right hip makes me concerned that is quite close to bone and greater trochanteric area. There is some erythema. There is no drainage currently but the patient's family did just change his dressings at home. Neurologically he is awake. He will answer simple yes/no questions. But most of his history and detailed history comes through family. He is at his baseline. Const Vital Signs: 12/05/22 11:20 12/05/22 12:56 Temperature 98.2 F Temperature Source Temporal Pulse Rate 74 65 Respiratory Rate 16 19 H Blood Pressure 138/38 H 157/43 H Blood Pressure Mean 71 81 Pulse Ox 98 99 Oxygen Delivery Method Room Air Room Air MDM MDM MDM Narrative Medical decision making narrative: Patient CBC shows minimal elevation of white count at 12.8. This is slightly higher than her. He has mild anemia which is at his baseline. No thrombocytopenia. Electrolytes do show slight dehydration with high BUN to creatinine ratio. He was given a small amount of fluids here. His will increase free fluid is in his PEG tube for a few days. I also noted that his glucose was up a bit. He has had it up before. Generally they control this with diet. But it does rise and fall. I do not think this level requires acute treatment but it does need follow-up. Liver function test showed no marked abnormalities. Urinalysis did show some white cells but no nitrite. Culture will be sent. I discussed options with the . I will write for some GoLytely for him. My independent interpretation of his CAT scan shows no sign of obstruction but does show stool throughout the colon. They also noted diffuse bony metastasis which are known. He is on chronic pain meds for these. Show some thickening in the bladder. But he has chronic indwelling catheter. She does not want him in a nursing facility. I discussed initially and considering admitting him for nursing care but this is not what she wants. She wants to treat him as an outpatient. I think this is a reasonable option. His overall outcome is poor with metastatic cancer and significant stroke. But we will try to manage this. I will give him Keflex for both for the urine findings pending culture but also for the slight inflamed decubitus ulcers. Although they do not show signs of significant abscess or cellulitis, he may develop some benefit from this. We discussed reasons to return and options. Lab Data Attestation: I reviewed the patient's lab results. Labs: Laboratory Results - last 24 hr 12/05/22 12/05/22 12:10 13:00 WBC 12.8 H RBC 3.23 L Hgb 9.0 L Hct 29.1 L MCV 90.1 MCH 27.9 MCHC 30.9 L RDW Std Deviation 45.9 H RDW Coeff of Dipti 14.1 Plt Count 287 MPV 10.5 Immature Gran % (Auto) 1.200 H Neut % (Auto) 80.9 H Lymph % (Auto) 5.5 L Morrill % (Auto) 9.7 Eos % (Auto) 2.3 Baso % (Auto) 0.4 Absolute Neuts (auto) 10.4 H Absolute Lymphs (auto) 0.71 L Nucleated RBC % 0 Sodium 132 L Potassium 4.5 Chloride 96 L Carbon Dioxide 32.0 Anion Gap 4 L BUN 50 H Creatinine 0.85 Estim Creat Clear Calc 88.92 Est GFR (MDRD) Af Amer 116 Est GFR (MDRD) Non-Af 96 BUN/Creatinine Ratio 58.5 H Glucose 230 H Lactic Acid 1.0 Calcium 8.8 Total Bilirubin 0.40 AST 28 ALT 47 Alkaline Phosphatase 168 H Total Protein 7.4 Albumin 2.5 L Globulin 4.9 H Albumin/Globulin Ratio 0.5 L Urine Color Yellow Urine Clarity Sl. Cloudy Urine pH 7.0 Ur Specific [place] 1.005 Urine Protein 15 H Urine Glucose (UA) Normal Urine Ketones Negative Urine Occult Blood 10 H Urine Nitrite Negative Urine Bilirubin Negative Urine Urobilinogen Normal Ur Leukocyte Esterase 500 H Urine RBC 0-5 SEEN Urine WBC 25-50 SEEN Ur Squamous Epith Cells 0 SEEN Urine Bacteria 1+ Urine Mucus 0 SEEN Radiography Diagnostic Testing: Clinical Impression(s) from Imaging Studies Abdomen/Pelvis CT 12/05/22 11:58 IMPRESSION: Diffuse bone metastases. Stable L1, L2 and L5 compression deformities, may be pathologic fractures. Moderate amount of stool throughout the colon and rectum. Diffuse atherosclerosis. Subcutaneous soft tissue fullness dorsal to the right greater trochanter. Degenerative changes of the hips. Bladder wall thickening, this may be partially secondary to its incompletely distended state however cannot exclude cystitis. Electronically Signed: Carmen Sanders MD at 13:58 EDT , Discharge Plan Triage Chief Complaint: Constipation ED Provider: Rosalio Echevarria Dx/Rx/DC Orders Clinical Impression: Hyperglycemia, Decubitus skin ulcer, Cystitis, Constipation Instructions: ED Constipation (Adult) Prescriptions: New peg 3350-electrolytes [Golytely] 236-22.74-6.74 -5.86 gram recon soln 240 ml PO Q10M PRN Qty: 4000 0RF Rx Instructions: until fecal effluent is clear, may place in PEG tube levofloxacin 750 mg tablet 750 mg PO DAILY Qty: 7 0RF No Action nitroglycerin 0.4 mg tablet, sublingual 0.4 mg sublingual Q5M PRN (Reason: Cardiac/Chest Pain) Qty: 25 6RF Keytruda 25 mg/mL solution 25 mg IV .UD Rx Instructions: WILL RESTART 11/08/22 acetaminophen 650 mg Suppository 650 mg CO Q4H PRN PRN (Reason: Fever) tamsulosin 0.4 mg capsule 0.4 mg PO QHS 30 Days Qty: 30 0RF atorvastatin 40 mg tablet 40 mg feeding tube QHS Qty: 90 3RF allopurinol 100 mg tablet 100 mg feeding tube DAILY Qty: 30 0RF amlodipine 10 mg tablet 10 mg feeding tube DAILY Qty: 30 0RF Rx Instructions: Hold for SBP less than 130 mmHg bisacodyl 10 mg Suppository 10 mg CO DAILY PRN (Reason: Constipation) Qty: 12 0RF doxazosin 4 mg Tablet 4 mg feeding tube QHS 30 Days Qty: 30 0RF ergocalciferol (vitamin D2) 1,250 mcg (50,000 unit) capsule 1,250 mcg feeding tube SA Qty: 7 0RF Patient Comments: TAKE 1 CAPSULE BY MOUTH WEEKLY FOR 90 DAYS Rx Instructions: ONCE A WEEK ON SATURDAYS oxycodone 10 mg tablet 10 mg feeding tube Q4H PRN (Reason: Pain) 3 Days Qty: 1 0RF methadone 5 mg tablet 5 mg PO BID docusate sodium 50 mg/5 mL liquid 100 mg G-tube BID carvedilol 12.5 mg tablet 12.5 mg G-tube BID polyethylene glycol 3350 17 gram powder in packet 17 g G-tube BID Rx Instructions: hold for loose stools hydralazine 50 mg tablet 50 mg feeding tube TID furosemide 40 mg tablet 20 mg feeding tube QHS 30 Days Qty: 30 0RF lactulose 20 gram/30 mL solution 30 g G-tube TID 30 Days Qty: 4050 0RF omeprazole 40 mg capsule,delayed release(DR/EC) 40 mg PO DAILY lorazepam 0.5 mg tablet 0.5 mg PO Q4H PRN (Reason: RESTLESSNESS) Patient Comments: TAKE 1 TABLET BY MOUTHWEVERY 4 HOURS NEEDED FOR RESTLESSNESS Primary Care Provider: Care Physician,No Primary Referrals: Care Physician,No Primary [Primary Care Provider] - Disposition Disposition: Home, Self Care
[2022-12-05 12:22] LABS: Absolute Lymphocyte Count 0.71 X10^3/uL (0.83-4.51); Absolute Neutrophil Count 10.4 X10^3/uL (2.0-7.7); Basophil# 0.05 X10^3/uL; Basophil% 0.4 % (0-1); Eosinophil# 0.29 X10^3/uL; Eosinophils% 2.3 % (0-5); Hematocrit 29.1 % (40-54); Lymphocyte # 0.71 X10^3/ul (0.83-4.51); Lymphocyte % 5.5 % (19-41); Mean Corp Hgb Conc 30.9 g/dL (32-36); Mean Corpuscular Hgb 27.9 pg (27.0-32.0); Mean Corpuscular Volume 90.1 fL (80-94); Mean Platelet Vol. 10.5 fl (6.2-12.0); Monocyte# 1.24 X10^3/uL; Monocyte% 9.7 % (0-10); NRBC Flagged by Analyzer 0 % (0-5); Neutrophil # 10.37 X10^3/uL (2.7-7.7); Neutrophil % 80.9 % (47-70); Platelet Count 287 K/mm3 (150-450); RBC Distribution Width CV 14.1 % (11.6-14.6); RBC Distribution Width SD 45.9 fl (35.1-43.9); Red Blood Count 3.23 M/mm3 (4.6-6.2); White Blood Count 12.8 K/mm3 (4.4-11.0)
[2022-12-05 12:39] LABS: ALB/GLOB Ratio 0.5 RATIO (0.9-2.4); AST(SGOT) 28 U/L (15-37); Alanine Aminotransfer ALT/SGPT 47 U/L (16-61); Albumin, Serum 2.5 g/dL (3.2-5.0); Alkaline Phosphatase 168 U/L (45-117); Anion Gap 4 (5-15); BUN 50 mg/dL (7-18); BUN/Creat Ratio 58.5 RATIO (10-20); Calcium,Total 8.8 mg/dL (8.5-10.1); Chloride 96 mmol/L (98-107); Creatinine, Serum 0.85 mg/dL (0.70-1.30); EST Glomerular Filtration Rate 96 mL/min (>60); Est Glom Filt Rate - Afr Amer 116 mL/min (>60); Estimated Creatinine Clearance 88.92 ml/min; Globulin 4.9 g/dL (2.2-4.2); Glucose 230 mg/dL (74-106); Potassium 4.5 mmol/L (3.5-5.1); Protein, Total 7.4 g/dL (6.4-8.2); Sodium Level 132 mmol/L (136-145)
[2022-12-05 12:56] VITALS: BP 157/43; PULSE 65; RESP 19; O2SAT 99
[2022-12-05 13:13] LABS: Mucous, Urine 0 SEEN /hpf (<or=2+); Squamous Epithelial Cells - UA 0 SEEN /hpf (0-5)
[2022-12-05 13:17] LABS: Color, Urine Yellow (Yellow); Glucose, Dipstick Normal (Normal); Ketone-Dipstick Negative (Negative); Leukocyte Esterase-Dipstick 500 /ul (Negative); Nitrite-Dipstick Negative (Negative); Occult Blood-Urine 10 /ul (Negative); Protein-Dipstick 15 mg/dl (Negative); Specific Gravity, Urine 1.005 (1.002-1.030); Urine Bilirubin Dipstick Negative (Negative); Urine Clarity Sl. Cloudy (Clear); Urine Urobilinogen Normal (Normal)
[2022-12-05 13:37] LABS: Bacteria 1+ /hpf (None Seen); Red Blood Cells-Urine 0-5 SEEN /hpf (0-5); White Blood Cells 25-50 SEEN /hpf (0-5)
--- NOTE | 2022-12-05 15:36 | ED.RN ---
ETA 17:30
[2022-12-05] MEDS: oxyCODONE Soln 5 MG/0.25 ML PO.SYRINGE 10 MG PO (16:47)
[2022-12-05 16:51] VITALS: BP 144/70
--- NOTE | 2022-12-05 17:54 | NURSING ---
I CALLED PHYSICIANS TO [facility] ON ETA WHICH WAS SUPPOSED TO BE 15:30 AND THEY SAID IT WOULD BE ANOTHER 20-30 MINUTES
== END 2022-12-05 18:25 | disposition home or self-care (01) ==
PROVIDERS: Emergency Provider Emergency Medicine; Visit Provider Emergency Medicine
DX: E11.65 Type 2 diabetes mellitus with hyperglycemia (principal); E11.622 Type 2 diabetes mellitus with other skin ulcer; L98.429 Non-pressure chronic ulcer of back with unspecified severity; I50.32 Chronic diastolic (congestive) heart failure; I11.0 Hypertensive heart disease with heart failure; E11.40 Type 2 diabetes mellitus with diabetic neuropathy, unspecified; G89.29 Other chronic pain; K59.00 Constipation, unspecified; E78.5 Hyperlipidemia, unspecified; I25.10 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of native coronary artery without angina pectoris; Z79.899 Other long term (current) drug therapy
CPT/HCPCS: 74177; 80053; 81001; 83605; 85025; 87040; 87077; 87086; 87088; 87186; 99285; Q9967

== ENCOUNTER 2022-12-06 08:38 | Emergency (ER) | payer MEDICARE, MEDICAID, SELFPAY ==
[2022-12-06 08:41] VITALS: BP 128/79; PULSE 78; RESP 14; TEMP 36.1; O2SAT 97; BMI 22.0
--- NOTE | 2022-12-06 09:16 | ED.VIS.GI ---
HPI HPI - GI History of Present Illness Chief Complaint: Constipation Informant: patient and spouse/S.O. 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 states has not had a bowel movement in 2 weeks. He was seen in our ER yesterday and had lab work as well as a CT of the abdomen and pelvis. He had a mild leukocytosis but otherwise largely normal work-up. He was prescribed GoLytely. The gave it however he is continue to not have a bowel movement. Prior to this the had tried multiple enemas and suppositories most recently 4 days ago. Nothing seems to be working. She states now she cannot give anything through the PEG tube because his stomach seems to push it out. She is especially concerned because patient's not been able to receive his Ativan or his pain medication and she states she cannot keep watching him suffer. Patient seems to complain of a diffuse abdominal pain but does not appear to be in significant distress at this time. No report of vomiting. No other change from his evaluation yesterday. [facility] Medical History Abdominal pain Acute bronchitis RAFA (acute kidney injury) Alcohol abuse Anemia Aspiration into airway Atherosclerosis of coronary artery without angina pectoris 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[place] coronary artery w/angina pectoris Bacteremia Bone cancer Bradycardia Bradycardia, sinus Cataracts, both eyes Cerebral arteriosclerosis with history of previous cerebrovascular accident Charcot's joint, left ankle and foot Chronic anemia Chronic anticoagulation Chronic diastolic (congestive) heart failure Chronic pain Diabetes mellitus, type II Diabetic retinopathy Diastolic dysfunction with acute on chronic heart failure Dysphagia Essential hypertension GERD (gastroesophageal reflux disease) Hammer toe of left foot History of embolic stroke Hyponatremia Infection of left foot Iron deficiency anemia Malignant neoplasm of parotid gland Metastatic squamous cell carcinoma 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 MSSA bacteremia Nephrotic syndrome Neuropathy Non-smoker Normocytic anemia Obesity (BMI 30.0-34.9) Osteomyelitis PAD (peripheral artery disease) Postoperative atrial fibrillation (06/12/18) 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) Secondary pulmonary arterial hypertension Sinus bradycardia Syncope Type 2 diabetes mellitus Ulcer of left foot UTI (urinary tract infection) Home Medications nitroglycerin 0.4 mg sublingual tablet 0.4 mg sublingual Q5M PRN Cardiac/Chest Pain #25 tabs 10/17/18 [Rx Last Taken 08/08/19] pembrolizumab 25 mg/mL intravenous solution (Keytruda) 25 mg IV .UD CANCER 09/13/21 [History Last Taken 06/06/22] acetaminophen 650 mg rectal suppository 650 mg NV Q4H PRN PRN Fever 08/10/22 [History Last Taken Unknown] tamsulosin 0.4 mg capsule 0.4 mg PO QHS prostate 30 days #30 caps 08/17/22 [Rx Last Taken 09/08/22] allopurinol 100 mg tablet 100 mg feeding tube DAILY gout #30 tabs 08/30/22 [Rx Last Taken 09/08/22] amlodipine 10 mg tablet 10 mg feeding tube DAILY bp #30 tabs 08/30/22 [Rx Last Taken 09/09/22] atorvastatin 40 mg tablet 40 mg feeding tube QHS cholesterol #90 tabs 08/30/22 [Rx Last Taken 09/08/22] bisacodyl 10 mg rectal suppository 10 mg NV DAILY PRN Constipation #12 ea 08/30/22 [Rx Last Taken 1 Week Ago ~09/02/22] doxazosin 4 mg tablet 4 mg feeding tube QHS BPH 30 days #30 tabs 08/30/22 [Rx Last Taken 09/08/22] ergocalciferol (vitamin D2) 1,250 mcg (50,000 unit) capsule 1,250 mcg feeding tube SA SUPPLEMENT #7 caps 08/30/22 [Rx Last Taken 09/08/22] oxycodone 10 mg tablet 10 mg feeding tube Q4H PRN Pain 3 days #1 TAB 08/30/22 [Rx Last Taken 09/09/22] methadone 5 mg tablet 5 mg PO BID PAIN, metastatic CA 09/09/22 [History Last Taken 09/09/22] carvedilol 12.5 mg tablet 12.5 mg G-tube BID Check with primary doctor 09/17/22 [History Last Taken Unknown] docusate sodium 50 mg/5 mL oral liquid 100 mg G-tube BID Check with primary doctor 09/17/22 [History Last Taken Unknown] hydralazine 50 mg tablet 50 mg feeding tube TID Check with primary doctor 09/17/22 [History Last Taken Unknown] polyethylene glycol 3350 17 gram oral powder packet 17 g G-tube BID Check with primary doctor 09/17/22 [History Last Taken Unknown] furosemide 40 mg tablet 20 mg (1/2 x 40 mg) feeding tube QHS water 30 days #30 tabs 09/20/22 [Rx Last Taken 09/08/22] lactulose 20 gram/30 mL oral solution 30 g (45 mL) G-tube TID Check with primary doctor 30 days #4,050 mL 09/20/22 [Rx Last Taken Unknown] levofloxacin 750 mg tablet 750 mg PO DAILY #7 tabs 12/05/22 [Rx Last Taken Unknown] lorazepam 0.5 mg tablet 0.5 mg PO Q4H PRN RESTLESSNESS 12/05/22 [History Last Taken Unknown] omeprazole 40 mg capsule,delayed release 40 mg PO DAILY 12/05/22 [History Last Taken Unknown] peg 3350-electrolytes 236 gram-22.74 gram-6.74 gram-5.86 gram solution (Golytely) 240 ml PO Q10M PRN #4,000 mL 12/05/22 [Rx Last Taken Unknown] ciprofloxacin HCl 500 mg tablet (Cipro) 500 mg PO BID #14 tabs 12/06/22 [Rx Last Taken Unknown] lactulose 20 gram/30 mL oral solution 40 g (60 mL) PO TID #3,000 mL 12/06/22 [Rx Last Taken Unknown] Allergy/AdvReac Type Severity Reaction Status Date / Time banana Allergy Intermediate Swelling Verified 12/06/22 08:39 Penicillins [PCN] Allergy Unknown Verified 12/06/22 08:39 morphine AdvReac Mild confusion Verified 12/06/22 08:39 Family History Mother Diabetes Parkinson disease Grandmother Cancer Surgical History Amputated toe of left foot (08/2018) H/O coronary artery bypass surgery (06/12/18) H/O eye surgery History of left heart catheterization (05/20/18) Hx of CABG Hx of cholecystectomy S/P meniscectomy Social History household members: spouse Smoking Status: Never smoker alcohol intake: current alcohol intake frequency: a few times a week substance use type: does not use caffeine: No ROS ROS ED Constitutional Constitutional ED: Denies chills or fever(s) Gastrointestinal Gastrointestinal: Reports abdominal pain and constipation; Denies vomiting Musculoskeletal Musculoskeletal: Reports back pain Neurologic Neurologic: Reports weakness EXAM Physical Exam Const Vital Signs: 12/06/22 08:41 12/06/22 10:39 Temperature 97 F L Temperature Source Temporal Pulse Rate 78 Respiratory Rate 14 14 Blood Pressure 128/79 H Blood Pressure Mean 95 Pulse Ox 97 Oxygen Delivery Method Room Air Constitutional Narrative: Chronically ill-appearing HEENT Reports moist mucous membranes Neck supple Resp normal respiratory effort Cardio regular rate and regular rhythm GI GI Narrative: PEG tube in place, no surrounding drainage or cellulitic changes. Abdomen soft no specific tenderness to palpation.Not significantly distended. Palpation: Negative for guarding, rigid or mass Narrative: Zhu catheter in place Extremity General Extremety ED: Negative for edema General Extremity: Negative for edema Neuro Sensorium / Orientation: alert Motor Exam: general weakness Skin Skin Narrative: Chronic appearing ischemic wounds to the toes present MDM MDM MDM Narrative Medical decision making narrative: Patient evaluated for continued constipation. Constipation seems to be associated with his chronic debility as well as opioid use associated with cancer related pain. Vital signs are normal. Abdomen is soft and nonperitoneal. Patient is given IV pain medication. Went to go and do rectal exam now the patient's been medicated for pain. His lab work is stable. He does have a mild transaminitis which is nonspecific but is not specifically tender in his right upper quadrant. It could be associate with his tube feeds. Bilirubin is normal. Patient is actually had about a cup size soft brown bowel movement. Do not think he is impacted. We will clean him up and consider soapsuds enema to help him have further bowel movement.. Patient is given soapsuds enema. He has further bowel movement even before it is fully infused. He seems to be more comfortable. Will be discharged home. His PEG tube no flushes easily. Will increase his lactulose at home. I did offer the to have the social work case manager come in as she does seem to be dealing with a lot and caring for him and not having enough outpatient resources however she declines. Is giving information for the counseling center for the to use. While waiting for transfer back patient is noted to have positive urine culture from yesterday, possibly Pseudomonas. Patient does have a history of ESBL Pseudomonas infections that have previously been sensitive to fluoroquinolones. Will be placed on Cipro. is informed of this. Lab Data Attestation: I reviewed the patient's lab results. Labs: Laboratory Results - last 24 hr 12/06/22 09:20 WBC 10.2 RBC 2.91 L Hgb 8.4 L Hct 25.4 L MCV 87.3 MCH 28.9 MCHC 33.1 D RDW Std Deviation 46.6 H RDW Coeff of Dipti 14.5 Plt Count 258 MPV 10.1 Immature Gran % (Auto) 1.000 H Neut % (Auto) 79.1 H Lymph % (Auto) 6.4 L Nicholas % (Auto) 11.0 H Eos % (Auto) 2.2 Baso % (Auto) 0.3 Absolute Neuts (auto) 8.0 H Absolute Lymphs (auto) 0.65 L Nucleated RBC % 0 Sodium 138 Potassium 3.5 Chloride 100 Carbon Dioxide 31.0 Anion Gap 7 BUN 34 H Creatinine 0.69 L Estim Creat Clear Calc 112.90 Est GFR (MDRD) Af Amer 149 Est GFR (MDRD) Non-Af 123 BUN/Creatinine Ratio 49.4 H Glucose 129 H Calcium 8.6 Total Bilirubin 0.50 AST 49 H ALT 73 H Alkaline Phosphatase 157 H Total Protein 6.9 Albumin 2.4 L Globulin 4.5 H Albumin/Globulin Ratio 0.5 L Discharge Plan Triage Chief Complaint: Constipation ED Provider: Shireen Quiroz Dx/Rx/DC Orders Clinical Impression: Abdominal pain, Constipation Instructions: ED Constipation (Adult) Prescriptions: New lactulose 20 gram/30 mL solution 40 g PO TID Qty: 3000 0RF ciprofloxacin HCl [Cipro] 500 mg tablet 500 mg PO BID Qty: 14 0RF No Action nitroglycerin 0.4 mg tablet, sublingual 0.4 mg sublingual Q5M PRN (Reason: Cardiac/Chest Pain) Qty: 25 6RF Keytruda 25 mg/mL solution 25 mg IV .UD Rx Instructions: WILL RESTART 11/08/22 acetaminophen 650 mg Suppository 650 mg NV Q4H PRN PRN (Reason: Fever) tamsulosin 0.4 mg capsule 0.4 mg PO QHS 30 Days Qty: 30 0RF atorvastatin 40 mg tablet 40 mg feeding tube QHS Qty: 90 3RF allopurinol 100 mg tablet 100 mg feeding tube DAILY Qty: 30 0RF amlodipine 10 mg tablet 10 mg feeding tube DAILY Qty: 30 0RF Rx Instructions: Hold for SBP less than 130 mmHg bisacodyl 10 mg Suppository 10 mg NV DAILY PRN (Reason: Constipation) Qty: 12 0RF doxazosin 4 mg Tablet 4 mg feeding tube QHS 30 Days Qty: 30 0RF ergocalciferol (vitamin D2) 1,250 mcg (50,000 unit) capsule 1,250 mcg feeding tube SA Qty: 7 0RF Patient Comments: TAKE 1 CAPSULE BY MOUTH WEEKLY FOR 90 DAYS Rx Instructions: ONCE A WEEK ON SATURDAYS oxycodone 10 mg tablet 10 mg feeding tube Q4H PRN (Reason: Pain) 3 Days Qty: 1 0RF methadone 5 mg tablet 5 mg PO BID docusate sodium 50 mg/5 mL liquid 100 mg G-tube BID carvedilol 12.5 mg tablet 12.5 mg G-tube BID polyethylene glycol 3350 17 gram powder in packet 17 g G-tube BID Rx Instructions: hold for loose stools hydralazine 50 mg tablet 50 mg feeding tube TID furosemide 40 mg tablet 20 mg feeding tube QHS 30 Days Qty: 30 0RF lactulose 20 gram/30 mL solution 30 g G-tube TID 30 Days Qty: 4050 0RF omeprazole 40 mg capsule,delayed release(DR/EC) 40 mg PO DAILY lorazepam 0.5 mg tablet 0.5 mg PO Q4H PRN (Reason: RESTLESSNESS) Patient Comments: TAKE 1 TABLET BY MOUTHWEVERY 4 HOURS NEEDED FOR RESTLESSNESS peg 3350-electrolytes [Golytely] 236-22.74-6.74 -5.86 gram recon soln 240 ml PO Q10M PRN Qty: 4000 0RF Rx Instructions: until fecal effluent is clear, may place in PEG tube levofloxacin 750 mg tablet 750 mg PO DAILY Qty: 7 0RF Primary Care Provider: Care Physician,No Primary Referrals: Counseling,Center [Group of Physicians] - As Needed Kolby Ashraf MD [Med Staff - Computer Types[employer]] - As soon as possible Care Physician,No Primary [Primary Care Provider] - Activity Restrictions/Additional Instructions: Increase his lactulose to 60 mL. Continue with the MiraLAX. As we discussed a start doing flushes after he receives medicine or tube feeds. You been given resources for PEG tube. You been given referral for new primary care doctor for him, between insurance and the PCP office the should be a way to arrange for medical transportation for him to get to the office. In addition I do recommend you speak with the counseling center as being the primary language instructor for someone with such severe medical conditions is extremely difficult. In addition, please contact his hospice care to see if there is any way to increase his home health aides or further resources to help you at home. He can receive his regular medications when he gets home. Disposition Disposition: Home, Self Care Discharge Date/Time: 12/06/22 12:16
[2022-12-06] MEDS: HYDROmorphone 0.5 MG/0.5 ML SYRINGE IV (09:26)
[2022-12-06 09:33] LABS: Absolute Lymphocyte Count 0.65 X10^3/uL (0.83-4.51); Basophil# 0.03 X10^3/uL; Basophil% 0.3 % (0-1); Eosinophil# 0.22 X10^3/uL; Eosinophils% 2.2 % (0-5); Hematocrit 25.4 % (40-54); Hemoglobin 8.4 g/dL (13.0-16.5); Lymphocyte # 0.65 X10^3/ul (0.83-4.51); Lymphocyte % 6.4 % (19-41); Mean Corp Hgb Conc 33.1 g/dL (32-36); Mean Corpuscular Hgb 28.9 pg (27.0-32.0); Mean Corpuscular Volume 87.3 fL (80-94); Mean Platelet Vol. 10.1 fl (6.2-12.0); Monocyte# 1.12 X10^3/uL; NRBC Flagged by Analyzer 0 % (0-5); Neutrophil # 8.04 X10^3/uL (2.7-7.7); Neutrophil % 79.1 % (47-70); Platelet Count 258 K/mm3 (150-450); RBC Distribution Width CV 14.5 % (11.6-14.6); RBC Distribution Width SD 46.6 fl (35.1-43.9); Red Blood Count 2.91 M/mm3 (4.6-6.2); White Blood Count 10.2 K/mm3 (4.4-11.0)
[2022-12-06 09:48] LABS: ALB/GLOB Ratio 0.5 RATIO (0.9-2.4); AST(SGOT) 49 U/L (15-37); Alanine Aminotransfer ALT/SGPT 73 U/L (16-61); Albumin, Serum 2.4 g/dL (3.2-5.0); Alkaline Phosphatase 157 U/L (45-117); Anion Gap 7 (5-15); BUN 34 mg/dL (7-18); BUN/Creat Ratio 49.4 RATIO (10-20); Calcium,Total 8.6 mg/dL (8.5-10.1); Chloride 100 mmol/L (98-107); Creatinine, Serum 0.69 mg/dL (0.70-1.30); EST Glomerular Filtration Rate 123 mL/min (>60); Est Glom Filt Rate - Afr Amer 149 mL/min (>60); Globulin 4.5 g/dL (2.2-4.2); Glucose 129 mg/dL (74-106); Potassium 3.5 mmol/L (3.5-5.1); Protein, Total 6.9 g/dL (6.4-8.2); Sodium Level 138 mmol/L (136-145)
[2022-12-06 10:39] VITALS: RESP 14
--- NOTE | 2022-12-06 10:44 | ED.RN ---
educated on importance of flushing peg tube after use. sent home 50cc syringe home that i used to flush the peg to with. states she was never informed about flushing the peg tube.
== END 2022-12-06 12:16 | disposition home or self-care (01) ==
PROVIDERS: Emergency Provider Emergency Medicine; Visit Provider Emergency Medicine
DX: R10.9 Unspecified abdominal pain (principal); I11.0 Hypertensive heart disease with heart failure; I50.32 Chronic diastolic (congestive) heart failure; K59.00 Constipation, unspecified; I25.10 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of native coronary artery without angina pectoris; G89.29 Other chronic pain; K21.9 Gastro-esophageal reflux disease without esophagitis; Z79.899 Other long term (current) drug therapy; Z86.73 Personal history of transient ischemic attack (TIA), and cerebral infarction without residual deficits; Z95.1 Presence of aortocoronary bypass graft
CPT/HCPCS: 80053; 85025; 96374; 99285; A4216